=== PATIENT | male | born 1960 | race Caucasian/White ===

== ENCOUNTER → 2016-03-11 | Outpatient (CLI) | payer OTHER ==
--- NOTE | 2016-03-11 12:43 | XR ---
EXAMINATION TYPE: XR knee limited LT DATE OF EXAM: 03/11/2016 12:01 PM COMPARISON: NONE HISTORY: FINDINGS: Joint spaces are preserved. Osseous structures are intact. No acute fracture seen. IMPRESSION: 1. No acute fracture or dislocation.
== END | disposition home or self-care (01) ==
LOC: RADXRMAIN 11:43
PROVIDERS: ATTEND Family Medicine
DX: M25.562 Pain in left knee (principal)

== ENCOUNTER 2016-04-15 11:16 | Inpatient (IN) | payer OTHER ==
[2016-04-15 11:45] LABS: Glucose,Whole Blood 286 mg/dL (75-99)
[2016-04-15] MEDS ORDERED: ONDANSETRON 4 MG/2 ML VIAL IVP STA (11:49)
[2016-04-15] MEDS ORDERED: SODIUM CHLORIDE 0.9% 1,000 ML IV STA (11:49)
--- NOTE | 2016-04-15 11:52 | ED ---
General Adult HPI - General Chief complaint: Recheck/Abnormal Lab/Rx Stated complaint: Vomiting/high sugar Time Seen by Provider: 04/15/16 11:40 Source: patient, RN notes reviewed Mode of arrival: ambulatory Limitations: no limitations - History of Present Illness Initial comments: This is a 55-year-old male who presents to the emergency department with a past medical history significant for diabetes. Patient states he has been feeling weak and tired and nauseated for a week. Patient states today he started vomiting and felt much weaker. Patient denies any chest pain or palpitations. Patient denies any shortness of breath or difficulty breathing. Patient denies any fever chills or cough. Patient denies any abdominal pain. Patient denies any diarrhea. Patient denies headache patient denies numbness or focal weakness. Patient denies any lightheadedness dizziness or near syncopal episode. Patient denies any dysuria hematuria urinary frequency - Related Data Home Medications Medication Instructions Recorded Confirmed INSULIN LISPRO (humaLOG) [humaLOG See Protocol SQ ACHS 10/14/15 04/15/16 (formulary)] Omeprazole [PriLOSEC] 20 mg PO DAILY 10/14/15 04/15/16 Aspirin EC [Ecotrin Low Dose] 81 mg PO DAILY 11/03/15 04/15/16 Previous Rx's Medication Instructions Recorded Phenytoin Sodium Extended 200 mg PO BID #120 cap 09/01/14 [Dilantin] Simvastatin [Zocor] 20 mg PO HS #30 tab 09/01/14 Insulin NPH [humuLIN N] 30 unit SQ AC-BRKFST #0 11/05/15 Insulin NPH [humuLIN N] 35 unit SQ AC-SUPPER #1 vial 11/05/15 Ondansetron Odt [Zofran Odt] 4 mg PO Q8HR PRN #10 tab 01/28/16 Allergies Allergy/AdvReac Type Severity Reaction Status Date / Time No Known Allergies Allergy Verified 04/15/16 12:03 Review of Systems ROS Statement: Those systems with pertinent positive or pertinent negative responses have been documented in the HPI. ROS Other: All systems not noted in ROS Statement are negative. Past Medical History Past Medical History: Diabetes Mellitus, GERD/Reflux, Hyperlipidemia, Osteoarthritis (OA), Seizure Disorder Additional Past Medical History / Comment(s): Left knee arthritic. 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 Patient is nontoxic and well- hydrated and is in mild distress. ENT: Neck is soft and supple. No significant lymphadenopathy is noted. Oropharynx is clear. Dry mucous membranes no Neck has full range of motion without eliciting any pain. EYES: The sclera were anicteric and conjunctiva were pink and moist. Extraocular movements were intact and pupils were equal round and reactive to light. Eyelids were unremarkable. PULMONARY: Unlabored respirations. Good breath sounds bilaterally. No audible rales rhonchi or wheezing was noted. CARDIOVASCULAR: There is a regular rate and rhythm without any murmurs gallops or rubs. ABDOMEN: Soft and nontender with normal bowel sounds. No palpable organomegaly was noted. There is no palpable pulsatile mass. SKIN: Skin is clear with no lesions or rashes and otherwise unremarkable. NEUROLOGIC: Patient is alert and oriented x3. Cranial nerves II through XII are grossly intact. Motor and sensory are also intact. Normal speech, volume and content. Symmetrical smile. MUSCULOSKELETAL: Normal extremities with adequate strength and full range of motion. No lower extremity swelling or edema. No calf tenderness. LYMPHATICS: No significant lymphadenopathy is noted PSYCHIATRIC: Normal psychiatric evaluation. Limitations: no limitations Course Vital Signs 04/15/16 04/15/16 11:41 13:00 Temperature 97.9 F Pulse Rate 132 H 103 H Respiratory 18 20 Rate Blood Pressure 128/79 114/65 O2 Sat by Pulse 96 95 Oximetry Medical Decision Making - Medical Decision Making EKG shows normal sinus rhythm at 100 bpm [place] interval is 122 QRS is 88 QT interval is 340 QTC is 438. Patient's EKG shows no ST segment elevation or depression no T-wave abnormalities are noted. Patient's acetone was positive bicarb is was 19. Started patient on normal saline couple liters. I also started an infusion of insulin Spoke with Dr. Sweet and he agreed to admit the patient admitted the patient. - Lab Data Result diagrams: 04/15/16 12:10 04/15/16 12:10 Lab Results 04/15/16 04/15/16 04/15/16 Range/Units 11:42 12:10 12:10 WBC 7.8 (3.8-10.6) k/uL RBC 5.57 (4.30-5.90) m/uL Hgb 15.8 (13.0-17.5) gm/dL Hct 48.4 (39.0-53.0) % MCV 87.0 (80.0-100.0) fL MCH 28.4 (25.0-35.0) pg MCHC 32.7 (31.0-37.0) g/dL RDW 12.8 (11.5-15.5) % Plt Count 293 (150-450) k/uL Neutrophils % 80 % Lymphocytes % 14 % Monocytes % 4 % Eosinophils % 1 % Basophils % 1 % Neutrophils # 6.2 (1.3-7.7) k/uL Lymphocytes # 1.1 (1.0-4.8) k/uL Monocytes # 0.3 (0-1.0) k/uL Eosinophils # 0.0 (0-0.7) k/uL Basophils # 0.1 (0-0.2) k/uL Sodium 138 (137-145) mmol/L Potassium 4.5 (3.5-5.1) mmol/L Chloride 99 (98-107) mmol/L Carbon Dioxide 19 L (22-30) mmol/L Anion Gap 20 mmol/L BUN 15 (9-20) mg/dL Creatinine 0.84 (0.66-1.25) mg/dL Est GFR (MDRD) Af Amer >60 (>60 ml/min/1.73 sqM) Est GFR (MDRD) Non-Af >60 (>60 ml/min/1.73 sqM) Glucose 280 H (74-99) mg/dL POC Glucose (mg/dL) 286 H (75-99) mg/dL POC Glu Movie Operator ID Karrie Fuller Calcium 9.9 (8.4-10.2) mg/dL Total Bilirubin 0.7 (0.2-1.3) mg/dL AST 18 (17-59) U/L ALT 29 (21-72) U/L Alkaline Phosphatase 86 (38-126) U/L Total Protein 7.4 (6.3-8.2) g/dL Albumin 4.6 (3.5-5.0) g/dL Amylase 53 (30-110) U/L Lipase 92 (23-300) U/L Acetone, Qual Positive (Negative) Critical Care Time Critical Care Time: Yes Total Critical Care Time: 35 Disposition Clinical Impression: DKA (diabetic ketoacidoses) Disposition: ADMITTED IP TO THIS HOSP Referrals: Lucia Curry MD [Primary Care Provider] - 1-2 days Time of Disposition: 13:39
[2016-04-15 12:36] LABS: Basophils # (A) 0.1 k/uL (0-0.2); Basophils % (A) 1 %; CH 29.7; CHCM 34.3; Eosinophils % (A) 1 %; HCT 48.4 % (39.0-53.0); HDW 2.58; HGB 15.8 gm/dL (13.0-17.5); Luc # (Auto) 0.06; Luc % (Auto) 1; Lymphocytes # (A) 1.1 k/uL (1.0-4.8); Lymphocytes % (A) 14 %; MCH 28.4 pg (25.0-35.0); MCHC 32.7 g/dL (31.0-37.0); Monocytes # (A) 0.3 k/uL (0-1.0); Monocytes % (A) 4 %; Neutrophils # (A) 6.2 k/uL (1.3-7.7); Neutrophils % (A) 80 %; RBC 5.57 m/uL (4.30-5.90); RDW 12.8 % (11.5-15.5); WBC 7.8 k/uL (3.8-10.6); WBC (Perox) 7.29
[2016-04-15 12:52] LABS: ALT 29 U/L (21-72); AST 18 U/L (17-59); Alkaline Phosphatase 86 U/L (38-126); Amylase 53 U/L (30-110); Anion Gap 20 mmol/L; Blood Urea Nitrogen 15 mg/dL (9-20); Calcium 9.9 mg/dL (8.4-10.2); Carbon Dioxide 19 mmol/L (22-30); Chloride 99 mmol/L (98-107); Glucose 280 mg/dL (74-99); Non-African American GFR(MDRD) >60 (>60 ml/min/1.73 sqM); Potassium 4.5 mmol/L (3.5-5.1); Sodium 138 mmol/L (137-145); Total Bilirubin 0.7 mg/dL (0.2-1.3); Total Protein 7.4 g/dL (6.3-8.2)
[2016-04-15] MEDS ORDERED: INSULIN REGULAR 100 UNIT in SODIUM CHLORIDE 0.9% 100 ML IV ONE (13:39)
[2016-04-15] MEDS ORDERED: SODIUM CHLORIDE 0.9% 1,000 ML IV SCH (13:45)
[2016-04-15] MEDS ORDERED: D5-0.45% NACL WITH KCL 20MEQ/L 1,000 ML IV SCH (13:45)
[2016-04-15 14:00] LABS: Glucose,Whole Blood 143 mg/dL (75-99)
[2016-04-15 14:51] LABS: Glucose,Whole Blood 204 mg/dL (75-99)
[2016-04-15 16:14] LABS: Anion Gap 13 mmol/L; Blood Urea Nitrogen 12 mg/dL (9-20); Carbon Dioxide 20 mmol/L (22-30); Chloride 105 mmol/L (98-107); Glucose 150 mg/dL (74-99); Non-African American GFR(MDRD) >60 (>60 ml/min/1.73 sqM); Phosphorous 2.9 mg/dL (2.5-4.5); Potassium 4.2 mmol/L (3.5-5.1); Sodium 138 mmol/L (137-145)
[2016-04-15] MEDS: SODIUM CHLORIDE 0.9% 1,000 ML IV SCH ×2 (16:17→21:27)
[2016-04-15 16:34] LABS: ALT 27 U/L (21-72); AST 16 U/L (17-59); Alkaline Phosphatase 67 U/L (38-126); Calcium 8.4 mg/dL (8.4-10.2); Total Bilirubin 0.5 mg/dL (0.2-1.3); Total Protein 5.9 g/dL (6.3-8.2)
[2016-04-15 16:35] LABS: Glucose,Whole Blood 133 mg/dL (75-99)
[2016-04-15] MEDS: INSULIN LISPRO (humaLOG) 300 UNIT/3 ML VIAL SQ SCH ×2 (17:00→21:27)
[2016-04-15] MEDS ORDERED: INSULIN NPH 300 UNIT/3 ML VIAL SQ SCH (17:30)
--- NOTE | 2016-04-15 17:38 | P.HPIM ---
History of Present Illness H&P Date: 04/15/16 Chief Complaint: Intractable nausea This is a 55-year-old gentleman is currently insulin-dependent diabetic currently uses NPH 30 units in the morning and 35 units at night comes in the hospital with episode of intractable nausea to happen 24 hours prior to admission. pt apparently woke up this morning was able to check his blood glucose levels which were in the 400s. Patient was seen and was noted to have positive ketones. Patient's bicarb was 19 however had low chloride causing a anion gap Bolick acidosis. Patient was admitted in the past for DKA there was some concern over compliance in the past as well. Patient does have some financial difficulty difficulties as patient was recently released from incarceration and currently lives at a long term house. Patient states that he has run out of his insulin at this time. At the time of my examination patient denies having any fevers chills nausea vomiting urinary urgency or frequency or constipation or diarrhea. Review of Systems All systems: negative (Noted in HPI) Past Medical History Past Medical History: Diabetes Mellitus, GERD/Reflux, Hyperlipidemia, Osteoarthritis (OA), Seizure Disorder Additional Past Medical History / Comment(s): Left knee arthritic. 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 Past Anesthesia/Blood Transfusion Reactions: No Reported Reaction Past Psychological History: No Psychological Hx Reported Smoking Status: Never smoker Past Alcohol Use History: None Reported Past Drug Use History: None Reported - Past Family History Father Family Medical History: Diabetes Mellitus, Myocardial Infarction ([place]) Additional Family Medical History / Comment(s): AT AGE 57 Mother Family Medical History: Cancer Medications and Allergies Home Medications Medication Instructions Recorded Confirmed Type INSULIN LISPRO (humaLOG) [humaLOG See Protocol SQ ACHS 10/14/15 04/15/16 History (formulary)] Omeprazole [PriLOSEC] 20 mg PO DAILY 10/14/15 04/15/16 History Aspirin EC [Ecotrin Low Dose] 81 mg PO DAILY 11/03/15 04/15/16 History Allergies Allergy/AdvReac Type Severity Reaction Status Date / Time No Known Allergies Allergy Verified 04/15/16 12:03 Physical Exam Vitals: Vital Signs Temp Pulse Pulse Resp BP BP Pulse Ox 02/07/17 14:30 97.7 F 90 16 119/64 99 04/15/16 14:29 98.3 F 91 20 119/66 96 04/15/16 14:14 98.3 F 04/15/16 13:59 98 20 118/64 95 Intake and Output 04/15/16 04/15/16 04/15/16 06:59 14:59 22:59 Intake Total 1000 240 Balance 1000 240 Intake: IV 1000 Invasive Line 1 1000 Oral 240 Other: Voiding Method Urinal Physical exam Gen. appearance oriented 3 in no distress Neck is supple no JVD Lungs good air entry clear to auscultation no rhonchi or wheezing Heart S1-S2 heard regular rate and rhythm no murmurs appreciated Abdomen is soft nontender no organomegaly bowel sounds are intact Neurologically cranial nerves II-12 grossly intact no focal motor or sensory deficits noted Skin no abnormalities appreciated Results CBC & Chem 7: 04/15/16 12:10 04/15/16 15:33 Labs: Abnormal Lab Results - Last 24 Hours (Table) 04/15/16 04/15/16 04/15/16 Range/Units 13:58 14:47 15:33 Carbon Dioxide 20 L (22-30) mmol/L Creatinine 0.63 L (0.66-1.25) mg/dL Glucose 150 H (74-99) mg/dL POC Glucose (mg/dL) 143 H 204 H (75-99) mg/dL AST 16 L (17-59) U/L Total Protein 5.9 L (6.3-8.2) g/dL 04/15/16 Range/Units 16:22 Carbon Dioxide (22-30) mmol/L Creatinine (0.66-1.25) mg/dL Glucose (74-99) mg/dL POC Glucose (mg/dL) 133 H (75-99) mg/dL AST (17-59) U/L Total Protein (6.3-8.2) g/dL Assessment and Plan Plan: #1 mild diabetic ketoacidosis #2 intractable nausea secondary to above #3 insulin-dependent diabetes #4 history of seizure disorder #5 remote history of tobacco use Plan Patient will have repeat electrolytes. Home regimen will be started. Social work consult has been placed. Diabetic education educator will also be consulted. Patient is currently asymptomatic diet will be restarted. Patient will be given IV fluid resuscitation. We'll need social work to provide the patient with some financial resources for outpatient diabetic supplies. Will likely be discharged in the next 24 hours.
[2016-04-15 20:39] LABS: Glucose,Whole Blood 224 mg/dL (75-99)
[2016-04-15] MEDS ORDERED: ATORVASTATIN 10 MG TAB PO SCH (21:00)
[2016-04-15 21:15] LABS: Anion Gap 11 mmol/L; Blood Urea Nitrogen 10 mg/dL (9-20); Carbon Dioxide 20 mmol/L (22-30); Chloride 105 mmol/L (98-107); Glucose 206 mg/dL (74-99); Non-African American GFR(MDRD) >60 (>60 ml/min/1.73 sqM); Sodium 136 mmol/L (137-145)
[2016-04-15] MEDS: PHENYTOIN SODIUM EXTENDED 100 MG CAP PO SCH (21:27)
[2016-04-15 22:49] LABS: Hemoglobin A1C 12.7 % (4.2-6.1)
[2016-04-16] MEDS: SODIUM CHLORIDE 0.9% 1,000 ML IV SCH ×2 (04:39→13:22)
[2016-04-16 05:58] LABS: Glucose,Whole Blood 54 mg/dL (75-99)
[2016-04-16 06:09] LABS: Appearance,Urine Clear (Clear); Bilirubin,Urine Negative (Negative); Glucose,Urine (UA) 3+ (Negative); Ketones,Urine 1+ (Negative); Leukocyte Esterase,Urine Negative (Negative); Nitrite,Urine Negative (Negative); PH, Urine 5.5 (5.0-8.0); Protein,Urine Negative (Negative); Specific Gravity,Urine 1.009 (1.001-1.035); UA Billing (MACRO vs. MICRO) CHEM; Urobilinogen,Urine <2.0 mg/dL (<2.0)
[2016-04-16 06:23] LABS: Glucose,Whole Blood 145 mg/dL (75-99)
[2016-04-16 06:24] LABS: Basophils # (A) 0.1 k/uL (0-0.2); Basophils % (A) 1 %; CH 29.3; CHCM 33.1; Eosinophils # (A) 0.1 k/uL (0-0.7); Eosinophils % (A) 2 %; HCT 46.9 % (39.0-53.0); HDW 2.49; HGB 15.1 gm/dL (13.0-17.5); Luc # (Auto) 0.23; Luc % (Auto) 4; Lymphocytes # (A) 2.5 k/uL (1.0-4.8); Lymphocytes % (A) 39 %; MCH 28.5 pg (25.0-35.0); MCHC 32.1 g/dL (31.0-37.0); MCV 88.9 fL (80.0-100.0); Mean Platelet Volume 6.6; Monocytes # (A) 0.3 k/uL (0-1.0); Monocytes % (A) 5 %; Neutrophils # (A) 3.1 k/uL (1.3-7.7); Neutrophils % (A) 50 %; RBC 5.28 m/uL (4.30-5.90); WBC 6.3 k/uL (3.8-10.6); WBC (Perox) 6.56
[2016-04-16] MEDS: INSULIN LISPRO (humaLOG) 300 UNIT/3 ML VIAL SQ SCH ×2 (06:33→13:21)
[2016-04-16 06:43] LABS: ALT 35 U/L (21-72); AST 19 U/L (17-59); Alkaline Phosphatase 68 U/L (38-126); Anion Gap 13 mmol/L; Blood Urea Nitrogen 8 mg/dL (9-20); Calcium 8.5 mg/dL (8.4-10.2); Carbon Dioxide 22 mmol/L (22-30); Chloride 108 mmol/L (98-107); Glucose 55 mg/dL (74-99); Non-African American GFR(MDRD) >60 (>60 ml/min/1.73 sqM); Potassium 3.9 mmol/L (3.5-5.1); Sodium 143 mmol/L (137-145); Total Bilirubin 0.5 mg/dL (0.2-1.3); Total Protein 6.1 g/dL (6.3-8.2)
[2016-04-16] MEDS ORDERED: INSULIN NPH 300 UNIT/3 ML VIAL SQ SCH (07:30)
[2016-04-16] MEDS: PHENYTOIN SODIUM EXTENDED 100 MG CAP PO SCH (09:33)
[2016-04-16 11:36] VITALS: BP 125/68; PULSE 76; RESP 16; TEMP 97.1
[2016-04-16 11:37] VITALS: BMI 20.3
[2016-04-16 11:56] LABS: Glucose,Whole Blood 335 mg/dL (75-99)
[2016-04-16 14:51] LABS: Hemoglobin A1C 12.8 % (4.2-6.1)
--- NOTE | 2016-04-16 20:18 | P.DS ---
Providers Date of admission: 04/15/16 13:40 Attending physician: Sánchez Sweet MD Primary care physician: [facility] Course: Chief Complaint: Intractable nausea This is a 55-year-old gentleman is currently insulin-dependent diabetic currently uses NPH 30 units in the morning and 35 units at night comes in the hospital with episode of intractable nausea to happen 24 hours prior to admission. pt apparently woke up this morning was able to check his blood glucose levels which were in the 400s. Patient was seen and was noted to have positive ketones. Patient's bicarb was 19 however had low chloride causing a anion gap Bolick acidosis. Patient was admitted in the past for DKA there was some concern over compliance in the past as well. Patient does have some financial difficulty difficulties as patient was recently released from incarceration and currently lives at a long term house. Patient states that he has run out of his insulin at this time. At the time of my examination patient denies having any fevers chills nausea vomiting urinary urgency or frequency or constipation or diarrhea. On the day of the discharge No symptoms were reported. States to be tolerating diet. Physical exam Gen. appearance oriented 3 in no distress Neck is supple no JVD Lungs good air entry clear to auscultation no rhonchi or wheezing Heart S1-S2 heard regular rate and rhythm no murmurs appreciated Abdomen is soft nontender no organomegaly bowel sounds are intact Neurologically cranial nerves II-12 grossly intact no focal motor or sensory deficits noted Skin no abnormalities appreciated Assessment and Plan Plan: #1 mild diabetic ketoacidosis, improved. sec to non compliance as pt ran out of supplies #2 intractable nausea secondary to above #3 insulin-dependent diabetes #4 history of seizure disorder #5 remote history of tobacco use Discussed importance of compliance. Plan - Discharge Summary New Discharge Prescriptions: Insulin NPH [humuLIN N] 30 unit SQ AC-BRKFST #1 vial Insulin NPH [humuLIN N] 35 unit SQ AC-SUPPER #1 vial Discharge Medication List Phenytoin Sodium Extended [Dilantin] 200 mg PO BID #120 cap 09/01/14 [Rx] Simvastatin [Zocor] 20 mg PO HS #30 tab 09/01/14 [Rx] INSULIN LISPRO (humaLOG) [humaLOG (formulary)] See Protocol SQ ACHS 10/14/15 [ History] Omeprazole [PriLOSEC] 20 mg PO DAILY 10/14/15 [History] Aspirin EC [Ecotrin Low Dose] 81 mg PO DAILY 11/03/15 [History] Ondansetron Odt [Zofran ODT] 4 mg PO Q8HR PRN #10 tab 01/28/16 [Rx] Insulin NPH [humuLIN N] 30 unit SQ AC-BRKFST #1 vial 04/16/16 [Rx] Insulin NPH [humuLIN N] 35 unit SQ AC-SUPPER #1 vial 04/16/16 [Rx] Follow up Appointment(s)/Referral(s): Lucia Curry MD [Primary Care Provider] - 04/18/16 11:15 am Patient Instructions/Handouts: Diabetic Ketoacidosis (DC), Type 1 Diabetes in Adults (DC) Discharge Disposition: HOME WITH HOME HEALTH SERVICES
== END 2016-04-16 16:38 | disposition home or self-care (01) | DRG 639 ==
LOC: EC 11:16 → 6SEL 13:40
PROVIDERS: ADMIT Internal Medicine; ATTEND Internal Medicine
DX: E13.10 Other specified diabetes mellitus with ketoacidosis without coma (principal); E78.5 Hyperlipidemia, unspecified; Z91.19 Patient's noncompliance with other medical treatment and regimen; K21.9 Gastro-esophageal reflux disease without esophagitis; M19.90 Unspecified osteoarthritis, unspecified site; G40.909 Epilepsy, unspecified, not intractable, without status epilepticus; Z79.4 Long term (current) use of insulin; Z83.3 Family history of diabetes mellitus; Z87.891 Personal history of nicotine dependence; Z79.82 Long term (current) use of aspirin; Z79.899 Other long term (current) drug therapy
CPT/HCPCS: 36415; 80051; 80053; 81003; 82009; 82150; 82565; 82947; 83036; 83690; 84100; 84520; 85025; 93005; 96361; 96375; 99291

== ENCOUNTER 2016-11-19 07:31 | Day surgery (SDC) | payer OTHER ==
[2016-11-17 11:40] VITALS: BMI 19.6
[~2016-11-19 07:31] MED LIST: LACTATED RINGERS 1,000 ML IV SCH
[2016-11-19 07:51] VITALS: RESP 16; TEMP 97
[2016-11-19 07:51] LABS: Glucose,Whole Blood 262 mg/dL (75-99)
[2016-11-19] MEDS ORDERED: LIDOCAINE 1% 20 ML VIAL (10MG/ML) FOR IV START INTRADERMA ONE (07:53)
[2016-11-19] MEDS ORDERED: PROPOFOL 10 MG/ML 20 ML VIAL IV ONE (09:06)
--- NOTE | 2016-11-19 09:14 | P.GSHP ---
History of Present Illness H&P Date: 11/19/16 Chief Complaint: Screening colonoscopy Assessment 56-year-old male referred from Dr. Curry. He presents today for screening colonoscopy. He's never had a colonoscopy before. 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 Past Anesthesia/Blood Transfusion Reactions: No Reported Reaction Smoking Status: Never smoker - Past Family History Father Family Medical History: Diabetes Mellitus, Myocardial Infarction ([place]) Additional Family Medical History / Comment(s): AT AGE 57 Mother Family Medical History: Cancer Medications and Allergies Home Medications Medication Instructions Recorded Confirmed Type Cetirizine HCl 10 mg PO DAILY 11/17/16 11/19/16 History Insulin NPH [humuLIN N] 30 unit SQ AC-BID 11/17/16 11/19/16 History Losartan Potassium 100 mg PO DAILY 11/17/16 11/19/16 History Phenytoin Sodium Extended 100 mg PO QID 11/17/16 11/19/16 History [Dilantin] Simvastatin [Zocor] 40 mg PO HS 11/17/16 11/19/16 History metFORMIN HCL [Glucophage] 500 mg PO BID 11/17/16 11/19/16 History Allergies Allergy/AdvReac Type Severity Reaction Status Date / Time No Known Allergies Allergy Verified 11/17/16 11:31 Surgical - Exam Vital Signs Temp Pulse Resp Pulse Ox 97 F L 101 H 16 97 11/19/16 07:48 11/19/16 07:48 11/19/16 07:48 11/19/16 07:48 - General well developed, no distress - Eyes PERRL - ENT normal pinna - Neck no masses - Respiratory normal expansion - Cardiovascular Rhythm: regular - Abdomen Abdomen: soft, non tender Results - Labs Abnormal Lab Results - Last 24 Hours (Table) 11/19/16 Range/Units 07:48 POC Glucose (mg/dL) 262 H (75-99) mg/dL Assessment and Plan Plan: We'll perform screening colonoscopy.
--- NOTE | 2016-11-19 09:24 | P.OP ---
Date of Procedure: 11/19/16 Preoperative Diagnosis: Screening colonoscopy Postoperative Diagnosis: Normal colon Procedure(s) Performed: Colonoscopy Anesthesia: MAC Surgeon: Gerry Gonzalez Pathology: none sent Condition: stable Disposition: PACU Description of Procedure: PROCEDURE: The patient was placed on the endoscopy table in the lateral position. Digital rectal examination was performed which revealed no abnormalities. The prostate was symmetrical without nodules. Flexible colonoscope was then placed in the patient's anus and passed throughout the entire colon. The ileocecal valve was visualized. The cecum, ascending, transverse, descending and sigmoid colon were normal. The rectum was normal as well. There were no masses, polyps or diverticula noted in the entire colon. SUMMARY OF FINDINGS: Normal colonoscopy.
[2016-11-19 09:38] LABS: Glucose,Whole Blood 267 mg/dL (75-99)
[2016-11-19 09:54] VITALS: BP 112/67; PULSE 86
== END 2016-11-19 09:57 | disposition home or self-care (01) ==
LOC: ORWHC2ENDO 07:31
PROVIDERS: ATTEND Surgery
DX: Z12.11 Encounter for screening for malignant neoplasm of colon (principal); E78.5 Hyperlipidemia, unspecified; G40.909 Epilepsy, unspecified, not intractable, without status epilepticus; M19.90 Unspecified osteoarthritis, unspecified site; K21.9 Gastro-esophageal reflux disease without esophagitis; E11.9 Type 2 diabetes mellitus without complications; Z79.84 Long term (current) use of oral hypoglycemic drugs; Z79.4 Long term (current) use of insulin; Z79.899 Other long term (current) drug therapy; Z82.49 Family history of ischemic heart disease and other diseases of the circulatory system
CPT/HCPCS: J2704; G0121; 45378

== ENCOUNTER → 2016-12-29 | Outpatient (CLI) | payer OTHER ==
[2016-12-29 15:23] LABS: Basophils # (A) 0.1 k/uL (0-0.2); Basophils % (A) 1 %; CH 30.4; CHCM 33.5; Eosinophils # (A) 0.1 k/uL (0-0.7); Eosinophils % (A) 1 %; HCT 45.7 % (39.0-53.0); Luc # (Auto) 0.12; Luc % (Auto) 2; Lymphocytes # (A) 1.3 k/uL (1.0-4.8); Lymphocytes % (A) 20 %; MCHC 32.9 g/dL (31.0-37.0); MCV 91.1 fL (80.0-100.0); Mean Platelet Volume 6.9; Monocytes # (A) 0.4 k/uL (0-1.0); Monocytes % (A) 6 %; Neutrophils # (A) 4.7 k/uL (1.3-7.7); Neutrophils % (A) 71 %; RBC 5.01 m/uL (4.30-5.90); RDW 12.6 % (11.5-15.5); WBC 6.6 k/uL (3.8-10.6); WBC (Perox) 6.07
[2016-12-29 15:26] LABS: ALT 27 U/L (21-72); AST 15 U/L (17-59); Alkaline Phosphatase 103 U/L (38-126); Anion Gap 11 mmol/L; Blood Urea Nitrogen 15 mg/dL (9-20); Calcium 9.9 mg/dL (8.4-10.2); Carbon Dioxide 26 mmol/L (22-30); Chloride 95 mmol/L (98-107); Non-African American GFR(MDRD) >60 (>60 ml/min/1.73 sqM); Potassium 4.7 mmol/L (3.5-5.1); Sodium 132 mmol/L (137-145); Total Bilirubin 0.4 mg/dL (0.2-1.3); Total Protein 6.8 g/dL (6.3-8.2)
[2016-12-29 15:40] LABS: Glucose 464 mg/dL (74-99)
== END | disposition home or self-care (01) ==
LOC: LABWHC1 14:42
PROVIDERS: ATTEND Nurse Practitioner Acute Care
DX: G40.909 Epilepsy, unspecified, not intractable, without status epilepticus (principal); E55.9 Vitamin D deficiency, unspecified; R41.3 Other amnesia
CPT/HCPCS: 36415; 80053; 80185; 82306; 85025

== ENCOUNTER 2017-01-27 11:22 | Emergency (ER) | payer OTHER ==
--- NOTE | 2017-01-27 12:12 | ED ---
Psych HPI - General Chief Complaint: Psychiatric Symptoms Stated Complaint: Mental Health Time Seen by Provider: 01/27/17 11:29 Source: patient, RN notes reviewed Mode of arrival: ambulatory Limitations: no limitations - History of Present Illness Initial Comments: This is a 56-year-old male presents emergency Department with chief complaint of depression suicidal thoughts. His been having worsening depression with suicidal thoughts over the last month. . Patient states he has not tried to harm himself. Patient states that he is very depressed because of his health conditions and states that he cannot help with social security. Patient denies any physical harm at this time denies illicit drug use or alcohol abuse. - Related Data Home Medications Medication Instructions Recorded Confirmed Losartan Potassium 100 mg PO DAILY 11/17/16 01/27/17 Phenytoin Sodium Extended 200 mg PO BID 11/17/16 01/27/17 [Dilantin] Simvastatin [Zocor] 40 mg PO HS 11/17/16 01/27/17 metFORMIN HCL [Glucophage] 500 mg PO BID 11/17/16 01/27/17 Insulin NPH Human Isophane 20 unit SQ AC-SUPPER 01/27/17 01/27/17 [NovoLIN N] Insulin NPH Human Isophane 30 unit SQ AC-BRKFST 01/27/17 01/27/17 [NovoLIN N] Allergies Allergy/AdvReac Type Severity Reaction Status Date / Time No Known Allergies Allergy Verified 01/27/17 11:42 Review of Systems ROS Statement: Those systems with pertinent positive or pertinent negative responses have been documented in the HPI. ROS Other: All systems not noted in ROS Statement are negative. 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 Absent: scleral icterus, conjunctival injection, periorbital swelling ENT exam: Present: normal exam, normal oropharynx, mucous membranes moist, TM's normal bilaterally, normal external ear exam Neck exam: Present: normal inspection, full ROM. Absent: tenderness, meningismus, lymphadenopathy Respiratory exam: Present: normal lung sounds bilaterally. Absent: respiratory distress, wheezes, rales, rhonchi, stridor Cardiovascular Exam: Present: regular rate, normal rhythm, normal heart sounds. Absent: systolic murmur, diastolic murmur, rubs, gallop, clicks Back exam: Absent: CVA tenderness (R), CVA tenderness (L) Neurological exam: Present: alert, oriented X3, CN II-XII intact Psychiatric exam: Present: depressed Skin exam: Present: warm, dry, intact, normal color. Absent: rash Course Vital Signs 01/27/17 11:25 Temperature 98.3 F Pulse Rate 121 H Respiratory 18 Rate Blood Pressure 135/63 O2 Sat by Pulse 99 Oximetry Medical Decision Making - Medical Decision Making 56-year-old male presented for psychiatric evaluation. Patient does have depression. Patient states that he has is because he cannot get Social Security. Patient states he came in to try to obtain Social Security not that he actually wants to harm himself. Patient will be discharged return parameters were discussed. - Lab Data Lab Results 01/27/17 Range/Units 12:25 Urine Opiates Screen Not Detected (NotDetected) Ur Oxycodone Screen Not Detected (NotDetected) Urine Methadone Screen Not Detected (NotDetected) Ur Propoxyphene Screen Not Detected (NotDetected) Ur Barbiturates Screen Detected H (NotDetected) U Tricyclic Antidepress Not Detected (NotDetected) Ur Phencyclidine Scrn Not Detected (NotDetected) Ur Amphetamines Screen Not Detected (NotDetected) U Methamphetamines Scrn Not Detected (NotDetected) U Benzodiazepines Scrn Not Detected (NotDetected) Urine Cocaine Screen Not Detected (NotDetected) U Marijuana (THC) Screen Not Detected (NotDetected) Disposition Clinical Impression: Depression Disposition: HOME SELF-CARE Condition: Stable Instructions: Depression (ED) Additional Instructions: Please return to the Emergency Department if symptoms worsen or any other concerns. Referrals: Yaw Manzanares MD [Primary Care Provider] - 1-2 days Time of Disposition: 14:24
[2017-01-27 15:33] VITALS: BP 138/80; PULSE 100; RESP 20; TEMP 98.6
== END 2017-01-27 15:33 | disposition home or self-care (01) ==
LOC: EC 11:22
DX: F32.9 Major depressive disorder, single episode, unspecified (principal); E11.9 Type 2 diabetes mellitus without complications; E78.5 Hyperlipidemia, unspecified; Z86.69 Personal history of other diseases of the nervous system and sense organs; Z79.4 Long term (current) use of insulin; Z79.899 Other long term (current) drug therapy
CPT/HCPCS: 80306; 82075; 99284

== ENCOUNTER 2017-06-04 14:40 | Inpatient (IN) | payer OTHER ==
[2017-06-04] MEDS ORDERED: ONDANSETRON 4 MG/2 ML VIAL IVP PRN (15:15)
[2017-06-04] MEDS: SODIUM CHLORIDE 0.9% 1,000 ML IV SCH (15:40)
--- NOTE | 2017-06-04 16:05 | XR ---
2 view abdomen HISTORY: Nausea and vomiting 2 views of the abdomen, no comparisons Lung bases are clear. There is retained fecal debris present throughout the transverse colon. No evid ent bowel obstruction or pneumoperitoneum. Bone mineralization maintained. IMPRESSION: Nonobstructive bowel gas pattern.
--- NOTE | 2017-06-04 16:06 | XR ---
EXAMINATION TYPE: XR chest 2V DATE OF EXAM: 06/04/2017 COMPARISON: Prior chest 01/28/2016, 10/09/2016 HISTORY: Shortness of breath TECHNIQUE: Frontal and lateral views of the chest are obtained. FINDINGS: There is no focal air space opacity, pleural effusion, or pneumothorax seen. The cardiac silhouette size is within normal limits. The osseous structures are intact. IMPRESSION: No acute cardiopulmonary process.
[2017-06-04 16:29] LABS: Basophils % (A) 0 %; Eosinophils % (A) 0 %; HCT 49.4 % (39.0-53.0); HGB 15.7 gm/dL (13.0-17.5); Lymphocytes # (A) 0.7 k/uL (1.0-4.8); Lymphocytes % (A) 12 %; MCHC 31.9 g/dL (31.0-37.0); MCV 90.9 fL (80.0-100.0); Mean Platelet Volume 7.1; Monocytes # (A) 0.2 k/uL (0-1.0); Monocytes % (A) 3 %; Neutrophils # (A) 4.9 k/uL (1.3-7.7); Neutrophils % (A) 83 %; Platelet Count 364 k/uL (150-450); RBC 5.43 m/uL (4.30-5.90); RDW 12.7 % (11.5-15.5); WBC 5.9 k/uL (3.8-10.6)
[2017-06-04 16:44] LABS: Glucose,Whole Blood 351 mg/dL (75-99)
[2017-06-04 17:09] LABS: ALT 23 U/L (21-72); AST 20 U/L (17-59); Albumin 4.5 g/dL (3.5-5.0); Alkaline Phosphatase 98 U/L (38-126); Anion Gap 28 mmol/L; Blood Urea Nitrogen 19 mg/dL (9-20); Calcium 9.9 mg/dL (8.4-10.2); Carbon Dioxide 12 mmol/L (22-30); Chloride 96 mmol/L (98-107); Glucose 357 mg/dL (74-99); Sodium 136 mmol/L (137-145); Total Bilirubin 0.4 mg/dL (0.2-1.3); Total Protein 7.1 g/dL (6.3-8.2)
[2017-06-04] MEDS: INSULIN NPH 300 UNIT/3 ML VIAL SQ SCH (17:18)
[2017-06-04] MEDS: INSULIN ASPART 100 UNIT/ML 1 ML 10 ML VIAL SQ SCH ×2 (17:18→22:13)
[2017-06-04 21:10] LABS: Glucose,Whole Blood 218 mg/dL (75-99)
[2017-06-04] MEDS: PHENYTOIN SODIUM EXTENDED 100 MG CAP PO SCH (22:06)
[2017-06-04] MEDS: ATORVASTATIN 20 MG TAB PO SCH (22:07)
[2017-06-04] MEDS: metFORMIN 500 MG TAB PO SCH (22:07)
[2017-06-05] MEDS: SODIUM CHLORIDE 0.9% 1,000 ML IV SCH ×3 (00:20→21:56)
[2017-06-05 03:29] LABS: Hemoglobin A1C 15.5 % (4.0-6.0)
[2017-06-05] MEDS ORDERED: DEXTROSE 50%-WATER 50 ML SYRINGE IVP ONE (07:14)
[2017-06-05] MEDS: INSULIN ASPART 100 UNIT/ML 1 ML 10 ML VIAL SQ SCH ×4 (07:21→21:04)
[2017-06-05] MEDS: INSULIN NPH 300 UNIT/3 ML VIAL SQ SCH ×2 (07:21→18:06)
[2017-06-05 07:35] LABS: Glucose,Whole Blood 45 mg/dL (75-99)
[2017-06-05 07:35] LABS: Glucose,Whole Blood 168 mg/dL (75-99)
[2017-06-05 07:35] LABS: Glucose,Whole Blood 43 mg/dL (75-99)
[2017-06-05] MEDS: metFORMIN 500 MG TAB PO SCH ×2 (08:05→21:08)
[2017-06-05] MEDS: PHENYTOIN SODIUM EXTENDED 100 MG CAP PO SCH ×2 (08:05→21:08)
[2017-06-05] MEDS: LOSARTAN 50 MG TAB PO SCH (08:05)
[2017-06-05 10:04] LABS: Glucose,Whole Blood 333 mg/dL (75-99)
--- NOTE | 2017-06-05 10:31 | P.GSCN ---
History of Present Illness Consult date: 06/05/17 Reason for Consult: 57-year-old male seen at the request of the attending for a surgical eval patient is a poor historian has poor past medical history recall states he was seen in his PCPs office couple days before for routine checkup and everything was fine" he stated yesterday that was a message left on his answering machine that he needed to come to his PCPs office because his blood sugar was elevated patient stated he did not have any abdominal pain no nausea vomiting. Went to the office was told his blood sugar was in the 600s and he needed to be admitted to the hospital. patient currently is resting comfortably in bed and is adamant that he has not had any abdominal pain denies dizziness lightheadedness and states a nausea sensation has subsided. The blood sugar at 7 AM this morning was down to 43 in which this was treated. Currently is 333. Patient states he does have a glucometer at home when he does check his blood sugars periodically. D-dimer was not elevated 0.19 patient states to his knowledge doesn't have any surgical history. past medical history hyperlipidemia, osteoarthritis, seizure disorder, type 2 diabetes Review the computerized record indicated in November 2016 patient did have a colonoscopy it's showed a normal colon this was done by Dr. reyes. 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 Past Anesthesia/Blood Transfusion Reactions: No Reported Reaction Past Psychological History: No Psychological Hx Reported Smoking Status: Never smoker Past Alcohol Use History: None Reported Past Drug Use History: None Reported - Past Family History Father Family Medical History: Diabetes Mellitus, Myocardial Infarction ([place]) Additional Family Medical History / Comment(s): AT AGE 57 Mother Family Medical History: Cancer Medications and Allergies Home Medications Medication Instructions Recorded Confirmed Type Losartan Potassium 100 mg PO DAILY 11/17/16 06/04/17 History Phenytoin Sodium Extended 200 mg PO BID 11/17/16 06/04/17 History [Dilantin] Simvastatin [Zocor] 40 mg PO HS 11/17/16 06/04/17 History metFORMIN HCL [Glucophage] 500 mg PO BID 11/17/16 06/04/17 History Insulin NPH Human Isophane 20 unit SQ AC-SUPPER 01/27/17 06/04/17 History [NovoLIN N] Insulin NPH Human Isophane 30 unit SQ AC-BRKFST 01/27/17 06/04/17 History [NovoLIN N] Allergies Allergy/AdvReac Type Severity Reaction Status Date / Time No Known Allergies Allergy Verified 06/04/17 15:18 Surgical - Exam Vital Signs Temp Pulse Resp BP Pulse Ox 98.5 F 130 H 18 131/65 95 06/04/17 15:00 06/04/17 15:00 06/04/17 15:00 06/04/17 15:00 06/04/17 15:00 GENERAL APPEARANCE: 57-year-old male patient is alert, oriented, in no acute distress. VITAL SIGNS: reviewed HEENT: Head is normocephalic and atraumatic. Pupils are equal and reactive. The nares are patent. Oropharynx is clear without lesions. NECK: Supple without lymphadenopathy. Traches midline. HEART: S1, S2. Regular rate and rhythm. denying chest pain LUNGS: No crackles or wheezes are heard. no shortness of breath ABDOMEN: Soft, flat nontender, nondistended with good bowel sounds. No peritoneal signs. No palpable organomegaly or masses. denying any nausea vomiting denies abdominal pain EXTREMITIES: Normal skin color and turgor. No cyanosis, rash, ulceration, clubbing or edema. Radial pedal pulses are 2/4 bilaterally. NEUROLOGICAL: No focal deficits. Strength and sensation are grossly intact. Results - Labs 06/04/17 16:13 06/04/17 16:13 Abnormal Lab Results - Last 24 Hours (Table) 06/04/17 06/04/17 06/04/17 Range/Units 16:13 16:13 16:13 Lymphocytes # 0.7 L (1.0-4.8) k/uL Sodium 136 L (137-145) mmol/L Potassium 6.0 H (3.5-5.1) mmol/L Chloride 96 L (98-107) mmol/L Carbon Dioxide 12 L (22-30) mmol/L Glucose 357 H (74-99) mg/dL POC Glucose (mg/dL) (75-99) mg/dL Hemoglobin A1c 15.5 H (4.0-6.0) % 06/04/17 06/04/17 06/05/17 Range/Units 16:40 21:08 07:10 Lymphocytes # (1.0-4.8) k/uL Sodium (137-145) mmol/L Potassium (3.5-5.1) mmol/L Chloride (98-107) mmol/L Carbon Dioxide (22-30) mmol/L Glucose (74-99) mg/dL POC Glucose (mg/dL) 351 H 218 H 45 L (75-99) mg/dL Hemoglobin A1c (4.0-6.0) % 06/05/17 06/05/17 06/05/17 Range/Units 07:11 07:31 09:48 Lymphocytes # (1.0-4.8) k/uL Sodium (137-145) mmol/L Potassium (3.5-5.1) mmol/L Chloride (98-107) mmol/L Carbon Dioxide (22-30) mmol/L Glucose (74-99) mg/dL POC Glucose (mg/dL) 43 L 168 H 333 H (75-99) mg/dL Hemoglobin A1c (4.0-6.0) % Diabetes panel 06/04/17 06/04/17 Range/Units 16:13 16:13 Sodium 136 L (137-145) mmol/L Potassium 6.0 H (3.5-5.1) mmol/L Chloride 96 L (98-107) mmol/L Carbon Dioxide 12 L (22-30) mmol/L BUN 19 (9-20) mg/dL Creatinine 0.84 (0.66-1.25) mg/dL Glucose 357 H (74-99) mg/dL Hemoglobin A1c 15.5 H (4.0-6.0) % Calcium 9.9 (8.4-10.2) mg/dL AST 20 (17-59) U/L ALT 23 (21-72) U/L Alkaline Phosphatase 98 (38-126) U/L Total Protein 7.1 (6.3-8.2) g/dL Albumin 4.5 (3.5-5.0) g/dL Calcium panel 06/04/17 Range/Units 16:13 Calcium 9.9 (8.4-10.2) mg/dL Albumin 4.5 (3.5-5.0) g/dL Pituitary panel 06/04/17 Range/Units 16:13 Sodium 136 L (137-145) mmol/L Potassium 6.0 H (3.5-5.1) mmol/L Chloride 96 L (98-107) mmol/L Carbon Dioxide 12 L (22-30) mmol/L BUN 19 (9-20) mg/dL Creatinine 0.84 (0.66-1.25) mg/dL Glucose 357 H (74-99) mg/dL Calcium 9.9 (8.4-10.2) mg/dL Adrenal panel 06/04/17 Range/Units 16:13 Sodium 136 L (137-145) mmol/L Potassium 6.0 H (3.5-5.1) mmol/L Chloride 96 L (98-107) mmol/L Carbon Dioxide 12 L (22-30) mmol/L BUN 19 (9-20) mg/dL Creatinine 0.84 (0.66-1.25) mg/dL Glucose 357 H (74-99) mg/dL Calcium 9.9 (8.4-10.2) mg/dL Total Bilirubin 0.4 (0.2-1.3) mg/dL AST 20 (17-59) U/L ALT 23 (21-72) U/L Alkaline Phosphatase 98 (38-126) U/L Total Protein 7.1 (6.3-8.2) g/dL Albumin 4.5 (3.5-5.0) g/dL Assessment and Plan Assessment: impression Present on admission nausea vomiting diarrhea suspect gastroenteritis Present on admission hyperglycemia a screening colonoscopy done November 2016 normal history of a seizure disorder history of esophageal reflux disease hyperlipidemia plan no evidence of an acute surgical abdomen defer to the attending for medical issues DVT and GI prophylaxis attempt to optimize glycemic control reinforce diabetic education will follow with you surgical consultation note dictated for dr reyes The above impression and plan of care have been discussed and directed by signing physician. Vidya Ta nurse practitioner acting as scribe for signing physician.
[2017-06-05 10:46] LABS: Basophils % (A) 1 %; Eosinophils % (A) 1 %; HCT 41.4 % (39.0-53.0); HGB 13.4 gm/dL (13.0-17.5); Lymphocytes # (A) 1.4 k/uL (1.0-4.8); Lymphocytes % (A) 24 %; MCH 28.9 pg (25.0-35.0); MCHC 32.5 g/dL (31.0-37.0); MCV 88.9 fL (80.0-100.0); Monocytes # (A) 0.3 k/uL (0-1.0); Monocytes % (A) 5 %; Neutrophils # (A) 3.9 k/uL (1.3-7.7); Neutrophils % (A) 68 %; Platelet Count 297 k/uL (150-450); RBC 4.66 m/uL (4.30-5.90); RDW 12.5 % (11.5-15.5); WBC 5.8 k/uL (3.8-10.6)
[2017-06-05 11:27] LABS: ALT 16 U/L (21-72); AST 16 U/L (17-59); Albumin 3.1 g/dL (3.5-5.0); Alkaline Phosphatase 62 U/L (38-126); Anion Gap 17 mmol/L; Blood Urea Nitrogen 14 mg/dL (9-20); Calcium 8.7 mg/dL (8.4-10.2); Carbon Dioxide 19 mmol/L (22-30); Chloride 98 mmol/L (98-107); Glucose 323 mg/dL (74-99); Potassium 4.2 mmol/L (3.5-5.1); Sodium 134 mmol/L (137-145); Total Bilirubin 0.2 mg/dL (0.2-1.3); Total Protein 5.4 g/dL (6.3-8.2)
[2017-06-05 11:41] VITALS: BMI 16.8
--- NOTE | 2017-06-05 11:43 | HP ---
HISTORY AND PHYSICAL CHIEF COMPLAINT: A 57-year-old white male with abdominal pain, nausea, vomiting, dehydration, early DKA and hypoxemia, was admitted to the hospital due to shortness of breath and nausea, vomiting, dehydration, dizziness with any ambulation. He is admitted for possible DKA and abdominal pain and hypoxemia of unclear etiology. Consults are pending. His sugar was 666 one day prior to admission. He is noncompliant as an outpatient with his type 1 diabetes. CURRENT MEDICINES: 1. Dilantin 200 b.i.d. for seizures. 2. Metformin 500 b.i.d. 3. Losartan 100 daily. 4. NPH insulin 30 units subcu a.c. breakfast and 20 units a.c. supper and he is protocol at home. 5. Lipitor 20 mg daily. PAST MEDICAL HISTORY: No history of COPD or any hypoxemia in the past. Nausea and vomiting is new, also. 14 POINT REVIEW OF SYSTEMS: Negative except for as mentioend in HPI. VITALS: His oxygen levels 92 on room air in my office, blood pressure is 100 to 125/50s to 70s, respiratory 18 to 20, pulse rate is 99 to 100, temp 97 to 98. CARDIOVASCULAR: S1, S2. LUNGS: Show scattered wheeze. Decreased breath sounds. ENDOCRINE: He is thin, cachectic. PSYCH: Fair mood and affect. NEUROLOGIC: Alert and oriented x3. INTEGUMENT: Poor skin, turgor. Dry mucous membranes. VASCULAR: Normal dorsalis pedis, posterior tibial pulse. ASSESSMENT: 1. Hypoxemia, unclear etiology. 2. Early diabetic ketoacidosis, uncontrolled diabetes mellitus. 3. Acute abdominal pain of unclear etiology. 4. Dehydration. IV fluids will be given, nausea medicines will be given. Multiple tests will be ordered. Waiting for consultation for vomiting and dehydration. Rule out DKA. MMODL / IJN: [id number] /
[2017-06-05 12:01] LABS: Glucose,Whole Blood 337 mg/dL (75-99)
[2017-06-05] MEDS ORDERED: ACETAMINOPHEN TAB 325 MG TAB PO PRN (12:50)
[2017-06-05 15:31] LABS: Appearance,Urine Clear (Clear); Bilirubin,Urine Negative (Negative); Blood,Urine Negative (Negative); Color,Urine Light Yellow; Glucose,Urine (UA) 4+ (Negative); Leukocyte Esterase,Urine Negative (Negative); Nitrite,Urine Negative (Negative); PH, Urine 5.5 (5.0-8.0); Protein,Urine Negative (Negative); Specific Gravity,Urine 1.025 (1.001-1.035); Urobilinogen,Urine <2.0 mg/dL (<2.0)
[2017-06-05 16:00] LABS: Ketones,Urine 2+ (Negative)
[2017-06-05 17:10] LABS: Glucose,Whole Blood 296 mg/dL (75-99)
[2017-06-05 20:39] LABS: Glucose,Whole Blood 248 mg/dL (75-99)
--- NOTE | 2017-06-05 21:04 | P.CNPUL ---
History of Present Illness Consult date: 06/05/17 Reason for consult: dyspnea, cough, hypoxemia Chief complaint: Shortness of breath and hypoxia and office History of present illness: 57-year-old nonsmoker with history of dyslipidemia insulin-dependent type 1 diabetes mellitus he has a been noted to have a sugar in 600 at primary care's office advised to be admitted into the hospital there was some complains of shortness of breath and an hypoxia in the office, however currently patient denies any chest pain denies any shortness of breath or breathing difficulty he feels much better he did have a significant improvement of the blood sugar with a transient episode of hypoglycemia he is the breathing comfortably denies any chest pain or cough or sputum production he does have a history of snoring off and on and sleepiness during the day he has not been evaluated for a sleep disorder breathing and sleep apnea in the past, his chest x-ray abdominal x-ray unremarkable blood sugar however remains in 200-300 range his hemoglobin A1c is 15.5 he was hypercarbic Danielle make with a potassium level of 6 and CO2 of only 19 suggestive of developing diabetic ketoacidosis however improved now with rehydration and insulin therapy I suspect hypoxia and shortness of breath was related to developing diabetic ketoacidosis and severe metabolic acidosis which however has improved now as noted on laboratory data as well as by clinical exam Review of Systems All systems: negative 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 Past Anesthesia/Blood Transfusion Reactions: No Reported Reaction Past Psychological History: No Psychological Hx Reported Smoking Status: Never smoker Past Alcohol Use History: None Reported Past Drug Use History: None Reported - Past Family History Father Family Medical History: Diabetes Mellitus, Myocardial Infarction ([place]) Additional Family Medical History / Comment(s): AT AGE 57 Mother Family Medical History: Cancer Medications and Allergies Home Medications Medication Instructions Recorded Confirmed Type Losartan Potassium 100 mg PO DAILY 11/17/16 06/04/17 History Phenytoin Sodium Extended 200 mg PO BID 11/17/16 06/04/17 History [Dilantin] Simvastatin [Zocor] 40 mg PO HS 11/17/16 06/04/17 History metFORMIN HCL [Glucophage] 500 mg PO BID 11/17/16 06/04/17 History Insulin NPH Human Isophane 20 unit SQ AC-SUPPER 01/27/17 06/04/17 History [NovoLIN N] Insulin NPH Human Isophane 30 unit SQ AC-BRKFST 01/27/17 06/04/17 History [NovoLIN N] Allergies Allergy/AdvReac Type Severity Reaction Status Date / Time No Known Allergies Allergy Verified 06/04/17 15:18 Physical Exam Vitals: Vital Signs Temp Pulse Resp BP Pulse Ox 06/05/17 15:03 97.8 F 103 H 19 105/88 97 06/05/17 11:06 113/61 06/05/17 08:25 97.8 F 06/05/17 07:00 99 18 106/54 98 06/05/17 00:00 20 06/04/17 23:30 97.3 F L 101 H 20 125/74 95 Intake and Output 06/05/17 06/05/17 06/05/17 06:59 14:59 22:59 Intake Total 100 Balance 100 Intake: Oral 100 Other: # Voids 1 3 # Bowel Movements 0 Weight 40.5 kg - Constitutional General appearance: disheveled, no acute distress, thin - EENT Eyes: anicteric sclerae, EOMI, PERRLA, normal appearance Ears: bilateral: normal - Neck Neck: normal ROM Carotids: bilateral: upstroke normal, bruit absent Thyroid: bilateral: normal size - Respiratory Respiratory: bilateral: CTA, negative: diminished, dullness, rales, rhonchi, wheezing, prolonged expiration, prolonged inspiration - Cardiovascular Heart sounds: normal: S1, S2 - Gastrointestinal General gastrointestinal: normal bowel sounds, soft - Integumentary Integumentary: normal, normal turgor - Neurologic Normal exam Neurologic: CNII-XII intact - Musculoskeletal Musculoskeletal: gait normal, generalized weakness, strength equal bilaterally - Psychiatric Psychiatric: A&O x's 3, appropriate affect, intact judgment & insight Results - Laboratory Findings CBC and BMP: 06/05/17 09:14 06/05/17 09:14 PT/INR, D-dimer D-Dimer 0.19 mg/L FEU (<0.60) 06/04/17 17:49 Abnormal lab findings: Abnormal Labs 06/04/17 06/04/17 06/04/17 16:13 16:13 16:13 Lymphocytes # 0.7 L Sodium 136 L Potassium 6.0 H Chloride 96 L Carbon Dioxide 12 L Creatinine Glucose 357 H POC Glucose (mg/dL) Hemoglobin A1c 15.5 H AST ALT Total Protein Albumin Urine Glucose (UA) Urine Ketones 06/04/17 06/04/17 06/05/17 16:40 21:08 07:10 Lymphocytes # Sodium Potassium Chloride Carbon Dioxide Creatinine Glucose POC Glucose (mg/dL) 351 H 218 H 45 L Hemoglobin A1c AST ALT Total Protein Albumin Urine Glucose (UA) Urine Ketones 06/05/17 06/05/17 06/05/17 07:11 07:31 09:14 Lymphocytes # Sodium 134 L Potassium Chloride Carbon Dioxide 19 L Creatinine 0.60 L Glucose 323 H POC Glucose (mg/dL) 43 L 168 H Hemoglobin A1c AST 16 L ALT 16 L Total Protein 5.4 L Albumin 3.1 L Urine Glucose (UA) Urine Ketones 06/05/17 06/05/17 06/05/17 09:48 11:56 14:30 Lymphocytes # Sodium Potassium Chloride Carbon Dioxide Creatinine Glucose POC Glucose (mg/dL) 333 H 337 H Hemoglobin A1c AST ALT Total Protein Albumin Urine Glucose (UA) 4+ H Urine Ketones 2+ H 06/05/17 06/05/17 16:48 20:37 Lymphocytes # Sodium Potassium Chloride Carbon Dioxide Creatinine Glucose POC Glucose (mg/dL) 296 H 248 H Hemoglobin A1c AST ALT Total Protein Albumin Urine Glucose (UA) Urine Ketones - Diagnostic Findings Chest x-ray: report reviewed, image reviewed Assessment and Plan Assessment: Shortness of breath and hypoxia likely related to diabetic ketoacidosis and metabolic acidosis improved with supportive care and symptoms have resolved Likely obstructive sleep apnea and to be valid further outpatient setting given patient has a severe uncontrolled diabetes and Association of sleep disorder breathing with severe hyperglycemia Borderline hyperkalemia improve Uncontrolled diabetes and hyperglycemia Plan: Gentle hydration increase activity as tolerated patient needs very aggressive diabetic control patient will also need evaluation for sleep disorder breathing and sleep apnea which can be a compilation outpatient setting O follow Time with Patient: Greater than 30
[2017-06-05] MEDS: ATORVASTATIN 20 MG TAB PO SCH (21:08)
--- NOTE | 2017-06-05 22:37 | PN ---
PROGRESS NOTE SUBJECTIVE: [id number]-old white male with uncontrolled diabetes mellitus, abdominal pain, gastroenteritis. He is having decreased abdominal pain and nausea. His diet has been advanced today. Vital signs are reviewed. CARDIOVASCULAR: S1, S2. LUNGS: Clear. GI: Soft. HEMATOLOGY: Negative Homans. ASSESSMENT: 1. Uncontrolled diabetes mellitus. 2. Mild protein-calorie malnutrition. 3. Dehydration. 4. Gastroenteritis. Diet will be advanced. Possible discharge home in the morning. MMODL / IJN: [id number] /
[2017-06-06 02:14] LABS: Glucose,Whole Blood 166 mg/dL (75-99)
[2017-06-06 06:14] LABS: Glucose,Whole Blood 155 mg/dL (75-99)
[2017-06-06 06:39] VITALS: BP 106/64; PULSE 80; RESP 12; TEMP 97.6
[2017-06-06 07:38] LABS: Glucose,Whole Blood 197 mg/dL (75-99)
[2017-06-06] MEDS: INSULIN NPH 300 UNIT/3 ML VIAL SQ SCH (08:55)
[2017-06-06] MEDS: INSULIN ASPART 100 UNIT/ML 1 ML 10 ML VIAL SQ SCH ×2 (08:55→13:40)
[2017-06-06] MEDS: metFORMIN 500 MG TAB PO SCH (08:56)
[2017-06-06] MEDS: SODIUM CHLORIDE 0.9% 1,000 ML IV SCH (08:56)
[2017-06-06] MEDS: LOSARTAN 50 MG TAB PO SCH (08:56)
[2017-06-06] MEDS: PHENYTOIN SODIUM EXTENDED 100 MG CAP PO SCH (08:56)
[2017-06-06 12:48] LABS: Glucose,Whole Blood 244 mg/dL (75-99)
--- NOTE | 2017-06-06 13:13 | P.PN ---
Subjective Progress Note Date: 06/06/17 57-year-old nonsmoker with history of dyslipidemia insulin-dependent type 1 diabetes mellitus he has a been noted to have a sugar in 600 at primary care's office advised to be admitted into the hospital there was some complains of shortness of breath and an hypoxia in the office, however currently patient denies any chest pain denies any shortness of breath or breathing difficulty he feels much better he did have a significant improvement of the blood sugar with a transient episode of hypoglycemia he is the breathing comfortably denies any chest pain or cough or sputum production he does have a history of snoring off and on and sleepiness during the day he has not been evaluated for a sleep disorder breathing and sleep apnea in the past, his chest x-ray abdominal x-ray unremarkable blood sugar however remains in 200-300 range his hemoglobin A1c is 15.5 he was hypercarbic Danielle make with a potassium level of 6 and CO2 of only 19 suggestive of developing diabetic ketoacidosis however improved now with rehydration and insulin therapy I suspect hypoxia and shortness of breath was related to developing diabetic ketoacidosis and severe metabolic acidosis which however has improved now as noted on laboratory data as well as by clinical exam 06/06/2017: Patient seen and examined. Patient is currently on room air. He denies any shortness of breath or chest pain. He states his blood sugars have been better. His appetite is good. He has no concerns or complaints. He states he hopes to go home soon. Objective - Vital Signs Vital signs: Vital Signs Temp 97.6 F 06/06/17 06:38 Pulse 80 06/06/17 06:38 Resp 12 06/06/17 06:38 BP 106/64 06/06/17 06:38 Pulse Ox 95 06/06/17 06:38 Intake & Output 06/05/17 06/06/17 06/06/17 18:59 06:59 18:59 Weight 40.5 kg Other: Voiding Method Toilet # Voids 3 1 - Exam Gen.: Patient is alert and oriented 3, no acute distress, thin Cardiovascular: Regular rate and rhythm, S1/S2 Lungs: Clear to auscultation bilaterally no wheezes rales or rhonchi Abdomen: Soft nontender nondistended positive bowel sounds Extremities: No edema - Labs CBC & Chem 7: 06/05/17 09:14 06/05/17 09:14 Labs: Abnormal Lab Results - Last 24 Hours (Table) 06/05/17 06/05/17 06/05/17 Range/Units 14:30 16:48 20:37 POC Glucose (mg/dL) 296 H 248 H (75-99) mg/dL Urine Glucose (UA) 4+ H (Negative) Urine Ketones 2+ H (Negative) 06/06/17 06/06/17 06/06/17 Range/Units 02:12 06:09 07:23 POC Glucose (mg/dL) 166 H 155 H 197 H (75-99) mg/dL Urine Glucose (UA) (Negative) Urine Ketones (Negative) 06/06/17 Range/Units 12:23 POC Glucose (mg/dL) 244 H (75-99) mg/dL Urine Glucose (UA) (Negative) Urine Ketones (Negative) Assessment and Plan Assessment: DKA with metabolic acidosis, now resolved Dyspnea likely secondary to above Possible obstructive sleep apnea Uncontrolled diabetes mellitus type 1 Mild protein calorie malnutrition Dehydration Patient is currently on room air Diet has been advanced by primary team Blood sugar control Respiratory and hemodynamic status is stable Okay to discharge from pulmonary standpoint
--- NOTE | 2017-06-06 15:10 | P.PN ---
Progress Note - Text Progress Note Date: 06/06/17 Patient clinically doing better today. No reports of vomiting. Abdominal pain improved. Patient clear from a surgical standpoint for discharge.
--- NOTE | 2017-06-06 18:58 | P.PN ---
Subjective Progress Note Date: 06/06/17 The patient is a 57-year-old gentleman admitted secondary to presumed gastroenteritis. He came in with abdominal pain. Patient is clinically doing better today. No reports of vomiting. Abdominal pain improved. He is tolerating diet. Objective - Vital Signs Vital signs: Vital Signs Temp 97.6 F 06/06/17 06:38 Pulse 80 06/06/17 06:38 Resp 12 06/06/17 06:38 BP 106/64 06/06/17 06:38 Pulse Ox 95 06/06/17 06:38 Intake & Output 06/05/17 06/06/17 06/06/17 18:59 06:59 18:59 Weight 40.5 kg Other: Voiding Method Toilet # Voids 3 1 - Exam GENERAL: Well developed and in no acute distress. Pleasant. HEENT: No sclera icterus. Extraocular movements grossly intact. Moist buccal mucosa. Head is atraumatic, normocephalic. Hears conversational speech. No nasal drainage. NECK: Supple without lymphadenopathy. No JV distention. CHEST: Non-labored respirations and equal bilateral excursions. CARDIOVASCULAR: Regular rate and rhythm. Palpable 2+ radial pulses. ABDOMEN: Soft, nontender. Nondistended. MUSCULOSKELETAL: No clubbing, cyanosis or edema. NEUROLOGIC: No focal or lateralizing signs. PSYCH: Appropriate affect. Alert and oriented to person, place and time. SKIN: Good skin turgor. Well perfused. - Labs CBC & Chem 7: 06/05/17 09:14 06/05/17 09:14 Labs: Abnormal Lab Results - Last 24 Hours (Table) 06/05/17 06/05/17 06/05/17 Range/Units 14:30 16:48 20:37 POC Glucose (mg/dL) 296 H 248 H (75-99) mg/dL Urine Glucose (UA) 4+ H (Negative) Urine Ketones 2+ H (Negative) 06/06/17 06/06/17 06/06/17 Range/Units 02:12 06:09 07:23 POC Glucose (mg/dL) 166 H 155 H 197 H (75-99) mg/dL Urine Glucose (UA) (Negative) Urine Ketones (Negative) 06/06/17 Range/Units 12:23 POC Glucose (mg/dL) 244 H (75-99) mg/dL Urine Glucose (UA) (Negative) Urine Ketones (Negative) Assessment and Plan (1) Gastroenteritis Status: Acute Code(s): K52.9 - NONINFECTIVE GASTROENTERITIS AND COLITIS, UNSPECIFIED SNOMED Code(s): 78694711 (2) Dehydration Status: Acute Code(s): E86.0 - DEHYDRATION SNOMED Code(s): 64484613 Plan: 1. Patient clear from a surgical standpoint for discharge.
== END 2017-06-06 15:32 | disposition home or self-care (01) | DRG 638 ==
LOC: 4MS4W 14:40
PROVIDERS: ADMIT Family Medicine; ATTEND Family Medicine
DX: E10.10 Type 1 diabetes mellitus with ketoacidosis without coma (principal); E44.1 Mild protein-calorie malnutrition; Z68.1 Body mass index [BMI] 19.9 or less, adult; E78.5 Hyperlipidemia, unspecified; E86.0 Dehydration; G40.909 Epilepsy, unspecified, not intractable, without status epilepticus; M19.90 Unspecified osteoarthritis, unspecified site; K21.9 Gastro-esophageal reflux disease without esophagitis; E87.5 Hyperkalemia; G47.33 Obstructive sleep apnea (adult) (pediatric); K52.9 Noninfective gastroenteritis and colitis, unspecified; Z98.890 Other specified postprocedural states; Z83.3 Family history of diabetes mellitus; Z82.49 Family history of ischemic heart disease and other diseases of the circulatory system; Z79.4 Long term (current) use of insulin; Z79.899 Other long term (current) drug therapy; Z91.19 Patient's noncompliance with other medical treatment and regimen
CPT/HCPCS: 71046; 74019; 80053; 81003; 83036; 85025; 85379; 87045; 87046; 87324; 87328; 87329; 89055

== ENCOUNTER 2017-06-13 09:35 | Inpatient (IN) | payer OTHER ==
[2017-06-13] MEDS ORDERED: ONDANSETRON 4 MG/2 ML VIAL IVP STA ×2 (10:26→12:07)
[2017-06-13] MEDS ORDERED: SODIUM CHLORIDE 0.9% 1,000 ML IV STA ×2 (10:26→11:20)
[2017-06-13] MEDS ORDERED: PANTOPRAZOLE 40 MG/10 ML VIAL IVP STA (10:27)
--- NOTE | 2017-06-13 10:29 | ED ---
General Adult HPI - General Chief complaint: Nausea/Vomiting/Diarrhea Stated complaint: dehydration, weakness Time Seen by Provider: 06/13/17 10:06 Source: patient, RN notes reviewed Mode of arrival: wheelchair Limitations: no limitations - History of Present Illness Initial comments: Patient's a 57-year-old male presenting to the emergency room today with a chief complaint of symptoms of nausea vomiting that began earlier this morning. He states he's had several bouts. Denies specific abdominal pain. States he has had symptoms in the past but denies any specific diagnosis. Patient denies any other complaints or associated symptoms at this time. Patient denies any recent fever, chills, shortness of breath, chest pain, back pain, numbness or tingling, dysuria or hematuria, constipation or diarrhea, headaches or visual changes, or any other complaints. - Related Data Home Medications Medication Instructions Recorded Confirmed Phenytoin Sodium Extended 200 mg PO BID 11/17/16 06/13/17 [Dilantin] Insulin Aspart [NovoLOG See Protocol SQ DAILY 06/13/17 06/13/17 (formulary)] Insulin NPH Human Isophane 20 unit SQ HS 06/13/17 06/13/17 [humuLIN N] Insulin NPH Human Isophane 30 unit SQ DAILY 06/13/17 06/13/17 [humuLIN N] Omeprazole 20 mg PO DAILY 06/13/17 06/13/17 Sertraline [Zoloft] 50 mg PO DAILY 06/13/17 06/13/17 metFORMIN HCL 1,000 mg PO BID 06/13/17 06/13/17 Allergies Allergy/AdvReac Type Severity Reaction Status Date / Time No Known Allergies Allergy Verified 06/13/17 12:45 Review of Systems ROS Statement: Those systems with pertinent positive or pertinent negative responses have been documented in the HPI. ROS Other: All systems not noted in ROS Statement are negative. 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 Eye: Pupils are equal, round and reactive to light, extra-ocular movements are intact. No nystagmus. There is normal conjunctiva bilaterally. No signs of icterus. Ears, nose, mouth and throat: There are moist mucous membranes and no oral lesions. Neck: The neck is supple, there is no tenderness or JVD. Cardiovascular: There is a regular rate and rhythm. No murmur, rub or gallop is appreciated. Respiratory: Lungs are clear to auscultation, respirations are non-labored, breath sounds are equal. No wheezes, stridor, rales, or rhonchi. Gastrointestinal: Soft, non-distended, non-tender abdomen without masses or organomegaly noted. There is no rebound or guarding present. No CVA tenderness. Bowel sounds are unremarkable. Musculoskeletal: Normal ROM, no tenderness. Strength 5/5. Sensation intact. Pulses equal bilaterally 2+. Neurological: A&O x 3. CN II-XII intact, There are no obvious motor or sensory deficits. Coordination appears grossly intact. Speech is normal. Skin: Skin is warm and dry and no rashes or lesions are noted. Psychiatric: Cooperative, appropriate mood & affect, normal judgment. Limitations: no limitations Course Vital Signs 06/13/17 06/13/17 09:56 12:30 Temperature 96.9 F L Pulse Rate 98 106 H Respiratory 18 16 Rate Blood Pressure 124/61 109/55 O2 Sat by Pulse 100 100 Oximetry EKG Findings - EKG Comments: EKG Findings:: EKG performed at 1042: Shows sinus tachycardia [address] interval 132. QRS 94. QT/QTC 338/444. No ST changes. Medical Decision Making - Medical Decision Making Patient reexamined at this time shows no signs of distress. Patient's labs been reviewed with a white count. Patient's glucose greater than 600. Patient' s bicarb 5. Patient's vitals are stable. Resting comfortably no signs of distress. Started on DKA protocol will be admitted to the hospital. - Lab Data Result diagrams: 06/13/17 10:48 06/13/17 10:48 Lab Results 06/13/17 06/13/17 06/13/17 Range/Units 10:48 10:48 10:48 WBC 20.1 H (3.8-10.6) k/uL RBC 5.11 (4.30-5.90) m/uL Hgb 14.8 (13.0-17.5) gm/dL Hct 48.0 (39.0-53.0) % MCV 94.0 D (80.0-100.0) fL MCH 29.0 (25.0-35.0) pg MCHC 30.9 L (31.0-37.0) g/dL RDW 12.7 (11.5-15.5) % Plt Count 409 (150-450) k/uL Neutrophils % 91 % Lymphocytes % 4 % Monocytes % 4 % Eosinophils % 0 % Basophils % 0 % Neutrophils # 18.3 H (1.3-7.7) k/uL Lymphocytes # 0.8 L (1.0-4.8) k/uL Monocytes # 0.8 (0-1.0) k/uL Eosinophils # 0.0 (0-0.7) k/uL Basophils # 0.0 (0-0.2) k/uL Hypochromasia Moderate PT 9.6 (9.0-12.0) sec INR 1.0 (<1.2) APTT 25.3 (22.0-30.0) sec Sodium 135 L (137-145) mmol/L Potassium 4.5 (3.5-5.1) mmol/L Chloride 90 L (98-107) mmol/L Carbon Dioxide 5 L* (22-30) mmol/L Anion Gap 40 mmol/L BUN 15 (9-20) mg/dL Creatinine 1.00 (0.66-1.25) mg/dL Est GFR (CKD-EPI)AfAm >90 (>60 ml/min/1.73 sqM) Est GFR (CKD-EPI)NonAf 83 (>60 ml/min/1.73 sqM) Glucose 657 H* (74-99) mg/dL POC Glucose (mg/dL) (75-99) mg/dL POC Glu Shingle Cutter ID Plasma Lactic Acid Michael (0.7-2.0) mmol/L Calcium 9.8 (8.4-10.2) mg/dL Total Bilirubin 0.2 (0.2-1.3) mg/dL AST 15 L (17-59) U/L ALT 27 (21-72) U/L Alkaline Phosphatase 112 (38-126) U/L Total Creatine Kinase (55-170) U/L CK-MB (CK-2) (0.0-2.4) ng/mL CK-MB (CK-2) Rel Index Troponin I (0.000-0.034) ng/mL Total Protein 7.3 (6.3-8.2) g/dL Albumin 4.8 (3.5-5.0) g/dL Amylase 62 (30-110) U/L Lipase 87 (23-300) U/L Urine Color Urine Appearance (Clear) Urine pH (5.0-8.0) Ur Specific Webb (1.001-1.035) Urine Protein (Negative) Urine Glucose (UA) (Negative) Urine Ketones (Negative) Urine Blood (Negative) Urine Nitrite (Negative) Urine Bilirubin (Negative) Urine Urobilinogen (<2.0) mg/dL Ur Leukocyte Esterase (Negative) Urine RBC (0-5) /hpf Urine WBC (0-5) /hpf Urine Mucus (None) /hpf 06/13/17 06/13/17 06/13/17 Range/Units 10:48 12:02 12:05 WBC (3.8-10.6) k/uL RBC (4.30-5.90) m/uL Hgb (13.0-17.5) gm/dL Hct (39.0-53.0) % MCV (80.0-100.0) fL MCH (25.0-35.0) pg MCHC (31.0-37.0) g/dL RDW (11.5-15.5) % Plt Count (150-450) k/uL Neutrophils % % Lymphocytes % % Monocytes % % Eosinophils % % Basophils % % Neutrophils # (1.3-7.7) k/uL Lymphocytes # (1.0-4.8) k/uL Monocytes # (0-1.0) k/uL Eosinophils # (0-0.7) k/uL Basophils # (0-0.2) k/uL Hypochromasia PT (9.0-12.0) sec INR (<1.2) APTT (22.0-30.0) sec Sodium (137-145) mmol/L Potassium (3.5-5.1) mmol/L Chloride (98-107) mmol/L Carbon Dioxide (22-30) mmol/L Anion Gap mmol/L BUN (9-20) mg/dL Creatinine (0.66-1.25) mg/dL Est GFR (CKD-EPI)AfAm (>60 ml/min/1.73 sqM) Est GFR (CKD-EPI)NonAf (>60 ml/min/1.73 sqM) Glucose (74-99) mg/dL POC Glucose (mg/dL) 522 H (75-99) mg/dL POC Glu Shingle Cutter ID Ruben Jack Plasma Lactic Acid Michael 1.4 (0.7-2.0) mmol/L Calcium (8.4-10.2) mg/dL Total Bilirubin (0.2-1.3) mg/dL AST (17-59) U/L ALT (21-72) U/L Alkaline Phosphatase (38-126) U/L Total Creatine Kinase 72 (55-170) U/L CK-MB (CK-2) 1.1 (0.0-2.4) ng/mL CK-MB (CK-2) Rel Index 1.5 Troponin I <0.012 (0.000-0.034) ng/mL Total Protein (6.3-8.2) g/dL Albumin (3.5-5.0) g/dL Amylase (30-110) U/L Lipase (23-300) U/L Urine Color Urine Appearance (Clear) Urine pH (5.0-8.0) Ur Specific Webb (1.001-1.035) Urine Protein (Negative) Urine Glucose (UA) (Negative) Urine Ketones (Negative) Urine Blood (Negative) Urine Nitrite (Negative) Urine Bilirubin (Negative) Urine Urobilinogen (<2.0) mg/dL Ur Leukocyte Esterase (Negative) Urine RBC (0-5) /hpf Urine WBC (0-5) /hpf Urine Mucus (None) /hpf 06/13/17 06/13/17 Range/Units 13:25 13:37 WBC (3.8-10.6) k/uL RBC (4.30-5.90) m/uL Hgb (13.0-17.5) gm/dL Hct (39.0-53.0) % MCV (80.0-100.0) fL MCH (25.0-35.0) pg MCHC (31.0-37.0) g/dL RDW (11.5-15.5) % Plt Count (150-450) k/uL Neutrophils % % Lymphocytes % % Monocytes % % Eosinophils % % Basophils % % Neutrophils # (1.3-7.7) k/uL Lymphocytes # (1.0-4.8) k/uL Monocytes # (0-1.0) k/uL Eosinophils # (0-0.7) k/uL Basophils # (0-0.2) k/uL Hypochromasia PT (9.0-12.0) sec INR (<1.2) APTT (22.0-30.0) sec Sodium (137-145) mmol/L Potassium (3.5-5.1) mmol/L Chloride (98-107) mmol/L Carbon Dioxide (22-30) mmol/L Anion Gap mmol/L BUN (9-20) mg/dL Creatinine (0.66-1.25) mg/dL Est GFR (CKD-EPI)AfAm (>60 ml/min/1.73 sqM) Est GFR (CKD-EPI)NonAf (>60 ml/min/1.73 sqM) Glucose (74-99) mg/dL POC Glucose (mg/dL) 468 H (75-99) mg/dL POC Glu Shingle Cutter ID Maryulip, Ruben Plasma Lactic Acid Michael (0.7-2.0) mmol/L Calcium (8.4-10.2) mg/dL Total Bilirubin (0.2-1.3) mg/dL AST (17-59) U/L ALT (21-72) U/L Alkaline Phosphatase (38-126) U/L Total Creatine Kinase (55-170) U/L CK-MB (CK-2) (0.0-2.4) ng/mL CK-MB (CK-2) Rel Index Troponin I (0.000-0.034) ng/mL Total Protein (6.3-8.2) g/dL Albumin (3.5-5.0) g/dL Amylase (30-110) U/L Lipase (23-300) U/L Urine Color Colorless Urine Appearance Clear (Clear) Urine pH 5.0 (5.0-8.0) Ur Specific Webb 1.021 (1.001-1.035) Urine Protein Trace H (Negative) Urine Glucose (UA) 4+ H (Negative) Urine Ketones 4+ H (Negative) Urine Blood Trace H (Negative) Urine Nitrite Negative (Negative) Urine Bilirubin Negative (Negative) Urine Urobilinogen <2.0 (<2.0) mg/dL Ur Leukocyte Esterase Negative (Negative) Urine RBC <1 (0-5) /hpf Urine WBC 1 (0-5) /hpf Urine Mucus Rare H (None) /hpf Disposition Clinical Impression: DKA (diabetic ketoacidoses) Disposition: ADMITTED IP TO THIS [facility] Condition: Stable Referrals: Yaw Manzanares MD [Primary Care Provider] - 1-2 days Time of Disposition: 14:34
[2017-06-13 11:02] LABS: Basophils % (A) 0 %; Eosinophils % (A) 0 %; HGB 14.8 gm/dL (13.0-17.5); Hypochromasia Moderate; Lymphocytes # (A) 0.8 k/uL (1.0-4.8); Lymphocytes % (A) 4 %; MCHC 30.9 g/dL (31.0-37.0); Mean Platelet Volume 7.7; Monocytes # (A) 0.8 k/uL (0-1.0); Monocytes % (A) 4 %; Neutrophils # (A) 18.3 k/uL (1.3-7.7); Neutrophils % (A) 91 %; Platelet Count 409 k/uL (150-450); RBC 5.11 m/uL (4.30-5.90); RDW 12.7 % (11.5-15.5); WBC 20.1 k/uL (3.8-10.6)
[2017-06-13 11:11] LABS: ALT 27 U/L (21-72); AST 15 U/L (17-59); Albumin 4.8 g/dL (3.5-5.0); Alkaline Phosphatase 112 U/L (38-126); Amylase 62 U/L (30-110); Blood Urea Nitrogen 15 mg/dL (9-20); Calcium 9.8 mg/dL (8.4-10.2); Chloride 90 mmol/L (98-107); Lipase 87 U/L (23-300); Potassium 4.5 mmol/L (3.5-5.1); Sodium 135 mmol/L (137-145); Total Bilirubin 0.2 mg/dL (0.2-1.3); Total Protein 7.3 g/dL (6.3-8.2)
[2017-06-13 11:13] LABS: Partial Thromboplastin Time 25.3 sec (22.0-30.0); Prothrombin Time 9.6 sec (9.0-12.0)
[2017-06-13 11:16] LABS: Anion Gap 40 mmol/L
[2017-06-13 11:19] LABS: Glucose 657 mg/dL (74-99)
[2017-06-13 11:20] LABS: Carbon Dioxide 5 mmol/L (22-30)
--- NOTE | 2017-06-13 11:20 | XR ---
EXAMINATION TYPE: XR KUB , 2 VIEWS DATE OF EXAM ORDERED: 06/13/2017 HISTORY: abdominal pain. COMPARISON: None. FINDINGS: The lung bases are clear. Within the abdomen, there are nondistended air-filled loops of small bowel throughout the abdomen. Th ere is no evidence of obstruction or free air. There is calcification of the LAD is different within the pelvis. IMPRESSION: NONOBSTRUCTIVE ABDOMINAL GAS PATTERN.
[2017-06-13] MEDS ORDERED: RX INFO: IV CONTRAST WAS GIVEN 1 EACH MISC MISCELLANE PRN (11:21)
[2017-06-13 11:31] LABS: Creatine Kinase 72 U/L (55-170)
[2017-06-13 11:43] LABS: Creatine Kinase MB 1.1 ng/mL (0.0-2.4); Troponin I <0.012 ng/mL (0.000-0.034)
[2017-06-13] MEDS ORDERED: INSULIN ASPART 100 UNIT/ML 1 ML 10 ML VIAL SQ ONE (12:07)
[2017-06-13 12:11] LABS: Glucose,Whole Blood 522 mg/dL (75-99)
--- NOTE | 2017-06-13 13:02 | XR ---
EXAMINATION TYPE: XR chest 2V DATE OF EXAM: 06/13/2017 HISTORY: vomiting. REFERENCE: Previous study dated 06/04/2017. FINDINGS: The lungs are clear. Pleural spaces are clear. The heart is not enlarged. IMPRESSION: NORMAL CHEST.
--- NOTE | 2017-06-13 13:13 | CT ---
EXAMINATION TYPE: CT abdomen pelvis w con DATE OF EXAM: 06/13/2017 REFERENCE: NONE HISTORY: Pain HISTORY: Nausea, vomiting, dehydration and weakness REFERENCE: NONE CT DLP: 332.0 mGy Automated exposure control for dose reduction was used. TECHNIQUE: Helical acquisition through the abdomen and pelvis was obtained following the oral ingesti on of without Oral Contrast and following intravenous administration of 98 mL of Isovue 300. The data was reformatted in axial, coronal and sagittal projections. FINDINGS: There is some platelike atelectasis at the left lung base. Visualized portions of the lung s are otherwise clear. There is no pleural or pericardial fluid. The heart is not enlarged. There is a small hiatal hernia. Within the abdomen, the liver, spleen and gallbladder appear normal. Both adrenal glands appear meaghan l. Both kidneys demonstrate function and appear morphologically normal. The pancreas is unremarkable. There is moderate atheromatous calcification of the abdominal aorta. There is no significant retroper itoneal, iliac or inguinal adenopathy. The bladder is distended. There are multiple thickened loops of small bowel. There is no evidence of obstruction. There is no significant diverticular change and there is no radiographic evidence of diverticulitis. The appendix is not visualized. There is some thickening of the left side of the colon and sigmoid colon. There is no free fluid and no free air. IMPRESSION: 1. THICKENING OF THE MUCOSA OF BOTH THE LARGE AND SMALL BOWEL MAY REFLECT GENERALIZED ENTERITIS AND M ILD COLITIS. 2. SMALL HIATAL HERNIA.
[2017-06-13 13:35] LABS: Appearance,Urine Clear (Clear); Bilirubin,Urine Negative (Negative); Blood,Urine Trace (Negative); Color,Urine Colorless; Glucose,Urine (UA) 4+ (Negative); Leukocyte Esterase,Urine Negative (Negative); Mucus,Urine Rare /hpf; Nitrite,Urine Negative (Negative); Protein,Urine Trace (Negative); RBC,Urine <1 /hpf (0-5); Specific Gravity,Urine 1.021 (1.001-1.035); Urobilinogen,Urine <2.0 mg/dL (<2.0); WBC,Urine 1 /hpf (0-5)
[2017-06-13 13:40] LABS: Glucose,Whole Blood 468 mg/dL (75-99)
[2017-06-13 13:45] LABS: Ketones,Urine 4+ (Negative)
[2017-06-13] MEDS ORDERED: NALOXONE 0.4 MG/ML 1 ML VIAL IV PRN (14:12)
[2017-06-13] MEDS ORDERED: ONDANSETRON 4 MG/2 ML VIAL IVP PRN (14:12)
[2017-06-13] MEDS ORDERED: INSULIN REGULAR 100 UNIT in SODIUM CHLORIDE 0.9% 100 ML IV SCH ×2 (14:15→17:15)
[2017-06-13] MEDS: SODIUM CHLORIDE 0.9% 1,000 ML IV SCH ×2 (14:39→20:32)
[2017-06-13 15:06] LABS: Glucose,Whole Blood 371 mg/dL (75-99)
[2017-06-13 15:14] VITALS: BMI 17.7
[2017-06-13 15:33] LABS: Glucose,Whole Blood 300 mg/dL (75-99)
[2017-06-13 16:34] LABS: Glucose,Whole Blood 294 mg/dL (75-99)
[2017-06-13] MEDS ORDERED: Magnesium Replacement Protocol 1 EACH MISC MISCELLANE PRN (17:05)
[2017-06-13] MEDS ORDERED: Potassium Replacement Protocol 1 EACH MISC MISCELLANE PRN (17:05)
[2017-06-13 17:12] LABS: Anion Gap 29 mmol/L; Blood Urea Nitrogen 14 mg/dL (9-20); Chloride 104 mmol/L (98-107); Glucose 265 mg/dL (74-99); Sodium 140 mmol/L (137-145)
[2017-06-13 17:13] LABS: Carbon Dioxide 7 mmol/L (22-30)
[2017-06-13 17:51] LABS: Glucose,Whole Blood 177 mg/dL (75-99)
[2017-06-13] MEDS: D5-0.45% NACL WITH KCL 20MEQ/L 1,000 ML IV SCH (18:20)
[2017-06-13 18:40] LABS: Glucose,Whole Blood 174 mg/dL (75-99)
[2017-06-13 20:01] LABS: Glucose,Whole Blood 150 mg/dL (75-99)
[2017-06-13 20:32] LABS: Glucose,Whole Blood 170 mg/dL (75-99)
[2017-06-13] MEDS: PHENYTOIN SODIUM EXTENDED 100 MG CAP PO SCH (20:35)
[2017-06-13 20:57] LABS: Anion Gap 15 mmol/L; Blood Urea Nitrogen 13 mg/dL (9-20); Carbon Dioxide 16 mmol/L (22-30); Chloride 108 mmol/L (98-107); Glucose 166 mg/dL (74-99); Potassium 4.1 mmol/L (3.5-5.1); Sodium 139 mmol/L (137-145)
[2017-06-13 21:29] LABS: Glucose,Whole Blood 172 mg/dL (75-99)
[2017-06-13 22:38] LABS: Glucose,Whole Blood 176 mg/dL (75-99)
[2017-06-13 23:32] LABS: Glucose,Whole Blood 193 mg/dL (75-99)
[2017-06-14 00:51] LABS: Glucose,Whole Blood 185 mg/dL (75-99)
[2017-06-14 00:56] LABS: Anion Gap 14 mmol/L; Blood Urea Nitrogen 12 mg/dL (9-20); Carbon Dioxide 20 mmol/L (22-30); Chloride 107 mmol/L (98-107); Glucose 196 mg/dL (74-99); Potassium 4.3 mmol/L (3.5-5.1); Sodium 141 mmol/L (137-145)
[2017-06-14] MEDS: D5-0.45% NACL WITH KCL 20MEQ/L 1,000 ML IV SCH ×2 (01:16→08:49)
[2017-06-14] MEDS: SODIUM CHLORIDE 0.9% 1,000 ML IV SCH ×3 (01:16→11:33)
[2017-06-14 01:38] LABS: Glucose,Whole Blood 188 mg/dL (75-99)
[2017-06-14 02:26] LABS: Glucose,Whole Blood 180 mg/dL (75-99)
[2017-06-14 03:28] LABS: Glucose,Whole Blood 166 mg/dL (75-99)
[2017-06-14 04:34] LABS: Glucose,Whole Blood 169 mg/dL (75-99)
[2017-06-14 05:36] LABS: Glucose,Whole Blood 149 mg/dL (75-99)
[2017-06-14 06:00] LABS: Anion Gap 9 mmol/L; Blood Urea Nitrogen 12 mg/dL (9-20); Calcium 8.2 mg/dL (8.4-10.2); Carbon Dioxide 20 mmol/L (22-30); Chloride 109 mmol/L (98-107); Glucose 161 mg/dL (74-99); Potassium 3.4 mmol/L (3.5-5.1); Sodium 138 mmol/L (137-145)
[2017-06-14 06:20] LABS: Glucose,Whole Blood 141 mg/dL (75-99)
[2017-06-14] MEDS: PANTOPRAZOLE 40 MG TABLET PO SCH (06:34)
[2017-06-14] MEDS ORDERED: metFORMIN 500 MG TAB PO SCH (07:30)
[2017-06-14 07:40] LABS: Glucose,Whole Blood 183 mg/dL (75-99)
[2017-06-14 08:33] LABS: Glucose,Whole Blood 356 mg/dL (75-99)
[2017-06-14 08:33] LABS: Glucose,Whole Blood 313 mg/dL (75-99)
[2017-06-14] MEDS: PHENYTOIN SODIUM EXTENDED 100 MG CAP PO SCH ×2 (08:54→20:59)
[2017-06-14 09:30] LABS: Glucose,Whole Blood 367 mg/dL (75-99)
[2017-06-14 11:34] LABS: Glucose,Whole Blood 391 mg/dL (75-99)
[2017-06-14] MEDS: INSULIN NPH 300 UNIT/3 ML VIAL SQ SCH (11:37)
[2017-06-14] MEDS: INSULIN ASPART 100 UNIT/ML 1 ML 10 ML VIAL SQ SCH ×3 (11:38→20:58)
[2017-06-14 12:09] LABS: ALT 25 U/L (21-72); AST 13 U/L (17-59); Albumin 2.8 g/dL (3.5-5.0); Alkaline Phosphatase 70 U/L (38-126); Anion Gap 8 mmol/L; Blood Urea Nitrogen 10 mg/dL (9-20); Calcium 8.1 mg/dL (8.4-10.2); Carbon Dioxide 20 mmol/L (22-30); Chloride 106 mmol/L (98-107); Glucose 360 mg/dL (74-99); Potassium 3.8 mmol/L (3.5-5.1); Sodium 134 mmol/L (137-145); Total Bilirubin 0.1 mg/dL (0.2-1.3); Total Protein 4.9 g/dL (6.3-8.2)
[2017-06-14 12:15] LABS: Basophils % (A) 0 %; Eosinophils % (A) 0 %; HCT 35.2 % (39.0-53.0); Lymphocytes # (A) 1.4 k/uL (1.0-4.8); Lymphocytes % (A) 14 %; MCH 29.2 pg (25.0-35.0); MCHC 33.6 g/dL (31.0-37.0); Mean Platelet Volume 7.2; Monocytes # (A) 0.6 k/uL (0-1.0); Monocytes % (A) 6 %; Neutrophils # (A) 7.8 k/uL (1.3-7.7); Neutrophils % (A) 78 %; Platelet Count 279 k/uL (150-450); RBC 4.04 m/uL (4.30-5.90)
[2017-06-14 12:17] LABS: HGB 11.8 gm/dL (13.0-17.5); MCV 87.1 fL (80.0-100.0)
--- NOTE | 2017-06-14 12:34 | HP ---
HISTORY AND PHYSICAL DATE OF SERVICE: 06/13/17. CHIEF COMPLAINT: 57-year-old white male complaining of nausea and vomiting, began early this morning. Denies any abdominal pain. He has diagnosis. He was found to be in DKA, was admitted to the hospital for DKA and abdominal pain. HOME MEDICATIONS: Dilantin 200 b.i.d., NovoLog a.c. and at bedtime, Levemir 20 units daily, Humulin N 30 daily, omeprazole 20 daily, metformin 1000 b.i.d., Zoloft 50 mg daily. REVIEW OF SYSTEMS: Fourteen point review of systems negative except for as mentioned in HPI. 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 SOCIAL HISTORY: Does not smoke, does not drink alcohol. No illicit drugs. FAMILY HISTORY: Father diabetes mellitus, myocardial infarction. Mother cancer. PHYSICAL EXAM: Blood pressure 109 to 124 over 50s to 60s, O2 100% on room air. Pulse is 98 to 106, temperature 96.9. He is thin, cachectic, alert, orient x3. OPHTHALMOLOGIC: Pupils equal, round, reactive to light and accommodation. NECK: Supple. CARDIAC: S1, S2. LUNGS: Clear. GI: Soft, mildly tender. Normal bowel sounds. MUSCULOSKELETAL: Normal range of motion. NEUROLOGIC: Cranial nerves are intact. SKIN: Warm and dry. PSYCH: Fair mood and affect. EKG shows sinus rhythm. White count is 20.1, hemoglobin 14.8, sodium 135, potassium 4.5, BUN is 15, creatinine 1.0, potassium 3.5, glucose 657 on admission. ASSESSMENT: 1. Diabetic ketoacidosis. 2. Hyponatremia. 3. Diffuse abdominal pain, probably viral syndrome. DKA protocol. Fluid rehydration, electrolyte replacement. Please see further orders. MMODL / IJN: [id number] /
[2017-06-14 16:44] LABS: Glucose,Whole Blood 106 mg/dL (75-99)
--- NOTE | 2017-06-14 17:19 | PN ---
PROGRESS NOTE SUBJECTIVE: 57-year-old white male diabetic ketoacidosis, regular insulin at this time. His anion gap is close. We are going to take him off metformin due to GI upset and possible abdominal pain symptoms and keep him just on his insulin. All infections seem to be ruled out. CARDIOVASCULAR: S1, S2. Lungs clear. GI: Soft. Hematology negative Homans. Psych: Fair mood and affect. ASSESSMENT: 1. Diabetic ketoacidosis. 2. Gastrointestinal upset secondary to possible metformin versus gastroenteritis. 3. Dehydration. 4. Metabolic acidosis. All improved. Placed on Accu-Chek protocol a.c. and at bedtime. DC metformin. Continue current treatment. MMODL / IJN: [id number] /
[2017-06-14 20:56] LABS: Glucose,Whole Blood 127 mg/dL (75-99)
[2017-06-14] MEDS ORDERED: INSULIN NPH 300 UNIT/3 ML VIAL SQ SCH (21:00)
[2017-06-15 06:07] LABS: Glucose,Whole Blood 88 mg/dL (75-99)
[2017-06-15] MEDS: INSULIN ASPART 100 UNIT/ML 1 ML 10 ML VIAL SQ SCH ×2 (06:10→12:01)
[2017-06-15] MEDS: PANTOPRAZOLE 40 MG TABLET PO SCH (06:27)
[2017-06-15 08:30] VITALS: RESP 16
[2017-06-15] MEDS: INSULIN NPH 300 UNIT/3 ML VIAL SQ SCH (08:32)
[2017-06-15] MEDS: PHENYTOIN SODIUM EXTENDED 100 MG CAP PO SCH (08:32)
[2017-06-15 11:36] VITALS: BP 129/75; PULSE 80; TEMP 97.5
[2017-06-15 11:55] LABS: Glucose,Whole Blood 99 mg/dL (75-99)
[2017-06-15 12:49] LABS: Basophils % (A) 0 %; Eosinophils % (A) 1 %; HCT 40.9 % (39.0-53.0); HGB 13.7 gm/dL (13.0-17.5); Lymphocytes # (A) 1.5 k/uL (1.0-4.8); Lymphocytes % (A) 22 %; MCH 28.7 pg (25.0-35.0); MCHC 33.4 g/dL (31.0-37.0); MCV 86.1 fL (80.0-100.0); Monocytes # (A) 0.4 k/uL (0-1.0); Monocytes % (A) 5 %; Neutrophils # (A) 4.9 k/uL (1.3-7.7); Neutrophils % (A) 71 %; Platelet Count 306 k/uL (150-450); RBC 4.76 m/uL (4.30-5.90); RDW 12.9 % (11.5-15.5)
[2017-06-15 12:57] LABS: ALT 25 U/L (21-72); AST 18 U/L (17-59); Albumin 3.4 g/dL (3.5-5.0); Alkaline Phosphatase 68 U/L (38-126); Anion Gap 9 mmol/L; Blood Urea Nitrogen 8 mg/dL (9-20); Calcium 8.9 mg/dL (8.4-10.2); Carbon Dioxide 31 mmol/L (22-30); Chloride 101 mmol/L (98-107); Glucose 74 mg/dL (74-99); Potassium 3.8 mmol/L (3.5-5.1); Sodium 141 mmol/L (137-145); Total Bilirubin 0.2 mg/dL (0.2-1.3); Total Protein 5.8 g/dL (6.3-8.2)
== END 2017-06-15 14:23 | disposition home or self-care (01) | DRG 639 ==
LOC: EC 09:35 → 6SEL 14:12
PROVIDERS: ADMIT Family Medicine; ATTEND Family Medicine
DX: E11.10 Type 2 diabetes mellitus with ketoacidosis without coma (principal); E78.5 Hyperlipidemia, unspecified; K21.9 Gastro-esophageal reflux disease without esophagitis; G40.909 Epilepsy, unspecified, not intractable, without status epilepticus; M19.90 Unspecified osteoarthritis, unspecified site; E86.0 Dehydration; Z79.4 Long term (current) use of insulin; Z79.899 Other long term (current) drug therapy; Z82.49 Family history of ischemic heart disease and other diseases of the circulatory system; Z83.3 Family history of diabetes mellitus
CPT/HCPCS: 36415; 71046; 74018; 74177; 80048; 80051; 80053; 81001; 82150; 82550; 82553; 82565; 82947; 83605; 83690; 84100; 84484; 84520; 85025; 85610; 85730; 87040; 93005; 96361; 96374; 96375; 96376; 99285

== ENCOUNTER 2017-12-18 22:17 | Emergency (ER) | payer OTHER ==
[2017-12-18] MEDS ORDERED: SODIUM CHLORIDE 0.9% 1,000 ML IV STA (23:20)
[2017-12-19 00:15] LABS: Basophils % (A) 0 %; Eosinophils # (A) 0.1 k/uL (0-0.7); Eosinophils % (A) 1 %; HCT 42.6 % (39.0-53.0); HGB 14.3 gm/dL (13.0-17.5); Lymphocytes # (A) 1.4 k/uL (1.0-4.8); Lymphocytes % (A) 17 %; MCH 29.9 pg (25.0-35.0); MCHC 33.6 g/dL (31.0-37.0); Mean Platelet Volume 6.9; Monocytes # (A) 0.5 k/uL (0-1.0); Monocytes % (A) 6 %; Neutrophils % (A) 73 %; Platelet Count 305 k/uL (150-450); RBC 4.79 m/uL (4.30-5.90); RDW 12.8 % (11.5-15.5); WBC 8.2 k/uL (3.8-10.6)
[2017-12-19 00:30] LABS: ALT 20 U/L (21-72); AST 16 U/L (17-59); Albumin 3.8 g/dL (3.5-5.0); Alkaline Phosphatase 91 U/L (38-126); Amylase 60 U/L (30-110); Anion Gap 13 mmol/L; Blood Urea Nitrogen 14 mg/dL (9-20); Calcium 9.4 mg/dL (8.4-10.2); Carbon Dioxide 23 mmol/L (22-30); Chloride 99 mmol/L (98-107); Glucose 442 mg/dL (74-99); Lipase 90 U/L (23-300); Potassium 4.4 mmol/L (3.5-5.1); Sodium 135 mmol/L (137-145); Total Bilirubin 0.3 mg/dL (0.2-1.3); Total Protein 6.4 g/dL (6.3-8.2)
[2017-12-19] MEDS ORDERED: INSULIN ASPART 100 UNIT/ML 1 ML 10 ML VIAL SQ ONE (00:39)
[2017-12-19] MEDS ORDERED: SODIUM CHLORIDE 0.9% 500 ML 500 ML IV ONE (00:39)
--- NOTE | 2017-12-19 00:42 | ED ---
Nausea/Vomiting/Diarrhea HPI - General Source: patient Mode of arrival: ambulatory Limitations: no limitations <Lyn Bhandari - Last Filed: 12/19/17 04:07> <Kourtney John - Last Filed: 12/20/17 00:22> - General Chief complaint: Nausea/Vomiting/Diarrhea Stated complaint: constipation Time Seen by Provider: 12/18/17 22:30 - History of Present Illness Initial comments: 57-year-old male patient presents to the emergency department today for evaluation of diarrhea. Patient states that he has had frequent liquidy bowel movements starting this morning. Patient states he has had countless episodes. States that the stool is normal color. Denies any hematochezia or melena. He denies any abdominal pain, nausea, or vomiting. Patient does have a history of diabetes and states that his sugar was 167 prior to arrival. He denies any fever, chills, recent antibiotic use, recent travel, or sick contacts. Patient denies any recent rash, shortness breath, chest pain, back pain, numbness, tingling, dizziness, weakness, hematuria, dysuria, urinary urgency, urinary frequency, headache, visual changes, or any other complaints. He denies alcohol or drug use. (Lyn Bhandari) - Related Data Home Medications Medication Instructions Recorded Confirmed Phenytoin Sodium Extended 200 mg PO BID 11/17/16 12/18/17 [Dilantin] Omeprazole 20 mg PO DAILY 06/13/17 12/18/17 Sertraline [Zoloft] 50 mg PO HS 06/13/17 12/18/17 Insulin Glargine,Hum.rec.anlog 20 unit SQ HS 12/18/17 12/18/17 [Basaglar Kwikpen U-100] Insulin Glargine,Hum.rec.anlog 30 unit SQ QAM 12/18/17 12/18/17 [Basaglar Kwikpen U-100] Insulin Lispro [humaLOG Kwikpen] See Protocol SQ ACHS 12/18/17 12/18/17 Losartan Potassium [Cozaar] 100 mg PO DAILY 12/18/17 12/18/17 metFORMIN HCL 1,000 mg PO BID 12/18/17 12/18/17 Allergies Allergy/AdvReac Type Severity Reaction Status Date / Time No Known Allergies Allergy Verified 12/18/17 22:36 Review of Systems ROS Other: All systems not noted in ROS Statement are negative. <Lyn Bhandari - Last Filed: 12/19/17 04:07> ROS Other: All systems not noted in ROS Statement are negative. <Kourtney John Shubham - Last Filed: 12/20/17 00:22> ROS Statement: Those systems with pertinent positive or pertinent negative responses have been documented in the HPI. 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 Vital signs upon presentation are temperature 98.2F, pulse 126, respirations 20, blood pressure 145/84, pulse ox 93% on room air.) Eye exam: Present: normal appearance, PERRL, EOMI. Absent: scleral icterus, conjunctival injection, periorbital swelling ENT exam: Present: normal exam, normal oropharynx, mucous membranes moist Respiratory exam: Present: normal lung sounds bilaterally. Absent: respiratory distress, wheezes, rales, rhonchi, stridor Cardiovascular Exam: Present: regular rate, normal rhythm, normal heart sounds. Absent: systolic murmur, diastolic murmur, rubs, gallop, clicks GI/Abdominal exam: Present: soft, normal bowel sounds. Absent: distended, tenderness, guarding, rebound, rigid Neurological exam: Present: alert, oriented X3, CN II-XII intact Psychiatric exam: Present: normal affect, normal mood Skin exam: Present: warm, dry, intact, normal color. Absent: rash <Lyn Bhandari - Last Filed: 12/19/17 04:07> Vital Signs 12/18/17 12/18/17 12/19/17 22:22 23:19 01:14 Temperature 98.2 F Pulse Rate 126 H 108 H 100 Respiratory 20 20 18 Rate Blood Pressure 145/84 140/79 149/74 O2 Sat by Pulse 93 L 95 96 Oximetry 12/19/17 03:31 Temperature 97 F L Pulse Rate 77 Respiratory 18 Rate Blood Pressure 147/78 O2 Sat by Pulse 97 Oximetry Medical Decision Making - Lab Data Result diagrams: 12/19/17 00:04 12/19/17 00:04 - EKG Data -: EKG Interpreted by Me <Lyn Bhandari - Last Filed: 12/19/17 04:07> - Lab Data Result diagrams: 12/19/17 00:04 12/19/17 00:04 <Kourtney John - Last Filed: 12/20/17 00:22> - Medical Decision Making 57-year-old male patient presented to the emergency department today for evaluation of diarrhea. Physical examination is unremarkable. Abdomen soft and nontender. Patient denied any abdominal pain. Patient is afebrile, vital signs stable. Blood sugar was found to be elevated at 441, acetone positive. We did administer IV fluids and subcutaneous insulin here in the department. Blood sugar did come down to 226. We did administer Imodium for diarrhea. Patient had no recent antibiotic use, no recent travel, no recent sick contacts. He'll be discharged in stable condition. He is instructed to follow- up with his primary care physician for recheck. Return parameters were discussed in detail. He verbalizes understanding and agrees with this plan. (Lyn Bhandari) I was available for consultation in the emergency department. The history and physical exam were done by the midlevel provider. I was consulted for this patient's care. I reviewed the case with the midlevel provider and based on their presentation of the patient, I agree with the assessment, medical decision making and plan of care as documented. (Kourtney John) - Lab Data Lab Results 12/19/17 12/19/17 12/19/17 Range/Units 00:04 00:04 00:04 WBC 8.2 (3.8-10.6) k/uL RBC 4.79 (4.30-5.90) m/uL Hgb 14.3 (13.0-17.5) gm/dL Hct 42.6 (39.0-53.0) % MCV 89.0 (80.0-100.0) fL MCH 29.9 (25.0-35.0) pg MCHC 33.6 (31.0-37.0) g/dL RDW 12.8 (11.5-15.5) % Plt Count 305 (150-450) k/uL Neutrophils % 73 % Lymphocytes % 17 % Monocytes % 6 % Eosinophils % 1 % Basophils % 0 % Neutrophils # 6.0 (1.3-7.7) k/uL Lymphocytes # 1.4 (1.0-4.8) k/uL Monocytes # 0.5 (0-1.0) k/uL Eosinophils # 0.1 (0-0.7) k/uL Basophils # 0.0 (0-0.2) k/uL Sodium 135 L (137-145) mmol/L Potassium 4.4 (3.5-5.1) mmol/L Chloride 99 (98-107) mmol/L Carbon Dioxide 23 (22-30) mmol/L Anion Gap 13 mmol/L BUN 14 (9-20) mg/dL Creatinine 0.56 L (0.66-1.25) mg/dL Est GFR (CKD-EPI)AfAm >90 (>60 ml/min/1.73 sqM) Est GFR (CKD-EPI)NonAf >90 (>60 ml/min/1.73 sqM) Glucose 442 H (74-99) mg/dL POC Glucose (mg/dL) (75-99) mg/dL POC Glu [employer] Consultant ID Calcium 9.4 (8.4-10.2) mg/dL Total Bilirubin 0.3 (0.2-1.3) mg/dL AST 16 L (17-59) U/L ALT 20 L (21-72) U/L Alkaline Phosphatase 91 (38-126) U/L Total Protein 6.4 (6.3-8.2) g/dL Albumin 3.8 (3.5-5.0) g/dL Amylase 60 (30-110) U/L Lipase 90 (23-300) U/L Acetone, Qual Positive (Negative) 12/19/17 12/19/17 Range/Units 01:13 03:20 WBC (3.8-10.6) k/uL RBC (4.30-5.90) m/uL Hgb (13.0-17.5) gm/dL Hct (39.0-53.0) % MCV (80.0-100.0) fL MCH (25.0-35.0) pg MCHC (31.0-37.0) g/dL RDW (11.5-15.5) % Plt Count (150-450) k/uL Neutrophils % % Lymphocytes % % Monocytes % % Eosinophils % % Basophils % % Neutrophils # (1.3-7.7) k/uL Lymphocytes # (1.0-4.8) k/uL Monocytes # (0-1.0) k/uL Eosinophils # (0-0.7) k/uL Basophils # (0-0.2) k/uL Sodium (137-145) mmol/L Potassium (3.5-5.1) mmol/L Chloride (98-107) mmol/L Carbon Dioxide (22-30) mmol/L Anion Gap mmol/L BUN (9-20) mg/dL Creatinine (0.66-1.25) mg/dL Est GFR (CKD-EPI)AfAm (>60 ml/min/1.73 sqM) Est GFR (CKD-EPI)NonAf (>60 ml/min/1.73 sqM) Glucose (74-99) mg/dL POC Glucose (mg/dL) 341 H 226 H (75-99) mg/dL POC Glu [employer] [facility] Consultant ID Sophie Yadav Matthew Calcium (8.4-10.2) mg/dL Total Bilirubin (0.2-1.3) mg/dL AST (17-59) U/L ALT (21-72) U/L Alkaline Phosphatase (38-126) U/L Total Protein (6.3-8.2) g/dL Albumin (3.5-5.0) g/dL Amylase (30-110) U/L Lipase (23-300) U/L Acetone, Qual (Negative) - EKG Data EKG Comments: EKG obtained at 2332 shows sinus tachycardia with ventricular rate of 107, NH interval 132, QRS duration 88, QT 324, QTC 432. No evidence of ST elevation or depression. (Lyn Bhandari) Disposition Is patient prescribed a controlled substance at d/c from ED?: No Time of Disposition: 03:28 <Lyn Bhandari - Last Filed: 12/19/17 04:07> <Kourtney John - Last Filed: 12/20/17 00:22> Clinical Impression: Acute diarrhea, Hyperglycemia Disposition: HOME SELF-CARE Condition: Good Instructions: Acute Diarrhea (ED), Diabetic Hyperglycemia (ED) Additional Instructions: Increase fluids. Follow-up with her primary care physician for recheck in 1-2 days. Monitor blood sugars closely. Return here immediately for any new, worsening, or concerning symptoms. Referrals: Yaw Manzanares MD [Primary Care Provider] - 1-2 days
[2017-12-19 01:16] VITALS: RESP 18
[2017-12-19 01:17] LABS: Glucose,Whole Blood 341 mg/dL (75-99)
[2017-12-19] MEDS ORDERED: INSULIN ASPART 100 UNIT/ML 1 ML 10 ML VIAL SQ STA (01:52)
[2017-12-19] MEDS ORDERED: LOPERAMIDE 2 MG CAP PO STA ×2 (03:22→03:27)
[2017-12-19 03:38] VITALS: BP 147/78; PULSE 77; TEMP 97
[2017-12-19 04:22] LABS: Glucose,Whole Blood 226 mg/dL (75-99)
== END 2017-12-19 03:38 | disposition home or self-care (01) ==
LOC: EC 22:17
DX: E11.65 Type 2 diabetes mellitus with hyperglycemia (principal); R19.7 Diarrhea, unspecified; K21.9 Gastro-esophageal reflux disease without esophagitis; G40.909 Epilepsy, unspecified, not intractable, without status epilepticus; Z79.4 Long term (current) use of insulin; Z79.899 Other long term (current) drug therapy; Z83.3 Family history of diabetes mellitus; Z85.828 Personal history of other malignant neoplasm of skin
CPT/HCPCS: 36415; 80053; 82009; 82150; 83690; 85025; 96360; 96361; 99284

== ENCOUNTER 2017-12-26 09:38 | Emergency (ER) | payer OTHER ==
[2017-12-26 09:47] VITALS: RESP 18; TEMP 96.9
[2017-12-26] MEDS ORDERED: SODIUM CHLORIDE 0.9% 1,000 ML IV STA (10:14)
--- NOTE | 2017-12-26 10:20 | ED ---
General Adult HPI - General Chief complaint: Nausea/Vomiting/Diarrhea Stated complaint: DIARRHEA Time Seen by Provider: 12/26/17 09:58 Source: patient, RN notes reviewed Mode of arrival: ambulatory Limitations: no limitations - History of Present Illness Initial comments: 57-year-old male presents emergency Department chief complaint of diarrhea. Patient states that he's been up all night with diarrhea. Patient states he is here last week with some her symptoms. Patient states he result of her 24 hours. Patient denies any abdominal pain, cramping, fever, chills, dysuria, hematuria, melena, hematochezia, chest pain, shortness breath, headache or dizziness. Patient states she strictly as diarrhea no other associated symptoms no recent antibiotic use no recent traveling. - Related Data Home Medications Medication Instructions Recorded Confirmed Phenytoin Sodium Extended 200 mg PO BID 11/17/16 12/18/17 [Dilantin] Omeprazole 20 mg PO DAILY 06/13/17 12/18/17 Sertraline [Zoloft] 50 mg PO HS 06/13/17 12/18/17 Insulin Glargine,Hum.rec.anlog 20 unit SQ HS 12/18/17 12/18/17 [Basaglar Kwikpen U-100] Insulin Glargine,Hum.rec.anlog 30 unit SQ QAM 12/18/17 12/18/17 [Basaglar Kwikpen U-100] Insulin Lispro [humaLOG Kwikpen] See Protocol SQ ACHS 12/18/17 12/18/17 Losartan Potassium [Cozaar] 100 mg PO DAILY 12/18/17 12/18/17 metFORMIN HCL 1,000 mg PO BID 12/18/17 12/18/17 Allergies Allergy/AdvReac Type Severity Reaction Status Date / Time No Known Allergies Allergy Verified 12/26/17 09:47 Review of Systems ROS Statement: Those systems with pertinent positive or pertinent negative responses have been documented in the HPI. ROS Other: All systems not noted in ROS Statement are negative. 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 Past Anesthesia/Blood Transfusion Reactions: No Reported Reaction Past Psychological History: No Psychological Hx Reported Smoking Status: Never smoker Past Alcohol Use History: None Reported Past Drug Use History: None Reported - Past Family History Father Family Medical History: Diabetes Mellitus, Myocardial Infarction ([place]) Additional Family Medical History / Comment(s): AT AGE 57 Mother Family Medical History: Cancer General Exam Limitations: no limitations General appearance: alert, in no apparent distress Head exam: Present: atraumatic, normocephalic, normal inspection Respiratory exam: Present: normal lung sounds bilaterally. Absent: respiratory distress, wheezes, rales, rhonchi, stridor Cardiovascular Exam: Present: normal rhythm, tachycardia, normal heart sounds. Absent: systolic murmur, diastolic murmur, rubs, gallop, clicks GI/Abdominal exam: Present: soft, normal bowel sounds. Absent: distended, tenderness, guarding, rebound, rigid Back exam: Absent: CVA tenderness (R), CVA tenderness (L) Course Vital Signs 12/26/17 09:40 Temperature 96.9 F L Pulse Rate 121 H Respiratory 18 Rate Blood Pressure 136/70 O2 Sat by Pulse 100 Oximetry Medical Decision Making - Medical Decision Making 57-year-old male presented for diarrhea and said nausea. Patient had prior problems in the past with some symptoms. Lab work reviewed and urinalysis revealed no acute abnormality. Patient discharged - Lab Data Result diagrams: 12/26/17 11:05 12/26/17 11:05 Lab Results 12/26/17 12/26/17 12/26/17 Range/Units 11:05 11:05 14:06 WBC 8.8 (3.8-10.6) k/uL RBC 5.01 (4.30-5.90) m/uL Hgb 14.6 (13.0-17.5) gm/dL Hct 44.8 (39.0-53.0) % MCV 89.5 (80.0-100.0) fL MCH 29.1 (25.0-35.0) pg MCHC 32.5 (31.0-37.0) g/dL RDW 13.0 (11.5-15.5) % Plt Count 330 (150-450) k/uL Neutrophils % 80 % Lymphocytes % 13 % Monocytes % 4 % Eosinophils % 2 % Basophils % 0 % Neutrophils # 7.1 (1.3-7.7) k/uL Lymphocytes # 1.1 (1.0-4.8) k/uL Monocytes # 0.4 (0-1.0) k/uL Eosinophils # 0.2 (0-0.7) k/uL Basophils # 0.0 (0-0.2) k/uL Sodium 135 L (137-145) mmol/L Potassium 4.6 (3.5-5.1) mmol/L Chloride 98 (98-107) mmol/L Carbon Dioxide 28 (22-30) mmol/L Anion Gap 9 mmol/L BUN 19 (9-20) mg/dL Creatinine 0.55 L (0.66-1.25) mg/dL Est GFR (CKD-EPI)AfAm >90 (>60 ml/min/1.73 sqM) Est GFR (CKD-EPI)NonAf >90 (>60 ml/min/1.73 sqM) Glucose 287 H (74-99) mg/dL Calcium 9.4 (8.4-10.2) mg/dL Total Bilirubin 0.3 (0.2-1.3) mg/dL AST 21 (17-59) U/L ALT 24 (21-72) U/L Alkaline Phosphatase 79 (38-126) U/L Total Protein 7.0 (6.3-8.2) g/dL Albumin 4.2 (3.5-5.0) g/dL Amylase 74 (30-110) U/L Lipase 63 (23-300) U/L Urine Color Yellow Urine Appearance Clear (Clear) Urine pH 5.5 (5.0-8.0) Ur Specific [place] 1.033 (1.001-1.035) Urine Protein Negative (Negative) Urine Glucose (UA) 4+ H (Negative) Urine Ketones 1+ H (Negative) Urine Blood Negative (Negative) Urine Nitrite Negative (Negative) Urine Bilirubin Negative (Negative) Urine Urobilinogen <2.0 (<2.0) mg/dL Ur Leukocyte Esterase Negative (Negative) Disposition Clinical Impression: Acute diarrhea Disposition: HOME SELF-CARE Condition: Stable Instructions: Acute Diarrhea (ED) Additional Instructions: Please return to the Emergency Department if symptoms worsen or any other concerns. Is patient prescribed a controlled substance at d/c from ED?: No Referrals: Yaw Manzanares MD [Primary Care Provider] - 1-2 days Time of Disposition: 14:44
[2017-12-26 11:17] LABS: Basophils % (A) 0 %; Eosinophils # (A) 0.2 k/uL (0-0.7); Eosinophils % (A) 2 %; HCT 44.8 % (39.0-53.0); HGB 14.6 gm/dL (13.0-17.5); Lymphocytes # (A) 1.1 k/uL (1.0-4.8); Lymphocytes % (A) 13 %; MCH 29.1 pg (25.0-35.0); MCHC 32.5 g/dL (31.0-37.0); MCV 89.5 fL (80.0-100.0); Mean Platelet Volume 6.7; Monocytes # (A) 0.4 k/uL (0-1.0); Monocytes % (A) 4 %; Neutrophils # (A) 7.1 k/uL (1.3-7.7); Neutrophils % (A) 80 %; Platelet Count 330 k/uL (150-450); RBC 5.01 m/uL (4.30-5.90); WBC 8.8 k/uL (3.8-10.6)
[2017-12-26 11:35] LABS: ALT 24 U/L (21-72); AST 21 U/L (17-59); Albumin 4.2 g/dL (3.5-5.0); Alkaline Phosphatase 79 U/L (38-126); Amylase 74 U/L (30-110); Anion Gap 9 mmol/L; Blood Urea Nitrogen 19 mg/dL (9-20); Calcium 9.4 mg/dL (8.4-10.2); Carbon Dioxide 28 mmol/L (22-30); Chloride 98 mmol/L (98-107); Glucose 287 mg/dL (74-99); Lipase 63 U/L (23-300); Potassium 4.6 mmol/L (3.5-5.1); Sodium 135 mmol/L (137-145); Total Bilirubin 0.3 mg/dL (0.2-1.3)
--- NOTE | 2017-12-26 12:01 | XR ---
EXAMINATION TYPE: XR KUB , 2 VIEWS DATE OF EXAM ORDERED: 12/26/2017 HISTORY: pain. COMPARISON: Previous study dated 06/13/2017. FINDINGS: The lung bases are clear. Within the abdomen, the abdominal gas pattern is normal. There is no evidence of obstruction or free air. There is calcification of the seminal vesicles. IMPRESSION: NO ACUTE INTRA-ABDOMINAL ABNORMALITY.
[2017-12-26 14:31] LABS: Appearance,Urine Clear (Clear); Bilirubin,Urine Negative (Negative); Blood,Urine Negative (Negative); Color,Urine Yellow; Glucose,Urine (UA) 4+ (Negative); Ketones,Urine 1+ (Negative); Leukocyte Esterase,Urine Negative (Negative); Nitrite,Urine Negative (Negative); PH, Urine 5.5 (5.0-8.0); Protein,Urine Negative (Negative); Specific Gravity,Urine 1.033 (1.001-1.035); Urobilinogen,Urine <2.0 mg/dL (<2.0)
[2017-12-26] MEDS ORDERED: LOPERAMIDE 2 MG CAP PO STA (14:42)
[2017-12-26 15:17] VITALS: BP 120/75; PULSE 79
== END 2017-12-26 15:56 | disposition home or self-care (01) ==
LOC: EC 09:38
DX: R19.7 Diarrhea, unspecified (principal); R00.0 Tachycardia, unspecified; R11.0 Nausea; E11.9 Type 2 diabetes mellitus without complications; K21.9 Gastro-esophageal reflux disease without esophagitis; G40.909 Epilepsy, unspecified, not intractable, without status epilepticus; Z79.4 Long term (current) use of insulin; Z79.899 Other long term (current) drug therapy; Z85.828 Personal history of other malignant neoplasm of skin; Z98.890 Other specified postprocedural states
CPT/HCPCS: 36415; 74018; 80053; 81003; 82150; 83690; 85025; 93005; 96360; 96361; 99284

== ENCOUNTER 2018-01-29 23:46 | Emergency (ER) | payer OTHER ==
[2018-01-30] MEDS ORDERED: DICYCLOMINE 10 MG/ML 2 ML AMP IM STA (00:10)
[2018-01-30] MEDS ORDERED: SODIUM CHLORIDE 0.9% 1,000 ML IV ONE (00:10)
[2018-01-30] MEDS ORDERED: KETOROLAC 30 MG/ML 1 ML VIAL IVP STA (00:10)
--- NOTE | 2018-01-30 00:41 | ED ---
General Adult HPI - General Chief complaint: Abdominal Pain Stated complaint: ABD PAIN Time Seen by Provider: 01/29/18 23:53 Source: patient Mode of arrival: ambulatory Limitations: no limitations - History of Present Illness Initial comments: This is a 57-year-old male who presents emergency department for diarrhea and abdominal cramping. He states that the symptoms started earlier today. He states that he's had multiple episodes of diarrhea today. No nausea or vomiting. No fevers or chills. He states that he has a cramping sensation in his abdomen and also feels very achy. He denies any lightheadedness or dizziness. He denies any dysuria or hematuria. Urine output has been normal. His blood sugars of an running normal at home. The patient was evaluated for this approximately one month ago and no acute pathology was found. He was referred to a back maker however he has not followed up with him yet. He denies any other acute complaint. - Related Data Home Medications Medication Instructions Recorded Confirmed Phenytoin Sodium Extended 200 mg PO BID 11/17/16 12/26/17 [Dilantin] Omeprazole 20 mg PO DAILY 06/13/17 12/26/17 Sertraline [Zoloft] 50 mg PO HS 06/13/17 12/26/17 Insulin Glargine,Hum.rec.anlog 20 unit SQ HS 12/18/17 12/26/17 [Basaglar Kwikpen U-100] Insulin Glargine,Hum.rec.anlog 30 unit SQ QAM 12/18/17 12/26/17 [Basaglar Kwikpen U-100] Insulin Lispro [humaLOG Kwikpen] See Protocol SQ ACHS 12/18/17 12/26/17 Losartan Potassium [Cozaar] 100 mg PO DAILY 12/18/17 12/26/17 metFORMIN HCL 1,000 mg PO BID 12/18/17 12/26/17 Previous Rx's Medication Instructions Recorded Dicyclomine [Bentyl] 10 mg PO QID #20 capsule 01/30/18 Allergies Allergy/AdvReac Type Severity Reaction Status Date / Time No Known Allergies Allergy Verified 01/29/18 23:49 Review of Systems ROS Statement: Those systems with pertinent positive or pertinent negative responses have been documented in the HPI. ROS Other: All systems not noted in ROS Statement are negative. 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 Past Anesthesia/Blood Transfusion Reactions: No Reported Reaction Past Psychological History: No Psychological Hx Reported Smoking Status: Never smoker Past Alcohol Use History: None Reported Past Drug Use History: None Reported - Past Family History Father Family Medical History: Diabetes Mellitus, Myocardial Infarction ([place]) Additional Family Medical History / Comment(s): AT AGE 57 Mother Family Medical History: Cancer General Exam - General Exam Comments Initial Comments: Constitutional: Awake alert Appears comfortable Head: Normocephalic atraumatic Eyes: no conjunctival injection No scleral icterus EOMI Neck: No JVD Supple Heart: Regular rate rhythm normal S1-S2 no murmurs Lungs: Clear to auscultation bilaterally No wheezing No rales Abdomen: Soft nondistended nontender Extremities: Non edematous DP pulses intact Radial pulses intact Neuro: A&Ox3 No focal neurologic deficits Psych: Appropriate mood and affect Limitations: no limitations Course Vital Signs 01/29/18 23:47 Temperature 97.5 F L Pulse Rate 112 H Respiratory 20 Rate Blood Pressure 152/88 O2 Sat by Pulse 99 Oximetry Medical Decision Making - Medical Decision Making This is a 57-year-old male who presented emergency department for diarrhea and abdominal cramping. The patient had no tenderness on examination. X-ray did not show any evidence for obstruction. Blood work was unremarkable except for mildly elevated blood sugar. The patient stated that he felt improved after Toradol and Bentyl. He has an appointment with his back maker in 3 days. Previously he stated he did not have follow-up however now he states he does. Going to send him home on Bentyl to improve his symptoms at home. He can return if he has worsening or changing symptoms. All questions answered. - Lab Data Result diagrams: 01/30/18 00:40 01/30/18 00:40 Lab Results 01/30/18 01/30/18 Range/Units 00:40 00:40 WBC 5.9 (3.8-10.6) k/uL RBC 4.96 (4.30-5.90) m/uL Hgb 14.4 (13.0-17.5) gm/dL Hct 45.4 (39.0-53.0) % MCV 91.5 (80.0-100.0) fL MCH 29.0 (25.0-35.0) pg MCHC 31.7 (31.0-37.0) g/dL RDW 12.5 (11.5-15.5) % Plt Count 357 (150-450) k/uL Neutrophils % 55 % Lymphocytes % 33 % Monocytes % 7 % Eosinophils % 2 % Basophils % 1 % Neutrophils # 3.2 (1.3-7.7) k/uL Lymphocytes # 1.9 (1.0-4.8) k/uL Monocytes # 0.4 (0-1.0) k/uL Eosinophils # 0.1 (0-0.7) k/uL Basophils # 0.0 (0-0.2) k/uL Sodium 133 L (137-145) mmol/L Potassium 4.5 (3.5-5.1) mmol/L Chloride 99 (98-107) mmol/L Carbon Dioxide 27 (22-30) mmol/L Anion Gap 7 mmol/L BUN 18 (9-20) mg/dL Creatinine 0.58 L (0.66-1.25) mg/dL Est GFR (CKD-EPI)AfAm >90 (>60 ml/min/1.73 sqM) Est GFR (CKD-EPI)NonAf >90 (>60 ml/min/1.73 sqM) Glucose 378 H (74-99) mg/dL Calcium 9.5 (8.4-10.2) mg/dL Magnesium 1.9 (1.6-2.3) mg/dL Total Bilirubin 0.3 (0.2-1.3) mg/dL AST 18 (17-59) U/L ALT 19 L (21-72) U/L Alkaline Phosphatase 84 (38-126) U/L Total Protein 6.7 (6.3-8.2) g/dL Albumin 3.9 (3.5-5.0) g/dL Lipase 135 (23-300) U/L Disposition Clinical Impression: Diarrhea Disposition: HOME SELF-CARE Condition: Stable Instructions: Acute Diarrhea (ED) Additional Instructions: Follow up with your GI specialist on Thursday. Prescriptions: Dicyclomine [Bentyl] 10 mg PO QID #20 capsule Is patient prescribed a controlled substance at d/c from ED?: No Referrals: Yaw Manzanares MD [Primary Care Provider] - 1-2 days
[2018-01-30 00:54] LABS: Basophils % (A) 1 %; Eosinophils # (A) 0.1 k/uL (0-0.7); Eosinophils % (A) 2 %; HCT 45.4 % (39.0-53.0); HGB 14.4 gm/dL (13.0-17.5); Lymphocytes # (A) 1.9 k/uL (1.0-4.8); Lymphocytes % (A) 33 %; MCHC 31.7 g/dL (31.0-37.0); MCV 91.5 fL (80.0-100.0); Mean Platelet Volume 6.5; Monocytes # (A) 0.4 k/uL (0-1.0); Monocytes % (A) 7 %; Neutrophils # (A) 3.2 k/uL (1.3-7.7); Neutrophils % (A) 55 %; Platelet Count 357 k/uL (150-450); RBC 4.96 m/uL (4.30-5.90); RDW 12.5 % (11.5-15.5); WBC 5.9 k/uL (3.8-10.6)
--- NOTE | 2018-01-30 01:01 | XR ---
EXAMINATION TYPE: XR abdomen acute w cxr DATE OF EXAM: 01/30/2018 COMPARISON: 06/04/2017 HISTORY: Abdominal pain TECHNIQUE: Chest x-ray with supine and upright abdomen FINDINGS: Heart and mediastinum are normal. Lungs are clear. Diaphragm is normal. Bony thorax is intact. Pulmon braulio vascularity is normal. Bowel gas pattern is normal. There is no sign of intestinal obstruction or pneumoperitoneum. Fecal pa ttern is normal. There are no pathologic calcifications over the kidneys. There is possible calcified vas deferens which is associated with diabetes. IMPRESSION: Normal chest. Nonacute abdomen. No change.
[2018-01-30 01:05] LABS: ALT 19 U/L (21-72); AST 18 U/L (17-59); Albumin 3.9 g/dL (3.5-5.0); Alkaline Phosphatase 84 U/L (38-126); Anion Gap 7 mmol/L; Blood Urea Nitrogen 18 mg/dL (9-20); Calcium 9.5 mg/dL (8.4-10.2); Carbon Dioxide 27 mmol/L (22-30); Chloride 99 mmol/L (98-107); Glucose 378 mg/dL (74-99); Lipase 135 U/L (23-300); Magnesium 1.9 mg/dL (1.6-2.3); Potassium 4.5 mmol/L (3.5-5.1); Sodium 133 mmol/L (137-145); Total Bilirubin 0.3 mg/dL (0.2-1.3); Total Protein 6.7 g/dL (6.3-8.2)
[2018-01-30 01:48] VITALS: BP 144/74; PULSE 88; RESP 16; TEMP 98
== END 2018-01-30 01:48 | disposition home or self-care (01) ==
LOC: EC 23:46
DX: R19.7 Diarrhea, unspecified (principal); R10.9 Unspecified abdominal pain; K21.9 Gastro-esophageal reflux disease without esophagitis; G40.909 Epilepsy, unspecified, not intractable, without status epilepticus; E11.9 Type 2 diabetes mellitus without complications; Z79.4 Long term (current) use of insulin; Z79.899 Other long term (current) drug therapy
CPT/HCPCS: 36415; 80053; 83690; 83735; 85025; 74022; 99284; 96374; 96361; 96372; J0500; J1885

== ENCOUNTER 2018-03-11 08:54 | Emergency (ER) | payer OTHER ==
[2018-03-11 09:11] VITALS: RESP 18; TEMP 97.8
[2018-03-11] MEDS ORDERED: SODIUM CHLORIDE 0.9% 2,000 ML IV STA (09:21)
--- NOTE | 2018-03-11 09:50 | ED ---
Nausea/Vomiting/Diarrhea HPI - General Chief complaint: Nausea/Vomiting/Diarrhea Stated complaint: Diarrhea Time Seen by Provider: 03/11/18 09:21 Source: patient, RN notes reviewed Mode of arrival: ambulatory Limitations: no limitations - History of Present Illness Initial comments: 57-year-old male presents emergency Department chief complaint of diarrhea. Patient states that diarrhea started overnight has worsen the morning. Patient states she's had several episodes of watery diarrhea no melena or hematochezia. Patient does admit to some nausea which has resolved. Denies fever, chills, chest pain, headache or dizziness. Patient is diabetic states his blood sugar has been around 130. Patient denies any dysuria hematuria. Patient offers no other complaints. - Related Data Home Medications Medication Instructions Recorded Confirmed Phenytoin Sodium Extended 200 mg PO BID 11/17/16 12/26/17 [Dilantin] Omeprazole 20 mg PO DAILY 06/13/17 12/26/17 Sertraline [Zoloft] 50 mg PO HS 06/13/17 12/26/17 Insulin Glargine,Hum.rec.anlog 20 unit SQ HS 12/18/17 12/26/17 [Basaglar Kwikpen U-100] Insulin Glargine,Hum.rec.anlog 30 unit SQ QAM 12/18/17 12/26/17 [Basaglar Kwikpen U-100] Insulin Lispro [humaLOG Kwikpen] See Protocol SQ ACHS 12/18/17 12/26/17 Losartan Potassium [Cozaar] 100 mg PO DAILY 12/18/17 12/26/17 metFORMIN HCL 1,000 mg PO BID 12/18/17 12/26/17 Previous Rx's Medication Instructions Recorded Dicyclomine [Bentyl] 10 mg PO QID #20 capsule 01/30/18 Allergies Allergy/AdvReac Type Severity Reaction Status Date / Time No Known Allergies Allergy Verified 01/29/18 23:49 Review of Systems ROS Statement: Those systems with pertinent positive or pertinent negative responses have been documented in the HPI. ROS Other: All systems not noted in ROS Statement are negative. 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 Past Anesthesia/Blood Transfusion Reactions: No Reported Reaction Past Psychological History: No Psychological Hx Reported Smoking Status: Never smoker Past Alcohol Use History: None Reported Past Drug Use History: None Reported - Past Family History Father Family Medical History: Diabetes Mellitus, Myocardial Infarction ([place]) Additional Family Medical History / Comment(s): AT AGE 57 Mother Family Medical History: Cancer General Exam General appearance: alert, in no apparent distress Head exam: Present: atraumatic, normocephalic, normal inspection Eye exam: Present: normal appearance, PERRL, EOMI. Absent: scleral icterus, conjunctival injection, periorbital swelling ENT exam: Present: normal exam, normal oropharynx, mucous membranes moist Neck exam: Present: normal inspection. Absent: tenderness, meningismus, lymphadenopathy Respiratory exam: Present: normal lung sounds bilaterally. Absent: respiratory distress, wheezes, rales, rhonchi, stridor Cardiovascular Exam: Present: normal rhythm, tachycardia, normal heart sounds. Absent: systolic murmur, diastolic murmur, rubs, gallop, clicks GI/Abdominal exam: Present: soft, normal bowel sounds. Absent: distended, tenderness, guarding, rebound, rigid Back exam: Absent: CVA tenderness (R), CVA tenderness (L) Skin exam: Present: warm, dry, intact, normal color. Absent: rash Course Vital Signs 03/11/18 09:08 Temperature 97.8 F Pulse Rate 118 H Respiratory 18 Rate Blood Pressure 112/71 O2 Sat by Pulse 96 Oximetry Medical Decision Making - Medical Decision Making 57-year-old male presented for diarrhea. Patient had lab work, urinalysis. Patient is found to be hyperglycemic. Patient was given IV fluid bolus, insulin. Patient does feel improved at this time will be discharged. We did discuss that he needs to control his blood sugar better and he should follow-up with his PCP. - Lab Data Result diagrams: 03/11/18 09:41 03/11/18 09:41 Lab Results 03/11/18 03/11/18 03/11/18 Range/Units 09:41 09:41 11:07 WBC 8.2 (3.8-10.6) k/uL RBC 5.22 (4.30-5.90) m/uL Hgb 14.9 (13.0-17.5) gm/dL Hct 45.5 (39.0-53.0) % MCV 87.1 (80.0-100.0) fL MCH 28.5 (25.0-35.0) pg MCHC 32.7 (31.0-37.0) g/dL RDW 12.4 (11.5-15.5) % Plt Count 291 (150-450) k/uL Neutrophils % 71 % Lymphocytes % 21 % Monocytes % 5 % Eosinophils % 1 % Basophils % 1 % Neutrophils # 5.8 (1.3-7.7) k/uL Lymphocytes # 1.7 (1.0-4.8) k/uL Monocytes # 0.4 (0-1.0) k/uL Eosinophils # 0.1 (0-0.7) k/uL Basophils # 0.1 (0-0.2) k/uL Sodium 134 L (137-145) mmol/L Potassium 4.7 (3.5-5.1) mmol/L Chloride 96 L (98-107) mmol/L Carbon Dioxide 29 (22-30) mmol/L Anion Gap 9 mmol/L BUN 24 H (9-20) mg/dL Creatinine 0.79 (0.66-1.25) mg/dL Est GFR (CKD-EPI)AfAm >90 (>60 ml/min/1.73 sqM) Est GFR (CKD-EPI)NonAf >90 (>60 ml/min/1.73 sqM) Glucose 380 H (74-99) mg/dL Calcium 9.6 (8.4-10.2) mg/dL Total Bilirubin 0.4 (0.2-1.3) mg/dL AST 18 (17-59) U/L ALT 19 L (21-72) U/L Alkaline Phosphatase 88 (38-126) U/L Total Protein 7.0 (6.3-8.2) g/dL Albumin 4.3 (3.5-5.0) g/dL Lipase 97 (23-300) U/L Urine Color Light Yellow Urine Appearance Clear (Clear) Urine pH 5.0 (5.0-8.0) Ur Specific [place] 1.030 (1.001-1.035) Urine Protein Negative (Negative) Urine Glucose (UA) 4+ H (Negative) Urine Blood Negative (Negative) Urine Nitrite Negative (Negative) Urine Bilirubin Negative (Negative) Urine Urobilinogen <2.0 (<2.0) mg/dL Ur Leukocyte Esterase Negative (Negative) Disposition Clinical Impression: Diarrhea, Uncontrolled diabetes mellitus, Hyperglycemia Disposition: HOME SELF-CARE Condition: Stable Instructions: Acute Diarrhea (ED) Additional Instructions: Please return to the Emergency Department if symptoms worsen or any other concerns. Is patient prescribed a controlled substance at d/c from ED?: No Referrals: Yaw Manzanares MD [Primary Care Provider] - 1-2 days Time of Disposition: 11:31
[2018-03-11 09:56] LABS: Basophils # (A) 0.1 k/uL (0-0.2); Basophils % (A) 1 %; Eosinophils # (A) 0.1 k/uL (0-0.7); Eosinophils % (A) 1 %; HCT 45.5 % (39.0-53.0); HGB 14.9 gm/dL (13.0-17.5); Lymphocytes # (A) 1.7 k/uL (1.0-4.8); Lymphocytes % (A) 21 %; MCH 28.5 pg (25.0-35.0); MCHC 32.7 g/dL (31.0-37.0); MCV 87.1 fL (80.0-100.0); Monocytes # (A) 0.4 k/uL (0-1.0); Monocytes % (A) 5 %; Neutrophils # (A) 5.8 k/uL (1.3-7.7); Neutrophils % (A) 71 %; Platelet Count 291 k/uL (150-450); RBC 5.22 m/uL (4.30-5.90); RDW 12.4 % (11.5-15.5); WBC 8.2 k/uL (3.8-10.6)
[2018-03-11 10:19] LABS: ALT 19 U/L (21-72); AST 18 U/L (17-59); Albumin 4.3 g/dL (3.5-5.0); Alkaline Phosphatase 88 U/L (38-126); Anion Gap 9 mmol/L; Blood Urea Nitrogen 24 mg/dL (9-20); Calcium 9.6 mg/dL (8.4-10.2); Carbon Dioxide 29 mmol/L (22-30); Chloride 96 mmol/L (98-107); Glucose 380 mg/dL (74-99); Lipase 97 U/L (23-300); Potassium 4.7 mmol/L (3.5-5.1); Sodium 134 mmol/L (137-145); Total Bilirubin 0.4 mg/dL (0.2-1.3)
[2018-03-11] MEDS ORDERED: INSULIN REGULAR 100 UNIT/ML VIAL IV ONE (10:38)
[2018-03-11 11:29] LABS: Appearance,Urine Clear (Clear); Bilirubin,Urine Negative (Negative); Blood,Urine Negative (Negative); Color,Urine Light Yellow; Glucose,Urine (UA) 4+ (Negative); Leukocyte Esterase,Urine Negative (Negative); Nitrite,Urine Negative (Negative); Protein,Urine Negative (Negative); Urobilinogen,Urine <2.0 mg/dL (<2.0)
[2018-03-11 11:30] LABS: Glucose,Whole Blood 291 mg/dL (75-99)
[2018-03-11 11:50] LABS: Ketones,Urine 2+ (Negative)
[2018-03-11 11:52] VITALS: PULSE 103
[2018-03-11 11:57] VITALS: BP 121/70
== END 2018-03-11 11:57 | disposition home or self-care (01) ==
LOC: EC 08:54
DX: E11.65 Type 2 diabetes mellitus with hyperglycemia (principal); R19.7 Diarrhea, unspecified; R00.0 Tachycardia, unspecified; K21.9 Gastro-esophageal reflux disease without esophagitis; G40.909 Epilepsy, unspecified, not intractable, without status epilepticus; Z79.4 Long term (current) use of insulin; Z79.899 Other long term (current) drug therapy; Z85.9 Personal history of malignant neoplasm, unspecified; Z98.890 Other specified postprocedural states; Z83.3 Family history of diabetes mellitus; Z82.49 Family history of ischemic heart disease and other diseases of the circulatory system
CPT/HCPCS: 36415; 80053; 81003; 83690; 85025; 96360; 99284

== ENCOUNTER 2018-04-19 09:16 | Emergency (ER) | payer OTHER ==
[2018-04-19 09:20] VITALS: RESP 18; TEMP 97.5
[2018-04-19] MEDS ORDERED: SODIUM CHLORIDE 0.9% 1,000 ML IV STA (10:05)
[2018-04-19] MEDS ORDERED: LOPERAMIDE 2 MG CAP PO STA (10:05)
--- NOTE | 2018-04-19 10:07 | ED ---
Nausea/Vomiting/Diarrhea HPI - General Chief complaint: Nausea/Vomiting/Diarrhea Stated complaint: diarrhea Time Seen by Provider: 04/19/18 09:29 Source: patient, RN notes reviewed, old records reviewed Mode of arrival: ambulatory Limitations: no limitations - History of Present Illness Initial comments: This Patient is a 57-year-old male who presents emergency room in today with complaints of diarrhea starting 3 AM. Patient states he did not eat anything that would've disagreed with him. He said a history of issues with bowel habits. Patient reports that he took Imodium and Pepto-Bismol with little relief. He reports his stool has been very dark. Patient states that he has had no chest pain shortness of breath or abdominal pain. Patient denies any rectal pain.Patient denies any recent fever, chills, shortness of breath, chest pain, back pain, abdominal pain, nausea vomiting, numbness or tingling, dysuria or hematuria, headaches or visual changes, or any other current symptoms - Related Data Home Medications Medication Instructions Recorded Confirmed Phenytoin Sodium Extended 200 mg PO BID 11/17/16 04/19/18 [Dilantin] Omeprazole 20 mg PO DAILY 06/13/17 04/19/18 Sertraline [Zoloft] 50 mg PO HS 06/13/17 04/19/18 metFORMIN HCL 1,000 mg PO BID 12/18/17 04/19/18 Insulin Lispro [humaLOG Kwikpen] 20 unit SQ DAILY 04/19/18 04/19/18 Pioglitazone HCl [Actos] 15 mg PO DAILY 04/19/18 04/19/18 Allergies Allergy/AdvReac Type Severity Reaction Status Date / Time No Known Allergies Allergy Verified 04/19/18 10:34 Review of Systems ROS Statement: Those systems with pertinent positive or pertinent negative responses have been documented in the HPI. ROS Other: All systems not noted in ROS Statement are negative. 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 Alert and oriented 3. Patient appears in no significant distress. Limitations: no limitations General appearance: alert, in no apparent distress Head exam: Present: atraumatic, normocephalic, normal inspection Eye exam: Present: normal appearance, PERRL, EOMI. Absent: scleral icterus, conjunctival injection, periorbital swelling ENT exam: Present: normal exam, mucous membranes moist Neck exam: Present: normal inspection. Absent: tenderness, meningismus, lymphadenopathy Respiratory exam: Present: normal lung sounds bilaterally. Absent: respiratory distress, wheezes, rales, rhonchi, stridor Cardiovascular Exam: Present: regular rate, normal rhythm, normal heart sounds. Absent: systolic murmur, diastolic murmur, rubs, gallop, clicks GI/Abdominal exam: Present: soft, normal bowel sounds. Absent: distended, tenderness, guarding, rebound, rigid Extremities exam: Present: normal inspection, full ROM, normal capillary refill. Absent: tenderness, pedal edema, joint swelling, calf tenderness Back exam: Present: normal inspection Neurological exam: Present: alert, oriented X3, CN II-XII intact Psychiatric exam: Present: normal affect, normal mood Course Vital Signs 04/19/18 04/19/18 04/19/18 09:17 10:15 12:51 Temperature 97.5 F L Pulse Rate 112 H 102 H 88 Respiratory 18 18 18 Rate Blood Pressure 141/76 123/73 O2 Sat by Pulse 98 95 98 Oximetry Medical Decision Making - Medical Decision Making 57 year old male with one day of diarrhea. Patient has fecal occult negative, negative Cdiff.Given IV fluids. He has normal lab work, no diarreha while in ED. HE has no abdominal tenderness. Discussed likely IBS or gastroenteritis and to follow up with PCP. He has been to ED multiple times for diarrhea, discussed GI follow up as well. - Lab Data Result diagrams: 04/19/18 10:09 04/19/18 10:09 Lab Results 04/19/18 04/19/18 04/19/18 Range/Units 10:00 10:00 10:00 WBC (3.8-10.6) k/uL RBC (4.30-5.90) m/uL Hgb (13.0-17.5) gm/dL Hct (39.0-53.0) % MCV (80.0-100.0) fL MCH (25.0-35.0) pg MCHC (31.0-37.0) g/dL RDW (11.5-15.5) % Plt Count (150-450) k/uL Neutrophils % % Lymphocytes % % Monocytes % % Eosinophils % % Basophils % % Neutrophils # (1.3-7.7) k/uL Lymphocytes # (1.0-4.8) k/uL Monocytes # (0-1.0) k/uL Eosinophils # (0-0.7) k/uL Basophils # (0-0.2) k/uL Sodium (137-145) mmol/L Potassium (3.5-5.1) mmol/L Chloride (98-107) mmol/L Carbon Dioxide (22-30) mmol/L Anion Gap mmol/L BUN (9-20) mg/dL Creatinine (0.66-1.25) mg/dL Est GFR (CKD-EPI)AfAm (>60 ml/min/1.73 sqM) Est GFR (CKD-EPI)NonAf (>60 ml/min/1.73 sqM) Glucose (74-99) mg/dL Calcium (8.4-10.2) mg/dL Total Bilirubin (0.2-1.3) mg/dL AST (17-59) U/L ALT (21-72) U/L Alkaline Phosphatase (38-126) U/L Total Protein (6.3-8.2) g/dL Albumin (3.5-5.0) g/dL Amylase (30-110) U/L Lipase (23-300) U/L Stool Occult Blood Negative (Negative) Stool Lactoferrin NEGATIVE (NEGATIVE) C. difficile (EIA) Intrp Negative (Negative) 04/19/18 04/19/18 Range/Units 10:09 10:09 WBC 7.7 (3.8-10.6) k/uL RBC 4.95 (4.30-5.90) m/uL Hgb 13.9 (13.0-17.5) gm/dL Hct 42.6 (39.0-53.0) % MCV 86.0 (80.0-100.0) fL MCH 28.1 (25.0-35.0) pg MCHC 32.7 (31.0-37.0) g/dL RDW 13.2 (11.5-15.5) % Plt Count 348 (150-450) k/uL Neutrophils % 74 % Lymphocytes % 18 % Monocytes % 5 % Eosinophils % 1 % Basophils % 1 % Neutrophils # 5.7 (1.3-7.7) k/uL Lymphocytes # 1.4 (1.0-4.8) k/uL Monocytes # 0.4 (0-1.0) k/uL Eosinophils # 0.1 (0-0.7) k/uL Basophils # 0.1 (0-0.2) k/uL Sodium 138 (137-145) mmol/L Potassium 4.6 (3.5-5.1) mmol/L Chloride 103 (98-107) mmol/L Carbon Dioxide 28 (22-30) mmol/L Anion Gap 7 mmol/L BUN 18 (9-20) mg/dL Creatinine 0.61 L (0.66-1.25) mg/dL Est GFR (CKD-EPI)AfAm >90 (>60 ml/min/1.73 sqM) Est GFR (CKD-EPI)NonAf >90 (>60 ml/min/1.73 sqM) Glucose 312 H (74-99) mg/dL Calcium 9.9 (8.4-10.2) mg/dL Total Bilirubin 0.3 (0.2-1.3) mg/dL AST 16 L (17-59) U/L ALT 26 (21-72) U/L Alkaline Phosphatase 77 (38-126) U/L Total Protein 6.5 (6.3-8.2) g/dL Albumin 3.9 (3.5-5.0) g/dL Amylase 62 (30-110) U/L Lipase 68 (23-300) U/L Stool Occult Blood (Negative) Stool Lactoferrin (NEGATIVE) C. difficile (EIA) Intrp (Negative) Disposition Clinical Impression: Diarrhea Disposition: HOME SELF-CARE Condition: Good Instructions (If sedation given, give patient instructions): Acute Diarrhea (ED ) Additional Instructions: Patient advised to have close follow-up with primary care physician. He continued to use Imodium. Patient should return to the emergency department if any alarming signs or symptoms occur. Is patient prescribed a controlled substance at d/c from ED?: No Referrals: Yaw Manzanares MD [Primary Care Provider] - 1-2 days Time of Disposition: 12:31
[2018-04-19 10:37] LABS: Basophils # (A) 0.1 k/uL (0-0.2); Basophils % (A) 1 %; Eosinophils # (A) 0.1 k/uL (0-0.7); Eosinophils % (A) 1 %; HCT 42.6 % (39.0-53.0); HGB 13.9 gm/dL (13.0-17.5); Lymphocytes # (A) 1.4 k/uL (1.0-4.8); Lymphocytes % (A) 18 %; MCH 28.1 pg (25.0-35.0); MCHC 32.7 g/dL (31.0-37.0); Mean Platelet Volume 6.6; Monocytes # (A) 0.4 k/uL (0-1.0); Monocytes % (A) 5 %; Neutrophils # (A) 5.7 k/uL (1.3-7.7); Neutrophils % (A) 74 %; Platelet Count 348 k/uL (150-450); RBC 4.95 m/uL (4.30-5.90); RDW 13.2 % (11.5-15.5); WBC 7.7 k/uL (3.8-10.6)
[2018-04-19 10:48] LABS: ALT 26 U/L (21-72); AST 16 U/L (17-59); Albumin 3.9 g/dL (3.5-5.0); Alkaline Phosphatase 77 U/L (38-126); Amylase 62 U/L (30-110); Anion Gap 7 mmol/L; Blood Urea Nitrogen 18 mg/dL (9-20); Calcium 9.9 mg/dL (8.4-10.2); Carbon Dioxide 28 mmol/L (22-30); Chloride 103 mmol/L (98-107); Glucose 312 mg/dL (74-99); Lipase 68 U/L (23-300); Potassium 4.6 mmol/L (3.5-5.1); Sodium 138 mmol/L (137-145); Total Bilirubin 0.3 mg/dL (0.2-1.3); Total Protein 6.5 g/dL (6.3-8.2)
[2018-04-19 12:53] VITALS: BP 123/73; PULSE 88
== END 2018-04-19 12:53 | disposition home or self-care (01) ==
LOC: EC 09:16
DX: R19.7 Diarrhea, unspecified (principal); E11.9 Type 2 diabetes mellitus without complications; K21.9 Gastro-esophageal reflux disease without esophagitis; G40.909 Epilepsy, unspecified, not intractable, without status epilepticus; F32.9 Major depressive disorder, single episode, unspecified; Z79.4 Long term (current) use of insulin; Z79.899 Other long term (current) drug therapy
CPT/HCPCS: 36415; 80053; 82150; 82272; 83630; 83690; 85025; 87045; 87046; 87324; 96360; 99284

== ENCOUNTER 2018-04-29 07:27 | Emergency (ER) | payer OTHER ==
[2018-04-29] MEDS ORDERED: ONDANSETRON 4 MG/2 ML VIAL IVP STA (07:40)
[2018-04-29] MEDS ORDERED: DIPHENOX-ATROP 2.5-0.025 MG 1 EACH TAB PO STA (07:40)
[2018-04-29] MEDS ORDERED: SODIUM CHLORIDE 0.9% 1,000 ML IV STA (07:40)
--- NOTE | 2018-04-29 07:45 | ED ---
General Adult HPI - General Chief complaint: Nausea/Vomiting/Diarrhea Stated complaint: vomiting/diarrhea Time Seen by Provider: 04/29/18 07:30 Source: patient, RN notes reviewed Mode of arrival: ambulatory Limitations: no limitations - History of Present Illness Initial comments: This a 57-year-old male who presents emergency Department complaining of diarrhea all night long. Patient states started about 10:00 last night and continued throughout the night. Patient states she's also nauseated but has not vomited. Patient denies any abdominal pain. Patient denies any fever chills. Patient denies any dysuria hematuria urinary frequency. Patient denies any back pain. Patient denies any radiation to the chest per patient denies any chest pain difficulty breathing shortness of breath. Patient denies any lightheadedness or dizziness. Patient states she did not take any medications for his diarrhea. - Related Data Home Medications Medication Instructions Recorded Confirmed Phenytoin Sodium Extended 200 mg PO BID 11/17/16 04/19/18 [Dilantin] Omeprazole 20 mg PO DAILY 06/13/17 04/19/18 Sertraline [Zoloft] 50 mg PO HS 06/13/17 04/19/18 metFORMIN HCL 1,000 mg PO BID 12/18/17 04/19/18 Insulin Lispro [humaLOG Kwikpen] 20 unit SQ DAILY 04/19/18 04/19/18 Pioglitazone HCl [Actos] 15 mg PO DAILY 04/19/18 04/19/18 Allergies Allergy/AdvReac Type Severity Reaction Status Date / Time No Known Allergies Allergy Verified 04/29/18 07:28 Review of Systems ROS Statement: Those systems with pertinent positive or pertinent negative responses have been documented in the HPI. ROS Other: All systems not noted in ROS Statement are negative. 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 Patient is nontoxic and well- hydrated and is in mild distress. ENT: Neck is soft and supple. No significant lymphadenopathy is noted. Oropharynx is clear. Moist mucous membranes. Neck has full range of motion without eliciting any pain. EYES: The sclera were anicteric and conjunctiva were pink and moist. Extraocular movements were intact and pupils were equal round and reactive to light. Eyelids were unremarkable. PULMONARY: Unlabored respirations. Good breath sounds bilaterally. No audible rales rhonchi or wheezing was noted. CARDIOVASCULAR: There is a regular rate and rhythm without any murmurs gallops or rubs. Femoral pulses are equal bilaterally ABDOMEN: Patient has no abdominal tenderness. SKIN: Skin is clear with no lesions or rashes and otherwise unremarkable. NEUROLOGIC: Patient is alert and oriented x3. Cranial nerves II through XII are grossly intact. Motor and sensory are also intact. Normal speech, volume and content. Symmetrical smile. MUSCULOSKELETAL: Normal extremities with adequate strength and full range of motion. No lower extremity swelling or edema. No calf tenderness. LYMPHATICS: No significant lymphadenopathy is noted PSYCHIATRIC: Normal psychiatric evaluation. Limitations: no limitations Course Vital Signs 04/29/18 07:28 Temperature 97.9 F Pulse Rate 106 H Respiratory 18 Rate Blood Pressure 126/78 O2 Sat by Pulse 100 Oximetry Medical Decision Making - Medical Decision Making KUB shows possible enteritis. Patient's had no diarrhea in the emergency department. Patient is no longer nauseated. Patient received Lomotil and Zofran and fluid in the emergency department. - Lab Data Result diagrams: 04/29/18 08:02 04/29/18 08:02 Lab Results 04/29/18 04/29/18 Range/Units 08:02 08:02 WBC 7.2 (3.8-10.6) k/uL RBC 5.12 (4.30-5.90) m/uL Hgb 14.5 (13.0-17.5) gm/dL Hct 45.2 (39.0-53.0) % MCV 88.2 (80.0-100.0) fL MCH 28.2 (25.0-35.0) pg MCHC 32.0 (31.0-37.0) g/dL RDW 13.1 (11.5-15.5) % Plt Count 309 (150-450) k/uL Neutrophils % 66 % Lymphocytes % 25 % Monocytes % 6 % Eosinophils % 1 % Basophils % 1 % Neutrophils # 4.8 (1.3-7.7) k/uL Lymphocytes # 1.8 (1.0-4.8) k/uL Monocytes # 0.4 (0-1.0) k/uL Eosinophils # 0.1 (0-0.7) k/uL Basophils # 0.1 (0-0.2) k/uL Sodium 138 (137-145) mmol/L Potassium 4.9 (3.5-5.1) mmol/L Chloride 104 (98-107) mmol/L Carbon Dioxide 27 (22-30) mmol/L Anion Gap 7 mmol/L BUN 24 H (9-20) mg/dL Creatinine 0.70 (0.66-1.25) mg/dL Est GFR (CKD-EPI)AfAm >90 (>60 ml/min/1.73 sqM) Est GFR (CKD-EPI)NonAf >90 (>60 ml/min/1.73 sqM) Glucose 246 H (74-99) mg/dL Calcium 9.4 (8.4-10.2) mg/dL Total Bilirubin 0.3 (0.2-1.3) mg/dL AST 20 (17-59) U/L ALT 31 (21-72) U/L Alkaline Phosphatase 73 (38-126) U/L Total Protein 7.1 (6.3-8.2) g/dL Albumin 4.3 (3.5-5.0) g/dL Amylase 70 (30-110) U/L Lipase 100 (23-300) U/L Disposition Clinical Impression: Acute diarrhea, Hyperglycemia Disposition: HOME SELF-CARE Condition: Good Instructions (If sedation given, give patient instructions): Acute Diarrhea (ED ) Additional Instructions: Patient should follow-up with his primary medical care doctor soon as possible because of his sugar being elevated. Is patient prescribed a controlled substance at d/c from ED?: No Referrals: Yaw Manzanares MD [Primary Care Provider] - 1-2 days Time of Disposition: 09:17
[2018-04-29 08:22] LABS: Basophils # (A) 0.1 k/uL (0-0.2); Basophils % (A) 1 %; Eosinophils # (A) 0.1 k/uL (0-0.7); Eosinophils % (A) 1 %; HCT 45.2 % (39.0-53.0); HGB 14.5 gm/dL (13.0-17.5); Lymphocytes # (A) 1.8 k/uL (1.0-4.8); Lymphocytes % (A) 25 %; MCH 28.2 pg (25.0-35.0); MCV 88.2 fL (80.0-100.0); Mean Platelet Volume 6.1; Monocytes # (A) 0.4 k/uL (0-1.0); Monocytes % (A) 6 %; Neutrophils # (A) 4.8 k/uL (1.3-7.7); Neutrophils % (A) 66 %; Platelet Count 309 k/uL (150-450); RBC 5.12 m/uL (4.30-5.90); RDW 13.1 % (11.5-15.5); WBC 7.2 k/uL (3.8-10.6)
[2018-04-29 08:25] LABS: ALT 31 U/L (21-72); AST 20 U/L (17-59); Albumin 4.3 g/dL (3.5-5.0); Alkaline Phosphatase 73 U/L (38-126); Amylase 70 U/L (30-110); Anion Gap 7 mmol/L; Blood Urea Nitrogen 24 mg/dL (9-20); Calcium 9.4 mg/dL (8.4-10.2); Carbon Dioxide 27 mmol/L (22-30); Chloride 104 mmol/L (98-107); Glucose 246 mg/dL (74-99); Lipase 100 U/L (23-300); Potassium 4.9 mmol/L (3.5-5.1); Sodium 138 mmol/L (137-145); Total Bilirubin 0.3 mg/dL (0.2-1.3); Total Protein 7.1 g/dL (6.3-8.2)
--- NOTE | 2018-04-29 08:38 | XR ---
EXAMINATION TYPE: XR KUB DATE OF EXAM: 04/29/2018 CLINICAL DATA: 57-year-old male with abdominal pain, [facility] COMPARISON: 12/26/2017 FINDINGS: Lung bases are clear. No evidence for free intraperitoneal air. Air-fluid levels throughout the colon. Mild stool in the pelvis. No dilated small bowel loops or smal l bowel air-fluid level seen. Vascular calcifications in the pelvis. IMPRESSION: 1. Overall nonobstructive bowel gas pattern. No free air. 2. Air-fluid levels throughout the colon suggesting colonic ileus or liquid stool related to enteriti s or colitis.
[2018-04-29] MEDS ORDERED: DIPHENOX-ATROP STARTER PACK 8 TAB BTL PO ONE (09:18)
[2018-04-29 09:38] VITALS: BP 129/77; PULSE 92; RESP 19; TEMP 98.6
== END 2018-04-29 09:38 | disposition home or self-care (01) ==
LOC: EC 07:27
DX: E11.65 Type 2 diabetes mellitus with hyperglycemia (principal); R19.7 Diarrhea, unspecified; K21.9 Gastro-esophageal reflux disease without esophagitis; M19.90 Unspecified osteoarthritis, unspecified site; G40.909 Epilepsy, unspecified, not intractable, without status epilepticus; F32.9 Major depressive disorder, single episode, unspecified; Z85.9 Personal history of malignant neoplasm, unspecified; Z79.4 Long term (current) use of insulin; Z79.899 Other long term (current) drug therapy; Z98.890 Other specified postprocedural states
CPT/HCPCS: 36415; 80053; 82150; 83690; 85025; 74018; 99284; 96374; 96361; J2405

== ENCOUNTER → 2018-05-03 | Outpatient (CLI) | payer OTHER ==
[2018-05-03 11:00] LABS: HCT 45.6 % (39.0-53.0); HGB 14.1 gm/dL (13.0-17.5); MCH 27.8 pg (25.0-35.0); MCHC 30.9 g/dL (31.0-37.0); MCV 89.9 fL (80.0-100.0); Mean Platelet Volume 6.2; Platelet Count 304 k/uL (150-450); RBC 5.07 m/uL (4.30-5.90); RDW 13.3 % (11.5-15.5); WBC 5.5 k/uL (3.8-10.6)
[2018-05-03 18:47] LABS: Albumin/Globulin Ratio 2.11 (1.60-3.17); Anion Gap 9.8 mmol/L (4.00-12.00); Calcium 9.3 mg/dL (8.7-10.3); Carbon Dioxide 28.2 mmol/L (21.6-31.8); Globulin 1.9 g/dL (1.6-3.3); Potassium 5.2 mmol/L (3.5-5.5); Total Bilirubin 0.2 mg/dL (0.2-1.2); Total Protein 5.9 g/dL (6.2-8.2)
[2018-05-03 20:39] LABS: Phenytoin (Dilantin) 9.4 ug/mL (10.0-20.0)
== END | disposition home or self-care (01) ==
LOC: LABWHC1 09:53
PROVIDERS: ATTEND Nurse Practitioner Acute Care
DX: R42 Dizziness and giddiness (principal); R56.9 Unspecified convulsions
CPT/HCPCS: 36415; 80053; 80185; 82306; 85027

== ENCOUNTER → 2018-06-02 | Outpatient (CLI) | payer OTHER ==
[2018-06-02 17:54] LABS: Hemoglobin A1C 12.4 % (4.0-6.0)
[2018-06-02 18:26] LABS: LDL Cholesterol,Calculated 120.8 mg/dL (0.0-131.0); VLDL Calculation 41.2 mg/dL (5.00-40.00)
== END | disposition home or self-care (01) ==
LOC: LABWHC1 08:30
PROVIDERS: ATTEND Internal Medicine
DX: E10.65 Type 1 diabetes mellitus with hyperglycemia (principal)
CPT/HCPCS: 36415; 80061; 82043; 82570; 82947; 83036; 84681

== ENCOUNTER → 2018-06-21 | Outpatient (CLI) | payer OTHER | END | disposition home or self-care (01) | LOC: LABWHC1 09:10 | PROVIDERS: ATTEND Internal Medicine | DX: E10.65 Type 1 diabetes mellitus with hyperglycemia (principal) | CPT/HCPCS: 36415; 82947; 84681 ==

== ENCOUNTER → 2018-07-14 | Outpatient (CLI) | payer OTHER ==
[2018-07-14 10:41] LABS: Basophils # (A) 0.1 k/uL (0-0.2); Basophils % (A) 1 %; Eosinophils # (A) 0.1 k/uL (0-0.7); Eosinophils % (A) 1 %; HCT 47.2 % (39.0-53.0); HGB 14.9 gm/dL (13.0-17.5); Lymphocytes # (A) 1.3 k/uL (1.0-4.8); Lymphocytes % (A) 22 %; MCH 27.4 pg (25.0-35.0); MCHC 31.6 g/dL (31.0-37.0); MCV 86.8 fL (80.0-100.0); Mean Platelet Volume 6.8; Monocytes # (A) 0.3 k/uL (0-1.0); Monocytes % (A) 5 %; Neutrophils # (A) 3.9 k/uL (1.3-7.7); Neutrophils % (A) 68 %; Platelet Count 403 k/uL (150-450); RBC 5.44 m/uL (4.30-5.90); RDW 13.6 % (11.5-15.5); WBC 5.7 k/uL (3.8-10.6)
[2018-07-14 19:39] LABS: ALT 15 U/L (10-49); AST 22 U/L (14-35); Albumin/Globulin Ratio 2.05 (1.60-3.17); Alkaline Phosphatase 114 U/L (41-126); Calcium 9.7 mg/dL (8.7-10.3); Carbon Dioxide 30.3 mmol/L (21.6-31.8); Chloride 97 mmol/L (96-109); Globulin 2.2 g/dL (1.6-3.3); Glucose 360 mg/dL (70-110); Potassium 5.2 mmol/L (3.5-5.5); Sodium 134 mmol/L (135-145); Total Bilirubin 0.4 mg/dL (0.3-1.2); Total Protein 6.7 g/dL (6.2-8.2)
[2018-07-14 19:54] LABS: Vitamin D 25 Hydroxy 13.8 ng/mL (30.0-100.0)
[2018-07-15 16:43] LABS: Phenytoin (Dilantin) <0.5 ug/mL (10.0-20.0)
== END | disposition home or self-care (01) ==
LOC: LABWHC1 09:51
PROVIDERS: ATTEND Nurse Practitioner Acute Care
DX: E55.9 Vitamin D deficiency, unspecified (principal); G40.909 Epilepsy, unspecified, not intractable, without status epilepticus; Z51.81 Encounter for therapeutic drug level monitoring
CPT/HCPCS: 36415; 80053; 80185; 82306; 82607; 85025

== ENCOUNTER 2018-10-03 04:19 | Emergency (ER) | payer OTHER ==
--- NOTE | 2018-10-03 04:49 | ED ---
Psych HPI - General Source: RN notes reviewed, old records reviewed - History of Present Illness Complaint: altered mental status -: days(s) Associated Psychiatric Symptoms: racing thoughts History of same: Yes Quality: constant Improves With: none Worsens With: none Associated Symptoms: denies other symptoms Treatments Prior to Arrival: placed on mental health hold <Heber Venegas - Last Filed: 10/03/18 06:06> <Yuval Wilkinson - Last Filed: 10/03/18 14:55> - General Stated Complaint: Anxiety Time Seen by Provider: 10/03/18 04:20 - History of Present Illness Initial Comments: This is a 50-year-old male the ER for evaluation. Patient states that they've evaluation of mental illness. Patient states he's been unable to sleep for 3 days. Does not feel well. Feeling his heart is racing feels weak lightheaded and dizzy. Denies any recent change in medications takes Dilantin and insulin. Patient denies significant drug or alcohol abuse (Heber Venegas) - Related Data Home Medications Medication Instructions Recorded Confirmed Phenytoin Sodium Extended 200 mg PO BID 11/17/16 10/03/18 [Dilantin] Omeprazole 20 mg PO DAILY 06/13/17 10/03/18 Sertraline [Zoloft] 50 mg PO HS 06/13/17 10/03/18 metFORMIN HCL 1,000 mg PO BID 12/18/17 10/03/18 Insulin Glargine,Hum.rec.anlog 25 unit SQ DAILY 10/03/18 10/03/18 [Basaglar Kwikpen U-100] Pioglitazone HCl [Actos] 15 mg PO DAILY 10/03/18 10/03/18 Allergies Allergy/AdvReac Type Severity Reaction Status Date / Time No Known Allergies Allergy Verified 10/03/18 10:06 Review of Systems ROS Other: All systems not noted in ROS Statement are negative. <Heber Venegas - Last Filed: 10/03/18 06:06> ROS Other: All systems not noted in ROS Statement are negative. <Yuval Wilkinson - Last Filed: 10/03/18 14:55> ROS Statement: Those systems with pertinent positive or pertinent negative responses have been documented in the HPI. 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 Past Anesthesia/Blood Transfusion Reactions: No Reported Reaction Past Psychological History: Depression Smoking Status: Never smoker Past Alcohol Use History: None Reported Past Drug Use History: None Reported - Past Family History Father Family Medical History: Diabetes Mellitus, Myocardial Infarction ([place]) Additional Family Medical History / Comment(s): AT AGE 57 Mother Family Medical History: Cancer <Heber Venegas Last Filed: 10/03/18 06:06> General Exam General appearance: alert, anxious Head exam: Present: atraumatic, normocephalic, normal inspection Eye exam: Present: normal appearance, PERRL, EOMI. Absent: scleral icterus, conjunctival injection, periorbital swelling ENT exam: Present: normal exam, mucous membranes dry Neck exam: Present: normal inspection. Absent: tenderness, meningismus, lymphadenopathy Respiratory exam: Present: normal lung sounds bilaterally. Absent: respiratory distress, wheezes, rales, rhonchi, stridor Cardiovascular Exam: Present: normal rhythm, tachycardia, normal heart sounds. Absent: systolic murmur, diastolic murmur, rubs, gallop, clicks GI/Abdominal exam: Present: soft, normal bowel sounds. Absent: distended, tenderness, guarding, rebound, rigid Extremities exam: Present: normal inspection, full ROM, normal capillary refill. Absent: tenderness, pedal edema, joint swelling, calf tenderness Back exam: Present: normal inspection Neurological exam: Present: alert, oriented X3, CN II-XII intact Psychiatric exam: Present: normal affect, normal mood Skin exam: Present: warm, dry, intact, normal color. Absent: rash <Heber Venegas Last Filed: 10/03/18 06:06> Course Vital Signs 10/03/18 10/03/18 10/03/18 04:59 06:28 07:00 Temperature 98.1 F Pulse Rate 120 H 113 H 122 H Respiratory 16 18 18 Rate Blood Pressure 147/80 147/98 125/83 O2 Sat by Pulse 94 L 93 L 94 L Oximetry 10/03/18 10/03/18 10/03/18 08:00 09:00 10:00 Temperature 98.3 F Pulse Rate 98 Respiratory 12 Rate Blood Pressure 126/75 O2 Sat by Pulse 100 98 98 Oximetry 10/03/18 10/03/18 11:00 12:00 Temperature Pulse Rate Respiratory Rate Blood Pressure O2 Sat by Pulse 98 98 Oximetry Medical Decision Making - Lab Data Result diagrams: 10/03/18 06:07 10/03/18 06:07 <Yuval Wilkinson - Last Filed: 10/03/18 14:55> - Medical Decision Making Patient was seen by mental health services who recommends discharge and did set patient up for [facility] follow-up. Patient reevaluated and resting comfortably in bed. Patient symptom-free at this time and does admit to feeling anxious earlier. Patient denies depression or suicidal ideation and is agreeable to follow-up. Patient also is agreeable to follow-up with his primary care physician. (Yuval Wilkinson) - Lab Data Lab Results 10/03/18 10/03/18 10/03/18 Range/Units 06:07 06:07 06:07 WBC 10.2 (3.8-10.6) k/uL RBC 5.48 (4.30-5.90) m/uL Hgb 15.4 (13.0-17.5) gm/dL Hct 46.0 (39.0-53.0) % MCV 84.0 (80.0-100.0) fL MCH 28.0 (25.0-35.0) pg MCHC 33.4 (31.0-37.0) g/dL RDW 15.4 (11.5-15.5) % Plt Count 493 H (150-450) k/uL Neutrophils % 80 % Lymphocytes % 12 % Monocytes % 6 % Eosinophils % 0 % Basophils % 1 % Neutrophils # 8.2 H (1.3-7.7) k/uL Lymphocytes # 1.2 (1.0-4.8) k/uL Monocytes # 0.6 (0-1.0) k/uL Eosinophils # 0.0 (0-0.7) k/uL Basophils # 0.1 (0-0.2) k/uL Sodium 137 (137-145) mmol/L Potassium 4.1 (3.5-5.1) mmol/L Chloride 96 L (98-107) mmol/L Carbon Dioxide 28 (22-30) mmol/L Anion Gap 13 mmol/L BUN 17 (9-20) mg/dL Creatinine 0.67 (0.66-1.25) mg/dL Est GFR (CKD-EPI)AfAm >90 (>60 ml/min/1.73 sqM) Est GFR (CKD-EPI)NonAf >90 (>60 ml/min/1.73 sqM) Glucose 239 H (74-99) mg/dL POC Glucose (mg/dL) (75-99) mg/dL POC Glu Groover And Striper Operator ID Calcium 9.8 (8.4-10.2) mg/dL Phosphorus 4.1 (2.5-4.5) mg/dL Magnesium 1.9 (1.6-2.3) mg/dL Total Bilirubin 0.4 (0.2-1.3) mg/dL AST 22 (17-59) U/L ALT 19 L (21-72) U/L Alkaline Phosphatase 112 (38-126) U/L Creatine Kinase 71 (55-170) U/L Troponin I <0.012 (0.000-0.034) ng/mL Total Protein 7.5 (6.3-8.2) g/dL Albumin 4.4 (3.5-5.0) g/dL TSH 1.280 (0.465-4.680) mIU/L Urine Color Urine Appearance (Clear) Urine pH (5.0-8.0) Ur Specific [place] (1.001-1.035) Urine Protein (Negative) Urine Glucose (UA) (Negative) Urine Ketones (Negative) Urine Blood (Negative) Urine Nitrite (Negative) Urine Bilirubin (Negative) Urine Urobilinogen (<2.0) mg/dL Ur Leukocyte Esterase (Negative) Salicylates <1.0 mg/dL Urine Opiates Screen (NotDetected) Ur Oxycodone Screen (NotDetected) Urine Methadone Screen (NotDetected) Ur Propoxyphene Screen (NotDetected) Acetaminophen <10.0 ug/mL Ur Barbiturates Screen (NotDetected) Phenytoin <3.0 ug/mL U Tricyclic Antidepress (NotDetected) Ur Phencyclidine Scrn (NotDetected) Ur Amphetamines Screen (NotDetected) U Methamphetamines Scrn (NotDetected) U Benzodiazepines Scrn (NotDetected) Urine Cocaine Screen (NotDetected) U Marijuana (THC) Screen (NotDetected) Acetone, Qual Positive (Negative) 10/03/18 10/03/18 Range/Units 06:07 06:39 WBC (3.8-10.6) k/uL RBC (4.30-5.90) m/uL Hgb (13.0-17.5) gm/dL Hct (39.0-53.0) % MCV (80.0-100.0) fL MCH (25.0-35.0) pg MCHC (31.0-37.0) g/dL RDW (11.5-15.5) % Plt Count (150-450) k/uL Neutrophils % % Lymphocytes % % Monocytes % % Eosinophils % % Basophils % % Neutrophils # (1.3-7.7) k/uL Lymphocytes # (1.0-4.8) k/uL Monocytes # (0-1.0) k/uL Eosinophils # (0-0.7) k/uL Basophils # (0-0.2) k/uL Sodium (137-145) mmol/L Potassium (3.5-5.1) mmol/L Chloride (98-107) mmol/L Carbon Dioxide (22-30) mmol/L Anion Gap mmol/L BUN (9-20) mg/dL Creatinine (0.66-1.25) mg/dL Est GFR (CKD-EPI)AfAm (>60 ml/min/1.73 sqM) Est GFR (CKD-EPI)NonAf (>60 ml/min/1.73 sqM) Glucose (74-99) mg/dL POC Glucose (mg/dL) 204 H (75-99) mg/dL POC Glu Groover And Striper Operator ID Hanane, Shantelle Calcium (8.4-10.2) mg/dL Phosphorus (2.5-4.5) mg/dL Magnesium (1.6-2.3) mg/dL Total Bilirubin (0.2-1.3) mg/dL AST (17-59) U/L ALT (21-72) U/L Alkaline Phosphatase (38-126) U/L Creatine Kinase (55-170) U/L Troponin I (0.000-0.034) ng/mL Total Protein (6.3-8.2) g/dL Albumin (3.5-5.0) g/dL TSH (0.465-4.680) mIU/L Urine Color Yellow Urine Appearance Clear (Clear) Urine pH 6.5 (5.0-8.0) Ur Specific [place] 1.025 (1.001-1.035) Urine Protein Trace H (Negative) Urine Glucose (UA) 4+ H (Negative) Urine Ketones 1+ H (Negative) Urine Blood Negative (Negative) Urine Nitrite Negative (Negative) Urine Bilirubin Negative (Negative) Urine Urobilinogen <2.0 (<2.0) mg/dL Ur Leukocyte Esterase Negative (Negative) Salicylates mg/dL Urine Opiates Screen Not Detected (NotDetected) Ur Oxycodone Screen Not Detected (NotDetected) Urine Methadone Screen Not Detected (NotDetected) Ur Propoxyphene Screen Not Detected (NotDetected) Acetaminophen ug/mL Ur Barbiturates Screen Detected H (NotDetected) Phenytoin ug/mL U Tricyclic Antidepress Not Detected (NotDetected) Ur Phencyclidine Scrn Not Detected (NotDetected) Ur Amphetamines Screen Not Detected (NotDetected) U Methamphetamines Scrn Not Detected (NotDetected) U Benzodiazepines Scrn Not Detected (NotDetected) Urine Cocaine Screen Not Detected (NotDetected) U Marijuana (THC) Screen Not Detected (NotDetected) Acetone, Qual (Negative) Disposition <Heber Venegas - Last Filed: 10/03/18 06:06> Is patient prescribed a controlled substance at d/c from ED?: No Time of Disposition: 14:55 <Yuval Wilkinson - Last Filed: 10/03/18 14:55> Clinical Impression: Acute anxiety, Dehydration Disposition: HOME SELF-CARE Condition: Stable Instructions (If sedation given, give patient instructions): Generalized Anxiety Disorder (ED) Additional Instructions: Please follow-up with primary care physician in the next day or 2 for recheck. Please also follow-up with [facility] as directed. Return for thoughts of self-harm, not been able to take care of herself, worsening symptoms or other concerns. Referrals: Yaw Manzanares MD [Primary Care Provider] - 1-2 days
[2018-10-03] MEDS ORDERED: SODIUM CHLORIDE 0.9% 1,000 ML IV STA ×3 (05:47→06:48)
[2018-10-03] MEDS ORDERED: ONDANSETRON 4 MG/2 ML VIAL IVP STA (05:47)
[2018-10-03] MEDS ORDERED: SODIUM CHLORIDE 0.9% 500 ML 500 ML IV STA (05:47)
[2018-10-03] MEDS ORDERED: LORazepam 2 MG/ML INJ IV STA (05:47)
[2018-10-03 06:24] LABS: Appearance,Urine Clear (Clear); Bilirubin,Urine Negative (Negative); Blood,Urine Negative (Negative); Color,Urine Yellow; Glucose,Urine (UA) 4+ (Negative); Ketones,Urine 1+ (Negative); Leukocyte Esterase,Urine Negative (Negative); Nitrite,Urine Negative (Negative); PH, Urine 6.5 (5.0-8.0); Protein,Urine Trace (Negative); Specific Gravity,Urine 1.025 (1.001-1.035); Urobilinogen,Urine <2.0 mg/dL (<2.0)
[2018-10-03 06:33] LABS: ALT 19 U/L (21-72); AST 22 U/L (17-59); Acetaminophen <10.0 ug/mL; African American GFR (CKD) >90 (>60 ml/min/1.73 sqM); Albumin 4.4 g/dL (3.5-5.0); Alkaline Phosphatase 112 U/L (38-126); Anion Gap 13 mmol/L; Blood Urea Nitrogen 17 mg/dL (9-20); Calcium 9.8 mg/dL (8.4-10.2); Carbon Dioxide 28 mmol/L (22-30); Chloride 96 mmol/L (98-107); Creatine Kinase 71 U/L (55-170); Glucose 239 mg/dL (74-99); Magnesium 1.9 mg/dL (1.6-2.3); Phenytoin (Dilantin) <3.0 ug/mL; Phosphorus 4.1 mg/dL (2.5-4.5); Potassium 4.1 mmol/L (3.5-5.1); Salicylate <1.0 mg/dL; Sodium 137 mmol/L (137-145); Total Bilirubin 0.4 mg/dL (0.2-1.3); Total Protein 7.5 g/dL (6.3-8.2)
[2018-10-03 06:39] LABS: Amphetamine Screen,Urine Not Detected (NotDetected); Barbiturate Screen,Urine Detected (NotDetected); Benzodiazepines Screen,Urine Not Detected (NotDetected); Cocaine Screen,Urine Not Detected (NotDetected); Methadone Screen, Urine Not Detected (NotDetected); Opiate Screen,Urine Not Detected (NotDetected); Oxycodone Screen, Urine Not Detected (NotDetected); Phencyclidine Screen,Urine Not Detected (NotDetected); Tricyclic Antidepressant,Urine Not Detected (NotDetected); Urn Cannabinoid Scrn Not Detected (NotDetected)
[2018-10-03 06:42] LABS: Glucose,Whole Blood 204 mg/dL (75-99)
[2018-10-03 06:49] LABS: Basophils # (A) 0.1 k/uL (0-0.2); Basophils % (A) 1 %; Eosinophils % (A) 0 %; HGB 15.4 gm/dL (13.0-17.5); Lymphocytes # (A) 1.2 k/uL (1.0-4.8); Lymphocytes % (A) 12 %; MCHC 33.4 g/dL (31.0-37.0); Mean Platelet Volume 6.7; Monocytes # (A) 0.6 k/uL (0-1.0); Monocytes % (A) 6 %; Neutrophils # (A) 8.2 k/uL (1.3-7.7); Neutrophils % (A) 80 %; Platelet Count 493 k/uL (150-450); RBC 5.48 m/uL (4.30-5.90); RDW 15.4 % (11.5-15.5); WBC 10.2 k/uL (3.8-10.6)
[2018-10-03 08:49] VITALS: RESP 12
[2018-10-03 15:04] VITALS: TEMP 98.2
[2018-10-03 15:05] VITALS: BP 157/75; PULSE 87
== END 2018-10-03 15:07 | disposition home or self-care (01) ==
LOC: EC 04:19
DX: F41.9 Anxiety disorder, unspecified (principal); E86.0 Dehydration; R53.1 Weakness; R42 Dizziness and giddiness; R41.82 Altered mental status, unspecified; E11.9 Type 2 diabetes mellitus without complications; K21.9 Gastro-esophageal reflux disease without esophagitis; G40.909 Epilepsy, unspecified, not intractable, without status epilepticus; F32.9 Major depressive disorder, single episode, unspecified; Z85.828 Personal history of other malignant neoplasm of skin; Z79.4 Long term (current) use of insulin; Z79.899 Other long term (current) drug therapy
CPT/HCPCS: 36415; 80053; 82550; 80185; 82009; 83735; 84100; 84443; 84484; 85025; 81003; 80306; 83520; 99284; 96374; 96375; 96360; 96361 ×9; G0480; J2060; J2405; 80329

== ENCOUNTER → 2019-01-19 | Outpatient (CLI) | payer OTHER | END | disposition home or self-care (01) | LOC: LABWHC1 15:51 | PROVIDERS: ATTEND Psychiatry & Neurology Pain Medicine | DX: G40.909 Epilepsy, unspecified, not intractable, without status epilepticus (principal); Z51.81 Encounter for therapeutic drug level monitoring | CPT/HCPCS: 36415; 80185 ==

== ENCOUNTER → 2019-03-11 | Outpatient (CLI) | payer OTHER ==
[2019-03-11 17:15] LABS: Chol/HDL Ratio 2.67
[2019-03-11 17:48] LABS: Microalbumin Creatinine Ratio <30 mg/g Creat (0-30); Urine Creatinine 45.4 mg/dL
[2019-03-11 20:03] LABS: Hemoglobin A1C 14.9 % (4.0-6.0)
== END ==
LOC: LABWHC1 08:37
PROVIDERS: ATTEND Internal Medicine
DX: E10.65 Type 1 diabetes mellitus with hyperglycemia (principal)
CPT/HCPCS: 36415; 80061; 82043; 82570; 83036

== ENCOUNTER 2019-11-18 08:11 | Day surgery (SDC) | payer OTHER ==
[~2019-11-18 08:11] MED LIST changes: +LIDOCAINE 1% (10MG/ML) FOR IV START INTRADERMA PRN
[2019-11-18 10:15] LABS: Glucose,Whole Blood 232 mg/dL (75-99)
[2019-11-18 10:17] VITALS: TEMP 97.4
[2019-11-18] MEDS ORDERED: INSULIN ASPART (NovoLOG) 100 UNIT/ML VIAL SQ ONE (10:34)
[2019-11-18] MEDS ORDERED: PROPOFOL 10 MG/ML 20 ML VIAL IV ONE (11:36)
[2019-11-18 11:46] LABS: Glucose,Whole Blood 179 mg/dL (75-99)
--- NOTE | 2019-11-18 12:06 | P.PCN ---
Date of Procedure: 11/18/19 Procedure(s) Performed: BRIEF HISTORY: Patient is a 59-year-old pleasant white male scheduled for an elective colonoscopy as a part of evaluation of change in bowel habits. PROCEDURE PERFORMED: Attempted Colonoscopy. PREOPERATIVE DIAGNOSIS: Change in bowel habits. IV sedation per Anesthesia. PROCEDURE: After informed consent was obtained, the patient, was brought into the endoscopy unit. IV sedation was administered by Anesthesia under continuous monitoring. Digital rectal examination was normal. Initially the Olympus CF-160 flexible video colonoscope was then inserted in the rectum, gradually advanced into the sigmoid colon. There was solid stool encountered in the sigmoid colon and the scope could not be advanced any further. At this time the procedure was terminated. Patient tolerated the procedure well. IMPRESSION: Poor prep in the rectum and sigmoid colon and hence procedure aborted. RECOMMENDATIONS: Findings of this examination were discussed with the patient. He will be scheduled for colonoscopy as a later date with a 2 day prep..
[2019-11-18 12:36] VITALS: RESP 16
[2019-11-18 12:36] LABS: Glucose,Whole Blood 149 mg/dL (75-99)
[2019-11-18 13:15] VITALS: BP 137/80; PULSE 96
== END 2019-11-18 13:33 | disposition home or self-care (01) ==
LOC: ORWHC2ENDO 08:11
PROVIDERS: ATTEND Internal Medicine Gastroenterology
DX: R19.4 Change in bowel habit (principal); I10 Essential (primary) hypertension; E78.5 Hyperlipidemia, unspecified; E11.9 Type 2 diabetes mellitus without complications; M19.90 Unspecified osteoarthritis, unspecified site; F32.9 Major depressive disorder, single episode, unspecified; K21.9 Gastro-esophageal reflux disease without esophagitis; Z79.4 Long term (current) use of insulin; Z79.899 Other long term (current) drug therapy; Z86.69 Personal history of other diseases of the nervous system and sense organs; Z85.9 Personal history of malignant neoplasm, unspecified
CPT/HCPCS: 45330; J2704

== ENCOUNTER → 2020-01-12 | Outpatient (CLI) | payer OTHER ==
--- NOTE | 2020-01-12 15:42 | US ---
EXAMINATION TYPE: US venous doppler duplex LE DATE OF EXAM: 01/12/2020 2:29 PM COMPARISON: LOWER EXTREMITY VENOUS INSUFFICIENCY CLINICAL HISTORY: E11.621 TYPE 2 DIABETES MELLITUS W/FOOT ULCER. Ulcer right foot and left ankle SIDE PERFORMED: Bilateral 1) Color flow is present and patency is documented in the following vessels. No DVT or SVT is noted . EIV Common Femoral Vein Deep Femoral Vein Femoral Vein Popliteal Vein Proximal Calf Veins Greater Saph Vein Upper Small Saph Vein 2) There is venous reflux noted at the following venous levels: None 3) Incompetent perforators are noted at these levels: None IMPRESSION: Venous insufficiency is not evident.
--- NOTE | 2020-01-19 11:39 | P.ARTDOP ---
Arterial Doppler LOWER EXTREMITY ARTERIAL DOPPLER: DATE OF SERVICE: 01/12/2020 Reason for study: Ulcers right foot and ankle. Doppler waveforms: Multiphasic bilaterally throughout. Pulse volume recording: []. Pressure gradients: None. Ankle-brachial indices: Cannot be occluded. Toe brachial indices: 0.61 on the right, 0.68 on the left Impression: Normal flow patterns. Elevated ankle pressures probably related calcific wall disease, which is of no hemodynamic significance..
== END | disposition home or self-care (01) ==
LOC: RADUSWWP 13:25
PROVIDERS: ATTEND Family Medicine
DX: I87.2 Venous insufficiency (chronic) (peripheral) (principal); E11.621 Type 2 diabetes mellitus with foot ulcer; L97.812 Non-pressure chronic ulcer of other part of right lower leg with fat layer exposed; L97.111 Non-pressure chronic ulcer of right thigh limited to breakdown of skin; L97.822 Non-pressure chronic ulcer of other part of left lower leg with fat layer exposed; L97.312 Non-pressure chronic ulcer of right ankle with fat layer exposed; L97.823 Non-pressure chronic ulcer of other part of left lower leg with necrosis of muscle; G40.89 Other seizures; Z79.4 Long term (current) use of insulin
CPT/HCPCS: 93922; 93923; 93970

== ENCOUNTER 2020-01-19 11:44 | Inpatient (IN) | payer OTHER ==
[2020-01-19] MEDS ORDERED: SODIUM CHLORIDE 0.9% 500 ML 500 ML IV ONE (12:44)
[2020-01-19] MEDS ORDERED: SODIUM CHLORIDE 0.9% 1,000 ML IV ONE (12:44)
[2020-01-19] MEDS ORDERED: VANCOMYCIN IV PER PHARMACY 1 EACH MISC MISCELLANE PRN (12:47)
[2020-01-19] MEDS ORDERED: VANCOMYCIN 1,000 MG in SODIUM CHLORIDE 0.9% 250 ML IVPB ONE (13:30)
--- NOTE | 2020-01-19 13:38 | ED ---
Wound/Laceration HPI - General Chief Complaint: Wound/Laceration Stated Complaint: Tachycardia, infection Time Seen by Provider: 01/19/20 12:22 Source: patient Mode of arrival: wheelchair Limitations: no limitations - History of Present Illness Initial Comments: 59-year-old male presenting today for chief complaint of sent from wound care for possibly infected wound. Patient states he is a type I diabetic he states he believes his A1c is to then between 6 and 7 he states is much more than usual. Patient states she has struggled with a chronic wound on his left inner leg. Patient denies a known history of peripheral artery disease. Patient states he has neuropathy of the feet bilaterally did not feel much pain when to the wound care center today and was told he needed to come to [facility] for for evaluation of possible infected wound. Patient denies fevers chills or general malaise. Patient has a chest pain shortness of breath up respiratory symptoms or urinary symptoms. Upon arrival patient is afebrile his heart rate is elevated he does not appear toxic. - Related Data Home Medications Medication Instructions Recorded Confirmed Phenytoin Sodium Extended 200 mg PO BID 11/17/16 01/19/20 [Dilantin] Omeprazole 20 mg PO DAILY 06/13/17 01/19/20 Pioglitazone HCl [Actos] 15 mg PO DAILY 10/03/18 01/19/20 Diphenox-Atrop 2.5-0.025 mg 1 tab PO BID 11/17/19 01/19/20 [Lomotil] Pregabalin [Lyrica] 75 mg PO BID 11/17/19 01/19/20 Rosuvastatin [Crestor] 10 mg PO HS 11/17/19 01/19/20 Collagenase [Santyl] 1 applic TOPICAL DAILY 01/19/20 01/19/20 Gentamicin 0.1% Cream 1 applic TOPICAL BID 01/19/20 01/19/20 HYDROcodone/APAP 5-325MG [[place] 1 tab PO BID PRN 01/19/20 01/19/20 5-325] Insulin Glargine [Lantus] 35 unit SQ DAILY 01/19/20 01/19/20 Insulin Glulisine [Apidra] See Protocol SQ AC-TID 01/19/20 01/19/20 Meclizine [Antivert] 25 mg PO QID 01/19/20 01/19/20 Mupirocin 2% Oint [Bactroban 2% 1 applic TOPICAL DAILY 01/19/20 01/19/20 Oint] Triamcinolone 0.5% Cream [Kenalog 1 applic TOPICAL DAILY 01/19/20 01/19/20 0.5% Cream] Allergies Allergy/AdvReac Type Severity Reaction Status Date / Time No Known Allergies Allergy Verified 01/19/20 13:26 Review of Systems ROS Statement: Those systems with pertinent positive or pertinent negative responses have been documented in the HPI. ROS Other: All systems not noted in ROS Statement are negative. Past Medical History Past Medical History: Cancer, Diabetes Mellitus, GERD/Reflux, Hyperlipidemia, Osteoarthritis (OA), Seizure Disorder Additional Past Medical History / Comment(s): Last seizure 6 months ago. 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 Diarrhea occ. 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 Past Anesthesia/Blood Transfusion Reactions: No Reported Reaction Past Psychological History: Depression Smoking Status: Never smoker Past Alcohol Use History: None Reported Past Drug Use History: None Reported - Past Family History Father Additional Family Medical History / Comment(s): AT AGE 57 Mother Family Medical History: Cancer General Exam - General Exam Comments Initial Comments: General: The patient is awake and alert, in no distress Eye: Pupils are equal, round and reactive to light, extra-ocular movements are intact. No nystagmus. There is normal conjunctiva bilaterally. No signs of icterus. Ears, nose, mouth and throat: There are moist mucous membranes and no oral lesions. Neck: The neck is supple, there is no tenderness or JVD. Cardiovascular: There is a regular rate and rhythm. No murmur, rub or gallop is appreciated. Respiratory: Lungs are clear to auscultation, respirations are non-labored, breath sounds are equal. No wheezes, stridor, rales, or rhonchi. Musculoskeletal: Normal ROM, no tenderness. Strength 5/5. Sensation intact. DP pulses equal bilaterally 2+. Neurological: A&O x 3. CN II-XII intact, There are no obvious motor or sensory deficits. Coordination appears grossly intact. Speech is normal. Skin: Skin is warm and dry and no rashes. Large wound left lower leg fibula exposed, odorous, redness of surrounding tissues extending proximal on leg and to foot (wound [id number] deep) Psychiatric: Cooperative, appropriate mood & affect, normal judgment. Limitations: no limitations Course Vital Signs 01/19/20 01/19/20 11:47 12:35 Temperature 97.1 F L 97.6 F Pulse Rate 106 H 102 H Respiratory 18 14 Rate Blood Pressure 142/70 145/77 O2 Sat by Pulse 100 100 Oximetry Medical Decision Making - Medical Decision Making Signed patient out pending XR results and laboratory to Dr. Toney. Patient wound concerning for gangrene. Patient initiated on antibiotics. Patient has IV fluids running. He will be admitted for iv abx and ID consultation. Dr. toney to talk to admitting providers. Disposition Clinical Impression: Infected wound Disposition: ADMITTED IP TO THIS HOSP Condition: Stable Is patient prescribed a controlled substance at d/c from ED?: No Referrals: Helen Chen MD [Primary Care Provider] - 1-2 days Time of Disposition: 13:58 Decision to Admit Reason: Admit from EC Decision Date: 01/19/20 Decision Time: 13:58
[2020-01-19] MEDS: SODIUM CHLORIDE 0.9% 1,000 ML IV SCH (13:51)
[2020-01-19] MEDS ORDERED: NALOXONE 0.4 MG/ML 1 ML VIAL IV PRN (13:53)
--- NOTE | 2020-01-19 13:53 | XR ---
EXAMINATION TYPE: XR tibia fibula LT DATE OF EXAM: 01/19/2020 COMPARISON: NONE HISTORY: Swelling with infection TECHNIQUE: Two views are submitted. FINDINGS: The osseous structures are intact. The joint spaces are preserved. Soft tissue edema seen. No erosi ve changes. Corticated density adjacent the medial malleolus and lateral malleolus appears be related to chronic injuries. Soft tissue emphysema posteriorly along the distal lower extremity. IMPRESSION: 1. Soft tissue irregularity and edema could be on the basis of an infectious etiology or cellulitis. No osseous abnormality to suggest osteomyelitis..
[2020-01-19 14:03] LABS: Appearance,Urine Clear (Clear); Bilirubin,Urine Negative (Negative); Blood,Urine Negative (Negative); Color,Urine Light Yellow; Glucose,Urine (UA) 4+ (Negative); Ketones,Urine Negative (Negative); Leukocyte Esterase,Urine Negative (Negative); Nitrite,Urine Negative (Negative); Protein,Urine Negative (Negative); Specific Gravity,Urine 1.014 (1.001-1.035); Urobilinogen,Urine <2.0 mg/dL (<2.0)
[2020-01-19 14:04] LABS: Basophils # (A) 0.2 k/uL (0-0.2); Basophils % (A) 1 %; Eosinophils # (A) 0.1 k/uL (0-0.7); Eosinophils % (A) 0 %; HCT 35.9 % (39.0-53.0); HGB 11.4 gm/dL (13.0-17.5); Lymphocytes # (A) 0.9 k/uL (1.0-4.8); Lymphocytes % (A) 5 %; MCH 24.1 pg (25.0-35.0); MCHC 31.9 g/dL (31.0-37.0); MCV 75.7 fL (80.0-100.0); Mean Platelet Volume 6.7; Microcytosis Slight; Monocytes # (A) 0.8 k/uL (0-1.0); Monocytes % (A) 4 %; Neutrophils # (A) 15.7 k/uL (1.3-7.7); Neutrophils % (A) 89 %; Platelet Count 804 k/uL (150-450); RBC 4.74 m/uL (4.30-5.90); RDW 14.8 % (11.5-15.5); WBC 17.7 k/uL (3.8-10.6)
[2020-01-19 14:20] LABS: ALT 11 U/L (4-49); AST 20 U/L (17-59); African American GFR (CKD) >90 (>60 ml/min/1.73 sqM); Albumin 4.3 g/dL (3.5-5.0); Alkaline Phosphatase 170 U/L (38-126); Anion Gap 14 mmol/L; Blood Urea Nitrogen 9 mg/dL (9-20); Calcium 9.8 mg/dL (8.4-10.2); Carbon Dioxide 27 mmol/L (22-30); Chloride 92 mmol/L (98-107); Glucose 318 mg/dL (74-99); Magnesium 2.1 mg/dL (1.6-2.3); Non-African American GFR(CKD) >90 (>60 ml/min/1.73 sqM); Phosphorus 3.3 mg/dL (2.5-4.5); Potassium 4.3 mmol/L (3.5-5.1); Sodium 133 mmol/L (137-145); Total Bilirubin 0.4 mg/dL (0.2-1.3); Total Protein 8.6 g/dL (6.3-8.2)
[2020-01-19 14:35] LABS: Glucose,Whole Blood 262 mg/dL (75-99)
[2020-01-19 14:48] LABS: C Reactive Protein 434.1 mg/L (<10.0)
[2020-01-19 15:08] LABS: Erythrocyte Sedimentation Rate 87 mm/hr (0-15)
[2020-01-19] MEDS: PIPERACILLIN-TAZOBACTAM 3.375 GM in SODIUM CHLORIDE 0.9% 100 ML IVPB SCH (15:56)
[2020-01-19] MEDS: DIPHENOX-ATROP 2.5-0.025 MG 1 EACH TAB PO SCH (21:47)
[2020-01-19] MEDS: PREGABALIN 75 MG CAP PO SCH (21:47)
[2020-01-19] MEDS: ATORVASTATIN 20 MG TAB PO SCH (21:47)
[2020-01-19] MEDS: GENTAMICIN 0.1% CREAM 15 GM TUBE TOPICAL SCH (21:59)
[2020-01-19] MEDS: PHENYTOIN SODIUM EXTENDED 100 MG CAP PO SCH (21:59)
[2020-01-19] MEDS ORDERED: VANCOMYCIN 750 MG in SODIUM CHLORIDE 0.9% 250 ML IVPB SCH (22:00)
[2020-01-19] MEDS: MECLIZINE 25 MG TAB PO SCH (23:22)
[2020-01-20 01:34] LABS: Glucose,Whole Blood 69 mg/dL (75-99)
[2020-01-20] MEDS: PIPERACILLIN-TAZOBACTAM 3.375 GM in SODIUM CHLORIDE 0.9% 100 ML IVPB SCH ×3 (01:53→17:01)
[2020-01-20 02:14] LABS: Glucose,Whole Blood 69 mg/dL (75-99)
[2020-01-20 02:36] LABS: Glucose,Whole Blood 140 mg/dL (75-99)
[2020-01-20] MEDS: SODIUM CHLORIDE 0.9% 1,000 ML IV SCH ×2 (06:08→17:04)
[2020-01-20 07:25] LABS: Glucose,Whole Blood 316 mg/dL (75-99)
[2020-01-20] MEDS: INSULIN DETEMIR (LEVEMIR) 100 UNIT/ML SYR SQ SCH (09:24)
[2020-01-20] MEDS: MECLIZINE 25 MG TAB PO SCH ×4 (09:24→20:40)
[2020-01-20] MEDS: DIPHENOX-ATROP 2.5-0.025 MG 1 EACH TAB PO SCH ×2 (09:24→20:40)
[2020-01-20] MEDS: PREGABALIN 75 MG CAP PO SCH ×2 (09:24→20:40)
[2020-01-20] MEDS: PANTOPRAZOLE 40 MG TABLET PO SCH (09:25)
[2020-01-20] MEDS: MUPIROCIN 2% OINT 22 GM TUBE TOPICAL SCH (09:25)
[2020-01-20] MEDS: PIOGLITAZONE 15 MG TAB PO SCH (09:25)
[2020-01-20] MEDS: PHENYTOIN SODIUM EXTENDED 100 MG CAP PO SCH ×2 (09:25→20:40)
[2020-01-20] MEDS: TRIAMCINOLONE ACET 0.5% CREAM 15 GM TUBE TOPICAL SCH (09:25)
[2020-01-20 10:17] LABS: Basophils % (A) 0 %; Eosinophils % (A) 0 %; HCT 27.7 % (39.0-53.0); Hypochromasia Slight; Lymphocytes # (A) 0.8 k/uL (1.0-4.8); Lymphocytes % (A) 6 %; MCH 23.4 pg (25.0-35.0); MCHC 30.9 g/dL (31.0-37.0); MCV 75.6 fL (80.0-100.0); Mean Platelet Volume 6.1; Microcytosis Slight; Monocytes # (A) 0.9 k/uL (0-1.0); Monocytes % (A) 7 %; Neutrophils # (A) 11.9 k/uL (1.3-7.7); Neutrophils % (A) 86 %; Platelet Count 551 k/uL (150-450); RBC 3.66 m/uL (4.30-5.90); RDW 14.6 % (11.5-15.5); WBC 13.8 k/uL (3.8-10.6)
[2020-01-20 10:20] LABS: HGB 8.5 gm/dL (13.0-17.5)
[2020-01-20 11:26] LABS: Glucose,Whole Blood 303 mg/dL (75-99)
--- NOTE | 2020-01-20 11:26 | P.HPIM ---
History of Present Illness H&P Date: 01/20/20 Chief Complaint: Infected wound This is a 59-year-old male patient presented to the ER in the wound care center for concerns of infection to lower extremity wound. Patient has been chronically treated for his wounds in the wound care center but states that wound has become increasingly worse with the past few days denies any fevers shakiness chills at home. Patient is a known diabetic type I. Additional medical history includes GERD, hyperlipidemia, osteoporosis, seizures. X-rays were completed showing soft tissue irregularity and edema could be on the basis of infectious etiology or cellulitis no osseous abnormality to suggest osteomyelitis. Patient's heart rate elevated upon admit. White blood cell also elevated at 17.7. Lactic acid 2.1. Patient has been admitted and started on Zosyn and vancomycin blood cultures ordered. Patient received [address] Moran per infectious disease have been consulted. At this time patient denies any chest pain or shortness breath. Patient denies nausea vomiting or diarrhea. Patient denies any urinary burning or frequency Review of Systems please refer to HPI otherwise unremarkable Past Medical History Past Medical History: Cancer, Diabetes Mellitus, GERD/Reflux, Hyperlipidemia, Osteoarthritis (OA), Seizure Disorder Additional Past Medical History / Comment(s): Last seizure 6 months ago. 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 Diarrhea occ. 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 Past Anesthesia/Blood Transfusion Reactions: No Reported Reaction Past Psychological History: Depression Smoking Status: Never smoker Past Alcohol Use History: None Reported Past Drug Use History: None Reported - Past Family History Father Additional Family Medical History / Comment(s): AT AGE 57 Mother Family Medical History: Cancer Sister(s) Family Medical History: Diabetes Mellitus Medications and Allergies Home Medications Medication Instructions Recorded Confirmed Type Phenytoin Sodium Extended 200 mg PO BID 11/17/16 01/19/20 History [Dilantin] Omeprazole 20 mg PO DAILY 06/13/17 01/19/20 History Pioglitazone HCl [Actos] 15 mg PO DAILY 10/03/18 01/19/20 History Diphenox-Atrop 2.5-0.025 mg 1 tab PO BID 11/17/19 01/19/20 History [Lomotil] Pregabalin [Lyrica] 75 mg PO BID 11/17/19 01/19/20 History Rosuvastatin [Crestor] 10 mg PO HS 11/17/19 01/19/20 History Collagenase [Santyl] 1 applic TOPICAL DAILY 01/19/20 01/19/20 History Gentamicin 0.1% Cream 1 applic TOPICAL BID 01/19/20 01/19/20 History HYDROcodone/APAP 5-325MG [[place] 1 tab PO BID PRN 01/19/20 01/19/20 History 5-325] Insulin Glargine [Lantus] 35 unit SQ DAILY 01/19/20 01/19/20 History Insulin Glulisine [Apidra] See Protocol SQ AC-TID 01/19/20 01/19/20 History Meclizine [Antivert] 25 mg PO QID 01/19/20 01/19/20 History Mupirocin 2% Oint [Bactroban 2% 1 applic TOPICAL DAILY 01/19/20 01/19/20 History Oint] Triamcinolone 0.5% Cream [Kenalog 1 applic TOPICAL DAILY 01/19/20 01/19/20 History 0.5% Cream] Allergies Allergy/AdvReac Type Severity Reaction Status Date / Time No Known Allergies Allergy Verified 01/19/20 13:26 Physical Exam Vitals: Vital Signs Temp Pulse Pulse Resp BP BP Pulse Ox 01/20/20 05:23 100.3 F H 112 H 16 118/64 93 L 01/20/20 00:30 119 H 18 01/20/20 00:05 100.3 F H 119 H 18 142/71 96 01/19/20 23:45 99.9 F H 115 H 18 124/63 98 01/19/20 22:45 99.8 F H 110 H 18 118/57 98 01/19/20 21:45 101.1 F H 112 H 19 116/71 97 01/19/20 18:42 99.2 F 108 H 14 114/59 98 01/19/20 16:48 122 H 14 117/56 96 01/19/20 14:55 99.4 F 120 H 16 145/74 99 01/19/20 12:35 97.6 F 102 H 14 145/77 100 01/19/20 11:47 97.1 F L 106 H 18 142/70 100 Intake and Output 01/19/20 01/20/20 01/20/20 22:59 06:59 14:59 Intake Total 620 Balance 620 Intake: Intake, IV Titration 620 Amount Piperacillin-Tazobactam 3 100 .375 gm In Sodium Chloride 0.9% 100 ml @ 25 mls/hr IVPB Q8HR ERIN Rx# :[id number] Sodium Chloride 0.9% 1, 270 000 ml @ 75 mls/hr IV . [id number] ERIN Rx#:[id number] Vancomycin 750 mg In 250 Sodium Chloride 0.9% 250 ml @ 125 mls/hr IVPB Q8H ERIN Rx#:[id number] Other: Voiding Method Toilet Toilet Urinal Urinal # Voids 0 # Bowel Movements 0 Weight 45.359 kg Head normocephalic Neck supple Lungs clear to auscultation bilaterally no wheezing or crackles Heart regular rate and rhythm S1-S2, no rub or gallop Abdomen is soft nontender nondistended positive bowel sounds no hepatosplenomegaly Extremities right lower leg wound with he was drainage from approximately quarter size wound erythema noted around, foul smell noted Neuro alert and orientated to 3 Results CBC & Chem 7: 01/20/20 09:52 01/19/20 12:41 Labs: Abnormal Lab Results - Last 24 Hours (Table) 01/19/20 01/19/20 01/19/20 Range/Units 12:41 12:41 12:42 WBC 17.7 H (3.8-10.6) k/uL RBC (4.30-5.90) m/uL Hgb 11.4 L (13.0-17.5) gm/dL Hct 35.9 L (39.0-53.0) % MCV 75.7 L (80.0-100.0) fL MCH 24.1 L (25.0-35.0) pg MCHC (31.0-37.0) g/dL Plt Count 804 H (150-450) k/uL Neutrophils # 15.7 H (1.3-7.7) k/uL Lymphocytes # 0.9 L (1.0-4.8) k/uL ESR 87 H (0-15) mm/hr Sodium 133 L (137-145) mmol/L Chloride 92 L (98-107) mmol/L Creatinine 0.60 L (0.66-1.25) mg/dL Glucose 318 H (74-99) mg/dL POC Glucose (mg/dL) (75-99) mg/dL Plasma Lactic Acid Michael 2.1 H* (0.7-2.0) mmol/L Alkaline Phosphatase 170 H (38-126) U/L C-Reactive Protein 434.1 H (<10.0) mg/L Total Protein 8.6 H (6.3-8.2) g/dL Urine Glucose (UA) (Negative) 01/19/20 01/19/20 01/20/20 Range/Units 12:44 14:33 01:32 WBC (3.8-10.6) k/uL RBC (4.30-5.90) m/uL Hgb (13.0-17.5) gm/dL Hct (39.0-53.0) % MCV (80.0-100.0) fL MCH (25.0-35.0) pg MCHC (31.0-37.0) g/dL Plt Count (150-450) k/uL Neutrophils # (1.3-7.7) k/uL Lymphocytes # (1.0-4.8) k/uL ESR (0-15) mm/hr Sodium (137-145) mmol/L Chloride (98-107) mmol/L Creatinine (0.66-1.25) mg/dL Glucose (74-99) mg/dL POC Glucose (mg/dL) 262 H 69 L (75-99) mg/dL Plasma Lactic Acid Michael (0.7-2.0) mmol/L Alkaline Phosphatase (38-126) U/L C-Reactive Protein (<10.0) mg/L Total Protein (6.3-8.2) g/dL Urine Glucose (UA) 4+ H (Negative) 01/20/20 01/20/20 01/20/20 Range/Units 02:03 02:34 07:25 WBC (3.8-10.6) k/uL RBC (4.30-5.90) m/uL Hgb (13.0-17.5) gm/dL Hct (39.0-53.0) % MCV (80.0-100.0) fL MCH (25.0-35.0) pg MCHC (31.0-37.0) g/dL Plt Count (150-450) k/uL Neutrophils # (1.3-7.7) k/uL Lymphocytes # (1.0-4.8) k/uL ESR (0-15) mm/hr Sodium (137-145) mmol/L Chloride (98-107) mmol/L Creatinine (0.66-1.25) mg/dL Glucose (74-99) mg/dL POC Glucose (mg/dL) 69 L 140 H 316 H (75-99) mg/dL Plasma Lactic Acid Michael (0.7-2.0) mmol/L Alkaline Phosphatase (38-126) U/L C-Reactive Protein (<10.0) mg/L Total Protein (6.3-8.2) g/dL Urine Glucose (UA) (Negative) 01/20/20 Range/Units 09:52 WBC 13.8 H (3.8-10.6) k/uL RBC 3.66 L (4.30-5.90) m/uL Hgb 8.5 L D (13.0-17.5) gm/dL Hct 27.7 L (39.0-53.0) % MCV 75.6 L (80.0-100.0) fL MCH 23.4 L (25.0-35.0) pg MCHC 30.9 L (31.0-37.0) g/dL Plt Count 551 H (150-450) k/uL Neutrophils # 11.9 H (1.3-7.7) k/uL Lymphocytes # 0.8 L (1.0-4.8) k/uL ESR (0-15) mm/hr Sodium (137-145) mmol/L Chloride (98-107) mmol/L Creatinine (0.66-1.25) mg/dL Glucose (74-99) mg/dL POC Glucose (mg/dL) (75-99) mg/dL Plasma Lactic Acid Michael (0.7-2.0) mmol/L Alkaline Phosphatase (38-126) U/L C-Reactive Protein (<10.0) mg/L Total Protein (6.3-8.2) g/dL Urine Glucose (UA) (Negative) Thrombosis Risk Factor Assmnt - Choose All That Apply Any of the Below Risk Factors Present?: Yes Each Factor Represents 1 point: Age 41-60 years Other Risk Factors: No Other congenital or acquired thrombophilia - If yes, enter type in comment: No Thrombosis Risk Factor Assessment Total Risk Factor Score: 1 Thrombosis Risk Factor Assessment Level: Low Risk Assessment and Plan Assessment: 1. Cellulitis left lower extremity with sepsis. White blood cell count elevated at 17.7. Elevated heart rate. Lactic acid 2.1. Patient started on Zosyn and vancomycin. Repeat lactic acid 1.0. Blood cultures ordered. Dr. Moran per infectious disease has been consulted. 2. Elevated heart rate likely secondary to infection. EKG ordered. Cardiac monitoring ordered. Patient denies chest pain. 3. History of type 1 diabetes mellitus. A1c will be ordered. Sliding scale insulin ordered. Home dose of long-acting ordered. 4. History of GERD. 5. History of hyperlipidemia. Maintain on statin 6. History of seizures last seizure 6 months ago DVT prophylaxis Lovenox. GI prophylaxis Pepcid Continue normal saline at 75 Zosyn and vancomycin for IV antibiotics Blood culture ordered Dr. Moran consulted for infectious disease Time with Patient: Greater than 30 (Greater than 60% of the total time spent in counseling and coordination of care)
[2020-01-20] MEDS: VANCOMYCIN 750 MG in SODIUM CHLORIDE 0.9% 250 ML IVPB SCH ×3 (12:28→22:01)
[2020-01-20] MEDS: GENTAMICIN 0.1% CREAM 15 GM TUBE TOPICAL SCH ×2 (12:28→20:48)
[2020-01-20] MEDS: INSULIN ASPART (NovoLOG) 100 UNIT/ML VIAL SQ SCH ×3 (12:28→20:47)
[2020-01-20 13:49] VITALS: BMI 18.8
[2020-01-20] MEDS: COLLAGENASE 250 UNIT/GM OINTMENT 30 GM TUBE TOPICAL SCH (14:01)
[2020-01-20 16:05] LABS: African American GFR (CKD) 113.3 (60.0-200.0); Albumin/Globulin Ratio 1.15 (1.60-3.17); Anion Gap 7.8 mmol/L (4.00-12.00); BUN/Creat Ratio 11.25 Ratio (12.00-20.00); Calcium 7.8 mg/dL (8.7-10.3); Carbon Dioxide 27.2 mmol/L (21.6-31.8); Globulin 2.6 g/dL (1.6-3.3); Non-African American GFR(CKD) 97.8 (60.0-200.0); Potassium 3.9 mmol/L (3.5-5.5); Total Bilirubin 0.1 mg/dL (0.2-1.2); Total Protein 5.6 g/dL (6.2-8.2)
[2020-01-20] MEDS: HYDROcodone/APAP 5-325MG 1 EACH TAB PO PRN (17:02)
[2020-01-20 17:25] LABS: Glucose,Whole Blood 141 mg/dL (75-99)
[2020-01-20 19:52] LABS: Glucose,Whole Blood 201 mg/dL (75-99)
[2020-01-20 20:14] LABS: Hemoglobin A1C 12.8 % (4.0-6.0)
[2020-01-20] MEDS: ATORVASTATIN 20 MG TAB PO SCH (20:40)
--- NOTE | 2020-01-20 23:11 | P.CONS ---
History of Present Illness - Reason for Consult Consult date: 01/20/20 Left diabetic leg wound Requesting physician: Helen Chen - Chief Complaint Left leg wound worsening and possible infection x few days - History of Present Illness Patient is a 59 year male with a past medical history significant for diabetes mellitus type 1 and this patient also have a history of PAD patient did have underlying neuropathy and apparently has been dealing with a nonhealing wound to the left lower extremity the patient has for a couple of weeks now and specifically how it started the patient didn't have any explanation did mention that he goes to the wound care center weekly and was told the day of presentation hospital that he needs to go to the hospital as a wound INFECTED patient denies high-grade fever or any chills the patient did have pain to the left leg wound area more of a dull aching pain. 3-4 Out of 10 and no radiation patient denies any foul-smelling drainage from it, on presentation hospital the patient was afebrile however subsequently he did spike a fever of 101 Fahrenheit patient did have elevated white count of 17.7 and a sed rate of 87 patient was started on vancomycin and Zosyn and admitted to the hospital and infectious disease was consulted for further management of antibiotic therapy patient did have x-rays of the left leg which did not show any bony changes suspicious for osteomyelitis, patient did have cultures obtained from the left leg wound on 12/27/2019 which did grow MRSA strep and E. coli as well as anaerobes Review of Systems Positive point has been mentioned in the HPI rest of the systems are negative Past Medical History Past Medical History: Cancer, Diabetes Mellitus, GERD/Reflux, Hyperlipidemia, Osteoarthritis (OA), Seizure Disorder Additional Past Medical History / Comment(s): Last seizure 6 months ago. 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 Diarrhea occ. 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 Past Anesthesia/Blood Transfusion Reactions: No Reported Reaction Past Psychological History: Depression Smoking Status: Never smoker Past Alcohol Use History: None Reported Past Drug Use History: None Reported - Past Family History Father Additional Family Medical History / Comment(s): AT AGE 57 Mother Family Medical History: Cancer Sister(s) Family Medical History: Diabetes Mellitus Medications and Allergies Home Medications Medication Instructions Recorded Confirmed Type Phenytoin Sodium Extended 200 mg PO BID 11/17/16 01/19/20 History [Dilantin] Omeprazole 20 mg PO DAILY 06/13/17 01/19/20 History Pioglitazone HCl [Actos] 15 mg PO DAILY 10/03/18 01/19/20 History Diphenox-Atrop 2.5-0.025 mg 1 tab PO BID 11/17/19 01/19/20 History [Lomotil] Pregabalin [Lyrica] 75 mg PO BID 11/17/19 01/19/20 History Rosuvastatin [Crestor] 10 mg PO HS 11/17/19 01/19/20 History Collagenase [Santyl] 1 applic TOPICAL DAILY 01/19/20 01/19/20 History Gentamicin 0.1% Cream 1 applic TOPICAL BID 01/19/20 01/19/20 History HYDROcodone/APAP 5-325MG [[place] 1 tab PO BID PRN 01/19/20 01/19/20 History 5-325] Insulin Glargine [Lantus] 35 unit SQ DAILY 01/19/20 01/19/20 History Insulin Glulisine [Apidra] See Protocol SQ AC-TID 01/19/20 01/19/20 History Meclizine [Antivert] 25 mg PO QID 01/19/20 01/19/20 History Mupirocin 2% Oint [Bactroban 2% 1 applic TOPICAL DAILY 01/19/20 01/19/20 History Oint] Triamcinolone 0.5% Cream [Kenalog 1 applic TOPICAL DAILY 01/19/20 01/19/20 History 0.5% Cream] Allergies Allergy/AdvReac Type Severity Reaction Status Date / Time No Known Allergies Allergy Verified 01/19/20 13:26 Physical Exam Vitals: Vital Signs Temp Pulse Pulse Resp BP BP Pulse Ox 01/20/20 13:00 99.7 F H 107 H 18 113/65 94 L 01/20/20 05:23 100.3 F H 112 H 16 118/64 93 L 01/20/20 00:30 119 H 18 01/20/20 00:05 100.3 F H 119 H 18 142/71 96 01/19/20 23:45 99.9 F H 115 H 18 124/63 98 01/19/20 22:45 99.8 F H 110 H 18 118/57 98 01/19/20 21:45 101.1 F H 112 H 19 116/71 97 01/19/20 18:42 99.2 F 108 H 14 114/59 98 01/19/20 16:48 122 H 14 117/56 96 Intake and Output 01/20/20 01/20/20 01/20/20 06:59 14:59 22:59 Intake Total 620 950 Balance 620 950 Intake: Intake, IV Titration 620 950 Amount Piperacillin-Tazobactam 3 100 100 .375 gm In Sodium Chloride 0.9% 100 ml @ 25 mls/hr IVPB Q8HR [facility] Rx# :[id number] Sodium Chloride 0.9% 1, 270 600 000 ml @ 75 mls/hr IV . [id number] [facility] Rx#:[id number] Vancomycin 750 mg In 250 250 Sodium Chloride 0.9% 250 ml @ 125 mls/hr IVPB Q8H [facility] Rx#:[id number] Other: Voiding Method Toilet Toilet Urinal Urinal # Voids 0 # Bowel Movements 0 Weight 45.359 kg GENERAL DESCRIPTION: Middle-aged male lying in bed, no distress. No tachypnea or accessory muscle of respiration use. HEENT: Shows Pallor , no scleral icterus. Oral mucous membrane is dry. No pharyngeal erythema or thrush NECK: Trachea central, no thyromegaly. LUNGS: Unlabored breathing. Clear to auscultation anteriorly. No wheeze or crackle. HEART: S1, S2, regular rate and rhythm. No loud murmur ABDOMEN: Soft, no tenderness , guarding or rigidity, no organomegaly EXTREMITIES: Left lower leg did have a deep wound with some slough tissue surrounding swelling redness or foul-smelling drainage SKIN: No rash, no masses palpable. NEUROLOGICAL: The patient is awake, alert, oriented x3, mood and affect normal. Results CBC & Chem 7: 01/20/20 09:52 01/20/20 09:52 Labs: Abnormal Lab Results - Last 24 Hours (Table) 01/19/20 01/20/20 01/20/20 Range/Units 12:41 01:32 02:03 WBC (3.8-10.6) k/uL RBC (4.30-5.90) m/uL Hgb (13.0-17.5) gm/dL Hct (39.0-53.0) % MCV (80.0-100.0) fL MCH (25.0-35.0) pg MCHC (31.0-37.0) g/dL Plt Count (150-450) k/uL Neutrophils # (1.3-7.7) k/uL Lymphocytes # (1.0-4.8) k/uL ESR 87 H (0-15) mm/hr POC Glucose (mg/dL) 69 L 69 L (75-99) mg/dL 01/20/20 01/20/20 01/20/20 Range/Units 02:34 07:25 09:52 WBC 13.8 H (3.8-10.6) k/uL RBC 3.66 L (4.30-5.90) m/uL Hgb 8.5 L D (13.0-17.5) gm/dL Hct 27.7 L (39.0-53.0) % MCV 75.6 L (80.0-100.0) fL MCH 23.4 L (25.0-35.0) pg MCHC 30.9 L (31.0-37.0) g/dL Plt Count 551 H (150-450) k/uL Neutrophils # 11.9 H (1.3-7.7) k/uL Lymphocytes # 0.8 L (1.0-4.8) k/uL ESR (0-15) mm/hr POC Glucose (mg/dL) 140 H 316 H (75-99) mg/dL 01/20/20 Range/Units 11:14 WBC (3.8-10.6) k/uL RBC (4.30-5.90) m/uL Hgb (13.0-17.5) gm/dL Hct (39.0-53.0) % MCV (80.0-100.0) fL MCH (25.0-35.0) pg MCHC (31.0-37.0) g/dL Plt Count (150-450) k/uL Neutrophils # (1.3-7.7) k/uL Lymphocytes # (1.0-4.8) k/uL ESR (0-15) mm/hr POC Glucose (mg/dL) 303 H (75-99) mg/dL Assessment and Plan Assessment: 1-patient presented to hospital with sepsis in this patient who did have a fever of 122 Fahrenheit patient did have a white count of 17,000 source is likely left diabetic foot infection in this patient with a chronic nonhealing wound to the left leg with a recent culture done in outpatient setting positive for MRSA strep and persistent E. coli as well as anaerobes (1) Sepsis Current Visit: Yes Status: Acute Code(s): A41.9 - SEPSIS, UNSPECIFIED ORGANISM SNOMED Code(s): 64868598 (2) Infected wound Current Visit: Yes Status: Acute Code(s): T14.8XXA - OTHER INJURY OF UNSPECIFIED BODY REGION, INITIAL ENCOUNTER; L08.9 - LOCAL INFECTION OF THE SKIN AND SUBCUTANEOUS TISSUE, UNSP SNOMED Code(s): 07851295 Plan: 1- wound cultures were repeated both aerobic and anaerobic 2- bone scan to rule out underlying osteomyelitis 3-Vancomycin pharmacy to dose target trough of 15 while watching kidney function and Vanco trough closely 4-discontinue Zosyn to decrease risk of nephrotoxicity 5-we'll add cefepime 2 g every 24 hours and Flagyl We will follow on clinical condition and cultures to further adjust medication if needed Thank you for this consultation will follow this patient with you Time with Patient: Greater than 30
[2020-01-21] MEDS: SODIUM CHLORIDE 0.9% 1,000 ML IV SCH ×4 (00:44→17:39)
[2020-01-21] MEDS: VANCOMYCIN 750 MG in SODIUM CHLORIDE 0.9% 250 ML IVPB SCH ×2 (03:22→11:46)
[2020-01-21 07:06] LABS: Glucose,Whole Blood 106 mg/dL (75-99)
[2020-01-21] MEDS: INSULIN ASPART (NovoLOG) 100 UNIT/ML VIAL SQ SCH ×4 (08:36→21:19)
[2020-01-21] MEDS: PIOGLITAZONE 15 MG TAB PO SCH (08:52)
[2020-01-21] MEDS: CEFEPIME 2 GM in SODIUM CHLORIDE 0.9% 100 ML IVPB SCH ×2 (08:52→21:18)
[2020-01-21] MEDS: DIPHENOX-ATROP 2.5-0.025 MG 1 EACH TAB PO SCH ×2 (08:52→21:18)
[2020-01-21] MEDS: ENOXAPARIN 40 MG/0.4 ML SYRINGE SQ SCH (08:53)
[2020-01-21] MEDS: PHENYTOIN SODIUM EXTENDED 100 MG CAP PO SCH ×2 (08:53→21:22)
[2020-01-21] MEDS: metroNIDAZOLE 500 MG TAB PO SCH ×3 (08:53→21:18)
[2020-01-21] MEDS: PANTOPRAZOLE 40 MG TABLET PO SCH (08:53)
[2020-01-21] MEDS: PREGABALIN 75 MG CAP PO SCH ×2 (08:53→21:18)
[2020-01-21] MEDS: INSULIN DETEMIR (LEVEMIR) 100 UNIT/ML SYR SQ SCH (08:53)
[2020-01-21] MEDS: MECLIZINE 25 MG TAB PO SCH ×4 (08:53→21:18)
[2020-01-21] MEDS: HYDROcodone/APAP 5-325MG 1 EACH TAB PO PRN (09:00)
[2020-01-21] MEDS: FAMOTIDINE 20 MG TAB PO SCH (09:00)
[2020-01-21 09:33] LABS: Basophils % (A) 0 %; Eosinophils # (A) 0.1 k/uL (0-0.7); Eosinophils % (A) 0 %; HCT 30.1 % (39.0-53.0); HGB 9.1 gm/dL (13.0-17.5); Hypochromasia Moderate; Lymphocytes # (A) 1.3 k/uL (1.0-4.8); Lymphocytes % (A) 7 %; MCHC 30.2 g/dL (31.0-37.0); Mean Platelet Volume 6.4; Microcytosis Slight; Monocytes % (A) 6 %; Neutrophils % (A) 85 %; Platelet Count 572 k/uL (150-450); RBC 3.96 m/uL (4.30-5.90); RDW 14.6 % (11.5-15.5); WBC 17.6 k/uL (3.8-10.6)
[2020-01-21] MEDS: ONDANSETRON 4 MG/2 ML VIAL IVP PRN ×2 (09:52→17:39)
[2020-01-21] MEDS: ACETAMINOPHEN TAB 325 MG TAB PO PRN (09:52)
[2020-01-21 09:59] LABS: ALT 51 U/L (4-49); AST 103 U/L (17-59); African American GFR (CKD) >90 (>60 ml/min/1.73 sqM); Albumin 2.8 g/dL (3.5-5.0); Albumin/Globulin Ratio 0.9; Alkaline Phosphatase 191 U/L (38-126); Anion Gap 6 mmol/L; Blood Urea Nitrogen 12 mg/dL (9-20); Calcium 7.8 mg/dL (8.4-10.2); Carbon Dioxide 26 mmol/L (22-30); Chloride 98 mmol/L (98-107); Globulin 3.2 g/dL; Glucose 164 mg/dL (74-99); Non-African American GFR(CKD) >90 (>60 ml/min/1.73 sqM); Potassium 4.2 mmol/L (3.5-5.1); Sodium 130 mmol/L (137-145); Total Bilirubin 0.3 mg/dL (0.2-1.3)
[2020-01-21 12:26] LABS: Glucose,Whole Blood 193 mg/dL (75-99)
--- NOTE | 2020-01-21 13:48 | P.PN ---
Subjective Progress Note Date: 01/21/20 This is a 59-year-old male patient presented to the ER in the wound care center for concerns of infection to lower extremity wound. Patient has been chronically treated for his wounds in the wound care center but states that wound has become increasingly worse with the past few days denies any fevers sh akiness chills at home. Patient is a known diabetic type I. Additional medical history includes GERD, hyperlipidemia, osteoporosis, seizures. X-rays were completed showing soft tissue irregularity and edema could be on the basis of infectious etiology or cellulitis no osseous abnormality to suggest osteomyelitis. Patient's heart rate elevated upon admit. White blood cell also elevated at 17.7. Lactic acid 2.1. Patient has been admitted and started on Zosyn and vancomycin blood cultures ordered. Patient received [address] Moran per infectious disease have been consulted. At this time patient denies any chest pain or shortness breath. Patient denies nausea vomiting or diarrhea. Patient denies any urinary burning or frequency On 01/21/2020 patient was seen and examined on the medical floor he is alert and oriented 3 in no apparent distress , he is complaining of cough , he had episodes of elevated temperature up to 102 through the night he was also tachycardic with heart rate of 120 he is maintained on IV antibiotic cefepime and vancomycin for lower extremity cellulitis and sepsis, at this time will check chest x-ray and check Covid 19 chest to rule out other causes of fever and sepsis, otherwise patient denies any complaints there is no headache or dizzin ess no chest pain no shortness of breath no nausea or vomiting no abdominal pain no diarrhea no blood in the stools no burning with urination no frequency or urgency and no hematuria Objective - Vital Signs Vital signs: Vital Signs Temp 100.0 F H 01/21/20 06:00 Pulse 115 H 01/21/20 05:00 Resp 16 01/21/20 05:00 BP 118/65 01/21/20 05:00 Pulse Ox 90 L 01/21/20 05:00 Intake & Output 01/20/20 01/21/20 01/21/20 18:59 06:59 18:59 Intake Total 950 1180 Balance 950 1180 Weight 45.359 kg Intake: Intake, IV Titration 950 Amount Piperacillin-Tazobactam 3 100 .375 gm In Sodium Chloride 0.9% 100 ml @ 25 mls/hr IVPB Q8HR [facility] Rx# :[id number] Sodium Chloride 0.9% 1, 600 000 ml @ 75 mls/hr IV . [id number] [facility] Rx#:[id number] Vancomycin 750 mg In 250 Sodium Chloride 0.9% 250 ml @ 125 mls/hr IVPB Q8H [facility] Rx#:[id number] Oral 1180 Other: Voiding Method Toilet Toilet Urinal # Voids 1 - Exam In general patient is alert and oriented 3 in no apparent distress Head normocephalic and atraumatic Neck supple no JVD no goiter Lungs clear to auscultation bilaterally no wheezing or crackles Heart regular rate and rhythm S1-S2, no rub or gallop Abdomen is soft nontender nondistended positive bowel sounds no hepatosplenomegaly Extremities right lower leg wound with he was drainage from approximately quarter size wound erythema noted around, foul smell noted Neuro no gross focal neurological deficit - Labs CBC & Chem 7: 01/21/20 09:09 01/21/20 09:09 Labs: Abnormal Lab Results - Last 24 Hours (Table) 01/20/20 01/20/20 01/20/20 Range/Units 09:52 09:52 09:52 WBC 13.8 H (3.8-10.6) k/uL RBC 3.66 L (4.30-5.90) m/uL Hgb 8.5 L D (13.0-17.5) gm/dL Hct 27.7 L (39.0-53.0) % MCV 75.6 L (80.0-100.0) fL MCH 23.4 L (25.0-35.0) pg MCHC 30.9 L (31.0-37.0) g/dL Plt Count 551 H (150-450) k/uL Neutrophils # 11.9 H (1.3-7.7) k/uL Lymphocytes # 0.8 L (1.0-4.8) k/uL Sodium 133 L (135-145) mmol/L BUN/Creatinine Ratio 11.25 L (12.00-20.00) Ratio Glucose 312 H (70-110) mg/dL POC Glucose (mg/dL) (75-99) mg/dL Hemoglobin A1c 12.8 H (4.0-6.0) % Calcium 7.8 L (8.7-10.3) mg/dL Total Bilirubin 0.1 L (0.2-1.2) mg/dL Alkaline Phosphatase 137 H (41-126) U/L Total Protein 5.6 L (6.2-8.2) g/dL Albumin 3.00 L (3.80-4.90) g/dL Albumin/Globulin Ratio 1.15 L (1.60-3.17) g/dL 01/20/20 01/20/20 01/20/20 Range/Units 11:14 17:24 19:51 WBC (3.8-10.6) k/uL RBC (4.30-5.90) m/uL Hgb (13.0-17.5) gm/dL Hct (39.0-53.0) % MCV (80.0-100.0) fL MCH (25.0-35.0) pg MCHC (31.0-37.0) g/dL Plt Count (150-450) k/uL Neutrophils # (1.3-7.7) k/uL Lymphocytes # (1.0-4.8) k/uL Sodium (135-145) mmol/L BUN/Creatinine Ratio (12.00-20.00) Ratio Glucose (70-110) mg/dL POC Glucose (mg/dL) 303 H 141 H 201 H (75-99) mg/dL Hemoglobin A1c (4.0-6.0) % Calcium (8.7-10.3) mg/dL Total Bilirubin (0.2-1.2) mg/dL Alkaline Phosphatase (41-126) U/L Total Protein (6.2-8.2) g/dL Albumin (3.80-4.90) g/dL Albumin/Globulin Ratio (1.60-3.17) g/dL 01/21/20 Range/Units 07:04 WBC (3.8-10.6) k/uL RBC (4.30-5.90) m/uL Hgb (13.0-17.5) gm/dL Hct (39.0-53.0) % MCV (80.0-100.0) fL MCH (25.0-35.0) pg MCHC (31.0-37.0) g/dL Plt Count (150-450) k/uL Neutrophils # (1.3-7.7) k/uL Lymphocytes # (1.0-4.8) k/uL Sodium (135-145) mmol/L BUN/Creatinine Ratio (12.00-20.00) Ratio Glucose (70-110) mg/dL POC Glucose (mg/dL) 106 H (75-99) mg/dL Hemoglobin A1c (4.0-6.0) % Calcium (8.7-10.3) mg/dL Total Bilirubin (0.2-1.2) mg/dL Alkaline Phosphatase (41-126) U/L Total Protein (6.2-8.2) g/dL Albumin (3.80-4.90) g/dL Albumin/Globulin Ratio (1.60-3.17) g/dL Microbiology - Last 24 Hours (Table) 01/19/20 12:42 Blood Culture - Preliminary Blood No Growth after 24 hours Assessment and Plan Assessment: 1. Cellulitis left lower extremity with sepsis. White blood cell count elevated at 17.7. Elevated heart rate. Lactic acid 2.1. Patient started on Zosyn and vancomycin. Repeat lactic acid 1.0. Blood cultures ordered. Dr. Moran per infectious disease has been consulted. 2. Elevated heart rate likely secondary to infection. EKG ordered. Cardiac monitoring ordered. Patient denies chest pain. 3. History of type 1 diabetes mellitus. A1c will be ordered. Sliding scale insulin ordered. Home dose of long-acting ordered. 4. History of GERD. 5. History of hyperlipidemia. Maintain on statin 6. History of seizures last seizure 6 months ago 7. Cough Will check chest x-ray and check Covid 19 testing DVT prophylaxis Lovenox. GI prophylaxis Pepcid Continue normal saline at 75 Zosyn and vancomycin for IV antibiotics Blood culture ordered Dr. Moran consulted for infectious disease
[2020-01-21] MEDS: GENTAMICIN 0.1% CREAM 15 GM TUBE TOPICAL SCH (13:59)
[2020-01-21] MEDS: MUPIROCIN 2% OINT 22 GM TUBE TOPICAL SCH (13:59)
[2020-01-21] MEDS: TRIAMCINOLONE ACET 0.5% CREAM 15 GM TUBE TOPICAL SCH (14:00)
[2020-01-21] MEDS: COLLAGENASE 250 UNIT/GM OINTMENT 30 GM TUBE TOPICAL SCH ×2 (14:01→15:48)
--- NOTE | 2020-01-21 14:36 | NM ---
EXAMINATION TYPE: NM bone 3 phase DATE OF EXAM: 01/21/2020 COMPARISON: NONE HISTORY: Left sided leg wound. Triple phase bone scintigraphy was performed following the injection of 23 mCi Tc 99m MDP. Immediate images and 3 hours post injection images acquired. FINDINGS: The flow study shows hyperemia of the left lower leg and left foot compared to the right. Immediate i mages show persistent hyperemia in the soft tissues of the left lower leg and hindfoot. Delayed images show focal increased uptake in the distal left tibia and in the talus and calcaneus. U ptake is diffuse in the bones of the left hindfoot. Impression Delayed increased uptake in the distal left tibia and the left calcaneus and talus. This is a diffuse pattern and I think more likely related to hyperemia of the leg and not related to osteomyelitis. Th is would be an unusual pattern to have osteomyelitis in all 3 bones. Multifocal osteomyelitis not ent irely excluded.
--- NOTE | 2020-01-21 15:07 | XR ---
EXAMINATION TYPE: XR chest 1V portable DATE OF EXAM: 01/21/2020 COMPARISON: 06/04/2017 HISTORY: Cough TECHNIQUE: FINDINGS: There is some airspace infiltrate right lower lobe in the right paraspinal region. There is some coarsening of interstitial markings in both lungs. Heart size is normal. There are no hilar mas ses. There is no evidence of pleural effusion. IMPRESSION: Compared to old exam there is new right lower lobe pneumonia. There is also a mild inters titial pulmonary infiltrate in both lungs.
[2020-01-21] MEDS ORDERED: LIDOCAINE 1% INJ 10MG/ML (20 ML MDV) SQ ONE (15:19)
[2020-01-21 17:21] LABS: Glucose,Whole Blood 132 mg/dL (75-99)
[2020-01-21] MEDS: MENTHOL (NICE) LOZENGE MUCOUS MEM PRN ×2 (17:38→21:37)
[2020-01-21 20:00] LABS: Glucose,Whole Blood 115 mg/dL (75-99)
[2020-01-21] MEDS: VANCOMYCIN 1,000 MG in SODIUM CHLORIDE 0.9% 250 ML IVPB SCH (21:18)
[2020-01-21] MEDS: ATORVASTATIN 20 MG TAB PO SCH (21:18)
--- NOTE | 2020-01-21 23:29 | PN ---
PROGRESS NOTE DATE OF SERVICE: 01/21/2020. REASON FOR FOLLOWUP: Left leg wound and possible osteomyelitis. INTERVAL HISTORY: The patient is currently afebrile. Still complaining of pain to the left leg wound area. No chest pain. No cough. No abdominal pain or diarrhea. PHYSICAL EXAMINATION: Blood pressure 140/82 with a pulse of 108, temperature 99.7. He is 90% on room air. General description: The patient is a middle-aged male lying in bed in no distress. Respiratory system: Unlabored breathing, clear to auscultation anteriorly. Heart S1, S2. Regular rate and rhythm. Abdomen soft, no tenderness. Left leg wound did have some necrotic changes be exposed surrounding redness. LABS: Hemoglobin 9.8, white count 8.6, BUN of 12, creatinine 0.56. Liver enzymes mildly elevated. Blood culture so far negative. DIAGNOSTIC IMPRESSION AND PLAN: Patient with left leg wound, chronic with concern for cellulitis and possible osteo. Recommend getting a vascular surgery evaluation for possible debridement and deep cultures. Continue with current possible antibiotic in the form of cefepime and vancomycin, Flagyl. Local care with Santyl and monitor clinical course closely. MMODL / IJN: [id number] /
[2020-01-22] MEDS: SODIUM CHLORIDE 0.9% 1,000 ML IV SCH ×3 (03:55→17:33)
[2020-01-22] MEDS: VANCOMYCIN 1,000 MG in SODIUM CHLORIDE 0.9% 250 ML IVPB SCH ×3 (03:55→20:47)
[2020-01-22] MEDS: HYDROcodone/APAP 5-325MG 1 EACH TAB PO PRN (05:15)
[2020-01-22 05:58] LABS: Basophils # (A) 0.1 k/uL (0-0.2); Basophils % (A) 1 %; Eosinophils % (A) 0 %; HCT 26.6 % (39.0-53.0); HGB 8.1 gm/dL (13.0-17.5); Hypochromasia Moderate; Lymphocytes # (A) 0.7 k/uL (1.0-4.8); Lymphocytes % (A) 6 %; MCH 23.7 pg (25.0-35.0); MCHC 30.4 g/dL (31.0-37.0); MCV 77.9 fL (80.0-100.0); Mean Platelet Volume 6.6; Monocytes # (A) 0.6 k/uL (0-1.0); Monocytes % (A) 5 %; Neutrophils # (A) 9.8 k/uL (1.3-7.7); Neutrophils % (A) 86 %; Platelet Count 476 k/uL (150-450); RBC 3.41 m/uL (4.30-5.90); WBC 11.4 k/uL (3.8-10.6)
[2020-01-22 06:39] LABS: Glucose,Whole Blood 162 mg/dL (75-99)
[2020-01-22] MEDS: ENOXAPARIN 40 MG/0.4 ML SYRINGE SQ SCH (08:39)
[2020-01-22] MEDS: CEFEPIME 2 GM in SODIUM CHLORIDE 0.9% 100 ML IVPB SCH ×2 (08:39→21:56)
[2020-01-22] MEDS: FAMOTIDINE 20 MG TAB PO SCH (08:40)
[2020-01-22] MEDS: DIPHENOX-ATROP 2.5-0.025 MG 1 EACH TAB PO SCH ×2 (08:40→21:56)
[2020-01-22] MEDS: INSULIN DETEMIR (LEVEMIR) 100 UNIT/ML SYR SQ SCH (08:40)
[2020-01-22] MEDS: metroNIDAZOLE 500 MG TAB PO SCH ×3 (08:41→21:57)
[2020-01-22] MEDS: INSULIN ASPART (NovoLOG) 100 UNIT/ML VIAL SQ SCH ×4 (08:41→21:56)
[2020-01-22] MEDS: PREGABALIN 75 MG CAP PO SCH ×2 (08:41→21:57)
[2020-01-22] MEDS: PANTOPRAZOLE 40 MG TABLET PO SCH (08:41)
[2020-01-22] MEDS: MECLIZINE 25 MG TAB PO SCH ×4 (08:41→21:57)
[2020-01-22] MEDS: PHENYTOIN SODIUM EXTENDED 100 MG CAP PO SCH ×2 (08:43→21:57)
[2020-01-22] MEDS: PIOGLITAZONE 15 MG TAB PO SCH (08:43)
[2020-01-22] MEDS: ONDANSETRON 4 MG/2 ML VIAL IVP PRN (08:55)
--- NOTE | 2020-01-22 08:58 | P.PN ---
Subjective Progress Note Date: 01/22/20 This is a 59-year-old male patient presented to the ER in the wound care center for concerns of infection to lower extremity wound. Patient has been chronically treated for his wounds in the wound care center but states that wound has become increasingly worse with the past few days denies any fevers sh akiness chills at home. Patient is a known diabetic type I. Additional medical history includes GERD, hyperlipidemia, osteoporosis, seizures. X-rays were completed showing soft tissue irregularity and edema could be on the basis of infectious etiology or cellulitis no osseous abnormality to suggest osteomyelitis. Patient's heart rate elevated upon admit. White blood cell also elevated at 17.7. Lactic acid 2.1. Patient has been admitted and started on Zosyn and vancomycin blood cultures ordered. Patient received [address] Moran per infectious disease have been consulted. At this time patient denies any chest pain or shortness breath. Patient denies nausea vomiting or diarrhea. Patient denies any urinary burning or frequency On 01/21/2020 patient was seen and examined on the medical floor he is alert and oriented 3 in no apparent distress , he is complaining of cough , he had episodes of elevated temperature up to 102 through the night he was also tachycardic with heart rate of 120 he is maintained on IV antibiotic cefepime and vancomycin for lower extremity cellulitis and sepsis, at this time will check chest x-ray and check Covid 19 chest to rule out other causes of fever and sepsis, otherwise patient denies any complaints there is no headache or dizzin ess no chest pain no shortness of breath no nausea or vomiting no abdominal pain no diarrhea no blood in the stools no burning with urination no frequency or urgency and no hematuria. On 01/22/2020 patient was seen and examined on the medical floor he is alert and oriented 3 he is complaining of nausea this morning otherwise he denies any complaints there is no fever or chills no headache or dizziness no chest pain no shortness of breath no cough vomiting no abdominal pain no diarrhea no blood in the stools no burning with urination no frequency or urgency and no hematuria. Patient is followed by infectious disease, consultation for vascular surgery was initiated for possible debridement of his lower extremity wound. Objective - Vital Signs Vital signs: Vital Signs Temp 99.7 F H 01/21/20 20:52 Pulse 128 H 01/21/20 20:52 Resp 16 01/21/20 20:52 BP 148/68 01/21/20 20:52 Pulse Ox 90 L 01/21/20 20:52 Intake & Output 01/21/20 01/21/20 01/22/20 06:59 18:59 06:59 Intake Total 1180 2127 1440 Output Total 460 Balance 1180 1667 1440 Intake: IV 1530 500 Invasive Line 1 30 Sodium Chloride 0.9% 1, 1500 500 000 ml @ 125 mls/hr IV . Q8H [facility] Rx#:[id number] Intake, IV Titration 350 Amount Cefepime 2 gm In Sodium 100 Chloride 0.9% 100 ml @ 25 mls/hr IVPB Q12HR [facility] Rx #:[id number] Vancomycin 1,000 mg In 250 Sodium Chloride 0.9% 250 ml @ 125 mls/hr IVPB Q8H [facility] Rx#:[id number] Oral 1180 597 590 Output: Urine 460 Other: Voiding Method Toilet Toilet Toilet Urinal Urinal # Voids 1 - Exam In general patient is alert and oriented 3 in no apparent distress Head normocephalic and atraumatic Neck supple no JVD no goiter Lungs clear to auscultation bilaterally no wheezing or crackles Heart regular rate and rhythm S1-S2, no rub or gallop Abdomen is soft nontender nondistended positive bowel sounds no hepatosple nomegaly Extremities right lower leg wound with he was drainage from approximately quarter size wound erythema noted around, foul smell noted Neuro no gross focal neurological deficit - Labs CBC & Chem 7: 01/22/20 05:23 01/21/20 09:09 Labs: Abnormal Lab Results - Last 24 Hours (Table) 01/21/20 01/21/20 01/21/20 Range/Units 07:04 09:09 09:09 WBC 17.6 H (3.8-10.6) k/uL RBC 3.96 L (4.30-5.90) m/uL Hgb 9.1 L (13.0-17.5) gm/dL Hct 30.1 L (39.0-53.0) % MCV 76.0 L (80.0-100.0) fL MCH 23.0 L (25.0-35.0) pg MCHC 30.2 L (31.0-37.0) g/dL Plt Count 572 H (150-450) k/uL Neutrophils # 15.0 H (1.3-7.7) k/uL Sodium 130 L (137-145) mmol/L Creatinine 0.59 L (0.66-1.25) mg/dL Glucose 164 H (74-99) mg/dL POC Glucose (mg/dL) 106 H (75-99) mg/dL Calcium 7.8 L (8.4-10.2) mg/dL AST 103 H (17-59) U/L ALT 51 H (4-49) U/L Alkaline Phosphatase 191 H (38-126) U/L Total Protein 6.0 L (6.3-8.2) g/dL Albumin 2.8 L (3.5-5.0) g/dL 01/21/20 01/21/20 01/21/20 Range/Units 12:26 17:20 19:59 WBC (3.8-10.6) k/uL RBC (4.30-5.90) m/uL Hgb (13.0-17.5) gm/dL Hct (39.0-53.0) % MCV (80.0-100.0) fL MCH (25.0-35.0) pg MCHC (31.0-37.0) g/dL Plt Count (150-450) k/uL Neutrophils # (1.3-7.7) k/uL Sodium (137-145) mmol/L Creatinine (0.66-1.25) mg/dL Glucose (74-99) mg/dL POC Glucose (mg/dL) 193 H 132 H 115 H (75-99) mg/dL Calcium (8.4-10.2) mg/dL AST (17-59) U/L ALT (4-49) U/L Alkaline Phosphatase (38-126) U/L Total Protein (6.3-8.2) g/dL Albumin (3.5-5.0) g/dL Microbiology - Last 24 Hours (Table) 01/21/20 10:50 Gram Stain - Preliminary Ankle - Left Wound Culture - Preliminary 01/21/20 10:50 Anaerobic Culture - Preliminary Ankle - Left 01/19/20 12:42 Blood Culture - Preliminary Blood No Growth after 48 hours Assessment and Plan Assessment: 1. Cellulitis left lower extremity with sepsis. White blood cell count elevated at 17.7. Elevated heart rate. Lactic acid 2.1. Patient started on Zosyn and vancomycin. Repeat lactic acid 1.0. Blood cultures ordered. Dr. Moran per infectious disease has been consulted. 2. Elevated heart rate likely secondary to infection. EKG ordered. Cardiac monitoring ordered. Patient denies chest pain. 3. History of type 1 diabetes mellitus. A1c will be ordered. Sliding scale insulin ordered. Home dose of long-acting ordered. 4. History of GERD. 5. History of hyperlipidemia. Maintain on statin 6. History of seizures last seizure 6 months ago 7. Cough Will check chest x-ray and check Covid 19 testing 8. Nausea at this time will treat symptomatically possibly side effect of antibiotic Will monitor closely. DVT prophylaxis Lovenox. GI prophylaxis Pepcid Continue normal saline at 75 Zosyn and vancomycin for IV antibiotics Blood culture ordered Dr. Moran consulted for infectious disease
[2020-01-22 10:07] LABS: African American GFR (CKD) 119.7 (60.0-200.0); Albumin 2.8 g/dL (3.80-4.90); Albumin/Globulin Ratio 1.12 (1.60-3.17); Anion Gap 10.4 mmol/L (4.00-12.00); Calcium 7.6 mg/dL (8.7-10.3); Carbon Dioxide 23.6 mmol/L (21.6-31.8); Globulin 2.5 g/dL (1.6-3.3); Non-African American GFR(CKD) 103.3 (60.0-200.0); Potassium 3.9 mmol/L (3.5-5.5); Total Bilirubin 0.1 mg/dL (0.2-1.2); Total Protein 5.3 g/dL (6.2-8.2)
--- NOTE | 2020-01-22 10:12 | P.GSCN ---
History of Present Illness History of present illness: 59-year-old diabetic male, patient has been a admitted with chronic wound left lower extremity involving the posterior aspect of the ankle with exposed tendon. Each and has been coming to the wound clinic and has been admitted for further evaluation and debridement. Patient also has history of diabetes or vascular disease Medical history history of diabetes, history of for vascular disease, Neck examination neck is supple no bruit appreciated Chest clear first and second sound normal Abdomen soft nontender Vascular examination brachial radial femoral pulses are palpable dorsal pedis post tibial is not palpable patient is a wound on the left ankle 7 x 5 cm with exposed tendon and devitalized tissue the tendons are necrotic Plan is debridement of the wound and deep culture prognosis is guarded continue with IV antibiotic we'll follow with you use Santyl cream for the wound on daily dressing change Past Medical History Past Medical History: Cancer, Diabetes Mellitus, GERD/Reflux, Hyperlipidemia, Osteoarthritis (OA), Seizure Disorder Additional Past Medical History / Comment(s): Last seizure 6 months ago. 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 Diarrhea occ. 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 Past Anesthesia/Blood Transfusion Reactions: No Reported Reaction Past Psychological History: Depression Smoking Status: Never smoker Past Alcohol Use History: None Reported Past Drug Use History: None Reported - Past Family History Father Additional Family Medical History / Comment(s): AT AGE 57 Mother Family Medical History: Cancer Sister(s) Family Medical History: Diabetes Mellitus Medications and Allergies Home Medications Medication Instructions Recorded Confirmed Type Phenytoin Sodium Extended 200 mg PO BID 11/17/16 01/19/20 History [Dilantin] Omeprazole 20 mg PO DAILY 06/13/17 01/19/20 History Pioglitazone HCl [Actos] 15 mg PO DAILY 10/03/18 01/19/20 History Diphenox-Atrop 2.5-0.025 mg 1 tab PO BID 11/17/19 01/19/20 History [Lomotil] Pregabalin [Lyrica] 75 mg PO BID 11/17/19 01/19/20 History Rosuvastatin [Crestor] 10 mg PO HS 11/17/19 01/19/20 History Collagenase [Santyl] 1 applic TOPICAL DAILY 01/19/20 01/19/20 History Gentamicin 0.1% Cream 1 applic TOPICAL BID 01/19/20 01/19/20 History HYDROcodone/APAP 5-325MG [[place] 1 tab PO BID PRN 01/19/20 01/19/20 History 5-325] Insulin Glargine [Lantus] 35 unit SQ DAILY 01/19/20 01/19/20 History Insulin Glulisine [Apidra] See Protocol SQ AC-TID 01/19/20 01/19/20 History Meclizine [Antivert] 25 mg PO QID 01/19/20 01/19/20 History Mupirocin 2% Oint [Bactroban 2% 1 applic TOPICAL DAILY 01/19/20 01/19/20 History Oint] Triamcinolone 0.5% Cream [Kenalog 1 applic TOPICAL DAILY 01/19/20 01/19/20 History 0.5% Cream] Allergies Allergy/AdvReac Type Severity Reaction Status Date / Time No Known Allergies Allergy Verified 01/19/20 13:26 Surgical - Exam Vital Signs Temp Pulse Resp BP Pulse Ox 97.1 F L 106 H 18 142/70 100 01/19/20 11:47 01/19/20 11:47 01/19/20 11:47 01/19/20 11:47 01/19/20 11:47 Results - Labs 01/22/20 05:23 01/22/20 05:23 Abnormal Lab Results - Last 24 Hours (Table) 01/21/20 01/21/20 01/21/20 Range/Units 12:26 17:20 19:59 WBC (3.8-10.6) k/uL RBC (4.30-5.90) m/uL Hgb (13.0-17.5) gm/dL Hct (39.0-53.0) % MCV (80.0-100.0) fL MCH (25.0-35.0) pg MCHC (31.0-37.0) g/dL Plt Count (150-450) k/uL Neutrophils # (1.3-7.7) k/uL Lymphocytes # (1.0-4.8) k/uL Sodium (135-145) mmol/L Glucose (70-110) mg/dL POC Glucose (mg/dL) 193 H 132 H 115 H (75-99) mg/dL Calcium (8.7-10.3) mg/dL Total Bilirubin (0.2-1.2) mg/dL AST (14-35) U/L Alkaline Phosphatase (41-126) U/L Total Protein (6.2-8.2) g/dL Albumin (3.80-4.90) g/dL Albumin/Globulin Ratio (1.60-3.17) g/dL 01/22/20 01/22/20 01/22/20 Range/Units 05:23 05:23 06:37 WBC 11.4 H (3.8-10.6) k/uL RBC 3.41 L (4.30-5.90) m/uL Hgb 8.1 L (13.0-17.5) gm/dL Hct 26.6 L (39.0-53.0) % MCV 77.9 L (80.0-100.0) fL MCH 23.7 L (25.0-35.0) pg MCHC 30.4 L (31.0-37.0) g/dL Plt Count 476 H (150-450) k/uL Neutrophils # 9.8 H (1.3-7.7) k/uL Lymphocytes # 0.7 L (1.0-4.8) k/uL Sodium 133 L (135-145) mmol/L Glucose 150 H (70-110) mg/dL POC Glucose (mg/dL) 162 H (75-99) mg/dL Calcium 7.6 L (8.7-10.3) mg/dL Total Bilirubin 0.1 L (0.2-1.2) mg/dL AST 54 H (14-35) U/L Alkaline Phosphatase 161 H (41-126) U/L Total Protein 5.3 L (6.2-8.2) g/dL Albumin 2.80 L (3.80-4.90) g/dL Albumin/Globulin Ratio 1.12 L (1.60-3.17) g/dL Microbiology - Last 24 Hours (Table) 01/21/20 10:50 Gram Stain - Preliminary Ankle - Left Wound Culture - Preliminary 01/21/20 10:50 Anaerobic Culture - Preliminary Ankle - Left 01/19/20 12:42 Blood Culture - Preliminary Blood No Growth after 48 hours Diabetes panel 01/22/20 Range/Units 05:23 Sodium 133 L (135-145) mmol/L Potassium 3.9 (3.5-5.5) mmol/L Chloride 99 (96-109) mmol/L Carbon Dioxide 23.6 (21.6-31.8) mmol/L BUN 14.0 (9.0-27.0) mg/dL Creatinine 0.7 (0.6-1.5) mg/dL Glucose 150 H (70-110) mg/dL Calcium 7.6 L (8.7-10.3) mg/dL AST 54 H (14-35) U/L ALT 47 (10-49) U/L Alkaline Phosphatase 161 H (41-126) U/L Total Protein 5.3 L (6.2-8.2) g/dL Albumin 2.80 L (3.80-4.90) g/dL Calcium panel 01/22/20 Range/Units 05:23 Calcium 7.6 L (8.7-10.3) mg/dL Albumin 2.80 L (3.80-4.90) g/dL Pituitary panel 01/22/20 Range/Units 05:23 Sodium 133 L (135-145) mmol/L Potassium 3.9 (3.5-5.5) mmol/L Chloride 99 (96-109) mmol/L Carbon Dioxide 23.6 (21.6-31.8) mmol/L BUN 14.0 (9.0-27.0) mg/dL Creatinine 0.7 (0.6-1.5) mg/dL Glucose 150 H (70-110) mg/dL Calcium 7.6 L (8.7-10.3) mg/dL Adrenal panel 01/22/20 Range/Units 05:23 Sodium 133 L (135-145) mmol/L Potassium 3.9 (3.5-5.5) mmol/L Chloride 99 (96-109) mmol/L Carbon Dioxide 23.6 (21.6-31.8) mmol/L BUN 14.0 (9.0-27.0) mg/dL Creatinine 0.7 (0.6-1.5) mg/dL Glucose 150 H (70-110) mg/dL Calcium 7.6 L (8.7-10.3) mg/dL Total Bilirubin 0.1 L (0.2-1.2) mg/dL AST 54 H (14-35) U/L ALT 47 (10-49) U/L Alkaline Phosphatase 161 H (41-126) U/L Total Protein 5.3 L (6.2-8.2) g/dL Albumin 2.80 L (3.80-4.90) g/dL
--- NOTE | 2020-01-22 10:14 | P.PCN ---
Description of Procedure: Preop diagnosis infected wound left ankle posterior aspect measurement is 7 x 5 with exposed tendon and devitalized tissue Posterior same Procedure left foot was prepped and draped applied sterile manner 1% lidocaine for infected using sharp knife we excised that superficial tendon and also the devitalized tissue and all the devitalized tissue was excised. There was some bleeding which was controlled wound was copiously irrigated with saline central cream applied to the wound dressing applied patient tolerated the procedure well will plan is to change her dressing daily once Santyl cream prognosis is guarded we'll follow with you
[2020-01-22 12:25] LABS: Glucose,Whole Blood 264 mg/dL (75-99)
[2020-01-22] MEDS: COLLAGENASE 250 UNIT/GM OINTMENT 30 GM TUBE TOPICAL SCH (12:43)
[2020-01-22 16:52] LABS: Glucose,Whole Blood 60 mg/dL (75-99)
[2020-01-22 17:11] LABS: Glucose,Whole Blood 57 mg/dL (75-99)
[2020-01-22 17:31] LABS: Glucose,Whole Blood 133 mg/dL (75-99)
[2020-01-22 20:17] LABS: Glucose,Whole Blood 237 mg/dL (75-99)
[2020-01-22] MEDS: ATORVASTATIN 20 MG TAB PO SCH (21:56)
[2020-01-22] MEDS ORDERED: RX INFO: IV CONTRAST WAS GIVEN 1 EACH MISC MISCELLANE PRN (22:47)
[2020-01-23 02:52] LABS: Basophils # (A) 0.1 k/uL (0-0.2); Basophils % (A) 0 %; Eosinophils # (A) 0.1 k/uL (0-0.7); Eosinophils % (A) 1 %; HCT 26.5 % (39.0-53.0); HGB 7.9 gm/dL (13.0-17.5); Hypochromasia Moderate; Lymphocytes # (A) 1.2 k/uL (1.0-4.8); Lymphocytes % (A) 11 %; MCH 22.9 pg (25.0-35.0); MCHC 29.8 g/dL (31.0-37.0); MCV 76.8 fL (80.0-100.0); Mean Platelet Volume 6.3; Monocytes # (A) 0.7 k/uL (0-1.0); Monocytes % (A) 6 %; Neutrophils % (A) 80 %; Platelet Count 576 k/uL (150-450); RBC 3.45 m/uL (4.30-5.90); RDW 14.8 % (11.5-15.5); WBC 11.2 k/uL (3.8-10.6)
[2020-01-23] MEDS ORDERED: VANCOMYCIN TROUGH DUE 1 EACH MISC MISCELLANE ONE (03:00)
[2020-01-23] MEDS: VANCOMYCIN 1,000 MG in SODIUM CHLORIDE 0.9% 250 ML IVPB SCH ×3 (04:18→20:46)
[2020-01-23] MEDS: SODIUM CHLORIDE 0.9% 1,000 ML IV SCH ×3 (04:48→20:47)
--- NOTE | 2020-01-23 05:07 | PN ---
PROGRESS NOTE DATE OF SERVICE: 01/22/2020 REASON FOR FOLLOWUP: Left diabetic foot infection. INTERVAL HISTORY: The patient is currently afebrile. The patient was evaluated by Vascular Surgery this morning. The patient did have debridement of the wound with concern for possible extension to the calcaneus. The patient tolerated the procedure. The patient denies having any chest pain, no shortness of breath or cough. No abdominal pain, no diarrhea. PHYSICAL EXAMINATION: Blood pressure is 115/63 with a pulse of 117, temperature 98.7. He is 97% on 4 L nasal cannula. General description is a middle-aged male lying in bed in no distress. RESPIRATORY SYSTEM: Unlabored breathing, clear to auscultation anteriorly. HEART: S1, S2. Regular rate and rhythm. ABDOMEN: Soft, no tenderness. Left leg wound is currently dressed up. No obvious drainage on the dressing. LABS: Hemoglobin 8.1, white count 11.4, creatinine 0.7. Local wound cultures currently pending. Blood culture negative. DIAGNOSTIC IMPRESSION AND PLAN: Patient with chronic nonhealing wound to the left leg, status post debridement and concern for possible osteomyelitis. Will wait for the deep culture to finalized as well as vascular workup. Continue cefepime and vancomycin and monitor his clinical course closely. MMODL / IJN: [id number] /
[2020-01-23] MEDS: ACETAMINOPHEN TAB 325 MG TAB PO PRN (05:08)
[2020-01-23 07:16] LABS: Glucose,Whole Blood 216 mg/dL (75-99)
[2020-01-23] MEDS: INSULIN DETEMIR (LEVEMIR) 100 UNIT/ML SYR SQ SCH (08:36)
[2020-01-23] MEDS: INSULIN ASPART (NovoLOG) 100 UNIT/ML VIAL SQ SCH ×4 (08:37→20:47)
[2020-01-23] MEDS: CEFEPIME 2 GM in SODIUM CHLORIDE 0.9% 100 ML IVPB SCH ×2 (08:38→20:46)
[2020-01-23] MEDS: MECLIZINE 25 MG TAB PO SCH ×4 (08:41→20:45)
[2020-01-23] MEDS: FAMOTIDINE 20 MG TAB PO SCH (08:41)
[2020-01-23] MEDS: PIOGLITAZONE 15 MG TAB PO SCH (08:42)
[2020-01-23] MEDS: PREGABALIN 75 MG CAP PO SCH ×2 (08:42→20:45)
[2020-01-23] MEDS: metroNIDAZOLE 500 MG TAB PO SCH ×3 (08:42→20:45)
[2020-01-23] MEDS: DIPHENOX-ATROP 2.5-0.025 MG 1 EACH TAB PO SCH ×2 (08:42→20:45)
[2020-01-23] MEDS: PANTOPRAZOLE 40 MG TABLET PO SCH (08:43)
[2020-01-23] MEDS: PHENYTOIN SODIUM EXTENDED 100 MG CAP PO SCH ×2 (08:43→20:45)
[2020-01-23] MEDS: ENOXAPARIN 40 MG/0.4 ML SYRINGE SQ SCH (08:43)
[2020-01-23 09:49] LABS: African American GFR (CKD) 127.6 (60.0-200.0); Albumin 2.7 g/dL (3.80-4.90); Albumin/Globulin Ratio 1.17 (1.60-3.17); Anion Gap 5.1 mmol/L (4.00-12.00); BUN/Creat Ratio 18.33 Ratio (12.00-20.00); Calcium 7.4 mg/dL (8.7-10.3); Carbon Dioxide 27.9 mmol/L (21.6-31.8); Globulin 2.3 g/dL (1.6-3.3); Non-African American GFR(CKD) 110.1 (60.0-200.0); Potassium 3.7 mmol/L (3.5-5.5); Total Bilirubin 0.1 mg/dL (0.2-1.2)
[2020-01-23 11:21] LABS: Glucose,Whole Blood 180 mg/dL (75-99)
[2020-01-23] MEDS: COLLAGENASE 250 UNIT/GM OINTMENT 30 GM TUBE TOPICAL SCH (11:53)
[2020-01-23] MEDS: ONDANSETRON 4 MG/2 ML VIAL IVP PRN (11:59)
--- NOTE | 2020-01-23 12:22 | CT ---
CT angiogram left lower extremity HISTORY: Lower extremity wound Helical acquisition obtained through the pelvis and lower extremities following dynamic administratio n 100 cc Isovue-370 IV. Three-dimensional reconstructions performed on an alternate workstation. Auto mated exposure control for dose reduction. DLP 164.9 mGycm. No comparisons The distal abdominal aorta is patent, common iliac, internal and external iliac arteries, common femo ral, deep and superficial femoral arteries are patent. The left popliteal artery shows atheromatous change, trifurcation vessels are patent distally. The ramirez perficial femoral arteries show atheromatous change bilaterally. The right popliteal artery and trifurcation vessels are also patent distally, atheromatous changes ar e present within the trifurcation vessels bilaterally. Reconstruction show some questionable segmenta l areas of stenosis which is not as well seen on axial images There are anasarca changes, subcutaneous edema is diffuse. Degenerative disc changes are noted at the lower lumbar spine. The urinary bladder is distended. Some increased attenuation present within the mesenteric fat is noted. There may be some minimal ascites. IMPRESSION: Peripheral vascular occlusive disease as described.
--- NOTE | 2020-01-23 14:00 | P.PN ---
Progress Note - Text 59-year-old white male, patient has infected tendocalcaneus left ankle patient had a debridement done yesterday. Patient had a CT angiogram which will be reviewed today we have changed her dressing put Santyl cream continue with the local wound care using Santyl cream IV antibiotic by infectious disease
[2020-01-23 17:52] LABS: Glucose,Whole Blood 53 mg/dL (75-99)
[2020-01-23 17:52] LABS: Glucose,Whole Blood 47 mg/dL (75-99)
[2020-01-23 18:11] LABS: Glucose,Whole Blood 51 mg/dL (75-99)
[2020-01-23 18:34] LABS: Glucose,Whole Blood 90 mg/dL (75-99)
--- NOTE | 2020-01-23 19:14 | P.PN ---
Subjective Progress Note Date: 01/23/20 This is a 59-year-old male patient presented to the ER in the wound care center for concerns of infection to lower extremity wound. Patient has been chronically treated for his wounds in the wound care center but states that wound has become increasingly worse with the past few days denies any fevers sh akiness chills at home. Patient is a known diabetic type I. Additional medical history includes GERD, hyperlipidemia, osteoporosis, seizures. X-rays were completed showing soft tissue irregularity and edema could be on the basis of infectious etiology or cellulitis no osseous abnormality to suggest osteomyelitis. Patient's heart rate elevated upon admit. White blood cell also elevated at 17.7. Lactic acid 2.1. Patient has been admitted and started on Zosyn and vancomycin blood cultures ordered. Patient received [address] Moran per infectious disease have been consulted. At this time patient denies any chest pain or shortness breath. Patient denies nausea vomiting or diarrhea. Patient denies any urinary burning or frequency On 01/21/2020 patient was seen and examined on the medical floor he is alert and oriented 3 in no apparent distress , he is complaining of cough , he had episodes of elevated temperature up to 102 through the night he was also tachycardic with heart rate of 120 he is maintained on IV antibiotic cefepime and vancomycin for lower extremity cellulitis and sepsis, at this time will check chest x-ray and check Covid 19 chest to rule out other causes of fever and sepsis, otherwise patient denies any complaints there is no headache or dizzin ess no chest pain no shortness of breath no nausea or vomiting no abdominal pain no diarrhea no blood in the stools no burning with urination no frequency or urgency and no hematuria. On 01/22/2020 patient was seen and examined on the medical floor he is alert and oriented 3 he is complaining of nausea this morning otherwise he denies any complaints there is no fever or chills no headache or dizziness no chest pain no shortness of breath no cough vomiting no abdominal pain no diarrhea no blood in the stools no burning with urination no frequency or urgency and no hematuria. Patient is followed by infectious disease, consultation for vascular surgery was initiated for possible debridement of his lower extremity wound. On 01/23/2020 patient was seen and examined on the medical floor he is alert and oriented 3 in no distress he is complaining of bilateral lower extremity pain otherwise he denies any complaints there is no fever or chills no headache or dizziness no chest pain no shortness of breath no cough no nausea or vomiting no abdominal pain no diarrhea and no urinary symptoms, Dr. Guerrier vascular surgery was consulted for possible debridement of lower extremity wounds Objective - Vital Signs Vital signs: Vital Signs Temp 98.3 F 01/23/20 12:50 Pulse 101 H 01/23/20 12:50 Resp 20 01/23/20 12:50 BP 123/73 01/23/20 12:50 Pulse Ox 95 01/23/20 12:50 Intake & Output 01/22/20 01/23/20 01/23/20 18:59 06:59 18:59 Intake Total 1195 590 Output Total 1460 450 300 Balance -265 140 -300 Weight 45.359 kg Intake: IV 125 Sodium Chloride 0.9% 1, 125 000 ml @ 125 mls/hr IV . Q8H ERIN Rx#:[id number] Intake, IV Titration 350 Amount Cefepime 2 gm In Sodium 100 Chloride 0.9% 100 ml @ 25 mls/hr IVPB Q12HR ERIN Rx #:[id number] Vancomycin 1,000 mg In 250 Sodium Chloride 0.9% 250 ml @ 125 mls/hr IVPB Q8H ERIN Rx#:[id number] Oral 720 590 Output: Urine 1460 450 300 Other: Voiding Method Toilet Toilet Toilet Urinal Urinal Urinal # Voids 1 1 - Exam In general patient is alert and oriented 3 in no apparent distress Head normocephalic and atraumatic Neck supple no JVD no goiter Lungs clear to auscultation bilaterally no wheezing or crackles Heart regular rate and rhythm S1-S2, no rub or gallop Abdomen is soft nontender nondistended positive bowel sounds no hepatosplenomegaly Extremities right lower leg wound with he was drainage from approximately quarter size wound erythema noted around, foul smell noted Neuro no gross focal neurological deficit - Labs CBC & Chem 7: 01/23/20 02:31 01/23/20 02:31 Labs: Abnormal Lab Results - Last 24 Hours (Table) 01/22/20 01/22/20 01/22/20 Range/Units 16:50 17:09 17:23 WBC (3.8-10.6) k/uL RBC (4.30-5.90) m/uL Hgb (13.0-17.5) gm/dL Hct (39.0-53.0) % MCV (80.0-100.0) fL MCH (25.0-35.0) pg MCHC (31.0-37.0) g/dL Plt Count (150-450) k/uL Neutrophils # (1.3-7.7) k/uL Sodium (135-145) mmol/L Glucose (70-110) mg/dL POC Glucose (mg/dL) 60 L 57 L 133 H (75-99) mg/dL Calcium (8.7-10.3) mg/dL Total Bilirubin (0.2-1.2) mg/dL AST (14-35) U/L ALT (10-49) U/L Alkaline Phosphatase (41-126) U/L Total Protein (6.2-8.2) g/dL Albumin (3.80-4.90) g/dL Albumin/Globulin Ratio (1.60-3.17) g/dL 01/22/20 01/23/20 01/23/20 Range/Units 20:16 02:31 02:31 WBC 11.2 H (3.8-10.6) k/uL RBC 3.45 L (4.30-5.90) m/uL Hgb 7.9 L (13.0-17.5) gm/dL Hct 26.5 L (39.0-53.0) % MCV 76.8 L (80.0-100.0) fL MCH 22.9 L (25.0-35.0) pg MCHC 29.8 L (31.0-37.0) g/dL Plt Count 576 H (150-450) k/uL Neutrophils # 9.0 H (1.3-7.7) k/uL Sodium 130 L (135-145) mmol/L Glucose 163 H (70-110) mg/dL POC Glucose (mg/dL) 237 H (75-99) mg/dL Calcium 7.4 L (8.7-10.3) mg/dL Total Bilirubin 0.1 L (0.2-1.2) mg/dL AST 54 H (14-35) U/L ALT 61 H (10-49) U/L Alkaline Phosphatase 141 H (41-126) U/L Total Protein 5.0 L (6.2-8.2) g/dL Albumin 2.70 L (3.80-4.90) g/dL Albumin/Globulin Ratio 1.17 L (1.60-3.17) g/dL 01/23/20 01/23/20 Range/Units 07:13 11:20 WBC (3.8-10.6) k/uL RBC (4.30-5.90) m/uL Hgb (13.0-17.5) gm/dL Hct (39.0-53.0) % MCV (80.0-100.0) fL MCH (25.0-35.0) pg MCHC (31.0-37.0) g/dL Plt Count (150-450) k/uL Neutrophils # (1.3-7.7) k/uL Sodium (135-145) mmol/L Glucose (70-110) mg/dL POC Glucose (mg/dL) 216 H 180 H (75-99) mg/dL Calcium (8.7-10.3) mg/dL Total Bilirubin (0.2-1.2) mg/dL AST (14-35) U/L ALT (10-49) U/L Alkaline Phosphatase (41-126) U/L Total Protein (6.2-8.2) g/dL Albumin (3.80-4.90) g/dL Albumin/Globulin Ratio (1.60-3.17) g/dL Microbiology - Last 24 Hours (Table) 01/21/20 10:50 Gram Stain - Preliminary Ankle - Left Wound Culture - Preliminary Presumptive Staph aureus 01/22/20 10:00 Gram Stain - Preliminary Ankle - Left Wound Culture - Preliminary Group D Enterococcus 01/22/20 10:00 Gram Stain - Preliminary Ankle - Left Tissue Culture - Preliminary Group D Enterococcus 01/22/20 10:00 Anaerobic Culture - Preliminary Ankle - Left 01/19/20 12:42 Blood Culture - Preliminary Blood No Growth after 72 hours Assessment and Plan Assessment: 1. Cellulitis left lower extremity with sepsis. White blood cell count elevated at 17.7. Elevated heart rate. Lactic acid 2.1. Patient started on Zosyn and vancomycin. Repeat lactic acid 1.0. Blood cultures ordered. Dr. Moran per infectious disease has been consulted. 2. Elevated heart rate likely secondary to infection. EKG ordered. Cardiac monitoring ordered. Patient denies chest pain. 3. History of type 1 diabetes mellitus. A1c will be ordered. Sliding scale insulin ordered. Home dose of long-acting ordered. 4. History of GERD. 5. History of hyperlipidemia. Maintain on statin 6. History of seizures last seizure 6 months ago 7. Cough Will check chest x-ray and check Covid 19 testing 8. Nausea at this time will treat symptomatically possibly side effect of antibiotic Will monitor closely. DVT prophylaxis Lovenox. GI prophylaxis Pepcid Continue normal saline at 75 Zosyn and vancomycin for IV antibiotics Blood culture ordered Dr. Moran consulted for infectious disease
[2020-01-23 20:03] LABS: Glucose,Whole Blood 184 mg/dL (75-99)
[2020-01-23] MEDS: ATORVASTATIN 20 MG TAB PO SCH (20:45)
--- NOTE | 2020-01-23 22:41 | PN ---
PROGRESS NOTE DATE OF SERVICE: 01/23/2020 REASON FOR FOLLOWUP: Left diabetic foot infection. INTERVAL HISTORY: Patient is currently afebrile. He is breathing comfortably. Denies having any chest pain or cough. No abdominal pain. No worsening pain to the left heel area. PHYSICAL EXAMINATION: Blood pressure 116/68 with a pulse of 110, temperature 98. He is 95% on 4 L nasal cannula. General description is a middle-aged male lying in bed in no distress. Respiratory system: Unlabored breathing, clear to auscultation anteriorly. HEART: S1, S2. Regular rate and rhythm. Abdomen: Soft, no tenderness. Left leg is currently dressed up. No obvious drainage on the dressing. LABS: Hemoglobin 7.8, white count 11.2, BUN of 11, creatinine 0.6. Wound culture with group D Enterococcus and presumptive Staph aureus. DIAGNOSTIC IMPRESSION AND PLAN: Patient with left foot infection. Cultures are positive for group D Enterococcus Staph aureus. Patient is covered with vancomycin and cefepime, to continue adjusting antibiotic further based on the final culture report and monitor clinical course closely. MMODL / IJN: [id number] /
[2020-01-24 01:42] LABS: Glucose,Whole Blood 96 mg/dL (75-99)
[2020-01-24] MEDS: SODIUM CHLORIDE 0.9% 1,000 ML IV SCH ×3 (05:04→20:26)
[2020-01-24] MEDS: VANCOMYCIN 1,000 MG in SODIUM CHLORIDE 0.9% 250 ML IVPB SCH ×2 (05:05→15:40)
[2020-01-24 07:15] LABS: Glucose,Whole Blood 94 mg/dL (75-99)
[2020-01-24] MEDS: INSULIN ASPART (NovoLOG) 100 UNIT/ML VIAL SQ SCH ×4 (07:50→21:17)
[2020-01-24] MEDS: DIPHENOX-ATROP 2.5-0.025 MG 1 EACH TAB PO SCH ×2 (07:51→20:23)
[2020-01-24] MEDS: ONDANSETRON 4 MG/2 ML VIAL IVP PRN (07:51)
[2020-01-24] MEDS: PANTOPRAZOLE 40 MG TABLET PO SCH (07:52)
[2020-01-24] MEDS: MECLIZINE 25 MG TAB PO SCH ×4 (07:52→20:23)
[2020-01-24] MEDS: PHENYTOIN SODIUM EXTENDED 100 MG CAP PO SCH ×2 (07:52→20:23)
[2020-01-24] MEDS: PIOGLITAZONE 15 MG TAB PO SCH (07:52)
[2020-01-24] MEDS: metroNIDAZOLE 500 MG TAB PO SCH ×3 (07:52→20:23)
[2020-01-24] MEDS: PREGABALIN 75 MG CAP PO SCH ×2 (07:53→20:23)
[2020-01-24] MEDS: ENOXAPARIN 40 MG/0.4 ML SYRINGE SQ SCH (07:56)
[2020-01-24 08:28] LABS: Basophils # (A) 0.1 k/uL (0-0.2); Basophils % (A) 1 %; Eosinophils # (A) 0.2 k/uL (0-0.7); Eosinophils % (A) 2 %; HCT 31.3 % (39.0-53.0); Hypochromasia Moderate; Lymphocytes # (A) 0.9 k/uL (1.0-4.8); Lymphocytes % (A) 7 %; MCH 23.1 pg (25.0-35.0); MCHC 30.5 g/dL (31.0-37.0); MCV 75.9 fL (80.0-100.0); Mean Platelet Volume 6.5; Microcytosis Slight; Monocytes # (A) 0.7 k/uL (0-1.0); Monocytes % (A) 5 %; Neutrophils % (A) 85 %; Platelet Count 684 k/uL (150-450); RBC 4.12 m/uL (4.30-5.90); WBC 12.9 k/uL (3.8-10.6)
--- NOTE | 2020-01-24 08:40 | XR ---
EXAMINATION TYPE: XR chest 2V DATE OF EXAM: 01/24/2020 COMPARISON: 01/21/2020 TECHNIQUE: PA and lateral views submitted. HISTORY: Shortness of breath and cough FINDINGS: There are bilateral lower lobe infiltrate and small effusion. Heart size normal. No overt failure or pneumothorax. Mild hyperinflation correlate for COPD or asthma. IMPRESSION: 1. Bilateral lower lobe infiltrate and small effusion progressed from the prior exam.
[2020-01-24 09:26] LABS: HGB 9.5 gm/dL (13.0-17.5)
[2020-01-24] MEDS: COLLAGENASE 250 UNIT/GM OINTMENT 30 GM TUBE TOPICAL SCH (09:37)
[2020-01-24 10:03] LABS: African American GFR (CKD) 127.6 (60.0-200.0); Albumin 3.1 g/dL (3.80-4.90); Albumin/Globulin Ratio 1.19 (1.60-3.17); Anion Gap 7.4 mmol/L (4.00-12.00); BUN/Creat Ratio 8.33 Ratio (12.00-20.00); C Reactive Protein 16.1 mg/dL (0.0-0.8); Calcium 7.8 mg/dL (8.7-10.3); Carbon Dioxide 32.6 mmol/L (21.6-31.8); Globulin 2.6 g/dL (1.6-3.3); Non-African American GFR(CKD) 110.1 (60.0-200.0); Potassium 3.8 mmol/L (3.5-5.5); Total Bilirubin 0.2 mg/dL (0.3-1.2); Total Protein 5.7 g/dL (6.2-8.2)
[2020-01-24] MEDS: INSULIN DETEMIR (LEVEMIR) 100 UNIT/ML SYR SQ SCH (10:56)
[2020-01-24] MEDS: CEFEPIME 2 GM in SODIUM CHLORIDE 0.9% 100 ML IVPB SCH (10:56)
[2020-01-24 12:04] LABS: Glucose,Whole Blood 263 mg/dL (75-99)
[2020-01-24] MEDS: guaiFENesin-Coden 100-10MG/5ML 10 ML CUP PO PRN (12:47)
[2020-01-24] MEDS: AMPICILLIN-SULBACTAM 3 GM in SODIUM CHLORIDE 0.9% 100 ML IVPB SCH ×3 (15:16→22:53)
[2020-01-24 17:27] LABS: Glucose,Whole Blood 188 mg/dL (75-99)
--- NOTE | 2020-01-24 18:44 | P.PN ---
Subjective Progress Note Date: 01/24/20 This is a 59-year-old male patient presented to the ER in the wound care center for concerns of infection to lower extremity wound. Patient has been chronically treated for his wounds in the wound care center but states that wound has become increasingly worse with the past few days denies any fevers sh akiness chills at home. Patient is a known diabetic type I. Additional medical history includes GERD, hyperlipidemia, osteoporosis, seizures. X-rays were completed showing soft tissue irregularity and edema could be on the basis of infectious etiology or cellulitis no osseous abnormality to suggest osteomyelitis. Patient's heart rate elevated upon admit. White blood cell also elevated at 17.7. Lactic acid 2.1. Patient has been admitted and started on Zosyn and vancomycin blood cultures ordered. Patient received [address] Moran per infectious disease have been consulted. At this time patient denies any chest pain or shortness breath. Patient denies nausea vomiting or diarrhea. Patient denies any urinary burning or frequency On 01/21/2020 patient was seen and examined on the medical floor he is alert and oriented 3 in no apparent distress , he is complaining of cough , he had episodes of elevated temperature up to 102 through the night he was also tachycardic with heart rate of 120 he is maintained on IV antibiotic cefepime and vancomycin for lower extremity cellulitis and sepsis, at this time will check chest x-ray and check Covid 19 chest to rule out other causes of fever and sepsis, otherwise patient denies any complaints there is no headache or dizzin ess no chest pain no shortness of breath no nausea or vomiting no abdominal pain no diarrhea no blood in the stools no burning with urination no frequency or urgency and no hematuria. On 01/22/2020 patient was seen and examined on the medical floor he is alert and oriented 3 he is complaining of nausea this morning otherwise he denies any complaints there is no fever or chills no headache or dizziness no chest pain no shortness of breath no cough vomiting no abdominal pain no diarrhea no blood in the stools no burning with urination no frequency or urgency and no hematuria. Patient is followed by infectious disease, consultation for vascular surgery was initiated for possible debridement of his lower extremity wound. On 01/23/2020 patient was seen and examined on the medical floor he is alert and oriented 3 in no distress he is complaining of bilateral lower extremity pain otherwise he denies any complaints there is no fever or chills no headache or dizziness no chest pain no shortness of breath no cough no nausea or vomiting no abdominal pain no diarrhea and no urinary symptoms, Dr. Guerrier vascular surgery was consulted for possible debridement of lower extremity wounds On 01/24/2020 patient was seen and examined on the medical floor he is alert and oriented in no distress he is complaining of bilateral lower extremity pain otherwise he denies any complaints he is followed by vascular surgery and infectious disease he is maintained on IV antibiotics there is no fever or chills no headache or dizziness no chest pain no shortness of breath no cough no nausea or vomiting no abdominal pain no diarrhea and no urinary symptoms Objective - Vital Signs Vital signs: Vital Signs Temp 98.4 F 01/24/20 12:18 Pulse 119 H 01/24/20 12:18 Resp 16 01/24/20 16:00 BP 137/78 01/24/20 12:18 Pulse Ox 94 L 01/24/20 12:18 Intake & Output 01/23/20 01/24/20 01/24/20 18:59 06:59 18:59 Intake Total 3267 240 Output Total 500 650 Balance -500 2617 240 Intake: IV 1250 Sodium Chloride 0.9% 1, 1250 000 ml @ 125 mls/hr IV . Q8H ERIN Rx#:[id number] Intake, IV Titration 600 Amount Cefepime 2 gm In Sodium 100 Chloride 0.9% 100 ml @ 25 mls/hr IVPB Q12HR ERIN Rx #:[id number] Vancomycin 1,000 mg In 500 Sodium Chloride 0.9% 250 ml @ 125 mls/hr IVPB Q8H ERIN Rx#:[id number] Oral 1417 240 Output: Urine 500 650 Other: Voiding Method Toilet Toilet Toilet Urinal Urinal Urinal # Voids 2 # Bowel Movements 1 - Exam In general patient is alert and oriented 3 in no apparent distress Head normocephalic and atraumatic Neck supple no JVD no goiter Lungs clear to auscultation bilaterally no wheezing or crackles Heart regular rate and rhythm S1-S2, no rub or gallop Abdomen is soft nontender nondistended positive bowel sounds no hepatosplenomegaly Extremities right lower leg wound with he was drainage from approximately quarter size wound erythema noted around, foul smell noted Neuro no gross focal neurological deficit - Labs CBC & Chem 7: 01/24/20 07:04 01/24/20 07:04 Labs: Abnormal Lab Results - Last 24 Hours (Table) 01/23/20 01/23/20 01/23/20 Range/Units 17:45 17:47 18:10 WBC (3.8-10.6) k/uL RBC (4.30-5.90) m/uL Hgb (13.0-17.5) gm/dL Hct (39.0-53.0) % MCV (80.0-100.0) fL MCH (25.0-35.0) pg MCHC (31.0-37.0) g/dL Plt Count (150-450) k/uL Neutrophils # (1.3-7.7) k/uL Lymphocytes # (1.0-4.8) k/uL Sodium (135-145) mmol/L Chloride (96-109) mmol/L Carbon Dioxide (21.6-31.8) mmol/L BUN (9.0-27.0) mg/dL BUN/Creatinine Ratio (12.00-20.00) Ratio POC Glucose (mg/dL) 47 L 53 L 51 L (75-99) mg/dL Calcium (8.7-10.3) mg/dL Total Bilirubin (0.3-1.2) mg/dL AST (14-35) U/L ALT (10-49) U/L Alkaline Phosphatase (41-126) U/L C-Reactive Protein (0.0-0.8) mg/dL Total Protein (6.2-8.2) g/dL Albumin (3.80-4.90) g/dL Albumin/Globulin Ratio (1.60-3.17) g/dL Procalcitonin (0.02-0.09) ng/mL 01/23/20 01/24/20 01/24/20 Range/Units 20:03 07:04 07:04 WBC 12.9 H (3.8-10.6) k/uL RBC 4.12 L (4.30-5.90) m/uL Hgb 9.5 L D (13.0-17.5) gm/dL Hct 31.3 L (39.0-53.0) % MCV 75.9 L (80.0-100.0) fL MCH 23.1 L (25.0-35.0) pg MCHC 30.5 L (31.0-37.0) g/dL Plt Count 684 H (150-450) k/uL Neutrophils # 11.0 H (1.3-7.7) k/uL Lymphocytes # 0.9 L (1.0-4.8) k/uL Sodium 134 L (135-145) mmol/L Chloride 94 L (96-109) mmol/L Carbon Dioxide 32.6 H (21.6-31.8) mmol/L BUN 5.0 L (9.0-27.0) mg/dL BUN/Creatinine Ratio 8.33 L (12.00-20.00) Ratio POC Glucose (mg/dL) 184 H (75-99) mg/dL Calcium 7.8 L (8.7-10.3) mg/dL Total Bilirubin 0.2 L (0.3-1.2) mg/dL AST 109 H (14-35) U/L ALT 93 H (10-49) U/L Alkaline Phosphatase 148 H (41-126) U/L C-Reactive Protein 16.1 H (0.0-0.8) mg/dL Total Protein 5.7 L (6.2-8.2) g/dL Albumin 3.10 L (3.80-4.90) g/dL Albumin/Globulin Ratio 1.19 L (1.60-3.17) g/dL Procalcitonin (0.02-0.09) ng/mL 01/24/20 01/24/20 01/24/20 Range/Units 07:04 12:02 17:25 WBC (3.8-10.6) k/uL RBC (4.30-5.90) m/uL Hgb (13.0-17.5) gm/dL Hct (39.0-53.0) % MCV (80.0-100.0) fL MCH (25.0-35.0) pg MCHC (31.0-37.0) g/dL Plt Count (150-450) k/uL Neutrophils # (1.3-7.7) k/uL Lymphocytes # (1.0-4.8) k/uL Sodium (135-145) mmol/L Chloride (96-109) mmol/L Carbon Dioxide (21.6-31.8) mmol/L BUN (9.0-27.0) mg/dL BUN/Creatinine Ratio (12.00-20.00) Ratio POC Glucose (mg/dL) 263 H 188 H (75-99) mg/dL Calcium (8.7-10.3) mg/dL Total Bilirubin (0.3-1.2) mg/dL AST (14-35) U/L ALT (10-49) U/L Alkaline Phosphatase (41-126) U/L C-Reactive Protein (0.0-0.8) mg/dL Total Protein (6.2-8.2) g/dL Albumin (3.80-4.90) g/dL Albumin/Globulin Ratio (1.60-3.17) g/dL Procalcitonin 0.21 H (0.02-0.09) ng/mL Microbiology - Last 24 Hours (Table) 01/19/20 12:42 Blood Culture - Preliminary Blood No Growth after 120 hours 01/22/20 10:00 Gram Stain - Preliminary Ankle - Left Wound Culture - Preliminary Enterococcus faecalis 01/22/20 10:00 Gram Stain - Preliminary Ankle - Left Tissue Culture - Preliminary Enterococcus faecalis Non Hemolytic Strep 01/21/20 10:50 Gram Stain - Final Ankle - Left Wound Culture - Final Staphylococcus aureus 01/21/20 10:50 Anaerobic Culture - Preliminary Ankle - Left Assessment and Plan Assessment: 1. Cellulitis left lower extremity with sepsis. White blood cell count elevated at 17.7. Elevated heart rate. Lactic acid 2.1. Patient started on Zosyn and vancomycin. Repeat lactic acid 1.0. Blood cultures ordered. Dr. Moran per infectious disease has been consulted. 2. Elevated heart rate likely secondary to infection. EKG ordered. Cardiac monitoring ordered. Patient denies chest pain. 3. History of type 1 diabetes mellitus. A1c will be ordered. Sliding scale insulin ordered. Home dose of long-acting ordered. 4. History of GERD. 5. History of hyperlipidemia. Maintain on statin 6. History of seizures last seizure 6 months ago 7. Cough Will check chest x-ray and check Covid 19 testing 8. Nausea at this time will treat symptomatically possibly side effect of antibiotic Will monitor closely. DVT prophylaxis Lovenox. GI prophylaxis Pepcid Continue normal saline at 75 Zosyn and vancomycin for IV antibiotics Blood culture ordered Dr. Moran consulted for infectious disease
[2020-01-24] MEDS: ATORVASTATIN 20 MG TAB PO SCH (20:22)
[2020-01-24 21:11] LABS: Glucose,Whole Blood 153 mg/dL (75-99)
[2020-01-24] MEDS: ACETAMINOPHEN TAB 325 MG TAB PO PRN (21:17)
--- NOTE | 2020-01-25 00:36 | PN ---
PROGRESS NOTE DATE OF SERVICE: 01/24/2020 REASON FOR FOLLOWUP: Left lower extremity diabetic foot infection. INTERVAL HISTORY: The patient is currently afebrile. The patient is breathing comfortably. Pain or discomfort to the left leg wound area is currently controlled. No chest pain. No cough. No abdominal pain or diarrhea. PHYSICAL EXAMINATION: Blood pressure is 120/74 with a pulse of 108, temperature 98.4. He is 97% on 5 L nasal cannula. General description is a middle-aged male up in the chair in no distress. Left leg wound is currently dressed up. No obvious drainage on the dressing. LABS: Hemoglobin 9.5, white count 12.9, BUN of 5, creatinine 0.6. Local culture with MSSA, Enterococcus, nonhemolytic strep. Blood culture has been negative. DIAGNOSTIC IMPRESSION AND PLAN: Patient with left diabetic foot wound and cellulitis with underlying peripheral arterial disease. Vascular Surgery did a local debridement with multiple pathogen. The patient is currently covered with Unasyn. Plan PICC line for outpatient IV antibiotic therapy. Continue supportive care. MMODL / IJN: [id number] /
[2020-01-25] MEDS: SODIUM CHLORIDE 0.9% 1,000 ML IV SCH ×3 (04:18→17:55)
[2020-01-25] MEDS: AMPICILLIN-SULBACTAM 3 GM in SODIUM CHLORIDE 0.9% 100 ML IVPB SCH ×4 (04:54→23:23)
[2020-01-25 07:15] LABS: Glucose,Whole Blood 185 mg/dL (75-99)
--- NOTE | 2020-01-25 08:24 | P.PN ---
Progress Note - Text 59-year-old white male, patient came with infected tendocalcaneus wound left leg patient had a extensive debridement and local wound care. Patient is on IV antibiotic and infectious disease today we've changed the dressing continue with Santyl cream dressing should be changed daily if patient goes home I will see him in the wound clinic on Thursday
[2020-01-25] MEDS: metroNIDAZOLE 500 MG TAB PO SCH ×3 (08:38→21:15)
[2020-01-25] MEDS: DIPHENOX-ATROP 2.5-0.025 MG 1 EACH TAB PO SCH ×2 (08:38→21:15)
[2020-01-25] MEDS: PREGABALIN 75 MG CAP PO SCH ×2 (08:38→21:15)
[2020-01-25] MEDS: PIOGLITAZONE 15 MG TAB PO SCH (08:39)
[2020-01-25] MEDS: PANTOPRAZOLE 40 MG TABLET PO SCH (08:39)
[2020-01-25] MEDS: MECLIZINE 25 MG TAB PO SCH ×4 (08:39→21:15)
[2020-01-25] MEDS: PHENYTOIN SODIUM EXTENDED 100 MG CAP PO SCH ×2 (08:40→21:15)
[2020-01-25] MEDS: INSULIN ASPART (NovoLOG) 100 UNIT/ML VIAL SQ SCH ×4 (08:41→21:16)
[2020-01-25] MEDS: COLLAGENASE 250 UNIT/GM OINTMENT 30 GM TUBE TOPICAL SCH (08:41)
[2020-01-25] MEDS: ENOXAPARIN 40 MG/0.4 ML SYRINGE SQ SCH (08:41)
[2020-01-25] MEDS: INSULIN DETEMIR (LEVEMIR) 100 UNIT/ML SYR SQ SCH (08:41)
[2020-01-25 09:25] LABS: African American GFR (CKD) 127.6 (60.0-200.0); Non-African American GFR(CKD) 110.1 (60.0-200.0)
[2020-01-25 11:52] LABS: Glucose,Whole Blood 219 mg/dL (75-99)
--- NOTE | 2020-01-25 14:10 | PN ---
PROGRESS NOTE DATE OF SERVICE: 01/25/2020 REASON FOR FOLLOWUP: Left diabetic foot infection with concern for underlying osteomyelitis, acute. INTERVAL HISTORY: The patient is currently afebrile. The patient is feeling better. Breathing comfortably. Patient denies having any chest pain, no cough. No nausea, no vomiting, no abdominal pain, no worsening pain to the left leg wound area. PHYSICAL EXAMINATION: Blood pressure is 112/70 with a pulse of 64, temperature 98.4. He is 98% on 2 L. General description is a middle-aged male, lying in bed in no distress. RESPIRATORY SYSTEM: Unlabored breathing, clear to auscultation anteriorly. HEART: S1, S2. Regular rate and rhythm. ABDOMEN: Soft, no tenderness. Left leg wound is currently dressed. Discussed to with Dr. Guerrier who just changed the dressing, mentioned overall wound is healing with involvement of the calcaneum as well as the tendon. LABS: Creatinine 0.62. Local wound culture with Enterococcus faecalis, strep and MSSA. DIAGNOSTIC IMPRESSION AND PLAN: Patient with left diabetic foot infection, extensor with concern for underlying involvement of the calcaneus/acute osteomyelitis. He is currently on Unasyn 3 g q.6 hours. Plan for Unasyn 3 g q.6 hours for 6 weeks. If the patient goes to longterm for outpatient, we may consider Invanz 1 g daily for the same duration along with weekly monitoring of CBC, BMP and sedimentation rate. This was discussed in detail with the casey saw operator working on placement. MMODL / IJN: [id number] /
[2020-01-25] MEDS: guaiFENesin-Coden 100-10MG/5ML 10 ML CUP PO PRN (15:32)
--- NOTE | 2020-01-25 15:32 | IR ---
EXAMINATION TYPE: IR cvc insert >=5 years DATE OF EXAM: 01/25/2020 COMPARISON: NONE HISTORY: Infection, needs long-term intravenous access for antibiotics FINDINGS: Maximal barrier technique was utilized. Hand hygiene obtained with soap and water and alco hol-based hand rub. The skin overlying the left basilic vein was localized with ultrasound and noted to be compressible and patent by ultrasound. An ultrasound [facility] Sterile technique utilized with the ultrasound machine. The skin overlying was prepped an d draped and Lidocaine used for local anesthesia. A skin aurelia was made with a scalpel. Access was g ained to the vein under direct ultrasound guidance with a 21-gauge needle and a 0.018 inch wire was a dvanced. Access site was dilated with a peel-away sheath and the catheter tailored to length. Christianne ter advanced centrally and a post procedure chest x-ray verified placement with the tip in the right atrium. Catheter was fixed to the skin with suture and a sterile dressing placed. Hemostasis achiev ed and the catheter was aspirated and flushed with sterile saline. The patient remained in stable co ndition. IMPRESSION: STATUS POST ULTRASOUND GUIDED PICC LINE PLACEMENT, READY FOR USE. THIS PROCEDURE WAS PER FORMED BY THE UNDERSIGNED.
[2020-01-25 17:15] LABS: Glucose,Whole Blood 182 mg/dL (75-99)
[2020-01-25 20:21] LABS: Glucose,Whole Blood 227 mg/dL (75-99)
[2020-01-25] MEDS: ATORVASTATIN 20 MG TAB PO SCH (21:15)
[2020-01-26] MEDS: HYDROcodone/APAP 5-325MG 1 EACH TAB PO PRN ×2 (01:12→21:44)
[2020-01-26] MEDS: guaiFENesin-Coden 100-10MG/5ML 10 ML CUP PO PRN ×3 (01:12→21:51)
[2020-01-26] MEDS: SODIUM CHLORIDE 0.9% 1,000 ML IV SCH ×3 (04:32→16:47)
[2020-01-26] MEDS: AMPICILLIN-SULBACTAM 3 GM in SODIUM CHLORIDE 0.9% 100 ML IVPB SCH ×3 (05:52→17:16)
[2020-01-26 07:21] LABS: Glucose,Whole Blood 240 mg/dL (75-99)
[2020-01-26] MEDS: INSULIN ASPART (NovoLOG) 100 UNIT/ML VIAL SQ SCH ×4 (08:22→21:43)
[2020-01-26] MEDS: INSULIN DETEMIR (LEVEMIR) 100 UNIT/ML SYR SQ SCH (08:22)
[2020-01-26] MEDS: PREGABALIN 75 MG CAP PO SCH ×2 (08:23→21:45)
[2020-01-26] MEDS: PANTOPRAZOLE 40 MG TABLET PO SCH (08:23)
[2020-01-26] MEDS: metroNIDAZOLE 500 MG TAB PO SCH ×3 (08:23→21:45)
[2020-01-26] MEDS: DIPHENOX-ATROP 2.5-0.025 MG 1 EACH TAB PO SCH ×2 (08:23→21:45)
[2020-01-26] MEDS: ENOXAPARIN 40 MG/0.4 ML SYRINGE SQ SCH (08:23)
[2020-01-26] MEDS: MECLIZINE 25 MG TAB PO SCH ×4 (08:23→21:45)
[2020-01-26] MEDS: PIOGLITAZONE 15 MG TAB PO SCH (08:24)
[2020-01-26] MEDS: PHENYTOIN SODIUM EXTENDED 100 MG CAP PO SCH ×2 (08:24→21:46)
[2020-01-26 08:25] LABS: Anisocytosis Slight; Basophils % (A) 0 %; Eosinophils # (A) 0.2 k/uL (0-0.7); Eosinophils % (A) 2 %; HCT 26.1 % (39.0-53.0); Hypochromasia Moderate; Lymphocytes # (A) 0.9 k/uL (1.0-4.8); Lymphocytes % (A) 8 %; MCH 23.1 pg (25.0-35.0); MCHC 30.1 g/dL (31.0-37.0); MCV 76.6 fL (80.0-100.0); Mean Platelet Volume 6.1; Microcytosis Slight; Monocytes # (A) 0.5 k/uL (0-1.0); Monocytes % (A) 4 %; Neutrophils # (A) 10.4 k/uL (1.3-7.7); Neutrophils % (A) 85 %; Platelet Count 557 k/uL (150-450); RDW 16.2 % (11.5-15.5); WBC 12.2 k/uL (3.8-10.6)
[2020-01-26] MEDS: COLLAGENASE 250 UNIT/GM OINTMENT 30 GM TUBE TOPICAL SCH (08:28)
[2020-01-26 08:34] LABS: HGB 7.9 gm/dL (13.0-17.5)
--- NOTE | 2020-01-26 09:35 | XR ---
EXAMINATION TYPE: XR chest 1V confirm line [facility] DATE OF EXAM: 01/25/2020 COMPARISON: Prior chest x-ray dated 01/24/2020 HISTORY: Status post PICC line placement TECHNIQUE: Single frontal view of the chest is obtained. FINDINGS: Interval placement of a left upper extremity PICC line, distal tip is overlying the right atrium. Bibasilar increased attenuation is noted. There is no evident pneumothorax. Heart is likely s table. IMPRESSION: Basilar pneumonia versus edema, possible associated atelectasis, effusions. No evident c omplication status post left sided PICC line placement.
--- NOTE | 2020-01-26 10:33 | P.PN ---
Subjective Progress Note Date: 01/25/20 This is a 59-year-old male patient presented to the ER in the wound care center for concerns of infection to lower extremity wound. Patient has been chronically treated for his wounds in the wound care center but states that wound has become increasingly worse with the past few days denies any fevers sh akiness chills at home. Patient is a known diabetic type I. Additional medical history includes GERD, hyperlipidemia, osteoporosis, seizures. X-rays were completed showing soft tissue irregularity and edema could be on the basis of infectious etiology or cellulitis no osseous abnormality to suggest osteomyelitis. Patient's heart rate elevated upon admit. White blood cell also elevated at 17.7. Lactic acid 2.1. Patient has been admitted and started on Zosyn and vancomycin blood cultures ordered. Patient received [address] Moran per infectious disease have been consulted. At this time patient denies any chest pain or shortness breath. Patient denies nausea vomiting or diarrhea. Patient denies any urinary burning or frequency On 01/21/2020 patient was seen and examined on the medical floor he is alert and oriented 3 in no apparent distress , he is complaining of cough , he had episodes of elevated temperature up to 102 through the night he was also tachycardic with heart rate of 120 he is maintained on IV antibiotic cefepime and vancomycin for lower extremity cellulitis and sepsis, at this time will check chest x-ray and check Covid 19 chest to rule out other causes of fever and sepsis, otherwise patient denies any complaints there is no headache or dizzin ess no chest pain no shortness of breath no nausea or vomiting no abdominal pain no diarrhea no blood in the stools no burning with urination no frequency or urgency and no hematuria. On 01/22/2020 patient was seen and examined on the medical floor he is alert and oriented 3 he is complaining of nausea this morning otherwise he denies any complaints there is no fever or chills no headache or dizziness no chest pain no shortness of breath no cough vomiting no abdominal pain no diarrhea no blood in the stools no burning with urination no frequency or urgency and no hematuria. Patient is followed by infectious disease, consultation for vascular surgery was initiated for possible debridement of his lower extremity wound. On 01/23/2020 patient was seen and examined on the medical floor he is alert and oriented 3 in no distress he is complaining of bilateral lower extremity pain otherwise he denies any complaints there is no fever or chills no headache or dizziness no chest pain no shortness of breath no cough no nausea or vomiting no abdominal pain no diarrhea and no urinary symptoms, Dr. Guerrier vascular surgery was consulted for possible debridement of lower extremity wounds On 01/24/2020 patient was seen and examined on the medical floor he is alert and oriented in no distress he is complaining of bilateral lower extremity pain otherwise he denies any complaints he is followed by vascular surgery and infectious disease he is maintained on IV antibiotics there is no fever or chills no headache or dizziness no chest pain no shortness of breath no cough no nausea or vomiting no abdominal pain no diarrhea and no urinary symptoms. On 01/25/2020 patient was seen and examined on the medical floor she is alert and oriented 3 in no distress she is still complaining of abdominal pain she underwent paracentesis today otherwise she denies any complaints there is no fever or chills no headache or dizziness no chest pain no shortness of breath no cough no nausea or vomiting no diarrhea no blood in the stools no burning with urination no frequency or urgency and no hematuria Objective - Vital Signs Vital signs: Vital Signs Temp 98.4 F 01/25/20 12:40 Pulse 64 01/25/20 12:40 Resp 16 01/25/20 12:40 BP 112/70 01/25/20 12:40 Pulse Ox 98 01/25/20 12:40 Intake & Output 01/24/20 01/25/20 01/25/20 18:59 06:59 18:59 Intake Total 240 Output Total 1 Balance 240 -1 Weight 45.359 kg Intake: Oral 240 Output: Urine/Stool Mix 1 Other: Voiding Method Toilet Toilet Toilet Urinal Urinal Urinal # Voids 2 2 4 # Bowel Movements 1 - Exam In general patient is alert and oriented 3 in no apparent distress Head normocephalic and atraumatic Neck supple no JVD no goiter Lungs clear to auscultation bilaterally no wheezing or crackles Heart regular rate and rhythm S1-S2, no rub or gallop Abdomen is soft nontender nondistended positive bowel sounds no hepatosplenomegaly Extremities right lower leg wound with he was drainage from approximately quarter size wound erythema noted around, foul smell noted Neuro no gross focal neurological deficit - Labs CBC & Chem 7: 01/26/20 07:49 01/25/20 05:30 Labs: Abnormal Lab Results - Last 24 Hours (Table) 01/24/20 01/24/20 01/25/20 Range/Units 17:25 21:10 07:13 POC Glucose (mg/dL) 188 H 153 H 185 H (75-99) mg/dL 01/25/20 Range/Units 11:50 POC Glucose (mg/dL) 219 H (75-99) mg/dL Microbiology - Last 24 Hours (Table) 01/19/20 12:42 Blood Culture - Final Blood No Growth after 144 hours 01/22/20 10:00 Anaerobic Culture - Final Ankle - Left Anaerobic Gm Negative Bacilli Anaerobic Gram Positive Cocci 01/21/20 10:50 Anaerobic Culture - Final Ankle - Left Anaerobic Gram Positive Cocci Anaerobic Gram Positive Cocci#2 01/22/20 10:00 Gram Stain - Final Ankle - Left Wound Culture - Final Enterococcus faecalis Non Hemolytic Strep 01/22/20 10:00 Gram Stain - Preliminary Ankle - Left Tissue Culture - Preliminary Enterococcus faecalis Non Hemolytic Strep Assessment and Plan Assessment: 1. Cellulitis left lower extremity with sepsis. White blood cell count elevated at 17.7. Elevated heart rate. Lactic acid 2.1. Patient started on Zosyn and vancomycin. Repeat lactic acid 1.0. Blood cultures ordered. Dr. Moran per infectious disease has been consulted. 2. Elevated heart rate likely secondary to infection. EKG ordered. Cardiac monitoring ordered. Patient denies chest pain. 3. History of type 1 diabetes mellitus. A1c will be ordered. Sliding scale insulin ordered. Home dose of long-acting ordered. 4. History of GERD. 5. History of hyperlipidemia. Maintain on statin 6. History of seizures last seizure 6 months ago 7. Cough Will check chest x-ray and check Covid 19 testing 8. Nausea at this time will treat symptomatically possibly side effect of antibiotic Will monitor closely. DVT prophylaxis Lovenox. GI prophylaxis Pepcid Continue normal saline at 75 Zosyn and vancomycin for IV antibiotics Blood culture ordered Dr. Moran consulted for infectious disease
[2020-01-26 11:04] LABS: African American GFR (CKD) 127.6 (60.0-200.0); Albumin 2.7 g/dL (3.80-4.90); Albumin/Globulin Ratio 1.17 (1.60-3.17); Anion Gap 7.8 mmol/L (4.00-12.00); BUN/Creat Ratio 13.33 Ratio (12.00-20.00); Calcium 7.7 mg/dL (8.7-10.3); Carbon Dioxide 31.2 mmol/L (21.6-31.8); Globulin 2.3 g/dL (1.6-3.3); Non-African American GFR(CKD) 110.1 (60.0-200.0); Potassium 4.2 mmol/L (3.5-5.5); Total Bilirubin 0.1 mg/dL (0.3-1.2)
[2020-01-26 11:17] LABS: Glucose,Whole Blood 251 mg/dL (75-99)
[2020-01-26 17:06] LABS: Glucose,Whole Blood 257 mg/dL (75-99)
--- NOTE | 2020-01-26 17:36 | P.PN ---
Progress Note - Text 59-year-old gentleman, patient has infected tendocalcaneus had a extensive debridement we will treating with Santyl cream and local wound care and IV antibiotic patient is going to group home Avery advised to come to Thursday to the wound clinic we'll continue with Santyl cream and IV antibiotic thank you
--- NOTE | 2020-01-26 18:00 | P.PN ---
Subjective Progress Note Date: 01/26/20 This is a 59-year-old male patient presented to the ER in the wound care center for concerns of infection to lower extremity wound. Patient has been chronically treated for his wounds in the wound care center but states that wound has become increasingly worse with the past few days denies any fevers sh akiness chills at home. Patient is a known diabetic type I. Additional medical history includes GERD, hyperlipidemia, osteoporosis, seizures. X-rays were completed showing soft tissue irregularity and edema could be on the basis of infectious etiology or cellulitis no osseous abnormality to suggest osteomyelitis. Patient's heart rate elevated upon admit. White blood cell also elevated at 17.7. Lactic acid 2.1. Patient has been admitted and started on Zosyn and vancomycin blood cultures ordered. Patient received [address] Moran per infectious disease have been consulted. At this time patient denies any chest pain or shortness breath. Patient denies nausea vomiting or diarrhea. Patient denies any urinary burning or frequency On 01/21/2020 patient was seen and examined on the medical floor he is alert and oriented 3 in no apparent distress , he is complaining of cough , he had episodes of elevated temperature up to 102 through the night he was also tachycardic with heart rate of 120 he is maintained on IV antibiotic cefepime and vancomycin for lower extremity cellulitis and sepsis, at this time will check chest x-ray and check Covid 19 chest to rule out other causes of fever and sepsis, otherwise patient denies any complaints there is no headache or dizzin ess no chest pain no shortness of breath no nausea or vomiting no abdominal pain no diarrhea no blood in the stools no burning with urination no frequency or urgency and no hematuria. On 01/22/2020 patient was seen and examined on the medical floor he is alert and oriented 3 he is complaining of nausea this morning otherwise he denies any complaints there is no fever or chills no headache or dizziness no chest pain no shortness of breath no cough vomiting no abdominal pain no diarrhea no blood in the stools no burning with urination no frequency or urgency and no hematuria. Patient is followed by infectious disease, consultation for vascular surgery was initiated for possible debridement of his lower extremity wound. On 01/23/2020 patient was seen and examined on the medical floor he is alert and oriented 3 in no distress he is complaining of bilateral lower extremity pain otherwise he denies any complaints there is no fever or chills no headache or dizziness no chest pain no shortness of breath no cough no nausea or vomiting no abdominal pain no diarrhea and no urinary symptoms, Dr. Guerrier vascular surgery was consulted for possible debridement of lower extremity wounds On 01/24/2020 patient was seen and examined on the medical floor he is alert and oriented in no distress he is complaining of bilateral lower extremity pain otherwise he denies any complaints he is followed by vascular surgery and infectious disease he is maintained on IV antibiotics there is no fever or chills no headache or dizziness no chest pain no shortness of breath no cough no nausea or vomiting no abdominal pain no diarrhea and no urinary symptoms. On 01/25/2020 patient was seen and examined on the medical floor he is alert and oriented 3 in no distress there is no fever or chills no headache or dizziness no chest pain no shortness of breath no cough no nausea or vomiting no abdominal pain no diarrhea and no urinary symptoms. He is still complaining of bilateral lower extremity pain. We are awaiting authorization for [facility] placement for continued IV antibiotic and rehabilitation. On 01/26/2020 patient was seen and examined on the medical floor, he is alert and oriented 3 in no apparent distress there is no fever or chills no headache or dizziness no chest pain no shortness of breath no cough no nausea or vomiting no abdominal pain no diarrhea and no urinary symptoms or extremity is better controlled today, at this time we are still awaiting prior authorization from [facility] for rehabilitation and continued IV antibiotics Objective - Vital Signs Vital signs: Vital Signs Temp 98.1 F 01/26/20 12:08 Pulse 101 H 01/26/20 12:08 Resp 16 01/26/20 12:08 BP 133/73 01/26/20 12:08 Pulse Ox 98 01/26/20 12:08 Intake & Output 01/25/20 01/26/20 01/26/20 18:59 06:59 18:59 Intake Total 450 Output Total 650 Balance -200 Weight 45.359 kg Intake: Intake, IV Titration 100 Amount Ampicillin-Sulbactam 3 gm 100 In Sodium Chloride 0.9% 100 ml @ 200 mls/hr IVPB Q6HR [facility] Rx#:[id number] Oral 350 Output: Urine 650 Other: Voiding Method Toilet Toilet Toilet Urinal Urinal Urinal # Voids 4 1 - Exam In general patient is alert and oriented 3 in no apparent distress Head normocephalic and atraumatic Neck supple no JVD no goiter Lungs clear to auscultation bilaterally no wheezing or crackles Heart regular rate and rhythm S1-S2, no rub or gallop Abdomen is soft nontender nondistended positive bowel sounds no hepatosplenomegaly Extremities right lower leg wound with he was drainage from approximately quarter size wound erythema noted around, foul smell noted Neuro no gross focal neurological deficit - Labs CBC & Chem 7: 01/26/20 07:49 01/26/20 07:49 Labs: Abnormal Lab Results - Last 24 Hours (Table) 01/25/20 01/25/20 01/26/20 Range/Units 17:14 20:16 07:20 WBC (3.8-10.6) k/uL RBC (4.30-5.90) m/uL Hgb (13.0-17.5) gm/dL Hct (39.0-53.0) % MCV (80.0-100.0) fL MCH (25.0-35.0) pg MCHC (31.0-37.0) g/dL RDW (11.5-15.5) % Plt Count (150-450) k/uL Neutrophils # (1.3-7.7) k/uL Lymphocytes # (1.0-4.8) k/uL BUN (9.0-27.0) mg/dL Glucose (70-110) mg/dL POC Glucose (mg/dL) 182 H 227 H 240 H (75-99) mg/dL Calcium (8.7-10.3) mg/dL Total Bilirubin (0.3-1.2) mg/dL ALT (10-49) U/L Alkaline Phosphatase (41-126) U/L Total Protein (6.2-8.2) g/dL Albumin (3.80-4.90) g/dL Albumin/Globulin Ratio (1.60-3.17) g/dL 01/26/20 01/26/20 01/26/20 Range/Units 07:49 07:49 11:14 WBC 12.2 H (3.8-10.6) k/uL RBC 3.40 L (4.30-5.90) m/uL Hgb 7.9 L D (13.0-17.5) gm/dL Hct 26.1 L (39.0-53.0) % MCV 76.6 L (80.0-100.0) fL MCH 23.1 L (25.0-35.0) pg MCHC 30.1 L (31.0-37.0) g/dL RDW 16.2 H (11.5-15.5) % Plt Count 557 H (150-450) k/uL Neutrophils # 10.4 H (1.3-7.7) k/uL Lymphocytes # 0.9 L (1.0-4.8) k/uL BUN 8.0 L (9.0-27.0) mg/dL Glucose 235 H (70-110) mg/dL POC Glucose (mg/dL) 251 H (75-99) mg/dL Calcium 7.7 L (8.7-10.3) mg/dL Total Bilirubin 0.1 L (0.3-1.2) mg/dL ALT 62 H (10-49) U/L Alkaline Phosphatase 163 H (41-126) U/L Total Protein 5.0 L (6.2-8.2) g/dL Albumin 2.70 L (3.80-4.90) g/dL Albumin/Globulin Ratio 1.17 L (1.60-3.17) g/dL Microbiology - Last 24 Hours (Table) 01/22/20 10:00 Gram Stain - Final Ankle - Left Wound Culture - Final Enterococcus faecalis Non Hemolytic Strep 01/19/20 12:42 Blood Culture - Final Blood No Growth after 144 hours 01/22/20 10:00 Anaerobic Culture - Final Ankle - Left Anaerobic Gm Negative Bacilli Anaerobic Gram Positive Cocci 01/21/20 10:50 Anaerobic Culture - Final Ankle - Left Anaerobic Gram Positive Cocci Anaerobic Gram Positive Cocci#2 01/22/20 10:00 Gram Stain - Preliminary Ankle - Left Tissue Culture - Preliminary Enterococcus faecalis Non Hemolytic Strep Assessment and Plan Assessment: 1. Cellulitis left lower extremity with sepsis. White blood cell count elevated at 17.7. Elevated heart rate. Lactic acid 2.1. Patient started on Zosyn and vancomycin. Repeat lactic acid 1.0. Blood cultures ordered. Dr. Moran per infectious disease has been consulted. 2. Elevated heart rate likely secondary to infection. EKG ordered. Cardiac monitoring ordered. Patient denies chest pain. 3. History of type 1 diabetes mellitus. A1c will be ordered. Sliding scale insulin ordered. Home dose of long-acting ordered. 4. History of GERD. 5. History of hyperlipidemia. Maintain on statin 6. History of seizures last seizure 6 months ago 7. Cough Will check chest x-ray and check Covid 19 testing 8. Nausea at this time will treat symptomatically possibly side effect of an tibiotic Will monitor closely. DVT prophylaxis Lovenox. GI prophylaxis Pepcid Continue normal saline at 75 Zosyn and vancomycin for IV antibiotics Blood culture ordered Dr. Moran consulted for infectious disease
[2020-01-26 20:27] LABS: Glucose,Whole Blood 204 mg/dL (75-99)
[2020-01-26] MEDS: ATORVASTATIN 20 MG TAB PO SCH (21:46)
[2020-01-27] MEDS: AMPICILLIN-SULBACTAM 3 GM in SODIUM CHLORIDE 0.9% 100 ML IVPB SCH ×3 (00:24→11:36)
--- NOTE | 2020-01-27 00:26 | PN ---
PROGRESS NOTE DATE OF SERVICE: 01/26/2020. REASON FOR FOLLOWUP: Left diabetic foot wound. INTERVAL HISTORY: The patient is currently afebrile. Patient is breathing comfortably. Denies having any chest pain. Minimal cough. Denies worsening pain to the left leg wound area. PHYSICAL EXAMINATION: Blood pressure 133/73 with a pulse of 101, temperature 98.1. He is 98% on 5 L nasal cannula. General description is a middle-aged male lying in bed in no distress. RESPIRATORY SYSTEM: Unlabored breathing, clear to auscultation anteriorly. Examination left leg wound slough tissue, surrounding redness has improved. No foul smelling drainage. LABS: Hemoglobin 7.9, white count 12.2 with a BUN of 8, creatinine 0.6. DIAGNOSTIC IMPRESSION AND PLAN: Patient with left diabetic foot infection with extensive wound involving the tendon and calcaneus with underlying peripheral arterial disease. The patient's culture positive for Enterococcus and anaerobes and MSSA covered with Unasyn 3 grams q.6 hours. Plan for a total of 6-week course of therapy. Local care with [facility] and close outpatient followup. MMODL / IJN: [id number] /
[2020-01-27] MEDS: SODIUM CHLORIDE 0.9% 1,000 ML IV SCH (05:41)
[2020-01-27 07:05] LABS: Glucose,Whole Blood 250 mg/dL (75-99)
[2020-01-27] MEDS: INSULIN DETEMIR (LEVEMIR) 100 UNIT/ML SYR SQ SCH (07:46)
[2020-01-27] MEDS: INSULIN ASPART (NovoLOG) 100 UNIT/ML VIAL SQ SCH ×2 (07:46→12:48)
[2020-01-27] MEDS: PANTOPRAZOLE 40 MG TABLET PO SCH (07:46)
[2020-01-27 08:01] LABS: Anisocytosis Slight; Basophils % (A) 0 %; Eosinophils # (A) 0.2 k/uL (0-0.7); Eosinophils % (A) 2 %; HCT 27.5 % (39.0-53.0); HGB 8.4 gm/dL (13.0-17.5); Hypochromasia Slight; Lymphocytes # (A) 0.8 k/uL (1.0-4.8); Lymphocytes % (A) 7 %; MCH 23.5 pg (25.0-35.0); MCHC 30.6 g/dL (31.0-37.0); MCV 76.8 fL (80.0-100.0); Mean Platelet Volume 6.2; Microcytosis Slight; Monocytes # (A) 0.4 k/uL (0-1.0); Monocytes % (A) 4 %; Neutrophils # (A) 9.8 k/uL (1.3-7.7); Neutrophils % (A) 86 %; Platelet Count 546 k/uL (150-450); RBC 3.58 m/uL (4.30-5.90); RDW 16.4 % (11.5-15.5); WBC 11.4 k/uL (3.8-10.6)
[2020-01-27] MEDS: COLLAGENASE 250 UNIT/GM OINTMENT 30 GM TUBE TOPICAL SCH (09:25)
[2020-01-27] MEDS: MECLIZINE 25 MG TAB PO SCH ×2 (09:25→12:48)
[2020-01-27] MEDS: ENOXAPARIN 40 MG/0.4 ML SYRINGE SQ SCH (09:25)
[2020-01-27] MEDS: DIPHENOX-ATROP 2.5-0.025 MG 1 EACH TAB PO SCH (09:25)
[2020-01-27] MEDS: PHENYTOIN SODIUM EXTENDED 100 MG CAP PO SCH (09:26)
[2020-01-27] MEDS: PREGABALIN 75 MG CAP PO SCH (09:26)
[2020-01-27] MEDS: PIOGLITAZONE 15 MG TAB PO SCH (09:26)
[2020-01-27] MEDS: guaiFENesin-Coden 100-10MG/5ML 10 ML CUP PO PRN (09:35)
[2020-01-27 11:14] LABS: African American GFR (CKD) 127.6 (60.0-200.0); Albumin 2.9 g/dL (3.80-4.90); Albumin/Globulin Ratio 1.16 (1.60-3.17); Anion Gap 7.4 mmol/L (4.00-12.00); BUN/Creat Ratio 13.33 Ratio (12.00-20.00); Calcium 8.1 mg/dL (8.7-10.3); Carbon Dioxide 31.6 mmol/L (21.6-31.8); Globulin 2.5 g/dL (1.6-3.3); Non-African American GFR(CKD) 110.1 (60.0-200.0); Potassium 4.6 mmol/L (3.5-5.5); Total Bilirubin 0.1 mg/dL (0.2-1.2); Total Protein 5.4 g/dL (6.2-8.2)
[2020-01-27 11:29] LABS: Glucose,Whole Blood 227 mg/dL (75-99)
[2020-01-27 12:14] VITALS: BP 143/78; PULSE 105; RESP 17; TEMP 98.3
--- NOTE | 2020-01-27 13:02 | P.PN ---
Subjective Progress Note Date: 01/27/20 This is a 59-year-old male patient presented to the ER in the wound care center for concerns of infection to lower extremity wound. Patient has been chronically treated for his wounds in the wound care center but states that wound has become increasingly worse with the past few days denies any fevers sh akiness chills at home. Patient is a known diabetic type I. Additional medical history includes GERD, hyperlipidemia, osteoporosis, seizures. X-rays were completed showing soft tissue irregularity and edema could be on the basis of infectious etiology or cellulitis no osseous abnormality to suggest osteomyelitis. Patient's heart rate elevated upon admit. White blood cell also elevated at 17.7. Lactic acid 2.1. Patient has been admitted and started on Zosyn and vancomycin blood cultures ordered. Patient received [address] Moran per infectious disease have been consulted. At this time patient denies any chest pain or shortness breath. Patient denies nausea vomiting or diarrhea. Patient denies any urinary burning or frequency On 01/21/2020 patient was seen and examined on the medical floor he is alert and oriented 3 in no apparent distress , he is complaining of cough , he had episodes of elevated temperature up to 102 through the night he was also tachycardic with heart rate of 120 he is maintained on IV antibiotic cefepime and vancomycin for lower extremity cellulitis and sepsis, at this time will check chest x-ray and check Covid 19 chest to rule out other causes of fever and sepsis, otherwise patient denies any complaints there is no headache or dizzin ess no chest pain no shortness of breath no nausea or vomiting no abdominal pain no diarrhea no blood in the stools no burning with urination no frequency or urgency and no hematuria. On 01/22/2020 patient was seen and examined on the medical floor he is alert and oriented 3 he is complaining of nausea this morning otherwise he denies any complaints there is no fever or chills no headache or dizziness no chest pain no shortness of breath no cough vomiting no abdominal pain no diarrhea no blood in the stools no burning with urination no frequency or urgency and no hematuria. Patient is followed by infectious disease, consultation for vascular surgery was initiated for possible debridement of his lower extremity wound. On 01/23/2020 patient was seen and examined on the medical floor he is alert and oriented 3 in no distress he is complaining of bilateral lower extremity pain otherwise he denies any complaints there is no fever or chills no headache or dizziness no chest pain no shortness of breath no cough no nausea or vomiting no abdominal pain no diarrhea and no urinary symptoms, Dr. Guerrier vascular surgery was consulted for possible debridement of lower extremity wounds On 01/24/2020 patient was seen and examined on the medical floor he is alert and oriented in no distress he is complaining of bilateral lower extremity pain otherwise he denies any complaints he is followed by vascular surgery and infectious disease he is maintained on IV antibiotics there is no fever or chills no headache or dizziness no chest pain no shortness of breath no cough no nausea or vomiting no abdominal pain no diarrhea and no urinary symptoms. On 01/25/2020 patient was seen and examined on the medical floor he is alert and oriented 3 in no distress there is no fever or chills no headache or dizziness no chest pain no shortness of breath no cough no nausea or vomiting no abdominal pain no diarrhea and no urinary symptoms. He is still complaining of bilateral lower extremity pain. We are awaiting authorization for intermediate placement for continued IV antibiotic and rehabilitation. On 01/26/2020 patient was seen and examined on the medical floor, he is alert and oriented 3 in no apparent distress there is no fever or chills no headache or dizziness no chest pain no shortness of breath no cough no nausea or vomiting no abdominal pain no diarrhea and no urinary symptoms or extremity is better controlled today, at this time we are still awaiting prior authorization from intermediate for rehabilitation and continued IV antibiotics. On 01/27/2020 patient was seen and examined on the medical floor he is alert and oriented 3 in no distress there is no fever or chills no headache or dizziness no chest pain no shortness of breath no cough no nausea or vomiting no abdominal pain no diarrhea no blood in the stools no burning with urination no frequency or urgency and no hematuria. Pain in the bilateral lower extremity is improving. At this time we are awaiting prior authorization from his insurance for intermediate for IV antibiotic after discharge and rehabilitation Objective - Vital Signs Vital signs: Vital Signs Temp 98.3 F 01/27/20 12:14 Pulse 105 H 01/27/20 12:14 Resp 17 01/27/20 12:14 BP 143/78 01/27/20 12:14 Pulse Ox 97 01/27/20 12:14 Intake & Output 01/26/20 01/27/20 01/27/20 18:59 06:59 18:59 Intake Total 1000 500 Output Total 450 1400 1500 Balance -450 -400 -1000 Intake: IV 1000 Sodium Chloride 0.9% 1, 1000 000 ml @ 125 mls/hr IV . Q8H [facility] Rx#:[id number] Oral 500 Output: Urine 450 1400 1500 Other: Voiding Method Toilet Toilet Toilet Urinal Urinal Urinal - Exam In general patient is alert and oriented 3 in no apparent distress Head normocephalic and atraumatic Neck supple no JVD no goiter Lungs clear to auscultation bilaterally no wheezing or crackles Heart regular rate and rhythm S1-S2, no rub or gallop Abdomen is soft nontender nondistended positive bowel sounds no hepatosplenomegaly Extremities right lower leg wound with he was drainage from approximately quarter size wound erythema noted around, foul smell noted Neuro no gross focal neurological deficit - Labs CBC & Chem 7: 01/27/20 07:35 01/27/20 07:35 Labs: Abnormal Lab Results - Last 24 Hours (Table) 01/26/20 01/26/20 01/27/20 Range/Units 17:04 20:25 07:04 WBC (3.8-10.6) k/uL RBC (4.30-5.90) m/uL Hgb (13.0-17.5) gm/dL Hct (39.0-53.0) % MCV (80.0-100.0) fL MCH (25.0-35.0) pg MCHC (31.0-37.0) g/dL RDW (11.5-15.5) % Plt Count (150-450) k/uL Neutrophils # (1.3-7.7) k/uL Lymphocytes # (1.0-4.8) k/uL Sodium (135-145) mmol/L Chloride (96-109) mmol/L BUN (9.0-27.0) mg/dL Glucose (70-110) mg/dL POC Glucose (mg/dL) 257 H 204 H 250 H (75-99) mg/dL Calcium (8.7-10.3) mg/dL Total Bilirubin (0.2-1.2) mg/dL ALT (10-49) U/L Alkaline Phosphatase (41-126) U/L Total Protein (6.2-8.2) g/dL Albumin (3.80-4.90) g/dL Albumin/Globulin Ratio (1.60-3.17) g/dL 01/27/20 01/27/20 01/27/20 Range/Units 07:35 07:35 11:28 WBC 11.4 H (3.8-10.6) k/uL RBC 3.58 L (4.30-5.90) m/uL Hgb 8.4 L (13.0-17.5) gm/dL Hct 27.5 L (39.0-53.0) % MCV 76.8 L (80.0-100.0) fL MCH 23.5 L (25.0-35.0) pg MCHC 30.6 L (31.0-37.0) g/dL RDW 16.4 H (11.5-15.5) % Plt Count 546 H (150-450) k/uL Neutrophils # 9.8 H (1.3-7.7) k/uL Lymphocytes # 0.8 L (1.0-4.8) k/uL Sodium 134 L (135-145) mmol/L Chloride 95 L (96-109) mmol/L BUN 8.0 L (9.0-27.0) mg/dL Glucose 246 H (70-110) mg/dL POC Glucose (mg/dL) 227 H (75-99) mg/dL Calcium 8.1 L (8.7-10.3) mg/dL Total Bilirubin 0.1 L (0.2-1.2) mg/dL ALT 51 H (10-49) U/L Alkaline Phosphatase 181 H (41-126) U/L Total Protein 5.4 L (6.2-8.2) g/dL Albumin 2.90 L (3.80-4.90) g/dL Albumin/Globulin Ratio 1.16 L (1.60-3.17) g/dL Microbiology - Last 24 Hours (Table) 01/22/20 10:00 Gram Stain - Final Ankle - Left Tissue Culture - Preliminary Enterococcus faecalis Non Hemolytic Strep Anaerobic Gm Negative Bacilli Anaerobic Gm Negative Bacilli#2 01/22/20 10:00 Gram Stain - Final Ankle - Left Wound Culture - Final Enterococcus faecalis Non Hemolytic Strep Assessment and Plan Assessment: 1. Cellulitis left lower extremity with sepsis. White blood cell count elevated at 17.7. Elevated heart rate. Lactic acid 2.1. Patient started on Zosyn and vancomycin. Repeat lactic acid 1.0. Blood cultures ordered. Dr. Moran per infectious disease has been consulted. 2. Elevated heart rate likely secondary to infection. EKG ordered. Cardiac monitoring ordered. Patient denies chest pain. 3. History of type 1 diabetes mellitus. A1c will be ordered. Sliding scale insulin ordered. Home dose of long-acting ordered. 4. History of GERD. 5. History of hyperlipidemia. Maintain on statin 6. History of seizures last seizure 6 months ago 7. Cough Will check chest x-ray and check Covid 19 testing 8. Nausea at this time will treat symptomatically possibly side effect of antibiotic Will monitor closely. DVT prophylaxis Lovenox. GI prophylaxis Pepcid Continue normal saline at 75 Zosyn and vancomycin for IV antibiotics Blood culture ordered Dr. Moran consulted for infectious disease
--- NOTE | 2020-01-27 15:31 | P.DS ---
Providers Date of admission: 01/19/20 14:08 Expected date of discharge: 01/27/20 Attending physician: Helen Chen Consults: 01/19/20 13:58 Consult Physician Routine Consulting Provider: Tess Moran Consult Reason/Comments: infected wound Do you want consulting provider notified?: Yes, Notify in am 01/21/20 14:22 Consult Physician Routine Consulting Provider: Bladimir Guerrier Consult Reason/Comments: leg wound and debridment Do you want consulting provider notified?: Yes Primary care physician: Helen Chen [facility] Course: Diagnoses on discharge: 1. Cellulitis left lower extremity with sepsis. White blood cell count elevated at 17.7. Elevated heart rate. Lactic acid 2.1. Patient started on Zosyn and vancomycin. Repeat lactic acid 1.0. Blood cultures ordered. Dr. Moran per infectious disease has been consulted. 2. Elevated heart rate likely secondary to infection. EKG ordered. Cardiac monitoring ordered. Patient denies chest pain. 3. History of type 1 diabetes mellitus. A1c will be ordered. Sliding scale insulin ordered. Home dose of long-acting ordered. 4. History of GERD. 5. History of hyperlipidemia. Maintain on statin 6. History of seizures last seizure 6 months ago 7. Cough Will check chest x-ray and check Covid 19 testing 8. Nausea at this time will treat symptomatically possibly side effect of antibiotic Will monitor closely. Hospital Course: This is a 59-year-old male patient presented to the ER in the wound care center for concerns of infection to lower extremity wound. Patient has been chronically treated for his wounds in the wound care center but states that wound has become increasingly worse with the past few days denies any fevers shakiness chills at home. Patient is a known diabetic type I. Additional medical history includes GERD, hyperlipidemia, osteoporosis, seizures. X-rays were completed showing soft tissue irregularity and edema could be on the basis of infectious etiology or cellulitis no osseous abnormality to suggest osteomyelitis. Patient's heart rate elevated upon admit. White blood cell also elevated at 17.7. Lactic acid 2.1. Patient has been admitted and started on Zosyn and vancomycin blood cultures ordered. Patient received [address] Moran per infectious disease have been consulted. At this time patient denies any chest pain or shortness breath. Patient denies nausea vomiting or diarrhea. Patient denies any urinary burning or frequency On 01/21/2020 patient was seen and examined on the medical floor he is alert and oriented 3 in no apparent distress , he is complaining of cough , he had episodes of elevated temperature up to 102 through the night he was also tachycardic with heart rate of 120 he is maintained on IV antibiotic cefepime and vancomycin for lower extremity cellulitis and sepsis, at this time will check chest x-ray and check Covid 19 chest to rule out other causes of fever and sepsis, otherwise patient denies any complaints there is no headache or dizziness no chest pain no shortness of breath no nausea or vomiting no abdominal pain no diarrhea no blood in the stools no burning with urination no frequency or urgency and no hematuria. On 01/22/2020 patient was seen and examined on the medical floor he is alert and oriented 3 he is complaining of nausea this morning otherwise he denies any complaints there is no fever or chills no headache or dizziness no chest pain no shortness of breath no cough vomiting no abdominal pain no diarrhea no blood in the stools no burning with urination no frequency or urgency and no hematuria. Patient is followed by infectious disease, consultation for vascular surgery was initiated for possible debridement of his lower extremity wound. On 01/23/2020 patient was seen and examined on the medical floor he is alert and oriented 3 in no distress he is complaining of bilateral lower extremity pain otherwise he denies any complaints there is no fever or chills no headache or dizziness no chest pain no shortness of breath no cough no nausea or vomiting no abdominal pain no diarrhea and no urinary symptoms, Dr. Guerrier vascular surgery was consulted for possible debridement of lower extremity wounds On 01/24/2020 patient was seen and examined on the medical floor he is alert and oriented in no distress he is complaining of bilateral lower extremity pain otherwise he denies any complaints he is followed by vascular surgery and infectious disease he is maintained on IV antibiotics there is no fever or chi lls no headache or dizziness no chest pain no shortness of breath no cough no nausea or vomiting no abdominal pain no diarrhea and no urinary symptoms. On 01/25/2020 patient was seen and examined on the medical floor he is alert and oriented 3 in no distress there is no fever or chills no headache or dizziness no chest pain no shortness of breath no cough no nausea or vomiting no abdominal pain no diarrhea and no urinary symptoms. He is still complaining of bilateral lower extremity pain. We are awaiting authorization for correction placement for continued IV antibiotic and rehabilitation. On 01/26/2020 patient was seen and examined on the medical floor, he is alert and oriented 3 in no apparent distress there is no fever or chills no headache or dizziness no chest pain no shortness of breath no cough no nausea or vomiting no abdominal pain no diarrhea and no urinary symptoms or extremity is better controlled today, at this time we are still awaiting prior authorization from [facility] for rehabilitation and continued IV antibiotics. On 01/27/2020 patient was seen and examined on the medical floor he is alert and oriented 3 in no distress there is no fever or chills no headache or dizziness no chest pain no shortness of breath no cough no nausea or vomiting no abdominal pain no diarrhea no blood in the stools no burning with urination no frequency or urgency and no hematuria. Pain in the bilateral lower extremity is improving. At this time we are awaiting prior authorization from his insurance for correction for IV antibiotic after discharge and rehabilitation Patient Condition at Discharge: Stable Plan - Discharge Summary New Discharge Prescriptions: New Menthol [Nice Cough Drops] 1 each MUCOUS MEM Q2H PRN lozenge PRN Reason: Sore Throat Collagenase [Santyl] 1 applic TOPICAL DAILY applic Acetaminophen Tab [Tylenol] 650 mg PO Q6HR PRN tab PRN Reason: Fever And/ Or Pain Ampicillin-Sulbactam [Unasyn] 3 gm IVPB Q6HR vial Continue Phenytoin Sodium Extended [Dilantin] 200 mg PO BID Omeprazole 20 mg PO DAILY Pioglitazone HCl [Actos] 15 mg PO DAILY Diphenox-Atrop 2.5-0.025 mg [Lomotil] 1 tab PO BID Pregabalin [Lyrica] 75 mg PO BID Rosuvastatin [Crestor] 10 mg PO HS Collagenase [Santyl] 1 applic TOPICAL DAILY Mupirocin 2% Oint [Bactroban 2% Oint] 1 applic TOPICAL DAILY Meclizine [Antivert] 25 mg PO QID Insulin Glargine [Lantus] 35 unit SQ DAILY HYDROcodone/APAP 5-325MG [[place] 5-325] 1 tab PO BID PRN PRN Reason: Pain Gentamicin 0.1% Cream 1 applic TOPICAL BID Insulin Glulisine [Apidra] See Protocol SQ AC-TID Triamcinolone 0.5% Cream [Kenalog 0.5% Cream] 1 applic TOPICAL DAILY Discharge Medication List Phenytoin Sodium Extended [Dilantin] 200 mg PO BID 11/17/16 [History] Omeprazole 20 mg PO DAILY 06/13/17 [History] Pioglitazone HCl [Actos] 15 mg PO DAILY 10/03/18 [History] Diphenox-Atrop 2.5-0.025 mg [Lomotil] 1 tab PO BID 11/17/19 [History] Pregabalin [Lyrica] 75 mg PO BID 11/17/19 [History] Rosuvastatin [Crestor] 10 mg PO HS 11/17/19 [History] Collagenase [Santyl] 1 applic TOPICAL DAILY 01/19/20 [History] Gentamicin 0.1% Cream 1 applic TOPICAL BID 01/19/20 [History] HYDROcodone/APAP 5-325MG [[place] 5-325] 1 tab PO BID PRN 01/19/20 [History] Insulin Glargine [Lantus] 35 unit SQ DAILY 01/19/20 [History] Insulin Glulisine [Apidra] See Protocol SQ AC-TID 01/19/20 [History] Meclizine [Antivert] 25 mg PO QID 01/19/20 [History] Mupirocin 2% Oint [Bactroban 2% Oint] 1 applic TOPICAL DAILY 01/19/20 [History] Triamcinolone 0.5% Cream [Kenalog 0.5% Cream] 1 applic TOPICAL DAILY 01/19/20 [History] Acetaminophen Tab [Tylenol] 650 mg PO Q6HR PRN tab 01/27/20 [Rx] Ampicillin-Sulbactam [Unasyn] 3 gm IVPB Q6HR vial 01/27/20 [Rx] Collagenase [Santyl] 1 applic TOPICAL DAILY applic 01/27/20 [Rx] Menthol [Nice Cough Drops] 1 each MUCOUS MEM Q2H PRN lozenge 01/27/20 [Rx] Follow up Appointment(s)/Referral(s): [facility] [NON-STAFF] - 01/30/20 3:15 pm Helen Chen MD [Primary Care Provider] - 1-2 days
--- NOTE | 2020-01-27 17:13 | PN ---
PROGRESS NOTE DATE OF SERVICE: 01/27/2020 REASON FOR FOLLOWUP: Left leg diabetic leg infection. INTERVAL HISTORY: The patient is currently afebrile. He was seen on rounds this afternoon. The patient denies having any chest pain. No shortness of breath or cough. No nausea. No vomiting, no abdominal pain or worsening pain to the left leg. PHYSICAL EXAMINATION: Blood pressure 143/78 with a pulse of 105, temperature 98.3, he is 97% on 5 L nasal cannula. General description is a middle-aged male lying in bed in no distress. RESPIRATORY SYSTEM: Unlabored breathing, clear to auscultation anteriorly. HEART: S1, S2. Regular rate and rhythm. ABDOMEN: Soft, no tenderness. EXTREMITIES: Left leg dressed up. No obvious drainage on the dressing. LABS: Hemoglobin 8.4, white count 11.4, creatinine is 0.6. IMPRESSION/PLAN: Patient left leg diabetic leg infection in this patient with culture positive for MSSA anaerobes and Enterococcus, is on Unasyn 3 g q.6 for 6 weeks. Local wound care with Santyl and close outpatient followup. MMODL / IJN: [id number] /
== END 2020-01-27 16:55 | DRG 854 ==
LOC: EC 11:44 → 6NMEDSUR 14:08 → 3NCARDOBS 01-20 04:38 → 6NMEDSUR 01-20 04:41
PROVIDERS: ADMIT Internal Medicine; ATTEND Internal Medicine
PROC: 0LBT0ZZ Excision of Left Ankle Tendon, Open Approach (ICD-10-PCS; principal; 2020-01-22)
PROC: 02H633Z Insertion of Infusion Device into Right Atrium, Percutaneous Approach (ICD-10-PCS; 2020-01-25)
PROC: 05HC33Z Insertion of Infusion Device into Left Basilic Vein, Percutaneous Approach (ICD-10-PCS; 2020-01-25)
DX: A41.02 Sepsis due to Methicillin resistant Staphylococcus aureus (principal); L03.116 Cellulitis of left lower limb; L97.322 Non-pressure chronic ulcer of left ankle with fat layer exposed; M86.172 Other acute osteomyelitis, left ankle and foot; E10.40 Type 1 diabetes mellitus with diabetic neuropathy, unspecified; E10.51 Type 1 diabetes mellitus with diabetic peripheral angiopathy without gangrene; A41.81 Sepsis due to Enterococcus; E10.69 Type 1 diabetes mellitus with other specified complication; E10.622 Type 1 diabetes mellitus with other skin ulcer; G40.909 Epilepsy, unspecified, not intractable, without status epilepticus; Z20.828 Contact with and (suspected) exposure to other viral communicable diseases; K21.9 Gastro-esophageal reflux disease without esophagitis; E78.5 Hyperlipidemia, unspecified; M81.0 Age-related osteoporosis without current pathological fracture; M19.90 Unspecified osteoarthritis, unspecified site; Z79.4 Long term (current) use of insulin; Z79.899 Other long term (current) drug therapy; Z90.89 Acquired absence of other organs; Z98.890 Other specified postprocedural states; Z86.69 Personal history of other diseases of the nervous system and sense organs; Z85.831 Personal history of malignant neoplasm of soft tissue; Z86.14 Personal history of Methicillin resistant Staphylococcus aureus infection; Z86.59 Personal history of other mental and behavioral disorders; Z80.9 Family history of malignant neoplasm, unspecified; Z83.3 Family history of diabetes mellitus
CPT/HCPCS: 36415; 36573; 71045; 71046; 78315; 80053; 80202; 81003; 82009; 82565; 83036; 83605; 83735; 84100; 84145; 85025; 85652; 86140; 87040; 87070; 87075; 87077; 87186; 87205; 93005; 96365; 96366; 96367; 99285

== ENCOUNTER 2020-02-16 21:48 | Emergency (ER) | payer OTHER ==
[2020-02-16 21:58] VITALS: RESP 18
--- NOTE | 2020-02-16 22:10 | ED ---
Fever HPI - General Chief Complaint: Fever Stated Complaint: +Covid Time Seen by Provider: 02/16/20 22:09 Source: patient, EMS Mode of arrival: EMS Limitations: no limitations - History of Present Illness Initial Comments: 59-year-old male presenting to the emergency department with a chief complaint of fever. Patient states he has been positive for Covid for about one week. He is currently undergoing rehab in a rehabilitation center. Patient is denying cough, chest pain or shortness of breath. The physician at the facility requested the patient be evaluated for a fever which has been ongoing for the last 3 days. Patient has been taking Tylenol and quarantining. CBC reveals anemia with hemoglobin of 9.5 which has been improving with the most recent blood draws. Patient has an elevated d-dimer. CT chest injury obtained reveals bilateral pneumonia but no signs of pulmonary embolism. Initially patient had an oxygen saturation of 93 at rest on room air. On reevaluation, patient had an ambulatory O2 between 95-96%. She was also given antipyretics. Upon discharge, patient was afebrile. Patient states he feels comfortable and wants to go home. Return parameters were thoroughly discussed the patient was understanding and agreeable. Case discussed physician. - Related Data Home Medications Medication Instructions Recorded Confirmed Phenytoin Sodium Extended 200 mg PO BID@0900,209911/17/16 02/16/20 [Dilantin] Omeprazole 20 mg PO DAILY@0900 06/13/17 02/16/20 Pioglitazone HCl [Actos] 15 mg PO DAILY@0900 10/03/18 02/16/20 Diphenox-Atrop 2.5-0.025 mg 1 tab PO BID@0900,209911/17/19 02/16/20 [Lomotil] Pregabalin [Lyrica] 75 mg PO BID@0900,209911/17/19 02/16/20 Gentamicin 0.1% Cream 1 applic TOPICAL BID 01/19/20 02/16/20 HYDROcodone/APAP 5-325MG [[place] 1 tab PO BID PRN 01/19/20 02/16/20 5-325] Insulin Glulisine [Apidra] See Protocol SQ TID@0800,1200,1700 01/19/20 02/16/20 Meclizine [Antivert] 25 mg PO QID@09,13,17,21 01/19/20 02/16/20 Mupirocin 2% Oint [Bactroban 2% 1 applic TOPICAL HS 01/19/20 02/16/20 Oint] Triamcinolone 0.5% Cream [Kenalog 1 applic TOPICAL DAILY 01/19/20 02/16/20 0.5% Cream] Ampicillin-Sulbactam [Unasyn] 3 gm IVPB Q6HR@00,06,12,18 02/16/20 02/16/20 Atorvastatin [Lipitor] 20 mg PO HS@209902/16/20 02/16/20 Ferrous Sulfate [Feosol] 325 mg PO DAILY@0900 02/16/20 02/16/20 Glucerna Shake 1 can PO BID@0900,1700 02/16/20 02/16/20 Insulin Glargine,Hum.rec.anlog 33 unit SQ HS@209902/16/20 02/16/20 [Basaglar Kwikpen U-100] Loperamide HCl [Loperamide] 2 mg PO DAILY PRN 02/16/20 02/16/20 Menthol [Nice Cough Drops] 1 lozenge PO Q2H PRN 02/16/20 02/16/20 guaiFENesin [guaiFENesin Oral 200 mg PO Q4H PRN 02/16/20 02/16/20 Solution] Previous Rx's Medication Instructions Recorded Acetaminophen Tab [Tylenol] 650 mg PO Q6HR PRN tab 01/27/20 Collagenase [Santyl] 1 applic TOPICAL DAILY applic 01/27/20 Allergies Allergy/AdvReac Type Severity Reaction Status Date / Time No Known Allergies Allergy Verified 02/16/20 23:45 Review of Systems ROS Statement: Those systems with pertinent positive or pertinent negative responses have been documented in the HPI. ROS Other: All systems not noted in ROS Statement are negative. Past Medical History Past Medical History: Cancer, Diabetes Mellitus, GERD/Reflux, Hyperlipidemia, Osteoarthritis (OA), Seizure Disorder Additional Past Medical History / Comment(s): Last seizure 6 months ago. 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 Diarrhea occ. 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 Past Anesthesia/Blood Transfusion Reactions: No Reported Reaction Past Psychological History: Depression Smoking Status: Never smoker Past Alcohol Use History: None Reported Past Drug Use History: None Reported - Past Family History Father Additional Family Medical History / Comment(s): AT AGE 57 Mother Family Medical History: Cancer Sister(s) Family Medical History: Diabetes Mellitus General Exam Limitations: no limitations Course Vital Signs 02/16/20 02/16/20 02/16/20 21:51 21:57 22:57 Temperature 101.6 F H Pulse Rate 108 H 101 H 99 Respiratory 18 18 18 Rate Blood Pressure 141/80 130/72 121/70 O2 Sat by Pulse 96 94 L 93 L Oximetry 02/16/20 02/17/20 02/17/20 23:59 00:35 01:00 Temperature 99.8 F H Pulse Rate 103 H 77 Respiratory 18 18 Rate Blood Pressure 141/80 128/79 O2 Sat by Pulse 93 L 96 Oximetry 02/17/20 02:10 Temperature 98.4 F Pulse Rate 104 H Respiratory 18 Rate Blood Pressure 133/56 O2 Sat by Pulse 95 Oximetry Medical Decision Making - Lab Data Result diagrams: 02/16/20 22:30 02/16/20 22:30 Lab Results 02/16/20 02/16/20 02/16/20 Range/Units 22:30 22:30 22:30 WBC 3.3 L (3.8-10.6) k/uL RBC 3.89 L (4.30-5.90) m/uL Hgb 9.5 L (13.0-17.5) gm/dL Hct 29.0 L (39.0-53.0) % MCV 74.7 L (80.0-100.0) fL MCH 24.5 L (25.0-35.0) pg MCHC 32.8 (31.0-37.0) g/dL RDW 17.3 H (11.5-15.5) % Plt Count 217 (150-450) k/uL MPV 6.9 Neutrophils % 61 % Lymphocytes % 27 % Monocytes % 7 % Eosinophils % 2 % Basophils % 2 % Neutrophils # 2.0 (1.3-7.7) k/uL Lymphocytes # 0.9 L (1.0-4.8) k/uL Monocytes # 0.2 (0-1.0) k/uL Eosinophils # 0.1 (0-0.7) k/uL Basophils # 0.1 (0-0.2) k/uL Anisocytosis Slight Microcytosis Slight PT 10.2 (9.0-12.0) sec INR 1.0 (<1.2) APTT 32.9 H (22.0-30.0) sec D-Dimer 0.80 H (<0.60) mg/L FEU Sodium 124 L (137-145) mmol/L Potassium 4.2 (3.5-5.1) mmol/L Chloride 92 L (98-107) mmol/L Carbon Dioxide 28 (22-30) mmol/L Anion Gap 4 mmol/L BUN 11 (9-20) mg/dL Creatinine 0.48 L (0.66-1.25) mg/dL Est GFR (CKD-EPI)AfAm >90 (>60 ml/min/1.73 sqM) Est GFR (CKD-EPI)NonAf >90 (>60 ml/min/1.73 sqM) Glucose 160 H (74-99) mg/dL Plasma Lactic Acid Michael (0.7-2.0) mmol/L Calcium 7.6 L (8.4-10.2) mg/dL Magnesium 1.6 (1.6-2.3) mg/dL Ferritin 36.1 (22.0-322.0) ng/mL Total Bilirubin 0.2 (0.2-1.3) mg/dL AST 35 (17-59) U/L ALT 23 (4-49) U/L Alkaline Phosphatase 99 (38-126) U/L Lactate Dehydrogenase 430 (313-618) U/L C-Reactive Protein 75.1 H (<10.0) mg/L Total Protein 6.0 L (6.3-8.2) g/dL Albumin 2.9 L (3.5-5.0) g/dL Procalcitonin (0.02-0.09) ng/mL 02/16/20 02/16/20 Range/Units 22:30 22:30 WBC (3.8-10.6) k/uL RBC (4.30-5.90) m/uL Hgb (13.0-17.5) gm/dL Hct (39.0-53.0) % MCV (80.0-100.0) fL MCH (25.0-35.0) pg MCHC (31.0-37.0) g/dL RDW (11.5-15.5) % Plt Count (150-450) k/uL MPV Neutrophils % % Lymphocytes % % Monocytes % % Eosinophils % % Basophils % % Neutrophils # (1.3-7.7) k/uL Lymphocytes # (1.0-4.8) k/uL Monocytes # (0-1.0) k/uL Eosinophils # (0-0.7) k/uL Basophils # (0-0.2) k/uL Anisocytosis Microcytosis PT (9.0-12.0) sec INR (<1.2) APTT (22.0-30.0) sec D-Dimer (<0.60) mg/L FEU Sodium (137-145) mmol/L Potassium (3.5-5.1) mmol/L Chloride (98-107) mmol/L Carbon Dioxide (22-30) mmol/L Anion Gap mmol/L BUN (9-20) mg/dL Creatinine (0.66-1.25) mg/dL Est GFR (CKD-EPI)AfAm (>60 ml/min/1.73 sqM) Est GFR (CKD-EPI)NonAf (>60 ml/min/1.73 sqM) Glucose (74-99) mg/dL Plasma Lactic Acid Michael 0.8 (0.7-2.0) mmol/L Calcium (8.4-10.2) mg/dL Magnesium (1.6-2.3) mg/dL Ferritin (22.0-322.0) ng/mL Total Bilirubin (0.2-1.3) mg/dL AST (17-59) U/L ALT (4-49) U/L Alkaline Phosphatase (38-126) U/L Lactate Dehydrogenase (313-618) U/L C-Reactive Protein (<10.0) mg/L Total Protein (6.3-8.2) g/dL Albumin (3.5-5.0) g/dL Procalcitonin 0.07 (0.02-0.09) ng/mL - EKG Data EKG Comments: Sinus tachycardia Ventricular rate 105, MS 134, QRS 78, QTC 404. Disposition Clinical Impression: Fever, Pneumonia due to COVID-19 virus Disposition: HOME SELF-CARE Condition: Stable Instructions (If sedation given, give patient instructions): Fever in Adults (ED) Additional Instructions: Follow-up with primary care physician. Quarantine for 10 days after the onset of symptoms. Continue taking Tylenol for fever. Return to emergency department if symptoms worsen. Is patient prescribed a controlled substance at d/c from ED?: No Referrals: Helen Chen MD [Primary Care Provider] - 1-2 days Time of Disposition: 01:42
[2020-02-16 22:38] LABS: Anisocytosis Slight; Basophils # (A) 0.1 k/uL (0-0.2); Basophils % (A) 2 %; Eosinophils # (A) 0.1 k/uL (0-0.7); Eosinophils % (A) 2 %; HGB 9.5 gm/dL (13.0-17.5); Lymphocytes # (A) 0.9 k/uL (1.0-4.8); Lymphocytes % (A) 27 %; MCH 24.5 pg (25.0-35.0); MCHC 32.8 g/dL (31.0-37.0); MCV 74.7 fL (80.0-100.0); Mean Platelet Volume 6.9; Microcytosis Slight; Monocytes # (A) 0.2 k/uL (0-1.0); Monocytes % (A) 7 %; Neutrophils % (A) 61 %; Platelet Count 217 k/uL (150-450); RBC 3.89 m/uL (4.30-5.90); RDW 17.3 % (11.5-15.5); WBC 3.3 k/uL (3.8-10.6)
[2020-02-16 22:50] LABS: ALT 23 U/L (4-49); AST 35 U/L (17-59); African American GFR (CKD) >90 (>60 ml/min/1.73 sqM); Albumin 2.9 g/dL (3.5-5.0); Alkaline Phosphatase 99 U/L (38-126); Anion Gap 4 mmol/L; Blood Urea Nitrogen 11 mg/dL (9-20); C Reactive Protein 75.1 mg/L (<10.0); Calcium 7.6 mg/dL (8.4-10.2); Carbon Dioxide 28 mmol/L (22-30); Chloride 92 mmol/L (98-107); Glucose 160 mg/dL (74-99); LDH 430 U/L (313-618); Magnesium 1.6 mg/dL (1.6-2.3); Non-African American GFR(CKD) >90 (>60 ml/min/1.73 sqM); Potassium 4.2 mmol/L (3.5-5.1); Sodium 124 mmol/L (137-145); Total Bilirubin 0.2 mg/dL (0.2-1.3)
--- NOTE | 2020-02-16 22:51 | XR ---
EXAMINATION TYPE: XR chest 1V portable DATE OF EXAM: 02/16/2020 COMPARISON: 01/25/2020 HISTORY: Pneumonia. Cough and short of breath TECHNIQUE: Single view FINDINGS: Heart is normal. There is mild normal pulmonary interstitial infiltrates. There are chest l rosalinda. There is no pleural effusion. There are no hilar masses. Mediastinum is normal. IMPRESSION: There is significant clearing of the pulmonary infiltrates compared to old exam. No heart failure. There is clearing of the pleural effusions compared to old exam.
[2020-02-16 22:58] LABS: Partial Thromboplastin Time 32.9 sec (22.0-30.0); Prothrombin Time 10.2 sec (9.0-12.0)
[2020-02-16 23:08] LABS: D-Dimer 0.8 mg/L FEU (<0.60)
--- NOTE | 2020-02-17 00:37 | CT ---
EXAM: CT Angiography Chest With Intravenous Contrast CLINICAL HISTORY: pe suspected, + dimer TECHNIQUE: Axial computed tomographic angiography images of the chest with intravenous contrast. CTDI is 7.77 mGy and DLP is 165.8 mGy-cm. This CT exam was performed using one or more of the following dose reduction techniques: automated exposure control, adjustment of the mA and/or kV according to patient size, and/or use of iterative reconstruction technique. MIP reconstructed images were created and reviewed. Coronal and sagittal reformatted images were created and reviewed. COMPARISON: No relevant prior studies available. FINDINGS: Pulmonary arteries: Unremarkable. No pulmonary embolism. Aorta: No acute findings. No thoracic aortic aneurysm. Lungs: Small to moderate amount of patchy airspace opacities in both lungs indicating pneumonia. Pleural space: Unremarkable. No significant effusion. No pneumothorax. Heart: Unremarkable. No cardiomegaly. No significant pericardial effusion. No evidence of RV dysfunction. Bones/joints: No acute fracture. No dislocation. Soft tissues: Unremarkable. IMPRESSION: 1. Bilateral pneumonia. 2. No pulmonary embolism. No thoracic aortic
[2020-02-17 02:12] VITALS: BP 133/56; PULSE 104; TEMP 98.4
[2020-02-17 02:41] LABS: Ferritin 36.1 ng/mL (22.0-322.0)
== END 2020-02-17 02:31 | disposition home or self-care (01) ==
LOC: EC 21:48
DX: U07.1 COVID-19 (principal); J12.89 Other viral pneumonia; E11.9 Type 2 diabetes mellitus without complications; K21.9 Gastro-esophageal reflux disease without esophagitis; E78.5 Hyperlipidemia, unspecified; M19.90 Unspecified osteoarthritis, unspecified site; F32.9 Major depressive disorder, single episode, unspecified; G40.909 Epilepsy, unspecified, not intractable, without status epilepticus; Z79.899 Other long term (current) drug therapy; Z79.1 Long term (current) use of non-steroidal anti-inflammatories (NSAID); Z86.14 Personal history of Methicillin resistant Staphylococcus aureus infection; Z79.4 Long term (current) use of insulin
CPT/HCPCS: 36415; 93005; 85379; 80053; 82728; 83605; 83615; 83735; 85025; 85610; 85730; 86140; 84145; 71045; 71275; 99285; Q9967

== ENCOUNTER 2020-05-14 19:31 | Inpatient (IN) | payer OTHER ==
[2020-05-14] MEDS ORDERED: SODIUM CHLORIDE 0.9% 2,000 ML IV STA (21:36)
[2020-05-14] MEDS ORDERED: ONDANSETRON 4 MG/2 ML VIAL IVP STA (21:38)
[2020-05-14 22:15] LABS: Basophils % (A) 0 %; Eosinophils % (A) 0 %; HCT 35.8 % (39.0-53.0); HGB 11.7 gm/dL (13.0-17.5); Lymphocytes # (A) 0.3 k/uL (1.0-4.8); Lymphocytes % (A) 2 %; MCH 25.6 pg (25.0-35.0); MCHC 32.6 g/dL (31.0-37.0); MCV 78.3 fL (80.0-100.0); Mean Platelet Volume 6.4; Microcytosis Slight; Monocytes # (A) 0.5 k/uL (0-1.0); Monocytes % (A) 4 %; Neutrophils # (A) 11.9 k/uL (1.3-7.7); Neutrophils % (A) 93 %; Platelet Count 508 k/uL (150-450); RBC 4.57 m/uL (4.30-5.90); RDW 15.3 % (11.5-15.5); WBC 12.8 k/uL (3.8-10.6)
[2020-05-14 22:16] LABS: Appearance,Urine Clear (Clear); Bilirubin,Urine Negative (Negative); Blood,Urine Small (Negative); Color,Urine Light Yellow; Glucose,Urine (UA) 4+ (Negative); Leukocyte Esterase,Urine Negative (Negative); Nitrite,Urine Negative (Negative); PH, Urine 5.5 (5.0-8.0); Protein,Urine 1+ (Negative); RBC,Urine 1 /hpf (0-5); Specific Gravity,Urine 1.028 (1.001-1.035); Urobilinogen,Urine <2.0 mg/dL (<2.0); WBC,Urine 5 /hpf (0-5)
[2020-05-14 22:18] LABS: VBG PH 7.5 (7.31-7.41)
[2020-05-14 22:28] LABS: ALT 11 U/L (4-49); AST 19 U/L (17-59); African American GFR (CKD) >90 (>60 ml/min/1.73 sqM); Albumin 3.9 g/dL (3.5-5.0); Alkaline Phosphatase 142 U/L (38-126); Amylase 43 U/L (30-110); Anion Gap 14 mmol/L; Blood Urea Nitrogen 13 mg/dL (9-20); Calcium 9.1 mg/dL (8.4-10.2); Carbon Dioxide 26 mmol/L (22-30); Chloride 88 mmol/L (98-107); Glucose 385 mg/dL (74-99); Lipase 43 U/L (23-300); Non-African American GFR(CKD) >90 (>60 ml/min/1.73 sqM); Potassium 4.4 mmol/L (3.5-5.1); Sodium 128 mmol/L (137-145); Total Bilirubin 0.3 mg/dL (0.2-1.3); Total Protein 7.7 g/dL (6.3-8.2)
--- NOTE | 2020-05-14 22:29 | XR ---
EXAMINATION TYPE: XR chest 2V DATE OF EXAM: 05/14/2020 COMPARISON: 02/16/2020 HISTORY: Fever TECHNIQUE: 2 views FINDINGS: Heart and mediastinum are normal. Lungs are clear. Diaphragm is normal. There are chest renuka ds. Bony thorax is intact. IMPRESSION: No active cardiopulmonary disease. Normal heart. No change.
[2020-05-14 22:38] LABS: Ketones,Urine 2+ (Negative)
--- NOTE | 2020-05-14 23:18 | CT ---
EXAMINATION TYPE: CT abdomen pelvis w con DATE OF EXAM: 05/14/2020 COMPARISON: 06/13/2017 HISTORY: abd pain epigastric with vomiting CT DLP: 516.8 mGycm Automated exposure control for dose reduction was used. CONTRAST: Performed with IV Contrast, patient injected with 100 mL of Isovue 300. Lung bases are clear. There is no pleural effusion. Heart size is normal. There is no pericardial eff usion. Liver spleen stomach pancreas gallbladder appear normal. Bile ducts are not dilated. There is no adrenal mass. Kidneys show satisfactory contrast opacification. There is no hydronephrosi s. Ureters are not dilated. Delayed images show normal renal excretion. There is no retroperitoneal a denopathy. Bladder distends smoothly. The urinary bladder is large and measures 12 cm. Prostate is la rge and measures 4.5 cm. There is no inguinal hernia. There is no sign of free fluid in the pelvis. A ppendix is not seen. There is no sign of thickened appendix. There is no mesenteric edema. There is no ascites or free air. There is no sign of a bowel obstructio n. The lumbar vertebra have normal alignment. Disc spaces are fairly normal. There is no compression fracture. The bony pelvis is intact. Hip joints are intact. IMPRESSION: Large urinary bladder decreased compared to old exam. This could relate to some chronic bladder outle t obstruction. Mild prostate enlargement.
[2020-05-14] MEDS ORDERED: ACETAMINOPHEN TAB 325 MG TAB PO STA (23:39)
[2020-05-14] MEDS ORDERED: ACETAMINOPHEN TAB 325 MG TAB PO PRN (23:53)
[2020-05-14] MEDS ORDERED: NALOXONE 0.4 MG/ML 1 ML VIAL IV PRN (23:53)
[2020-05-14] MEDS ORDERED: ONDANSETRON 4 MG/2 ML VIAL IVP PRN (23:53)
--- NOTE | 2020-05-14 23:53 | ED ---
General Adult HPI - General Chief complaint: Nausea/Vomiting/Diarrhea Stated complaint: vomiting Time Seen by Provider: 05/14/20 21:26 Source: patient, RN notes reviewed Mode of arrival: ambulatory Limitations: no limitations - History of Present Illness Initial comments: This is a 59-year-old male presents emergency Department chief complaint of hyperglycemia, nausea vomiting fever. Patient states symptoms started last 24 hours he states she's been vomiting. Patient went of upper abdominal pain. No stiff a cough no sick contacts no dysuria. Patient denies any significant diarrhea at this point. Patient does not take any recent Tylenol Motrin. Patient is a known type I diabetic on insulin. - Related Data Home Medications Medication Instructions Recorded Confirmed Phenytoin Sodium Extended 200 mg PO BID@0900,209911/17/16 02/16/20 [Dilantin] Omeprazole 20 mg PO DAILY@0900 06/13/17 02/16/20 Pioglitazone HCl [Actos] 15 mg PO DAILY@0900 10/03/18 02/16/20 Diphenox-Atrop 2.5-0.025 mg 1 tab PO BID@0900,209911/17/19 02/16/20 [Lomotil] Pregabalin [Lyrica] 75 mg PO BID@0900,209911/17/19 02/16/20 Gentamicin 0.1% Cream 1 applic TOPICAL BID 01/19/20 02/16/20 HYDROcodone/APAP 5-325MG [[place] 1 tab PO BID PRN 01/19/20 02/16/20 5-325] Insulin Glulisine [Apidra] See Protocol SQ TID@0800,1200,1700 01/19/20 02/16/20 Meclizine [Antivert] 25 mg PO QID@09,,,01/19/20 02/16/20 Mupirocin 2% Oint [Bactroban 2% 1 applic TOPICAL HS 01/19/20 02/16/20 Oint] Triamcinolone 0.5% Cream [Kenalog 1 applic TOPICAL DAILY 01/19/20 02/16/20 0.5% Cream] Ampicillin-Sulbactam [Unasyn] 3 gm IVPB Q6HR@00,06,,02/16/20 02/16/20 Atorvastatin [Lipitor] 20 mg PO HS@209902/16/20 02/16/20 Ferrous Sulfate [Feosol] 325 mg PO DAILY@0900 02/16/20 02/16/20 Glucerna Shake 1 can PO BID@0900,1700 02/16/20 02/16/20 Insulin Glargine,Hum.rec.anlog 33 unit SQ HS@209902/16/20 02/16/20 [Basaglar Ursulaikpen U-100] Loperamide HCl [Loperamide] 2 mg PO DAILY PRN 02/16/20 02/16/20 Menthol [Nice Cough Drops] 1 lozenge PO Q2H PRN 02/16/20 02/16/20 guaiFENesin [guaiFENesin Oral 200 mg PO Q4H PRN 02/16/20 02/16/20 Solution] Previous Rx's Medication Instructions Recorded Acetaminophen Tab [Tylenol] 650 mg PO Q6HR PRN tab 01/27/20 Collagenase [Santyl] 1 applic TOPICAL DAILY applic 01/27/20 Allergies Allergy/AdvReac Type Severity Reaction Status Date / Time No Known Allergies Allergy Verified 05/14/20 19:40 Review of Systems ROS Statement: Those systems with pertinent positive or pertinent negative responses have been documented in the HPI. ROS Other: All systems not noted in ROS Statement are negative. Past Medical History Past Medical History: Cancer, Diabetes Mellitus, GERD/Reflux, Hyperlipidemia, Osteoarthritis (OA), Seizure Disorder Additional Past Medical History / Comment(s): Last seizure 6 months ago. 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 Diarrhea occ. 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 Past Anesthesia/Blood Transfusion Reactions: No Reported Reaction Past Psychological History: Depression Smoking Status: Never smoker Past Alcohol Use History: None Reported Past Drug Use History: None Reported - Past Family History Father Additional Family Medical History / Comment(s): AT AGE 57 Mother Family Medical History: Cancer Sister(s) Family Medical History: Diabetes Mellitus General Exam Limitations: no limitations General appearance: alert, in no apparent distress Head exam: Present: atraumatic, normocephalic, normal inspection Eye exam: Present: normal appearance, PERRL, EOMI. Absent: scleral icterus, conjunctival injection, periorbital swelling ENT exam: Present: mucous membranes dry. Absent: normal exam, normal oropharynx, mucous membranes moist Neck exam: Present: normal inspection. Absent: tenderness, meningismus, lymphadenopathy Respiratory exam: Present: normal lung sounds bilaterally. Absent: respiratory distress, wheezes, rales, rhonchi, stridor Cardiovascular Exam: Present: normal rhythm, tachycardia, normal heart sounds. Absent: systolic murmur, diastolic murmur, rubs, gallop, clicks GI/Abdominal exam: Present: soft, tenderness, normal bowel sounds. Absent: distended, guarding, rebound, rigid Back exam: Absent: CVA tenderness (R), CVA tenderness (L) Neurological exam: Present: alert, oriented X3 Skin exam: Present: warm, dry, intact, normal color. Absent: rash Course Vital Signs 05/14/20 05/14/20 05/14/20 19:38 21:40 23:00 Temperature 99.7 F H Pulse Rate 147 H 126 H 117 H Respiratory 18 18 24 Rate Blood Pressure 141/83 170/84 144/66 O2 Sat by Pulse 97 95 95 Oximetry 05/14/20 23:35 Temperature Pulse Rate 115 H Respiratory 18 Rate Blood Pressure 134/70 O2 Sat by Pulse 95 Oximetry EKG Findings - EKG Comments: EKG Findings:: EKG performed at 21:52 sinus tachycardia rate of 134 IN 122 QRS 84 QT/QTC 284/424 Medical Decision Making - Medical Decision Making 59-year-old male presented for nausea vomiting. Patient's found to be slightly tachycardic. Patient was given fluid bolus, antipyretics. Patient continues to have fever with no clear source. There is concern for possible bacteremia. Patient does have hyperglycemia at 385. Patient will be given a dose of Rocephin, blood cultures are drawn patient will be admitted to Dr. chen - Lab Data Result diagrams: 05/14/20 21:56 05/14/20 21:56 Lab Results 05/14/20 05/14/20 05/14/20 Range/Units 21:56 21:56 21:56 WBC 12.8 H (3.8-10.6) k/uL RBC 4.57 (4.30-5.90) m/uL Hgb 11.7 L (13.0-17.5) gm/dL Hct 35.8 L (39.0-53.0) % MCV 78.3 L (80.0-100.0) fL MCH 25.6 (25.0-35.0) pg MCHC 32.6 (31.0-37.0) g/dL RDW 15.3 (11.5-15.5) % Plt Count 508 H (150-450) k/uL MPV 6.4 Neutrophils % 93 % Lymphocytes % 2 % Monocytes % 4 % Eosinophils % 0 % Basophils % 0 % Neutrophils # 11.9 H (1.3-7.7) k/uL Lymphocytes # 0.3 L (1.0-4.8) k/uL Monocytes # 0.5 (0-1.0) k/uL Eosinophils # 0.0 (0-0.7) k/uL Basophils # 0.0 (0-0.2) k/uL Microcytosis Slight VBG pH (7.31-7.41) VBG pCO2 (37-51) mmHg VBG HCO3 (24-28) mmol/L Sodium 128 L (137-145) mmol/L Potassium 4.4 (3.5-5.1) mmol/L Chloride 88 L (98-107) mmol/L Carbon Dioxide 26 (22-30) mmol/L Anion Gap 14 mmol/L BUN 13 (9-20) mg/dL Creatinine 0.65 L (0.66-1.25) mg/dL Est GFR (CKD-EPI)AfAm >90 (>60 ml/min/1.73 sqM) Est GFR (CKD-EPI)NonAf >90 (>60 ml/min/1.73 sqM) Glucose 385 H (74-99) mg/dL Plasma Lactic Acid Michael (0.7-2.0) mmol/L Calcium 9.1 (8.4-10.2) mg/dL Total Bilirubin 0.3 (0.2-1.3) mg/dL AST 19 (17-59) U/L ALT 11 (4-49) U/L Alkaline Phosphatase 142 H (38-126) U/L Troponin I (0.000-0.034) ng/mL Total Protein 7.7 (6.3-8.2) g/dL Albumin 3.9 (3.5-5.0) g/dL Amylase 43 (30-110) U/L Lipase 43 (23-300) U/L Urine Color Light Yellow Urine Appearance Clear (Clear) Urine pH 5.5 (5.0-8.0) Ur Specific Worth 1.028 (1.001-1.035) Urine Protein 1+ H (Negative) Urine Glucose (UA) 4+ H (Negative) Urine Ketones 2+ H (Negative) Urine Blood Small H (Negative) Urine Nitrite Negative (Negative) Urine Bilirubin Negative (Negative) Urine Urobilinogen <2.0 (<2.0) mg/dL Ur Leukocyte Esterase Negative (Negative) Urine RBC 1 (0-5) /hpf Urine WBC 5 (0-5) /hpf Coronavirus (PCR) (Not Detectd) 05/14/20 05/14/20 05/14/20 Range/Units 21:56 21:56 21:56 WBC (3.8-10.6) k/uL RBC (4.30-5.90) m/uL Hgb (13.0-17.5) gm/dL Hct (39.0-53.0) % MCV (80.0-100.0) fL MCH (25.0-35.0) pg MCHC (31.0-37.0) g/dL RDW (11.5-15.5) % Plt Count (150-450) k/uL MPV Neutrophils % % Lymphocytes % % Monocytes % % Eosinophils % % Basophils % % Neutrophils # (1.3-7.7) k/uL Lymphocytes # (1.0-4.8) k/uL Monocytes # (0-1.0) k/uL Eosinophils # (0-0.7) k/uL Basophils # (0-0.2) k/uL Microcytosis VBG pH (7.31-7.41) VBG pCO2 (37-51) mmHg VBG HCO3 (24-28) mmol/L Sodium (137-145) mmol/L Potassium (3.5-5.1) mmol/L Chloride (98-107) mmol/L Carbon Dioxide (22-30) mmol/L Anion Gap mmol/L BUN (9-20) mg/dL Creatinine (0.66-1.25) mg/dL Est GFR (CKD-EPI)AfAm (>60 ml/min/1.73 sqM) Est GFR (CKD-EPI)NonAf (>60 ml/min/1.73 sqM) Glucose (74-99) mg/dL Plasma Lactic Acid Michael 1.6 (0.7-2.0) mmol/L Calcium (8.4-10.2) mg/dL Total Bilirubin (0.2-1.3) mg/dL AST (17-59) U/L ALT (4-49) U/L Alkaline Phosphatase (38-126) U/L Troponin I <0.012 (0.000-0.034) ng/mL Total Protein (6.3-8.2) g/dL Albumin (3.5-5.0) g/dL Amylase (30-110) U/L Lipase (23-300) U/L Urine Color Urine Appearance (Clear) Urine pH (5.0-8.0) Ur Specific Worth (1.001-1.035) Urine Protein (Negative) Urine Glucose (UA) (Negative) Urine Ketones (Negative) Urine Blood (Negative) Urine Nitrite (Negative) Urine Bilirubin (Negative) Urine Urobilinogen (<2.0) mg/dL Ur Leukocyte Esterase (Negative) Urine RBC (0-5) /hpf Urine WBC (0-5) /hpf Coronavirus (PCR) Not Detected (Not Detectd) 05/14/20 Range/Units 21:56 WBC (3.8-10.6) k/uL RBC (4.30-5.90) m/uL Hgb (13.0-17.5) gm/dL Hct (39.0-53.0) % MCV (80.0-100.0) fL MCH (25.0-35.0) pg MCHC (31.0-37.0) g/dL RDW (11.5-15.5) % Plt Count (150-450) k/uL MPV Neutrophils % % Lymphocytes % % Monocytes % % Eosinophils % % Basophils % % Neutrophils # (1.3-7.7) k/uL Lymphocytes # (1.0-4.8) k/uL Monocytes # (0-1.0) k/uL Eosinophils # (0-0.7) k/uL Basophils # (0-0.2) k/uL Microcytosis VBG pH 7.50 H (7.31-7.41) VBG pCO2 36 L (37-51) mmHg VBG HCO3 27 (24-28) mmol/L Sodium (137-145) mmol/L Potassium (3.5-5.1) mmol/L Chloride (98-107) mmol/L Carbon Dioxide (22-30) mmol/L Anion Gap mmol/L BUN (9-20) mg/dL Creatinine (0.66-1.25) mg/dL Est GFR (CKD-EPI)AfAm (>60 ml/min/1.73 sqM) Est GFR (CKD-EPI)NonAf (>60 ml/min/1.73 sqM) Glucose (74-99) mg/dL Plasma Lactic Acid Michael (0.7-2.0) mmol/L Calcium (8.4-10.2) mg/dL Total Bilirubin (0.2-1.3) mg/dL AST (17-59) U/L ALT (4-49) U/L Alkaline Phosphatase (38-126) U/L Troponin I (0.000-0.034) ng/mL Total Protein (6.3-8.2) g/dL Albumin (3.5-5.0) g/dL Amylase (30-110) U/L Lipase (23-300) U/L Urine Color Urine Appearance (Clear) Urine pH (5.0-8.0) Ur Specific Worth (1.001-1.035) Urine Protein (Negative) Urine Glucose (UA) (Negative) Urine Ketones (Negative) Urine Blood (Negative) Urine Nitrite (Negative) Urine Bilirubin (Negative) Urine Urobilinogen (<2.0) mg/dL Ur Leukocyte Esterase (Negative) Urine RBC (0-5) /hpf Urine WBC (0-5) /hpf Coronavirus (PCR) (Not Detectd) Disposition Clinical Impression: Fever of unknown origin, Tachycardia, Hyperglycemia, Nausea & vomiting, Dehydration Disposition: ADMITTED IP TO THIS [facility] Condition: Serious Referrals: Helen Chen MD [Primary Care Provider] - 1-2 days
[2020-05-14 23:57] LABS: Glucose,Whole Blood 276 mg/dL (75-99)
[2020-05-15] MEDS: SODIUM CHLORIDE 0.9% 1,000 ML IV SCH ×3 (00:17→21:22)
[2020-05-15 00:23] LABS: Acetaminophen <10.0 ug/mL; Salicylate <1.0 mg/dL
[2020-05-15 00:43] LABS: Amphetamine Screen,Urine Not Detected (NotDetected); Barbiturate Screen,Urine Detected (NotDetected); Benzodiazepines Screen,Urine Not Detected (NotDetected); Cocaine Screen,Urine Not Detected (NotDetected); Methadone Screen, Urine Not Detected (NotDetected); Opiate Screen,Urine Not Detected (NotDetected); Oxycodone Screen, Urine Not Detected (NotDetected); Phencyclidine Screen,Urine Not Detected (NotDetected); Tricyclic Antidepressant,Urine Not Detected (NotDetected); Urn Cannabinoid Scrn Not Detected (NotDetected)
[2020-05-15] MEDS ORDERED: IBUPROFEN 600 MG TAB PO STA (00:56)
[2020-05-15 08:07] LABS: Glucose,Whole Blood 129 mg/dL (75-99)
[2020-05-15] MEDS: INSULIN ASPART (NovoLOG) 100 UNIT/ML VIAL SQ SCH ×4 (08:26→21:22)
[2020-05-15] MEDS ORDERED: HYDROcodone/APAP 5-325MG 1 EACH TAB PO PRN (10:17)
[2020-05-15 10:42] LABS: Basophils % (A) 0 %; Eosinophils % (A) 0 %; HCT 34.7 % (39.0-53.0); HGB 11.2 gm/dL (13.0-17.5); Lymphocytes # (A) 0.5 k/uL (1.0-4.8); Lymphocytes % (A) 4 %; MCHC 32.4 g/dL (31.0-37.0); MCV 80.5 fL (80.0-100.0); Mean Platelet Volume 6.4; Monocytes # (A) 0.5 k/uL (0-1.0); Monocytes % (A) 4 %; Neutrophils % (A) 92 %; Platelet Count 443 k/uL (150-450); RBC 4.31 m/uL (4.30-5.90); RDW 15.2 % (11.5-15.5); WBC 13.1 k/uL (3.8-10.6)
--- NOTE | 2020-05-15 11:09 | CT ---
EXAMINATION TYPE: CT sinus wo con DATE OF EXAM: 05/15/2020 COMPARISON: None HISTORY: Fever CT DLP: 285.4 mGycm. Automated Exposure Control for Dose Reduction was Utilized. TECHNIQUE: CT scan of the sinuses is performed without contrast, axial images are obtained, coronal r eformatted images are also reviewed. FINDINGS: The paranasal sinuses remarkable for minimal inflammatory change in the left maxillary sin us, ethmoid air cells. The ostiomeatal complex is patent bilaterally on the coronal images. Visualized portion of mastoid air cells show no abnormal opacification. The globes are intact bilate rally. IMPRESSION: Minimal inflammatory change left maxillary sinus and ethmoid air cells
[2020-05-15] MEDS: GENTAMICIN 0.1% CREAM 15 GM TUBE TOPICAL SCH ×2 (11:15→21:25)
[2020-05-15] MEDS: INSULIN DETEMIR (LEVEMIR) 100 UNIT/ML SYR SQ SCH (11:15)
[2020-05-15] MEDS: TRIAMCINOLONE ACET 0.5% CREAM 15 GM TUBE TOPICAL SCH (11:15)
[2020-05-15 12:15] LABS: Glucose,Whole Blood 129 mg/dL (75-99)
[2020-05-15] MEDS: PANTOPRAZOLE 40 MG TABLET PO SCH (12:45)
[2020-05-15] MEDS: MECLIZINE 25 MG TAB PO SCH ×3 (12:45→21:22)
[2020-05-15] MEDS ORDERED: VANCOMYCIN IV PER PHARMACY 1 EACH MISC MISCELLANE PRN (15:07)
[2020-05-15] MEDS ORDERED: VANCOMYCIN 1,000 MG in SODIUM CHLORIDE 0.9% 250 ML IVPB ONE (16:00)
[2020-05-15 16:45] LABS: Glucose,Whole Blood 110 mg/dL (75-99)
[2020-05-15] MEDS: PREGABALIN 50 MG CAP PO SCH (17:08)
--- NOTE | 2020-05-15 18:54 | P.HPIM ---
History of Present Illness H&P Date: 05/15/20 Chief Complaint: febrile illness Pietro Ryder, is a 59-year-old male who presented to [facility] emergency room with a chief complaint of generalized weakness and fever he was evaluated in emergency room chest x-ray and urinalysis were done and did not reveal any evidence of acute infectious process computed tomography scan of the abdomen and pelvis was also done and did not reveal a source of infection patient was started on IV antibiotic Rocephin and was admitted to observation unit patient has known history of chronic ulcers on bilateral lower extremities at this time he also has a superficial ulcer on the right shoulder area. Patient was evaluated in observation unit his blood culture came back positive for gram-positive cocci IV vancomycin was added to medication regimen and infectious disease consultation was requested patient was admitted to inpatient medical floor. Patient has a known history of insulin-dependent diabetes mellitus, history of seizure disorder, he was admitted to [facility] in January 2020 for infected lower extremity wounds and sepsis. On review of systems patient is complaining of generalized weakness and fever otherwise he denies any complaints there is no headache or dizziness no chest pain no shortness of breath no cough no nausea or vomiting no abdominal pain no diarrhea no blood in the stools no burning with urination no frequency or urgency and no hematuria Past Medical History Past Medical History: Cancer, Diabetes Mellitus, GERD/Reflux, Hyperlipidemia, Osteoarthritis (OA), Seizure Disorder Additional Past Medical History / Comment(s): IDDM type 1, wounds to upper back from scratching and L leg-seen at [facility], past L lower extremity cellulitis with sepsis, L wrist cancerous tumor removed, past seizure over 6 months ago, arthritis L knee, vertigo, occasional diarrhea, pt cannot recall why he takes lyrica. 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 Past Anesthesia/Blood Transfusion Reactions: No Reported Reaction Smoking Status: Never smoker - Past Family History Father Family Medical History: Myocardial Infarction (CO) Additional Family Medical History / Comment(s): Father of a CO at the age of 57yrs. Mother Family Medical History: Cancer Additional Family Medical History / Comment(s): Mother from cancer at the age of 61 or 62 . Pt cannot recall type of cancer. Sister(s) Family Medical History: Diabetes Mellitus Additional Family Medical History / Comment(s): Sister had DM type 1. She is . Medications and Allergies Home Medications Medication Instructions Recorded Confirmed Type Phenytoin Sodium Extended 200 mg PO BID 11/17/16 05/15/20 History [Dilantin] Omeprazole 20 mg PO DAILY 06/13/17 05/15/20 History Pioglitazone HCl [Actos] 15 mg PO DAILY 10/03/18 05/15/20 History Diphenox-Atrop 2.5-0.025 mg 1 tab PO BID PRN 11/17/19 05/15/20 History [Lomotil] Gentamicin 0.1% Cream 1 applic TOPICAL BID 01/19/20 05/15/20 History HYDROcodone/APAP 5-325MG [[place] 1 tab PO BID PRN 01/19/20 05/15/20 History 5-325] Meclizine [Antivert] 25 mg PO QID 01/19/20 05/15/20 History Triamcinolone 0.5% Cream [Kenalog 1 applic TOPICAL DAILY 01/19/20 05/15/20 History 0.5% Cream] Loperamide HCl [Loperamide] 2 mg PO DAILY PRN 02/16/20 05/15/20 History Collagenase [Santyl] 1 applic TOPICAL DAILY 05/15/20 05/15/20 History Insulin Glargine [Lantus] 25 unit SQ DAILY 05/15/20 05/15/20 History Insulin Lispro [Admelog] See Protocol SQ AC-TID 05/15/20 05/15/20 History Pregabalin [Lyrica] 50 mg PO DAILY 05/15/20 05/15/20 History Rosuvastatin [Crestor] 10 mg PO DAILY 05/15/20 05/15/20 History Allergies Allergy/AdvReac Type Severity Reaction Status Date / Time No Known Allergies Allergy Verified 05/15/20 07:05 Physical Exam Vitals: Vital Signs Temp Pulse Resp BP Pulse Ox 05/15/20 06:20 98.1 F 85 22 113/62 98 05/15/20 03:00 98.7 F 05/15/20 01:12 101.1 F H 05/14/20 23:45 101.9 F H 113 H 05/14/20 23:35 115 H 18 134/70 95 05/14/20 23:00 117 H 24 144/66 95 05/14/20 21:40 126 H 18 170/84 95 05/14/20 19:38 99.7 F H 147 H 18 141/83 97 Intake and Output 05/14/20 05/15/20 05/15/20 22:59 06:59 14:59 Other: Weight 49.895 kg 49.895 kg In general patient is alert and oriented 3 in no apparent distress HEENT head normocephalic and atraumatic Neck supple no JVD no goiter no lymphadenopathy no carotid bruit Chest exam reveals a few scattered rhonchi no wheezing Cardiac exam reveals regular heart sounds no gallops no murmurs Abdomen is soft nontender no organomegaly with normal bowel sounds Lower extremity exam reveals bilateral lower extremity ulcers on the left larger than on the right patient has also a superficial ulcer on the right shoulder area Neurological examination reveals no gross focal deficit Results CBC & Chem 7: 05/15/20 10:29 05/14/20 21:56 Labs: Abnormal Lab Results - Last 24 Hours (Table) 05/14/20 05/14/20 05/14/20 Range/Units 21:56 21:56 21:56 WBC 12.8 H (3.8-10.6) k/uL Hgb 11.7 L (13.0-17.5) gm/dL Hct 35.8 L (39.0-53.0) % MCV 78.3 L (80.0-100.0) fL Plt Count 508 H (150-450) k/uL Neutrophils # 11.9 H (1.3-7.7) k/uL Lymphocytes # 0.3 L (1.0-4.8) k/uL VBG pH (7.31-7.41) VBG pCO2 (37-51) mmHg Sodium 128 L (137-145) mmol/L Chloride 88 L (98-107) mmol/L Creatinine 0.65 L (0.66-1.25) mg/dL Glucose 385 H (74-99) mg/dL POC Glucose (mg/dL) (75-99) mg/dL Alkaline Phosphatase 142 H (38-126) U/L Urine Protein 1+ H (Negative) Urine Glucose (UA) 4+ H (Negative) Urine Ketones 2+ H (Negative) Urine Blood Small H (Negative) Ur Barbiturates Screen (NotDetected) 05/14/20 05/14/20 05/14/20 Range/Units 21:56 21:56 23:53 WBC (3.8-10.6) k/uL Hgb (13.0-17.5) gm/dL Hct (39.0-53.0) % MCV (80.0-100.0) fL Plt Count (150-450) k/uL Neutrophils # (1.3-7.7) k/uL Lymphocytes # (1.0-4.8) k/uL VBG pH 7.50 H (7.31-7.41) VBG pCO2 36 L (37-51) mmHg Sodium (137-145) mmol/L Chloride (98-107) mmol/L Creatinine (0.66-1.25) mg/dL Glucose (74-99) mg/dL POC Glucose (mg/dL) 276 H (75-99) mg/dL Alkaline Phosphatase (38-126) U/L Urine Protein (Negative) Urine Glucose (UA) (Negative) Urine Ketones (Negative) Urine Blood (Negative) Ur Barbiturates Screen Detected H (NotDetected) 05/15/20 Range/Units 08:06 WBC (3.8-10.6) k/uL Hgb (13.0-17.5) gm/dL Hct (39.0-53.0) % MCV (80.0-100.0) fL Plt Count (150-450) k/uL Neutrophils # (1.3-7.7) k/uL Lymphocytes # (1.0-4.8) k/uL VBG pH (7.31-7.41) VBG pCO2 (37-51) mmHg Sodium (137-145) mmol/L Chloride (98-107) mmol/L Creatinine (0.66-1.25) mg/dL Glucose (74-99) mg/dL POC Glucose (mg/dL) 129 H (75-99) mg/dL Alkaline Phosphatase (38-126) U/L Urine Protein (Negative) Urine Glucose (UA) (Negative) Urine Ketones (Negative) Urine Blood (Negative) Ur Barbiturates Screen (NotDetected) Thrombosis Risk Factor Assmnt - Choose All That Apply Any of the Below Risk Factors Present?: Yes Each Factor Represents 1 point: Age 41-60 years Other Risk Factors: Yes Each Risk Factor Represents 2 Points: Malignancy Other congenital or acquired thrombophilia - If yes, enter type in comment: No Thrombosis Risk Factor Assessment Total Risk Factor Score: 3 Thrombosis Risk Factor Assessment Level: Moderate Risk Assessment and Plan Plan: 1. Febrile illness was positive blood culture suggestive of sepsis 2. History of bilateral lower extremity open wounds with previous infection rule out osteomyelitis 3. Underlying history of insulin-dependent diabetes Cristi's 4. Underlying history of seizure disorder 5. Underlying history of gastroesophageal reflux disease 6. Underlying history of peripheral neuropathy 7. Underlying history of hyperlipidemia 8. Previous history of depression At this time patient is admitted to medical floor He was started on IV antibiotic Rocephin and then IV vancomycin was added For DVT prophylaxis subcu Lovenox For GI prophylaxis continue with omeprazole Infectious disease consultation requested will follow closely
--- NOTE | 2020-05-15 19:00 | ECHOF ---
Referral Reason:fever MEASUREMENTS -------- HEIGHT: 154.9 cm WEIGHT: 49.9 kg BP: 113/62 RVIDd: 2.8 cm (< 3.3) IVSd: 0.7 cm (0.6 - 1.1) LVIDd: 4.2 cm (3.9 - 5.3) LVPWd: 0.7 cm (0.6 - 1.1) IVSs: 1.2 cm LVIDs: 3.0 cm LVPWs: 1.3 cm LA Diam: 2.7 cm (2.7 - 3.8) LAESV Index (A-L): 24.54 ml/m Ao Diam: 3.0 cm (2.0 - 3.7) AV Cusp: 1.7 cm (1.5 - 2.6) MV EXCURSION: 16.703 mm (> 18.000) MV EF SLOPE: 95 mm/s (70 - 150) EPSS: 0.3 cm MV E Giuseppe: 1.19 m/s MV DecT: 157 ms MV A Giuseppe: 1.10 m/s MV E/A Ratio: 1.08 RAP: 5.00 mmHg RVSP: 25.72 mmHg FINDINGS -------- Sinus rhythm. This was a technically adequate study. The left ventricular size is normal. Left ventricular wall thickness is normal. Overall left vent ricular systolic function is normal with, an EF between 55 - 60 %. The diastolic filling pattern is normal for the age of the patient 12.91. The right ventricle is normal in size. Normal LA size by volume 22+/-6 ml/m2. The right atrial size is normal. Interatrial and interventricular septum intact. The aortic valve is trileaflet, and appears structurally normal. No aortic stenosis or regurgitation. The mitral valve is normal. There is trace to mild mitral regurgitation. The tricuspid valve appears structurally normal. Mild tricuspid regurgitation present. Right vent ricular systolic pressure is normal at < 35 mmHg. Trace/mild (physiologic) pulmonic regurgitation. The aortic root size is normal. Normal inferior vena cava with normal inspiratory collapse consistent with estimated right atrial pre ssure of 5 mmHg. There is no pericardial effusion. CONCLUSIONS -------- 1. Left ventricular wall thickness is normal. 2. Overall left ventricular systolic function is normal with, an EF between 55 - 60 %. 3. Normal LA size by volume 22+/-6 ml/m2. 4. The aortic valve is trileaflet, and appears structurally normal. No aortic stenosis or regurgitati on. 5. There is trace to mild mitral regurgitation. 6. Mild tricuspid regurgitation present. 7. Trace/mild (physiologic) pulmonic regurgitation. 8. There is no pericardial effusion. [facility] MANAGER: Yaz Sanchez RDCS
[2020-05-15 20:00] LABS: Glucose,Whole Blood 139 mg/dL (75-99)
[2020-05-15] MEDS: ENOXAPARIN 40 MG/0.4 ML SYRINGE SQ SCH (21:22)
[2020-05-15] MEDS: PHENYTOIN SODIUM EXTENDED 100 MG CAP PO SCH (21:22)
[2020-05-15 23:04] LABS: Glucose,Whole Blood 59 mg/dL (75-99)
[2020-05-15 23:22] LABS: Glucose,Whole Blood 69 mg/dL (75-99)
[2020-05-15 23:38] LABS: Glucose,Whole Blood 97 mg/dL (75-99)
[2020-05-16] MEDS: SODIUM CHLORIDE 0.9% 1,000 ML IV SCH ×2 (00:03→17:10)
[2020-05-16] MEDS: VANCOMYCIN 1,000 MG in SODIUM CHLORIDE 0.9% 250 ML IVPB SCH ×3 (00:03→17:10)
--- NOTE | 2020-05-16 06:06 | CONS ---
CONSULTATION DATE OF SERVICE: 05/15/2020 REASON FOR CONSULTATION: Fever and bacteremia. HISTORY OF PRESENT ILLNESS: The patient is a 59-year-old male presenting to the ER at [facility] last night for evaluation of generalized weakness and fever. This patient's symptoms have been going on for about a day before presentation to the hospital. The patient denies having any headache or URI symptoms. The patient denies having any chest pain, shortness of breath or cough. No nausea, no vomiting. No abdominal pain or diarrhea. The patient did have a chronic ulceration of the lower extremity for which the patient is was evaluated in the wound care center and currently treatment has been TheraHoney. On presentation to the hospital, the patient did have a fever of 101.9 degrees Fahrenheit. The patient was mildly tachycardic. The patient did have a white count of 13.1. The patient's urine was negative. Melton PCR was negative. The patient did have a chest x-ray that was negative for any acute infiltrate. CT of the abdomen and pelvis was negative for any acute abnormality. The patient was started on Rocephin. He was admitted to the hospital. Subsequently blood culture drawn came back positive with gram-positive cocci. Infectious Disease was consulted for further management of antibiotic therapy. REVIEW OF SYSTEMS: Positive points have been mentioned in HPI. Rest of the systems are negative. PAST MEDICAL HISTORY: Diabetes mellitus, GERD, hyperlipidemia, osteoarthritis, seizure disorder, previous history of MRSA infection left leg. PAST SURGICAL HISTORY: Tonsillectomy, a cyst removed from the left wrist. SOCIAL HISTORY: Denies smoking, drinking or drug use. FAMILY HISTORY: Mother with history of cancer. ALLERGIES: No known drug allergies. MEDICATIONS: The patient is currently on Tylenol, [place], Lipitor, Rocephin 2 grams daily. He is on Lovenox, NovoLog, Levemir, Antivert, Narcan, Zofran, Protonix, Dilantin, Actos, Lyrica, Vancomycin, Pharmacy to dose. PHYSICAL EXAMINATION: VITAL SIGNS: Blood pressure 137/72 with a pulse of 92, temperature 99.5, T-max is 101.1. He is 97% on room air. GENERAL DESCRIPTION: A middle-aged male lying in bed in no distress. No tachypnea or accessory muscles of respiration use. HEENT: Examination shows slight pallor. No scleral icterus. Oral mucous membrane is dry. NECK: Trachea central. No thyromegaly. LUNGS: Unlabored breathing, clear to auscultation anteriorly. No wheeze or crackle. HEART: S1, S2. Regular rate and rhythm. ABDOMEN: Soft, no tenderness. No guarding or rigidity. EXTREMITIES: No edema of the feet. The patient has a wound to the left leg foot area with minimal surrounding swelling, redness and some foul-smelling drainage. NEUROLOGICAL: Patient is awake, alert, oriented. Mood and affect normal. LABS: Hemoglobin 11.1, white count 13.1, BUN of 13, creatinine 0.65. Blood culture with Gram- positive cocci. DIAGNOSTIC IMPRESSION: Patient admitted to the hospital with sepsis. This patient did have a fever, elevated white count. Source is likely left lower extremity wound infection, now with evidence of secondary bacteremia possibly Staph aureus/MRSA, as the patient did have previous history of MRSA infection. Currently no other obvious focus of infection. PLAN: 1. Blood cultures will be repeated to document clearance of bacteremia. 2. Vancomycin, Pharmacy to dose target of 15 while waiting for the culture to finalize. 3. We will follow on clinical condition and culture to further adjust medication if needed. Thank you for this consultation. Will follow this patient along with you. MMODL / IJN: [id number] /
[2020-05-16 07:32] LABS: Glucose,Whole Blood 255 mg/dL (75-99)
[2020-05-16] MEDS: INSULIN ASPART (NovoLOG) 100 UNIT/ML VIAL SQ SCH ×4 (07:48→21:44)
[2020-05-16] MEDS: INSULIN DETEMIR (LEVEMIR) 100 UNIT/ML SYR SQ SCH (07:48)
[2020-05-16] MEDS: ATORVASTATIN 20 MG TAB PO SCH (07:48)
[2020-05-16] MEDS: PANTOPRAZOLE 40 MG TABLET PO SCH (07:48)
[2020-05-16] MEDS: PREGABALIN 50 MG CAP PO SCH (07:48)
[2020-05-16] MEDS: PHENYTOIN SODIUM EXTENDED 100 MG CAP PO SCH ×2 (07:49→21:42)
[2020-05-16] MEDS: PIOGLITAZONE 15 MG TAB PO SCH (07:50)
[2020-05-16] MEDS: GENTAMICIN 0.1% CREAM 15 GM TUBE TOPICAL SCH (09:11)
[2020-05-16] MEDS: MECLIZINE 25 MG TAB PO SCH ×4 (09:24→21:41)
[2020-05-16 10:21] LABS: Basophils # (A) 0.02 X 10*3/uL (0.00-0.10); Basophils % (A) 0.2 %; Eosinophils # (A) 0 X 10*3/uL (0.04-0.35); Eosinophils % (A) 0 %; HCT 29.7 % (39.6-50.0); HGB 9.2 g/dL (13.0-17.0); Lymphocytes # (A) 0.94 X 10*3/uL (0.90-5.00); MCV 80.7 fL (80.0-97.0); Mean Platelet Volume 9.2 fL (9.5-12.2); Monocytes # (A) 0.79 X 10*3/uL (0.20-1.00); Monocytes % (A) 8.4 %; Neutrophils # (A) 7.65 X 10*3/uL (1.80-7.70); Platelet Count 406 X 10*3/uL (140-440); RBC 3.68 X 10*6/uL (4.40-5.60); RDW 15.1 % (11.5-14.5); WBC 9.44 X 10*3/uL (4.50-10.00)
[2020-05-16] MEDS: COLLAGENASE 250 UNIT/GM OINTMENT 30 GM TUBE TOPICAL SCH ×2 (10:42→11:00)
[2020-05-16] MEDS: TRIAMCINOLONE ACET 0.5% CREAM 15 GM TUBE TOPICAL SCH (10:55)
[2020-05-16 11:12] LABS: African American GFR (CKD) 113.3 (60.0-200.0); Albumin/Globulin Ratio 1.36 (1.60-3.17); Anion Gap 7.8 mmol/L (4.00-12.00); Calcium 7.9 mg/dL (8.7-10.3); Carbon Dioxide 27.2 mmol/L (21.6-31.8); Globulin 2.2 g/dL (1.6-3.3); Non-African American GFR(CKD) 97.8 (60.0-200.0); Potassium 3.5 mmol/L (3.5-5.5); Total Bilirubin 0.1 mg/dL (0.3-1.2); Total Protein 5.2 g/dL (6.2-8.2)
[2020-05-16 11:42] LABS: Glucose,Whole Blood 131 mg/dL (75-99)
[2020-05-16 13:29] VITALS: BMI 20.7
--- NOTE | 2020-05-16 14:41 | P.PN ---
Subjective Progress Note Date: 05/16/20 Pietro Ryder, is a 59-year-old male who presented to [facility] emergency room with a chief complaint of generalized weakness and fever he was evaluated in emergency room chest x-ray and urinalysis were done and did not reveal any evidence of acute infectious process computed tomography scan of the abdomen and pelvis was also done and did not reveal a source of infection patient was started on IV antibiotic Rocephin and was admitted to observation unit patient has known history of chronic ulcers on bilateral lower extremities at this time he also has a superficial ulcer on the right shoulder area. Patient was evaluated in observation unit his blood culture came back positive for gram-positive cocci IV vancomycin was added to medication regimen and infectious disease consultation was requested patient was admitted to inpatient medical floor. Patient has a known history of insulin-dependent diabetes mellitus, history of seizure disorder, he was admitted to [facility] in January 2020 for infected lower extremity wounds and sepsis. On review of systems patient is complaining of generalized weakness and fever otherwise he denies any complaints there is no headache or dizziness no chest pain no shortness of breath no cough no nausea or vomiting no abdominal pain no diarrhea no blood in the stools no burning with urination no frequency or urgency and no hematuria on 05/16/2020 patient alert and oriented 3 currently resting comfortably in bed. Patient reports that he feels significantly improved since admission. Patient remains on IV vancomycin.infectious disease following. Per infectious likely source left lower extremity wound infection. Patient will remain on vancomycin and blood cultures repeated to document clearance of bacteremia. rene austin has been afebrile for 24 hours. White blood cell count within normal limits. At this time patient denies chest pain or shortness breath. Patient denies nausea vomiting or diarrhea. Patient denies any urinary burning or frequency Objective - Vital Signs Vital signs: Vital Signs Temp 97.8 F 05/16/20 11:40 Pulse 86 05/16/20 11:40 Resp 16 05/16/20 11:40 BP 131/72 05/16/20 11:40 Pulse Ox 96 05/16/20 11:40 Intake & Output 05/15/20 05/16/20 05/16/20 18:59 06:59 18:59 Intake Total 1300 1090 Balance 1300 1090 Weight 49.895 kg 49.895 kg Intake: Intake, IV Titration 1300 850 Amount Sodium Chloride 0.9% 1, 1200 600 000 ml @ 100 mls/hr IV . Q10H ERIN Rx#:[id number] Vancomycin 1,000 mg In 250 Sodium Chloride 0.9% 250 ml @ 125 mls/hr IVPB Q8H ERIN Rx#:[id number] cefTRIAXone 2 gm In 100 Sodium Chloride 0.9% 50 ml @ 100 mls/hr IVPB Q24HR ERIN Rx#:[id number] Oral 240 Other: Voiding Method Toilet Toilet # Voids 3 1 - Exam In general patient is alert and oriented 3 in no apparent distress HEENT head normocephalic and atraumatic Neck supple no JVD no goiter no lymphadenopathy no carotid bruit Chest exam reveals a few scattered rhonchi no wheezing Cardiac exam reveals regular heart sounds no gallops no murmurs Abdomen is soft nontender no organomegaly with normal bowel sounds Lower extremity exam reveals bilateral lower extremity ulcers on the left larger than on the right patient has also a superficial ulcer on the right shoulder area Neurological examination reveals no gross focal deficit - Labs CBC & Chem 7: 05/16/20 05:12 05/16/20 05:12 Labs: Abnormal Lab Results - Last 24 Hours (Table) 05/15/20 05/15/20 05/15/20 Range/Units 16:43 19:59 23:03 RBC (4.40-5.60) X 10*6/uL Hgb (13.0-17.0) g/dL Hct (39.6-50.0) % MCH (27.0-32.0) pg MCHC (32.0-37.0) g/dL RDW (11.5-14.5) % MPV (9.5-12.2) fL Eosinophils # (0.04-0.35) X 10*3/uL Glucose (70-110) mg/dL POC Glucose (mg/dL) 110 H 139 H 59 L (75-99) mg/dL Calcium (8.7-10.3) mg/dL Total Bilirubin (0.3-1.2) mg/dL Total Protein (6.2-8.2) g/dL Albumin (3.80-4.90) g/dL Albumin/Globulin Ratio (1.60-3.17) g/dL 0305/16/20 05/16/20 Range/Units 23:21 05:12 05:12 RBC 3.68 L (4.40-5.60) X 10*6/uL Hgb 9.2 L (13.0-17.0) g/dL Hct 29.7 L (39.6-50.0) % MCH 25.0 L (27.0-32.0) pg MCHC 31.0 L (32.0-37.0) g/dL RDW 15.1 H (11.5-14.5) % MPV 9.2 L (9.5-12.2) fL Eosinophils # 0 L (0.04-0.35) X 10*3/uL Glucose 214 H (70-110) mg/dL POC Glucose (mg/dL) 69 L (75-99) mg/dL Calcium 7.9 L (8.7-10.3) mg/dL Total Bilirubin 0.1 L (0.3-1.2) mg/dL Total Protein 5.2 L (6.2-8.2) g/dL Albumin 3.00 L (3.80-4.90) g/dL Albumin/Globulin Ratio 1.36 L (1.60-3.17) g/dL 05/16/20 05/16/20 Range/Units 07:30 11:40 RBC (4.40-5.60) X 10*6/uL Hgb (13.0-17.0) g/dL Hct (39.6-50.0) % MCH (27.0-32.0) pg MCHC (32.0-37.0) g/dL RDW (11.5-14.5) % MPV (9.5-12.2) fL Eosinophils # (0.04-0.35) X 10*3/uL Glucose (70-110) mg/dL POC Glucose (mg/dL) 255 H 131 H (75-99) mg/dL Calcium (8.7-10.3) mg/dL Total Bilirubin (0.3-1.2) mg/dL Total Protein (6.2-8.2) g/dL Albumin (3.80-4.90) g/dL Albumin/Globulin Ratio (1.60-3.17) g/dL Microbiology - Last 24 Hours (Table) 05/14/20 23:52 Blood Culture Gram Stain - Preliminary Blood Blood Culture - Preliminary Presumptive Staph aureus 05/15/20 00:07 Blood Culture Gram Stain - Preliminary Blood Blood Culture - Preliminary Staphylococcus aureus 05/15/20 11:30 Gram Stain - Preliminary Ankle - Left Wound Culture - Preliminary 05/15/20 00:07 Blood Culture - Final Blood 05/14/20 23:52 Blood Culture - Final Blood Assessment and Plan Plan: 1. Febrile illness was positive blood culture suggestive of sepsis 2. History of bilateral lower extremity open wounds with previous infection rule out osteomyelitis. 3. Underlying history of insulin-dependent diabetes Cristi's 4. Underlying history of seizure disorder 5. Underlying history of gastroesophageal reflux disease 6. Underlying history of peripheral neuropathy 7. Underlying history of hyperlipidemia 8. Previous history of depression At this time patient is admitted to medical floor IV vancomycin For DVT prophylaxis subcu Lovenox For GI prophylaxis continue with omeprazole repeat blood cultures and wound cultures ordered per ID
[2020-05-16 17:06] LABS: Glucose,Whole Blood 75 mg/dL (75-99)
[2020-05-16 21:17] LABS: Glucose,Whole Blood 144 mg/dL (75-99)
[2020-05-16] MEDS: ENOXAPARIN 40 MG/0.4 ML SYRINGE SQ SCH (21:41)
[2020-05-17] MEDS: GENTAMICIN 0.1% CREAM 15 GM TUBE TOPICAL SCH ×3 (00:17→21:15)
[2020-05-17] MEDS: VANCOMYCIN 1,000 MG in SODIUM CHLORIDE 0.9% 250 ML IVPB SCH ×2 (00:38→08:25)
--- NOTE | 2020-05-17 02:01 | PN ---
PROGRESS NOTE DATE OF SERVICE: 05/16/2020 REASON FOR FOLLOW UP: Staph aureus bacteremia. INTERVAL HISTORY: Patient is currently afebrile. Patient is breathing more comfortably. Patient denies having any chest pain or shortness of breath or cough. No nausea. No vomiting. No abdominal pain. No worsening pain to the left heel area. PHYSICAL EXAMINATION: Blood pressure 122/75, pulse of 93, temperature 99. He is 95% on room air. General description is a middle-aged male lying in bed in no distress. Respiratory system: Unlabored breathing, clear to auscultation anteriorly. Heart S1, S2. Regular rate and rhythm. Abdomen: Soft, no tenderness. LABS: Hemoglobin 9.2, white count 9.44, with a BUN of 12, creatinine 0.8. DIAGNOSTIC IMPRESSION AND PLAN: Patient with Staph aureus bacteremia secondary to left lower extremity wound infection, as he grew the same pathogen from those areas. The patient is covered with vancomycin to continue while waiting for the culture to finalize. Blood cultures repeated to document clearance of bacteremia and continue supportive care. MMODL / IJN: [id number] /
[2020-05-17] MEDS: SODIUM CHLORIDE 0.9% 1,000 ML IV SCH ×3 (04:15→21:14)
[2020-05-17] MEDS ORDERED: VANCOMYCIN TROUGH DUE 1 EACH MISC MISCELLANE ONE (07:00)
[2020-05-17] MEDS: PANTOPRAZOLE 40 MG TABLET PO SCH (07:33)
[2020-05-17] MEDS: ATORVASTATIN 20 MG TAB PO SCH (07:33)
[2020-05-17] MEDS: PREGABALIN 50 MG CAP PO SCH (07:33)
[2020-05-17] MEDS: MECLIZINE 25 MG TAB PO SCH ×4 (07:33→21:14)
[2020-05-17 07:34] LABS: Glucose,Whole Blood 320 mg/dL (75-99)
[2020-05-17] MEDS: PIOGLITAZONE 15 MG TAB PO SCH (07:34)
[2020-05-17] MEDS: PHENYTOIN SODIUM EXTENDED 100 MG CAP PO SCH ×2 (07:34→21:14)
[2020-05-17] MEDS: TRIAMCINOLONE ACET 0.5% CREAM 15 GM TUBE TOPICAL SCH (07:35)
[2020-05-17] MEDS: INSULIN ASPART (NovoLOG) 100 UNIT/ML VIAL SQ SCH ×4 (08:24→21:20)
[2020-05-17] MEDS: INSULIN DETEMIR (LEVEMIR) 100 UNIT/ML SYR SQ SCH (08:35)
[2020-05-17 10:08] LABS: ALT 11 U/L (4-49); AST 22 U/L (17-59); African American GFR (CKD) >90 (>60 ml/min/1.73 sqM); Albumin 2.6 g/dL (3.5-5.0); Albumin/Globulin Ratio 0.8; Alkaline Phosphatase 98 U/L (38-126); Anion Gap 7 mmol/L; Blood Urea Nitrogen 10 mg/dL (9-20); Carbon Dioxide 28 mmol/L (22-30); Chloride 99 mmol/L (98-107); Globulin 3.1 g/dL; Glucose 289 mg/dL (74-99); Non-African American GFR(CKD) >90 (>60 ml/min/1.73 sqM); Potassium 3.2 mmol/L (3.5-5.1); Sodium 134 mmol/L (137-145); Total Bilirubin 0.2 mg/dL (0.2-1.3); Total Protein 5.7 g/dL (6.3-8.2)
--- NOTE | 2020-05-17 10:21 | P.PN ---
Subjective Progress Note Date: 05/17/20 Pietro Ryder, is a 59-year-old male who presented to [facility] emergency room with a chief complaint of generalized weakness and fever he was evaluated in emergency room chest x-ray and urinalysis were done and did not reveal any evidence of acute infectious process computed tomography scan of the abdomen and pelvis was also done and did not reveal a source of infection patient was started on IV antibiotic Rocephin and was admitted to observation unit patient has known history of chronic ulcers on bilateral lower extremities at this time he also has a superficial ulcer on the right shoulder area. Patient was evaluated in observation unit his blood culture came back positive for gram-positive cocci IV vancomycin was added to medication regimen and infectious disease consultation was requested patient was admitted to inpatient medical floor. Patient has a known history of insulin-dependent diabetes mellitus, history of seizure disorder, he was admitted to [facility] in January 2020 for infected lower extremity wounds and sepsis. On review of systems patient is complaining of generalized weakness and fever otherwise he denies any complaints there is no headache or dizziness no chest pain no shortness of breath no cough no nausea or vomiting no abdominal pain no diarrhea no blood in the stools no burning with urination no frequency or urgency and no hematuria on 05/16/2020 patient alert and oriented 3 currently resting comfortably in bed. Patient reports that he feels significantly improved since admission. Patient remains on IV vancomycin.infectious disease following. Per infectious likely source left lower extremity wound infection. Patient will remain on vancomycin and blood cultures repeated to document clearance of bacteremia. rene austin has been afebrile for 24 hours. White blood cell count within normal limits. At this time patient denies chest pain or shortness breath. Patient denies nausea vomiting or diarrhea. Patient denies any urinary burning or frequency. On 05/17/2020 patient was seen and examined on the medical floor he is alert and oriented 3 in no apparent distress there is no fever or chills no headache or dizziness no chest pain no shortness of breath no cough no nausea or vomiting no abdominal pain no diarrhea no blood in the stools no burning with urination no frequency or urgency and no hematuria. Patient is being treated for sepsis with bacteremia he is maintained on IV antibiotics sepsis is probably related to his lower extremity ulcers infectious disease following Objective - Vital Signs Vital signs: Vital Signs Temp 98.4 F 05/17/20 04:44 Pulse 87 05/17/20 08:00 Resp 14 05/17/20 08:00 BP 170/84 05/17/20 04:44 Pulse Ox 94 L 05/17/20 04:44 Intake & Output 05/16/20 05/17/20 05/17/20 18:59 06:59 18:59 Intake Total 1300 Balance 1300 Weight 49.895 kg Intake: Intake, IV Titration 1300 Amount Sodium Chloride 0.9% 1, 800 000 ml @ 100 mls/hr IV . Q10H ERIN Rx#:[id number] Vancomycin 1,000 mg In 500 Sodium Chloride 0.9% 250 ml @ 125 mls/hr IVPB Q8H ERIN Rx#:[id number] Other: Voiding Method Toilet Toilet Toilet # Voids 2 3 3 # Bowel Movements 0 0 - Exam In general patient is alert and oriented 3 in no apparent distress HEENT head normocephalic and atraumatic Neck supple no JVD no goiter no lymphadenopathy no carotid bruit Chest exam reveals a few scattered rhonchi no wheezing Cardiac exam reveals regular heart sounds no gallops no murmurs Abdomen is soft nontender no organomegaly with normal bowel sounds Lower extremity exam reveals bilateral lower extremity ulcers on the left larger than on the right patient has also a superficial ulcer on the right shoulder area Neurological examination reveals no gross focal deficit - Labs CBC & Chem 7: 05/16/20 05:12 05/17/20 07:03 Labs: Abnormal Lab Results - Last 24 Hours (Table) 05/16/20 05/16/20 05/16/20 Range/Units 05:12 05:12 11:40 RBC 3.68 L (4.40-5.60) X 10*6/uL Hgb 9.2 L (13.0-17.0) g/dL Hct 29.7 L (39.6-50.0) % MCH 25.0 L (27.0-32.0) pg MCHC 31.0 L (32.0-37.0) g/dL RDW 15.1 H (11.5-14.5) % MPV 9.2 L (9.5-12.2) fL Eosinophils # 0 L (0.04-0.35) X 10*3/uL Glucose 214 H (70-110) mg/dL POC Glucose (mg/dL) 131 H (75-99) mg/dL Calcium 7.9 L (8.7-10.3) mg/dL Total Bilirubin 0.1 L (0.3-1.2) mg/dL Total Protein 5.2 L (6.2-8.2) g/dL Albumin 3.00 L (3.80-4.90) g/dL Albumin/Globulin Ratio 1.36 L (1.60-3.17) g/dL 05/16/20 05/17/20 Range/Units 21:11 07:31 RBC (4.40-5.60) X 10*6/uL Hgb (13.0-17.0) g/dL Hct (39.6-50.0) % MCH (27.0-32.0) pg MCHC (32.0-37.0) g/dL RDW (11.5-14.5) % MPV (9.5-12.2) fL Eosinophils # (0.04-0.35) X 10*3/uL Glucose (70-110) mg/dL POC Glucose (mg/dL) 144 H 320 H (75-99) mg/dL Calcium (8.7-10.3) mg/dL Total Bilirubin (0.3-1.2) mg/dL Total Protein (6.2-8.2) g/dL Albumin (3.80-4.90) g/dL Albumin/Globulin Ratio (1.60-3.17) g/dL Microbiology - Last 24 Hours (Table) 05/15/20 11:30 Gram Stain - Preliminary Ankle - Left Wound Culture - Preliminary Presumptive Staph aureus 05/15/20 15:35 Blood Culture - Preliminary Blood No Growth after 24 hours 05/14/20 23:52 Blood Culture Gram Stain - Preliminary Blood Blood Culture - Preliminary Presumptive Staph aureus 05/15/20 00:07 Blood Culture Gram Stain - Preliminary Blood Blood Culture - Preliminary Staphylococcus aureus Assessment and Plan Plan: 1. Febrile illness was positive blood culture suggestive of sepsis 2. History of bilateral lower extremity open wounds with previous infection rule out osteomyelitis. 3. Underlying history of insulin-dependent diabetes Cristi's 4. Underlying history of seizure disorder 5. Underlying history of gastroesophageal reflux disease 6. Underlying history of peripheral neuropathy 7. Underlying history of hyperlipidemia 8. Previous history of depression At this time patient is admitted to medical floor IV vancomycin For DVT prophylaxis subcu Lovenox For GI prophylaxis continue with omeprazole repeat blood cultures and wound cultures ordered per ID
[2020-05-17] MEDS ORDERED: Potassium Replacement Protocol 1 EACH MISC MISCELLANE PRN (10:22)
[2020-05-17 11:06] LABS: Basophils # (A) 0.04 X 10*3/uL (0.00-0.10); Basophils % (A) 0.4 %; Eosinophils # (A) 0.02 X 10*3/uL (0.04-0.35); Eosinophils % (A) 0.2 %; HCT 30.3 % (39.6-50.0); HGB 9.7 g/dL (13.0-17.0); Lymphocytes # (A) 1.36 X 10*3/uL (0.90-5.00); Lymphocytes % (A) 13.9 %; MCH 25.4 pg (27.0-32.0); MCV 79.3 fL (80.0-97.0); Mean Platelet Volume 9.2 fL (9.5-12.2); Monocytes # (A) 1.04 X 10*3/uL (0.20-1.00); Monocytes % (A) 10.6 %; Neutrophils # (A) 7.29 X 10*3/uL (1.80-7.70); Neutrophils % (A) 74.6 %; Platelet Count 451 X 10*3/uL (140-440); RBC 3.82 X 10*6/uL (4.40-5.60); RDW 14.9 % (11.5-14.5); WBC 9.78 X 10*3/uL (4.50-10.00)
[2020-05-17] MEDS: COLLAGENASE 250 UNIT/GM OINTMENT 30 GM TUBE TOPICAL SCH (11:16)
[2020-05-17 12:48] LABS: Glucose,Whole Blood 260 mg/dL (75-99)
[2020-05-17] MEDS ORDERED: LIDOCAINE 1% INJ 10MG/ML (20 ML MDV) SQ ONE (14:56)
--- NOTE | 2020-05-17 16:52 | P.GSHP ---
History of Present Illness 59-year-old gentleman, patient is well known to me from the wound clinic. Patient had a left tendocalcaneus infection for that patient went for extensive debridement and patient has been coming to the wound clinic for follow-up pat ient to has developed a abscess on the left heel. Patient also has a history of vomiting abdominal pain to has been admitted for further evaluation. Patient has a blood culture positive and positive On examination neck is supple no bruit appreciated Chest is clear good entry both lungs Abdomen soft nontender Femorals are palpable bilateral patient has a wound on the left leg at the which is granulating but there is area of 4 heel which she is tender and there is some fluctuation noted most likely this is a abscess we will arrange for I&D deep culture Past Medical History Past Medical History: Cancer, Diabetes Mellitus, GERD/Reflux, Hyperlipidemia, Osteoarthritis (OA), Seizure Disorder Additional Past Medical History / Comment(s): IDDM type 1, wounds to upper back from scratching and L leg-seen at [facility], past L lower extremity cellulitis with sepsis, L wrist cancerous tumor removed, past seizure over 6 months ago, arth ritis L knee, vertigo, occasional diarrhea, pt cannot recall why he takes lyrica. 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 Past Anesthesia/Blood Transfusion Reactions: No Reported Reaction Smoking Status: Never smoker - Past Family History Father Family Medical History: Myocardial Infarction (OH) Additional Family Medical History / Comment(s): Father of a [place] at the age of 57yrs. Mother Family Medical History: Cancer Additional Family Medical History / Comment(s): Mother from cancer at the age of 61 or 62 . Pt cannot recall type of cancer. Sister(s) Family Medical History: Diabetes Mellitus Additional Family Medical History / Comment(s): Sister had DM type 1. She is . Medications and Allergies Home Medications Medication Instructions Recorded Confirmed Type Phenytoin Sodium Extended 200 mg PO BID 11/17/16 05/15/20 History [Dilantin] Omeprazole 20 mg PO DAILY 06/13/17 05/15/20 History Pioglitazone HCl [Actos] 15 mg PO DAILY 10/03/18 05/15/20 History Diphenox-Atrop 2.5-0.025 mg 1 tab PO BID PRN 11/17/19 05/15/20 History [Lomotil] Gentamicin 0.1% Cream 1 applic TOPICAL BID 01/19/20 05/15/20 History HYDROcodone/APAP 5-325MG [[place] 1 tab PO BID PRN 01/19/20 05/15/20 History 5-325] Meclizine [Antivert] 25 mg PO QID 01/19/20 05/15/20 History Triamcinolone 0.5% Cream [Kenalog 1 applic TOPICAL DAILY 01/19/20 05/15/20 History 0.5% Cream] Loperamide HCl [Loperamide] 2 mg PO DAILY PRN 02/16/20 05/15/20 History Collagenase [Santyl] 1 applic TOPICAL DAILY 05/15/20 05/15/20 History Insulin Glargine [Lantus] 25 unit SQ DAILY 05/15/20 05/15/20 History Insulin Lispro [Admelog] See Protocol SQ AC-TID 05/15/20 05/15/20 History Pregabalin [Lyrica] 50 mg PO DAILY 05/15/20 05/15/20 History Rosuvastatin [Crestor] 10 mg PO DAILY 05/15/20 05/15/20 History Allergies Allergy/AdvReac Type Severity Reaction Status Date / Time No Known Allergies Allergy Verified 05/15/20 07:05 Surgical - Exam Vital Signs Temp Pulse Resp BP Pulse Ox 99.7 F H 147 H 18 141/83 97 05/14/20 19:38 05/14/20 19:38 05/14/20 19:38 05/14/20 19:38 05/14/20 19:38 Results - Labs 05/17/20 07:03 05/17/20 07:03 Abnormal Lab Results - Last 24 Hours (Table) 05/16/20 05/17/20 05/17/20 Range/Units 21:11 07:03 07:03 RBC 3.82 L (4.40-5.60) X 10*6/uL Hgb 9.7 L (13.0-17.0) g/dL Hct 30.3 L (39.6-50.0) % MCV 79.3 L (80.0-97.0) fL MCH 25.4 L (27.0-32.0) pg RDW 14.9 H (11.5-14.5) % Plt Count 451 H (140-440) X 10*3/uL MPV 9.2 L (9.5-12.2) fL Monocytes # 1.04 H (0.20-1.00) X 10*3/uL Eosinophils # 0.02 L (0.04-0.35) X 10*3/uL Sodium 134 L (137-145) mmol/L Potassium 3.2 L (3.5-5.1) mmol/L Creatinine 0.56 L (0.66-1.25) mg/dL Glucose 289 H (74-99) mg/dL POC Glucose (mg/dL) 144 H (75-99) mg/dL Calcium 8.0 L (8.4-10.2) mg/dL Total Protein 5.7 L (6.3-8.2) g/dL Albumin 2.6 L (3.5-5.0) g/dL 05/17/20 05/17/20 Range/Units 07:31 12:30 RBC (4.40-5.60) X 10*6/uL Hgb (13.0-17.0) g/dL Hct (39.6-50.0) % MCV (80.0-97.0) fL MCH (27.0-32.0) pg RDW (11.5-14.5) % Plt Count (140-440) X 10*3/uL MPV (9.5-12.2) fL Monocytes # (0.20-1.00) X 10*3/uL Eosinophils # (0.04-0.35) X 10*3/uL Sodium (137-145) mmol/L Potassium (3.5-5.1) mmol/L Creatinine (0.66-1.25) mg/dL Glucose (74-99) mg/dL POC Glucose (mg/dL) 320 H 260 H (75-99) mg/dL Calcium (8.4-10.2) mg/dL Total Protein (6.3-8.2) g/dL Albumin (3.5-5.0) g/dL Microbiology - Last 24 Hours (Table) 05/14/20 23:52 Blood Culture Gram Stain - Final Blood Blood Culture - Final Staphylococcus aureus 05/15/20 00:07 Blood Culture Gram Stain - Final Blood Blood Culture - Final Staphylococcus aureus 05/15/20 11:30 Gram Stain - Preliminary Ankle - Left Wound Culture - Preliminary Presumptive Staph aureus 05/15/20 15:35 Blood Culture - Preliminary Blood No Growth after 24 hours Diabetes panel 05/17/20 Range/Units 07:03 Sodium 134 L (137-145) mmol/L Potassium 3.2 L (3.5-5.1) mmol/L Chloride 99 (98-107) mmol/L Carbon Dioxide 28 (22-30) mmol/L BUN 10 (9-20) mg/dL Creatinine 0.56 L (0.66-1.25) mg/dL Glucose 289 H (74-99) mg/dL Calcium 8.0 L (8.4-10.2) mg/dL AST 22 (17-59) U/L ALT 11 (4-49) U/L Alkaline Phosphatase 98 (38-126) U/L Total Protein 5.7 L (6.3-8.2) g/dL Albumin 2.6 L (3.5-5.0) g/dL Calcium panel 05/17/20 Range/Units 07:03 Calcium 8.0 L (8.4-10.2) mg/dL Albumin 2.6 L (3.5-5.0) g/dL Pituitary panel 05/17/20 Range/Units 07:03 Sodium 134 L (137-145) mmol/L Potassium 3.2 L (3.5-5.1) mmol/L Chloride 99 (98-107) mmol/L Carbon Dioxide 28 (22-30) mmol/L BUN 10 (9-20) mg/dL Creatinine 0.56 L (0.66-1.25) mg/dL Glucose 289 H (74-99) mg/dL Calcium 8.0 L (8.4-10.2) mg/dL Adrenal panel 05/17/20 Range/Units 07:03 Sodium 134 L (137-145) mmol/L Potassium 3.2 L (3.5-5.1) mmol/L Chloride 99 (98-107) mmol/L Carbon Dioxide 28 (22-30) mmol/L BUN 10 (9-20) mg/dL Creatinine 0.56 L (0.66-1.25) mg/dL Glucose 289 H (74-99) mg/dL Calcium 8.0 L (8.4-10.2) mg/dL Total Bilirubin 0.2 (0.2-1.3) mg/dL AST 22 (17-59) U/L ALT 11 (4-49) U/L Alkaline Phosphatase 98 (38-126) U/L Total Protein 5.7 L (6.3-8.2) g/dL Albumin 2.6 L (3.5-5.0) g/dL
--- NOTE | 2020-05-17 16:54 | P.PCN ---
Description of Procedure: Diagnoses is abscess left heel Postop same procedure is a I&D of the abscess patient was seen patient has a chronic wound on the left lower extremity his tendocalcaneus has been excised left leg was prepped and draped applied sterile manner 1% lidocaine were infiltrated using sharp knife we did the cruciate incision pus came out and deep culture was taken some debridement last tissue was removed wound was i irrigated with saline and Aquacel silver rope applied to the wound which which change daily if patient goes home on the weekend patient will follow in the wound clinic at [facility]
[2020-05-17 17:35] LABS: Glucose,Whole Blood 211 mg/dL (75-99)
--- NOTE | 2020-05-17 20:16 | PN ---
PROGRESS NOTE DATE OF SERVICE: 05/17/2020 REASON FOR FOLLOWUP: Bacteremia secondary to infected wound to the left heel area. INTERVAL HISTORY: The patient is currently afebrile. The patient is breathing comfortably. The patient denies having any chest pain or shortness of breath or cough. No abdominal pain or any diarrhea. PHYSICAL EXAMINATION: Blood pressure 122/71 with a pulse of 80, temperature 98.1. He is 93% on room air. General description is a middle-aged male lying in bed in no distress. RESPIRATORY SYSTEM: Unlabored breathing. Clear to auscultation anteriorly. HEART: S1, S2. Regular rate and rhythm. ABDOMEN: Soft. No tenderness. Left heel infected wound with slough tissue, some surrounding redness. LABS: Hemoglobin 9.7, white count 9.78, BUN of 10, creatinine 0.56. DIAGNOSTIC IMPRESSION AND PLAN: Patient with MSSA bacteremia secondary to left infected wound, status post debridement. Blood culture has been negative so far. He is currently covered with cefazolin. He will need a PICC line for outpatient antibiotic therapy. Continue with supportive care. MMODL / IJN: [id number] /
[2020-05-17 20:57] LABS: Glucose,Whole Blood 124 mg/dL (75-99)
[2020-05-17] MEDS: ENOXAPARIN 40 MG/0.4 ML SYRINGE SQ SCH (21:13)
[2020-05-18 06:45] LABS: ALT 8 U/L (4-49); AST 18 U/L (17-59); African American GFR (CKD) >90 (>60 ml/min/1.73 sqM); Albumin 2.7 g/dL (3.5-5.0); Albumin/Globulin Ratio 0.9; Alkaline Phosphatase 104 U/L (38-126); Anion Gap 7 mmol/L; Blood Urea Nitrogen 10 mg/dL (9-20); Calcium 8.1 mg/dL (8.4-10.2); Carbon Dioxide 31 mmol/L (22-30); Chloride 97 mmol/L (98-107); Glucose 223 mg/dL (74-99); Non-African American GFR(CKD) >90 (>60 ml/min/1.73 sqM); Potassium 3.7 mmol/L (3.5-5.1); Sodium 135 mmol/L (137-145); Total Bilirubin 0.2 mg/dL (0.2-1.3); Total Protein 5.7 g/dL (6.3-8.2)
[2020-05-18 07:35] LABS: Glucose,Whole Blood 310 mg/dL (75-99)
[2020-05-18 07:39] LABS: Basophils % (A) 0 %; Eosinophils # (A) 0.1 k/uL (0-0.7); Eosinophils % (A) 1 %; HCT 30.2 % (39.0-53.0); HGB 9.8 gm/dL (13.0-17.5); Lymphocytes # (A) 1.6 k/uL (1.0-4.8); Lymphocytes % (A) 18 %; MCH 25.5 pg (25.0-35.0); MCHC 32.5 g/dL (31.0-37.0); MCV 78.5 fL (80.0-100.0); Mean Platelet Volume 6.8; Microcytosis Slight; Monocytes # (A) 0.6 k/uL (0-1.0); Monocytes % (A) 7 %; Neutrophils # (A) 6.3 k/uL (1.3-7.7); Neutrophils % (A) 72 %; Platelet Count 468 k/uL (150-450); RBC 3.85 m/uL (4.30-5.90); WBC 8.8 k/uL (3.8-10.6)
[2020-05-18] MEDS: PREGABALIN 50 MG CAP PO SCH (07:47)
[2020-05-18] MEDS: ATORVASTATIN 20 MG TAB PO SCH (07:47)
[2020-05-18] MEDS: PANTOPRAZOLE 40 MG TABLET PO SCH (07:47)
[2020-05-18] MEDS: INSULIN ASPART (NovoLOG) 100 UNIT/ML VIAL SQ SCH ×4 (07:47→22:06)
[2020-05-18] MEDS: INSULIN DETEMIR (LEVEMIR) 100 UNIT/ML SYR SQ SCH (07:48)
[2020-05-18] MEDS: PHENYTOIN SODIUM EXTENDED 100 MG CAP PO SCH ×2 (07:48→22:06)
[2020-05-18] MEDS: MECLIZINE 25 MG TAB PO SCH ×4 (07:48→22:06)
[2020-05-18] MEDS: PIOGLITAZONE 15 MG TAB PO SCH (07:49)
[2020-05-18] MEDS: TRIAMCINOLONE ACET 0.5% CREAM 15 GM TUBE TOPICAL SCH (07:50)
[2020-05-18] MEDS: COLLAGENASE 250 UNIT/GM OINTMENT 30 GM TUBE TOPICAL SCH (07:51)
[2020-05-18] MEDS: GENTAMICIN 0.1% CREAM 15 GM TUBE TOPICAL SCH (08:21)
[2020-05-18] MEDS: SODIUM CHLORIDE 0.9% 1,000 ML IV SCH ×2 (08:22→17:17)
--- NOTE | 2020-05-18 10:31 | P.PN ---
Subjective Progress Note Date: 05/18/20 Pietro Ryder, is a 59-year-old male who presented to [facility] emergency room with a chief complaint of generalized weakness and fever he was evaluated in emergency room chest x-ray and urinalysis were done and did not reveal any evidence of acute infectious process computed tomography scan of the abdomen and pelvis was also done and did not reveal a source of infection patient was started on IV antibiotic Rocephin and was admitted to observation unit patient has known history of chronic ulcers on bilateral lower extremities at this time he also has a superficial ulcer on the right shoulder area. Patient was evaluated in observation unit his blood culture came back positive for gram-positive cocci IV vancomycin was added to medication regimen and infectious disease consultation was requested patient was admitted to inpatient medical floor. Patient has a known history of insulin-dependent diabetes mellitus, history of seizure disorder, he was admitted to [facility] in January 2020 for infected lower extremity wounds and sepsis. On review of systems patient is complaining of generalized weakness and fever otherwise he denies any complaints there is no headache or dizziness no chest pain no shortness of breath no cough no nausea or vomiting no abdominal pain no diarrhea no blood in the stools no burning with urination no frequency or urgency and no hematuria on 05/16/2020 patient alert and oriented 3 currently resting comfortably in bed. Patient reports that he feels significantly improved since admission. Patient remains on IV vancomycin.infectious disease following. Per infectious likely source left lower extremity wound infection. Patient will remain on vancomycin and blood cultures repeated to document clearance of bacteremia. rene austin has been afebrile for 24 hours. White blood cell count within normal limits. At this time patient denies chest pain or shortness breath. Patient denies nausea vomiting or diarrhea. Patient denies any urinary burning or frequency. On 05/17/2020 patient was seen and examined on the medical floor he is alert and oriented 3 in no apparent distress there is no fever or chills no headache or dizziness no chest pain no shortness of breath no cough no nausea or vomiting no abdominal pain no diarrhea no blood in the stools no burning with urination no frequency or urgency and no hematuria. Patient is being treated for sepsis with bacteremia he is maintained on IV antibiotics sepsis is probably related to his lower extremity ulcers infectious disease following On 05/18/2020 patient is alert and oriented 3. Patient is currently resting comfortably in bed. Status post I&D with Dr. Guerrier on 05/17/2020. PICC line has been ordered per ID recommendation. Patient denies any chest pain or shortness breath. Patient denies nausea vomiting or diarrhea. Patient denies any urinary burning or frequency. Per case management patient will be arranged with [facility] for outpatient antibiotics Objective - Vital Signs Vital signs: Vital Signs Temp 98.7 F 05/18/20 04:57 Pulse 89 05/18/20 04:57 Resp 16 05/18/20 04:57 BP 149/75 05/18/20 04:57 Pulse Ox 96 05/18/20 04:57 Intake & Output 05/17/20 05/18/20 05/18/20 18:59 06:59 18:59 Intake Total 1110 Balance 1110 Intake: Oral 1110 Other: Voiding Method Toilet Toilet # Voids 3 3 # Bowel Movements 0 0 0 - Exam In general patient is alert and oriented 3 in no apparent distress HEENT head normocephalic and atraumatic Neck supple no JVD no goiter no lymphadenopathy no carotid bruit Chest exam reveals a few scattered rhonchi no wheezing Cardiac exam reveals regular heart sounds no gallops no murmurs Abdomen is soft nontender no organomegaly with normal bowel sounds Lower extremity exam reveals bilateral lower extremity ulcers on the left larger than on the right patient has also a superficial ulcer on the right shoulder area Neurological examination reveals no gross focal deficit - Labs CBC & Chem 7: 05/18/20 05:28 05/18/20 05:28 Labs: Abnormal Lab Results - Last 24 Hours (Table) 05/17/20 05/17/20 05/17/20 Range/Units 07:03 12:30 17:34 RBC 3.82 L (4.40-5.60) X 10*6/uL Hgb 9.7 L (13.0-17.0) g/dL Hct 30.3 L (39.6-50.0) % MCV 79.3 L (80.0-97.0) fL MCH 25.4 L (27.0-32.0) pg RDW 14.9 H (11.5-14.5) % Plt Count 451 H (140-440) X 10*3/uL MPV 9.2 L (9.5-12.2) fL Monocytes # 1.04 H (0.20-1.00) X 10*3/uL Eosinophils # 0.02 L (0.04-0.35) X 10*3/uL Sodium (137-145) mmol/L Chloride (98-107) mmol/L Carbon Dioxide (22-30) mmol/L Glucose (74-99) mg/dL POC Glucose (mg/dL) 260 H 211 H (75-99) mg/dL Calcium (8.4-10.2) mg/dL Total Protein (6.3-8.2) g/dL Albumin (3.5-5.0) g/dL 05/17/20 05/18/20 05/18/20 Range/Units 20:55 05:28 05:28 RBC 3.85 L (4.40-5.60) X 10*6/uL Hgb 9.8 L (13.0-17.0) g/dL Hct 30.2 L (39.6-50.0) % MCV 78.5 L (80.0-97.0) fL MCH (27.0-32.0) pg RDW (11.5-14.5) % Plt Count 468 H (140-440) X 10*3/uL MPV (9.5-12.2) fL Monocytes # (0.20-1.00) X 10*3/uL Eosinophils # (0.04-0.35) X 10*3/uL Sodium 135 L (137-145) mmol/L Chloride 97 L (98-107) mmol/L Carbon Dioxide 31 H (22-30) mmol/L Glucose 223 H (74-99) mg/dL POC Glucose (mg/dL) 124 H (75-99) mg/dL Calcium 8.1 L (8.4-10.2) mg/dL Total Protein 5.7 L (6.3-8.2) g/dL Albumin 2.7 L (3.5-5.0) g/dL 05/18/20 Range/Units 07:32 RBC (4.40-5.60) X 10*6/uL Hgb (13.0-17.0) g/dL Hct (39.6-50.0) % MCV (80.0-97.0) fL MCH (27.0-32.0) pg RDW (11.5-14.5) % Plt Count (140-440) X 10*3/uL MPV (9.5-12.2) fL Monocytes # (0.20-1.00) X 10*3/uL Eosinophils # (0.04-0.35) X 10*3/uL Sodium (137-145) mmol/L Chloride (98-107) mmol/L Carbon Dioxide (22-30) mmol/L Glucose (74-99) mg/dL POC Glucose (mg/dL) 310 H (75-99) mg/dL Calcium (8.4-10.2) mg/dL Total Protein (6.3-8.2) g/dL Albumin (3.5-5.0) g/dL Microbiology - Last 24 Hours (Table) 05/17/20 16:10 Gram Stain - Preliminary Ankle - Left Wound Culture - Preliminary 05/17/20 16:10 Anaerobic Culture - Preliminary Ankle - Left 05/15/20 11:30 Gram Stain - Final Ankle - Left Wound Culture - Final Staphylococcus aureus 05/15/20 15:35 Blood Culture - Preliminary Blood No Growth after 48 hours 05/14/20 23:52 Blood Culture Gram Stain - Final Blood Blood Culture - Final Staphylococcus aureus 05/15/20 00:07 Blood Culture Gram Stain - Final Blood Blood Culture - Final Staphylococcus aureus Assessment and Plan Plan: 1. Bacteremia secondary to infected wound left heel area. Status post I&D with Dr. Guerrier on 05/17/2020 2. History of bilateral lower extremity open wounds with previous infection rule out osteomyelitis. 3. Underlying history of insulin-dependent diabetes Cristi's 4. Underlying history of seizure disorder 5. Underlying history of gastroesophageal reflux disease 6. Underlying history of peripheral neuropathy 7. Underlying history of hyperlipidemia 8. Previous history of depression At this time patient is admitted to medical floor IV vancomycin For DVT prophylaxis subcu Lovenox For GI prophylaxis continue with omeprazole repeat blood cultures and wound cultures ordered per ID Per ID patient will need a PICC line for outpatient antibiotic therapy. Plan at this time for discharge patient to follow-up outpatient in office for IV antibiotics PICC line has been ordered
[2020-05-18 12:10] LABS: Glucose,Whole Blood 268 mg/dL (75-99)
--- NOTE | 2020-05-18 14:18 | PN ---
PROGRESS NOTE DATE OF SERVICE: 05/18/2020 REASON FOR FOLLOWUP: MSSA bacteremia secondary to left foot infection. INTERVAL HISTORY: The patient is currently afebrile. The patient is breathing comfortably. The patient denies having any chest pain or shortness of breath or cough. No abdominal pain or pain to the left posterior leg wound area. PHYSICAL EXAMINATION: Blood pressure 154/75 with a pulse of 86, temperature 98.2. He is 92% on room air. General description is a middle-aged male lying in bed in no distress. RESPIRATORY SYSTEM: Unlabored breathing, clear to auscultation anteriorly. HEART: S1, S2. Regular rate and rhythm. ABDOMEN: Soft, no tenderness. Left foot/ wound is currently dressed. Minimal drainage on the dressing. LABS: Hemoglobin 9.8, white count 8.8. BUN of 10, creatinine 0.81. Blood culture repeat has been negative. DIAGNOSTIC IMPRESSION AND PLAN: Patient with MSSA bacteremia secondary to left foot wound infection with concern for deep infection but not extended down to the bone as per discussion with the vascular surgeon. In view of his bacteremia, he needs IV antibiotic therapy with plan for either cefazolin 2 grams q.8 hours or daptomycin 6 mg/kg daily for 4 weeks. PICC line is currently pending. Continue supportive care. MMODL / IJN: [id number] /
[2020-05-18 17:02] LABS: Glucose,Whole Blood 179 mg/dL (75-99)
[2020-05-18 20:04] VITALS: RESP 16
[2020-05-18 21:02] LABS: Glucose,Whole Blood 152 mg/dL (75-99)
[2020-05-18] MEDS: ENOXAPARIN 40 MG/0.4 ML SYRINGE SQ SCH (22:02)
[2020-05-19] MEDS: SODIUM CHLORIDE 0.9% 1,000 ML IV SCH ×2 (04:30→16:02)
[2020-05-19 07:30] LABS: Glucose,Whole Blood 303 mg/dL (75-99)
[2020-05-19 07:56] LABS: Basophils % (A) 0 %; Eosinophils # (A) 0.1 k/uL (0-0.7); Eosinophils % (A) 1 %; HCT 31.6 % (39.0-53.0); HGB 10.4 gm/dL (13.0-17.5); Lymphocytes # (A) 1.1 k/uL (1.0-4.8); Lymphocytes % (A) 15 %; MCH 25.8 pg (25.0-35.0); MCHC 32.8 g/dL (31.0-37.0); MCV 78.7 fL (80.0-100.0); Mean Platelet Volume 6.3; Microcytosis Slight; Monocytes # (A) 0.5 k/uL (0-1.0); Monocytes % (A) 7 %; Neutrophils # (A) 5.7 k/uL (1.3-7.7); Neutrophils % (A) 75 %; Platelet Count 519 k/uL (150-450); RBC 4.02 m/uL (4.30-5.90); RDW 14.9 % (11.5-15.5); WBC 7.5 k/uL (3.8-10.6)
[2020-05-19 08:08] LABS: ALT 6 U/L (4-49); AST 16 U/L (17-59); African American GFR (CKD) >90 (>60 ml/min/1.73 sqM); Albumin 2.8 g/dL (3.5-5.0); Albumin/Globulin Ratio 0.9; Alkaline Phosphatase 109 U/L (38-126); Anion Gap 6 mmol/L; Blood Urea Nitrogen 13 mg/dL (9-20); Calcium 8.3 mg/dL (8.4-10.2); Carbon Dioxide 31 mmol/L (22-30); Chloride 97 mmol/L (98-107); Globulin 3.2 g/dL; Glucose 330 mg/dL (74-99); Non-African American GFR(CKD) >90 (>60 ml/min/1.73 sqM); Sodium 134 mmol/L (137-145); Total Bilirubin 0.2 mg/dL (0.2-1.3)
[2020-05-19] MEDS: PHENYTOIN SODIUM EXTENDED 100 MG CAP PO SCH (08:10)
[2020-05-19] MEDS: ATORVASTATIN 20 MG TAB PO SCH (08:10)
[2020-05-19] MEDS: PIOGLITAZONE 15 MG TAB PO SCH (08:10)
[2020-05-19] MEDS: MECLIZINE 25 MG TAB PO SCH ×2 (08:11→13:29)
[2020-05-19] MEDS: INSULIN ASPART (NovoLOG) 100 UNIT/ML VIAL SQ SCH ×2 (08:11→13:28)
[2020-05-19] MEDS: PANTOPRAZOLE 40 MG TABLET PO SCH (08:11)
[2020-05-19] MEDS: PREGABALIN 50 MG CAP PO SCH (08:11)
[2020-05-19] MEDS: INSULIN DETEMIR (LEVEMIR) 100 UNIT/ML SYR SQ SCH (08:12)
[2020-05-19] MEDS: COLLAGENASE 250 UNIT/GM OINTMENT 30 GM TUBE TOPICAL SCH (08:12)
[2020-05-19] MEDS: TRIAMCINOLONE ACET 0.5% CREAM 15 GM TUBE TOPICAL SCH (08:17)
[2020-05-19] MEDS: LIDOCAINE 1% INJ 10MG/ML (20 ML MDV) SQ ONE ×2 (11:36→11:42)
[2020-05-19] MEDS ORDERED: MIDAZOLAM 2 MG/2 ML VIAL IV ONE (11:39)
[2020-05-19] MEDS ORDERED: IV FLUID CONTINUATION 600 ML IV ONE (11:39)
[2020-05-19] MEDS ORDERED: fentaNYL (PF) 50 MCG/ML 2 ML AMP IV ONE (11:39)
[2020-05-19 12:16] LABS: Glucose,Whole Blood 251 mg/dL (75-99)
[2020-05-19 12:39] VITALS: BP 149/84; PULSE 92; TEMP 97.8
--- NOTE | 2020-05-19 13:37 | P.DS ---
Providers Date of admission: 05/14/20 23:50 Expected date of discharge: 05/19/20 Attending physician: Helen Chen Consults: 05/15/20 10:15 Consult Physician Routine Consulting Provider: Tess Lundy Consult Reason/Comments: fever Do you want consulting provider notified?: Yes 05/17/20 13:08 Consult Physician Routine Consulting Provider: Bladimir Guerrier Consult Reason/Comments: left leg wound , debridemnt and epp cultures Do you want consulting provider notified?: Yes [facility] Diagnosis on Discharge: 1. Bacteremia secondary to infected wound left heel area. Status post I&D with Dr. Guerrier on 05/17/2020 2. History of bilateral lower extremity open wounds with previous infection rule out osteomyelitis. 3. Underlying history of insulin-dependent diabetes Cristi's 4. Underlying history of seizure disorder 5. Underlying history of gastroesophageal reflux disease 6. Underlying history of peripheral neuropathy 7. Underlying history of hyperlipidemia 8. Previous history of depression Hospital course: Pietro Ryder, is a 59-year-old male who presented to [facility] emergency room with a chief complaint of generalized weakness and fever he was evaluated in emergency room chest x-ray and urinalysis were done and did not reveal any evidence of acute infectious process computed tomography scan of the abdomen and pelvis was also done and did not reveal a source of infection patient was started on IV antibiotic Rocephin and was admitted to observation unit patient has known history of chronic ulcers on bilateral lower extremities at this time he also has a superficial ulcer on the right shoulder area. Patient was evaluated in observation unit his blood culture came back positive for gram-positive cocci IV vancomycin was added to medication regimen and infectious disease consultation was requested patient was admitted to inpatient medical floor. Patient has a known history of insulin-dependent diabetes mellitus, history of seizure disorder, he was admitted to [facility] in January 2020 for infected lower extremity wounds and sepsis. On review of systems patient is complaining of generalized weakness and fever otherwise he denies any complaints there is no headache or dizziness no chest pain no shortness of breath no cough no nausea or vomiting no abdominal pain no diarrhea no blood in the stools no burning with urination no frequency or urgency and no hematuria on 05/16/2020 patient alert and oriented 3 currently resting comfortably in bed. Patient reports that he feels significantly improved since admission. Patient remains on IV vancomycin.infectious disease following. Per infectious likely source left lower extremity wound infection. Patient will remain on vancomycin and blood cultures repeated to document clearance of bacteremia. patient has been afebrile for 24 hours. White blood cell count within normal limits. At this time patient denies chest pain or shortness breath. Patient denies nausea vomiting or diarrhea. Patient denies any urinary burning or frequency. On 05/17/2020 patient was seen and examined on the medical floor he is alert and oriented 3 in no apparent distress there is no fever or chills no headache or dizziness no chest pain no shortness of breath no cough no nausea or vomiting no abdominal pain no diarrhea no blood in the stools no burning with urination no frequency or urgency and no hematuria. Patient is being treated for sepsis with bacteremia he is maintained on IV antibiotics sepsis is probably related to his lower extremity ulcers infectious disease following On 05/18/2020 patient is alert and oriented 3. Patient is currently resting comfortably in bed. Status post I&D with Dr. Guerrier on 05/17/2020. PICC line has been ordered per ID recommendation. Patient denies any chest pain or shortness breath. Patient denies nausea vomiting or diarrhea. Patient denies any urinary burning or frequency. Per case management patient will be arranged with [facility] for outpatient antibiotics. On 05/19/2020 patient was seen and examined on the medical floor he is alert and oriented 3 in no apparent distress there is no fever or chills no headache or dizziness no chest pain no shortness of breath no cough no nausea or vomiting no abdominal pain no diarrhea no blood in the stools no burning with urination no frequency or urgency and no hematuria. Patient underwent Maria catheter placement today by Dr. Guerrier, he will receive IV daptomycin as outpatient. Patient can be discharged home today follow up in our office within 1 week Patient Condition at Discharge: Serious Plan - Discharge Summary Discharge Rx Participant: No New Discharge Prescriptions: New DAPTOmycin [Cubicin] 300 mg IVPB Q24HR vial Continue Phenytoin Sodium Extended [Dilantin] 200 mg PO BID Omeprazole 20 mg PO DAILY Pioglitazone HCl [Actos] 15 mg PO DAILY Diphenox-Atrop 2.5-0.025 mg [Lomotil] 1 tab PO BID PRN PRN Reason: Diarrhea Meclizine [Antivert] 25 mg PO QID HYDROcodone/APAP 5-325MG [[place] 5-325] 1 tab PO BID PRN PRN Reason: Pain Gentamicin 0.1% Cream 1 applic TOPICAL BID Triamcinolone 0.5% Cream [Kenalog 0.5% Cream] 1 applic TOPICAL DAILY Loperamide HCl [Loperamide] 2 mg PO DAILY PRN PRN Reason: Diarrhea Rosuvastatin [Crestor] 10 mg PO DAILY Pregabalin [Lyrica] 50 mg PO DAILY Collagenase [Santyl] 1 applic TOPICAL DAILY Insulin Glargine [Lantus] 25 unit SQ DAILY Insulin Lispro [Admelog] See Protocol SQ AC-TID Discharge Medication List Phenytoin Sodium Extended [Dilantin] 200 mg PO BID 11/17/16 [History] Omeprazole 20 mg PO DAILY 06/13/17 [History] Pioglitazone HCl [Actos] 15 mg PO DAILY 10/03/18 [History] Diphenox-Atrop 2.5-0.025 mg [Lomotil] 1 tab PO BID PRN 11/17/19 [History] Gentamicin 0.1% Cream 1 applic TOPICAL BID 01/19/20 [History] HYDROcodone/APAP 5-325MG [[place] 5-325] 1 tab PO BID PRN 01/19/20 [History] Meclizine [Antivert] 25 mg PO QID 01/19/20 [History] Triamcinolone 0.5% Cream [Kenalog 0.5% Cream] 1 applic TOPICAL DAILY 01/19/20 [History] Loperamide HCl [Loperamide] 2 mg PO DAILY PRN 02/16/20 [History] Collagenase [Santyl] 1 applic TOPICAL DAILY 05/15/20 [History] Insulin Glargine [Lantus] 25 unit SQ DAILY 05/15/20 [History] Insulin Lispro [Admelog] See Protocol SQ AC-TID 05/15/20 [History] Pregabalin [Lyrica] 50 mg PO DAILY 05/15/20 [History] Rosuvastatin [Crestor] 10 mg PO DAILY 05/15/20 [History] DAPTOmycin [Cubicin] 300 mg IVPB Q24HR vial 05/19/20 [Rx] Follow up Appointment(s)/Referral(s): [facility],Infusion [NON-STAFF] - As Needed Helen Chen MD [Primary Care Provider] - 1-2 days [facility] Visiting Nurse, [NON-STAFF] - 1-2 Days Patient Instructions/Handouts: Peripherally Inserted Central Catheters and Midline Catheters in... (DC) Activity/Diet/Wound Care/Special Instructions: pt to go to dr lundy office [address], [id number] in the [facility] on Thursday phone number [phone] pt to show up for his infusion at 10AM
--- NOTE | 2020-05-19 14:39 | IR ---
EXAMINATION TYPE: IR cvc insert central tunneled DATE OF EXAM: 05/19/2020 COMPARISON: NONE HISTORY: Fluoroscopy time. Fluoroscopy was provided to the referring clinician.
--- NOTE | 2020-05-19 15:30 | PN ---
PROGRESS NOTE DATE OF SERVICE: 05/19/2020 REASON FOR FOLLOWUP: MSSA bacteremia secondary to left leg wound infection. INTERVAL HISTORY: The patient is currently afebrile. The patient is breathing comfortably. Denies having any chest pain, shortness of breath or cough. No abdominal pain. No diarrhea. Pain to the left lower neck. PHYSICAL EXAMINATION: Blood pressure 149/84, pulse of 90, temperature 97.8. He is 91% on room air. General description is a middle-aged male lying in bed in no distress. RESPIRATORY SYSTEM: Unlabored breathing, clear to auscultation anteriorly. HEART: S1, S2. Regular rate and rhythm. ABDOMEN: Soft, no tenderness. Leg is currently dressed up. No obvious drainage on the dressing. DIAGNOSTIC IMPRESSION AND PLAN: Patient with MSSA bacteremia secondary to left leg wound infection and abscess status post drainage with no evidence of any involvement of the wound. Follow-up blood culture negative. Patient wanted off his infusion to, hence, he was switched to daptomycin for daily dose, currently getting 300 mg, which is 6 mg/kg for four weeks. Local wound care per Vascular Surgery and close outpatient followup. MMODL / IJN: [id number] /
--- NOTE | 2020-05-19 16:02 | PCN ---
PROCEDURE NOTE PREOPERATIVE DIAGNOSIS: Wound the left foot. PROCEDURE PERFORMED: Placement of a Maria catheter for long-term antibiotic. DESCRIPTION OF PROCEDURE: The patient was brought to the refuse laborer. Right side of the neck and chest was prepped and drapes applied in usual sterile manner. 1% lidocaine infiltrated. Ultrasound- guided micropuncture introduced right jugular vein. Micropuncture guidewire was passed and then a tunnel was created. Through the tunnel, we brought 5-Korean Medcomp catheter into the neck incision site. Sheath advanced on the top of the guidewire. Through the sheath, we introduced the catheter. Catheter injection into superior vena caval atrial junction. Flushed with heparin saline and hep-locked, secured with 3-0 nylon. Dressing applied. Patient tolerated the procedure well. MMODL / IJN: [id number] /
== END 2020-05-19 17:35 | disposition home health service (06) | DRG 854 ==
LOC: EC 19:31 → 5NMEDONC 23:50 → 1SOBS 05-15 07:10 → 5NMEDONC 05-15 18:16
PROVIDERS: ADMIT Internal Medicine; ATTEND Internal Medicine
PROC: 0LBT0ZZ Excision of Left Ankle Tendon, Open Approach (ICD-10-PCS; principal; 2020-05-17)
PROC: 02HV33Z Insertion of Infusion Device into Superior Vena Cava, Percutaneous Approach (ICD-10-PCS; 2020-05-19 11:30)
DX: A41.01 Sepsis due to Methicillin susceptible Staphylococcus aureus (principal); L02.612 Cutaneous abscess of left foot; L97.229 Non-pressure chronic ulcer of left calf with unspecified severity; L97.219 Non-pressure chronic ulcer of right calf with unspecified severity; E10.622 Type 1 diabetes mellitus with other skin ulcer; E10.42 Type 1 diabetes mellitus with diabetic polyneuropathy; E10.65 Type 1 diabetes mellitus with hyperglycemia; L98.499 Non-pressure chronic ulcer of skin of other sites with unspecified severity; G40.909 Epilepsy, unspecified, not intractable, without status epilepticus; Z79.4 Long term (current) use of insulin; Z20.822 Contact with and (suspected) exposure to COVID-19; E78.5 Hyperlipidemia, unspecified; K21.9 Gastro-esophageal reflux disease without esophagitis; E86.0 Dehydration; M17.12 Unilateral primary osteoarthritis, left knee; Z79.899 Other long term (current) drug therapy; Z90.89 Acquired absence of other organs; Z86.59 Personal history of other mental and behavioral disorders; Z85.89 Personal history of malignant neoplasm of other organs and systems; Z86.14 Personal history of Methicillin resistant Staphylococcus aureus infection; Z86.19 Personal history of other infectious and parasitic diseases; Z98.890 Other specified postprocedural states; Z82.49 Family history of ischemic heart disease and other diseases of the circulatory system; Z80.9 Family history of malignant neoplasm, unspecified; Z83.3 Family history of diabetes mellitus
CPT/HCPCS: 36415; 36558; 70486; 71046; 74177; 76937; 77001; 80053; 80143; 80179; 80202; 80306; 81001; 82150; 82803; 83605; 83690; 84484; 85025; 87040; 87070; 87075; 87077; 87186; 87205; 87635; 93005; 93306; 96361; 96365; 96375; 99285

== ENCOUNTER 2020-05-28 10:17 | Day surgery (SDC) | payer OTHER ==
--- NOTE | 2020-05-25 12:52 | HP ---
HISTORY AND PHYSICAL This is a 60-year-old gentleman who has come to the wound clinic. He had a tendocalcaneus injury, was infected. Patient had extensive wound debridement. He has been coming to the wound clinic for local wound care. The patient has been scheduled to have a left leg angiogram. MEDICAL HISTORY: History of diabetes mellitus, hyperlipidemia, osteoarthritis, and seizure disorder. PERSONAL HISTORY: Never smoked. FAMILY HISTORY: Family history of diabetes mellitus. PHYSICAL EXAMINATION: NECK: Supple. Trachea central. CHEST: Clear. ABDOMEN: Soft. Femorals are 1+ bilateral. PT, DP by the Doppler. Patient has a chronic wound on the left leg at the tendocalcaneus area that we have been treating with local wound care. PLAN: Left leg angiogram. Risks and complications discussed. MMODL / IJN: [id number] /
[~2020-05-28 10:17] MED LIST changes: +ALPRAZolam 0.25 MG TAB PO PRN; +ASPIRIN 325 MG TAB PO PRN; +HEPARIN SODIUM,PORCINE 10,000 UNIT in SODIUM CHLORIDE 0.9% 1,000 ML IRRIGATION PRN; +HEPARIN SODIUM,PORCINE 2,500 UNIT in SODIUM CHLORIDE 0.9% 250 ML IRRIGATION PRN; -LACTATED RINGERS 1,000 ML IV SCH; -LIDOCAINE 1% (10MG/ML) FOR IV START INTRADERMA PRN; +SODIUM CHLORIDE 0.9% 1,000 ML in EMPTY BAG 1 BAG IV ONE; +ZOLPIDEM 5 MG TAB PO PRN
[2020-05-28] MEDS ORDERED: SODIUM CHLORIDE 0.9% 1,000 ML IV ONE (10:47)
[2020-05-28 10:54] LABS: Glucose,Whole Blood 217 mg/dL (75-99)
[2020-05-28] MEDS ORDERED: INSULIN ASPART (NovoLOG) 100 UNIT/ML VIAL SQ SCH (10:55)
[2020-05-28] MEDS ORDERED: INSULIN ASPART (NovoLOG) 100 UNIT/ML VIAL SQ ONE (10:56)
[2020-05-28 10:59] VITALS: RESP 16; TEMP 97.3
[2020-05-28] MEDS ORDERED: MIDAZOLAM 2 MG/2 ML VIAL IVP ONE ×2 (11:55→11:56)
[2020-05-28] MEDS ORDERED: LIDOCAINE 1% INJ 10MG/ML (20 ML MDV) SQ ONE (11:57)
[2020-05-28] MEDS ORDERED: IOPAMIDOL-250 100ML BTL INTRAARTER ONE (12:20)
[2020-05-28] MEDS ORDERED: DAPTOmycin 500 MG in SODIUM CHLORIDE 0.9% 50 ML IVPB ONE (14:00)
[2020-05-28 15:53] VITALS: BP 139/75; PULSE 102
--- NOTE | 2020-05-28 15:53 | PCN ---
PROCEDURE NOTE PREOPERATIVE DIAGNOSIS: This is a 61-year-old gentleman who has history of chronic wound left ankle. POSTOPERATIVE DIAGNOSIS: This is a 61-year-old gentleman who has history of chronic wound left ankle. PROCEDURE: Left leg angiogram. DESCRIPTION OF PROCEDURE: This patient has a tendocalcaneus injury to the left ankle. He has been coming to the wound clinic for local wound care. The patient was brought to the laborer cement gun placing. Left leg was prepped and drapes were applied in usual sterile manner and 1% lidocaine infiltrated in the left groin area. Ultrasound-guided micropuncture was introduced in left femoral artery. Micropuncture guide was passed and 4-Macanese dilator advanced on top of the guidewire and injection left leg angiogram was performed. Left common iliac was found to be patent. External iliac was patent. Left femoral and profunda were found to be patent. Left SFA is patent then we checked the popliteal and infrapopliteal vessel. The popliteal was found to be patent with trifurcation noted of the anterior tibial, posterior tibial and peroneal. The anterior tibial is patent, but tapers down up to the ankle. Posterior tibial was visualized, which also has some atherosclerosis disease but is patent. IMPRESSION: Iliofemoral popliteal is patent with three-vessel runoff was visualized. The catheter was removed. Pressure was held. Patient tolerated the procedure well. PLAN: Patient going home today. He will follow up in the wound clinic at [facility] next Thursday. MMROBERTL / MICHEALN: [id number] /
--- NOTE | 2020-05-28 15:58 | IR ---
Fluoroscopy HISTORY: Left heel ulcer 0.2 minutes fluoroscopy time supplied to the referring clinician. 535 intraoperative C-arm images do cument the procedure. See dictated report from vascular surgery.
== END 2020-05-28 16:54 | disposition home or self-care (01) ==
LOC: CATHCVL 10:17
PROVIDERS: ATTEND Surgery Vascular Surgery
DX: L02.612 Cutaneous abscess of left foot (principal); E10.9 Type 1 diabetes mellitus without complications; K21.9 Gastro-esophageal reflux disease without esophagitis; E78.5 Hyperlipidemia, unspecified; G40.909 Epilepsy, unspecified, not intractable, without status epilepticus; M17.12 Unilateral primary osteoarthritis, left knee; Z86.14 Personal history of Methicillin resistant Staphylococcus aureus infection; Z79.899 Other long term (current) drug therapy; Z79.4 Long term (current) use of insulin; Z90.89 Acquired absence of other organs; Z82.49 Family history of ischemic heart disease and other diseases of the circulatory system; Z80.9 Family history of malignant neoplasm, unspecified; Z83.3 Family history of diabetes mellitus
CPT/HCPCS: 36200; 75710; 76937; C1769 ×2; J2250; J2001; Q9966

== ENCOUNTER → 2020-09-15 | Outpatient (CLI) | payer OTHER | DX: L97.429 Non-pressure chronic ulcer of left heel and midfoot with unspecified severity (principal) ==

== ENCOUNTER → 2020-09-24 | Outpatient (CLI) | payer OTHER ==
--- NOTE | 2020-09-26 12:40 | P.ARTDOP ---
Arterial Doppler LOWER EXTREMITY ARTERIAL DOPPLER: DATE OF SERVICE: 09/24/2020 Reason for study: Left foot ulcer. Doppler waveforms: Multiphasic bilaterally throughout. Pulse volume recording: []. Pressure gradients: Only at the left foot. Ankle-brachial indices: Cannot be occluded on either side. Toe brachial indices: 0.66 on the right, 0.48 on the left Impression: Suspect bilateral calcific wall disease making them noncompressible at the ankle level. Waveforms and pressures suggests normal flow pattern with adequate flow for healing..
== END | disposition home or self-care (01) ==
LOC: RADUSWWP 13:44
PROVIDERS: ATTEND Podiatrist Foot & Ankle Surgery
DX: L97.529 Non-pressure chronic ulcer of other part of left foot with unspecified severity (principal)
CPT/HCPCS: 93922

== ENCOUNTER 2020-11-05 16:37 | Observation (INO) | payer OTHER ==
[2020-11-05 18:33] LABS: Anisocytosis Slight; Basophils # (A) 0.1 k/uL (0-0.2); Basophils % (A) 1 %; Eosinophils # (A) 0.1 k/uL (0-0.7); Eosinophils % (A) 1 %; HCT 42.6 % (39.0-53.0); HGB 12.9 gm/dL (13.0-17.5); Hypochromasia Moderate; Lymphocytes # (A) 2.1 k/uL (1.0-4.8); Lymphocytes % (A) 20 %; MCH 22.2 pg (25.0-35.0); MCHC 30.4 g/dL (31.0-37.0); MCV 73.1 fL (80.0-100.0); Mean Platelet Volume 7.1; Microcytosis Moderate; Monocytes # (A) 0.5 k/uL (0-1.0); Monocytes % (A) 4 %; Neutrophils # (A) 7.5 k/uL (1.3-7.7); Neutrophils % (A) 72 %; Platelet Count 530 k/uL (150-450); RBC 5.82 m/uL (4.30-5.90); RDW 17.4 % (11.5-15.5); WBC 10.3 k/uL (3.8-10.6)
[2020-11-05 18:42] LABS: ALT 11 U/L (4-49); AST 25 U/L (17-59); African American GFR (CKD) >90 (>60 ml/min/1.73 sqM); Albumin 4.7 g/dL (3.5-5.0); Alkaline Phosphatase 163 U/L (38-126); Anion Gap 14 mmol/L; Blood Urea Nitrogen 19 mg/dL (9-20); Calcium 10.3 mg/dL (8.4-10.2); Carbon Dioxide 25 mmol/L (22-30); Chloride 96 mmol/L (98-107); Glucose 186 mg/dL (74-99); Non-African American GFR(CKD) >90 (>60 ml/min/1.73 sqM); Potassium 4.1 mmol/L (3.5-5.1); Sodium 135 mmol/L (137-145); Total Bilirubin 0.2 mg/dL (0.2-1.3); Total Protein 8.3 g/dL (6.3-8.2)
--- NOTE | 2020-11-05 18:49 | XR ---
EXAMINATION TYPE: XR chest 2V DATE OF EXAM: 11/05/2020 COMPARISON: 05/14/2020 HISTORY: Short of breath TECHNIQUE: FINDINGS: Heart and mediastinum are normal. Lungs are clear. Diaphragm is normal. Bony thorax appears normal. IMPRESSION: Normal chest. No change.
[2020-11-05 19:29] LABS: INR 0.9 (<1.2); Partial Thromboplastin Time 24.3 sec (22.0-30.0); Prothrombin Time 9.6 sec (9.0-12.0)
[2020-11-05] MEDS ORDERED: NITROGLYCERIN SL TABS 0.4 MG TAB SUBLINGUAL PRN (19:52)
--- NOTE | 2020-11-05 19:52 | ED ---
SOB HPI - General Source: patient, RN notes reviewed Mode of arrival: ambulatory Limitations: no limitations <Tolu Case - Last Filed: 11/05/20 19:50> <Kori Kidd - Last Filed: 11/10/20 14:43> - General Chief Complaint: Shortness of Breath Stated Complaint: JUSTO Time Seen by Provider: 11/05/20 19:02 - History of Present Illness Initial Comments: 60-year-old male presents emergency Department with chief complaint shortness of breath. Patient states he's been having increased shortness breath today. Patient states that he said no fevers or chills cough congestion. Patient states he just doesn't feel well. Patient has no mental abdominal pain. Patient currently being treated for infection of his left foot. Seen at wound care. Patient was noted to have a syncopal episode while having x-rays here he states he does not feel hot flush running symptoms prior to that. He does not remember it. No head injury noted. (Tolu Case) - Related Data Home Medications Medication Instructions Recorded Confirmed Phenytoin Sodium Extended 200 mg PO BID 11/17/16 11/05/20 [Dilantin] Omeprazole 20 mg PO DAILY 06/13/17 11/05/20 Pioglitazone HCl [Actos] 15 mg PO DAILY 10/03/18 11/05/20 Diphenox-Atrop 2.5-0.025 mg 1 tab PO BID 11/17/19 11/05/20 [Lomotil] Gentamicin 0.1% Cream 1 applic TOPICAL BID PRN 01/19/20 11/05/20 HYDROcodone/APAP 5-325MG [[place] 1 tab PO BID PRN 01/19/20 11/05/20 5-325] Triamcinolone 0.5% Cream [Kenalog 1 applic TOPICAL DAILY PRN 01/19/20 11/05/20 0.5% Cream] Collagenase [Santyl] 1 applic TOPICAL DAILY 05/15/20 11/05/20 Insulin Glargine [Lantus Vial] 50 unit SQ DAILY 05/15/20 11/05/20 Pregabalin [Lyrica] 50 mg PO TID 05/15/20 11/05/20 Rosuvastatin [Crestor] 10 mg PO HS 05/15/20 11/05/20 Cephalexin [Keflex] 500 mg PO BID 11/05/20 11/05/20 Allergies Allergy/AdvReac Type Severity Reaction Status Date / Time No Known Allergies Allergy Verified 11/05/20 19:55 Review of Systems ROS Other: All systems not noted in ROS Statement are negative. <Tolu Case - Last Filed: 11/05/20 19:50> ROS Other: All systems not noted in ROS Statement are negative. <Kori Kidd - Last Filed: 11/10/20 14:43> ROS Statement: Those systems with pertinent positive or pertinent negative responses have been documented in the HPI. Past Medical History Past Medical History: Cancer, Diabetes Mellitus, GERD/Reflux, Hyperlipidemia, Osteoarthritis (OA), Seizure Disorder Additional Past Medical History / Comment(s): IDDM type 1, wounds to upper back from scratching and L leg-seen at [facility], past L lower extremity cellulitis with sepsis, L wrist cancerous tumor removed, past seizure over 6 months ago, arthritis L knee, vertigo, occasional diarrhea, pt cannot recall why he takes lyrica. 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 Past Anesthesia/Blood Transfusion Reactions: No Reported Reaction Past Psychological History: Depression Smoking Status: Never smoker Past Alcohol Use History: None Reported Past Drug Use History: None Reported - Past Family History Father Family Medical History: Myocardial Infarction ([place]) Additional Family Medical History / Comment(s): Father of a [place] at the age of 57yrs. Mother Family Medical History: Cancer Additional Family Medical History / Comment(s): Mother from cancer at the age of 61 or 62 . Pt cannot recall type of cancer. Sister(s) Family Medical History: Diabetes Mellitus Additional Family Medical History / Comment(s): Sister had DM type 1. She is . <Tolu Case - Last Filed: 11/05/20 19:50> General Exam Limitations: no limitations General appearance: alert, in no apparent distress Head exam: Present: atraumatic, normocephalic, normal inspection Eye exam: Present: normal appearance, PERRL, EOMI. Absent: scleral icterus, conjunctival injection, periorbital swelling ENT exam: Present: normal exam, normal oropharynx, mucous membranes moist Neck exam: Present: normal inspection, full ROM. Absent: tenderness, meningismus, lymphadenopathy Respiratory exam: Present: normal lung sounds bilaterally. Absent: respiratory distress, wheezes, rales, rhonchi, stridor Cardiovascular Exam: Present: normal rhythm, tachycardia, normal heart sounds. Absent: systolic murmur, diastolic murmur, rubs, gallop, clicks GI/Abdominal exam: Present: soft, normal bowel sounds. Absent: distended, tenderness, guarding, rebound, rigid Neurological exam: Present: alert, reflexes normal. Absent: motor sensory deficit <Tolu Case - Last Filed: 11/05/20 19:50> Course Vital Signs 11/05/20 11/05/20 11/05/20 17:47 19:07 19:16 Temperature 98.0 F Pulse Rate 129 H 95 Respiratory 18 18 16 Rate Blood Pressure 97/67 128/80 O2 Sat by Pulse 98 99 Oximetry 11/05/20 11/06/20 21:55 03:00 Temperature Pulse Rate 99 77 Respiratory 18 16 Rate Blood Pressure 142/90 123/77 O2 Sat by Pulse 99 97 Oximetry Medical Decision Making - Lab Data Result diagrams: 11/05/20 18:20 11/05/20 18:20 - EKG Data -: EKG Interpreted by Ri <Tolu Case - Last Filed: 11/05/20 19:50> - Lab Data Result diagrams: 11/07/20 04:44 11/07/20 04:44 <Kori Kidd - Last Filed: 11/10/20 14:43> - Medical Decision Making 60-year-old male presented for exertional dyspnea started today. Patient had a syncopal episode while emergency department. Patient's d-dimer is negative, EKG does not reveal acute changes troponin is negative patient be admitted for further workup and evaluation. (Tolu Case) I was available for consultation in the emergency department. The history and physical exam were done by the midlevel provider. I was consulted for this patients care. I reviewed the case with the midlevel provider and based on their presentation of the patient, I agree with the assessment, medical decision making and plan of care as documented. Chart was dictated using seedtag dictation software. Attempts were made to correct any dictation errors however some typographical errors may persist. Patient was seen during a national state of emergency due to the Covid-19 pandemic. (Kori Kidd) - Lab Data Lab Results 11/05/20 11/05/20 11/05/20 Range/Units 18:20 18:20 18:20 WBC 10.3 (3.8-10.6) k/uL RBC 5.82 (4.30-5.90) m/uL Hgb 12.9 L (13.0-17.5) gm/dL Hct 42.6 (39.0-53.0) % MCV 73.1 L (80.0-100.0) fL MCH 22.2 L (25.0-35.0) pg MCHC 30.4 L (31.0-37.0) g/dL RDW 17.4 H (11.5-15.5) % Plt Count 530 H (150-450) k/uL MPV 7.1 Neutrophils % 72 % Lymphocytes % 20 % Monocytes % 4 % Eosinophils % 1 % Basophils % 1 % Neutrophils # 7.5 (1.3-7.7) k/uL Lymphocytes # 2.1 (1.0-4.8) k/uL Monocytes # 0.5 (0-1.0) k/uL Eosinophils # 0.1 (0-0.7) k/uL Basophils # 0.1 (0-0.2) k/uL Hypochromasia Moderate Anisocytosis Slight Microcytosis Moderate PT (9.0-12.0) sec INR (<1.2) APTT (22.0-30.0) sec D-Dimer (<0.60) mg/L FEU Sodium 135 L (137-145) mmol/L Potassium 4.1 (3.5-5.1) mmol/L Chloride 96 L (98-107) mmol/L Carbon Dioxide 25 (22-30) mmol/L Anion Gap 14 mmol/L BUN 19 (9-20) mg/dL Creatinine 0.75 (0.66-1.25) mg/dL Est GFR (CKD-EPI)AfAm >90 (>60 ml/min/1.73 sqM) Est GFR (CKD-EPI)NonAf >90 (>60 ml/min/1.73 sqM) Glucose 186 H (74-99) mg/dL Estimated Ave Glu mg/dL Hemoglobin A1c (4.0-6.0) % Plasma Lactic Acid Michael 1.4 (0.7-2.0) mmol/L Calcium 10.3 H (8.4-10.2) mg/dL Total Bilirubin 0.2 (0.2-1.3) mg/dL AST 25 (17-59) U/L ALT 11 (4-49) U/L Alkaline Phosphatase 163 H (38-126) U/L Troponin I (0.000-0.034) ng/mL Total Protein 8.3 H (6.3-8.2) g/dL Albumin 4.7 (3.5-5.0) g/dL Coronavirus (PCR) (Not Detectd) 11/05/20 11/05/20 11/05/20 Range/Units 18:20 18:20 19:04 WBC (3.8-10.6) k/uL RBC (4.30-5.90) m/uL Hgb (13.0-17.5) gm/dL Hct (39.0-53.0) % MCV (80.0-100.0) fL MCH (25.0-35.0) pg MCHC (31.0-37.0) g/dL RDW (11.5-15.5) % Plt Count (150-450) k/uL MPV Neutrophils % % Lymphocytes % % Monocytes % % Eosinophils % % Basophils % % Neutrophils # (1.3-7.7) k/uL Lymphocytes # (1.0-4.8) k/uL Monocytes # (0-1.0) k/uL Eosinophils # (0-0.7) k/uL Basophils # (0-0.2) k/uL Hypochromasia Anisocytosis Microcytosis PT 9.6 (9.0-12.0) sec INR 0.9 (<1.2) APTT 24.3 (22.0-30.0) sec D-Dimer 0.20 (<0.60) mg/L FEU Sodium (137-145) mmol/L Potassium (3.5-5.1) mmol/L Chloride (98-107) mmol/L Carbon Dioxide (22-30) mmol/L Anion Gap mmol/L BUN (9-20) mg/dL Creatinine (0.66-1.25) mg/dL Est GFR (CKD-EPI)AfAm (>60 ml/min/1.73 sqM) Est GFR (CKD-EPI)NonAf (>60 ml/min/1.73 sqM) Glucose (74-99) mg/dL Estimated Ave Glu mg/dL 349 Hemoglobin A1c 13.8 H (4.0-6.0) % Plasma Lactic Acid Michael (0.7-2.0) mmol/L Calcium (8.4-10.2) mg/dL Total Bilirubin (0.2-1.3) mg/dL AST (17-59) U/L ALT (4-49) U/L Alkaline Phosphatase (38-126) U/L Troponin I <0.012 (0.000-0.034) ng/mL Total Protein (6.3-8.2) g/dL Albumin (3.5-5.0) g/dL Coronavirus (PCR) (Not Detectd) 11/05/20 Range/Units 19:07 WBC (3.8-10.6) k/uL RBC (4.30-5.90) m/uL Hgb (13.0-17.5) gm/dL Hct (39.0-53.0) % MCV (80.0-100.0) fL MCH (25.0-35.0) pg MCHC (31.0-37.0) g/dL RDW (11.5-15.5) % Plt Count (150-450) k/uL MPV Neutrophils % % Lymphocytes % % Monocytes % % Eosinophils % % Basophils % % Neutrophils # (1.3-7.7) k/uL Lymphocytes # (1.0-4.8) k/uL Monocytes # (0-1.0) k/uL Eosinophils # (0-0.7) k/uL Basophils # (0-0.2) k/uL Hypochromasia Anisocytosis Microcytosis PT (9.0-12.0) sec INR (<1.2) APTT (22.0-30.0) sec D-Dimer (<0.60) mg/L FEU Sodium (137-145) mmol/L Potassium (3.5-5.1) mmol/L Chloride (98-107) mmol/L Carbon Dioxide (22-30) mmol/L Anion Gap mmol/L BUN (9-20) mg/dL Creatinine (0.66-1.25) mg/dL Est GFR (CKD-EPI)AfAm (>60 ml/min/1.73 sqM) Est GFR (CKD-EPI)NonAf (>60 ml/min/1.73 sqM) Glucose (74-99) mg/dL Estimated Ave Glu mg/dL Hemoglobin A1c (4.0-6.0) % Plasma Lactic Acid Michael (0.7-2.0) mmol/L Calcium (8.4-10.2) mg/dL Total Bilirubin (0.2-1.3) mg/dL AST (17-59) U/L ALT (4-49) U/L Alkaline Phosphatase (38-126) U/L Troponin I (0.000-0.034) ng/mL Total Protein (6.3-8.2) g/dL Albumin (3.5-5.0) g/dL Coronavirus (PCR) Not Detected (Not Detectd) - EKG Data EKG Comments: EKG performed at 18:18 normal sinus rhythm rate of 100 LA 124 QRS 84 QT status QTC 338/436 (Tolu Case) Disposition <Tolu Case - Last Filed: 11/05/20 19:50> <Kori Kidd - Last Filed: 11/10/20 14:43> Clinical Impression: Exertional dyspnea, Tachycardia, Syncope Disposition: ADMITTED IP TO THIS HOSP Condition: Stable
[2020-11-06 07:42] LABS: Glucose,Whole Blood 236 mg/dL (75-99)
[2020-11-06] MEDS ORDERED: DOBUTamine DRIP for NUC MED 500 MG in DEXTROSE/WATER 1 250ML.BAG IV PRN (09:00)
--- NOTE | 2020-11-06 10:18 | ECHOF ---
Referral Reason:Exertional dyspnea, syncope MEASUREMENTS -------- HEIGHT: 154.9 cm WEIGHT: 47.6 kg BP: 123/77 IVSd: 0.8 cm (0.6 - 1.1) LVIDd: 3.8 cm (3.9 - 5.3) LVPWd: 0.8 cm (0.6 - 1.1) EDV(Teich): 63 ml IVSs: 1.1 cm LVIDs: 2.7 cm LVPWs: 1.1 cm %IVS Thck: 40 % ESV(Teich): 27 ml EF(Teich): 57 % %FS: 29 % SV(Teich): 36 ml LA Diam: 2.2 cm (2.7 - 3.8) RVIDd: 2.6 cm (< 3.3) LVLd A4C: 5.4 cm LVEDV MOD A4C: 29 ml LVLs A4C: 4.8 cm LVESV MOD A4C: 14 ml LVEF MOD A4C: 53 % SV MOD A4C: 15 ml LVLd A2C: 4.9 cm LVEDV MOD A2C: 33 ml LVLs A2C: 4.8 cm LVESV MOD A2C: 22 ml LVEF MOD A2C: 35 % SV MOD A2C: 12 ml EF Biplane: 45 % LVEDV MOD BP: 31 ml LVESV MOD BP: 17 ml LALs A4C: 3.3 cm LAAs A4C: 7.3 cm LAESV A-L A4C: 14 ml LAESV MOD A4C: 11 ml LALs A2C: 4.1 cm LAAs A2C: 7.6 cm LAESV A-L A2C: 12 ml LAESV MOD A2C: 11 ml LAESV(A-L): 14 ml LAESV Index (A-L): 9.89 ml/m Ao Diam: 3.0 cm (2.0 - 3.7) AV Cusp: 1.7 cm (1.5 - 2.6) EPSS: 0.7 cm MV E Giuseppe: 0.59 m/s MV DecT: 235 ms MV Dec [place]: 2.5 m/s MV A Giuseppe: 0.67 m/s MV E/A Ratio: 0.88 MV PHT: 68 ms AV Vmax: 0.84 m/s AV maxP.85 mmHg TR Vmax: 1.72 m/s TR maxP.77 mmHg RAP: 5.00 mmHg RVSP: 16.77 mmHg MV EF SLOPE: 57.16 mm/s (70 - 150) MV EXCURSION: 12.65 mm (> 18.000) FINDINGS -------- Sinus rhythm. This was a technically adequate study. The left ventricular size is normal. Left ventricular wall thickness is normal. Overall left vent ricular systolic function is low-normal with, an EF between 50 - 55 %. The right ventricle is normal in size. Normal LA size by volume 22+/-6 ml/m2. The right atrium is normal in size. Interatrial and interventricular septum intact. The aortic valve is trileaflet, and appears structurally normal. No aortic stenosis or regurgitation. The mitral valve is normal. Mild tricuspid regurgitation present. Right ventricular systolic pressure is normal at < 35 mmHg. The pulmonic valve was not well visualized. The aortic root size is normal. Normal inferior vena cava with normal inspiratory collapse consistent with estimated right atrial pre ssure of 5 mmHg. There is no pericardial effusion. CONCLUSIONS -------- 1. The left ventricular size is normal. 2. Left ventricular wall thickness is normal. 3. Overall left ventricular systolic function is low-normal with, an EF between 50 - 55 %. 4. The aortic valve is trileaflet, and appears structurally normal. No aortic stenosis or regurgitati on. 5. Mild tricuspid regurgitation present. 6. There is no pericardial effusion. GENERAL OFFICE ASSISTANT: Yaz Sanchez RDCS
[2020-11-06 10:21] VITALS: BMI 19.8
--- NOTE | 2020-11-06 10:24 | P.CRDCN ---
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 He denies prior history of coronary artery disease and does not follow the office with a production supv for any reason. We have been asked to see in consultation for shortness of breath. He states he has been feeling short of breath for the last week that has been getting progressively worse. He is short of breath at rest and with exertion. He denies associated chest pain. According to ER documentation he may have passed out during his chest xray, but he doesn't recall what happened. There is no nursing documentation of this event. On arrival his blood pressure was 97/67 with heart rate of 129. He is currently following in the wound clinic. He had a recent echo performed 05/2020 revealing preserved LV systolic function with EF 55-60%. DIAGNOSTICS EKG reveals SR with no acute changes. Telemetry tracings indicate SR with no acute arrhythmia. Chest xray negative for an acute cardiopulmonary process. Laboratory reviewed, WBC 10.3, hemoglobin 12.9, platelets 530, d-dimer 0.2, sodium 135, potassium 4.1, creatinine 0.75, troponin negative 3. Current cardiac medications include rosuvastatin 10 mg daily. REVIEW OF SYSTEMS At the time of my exam: CONSTITUTIONAL: Denies fever or chills. CARDIOVASCULAR: Denies chest pain, shortness of breath, orthopnea, PND or palpitations. RESPIRATORY: Denies cough. GASTROINTESTINAL: Denies abdominal pain, diarrhea, constipation, nausea or vomiting. MUSCULOSKELETAL: Denies myalgias. NEUROLOGIC: Denies numbness, tingling, headache or weakness. ENDOCRINE: Denies fatigue, weight change, polydipsia or polyurina. GENITOURINARY: Denies burning, hematuria or urgency with micturation. HEMATOLOGIC: Denies history of anemia or bleeding. PHYSICAL EXAMINATION Blood pressure 117/77 heart rate 93 afebrile and maintaining oxygen saturation on room air. CONSTITUTIONAL: No apparent distress. Frail. HEENT: Head is normocephalic. Pupils are equal, round. Sclerae anicteric. Mucous membranes of the mouth are moist. No JVD. No carotid bruit. CHEST EXAMINATION: Lungs are clear to auscultation. No chest wall tenderness is noted on palpation or with deep breathing. HEART EXAMINATION: Regular rate and rhythm. S1, S2 heard. No murmurs, gallops or rub. ABDOMEN: Soft, nontender. EXTREMITIES: Peripheral pulses intact, no lower extremity edema and no calf tenderness. NEUROLOGIC EXAMINATION: Patient is awake, alert and oriented x3. ASSESSMENT Shortness of breath Possible syncope Diabetes mellitus Dyslipidemia Chronic non-healing lower extremity wound Frail, BMI 19 PLAN An acute coronary event has been ruled out. Recent echo reviewed, no evidence of heart failure. Clinically he is euvolemic. Check proBNP. Perform dobutamine stress echo to assess for cardiac ischemia. Check lipid panel and hgb A1C. Check for orthostatic changes. Thank you kindly for this consultation. Nurse Practitioner note has been reviewed, I agree with a documented findings and plan of care. Patient was seen and examined. Past Medical History Past Medical History: Cancer, Diabetes Mellitus, GERD/Reflux, Hyperlipidemia, Osteoarthritis (OA), Seizure Disorder Additional Past Medical History / Comment(s): IDDM type 1, wounds to upper back from scratching and L leg-seen at [facility], past L lower extremity cellulitis with sepsis, L wrist cancerous tumor removed, past seizure over 6 months ago, arthritis L knee, vertigo, occasional diarrhea, pt cannot recall why he takes lyrica. 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 Past Anesthesia/Blood Transfusion Reactions: No Reported Reaction Past Psychological History: Depression Smoking Status: Never smoker Past Alcohol Use History: None Reported Past Drug Use History: None Reported - Past Family History Father Family Medical History: Myocardial Infarction ([place]) Additional Family Medical History / Comment(s): Father of a [place] at the age of 57yrs. Mother Family Medical History: Cancer Additional Family Medical History / Comment(s): Mother from cancer at the age of 61 or 62 . Pt cannot recall type of cancer. Sister(s) Family Medical History: Diabetes Mellitus Additional Family Medical History / Comment(s): Sister had DM type 1. She is . Medications and Allergies Home Medications Medication Instructions Recorded Confirmed Type Phenytoin Sodium Extended 200 mg PO BID 11/17/16 11/05/20 History [Dilantin] Omeprazole 20 mg PO DAILY 06/13/17 11/05/20 History Pioglitazone HCl [Actos] 15 mg PO DAILY 10/03/18 11/05/20 History Diphenox-Atrop 2.5-0.025 mg 1 tab PO BID 11/17/19 11/05/20 History [Lomotil] Gentamicin 0.1% Cream 1 applic TOPICAL BID PRN 01/19/20 11/05/20 History HYDROcodone/APAP 5-325MG [[place] 1 tab PO BID PRN 01/19/20 11/05/20 History 5-325] Triamcinolone 0.5% Cream [Kenalog 1 applic TOPICAL DAILY PRN 01/19/20 11/05/20 History 0.5% Cream] Collagenase [Santyl] 1 applic TOPICAL DAILY 05/15/20 11/05/20 History Insulin Glargine [Lantus Vial] 50 unit SQ DAILY 05/15/20 11/05/20 History Pregabalin [Lyrica] 50 mg PO TID 05/15/20 11/05/20 History Rosuvastatin [Crestor] 10 mg PO HS 05/15/20 11/05/20 History Cephalexin [Keflex] 500 mg PO BID 11/05/20 11/05/20 History Allergies Allergy/AdvReac Type Severity Reaction Status Date / Time No Known Allergies Allergy Verified 11/05/20 19:55 Physical Exam Vitals: Vital Signs Temp Pulse Pulse Resp BP BP Pulse Ox 11/06/20 08:10 97.9 F 93 12 117/77 98 11/06/20 08:00 98.3 F 93 12 120/74 100 11/06/20 03:00 77 16 123/77 97 11/05/20 21:55 99 18 142/90 99 11/05/20 19:16 95 16 128/80 99 11/05/20 19:07 18 11/05/20 17:47 98.0 F 129 H 18 97/67 98 Intake and Output 11/05/20 11/06/20 11/06/20 22:59 06:59 14:59 Other: Voiding Method Toilet Weight 47.627 kg Results 11/05/20 18:20 11/05/20 18:20 Cardiac Enzymes 11/05/20 11/05/20 11/05/20 Range/Units 18:20 18:20 20:59 AST 25 (17-59) U/L Troponin I <0.012 <0.012 (0.000-0.034) ng/mL 11/06/20 Range/Units 01:04 AST (17-59) U/L Troponin I <0.012 (0.000-0.034) ng/mL Coagulation 11/05/20 Range/Units 19:04 PT 9.6 (9.0-12.0) sec APTT 24.3 (22.0-30.0) sec CBC 11/05/20 Range/Units 18:20 WBC 10.3 (3.8-10.6) k/uL RBC 5.82 (4.30-5.90) m/uL Hgb 12.9 L (13.0-17.5) gm/dL Hct 42.6 (39.0-53.0) % Plt Count 530 H (150-450) k/uL Comprehensive Metabolic Panel 11/05/20 Range/Units 18:20 Sodium 135 L (137-145) mmol/L Potassium 4.1 (3.5-5.1) mmol/L Chloride 96 L (98-107) mmol/L Carbon Dioxide 25 (22-30) mmol/L BUN 19 (9-20) mg/dL Creatinine 0.75 (0.66-1.25) mg/dL Glucose 186 H (74-99) mg/dL Calcium 10.3 H (8.4-10.2) mg/dL AST 25 (17-59) U/L ALT 11 (4-49) U/L Alkaline Phosphatase 163 H (38-126) U/L Total Protein 8.3 H (6.3-8.2) g/dL Albumin 4.7 (3.5-5.0) g/dL Current Medications Generic Name Dose Route Start Last Admin Trade Name Freq PRN Reason Stop Dose Admin Atorvastatin Calcium 20 mg 11/06/20 21:00 Atorvastatin 20 Mg Tab PO HS ERIN Nitroglycerin 0.4 mg 11/05/20 19:52 Nitroglycerin Sl Tabs 0.4 Mg Tab SUBLINGUAL Q5M PRN Chest Pain Intake and Output 11/05/20 11/06/20 11/06/20 22:59 06:59 14:59 Other: Voiding Method Toilet Weight 47.627 kg 11/05/20 18:20 11/05/20 18:20
[2020-11-06 11:52] LABS: Chol/HDL Ratio 3.08; LDL Cholesterol,Calculated 96.6 mg/dL (0.0-131.0); VLDL Calculation 36.4 mg/dL (5.00-40.00)
[2020-11-06 12:20] LABS: Glucose,Whole Blood 385 mg/dL (75-99)
[2020-11-06] MEDS: INSULIN ASPART (NovoLOG) 100 UNIT/ML VIAL SQ SCH ×2 (13:58→18:16)
--- NOTE | 2020-11-06 15:57 | US ---
EXAMINATION TYPE: US carotid duplex BILAT DATE OF EXAM: 11/06/2020 COMPARISON: NONE CLINICAL HISTORY: Syncope. Syncope per order. EXAM MEASUREMENTS: RIGHT: Peak Systolic Velocity (PSV) cm/sec ----- Right CCA: 61.1 ----- Right ICA: 80.6 ----- Right ECA: 58.9 ICA/CCA ratio: 1.3 RIGHT: End Diastole cm/sec ----- Right CCA: 17.1 ----- Right ICA: 28.9 ----- Right ECA: 6.2 LEFT: Peak Systolic Velocity (PSV) cm/sec ----- Left CCA: 57.8 ----- Left ICA: 78.4 ----- Left ECA: 60.3 ICA/CCA ratio: 1.4 LEFT: End Diastole cm/sec ----- Left CCA: 14.9 ----- Left ICA: 33.3 ----- Left ECA: 4.3 VERTEBRALS (direction of flow): Right Vertebral: Antegrade Left Vertebral: Antegrade Rhythm: ?Appears tachycardic. Intimal thickening seen bilaterally. No elevated velocities at this time. Grayscale, color Doppler, spectral Doppler imaging performed of the carotid arteries. Waveform analys is does not show significant stenosis of the internal carotid arteries. IMPRESSION: No hemodynamic significant stenosis of the proximal internal carotid arteries by Doppler criteria, an indirect measurement of carotid stenosis Criteria for Assigning % of Stenosis / Diameter reduction (Estimation based on the indirect measurements of the internal carotid artery velocities (ICA PSV). 1. Normal (no stenosis)=ICA PSV < 125 cm/s: ratio < 2.0: ICA EDV<40 cm/s. 2. Less than 50% stenosis=ICA PSV < 125 cm/s: ratio < 2.0: ICA EDV<40 cm/s. 3. 50 to 69% stenosis=ICA PSV of 125 to 230 cm/s: ration 2.0 ? 4.0: ICA EDV 40-100 cm/s. 4. Greater than 70% stenosis to near occlusion= ICA PSV > 230 cm/s: ratio > 4.0: ICA EDV > 100 cm/s. 5. Near occlusion= ICA PSV velocities may be low or undetectable: variable ratio and ICA EDV. 6. Total occlusion=unable to detect flow.
--- NOTE | 2020-11-06 16:25 | P.STRESS ---
- Stress Test Note Stress Test Results/Findings: Exam Performed: NM stress dobutamine cardiolite Exam Date: 11/06/20 Reason for Exam: Chest pain Height: 5 ft 1 in Weight: 47.63 kg Protocol: Dobutamine stress echo Stage: IV Duration of Exercise: 10:37 Resting Heart Rate: 88 Resting Blood Pressure: 124/70 Maximum Achieved Heart Rate: 142 Maximum Achieved Blood Pressure: 159/65 85% PMHR: 136 100% PMHR: 160 METS: Technologist Comment: Stress Test Results/Findings: The central EKG shows sinus rhythm with early repolarization abnormality a [address] elevation inferolaterally Patient received dobutamine infusion per protocol up to 40 mics. Peak heart rate 136 beats a minute Normal blood pressure response Number isolation of ECG/ST segments during dobutamine infusion No arrhythmias At baseline, normal LV size and systolic function was noted, without any wall motion abnormalities With dobutamine infusion, there was a stepwise increment in overall LV contractility, without development of any wall motion abnormalities At the recovery, regional and global LV systolic function, normal Impression No ECG or echocardiographic evidence for ischemia Baseline ECG shows early repolarization abnormalities with ST elevation 1 mm inferolaterally
[2020-11-06 17:50] LABS: Glucose,Whole Blood 279 mg/dL (75-99)
[2020-11-06] MEDS: COLLAGENASE 250 UNIT/GM OINTMENT 30 GM TUBE TOPICAL SCH (18:17)
[2020-11-06 18:43] LABS: Hemoglobin A1C 13.8 % (4.0-6.0)
[2020-11-06] MEDS ORDERED: HYDROcodone/APAP 5-325MG 1 EACH TAB PO PRN (19:03)
--- NOTE | 2020-11-06 19:05 | P.HPIM ---
History of Present Illness H&P Date: 11/06/20 Pietro Ryder, is a 60-year-old male, who presented to [facility] emergency room with a chief complaint of shortness of breath that started 1 week ago and has been worsening, he denies any other symptoms there was no fever or chills no cough no chest pain and no relation to his Toro of breath to exertion. He was evaluated in the emergency room vital examination on presentation revealed a temperature of 98 pulse 129 respiration 18 blood pressure 97/67 pulse ox 98% on room air, While being evaluated in the emergency room patient had a syncopal episode was loss of consciousness. Laboratory data revealed a white blood count of 10.3 hemoglobin 12.9 platelet count 530 sodium 135 potassium 4.1 chloride 96 CO2 25 BUN 19 creatinine 0.75 troponin level less than 0.012 d-dimer 0.2 COVID-19 PCR was negative Testing in the emergency room revealed EKG revealed normal sinus rhythm normal EKG chest x-ray revealed normal findings Patient was admitted to medical floor for further evaluation and treatment. Past Medical History Past Medical History: Cancer, Diabetes Mellitus, GERD/Reflux, Hyperlipidemia, Osteoarthritis (OA), Seizure Disorder Additional Past Medical History / Comment(s): IDDM type 1, wounds to upper back from scratching and L leg-seen at [facility], past L lower extremity cellulitis with sepsis, L wrist cancerous tumor removed, past seizure over 6 months ago, arthritis L knee, vertigo, occasional diarrhea, pt cannot recall why he takes lyrica. 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 Past Anesthesia/Blood Transfusion Reactions: No Reported Reaction Past Psychological History: Depression Smoking Status: Never smoker Past Alcohol Use History: None Reported Past Drug Use History: None Reported - Past Family History Father Family Medical History: Myocardial Infarction ([place]) Additional Family Medical History / Comment(s): Father of a [place] at the age of 57yrs. Mother Family Medical History: Cancer Additional Family Medical History / Comment(s): Mother from cancer at the age of 61 or 62 . Pt cannot recall type of cancer. Sister(s) Family Medical History: Diabetes Mellitus Additional Family Medical History / Comment(s): Sister had DM type 1. She is . Medications and Allergies Home Medications Medication Instructions Recorded Confirmed Type Phenytoin Sodium Extended 200 mg PO BID 11/17/16 11/05/20 History [Dilantin] Omeprazole 20 mg PO DAILY 06/13/17 11/05/20 History Pioglitazone HCl [Actos] 15 mg PO DAILY 10/03/18 11/05/20 History Diphenox-Atrop 2.5-0.025 mg 1 tab PO BID 11/17/19 11/05/20 History [Lomotil] Gentamicin 0.1% Cream 1 applic TOPICAL BID PRN 01/19/20 11/05/20 History HYDROcodone/APAP 5-325MG [[place] 1 tab PO BID PRN 01/19/20 11/05/20 History 5-325] Triamcinolone 0.5% Cream [Kenalog 1 applic TOPICAL DAILY PRN 01/19/20 11/05/20 History 0.5% Cream] Collagenase [Santyl] 1 applic TOPICAL DAILY 05/15/20 11/05/20 History Insulin Glargine [Lantus Vial] 50 unit SQ DAILY 05/15/20 11/05/20 History Pregabalin [Lyrica] 50 mg PO TID 05/15/20 11/05/20 History Rosuvastatin [Crestor] 10 mg PO HS 05/15/20 11/05/20 History Cephalexin [Keflex] 500 mg PO BID 11/05/20 11/05/20 History Allergies Allergy/AdvReac Type Severity Reaction Status Date / Time No Known Allergies Allergy Verified 11/05/20 19:55 Physical Exam Vitals: Vital Signs Temp Pulse Pulse Pulse Pulse Pulse Resp 11/06/20 12:39 106 H 121 H 91 11/06/20 08:10 97.9 F 93 12 11/06/20 08:00 98.3 F 93 12 11/06/20 03:00 77 16 11/05/20 21:55 99 18 11/05/20 19:16 95 16 11/05/20 19:07 18 11/05/20 17:47 98.0 F 129 H 18 BP BP BP BP Pulse Ox 11/06/20 12:39 106/65 80/55 116/71 11/06/20 08:10 117/77 98 11/06/20 08:00 120/74 100 11/06/20 03:00 123/77 97 11/05/20 21:55 142/90 99 11/05/20 19:16 128/80 99 11/05/20 19:07 11/05/20 17:47 97/67 98 Intake and Output 11/05/20 11/06/20 11/06/20 22:59 06:59 14:59 Other: Voiding Method Toilet Weight 47.627 kg 47.63 kg In general patient is alert and oriented x 3 in no distress HEENT head normocephalic and atraumatic Neck is supple no JVD no goiter no lymphadenopathy no carotid bruit Chest examination is clear to auscultation no crackles no wheezing Cardiac exam reveals regular heart sounds S1 and S2 no gallops no murmurs Abdomen is soft nontender no organomegaly with normal bowel sounds Extremity exam reveals no edema no cyanosis or clubbing Neurological examination reveals no gross focal deficits Results CBC & Chem 7: 11/05/20 18:20 11/05/20 18:20 Labs: Abnormal Lab Results - Last 24 Hours (Table) 11/05/20 11/05/20 11/06/20 Range/Units 18:20 18:20 00:00 Hgb 12.9 L (13.0-17.5) gm/dL MCV 73.1 L (80.0-100.0) fL MCH 22.2 L (25.0-35.0) pg MCHC 30.4 L (31.0-37.0) g/dL RDW 17.4 H (11.5-15.5) % Plt Count 530 H (150-450) k/uL Sodium 135 L (137-145) mmol/L Chloride 96 L (98-107) mmol/L Glucose 186 H (74-99) mg/dL POC Glucose (mg/dL) (75-99) mg/dL Calcium 10.3 H (8.4-10.2) mg/dL Alkaline Phosphatase 163 H (38-126) U/L Total Protein 8.3 H (6.3-8.2) g/dL Triglycerides 182.0 H (0.0-149.0) mg/dL HDL Cholesterol 64.0 H (40.0-60.0) mg/dL 11/06/20 11/06/20 Range/Units 07:29 12:10 Hgb (13.0-17.5) gm/dL MCV (80.0-100.0) fL MCH (25.0-35.0) pg MCHC (31.0-37.0) g/dL RDW (11.5-15.5) % Plt Count (150-450) k/uL Sodium (137-145) mmol/L Chloride (98-107) mmol/L Glucose (74-99) mg/dL POC Glucose (mg/dL) 236 H 385 H (75-99) mg/dL Calcium (8.4-10.2) mg/dL Alkaline Phosphatase (38-126) U/L Total Protein (6.3-8.2) g/dL Triglycerides (0.0-149.0) mg/dL HDL Cholesterol (40.0-60.0) mg/dL Thrombosis Risk Factor Assmnt - Choose All That Apply Any of the Below Risk Factors Present?: No Other Risk Factors: No Other congenital or acquired thrombophilia - If yes, enter type in comment: No Thrombosis Risk Factor Assessment Level: Very Low Risk Assessment and Plan Plan: Worsening shortness of breath over the last week cause is not clear, cardiology consultation was requested, cardiac testing is is ordered today Syncopal episode in the emergency room, will add carotid Doppler check Underlying history of nonhealing ulcers on the lower extremities followed by the wound care clinic Underlying history of hyperlipidemia maintained on Crestor Underlying history of underlying history of seizure disorder maintained on Dilantin Underlying history of insulin-dependent diabetes mellitus At this time home medications reviewed and reordered Cardiac testing in progress Will add pulmonary consultation Will follow closely
[2020-11-06 20:52] LABS: Glucose,Whole Blood 338 mg/dL (75-99)
[2020-11-06] MEDS: DIPHENOX-ATROP 2.5-0.025 MG 1 EACH TAB PO SCH (20:52)
[2020-11-06] MEDS: PREGABALIN 50 MG CAP PO SCH (20:52)
[2020-11-06] MEDS: INSULIN DETEMIR (LEVEMIR) 100 UNIT/ML SYR SQ SCH (20:53)
[2020-11-06] MEDS: CEPHALEXIN 500 MG CAP PO SCH (20:53)
[2020-11-06] MEDS: PHENYTOIN SODIUM EXTENDED 100 MG CAP PO SCH (20:53)
[2020-11-06] MEDS ORDERED: ATORVASTATIN 20 MG TAB PO SCH (21:00)
[2020-11-07] MEDS ORDERED: PANTOPRAZOLE 40 MG TABLET PO SCH (07:30)
[2020-11-07 07:39] LABS: Glucose,Whole Blood 76 mg/dL (75-99)
[2020-11-07] MEDS: PREGABALIN 50 MG CAP PO SCH (08:48)
[2020-11-07] MEDS: DIPHENOX-ATROP 2.5-0.025 MG 1 EACH TAB PO SCH (08:48)
[2020-11-07] MEDS: INSULIN ASPART (NovoLOG) 100 UNIT/ML VIAL SQ SCH ×2 (08:49→14:25)
[2020-11-07] MEDS: COLLAGENASE 250 UNIT/GM OINTMENT 30 GM TUBE TOPICAL SCH (08:51)
[2020-11-07] MEDS: INSULIN DETEMIR (LEVEMIR) 100 UNIT/ML SYR SQ SCH (08:56)
[2020-11-07] MEDS: PHENYTOIN SODIUM EXTENDED 100 MG CAP PO SCH (08:56)
[2020-11-07] MEDS: CEPHALEXIN 500 MG CAP PO SCH (08:57)
[2020-11-07] MEDS ORDERED: PIOGLITAZONE 15 MG TAB PO SCH (09:00)
[2020-11-07 09:14] LABS: HCT 33.6 % (39.6-50.0); HGB 10.1 g/dL (13.0-17.0); MCH 21.5 pg (27.0-32.0); MCHC 30.1 g/dL (32.0-37.0); MCV 71.6 fL (80.0-97.0); Mean Platelet Volume 9.5 fL (9.5-12.2); Platelet Count 431 X 10*3/uL (140-440); RBC 4.69 X 10*6/uL (4.40-5.60); RDW 18.6 % (11.5-14.5)
[2020-11-07 11:17] LABS: African American GFR (CKD) 94.4 (60.0-200.0); Albumin 3.7 g/dL (3.80-4.90); Albumin/Globulin Ratio 1.37 (1.60-3.17); Calcium 9.3 mg/dL (8.7-10.3); Globulin 2.7 g/dL (1.6-3.3); Non-African American GFR(CKD) 81.4 (60.0-200.0); Potassium 3.8 mmol/L (3.5-5.5); Total Bilirubin 0.1 mg/dL (0.2-1.2); Total Protein 6.4 g/dL (6.2-8.2)
[2020-11-07 11:18] LABS: Basophils # (A) 0.06 X 10*3/uL (0.00-0.10); Basophils % (A) 0.9 %; Eosinophils # (A) 0.07 X 10*3/uL (0.04-0.35); Lymphocytes # (A) 2.59 X 10*3/uL (0.90-5.00); Lymphocytes % (A) 37.5 %; Monocytes % (A) 8.7 %; Neutrophils # (A) 3.56 X 10*3/uL (1.80-7.70); Neutrophils % (A) 51.6 %
[2020-11-07 11:19] LABS: Microcytosis (M) 2+
--- NOTE | 2020-11-07 12:04 | P.CNPUL ---
History of Present Illness Consult date: 11/07/20 Reason for consult: chest pain Chief complaint: Chest pain History of present illness: 60-y.o white male patient with past medical history of diabetes mellitus type I, with previous episodes of DKA, hyperlipidemia, seizure disorder, lifetime nonsmoker, history of MRSA infection in his left leg, who presented to the [facility] department on 11/05/2020 with complaints of shortness of breath. Patient denied any fever, or chills, no cough, no phlegm production, no chest congestion. No chest pain. He stated that he just didn't feel well. No nausea vomiting or diarrhea. Patient is undergoing treatment for his left foot infection at the wound care. She was noted to have a syncopal episode while having x-rays at the wound Center. He denied having any symptoms prior to that. No head injury noted. He is on Dilantin for history of seizures. No reported seizure activity. Chest x-ray in emergency department showed clear lungs, normal chest. EKG showed normal sinus rhythm. Patient is breathing comfortably, he is on room air, his been afebrile since admission. Room air pulse ox is 97%, lung sounds are clear. Echocardiogram showed low normal EF of 50-55%, no evidence of aortic stenosis or regurgitation, there was some mild TR, and right ventricular systolic pressure was normal at less than 35 mmHg. 3 sets of cardiac troponins were negative, proBNP is within normal limits at 22. COVID-19 PCR was negative. D-dimer is -0.20. Patient has no evidence of leukocytosis, WBC 10.3, hemoglobin 12.9, sodium was 135, potassium 4.1, chloride 96, CO2 is 25, BUN is 19, creatinine is 0.75. Lactic acid was 1.4. Patient is being evaluated by cardiology, carotid Dopplers showed no hemodynamically significant stenosis. Dobutamine stress echo showed no ECG or echocardiographic evidence for ischemia, please refer to the dobutamine echocardiogram report. From pulmonary perspective patient denies any chronic lung disease, denies any shortness of breath, no phlegm production, no hemoptysis. Denies any history of asthma, he is a lifetime nonsmoker. 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 Review of Systems All systems: negative Constitutional: Denies chills, Denies fever Eyes: denies blurred vision, denies pain Ears, nose, mouth and throat: Denies headache, Denies sore throat Cardiovascular: Denies chest pain, Denies shortness of breath Respiratory: Reports dyspnea, Denies cough Gastrointestinal: Denies abdominal pain, Denies diarrhea, Denies nausea, Denies vomiting Musculoskeletal: Denies myalgias Integumentary: Denies pruritus, Denies rash Neurological: Denies numbness, Denies weakness Psychiatric: Denies anxiety, Denies depression Endocrine: Denies fatigue, Denies weight change Past Medical History Past Medical History: Cancer, Diabetes Mellitus, GERD/Reflux, Hyperlipidemia, Osteoarthritis (OA), Seizure Disorder Additional Past Medical History / Comment(s): IDDM type 1, wounds to upper back from scratching and L leg-seen at [facility], past L lower extremity cellulitis with sepsis, L wrist cancerous tumor removed, past seizure over 6 months ago, arthritis L knee, vertigo, occasional diarrhea, pt cannot recall why he takes lyrica. 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 Past Anesthesia/Blood Transfusion Reactions: No Reported Reaction Past Psychological History: Depression Smoking Status: Never smoker Past Alcohol Use History: None Reported Past Drug Use History: None Reported - Past Family History Father Family Medical History: Myocardial Infarction ([place]) Additional Family Medical History / Comment(s): Father of a [place] at the age of 57yrs. Mother Family Medical History: Cancer Additional Family Medical History / Comment(s): Mother from cancer at the age of 61 or 62 . Pt cannot recall type of cancer. Sister(s) Family Medical History: Diabetes Mellitus Additional Family Medical History / Comment(s): Sister had DM type 1. She is . Medications and Allergies Home Medications Medication Instructions Recorded Confirmed Type Phenytoin Sodium Extended 200 mg PO BID 11/17/16 11/05/20 History [Dilantin] Omeprazole 20 mg PO DAILY 06/13/17 11/05/20 History Pioglitazone HCl [Actos] 15 mg PO DAILY 10/03/18 11/05/20 History Diphenox-Atrop 2.5-0.025 mg 1 tab PO BID 11/17/19 11/05/20 History [Lomotil] Gentamicin 0.1% Cream 1 applic TOPICAL BID PRN 01/19/20 11/05/20 History HYDROcodone/APAP 5-325MG [[place] 1 tab PO BID PRN 01/19/20 11/05/20 History 5-325] Triamcinolone 0.5% Cream [Kenalog 1 applic TOPICAL DAILY PRN 01/19/20 11/05/20 History 0.5% Cream] Collagenase [Santyl] 1 applic TOPICAL DAILY 05/15/20 11/05/20 History Insulin Glargine [Lantus Vial] 50 unit SQ DAILY 05/15/20 11/05/20 History Pregabalin [Lyrica] 50 mg PO TID 05/15/20 11/05/20 History Rosuvastatin [Crestor] 10 mg PO HS 05/15/20 11/05/20 History Cephalexin [Keflex] 500 mg PO BID 11/05/20 11/05/20 History Allergies Allergy/AdvReac Type Severity Reaction Status Date / Time No Known Allergies Allergy Verified 11/05/20 19:55 Physical Exam Vitals: Vital Signs Temp Pulse Pulse Pulse Pulse Resp BP 11/07/20 08:00 106 H 104 H 96 14 11/07/20 07:00 98.3 F 96 17 11/07/20 02:00 97.8 F 64 15 11/06/20 23:48 16 11/06/20 20:00 98 F 91 104 H 16 11/06/20 14:20 98.5 F 104 H 18 11/06/20 14:00 98.5 F 104 H 18 11/06/20 12:39 106 H 121 H 91 106/65 BP BP Pulse Ox 11/07/20 08:00 11/07/20 07:00 100/64 97 11/07/20 02:00 100/64 99 11/06/20 23:48 11/06/20 20:00 108/69 97 11/06/20 14:20 104/66 98 11/06/20 14:00 104/66 98 11/06/20 12:39 80/55 116/71 Intake and Output 11/06/20 11/07/20 11/07/20 22:59 06:59 14:59 Intake Total 120 120 Output Total 250 Balance 120 -130 Intake: Oral 120 120 Output: Urine 250 Other: Voiding Method Toilet Toilet # Voids 1 1 1 GENERAL EXAM: Alert, very pleasant, frail-looking 60-year-old white male, on room air, pulse ox of 97%, resting comfortably in bed HEAD: Normocephalic/atraumatic. EYES: Normal reaction of pupils, equal size. Conjunctiva pink, sclera white. NOSE: Clear with pink turbinates. THROAT: No erythema or exudates. NECK: No masses, no JVD, no thyroid enlargement, no adenopathy. CHEST: No chest wall deformity. Symmetrical expansion. LUNGS: Equal air entry with no crackles, wheeze, rhonchi or dullness. CVS: Regular rate and rhythm, normal S1 and S2, no gallops, no murmurs, no rubs ABDOMEN: Soft, nontender. No hepatosplenomegaly, normal bowel sounds, no guarding or rigidity. EXTREMITIES: No clubbing, no edema, no cyanosis, 2+ pulses and upper and lower extremities. MUSCULOSKELETAL: Muscle strength and tone normal. SPINE: No scoliosis or deformity SKIN: No rashes CENTRAL NERVOUS SYSTEM: Alert and oriented -3. No focal deficits, tone is normal in all 4 extremities. PSYCHIATRIC: Alert and oriented -3. Appropriate affect. Intact judgment and insight. Results - Laboratory Findings CBC and BMP: 11/07/20 04:44 11/07/20 04:44 PT/INR, D-dimer PT 9.6 sec (9.0-12.0) 11/05/20 19:04 INR 0.9 (<1.2) 11/05/20 19:04 D-Dimer 0.20 mg/L FEU (<0.60) 11/05/20 19:04 Abnormal lab findings: Abnormal Labs 11/05/20 11/05/20 11/05/20 18:20 18:20 18:20 Hgb 12.9 L Hct MCV 73.1 L MCH 22.2 L MCHC 30.4 L RDW 17.4 H Plt Count 530 H Sodium 135 L Chloride 96 L Glucose 186 H POC Glucose (mg/dL) Hemoglobin A1c 13.8 H Calcium 10.3 H Total Bilirubin ALT Alkaline Phosphatase 163 H Total Protein 8.3 H Albumin Albumin/Globulin Ratio Triglycerides HDL Cholesterol 11/06/20 11/06/20 11/06/20 00:00 07:29 12:10 Hgb Hct MCV MCH MCHC RDW Plt Count Sodium Chloride Glucose POC Glucose (mg/dL) 236 H 385 H Hemoglobin A1c Calcium Total Bilirubin ALT Alkaline Phosphatase Total Protein Albumin Albumin/Globulin Ratio Triglycerides 182.0 H HDL Cholesterol 64.0 H 11/06/20 11/06/20 11/07/20 17:30 20:51 04:44 Hgb 10.1 L Hct 33.6 L MCV 71.6 L MCH 21.5 L MCHC 30.1 L RDW 18.6 H Plt Count Sodium Chloride Glucose POC Glucose (mg/dL) 279 H 338 H Hemoglobin A1c Calcium Total Bilirubin ALT Alkaline Phosphatase Total Protein Albumin Albumin/Globulin Ratio Triglycerides HDL Cholesterol 11/07/20 04:44 Hgb Hct MCV MCH MCHC RDW Plt Count Sodium Chloride Glucose POC Glucose (mg/dL) Hemoglobin A1c Calcium Total Bilirubin 0.1 L ALT 9 L Alkaline Phosphatase Total Protein Albumin 3.70 L Albumin/Globulin Ratio 1.37 L Triglycerides HDL Cholesterol - Diagnostic Findings Chest x-ray: report reviewed, image reviewed Additional studies: EKG reviewed, echocardiogram, carotid Doppler study, dobutamine stress echo results reviewed. Assessment and Plan Plan: Assessment: #1. Shortness of breath on admission, chest x-ray showing no acute abnormality, no fever, no cough. D-dimer is negative at 0.20, COVID-19 PCR was negative. Patient currently denies any shortness of breath, no pulmonary symptoms, no history of chronic lung disease. The cause of his shortness of breath is not clear, however there is no acute pulmonary abnormality evident #2. Syncopal episode in the emergency department, carotid Doppler ultrasound negative for hemodynamically significant stenosis #3. History of nonhealing ulcers of the lower extremities, being followed at the wound care clinic #4. History of diabetes mellitus type 1, with previous episodes of DKA #5. History of seizure disorder on Dilantin #6. Hyperlipidemia #7. Never smoker #8. Osteoarthritis #9. His history of MRSA infection Plan: No acute pulmonary abnormality is evident No pulmonary symptoms at this time No cough, no chest pain, production From pulmonary perspective he could be considered for discharge home when cleared by cardiology I performed a history & physical examination of the patient and discussed their management with my nurse practitioner, Scarlett Latham. I reviewed the nurse practitioner's note and agree with the documented findings and plan of care. Lung sounds are positive for clear breath sounds throughout the lung kang. The findings and the impression was discussed with the patient. I attest to the documentation by the nurse practitioner. Time with Patient: Greater than 30
[2020-11-07 12:18] LABS: Glucose,Whole Blood 265 mg/dL (75-99)
--- NOTE | 2020-11-07 14:13 | P.DS ---
Providers Date of admission: 11/05/20 19:55 Expected date of discharge: 11/07/20 Attending physician: Helen Chen Consults: 11/05/20 19:53 Consult Physician Urgent Consulting Provider: Cameron Martin Consult Reason/Comments: Exertional dyspnea, syncope Do you want consulting provider notified?: Yes 11/06/20 19:06 Consult Physician Routine Consulting Provider: Junie Cunningham Consult Reason/Comments: Shortness of breath Do you want consulting provider notified?: Yes Primary care physician: Helen Chen [place] Course: Discharge diagnosis Worsening shortness of breath over the last week cause is not clear, cardiology consultation was requested, cardiac testing is is ordered today Syncopal episode in the emergency room, will add carotid Doppler check Underlying history of nonhealing ulcers on the lower extremities followed by the wound care clinic Underlying history of hyperlipidemia maintained on Crestor Underlying history of underlying history of seizure disorder maintained on Dilantin Underlying history of insulin-dependent diabetes mellitus Hospital course Pietro Ryder, is a 60-year-old male, who presented to [facility] emergency room with a chief complaint of shortness of breath that started 1 week ago and has been worsening, he denies any other symptoms there was no fever or chills no cough no chest pain and no relation to his Toro of breath to exertion. He was evaluated in the emergency room vital examination on presentation revealed a temperature of 98 pulse 129 respiration 18 blood pressure 97/67 pulse ox 98% on room air, While being evaluated in the emergency room patient had a syncopal episode was loss of consciousness. Laboratory data revealed a white blood count of 10.3 hemoglobin 12.9 platelet count 530 sodium 135 potassium 4.1 chloride 96 CO2 25 BUN 19 creatinine 0.75 troponin level less than 0.012 d-dimer 0.2 COVID-19 PCR was negative Testing in the emergency room revealed EKG revealed normal sinus rhythm normal EKG chest x-ray revealed normal findings Patient was admitted to medical floor for further evaluation and treatment. On 11/07/2020 patient's alert and oriented 3. Patient underwent stress test yesterday. Did discuss with cardiology services. Per cardiology stress test was negative cleared for discharge. patient also evaluated by pulmonary cleared for d/c. She denies chest pain or shortness breath. Patient denies nausea vomiting or diarrhea. Patient denies any urinary burning or frequency. Patient is eager to be DC'd Patient Condition at Discharge: Stable Plan - Discharge Summary New Discharge Prescriptions: Continue Phenytoin Sodium Extended [Dilantin] 200 mg PO BID Omeprazole 20 mg PO DAILY Pioglitazone HCl [Actos] 15 mg PO DAILY Diphenox-Atrop 2.5-0.025 mg [Lomotil] 1 tab PO BID HYDROcodone/APAP 5-325MG [[place] 5-325] 1 tab PO BID PRN PRN Reason: Pain Gentamicin 0.1% Cream 1 applic TOPICAL BID PRN PRN Reason: left leg Triamcinolone 0.5% Cream [Kenalog 0.5% Cream] 1 applic TOPICAL DAILY PRN PRN Reason: Rash Rosuvastatin [Crestor] 10 mg PO HS Pregabalin [Lyrica] 50 mg PO TID Collagenase [Santyl] 1 applic TOPICAL DAILY Insulin Glargine [Lantus Vial] 50 unit SQ DAILY Cephalexin [Keflex] 500 mg PO BID Discharge Medication List Phenytoin Sodium Extended [Dilantin] 200 mg PO BID 11/17/16 [History] Omeprazole 20 mg PO DAILY 06/13/17 [History] Pioglitazone HCl [Actos] 15 mg PO DAILY 10/03/18 [History] Diphenox-Atrop 2.5-0.025 mg [Lomotil] 1 tab PO BID 11/17/19 [History] Gentamicin 0.1% Cream 1 applic TOPICAL BID PRN 01/19/20 [History] HYDROcodone/APAP 5-325MG [[place] 5-325] 1 tab PO BID PRN 01/19/20 [History] Triamcinolone 0.5% Cream [Kenalog 0.5% Cream] 1 applic TOPICAL DAILY PRN 01/19/20 [History] Collagenase [Santyl] 1 applic TOPICAL DAILY 05/15/20 [History] Insulin Glargine [Lantus Vial] 50 unit SQ DAILY 05/15/20 [History] Pregabalin [Lyrica] 50 mg PO TID 05/15/20 [History] Rosuvastatin [Crestor] 10 mg PO HS 05/15/20 [History] Cephalexin [Keflex] 500 mg PO BID 11/05/20 [History] Follow up Appointment(s)/Referral(s): Helen Chen MD [Primary Care Provider] - 1-2 days Mikel Martinez MD [STAFF PHYSICIAN] - 1 Week Activity/Diet/Wound Care/Special Instructions: Activity as tolerated Diet heart healthy Discharge Disposition: HOME SELF-CARE
[2020-11-07 15:23] VITALS: BP 103/66; RESP 16; TEMP 98.4
[2020-11-07 16:33] VITALS: PULSE 106
[2020-11-07 16:48] LABS: Glucose,Whole Blood 180 mg/dL (75-99)
== END 2020-11-07 16:58 | disposition home or self-care (01) ==
LOC: EC 16:37 → 6NMEDSUR 19:55
PROVIDERS: ADMIT Internal Medicine; ATTEND Internal Medicine
DX: R06.09 Other forms of dyspnea (principal); R55 Syncope and collapse; Z20.822 Contact with and (suspected) exposure to COVID-19; E10.9 Type 1 diabetes mellitus without complications; E78.5 Hyperlipidemia, unspecified; F32.9 Major depressive disorder, single episode, unspecified; G40.909 Epilepsy, unspecified, not intractable, without status epilepticus; L08.9 Local infection of the skin and subcutaneous tissue, unspecified; M17.12 Unilateral primary osteoarthritis, left knee; Z56.0 Unemployment, unspecified; Z68.1 Body mass index [BMI] 19.9 or less, adult; Z79.4 Long term (current) use of insulin; Z79.899 Other long term (current) drug therapy; Z80.9 Family history of malignant neoplasm, unspecified; Z82.49 Family history of ischemic heart disease and other diseases of the circulatory system; Z83.3 Family history of diabetes mellitus; Z86.14 Personal history of Methicillin resistant Staphylococcus aureus infection
CPT/HCPCS: 99285; 36415; 93005; 93351; 93306; 85379; 83880; 80061; 80053 ×2; 83605; 84484 ×2; 85025 ×2; 85610; 85730; 83036; 87635; 71046; 93880; G0378 ×3; J1250

== ENCOUNTER 2020-12-29 17:27 | Inpatient (IN) | payer OTHER ==
[2020-12-29] MEDS ORDERED: SODIUM CHLORIDE 0.9% 1,000 ML IV STA (19:05)
[2020-12-29] MEDS ORDERED: ONDANSETRON 4 MG/2 ML VIAL IVP STA ×2 (19:07→21:57)
--- NOTE | 2020-12-29 19:23 | ED ---
General Adult HPI - History of Present Illness -: days(s) (2) Radiation: abdomen, proximal Quality: crushing Consistency: constant Improves with: none Worsens with: none Associated Symptoms: denies other symptoms Treatments Prior to Arrival: none <Heber Venegas - Last Filed: 12/29/20 22:33> - General Source: patient Mode of arrival: ambulatory Limitations: no limitations <Dominique Santiago - Last Filed: 12/30/20 00:38> - General Chief complaint: Shortness of Breath Stated complaint: sob Time Seen by Provider: 12/29/20 18:49 - History of Present Illness Initial comments: 60-year-old male with a history of type 1 diabetes presents to the emergency department with complaints of shortness of breath and racing heart, onset 2 days ago. States the shortness of breath is worsened with activity and his elevated heart rate remains persistent and unchanged. Patient states the symptoms are also accompanied by mild nausea and decreased appetite. Reports morning glucose of 137. Patient denies fever, chills, headache, chest pain, abdominal pain, and bowel or bladder changes. (Dominique Santiago) - Related Data Home Medications Medication Instructions Recorded Confirmed Phenytoin Sodium Extended 200 mg PO BID 11/17/16 12/29/20 [Dilantin] Omeprazole 20 mg PO DAILY 06/13/17 12/29/20 Pioglitazone HCl [Actos] 15 mg PO DAILY 10/03/18 12/29/20 Diphenox-Atrop 2.5-0.025 mg 1 tab PO BID PRN 11/17/19 12/29/20 [Lomotil] Triamcinolone 0.5% Cream [Kenalog 1 applic TOPICAL DAILY PRN 01/19/20 12/29/20 0.5% Cream] Collagenase [Santyl] 1 applic TOPICAL DAILY 05/15/20 12/29/20 Insulin Glargine [Lantus Vial] 30 unit SQ DAILY 05/15/20 12/29/20 Pregabalin [Lyrica] 50 mg PO TID PRN 05/15/20 12/29/20 Rosuvastatin [Crestor] 10 mg PO HS 05/15/20 12/29/20 Mupirocin 2% Oint [Bactroban 2% 1 applic TOPICAL DAILY 12/29/20 12/29/20 Oint] Allergies Allergy/AdvReac Type Severity Reaction Status Date / Time No Known Allergies Allergy Verified 12/29/20 20:35 Review of Systems ROS Other: All systems not noted in ROS Statement are negative. <Heber Venegas - Last Filed: 12/29/20 22:33> ROS Other: All systems not noted in ROS Statement are negative. <Dominique Santiago - Last Filed: 12/30/20 00:38> ROS Statement: Those systems with pertinent positive or pertinent negative responses have been documented in the HPI. Past Medical History Past Medical History: Cancer, Diabetes Mellitus, GERD/Reflux, Hyperlipidemia, Osteoarthritis (OA), Seizure Disorder Additional Past Medical History / Comment(s): IDDM type 1, wounds to upper back from scratching and L leg-seen at [facility], past L lower extremity cellulitis with sepsis, L wrist cancerous tumor removed, past seizure over 6 months ago, arthritis L knee, vertigo, occasional diarrhea, pt cannot recall why he takes ly arnold. 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 Past Anesthesia/Blood Transfusion Reactions: No Reported Reaction Past Psychological History: Depression Smoking Status: Never smoker Past Alcohol Use History: None Reported Past Drug Use History: None Reported - Past Family History Father Family Medical History: Myocardial Infarction ([place]) Additional Family Medical History / Comment(s): Father of a [place] at the age of 57yrs. Mother Family Medical History: Cancer Additional Family Medical History / Comment(s): Mother from cancer at the age of 61 or 62 . Pt cannot recall type of cancer. Sister(s) Family Medical History: Diabetes Mellitus Additional Family Medical History / Comment(s): Sister had DM type 1. She is . <Dominique Santiago - Last Filed: 12/30/20 00:38> General Exam General appearance: alert, anxious, in distress Head exam: Present: atraumatic, normocephalic, normal inspection Eye exam: Present: normal appearance, PERRL, EOMI. Absent: scleral icterus, conjunctival injection, periorbital swelling ENT exam: Present: normal exam, mucous membranes moist Neck exam: Present: normal inspection. Absent: tenderness, meningismus, lymphadenopathy Respiratory exam: Present: normal lung sounds bilaterally. Absent: respiratory distress, wheezes, rales, rhonchi, stridor Cardiovascular Exam: Present: normal rhythm, tachycardia, normal heart sounds. Absent: systolic murmur, diastolic murmur, rubs, gallop, clicks GI/Abdominal exam: Present: soft, normal bowel sounds. Absent: distended, tenderness, guarding, rebound, rigid Extremities exam: Present: normal inspection, full ROM, normal capillary refill. Absent: tenderness, pedal edema, joint swelling, calf tenderness Back exam: Present: normal inspection Neurological exam: Present: alert, oriented X3, CN II-XII intact Psychiatric exam: Present: normal affect, normal mood Skin exam: Present: warm, dry, intact, normal color. Absent: rash <Heber Venegas - Last Filed: 12/29/20 22:33> Limitations: no limitations (Well-developed male in no acute distress. Initial temperature 96.9, rechecked 98.4, pulse 127, recheck 111, respiration 20, blood pressure 173/75, pulse ox 97% on room air.) General appearance: alert, in no apparent distress Eye exam: Present: normal appearance, PERRL, EOMI. Absent: scleral icterus, conjunctival injection, periorbital swelling Respiratory exam: Present: normal lung sounds bilaterally. Absent: respiratory distress, wheezes, rales, rhonchi, stridor Cardiovascular Exam: Present: normal rhythm, tachycardia, normal heart sounds GI/Abdominal exam: Present: soft, normal bowel sounds. Absent: distended, tenderness, guarding Neurological exam: Present: alert, oriented X3, CN II-XII intact Psychiatric exam: Present: normal affect, normal mood Skin exam: Present: warm, dry, pallor. Absent: rash <Dominique Santiago - Last Filed: 12/30/20 00:38> Course <Heber Venegas - Last Filed: 12/29/20 22:33> <Dominique Santiago - Last Filed: 12/30/20 00:38> Vital Signs 10/12/29/20 12/29/20 18:21 22:27 23:16 Temperature 96.9 F L 97.7 F Pulse Rate 127 H 117 H 112 H Respiratory 20 16 16 Rate Blood Pressure 173/75 144/73 149/96 O2 Sat by Pulse 97 97 98 Oximetry - Reevaluation(s) Reevaluation #1: 12/29/20 21:57 Patient complains of headache and nausea with one episode of vomiting. Second liter of IV fluids currently infusing. Patient states he is feeling no better. (Dominique Santiago) - Consultations Consultation #1: spoke with Dr Chen for admission he is agreeable (Heber Venegas) Medical Decision Making - Lab Data Result diagrams: 12/29/20 19:28 12/29/20 19:28 <Heber Venegas - Last Filed: 12/29/20 22:33> - Lab Data Result diagrams: 12/29/20 19:28 12/29/20 19:28 - EKG Data EKG shows normal: sinus rhythm Rate: normal - Radiology Data Radiology results: image reviewed <Dominique Santiago - Last Filed: 12/30/20 00:38> - Medical Decision Making 60-year-old male with a history of type 1 diabetes presents to the emergency department for evaluation of shortness of breath and elevated heart rate. Upon exam, Patient is pale, has vomited, and appears uncomfortable. He is noted to be tachycardic with a rate in the 110s. Patient is afebrile and denies any known sick contacts, hyperglycemia, or chest pain. Home medication regimen includes 30 units of insulin daily that is self administered, patient does not wear a pump. Lab findings are consistent with that of DKA. Initial glucose 416, aceton e positive, urine 4+ glucose and 4+ ketones. Carbon dioxide 8. COVID was negative. Patient was given 2 L of IV fluids, pain medicine for headache, and nausea medicine for vomiting. This patient's case was discussed with my attending Dr. Venegas. Patient will be started on an insulin drip and admitted to the hospital. Further care has been assumed by Dr. Venegas. (Dominique Santiago) - Lab Data Lab Results 12/29/20 12/29/20 12/29/20 Range/Units 19:28 19:28 19:28 WBC 8.4 (3.8-10.6) k/uL RBC 5.41 (4.30-5.90) m/uL Hgb 12.1 L (13.0-17.5) gm/dL Hct 41.7 (39.0-53.0) % MCV 77.2 L (80.0-100.0) fL MCH 22.3 L (25.0-35.0) pg MCHC 28.9 L (31.0-37.0) g/dL RDW 16.9 H (11.5-15.5) % Plt Count 596 H (150-450) k/uL MPV 7.1 Neutrophils % 81 % Lymphocytes % 14 % Monocytes % 3 % Eosinophils % 0 % Basophils % 1 % Neutrophils # 6.9 (1.3-7.7) k/uL Lymphocytes # 1.1 (1.0-4.8) k/uL Monocytes # 0.3 (0-1.0) k/uL Eosinophils # 0.0 (0-0.7) k/uL Basophils # 0.0 (0-0.2) k/uL Hypochromasia Marked Anisocytosis Slight Microcytosis Slight PT 9.3 (9.0-12.0) sec INR 0.8 (<1.2) APTT 25.4 (22.0-30.0) sec D-Dimer 0.39 (<0.60) mg/L FEU Sodium 134 L (137-145) mmol/L Potassium 4.8 (3.5-5.1) mmol/L Chloride 98 (98-107) mmol/L Carbon Dioxide 8 L* (22-30) mmol/L Anion Gap 28 mmol/L BUN 13 (9-20) mg/dL Creatinine 0.86 (0.66-1.25) mg/dL Est GFR (CKD-EPI)AfAm >90 (>60 ml/min/1.73 sqM) Est GFR (CKD-EPI)NonAf >90 (>60 ml/min/1.73 sqM) Glucose 416 H (74-99) mg/dL Plasma Lactic Acid Michael (0.7-2.0) mmol/L Calcium 9.9 (8.4-10.2) mg/dL Magnesium 2.1 (1.6-2.3) mg/dL Total Bilirubin 0.3 (0.2-1.3) mg/dL AST 16 L (17-59) U/L ALT 9 (4-49) U/L Alkaline Phosphatase 173 H (38-126) U/L Troponin I (0.000-0.034) ng/mL Total Protein 8.3 H (6.3-8.2) g/dL Albumin 4.6 (3.5-5.0) g/dL Urine Color Urine Appearance (Clear) Urine pH (5.0-8.0) Ur Specific [place] (1.001-1.035) Urine Protein (Negative) Urine Glucose (UA) (Negative) Urine Ketones (Negative) Urine Blood (Negative) Urine Nitrite (Negative) Urine Bilirubin (Negative) Urine Urobilinogen (<2.0) mg/dL Ur Leukocyte Esterase (Negative) Acetone, Qual Positive (Negative) 12/29/20 12/29/20 12/29/20 Range/Units 19:28 19:28 19:28 WBC (3.8-10.6) k/uL RBC (4.30-5.90) m/uL Hgb (13.0-17.5) gm/dL Hct (39.0-53.0) % MCV (80.0-100.0) fL MCH (25.0-35.0) pg MCHC (31.0-37.0) g/dL RDW (11.5-15.5) % Plt Count (150-450) k/uL MPV Neutrophils % % Lymphocytes % % Monocytes % % Eosinophils % % Basophils % % Neutrophils # (1.3-7.7) k/uL Lymphocytes # (1.0-4.8) k/uL Monocytes # (0-1.0) k/uL Eosinophils # (0-0.7) k/uL Basophils # (0-0.2) k/uL Hypochromasia Anisocytosis Microcytosis PT (9.0-12.0) sec INR (<1.2) APTT (22.0-30.0) sec D-Dimer (<0.60) mg/L FEU Sodium (137-145) mmol/L Potassium (3.5-5.1) mmol/L Chloride (98-107) mmol/L Carbon Dioxide (22-30) mmol/L Anion Gap mmol/L BUN (9-20) mg/dL Creatinine (0.66-1.25) mg/dL Est GFR (CKD-EPI)AfAm (>60 ml/min/1.73 sqM) Est GFR (CKD-EPI)NonAf (>60 ml/min/1.73 sqM) Glucose (74-99) mg/dL Plasma Lactic Acid Michael 1.0 (0.7-2.0) mmol/L Calcium (8.4-10.2) mg/dL Magnesium (1.6-2.3) mg/dL Total Bilirubin (0.2-1.3) mg/dL AST (17-59) U/L ALT (4-49) U/L Alkaline Phosphatase (38-126) U/L Troponin I <0.012 (0.000-0.034) ng/mL Total Protein (6.3-8.2) g/dL Albumin (3.5-5.0) g/dL Urine Color Light Yellow Urine Appearance Clear (Clear) Urine pH 5.5 (5.0-8.0) Ur Specific [place] 1.024 (1.001-1.035) Urine Protein Trace H (Negative) Urine Glucose (UA) 4+ H (Negative) Urine Ketones 4+ H (Negative) Urine Blood Negative (Negative) Urine Nitrite Negative (Negative) Urine Bilirubin Negative (Negative) Urine Urobilinogen <2.0 (<2.0) mg/dL Ur Leukocyte Esterase Negative (Negative) Acetone, Qual (Negative) - EKG Data EKG Comments: EKG was obtained at 1845 shows sinus tachycardia with biatrial enlargement. Ventricular rate 111, DC interval 122, QRS duration 84, QT/QTC 322/437. (Dominique Santiago) - Radiology Data Two-view chest x-ray was obtained. Report was reviewed in its entirety. Impression per Dr. Anthony as there is no acute cardiopulmonary process. (Dominique Santiago) Critical Care Time Critical Care Time: Yes Total Critical Care Time: 31 <Heber Venegas - Last Filed: 12/29/20 22:33> Disposition Is patient prescribed a controlled substance at d/c from ED?: No <Heber Venegas - Last Filed: 12/29/20 22:33> <Dominique Santiago - Last Filed: 12/30/20 00:38> Clinical Impression: DKA (diabetic ketoacidoses), Nausea & vomiting, Dehydration, Uncontrolled diabetes mellitus Disposition: ADMITTED IP TO THIS [facility] Condition: Serious
--- NOTE | 2020-12-29 19:58 | XR ---
EXAMINATION TYPE: XR chest 2V DATE OF EXAM: 12/29/2020 COMPARISON: Chest radiograph 11/05/2020 HISTORY: Shortness of breath TECHNIQUE: Frontal and lateral views of the chest are obtained. FINDINGS: There is no focal air space opacity, pleural effusion, or pneumothorax seen. The cardiac silhouette size is within normal limits. The osseous structures are intact. IMPRESSION: No acute cardiopulmonary process.
[2020-12-29 20:01] LABS: Anisocytosis Slight; Basophils % (A) 1 %; Eosinophils % (A) 0 %; HCT 41.7 % (39.0-53.0); HGB 12.1 gm/dL (13.0-17.5); Hypochromasia Marked; Lymphocytes # (A) 1.1 k/uL (1.0-4.8); Lymphocytes % (A) 14 %; MCH 22.3 pg (25.0-35.0); MCHC 28.9 g/dL (31.0-37.0); MCV 77.2 fL (80.0-100.0); Mean Platelet Volume 7.1; Microcytosis Slight; Monocytes # (A) 0.3 k/uL (0-1.0); Monocytes % (A) 3 %; Neutrophils # (A) 6.9 k/uL (1.3-7.7); Neutrophils % (A) 81 %; Platelet Count 596 k/uL (150-450); RBC 5.41 m/uL (4.30-5.90); RDW 16.9 % (11.5-15.5); WBC 8.4 k/uL (3.8-10.6)
[2020-12-29 20:03] LABS: ALT 9 U/L (4-49); AST 16 U/L (17-59); African American GFR (CKD) >90 (>60 ml/min/1.73 sqM); Albumin 4.6 g/dL (3.5-5.0); Alkaline Phosphatase 173 U/L (38-126); Anion Gap 28 mmol/L; Blood Urea Nitrogen 13 mg/dL (9-20); Calcium 9.9 mg/dL (8.4-10.2); Chloride 98 mmol/L (98-107); Glucose 416 mg/dL (74-99); Magnesium 2.1 mg/dL (1.6-2.3); Non-African American GFR(CKD) >90 (>60 ml/min/1.73 sqM); Potassium 4.8 mmol/L (3.5-5.1); Sodium 134 mmol/L (137-145); Total Bilirubin 0.3 mg/dL (0.2-1.3); Total Protein 8.3 g/dL (6.3-8.2)
[2020-12-29 20:07] LABS: Carbon Dioxide 8 mmol/L (22-30)
[2020-12-29 20:10] LABS: INR 0.8 (<1.2); Partial Thromboplastin Time 25.4 sec (22.0-30.0); Prothrombin Time 9.3 sec (9.0-12.0)
[2020-12-29 20:34] LABS: Appearance,Urine Clear (Clear); Bilirubin,Urine Negative (Negative); Blood,Urine Negative (Negative); Color,Urine Light Yellow; Glucose,Urine (UA) 4+ (Negative); Leukocyte Esterase,Urine Negative (Negative); Nitrite,Urine Negative (Negative); PH, Urine 5.5 (5.0-8.0); Protein,Urine Trace (Negative); Specific Gravity,Urine 1.024 (1.001-1.035); Urobilinogen,Urine <2.0 mg/dL (<2.0)
[2020-12-29] MEDS ORDERED: SODIUM CHLORIDE 0.9% 1,000 ML IV ONE (20:34)
[2020-12-29 21:05] LABS: Ketones,Urine 4+ (Negative)
[2020-12-29] MEDS: D5-0.45% NACL WITH KCL 20MEQ/L 1,000 ML IV SCH (21:57)
[2020-12-29] MEDS ORDERED: HYDROmorphone 0.5 MG/0.5 ML SYRINGE IVP STA (21:57)
[2020-12-29] MEDS: INSULIN REGULAR 100 UNIT in SODIUM CHLORIDE 0.9% 100 ML IV SCH (21:58)
[2020-12-29] MEDS ORDERED: MORPHINE SULFATE 4 MG/ML SYRINGE IV PRN (22:32)
[2020-12-29] MEDS ORDERED: ACETAMINOPHEN TAB 325 MG TAB PO PRN (22:32)
[2020-12-29] MEDS ORDERED: NALOXONE 0.4 MG/ML 1 ML VIAL IV PRN (22:32)
[2020-12-29] MEDS ORDERED: ONDANSETRON 4 MG/2 ML VIAL IVP PRN (22:32)
[2020-12-29 23:07] LABS: Glucose,Whole Blood 311 mg/dL (75-99)
[2020-12-30 00:31] LABS: Glucose,Whole Blood 209 mg/dL (75-99)
[2020-12-30 00:44] LABS: African American GFR (CKD) >90 (>60 ml/min/1.73 sqM); Anion Gap 19 mmol/L; Blood Urea Nitrogen 12 mg/dL (9-20); Carbon Dioxide 10 mmol/L (22-30); Chloride 107 mmol/L (98-107); Glucose 234 mg/dL (74-99); Non-African American GFR(CKD) >90 (>60 ml/min/1.73 sqM); Phosphorus 3.5 mg/dL (2.5-4.5); Potassium 4.3 mmol/L (3.5-5.1); Sodium 136 mmol/L (137-145)
[2020-12-30 02:09] LABS: Glucose,Whole Blood 135 mg/dL (75-99)
[2020-12-30 03:36] LABS: Glucose,Whole Blood 108 mg/dL (75-99)
[2020-12-30 04:53] LABS: Anisocytosis Slight; Basophils % (A) 1 %; Eosinophils % (A) 0 %; HCT 32.4 % (39.0-53.0); Hypochromasia Marked; Lymphocytes # (A) 1.6 k/uL (1.0-4.8); Lymphocytes % (A) 21 %; MCH 22.1 pg (25.0-35.0); MCHC 30.2 g/dL (31.0-37.0); Mean Platelet Volume 6.8; Microcytosis Moderate; Monocytes # (A) 0.5 k/uL (0-1.0); Monocytes % (A) 7 %; Neutrophils # (A) 5.3 k/uL (1.3-7.7); Neutrophils % (A) 69 %; Platelet Count 511 k/uL (150-450); RBC 4.44 m/uL (4.30-5.90); RDW 16.8 % (11.5-15.5); WBC 7.6 k/uL (3.8-10.6)
[2020-12-30 04:54] LABS: HGB 9.8 gm/dL (13.0-17.5)
[2020-12-30 05:20] LABS: ALT 7 U/L (4-49); AST 15 U/L (17-59); African American GFR (CKD) >90 (>60 ml/min/1.73 sqM); Albumin 3.5 g/dL (3.5-5.0); Alkaline Phosphatase 120 U/L (38-126); Anion Gap 13 mmol/L; Blood Urea Nitrogen 11 mg/dL (9-20); Calcium 8.9 mg/dL (8.4-10.2); Carbon Dioxide 15 mmol/L (22-30); Chloride 109 mmol/L (98-107); Glucose 106 mg/dL (74-99); Non-African American GFR(CKD) >90 (>60 ml/min/1.73 sqM); Phosphorus 2.6 mg/dL (2.5-4.5); Potassium 4.6 mmol/L (3.5-5.1); Sodium 137 mmol/L (137-145); Total Bilirubin 0.3 mg/dL (0.2-1.3); Total Protein 6.7 g/dL (6.3-8.2)
[2020-12-30 05:33] LABS: Glucose,Whole Blood 112 mg/dL (75-99)
[2020-12-30 06:42] LABS: Glucose,Whole Blood 138 mg/dL (75-99)
[2020-12-30] MEDS: SODIUM CHLORIDE 0.9% 1,000 ML IV SCH ×4 (06:42→17:03)
[2020-12-30 07:59] LABS: Glucose,Whole Blood 157 mg/dL (75-99)
[2020-12-30] MEDS: D5-0.45% NACL WITH KCL 20MEQ/L 1,000 ML IV SCH ×3 (08:10→21:37)
[2020-12-30] MEDS ORDERED: PANTOPRAZOLE 40 MG/10 ML VIAL IV SCH (09:00)
[2020-12-30] MEDS ORDERED: TRIAMCINOLONE ACET 0.5% CREAM 15 GM TUBE TOPICAL PRN (09:21)
[2020-12-30] MEDS ORDERED: DIPHENOX-ATROP 2.5-0.025 MG 1 EACH TAB PO PRN (09:21)
[2020-12-30] MEDS ORDERED: PREGABALIN 50 MG CAP PO PRN (09:21)
[2020-12-30 09:23] LABS: Glucose,Whole Blood 235 mg/dL (75-99)
[2020-12-30] MEDS ORDERED: NON FORMULARY DRUG (Omeprazole [Omeprazole] 20 MG Capsule.Dr) PO SCH (09:30)
[2020-12-30] MEDS: PHENYTOIN SODIUM EXTENDED 100 MG CAP PO SCH (09:49)
--- NOTE | 2020-12-30 10:25 | P.HPIM ---
History of Present Illness H&P Date: 12/30/20 Pietro Ryder, is a 60 year old male who presented to [facility] ER with a chief complaint of shortness breath with racing heart rate and nausea and vomiting. Patient reports this has been occurring over the past 3 days. Patient denies any fever or recent illness at home patient does have past medical history of diabetes mellitus type 1, GERD, hyperlipidemia, osseous rate is, seizure disorder and depression. Chest x-ray was completed showing no acute cardiopulmonary process. D-dimer normal. COVID-19 negative. EKG showing sinus tachycardia. UA positive for ketones and glucose. Initial anion gap 28 and CO2 level 8. Initial treatment for DKA started in ER. Patient currently on insulin drip. At this time patient will be admitted continued DKA protocol. Repeat labs ordered. Patient still complaining of 6 some shortness of breath nausea and vomiting. Patient denies chest pain. Patient denies any urinary burning or frequency. Current vitals temp 98.8 heart rate 91 blood pressure 110/62 and oxygen saturation 100% on room air. Review of Systems Please refer to HPI otherwise unremarkable Past Medical History Past Medical History: Cancer, Diabetes Mellitus, GERD/Reflux, Hyperlipidemia, Osteoarthritis (OA), Seizure Disorder Additional Past Medical History / Comment(s): IDDM type 1, wounds to upper back from scratching and L leg-seen at [facility], past L lower extremity cellulitis with sepsis, L wrist cancerous tumor removed, past seizure over 6 months ago, arthritis L knee, vertigo, occasional diarrhea, pt cannot recall why he takes lyrica. 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 Past Anesthesia/Blood Transfusion Reactions: No Reported Reaction Past Psychological History: Depression Smoking Status: Never smoker Past Alcohol Use History: None Reported Past Drug Use History: None Reported - Past Family History Father Family Medical History: Myocardial Infarction ([place]) Additional Family Medical History / Comment(s): Father of a [place] at the age of 57yrs. Mother Family Medical History: Cancer Additional Family Medical History / Comment(s): Mother from cancer at the age of 61 or 62 . Pt cannot recall type of cancer. Sister(s) Family Medical History: Diabetes Mellitus Additional Family Medical History / Comment(s): Sister had DM type 1. She is . Medications and Allergies Home Medications Medication Instructions Recorded Confirmed Type Phenytoin Sodium Extended 200 mg PO BID 11/17/16 12/29/20 History [Dilantin] Omeprazole 20 mg PO DAILY 06/13/17 12/29/20 History Pioglitazone HCl [Actos] 15 mg PO DAILY 10/03/18 12/29/20 History Diphenox-Atrop 2.5-0.025 mg 1 tab PO BID PRN 11/17/19 12/29/20 History [Lomotil] Triamcinolone 0.5% Cream [Kenalog 1 applic TOPICAL DAILY PRN 01/19/20 12/29/20 History 0.5% Cream] Collagenase [Santyl] 1 applic TOPICAL DAILY 05/15/20 12/29/20 History Insulin Glargine [Lantus Vial] 30 unit SQ DAILY 05/15/20 12/29/20 History Pregabalin [Lyrica] 50 mg PO TID PRN 05/15/20 12/29/20 History Rosuvastatin [Crestor] 10 mg PO HS 05/15/20 12/29/20 History Mupirocin 2% Oint [Bactroban 2% 1 applic TOPICAL DAILY 12/29/20 12/29/20 History Oint] Allergies Allergy/AdvReac Type Severity Reaction Status Date / Time No Known Allergies Allergy Verified 12/29/20 20:35 Physical Exam Vitals: Vital Signs Temp Pulse Resp BP Pulse Ox 12/30/20 08:04 98.8 F 91 16 110/62 97 12/30/20 06:44 98 F 98 16 110/62 98 12/30/20 05:45 97.8 F 98 18 109/63 97 12/30/20 03:29 97.7 F 93 16 119/62 98 12/29/20 23:16 97.7 F 112 H 16 149/96 98 12/29/20 22:27 117 H 16 144/73 97 12/29/20 18:21 96.9 F L 127 H 20 173/75 97 Intake and Output 12/29/20 12/30/20 12/30/20 22:59 06:59 14:59 Intake Total 30.381 Balance 30.381 Intake: Intake, IV Titration 30.381 Amount Insulin Regular 100 unit 30.381 In Sodium Chloride 0.9% 100 ml @ 0.1 UNITS/KG/HR 4.719 mls/hr IV .[id number] [facility] Rx#:[id number] Other: Weight 46.72 kg Head normocephalic Neck supple Lungs clear to auscultation bilaterally no wheezing or crackles Heart regular rate and rhythm S1-S2, no rub or gallop Abdomen is soft nontender nondistended positive bowel sounds no hepatosplenomegaly Extremities no edema Neuro alert and orientated to 3 Results CBC & Chem 7: 12/30/20 03:54 12/30/20 03:54 Labs: Abnormal Lab Results - Last 24 Hours (Table) 12/29/20 12/29/20 12/29/20 Range/Units 19:28 19:28 19:28 Hgb 12.1 L (13.0-17.5) gm/dL Hct (39.0-53.0) % MCV 77.2 L (80.0-100.0) fL MCH 22.3 L (25.0-35.0) pg MCHC 28.9 L (31.0-37.0) g/dL RDW 16.9 H (11.5-15.5) % Plt Count 596 H (150-450) k/uL Sodium 134 L (137-145) mmol/L Chloride (98-107) mmol/L Carbon Dioxide 8 L* (22-30) mmol/L Glucose 416 H (74-99) mg/dL POC Glucose (mg/dL) (75-99) mg/dL AST 16 L (17-59) U/L Alkaline Phosphatase 173 H (38-126) U/L Total Protein 8.3 H (6.3-8.2) g/dL Urine Protein Trace H (Negative) Urine Glucose (UA) 4+ H (Negative) Urine Ketones 4+ H (Negative) 12/29/20 12/29/20 12/30/20 Range/Units 23:05 23:54 00:29 Hgb (13.0-17.5) gm/dL Hct (39.0-53.0) % MCV (80.0-100.0) fL MCH (25.0-35.0) pg MCHC (31.0-37.0) g/dL RDW (11.5-15.5) % Plt Count (150-450) k/uL Sodium 136 L (137-145) mmol/L Chloride (98-107) mmol/L Carbon Dioxide 10 L (22-30) mmol/L Glucose 234 H (74-99) mg/dL POC Glucose (mg/dL) 311 H 209 H (75-99) mg/dL AST (17-59) U/L Alkaline Phosphatase (38-126) U/L Total Protein (6.3-8.2) g/dL Urine Protein (Negative) Urine Glucose (UA) (Negative) Urine Ketones (Negative) 12/30/20 12/30/20 12/30/20 Range/Units 02:06 03:24 03:54 Hgb (13.0-17.5) gm/dL Hct (39.0-53.0) % MCV (80.0-100.0) fL MCH (25.0-35.0) pg MCHC (31.0-37.0) g/dL RDW (11.5-15.5) % Plt Count (150-450) k/uL Sodium (137-145) mmol/L Chloride 109 H (98-107) mmol/L Carbon Dioxide 15 L (22-30) mmol/L Glucose 106 H (74-99) mg/dL POC Glucose (mg/dL) 135 H 108 H (75-99) mg/dL AST 15 L (17-59) U/L Alkaline Phosphatase (38-126) U/L Total Protein (6.3-8.2) g/dL Urine Protein (Negative) Urine Glucose (UA) (Negative) Urine Ketones (Negative) 12/30/20 12/30/20 12/30/20 Range/Units 03:54 05:32 06:37 Hgb 9.8 L D (13.0-17.5) gm/dL Hct 32.4 L (39.0-53.0) % MCV 73.0 L (80.0-100.0) fL MCH 22.1 L (25.0-35.0) pg MCHC 30.2 L (31.0-37.0) g/dL RDW 16.8 H (11.5-15.5) % Plt Count 511 H (150-450) k/uL Sodium (137-145) mmol/L Chloride (98-107) mmol/L Carbon Dioxide (22-30) mmol/L Glucose (74-99) mg/dL POC Glucose (mg/dL) 112 H 138 H (75-99) mg/dL AST (17-59) U/L Alkaline Phosphatase (38-126) U/L Total Protein (6.3-8.2) g/dL Urine Protein (Negative) Urine Glucose (UA) (Negative) Urine Ketones (Negative) 12/30/20 Range/Units 07:58 Hgb (13.0-17.5) gm/dL Hct (39.0-53.0) % MCV (80.0-100.0) fL MCH (25.0-35.0) pg MCHC (31.0-37.0) g/dL RDW (11.5-15.5) % Plt Count (150-450) k/uL Sodium (137-145) mmol/L Chloride (98-107) mmol/L Carbon Dioxide (22-30) mmol/L Glucose (74-99) mg/dL POC Glucose (mg/dL) 157 H (75-99) mg/dL AST (17-59) U/L Alkaline Phosphatase (38-126) U/L Total Protein (6.3-8.2) g/dL Urine Protein (Negative) Urine Glucose (UA) (Negative) Urine Ketones (Negative) Assessment and Plan Assessment: 1. Diabetic ketoacidosis 2. History of diabetes mellitus type 1 3. Shortness of breath. Chest x-ray negative. D-dimer negative. COVID-19 negative. Patient also recently worked up by cardiology services with stress test which was negative in November 4. History of nonhealing ulcers on lower extremities patient follows with wound care clinic 5. History of hyperlipidemia maintained on statin 6. History of seizure disorder maintained on Dilantin DVT prophylaxis Lovenox. GI prophylaxis Protonix Continue DKA protocol Repeat labs ordered Time with Patient: Greater than 30 (Greater than 60% of the total time spent in counseling and coordination of care)
[2020-12-30] MEDS ORDERED: IPRATROPIUM-ALBUTEROL 3 ML NEB INHALATION PRN (10:55)
[2020-12-30 11:00] LABS: Glucose,Whole Blood 224 mg/dL (75-99)
[2020-12-30] MEDS: IPRATROPIUM-ALBUTEROL 3 ML NEB INHALATION SCH ×3 (11:44→19:33)
[2020-12-30 12:19] LABS: Glucose,Whole Blood 241 mg/dL (75-99)
[2020-12-30 13:47] LABS: Glucose,Whole Blood 192 mg/dL (75-99)
[2020-12-30 16:44] LABS: Glucose,Whole Blood 183 mg/dL (75-99)
[2020-12-30 16:44] LABS: Glucose,Whole Blood 140 mg/dL (75-99)
[2020-12-30 17:43] LABS: Glucose,Whole Blood 146 mg/dL (75-99)
[2020-12-30 19:41] LABS: Glucose,Whole Blood 232 mg/dL (75-99)
[2020-12-30 21:12] LABS: Glucose,Whole Blood 233 mg/dL (75-99)
[2020-12-30 22:55] LABS: Glucose,Whole Blood 293 mg/dL (75-99)
[2020-12-31] MEDS: INSULIN REGULAR 100 UNIT in SODIUM CHLORIDE 0.9% 100 ML IV SCH ×2 (01:18→05:20)
[2020-12-31] MEDS: PHENYTOIN SODIUM EXTENDED 100 MG CAP PO SCH ×3 (01:18→20:02)
[2020-12-31] MEDS: ATORVASTATIN 20 MG TAB PO SCH ×2 (01:18→20:00)
[2020-12-31 01:49] LABS: Glucose,Whole Blood 307 mg/dL (75-99)
[2020-12-31 01:50] LABS: Anisocytosis Slight; Basophils # (A) 0.1 k/uL (0-0.2); Basophils % (A) 1 %; Eosinophils # (A) 0.1 k/uL (0-0.7); Eosinophils % (A) 1 %; HCT 31.3 % (39.0-53.0); HGB 9.2 gm/dL (13.0-17.5); Hypochromasia Marked; Lymphocytes # (A) 1.6 k/uL (1.0-4.8); Lymphocytes % (A) 27 %; MCHC 29.5 g/dL (31.0-37.0); MCV 74.4 fL (80.0-100.0); Mean Platelet Volume 7.6; Microcytosis Moderate; Monocytes # (A) 0.3 k/uL (0-1.0); Monocytes % (A) 5 %; Neutrophils # (A) 3.9 k/uL (1.3-7.7); Neutrophils % (A) 64 %; Platelet Count 432 k/uL (150-450); RBC 4.21 m/uL (4.30-5.90); RDW 17.2 % (11.5-15.5); WBC 6.1 k/uL (3.8-10.6)
[2020-12-31 02:29] LABS: Glucose,Whole Blood 298 mg/dL (75-99)
[2020-12-31 02:30] LABS: ALT 7 U/L (4-49); AST 14 U/L (17-59); African American GFR (CKD) >90 (>60 ml/min/1.73 sqM); Alkaline Phosphatase 97 U/L (38-126); Anion Gap 3 mmol/L; Blood Urea Nitrogen 9 mg/dL (9-20); Calcium 8.8 mg/dL (8.4-10.2); Carbon Dioxide 24 mmol/L (22-30); Chloride 105 mmol/L (98-107); Glucose 312 mg/dL (74-99); Non-African American GFR(CKD) >90 (>60 ml/min/1.73 sqM); Potassium 4.3 mmol/L (3.5-5.1); Sodium 132 mmol/L (137-145); Total Bilirubin <0.1 mg/dL (0.2-1.3)
[2020-12-31] MEDS: D5-0.45% NACL WITH KCL 20MEQ/L 1,000 ML IV SCH (03:10)
[2020-12-31 03:11] LABS: Glucose,Whole Blood 211 mg/dL (75-99)
[2020-12-31 04:21] LABS: Glucose,Whole Blood 192 mg/dL (75-99)
[2020-12-31 05:22] LABS: Glucose,Whole Blood 127 mg/dL (75-99)
[2020-12-31 06:31] LABS: Glucose,Whole Blood 108 mg/dL (75-99)
[2020-12-31] MEDS ORDERED: INSULIN DETEMIR (LEVEMIR) 100 UNIT/ML SYR SQ SCH (08:00)
[2020-12-31] MEDS: IPRATROPIUM-ALBUTEROL 3 ML NEB INHALATION SCH ×4 (08:02→19:18)
[2020-12-31] MEDS: ENOXAPARIN 40 MG/0.4 ML SYRINGE SQ SCH (08:36)
[2020-12-31] MEDS: PANTOPRAZOLE 40 MG TABLET PO SCH (08:36)
[2020-12-31] MEDS ORDERED: MUPIROCIN 2% OINT 22 GM TUBE TOPICAL SCH ×2 (09:00→21:00)
[2020-12-31] MEDS ORDERED: COLLAGENASE 250 UNIT/GM OINTMENT 30 GM TUBE TOPICAL SCH ×2 (09:00→21:00)
[2020-12-31] MEDS: SODIUM CHLORIDE 0.9% 1,000 ML IV SCH ×2 (14:39→14:40)
[2020-12-31 15:38] VITALS: BMI 19.4
[2020-12-31 16:37] LABS: Glucose,Whole Blood 580 mg/dL (75-99)
[2020-12-31 16:37] LABS: Glucose,Whole Blood 561 mg/dL (75-99)
[2020-12-31] MEDS: INSULIN DETEMIR (LEVEMIR) 100 UNIT/ML SYR SQ SCH (17:52)
[2020-12-31] MEDS: INSULIN ASPART (NovoLOG) 100 UNIT/ML VIAL SQ SCH ×2 (17:52→20:00)
--- NOTE | 2020-12-31 18:04 | P.PN ---
Subjective Progress Note Date: 12/31/20 Pietro Ryder, is a 60 year old male who presented to [facility] ER with a chief complaint of shortness breath with racing heart rate and nausea and vomiting. Patient reports this has been occurring over the past 3 days. Patient denies any fever or recent illness at home patient does have past medical history of diabetes mellitus type 1, GERD, hyperlipidemia, osseous rate is, seizure disorder and depression. Chest x-ray was completed showing no acute cardiopulmonary process. D-dimer normal. COVID-19 negative. EKG showing sinus tachycardia. UA positive for ketones and glucose. Initial anion gap 28 and CO2 level 8. Initial treatment for DKA started in ER. Patient currently on insulin drip. At this time patient will be admitted continued DKA protocol. Repeat labs ordered. Patient still complaining of 6 some shortness of breath nausea and vomiting. Patient denies chest pain. Patient denies any urinary burning or frequency. Current vitals temp 98.8 heart rate 91 blood pressure 110/62 and oxygen saturation 100% on room air.. On 12/31/2020 Patient was seen and examined on the medical floor, he is alert and oriented x 3 in no distress, he denies any complaints there is no fever or chills no headache or dizziness no chest pain no shortness of breath no palpit ation no cough no nausea or vomiting no abdominal pain no diarrhea no blood in the stools no burning with urination no frequency or urgency and no hematuria, there is no weakness or numbness in any of the extremities no change in vision speech or gait. Objective - Vital Signs Vital signs: Vital Signs Temp 98.6 F 12/31/20 14:30 Pulse 91 12/31/20 14:30 Resp 16 12/31/20 14:00 BP 125/71 12/31/20 14:30 Pulse Ox 100 12/31/20 14:30 Intake & Output 12/30/20 12/31/20 12/31/20 18:59 06:59 18:59 Intake Total 15.549 34.047 Output Total 300 Balance 15.549 34.047 -300 Weight 46.72 kg Intake: Intake, IV Titration 15.549 34.047 Amount Insulin Regular 100 unit 15.549 34.047 In Sodium Chloride 0.9% 100 ml @ 0.1 UNITS/KG/HR 4.719 mls/hr IV [id number] Rx#:[id number] Output: Urine 300 - Exam In general patient is alert and oriented x 3 in no distress HEENT head normocephalic and atraumatic Neck is supple no JVD no goiter no lymphadenopathy no carotid bruit Chest examination is clear to auscultation no crackles no wheezing Cardiac exam reveals regular heart sounds S1 and S2 no gallops no murmurs Abdomen is soft nontender no organomegaly with normal bowel sounds Extremity exam reveals no edema no cyanosis or clubbing Neurological examination reveals no gross focal deficits - Labs CBC & Chem 7: 12/31/20 01:39 12/31/20 01:39 Labs: Abnormal Lab Results - Last 24 Hours (Table) 12/30/20 12/30/20 12/30/20 Range/Units 17:42 19:34 21:06 RBC (4.30-5.90) m/uL Hgb (13.0-17.5) gm/dL Hct (39.0-53.0) % MCV (80.0-100.0) fL MCH (25.0-35.0) pg MCHC (31.0-37.0) g/dL RDW (11.5-15.5) % Sodium (137-145) mmol/L Glucose (74-99) mg/dL POC Glucose (mg/dL) 146 H 232 H 233 H (75-99) mg/dL Total Bilirubin (0.2-1.3) mg/dL AST (17-59) U/L Total Protein (6.3-8.2) g/dL Albumin (3.5-5.0) g/dL 12/30/20 12/31/20 12/31/20 Range/Units 22:53 01:13 01:39 RBC 4.21 L (4.30-5.90) m/uL Hgb 9.2 L (13.0-17.5) gm/dL Hct 31.3 L (39.0-53.0) % MCV 74.4 L (80.0-100.0) fL MCH 22.0 L (25.0-35.0) pg MCHC 29.5 L (31.0-37.0) g/dL RDW 17.2 H (11.5-15.5) % Sodium (137-145) mmol/L Glucose (74-99) mg/dL POC Glucose (mg/dL) 293 H 307 H (75-99) mg/dL Total Bilirubin (0.2-1.3) mg/dL AST (17-59) U/L Total Protein (6.3-8.2) g/dL Albumin (3.5-5.0) g/dL 12/31/20 12/31/20 12/31/20 Range/Units 01:39 02:19 03:07 RBC (4.30-5.90) m/uL Hgb (13.0-17.5) gm/dL Hct (39.0-53.0) % MCV (80.0-100.0) fL MCH (25.0-35.0) pg MCHC (31.0-37.0) g/dL RDW (11.5-15.5) % Sodium 132 L (137-145) mmol/L Glucose 312 H (74-99) mg/dL POC Glucose (mg/dL) 298 H 211 H (75-99) mg/dL Total Bilirubin <0.1 L (0.2-1.3) mg/dL AST 14 L (17-59) U/L Total Protein 6.0 L (6.3-8.2) g/dL Albumin 3.0 L (3.5-5.0) g/dL 12/31/20 12/31/20 12/31/20 Range/Units 04:16 05:18 06:26 RBC (4.30-5.90) m/uL Hgb (13.0-17.5) gm/dL Hct (39.0-53.0) % MCV (80.0-100.0) fL MCH (25.0-35.0) pg MCHC (31.0-37.0) g/dL RDW (11.5-15.5) % Sodium (137-145) mmol/L Glucose (74-99) mg/dL POC Glucose (mg/dL) 192 H 127 H 108 H (75-99) mg/dL Total Bilirubin (0.2-1.3) mg/dL AST (17-59) U/L Total Protein (6.3-8.2) g/dL Albumin (3.5-5.0) g/dL 12/31/20 12/31/20 Range/Units 16:35 16:36 RBC (4.30-5.90) m/uL Hgb (13.0-17.5) gm/dL Hct (39.0-53.0) % MCV (80.0-100.0) fL MCH (25.0-35.0) pg MCHC (31.0-37.0) g/dL RDW (11.5-15.5) % Sodium (137-145) mmol/L Glucose (74-99) mg/dL POC Glucose (mg/dL) 580 H 561 H (75-99) mg/dL Total Bilirubin (0.2-1.3) mg/dL AST (17-59) U/L Total Protein (6.3-8.2) g/dL Albumin (3.5-5.0) g/dL Assessment and Plan Assessment: 1. Diabetic ketoacidosis, D/C insulin drip, resume home insulin and sliding scale, will follow in am 2. History of diabetes mellitus type 1 3. Shortness of breath. Chest x-ray negative. D-dimer negative. COVID-19 negative. Patient also recently worked up by cardiology services with stress test which was negative in November 4. History of nonhealing ulcers on lower extremities patient follows with wound care clinic 5. History of hyperlipidemia maintained on statin 6. History of seizure disorder maintained on Dilantin DVT prophylaxis Lovenox. GI prophylaxis Protonix Continue DKA protocol Repeat labs ordered
[2020-12-31 19:01] LABS: Glucose,Whole Blood 418 mg/dL (75-99)
[2020-12-31 19:47] LABS: Glucose,Whole Blood 352 mg/dL (75-99)
[2020-12-31 23:59] LABS: Glucose,Whole Blood 53 mg/dL (75-99)
[2021-01-01 00:14] LABS: Glucose,Whole Blood 77 mg/dL (75-99)
[2021-01-01 02:02] LABS: Glucose,Whole Blood 66 mg/dL (75-99)
[2021-01-01 02:18] LABS: Glucose,Whole Blood 63 mg/dL (75-99)
[2021-01-01 02:40] LABS: Glucose,Whole Blood 67 mg/dL (75-99)
[2021-01-01] MEDS ORDERED: DEXTROSE 50% SYRINGE 50 ML IVP ONE (02:43)
[2021-01-01 03:02] LABS: Glucose,Whole Blood 107 mg/dL (75-99)
[2021-01-01] MEDS: INSULIN ASPART (NovoLOG) 100 UNIT/ML VIAL SQ SCH ×3 (03:19→11:53)
[2021-01-01 05:51] LABS: Glucose,Whole Blood 95 mg/dL (75-99)
[2021-01-01] MEDS: PANTOPRAZOLE 40 MG TABLET PO SCH ×2 (06:15→06:21)
[2021-01-01] MEDS: IPRATROPIUM-ALBUTEROL 3 ML NEB INHALATION SCH ×3 (07:24→15:25)
[2021-01-01] MEDS: ENOXAPARIN 40 MG/0.4 ML SYRINGE SQ SCH (09:56)
[2021-01-01] MEDS: PHENYTOIN SODIUM EXTENDED 100 MG CAP PO SCH (09:56)
[2021-01-01 10:01] VITALS: PULSE 96; RESP 16
[2021-01-01 11:32] LABS: Glucose,Whole Blood 162 mg/dL (75-99)
[2021-01-01] MEDS: INSULIN DETEMIR (LEVEMIR) 100 UNIT/ML SYR SQ SCH (11:34)
[2021-01-01 11:39] VITALS: BP 111/60; TEMP 98.6
== END 2021-01-01 14:48 | disposition home or self-care (01) | DRG 638 ==
LOC: EC 17:27 → 3SCARD 21:42
PROVIDERS: ADMIT Internal Medicine; ATTEND Internal Medicine
DX: E10.10 Type 1 diabetes mellitus with ketoacidosis without coma (principal); L97.928 Non-pressure chronic ulcer of unspecified part of left lower leg with other specified severity; R00.0 Tachycardia, unspecified; E78.5 Hyperlipidemia, unspecified; E86.0 Dehydration; F32.9 Major depressive disorder, single episode, unspecified; G40.909 Epilepsy, unspecified, not intractable, without status epilepticus; Z20.822 Contact with and (suspected) exposure to COVID-19; H53.002 Unspecified amblyopia, left eye; K21.9 Gastro-esophageal reflux disease without esophagitis; M17.12 Unilateral primary osteoarthritis, left knee; S20.409A Unspecified superficial injuries of unspecified back wall of thorax, initial encounter; Z79.4 Long term (current) use of insulin; Z79.899 Other long term (current) drug therapy; Z85.9 Personal history of malignant neoplasm, unspecified; Z86.14 Personal history of Methicillin resistant Staphylococcus aureus infection; X58.XXXA Exposure to other specified factors, initial encounter
CPT/HCPCS: 36415; 71046; 80051; 80053; 81003; 82009; 82565; 82947; 83036; 83605; 83735; 84100; 84484; 84520; 85025; 85379; 85610; 85730; 87635; 93005; 94640; 96361; 96374; 99291

== ENCOUNTER 2021-02-09 16:50 | Inpatient (IN) | payer OTHER ==
[2021-02-09] MEDS ORDERED: ACETAMINOPHEN TAB 325 MG TAB PO STA (20:50)
[2021-02-09] MEDS ORDERED: SODIUM CHLORIDE 0.9% 1,000 ML IV STA (20:50)
--- NOTE | 2021-02-09 20:58 | ED ---
General Adult HPI - General Source: patient, RN notes reviewed, old records reviewed Mode of arrival: ambulatory Limitations: no limitations - History of Present Illness -: days(s) (2) Severity scale (1-10): 0 Associated Symptoms: loss of appetite, nausea/vomiting <Killian Childs - Last Filed: 02/09/21 22:44> <Kori Kidd - Last Filed: 03/05/21 01:41> - General Chief complaint: Nausea/Vomiting/Diarrhea Stated complaint: Nausea/Vomiting Time Seen by Provider: 02/09/21 20:40 - History of Present Illness Initial comments: This is a 60-year-old gentleman, alert and oriented 4, presents to the emergency room with 2 days of decreased appetite and nausea with one episode of vomiting and diarrhea. He denies any hematochezia or hematemesis. Patient denies any fevers, difficulty in breathing chest pain or cough. He is being treated for a diabetic foot ulcer on his right foot. He has been seeing wound care clinic and was there 2 weeks ago. He states that he is on medications for it. He does have a history of insulin-dependent diabetes, GERD, osteoarthritis, and seizures. He was last hospitalized for DKA in December 2020. He denies smoking or any alcohol or drug use. (Killian Childs) - Related Data Home Medications Medication Instructions Recorded Confirmed Omeprazole 20 mg PO DAILY 06/13/17 02/09/21 Pioglitazone HCl [Actos] 15 mg PO DAILY 10/03/18 02/09/21 Diphenox-Atrop 2.5-0.025 mg 1 tab PO BID PRN 11/17/19 02/09/21 [Lomotil] Triamcinolone 0.5% Cream [Kenalog 1 applic TOPICAL DAILY 01/19/20 02/09/21 0.5% Cream] Insulin Glargine [Lantus Vial] 50 unit SQ DAILY 05/15/20 02/09/21 Pregabalin [Lyrica] 50 mg PO TID 05/15/20 02/09/21 Rosuvastatin [Crestor] 10 mg PO HS 05/15/20 02/09/21 Mupirocin 2% Oint [Bactroban 2% 1 applic TOPICAL DAILY 12/29/20 02/09/21 Oint] Phenytoin Sodium Extended 30 mg PO BID 02/09/21 02/09/21 [Dilantin] Previous Rx's Medication Instructions Recorded traMADol HCL 50 mg PO Q6H PRN 3 Days #12 tab 02/22/21 Allergies Allergy/AdvReac Type Severity Reaction Status Date / Time No Known Allergies Allergy Verified 02/14/21 13:41 Review of Systems ROS Other: All systems not noted in ROS Statement are negative. <Killian Childs - Last Filed: 02/09/21 22:44> ROS Other: All systems not noted in ROS Statement are negative. <Kori Kidd - Last Filed: 03/05/21 01:41> ROS Statement: Those systems with pertinent positive or pertinent negative responses have been documented in the HPI. Past Medical History Past Medical History: Cancer, Diabetes Mellitus, GERD/Reflux, Hyperlipidemia, Osteoarthritis (OA), Seizure Disorder Additional Past Medical History / Comment(s): IDDM type 1, wounds to upper back from scratching and L leg-seen at [facility], past L lower extremity cellulitis with sepsis, L wrist cancerous tumor removed, past seizure over 6 months ago, arthritis L knee, vertigo, occasional diarrhea, pt cannot recall why he takes lyrica. 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 Past Anesthesia/Blood Transfusion Reactions: No Reported Reaction Past Psychological History: Depression Smoking Status: Never smoker Past Alcohol Use History: None Reported Past Drug Use History: None Reported - Past Family History Father Family Medical History: Myocardial Infarction (NH) Additional Family Medical History / Comment(s): Father of a NH at the age of 57yrs. Mother Family Medical History: Cancer Additional Family Medical History / Comment(s): Mother from cancer at the age of 61 or 62 . Pt cannot recall type of cancer. Sister(s) Family Medical History: Diabetes Mellitus Additional Family Medical History / Comment(s): Sister had DM type 1. She is . <Killian Childs - Last Filed: 02/09/21 22:44> General Exam Limitations: no limitations General appearance: alert, in no apparent distress Head exam: Present: atraumatic, normocephalic, normal inspection ENT exam: Present: mucous membranes dry Neck exam: Present: normal inspection, full ROM. Absent: tenderness, meningismus, lymphadenopathy, thyromegaly Respiratory exam: Present: normal lung sounds bilaterally. Absent: respiratory distress, wheezes, rales, rhonchi, stridor, chest wall tenderness, accessory muscle use Cardiovascular Exam: Present: tachycardia, normal heart sounds GI/Abdominal exam: Present: soft, normal bowel sounds. Absent: distended, tenderness, guarding, rebound, rigid, mass Right Foot/Toe exam: Present: full ROM, swelling, erythema (Foot ulcer to the plantar surface erythema noted to the dorsal surface). Absent: abrasion, laceration Neurovascular tendon exam: Present: no vascular compromise. Absent: abnormal cap refill, extremity cold to touch Back exam: Present: full ROM, other (Dried scaling lesion to the right upper back patient states he has been picking at it no drainage noted). Absent: tenderness, CVA tenderness (R), CVA tenderness (L), muscle spasm, paraspinal tenderness, vertebral tenderness Neurological exam: Present: alert, oriented X3 Psychiatric exam: Present: normal affect, normal mood Skin exam: Present: warm, dry, intact, normal color. Absent: rash, cyanosis, diaphoretic, petechiae, pallor <Killian Childs - Last Filed: 02/09/21 22:44> Course Vital Signs 02/09/21 02/09/21 02/09/21 18:45 21:34 23:38 Temperature 100.5 F H 100.0 F H Pulse Rate 142 H 115 H 105 H Pulse Rate [ Pulse Oximetery ] Respiratory 16 20 20 Rate Blood Pressure 128/71 138/74 132/76 Blood Pressure [Right Arm] O2 Sat by Pulse 98 100 100 Oximetry 02/10/21 02/10/21 02/10/21 00:00 02:00 04:00 Temperature 97.9 F Pulse Rate 106 H 99 95 Pulse Rate [ Pulse Oximetery ] Respiratory 18 18 18 Rate Blood Pressure 112/63 121/69 Blood Pressure [Right Arm] O2 Sat by Pulse 100 99 100 Oximetry 02/10/21 02/10/21 02/10/21 06:00 06:57 07:56 Temperature 98.9 F Pulse Rate 101 H 103 H Pulse Rate [ 105 H Pulse Oximetery ] Respiratory 18 18 16 Rate Blood Pressure 141/102 141/80 Blood Pressure 142/76 [Right Arm] O2 Sat by Pulse 100 100 98 Oximetry 02/10/21 02/10/21 02/10/21 11:58 15:55 18:56 Temperature 98.2 F 99.1 F 99.4 F Pulse Rate Pulse Rate [ 111 H 109 H 114 H Pulse Oximetery ] Respiratory 15 18 16 Rate Blood Pressure Blood Pressure 131/74 123/71 127/77 [Right Arm] O2 Sat by Pulse 97 97 94 L Oximetry EKG Findings - EKG Results: EKG shows: tachycardia (Ventricular rate 131, OH interval 0.126, QRS 0.72, QTC 0.437) <Killian Childs - Last Filed: 02/09/21 22:44> Medical Decision Making - Lab Data Result diagrams: 02/09/21 21:14 02/09/21 21:14 <Killian Childs - Last Filed: 02/09/21 22:44> - Lab Data Result diagrams: 02/21/21 05:31 02/21/21 05:31 <Kori Kidd - Last Filed: 03/05/21 01:41> - Medical Decision Making 60-year-old white male patient presents to the emergency room with nausea and decreased appetite for the past 2 days. Patient is being treated for a diabetic wound foot ulcer to his right foot and has been seen by the wound care clinic. He states they're using Santyl dressings every 3 weeks and the last dressing was done 2 weeks ago. There is evidence of cellulitis to the plantar and dorsal surface of the right foot. White blood cell count is 28 with a left shift. Sodium is 127 glucose is 394. There is no acidosis, serum acetone is positive. Chest x-ray shows no acute cardiopulmonary disease. Patient was given a liter of normal saline and placed on IV antibiotics and will be admitted to the hospital. Discussed with Dr. Kidd. (Killian Childs) I was available for consultation in the emergency department. The history and physical exam were done by the midlevel provider. I was consulted for this patients care. I reviewed the case with the midlevel provider and based on their presentation of the patient, I agree with the assessment, medical decision making and plan of care as documented. Chart was dictated using [employer] dictation software. Attempts were made to correct any dictation errors however some typographical errors may persist. Patient was seen during a national state of emergency due to the Covid-19 pandemic. (Kori Kidd) - Lab Data Lab Results 02/09/21 02/09/21 02/09/21 Range/Units 18:50 21:14 21:14 WBC 28.8 H (3.8-10.6) k/uL RBC 4.19 L (4.30-5.90) m/uL Hgb 8.8 L (13.0-17.5) gm/dL Hct 28.6 L (39.0-53.0) % MCV 68.2 L D (80.0-100.0) fL MCH 21.1 L (25.0-35.0) pg MCHC 31.0 (31.0-37.0) g/dL RDW 15.3 (11.5-15.5) % Plt Count 616 H (150-450) k/uL MPV 6.8 Neutrophils % 92 % Lymphocytes % 4 % Monocytes % 4 % Eosinophils % 0 % Basophils % 0 % Neutrophils # 26.4 H (1.3-7.7) k/uL Lymphocytes # 1.1 (1.0-4.8) k/uL Monocytes # 1.0 (0-1.0) k/uL Eosinophils # 0.1 (0-0.7) k/uL Basophils # 0.0 (0-0.2) k/uL Hypochromasia Slight Microcytosis Marked Sodium 127 L (137-145) mmol/L Potassium 4.6 (3.5-5.1) mmol/L Chloride 90 L (98-107) mmol/L Carbon Dioxide 22 (22-30) mmol/L Anion Gap 15 mmol/L BUN 13 (9-20) mg/dL Creatinine 0.69 (0.66-1.25) mg/dL Est GFR (CKD-EPI)AfAm >90 (>60 ml/min/1.73 sqM) Est GFR (CKD-EPI)NonAf >90 (>60 ml/min/1.73 sqM) Glucose 394 H (74-99) mg/dL Plasma Lactic Acid Michael (0.7-2.0) mmol/L Calcium 8.9 (8.4-10.2) mg/dL Total Bilirubin 0.3 (0.2-1.3) mg/dL AST 15 L (17-59) U/L ALT 8 (4-49) U/L Alkaline Phosphatase 135 H (38-126) U/L Total Protein 7.1 (6.3-8.2) g/dL Albumin 3.5 (3.5-5.0) g/dL Acetone, Qual Positive (Negative) Coronavirus (PCR) Not Detected (Not Detectd) 02/09/21 Range/Units 21:14 WBC (3.8-10.6) k/uL RBC (4.30-5.90) m/uL Hgb (13.0-17.5) gm/dL Hct (39.0-53.0) % MCV (80.0-100.0) fL MCH (25.0-35.0) pg MCHC (31.0-37.0) g/dL RDW (11.5-15.5) % Plt Count (150-450) k/uL MPV Neutrophils % % Lymphocytes % % Monocytes % % Eosinophils % % Basophils % % Neutrophils # (1.3-7.7) k/uL Lymphocytes # (1.0-4.8) k/uL Monocytes # (0-1.0) k/uL Eosinophils # (0-0.7) k/uL Basophils # (0-0.2) k/uL Hypochromasia Microcytosis Sodium (137-145) mmol/L Potassium (3.5-5.1) mmol/L Chloride (98-107) mmol/L Carbon Dioxide (22-30) mmol/L Anion Gap mmol/L BUN (9-20) mg/dL Creatinine (0.66-1.25) mg/dL Est GFR (CKD-EPI)AfAm (>60 ml/min/1.73 sqM) Est GFR (CKD-EPI)NonAf (>60 ml/min/1.73 sqM) Glucose (74-99) mg/dL Plasma Lactic Acid Michael 1.3 (0.7-2.0) mmol/L Calcium (8.4-10.2) mg/dL Total Bilirubin (0.2-1.3) mg/dL AST (17-59) U/L ALT (4-49) U/L Alkaline Phosphatase (38-126) U/L Total Protein (6.3-8.2) g/dL Albumin (3.5-5.0) g/dL Acetone, Qual (Negative) Coronavirus (PCR) (Not Detectd) Disposition Decision Date: 02/09/21 Decision Time: 22:43 <Killian Childs - Last Filed: 02/09/21 22:44> <Kori Kidd - Last Filed: 03/05/21 01:41> Clinical Impression: Cellulitis, Diabetic foot ulcer, Hyperglycemia Disposition: ADMITTED IP TO THIS [facility] Condition: Stable
[2021-02-09] MEDS ORDERED: cefTRIAXone IN SWFI 1,000 MG/10 ML SYRINGE IVP STA (21:52)
[2021-02-09 21:57] LABS: Basophils % (A) 0 %; Eosinophils # (A) 0.1 k/uL (0-0.7); Eosinophils % (A) 0 %; HCT 28.6 % (39.0-53.0); HGB 8.8 gm/dL (13.0-17.5); Hypochromasia Slight; Lymphocytes # (A) 1.1 k/uL (1.0-4.8); Lymphocytes % (A) 4 %; MCH 21.1 pg (25.0-35.0); Mean Platelet Volume 6.8; Microcytosis Marked; Monocytes % (A) 4 %; Neutrophils # (A) 26.4 k/uL (1.3-7.7); Neutrophils % (A) 92 %; Platelet Count 616 k/uL (150-450); RBC 4.19 m/uL (4.30-5.90); RDW 15.3 % (11.5-15.5); WBC 28.8 k/uL (3.8-10.6)
[2021-02-09 22:06] LABS: MCV 68.2 fL (80.0-100.0)
[2021-02-09 22:14] LABS: ALT 8 U/L (4-49); AST 15 U/L (17-59); African American GFR (CKD) >90 (>60 ml/min/1.73 sqM); Albumin 3.5 g/dL (3.5-5.0); Alkaline Phosphatase 135 U/L (38-126); Anion Gap 15 mmol/L; Blood Urea Nitrogen 13 mg/dL (9-20); Calcium 8.9 mg/dL (8.4-10.2); Carbon Dioxide 22 mmol/L (22-30); Chloride 90 mmol/L (98-107); Glucose 394 mg/dL (74-99); Non-African American GFR(CKD) >90 (>60 ml/min/1.73 sqM); Potassium 4.6 mmol/L (3.5-5.1); Sodium 127 mmol/L (137-145); Total Bilirubin 0.3 mg/dL (0.2-1.3); Total Protein 7.1 g/dL (6.3-8.2)
[2021-02-09] MEDS ORDERED: VANCOMYCIN IV PER PHARMACY 1 EACH MISC MISCELLANE PRN (22:24)
[2021-02-09] MEDS ORDERED: VANCOMYCIN 750 MG in SODIUM CHLORIDE 0.9% 250 ML IVPB ONE (22:30)
--- NOTE | 2021-02-09 22:31 | XR ---
INDICATION: Patient age:Male; 60 years old; Reason for study: fever; PHH. COMPARISON: Multiple radiographs, with the most recent on 12/29/2020. TECHNIQUE: Frontal and lateral views of the chest. FINDINGS: Lungs/Pleura: There is no evidence of pleural effusion, focal consolidation, or pneumothorax. Pulmonary vascularity: Unremarkable. Heart/mediastinum: Cardiomediastinal silhouette is unremarkable. Musculoskeletal: No acute osseous pathology. IMPRESSION: No acute cardiopulmonary disease/process.
[2021-02-09] MEDS ORDERED: NALOXONE 0.4 MG/ML 1 ML VIAL IV PRN (22:38)
[2021-02-09] MEDS: SODIUM CHLORIDE 0.9% 1,000 ML IV SCH (23:39)
[2021-02-10] MEDS: NON FORMULARY DRUG (Phenytoin Sodium Extended [Dilantin] 30 MG Capsule) PO SCH ×3 (02:14→20:30)
[2021-02-10] MEDS: ATORVASTATIN 20 MG TAB PO SCH ×2 (02:14→20:59)
[2021-02-10 02:33] LABS: Glucose,Whole Blood 292 mg/dL (75-99)
[2021-02-10 08:02] LABS: Glucose,Whole Blood 221 mg/dL (75-99)
[2021-02-10 09:09] LABS: Chloride 98 mmol/L (98-107)
[2021-02-10 09:10] LABS: African American GFR (CKD) >90 (>60 ml/min/1.73 sqM); Anion Gap 10 mmol/L; Blood Urea Nitrogen 10 mg/dL (9-20); Calcium 8.6 mg/dL (8.4-10.2); Carbon Dioxide 25 mmol/L (22-30); Glucose 286 mg/dL (74-99); Non-African American GFR(CKD) >90 (>60 ml/min/1.73 sqM); Potassium 4.3 mmol/L (3.5-5.1); Sodium 133 mmol/L (137-145)
[2021-02-10] MEDS: PREGABALIN 50 MG CAP PO SCH ×3 (09:15→20:59)
[2021-02-10] MEDS: traMADol 50 MG TAB PO PRN (09:15)
[2021-02-10] MEDS: PANTOPRAZOLE 40 MG TABLET PO SCH (09:16)
[2021-02-10] MEDS: INSULIN DETEMIR (LEVEMIR) 100 UNIT/ML SYR SQ SCH (09:39)
[2021-02-10] MEDS: PIOGLITAZONE 15 MG TAB PO SCH (09:42)
[2021-02-10] MEDS ORDERED: VANCOMYCIN 750 MG in SODIUM CHLORIDE 0.9% 250 ML IVPB SCH (10:00)
[2021-02-10 10:28] LABS: Basophils % (A) 0 %; Eosinophils % (A) 0 %; HCT 28.9 % (39.0-53.0); HGB 8.7 gm/dL (13.0-17.5); Hypochromasia Marked; Lymphocytes # (A) 0.9 k/uL (1.0-4.8); Lymphocytes % (A) 4 %; MCH 21.3 pg (25.0-35.0); MCHC 30.2 g/dL (31.0-37.0); MCV 70.7 fL (80.0-100.0); Mean Platelet Volume 7.6; Microcytosis Moderate; Monocytes # (A) 0.9 k/uL (0-1.0); Monocytes % (A) 4 %; Neutrophils # (A) 18.3 k/uL (1.3-7.7); Neutrophils % (A) 90 %; Platelet Count 629 k/uL (150-450); RBC 4.09 m/uL (4.30-5.90); RDW 15.4 % (11.5-15.5); WBC 20.3 k/uL (3.8-10.6)
[2021-02-10] MEDS ORDERED: ONDANSETRON 4 MG/2 ML VIAL IVP PRN (12:13)
--- NOTE | 2021-02-10 12:13 | P.HPIM ---
History of Present Illness 6-year-old male came in with complaints of for redness and cellulitis of the left lower extremity patient has a callus and skin breakdown on the plantar aspect for the first metatarsal area. Patient does have leukocytosis without an y fever denied any history of MRSA. Patient is also found to have some anion gap are do not have any lactic acid levels available at this time patient has some acetone in the urine can be starvation ketosis and patient was believed to have DKA patient received IV fluids patient's serum sodium was low at 129 improved with IV fluids and correction of blood glucose. Patient is still receiving IV fluids at this time. Patient appears to diabetic neuropathy and is on Lyrica. he does follow up with podiatric REVIEW OF SYSTEMS: CONSTITUTIONAL: No fever, no malaise, no fatigue. HEENT: No recent visual problems or hearing problems. Denied any sore throat. CARDIOVASCULAR: No chest pain, orthopnea, PND, no palpitations, no syncope. PULMONARY: No shortness of breath, no cough, no hemoptysis. GASTROINTESTINAL: No diarrhea, no nausea, no vomiting, no abdominal pain. NEUROLOGICAL: No headaches, no weakness, no numbness. HEMATOLOGICAL: Denies any bleeding or petechiae. GENITOURINARY: Denies any burning micturition, frequency, or urgency. MUSCULOSKELETAL/RHEUMATOLOGICAL: Denies any joint pain, swelling, or any muscle pain. ENDOCRINE: Denies any polyuria or polydipsia. The rest of the 14-point review of systems is negative. PHYSICAL EXAMINATION: GENERAL: The patient is alert and oriented x3, not in any acute distress. Well developed, well nourished. HEENT: Pupils are round and equally reacting to light. EOMI. No scleral icterus. No conjunctival pallor. Normocephalic, atraumatic. No pharyngeal erythema. No thyromegaly. CARDIOVASCULAR: S1 and S2 present. No murmurs, rubs, or gallops. PULMONARY: Chest is clear to auscultation, no wheezing or crackles. ABDOMEN: Soft, nontender, nondistended, normoactive bowel sounds. No palpable organomegaly. MUSCULOSKELETAL: No joint swelling or deformity. EXTREMITIES: No cyanosis, clubbing, or pedal edema. NEUROLOGICAL: Gross neurological examination did not reveal any focal deficits. SKIN: Cellulitis of the left foot on the medial aspect both the plantar and dorsal aspect of the foot tendinitis in for infection being a callus and skin breakdown in the first metatarsal area the plantar aspect. Assessment and plan -Cellulitis of the left lower exudative patient will be switched to cefazolin from vancomycin, infectious disease will be consulted will monitor for any clinical improvement -Anion gap ACIDOSIS mostly lactic acidosis with some competent of starvation ketosis I do not believe patient is in diabetic ketoacidosis patient was resumed on his home regimen patient states his blood sugars are well controlled at home will obtain hemoglobin A1c will also order sliding scale with each meal. -Leukocytosis secondary to cellulitis -Hyponatremia both hypervolemic hyponatremia and a hyperosmolar hyponatremia secondary to hyperglycemia -Diabetic peripheral neuropathy -Gastroesophageal reflux disease -Hyperlipidemia -Seizure disorder DVT prophylaxis: Lovenox Past Medical History Past Medical History: Cancer, Diabetes Mellitus, GERD/Reflux, Hyperlipidemia, Osteoarthritis (OA), Seizure Disorder Additional Past Medical History / Comment(s): IDDM type 1, wounds to upper back from scratching and L leg-seen at [facility], past L lower extremity cellulitis with sepsis, L wrist cancerous tumor removed, past seizure over 6 months ago, arthritis L knee, vertigo, occasional diarrhea, pt cannot recall why he takes lyrica. 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 Past Anesthesia/Blood Transfusion Reactions: No Reported Reaction Past Psychological History: Depression Additional Psychological History / Comment(s): Pt resides with friends. He has a glucometer. He does not drive, he usually uses bus system. He is otherwise, independent. Smoking Status: Never smoker Past Alcohol Use History: None Reported Past Drug Use History: None Reported - Past Family History Father Family Medical History: Myocardial Infarction ([place]) Additional Family Medical History / Comment(s): Father of a [place] at the age of 57yrs. Mother Family Medical History: Cancer Additional Family Medical History / Comment(s): Mother from cancer at the age of 61 or 62 . Pt cannot recall type of cancer. Sister(s) Family Medical History: Diabetes Mellitus Additional Family Medical History / Comment(s): Sister had DM type 1. She is . Medications and Allergies Home Medications Medication Instructions Recorded Confirmed Type Omeprazole 20 mg PO DAILY 06/13/17 02/09/21 History Pioglitazone HCl [Actos] 15 mg PO DAILY 10/03/18 02/09/21 History Diphenox-Atrop 2.5-0.025 mg 1 tab PO BID PRN 11/17/19 02/09/21 History [Lomotil] Triamcinolone 0.5% Cream [Kenalog 1 applic TOPICAL DAILY 01/19/20 02/09/21 History 0.5% Cream] Insulin Glargine [Lantus Vial] 50 unit SQ DAILY 05/15/20 02/09/21 History Pregabalin [Lyrica] 50 mg PO TID 05/15/20 02/09/21 History Rosuvastatin [Crestor] 10 mg PO HS 05/15/20 02/09/21 History Mupirocin 2% Oint [Bactroban 2% 1 applic TOPICAL DAILY 12/29/20 02/09/21 History Oint] Phenytoin Sodium Extended 30 mg PO BID 02/09/21 02/09/21 History [Dilantin] traMADol HCL 50 mg PO Q6H PRN 02/09/21 02/09/21 History Allergies Allergy/AdvReac Type Severity Reaction Status Date / Time No Known Allergies Allergy Verified 02/09/21 22:27 Physical Exam Vitals: Vital Signs Temp Pulse Pulse Resp BP BP Pulse Ox 02/10/21 11:58 98.2 F 111 H 15 131/74 97 02/10/21 07:56 105 H 16 142/76 98 02/10/21 06:57 98.9 F 103 H 18 141/80 100 02/10/21 06:00 101 H 18 141/102 100 02/10/21 04:00 95 18 121/69 100 02/10/21 02:00 97.9 F 99 18 112/63 99 02/10/21 00:00 106 H 18 100 02/09/21 23:38 100.0 F H 105 H 20 132/76 100 02/09/21 21:34 115 H 20 138/74 100 02/09/21 18:45 100.5 F H 142 H 16 128/71 98 Intake and Output 02/09/21 02/10/21 02/10/21 22:59 06:59 14:59 Other: Weight 45.813 kg 45.813 kg Results CBC & Chem 7: 02/10/21 08:43 02/10/21 08:43 Labs: Abnormal Lab Results - Last 24 Hours (Table) 02/09/21 02/09/21 02/10/21 Range/Units 21:14 21:14 02:23 WBC 28.8 H (3.8-10.6) k/uL RBC 4.19 L (4.30-5.90) m/uL Hgb 8.8 L (13.0-17.5) gm/dL Hct 28.6 L (39.0-53.0) % MCV 68.2 L D (80.0-100.0) fL MCH 21.1 L (25.0-35.0) pg MCHC (31.0-37.0) g/dL Plt Count 616 H (150-450) k/uL Neutrophils # 26.4 H (1.3-7.7) k/uL Lymphocytes # (1.0-4.8) k/uL Sodium 127 L (137-145) mmol/L Chloride 90 L (98-107) mmol/L Creatinine (0.66-1.25) mg/dL Glucose 394 H (74-99) mg/dL POC Glucose (mg/dL) 292 H (75-99) mg/dL AST 15 L (17-59) U/L Alkaline Phosphatase 135 H (38-126) U/L 02/10/21 02/10/21 02/10/21 Range/Units 07:53 08:43 08:43 WBC 20.3 H (3.8-10.6) k/uL RBC 4.09 L (4.30-5.90) m/uL Hgb 8.7 L (13.0-17.5) gm/dL Hct 28.9 L (39.0-53.0) % MCV 70.7 L (80.0-100.0) fL MCH 21.3 L (25.0-35.0) pg MCHC 30.2 L (31.0-37.0) g/dL Plt Count 629 H (150-450) k/uL Neutrophils # 18.3 H (1.3-7.7) k/uL Lymphocytes # 0.9 L (1.0-4.8) k/uL Sodium 133 L (137-145) mmol/L Chloride (98-107) mmol/L Creatinine 0.59 L (0.66-1.25) mg/dL Glucose 286 H (74-99) mg/dL POC Glucose (mg/dL) 221 H (75-99) mg/dL AST (17-59) U/L Alkaline Phosphatase (38-126) U/L Thrombosis Risk Factor Assmnt - Choose All That Apply Any of the Below Risk Factors Present?: Yes Each Factor Represents 1 point: Age 41-60 years Other Risk Factors: No Other congenital or acquired thrombophilia - If yes, enter type in comment: No Thrombosis Risk Factor Assessment Total Risk Factor Score: 1 Thrombosis Risk Factor Assessment Level: Low Risk
[2021-02-10 12:17] LABS: Glucose,Whole Blood 193 mg/dL (75-99)
[2021-02-10] MEDS: INSULIN ASPART (NovoLOG) 100 UNIT/ML VIAL SQ SCH ×3 (12:40→20:59)
[2021-02-10] MEDS: SODIUM CHLORIDE 0.9% 1,000 ML IV SCH ×2 (15:58→20:18)
[2021-02-10] MEDS ORDERED: ceFAZolin 3 GM in SODIUM CHLORIDE 0.9% 100 ML IVPB SCH (16:00)
[2021-02-10 17:53] LABS: Glucose,Whole Blood 66 mg/dL (75-99)
[2021-02-10 18:14] LABS: Glucose,Whole Blood 92 mg/dL (75-99)
[2021-02-10 20:30] LABS: Glucose,Whole Blood 181 mg/dL (75-99)
[2021-02-11 02:13] LABS: Amorphous Sediment,Urine Rare /hpf; Appearance,Urine Clear (Clear); Bilirubin,Urine Negative (Negative); Blood,Urine Small (Negative); Color,Urine Yellow; Glucose,Urine (UA) 4+ (Negative); Hyaline Casts,Urine 5 /lpf (0-2); Ketones,Urine Trace (Negative); Leukocyte Esterase,Urine Negative (Negative); Mucus,Urine Few /hpf; Nitrite,Urine Negative (Negative); PH, Urine 5.5 (5.0-8.0); Protein,Urine 1+ (Negative); RBC,Urine 19 /hpf (0-5); Specific Gravity,Urine 1.032 (1.001-1.035); Urobilinogen,Urine <2.0 mg/dL (<2.0); WBC,Urine 4 /hpf (0-5)
[2021-02-11 02:36] LABS: Glucose,Whole Blood 194 mg/dL (75-99)
[2021-02-11 06:59] LABS: Glucose,Whole Blood 252 mg/dL (75-99)
[2021-02-11] MEDS: INSULIN ASPART (NovoLOG) 100 UNIT/ML VIAL SQ SCH ×4 (07:20→21:14)
[2021-02-11] MEDS: PANTOPRAZOLE 40 MG TABLET PO SCH (07:20)
[2021-02-11 08:32] LABS: Basophils % (A) 0 %; Eosinophils % (A) 0 %; HCT 24.9 % (39.0-53.0); HGB 7.6 gm/dL (13.0-17.5); Hypochromasia Marked; Lymphocytes # (A) 1.4 k/uL (1.0-4.8); Lymphocytes % (A) 10 %; MCH 21.3 pg (25.0-35.0); MCHC 30.3 g/dL (31.0-37.0); MCV 70.4 fL (80.0-100.0); Mean Platelet Volume 6.6; Microcytosis Moderate; Monocytes # (A) 0.6 k/uL (0-1.0); Monocytes % (A) 4 %; Neutrophils # (A) 12.6 k/uL (1.3-7.7); Neutrophils % (A) 85 %; Platelet Count 522 k/uL (150-450); RBC 3.55 m/uL (4.30-5.90); RDW 15.4 % (11.5-15.5); WBC 14.9 k/uL (3.8-10.6)
[2021-02-11 08:43] LABS: ALT 7 U/L (4-49); AST 18 U/L (17-59); African American GFR (CKD) >90 (>60 ml/min/1.73 sqM); Albumin 2.7 g/dL (3.5-5.0); Alkaline Phosphatase 104 U/L (38-126); Anion Gap 10 mmol/L; Blood Urea Nitrogen 13 mg/dL (9-20); Calcium 8.2 mg/dL (8.4-10.2); Carbon Dioxide 23 mmol/L (22-30); Chloride 101 mmol/L (98-107); Glucose 258 mg/dL (74-99); Non-African American GFR(CKD) >90 (>60 ml/min/1.73 sqM); Potassium 4.2 mmol/L (3.5-5.1); Sodium 134 mmol/L (137-145); Total Bilirubin 0.1 mg/dL (0.2-1.3); Total Protein 5.8 g/dL (6.3-8.2)
[2021-02-11] MEDS: ENOXAPARIN 40 MG/0.4 ML SYRINGE SQ SCH (10:02)
[2021-02-11] MEDS: MUPIROCIN 2% OINT 22 GM TUBE TOPICAL SCH (10:02)
[2021-02-11] MEDS: PREGABALIN 50 MG CAP PO SCH ×3 (10:02→21:13)
[2021-02-11] MEDS: INSULIN DETEMIR (LEVEMIR) 100 UNIT/ML SYR SQ SCH (10:02)
[2021-02-11] MEDS: PIOGLITAZONE 15 MG TAB PO SCH (10:02)
[2021-02-11 10:04] LABS: Glucose,Whole Blood 281 mg/dL (75-99)
--- NOTE | 2021-02-11 11:40 | P.PN ---
Subjective Progress Note Date: 02/11/21 Pietro Ryder, is a 60 year-old male came in with complaints of for redness and cellulitis of the left lower extremity patient has a callus and skin breakdown on the plantar aspect for the first metatarsal area. Patient does have leukocytosis without any fever denied any history of MRSA. Patient is also found to have some anion gap are do not have any lactic acid levels available at this time patient has some acetone in the urine can be starvation ketosis and patient was believed to have DKA patient received IV fluids patient's serum sodium was low at 129 improved with IV fluids and correction of blood glucose. Patient is still receiving IV fluids at this time. Patient appears to diabetic neuropathy and is on Lyrica. he does follow up with podiatric On 02/11/2021 patient was seen and examined on the medical floor, he is alert and oriented 3 in no apparent distress, he is feeling better, he still has bilateral lower extremity erythema and tenderness there is an open ulcer on the bottom of the right foot otherwise patient denies any complaints there is no fever or chills no headache or dizziness no chest pain no shortness of breath no cough no nausea or vomiting no abdominal pain no diarrhea and no urinary symptoms Objective - Vital Signs Vital signs: Vital Signs Temp 98.9 F 02/11/21 00:52 Pulse 114 H 02/11/21 00:52 Resp 16 02/11/21 00:52 BP 129/70 02/11/21 00:52 Pulse Ox 94 L 02/11/21 00:52 Intake & Output 02/10/21 02/11/21 02/11/21 18:59 06:59 18:59 Intake Total 775 Output Total 300 Balance 475 Intake: Intake, IV Titration 775 Amount Sodium Chloride 0.9% 1, 725 000 ml @ 75 mls/hr IV . [id number] ERIN Rx#:[id number] ceFAZolin 2 gm In Sodium 50 Chloride 0.9% 50 ml @ 100 mls/hr IVPB Q8HR ERIN Rx# :[id number] Output: Urine 300 Other: Voiding Method Urinal Urinal - Exam In general patient is alert and oriented x 3 in no distress HEENT head normocephalic and atraumatic Neck is supple no JVD no goiter no lymphadenopathy no carotid bruit Chest examination is clear to auscultation no crackles no wheezing Cardiac exam reveals regular heart sounds S1 and S2 no gallops no murmurs Abdomen is soft nontender no organomegaly with normal bowel sounds Extremity exam reveals no edema, there is bilateral lower extremity erythema and open ulcer on the bottom of the right foot Neurological examination reveals no gross focal deficits - Labs CBC & Chem 7: 02/11/21 07:51 02/11/21 07:51 Labs: Abnormal Lab Results - Last 24 Hours (Table) 02/09/21 02/10/21 02/10/21 Range/Units 23:35 08:43 12:10 WBC (3.8-10.6) k/uL RBC (4.30-5.90) m/uL Hgb (13.0-17.5) gm/dL Hct (39.0-53.0) % MCV (80.0-100.0) fL MCH (25.0-35.0) pg MCHC (31.0-37.0) g/dL Plt Count (150-450) k/uL Neutrophils # (1.3-7.7) k/uL Sodium (137-145) mmol/L Glucose (74-99) mg/dL POC Glucose (mg/dL) 193 H (75-99) mg/dL Hemoglobin A1c 14.9 H (4.0-6.0) % Calcium (8.4-10.2) mg/dL Total Bilirubin (0.2-1.3) mg/dL Total Protein (6.3-8.2) g/dL Albumin (3.5-5.0) g/dL Urine Protein 1+ H (Negative) Urine Glucose (UA) 4+ H (Negative) Urine Ketones Trace H (Negative) Urine Blood Small H (Negative) Urine RBC 19 H (0-5) /hpf Amorphous Sediment Rare H (None) /hpf Hyaline Casts 5 H (0-2) /lpf Urine Mucus Few H (None) /hpf 02/10/21 02/10/21 02/11/21 Range/Units 17:52 20:28 02:24 WBC (3.8-10.6) k/uL RBC (4.30-5.90) m/uL Hgb (13.0-17.5) gm/dL Hct (39.0-53.0) % MCV (80.0-100.0) fL MCH (25.0-35.0) pg MCHC (31.0-37.0) g/dL Plt Count (150-450) k/uL Neutrophils # (1.3-7.7) k/uL Sodium (137-145) mmol/L Glucose (74-99) mg/dL POC Glucose (mg/dL) 66 L 181 H 194 H (75-99) mg/dL Hemoglobin A1c (4.0-6.0) % Calcium (8.4-10.2) mg/dL Total Bilirubin (0.2-1.3) mg/dL Total Protein (6.3-8.2) g/dL Albumin (3.5-5.0) g/dL Urine Protein (Negative) Urine Glucose (UA) (Negative) Urine Ketones (Negative) Urine Blood (Negative) Urine RBC (0-5) /hpf Amorphous Sediment (None) /hpf Hyaline Casts (0-2) /lpf Urine Mucus (None) /hpf 02/11/21 02/11/21 02/11/21 Range/Units 06:57 07:51 07:51 WBC 14.9 H (3.8-10.6) k/uL RBC 3.55 L (4.30-5.90) m/uL Hgb 7.6 L (13.0-17.5) gm/dL Hct 24.9 L (39.0-53.0) % MCV 70.4 L (80.0-100.0) fL MCH 21.3 L (25.0-35.0) pg MCHC 30.3 L (31.0-37.0) g/dL Plt Count 522 H (150-450) k/uL Neutrophils # 12.6 H (1.3-7.7) k/uL Sodium 134 L (137-145) mmol/L Glucose 258 H (74-99) mg/dL POC Glucose (mg/dL) 252 H (75-99) mg/dL Hemoglobin A1c (4.0-6.0) % Calcium 8.2 L (8.4-10.2) mg/dL Total Bilirubin 0.1 L (0.2-1.3) mg/dL Total Protein 5.8 L (6.3-8.2) g/dL Albumin 2.7 L (3.5-5.0) g/dL Urine Protein (Negative) Urine Glucose (UA) (Negative) Urine Ketones (Negative) Urine Blood (Negative) Urine RBC (0-5) /hpf Amorphous Sediment (None) /hpf Hyaline Casts (0-2) /lpf Urine Mucus (None) /hpf 02/11/21 Range/Units 10:02 WBC (3.8-10.6) k/uL RBC (4.30-5.90) m/uL Hgb (13.0-17.5) gm/dL Hct (39.0-53.0) % MCV (80.0-100.0) fL MCH (25.0-35.0) pg MCHC (31.0-37.0) g/dL Plt Count (150-450) k/uL Neutrophils # (1.3-7.7) k/uL Sodium (137-145) mmol/L Glucose (74-99) mg/dL POC Glucose (mg/dL) 281 H (75-99) mg/dL Hemoglobin A1c (4.0-6.0) % Calcium (8.4-10.2) mg/dL Total Bilirubin (0.2-1.3) mg/dL Total Protein (6.3-8.2) g/dL Albumin (3.5-5.0) g/dL Urine Protein (Negative) Urine Glucose (UA) (Negative) Urine Ketones (Negative) Urine Blood (Negative) Urine RBC (0-5) /hpf Amorphous Sediment (None) /hpf Hyaline Casts (0-2) /lpf Urine Mucus (None) /hpf Microbiology - Last 24 Hours (Table) 02/09/21 21:30 Blood Culture - Preliminary Blood No Growth after 24 hours 02/09/21 21:15 Blood Culture - Preliminary Blood No Growth after 24 hours Assessment and Plan Plan: Bilateral lower extremities cellulitis, with open ulcer on the bottom of the right foot Sepsis as evidenced by leukocytosis, white blood count 28.8 on presentation, blood cultures negative so far Acute metabolic acidosis, Hyponatremia, sodium 127 on presentation improved to 134 today Evidence of anemia hemoglobin 7.5, will check iron studies and vitamin B12 and folate level Underlying history of diabetes mellitus, poorly controlled hemoglobin A1c 14.7, patient was counseled in length in regards to taking insulin at home Underlying history of peripheral neuropathy Underlying history of seizure disorder Underlying history of gastroesophageal reflux disease Underlying history of hyperlipidemia At this time patient is admitted to medical floor He was started on IV antibiotics cefazolin Infectious disease consultation requested He is maintained on IV fluid
[2021-02-11 11:46] LABS: Glucose,Whole Blood 294 mg/dL (75-99)
[2021-02-11] MEDS: NON FORMULARY DRUG (Phenytoin Sodium Extended [Dilantin] 30 MG Capsule) PO SCH (11:57)
[2021-02-11 15:36] VITALS: BMI 19.1
[2021-02-11 16:30] LABS: Glucose,Whole Blood 271 mg/dL (75-99)
[2021-02-11 20:32] LABS: Glucose,Whole Blood 232 mg/dL (75-99)
[2021-02-11 20:39] LABS: % Iron Saturation 2.15 (15.00-50.00); Folate, Serum 5.5 ng/mL (4.40-31.00)
[2021-02-11] MEDS: DILANTIN 30 MG PO SCH (21:13)
[2021-02-11] MEDS: ATORVASTATIN 20 MG TAB PO SCH (21:13)
--- NOTE | 2021-02-11 22:03 | PN ---
PROGRESS NOTE DATE OF SERVICE: 02/11/2021 REASON FOR FOLLOWUP: Right diabetic foot infection with infected callus. INTERVAL HISTORY: Patient is afebrile. The patient is breathing comfortably. Overall pain and discomfort to the right foot is slightly decreased intensity. No chest pain, shortness of breath or cough. No abdominal pain. No diarrhea. PHYSICAL EXAMINATION: Blood pressure 149/74, pulse 118, temperature 99. He is 92% on room air. General description is a middle-aged male lying in bed in no distress. Respiratory system: Unlabored breathing, clear to auscultation anteriorly. Heart S1, S2. Regular rate and rhythm. Abdomen soft, no tenderness. Extremities: No edema of the feet. Right foot wound is currently dressed. Minimal drainage on the dressing. LABS: Blood culture negatives. White count down to 14. DIAGNOSTIC IMPRESSION/PLAN: Patient with right diabetic foot infection with plantar and cellulitis. White count responded to the cefazolin with concern for possible infected callus. May benefit from surgical debridement and evaluation by vascular surgery. Continue cefazolin. Monitor clinical course closely. MMODL / IJN: [id number] /
[2021-02-11] MEDS: SODIUM CHLORIDE 0.9% 1,000 ML IV SCH ×2 (23:10→23:49)
[2021-02-12 02:20] LABS: Glucose,Whole Blood 67 mg/dL (75-99)
[2021-02-12 02:34] LABS: Glucose,Whole Blood 81 mg/dL (75-99)
[2021-02-12 05:59] LABS: Basophils % (A) 0 %; Eosinophils % (A) 0 %; HCT 23.6 % (39.0-53.0); HGB 7.2 gm/dL (13.0-17.5); Hypochromasia Marked; Lymphocytes # (A) 1.7 k/uL (1.0-4.8); Lymphocytes % (A) 12 %; MCH 21.3 pg (25.0-35.0); MCHC 30.5 g/dL (31.0-37.0); MCV 69.8 fL (80.0-100.0); Mean Platelet Volume 6.9; Microcytosis Moderate; Monocytes # (A) 0.7 k/uL (0-1.0); Monocytes % (A) 5 %; Neutrophils # (A) 12.1 k/uL (1.3-7.7); Neutrophils % (A) 83 %; Platelet Count 515 k/uL (150-450); RBC 3.37 m/uL (4.30-5.90); RDW 15.6 % (11.5-15.5); WBC 14.7 k/uL (3.8-10.6)
[2021-02-12 06:17] LABS: ALT 9 U/L (4-49); AST 33 U/L (17-59); African American GFR (CKD) >90 (>60 ml/min/1.73 sqM); Albumin 2.5 g/dL (3.5-5.0); Alkaline Phosphatase 114 U/L (38-126); Anion Gap 5 mmol/L; Blood Urea Nitrogen 9 mg/dL (9-20); Calcium 7.8 mg/dL (8.4-10.2); Carbon Dioxide 27 mmol/L (22-30); Chloride 103 mmol/L (98-107); Glucose 82 mg/dL (74-99); Non-African American GFR(CKD) >90 (>60 ml/min/1.73 sqM); Potassium 3.8 mmol/L (3.5-5.1); Sodium 135 mmol/L (137-145); Total Bilirubin <0.1 mg/dL (0.2-1.3); Total Protein 5.7 g/dL (6.3-8.2)
[2021-02-12 07:36] LABS: Glucose,Whole Blood 121 mg/dL (75-99)
[2021-02-12] MEDS: ENOXAPARIN 40 MG/0.4 ML SYRINGE SQ SCH (10:17)
[2021-02-12] MEDS: PANTOPRAZOLE 40 MG TABLET PO SCH (10:17)
[2021-02-12] MEDS: PIOGLITAZONE 15 MG TAB PO SCH (10:17)
[2021-02-12] MEDS: PREGABALIN 50 MG CAP PO SCH ×3 (10:18→21:34)
[2021-02-12] MEDS: DILANTIN 30 MG PO SCH ×2 (10:18→21:34)
[2021-02-12 12:01] LABS: Glucose,Whole Blood 304 mg/dL (75-99)
[2021-02-12] MEDS: INSULIN ASPART (NovoLOG) 100 UNIT/ML VIAL SQ SCH ×4 (12:15→21:35)
[2021-02-12] MEDS: MUPIROCIN 2% OINT 22 GM TUBE TOPICAL SCH (12:16)
[2021-02-12] MEDS: INSULIN DETEMIR (LEVEMIR) 100 UNIT/ML SYR SQ SCH (13:41)
[2021-02-12 17:03] LABS: Glucose,Whole Blood 227 mg/dL (75-99)
--- NOTE | 2021-02-12 17:28 | P.PN ---
Subjective Progress Note Date: 02/12/21 Pietro Ryder, is a 60 year-old male came in with complaints of for redness and cellulitis of the left lower extremity patient has a callus and skin breakdown on the plantar aspect for the first metatarsal area. Patient does have leukocytosis without any fever denied any history of MRSA. Patient is also found to have some anion gap are do not have any lactic acid levels available at this time patient has some acetone in the urine can be starvation ketosis and patient was believed to have DKA patient received IV fluids patient's serum sodium was low at 129 improved with IV fluids and correction of blood glucose. Patient is still receiving IV fluids at this time. Patient appears to diabetic neuropathy and is on Lyrica. he does follow up with podiatric On 02/11/2021 patient was seen and examined on the medical floor, he is alert and oriented 3 in no apparent distress, he is feeling better, he still has bilateral lower extremity erythema and tenderness there is an open ulcer on the bottom of the right foot otherwise patient denies any complaints there is no fever or chills no headache or dizziness no chest pain no shortness of breath no cough no nausea or vomiting no abdominal pain no diarrhea and no urinary symptoms On 02/12/2021 patient was seen and examined on the medical floor, he is alert and oriented 3 he is still complaining of bilateral lower extremity erythema and tenderness there is an open ulcer on the bottom of the right foot otherwise patient denies any complaints there is no fever or chills no headache or dizziness no chest pain no shortness of breath no cough no nausea or vomiting no abdominal pain no diarrhea and no urinary symptoms. Vascular surgery consult requested. Objective - Vital Signs Vital signs: Vital Signs Temp 99.4 F 02/12/21 14:58 Pulse 107 H 02/12/21 14:58 Resp 18 02/12/21 14:58 BP 135/74 02/12/21 14:58 Pulse Ox 85 L 02/12/21 14:58 Intake & Output 02/11/21 02/12/21 02/12/21 18:59 06:59 18:59 Weight 45.813 kg Other: Voiding Method Urinal Toilet Urinal # Voids 3 # Bowel Movements 3 - Exam In general patient is alert and oriented x 3 in no distress HEENT head normocephalic and atraumatic Neck is supple no JVD no goiter no lymphadenopathy no carotid bruit Chest examination is clear to auscultation no crackles no wheezing Cardiac exam reveals regular heart sounds S1 and S2 no gallops no murmurs Abdomen is soft nontender no organomegaly with normal bowel sounds Extremity exam reveals no edema, there is bilateral lower extremity erythema and open ulcer on the bottom of the right foot Neurological examination reveals no gross focal deficits - Labs CBC & Chem 7: 02/12/21 05:07 02/12/21 05:07 Labs: Abnormal Lab Results - Last 24 Hours (Table) 02/11/21 02/11/21 02/12/21 Range/Units 07:51 20:30 02:18 WBC (3.8-10.6) k/uL RBC (4.30-5.90) m/uL Hgb (13.0-17.5) gm/dL Hct (39.0-53.0) % MCV (80.0-100.0) fL MCH (25.0-35.0) pg MCHC (31.0-37.0) g/dL RDW (11.5-15.5) % Plt Count (150-450) k/uL Neutrophils # (1.3-7.7) k/uL Sodium (137-145) mmol/L Creatinine (0.66-1.25) mg/dL POC Glucose (mg/dL) 232 H 67 L (75-99) mg/dL Calcium (8.4-10.2) mg/dL Iron 6 L (65-175) ug/dL % Saturation 2.15 L (15.00-50.00) Total Bilirubin (0.2-1.3) mg/dL Total Protein (6.3-8.2) g/dL Albumin (3.5-5.0) g/dL 02/12/21 02/12/21 02/12/21 Range/Units 05:07 05:07 07:34 WBC 14.7 H (3.8-10.6) k/uL RBC 3.37 L (4.30-5.90) m/uL Hgb 7.2 L (13.0-17.5) gm/dL Hct 23.6 L (39.0-53.0) % MCV 69.8 L (80.0-100.0) fL MCH 21.3 L (25.0-35.0) pg MCHC 30.5 L (31.0-37.0) g/dL RDW 15.6 H (11.5-15.5) % Plt Count 515 H (150-450) k/uL Neutrophils # 12.1 H (1.3-7.7) k/uL Sodium 135 L (137-145) mmol/L Creatinine 0.62 L (0.66-1.25) mg/dL POC Glucose (mg/dL) 121 H (75-99) mg/dL Calcium 7.8 L (8.4-10.2) mg/dL Iron (65-175) ug/dL % Saturation (15.00-50.00) Total Bilirubin <0.1 L (0.2-1.3) mg/dL Total Protein 5.7 L (6.3-8.2) g/dL Albumin 2.5 L (3.5-5.0) g/dL 02/12/21 Range/Units 11:59 WBC (3.8-10.6) k/uL RBC (4.30-5.90) m/uL Hgb (13.0-17.5) gm/dL Hct (39.0-53.0) % MCV (80.0-100.0) fL MCH (25.0-35.0) pg MCHC (31.0-37.0) g/dL RDW (11.5-15.5) % Plt Count (150-450) k/uL Neutrophils # (1.3-7.7) k/uL Sodium (137-145) mmol/L Creatinine (0.66-1.25) mg/dL POC Glucose (mg/dL) 304 H (75-99) mg/dL Calcium (8.4-10.2) mg/dL Iron (65-175) ug/dL % Saturation (15.00-50.00) Total Bilirubin (0.2-1.3) mg/dL Total Protein (6.3-8.2) g/dL Albumin (3.5-5.0) g/dL Microbiology - Last 24 Hours (Table) 02/09/21 21:15 Blood Culture - Preliminary Blood No Growth after 48 hours 02/09/21 21:30 Blood Culture - Preliminary Blood No Growth after 48 hours Assessment and Plan Plan: Bilateral lower extremities cellulitis, with open ulcer on the bottom of the right foot Sepsis as evidenced by leukocytosis, white blood count 28.8 on presentation, blood cultures negative so far Acute metabolic acidosis, Hyponatremia, sodium 127 on presentation improved to 134 today Evidence of anemia hemoglobin 7.5, will check iron studies and vitamin B12 and folate level Underlying history of diabetes mellitus, poorly controlled hemoglobin A1c 14.7, patient was counseled in length in regards to taking insulin at home Underlying history of peripheral neuropathy Underlying history of seizure disorder Underlying history of gastroesophageal reflux disease Underlying history of hyperlipidemia At this time patient is admitted to medical floor He was started on IV antibiotics cefazolin Infectious disease consultation requested He is maintained on IV fluid
[2021-02-12] MEDS: SODIUM CHLORIDE 0.9% 1,000 ML IV SCH (17:35)
[2021-02-12] MEDS: ACETAMINOPHEN TAB 325 MG TAB PO PRN (19:33)
[2021-02-12 20:39] LABS: Glucose,Whole Blood 213 mg/dL (75-99)
[2021-02-12] MEDS: DIPHENOX-ATROP 2.5-0.025 MG 1 EACH TAB PO PRN (21:34)
[2021-02-12] MEDS: ATORVASTATIN 20 MG TAB PO SCH (21:34)
--- NOTE | 2021-02-12 22:17 | PN ---
PROGRESS NOTE DATE OF SERVICE: 02/12/2021 REASON FOR FOLLOWUP: Right leg wound and diabetic foot infection. INTERVAL HISTORY: The patient is afebrile. The patient is breathing comfortably. The patient denies having any chest pain or shortness of breath or cough. No abdominal pain. No pain to the left foot area. PHYSICAL EXAMINATION: Blood pressure 147/84 with a pulse of 107, temperature 98.4. He is 95% on room air. General description is a middle-aged male lying in bed in no distress. Respiratory system: Unlabored breathing. Clear to auscultation anteriorly. Heart S1, S2. Regular rate and rhythm. Abdomen soft, no tenderness. Right foot plantar aspect with a blister which has ruptured with some blood-stained drainage. LABS: Hemoglobin 7.8, white count 14.7, creatinine 0.62. DIAGNOSTIC IMPRESSION AND PLAN: Patient with a right diabetic foot infection with cellulitis. The patient is covered with cefazolin; to continue. Local care with dry Aquacel Silver dressing and David wrap. Continue with supportive care. MMODL / MICHEALN: [id number] / MTDD
--- NOTE | 2021-02-12 22:28 | XR ---
EXAMINATION TYPE: XR chest 2V DATE OF EXAM: 02/12/2021 COMPARISON: 02/09/2021 HISTORY: Fever TECHNIQUE: FINDINGS: There is some infiltrate and pleural thickening and fluid at the right lung base. Left lung is fairly clear. There is no heart failure. There are no hilar masses. Mediastinum is normal. IMPRESSION: There is right lower lobe pneumonia and right pleural effusion which is new compared to r ecent exam.
[2021-02-13 02:16] LABS: Glucose,Whole Blood 69 mg/dL (75-99)
[2021-02-13 03:30] LABS: Glucose,Whole Blood 107 mg/dL (75-99)
[2021-02-13] MEDS: SODIUM CHLORIDE 0.9% 1,000 ML IV SCH ×3 (04:12→22:53)
--- NOTE | 2021-02-13 06:13 | CT ---
EXAM: CT Angiography Chest With Intravenous Contrast CLINICAL HISTORY: Elevated D Dimer. ISO 370 65ml. DLP: 186 CTDI 9.37 TECHNIQUE: Axial computed tomographic angiography images of the chest with intravenous contrast. CTDI is 9.37 mGy and DLP is 186 mGy-cm. This CT exam was performed using one or more of the following dose reduction techniques: automated exposure control, adjustment of the mA and/or kV according to patient size, and/or use of iterative reconstruction technique. MIP reconstructed images were created and reviewed. COMPARISON: 02/17/2020 FINDINGS: Pulmonary arteries: No filling defects. Aorta: No thoracic aortic aneurysm. Lungs: Bilateral compression atelectasis. 7 mm nodule in the right upper lobe Pleural space: No pneumothorax. Moderate bilateral pleural effusions. Heart: No cardiomegaly. No pericardial effusion. Bones/joints: No acute fracture or dislocation. Soft tissues: Unremarkable. Lymph nodes: No enlarged lymph nodes. IMPRESSION: 1. No pulmonary embolism 2. Moderate bilateral pleural effusions with compressive atelectasis. 3. 7 mm nodule in the right upper lobe (series 401 image 56). Possibly infectious or inflammatory in etiology. Follow-up in 6-12 months.
[2021-02-13 07:07] LABS: Glucose,Whole Blood 235 mg/dL (75-99)
[2021-02-13] MEDS: INSULIN ASPART (NovoLOG) 100 UNIT/ML VIAL SQ SCH ×4 (07:42→20:29)
[2021-02-13] MEDS: INSULIN DETEMIR (LEVEMIR) 100 UNIT/ML SYR SQ SCH (07:42)
[2021-02-13] MEDS: PIOGLITAZONE 15 MG TAB PO SCH (07:43)
[2021-02-13] MEDS: MUPIROCIN 2% OINT 22 GM TUBE TOPICAL SCH (07:43)
[2021-02-13] MEDS: PANTOPRAZOLE 40 MG TABLET PO SCH (07:43)
[2021-02-13] MEDS: PREGABALIN 50 MG CAP PO SCH ×3 (07:43→20:31)
[2021-02-13] MEDS: DILANTIN 30 MG PO SCH ×2 (07:44→20:32)
[2021-02-13] MEDS: ENOXAPARIN 40 MG/0.4 ML SYRINGE SQ SCH (07:45)
[2021-02-13 09:25] LABS: Basophils % (A) 0 %; Eosinophils # (A) 0.1 k/uL (0-0.7); Eosinophils % (A) 1 %; HCT 26.2 % (39.0-53.0); HGB 7.5 gm/dL (13.0-17.5); Hypochromasia Marked; Lymphocytes % (A) 7 %; MCH 21.2 pg (25.0-35.0); MCHC 28.7 g/dL (31.0-37.0); MCV 74.1 fL (80.0-100.0); Mean Platelet Volume 7.4; Microcytosis Slight; Monocytes # (A) 0.5 k/uL (0-1.0); Monocytes % (A) 4 %; Neutrophils # (A) 12.2 k/uL (1.3-7.7); Neutrophils % (A) 88 %; Platelet Count 549 k/uL (150-450); RBC 3.53 m/uL (4.30-5.90); RDW 15.5 % (11.5-15.5); WBC 13.9 k/uL (3.8-10.6)
[2021-02-13 09:41] LABS: ALT 9 U/L (4-49); AST 18 U/L (17-59); African American GFR (CKD) >90 (>60 ml/min/1.73 sqM); Albumin 2.5 g/dL (3.5-5.0); Alkaline Phosphatase 114 U/L (38-126); Anion Gap 8 mmol/L; Blood Urea Nitrogen 11 mg/dL (9-20); Calcium 7.8 mg/dL (8.4-10.2); Carbon Dioxide 24 mmol/L (22-30); Chloride 101 mmol/L (98-107); Glucose 290 mg/dL (74-99); Non-African American GFR(CKD) >90 (>60 ml/min/1.73 sqM); Potassium 4.1 mmol/L (3.5-5.1); Sodium 133 mmol/L (137-145); Total Bilirubin <0.1 mg/dL (0.2-1.3); Total Protein 5.5 g/dL (6.3-8.2)
--- NOTE | 2021-02-13 10:23 | US ---
EXAMINATION TYPE: US venous doppler duplex LE DATE OF EXAM: 02/13/2021 9:41 AM COMPARISON: NONE CLINICAL HISTORY: elevated D dimer, lower extremity pain. No leg pain, swelling, or redness per patie nt. SIDE PERFORMED: Bilateral TECHNIQUE: The lower extremity deep venous system is examined utilizing real time linear array sonog heraclio with graded compression, doppler sonography and color-flow sonography. VESSELS IMAGED: Common Femoral Vein Deep Femoral Vein Greater Saphenous Vein * Femoral Vein Popliteal Vein Small Saphenous Vein * Proximal Calf Veins (* superficial vessels) Right Leg: Negative for DVT Left Leg: Negative for DVT IMPRESSION: 1. Bilateral lower extremity ultrasound negative for deep venous thrombosis.
[2021-02-13] MEDS: DIPHENOX-ATROP 2.5-0.025 MG 1 EACH TAB PO PRN ×2 (10:43→22:52)
--- NOTE | 2021-02-13 11:26 | P.CONS ---
History of Present Illness - Reason for Consult Consult date: 02/13/21 wound care - History of Present Illness This is a 60-year-old patient being seen on observation unit for a nonhealing ulceration to the left posterior lower extremity and to the right plantar foot. Patient follows with Dr. Guerrier in the wound care center. However the last visit to the wound care center was at the 01/28/2021. At that time patient had been utilizing Santyl to the ulceration. She is extremely noncompliant. Patient's past medical history significant for diabetes, GERD, hyperlipidemia, he is a lifelong nonsmoker. The left posterior lower extremity ulceration measures approximate 7 x 0.4 x 0.3 cm. Ulceration has fat layer exposure, granulation seen within the wound bed with moderate Slough, wound edges are attached to the wound base. No tunneling or undermining noted. The right plantar forefoot ulceration appears infected. It has significant amount of purulent drainage to the site. Measuring approximately 3 x 4 x 0.4 cm. Review Of Systems: Constitutional: No fever, no chills, no night sweats. No weight change. No weakness, fatigue or lethargy. No daytime sleepiness. Integumentary:reports wounds, no lesions. No rash or pruritus. No unusual bruising. No change in hair or nails. Physical exam: General Appearance: Alert, cooperative, no distress, appears stated age. Skin: See HPI all other Skin color, texture, tugor normal, no rashes or lesions. Neurologic: Alert oriented x3 Assessment: 1. Diabetic foot ulcer 2. Non-pressure ulcer of left lower extremity with fat layer exposure 3. Nonpressure ulcer of right foot with muscle involvement without necrosis Plan: 1. Patient is scheduled for surgical debridement. Before surgery, apply absorptive silver, saline moistened gauze, dry gauze, rolled gauze and secure with paper tape. Change Thursday. Postsurgical intervention patient may return to the absorptive silver until he is seen in the wound care center on February 25 at 2:[address] Guerrier. Thank you for the consultation any questions was contact the wound care center DNP note has been reviewed and discussed with Dr. Higgins and the impression and plan of care has been directed as dictated. Past Medical History Past Medical History: Cancer, Diabetes Mellitus, GERD/Reflux, Hyperlipidemia, Osteoarthritis (OA), Seizure Disorder Additional Past Medical History / Comment(s): IDDM type 1, wounds to upper back from scratching and L leg-seen at [facility], past L lower extremity cellulitis with sepsis, L wrist cancerous tumor removed, past seizure over 6 months ago, arthri tis L knee, vertigo, occasional diarrhea, pt cannot recall why he takes lyrica. History of Any Multi-Drug Resistant Organisms: MRSA Year Discovered:: 12/29/19 MDRO Source:: Left Leg Past Surgical History: Tonsillectomy Additional Past Surgical History / Comment(s): 01/23/20 angiogram L leg, 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, LT Eye SX DONE FOR LAZY EYE. Past Anesthesia/Blood Transfusion Reactions: No Reported Reaction Past Psychological History: Depression Additional Psychological History / Comment(s): Pt resides with friends. He has a glucometer. He does not drive, he usually uses bus system. He is otherwise, independent. Smoking Status: Never smoker Past Alcohol Use History: None Reported Past Drug Use History: None Reported - Past Family History Father Family Medical History: Myocardial Infarction ([place]) Additional Family Medical History / Comment(s): Father of a [place] at the age of 57yrs. Mother Family Medical History: Cancer Additional Family Medical History / Comment(s): Mother from cancer at the age of 61 or 62 . Pt cannot recall type of cancer. Sister(s) Family Medical History: Diabetes Mellitus Additional Family Medical History / Comment(s): Sister had DM type 1. She is . Medications and Allergies Home Medications Medication Instructions Recorded Confirmed Type Omeprazole 20 mg PO DAILY 06/13/17 02/09/21 History Pioglitazone HCl [Actos] 15 mg PO DAILY 10/03/18 02/09/21 History Diphenox-Atrop 2.5-0.025 mg 1 tab PO BID PRN 11/17/19 02/09/21 History [Lomotil] Triamcinolone 0.5% Cream [Kenalog 1 applic TOPICAL DAILY 01/19/20 02/09/21 History 0.5% Cream] Insulin Glargine [Lantus Vial] 50 unit SQ DAILY 05/15/20 02/09/21 History Pregabalin [Lyrica] 50 mg PO TID 05/15/20 02/09/21 History Rosuvastatin [Crestor] 10 mg PO HS 05/15/20 02/09/21 History Mupirocin 2% Oint [Bactroban 2% 1 applic TOPICAL DAILY 12/29/20 02/09/21 History Oint] Phenytoin Sodium Extended 30 mg PO BID 02/09/21 02/09/21 History [Dilantin] traMADol HCL 50 mg PO Q6H PRN 02/09/21 02/09/21 History Allergies Allergy/AdvReac Type Severity Reaction Status Date / Time No Known Allergies Allergy Verified 02/09/21 22:27 Physical Exam Vitals: Vital Signs Temp Pulse Resp BP Pulse Ox 02/13/21 08:51 98.5 F 112 H 18 130/75 93 L 02/13/21 02:00 98.0 F 93 17 132/75 98 02/12/21 19:59 101.2 F H 116 H 17 147/84 88 L 02/12/21 14:58 99.4 F 107 H 18 135/74 85 L Intake and Output 02/12/21 02/13/21 02/13/21 22:59 06:59 14:59 Intake Total 950 Balance 950 Intake: Intake, IV Titration 950 Amount Sodium Chloride 0.9% 1, 900 000 ml @ 75 mls/hr IV . [id number] [facility] Rx#:[id number] ceFAZolin 2 gm In Sodium 50 Chloride 0.9% 50 ml @ 100 mls/hr IVPB Q8HR [facility] Rx# :[id number] Results CBC & Chem 7: 02/13/21 09:14 02/13/21 09:14 Labs: Abnormal Lab Results - Last 24 Hours (Table) 02/12/21 02/12/21 02/12/21 Range/Units 11:59 17:01 20:38 WBC (3.8-10.6) k/uL RBC (4.30-5.90) m/uL Hgb (13.0-17.5) gm/dL Hct (39.0-53.0) % MCV (80.0-100.0) fL MCH (25.0-35.0) pg MCHC (31.0-37.0) g/dL Plt Count (150-450) k/uL Neutrophils # (1.3-7.7) k/uL D-Dimer (<0.60) mg/L FEU Sodium (137-145) mmol/L Creatinine (0.66-1.25) mg/dL Glucose (74-99) mg/dL POC Glucose (mg/dL) 304 H 227 H 213 H (75-99) mg/dL Calcium (8.4-10.2) mg/dL Total Bilirubin (0.2-1.3) mg/dL C-Reactive Protein (<1.0) mg/dL Total Protein (6.3-8.2) g/dL Albumin (3.5-5.0) g/dL Procalcitonin (0.02-0.09) ng/mL 02/12/21 02/12/21 02/12/21 Range/Units 22:34 22:34 22:34 WBC (3.8-10.6) k/uL RBC (4.30-5.90) m/uL Hgb (13.0-17.5) gm/dL Hct (39.0-53.0) % MCV (80.0-100.0) fL MCH (25.0-35.0) pg MCHC (31.0-37.0) g/dL Plt Count (150-450) k/uL Neutrophils # (1.3-7.7) k/uL D-Dimer 2.01 H (<0.60) mg/L FEU Sodium (137-145) mmol/L Creatinine (0.66-1.25) mg/dL Glucose (74-99) mg/dL POC Glucose (mg/dL) (75-99) mg/dL Calcium (8.4-10.2) mg/dL Total Bilirubin (0.2-1.3) mg/dL C-Reactive Protein 22.3 H (<1.0) mg/dL Total Protein (6.3-8.2) g/dL Albumin (3.5-5.0) g/dL Procalcitonin 0.25 H (0.02-0.09) ng/mL 02/13/21 02/13/21 02/13/21 Range/Units 02:03 03:29 07:06 WBC (3.8-10.6) k/uL RBC (4.30-5.90) m/uL Hgb (13.0-17.5) gm/dL Hct (39.0-53.0) % MCV (80.0-100.0) fL MCH (25.0-35.0) pg MCHC (31.0-37.0) g/dL Plt Count (150-450) k/uL Neutrophils # (1.3-7.7) k/uL D-Dimer (<0.60) mg/L FEU Sodium (137-145) mmol/L Creatinine (0.66-1.25) mg/dL Glucose (74-99) mg/dL POC Glucose (mg/dL) 69 L 107 H 235 H (75-99) mg/dL Calcium (8.4-10.2) mg/dL Total Bilirubin (0.2-1.3) mg/dL C-Reactive Protein (<1.0) mg/dL Total Protein (6.3-8.2) g/dL Albumin (3.5-5.0) g/dL Procalcitonin (0.02-0.09) ng/mL 02/13/21 02/13/21 Range/Units 09:14 09:14 WBC 13.9 H (3.8-10.6) k/uL RBC 3.53 L (4.30-5.90) m/uL Hgb 7.5 L (13.0-17.5) gm/dL Hct 26.2 L (39.0-53.0) % MCV 74.1 L (80.0-100.0) fL MCH 21.2 L (25.0-35.0) pg MCHC 28.7 L (31.0-37.0) g/dL Plt Count 549 H (150-450) k/uL Neutrophils # 12.2 H (1.3-7.7) k/uL D-Dimer (<0.60) mg/L FEU Sodium 133 L (137-145) mmol/L Creatinine 0.60 L (0.66-1.25) mg/dL Glucose 290 H (74-99) mg/dL POC Glucose (mg/dL) (75-99) mg/dL Calcium 7.8 L (8.4-10.2) mg/dL Total Bilirubin <0.1 L (0.2-1.3) mg/dL C-Reactive Protein (<1.0) mg/dL Total Protein 5.5 L (6.3-8.2) g/dL Albumin 2.5 L (3.5-5.0) g/dL Procalcitonin (0.02-0.09) ng/mL Microbiology - Last 24 Hours (Table) 02/09/21 21:30 Blood Culture - Preliminary Blood No Growth after 72 hours 02/09/21 21:15 Blood Culture - Preliminary Blood No Growth after 72 hours Assessment and Plan (1) Non-pressure ulcer of left lower extremity with fat layer exposed Current Visit: Yes Status: Acute Code(s): L97.922 - NON-PRS CHR UL UNSP PRT OF L LOW LEG W FAT LAYER EXPOSED SNOMED Code(s): 08613465 (2) Non-pressure chronic ulcer of other part of right foot with muscle involvement without evidence of necrosis Current Visit: Yes Status: Acute Code(s): L97.515 - NON-PRS CHR ULC OTH PRT R FOOT WITH MSL INVL W/O EVD OF NECR SNOMED Code(s): 887695589 (3) Diabetic foot ulcer Current Visit: Yes Status: Acute Code(s): E11.621 - TYPE 2 DIABETES MELLITUS WITH FOOT ULCER; L97.509 - NON-PRESSURE CHRONIC ULCER OTH PRT UNSP FOOT W UNSP SEVERITY SNOMED Code(s): 341386815
--- NOTE | 2021-02-13 11:40 | P.GSCN ---
History of Present Illness Consult date: 02/13/21 Reason for Consult: Peripheral arterial disease Requesting physician: Helen Chen History of present illness: This is a 60-year-old male who presented to the emergency department 4 days ago with complaints of right lower extremity wound worsening with increased pain and redness. He has had difficulty walking and using a cane. He also states that he has a wound to the left lower extremity. He estimates that he has had these wounds per approximately 3 weeks and has followed with the wound care clinic here at [facility]. He states he's been getting treatment, denies any antibiotics outpatient. He denies any fevers but states he has had some chills. He is unsure how wounds began. He has a past medical history including type I diabetes mellitus, GERD, hyperlipidemia, osteoarthritis, and seizure disorder. He denies any history of tobacco use and is a current nonsmoker. He has history apparently of previous wounds and being seen at the wound care center with cellulitis and sepsis. He continued on admission he had a max temperature 101.2 with leukocytosis. His initial labs WBC 28.8 hemoglobin 8.8 platelet count 616,000 sodium 127 glucose was 394 with positive acetone on admission. Patient has been afebrile greater than 24 hours. Repeat WBC 13.9 hemoglobin 7.5 patient has consistency with a microcytic anemia iron studies show iron deficiency anemia. So had a d-dimer of 2.0. Underwent a CT angiogram of the chest to rule out pulmonary embolism which was negative. He denies any significant pain to his lower extremities other than with walking due to the right foot wound being on the plantar aspect. Other than that he states he does not have pain when walking in his lower extremities. He is denying any chest pain or shortness of breath. Review of Systems 14 point review systems was completed all pertinent positives and negatives as stated in the HPI Past Medical History Past Medical History: Cancer, Diabetes Mellitus, GERD/Reflux, Hyperlipidemia, Osteoarthritis (OA), Seizure Disorder Additional Past Medical History / Comment(s): IDDM type 1, wounds to upper back from scratching and L leg-seen at [facility], past L lower extremity cellulitis with sepsis, L wrist cancerous tumor removed, past seizure over 6 months ago, arthritis L knee, vertigo, occasional diarrhea, pt cannot recall why he takes lyrica. History of Any Multi-Drug Resistant Organisms: MRSA Year Discovered:: 12/29/19 MDRO Source:: Left Leg Past Surgical History: Tonsillectomy Additional Past Surgical History / Comment(s): 01/23/20 angiogram L leg, 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, LT Eye SX DONE FOR LAZY EYE. Past Anesthesia/Blood Transfusion Reactions: No Reported Reaction Past Psychological History: Depression Additional Psychological History / Comment(s): Pt resides with friends. He has a glucometer. He does not drive, he usually uses bus system. He is otherwise, independent. Smoking Status: Never smoker Past Alcohol Use History: None Reported Past Drug Use History: None Reported - Past Family History Father Family Medical History: Myocardial Infarction ([place]) Additional Family Medical History / Comment(s): Father of a [place] at the age of 57yrs. Mother Family Medical History: Cancer Additional Family Medical History / Comment(s): Mother from cancer at the age of 61 or 62 . Pt cannot recall type of cancer. Sister(s) Family Medical History: Diabetes Mellitus Additional Family Medical History / Comment(s): Sister had DM type 1. She is . Medications and Allergies Home Medications Medication Instructions Recorded Confirmed Type Omeprazole 20 mg PO DAILY 06/13/17 02/09/21 History Pioglitazone HCl [Actos] 15 mg PO DAILY 10/03/18 02/09/21 History Diphenox-Atrop 2.5-0.025 mg 1 tab PO BID PRN 11/17/19 02/09/21 History [Lomotil] Triamcinolone 0.5% Cream [Kenalog 1 applic TOPICAL DAILY 01/19/20 02/09/21 History 0.5% Cream] Insulin Glargine [Lantus Vial] 50 unit SQ DAILY 05/15/20 02/09/21 History Pregabalin [Lyrica] 50 mg PO TID 05/15/20 02/09/21 History Rosuvastatin [Crestor] 10 mg PO HS 05/15/20 02/09/21 History Mupirocin 2% Oint [Bactroban 2% 1 applic TOPICAL DAILY 12/29/20 02/09/21 History Oint] Phenytoin Sodium Extended 30 mg PO BID 02/09/21 02/09/21 History [Dilantin] traMADol HCL 50 mg PO Q6H PRN 02/09/21 02/09/21 History Allergies Allergy/AdvReac Type Severity Reaction Status Date / Time No Known Allergies Allergy Verified 02/09/21 22:27 Surgical - Exam Vital Signs Temp Pulse Resp BP Pulse Ox 100.5 F H 142 H 16 128/71 98 02/09/21 18:45 02/09/21 18:45 02/09/21 18:45 02/09/21 18:45 02/09/21 18:45 General appearance: The patient is alert, oriented, appears in no acute distress. HET: Head is normocephalic and atraumatic. Neck: Supple without lymphadenopathy. Trachea midline. Heart: S1 S2. Regular rate and rhythm. Lungs: Clear to auscultation. Abdomen: Soft, nontender, nondistended. Extremities: Right lower extremity with infected diabetic wound to the plantar aspect of the right foot. He also was noted to have an abrasion on his lateral aspect of his right leg just above the knee as well as a small abrasion below the knee. Left lower extremity with a diabetic wound along the posterior aspect of his left leg along the achilles region. He has palpable bilateral femoral, popliteal, posterior tibialis and dorsalis pedis pulses. Neurological: No focal deficits. Strength and sensation are grossly intact. Results - Labs 02/13/21 09:14 02/13/21 09:14 Abnormal Lab Results - Last 24 Hours (Table) 02/12/21 02/12/21 02/12/21 Range/Units 11:59 17:01 20:38 D-Dimer (<0.60) mg/L FEU POC Glucose (mg/dL) 304 H 227 H 213 H (75-99) mg/dL C-Reactive Protein (<1.0) mg/dL 02/12/21 02/12/21 02/13/21 Range/Units 22:34 22:34 02:03 D-Dimer 2.01 H (<0.60) mg/L FEU POC Glucose (mg/dL) 69 L (75-99) mg/dL C-Reactive Protein 22.3 H (<1.0) mg/dL 02/13/21 02/13/21 Range/Units 03:29 07:06 D-Dimer (<0.60) mg/L FEU POC Glucose (mg/dL) 107 H 235 H (75-99) mg/dL C-Reactive Protein (<1.0) mg/dL Microbiology - Last 24 Hours (Table) 02/09/21 21:30 Blood Culture - Preliminary Blood No Growth after 72 hours 02/09/21 21:15 Blood Culture - Preliminary Blood No Growth after 72 hours - Imaging Comments: Chest CT angiogram negative for pulmonary embolism. Moderate bilateral pleural effusions with compressive atelectasis. 7 mm nodule in the right upper lobe possibly simply infectious or inflammatory in etiology. Follow-up in 6-12 months Chest x-ray right lower lobe pneumonia and right pleural effusion which is new compared to recent exam Lower extremity Venous Doppler negative for bilateral DVT Assessment and Plan Assessment: 1. Bilateral lower extremity diabetic wounds 2. Leukocytosis 3. Diabetic ketoacidosis 4. Type 1 diabetes mellitus 5. History of hypertension hyperlipidemia 6. History of chronic anemia Plan: 1. Continue his antibiotics per recommendations from infectious disease 2. Consult to wound care clinic, patient is known to them 3. Patient is scheduled for debridement of bilateral lower extremities 4. Physical therapy consult recommended, offload weight to right foot. Patient will need to be non-weight bearing on right foot. 5. Recommend postop shoe for right foot and Medi boot for left foot. Thank you for this consultation, we will continue to follow The impression and plan of care has been dictated as directed. Dr. Olson I performed a history and examination of this patient, discussed the same with the dictator. I agree with the dictator's note ,documented as a scribe. Any additional findings or plans will be noted.
--- NOTE | 2021-02-13 12:06 | P.PN ---
Subjective Progress Note Date: 02/13/21 Pietro Ryder, is a 60 year-old male came in with complaints of for redness and cellulitis of the left lower extremity patient has a callus and skin breakdown on the plantar aspect for the first metatarsal area. Patient does have leukocytosis without any fever denied any history of MRSA. Patient is also found to have some anion gap are do not have any lactic acid levels available at this time patient has some acetone in the urine can be starvation ketosis and patient was believed to have DKA patient received IV fluids patient's serum sodium was low at 129 improved with IV fluids and correction of blood glucose. Patient is still receiving IV fluids at this time. Patient appears to diabetic neuropathy and is on Lyrica. he does follow up with podiatric On 02/11/2021 patient was seen and examined on the medical floor, he is alert and oriented 3 in no apparent distress, he is feeling better, he still has bilateral lower extremity erythema and tenderness there is an open ulcer on the bottom of the right foot otherwise patient denies any complaints there is no fever or chills no headache or dizziness no chest pain no shortness of breath no cough no nausea or vomiting no abdominal pain no diarrhea and no urinary symptoms On 02/12/2021 patient was seen and examined on the medical floor, he is alert and oriented 3 he is still complaining of bilateral lower extremity erythema and tenderness there is an open ulcer on the bottom of the right foot otherwise patient denies any complaints there is no fever or chills no headache or dizziness no chest pain no shortness of breath no cough no nausea or vomiting no abdominal pain no diarrhea and no urinary symptoms. Vascular surgery consult requested. On 02/13/2021 patient's alert and oriented 3. D-dimer completed at night which was elevated at 2.01 CTA of the chest was performed showing no pulmonary embolism moderate bilateral pleural effusions with comprehensive atelectasis and 7 mm nodule in the right upper lobe possibly infectious versus inflammatory. Venous Doppler also completed showing negative for DVT. Patient remains on IV cefazolin. Vascular surgery and infectious disease services following. Will consult pulmonary services for nodule seen on CTA scan. Patient is complaining of some lower extremity tenderness. Patient denies chest pain or shortness breath. Patient denies nausea vomiting or diarrhea. Patient denies any urinary burning or frequency Objective - Vital Signs Vital signs: Vital Signs Temp 98.5 F 02/13/21 08:51 Pulse 112 H 02/13/21 08:51 Resp 18 02/13/21 08:51 BP 130/75 02/13/21 08:51 Pulse Ox 93 L 02/13/21 08:51 Intake & Output 02/12/21 02/13/21 02/13/21 18:59 06:59 18:59 Intake Total 950 Balance 950 Intake: Intake, IV Titration 950 Amount Sodium Chloride 0.9% 1, 900 000 ml @ 75 mls/hr IV . [id number] ERIN Rx#:[id number] ceFAZolin 2 gm In Sodium 50 Chloride 0.9% 50 ml @ 100 mls/hr IVPB Q8HR [facility] Rx# :[id number] - Exam In general patient is alert and oriented x 3 in no distress HEENT head normocephalic and atraumatic Neck is supple no JVD no goiter no lymphadenopathy no carotid bruit Chest examination is clear to auscultation no crackles no wheezing Cardiac exam reveals regular heart sounds S1 and S2 no gallops no murmurs Abdomen is soft nontender no organomegaly with normal bowel sounds Extremity exam reveals no edema, there is bilateral lower extremity erythema and open ulcer on the bottom of the right foot Neurological examination reveals no gross focal deficits - Labs CBC & Chem 7: 02/13/21 09:14 02/13/21 09:14 Labs: Abnormal Lab Results - Last 24 Hours (Table) 02/12/21 02/12/21 02/12/21 Range/Units 11:59 17:01 20:38 WBC (3.8-10.6) k/uL RBC (4.30-5.90) m/uL Hgb (13.0-17.5) gm/dL Hct (39.0-53.0) % MCV (80.0-100.0) fL MCH (25.0-35.0) pg MCHC (31.0-37.0) g/dL Plt Count (150-450) k/uL Neutrophils # (1.3-7.7) k/uL D-Dimer (<0.60) mg/L FEU Sodium (137-145) mmol/L Creatinine (0.66-1.25) mg/dL Glucose (74-99) mg/dL POC Glucose (mg/dL) 304 H 227 H 213 H (75-99) mg/dL Calcium (8.4-10.2) mg/dL Total Bilirubin (0.2-1.3) mg/dL C-Reactive Protein (<1.0) mg/dL Total Protein (6.3-8.2) g/dL Albumin (3.5-5.0) g/dL Procalcitonin (0.02-0.09) ng/mL 02/12/21 02/12/21 02/12/21 Range/Units 22:34 22:34 22:34 WBC (3.8-10.6) k/uL RBC (4.30-5.90) m/uL Hgb (13.0-17.5) gm/dL Hct (39.0-53.0) % MCV (80.0-100.0) fL MCH (25.0-35.0) pg MCHC (31.0-37.0) g/dL Plt Count (150-450) k/uL Neutrophils # (1.3-7.7) k/uL D-Dimer 2.01 H (<0.60) mg/L FEU Sodium (137-145) mmol/L Creatinine (0.66-1.25) mg/dL Glucose (74-99) mg/dL POC Glucose (mg/dL) (75-99) mg/dL Calcium (8.4-10.2) mg/dL Total Bilirubin (0.2-1.3) mg/dL C-Reactive Protein 22.3 H (<1.0) mg/dL Total Protein (6.3-8.2) g/dL Albumin (3.5-5.0) g/dL Procalcitonin 0.25 H (0.02-0.09) ng/mL 02/13/21 02/13/21 02/13/21 Range/Units 02:03 03:29 07:06 WBC (3.8-10.6) k/uL RBC (4.30-5.90) m/uL Hgb (13.0-17.5) gm/dL Hct (39.0-53.0) % MCV (80.0-100.0) fL MCH (25.0-35.0) pg MCHC (31.0-37.0) g/dL Plt Count (150-450) k/uL Neutrophils # (1.3-7.7) k/uL D-Dimer (<0.60) mg/L FEU Sodium (137-145) mmol/L Creatinine (0.66-1.25) mg/dL Glucose (74-99) mg/dL POC Glucose (mg/dL) 69 L 107 H 235 H (75-99) mg/dL Calcium (8.4-10.2) mg/dL Total Bilirubin (0.2-1.3) mg/dL C-Reactive Protein (<1.0) mg/dL Total Protein (6.3-8.2) g/dL Albumin (3.5-5.0) g/dL Procalcitonin (0.02-0.09) ng/mL 02/13/21 02/13/21 Range/Units 09:14 09:14 WBC 13.9 H (3.8-10.6) k/uL RBC 3.53 L (4.30-5.90) m/uL Hgb 7.5 L (13.0-17.5) gm/dL Hct 26.2 L (39.0-53.0) % MCV 74.1 L (80.0-100.0) fL MCH 21.2 L (25.0-35.0) pg MCHC 28.7 L (31.0-37.0) g/dL Plt Count 549 H (150-450) k/uL Neutrophils # 12.2 H (1.3-7.7) k/uL D-Dimer (<0.60) mg/L FEU Sodium 133 L (137-145) mmol/L Creatinine 0.60 L (0.66-1.25) mg/dL Glucose 290 H (74-99) mg/dL POC Glucose (mg/dL) (75-99) mg/dL Calcium 7.8 L (8.4-10.2) mg/dL Total Bilirubin <0.1 L (0.2-1.3) mg/dL C-Reactive Protein (<1.0) mg/dL Total Protein 5.5 L (6.3-8.2) g/dL Albumin 2.5 L (3.5-5.0) g/dL Procalcitonin (0.02-0.09) ng/mL Microbiology - Last 24 Hours (Table) 02/09/21 21:30 Blood Culture - Preliminary Blood No Growth after 72 hours 02/09/21 21:15 Blood Culture - Preliminary Blood No Growth after 72 hours Assessment and Plan Plan: Bilateral lower extremities cellulitis, with open ulcer on the bottom of the right foot Sepsis as evidenced by leukocytosis, white blood count 28.8 on presentation, blood cultures negative so far. White blood cell is trending down Acute metabolic acidosis, Hyponatremia, sodium 127 on presentation improved to 134 today Evidence of anemia hemoglobin 7.5, will check iron studies and vitamin B12 and folate level Underlying history of diabetes mellitus, poorly controlled hemoglobin A1c 14.7, patient was counseled in length in regards to taking insulin at home Underlying history of peripheral neuropathy Underlying history of seizure disorder Underlying history of gastroesophageal reflux disease Underlying history of hyperlipidemia Pulmonary nodule. Pulmonary service is consulted Elevated d-dimer. CTA negative for pulmonary embolism. Venous Doppler negative for DVT At this time patient is admitted to medical floor Patient remains on IV antibiotics Infectious disease and vascular surgery following Pulmonary service is consulted Possible debridement scheduled per vascular surgeon Repeat labs in a.m.
[2021-02-13 12:11] LABS: Glucose,Whole Blood 295 mg/dL (75-99)
[2021-02-13] MEDS: ACETAMINOPHEN TAB 325 MG TAB PO PRN (12:19)
--- NOTE | 2021-02-13 16:43 | P.CNPUL ---
History of Present Illness Consult date: 02/13/21 Reason for consult: other (Lung nodule) Chief complaint: Nonhealing foot ulcer History of present illness: This is a 60-year-old white male, admitted with bilateral lower extremity cellulitis, and nonhealing foot ulcer at the bottom aspect of the right foot with worsening cellulitis erythema and redness of the right foot. Patient came in and he had leukocytosis, he had negative blood cultures, and he was noted to have acute metabolic acidosis, hyponatremia, and chronic anemia. Patient has been seen by many consultants, and part of the workup that the patient had was a CT of the chest, his CT showed a 7 mm nodule in the right upper lobe, small bilateral pleural effusions, hence I was asked to see the patient on consultation for his right upper lobe nodule. Patient has no active no active pulmonary symptoms, CT of the chest was done mostly to rule out pulmonary embolism. Patient denies any cough no wheezing no shortness of breath, no chest pain. He does have history of seizure disorder, dyslipidemia, and history of GERD. He also has history of diabetes and peripheral neuropathy. At any rate I reviewed his CT of the chest, and considering the patient has no symptoms, my recommendation is to have a repeat CT of the chest in 6 months. And the pleural effusion itself seems to be extremely small, not even seen on the chest x-ray. Review of Systems CONSTITUTIONAL: No fever, no malaise, no fatigue. HEENT: No recent visual problems or hearing problems. Denied any sore throat. CARDIOVASCULAR: No chest pain, orthopnea, PND, no palpitations, no syncope. PULMONARY: No shortness of breath, no cough, no hemoptysis. GASTROINTESTINAL: No diarrhea, no nausea, no vomiting, no abdominal pain. NEUROLOGICAL: No headaches, no weakness, no numbness. HEMATOLOGICAL: Denies any bleeding or petechiae. GENITOURINARY: Denies any burning micturition, frequency, or urgency. MUSCULOSKELETAL/RHEUMATOLOGICAL: Denies any joint pain, swelling, or any muscle pain. ENDOCRINE: Denies any polyuria or polydipsia. Skin: As noted in HPI. Past Medical History Past Medical History: Cancer, Diabetes Mellitus, GERD/Reflux, Hyperlipidemia, Osteoarthritis (OA), Seizure Disorder Additional Past Medical History / Comment(s): IDDM type 1, wounds to upper back from scratching and L leg-seen at [facility], past L lower extremity cellulitis with sepsis, L wrist cancerous tumor removed, past seizure over 6 months ago, arthritis L knee, vertigo, occasional diarrhea, pt cannot recall why he takes lyrica. 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 Past Anesthesia/Blood Transfusion Reactions: No Reported Reaction Past Psychological History: Depression Additional Psychological History / Comment(s): Pt resides with friends. He has a glucometer. He does not drive, he usually uses bus system. He is otherwise, independent. Smoking Status: Never smoker Past Alcohol Use History: None Reported Past Drug Use History: None Reported - Past Family History Father Family Medical History: Myocardial Infarction ([place]) Additional Family Medical History / Comment(s): Father of a [place] at the age of 57yrs. Mother Family Medical History: Cancer Additional Family Medical History / Comment(s): Mother from cancer at the age of 61 or 62 . Pt cannot recall type of cancer. Sister(s) Family Medical History: Diabetes Mellitus Additional Family Medical History / Comment(s): Sister had DM type 1. She is . Medications and Allergies Home Medications Medication Instructions Recorded Confirmed Type Omeprazole 20 mg PO DAILY 06/13/17 02/09/21 History Pioglitazone HCl [Actos] 15 mg PO DAILY 10/03/18 02/09/21 History Diphenox-Atrop 2.5-0.025 mg 1 tab PO BID PRN 11/17/19 02/09/21 History [Lomotil] Triamcinolone 0.5% Cream [Kenalog 1 applic TOPICAL DAILY 01/19/20 02/09/21 History 0.5% Cream] Insulin Glargine [Lantus Vial] 50 unit SQ DAILY 05/15/20 02/09/21 History Pregabalin [Lyrica] 50 mg PO TID 05/15/20 02/09/21 History Rosuvastatin [Crestor] 10 mg PO HS 05/15/20 02/09/21 History Mupirocin 2% Oint [Bactroban 2% 1 applic TOPICAL DAILY 12/29/20 02/09/21 History Oint] Phenytoin Sodium Extended 30 mg PO BID 02/09/21 02/09/21 History [Dilantin] traMADol HCL 50 mg PO Q6H PRN 02/09/21 02/09/21 History Allergies Allergy/AdvReac Type Severity Reaction Status Date / Time No Known Allergies Allergy Verified 02/09/21 22:27 Physical Exam Vitals: Vital Signs Temp Pulse Resp BP Pulse Ox 02/13/21 08:51 98.5 F 112 H 18 130/75 93 L 02/13/21 02:00 98.0 F 93 17 132/75 98 02/12/21 19:59 101.2 F H 116 H 17 147/84 88 L Intake and Output 02/13/21 02/13/21 02/13/21 06:59 14:59 22:59 Intake Total 950 Balance 950 Intake: Intake, IV Titration 950 Amount Sodium Chloride 0.9% 1, 900 000 ml @ 75 mls/hr IV . [id number] ERIN Rx#:[id number] ceFAZolin 2 gm In Sodium 50 Chloride 0.9% 50 ml @ 100 mls/hr IVPB Q8HR ERIN Rx# :[id number] GENERAL: Revealed a 60-year-old white male in no distress. HEENT: [place], EOMI, nonicteric, no neck masses, no JVD. CARDIOVASCULAR: Normal S1 and S2 no S3 gallop, no murmur.. PULMONARY: Symmetrical chest expansion clear breath sounds bilaterally no crackles or rhonchi or wheezes ABDOMEN: Soft nontender no megaly no rebound no guarding. MUSCULOSKELETAL: Deformities and no limitation in range of motion. EXTREMITIES: No clubbing, trace of right foot edema, and evidence of redness and cellulitis over the dorsal aspect of the right foot, and there is evidence of skin breaking at the plantar aspect of the right foot. NEUROLOGICAL: Alert and oriented 3 focal deficits. SKIN: Redness and erythema of the dorsal aspect of the right foot with skin breaking down at the plantar aspect of the right foot. Left foot was not examined. Results - Laboratory Findings CBC and BMP: 02/13/21 09:14 02/13/21 09:14 PT/INR, D-dimer D-Dimer 2.01 mg/L FEU (<0.60) H 02/12/21 22:34 Abnormal lab findings: Abnormal Labs 02/09/21 02/09/21 02/09/21 21:14 21:14 23:35 WBC 28.8 H RBC 4.19 L Hgb 8.8 L Hct 28.6 L MCV 68.2 L D MCH 21.1 L MCHC RDW Plt Count 616 H Neutrophils # 26.4 H Lymphocytes # D-Dimer Sodium 127 L Chloride 90 L Creatinine Glucose 394 H POC Glucose (mg/dL) Hemoglobin A1c Calcium Iron % Saturation Total Bilirubin AST 15 L Alkaline Phosphatase 135 H C-Reactive Protein Total Protein Albumin Procalcitonin Urine Protein 1+ H Urine Glucose (UA) 4+ H Urine Ketones Trace H Urine Blood Small H Urine RBC 19 H Amorphous Sediment Rare H Hyaline Casts 5 H Urine Mucus Few H 02/10/21 02/10/21 02/10/21 02:23 07:53 08:43 WBC RBC Hgb Hct MCV MCH MCHC RDW Plt Count Neutrophils # Lymphocytes # D-Dimer Sodium 133 L Chloride Creatinine 0.59 L Glucose 286 H POC Glucose (mg/dL) 292 H 221 H Hemoglobin A1c Calcium Iron % Saturation Total Bilirubin AST Alkaline Phosphatase C-Reactive Protein Total Protein Albumin Procalcitonin Urine Protein Urine Glucose (UA) Urine Ketones Urine Blood Urine RBC Amorphous Sediment Hyaline Casts Urine Mucus 02/10/21 02/10/21 02/10/21 08:43 08:43 12:10 WBC 20.3 H RBC 4.09 L Hgb 8.7 L Hct 28.9 L MCV 70.7 L MCH 21.3 L MCHC 30.2 L RDW Plt Count 629 H Neutrophils # 18.3 H Lymphocytes # 0.9 L D-Dimer Sodium Chloride Creatinine Glucose POC Glucose (mg/dL) 193 H Hemoglobin A1c 14.9 H Calcium Iron % Saturation Total Bilirubin AST Alkaline Phosphatase C-Reactive Protein Total Protein Albumin Procalcitonin Urine Protein Urine Glucose (UA) Urine Ketones Urine Blood Urine RBC Amorphous Sediment Hyaline Casts Urine Mucus 02/10/21 02/10/21 02/11/21 17:52 20:28 02:24 WBC RBC Hgb Hct MCV MCH MCHC RDW Plt Count Neutrophils # Lymphocytes # D-Dimer Sodium Chloride Creatinine Glucose POC Glucose (mg/dL) 66 L 181 H 194 H Hemoglobin A1c Calcium Iron % Saturation Total Bilirubin AST Alkaline Phosphatase C-Reactive Protein Total Protein Albumin Procalcitonin Urine Protein Urine Glucose (UA) Urine Ketones Urine Blood Urine RBC Amorphous Sediment Hyaline Casts Urine Mucus 02/11/21 02/11/21 02/11/21 06:57 07:51 07:51 WBC 14.9 H RBC 3.55 L Hgb 7.6 L Hct 24.9 L MCV 70.4 L MCH 21.3 L MCHC 30.3 L RDW Plt Count 522 H Neutrophils # 12.6 H Lymphocytes # D-Dimer Sodium 134 L Chloride Creatinine Glucose 258 H POC Glucose (mg/dL) 252 H Hemoglobin A1c Calcium 8.2 L Iron % Saturation Total Bilirubin 0.1 L AST Alkaline Phosphatase C-Reactive Protein Total Protein 5.8 L Albumin 2.7 L Procalcitonin Urine Protein Urine Glucose (UA) Urine Ketones Urine Blood Urine RBC Amorphous Sediment Hyaline Casts Urine Mucus 02/11/21 02/11/21 02/11/21 07:51 10:02 11:44 WBC RBC Hgb Hct MCV MCH MCHC RDW Plt Count Neutrophils # Lymphocytes # D-Dimer Sodium Chloride Creatinine Glucose POC Glucose (mg/dL) 281 H 294 H Hemoglobin A1c Calcium Iron 6 L % Saturation 2.15 L Total Bilirubin AST Alkaline Phosphatase C-Reactive Protein Total Protein Albumin Procalcitonin Urine Protein Urine Glucose (UA) Urine Ketones Urine Blood Urine RBC Amorphous Sediment Hyaline Casts Urine Mucus 02/11/21 02/11/21 02/12/21 16:28 20:30 02:18 WBC RBC Hgb Hct MCV MCH MCHC RDW Plt Count Neutrophils # Lymphocytes # D-Dimer Sodium Chloride Creatinine Glucose POC Glucose (mg/dL) 271 H 232 H 67 L Hemoglobin A1c Calcium Iron % Saturation Total Bilirubin AST Alkaline Phosphatase C-Reactive Protein Total Protein Albumin Procalcitonin Urine Protein Urine Glucose (UA) Urine Ketones Urine Blood Urine RBC Amorphous Sediment Hyaline Casts Urine Mucus 02/12/21 02/12/21 02/12/21 05:07 05:07 07:34 WBC 14.7 H RBC 3.37 L Hgb 7.2 L Hct 23.6 L MCV 69.8 L MCH 21.3 L MCHC 30.5 L RDW 15.6 H Plt Count 515 H Neutrophils # 12.1 H Lymphocytes # D-Dimer Sodium 135 L Chloride Creatinine 0.62 L Glucose POC Glucose (mg/dL) 121 H Hemoglobin A1c Calcium 7.8 L Iron % Saturation Total Bilirubin <0.1 L AST Alkaline Phosphatase C-Reactive Protein Total Protein 5.7 L Albumin 2.5 L Procalcitonin Urine Protein Urine Glucose (UA) Urine Ketones Urine Blood Urine RBC Amorphous Sediment Hyaline Casts Urine Mucus 02/12/21 02/12/21 02/12/21 11:59 17:01 20:38 WBC RBC Hgb Hct MCV MCH MCHC RDW Plt Count Neutrophils # Lymphocytes # D-Dimer Sodium Chloride Creatinine Glucose POC Glucose (mg/dL) 304 H 227 H 213 H Hemoglobin A1c Calcium Iron % Saturation Total Bilirubin AST Alkaline Phosphatase C-Reactive Protein Total Protein Albumin Procalcitonin Urine Protein Urine Glucose (UA) Urine Ketones Urine Blood Urine RBC Amorphous Sediment Hyaline Casts Urine Mucus 02/12/21 02/12/21 02/12/21 22:34 22:34 22:34 WBC RBC Hgb Hct MCV MCH MCHC RDW Plt Count Neutrophils # Lymphocytes # D-Dimer 2.01 H Sodium Chloride Creatinine Glucose POC Glucose (mg/dL) Hemoglobin A1c Calcium Iron % Saturation Total Bilirubin AST Alkaline Phosphatase C-Reactive Protein 22.3 H Total Protein Albumin Procalcitonin 0.25 H Urine Protein Urine Glucose (UA) Urine Ketones Urine Blood Urine RBC Amorphous Sediment Hyaline Casts Urine Mucus 02/13/21 02/13/21 02/13/21 02:03 03:29 07:06 WBC RBC Hgb Hct MCV MCH MCHC RDW Plt Count Neutrophils # Lymphocytes # D-Dimer Sodium Chloride Creatinine Glucose POC Glucose (mg/dL) 69 L 107 H 235 H Hemoglobin A1c Calcium Iron % Saturation Total Bilirubin AST Alkaline Phosphatase C-Reactive Protein Total Protein Albumin Procalcitonin Urine Protein Urine Glucose (UA) Urine Ketones Urine Blood Urine RBC Amorphous Sediment Hyaline Casts Urine Mucus 02/13/21 02/13/21 02/13/21 09:14 09:14 12:09 WBC 13.9 H RBC 3.53 L Hgb 7.5 L Hct 26.2 L MCV 74.1 L MCH 21.2 L MCHC 28.7 L RDW Plt Count 549 H Neutrophils # 12.2 H Lymphocytes # D-Dimer Sodium 133 L Chloride Creatinine 0.60 L Glucose 290 H POC Glucose (mg/dL) 295 H Hemoglobin A1c Calcium 7.8 L Iron % Saturation Total Bilirubin <0.1 L AST Alkaline Phosphatase C-Reactive Protein Total Protein 5.5 L Albumin 2.5 L Procalcitonin Urine Protein Urine Glucose (UA) Urine Ketones Urine Blood Urine RBC Amorphous Sediment Hyaline Casts Urine Mucus - Diagnostic Findings CT scan - chest: image reviewed (As noted in HPI.) Assessment and Plan Assessment: Impression: Solitary lung nodule in a patient who is a lifetime nonsmoker likely benign, however the possibility of malignancy is not entirely ruled out, and I would recommend repeat CT of the chest in 6 months. Small bilateral pleural effusions seen on CT of the chest not seen on the chest x-ray, I will recommend an ultrasound of the right chest, and if the amount of fluid is large enough, would consider diagnostic thoracentesis. Bilateral lower extremity diabetic wounds and diabetic foot ulcers Hypovolemic hyponatremia. Diabetic peripheral neuropathy Diabetic foot ulcer Suspect underlying peripheral vessel occlusive disease involving lower extremities History of seizure disorder History of noncompliance History of GERD 3 of chronic anemia Benign essential hypertension Type 1 diabetes Leukocytosis secondary to cellulitis Recommendation: Repeat CT of the chest in 6 months Ultrasound of the chest to assess the size of the pleural effusion on the right side, and determine whether a diagnostic thoracentesis could be performed. Continue antibiotics as per infectious disease on the case. Continue GI and DVT prophylaxis. Agree with surgical evaluation and possible debridement Agree with infectious disease consultation. Will review the ultrasound of the chest tomorrow and decide whether thoracentesis could be done otherwise will recommend outpatient follow-up on this patient. Time with Patient: Greater than 30
[2021-02-13 16:58] LABS: Glucose,Whole Blood 189 mg/dL (75-99)
[2021-02-13] MEDS: ATORVASTATIN 20 MG TAB PO SCH (20:31)
[2021-02-13 20:39] LABS: Glucose,Whole Blood 99 mg/dL (75-99)
--- NOTE | 2021-02-13 22:04 | PN ---
PROGRESS NOTE DATE OF SERVICE: 02/13/2021 REASON FOR FOLLOWUP: Right diabetic foot ulcer and cellulitis. INTERVAL HISTORY: The patient did spike a fever last night. He is afebrile this morning. The patient denies having any chest pain, shortness of breath or cough. No abdominal pain or worsening pain to the right foot area. PHYSICAL EXAMINATION: Blood pressure 136/77 with a pulse of 103, temperature 98.7. He is 94% on 3 L nasal cannula. General description is a middle-aged male lying in bed in no distress. Respiratory system: Unlabored breathing. Clear to auscultation anteriorly. Heart S1, S2. Regular rate and rhythm. Abdomen soft, no tenderness. Right foot is currently dressed. No obvious drainage on the dressing. LABS: Hemoglobin 7.5, white count of 13.9, creatinine 0.60. DIAGNOSTIC IMPRESSION AND PLAN: Patient with a right diabetic foot infection with a blister that has ruptured. Vascular Surgery has seen the patient and planning for debridement. Deep culture should be obtained. Patient to continue with cefazolin. Antibiotic will be adjusted further on the basis of the culture report. Continue supportive care. MMODL / IJN: [id number] /
[2021-02-14 02:08] LABS: Glucose,Whole Blood 84 mg/dL (75-99)
[2021-02-14 06:19] LABS: Basophils % (A) 0 %; Eosinophils # (A) 0.2 k/uL (0-0.7); Eosinophils % (A) 1 %; HGB 7.4 gm/dL (13.0-17.5); Hypochromasia Marked; Lymphocytes # (A) 1.4 k/uL (1.0-4.8); Lymphocytes % (A) 13 %; MCH 21.4 pg (25.0-35.0); MCHC 29.6 g/dL (31.0-37.0); MCV 72.4 fL (80.0-100.0); Mean Platelet Volume 6.6; Microcytosis Moderate; Monocytes # (A) 0.5 k/uL (0-1.0); Monocytes % (A) 4 %; Neutrophils # (A) 8.5 k/uL (1.3-7.7); Neutrophils % (A) 80 %; Platelet Count 600 k/uL (150-450); RBC 3.45 m/uL (4.30-5.90); RDW 15.9 % (11.5-15.5); WBC 10.7 k/uL (3.8-10.6)
[2021-02-14 06:35] LABS: ALT <6 U/L (4-49); AST 16 U/L (17-59); African American GFR (CKD) >90 (>60 ml/min/1.73 sqM); Albumin 2.6 g/dL (3.5-5.0); Alkaline Phosphatase 95 U/L (38-126); Anion Gap 7 mmol/L; Blood Urea Nitrogen 10 mg/dL (9-20); Calcium 7.8 mg/dL (8.4-10.2); Carbon Dioxide 28 mmol/L (22-30); Chloride 99 mmol/L (98-107); Glucose 63 mg/dL (74-99); Non-African American GFR(CKD) >90 (>60 ml/min/1.73 sqM); Potassium 3.8 mmol/L (3.5-5.1); Sodium 134 mmol/L (137-145); Total Bilirubin <0.1 mg/dL (0.2-1.3); Total Protein 5.8 g/dL (6.3-8.2)
[2021-02-14 07:39] LABS: Glucose,Whole Blood 63 mg/dL (75-99)
[2021-02-14] MEDS ORDERED: DEXTROSE 50% SYRINGE 50 ML IVP STA (07:50)
--- NOTE | 2021-02-14 07:56 | US ---
EXAMINATION TYPE: US chest DATE OF EXAM: 02/14/2021 COMPARISON: NONE CLINICAL HISTORY: Markings for thoracentesis by pulmonary staff. TECHNIQUE: Targeted ultrasound of the posterior lower bilateral hemithoraces EXAM MEASUREMENTS: Right Pleural Effusion pocket size: 3.2 cm Right skin surface to fluid distance: 1.7 cm Left Pleural Effusion pocket size: 5.7 cm Left skin surface to fluid distance: 1.8 cm Right side marked for possible thoracentesis outside the dept. Left side marked for possible thoracentesis outside the dept. Pulmonologists are able to review the images in the patient?s EMR. IMPRESSIONS: As above
[2021-02-14] MEDS: PIOGLITAZONE 15 MG TAB PO SCH (08:00)
[2021-02-14] MEDS: PREGABALIN 50 MG CAP PO SCH ×3 (08:00→21:17)
[2021-02-14] MEDS: PANTOPRAZOLE 40 MG TABLET PO SCH (08:00)
[2021-02-14] MEDS: MUPIROCIN 2% OINT 22 GM TUBE TOPICAL SCH (08:00)
[2021-02-14] MEDS: DILANTIN 30 MG PO SCH ×2 (08:00→21:17)
[2021-02-14] MEDS: INSULIN ASPART (NovoLOG) 100 UNIT/ML VIAL SQ SCH ×4 (08:09→21:17)
[2021-02-14] MEDS: ENOXAPARIN 40 MG/0.4 ML SYRINGE SQ SCH (08:10)
[2021-02-14 08:26] LABS: Glucose,Whole Blood 138 mg/dL (75-99)
[2021-02-14] MEDS: INSULIN DETEMIR (LEVEMIR) 100 UNIT/ML SYR SQ SCH (09:02)
--- NOTE | 2021-02-14 10:32 | P.PN ---
Subjective Progress Note Date: 02/14/21 This is a 60-year-old white male, admitted with bilateral lower extremity cellulitis, and nonhealing foot ulcer at the bottom aspect of the right foot with worsening cellulitis erythema and redness of the right foot. Patient came in and he had leukocytosis, he had negative blood cultures, and he was noted to have acute metabolic acidosis, hyponatremia, and chronic anemia. Patient has been seen by many consultants, and part of the workup that the patient had was a CT of the chest, his CT showed a 7 mm nodule in the right upper lobe, small bilateral pleural effusions, hence I was asked to see the patient on consultation for his right upper lobe nodule. Patient has no active no active pulmonary symptoms, CT of the chest was done mostly to rule out pulmonary embolism. Patient denies any cough no wheezing no shortness of breath, no chest pain. He does have history of seizure disorder, dyslipidemia, and history of GERD. He also has history of diabetes and peripheral neuropathy. At any rate I reviewed his CT of the chest, and considering the patient has no symptoms, my recommendation is to have a repeat CT of the chest in 6 months. And the pleural effusion itself seems to be extremely small, not even seen on the chest x-ray. The patient is seen today 02/14/2021 in follow-up on the observation unit. He is currently resting comfortably in bed. Awake and alert in no acute distress. Maintaining O2 saturations in the 90s on room air. Temp 99.9. Ultrasound of the chest revealed a 3.2 cm pocket on the right and a 5.7 cm pocket on the left. There is some evidence of lung tissue. No plans for thoracentesis today. Blood cultures reveal no growth. White count 10.7. Hemoglobin 7.4. Sodium 134. Potassium 3.8. Chloride 99. Bicarb 28. Creatinine 0.53. Glucose 63. He remains on cefazolin. He does have diabetic foot ulcer with a non-pressure ulcer of the left lower extremity with papillary exposure, nonpressure ulcer of the right foot with muscle involvement without necrosis. The plan is for surgical debridement today. Objective - Vital Signs Vital signs: Vital Signs Temp 99.9 F H 02/14/21 08:00 Pulse 113 H 02/14/21 08:00 Resp 18 02/14/21 08:00 BP 148/83 02/14/21 08:00 Pulse Ox 93 L 02/14/21 08:00 Intake & Output 02/13/21 02/14/21 02/14/21 18:59 06:59 18:59 Intake Total 1400 Balance 1400 Intake: Intake, IV Titration 1000 Amount Sodium Chloride 0.9% 1, 900 000 ml @ 75 mls/hr IV . [id number] ERIN Rx#:[id number] ceFAZolin 2 gm In Sodium 100 Chloride 0.9% 50 ml @ 100 mls/hr IVPB Q8HR ERIN Rx# :[id number] Oral 400 Other: # Voids 3 - Exam GENERAL: Revealed a 60-year-old male on room air, in no distress. HEENT: [place], EOMI, nonicteric, no neck masses, no JVD. CARDIOVASCULAR: Normal S1 and S2 no S3 gallop, no murmur.. PULMONARY: Symmetrical chest expansion clear breath sounds bilaterally no crackles or rhonchi or wheezes ABDOMEN: Soft nontender no megaly no rebound no guarding. MUSCULOSKELETAL: Deformities and no limitation in range of motion. EXTREMITIES: No clubbing, trace of right foot edema, and evidence of redness and cellulitis over the dorsal aspect of the right foot, and there is evidence of skin breaking at the plantar aspect of the right foot. NEUROLOGICAL: Alert and oriented 3 focal deficits. SKIN: Redness and erythema of the dorsal aspect of the right foot with skin breaking down at the plantar aspect of the right foot. Left foot was not examined. - Labs CBC & Chem 7: 02/14/21 05:59 02/14/21 05:59 Labs: Abnormal Lab Results - Last 24 Hours (Table) 02/12/21 02/13/21 02/13/21 Range/Units 22:34 12:09 16:56 WBC (3.8-10.6) k/uL RBC (4.30-5.90) m/uL Hgb (13.0-17.5) gm/dL Hct (39.0-53.0) % MCV (80.0-100.0) fL MCH (25.0-35.0) pg MCHC (31.0-37.0) g/dL RDW (11.5-15.5) % Plt Count (150-450) k/uL Neutrophils # (1.3-7.7) k/uL Sodium (137-145) mmol/L Creatinine (0.66-1.25) mg/dL Glucose (74-99) mg/dL POC Glucose (mg/dL) 295 H 189 H (75-99) mg/dL Calcium (8.4-10.2) mg/dL Total Bilirubin (0.2-1.3) mg/dL AST (17-59) U/L Total Protein (6.3-8.2) g/dL Albumin (3.5-5.0) g/dL Procalcitonin 0.25 H (0.02-0.09) ng/mL 02/14/21 02/14/21 02/14/21 Range/Units 05:59 05:59 07:37 WBC 10.7 H (3.8-10.6) k/uL RBC 3.45 L (4.30-5.90) m/uL Hgb 7.4 L (13.0-17.5) gm/dL Hct 25.0 L (39.0-53.0) % MCV 72.4 L (80.0-100.0) fL MCH 21.4 L (25.0-35.0) pg MCHC 29.6 L (31.0-37.0) g/dL RDW 15.9 H (11.5-15.5) % Plt Count 600 H (150-450) k/uL Neutrophils # 8.5 H (1.3-7.7) k/uL Sodium 134 L (137-145) mmol/L Creatinine 0.53 L (0.66-1.25) mg/dL Glucose 63 L (74-99) mg/dL POC Glucose (mg/dL) 63 L (75-99) mg/dL Calcium 7.8 L (8.4-10.2) mg/dL Total Bilirubin <0.1 L (0.2-1.3) mg/dL AST 16 L (17-59) U/L Total Protein 5.8 L (6.3-8.2) g/dL Albumin 2.6 L (3.5-5.0) g/dL Procalcitonin (0.02-0.09) ng/mL 02/14/21 Range/Units 08:24 WBC (3.8-10.6) k/uL RBC (4.30-5.90) m/uL Hgb (13.0-17.5) gm/dL Hct (39.0-53.0) % MCV (80.0-100.0) fL MCH (25.0-35.0) pg MCHC (31.0-37.0) g/dL RDW (11.5-15.5) % Plt Count (150-450) k/uL Neutrophils # (1.3-7.7) k/uL Sodium (137-145) mmol/L Creatinine (0.66-1.25) mg/dL Glucose (74-99) mg/dL POC Glucose (mg/dL) 138 H (75-99) mg/dL Calcium (8.4-10.2) mg/dL Total Bilirubin (0.2-1.3) mg/dL AST (17-59) U/L Total Protein (6.3-8.2) g/dL Albumin (3.5-5.0) g/dL Procalcitonin (0.02-0.09) ng/mL Microbiology - Last 24 Hours (Table) 02/12/21 22:34 Blood Culture - Preliminary Blood No Growth after 24 hours 02/09/21 21:15 Blood Culture - Preliminary Blood No Growth after 96 hours 02/09/21 21:30 Blood Culture - Preliminary Blood No Growth after 96 hours Assessment and Plan Assessment: 1 Solitary lung nodule in a patient who is a lifetime nonsmoker likely benign, however the possibility of malignancy is not entirely ruled out, and I would recommend repeat CT of the chest in 6 months. 2 Small bilateral pleural effusions seen on CT of the chest not seen on the chest x-ray, ultrasound of the chest reveals minimal effusions, no plans for thoracentesis. 3 Bilateral lower extremity diabetic wounds and diabetic foot ulcers, plan is for surgical debridement today 4 Hypovolemic hyponatremia. 5 Diabetic peripheral neuropathy 6 Diabetic foot ulcer 7 Suspect underlying peripheral vessel occlusive disease involving lower extremities 8 History of seizure disorder 9 History of noncompliance 10 History of GERD 11 Chronic anemia 12 Benign essential hypertension 13 Type 1 diabetes 14 Leukocytosis secondary to cellulitis Plan: The patient was seen and evaluated today Ultrasound reviewed, no plans for thoracentesis The plan is for outpatient follow-up regarding the pulmonary nodule Stable and on room air I, the cosigning physician, performed a history & physical examination of the patient. Lungs sounds are clear. Maintaining good O2 saturations in the 90s on room air. I discussed the assessment and plan of care with my nurse practitioner, Kalyani Coker. I attest to the above note as dictated by her.
[2021-02-14 11:11] LABS: Glucose,Whole Blood 114 mg/dL (75-99)
[2021-02-14] MEDS ORDERED: IV FLUID CONTINUATION 400 ML IV ONE (13:40)
[2021-02-14 13:47] LABS: Glucose,Whole Blood 134 mg/dL (75-99)
[2021-02-14] MEDS ORDERED: PROPOFOL 10 MG/ML 20 ML VIAL IV ONE (15:14)
[2021-02-14] MEDS ORDERED: KETAMINE 10 MG/ML 20 ML VIAL ONE (15:14)
[2021-02-14] MEDS ORDERED: MIDAZOLAM 2 MG/2 ML VIAL ONE (15:14)
[2021-02-14] MEDS ORDERED: fentaNYL (PF) 50 MCG/ML 2 ML AMP ONE (15:14)
--- NOTE | 2021-02-14 16:12 | P.OP ---
Date of Procedure: 02/14/21 Description of Procedure: Preoperative diagnosis: Bilateral lower extremity wounds Postoperative diagnosis: Same Procedure: [Sharp excisional debridement left lower extremity 9 x 0.7 x 0.3 cm to subcutaneous tissue Sharp excisional debridement right foot 7 x 4 x 0.4 cm to tendon Wound VAC application] Surgeon: Concepción Olson D.O. EBL: [10 mL] IV fluids: [See records] Urine output: [Not measured] Drains: [None] Complications: [None immediately apparent] Condition: [Stable to recovery] Operative indication and findings: [Patient is a 6-year-old male with bilateral lower extremity wounds. The right lower extremity wound is fluctuant and therefore is recommended to undergo debridement at the time was plan to debride the both legs. Risks and benefits were discussed. He seemingly understands and is willing to proceed.] Procedure in detail: [Patient is a Suite and placed in supine position. Abel ateral lower extremity was reprepped and draped in usual sterile fashion. A preprocedure timeout was performed, all parties were in agreement. Starting with the left lower extremity, the wound was sharply debrided with a curet. It appeared to be relatively healthy and debrided down to good appearing granulation tissue. There is no purulent drainage or tracking and this wound. The measurements are as above. Attention was then turned towards the right foot, the area of greatest fluctuance was incised and using a scalpel the overlying necrotic appearing tissue was excised. The wound itself was then probed and found to have fair tunneling therefore was unroofed. The remainder of the foot attempts were made to express any purulent drainage. There was some and therefore a culture was obtained. Once was no more purulent drainage the wound was irrigated and a wound VAC was placed. The patient tolerated the procedure well and was transferred to recovery in stable condition]
[2021-02-14 16:25] LABS: Glucose,Whole Blood 156 mg/dL (75-99)
[2021-02-14 17:13] LABS: Glucose,Whole Blood 166 mg/dL (75-99)
--- NOTE | 2021-02-14 17:44 | P.PN ---
Subjective Progress Note Date: 02/14/21 Pietro Ryder, is a 60 year-old male came in with complaints of for redness and cellulitis of the left lower extremity patient has a callus and skin breakdown on the plantar aspect for the first metatarsal area. Patient does have leukocytosis without any fever denied any history of MRSA. Patient is also found to have some anion gap are do not have any lactic acid levels available at this time patient has some acetone in the urine can be starvation ketosis and patient was believed to have DKA patient received IV fluids patient's serum sodium was low at 129 improved with IV fluids and correction of blood glucose. Patient is still receiving IV fluids at this time. Patient appears to diabetic neuropathy and is on Lyrica. he does follow up with podiatric On 02/11/2021 patient was seen and examined on the medical floor, he is alert and oriented 3 in no apparent distress, he is feeling better, he still has bilateral lower extremity erythema and tenderness there is an open ulcer on the bottom of the right foot otherwise patient denies any complaints there is no fever or chills no headache or dizziness no chest pain no shortness of breath no cough no nausea or vomiting no abdominal pain no diarrhea and no urinary symptoms On 02/12/2021 patient was seen and examined on the medical floor, he is alert and oriented 3 he is still complaining of bilateral lower extremity erythema and tenderness there is an open ulcer on the bottom of the right foot otherwise patient denies any complaints there is no fever or chills no headache or dizziness no chest pain no shortness of breath no cough no nausea or vomiting no abdominal pain no diarrhea and no urinary symptoms. Vascular surgery consult requested. On 02/13/2021 patient's alert and oriented 3. D-dimer completed at night which was elevated at 2.01 CTA of the chest was performed showing no pulmonary embolism moderate bilateral pleural effusions with comprehensive atelectasis and 7 mm nodule in the right upper lobe possibly infectious versus inflammatory. Venous Doppler also completed showing negative for DVT. Patient remains on IV cefazolin. Vascular surgery and infectious disease services following. Will consult pulmonary services for nodule seen on CTA scan. Patient is complaining of some lower extremity tenderness. Patient denies chest pain or shortness breath. Patient denies nausea vomiting or diarrhea. Patient denies any urinary burning or frequency On 02/14/2021 patient was seen and examined on the medical floor, he is alert and oriented 3 he is still complaining of bilateral lower extremity erythema and tenderness there is an open ulcer on the bottom of the right foot otherwise patient denies any complaints there is no fever or chills no headache or dizziness no chest pain no shortness of breath no cough no nausea or vomiting no abdominal pain no diarrhea and no urinary symptoms. Vascular surgery consult following, patient scheduled for wound debridement today. Objective - Vital Signs Vital signs: Vital Signs Temp 99.8 F H 02/14/21 13:45 Pulse 105 H 02/14/21 13:45 Resp 16 02/14/21 13:45 BP 154/81 02/14/21 13:45 Pulse Ox 97 02/14/21 13:45 Intake & Output 02/13/21 02/14/21 02/14/21 18:59 06:59 18:59 Intake Total 1400 Balance 1400 Weight 45.813 kg Intake: Intake, IV Titration 1000 Amount Sodium Chloride 0.9% 1, 900 000 ml @ 75 mls/hr IV . [id number] ERIN Rx#:[id number] ceFAZolin 2 gm In Sodium 100 Chloride 0.9% 50 ml @ 100 mls/hr IVPB Q8HR ERIN Rx# :[id number] Oral 400 Other: # Voids 3 - Exam In general patient is alert and oriented x 3 in no distress HEENT head normocephalic and atraumatic Neck is supple no JVD no goiter no lymphadenopathy no carotid bruit Chest examination is clear to auscultation no crackles no wheezing Cardiac exam reveals regular heart sounds S1 and S2 no gallops no murmurs Abdomen is soft nontender no organomegaly with normal bowel sounds Extremity exam reveals no edema, there is bilateral lower extremity erythema and open ulcer on the bottom of the right foot Neurological examination reveals no gross focal deficits - Labs CBC & Chem 7: 02/14/21 05:59 02/14/21 05:59 Labs: Abnormal Lab Results - Last 24 Hours (Table) 02/13/21 02/14/21 02/14/21 Range/Units 16:56 05:59 05:59 WBC 10.7 H (3.8-10.6) k/uL RBC 3.45 L (4.30-5.90) m/uL Hgb 7.4 L (13.0-17.5) gm/dL Hct 25.0 L (39.0-53.0) % MCV 72.4 L (80.0-100.0) fL MCH 21.4 L (25.0-35.0) pg MCHC 29.6 L (31.0-37.0) g/dL RDW 15.9 H (11.5-15.5) % Plt Count 600 H (150-450) k/uL Neutrophils # 8.5 H (1.3-7.7) k/uL Sodium 134 L (137-145) mmol/L Creatinine 0.53 L (0.66-1.25) mg/dL Glucose 63 L (74-99) mg/dL POC Glucose (mg/dL) 189 H (75-99) mg/dL Calcium 7.8 L (8.4-10.2) mg/dL Total Bilirubin <0.1 L (0.2-1.3) mg/dL AST 16 L (17-59) U/L Total Protein 5.8 L (6.3-8.2) g/dL Albumin 2.6 L (3.5-5.0) g/dL 02/14/21 02/14/21 02/14/21 Range/Units 07:37 08:24 11:09 WBC (3.8-10.6) k/uL RBC (4.30-5.90) m/uL Hgb (13.0-17.5) gm/dL Hct (39.0-53.0) % MCV (80.0-100.0) fL MCH (25.0-35.0) pg MCHC (31.0-37.0) g/dL RDW (11.5-15.5) % Plt Count (150-450) k/uL Neutrophils # (1.3-7.7) k/uL Sodium (137-145) mmol/L Creatinine (0.66-1.25) mg/dL Glucose (74-99) mg/dL POC Glucose (mg/dL) 63 L 138 H 114 H (75-99) mg/dL Calcium (8.4-10.2) mg/dL Total Bilirubin (0.2-1.3) mg/dL AST (17-59) U/L Total Protein (6.3-8.2) g/dL Albumin (3.5-5.0) g/dL 02/14/21 Range/Units 13:45 WBC (3.8-10.6) k/uL RBC (4.30-5.90) m/uL Hgb (13.0-17.5) gm/dL Hct (39.0-53.0) % MCV (80.0-100.0) fL MCH (25.0-35.0) pg MCHC (31.0-37.0) g/dL RDW (11.5-15.5) % Plt Count (150-450) k/uL Neutrophils # (1.3-7.7) k/uL Sodium (137-145) mmol/L Creatinine (0.66-1.25) mg/dL Glucose (74-99) mg/dL POC Glucose (mg/dL) 134 H (75-99) mg/dL Calcium (8.4-10.2) mg/dL Total Bilirubin (0.2-1.3) mg/dL AST (17-59) U/L Total Protein (6.3-8.2) g/dL Albumin (3.5-5.0) g/dL Microbiology - Last 24 Hours (Table) 02/12/21 22:34 Blood Culture - Preliminary Blood No Growth after 24 hours 02/09/21 21:15 Blood Culture - Preliminary Blood No Growth after 96 hours 02/09/21 21:30 Blood Culture - Preliminary Blood No Growth after 96 hours Assessment and Plan Plan: Bilateral lower extremities cellulitis, with open ulcer on the bottom of the right foot Sepsis as evidenced by leukocytosis, white blood count 28.8 on presentation, blood cultures negative so far. White blood cell is trending down Acute metabolic acidosis, Hyponatremia, sodium 127 on presentation improved to 134 today Evidence of anemia hemoglobin 7.5, will check iron studies and vitamin B12 and folate level Underlying history of diabetes mellitus, poorly controlled hemoglobin A1c 14.7, patient was counseled in length in regards to taking insulin at home Underlying history of peripheral neuropathy Underlying history of seizure disorder Underlying history of gastroesophageal reflux disease Underlying history of hyperlipidemia Pulmonary nodule. Pulmonary service is consulted Elevated d-dimer. CTA negative for pulmonary embolism. Venous Doppler negative for DVT At this time patient is admitted to medical floor Patient remains on IV antibiotics Infectious disease and vascular surgery following Pulmonary service is consulted Possible debridement scheduled per vascular surgeon Repeat labs in a.m.
[2021-02-14 20:53] LABS: Glucose,Whole Blood 261 mg/dL (75-99)
[2021-02-14] MEDS: ATORVASTATIN 20 MG TAB PO SCH (21:17)
[2021-02-15] MEDS: SODIUM CHLORIDE 0.9% 1,000 ML IV SCH ×3 (00:17→17:55)
--- NOTE | 2021-02-15 00:49 | PN ---
PROGRESS NOTE DATE OF SERVICE: 02/14/2021 REASON FOR FOLLOW UP: Bilateral lower extremity wound cellulitis. INTERVAL HISTORY: The patient was taken to the OR. The patient is status post debridement of his left lower extremity wound to subcutaneous tissue and right foot wound ( ). The patient has tolerated the procedure. Pain is controlled. Culture has been obtained. Denies any chest pain, shortness of breath or cough. No abdominal pain, no diarrhea. PHYSICAL EXAMINATION: Blood pressure 147/78 with a pulse of 110, temperature 98.3. He is 95% on 3 L nasal cannula. General description is a middle-aged male lying in bed in no distress. Respiratory system: Unlabored breathing, clear to auscultation anteriorly. Heart S1, S2. Regular rate and rhythm. Abdomen soft, no tenderness. Wounds are currently dressed. No obvious drainage on the dressing. LABS: Blood culture negative. Wound culture pending. DIAGNOSTIC IMPRESSION AND PLAN: This patient admitted to the hospital with a right diabetic foot wound infection and abscess status post debridement. Those cultures will be followed. The patient will be on cefazolin on discharge antibiotic based on culture report. Continue supportive care. MMODL / IJN: [id number] /
[2021-02-15 02:17] LABS: Glucose,Whole Blood 285 mg/dL (75-99)
[2021-02-15 06:18] LABS: Anisocytosis Slight; Basophils % (A) 0 %; Eosinophils # (A) 0.1 k/uL (0-0.7); Eosinophils % (A) 1 %; HCT 24.3 % (39.0-53.0); HGB 7.2 gm/dL (13.0-17.5); Hypochromasia Marked; Lymphocytes # (A) 1.5 k/uL (1.0-4.8); Lymphocytes % (A) 15 %; MCH 21.9 pg (25.0-35.0); MCHC 29.7 g/dL (31.0-37.0); MCV 73.6 fL (80.0-100.0); Mean Platelet Volume 6.4; Microcytosis Slight; Monocytes # (A) 0.4 k/uL (0-1.0); Monocytes % (A) 4 %; Neutrophils # (A) 7.9 k/uL (1.3-7.7); Neutrophils % (A) 77 %; Platelet Count 595 k/uL (150-450); RBC 3.31 m/uL (4.30-5.90); RDW 16.2 % (11.5-15.5); WBC 10.2 k/uL (3.8-10.6)
[2021-02-15 06:27] LABS: ALT <6 U/L (4-49); AST 16 U/L (17-59); African American GFR (CKD) >90 (>60 ml/min/1.73 sqM); Albumin 2.4 g/dL (3.5-5.0); Alkaline Phosphatase 98 U/L (38-126); Anion Gap 4 mmol/L; Blood Urea Nitrogen 11 mg/dL (9-20); Calcium 7.7 mg/dL (8.4-10.2); Carbon Dioxide 32 mmol/L (22-30); Chloride 97 mmol/L (98-107); Glucose 292 mg/dL (74-99); Non-African American GFR(CKD) >90 (>60 ml/min/1.73 sqM); Potassium 4.5 mmol/L (3.5-5.1); Sodium 133 mmol/L (137-145); Total Bilirubin 0.2 mg/dL (0.2-1.3); Total Protein 5.5 g/dL (6.3-8.2)
[2021-02-15 07:32] LABS: Glucose,Whole Blood 314 mg/dL (75-99)
[2021-02-15] MEDS: INSULIN ASPART (NovoLOG) 100 UNIT/ML VIAL SQ SCH ×4 (08:51→20:53)
[2021-02-15] MEDS: INSULIN DETEMIR (LEVEMIR) 100 UNIT/ML SYR SQ SCH (08:51)
[2021-02-15] MEDS: DILANTIN 30 MG PO SCH ×2 (08:51→20:52)
[2021-02-15] MEDS: ENOXAPARIN 40 MG/0.4 ML SYRINGE SQ SCH (08:51)
[2021-02-15] MEDS: PANTOPRAZOLE 40 MG TABLET PO SCH (08:52)
[2021-02-15] MEDS: PREGABALIN 50 MG CAP PO SCH ×3 (08:52→20:51)
[2021-02-15] MEDS: PIOGLITAZONE 15 MG TAB PO SCH (08:52)
[2021-02-15] MEDS: MUPIROCIN 2% OINT 22 GM TUBE TOPICAL SCH (08:52)
--- NOTE | 2021-02-15 10:19 | P.PN ---
Subjective Progress Note Date: 02/15/21 Pietro Ryder, is a 60 year-old male came in with complaints of for redness and cellulitis of the left lower extremity patient has a callus and skin breakdown on the plantar aspect for the first metatarsal area. Patient does have leukocytosis without any fever denied any history of MRSA. Patient is also found to have some anion gap are do not have any lactic acid levels available at this time patient has some acetone in the urine can be starvation ketosis and patient was believed to have DKA patient received IV fluids patient's serum sodium was low at 129 improved with IV fluids and correction of blood glucose. Patient is still receiving IV fluids at this time. Patient appears to diabetic neuropathy and is on Lyrica. he does follow up with podiatric On 02/11/2021 patient was seen and examined on the medical floor, he is alert and oriented 3 in no apparent distress, he is feeling better, he still has bilateral lower extremity erythema and tenderness there is an open ulcer on the bottom of the right foot otherwise patient denies any complaints there is no fever or chills no headache or dizziness no chest pain no shortness of breath no cough no nausea or vomiting no abdominal pain no diarrhea and no urinary symptoms On 02/12/2021 patient was seen and examined on the medical floor, he is alert and oriented 3 he is still complaining of bilateral lower extremity erythema and tenderness there is an open ulcer on the bottom of the right foot otherwise patient denies any complaints there is no fever or chills no headache or dizziness no chest pain no shortness of breath no cough no nausea or vomiting no abdominal pain no diarrhea and no urinary symptoms. Vascular surgery consult requested. On 02/13/2021 patient's alert and oriented 3. D-dimer completed at night which was elevated at 2.01 CTA of the chest was performed showing no pulmonary embolism moderate bilateral pleural effusions with comprehensive atelectasis and 7 mm nodule in the right upper lobe possibly infectious versus inflammatory. Venous Doppler also completed showing negative for DVT. Patient remains on IV cefazolin. Vascular surgery and infectious disease services following. Will consult pulmonary services for nodule seen on CTA scan. Patient is complaining of some lower extremity tenderness. Patient denies chest pain or shortness breath. Patient denies nausea vomiting or diarrhea. Patient denies any urinary burning or frequency On 02/14/2021 patient was seen and examined on the medical floor, he is alert and oriented 3 he is still complaining of bilateral lower extremity erythema and tenderness there is an open ulcer on the bottom of the right foot otherwise patient denies any complaints there is no fever or chills no headache or dizziness no chest pain no shortness of breath no cough no nausea or vomiting no abdominal pain no diarrhea and no urinary symptoms. Vascular surgery consult following, patient scheduled for wound debridement today. On 02/15/2021 patient's alert and oriented 3. Patient is status post debridement with wound VAC placement per Dr. Olson. Patient is currently resting comfortably in bed. Patient remains on IV antibiotics. Globin low at 7.2 we'll order dose of IV iron and folate and B12 levels. Patient denies chest pain or shortness breath. Patient denies nausea vomiting or diarrhea. Patient denies any urinary burning or frequency Objective - Vital Signs Vital signs: Vital Signs Temp 97.9 F 02/15/21 08:17 Pulse 110 H 02/15/21 08:17 Resp 14 02/15/21 08:17 BP 124/74 02/15/21 08:17 Pulse Ox 93 L 02/15/21 08:17 Intake & Output 02/14/21 02/15/21 02/15/21 18:59 06:59 18:59 Intake Total 388 Output Total 805 Balance -417 Weight 45.813 kg Intake: IV 270 Oral 118 Output: Urine 800 Estimated Blood Loss 5 Other: Voiding Method Toilet Urinal # Voids 2 3 - Exam In general patient is alert and oriented x 3 in no distress HEENT head normocephalic and atraumatic Neck is supple no JVD no goiter no lymphadenopathy no carotid bruit Chest examination is clear to auscultation no crackles no wheezing Cardiac exam reveals regular heart sounds S1 and S2 no gallops no murmurs Abdomen is soft nontender no organomegaly with normal bowel sounds Extremity exam reveals no edema, there is bilateral lower extremity erythema and open ulcer on the bottom of the right foot Neurological examination reveals no gross focal deficits - Labs CBC & Chem 7: 02/15/21 05:52 02/15/21 05:52 Labs: Abnormal Lab Results - Last 24 Hours (Table) 02/14/21 02/14/21 02/14/21 Range/Units 11:09 13:45 16:23 RBC (4.30-5.90) m/uL Hgb (13.0-17.5) gm/dL Hct (39.0-53.0) % MCV (80.0-100.0) fL MCH (25.0-35.0) pg MCHC (31.0-37.0) g/dL RDW (11.5-15.5) % Plt Count (150-450) k/uL Neutrophils # (1.3-7.7) k/uL Sodium (137-145) mmol/L Chloride (98-107) mmol/L Carbon Dioxide (22-30) mmol/L Creatinine (0.66-1.25) mg/dL Glucose (74-99) mg/dL POC Glucose (mg/dL) 114 H 134 H 156 H (75-99) mg/dL Calcium (8.4-10.2) mg/dL AST (17-59) U/L Total Protein (6.3-8.2) g/dL Albumin (3.5-5.0) g/dL 02/14/21 02/14/21 02/15/21 Range/Units 17:12 20:51 02:16 RBC (4.30-5.90) m/uL Hgb (13.0-17.5) gm/dL Hct (39.0-53.0) % MCV (80.0-100.0) fL MCH (25.0-35.0) pg MCHC (31.0-37.0) g/dL RDW (11.5-15.5) % Plt Count (150-450) k/uL Neutrophils # (1.3-7.7) k/uL Sodium (137-145) mmol/L Chloride (98-107) mmol/L Carbon Dioxide (22-30) mmol/L Creatinine (0.66-1.25) mg/dL Glucose (74-99) mg/dL POC Glucose (mg/dL) 166 H 261 H 285 H (75-99) mg/dL Calcium (8.4-10.2) mg/dL AST (17-59) U/L Total Protein (6.3-8.2) g/dL Albumin (3.5-5.0) g/dL 02/15/21 02/15/21 02/15/21 Range/Units 05:52 05:52 07:30 RBC 3.31 L (4.30-5.90) m/uL Hgb 7.2 L (13.0-17.5) gm/dL Hct 24.3 L (39.0-53.0) % MCV 73.6 L (80.0-100.0) fL MCH 21.9 L (25.0-35.0) pg MCHC 29.7 L (31.0-37.0) g/dL RDW 16.2 H (11.5-15.5) % Plt Count 595 H (150-450) k/uL Neutrophils # 7.9 H (1.3-7.7) k/uL Sodium 133 L (137-145) mmol/L Chloride 97 L (98-107) mmol/L Carbon Dioxide 32 H (22-30) mmol/L Creatinine 0.63 L (0.66-1.25) mg/dL Glucose 292 H (74-99) mg/dL POC Glucose (mg/dL) 314 H (75-99) mg/dL Calcium 7.7 L (8.4-10.2) mg/dL AST 16 L (17-59) U/L Total Protein 5.5 L (6.3-8.2) g/dL Albumin 2.4 L (3.5-5.0) g/dL Microbiology - Last 24 Hours (Table) 02/14/21 15:45 Gram Stain - Preliminary Foot - Right Wound Culture - Preliminary 02/12/21 22:34 Blood Culture - Preliminary Blood No Growth after 48 hours 02/09/21 21:30 Blood Culture - Preliminary Blood No Growth after 120 hours 02/09/21 21:15 Blood Culture - Preliminary Blood No Growth after 120 hours 02/14/21 15:45 Anaerobic Culture - Preliminary Foot - Right Assessment and Plan Plan: Bilateral lower extremities cellulitis, with open ulcer on the bottom of the right foot. Status post debridement Sepsis as evidenced by leukocytosis, white blood count 28.8 on presentation, blood cultures negative so far. White blood cell is trending down Acute metabolic acidosis, Hyponatremia, sodium 127 on presentation improved to 134 today Evidence of anemia hemoglobin 7.5, will check iron studies and vitamin B12 and folate level. 1 dose of IV iron will be ordered Underlying history of diabetes mellitus, poorly controlled hemoglobin A1c 14.7, patient was counseled in length in regards to taking insulin at home Underlying history of peripheral neuropathy Underlying history of seizure disorder Underlying history of gastroesophageal reflux disease Underlying history of hyperlipidemia Pulmonary nodule. Pulmonary service is consulted Elevated d-dimer. CTA negative for pulmonary embolism. Venous Doppler negative for DVT At this time patient is admitted to medical floor Patient remains on IV antibiotics Infectious disease and vascular surgery following Pulmonary service is consulted Status post debridement on 02/14/2021 Social work following for discharge planning patient will likely occur ECF placement Repeat labs in a.m.
[2021-02-15] MEDS ORDERED: SODIUM FERRIC GLUCONAT-SUCROSE 125 MG in SODIUM CHLORIDE 0.9% 100 ML IVPB ONE (11:00)
--- NOTE | 2021-02-15 11:14 | P.PN ---
Subjective Progress Note Date: 02/15/21 This is a 60-year-old male who presented with concerns for infection with bilateral lower extremity wounds. He is status postop day #1 for sharp excisional debridement of the left lower extremity and right foot with wound VAC application. Patient denies any pain. He had a low-grade temp of 99.7 through the night. Leukocytosis improving. Objective - Vital Signs Vital signs: Vital Signs Temp 97.9 F 02/15/21 08:17 Pulse 110 H 02/15/21 08:17 Resp 14 02/15/21 08:17 BP 124/74 02/15/21 08:17 Pulse Ox 93 L 02/15/21 08:17 Intake & Output 02/14/21 02/15/21 02/15/21 18:59 06:59 18:59 Intake Total 388 Output Total 805 Balance -417 Weight 45.813 kg Intake: IV 270 Oral 118 Output: Urine 800 Estimated Blood Loss 5 Other: Voiding Method Toilet Urinal # Voids 2 3 - Exam General appearance: The patient is alert, oriented, appears in no acute distress. HET: Head is normocephalic and atraumatic. Neck: Supple without lymphadenopathy. Trachea midline. Extremities: Bilateral palpable femoral, popliteal, PT and DP pulses. Wound VAC in place with good suction to the right foot. Dressing clean dry and intact to the left foot. Neurological: No focal deficits. Strength and sensation are grossly intact. - Labs CBC & Chem 7: 02/15/21 05:52 02/15/21 05:52 Labs: Abnormal Lab Results - Last 24 Hours (Table) 02/14/21 02/14/21 02/14/21 Range/Units 11:09 13:45 16:23 RBC (4.30-5.90) m/uL Hgb (13.0-17.5) gm/dL Hct (39.0-53.0) % MCV (80.0-100.0) fL MCH (25.0-35.0) pg MCHC (31.0-37.0) g/dL RDW (11.5-15.5) % Plt Count (150-450) k/uL Neutrophils # (1.3-7.7) k/uL Sodium (137-145) mmol/L Chloride (98-107) mmol/L Carbon Dioxide (22-30) mmol/L Creatinine (0.66-1.25) mg/dL Glucose (74-99) mg/dL POC Glucose (mg/dL) 114 H 134 H 156 H (75-99) mg/dL Calcium (8.4-10.2) mg/dL AST (17-59) U/L Total Protein (6.3-8.2) g/dL Albumin (3.5-5.0) g/dL 02/14/21 02/14/21 02/15/21 Range/Units 17:12 20:51 02:16 RBC (4.30-5.90) m/uL Hgb (13.0-17.5) gm/dL Hct (39.0-53.0) % MCV (80.0-100.0) fL MCH (25.0-35.0) pg MCHC (31.0-37.0) g/dL RDW (11.5-15.5) % Plt Count (150-450) k/uL Neutrophils # (1.3-7.7) k/uL Sodium (137-145) mmol/L Chloride (98-107) mmol/L Carbon Dioxide (22-30) mmol/L Creatinine (0.66-1.25) mg/dL Glucose (74-99) mg/dL POC Glucose (mg/dL) 166 H 261 H 285 H (75-99) mg/dL Calcium (8.4-10.2) mg/dL AST (17-59) U/L Total Protein (6.3-8.2) g/dL Albumin (3.5-5.0) g/dL 02/15/21 02/15/21 02/15/21 Range/Units 05:52 05:52 07:30 RBC 3.31 L (4.30-5.90) m/uL Hgb 7.2 L (13.0-17.5) gm/dL Hct 24.3 L (39.0-53.0) % MCV 73.6 L (80.0-100.0) fL MCH 21.9 L (25.0-35.0) pg MCHC 29.7 L (31.0-37.0) g/dL RDW 16.2 H (11.5-15.5) % Plt Count 595 H (150-450) k/uL Neutrophils # 7.9 H (1.3-7.7) k/uL Sodium 133 L (137-145) mmol/L Chloride 97 L (98-107) mmol/L Carbon Dioxide 32 H (22-30) mmol/L Creatinine 0.63 L (0.66-1.25) mg/dL Glucose 292 H (74-99) mg/dL POC Glucose (mg/dL) 314 H (75-99) mg/dL Calcium 7.7 L (8.4-10.2) mg/dL AST 16 L (17-59) U/L Total Protein 5.5 L (6.3-8.2) g/dL Albumin 2.4 L (3.5-5.0) g/dL Microbiology - Last 24 Hours (Table) 02/14/21 15:45 Gram Stain - Preliminary Foot - Right Wound Culture - Preliminary 02/12/21 22:34 Blood Culture - Preliminary Blood No Growth after 48 hours 02/09/21 21:30 Blood Culture - Preliminary Blood No Growth after 120 hours 02/09/21 21:15 Blood Culture - Preliminary Blood No Growth after 120 hours 02/14/21 15:45 Anaerobic Culture - Preliminary Foot - Right Assessment and Plan Assessment: 1. Status post sharp excisional debridement left lower extremity and right lowe r extremity with wound vac placement 2. Bilateral lower extremity diabetic wounds 3. Leukocytosis 4. Diabetic ketoacidosis 5. Type 1 diabetes mellitus 6. History of hypertension hyperlipidemia 7. History of chronic anemia Plan: 1. Continue his antibiotics per recommendations from infectious disease 2. Consult to wound care clinic, patient is known to them 3. Continue wound VAC to right foot, change every 3 days 4. Physical therapy consult recommended, offload weight to right foot. Patient will need to be non-weight bearing on right foot. 5. Recommend postop shoe for right foot and Medi boot for left foot. 6. Continue with the dressing changes to left lower extremity as ordered per wound clinic Thank you for this consultation, patient is cleared for discharge from a vascular surgical standpoint. We will sign off at this time The impression and plan of care has been dictated as directed. Dr. Olson I performed a history and examination of this patient, discussed the same with the dictator. I agree with the dictator's note ,documented as a scribe. Any additional findings or plans will be noted.
[2021-02-15 11:39] LABS: Glucose,Whole Blood 345 mg/dL (75-99)
[2021-02-15 16:36] LABS: Glucose,Whole Blood 188 mg/dL (75-99)
[2021-02-15 20:24] LABS: Glucose,Whole Blood 147 mg/dL (75-99)
[2021-02-15] MEDS: ATORVASTATIN 20 MG TAB PO SCH (20:51)
[2021-02-15] MEDS: DIPHENOX-ATROP 2.5-0.025 MG 1 EACH TAB PO PRN (23:41)
--- NOTE | 2021-02-15 23:53 | PN ---
PROGRESS NOTE DATE OF SERVICE: 02/15/2021 REASON FOR FOLLOWUP: Right diabetic foot abscess and cellulitis. INTERVAL HISTORY: The patient is afebrile. The patient is currently breathing comfortably. Denies any chest pain, shortness of breath or cough. No abdominal pain or any worsening pain in the right foot area. PHYSICAL EXAMINATION: Blood pressure is 140/77, temperature 98.5, he is 97% on room air. GENERAL DESCRIPTION: Pain is a middle-aged male lying in bed in no distress. Respiratory: Breathing clear to auscultation anteriorly. Heart S1, S2. Regular abdomen right foot is currently dressed. No obvious drainage on the dressing. LABS: Hemoglobin 10.1, white count 10.2, creatinine 0.63. Cultures currently pending. DIAGNOSTIC IMPRESSION AND PLAN: Patient with right diabetic foot ulcer. Abdominal abscess status post drainage. Culture is pending. Continue cefazolin. Local wound care per surgery. Continue supportive care. MMODL / IJN: [id number] /
[2021-02-16 01:33] LABS: Glucose,Whole Blood 119 mg/dL (75-99)
[2021-02-16] MEDS: SODIUM CHLORIDE 0.9% 1,000 ML IV SCH ×3 (07:41→21:51)
[2021-02-16 08:03] LABS: Glucose,Whole Blood 215 mg/dL (75-99)
[2021-02-16] MEDS: ENOXAPARIN 40 MG/0.4 ML SYRINGE SQ SCH (08:29)
[2021-02-16] MEDS: INSULIN DETEMIR (LEVEMIR) 100 UNIT/ML SYR SQ SCH (08:29)
[2021-02-16] MEDS: PREGABALIN 50 MG CAP PO SCH ×3 (08:30→21:43)
[2021-02-16] MEDS: PIOGLITAZONE 15 MG TAB PO SCH (08:30)
[2021-02-16] MEDS: INSULIN ASPART (NovoLOG) 100 UNIT/ML VIAL SQ SCH ×4 (08:30→21:41)
[2021-02-16] MEDS: PANTOPRAZOLE 40 MG TABLET PO SCH (08:30)
[2021-02-16] MEDS: DILANTIN 30 MG PO SCH ×2 (08:36→21:49)
[2021-02-16 09:35] LABS: ALT <5 U/L (10-49); AST 10 U/L (14-35); African American GFR (CKD) 122.9 (60.0-200.0); Albumin 2.6 g/dL (3.8-4.9); Albumin/Globulin Ratio 0.93 (1.60-3.17); Alkaline Phosphatase 88 U/L (41-126); BUN/Creat Ratio 15.79 Ratio (12.00-20.00); Basophils # (A) 0.02 X 10*3/uL (0.00-0.10); Basophils % (A) 0.2 %; Blood Urea Nitrogen 10.2 mg/dL (9.0-27.0); Calcium 8.3 mg/dL (8.7-10.3); Carbon Dioxide 29.1 mmol/L (20.0-27.5); Chloride 99 mmol/L (96-109); Eosinophils # (A) 0.17 X 10*3/uL (0.04-0.35); Eosinophils % (A) 1.7 %; Globulin 2.8 g/dL (1.6-3.3); Glucose 167 mg/dL (70-110); Lymphocytes % (A) 19.4 %; Monocytes # (A) 0.74 X 10*3/uL (0.20-1.00); Monocytes % (A) 7.5 %; Neutrophils # (A) 6.93 X 10*3/uL (1.80-7.70); Neutrophils % (A) 70.7 %; Potassium 4.4 mmol/L (3.5-5.5); Sodium 139 mmol/L (135-145); Total Bilirubin <0.20 mg/dL (0.30-1.20); Total Protein 5.5 g/dL (6.2-8.2)
[2021-02-16 09:36] LABS: HCT 23.4 % (39.6-50.0); HGB 6.6 g/dL (13.0-17.0); MCH 20.2 pg (27.0-32.0); MCHC 28.2 g/dL (32.0-37.0); MCV 71.6 fL (80.0-97.0); Microcytosis (M) 2+; Platelet Count 570 X 10*3/uL (140-440); RBC 3.27 X 10*6/uL (4.40-5.60); RDW 17.2 % (11.5-14.5); Target Cells 2+; WBC 9.81 X 10*3/uL (4.50-10.00)
[2021-02-16] MEDS: MUPIROCIN 2% OINT 22 GM TUBE TOPICAL SCH (12:10)
[2021-02-16 12:48] LABS: Glucose,Whole Blood 170 mg/dL (75-99)
--- NOTE | 2021-02-16 13:02 | P.PN ---
Subjective Progress Note Date: 02/16/21 Pietro Ryder, is a 60 year-old male came in with complaints of for redness and cellulitis of the left lower extremity patient has a callus and skin breakdown on the plantar aspect for the first metatarsal area. Patient does have leukocytosis without any fever denied any history of MRSA. Patient is also found to have some anion gap are do not have any lactic acid levels available at this time patient has some acetone in the urine can be starvation ketosis and patient was believed to have DKA patient received IV fluids patient's serum sodium was low at 129 improved with IV fluids and correction of blood glucose. Patient is still receiving IV fluids at this time. Patient appears to diabetic neuropathy and is on Lyrica. he does follow up with podiatric On 02/11/2021 patient was seen and examined on the medical floor, he is alert and oriented 3 in no apparent distress, he is feeling better, he still has bilateral lower extremity erythema and tenderness there is an open ulcer on the bottom of the right foot otherwise patient denies any complaints there is no fever or chills no headache or dizziness no chest pain no shortness of breath no cough no nausea or vomiting no abdominal pain no diarrhea and no urinary symptoms On 02/12/2021 patient was seen and examined on the medical floor, he is alert and oriented 3 he is still complaining of bilateral lower extremity erythema and tenderness there is an open ulcer on the bottom of the right foot otherwise patient denies any complaints there is no fever or chills no headache or dizziness no chest pain no shortness of breath no cough no nausea or vomiting no abdominal pain no diarrhea and no urinary symptoms. Vascular surgery consult requested. On 02/13/2021 patient's alert and oriented 3. D-dimer completed at night which was elevated at 2.01 CTA of the chest was performed showing no pulmonary embolism moderate bilateral pleural effusions with comprehensive atelectasis and 7 mm nodule in the right upper lobe possibly infectious versus inflammatory. Venous Doppler also completed showing negative for DVT. Patient remains on IV cefazolin. Vascular surgery and infectious disease services following. Will consult pulmonary services for nodule seen on CTA scan. Patient is complaining of some lower extremity tenderness. Patient denies chest pain or shortness breath. Patient denies nausea vomiting or diarrhea. Patient denies any urinary burning or frequency On 02/14/2021 patient was seen and examined on the medical floor, he is alert and oriented 3 he is still complaining of bilateral lower extremity erythema and tenderness there is an open ulcer on the bottom of the right foot otherwise patient denies any complaints there is no fever or chills no headache or dizziness no chest pain no shortness of breath no cough no nausea or vomiting no abdominal pain no diarrhea and no urinary symptoms. Vascular surgery consult following, patient scheduled for wound debridement today. On 02/15/2021 patient's alert and oriented 3. Patient is status post debridement with wound VAC placement per Dr. Olson. Patient is currently resting comfortably in bed. Patient remains on IV antibiotics. Globin low at 7.2 we'll order dose of IV iron and folate and B12 levels. Patient denies chest pain or shortness breath. Patient denies nausea vomiting or diarrhea. Patient denies any urinary burning or frequency On 02/16/2021atient was seen and examined on the medical floor, he is alert and oriented x 3 in no distress, he denies any complaints there is no fever or chills no headache or dizziness no chest pain no shortness of breath no palpitation no cough no nausea or vomiting no abdominal pain no diarrhea no blood in the stools no burning with urination no frequency or urgency and no hematuria, there is no weakness or numbness in any of the extremities no change in vision speech or gait. Patient developed worsening anemia despite treatment with IV iron yesterday his hemoglobin dropped today to 6.61 unit of red blood cell transfusion was ordered and surgical consultation was requested for gastro intestinal evaluation regarding anemia, GI service is not available this weekend. Objective - Vital Signs Vital signs: Vital Signs Temp 98.2 F 02/16/21 08:00 Pulse 107 H 02/16/21 08:00 Resp 16 02/16/21 08:00 BP 155/76 02/16/21 08:00 Pulse Ox 95 02/16/21 08:00 Intake & Output 02/15/21 02/16/21 02/16/21 18:59 06:59 18:59 Intake Total 120 1140 380 Output Total 1000 520 Balance -880 1140 -140 Intake: Intake, IV Titration 900 Amount Sodium Chloride 0.9% 1, 900 000 ml @ 75 mls/hr IV . [id number] ERIN Rx#:[id number] Oral 120 240 380 Output: Urine 1000 520 Other: Voiding Method Toilet Toilet Urinal Urinal # Voids 0 1 # Bowel Movements 2 - Exam In general patient is alert and oriented x 3 in no distress HEENT head normocephalic and atraumatic Neck is supple no JVD no goiter no lymphadenopathy no carotid bruit Chest examination is clear to auscultation no crackles no wheezing Cardiac exam reveals regular heart sounds S1 and S2 no gallops no murmurs Abdomen is soft nontender no organomegaly with normal bowel sounds Extremity exam reveals no edema, there is bilateral lower extremity erythema and open ulcer on the bottom of the right foot, patient wearing bilateral protective boots Neurological examination reveals no gross focal deficits - Labs CBC & Chem 7: 02/16/21 06:29 02/16/21 06:29 Labs: Abnormal Lab Results - Last 24 Hours (Table) 02/15/21 02/15/21 02/16/21 Range/Units 16:30 20:22 01:31 RBC (4.40-5.60) X 10*6/uL Hgb (13.0-17.0) g/dL Hct (39.6-50.0) % MCV (80.0-97.0) fL MCH (27.0-32.0) pg MCHC (32.0-37.0) g/dL RDW (11.5-14.5) % Plt Count (140-440) X 10*3/uL Plt Count Comment MPV (9.5-12.2) fL Immature Gran # (0.00-0.04) X 10*3/uL Carbon Dioxide (20.0-27.5) mmol/L Glucose (70-110) mg/dL POC Glucose (mg/dL) 188 H 147 H 119 H (75-99) mg/dL Calcium (8.7-10.3) mg/dL Total Bilirubin (0.30-1.20) mg/dL AST (14-35) U/L ALT (10-49) U/L Total Protein (6.2-8.2) g/dL Albumin (3.8-4.9) g/dL Albumin/Globulin Ratio (1.60-3.17) g/dL 02/16/21 02/16/21 02/16/21 Range/Units 06:29 06:29 08:01 RBC 3.27 L (4.40-5.60) X 10*6/uL Hgb 6.6 L* (13.0-17.0) g/dL Hct 23.4 L (39.6-50.0) % MCV 71.6 L (80.0-97.0) fL MCH 20.2 L (27.0-32.0) pg MCHC 28.2 L (32.0-37.0) g/dL RDW 17.2 H (11.5-14.5) % Plt Count 570 H (140-440) X 10*3/uL Plt Count Comment INCREASED A MPV 9.0 L (9.5-12.2) fL Immature Gran # 0.05 H (0.00-0.04) X 10*3/uL Carbon Dioxide 29.1 H (20.0-27.5) mmol/L Glucose 167 H (70-110) mg/dL POC Glucose (mg/dL) 215 H (75-99) mg/dL Calcium 8.3 L (8.7-10.3) mg/dL Total Bilirubin <0.20 L (0.30-1.20) mg/dL AST 10 L (14-35) U/L ALT <5 L (10-49) U/L Total Protein 5.5 L (6.2-8.2) g/dL Albumin 2.6 L (3.8-4.9) g/dL Albumin/Globulin Ratio 0.93 L (1.60-3.17) g/dL Microbiology - Last 24 Hours (Table) 02/12/21 22:34 Blood Culture - Preliminary Blood No Growth after 72 hours 02/09/21 21:30 Blood Culture - Final Blood No Growth after 144 hours 02/09/21 21:15 Blood Culture - Final Blood No Growth after 144 hours 02/14/21 15:45 Gram Stain - Preliminary Foot - Right Wound Culture - Preliminary Assessment and Plan Plan: Bilateral lower extremities cellulitis, with open ulcer on the bottom of the right foot. Status post debridement Sepsis as evidenced by leukocytosis, white blood count 28.8 on presentation, blood cultures negative so far. White blood cell is trending down Acute metabolic acidosis, Hyponatremia, sodium 127 on presentation improved to 134 today Evidence of anemia hemoglobin 6.6 1 unit of red blood cell transfusion was ordered GI workup requested. Underlying history of diabetes mellitus, poorly controlled hemoglobin A1c 14.7, patient was counseled in length in regards to taking insulin at home Underlying history of peripheral neuropathy Underlying history of seizure disorder Underlying history of gastroesophageal reflux disease Underlying history of hyperlipidemia Pulmonary nodule. Pulmonary service is consulted Elevated d-dimer. CTA negative for pulmonary embolism. Venous Doppler negative for DVT Anemia hemoglobin is down to 6.6 At this time patient is admitted to medical floor Patient remains on IV antibiotics Infectious disease and vascular surgery following Pulmonary service is consulted Status post debridement on 02/14/2021 Social work following for discharge planning patient will likely occur ECF placement Repeat labs in a.m.
[2021-02-16 17:29] LABS: Glucose,Whole Blood 197 mg/dL (75-99)
[2021-02-16 20:52] LABS: Glucose,Whole Blood 159 mg/dL (75-99)
[2021-02-16] MEDS: ATORVASTATIN 20 MG TAB PO SCH (21:43)
[2021-02-17 01:32] LABS: Glucose,Whole Blood 107 mg/dL (75-99)
--- NOTE | 2021-02-17 02:09 | PN ---
PROGRESS NOTE DATE OF SERVICE: 02/16/2021 REASON FOR FOLLOWUP: Bilateral diabetic foot wound and cellulitis. INTERVAL HISTORY: Patient is afebrile. The patient is breathing comfortably. The patient denies having any chest pain. No worsening cough or sputum production. No abdominal pain. No diarrhea. PHYSICAL EXAMINATION: Blood pressure is 151/81, pulse of 98, temperature 98.1. He is 93% on 2 L nasal cannula. General description is a 60 -year-old middle-aged male lying in bed in no distress. Respiratory system: Unlabored breathing, decreased intensity of breath sounds. No wheeze. Heart S1, S2. Regular rate. Abdomen: Soft. No tenderness. LABS: Hemoglobin 6, white count 9.1, creatinine 0.69. DIAGNOSTIC IMPRESSION AND PLAN: Patient with a right diabetic foot ulcer with concern for an abscess status post drainage culture. Cultures showing elizabeth which is more likely colonized. Continue Cefazolin hopefully transition to oral antibiotic on discharge. Continue supportive care. MMODL / IJN: [id number] /
[2021-02-17 07:55] LABS: Glucose,Whole Blood 247 mg/dL (75-99)
[2021-02-17] MEDS: PREGABALIN 50 MG CAP PO SCH ×3 (08:14→20:59)
[2021-02-17] MEDS: DILANTIN 30 MG PO SCH ×2 (08:14→20:50)
[2021-02-17] MEDS: MUPIROCIN 2% OINT 22 GM TUBE TOPICAL SCH (08:16)
[2021-02-17] MEDS: INSULIN DETEMIR (LEVEMIR) 100 UNIT/ML SYR SQ SCH (08:17)
[2021-02-17] MEDS: INSULIN ASPART (NovoLOG) 100 UNIT/ML VIAL SQ SCH ×4 (08:17→20:49)
[2021-02-17] MEDS: PIOGLITAZONE 15 MG TAB PO SCH (08:18)
[2021-02-17] MEDS: PANTOPRAZOLE 40 MG TABLET PO SCH (08:23)
[2021-02-17] MEDS: ENOXAPARIN 40 MG/0.4 ML SYRINGE SQ SCH (08:52)
--- NOTE | 2021-02-17 09:19 | P.GSCN ---
History of Present Illness Consult date: 02/17/21 Reason for Consult: Anemia History of present illness: We were consulted given the patient's progressive anemia. Patient hospitalized with cellulitis and leg wounds. Underwent debridement. During this hospital stay patient's hemoglobin has drifted down to 6.6 yesterday. This is despite iron transfusions. Patient's last colonoscopy is November 2016 and it was normal. Patient says he is scheduled in the near future for endoscopy he is not sure when, with who, or where this is being performed. He does not see any bloody stools or black-colored stools. No abdominal pain. Tolerating diet. Review of Systems The patient denies any acute changes in vision or hearing, no dysphagia or odynophagia, no chest pain or shortness of breath, no dysuria or hematuria, no headache, no runny nose, no rectal bleeding or melena, no unexplained weight loss Past Medical History Past Medical History: Cancer, Diabetes Mellitus, GERD/Reflux, Hyperlipidemia, Osteoarthritis (OA), Seizure Disorder Additional Past Medical History / Comment(s): IDDM type 1, wounds to upper back from scratching and L leg-seen at [facility], past L lower extremity cellulitis with sepsis, L wrist cancerous tumor removed, past seizure over 6 months ago, arthritis L knee, vertigo, occasional diarrhea, pt cannot recall why he takes lyrica. History of Any Multi-Drug Resistant Organisms: MRSA Year Discovered:: 12/29/19 MDRO Source:: Left Leg Past Surgical History: Tonsillectomy Additional Past Surgical History / Comment(s): 01/23/20 angiogram L leg, can cerous tumor removed from left wrist, LT Eye SX DONE FOR LA[facility]Y EYE. Past Anesthesia/Blood Transfusion Reactions: No Reported Reaction Past Psychological History: Depression Additional Psychological History / Comment(s): Pt resides with friends. He has a glucometer. He does not drive, he usually uses bus system. He is otherwise, independent. Smoking Status: Never smoker Past Alcohol Use History: None Reported Past Drug Use History: None Reported - Past Family History Father Family Medical History: Myocardial Infarction (UT) Additional Family Medical History / Comment(s): Father of a UT at the age of 57yrs. Mother Family Medical History: Cancer Additional Family Medical History / Comment(s): Mother from cancer at the age of 61 or 62 . Pt cannot recall type of cancer. Sister(s) Family Medical History: Diabetes Mellitus Additional Family Medical History / Comment(s): Sister had DM type 1. She is . Medications and Allergies Home Medications Medication Instructions Recorded Confirmed Type Omeprazole 20 mg PO DAILY 06/13/17 02/09/21 History Pioglitazone HCl [Actos] 15 mg PO DAILY 10/03/18 02/09/21 History Diphenox-Atrop 2.5-0.025 mg 1 tab PO BID PRN 11/17/19 02/09/21 History [Lomotil] Triamcinolone 0.5% Cream [Kenalog 1 applic TOPICAL DAILY 01/19/20 02/09/21 H istory 0.5% Cream] Insulin Glargine [Lantus Vial] 50 unit SQ DAILY 05/15/20 02/09/21 History Pregabalin [Lyrica] 50 mg PO TID 05/15/20 02/09/21 History Rosuvastatin [Crestor] 10 mg PO HS 05/15/20 02/09/21 History Mupirocin 2% Oint [Bactroban 2% 1 applic TOPICAL DAILY 12/29/20 02/09/21 History Oint] Phenytoin Sodium Extended 30 mg PO BID 02/09/21 02/09/21 History [Dilantin] traMADol HCL 50 mg PO Q6H PRN 02/09/21 02/09/21 History Allergies Allergy/AdvReac Type Severity Reaction Status Date / Time No Known Allergies Allergy Verified 02/14/21 13:41 Surgical - Exam Vital Signs Temp Pulse Resp BP Pulse Ox 100.5 F H 142 H 16 128/71 98 02/09/21 18:45 02/09/21 18:45 02/09/21 18:45 02/09/21 18:45 02/09/21 18:45 Physical exam: General: Well-developed, malnourished appearing HEENT: Normocephalic, sclerae nonicteric Abdomen: Nontender, nondistended Extremities: Bilateral lower extremity edema with wound Neuro: Alert and oriented Results - Labs 02/16/21 06:29 02/16/21 06:29 Abnormal Lab Results - Last 24 Hours (Table) 02/16/21 02/16/21 02/16/21 Range/Units 06:29 06:29 11:17 RBC 3.27 L (4.40-5.60) X 10*6/uL Hgb 6.6 L* (13.0-17.0) g/dL Hct 23.4 L (39.6-50.0) % MCV 71.6 L (80.0-97.0) fL MCH 20.2 L (27.0-32.0) pg MCHC 28.2 L (32.0-37.0) g/dL RDW 17.2 H (11.5-14.5) % Plt Count 570 H (140-440) X 10*3/uL Plt Count Comment INCREASED A MPV 9.0 L (9.5-12.2) fL Immature Gran # 0.05 H (0.00-0.04) X 10*3/uL Carbon Dioxide 29.1 H (20.0-27.5) mmol/L Glucose 167 H (70-110) mg/dL POC Glucose (mg/dL) (75-99) mg/dL Calcium 8.3 L (8.7-10.3) mg/dL Total Bilirubin <0.20 L (0.30-1.20) mg/dL AST 10 L (14-35) U/L ALT <5 L (10-49) U/L Total Protein 5.5 L (6.2-8.2) g/dL Albumin 2.6 L (3.8-4.9) g/dL Albumin/Globulin Ratio 0.93 L (1.60-3.17) g/dL Crossmatch See Detail 02/16/21 02/16/21 02/16/21 Range/Units 12:46 17:28 20:51 RBC (4.40-5.60) X 10*6/uL Hgb (13.0-17.0) g/dL Hct (39.6-50.0) % MCV (80.0-97.0) fL MCH (27.0-32.0) pg MCHC (32.0-37.0) g/dL RDW (11.5-14.5) % Plt Count (140-440) X 10*3/uL Plt Count Comment MPV (9.5-12.2) fL Immature Gran # (0.00-0.04) X 10*3/uL Carbon Dioxide (20.0-27.5) mmol/L Glucose (70-110) mg/dL POC Glucose (mg/dL) 170 H 197 H 159 H (75-99) mg/dL Calcium (8.7-10.3) mg/dL Total Bilirubin (0.30-1.20) mg/dL AST (14-35) U/L ALT (10-49) U/L Total Protein (6.2-8.2) g/dL Albumin (3.8-4.9) g/dL Albumin/Globulin Ratio (1.60-3.17) g/dL Crossmatch 02/17/21 02/17/21 Range/Units 01:30 07:54 RBC (4.40-5.60) X 10*6/uL Hgb (13.0-17.0) g/dL Hct (39.6-50.0) % MCV (80.0-97.0) fL MCH (27.0-32.0) pg MCHC (32.0-37.0) g/dL RDW (11.5-14.5) % Plt Count (140-440) X 10*3/uL Plt Count Comment MPV (9.5-12.2) fL Immature Gran # (0.00-0.04) X 10*3/uL Carbon Dioxide (20.0-27.5) mmol/L Glucose (70-110) mg/dL POC Glucose (mg/dL) 107 H 247 H (75-99) mg/dL Calcium (8.7-10.3) mg/dL Total Bilirubin (0.30-1.20) mg/dL AST (14-35) U/L ALT (10-49) U/L Total Protein (6.2-8.2) g/dL Albumin (3.8-4.9) g/dL Albumin/Globulin Ratio (1.60-3.17) g/dL Crossmatch Microbiology - Last 24 Hours (Table) 02/12/21 22:34 Blood Culture - Preliminary Blood No Growth after 96 hours 02/14/21 15:45 Gram Stain - Final Foot - Right Wound Culture - Final Lacie albicans 02/14/21 15:45 Anaerobic Culture - Preliminary Foot - Right Diabetes panel 02/16/21 Range/Units 06:29 Sodium 139 (135-145) mmol/L Potassium 4.4 (3.5-5.5) mmol/L Chloride 99 (96-109) mmol/L Carbon Dioxide 29.1 H (20.0-27.5) mmol/L BUN 10.2 (9.0-27.0) mg/dL Creatinine 0.6 (0.6-1.5) mg/dL Glucose 167 H (70-110) mg/dL Calcium 8.3 L (8.7-10.3) mg/dL AST 10 L (14-35) U/L ALT <5 L (10-49) U/L Alkaline Phosphatase 88 (41-126) U/L Total Protein 5.5 L (6.2-8.2) g/dL Albumin 2.6 L (3.8-4.9) g/dL Calcium panel 02/16/21 Range/Units 06:29 Calcium 8.3 L (8.7-10.3) mg/dL Albumin 2.6 L (3.8-4.9) g/dL Pituitary panel 02/16/21 Range/Units 06:29 Sodium 139 (135-145) mmol/L Potassium 4.4 (3.5-5.5) mmol/L Chloride 99 (96-109) mmol/L Carbon Dioxide 29.1 H (20.0-27.5) mmol/L BUN 10.2 (9.0-27.0) mg/dL Creatinine 0.6 (0.6-1.5) mg/dL Glucose 167 H (70-110) mg/dL Calcium 8.3 L (8.7-10.3) mg/dL Adrenal panel 02/16/21 Range/Units 06:29 Sodium 139 (135-145) mmol/L Potassium 4.4 (3.5-5.5) mmol/L Chloride 99 (96-109) mmol/L Carbon Dioxide 29.1 H (20.0-27.5) mmol/L BUN 10.2 (9.0-27.0) mg/dL Creatinine 0.6 (0.6-1.5) mg/dL Glucose 167 H (70-110) mg/dL Calcium 8.3 L (8.7-10.3) mg/dL Total Bilirubin <0.20 L (0.30-1.20) mg/dL AST 10 L (14-35) U/L ALT <5 L (10-49) U/L Alkaline Phosphatase 88 (41-126) U/L Total Protein 5.5 L (6.2-8.2) g/dL Albumin 2.6 L (3.8-4.9) g/dL Assessment and Plan (1) Anemia Narrative/Plan: 60-year-old male with significant anemia. We'll proceed with upper and lower endoscopy on Thursday. Begin bowel prep tomorrow. Current Visit: Yes Status: Acute Code(s): D64.9 - ANEMIA, UNSPECIFIED SNOMED Code(s): 143018416
--- NOTE | 2021-02-17 10:21 | P.PN ---
Subjective Progress Note Date: 02/17/21 Pietro Ryder, is a 60 year-old male came in with complaints of for redness and cellulitis of the left lower extremity patient has a callus and skin breakdown on the plantar aspect for the first metatarsal area. Patient does have leukocytosis without any fever denied any history of MRSA. Patient is also found to have some anion gap are do not have any lactic acid levels available at this time patient has some acetone in the urine can be starvation ketosis and patient was believed to have DKA patient received IV fluids patient's serum sodium was low at 129 improved with IV fluids and correction of blood glucose. Patient is still receiving IV fluids at this time. Patient appears to diabetic neuropathy and is on Lyrica. he does follow up with podiatric On 02/11/2021 patient was seen and examined on the medical floor, he is alert and oriented 3 in no apparent distress, he is feeling better, he still has bilateral lower extremity erythema and tenderness there is an open ulcer on the bottom of the right foot otherwise patient denies any complaints there is no fever or chills no headache or dizziness no chest pain no shortness of breath no cough no nausea or vomiting no abdominal pain no diarrhea and no urinary symptoms On 02/12/2021 patient was seen and examined on the medical floor, he is alert and oriented 3 he is still complaining of bilateral lower extremity erythema and tenderness there is an open ulcer on the bottom of the right foot otherwise patient denies any complaints there is no fever or chills no headache or dizziness no chest pain no shortness of breath no cough no nausea or vomiting no abdominal pain no diarrhea and no urinary symptoms. Vascular surgery consult requested. On 02/13/2021 patient's alert and oriented 3. D-dimer completed at night which was elevated at 2.01 CTA of the chest was performed showing no pulmonary embolism moderate bilateral pleural effusions with comprehensive atelectasis and 7 mm nodule in the right upper lobe possibly infectious versus inflammatory. Venous Doppler also completed showing negative for DVT. Patient remains on IV cefazolin. Vascular surgery and infectious disease services following. Will consult pulmonary services for nodule seen on CTA scan. Patient is complaining of some lower extremity tenderness. Patient denies chest pain or shortness breath. Patient denies nausea vomiting or diarrhea. Patient denies any urinary burning or frequency On 02/14/2021 patient was seen and examined on the medical floor, he is alert and oriented 3 he is still complaining of bilateral lower extremity erythema and tenderness there is an open ulcer on the bottom of the right foot otherwise patient denies any complaints there is no fever or chills no headache or dizziness no chest pain no shortness of breath no cough no nausea or vomiting no abdominal pain no diarrhea and no urinary symptoms. Vascular surgery consult following, patient scheduled for wound debridement today. On 02/15/2021 patient's alert and oriented 3. Patient is status post debridement with wound VAC placement per Dr. Olson. Patient is currently resting comfortably in bed. Patient remains on IV antibiotics. Globin low at 7.2 we'll order dose of IV iron and folate and B12 levels. Patient denies chest pain or shortness breath. Patient denies nausea vomiting or diarrhea. Patient denies any urinary burning or frequency On 02/16/2021atient was seen and examined on the medical floor, he is alert and oriented x 3 in no distress, he denies any complaints there is no fever or chills no headache or dizziness no chest pain no shortness of breath no palpitation no cough no nausea or vomiting no abdominal pain no diarrhea no blood in the stools no burning with urination no frequency or urgency and no hematuria, there is no weakness or numbness in any of the extremities no change in vision speech or gait. Patient developed worsening anemia despite treatment with IV iron yesterday his hemoglobin dropped today to 6.61 unit of red blood cell transfusion was ordered and surgical consultation was requested for gastro intestinal evaluation regarding anemia, GI service is not available this weekend. On 02/17/2021 patient's alert and oriented 3 currently resting comfortably in bed. Surgical services were consulted for anemia. Plans for upper and lower GI scopes for 02/19/2021. Labs currently pending for this a.m. patient did receive 1 unit of PRBCs yesterday. Patient denies chest pain or shortness of breath. Patient denies nausea vomiting or diarrhea. Patient denies any urinary burning or frequency. Per nursing staff no signs of blood in stool patient did report to have loose stools which has been an ongoing issue for him for multiple years Objective - Vital Signs Vital signs: Vital Signs Temp 98.2 F 02/17/21 08:00 Pulse 88 02/17/21 08:00 Resp 16 02/17/21 08:00 BP 138/76 02/17/21 08:00 Pulse Ox 96 02/17/21 08:00 Intake & Output 02/16/21 02/17/21 02/17/21 18:59 06:59 18:59 Intake Total 870 Output Total 1300 380 Balance -430 -380 Intake: Oral 560 Blood Product 310 Rc As-1 Unit 310 [id number] Output: Urine 1300 380 Other: Voiding Method Toilet Urinal # Voids 2 - Exam In general patient is alert and oriented x 3 in no distress HEENT head normocephalic and atraumatic Neck is supple no JVD no goiter no lymphadenopathy no carotid bruit Chest examination is clear to auscultation no crackles no wheezing Cardiac exam reveals regular heart sounds S1 and S2 no gallops no murmurs Abdomen is soft nontender no organomegaly with normal bowel sounds Extremity exam reveals no edema, there is bilateral lower extremity erythema and open ulcer on the bottom of the right foot, patient wearing bilateral protective boots Neurological examination reveals no gross focal deficits - Labs CBC & Chem 7: 02/16/21 06:29 02/16/21 06:29 Labs: Abnormal Lab Results - Last 24 Hours (Table) 02/16/21 02/16/21 02/16/21 Range/Units 11:17 12:46 17:28 POC Glucose (mg/dL) 170 H 197 H (75-99) mg/dL Crossmatch See Detail 02/16/21 02/17/21 02/17/21 Range/Units 20:51 01:30 07:54 POC Glucose (mg/dL) 159 H 107 H 247 H (75-99) mg/dL Crossmatch Microbiology - Last 24 Hours (Table) 02/12/21 22:34 Blood Culture - Preliminary Blood No Growth after 96 hours 02/14/21 15:45 Gram Stain - Final Foot - Right Wound Culture - Final Lacie albicans 02/14/21 15:45 Anaerobic Culture - Preliminary Foot - Right Assessment and Plan Plan: Bilateral lower extremities cellulitis, with open ulcer on the bottom of the right foot. Status post debridement Sepsis as evidenced by leukocytosis, white blood count 28.8 on presentation, blood cultures negative so far. White blood cell is trending down Acute metabolic acidosis, Hyponatremia, sodium 127 on presentation improved to 134 today Evidence of anemia hemoglobin 6.6 1 unit of red blood cell transfusion was ordered GI workup requested. Underlying history of diabetes mellitus, poorly controlled hemoglobin A1c 14.7, patient was counseled in length in regards to taking insulin at home Underlying history of peripheral neuropathy Underlying history of seizure disorder Underlying history of gastroesophageal reflux disease Underlying history of hyperlipidemia Pulmonary nodule. Pulmonary service is consulted Elevated d-dimer. CTA negative for pulmonary embolism. Venous Doppler negative for DVT Anemia hemoglobin is down to 6.6. Status post 1 unit PRBC transfusion. Surgical services have been consulted plans for upper and lower scopes on 02/19/2021 At this time patient is admitted to medical floor Patient remains on IV antibiotics Infectious disease and vascular surgery following Pulmonary service is consulted Status post debridement on 02/14/2021 Tentative plans for EGD and colonoscopy with Dr. araya on 02/19/2021 Social work following for discharge planning patient will likely occur ECF placement Repeat labs in a.m.
[2021-02-17 10:44] LABS: Basophils # (A) 0.04 X 10*3/uL (0.00-0.10); Basophils % (A) 0.4 %; Eosinophils % (A) 1.9 %; HCT 28.9 % (39.6-50.0); HGB 8.5 g/dL (13.0-17.0); Lymphocytes # (A) 1.84 X 10*3/uL (0.90-5.00); Lymphocytes % (A) 17.2 %; MCH 22.2 pg (27.0-32.0); MCHC 29.4 g/dL (32.0-37.0); MCV 75.5 fL (80.0-97.0); Mean Platelet Volume 9.3 fL (9.5-12.2); Monocytes # (A) 0.71 X 10*3/uL (0.20-1.00); Monocytes % (A) 6.7 %; Neutrophils # (A) 7.83 X 10*3/uL (1.80-7.70); Neutrophils % (A) 73.3 %; Platelet Count 631 X 10*3/uL (140-440); RBC 3.83 X 10*6/uL (4.40-5.60); RDW 21.9 % (11.5-14.5); WBC 10.67 X 10*3/uL (4.50-10.00)
[2021-02-17 11:21] LABS: ALT 7 U/L (10-49); AST 16 U/L (14-35); African American GFR (CKD) 115.2 (60.0-200.0); Albumin/Globulin Ratio 0.88 (1.60-3.17); Alkaline Phosphatase 101 U/L (41-126); BUN/Creat Ratio 12.67 Ratio (12.00-20.00); Blood Urea Nitrogen 9.6 mg/dL (9.0-27.0); Calcium 8.8 mg/dL (8.7-10.3); Carbon Dioxide 29.9 mmol/L (20.0-27.5); Chloride 98 mmol/L (96-109); Globulin 3.4 g/dL (1.6-3.3); Glucose 110 mg/dL (70-110); Non-African American GFR(CKD) 99.4 (60.0-200.0); Potassium 4.3 mmol/L (3.5-5.5); Sodium 138 mmol/L (135-145); Total Bilirubin <0.20 mg/dL (0.30-1.20); Total Protein 6.4 g/dL (6.2-8.2)
[2021-02-17 12:36] LABS: Glucose,Whole Blood 160 mg/dL (75-99)
[2021-02-17] MEDS: DIPHENOX-ATROP 2.5-0.025 MG 1 EACH TAB PO PRN (17:01)
[2021-02-17 17:29] LABS: Glucose,Whole Blood 132 mg/dL (75-99)
[2021-02-17] MEDS: SODIUM CHLORIDE 0.9% 1,000 ML IV SCH (17:30)
[2021-02-17 20:43] LABS: Glucose,Whole Blood 111 mg/dL (75-99)
[2021-02-17] MEDS: ATORVASTATIN 20 MG TAB PO SCH (20:49)
--- NOTE | 2021-02-17 23:25 | PN ---
PROGRESS NOTE DATE OF SERVICE: 02/17/2021 REASON FOR FOLLOWUP: Right diabetic foot infection with an abscess. INTERVAL HISTORY: The patient is afebrile. The patient is breathing comfortably. The patient denies having any chest pain or shortness of breath or cough. No abdominal pain or pain to the right foot area. PHYSICAL EXAMINATION: Blood pressure is 143/81 with a pulse of 91, temperature 98.1. He is 95% on 2 L nasal cannula. General description is a middle-aged male lying in bed in no distress. Respiratory system: Unlabored breathing. Clear to auscultation anteriorly. Heart S1, S2. Regular rate and rhythm. Abdomen soft, no tenderness. Right foot wound is currently covered with a wound V.A.C. LABS: White count was normal. Culture so far negative. DIAGNOSTIC IMPRESSION AND PLAN: Patient with right diabetic foot infection in this patient who is status post drainage of the abscessed foot. Cultures have been negative so far. Patient has had overall improvement on cefazolin; to continue. Will re-evaluate the wound tomorrow at the time of wound V.A.C. changes to determine need for the outpatient IV or oral antibiotic therapy. Continue supportive care. MMODL / IJN: [id number] /
[2021-02-18 01:34] LABS: Glucose,Whole Blood 161 mg/dL (75-99)
[2021-02-18] MEDS: SODIUM CHLORIDE 0.9% 1,000 ML IV SCH ×2 (05:50→21:18)
[2021-02-18 06:38] LABS: Anisocytosis Slight; Basophils % (A) 0 %; Eosinophils # (A) 0.1 k/uL (0-0.7); Eosinophils % (A) 2 %; HGB 8.5 gm/dL (13.0-17.5); Hypochromasia Marked; Lymphocytes # (A) 1.7 k/uL (1.0-4.8); Lymphocytes % (A) 19 %; MCH 23.5 pg (25.0-35.0); MCHC 30.4 g/dL (31.0-37.0); MCV 77.2 fL (80.0-100.0); Mean Platelet Volume 6.7; Microcytosis Slight; Monocytes # (A) 0.5 k/uL (0-1.0); Monocytes % (A) 6 %; Neutrophils # (A) 6.6 k/uL (1.3-7.7); Neutrophils % (A) 73 %; Platelet Count 613 k/uL (150-450); Poikilocytosis Slight; RBC 3.62 m/uL (4.30-5.90); RDW 19.9 % (11.5-15.5); WBC 9.2 k/uL (3.8-10.6)
[2021-02-18 07:43] LABS: Glucose,Whole Blood 280 mg/dL (75-99)
[2021-02-18] MEDS: ENOXAPARIN 40 MG/0.4 ML SYRINGE SQ SCH (08:20)
[2021-02-18] MEDS: PANTOPRAZOLE 40 MG TABLET PO SCH (08:21)
[2021-02-18] MEDS: PREGABALIN 50 MG CAP PO SCH ×3 (08:21→21:18)
[2021-02-18] MEDS: PIOGLITAZONE 15 MG TAB PO SCH (08:21)
[2021-02-18] MEDS: INSULIN ASPART (NovoLOG) 100 UNIT/ML VIAL SQ SCH ×4 (08:22→21:06)
[2021-02-18] MEDS: INSULIN DETEMIR (LEVEMIR) 100 UNIT/ML SYR SQ SCH (08:22)
[2021-02-18] MEDS: DILANTIN 30 MG PO SCH ×2 (08:23→21:18)
[2021-02-18] MEDS: MUPIROCIN 2% OINT 22 GM TUBE TOPICAL SCH (08:25)
[2021-02-18 09:21] LABS: ALT 6 U/L (10-49); AST 18 U/L (14-35); African American GFR (CKD) 118.9 (60.0-200.0); Albumin 2.8 g/dL (3.8-4.9); Alkaline Phosphatase 106 U/L (41-126); BUN/Creat Ratio 16.43 Ratio (12.00-20.00); Blood Urea Nitrogen 11.5 mg/dL (9.0-27.0); Calcium 8.5 mg/dL (8.7-10.3); Carbon Dioxide 28.6 mmol/L (20.0-27.5); Chloride 98 mmol/L (96-109); Globulin 3.1 g/dL (1.6-3.3); Glucose 209 mg/dL (70-110); Non-African American GFR(CKD) 102.6 (60.0-200.0); Potassium 4.5 mmol/L (3.5-5.5); Sodium 135 mmol/L (135-145); Total Bilirubin <0.20 mg/dL (0.30-1.20); Total Protein 5.9 g/dL (6.2-8.2)
[2021-02-18] MEDS ORDERED: PEG 3350-NA SULF,BICARB,CL/KCL 4,000 ML BOTTLE PO ONE (11:47)
--- NOTE | 2021-02-18 12:02 | P.PN ---
Subjective Progress Note Date: 02/18/21 CHIEF COMPLAINT: Anemia HISTORY OF PRESENT ILLNESS: Surgical service is following in regards to patient's anemia. He is hospitalized with cellulitis and leg wounds and has undergone debridement. Patient's hemoglobin had gone down to 6.6. His hemoglobin is now 8.5. He denies any blood in his stools or black-colored stools. Denies any abdominal pain. He is tolerating diet. Afebrile. PHYSICAL EXAM: VITAL SIGNS: Reviewed. GENERAL: Well-developed in no acute distress. HEENT: No sclera icterus. Extraocular movements grossly intact. Moist buccal mucosa. Head is atraumatic, normocephalic. ABDOMEN: Soft. Nondistended. Nontender. NEUROLOGIC: Alert and oriented. Cranial nerves II through XII grossly intact. ASSESSMENT: 1. Anemia PLAN: -Patient scheduled for EGD and colonoscopy tomorrow, 02/19/[address] Gonzalez -Nothing by mouth after midnight -Continue clear liquid diet for today -Start GoLYTELY prep now Physician [employer] note has been reviewed by physician. Signing provider agrees with the documented findings, assessment, and plan of care. Objective - Vital Signs Vital signs: Vital Signs Temp 97.9 F 02/18/21 04:56 Pulse 84 02/18/21 04:56 Resp 18 02/18/21 04:56 BP 143/78 02/18/21 04:56 Pulse Ox 96 02/18/21 04:56 Intake & Output 02/17/21 02/18/21 02/18/21 18:59 06:59 18:59 Intake Total 180 1000 600 Output Total 1720 Balance -1540 1000 600 Intake: Intake, IV Titration 1000 Amount Sodium Chloride 0.9% 1, 900 000 ml @ 75 mls/hr IV . [id number] ERIN Rx#:[id number] ceFAZolin 2 gm In Sodium 100 Chloride 0.9% 50 ml @ 100 mls/hr IVPB Q8HR ERIN Rx# :[id number] Oral 180 600 Output: Urine 1720 Other: Voiding Method Toilet Urinal # Voids 3 2 # Bowel Movements 2 - Labs CBC & Chem 7: 02/18/21 05:30 02/18/21 05:30 Labs: Abnormal Lab Results - Last 24 Hours (Table) 02/17/21 02/17/21 02/17/21 Range/Units 12:34 17:28 20:42 RBC (4.30-5.90) m/uL Hgb (13.0-17.5) gm/dL Hct (39.0-53.0) % MCV (80.0-100.0) fL MCH (25.0-35.0) pg MCHC (31.0-37.0) g/dL RDW (11.5-15.5) % Plt Count (150-450) k/uL Carbon Dioxide (20.0-27.5) mmol/L Anion Gap (10.00-18.00) mmol/L Glucose (70-110) mg/dL POC Glucose (mg/dL) 160 H 132 H 111 H (75-99) mg/dL Calcium (8.7-10.3) mg/dL Total Bilirubin (0.30-1.20) mg/dL ALT (10-49) U/L Total Protein (6.2-8.2) g/dL Albumin (3.8-4.9) g/dL Albumin/Globulin Ratio (1.60-3.17) g/dL 02/18/21 02/18/21 02/18/21 Range/Units 01:29 05:30 05:30 RBC 3.62 L (4.30-5.90) m/uL Hgb 8.5 L (13.0-17.5) gm/dL Hct 28.0 L (39.0-53.0) % MCV 77.2 L (80.0-100.0) fL MCH 23.5 L (25.0-35.0) pg MCHC 30.4 L (31.0-37.0) g/dL RDW 19.9 H (11.5-15.5) % Plt Count 613 H (150-450) k/uL Carbon Dioxide 28.6 H (20.0-27.5) mmol/L Anion Gap 8.40 L (10.00-18.00) mmol/L Glucose 209 H (70-110) mg/dL POC Glucose (mg/dL) 161 H (75-99) mg/dL Calcium 8.5 L (8.7-10.3) mg/dL Total Bilirubin <0.20 L (0.30-1.20) mg/dL ALT 6 L (10-49) U/L Total Protein 5.9 L (6.2-8.2) g/dL Albumin 2.8 L (3.8-4.9) g/dL Albumin/Globulin Ratio 0.90 L (1.60-3.17) g/dL 02/18/21 Range/Units 07:36 RBC (4.30-5.90) m/uL Hgb (13.0-17.5) gm/dL Hct (39.0-53.0) % MCV (80.0-100.0) fL MCH (25.0-35.0) pg MCHC (31.0-37.0) g/dL RDW (11.5-15.5) % Plt Count (150-450) k/uL Carbon Dioxide (20.0-27.5) mmol/L Anion Gap (10.00-18.00) mmol/L Glucose (70-110) mg/dL POC Glucose (mg/dL) 280 H (75-99) mg/dL Calcium (8.7-10.3) mg/dL Total Bilirubin (0.30-1.20) mg/dL ALT (10-49) U/L Total Protein (6.2-8.2) g/dL Albumin (3.8-4.9) g/dL Albumin/Globulin Ratio (1.60-3.17) g/dL Microbiology - Last 24 Hours (Table) 02/12/21 22:34 Blood Culture - Preliminary Blood No Growth after 120 hours
[2021-02-18 12:39] LABS: Glucose,Whole Blood 158 mg/dL (75-99)
[2021-02-18] MEDS ORDERED: COLLAGENASE 250 UNIT/GM OINTMENT 30 GM TUBE TOPICAL SCH (13:00)
[2021-02-18] MEDS: traMADol 50 MG TAB PO PRN (15:48)
[2021-02-18 17:21] LABS: Glucose,Whole Blood 48 mg/dL (75-99)
[2021-02-18 17:43] LABS: Glucose,Whole Blood 79 mg/dL (75-99)
--- NOTE | 2021-02-18 18:49 | P.PN ---
Subjective Progress Note Date: 02/18/21 Pietro Ryder, is a 60 year-old male came in with complaints of for redness and cellulitis of the left lower extremity patient has a callus and skin breakdown on the plantar aspect for the first metatarsal area. Patient does have leukocytosis without any fever denied any history of MRSA. Patient is also found to have some anion gap are do not have any lactic acid levels available at this time patient has some acetone in the urine can be starvation ketosis and patient was believed to have DKA patient received IV fluids patient's serum sodium was low at 129 improved with IV fluids and correction of blood glucose. Patient is still receiving IV fluids at this time. Patient appears to diabetic neuropathy and is on Lyrica. he does follow up with podiatric On 02/11/2021 patient was seen and examined on the medical floor, he is alert and oriented 3 in no apparent distress, he is feeling better, he still has bilateral lower extremity erythema and tenderness there is an open ulcer on the bottom of the right foot otherwise patient denies any complaints there is no fever or chills no headache or dizziness no chest pain no shortness of breath no cough no nausea or vomiting no abdominal pain no diarrhea and no urinary symptoms On 02/12/2021 patient was seen and examined on the medical floor, he is alert and oriented 3 he is still complaining of bilateral lower extremity erythema and tenderness there is an open ulcer on the bottom of the right foot otherwise patient denies any complaints there is no fever or chills no headache or dizziness no chest pain no shortness of breath no cough no nausea or vomiting no abdominal pain no diarrhea and no urinary symptoms. Vascular surgery consult requested. On 02/13/2021 patient's alert and oriented 3. D-dimer completed at night which was elevated at 2.01 CTA of the chest was performed showing no pulmonary embolism moderate bilateral pleural effusions with comprehensive atelectasis and 7 mm nodule in the right upper lobe possibly infectious versus inflammatory. Venous Doppler also completed showing negative for DVT. Patient remains on IV cefazolin. Vascular surgery and infectious disease services following. Will consult pulmonary services for nodule seen on CTA scan. Patient is complaining of some lower extremity tenderness. Patient denies chest pain or shortness breath. Patient denies nausea vomiting or diarrhea. Patient denies any urinary burning or frequency On 02/14/2021 patient was seen and examined on the medical floor, he is alert and oriented 3 he is still complaining of bilateral lower extremity erythema and tenderness there is an open ulcer on the bottom of the right foot otherwise patient denies any complaints there is no fever or chills no headache or dizziness no chest pain no shortness of breath no cough no nausea or vomiting no abdominal pain no diarrhea and no urinary symptoms. Vascular surgery consult following, patient scheduled for wound debridement today. On 02/15/2021 patient's alert and oriented 3. Patient is status post debridement with wound VAC placement per Dr. Olson. Patient is currently resting comfortably in bed. Patient remains on IV antibiotics. Globin low at 7.2 we'll order dose of IV iron and folate and B12 levels. Patient denies chest pain or shortness breath. Patient denies nausea vomiting or diarrhea. Patient denies any urinary burning or frequency On 02/16/2021atient was seen and examined on the medical floor, he is alert and oriented x 3 in no distress, he denies any complaints there is no fever or chills no headache or dizziness no chest pain no shortness of breath no palpitation no cough no nausea or vomiting no abdominal pain no diarrhea no blood in the stools no burning with urination no frequency or urgency and no hematuria, there is no weakness or numbness in any of the extremities no change in vision speech or gait. Patient developed worsening anemia despite treatment with IV iron yesterday his hemoglobin dropped today to 6.61 unit of red blood cell transfusion was ordered and surgical consultation was requested for gastro intestinal evaluation regarding anemia, GI service is not available this weekend. On 02/17/2021 patient's alert and oriented 3 currently resting comfortably in bed. Surgical services were consulted for anemia. Plans for upper and lower GI scopes for 02/19/2021. Labs currently pending for this a.m. patient did receive 1 unit of PRBCs yesterday. Patient denies chest pain or shortness of breath. Patient denies nausea vomiting or diarrhea. Patient denies any urinary burning or frequency. Per nursing staff no signs of blood in stool patient did report to have loose stools which has been an ongoing issue for him for multiple years. On 02/18/2021 patient was seen and examined on the medical floor he is alert and oriented 3 in no apparent distress patient had anemia requiring red blood cell transfusion, surgical consultation was requested for EGD and colonoscopy, as there was no gastroenterology coverage over the weekend, patient is complaining of pain in the bottom of his right foot otherwise he denies any complaints at this time there is no fever or chills no headache or dizziness no chest pain no shortness of breath no cough no nausea or vomiting no abdominal pain no diarrhea and no urinary symptoms Objective - Vital Signs Vital signs: Vital Signs Temp 97.9 F 02/18/21 04:56 Pulse 84 02/18/21 04:56 Resp 18 02/18/21 04:56 BP 143/78 02/18/21 04:56 Pulse Ox 96 02/18/21 04:56 Intake & Output 02/17/21 02/18/21 02/18/21 18:59 06:59 18:59 Intake Total 180 1000 Output Total 1720 Balance -1540 1000 Intake: Intake, IV Titration 1000 Amount Sodium Chloride 0.9% 1, 900 000 ml @ 75 mls/hr IV . [id number] [facility] Rx#:[id number] ceFAZolin 2 gm In Sodium 100 Chloride 0.9% 50 ml @ 100 mls/hr IVPB Q8HR [facility] Rx# :[id number] Oral 180 Output: Urine 1720 Other: Voiding Method Toilet Urinal # Voids 3 2 # Bowel Movements 2 - Exam In general patient is alert and oriented x 3 in no distress HEENT head normocephalic and atraumatic Neck is supple no JVD no goiter no lymphadenopathy no carotid bruit Chest examination is clear to auscultation no crackles no wheezing Cardiac exam reveals regular heart sounds S1 and S2 no gallops no murmurs Abdomen is soft nontender no organomegaly with normal bowel sounds Extremity exam reveals no edema, there is bilateral lower extremity erythema and open ulcer on the bottom of the right foot, patient wearing bilateral protective boots Neurological examination reveals no gross focal deficits - Labs CBC & Chem 7: 02/18/21 05:30 02/18/21 05:30 Labs: Abnormal Lab Results - Last 24 Hours (Table) 02/17/21 02/17/21 02/17/21 Range/Units 03:34 03:34 12:34 WBC 10.67 H (4.50-10.00) X 10*3/uL RBC 3.83 L (4.40-5.60) X 10*6/uL Hgb 8.5 L (13.0-17.0) g/dL Hct 28.9 L (39.6-50.0) % MCV 75.5 L (80.0-97.0) fL MCH 22.2 L (27.0-32.0) pg MCHC 29.4 L (32.0-37.0) g/dL RDW 21.9 H (11.5-14.5) % Plt Count 631 H (140-440) X 10*3/uL MPV 9.3 L (9.5-12.2) fL Immature Gran # 0.05 H (0.00-0.04) X 10*3/uL Neutrophils # 7.83 H (1.80-7.70) X 10*3/uL Carbon Dioxide 29.9 H (20.0-27.5) mmol/L Anion Gap 9.90 L (10.00-18.00) mmol/L Glucose (70-110) mg/dL POC Glucose (mg/dL) 160 H (75-99) mg/dL Calcium (8.7-10.3) mg/dL Total Bilirubin <0.20 L (0.30-1.20) mg/dL ALT 7 L (10-49) U/L Total Protein (6.2-8.2) g/dL Albumin 3.0 L (3.8-4.9) g/dL Globulin 3.4 H (1.6-3.3) g/dL Albumin/Globulin Ratio 0.88 L (1.60-3.17) g/dL 02/17/21 02/17/21 02/18/21 Range/Units 17:28 20:42 01:29 WBC (4.50-10.00) X 10*3/uL RBC (4.40-5.60) X 10*6/uL Hgb (13.0-17.0) g/dL Hct (39.6-50.0) % MCV (80.0-97.0) fL MCH (27.0-32.0) pg MCHC (32.0-37.0) g/dL RDW (11.5-14.5) % Plt Count (140-440) X 10*3/uL MPV (9.5-12.2) fL Immature Gran # (0.00-0.04) X 10*3/uL Neutrophils # (1.80-7.70) X 10*3/uL Carbon Dioxide (20.0-27.5) mmol/L Anion Gap (10.00-18.00) mmol/L Glucose (70-110) mg/dL POC Glucose (mg/dL) 132 H 111 H 161 H (75-99) mg/dL Calcium (8.7-10.3) mg/dL Total Bilirubin (0.30-1.20) mg/dL ALT (10-49) U/L Total Protein (6.2-8.2) g/dL Albumin (3.8-4.9) g/dL Globulin (1.6-3.3) g/dL Albumin/Globulin Ratio (1.60-3.17) g/dL 02/18/21 02/18/21 02/18/21 Range/Units 05:30 05:30 07:36 WBC (4.50-10.00) X 10*3/uL RBC 3.62 L (4.40-5.60) X 10*6/uL Hgb 8.5 L (13.0-17.0) g/dL Hct 28.0 L (39.6-50.0) % MCV 77.2 L (80.0-97.0) fL MCH 23.5 L (27.0-32.0) pg MCHC 30.4 L (32.0-37.0) g/dL RDW 19.9 H (11.5-14.5) % Plt Count 613 H (140-440) X 10*3/uL MPV (9.5-12.2) fL Immature Gran # (0.00-0.04) X 10*3/uL Neutrophils # (1.80-7.70) X 10*3/uL Carbon Dioxide 28.6 H (20.0-27.5) mmol/L Anion Gap 8.40 L (10.00-18.00) mmol/L Glucose 209 H (70-110) mg/dL POC Glucose (mg/dL) 280 H (75-99) mg/dL Calcium 8.5 L (8.7-10.3) mg/dL Total Bilirubin <0.20 L (0.30-1.20) mg/dL ALT 6 L (10-49) U/L Total Protein 5.9 L (6.2-8.2) g/dL Albumin 2.8 L (3.8-4.9) g/dL Globulin (1.6-3.3) g/dL Albumin/Globulin Ratio 0.90 L (1.60-3.17) g/dL Microbiology - Last 24 Hours (Table) 02/12/21 22:34 Blood Culture - Preliminary Blood No Growth after 120 hours Assessment and Plan Plan: Bilateral lower extremities cellulitis, with open ulcer on the bottom of the right foot. Status post debridement Sepsis as evidenced by leukocytosis, white blood count 28.8 on presentation, blood cultures negative so far. White blood cell is trending down Acute metabolic acidosis, Hyponatremia, sodium 127 on presentation improved to 134 today Evidence of anemia hemoglobin 6.6 1 unit of red blood cell transfusion was ordered GI workup requested. Underlying history of diabetes mellitus, poorly controlled hemoglobin A1c 14.7, patient was counseled in length in regards to taking insulin at home Underlying history of peripheral neuropathy Underlying history of seizure disorder Underlying history of gastroesophageal reflux disease Underlying history of hyperlipidemia Pulmonary nodule. Pulmonary service is consulted Elevated d-dimer. CTA negative for pulmonary embolism. Venous Doppler negative for DVT Anemia hemoglobin is down to 6.6. Status post 1 unit PRBC transfusion. Surgical services have been consulted plans for upper and lower scopes on 02/19/2021 At this time patient is admitted to medical floor Patient remains on IV antibiotics Infectious disease and vascular surgery following Pulmonary service is consulted Status post debridement on 02/14/2021 Tentative plans for EGD and colonoscopy with Dr. araya on 02/19/2021 Social work following for discharge planning patient will likely occur ECF placement Repeat labs in a.m.
[2021-02-18 20:57] LABS: Glucose,Whole Blood 113 mg/dL (75-99)
[2021-02-18] MEDS: ATORVASTATIN 20 MG TAB PO SCH (21:18)
[2021-02-18] MEDS: LACTATED RINGERS 1,000 ML IV SCH (21:19)
--- NOTE | 2021-02-18 22:20 | PN ---
PROGRESS NOTE DATE OF SERVICE: 02/18/2021 REASON FOR FOLLOWUP: Bilateral diabetic foot ulcer and cellulitis. INTERVAL HISTORY: Patient is afebrile. The patient is breathing comfortably. Denies having any chest pain, shortness of breath or cough. No abdominal pain or pain to the bilateral foot wound area. PHYSICAL EXAMINATION: Blood pressure is 149/90 87, pulse of 80, temperature 98. He is 95% on room air. General description is a middle-aged male lying in bed in no distress. Respiratory system: Unlabored breathing. Clear to auscultation anteriorly. Heart S1, S2. Regular rate and rhythm. Abdomen soft, no tenderness. Right foot have significant slough tissue in left posterior heel wound with minimal slough tissue, surrounding redness is decreased. LABS: No new labs have been obtained today. DIAGNOSTIC IMPRESSION AND PLAN: Patient with bilateral diabetic foot wound, especially to the right foot plantar aspect, status post debridement. Still has significant amount of slough tissue. Local care will be switched over to Carleneyl, on empiric cefazolin to continue and monitor clinical course closely. MMODL / IJN: [id number] /
[2021-02-19 02:20] LABS: Glucose,Whole Blood 74 mg/dL (75-99)
[2021-02-19 05:03] LABS: Anisocytosis Moderate; Basophils % (A) 0 %; Eosinophils # (A) 0.1 k/uL (0-0.7); Eosinophils % (A) 1 %; HCT 28.2 % (39.0-53.0); HGB 8.4 gm/dL (13.0-17.5); Hypochromasia Marked; Lymphocytes # (A) 1.3 k/uL (1.0-4.8); Lymphocytes % (A) 17 %; MCH 23.6 pg (25.0-35.0); MCHC 29.9 g/dL (31.0-37.0); Mean Platelet Volume 6.5; Microcytosis Slight; Monocytes # (A) 0.4 k/uL (0-1.0); Monocytes % (A) 5 %; Neutrophils # (A) 5.6 k/uL (1.3-7.7); Neutrophils % (A) 76 %; Platelet Count 626 k/uL (150-450); Poikilocytosis Slight; RBC 3.56 m/uL (4.30-5.90); RDW 20.8 % (11.5-15.5); WBC 7.4 k/uL (3.8-10.6)
[2021-02-19 05:13] LABS: African American GFR (CKD) >90 (>60 ml/min/1.73 sqM); Anion Gap 10 mmol/L; Blood Urea Nitrogen 6 mg/dL (9-20); Carbon Dioxide 28 mmol/L (22-30); Chloride 98 mmol/L (98-107); Glucose 96 mg/dL (74-99); Non-African American GFR(CKD) >90 (>60 ml/min/1.73 sqM); Potassium 4.1 mmol/L (3.5-5.1); Sodium 136 mmol/L (137-145)
[2021-02-19 07:17] LABS: Glucose,Whole Blood 167 mg/dL (75-99)
[2021-02-19] MEDS: INSULIN ASPART (NovoLOG) 100 UNIT/ML VIAL SQ SCH ×4 (07:47→21:29)
[2021-02-19] MEDS: MUPIROCIN 2% OINT 22 GM TUBE TOPICAL SCH (07:50)
[2021-02-19] MEDS: ENOXAPARIN 40 MG/0.4 ML SYRINGE SQ SCH (07:50)
[2021-02-19] MEDS: PANTOPRAZOLE 40 MG TABLET PO SCH (07:50)
[2021-02-19] MEDS: PREGABALIN 50 MG CAP PO SCH ×4 (07:51→20:51)
[2021-02-19] MEDS: DILANTIN 30 MG PO SCH ×2 (07:51→20:52)
[2021-02-19] MEDS: PIOGLITAZONE 15 MG TAB PO SCH (07:54)
[2021-02-19] MEDS: INSULIN DETEMIR (LEVEMIR) 100 UNIT/ML SYR SQ SCH (07:54)
[2021-02-19 12:24] LABS: Glucose,Whole Blood 245 mg/dL (75-99)
[2021-02-19] MEDS: SODIUM CHLORIDE 0.9% 1,000 ML IV SCH ×2 (12:49→21:57)
--- NOTE | 2021-02-19 13:21 | PN ---
PROGRESS NOTE DATE OF SERVICE: 02/19/2021 REASON FOR FOLLOWUP: Right foot plantar and left posterior heel wound. INTERVAL HISTORY: The patient is afebrile. The patient is currently breathing comfortably. Denies having any chest pain, shortness of breath or cough. No abdominal pain or any worsening pain in the foot and leg wound areas. PHYSICAL EXAMINATION: Blood pressure 145/78 with a pulse of 81, temperature 98.3. He is 99% on 2 L nasal cannula. General description is a middle-aged male lying in bed in no distress. Respiratory system: Unlabored breathing. Clear to auscultation anteriorly. Heart S1, S2. Regular rate and rhythm. Abdomen soft, no tenderness. Wounds are currently dressed. No obvious drainage on the dressing. LABS: Hemoglobin is 8.4, white count 7.4, creatinine 0.40. DIAGNOSTIC IMPRESSION AND PLAN: Patient with a right foot plantar and left posterior heel wound, status post debridement. Culture with Lacie, which is more likely a colonizer. Continue cefazolin. Local wound care with Santyl. Keep the area off pressure. MMODL / IJN: [id number] /
--- NOTE | 2021-02-19 17:39 | P.PN ---
Subjective Progress Note Date: 02/19/21 Pietro Ryder, is a 60 year-old male came in with complaints of for redness and cellulitis of the left lower extremity patient has a callus and skin breakdown on the plantar aspect for the first metatarsal area. Patient does have leukocytosis without any fever denied any history of MRSA. Patient is also found to have some anion gap are do not have any lactic acid levels available at this time patient has some acetone in the urine can be starvation ketosis and patient was believed to have DKA patient received IV fluids patient's serum sodium was low at 129 improved with IV fluids and correction of blood glucose. Patient is still receiving IV fluids at this time. Patient appears to diabetic neuropathy and is on Lyrica. he does follow up with podiatric On 02/11/2021 patient was seen and examined on the medical floor, he is alert and oriented 3 in no apparent distress, he is feeling better, he still has bilateral lower extremity erythema and tenderness there is an open ulcer on the bottom of the right foot otherwise patient denies any complaints there is no fever or chills no headache or dizziness no chest pain no shortness of breath no cough no nausea or vomiting no abdominal pain no diarrhea and no urinary symptoms On 02/12/2021 patient was seen and examined on the medical floor, he is alert and oriented 3 he is still complaining of bilateral lower extremity erythema and tenderness there is an open ulcer on the bottom of the right foot otherwise patient denies any complaints there is no fever or chills no headache or dizziness no chest pain no shortness of breath no cough no nausea or vomiting no abdominal pain no diarrhea and no urinary symptoms. Vascular surgery consult requested. On 02/13/2021 patient's alert and oriented 3. D-dimer completed at night which was elevated at 2.01 CTA of the chest was performed showing no pulmonary embolism moderate bilateral pleural effusions with comprehensive atelectasis and 7 mm nodule in the right upper lobe possibly infectious versus inflammatory. Venous Doppler also completed showing negative for DVT. Patient remains on IV cefazolin. Vascular surgery and infectious disease services following. Will consult pulmonary services for nodule seen on CTA scan. Patient is complaining of some lower extremity tenderness. Patient denies chest pain or shortness breath. Patient denies nausea vomiting or diarrhea. Patient denies any urinary burning or frequency On 02/14/2021 patient was seen and examined on the medical floor, he is alert and oriented 3 he is still complaining of bilateral lower extremity erythema and tenderness there is an open ulcer on the bottom of the right foot otherwise patient denies any complaints there is no fever or chills no headache or dizziness no chest pain no shortness of breath no cough no nausea or vomiting no abdominal pain no diarrhea and no urinary symptoms. Vascular surgery consult following, patient scheduled for wound debridement today. On 02/15/2021 patient's alert and oriented 3. Patient is status post debridement with wound VAC placement per Dr. Olson. Patient is currently resting comfortably in bed. Patient remains on IV antibiotics. Globin low at 7.2 we'll order dose of IV iron and folate and B12 levels. Patient denies chest pain or shortness breath. Patient denies nausea vomiting or diarrhea. Patient denies any urinary burning or frequency On 02/16/2021atient was seen and examined on the medical floor, he is alert and oriented x 3 in no distress, he denies any complaints there is no fever or chills no headache or dizziness no chest pain no shortness of breath no palpitation no cough no nausea or vomiting no abdominal pain no diarrhea no blood in the stools no burning with urination no frequency or urgency and no hematuria, there is no weakness or numbness in any of the extremities no change in vision speech or gait. Patient developed worsening anemia despite treatment with IV iron yesterday his hemoglobin dropped today to 6.61 unit of red blood cell transfusion was ordered and surgical consultation was requested for gastro intestinal evaluation regarding anemia, GI service is not available this weekend. On 02/17/2021 patient's alert and oriented 3 currently resting comfortably in bed. Surgical services were consulted for anemia. Plans for upper and lower GI scopes for 02/19/2021. Labs currently pending for this a.m. patient did receive 1 unit of PRBCs yesterday. Patient denies chest pain or shortness of breath. Patient denies nausea vomiting or diarrhea. Patient denies any urinary burning or frequency. Per nursing staff no signs of blood in stool patient did report to have loose stools which has been an ongoing issue for him for multiple years. On 02/18/2021 patient was seen and examined on the medical floor he is alert and oriented 3 in no apparent distress patient had anemia requiring red blood cell transfusion, surgical consultation was requested for EGD and colonoscopy, as there was no gastroenterology coverage over the weekend, patient is complaining of pain in the bottom of his right foot otherwise he denies any complaints at this time there is no fever or chills no headache or dizziness no chest pain no shortness of breath no cough no nausea or vomiting no abdominal pain no diarrhea and no urinary symptoms On 02/19/2021 patient was seen and examined on the medical floor he is alert and oriented 3 in no apparent distress he was not able to tolerate GI prep yesterday due to nausea and vomiting. At this time GI workup is being postponed until per surgery, otherwise patient is doing well he is complaining of bilateral lower extremity pain otherwise he denies any complaints there is no fever or chills no headache or dizziness no chest pain no shortness of breath no cough no nausea or vomiting no abdominal pain no diarrhea and no urinary symptoms Objective - Vital Signs Vital signs: Vital Signs Temp 98.3 F 02/19/21 05:00 Pulse 81 02/19/21 05:00 Resp 20 02/19/21 05:00 BP 145/78 02/19/21 05:00 Pulse Ox 99 02/19/21 05:00 Intake & Output 02/18/21 02/19/21 02/19/21 18:59 06:59 18:59 Intake Total 2800 950 Balance 2800 950 Intake: Intake, IV Titration 1000 950 Amount Sodium Chloride 0.9% 1, 900 900 000 ml @ 75 mls/hr IV . [id number] [facility] Rx#:[id number] ceFAZolin 2 gm In Sodium 100 50 Chloride 0.9% 50 ml @ 100 mls/hr IVPB Q8HR [facility] Rx# :[id number] Oral 1800 Other: # Voids 6 # Bowel Movements 6 1 - Exam In general patient is alert and oriented x 3 in no distress HEENT head normocephalic and atraumatic Neck is supple no JVD no goiter no lymphadenopathy no carotid bruit Chest examination is clear to auscultation no crackles no wheezing Cardiac exam reveals regular heart sounds S1 and S2 no gallops no murmurs Abdomen is soft nontender no organomegaly with normal bowel sounds Extremity exam reveals no edema, there is bilateral lower extremity erythema and open ulcer on the bottom of the right foot, patient wearing bilateral protective boots Neurological examination reveals no gross focal deficits - Labs CBC & Chem 7: 02/19/21 04:24 02/19/21 04:24 Labs: Abnormal Lab Results - Last 24 Hours (Table) 02/18/21 02/18/21 02/19/21 Range/Units 17:20 20:52 02:07 RBC (4.30-5.90) m/uL Hgb (13.0-17.5) gm/dL Hct (39.0-53.0) % MCV (80.0-100.0) fL MCH (25.0-35.0) pg MCHC (31.0-37.0) g/dL RDW (11.5-15.5) % Plt Count (150-450) k/uL Sodium (137-145) mmol/L BUN (9-20) mg/dL Creatinine (0.66-1.25) mg/dL POC Glucose (mg/dL) 48 L 113 H 74 L (75-99) mg/dL Calcium (8.4-10.2) mg/dL 02/19/21 02/19/21 02/19/21 Range/Units 04:24 04:24 07:16 RBC 3.56 L (4.30-5.90) m/uL Hgb 8.4 L (13.0-17.5) gm/dL Hct 28.2 L (39.0-53.0) % MCV 79.0 L (80.0-100.0) fL MCH 23.6 L (25.0-35.0) pg MCHC 29.9 L (31.0-37.0) g/dL RDW 20.8 H (11.5-15.5) % Plt Count 626 H (150-450) k/uL Sodium 136 L (137-145) mmol/L BUN 6 L (9-20) mg/dL Creatinine 0.40 L (0.66-1.25) mg/dL POC Glucose (mg/dL) 167 H (75-99) mg/dL Calcium 8.0 L (8.4-10.2) mg/dL 02/19/21 Range/Units 12:20 RBC (4.30-5.90) m/uL Hgb (13.0-17.5) gm/dL Hct (39.0-53.0) % MCV (80.0-100.0) fL MCH (25.0-35.0) pg MCHC (31.0-37.0) g/dL RDW (11.5-15.5) % Plt Count (150-450) k/uL Sodium (137-145) mmol/L BUN (9-20) mg/dL Creatinine (0.66-1.25) mg/dL POC Glucose (mg/dL) 245 H (75-99) mg/dL Calcium (8.4-10.2) mg/dL Microbiology - Last 24 Hours (Table) 02/12/21 22:34 Blood Culture - Final Blood No Growth after 144 hours 02/14/21 15:45 Anaerobic Culture - Final Foot - Right Assessment and Plan Plan: Bilateral lower extremities cellulitis, with open ulcer on the bottom of the right foot. Status post debridement Sepsis as evidenced by leukocytosis, white blood count 28.8 on presentation, blood cultures negative so far. White blood cell is trending down Acute metabolic acidosis, Hyponatremia, sodium 127 on presentation improved to 134 today Evidence of anemia hemoglobin 6.6 1 unit of red blood cell transfusion was ordered GI workup requested. Underlying history of diabetes mellitus, poorly controlled hemoglobin A1c 14.7, patient was counseled in length in regards to taking insulin at home Underlying history of peripheral neuropathy Underlying history of seizure disorder Underlying history of gastroesophageal reflux disease Underlying history of hyperlipidemia Pulmonary nodule. Pulmonary service is consulted Elevated d-dimer. CTA negative for pulmonary embolism. Venous Doppler negative for DVT Anemia hemoglobin is down to 6.6. Status post 1 unit PRBC transfusion. Surgical services have been consulted plans for upper and lower scopes on , 02/19/2021 At this time patient is admitted to medical floor Patient remains on IV antibiotics Infectious disease and vascular surgery following Pulmonary service is consulted Status post debridement on 02/14/2021 Tentative plans for EGD and colonoscopy with Dr. araya on 02/19/2021 Social work following for discharge planning patient will likely occur ECF placement Repeat labs in a.m.
[2021-02-19 17:53] LABS: Glucose,Whole Blood 193 mg/dL (75-99)
[2021-02-19] MEDS: COLLAGENASE 250 UNIT/GM OINTMENT 30 GM TUBE TOPICAL SCH (18:09)
[2021-02-19] MEDS: ATORVASTATIN 20 MG TAB PO SCH (20:51)
[2021-02-19] MEDS: LACTATED RINGERS 1,000 ML IV SCH (20:53)
[2021-02-19 21:15] LABS: Glucose,Whole Blood 197 mg/dL (75-99)
[2021-02-20 02:14] LABS: Glucose,Whole Blood 119 mg/dL (75-99)
[2021-02-20 07:06] LABS: Glucose,Whole Blood 186 mg/dL (75-99)
[2021-02-20] MEDS: ENOXAPARIN 40 MG/0.4 ML SYRINGE SQ SCH (09:31)
[2021-02-20] MEDS: PANTOPRAZOLE 40 MG TABLET PO SCH (09:31)
[2021-02-20] MEDS: INSULIN DETEMIR (LEVEMIR) 100 UNIT/ML SYR SQ SCH (09:31)
[2021-02-20] MEDS: INSULIN ASPART (NovoLOG) 100 UNIT/ML VIAL SQ SCH ×4 (09:31→21:30)
[2021-02-20] MEDS: DILANTIN 30 MG PO SCH ×2 (09:32→21:34)
[2021-02-20] MEDS: PIOGLITAZONE 15 MG TAB PO SCH (09:32)
[2021-02-20] MEDS: PREGABALIN 50 MG CAP PO SCH ×3 (09:33→21:33)
[2021-02-20 09:48] LABS: Anisocytosis Moderate; Basophils % (A) 1 %; Eosinophils # (A) 0.1 k/uL (0-0.7); Eosinophils % (A) 1 %; HCT 34.2 % (39.0-53.0); HGB 10.1 gm/dL (13.0-17.5); Hypochromasia Marked; Lymphocytes # (A) 1.3 k/uL (1.0-4.8); Lymphocytes % (A) 18 %; MCH 23.2 pg (25.0-35.0); MCHC 29.6 g/dL (31.0-37.0); MCV 78.6 fL (80.0-100.0); Mean Platelet Volume 6.6; Microcytosis Slight; Monocytes # (A) 0.3 k/uL (0-1.0); Monocytes % (A) 4 %; Neutrophils # (A) 5.4 k/uL (1.3-7.7); Neutrophils % (A) 75 %; Platelet Count 748 k/uL (150-450); Poikilocytosis Slight; RBC 4.35 m/uL (4.30-5.90); RDW 20.3 % (11.5-15.5); WBC 7.1 k/uL (3.8-10.6)
--- NOTE | 2021-02-20 12:32 | P.PN ---
Subjective Progress Note Date: 02/20/21 Pietro Ryder, is a 60 year-old male came in with complaints of for redness and cellulitis of the left lower extremity patient has a callus and skin breakdown on the plantar aspect for the first metatarsal area. Patient does have leukocytosis without any fever denied any history of MRSA. Patient is also found to have some anion gap are do not have any lactic acid levels available at this time patient has some acetone in the urine can be starvation ketosis and patient was believed to have DKA patient received IV fluids patient's serum sodium was low at 129 improved with IV fluids and correction of blood glucose. Patient is still receiving IV fluids at this time. Patient appears to diabetic neuropathy and is on Lyrica. he does follow up with podiatric On 02/11/2021 patient was seen and examined on the medical floor, he is alert and oriented 3 in no apparent distress, he is feeling better, he still has bilateral lower extremity erythema and tenderness there is an open ulcer on the bottom of the right foot otherwise patient denies any complaints there is no fever or chills no headache or dizziness no chest pain no shortness of breath no cough no nausea or vomiting no abdominal pain no diarrhea and no urinary symptoms On 02/12/2021 patient was seen and examined on the medical floor, he is alert and oriented 3 he is still complaining of bilateral lower extremity erythema and tenderness there is an open ulcer on the bottom of the right foot otherwise patient denies any complaints there is no fever or chills no headache or dizziness no chest pain no shortness of breath no cough no nausea or vomiting no abdominal pain no diarrhea and no urinary symptoms. Vascular surgery consult requested. On 02/13/2021 patient's alert and oriented 3. D-dimer completed at night which was elevated at 2.01 CTA of the chest was performed showing no pulmonary embolism moderate bilateral pleural effusions with comprehensive atelectasis and 7 mm nodule in the right upper lobe possibly infectious versus inflammatory. Venous Doppler also completed showing negative for DVT. Patient remains on IV cefazolin. Vascular surgery and infectious disease services following. Will consult pulmonary services for nodule seen on CTA scan. Patient is complaining of some lower extremity tenderness. Patient denies chest pain or shortness breath. Patient denies nausea vomiting or diarrhea. Patient denies any urinary burning or frequency On 02/14/2021 patient was seen and examined on the medical floor, he is alert and oriented 3 he is still complaining of bilateral lower extremity erythema and tenderness there is an open ulcer on the bottom of the right foot otherwise patient denies any complaints there is no fever or chills no headache or dizziness no chest pain no shortness of breath no cough no nausea or vomiting no abdominal pain no diarrhea and no urinary symptoms. Vascular surgery consult following, patient scheduled for wound debridement today. On 02/15/2021 patient's alert and oriented 3. Patient is status post debridement with wound VAC placement per Dr. Olson. Patient is currently resting comfortably in bed. Patient remains on IV antibiotics. Globin low at 7.2 we'll order dose of IV iron and folate and B12 levels. Patient denies chest pain or shortness breath. Patient denies nausea vomiting or diarrhea. Patient denies any urinary burning or frequency On 02/16/2021atient was seen and examined on the medical floor, he is alert and oriented x 3 in no distress, he denies any complaints there is no fever or chills no headache or dizziness no chest pain no shortness of breath no palpitation no cough no nausea or vomiting no abdominal pain no diarrhea no blood in the stools no burning with urination no frequency or urgency and no hematuria, there is no weakness or numbness in any of the extremities no change in vision speech or gait. Patient developed worsening anemia despite treatment with IV iron yesterday his hemoglobin dropped today to 6.61 unit of red blood cell transfusion was ordered and surgical consultation was requested for gastro intestinal evaluation regarding anemia, GI service is not available this weekend. On 02/17/2021 patient's alert and oriented 3 currently resting comfortably in bed. Surgical services were consulted for anemia. Plans for upper and lower GI scopes for 02/19/2021. Labs currently pending for this a.m. patient did receive 1 unit of PRBCs yesterday. Patient denies chest pain or shortness of breath. Patient denies nausea vomiting or diarrhea. Patient denies any urinary burning or frequency. Per nursing staff no signs of blood in stool patient did report to have loose stools which has been an ongoing issue for him for multiple years. On 02/18/2021 patient was seen and examined on the medical floor he is alert and oriented 3 in no apparent distress patient had anemia requiring red blood cell transfusion, surgical consultation was requested for EGD and colonoscopy, as there was no gastroenterology coverage over the weekend, patient is complaining of pain in the bottom of his right foot otherwise he denies any complaints at this time there is no fever or chills no headache or dizziness no chest pain no shortness of breath no cough no nausea or vomiting no abdominal pain no diarrhea and no urinary symptoms On 02/19/2021 patient was seen and examined on the medical floor he is alert and oriented 3 in no apparent distress he was not able to tolerate GI prep yesterday due to nausea and vomiting. At this time GI workup is being postponed until per surgery, otherwise patient is doing well he is complaining of bilateral lower extremity pain otherwise he denies any complaints there is no fever or chills no headache or dizziness no chest pain no shortness of breath no cough no nausea or vomiting no abdominal pain no diarrhea and no urinary symptoms On 02/20/2021 patient's alert and oriented 3. Tentative plans for EGD and Coloscopy tomorrow 02/21/21 hemoglobin remained stable at 10.1. Patient denies chest pain or shortness breath. Patient denies diarrhea. Patient denies any urinary frequency Objective - Vital Signs Vital signs: Vital Signs Temp 98 F 02/20/21 05:00 Pulse 87 02/20/21 05:00 Resp 15 02/20/21 05:00 BP 136/78 02/20/21 05:00 Pulse Ox 98 02/20/21 05:00 Intake & Output 02/19/21 02/20/21 02/20/21 18:59 06:59 18:59 Intake Total 100 540 Output Total 800 Balance 100 -260 Intake: Intake, IV Titration 100 Amount ceFAZolin 2 gm In Sodium 100 Chloride 0.9% 50 ml @ 100 mls/hr IVPB Q8HR [facility] Rx# :[id number] Oral 540 Output: Urine 800 Other: Voiding Method Toilet Urinal # Bowel Movements 3 - Exam In general patient is alert and oriented x 3 in no distress HEENT head normocephalic and atraumatic Neck is supple no JVD no goiter no lymphadenopathy no carotid bruit Chest examination is clear to auscultation no crackles no wheezing Cardiac exam reveals regular heart sounds S1 and S2 no gallops no murmurs Abdomen is soft nontender no organomegaly with normal bowel sounds Extremity exam reveals no edema, there is bilateral lower extremity erythema and open ulcer on the bottom of the right foot, patient wearing bilateral protective boots Neurological examination reveals no gross focal deficits - Labs CBC & Chem 7: 02/20/21 09:08 02/19/21 04:24 Labs: Abnormal Lab Results - Last 24 Hours (Table) 02/19/21 02/19/21 02/20/21 Range/Units 17:51 20:40 02:10 Hgb (13.0-17.5) gm/dL Hct (39.0-53.0) % MCV (80.0-100.0) fL MCH (25.0-35.0) pg MCHC (31.0-37.0) g/dL RDW (11.5-15.5) % Plt Count (150-450) k/uL POC Glucose (mg/dL) 193 H 197 H 119 H (75-99) mg/dL 02/20/21 02/20/21 Range/Units 07:04 09:08 Hgb 10.1 L (13.0-17.5) gm/dL Hct 34.2 L (39.0-53.0) % MCV 78.6 L (80.0-100.0) fL MCH 23.2 L (25.0-35.0) pg MCHC 29.6 L (31.0-37.0) g/dL RDW 20.3 H (11.5-15.5) % Plt Count 748 H (150-450) k/uL POC Glucose (mg/dL) 186 H (75-99) mg/dL Assessment and Plan Plan: Bilateral lower extremities cellulitis, with open ulcer on the bottom of the right foot. Status post debridement Sepsis as evidenced by leukocytosis, white blood count 28.8 on presentation, blood cultures negative so far. White blood cell is trending down Acute metabolic acidosis, Hyponatremia, sodium 127 on presentation improved to 134 today Evidence of anemia hemoglobin 6.6 1 unit of red blood cell transfusion was ordered GI workup requested. Underlying history of diabetes mellitus, poorly controlled hemoglobin A1c 14.7, patient was counseled in length in regards to taking insulin at home Underlying history of peripheral neuropathy Underlying history of seizure disorder Underlying history of gastroesophageal reflux disease Underlying history of hyperlipidemia Pulmonary nodule. Pulmonary service is consulted Elevated d-dimer. CTA negative for pulmonary embolism. Venous Doppler negative for DVT Anemia hemoglobin is down to 6.6. Status post 1 unit PRBC transfusion. Surgical services have been consulted plans for upper and lower scopes on 02/21/2021 At this time patient is admitted to medical floor Patient remains on IV antibiotics Infectious disease and vascular surgery following Pulmonary service is consulted Status post debridement on 02/14/2021 Tentative plans for EGD and colonoscopy with Dr. araya on 02/21/2021 Social work following for discharge planning patient will likely occur ECF placement Repeat labs in a.m.
[2021-02-20 12:58] LABS: Glucose,Whole Blood 170 mg/dL (75-99)
--- NOTE | 2021-02-20 13:58 | P.PN ---
Subjective Progress Note Date: 02/20/21 CHIEF COMPLAINT: Anemia HISTORY OF PRESENT ILLNESS: Surgical service is following in regards to patient's anemia. He is hospitalized with cellulitis and leg wounds and has undergone debridement. Patient's hemoglobin is trending upwards. Hemoglobin is now 10.1. Patient reports having multiple bowel movements. Stools are still not clear. No blood reported in the stools. Afebrile. PHYSICAL EXAM: VITAL SIGNS: Reviewed. GENERAL: Well-developed in no acute distress. HEENT: No sclera icterus. Extraocular movements grossly intact. Moist buccal mucosa. Head is atraumatic, normocephalic. ABDOMEN: Soft. Nondistended. Nontender. NEUROLOGIC: Alert and oriented. Cranial nerves II through XII grossly intact. ASSESSMENT: 1. Anemia PLAN: -Patient scheduled for EGD and colonoscopy on , 02/21/2021 -Nothing by mouth after midnight -We'll give mag of citrate today [employer] note has been reviewed by physician. Signing provider agrees with the documented findings, assessment, and plan of care. Objective - Vital Signs Vital signs: Vital Signs Temp 98.1 F 02/20/21 13:00 Pulse 89 02/20/21 13:00 Resp 16 02/20/21 13:00 BP 138/72 02/20/21 13:00 Pulse Ox 98 02/20/21 05:00 Intake & Output 02/19/21 02/20/21 02/20/21 18:59 06:59 18:59 Intake Total 100 540 Output Total 800 Balance 100 -260 Intake: Intake, IV Titration 100 Amount ceFAZolin 2 gm In Sodium 100 Chloride 0.9% 50 ml @ 100 mls/hr IVPB Q8HR [facility] Rx# :[id number] Oral 540 Output: Urine 800 Other: Voiding Method Toilet Urinal # Bowel Movements 3 - Labs CBC & Chem 7: 02/20/21 09:08 02/19/21 04:24 Labs: Abnormal Lab Results - Last 24 Hours (Table) 02/19/21 02/19/21 02/20/21 Range/Units 17:51 20:40 02:10 Hgb (13.0-17.5) gm/dL Hct (39.0-53.0) % MCV (80.0-100.0) fL MCH (25.0-35.0) pg MCHC (31.0-37.0) g/dL RDW (11.5-15.5) % Plt Count (150-450) k/uL POC Glucose (mg/dL) 193 H 197 H 119 H (75-99) mg/dL 02/20/21 02/20/21 02/20/21 Range/Units 07:04 09:08 12:56 Hgb 10.1 L (13.0-17.5) gm/dL Hct 34.2 L (39.0-53.0) % MCV 78.6 L (80.0-100.0) fL MCH 23.2 L (25.0-35.0) pg MCHC 29.6 L (31.0-37.0) g/dL RDW 20.3 H (11.5-15.5) % Plt Count 748 H (150-450) k/uL POC Glucose (mg/dL) 186 H 170 H (75-99) mg/dL
[2021-02-20] MEDS ORDERED: MAGNESIUM CITRATE 296 ML BOTTLE PO ONE (14:00)
[2021-02-20] MEDS: SODIUM CHLORIDE 0.9% 1,000 ML IV SCH (14:11)
[2021-02-20] MEDS: COLLAGENASE 250 UNIT/GM OINTMENT 30 GM TUBE TOPICAL SCH (14:51)
[2021-02-20 15:50] LABS: ALT 8 U/L (10-49); AST 12 U/L (14-35); African American GFR (CKD) 121.8 (60.0-200.0); Albumin 3.2 g/dL (3.8-4.9); Albumin/Globulin Ratio 0.94 (1.60-3.17); Alkaline Phosphatase 127 U/L (41-126); BUN/Creat Ratio 8.17 Ratio (12.00-20.00); Blood Urea Nitrogen 5.4 mg/dL (9.0-27.0); Chloride 96 mmol/L (96-109); Globulin 3.4 g/dL (1.6-3.3); Glucose 222 mg/dL (70-110); Non-African American GFR(CKD) 105.1 (60.0-200.0); Potassium 5.2 mmol/L (3.5-5.5); Sodium 137 mmol/L (135-145); Total Bilirubin <0.20 mg/dL (0.30-1.20); Total Protein 6.6 g/dL (6.2-8.2)
--- NOTE | 2021-02-20 16:02 | PN ---
PROGRESS NOTE DATE OF SERVICE: 02/20/2021 REASON FOR FOLLOWUP: Right ulcer on left posterior heel wound. INTERVAL HISTORY: Patient is afebrile. The patient denies having any chest pain. No shortness of breath or cough. No abdominal pain or pain to the right foot and left heel wound area. PHYSICAL EXAMINATION: Blood pressure 132/72 with a pulse of 79, temperature 98.1. He is 90% on room air. General description is a middle-aged male lying in bed in no distress. Respiratory system: Unlabored breathing, clear to auscultation anteriorly. Heart S1, S2. Regular rate and rhythm. Abdomen: Soft, no tenderness. are currently dressed. No obvious drainage on the dressing. LABS: Hemoglobin is 10.1, white count 7.1. DIAGNOSTIC IMPRESSION AND PLAN: Patient with right foot plantar wound status post debridement and left heel wound that has been debrided. Culture has been negative Cefazolin short course of oral antibiotic on discharge. Continue wound care with Santyl and monitor clinical course closely. MMODL / IJN: [id number] /
[2021-02-20 16:51] LABS: Glucose,Whole Blood 48 mg/dL (75-99)
[2021-02-20 17:13] LABS: Glucose,Whole Blood 64 mg/dL (75-99)
[2021-02-20 17:43] LABS: Glucose,Whole Blood 112 mg/dL (75-99)
[2021-02-20 20:38] LABS: Glucose,Whole Blood 105 mg/dL (75-99)
[2021-02-20] MEDS: ATORVASTATIN 20 MG TAB PO SCH (21:33)
[2021-02-21 01:15] LABS: Glucose,Whole Blood 46 mg/dL (75-99)
[2021-02-21 01:34] LABS: Glucose,Whole Blood 53 mg/dL (75-99)
[2021-02-21 01:58] LABS: Glucose,Whole Blood 76 mg/dL (75-99)
[2021-02-21 04:49] LABS: Glucose,Whole Blood 105 mg/dL (75-99)
[2021-02-21] MEDS: LACTATED RINGERS 1,000 ML IV SCH (04:53)
[2021-02-21] MEDS: SODIUM CHLORIDE 0.9% 1,000 ML IV SCH ×2 (04:53→14:19)
[2021-02-21 06:18] LABS: Anisocytosis Moderate; Basophils % (A) 0 %; Eosinophils # (A) 0.1 k/uL (0-0.7); Eosinophils % (A) 1 %; HCT 30.2 % (39.0-53.0); Hypochromasia Marked; Lymphocytes # (A) 1.3 k/uL (1.0-4.8); Lymphocytes % (A) 19 %; MCH 23.4 pg (25.0-35.0); MCV 78.2 fL (80.0-100.0); Mean Platelet Volume 6.5; Microcytosis Slight; Monocytes # (A) 0.4 k/uL (0-1.0); Monocytes % (A) 6 %; Neutrophils # (A) 5.2 k/uL (1.3-7.7); Neutrophils % (A) 73 %; Platelet Count 757 k/uL (150-450); Poikilocytosis Slight; RBC 3.86 m/uL (4.30-5.90); RDW 20.1 % (11.5-15.5); WBC 7.1 k/uL (3.8-10.6)
[2021-02-21 06:45] LABS: ALT <6 U/L (4-49); AST 16 U/L (17-59); African American GFR (CKD) >90 (>60 ml/min/1.73 sqM); Albumin 2.8 g/dL (3.5-5.0); Albumin/Globulin Ratio 0.8; Alkaline Phosphatase 99 U/L (38-126); Anion Gap 4 mmol/L; Blood Urea Nitrogen 4 mg/dL (9-20); Calcium 8.3 mg/dL (8.4-10.2); Carbon Dioxide 34 mmol/L (22-30); Chloride 99 mmol/L (98-107); Globulin 3.3 g/dL; Glucose 95 mg/dL (74-99); Non-African American GFR(CKD) >90 (>60 ml/min/1.73 sqM); Potassium 4.6 mmol/L (3.5-5.1); Sodium 137 mmol/L (137-145); Total Bilirubin <0.1 mg/dL (0.2-1.3); Total Protein 6.1 g/dL (6.3-8.2)
[2021-02-21 07:35] LABS: Glucose,Whole Blood 126 mg/dL (75-99)
[2021-02-21] MEDS: PANTOPRAZOLE 40 MG TABLET PO SCH (08:01)
[2021-02-21] MEDS: INSULIN DETEMIR (LEVEMIR) 100 UNIT/ML SYR SQ SCH ×2 (08:01→14:21)
[2021-02-21] MEDS: INSULIN ASPART (NovoLOG) 100 UNIT/ML VIAL SQ SCH ×4 (08:01→21:47)
[2021-02-21] MEDS: PIOGLITAZONE 15 MG TAB PO SCH ×2 (08:02→14:22)
[2021-02-21] MEDS: PREGABALIN 50 MG CAP PO SCH ×3 (08:02→21:49)
[2021-02-21] MEDS: ENOXAPARIN 40 MG/0.4 ML SYRINGE SQ SCH (08:03)
[2021-02-21] MEDS ORDERED: LACTATED RINGERS 1,000 ML IV SCH (08:07)
[2021-02-21] MEDS ORDERED: LIDOCAINE 1% (10MG/ML) FOR IV START INTRADERMA PRN (08:07)
[2021-02-21 12:58] LABS: Glucose,Whole Blood 280 mg/dL (75-99)
[2021-02-21] MEDS ORDERED: IV FLUID CONTINUATION 600 ML IV ONE (13:28)
[2021-02-21] MEDS ORDERED: PROPOFOL 10 MG/ML 20 ML VIAL IV ONE (13:30)
[2021-02-21] MEDS ORDERED: LIDOCAINE 1% INJ 10MG/ML (20 ML MDV) ONE (13:30)
--- NOTE | 2021-02-21 13:48 | P.OP ---
Date of Procedure: 02/21/21 Preoperative Diagnosis: Anemia GI bleed Postoperative Diagnosis: Antral gastritis Anesthesia: MAC Surgeon: Gerry Goznalez Pathology: other (Antrum) Condition: stable Disposition: PACU Description of Procedure: Patient's placed on the endoscopy table in the lateral position. He received IV sedation. The gastroscope placed oropharynx passed in the esophagus into the stomach. Scope then placed through the pylorus. First and second portion of the duodenum appeared normal. Scope was then brought back the antrum was mildly inflamed. A biopsies performed. The scope was then retroflexed and the remainder of the stomach appeared normal. There is no significant hiatal hernia. The GE junction was at 440 cm. The distal esophagus appeared normal. The proximal esophagus appeared normal. Scope withdrawn for patient. Next digital rectal exam was performed which revealed a large amount liquid stool. The flexible colonoscope was then placed patient anus passed throughout the colon. Scope was position of the right colon. However there was a large amount of liquid stool which prevented visualization of the colon. This point scope withdrawn. The remainder the ascending colon, transverse colon and descending colon appeared normal. The sigmoid colon appeared normal. There is known to any blood in the colon. The scope was withdrawn for patient. His presumed patient's anemia may be related to gastritis.
[2021-02-21] MEDS: DILANTIN 30 MG PO SCH ×2 (14:21→21:48)
[2021-02-21] MEDS: COLLAGENASE 250 UNIT/GM OINTMENT 30 GM TUBE TOPICAL SCH (14:22)
[2021-02-21 17:12] LABS: Glucose,Whole Blood 177 mg/dL (75-99)
--- NOTE | 2021-02-21 17:19 | P.PN ---
Subjective Progress Note Date: 02/21/21 Pietro Ryder, is a 60 year-old male came in with complaints of for redness and cellulitis of the left lower extremity patient has a callus and skin breakdown on the plantar aspect for the first metatarsal area. Patient does have leukocytosis without any fever denied any history of MRSA. Patient is also found to have some anion gap are do not have any lactic acid levels available at this time patient has some acetone in the urine can be starvation ketosis and patient was believed to have DKA patient received IV fluids patient's serum sodium was low at 129 improved with IV fluids and correction of blood glucose. Patient is still receiving IV fluids at this time. Patient appears to diabetic neuropathy and is on Lyrica. he does follow up with podiatric On 02/11/2021 patient was seen and examined on the medical floor, he is alert and oriented 3 in no apparent distress, he is feeling better, he still has bilateral lower extremity erythema and tenderness there is an open ulcer on the bottom of the right foot otherwise patient denies any complaints there is no fever or chills no headache or dizziness no chest pain no shortness of breath no cough no nausea or vomiting no abdominal pain no diarrhea and no urinary symptoms On 02/12/2021 patient was seen and examined on the medical floor, he is alert and oriented 3 he is still complaining of bilateral lower extremity erythema and tenderness there is an open ulcer on the bottom of the right foot otherwise patient denies any complaints there is no fever or chills no headache or dizziness no chest pain no shortness of breath no cough no nausea or vomiting no abdominal pain no diarrhea and no urinary symptoms. Vascular surgery consult requested. On 02/13/2021 patient's alert and oriented 3. D-dimer completed at night which was elevated at 2.01 CTA of the chest was performed showing no pulmonary embolism moderate bilateral pleural effusions with comprehensive atelectasis and 7 mm nodule in the right upper lobe possibly infectious versus inflammatory. Venous Doppler also completed showing negative for DVT. Patient remains on IV cefazolin. Vascular surgery and infectious disease services following. Will consult pulmonary services for nodule seen on CTA scan. Patient is complaining of some lower extremity tenderness. Patient denies chest pain or shortness breath. Patient denies nausea vomiting or diarrhea. Patient denies any urinary burning or frequency On 02/14/2021 patient was seen and examined on the medical floor, he is alert and oriented 3 he is still complaining of bilateral lower extremity erythema and tenderness there is an open ulcer on the bottom of the right foot otherwise patient denies any complaints there is no fever or chills no headache or dizziness no chest pain no shortness of breath no cough no nausea or vomiting no abdominal pain no diarrhea and no urinary symptoms. Vascular surgery consult following, patient scheduled for wound debridement today. On 02/15/2021 patient's alert and oriented 3. Patient is status post debridement with wound VAC placement per Dr. Olson. Patient is currently resting comfortably in bed. Patient remains on IV antibiotics. Globin low at 7.2 we'll order dose of IV iron and folate and B12 levels. Patient denies chest pain or shortness breath. Patient denies nausea vomiting or diarrhea. Patient denies any urinary burning or frequency On 02/16/2021atient was seen and examined on the medical floor, he is alert and oriented x 3 in no distress, he denies any complaints there is no fever or chills no headache or dizziness no chest pain no shortness of breath no palpitation no cough no nausea or vomiting no abdominal pain no diarrhea no blood in the stools no burning with urination no frequency or urgency and no hematuria, there is no weakness or numbness in any of the extremities no change in vision speech or gait. Patient developed worsening anemia despite treatment with IV iron yesterday his hemoglobin dropped today to 6.61 unit of red blood cell transfusion was ordered and surgical consultation was requested for gastro intestinal evaluation regarding anemia, GI service is not available this weekend. On 02/17/2021 patient's alert and oriented 3 currently resting comfortably in bed. Surgical services were consulted for anemia. Plans for upper and lower GI scopes for 02/19/2021. Labs currently pending for this a.m. patient did receive 1 unit of PRBCs yesterday. Patient denies chest pain or shortness of breath. Patient denies nausea vomiting or diarrhea. Patient denies any urinary burning or frequency. Per nursing staff no signs of blood in stool patient did report to have loose stools which has been an ongoing issue for him for multiple years. On 02/18/2021 patient was seen and examined on the medical floor he is alert and oriented 3 in no apparent distress patient had anemia requiring red blood cell transfusion, surgical consultation was requested for EGD and colonoscopy, as there was no gastroenterology coverage over the weekend, patient is complaining of pain in the bottom of his right foot otherwise he denies any complaints at this time there is no fever or chills no headache or dizziness no chest pain no shortness of breath no cough no nausea or vomiting no abdominal pain no diarrhea and no urinary symptoms On 02/19/2021 patient was seen and examined on the medical floor he is alert and oriented 3 in no apparent distress he was not able to tolerate GI prep yesterday due to nausea and vomiting. At this time GI workup is being postponed until per surgery, otherwise patient is doing well he is complaining of bilateral lower extremity pain otherwise he denies any complaints there is no fever or chills no headache or dizziness no chest pain no shortness of breath no cough no nausea or vomiting no abdominal pain no diarrhea and no urinary symptoms On 02/20/2021 patient's alert and oriented 3. Tentative plans for EGD and Coloscopy tomorrow 02/21/21 hemoglobin remained stable at 10.1. Patient denies chest pain or shortness breath. Patient denies diarrhea. Patient denies any urinary frequency On 02/21/2021 patient was seen and examined on the medical floor he is alert and oriented 3 in no apparent distress he denies any complaints at this time there is no fever or chills no headache or dizziness no chest pain no shortness of breath no cough no nausea or vomiting no abdominal pain no diarrhea no burning with urination no frequency or urgency and no hematuria. Patient had anemia requiring red blood cell transfusion during this admission. We are still awaiting EGD and colonoscopy. Patient should be transferred to a rehab center for IV antibiotic and rehabilitation afterwards. Objective - Vital Signs Vital signs: Vital Signs Temp 97.7 F 02/21/21 05:00 Pulse 82 02/21/21 05:00 Resp 18 02/21/21 05:00 BP 156/90 02/21/21 05:00 Pulse Ox 100 02/21/21 05:00 Intake & Output 02/20/21 02/21/21 02/21/21 18:59 06:59 18:59 Intake Total 1620 Output Total 2 Balance 1620 -2 Intake: Intake, IV Titration 1000 Amount Sodium Chloride 0.9% 1, 900 000 ml @ 75 mls/hr IV . [id number] [facility] Rx#:[id number] ceFAZolin 2 gm In Sodium 100 Chloride 0.9% 50 ml @ 100 mls/hr IVPB Q8HR [facility] Rx# :[id number] Oral 620 Output: Stool 2 Other: Voiding Method Toilet Toilet Urinal Urinal # Voids 4 - Exam In general patient is alert and oriented x 3 in no distress HEENT head normocephalic and atraumatic Neck is supple no JVD no goiter no lymphadenopathy no carotid bruit Chest examination is clear to auscultation no crackles no wheezing Cardiac exam reveals regular heart sounds S1 and S2 no gallops no murmurs Abdomen is soft nontender no organomegaly with normal bowel sounds Extremity exam reveals no edema, there is bilateral lower extremity erythema and open ulcer on the bottom of the right foot, patient wearing bilateral protective boots Neurological examination reveals no gross focal deficits - Labs CBC & Chem 7: 02/21/21 05:31 02/21/21 05:31 Labs: Abnormal Lab Results - Last 24 Hours (Table) 02/20/21 02/20/21 02/20/21 Range/Units 09:08 09:08 12:56 RBC (4.30-5.90) m/uL Hgb 10.1 L (13.0-17.5) gm/dL Hct 34.2 L (39.0-53.0) % MCV 78.6 L (80.0-100.0) fL MCH 23.2 L (25.0-35.0) pg MCHC 29.6 L (31.0-37.0) g/dL RDW 20.3 H (11.5-15.5) % Plt Count 748 H (150-450) k/uL Carbon Dioxide 28.0 H (20.0-27.5) mmol/L BUN 5.4 L (9.0-27.0) mg/dL Creatinine (0.66-1.25) mg/dL BUN/Creatinine Ratio 8.17 L (12.00-20.00) Ratio Glucose 222 H (70-110) mg/dL POC Glucose (mg/dL) 170 H (75-99) mg/dL Calcium (8.4-10.2) mg/dL Total Bilirubin <0.20 L (0.30-1.20) mg/dL AST 12 L (14-35) U/L ALT 8 L (10-49) U/L Alkaline Phosphatase 127 H (41-126) U/L Total Protein (6.3-8.2) g/dL Albumin 3.2 L (3.8-4.9) g/dL Globulin 3.4 H (1.6-3.3) g/dL Albumin/Globulin Ratio 0.94 L (1.60-3.17) g/dL 02/20/21 02/20/21 02/20/21 Range/Units 16:50 17:11 17:41 RBC (4.30-5.90) m/uL Hgb (13.0-17.5) gm/dL Hct (39.0-53.0) % MCV (80.0-100.0) fL MCH (25.0-35.0) pg MCHC (31.0-37.0) g/dL RDW (11.5-15.5) % Plt Count (150-450) k/uL Carbon Dioxide (20.0-27.5) mmol/L BUN (9.0-27.0) mg/dL Creatinine (0.66-1.25) mg/dL BUN/Creatinine Ratio (12.00-20.00) Ratio Glucose (70-110) mg/dL POC Glucose (mg/dL) 48 L 64 L 112 H (75-99) mg/dL Calcium (8.4-10.2) mg/dL Total Bilirubin (0.30-1.20) mg/dL AST (14-35) U/L ALT (10-49) U/L Alkaline Phosphatase (41-126) U/L Total Protein (6.3-8.2) g/dL Albumin (3.8-4.9) g/dL Globulin (1.6-3.3) g/dL Albumin/Globulin Ratio (1.60-3.17) g/dL 02/20/21 02/21/21 02/21/21 Range/Units 20:36 01:11 01:32 RBC (4.30-5.90) m/uL Hgb (13.0-17.5) gm/dL Hct (39.0-53.0) % MCV (80.0-100.0) fL MCH (25.0-35.0) pg MCHC (31.0-37.0) g/dL RDW (11.5-15.5) % Plt Count (150-450) k/uL Carbon Dioxide (20.0-27.5) mmol/L BUN (9.0-27.0) mg/dL Creatinine (0.66-1.25) mg/dL BUN/Creatinine Ratio (12.00-20.00) Ratio Glucose (70-110) mg/dL POC Glucose (mg/dL) 105 H 46 L 53 L (75-99) mg/dL Calcium (8.4-10.2) mg/dL Total Bilirubin (0.30-1.20) mg/dL AST (14-35) U/L ALT (10-49) U/L Alkaline Phosphatase (41-126) U/L Total Protein (6.3-8.2) g/dL Albumin (3.8-4.9) g/dL Globulin (1.6-3.3) g/dL Albumin/Globulin Ratio (1.60-3.17) g/dL 02/21/21 02/21/21 02/21/21 Range/Units 04:44 05:31 05:31 RBC 3.86 L (4.30-5.90) m/uL Hgb 9.0 L (13.0-17.5) gm/dL Hct 30.2 L (39.0-53.0) % MCV 78.2 L (80.0-100.0) fL MCH 23.4 L (25.0-35.0) pg MCHC 30.0 L (31.0-37.0) g/dL RDW 20.1 H (11.5-15.5) % Plt Count 757 H (150-450) k/uL Carbon Dioxide 34 H (20.0-27.5) mmol/L BUN 4 L (9.0-27.0) mg/dL Creatinine 0.50 L (0.66-1.25) mg/dL BUN/Creatinine Ratio (12.00-20.00) Ratio Glucose (70-110) mg/dL POC Glucose (mg/dL) 105 H (75-99) mg/dL Calcium 8.3 L (8.4-10.2) mg/dL Total Bilirubin <0.1 L (0.30-1.20) mg/dL AST 16 L (14-35) U/L ALT (10-49) U/L Alkaline Phosphatase (41-126) U/L Total Protein 6.1 L (6.3-8.2) g/dL Albumin 2.8 L (3.8-4.9) g/dL Globulin (1.6-3.3) g/dL Albumin/Globulin Ratio (1.60-3.17) g/dL 02/21/21 Range/Units 07:34 RBC (4.30-5.90) m/uL Hgb (13.0-17.5) gm/dL Hct (39.0-53.0) % MCV (80.0-100.0) fL MCH (25.0-35.0) pg MCHC (31.0-37.0) g/dL RDW (11.5-15.5) % Plt Count (150-450) k/uL Carbon Dioxide (20.0-27.5) mmol/L BUN (9.0-27.0) mg/dL Creatinine (0.66-1.25) mg/dL BUN/Creatinine Ratio (12.00-20.00) Ratio Glucose (70-110) mg/dL POC Glucose (mg/dL) 126 H (75-99) mg/dL Calcium (8.4-10.2) mg/dL Total Bilirubin (0.30-1.20) mg/dL AST (14-35) U/L ALT (10-49) U/L Alkaline Phosphatase (41-126) U/L Total Protein (6.3-8.2) g/dL Albumin (3.8-4.9) g/dL Globulin (1.6-3.3) g/dL Albumin/Globulin Ratio (1.60-3.17) g/dL Assessment and Plan Plan: Bilateral lower extremities cellulitis, with open ulcer on the bottom of the right foot. Status post debridement Sepsis as evidenced by leukocytosis, white blood count 28.8 on presentation, blood cultures negative so far. White blood cell is trending down Acute metabolic acidosis, Hyponatremia, sodium 127 on presentation improved to 134 today Evidence of anemia hemoglobin 6.6 1 unit of red blood cell transfusion was ordered GI workup requested. Underlying history of diabetes mellitus, poorly controlled hemoglobin A1c 14.7, patient was counseled in length in regards to taking insulin at home Underlying history of peripheral neuropathy Underlying history of seizure disorder Underlying history of gastroesophageal reflux disease Underlying history of hyperlipidemia Pulmonary nodule. Pulmonary service is consulted Elevated d-dimer. CTA negative for pulmonary embolism. Venous Doppler negative for DVT Anemia hemoglobin is down to 6.6. Status post 1 unit PRBC transfusion. Surgic al services have been consulted plans for upper and lower scopes on 02/21/2021 At this time patient is admitted to medical floor Patient remains on IV antibiotics Infectious disease and vascular surgery following Pulmonary service is consulted Status post debridement on 02/14/2021 Tentative plans for EGD and colonoscopy with Dr. araya on 02/21/2021 Social work following for discharge planning patient will likely occur ECF placement Repeat labs in a.m.
[2021-02-21 20:14] LABS: Glucose,Whole Blood 137 mg/dL (75-99)
[2021-02-21] MEDS: ATORVASTATIN 20 MG TAB PO SCH (21:47)
--- NOTE | 2021-02-21 23:06 | PN ---
PROGRESS NOTE DATE OF SERVICE: 02/21/2021 REASON FOR FOLLOWUP: Right foot and left posterior heel wound and cellulitis. INTERVAL HISTORY: The patient is afebrile. The patient is breathing comfortably. The patient denies having any chest pain or shortness of breath or cough. No nausea, vomiting, abdominal pain or diarrhea. PHYSICAL EXAMINATION: Blood pressure 152/84 with a pulse of 91, temperature 98.1. He is 98% on 2 L nasal cannula. General description is a middle-aged male lying in bed in no distress. Respiratory system: Unlabored breathing. Clear to auscultation anteriorly. Heart S1, S2. Regular rate and rhythm. Abdomen soft, no tenderness. Bilateral feet wounds are currently dressed. No obvious drainage on the dressing. LABS: Hemoglobin is 9 with a white count of 7.1, creatinine 0.50. DIAGNOSTIC IMPRESSION AND PLAN: Patient with right foot and left posterior heel wounds with secondary cellulitis, status post debridement. Culture has been negative. On empiric cefazolin; can be discontinued at discharge. Continue local wound care as ordered and monitor his clinical course closely. MMODL / IJN: [id number] /
[2021-02-22 00:45] LABS: Glucose,Whole Blood 47 mg/dL (75-99)
[2021-02-22 00:45] LABS: Glucose,Whole Blood 43 mg/dL (75-99)
[2021-02-22 01:02] LABS: Glucose,Whole Blood 45 mg/dL (75-99)
[2021-02-22 01:20] LABS: Glucose,Whole Blood 74 mg/dL (75-99)
[2021-02-22 05:38] LABS: Glucose,Whole Blood 119 mg/dL (75-99)
[2021-02-22 07:50] LABS: Glucose,Whole Blood 97 mg/dL (75-99)
[2021-02-22] MEDS: SODIUM CHLORIDE 0.9% 1,000 ML IV SCH (07:59)
--- NOTE | 2021-02-22 09:42 | CDI ---
Documentation Clarification Form Date: 02/22/2021 09:13:55 AM From: Zoey Vale RN CCDS Admit Date: 02/09/2021 10:33:00 PM Patient Name: Pietro Ryder Visit Number: [id number] Discharge Date: ATTENTION: The Clinical Documentation Specialists (CDI) and [facility] Coding Staff appreciate your assistance in clarifying documentation. Please respond to the clarification below the line at the bottom and electronically sign. The CDI & [facility] Coding staff will review the response and follow-up if needed. Please note: Queries are made part of the Legal Health Record. If you have any questions, please contact the author of this message via ITS. Dr. Helen Chen Malnourished appearing is documented 02/17, Surgical Consult. Based on this information and the findings below, is there an additional diagnosis that is clinically appropriate for this patient? History/Risk Factors: 60-year-old male presents to the ED with decreased appetite and nausea. He goes the wound care clinic for his right foot. Medical History: DM type 1, Left lower extremity cellulitis. 02/09, ED note. Clinical Indicators: RD Consult Assessment: 02/14 Current BMI: 19.1kg Nutrition Intake: Good; Percent consumed: 50-75%; Appetite: Good; Nutrition Related Medications: Antiemetic, Dilantin, Proton Pump Inhibitor; Statin. Physical findings: Hypermetabolism wounds (specify below) diabetic foot ulcer. Anthropometrics: Weight 45.813kg; Hgt 5ft 1in; BMI 19.1; Calculated [place] body weight: 50.802kg Estimated protein needs: 1.25-1.5 grams/kg; Estimated protein Needs (grams/day) 57-69. Estimated Fluid Needs: 1ml/Kcal; Estimated Fluid 8869-3705 needs (mls/day) Nutrition Dx Intake: Increased nutrient needs protein, kcal, vit c and zinc Diagnosed by: Increased metabolic demand for wound healing, evidenced by diabetic foot ulcers. Treatment: Dietary Consult: See above RD Consult Supplements: Glucerna 1 per day Lab monitoring: Hgb, Na, Cr Is there an additional diagnosis that is clinically appropriate for this patient? [ x ] Severe Protein-Calorie Malnutrition [ ] Other condition, please specify [ ] Unable to Determine (Template Last Revised: May 2020) MTDD
--- NOTE | 2021-02-22 09:58 | CDI ---
Documentation Clarification Form Date: 02/22/2021 09:44:02 AM From: Zoey Vale RN CCDS Admit Date: 02/09/2021 10:33:00 PM Patient Name: Pietro Ryder Visit Number: [id number] Discharge Date: ATTENTION: The Clinical Documentation Specialists (CDI) and [facility] Coding Staff appreciate your assistance in clarifying documentation. Please respond to the clarification below the line at the bottom and electronically sign. The CDI & [facility] Coding staff will review the response and follow-up if needed. Please note: Queries are made part of the Legal Health Record. If you have any questions, please contact the author of this message via ITS. Dr. Helen Chen Cellulitis is documented 02/10, H&P. Additional clarification regarding the type of cellulitis is requested. History/Risk Factors: 60-year-old male presents to the ED with decreased appetite and nausea. He goes the wound care clinic for his right foot. Medical History: DM type 1, Left lower extremity cellulitis. 02/09, ED note. Clinical Indicators: ID Consult: 02/13 Diabetic foot ulcer Non pressure ulcer of left lower extremity with fat layer exposure. Non pressure ulcer of right foot with muscle involvement without necrosis. Medicine Progress Note: 02/11 Underlying history of diabetes mellitus, poorly controlled hemoglobin A1c 14.7. Treatment: 02/09 Rocephin 1,000mg x 1; 02/10 02/18 Cefazolin 3gm IVPB Q8HR; 02/18 to current Cefazolin 2gm IVPB Q8HR; 02/09 Vancomycin 750MG IVPB x 1; 02/10 Vancomycin 750MG IVPB Q12h D/C 02/10. Please clarify the type of cellulitis, if known: [ x] Cellulitis due to diabetes [ ] Other, please specify: [ ] Unable to determine (Template Last Revised: May 2020) MTDD
[2021-02-22] MEDS: INSULIN ASPART (NovoLOG) 100 UNIT/ML VIAL SQ SCH (10:09)
[2021-02-22] MEDS: PANTOPRAZOLE 40 MG TABLET PO SCH (10:27)
[2021-02-22] MEDS: PREGABALIN 50 MG CAP PO SCH (10:27)
[2021-02-22] MEDS: ENOXAPARIN 40 MG/0.4 ML SYRINGE SQ SCH (10:27)
[2021-02-22] MEDS: DILANTIN 30 MG PO SCH (10:28)
[2021-02-22] MEDS: INSULIN DETEMIR (LEVEMIR) 100 UNIT/ML SYR SQ SCH (10:29)
[2021-02-22] MEDS: PIOGLITAZONE 15 MG TAB PO SCH (10:30)
--- NOTE | 2021-02-22 11:15 | P.DS ---
Providers Date of admission: 02/09/21 22:33 Expected date of discharge: 02/22/21 Attending physician: Helen Chen Consults: 02/10/21 12:04 Consult Physician Routine Consulting Provider: Tess Moran Consult Reason/Comments: diabetic foot wound Do you want consulting provider notified?: Yes 02/13/21 11:53 Consult Physician Routine Consulting Provider: Junie Cunningham Consult Reason/Comments: pulmonary nodule Do you want consulting provider notified?: Yes 02/18/21 11:10 Consult Physician Routine Consulting Provider: Gerry Gonzalez Consult Reason/Comments: GIB Hgb 6.6 Do you want consulting provider notified?: Already Contacted Primary care physician: Helenvic Chen [facility] Course: Discharge diagnosis Bilateral lower extremities cellulitis, with open ulcer on the bottom of the right foot. Status post debridement Sepsis as evidenced by leukocytosis, white blood count 28.8 on presentation, blood cultures negative so far. White blood cell is trending down Acute metabolic acidosis, Hyponatremia, sodium 127 on presentation improved to 134 today Evidence of anemia hemoglobin 6.6 1 unit of red blood cell transfusion was ordered GI workup requested. Underlying history of diabetes mellitus, poorly controlled hemoglobin A1c 14.7, patient was counseled in length in regards to taking insulin at home Underlying history of peripheral neuropathy Underlying history of seizure disorder Underlying history of gastroesophageal reflux disease Underlying history of hyperlipidemia Pulmonary nodule. Pulmonary service is consulted Elevated d-dimer. CTA negative for pulmonary embolism. Venous Doppler negative for DVT Anemia hemoglobin is down to 6.6. Status post 1 unit PRBC transfusion. Surgical services have been consulted plans for upper and lower scopes on 02/21/2021 Status post debridement on 02/14/2021 Status post EGD and colonoscopy on 02/21/2021[facility] course Pietro Ryder, is a 60 year-old male came in with complaints of for redness and cellulitis of the left lower extremity patient has a callus and skin breakdown on the plantar aspect for the first metatarsal area. Patient does have leukocytosis without any fever denied any history of MRSA. Patient is also found to have some anion gap are do not have any lactic acid levels available at this time patient has some acetone in the urine can be starvation ketosis and patient was believed to have DKA patient received IV fluids patient's serum sodium was low at 129 improved with IV fluids and correction of blood glucose. Patient is still receiving IV fluids at this time. Patient appears to diabetic neuropathy and is on Lyrica. he does follow up with podiatric On 02/11/2021 patient was seen and examined on the medical floor, he is alert and oriented 3 in no apparent distress, he is feeling better, he still has bilateral lower extremity erythema and tenderness there is an open ulcer on the bottom of the right foot otherwise patient denies any complaints there is no fever or chills no headache or dizziness no chest pain no shortness of breath no cough no nausea or vomiting no abdominal pain no diarrhea and no urinary symptoms On 02/12/2021 patient was seen and examined on the medical floor, he is alert and oriented 3 he is still complaining of bilateral lower extremity erythema and tenderness there is an open ulcer on the bottom of the right foot otherwise patient denies any complaints there is no fever or chills no headache or dizziness no chest pain no shortness of breath no cough no nausea or vomiting no abdominal pain no diarrhea and no urinary symptoms. Vascular surgery consult requested. On 02/13/2021 patient's alert and oriented 3. D-dimer completed at night which was elevated at 2.01 CTA of the chest was performed showing no pulmonary embolism moderate bilateral pleural effusions with comprehensive atelectasis and 7 mm nodule in the right upper lobe possibly infectious versus inflammatory. Venous Doppler also completed showing negative for DVT. Patient remains on IV cefazolin. Vascular surgery and infectious disease services following. Will consult pulmonary services for nodule seen on CTA scan. Patient is complaining of some lower extremity tenderness. Patient denies chest pain or shortness breath. Patient denies nausea vomiting or diarrhea. Patient denies any urinary burning or frequency On 02/14/2021 patient was seen and examined on the medical floor, he is alert and oriented 3 he is still complaining of bilateral lower extremity erythema and tenderness there is an open ulcer on the bottom of the right foot otherwise patient denies any complaints there is no fever or chills no headache or dizziness no chest pain no shortness of breath no cough no nausea or vomiting no abdominal pain no diarrhea and no urinary symptoms. Vascular surgery consult following, patient scheduled for wound debridement today. On 02/15/2021 patient's alert and oriented 3. Patient is status post debridement with wound VAC placement per Dr. Olson. Patient is currently resting comfortably in bed. Patient remains on IV antibiotics. Globin low at 7.2 we'll order dose of IV iron and folate and B12 levels. Patient denies chest pain or shortness breath. Patient denies nausea vomiting or diarrhea. Patient denies any urinary burning or frequency On 02/16/2021atient was seen and examined on the medical floor, he is alert and oriented x 3 in no distress, he denies any complaints there is no fever or chills no headache or dizziness no chest pain no shortness of breath no palpitation no cough no nausea or vomiting no abdominal pain no diarrhea no blood in the stools no burning with urination no frequency or urgency and no hematuria, there is no weakness or numbness in any of the extremities no change in vision speech or gait. Patient developed worsening anemia despite treatment with IV iron yesterday his hemoglobin dropped today to 6.61 unit of red blood cell transfusion was ordered and surgical consultation was requested for gastrointestinal evaluation regarding anemia, GI service is not available this weekend. On 02/17/2021 patient's alert and oriented 3 currently resting comfortably in bed. Surgical services were consulted for anemia. Plans for upper and lower GI scopes for 02/19/2021. Labs currently pending for this a.m. patient did receive 1 unit of PRBCs yesterday. Patient denies chest pain or shortness of breath. Patient denies nausea vomiting or diarrhea. Patient denies any urinary burning or frequency. Per nursing staff no signs of blood in stool patient did report to have loose stools which has been an ongoing issue for him for multiple years. On 02/18/2021 patient was seen and examined on the medical floor he is alert and oriented 3 in no apparent distress patient had anemia requiring red blood cell transfusion, surgical consultation was requested for EGD and colonoscopy, as th ere was no gastroenterology coverage over the weekend, patient is complaining of pain in the bottom of his right foot otherwise he denies any complaints at this time there is no fever or chills no headache or dizziness no chest pain no shortness of breath no cough no nausea or vomiting no abdominal pain no diarrhea and no urinary symptoms On 02/19/2021 patient was seen and examined on the medical floor he is alert and oriented 3 in no apparent distress he was not able to tolerate GI prep yesterday due to nausea and vomiting. At this time GI workup is being postponed until per surgery, otherwise patient is doing well he is complaining of bilateral lower extremity pain otherwise he denies any complaints there is no fever or chills no headache or dizziness no chest pain no shortness of breath no cough no nausea or vomiting no abdominal pain no diarrhea and no urinary symptoms On 02/20/2021 patient's alert and oriented 3. Tentative plans for EGD and Coloscopy tomorrow 02/21/21 hemoglobin remained stable at 10.1. Patient denies chest pain or shortness breath. Patient denies diarrhea. Patient denies any urinary frequency On 02/21/2021 patient was seen and examined on the medical floor he is alert and oriented 3 in no apparent distress he denies any complaints at this time there is no fever or chills no headache or dizziness no chest pain no shortness of breath no cough no nausea or vomiting no abdominal pain no diarrhea no burning with urination no frequency or urgency and no hematuria. Patient had anemia requiring red blood cell transfusion during this admission. We are still awaiting EGD and colonoscopy. Patient should be transferred to a rehab center for IV antibiotic and rehabilitation afterwards. On 02/22/1921 patient's alert and oriented 3. Patient underwent EGD and colonoscopy yesterday with findings of gastritis. Discussed case with infectious disease services no need for antibiotics upon discharge. At this time patient denies chest pain or shortness of breath. Patient denies nausea vomiting or diarrhea. Patient denies any urinary burning or frequency Patient Condition at Discharge: Stable Plan - Discharge Summary Discharge Rx Participant: No New Discharge Prescriptions: Continue Omeprazole 20 mg PO DAILY Pioglitazone HCl [Actos] 15 mg PO DAILY Diphenox-Atrop 2.5-0.025 mg [Lomotil] 1 tab PO BID PRN PRN Reason: Loose Stool Triamcinolone 0.5% Cream [Kenalog 0.5% Cream] 1 applic TOPICAL DAILY Rosuvastatin [Crestor] 10 mg PO HS Pregabalin [Lyrica] 50 mg PO TID Insulin Glargine [Lantus Vial] 50 unit SQ DAILY Mupirocin 2% Oint [Bactroban 2% Oint] 1 applic TOPICAL DAILY Phenytoin Sodium Extended [Dilantin] 30 mg PO BID traMADol HCL 50 mg PO Q6H PRN PRN Reason: Pain Discharge Medication List Omeprazole 20 mg PO DAILY 06/13/17 [History] Pioglitazone HCl [Actos] 15 mg PO DAILY 10/03/18 [History] Diphenox-Atrop 2.5-0.025 mg [Lomotil] 1 tab PO BID PRN 11/17/19 [History] Triamcinolone 0.5% Cream [Kenalog 0.5% Cream] 1 applic TOPICAL DAILY 01/19/20 [History] Insulin Glargine [Lantus Vial] 50 unit SQ DAILY 05/15/20 [History] Pregabalin [Lyrica] 50 mg PO TID 05/15/20 [History] Rosuvastatin [Crestor] 10 mg PO HS 05/15/20 [History] Mupirocin 2% Oint [Bactroban 2% Oint] 1 applic TOPICAL DAILY 12/29/20 [History] Phenytoin Sodium Extended [Dilantin] 30 mg PO BID 02/09/21 [History] traMADol HCL 50 mg PO Q6H PRN 02/09/21 [History] Follow up Appointment(s)/Referral(s): Concepción Olson DO [STAFF PHYSICIAN] - [facility] [NON-STAFF] - 02/25/21 2:30 pm Helen Chen MD [Primary Care Provider] - 1-2 days [facility] Visiting Nurse, [NON-STAFF] - 1-2 Days Discharge/Stand Alone Forms: 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
--- NOTE | 2021-02-22 11:55 | P.PN ---
Subjective Progress Note Date: 02/22/21 CHIEF COMPLAINT: Anemia HISTORY OF PRESENT ILLNESS: Surgical service is following in regards to patient's anemia. Patient status post EGD and colonoscopy which demonstrated antral gastritis. Colonoscopy did have a poor prep. Gastritis could be contributing to patient's anemia. He is hospitalized with cellulitis and leg wounds and has undergone debridement. Afebrile. today. Patient is supposed be discharged to [facility] later today. PHYSICAL EXAM: VITAL SIGNS: Reviewed. GENERAL: Well-developed in no acute distress. HEENT: No sclera icterus. Extraocular movements grossly intact. Moist buccal mucosa. Head is atraumatic, normocephalic. ABDOMEN: Soft. Nondistended. Nontender. NEUROLOGIC: Alert and oriented. Cranial nerves II through XII grossly intact. ASSESSMENT: 1. Anemia with EGD showing evidence of gastritis. PLAN: -Continue regular diet -Continue PPI -Patient can be discharged from surgical standpoint. Physician Pullman Clerk note has been reviewed by physician. Signing provider agrees with the documented findings, assessment, and plan of care. Objective - Vital Signs Vital signs: Vital Signs Temp 98.5 F 02/22/21 04:22 Pulse 97 02/22/21 04:22 Resp 20 02/22/21 04:22 BP 144/81 02/22/21 04:22 Pulse Ox 99 02/22/21 04:22 Intake & Output 02/21/21 02/22/21 02/22/21 18:59 06:59 18:59 Intake Total 1500 400 Output Total 800 2102 Balance 700 -1702 Intake: IV 500 Intake, IV Titration 1000 Amount Sodium Chloride 0.9% 1, 900 000 ml @ 75 mls/hr IV . [id number] ERIN Rx#:[id number] ceFAZolin 2 gm In Sodium 100 Chloride 0.9% 50 ml @ 100 mls/hr IVPB Q8HR ERIN Rx# :[id number] Oral 400 Output: Urine 800 2100 Stool 2 Other: Voiding Method Toilet Urinal # Voids 4 # Bowel Movements 2 2 - Labs CBC & Chem 7: 02/21/21 05:31 02/21/21 05:31 Labs: Abnormal Lab Results - Last 24 Hours (Table) 02/16/21 02/21/21 02/21/21 Range/Units 11:17 12:56 17:10 POC Glucose (mg/dL) 280 H 177 H (75-99) mg/dL Crossmatch See Detail 02/21/21 02/22/21 02/22/21 Range/Units 20:12 00:36 00:38 POC Glucose (mg/dL) 137 H 47 L 43 L (75-99) mg/dL Crossmatch 02/22/21 02/22/21 02/22/21 Range/Units 00:52 01:10 05:34 POC Glucose (mg/dL) 45 L 74 L 119 H (75-99) mg/dL Crossmatch
[2021-02-22 12:04] VITALS: BP 164/82; PULSE 65; RESP 16; TEMP 98.3
[2021-02-22 12:14] LABS: Glucose,Whole Blood 267 mg/dL (75-99)
--- NOTE | 2021-02-22 14:10 | PN ---
PROGRESS NOTE DATE OF SERVICE: 02/22/2021 REASON FOR FOLLOWUP: Right foot and left lower leg wound. INTERVAL HISTORY: The patient is afebrile. The patient is breathing comfortably. The patient denies having any chest pain, shortness of breath or cough. No abdominal pain or pain to the lower extremity wound areas. PHYSICAL EXAMINATION: Blood pressure 164/82 with a pulse of 65, temperature 98.3. He is 93% on room air. General description is a middle-aged male lying in bed in no distress. Respiratory system: Unlabored breathing, clear to auscultation anteriorly. Heart S1, S2. Regular rate and rhythm. Abdomen soft, no tenderness. Right foot and left posterior heel wounds are currently dressed. RN who changed the dressing mentioned overall decrease in the slough tissue. There was no redness or any foul-smelling drainage. LABS: No new labs have been obtained today. DIAGNOSTIC IMPRESSION AND PLAN: Patient with right foot plantar wound and left heel wound, status post debridement. Culture has been negative for any resistant pathogen. more likely colonizer. The patient received about 2 weeks of antibiotic. That should be more than enough. Local care to continue with the Santyl. Keep the areas off pressure. Continue with supportive care. MMODL / IJN: [id number] /
== END 2021-02-22 13:20 | DRG 853 ==
LOC: EC 16:50 → 3SCARD 22:33 → 5NMEDONC 02-10 13:47 → 1SOBS 02-10 17:42 → 6NMEDSUR 02-15 17:55 → 5NMEDONC 02-17 17:47
PROVIDERS: ADMIT Internal Medicine; ATTEND Internal Medicine
PROC: 0LBV0ZZ Excision of Right Foot Tendon, Open Approach (ICD-10-PCS; principal; 2021-02-14 13:30)
PROC: 0DJD8ZZ Inspection of Lower Intestinal Tract, Via Natural or Artificial Opening Endoscopic (ICD-10-PCS; 2021-02-21)
PROC: 0DB78ZX Excision of Stomach, Pylorus, Via Natural or Artificial Opening Endoscopic, Diagnostic (ICD-10-PCS; 2021-02-21 12:30)
DX: A41.9 Sepsis, unspecified organism (principal); E10.10 Type 1 diabetes mellitus with ketoacidosis without coma; E43 Unspecified severe protein-calorie malnutrition; L97.411 Non-pressure chronic ulcer of right heel and midfoot limited to breakdown of skin; E87.1 Hypo-osmolality and hyponatremia; J90 Pleural effusion, not elsewhere classified; K92.2 Gastrointestinal hemorrhage, unspecified; L02.211 Cutaneous abscess of abdominal wall; L02.611 Cutaneous abscess of right foot; L03.115 Cellulitis of right lower limb; L03.116 Cellulitis of left lower limb; Z20.822 Contact with and (suspected) exposure to COVID-19; L97.515 Non-pressure chronic ulcer of other part of right foot with muscle involvement without evidence of necrosis; L97.922 Non-pressure chronic ulcer of unspecified part of left lower leg with fat layer exposed; Z16.24 Resistance to multiple antibiotics; Z68.1 Body mass index [BMI] 19.9 or less, adult; Z79.4 Long term (current) use of insulin; D50.9 Iron deficiency anemia, unspecified; E10.42 Type 1 diabetes mellitus with diabetic polyneuropathy; E10.51 Type 1 diabetes mellitus with diabetic peripheral angiopathy without gangrene; E10.621 Type 1 diabetes mellitus with foot ulcer; E10.622 Type 1 diabetes mellitus with other skin ulcer; E10.628 Type 1 diabetes mellitus with other skin complications; E78.5 Hyperlipidemia, unspecified; E86.1 Hypovolemia; E87.70 Fluid overload, unspecified; F32.A Depression, unspecified; G40.909 Epilepsy, unspecified, not intractable, without status epilepticus; I10 Essential (primary) hypertension; K21.9 Gastro-esophageal reflux disease without esophagitis; K29.70 Gastritis, unspecified, without bleeding; L97.529 Non-pressure chronic ulcer of other part of left foot with unspecified severity; M17.12 Unilateral primary osteoarthritis, left knee; Z79.84 Long term (current) use of oral hypoglycemic drugs; Z79.899 Other long term (current) drug therapy; Z80.9 Family history of malignant neoplasm, unspecified; Z82.49 Family history of ischemic heart disease and other diseases of the circulatory system; Z83.3 Family history of diabetes mellitus; Z91.19 Patient's noncompliance with other medical treatment and regimen; M19.90 Unspecified osteoarthritis, unspecified site; R79.89 Other specified abnormal findings of blood chemistry
CPT/HCPCS: 36415; 43239; 45378; 71046; 71275; 76604; 80048; 80053; 81001; 82009; 82607; 82746; 82747; 83036; 83540; 83550; 83605; 84145; 85025; 85379; 86140; 86850; 86900; 86901; 86920; 87040; 87070; 87075; 87205; 87635; 88305; 93005; 93970; 96361; 96374; 99285

== ENCOUNTER 2021-03-07 17:40 | Emergency (ER) | payer OTHER ==
[2021-03-07 18:57] VITALS: TEMP 98.1
[2021-03-07] MEDS ORDERED: ASPIRIN 81 MG PO STA (20:37)
[2021-03-07] MEDS ORDERED: ONDANSETRON 4 MG/2 ML VIAL IVP STA (20:49)
[2021-03-07] MEDS ORDERED: SODIUM CHLORIDE 0.9% 1,000 ML IV STA (20:49)
[2021-03-07] MEDS ORDERED: FAMOTIDINE 20 MG/2 ML VIAL IV STA (20:49)
[2021-03-07] MEDS ORDERED: diphenhydrAMINE 50 MG/ML 1 ML VIAL IVP STA (20:49)
--- NOTE | 2021-03-07 21:34 | XR ---
EXAMINATION TYPE: XR chest 2V DATE OF EXAM: 03/07/2021 COMPARISON: 09/25/2020 HISTORY: 60 years Male. STUDY INDICATION GIVEN: Chest Pain . TECHNIQUE: Frontal and lateral chest radiographs. IMPRESSION: Previously seen right lower lobe opacities are not seen on this study. There are new patchy/hazy opacities in the right upper lobe near the apex may be on the basis of pneu monia, clinical correlation recommended. Repeat chest radiograph and is recommended to rule out devel oping lung nodules/masses. Mild lung hyperinflation upper lobe lucencies may be reflective of COPD/emphysema. Cardiomediastinal silhouette normal. No acute osseous abnormality seen.
[2021-03-07 21:36] LABS: ALT 11 U/L (4-49); AST 20 U/L (17-59); African American GFR (CKD) >90 (>60 ml/min/1.73 sqM); Albumin 4.3 g/dL (3.5-5.0); Alkaline Phosphatase 138 U/L (38-126); Amylase 69 U/L (30-110); Anion Gap 9 mmol/L; Blood Urea Nitrogen 15 mg/dL (9-20); Calcium 10.5 mg/dL (8.4-10.2); Carbon Dioxide 32 mmol/L (22-30); Chloride 91 mmol/L (98-107); Glucose 217 mg/dL (74-99); Lipase 40 U/L (23-300); Magnesium 1.9 mg/dL (1.6-2.3); Non-African American GFR(CKD) >90 (>60 ml/min/1.73 sqM); Potassium 4.3 mmol/L (3.5-5.1); Sodium 132 mmol/L (137-145); Total Bilirubin 0.3 mg/dL (0.2-1.3); Total Protein 8.4 g/dL (6.3-8.2)
[2021-03-07 21:38] LABS: INR 0.9 (<1.2); Partial Thromboplastin Time 34.6 sec (22.0-30.0); Prothrombin Time 9.6 sec (9.0-12.0)
[2021-03-07 21:46] LABS: Anisocytosis Moderate; Basophils % (A) 0 %; Eosinophils % (A) 1 %; HCT 41.3 % (39.0-53.0); Hypochromasia Marked; Lymphocytes # (A) 2.1 k/uL (1.0-4.8); Lymphocytes % (A) 23 %; MCH 23.3 pg (25.0-35.0); MCHC 30.6 g/dL (31.0-37.0); MCV 76.1 fL (80.0-100.0); Mean Platelet Volume 7.4; Microcytosis Moderate; Monocytes # (A) 0.4 k/uL (0-1.0); Monocytes % (A) 5 %; Neutrophils # (A) 6.6 k/uL (1.3-7.7); Neutrophils % (A) 71 %; Platelet Count 507 k/uL (150-450); RBC 5.43 m/uL (4.30-5.90); RDW 20.1 % (11.5-15.5); WBC 9.3 k/uL (3.8-10.6)
[2021-03-07 21:47] LABS: HGB 12.6 gm/dL (13.0-17.5)
--- NOTE | 2021-03-07 22:40 | CT ---
EXAMINATION TYPE: CT chest angio for PE DATE OF EXAM: 03/07/2021 COMPARISON: 02/13/2021 HISTORY: Chest pain and elevated d-dimer. CT DLP: 187.7 mGycm Automated exposure control for dose reduction was used. CONTRAST: Performed with IV Contrast, patient injected with 68ml mL of Isovue 370. Images obtained from the thoracic inlet to the diaphragm with IV contrast. There are Three-D postproc essed images. The lungs are clear of consolidation. There is mild subsegmental atelectasis at the lung bases. Heart size is fairly normal. There are no hilar masses. There is no mediastinal adenopathy. Thoracic aorta is intact. There is no aneurysm or dissection. There is normal contrast opacification of the pulmona ry arteries. Thoracic spine is intact. There is no compression fracture. Sternum is intact. IMPRESSION: No evidence of pulmonary embolism. There is clearing of the pleural fluid and pulmonary infiltrates a nd atelectasis compared to old exam. No suspicious pulmonary mass.
--- NOTE | 2021-03-07 22:49 | ED ---
General Adult HPI - General Chief complaint: Chest Pain Stated complaint: Chest Pain, Shortness of Breath Time Seen by Provider: 03/07/21 20:38 Source: patient, RN notes reviewed, old records reviewed Mode of arrival: wheelchair Limitations: physical limitation - History of Present Illness Initial comments: Patient is a 60-year-old male with past medical history remarkable for cancer, diabetes, seizure disorder who presents emergency department over concern for upper respiratory symptoms including coughing as well as nausea, vomiting and "chest pain". He states he has been having these symptoms for the last 3 days and they've getting worse. States he was vaccinated for COVID-19. Denies any known sick contacts. Denies any fevers. States he is intermittent able to tolerate by mouth intake. Endorses the nausea and vomiting as occurring after episodes of coughing, however also intermittently by themselves. Describes emesis is nonbilious nonbloody. Please see is dehydrated and also endorses a chest pain, however points towards his epigastric region and substernally inferiorly. Also states he is intermittently having shortness of breath. His no other acute complaints at this time. His presenting for symptomatically treatment. Describes the chest pain as achy. Worse after episodes of emesis. - Related Data Home Medications Medication Instructions Recorded Confirmed Omeprazole 20 mg PO DAILY 06/13/17 02/09/21 Pioglitazone HCl [Actos] 15 mg PO DAILY 10/03/18 02/09/21 Diphenox-Atrop 2.5-0.025 mg 1 tab PO BID PRN 11/17/19 02/09/21 [Lomotil] Triamcinolone 0.5% Cream [Kenalog 1 applic TOPICAL DAILY 01/19/20 02/09/21 0.5% Cream] Insulin Glargine [Lantus Vial] 50 unit SQ DAILY 05/15/20 02/09/21 Pregabalin [Lyrica] 50 mg PO TID 05/15/20 02/09/21 Rosuvastatin [Crestor] 10 mg PO HS 05/15/20 02/09/21 Mupirocin 2% Oint [Bactroban 2% 1 applic TOPICAL DAILY 12/29/20 02/09/21 Oint] Phenytoin Sodium Extended 30 mg PO BID 02/09/21 02/09/21 [Dilantin] Previous Rx's Medication Instructions Recorded traMADol HCL 50 mg PO Q6H PRN 3 Days #12 tab 02/22/21 Doxycycline Hyclate 100 mg PO BID 7 Days #14 tab 03/07/21 Famotidine [Zantac-360 20 mg PO DAILY 14 Days #14 tablet 03/07/21 (Famotidine)] Ondansetron Odt [Zofran Odt] 4 mg PO Q8HR PRN 3 Days #9 tab 03/07/21 Allergies Allergy/AdvReac Type Severity Reaction Status Date / Time No Known Allergies Allergy Verified 03/07/21 22:49 Review of Systems ROS Statement: Those systems with pertinent positive or pertinent negative responses have been documented in the HPI. Review of Systems: CONST: Denies fever EYES: Denies blurry vision ENT: Denies nasal congestion C/V: Endorses chest pain RESP: Endorses intermittent shortness of breath GI: Endorses nausea and vomiting : Denies dysuria SKIN: Denies rash. MSK: Denies joint pain. NEURO: Denies headache ROS Other: All systems not noted in ROS Statement are negative. Past Medical History Past Medical History: Cancer, Diabetes Mellitus, GERD/Reflux, Hyperlipidemia, Osteoarthritis (OA), Seizure Disorder Additional Past Medical History / Comment(s): IDDM type 1, wounds to upper back from scratching and L leg-seen at [facility], past L lower extremity cellulitis with sepsis, L wrist cancerous tumor removed, past seizure over 6 months ago, arthritis L knee, vertigo, occasional diarrhea, pt cannot recall why he takes lyrica. 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 Past Anesthesia/Blood Transfusion Reactions: No Reported Reaction Past Psychological History: Depression Smoking Status: Never smoker Past Alcohol Use History: None Reported Past Drug Use History: None Reported - Past Family History Father Family Medical History: Myocardial Infarction (GA) Additional Family Medical History / Comment(s): Father of a GA at the age of 57yrs. Mother Family Medical History: Cancer Additional Family Medical History / Comment(s): Mother from cancer at the age of 61 or 62 . Pt cannot recall type of cancer. Sister(s) Family Medical History: Diabetes Mellitus Additional Family Medical History / Comment(s): Sister had DM type 1. She is . General Exam - General Exam Comments Initial Comments: General: Appears in no acute distress. HEAD: Normal with no signs of head trauma. EYES: PERRLA, EOMI, conjunctiva normal, no discharge. ENT: Hearing grossly intact, normal oropharynx. Mucous membranes are mildly dry. RESPIRATORY: Clear breath sounds bilaterally. No wheezes, rales, or rhonchi. No increased work of breathing. Not hypoxic. C/V: Mild sinus tachycardia with regular rhythm. S1 and S2 auscultated. Peripheral edema is not present. Peripheral pulses are 2+ and intact throughout. ABD: Abdomen is mildly tender to palpation in the epigastric region. Abdomen is nondistended. No guarding. No peritoneal signs. No rebound tenderness. EXT: Normal range of motion, no obvious deformity SKIN: No rashes or lesions observed on exposed skin. NEURO: Alert and oriented 4. No focal deficits. Limitations: physical limitation Course Vital Signs 03/07/21 18:53 Temperature 98.1 F Pulse Rate 118 H Respiratory 18 Rate Blood Pressure 112/69 O2 Sat by Pulse 97 Oximetry Medical Decision Making - Medical Decision Making Based on the patient's presentation and physical exam, I'm concerned for possible infectious etiology for his current symptoms with viral possibility of pulmonary embolism or ACS. Therefore we will obtain cardiac labs addition to basic labs abdominal laboratory studies. Chest x-ray and EKG will be obtained. D-dimer also be obtained. He was in agreement this plan. He will be given a dose of aspirin in addition to IV Benadryl, Pepcid, Zofran and 1 L fluid bolus. EKG showed no signs of acute ischemia. Chest x-ray revealed no acute cardiopulm onary process, but a possible developing right upper lobe pneumonia. Laboratory studies are remarkable for a negative troponin, a microcytic anemia with a hemoglobin of 12.6. Foot, slightly elevated to 507. D-dimer slightly elevated to 0.67. Patient is a mild hyponatremia of 113 hypochloremia of 91 likely secondary to dehydration. Glucose is within normal limits. No sign of anion gap acidosis. Troponin is negative. Covid is negative. Remainder of the labs are unremarkable. Due to the elevated d-dimer, I did recommend that we obtain a CT angiogram of pulmonary embolism. He was in agreement this plan. CT PE revealed no signs of acute pulmonary embolus. On reevaluation, patient's vital signs have normalized. I discussed the results with him that I would like to discharge him at this time with follow-up with his PCP. He was in agreement this plan. He will be given a dose of doxycycline as well as a prescription for doxycycline for his pneumonia. I will provide the patient with a prescription for doxycycline, famotidine, Zofran. I instructed the patient to follow up with their PCP in the next 3 days. I explained that the patient should return to the emergency department if they experience any worsening symptoms. Strict return precautions were discussed with the patient. The patient expressed understanding of these instructions. I answered all questions that the patient had. The patient was discharged home in fair condition with their prescriptions and follow up information. - Lab Data Result diagrams: 03/07/21 21:15 03/07/21 21:15 Lab Results 03/07/21 03/07/21 03/07/21 Range/Units 21:15 21:15 21:15 WBC 9.3 (3.8-10.6) k/uL RBC 5.43 (4.30-5.90) m/uL Hgb 12.6 L D (13.0-17.5) gm/dL Hct 41.3 (39.0-53.0) % MCV 76.1 L (80.0-100.0) fL MCH 23.3 L (25.0-35.0) pg MCHC 30.6 L (31.0-37.0) g/dL RDW 20.1 H (11.5-15.5) % Plt Count 507 H (150-450) k/uL MPV 7.4 Neutrophils % 71 % Lymphocytes % 23 % Monocytes % 5 % Eosinophils % 1 % Basophils % 0 % Neutrophils # 6.6 (1.3-7.7) k/uL Lymphocytes # 2.1 (1.0-4.8) k/uL Monocytes # 0.4 (0-1.0) k/uL Eosinophils # 0.0 (0-0.7) k/uL Basophils # 0.0 (0-0.2) k/uL Hypochromasia Marked Anisocytosis Moderate Microcytosis Moderate PT 9.6 (9.0-12.0) sec INR 0.9 (<1.2) APTT 34.6 H (22.0-30.0) sec D-Dimer 0.67 H (<0.60) mg/L FEU Sodium 132 L (137-145) mmol/L Potassium 4.3 (3.5-5.1) mmol/L Chloride 91 L (98-107) mmol/L Carbon Dioxide 32 H (22-30) mmol/L Anion Gap 9 mmol/L BUN 15 (9-20) mg/dL Creatinine 0.76 (0.66-1.25) mg/dL Est GFR (CKD-EPI)AfAm >90 (>60 ml/min/1.73 sqM) Est GFR (CKD-EPI)NonAf >90 (>60 ml/min/1.73 sqM) Glucose 217 H (74-99) mg/dL Calcium 10.5 H (8.4-10.2) mg/dL Magnesium 1.9 (1.6-2.3) mg/dL Total Bilirubin 0.3 (0.2-1.3) mg/dL AST 20 (17-59) U/L ALT 11 (4-49) U/L Alkaline Phosphatase 138 H (38-126) U/L Troponin I (0.000-0.034) ng/mL Total Protein 8.4 H (6.3-8.2) g/dL Albumin 4.3 (3.5-5.0) g/dL Amylase 69 (30-110) U/L Lipase 40 (23-300) U/L Coronavirus (PCR) (Not Detectd) 03/07/21 03/07/21 Range/Units 21:15 21:15 WBC (3.8-10.6) k/uL RBC (4.30-5.90) m/uL Hgb (13.0-17.5) gm/dL Hct (39.0-53.0) % MCV (80.0-100.0) fL MCH (25.0-35.0) pg MCHC (31.0-37.0) g/dL RDW (11.5-15.5) % Plt Count (150-450) k/uL MPV Neutrophils % % Lymphocytes % % Monocytes % % Eosinophils % % Basophils % % Neutrophils # (1.3-7.7) k/uL Lymphocytes # (1.0-4.8) k/uL Monocytes # (0-1.0) k/uL Eosinophils # (0-0.7) k/uL Basophils # (0-0.2) k/uL Hypochromasia Anisocytosis Microcytosis PT (9.0-12.0) sec INR (<1.2) APTT (22.0-30.0) sec D-Dimer (<0.60) mg/L FEU Sodium (137-145) mmol/L Potassium (3.5-5.1) mmol/L Chloride (98-107) mmol/L Carbon Dioxide (22-30) mmol/L Anion Gap mmol/L BUN (9-20) mg/dL Creatinine (0.66-1.25) mg/dL Est GFR (CKD-EPI)AfAm (>60 ml/min/1.73 sqM) Est GFR (CKD-EPI)NonAf (>60 ml/min/1.73 sqM) Glucose (74-99) mg/dL Calcium (8.4-10.2) mg/dL Magnesium (1.6-2.3) mg/dL Total Bilirubin (0.2-1.3) mg/dL AST (17-59) U/L ALT (4-49) U/L Alkaline Phosphatase (38-126) U/L Troponin I <0.012 (0.000-0.034) ng/mL Total Protein (6.3-8.2) g/dL Albumin (3.5-5.0) g/dL Amylase (30-110) U/L Lipase (23-300) U/L Coronavirus (PCR) Not Detected (Not Detectd) - EKG Data -: EKG Interpreted by Me EKG Comments: 12-lead Electrocardiogram Interpretation Note EKG was reviewed and interpreted by myself. 12-lead ECG performed at 1918 is interpreted by me as revealing sinus tachycardia at a rate of 125 beats per minute. [place] is normal. VT interval is 120 ms, QRS durations 84 ms, QTc is 467 ms.. There were no ST or T wave abnormalities to suggest myocardial ischemia or injury. R wave progression across the precordium was satisfactory. By my interpretation this EKG is non-diagnostic for acute ischemia. Disposition Clinical Impression: Chest pain of unknown etiology, Cough, Nausea & vomiting, Pneumonia Disposition: HOME SELF-CARE Condition: Fair Instructions (If sedation given, give patient instructions): Acute Nausea and Vomiting (ED) Prescriptions: Doxycycline Hyclate 100 mg PO BID 7 Days #14 tab Famotidine [Zantac-360 (Famotidine)] 20 mg PO DAILY 14 Days #14 tablet Ondansetron Odt [Zofran Odt] 4 mg PO Q8HR PRN 3 Days #9 tab PRN Reason: Nausea Is patient prescribed a controlled substance at d/c from ED?: No Referrals: Helen Chen MD [Primary Care Provider] - 1-2 days
[2021-03-07 22:54] VITALS: BP 110/70; PULSE 95; RESP 16
[2021-03-07] MEDS ORDERED: DOXYCYCLINE 100 MG CAP PO STA ×2 (22:57)
== END 2021-03-07 23:07 | disposition home or self-care (01) ==
LOC: EC 17:40
DX: R07.89 Other chest pain (principal); R11.2 Nausea with vomiting, unspecified; J18.9 Pneumonia, unspecified organism; E11.9 Type 2 diabetes mellitus without complications; K21.9 Gastro-esophageal reflux disease without esophagitis; E78.5 Hyperlipidemia, unspecified; M19.90 Unspecified osteoarthritis, unspecified site; F32.A Depression, unspecified; Z20.822 Contact with and (suspected) exposure to COVID-19; Z79.4 Long term (current) use of insulin
CPT/HCPCS: 99285; 96374; 96375 ×2; 96361; 36415; 93005; 85379; 80053; 82150; 83690; 83735; 84484; 85025; 85610; 85730; 87635; 71046; 71275; J1200; J2405; Q9967

== ENCOUNTER 2021-03-11 11:49 | Emergency (ER) | payer OTHER ==
[2021-03-11 14:45] VITALS: TEMP 98.3
[2021-03-11] MEDS ORDERED: ONDANSETRON 4 MG/2 ML VIAL IVP STA (15:35)
[2021-03-11] MEDS ORDERED: SODIUM CHLORIDE 0.9% 1,000 ML IV STA (15:35)
[2021-03-11] MEDS ORDERED: MORPHINE SULFATE 4 MG/ML SYRINGE IVP STA (15:36)
--- NOTE | 2021-03-11 15:37 | ED ---
General Adult HPI - General Chief complaint: Nausea/Vomiting/Diarrhea Stated complaint: nausea & diarrhea Time Seen by Provider: 03/11/21 15:11 Source: patient Mode of arrival: wheelchair Limitations: no limitations - History of Present Illness Initial comments: 60-year-old male with past medical history of diabetes, cancer, GERD, seizure disorder presents to the emergency department for nausea, vomiting, and chest pain he describes as "burning" x 3 days. States he vomited once yesterday but has no appetite. He does state he is able to keep down liquids and solids but just does not feel like eating. Patient states he was here on March 07 with the same symptoms and felt better after fluids and medication. However, the symptoms came back later that day. Patient denies shortness of breath, hemoptysis, bilious vomiting, dizziness, headache, constipation diarrhea. Patient was here on March 07 with similar symptoms. EKG interpretation showed no signs of acute ischemia. Chest x-ray showed possible developing right upper lobe pneumonia. Troponin was negative, microcytic anemia with a hemoglobin of 12.6. D-dimer slightly elevated to 0.67. Troponin was negative. Covid 19 is negative. CTA revealed no signs of acute pulmonary embolism. He was given doxycycline for his pneumonia and discharged home. Patient states he has been taking his doxycycline. - Related Data Home Medications Medication Instructions Recorded Confirmed Omeprazole 20 mg PO DAILY 06/13/17 03/11/21 Pioglitazone HCl [Actos] 15 mg PO DAILY 10/03/18 03/11/21 Diphenox-Atrop 2.5-0.025 mg 1 tab PO BID PRN 11/17/19 03/11/21 [Lomotil] Triamcinolone 0.5% Cream [Kenalog 1 applic TOPICAL DAILY 01/19/20 03/11/21 0.5% Cream] Insulin Glargine [Lantus Vial] 50 unit SQ DAILY 05/15/20 03/11/21 Pregabalin [Lyrica] 50 mg PO DAILY 05/15/20 03/11/21 Rosuvastatin [Crestor] 10 mg PO HS 05/15/20 03/11/21 Mupirocin 2% Oint [Bactroban 2% 1 applic TOPICAL BID 12/29/20 03/11/21 Oint] Phenytoin Sodium Extended 30 mg PO BID 02/09/21 03/11/21 [Dilantin] Acetaminophen Tab [Tylenol Tab] 500 mg PO Q6H PRN 03/11/21 03/11/21 Previous Rx's Medication Instructions Recorded traMADol HCL 50 mg PO Q6H PRN 3 Days #12 tab 02/22/21 Doxycycline Hyclate 100 mg PO BID 7 Days #14 tab 03/07/21 Famotidine [Zantac-360 20 mg PO DAILY 14 Days #14 tablet 03/07/21 (Famotidine)] Ondansetron Odt [Zofran Odt] 4 mg PO Q8HR PRN 3 Days #9 tab 03/07/21 Sulfamethox-Tmp 800-160Mg [Bactrim 1 tab PO Q12HR 7 Days #14 tab 03/11/21 DS 800-160 mg] Allergies Allergy/AdvReac Type Severity Reaction Status Date / Time No Known Allergies Allergy Verified 03/11/21 17:18 Review of Systems ROS Statement: Those systems with pertinent positive or pertinent negative responses have been documented in the HPI. ROS Other: All systems not noted in ROS Statement are negative. Past Medical History Past Medical History: Cancer, Diabetes Mellitus, GERD/Reflux, Hyperlipidemia, Osteoarthritis (OA), Seizure Disorder Additional Past Medical History / Comment(s): IDDM type 1, wounds to upper back from scratching and L leg-seen at [facility], past L lower extremity cellulitis with sepsis, L wrist cancerous tumor removed, past seizure over 6 months ago, arthritis L knee, vertigo, occasional diarrhea, pt cannot recall why he takes lyrica. 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 Past Anesthesia/Blood Transfusion Reactions: No Reported Reaction Past Psychological History: Depression Smoking Status: Never smoker Past Alcohol Use History: None Reported Past Drug Use History: None Reported - Past Family History Father Family Medical History: Myocardial Infarction (GA) Additional Family Medical History / Comment(s): Father of a GA at the age of 57yrs. Mother Family Medical History: Cancer Additional Family Medical History / Comment(s): Mother from cancer at the a ge of 61 or 62 . Pt cannot recall type of cancer. Sister(s) Family Medical History: Diabetes Mellitus Additional Family Medical History / Comment(s): Sister had DM type 1. She is . General Exam Limitations: no limitations General appearance: alert, in no apparent distress Head exam: Present: atraumatic Eye exam: Present: normal appearance, EOMI ENT exam: Present: normal exam, mucous membranes moist Neck exam: Present: normal inspection Respiratory exam: Present: normal lung sounds bilaterally. Absent: respiratory distress, wheezes, rales, rhonchi, stridor Cardiovascular Exam: Present: regular rate, normal rhythm, normal heart sounds. Absent: systolic murmur, diastolic murmur, rubs, gallop, clicks GI/Abdominal exam: Present: soft, normal bowel sounds, other (Patient points to upper epigastric region and says it javed a little bit david 3/10 pain). Absent: distended, tenderness, guarding, rebound, rigid Extremities exam: Present: normal inspection, full ROM Back exam: Present: normal inspection, full ROM. Absent: tenderness Neurological exam: Present: alert, oriented X3 Psychiatric exam: Present: normal mood, flat affect Skin exam: Present: warm, dry, intact, normal color. Absent: rash Course Vital Signs 03/11/21 14:39 Temperature 98.3 F Pulse Rate 103 H Respiratory 20 Rate Blood Pressure 145/84 O2 Sat by Pulse 97 Oximetry EKG Findings - EKG Comments: EKG Findings:: EKG: Sinus tachycardia at 101 beats minute. [place] interval 142ms. QRS duration 84ms. QT/QTc 332/430ms Medical Decision Making - Medical Decision Making This 60-year-old male presents to the emergency department with nausea, vomiting, upper epigastric pain 2 days. Patient was seen here 3 days ago with full workup and diagnosed with pneumonia and sent home on doxycycline. Patient states he felt better for that day but then began to experience his nausea and vomiting again the past 2 days. Chest X ray impression: Possible underlying COPD, mild interstitial prominence, correlate to exclude bronchitis or chronic asthma. No focal infiltrate seen. EKG compared to 556439 and appears to be improved with no ST elevation or depression noted. Patient given GI cocktail, Zofran, fluids, Pepcid and states he has some improvement with nausea and burning epigastric pain. Labs at his baseline. Glucose at 360. Urine with moderate blood, red blood cells 72, white blood cells 23, occasional bacteria. Patient treated for a UTI. 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 Strict return precautions given. Patient sent home in stable condition. - Lab Data Result diagrams: 03/11/21 16:31 03/11/21 17:07 Lab Results 03/11/21 03/11/21 03/11/21 Range/Units 16:31 16:31 16:31 WBC 9.4 (3.8-10.6) k/uL RBC 4.98 (4.30-5.90) m/uL Hgb 11.7 L (13.0-17.5) gm/dL Hct 38.8 L (39.0-53.0) % MCV 77.9 L (80.0-100.0) fL MCH 23.4 L (25.0-35.0) pg MCHC 30.1 L (31.0-37.0) g/dL RDW 20.6 H (11.5-15.5) % Plt Count 424 (150-450) k/uL MPV 7.5 Neutrophils % 78 % Lymphocytes % 17 % Monocytes % 3 % Eosinophils % 0 % Basophils % 0 % Neutrophils # 7.3 (1.3-7.7) k/uL Lymphocytes # 1.6 (1.0-4.8) k/uL Monocytes # 0.3 (0-1.0) k/uL Eosinophils # 0.0 (0-0.7) k/uL Basophils # 0.0 (0-0.2) k/uL Hypochromasia Marked Anisocytosis Moderate Microcytosis Moderate Sodium (137-145) mmol/L Potassium (3.5-5.1) mmol/L Chloride (98-107) mmol/L Carbon Dioxide (22-30) mmol/L Anion Gap mmol/L BUN (9-20) mg/dL Creatinine (0.66-1.25) mg/dL Est GFR (CKD-EPI)AfAm (>60 ml/min/1.73 sqM) Est GFR (CKD-EPI)NonAf (>60 ml/min/1.73 sqM) Glucose (74-99) mg/dL Calcium (8.4-10.2) mg/dL Total Bilirubin (0.2-1.3) mg/dL AST (17-59) U/L ALT (4-49) U/L Alkaline Phosphatase (38-126) U/L Troponin I <0.012 (0.000-0.034) ng/mL Total Protein (6.3-8.2) g/dL Albumin (3.5-5.0) g/dL Amylase (30-110) U/L Lipase (23-300) U/L Urine Color Yellow Urine Appearance Cloudy (Clear) Urine pH 6.5 (5.0-8.0) Ur Specific [place] 1.030 (1.001-1.035) Urine Protein Trace H (Negative) Urine Glucose (UA) 4+ H (Negative) Urine Ketones Negative (Negative) Urine Blood Moderate H (Negative) Urine Nitrite Negative (Negative) Urine Bilirubin Negative (Negative) Urine Urobilinogen <2.0 (<2.0) mg/dL Ur Leukocyte Esterase Negative (Negative) Urine RBC 72 H (0-5) /hpf Urine WBC 23 H (0-5) /hpf Ur Squamous Epith Cells 1 (0-4) /hpf Urine Bacteria Occasional H (None) /hpf Urine Mucus Rare H (None) /hpf 03/11/21 Range/Units 17:07 WBC (3.8-10.6) k/uL RBC (4.30-5.90) m/uL Hgb (13.0-17.5) gm/dL Hct (39.0-53.0) % MCV (80.0-100.0) fL MCH (25.0-35.0) pg MCHC (31.0-37.0) g/dL RDW (11.5-15.5) % Plt Count (150-450) k/uL MPV Neutrophils % % Lymphocytes % % Monocytes % % Eosinophils % % Basophils % % Neutrophils # (1.3-7.7) k/uL Lymphocytes # (1.0-4.8) k/uL Monocytes # (0-1.0) k/uL Eosinophils # (0-0.7) k/uL Basophils # (0-0.2) k/uL Hypochromasia Anisocytosis Microcytosis Sodium 132 L (137-145) mmol/L Potassium 3.9 (3.5-5.1) mmol/L Chloride 98 (98-107) mmol/L Carbon Dioxide 24 (22-30) mmol/L Anion Gap 10 mmol/L BUN 20 (9-20) mg/dL Creatinine 0.59 L (0.66-1.25) mg/dL Est GFR (CKD-EPI)AfAm >90 (>60 ml/min/1.73 sqM) Est GFR (CKD-EPI)NonAf >90 (>60 ml/min/1.73 sqM) Glucose 360 H (74-99) mg/dL Calcium 9.0 (8.4-10.2) mg/dL Total Bilirubin 0.3 (0.2-1.3) mg/dL AST 15 L (17-59) U/L ALT 9 (4-49) U/L Alkaline Phosphatase 109 (38-126) U/L Troponin I (0.000-0.034) ng/mL Total Protein 6.8 (6.3-8.2) g/dL Albumin 3.5 (3.5-5.0) g/dL Amylase 59 (30-110) U/L Lipase 126 (23-300) U/L Urine Color Urine Appearance (Clear) Urine pH (5.0-8.0) Ur Specific [place] (1.001-1.035) Urine Protein (Negative) Urine Glucose (UA) (Negative) Urine Ketones (Negative) Urine Blood (Negative) Urine Nitrite (Negative) Urine Bilirubin (Negative) Urine Urobilinogen (<2.0) mg/dL Ur Leukocyte Esterase (Negative) Urine RBC (0-5) /hpf Urine WBC (0-5) /hpf Ur Squamous Epith Cells (0-4) /hpf Urine Bacteria (None) /hpf Urine Mucus (None) /hpf Disposition Clinical Impression: Nausea and vomiting, Urinary tract infection Disposition: HOME SELF-CARE Condition: Stable Instructions (If sedation given, give patient instructions): Urinary Tract Infection in Men (ED), Acute Nausea and Vomiting (ED) Additional Instructions: Return to the emergency department if new or worsening symptoms occur. Follow- up with primary care provider and rail assembler in next 1-2 days. Take antibiotic as prescribed for urinary tract infection. Prescriptions: Sulfamethox-Tmp 800-160Mg [Bactrim DS 800-160 mg] 1 tab PO Q12HR 7 Days #14 tab Is patient prescribed a controlled substance at d/c from ED?: No Referrals: Helen Chen MD [Primary Care Provider] - 1-2 days Time of Disposition: 18:12
--- NOTE | 2021-03-11 16:06 | XR ---
EXAMINATION TYPE: XR chest 2V DATE OF EXAM: 03/11/2021 COMPARISON: 03/07/2021 HISTORY: 60-year-old male nausea, vomiting, pain TECHNIQUE: PA and lateral views FINDINGS: Heart normal size. Aorta and pulmonary vasculature within normal limits. Mild interstitial prominence . Mild hyperinflation. No consolidation or pleural effusion seen. IMPRESSION: Possible underlying COPD. Mild interstitial prominence. Correlate to exclude bronchitis or chronic as thma. No focal infiltrate seen.
[2021-03-11 16:50] LABS: Anisocytosis Moderate; Basophils % (A) 0 %; Eosinophils % (A) 0 %; HCT 38.8 % (39.0-53.0); HGB 11.7 gm/dL (13.0-17.5); Hypochromasia Marked; Lymphocytes # (A) 1.6 k/uL (1.0-4.8); Lymphocytes % (A) 17 %; MCH 23.4 pg (25.0-35.0); MCHC 30.1 g/dL (31.0-37.0); MCV 77.9 fL (80.0-100.0); Mean Platelet Volume 7.5; Microcytosis Moderate; Monocytes # (A) 0.3 k/uL (0-1.0); Monocytes % (A) 3 %; Neutrophils # (A) 7.3 k/uL (1.3-7.7); Neutrophils % (A) 78 %; Platelet Count 424 k/uL (150-450); RBC 4.98 m/uL (4.30-5.90); RDW 20.6 % (11.5-15.5); WBC 9.4 k/uL (3.8-10.6)
[2021-03-11] MEDS ORDERED: FAMOTIDINE 20 MG/2 ML VIAL IV STA (16:52)
[2021-03-11] MEDS ORDERED: MAG HYDROX/AL HYDROX/SIMETH 30 ML, HYOSCYAMINE ELIXIR 10 ML, LIDOCAINE VISCOUS 2% 10 ML PO STA ×3 (16:53)
[2021-03-11 16:59] LABS: Appearance,Urine Cloudy (Clear); Bacteria,Urine Occasional /hpf; Bilirubin,Urine Negative (Negative); Blood,Urine Moderate (Negative); Color,Urine Yellow; Glucose,Urine (UA) 4+ (Negative); Ketones,Urine Negative (Negative); Leukocyte Esterase,Urine Negative (Negative); Mucus,Urine Rare /hpf; Nitrite,Urine Negative (Negative); PH, Urine 6.5 (5.0-8.0); Protein,Urine Trace (Negative); RBC,Urine 72 /hpf (0-5); Squamous Epithelial Cell,Urine 1 /hpf (0-4); Urobilinogen,Urine <2.0 mg/dL (<2.0); WBC,Urine 23 /hpf (0-5)
[2021-03-11 17:37] LABS: ALT 9 U/L (4-49); AST 15 U/L (17-59); African American GFR (CKD) >90 (>60 ml/min/1.73 sqM); Albumin 3.5 g/dL (3.5-5.0); Alkaline Phosphatase 109 U/L (38-126); Amylase 59 U/L (30-110); Anion Gap 10 mmol/L; Blood Urea Nitrogen 20 mg/dL (9-20); Carbon Dioxide 24 mmol/L (22-30); Chloride 98 mmol/L (98-107); Glucose 360 mg/dL (74-99); Lipase 126 U/L (23-300); Non-African American GFR(CKD) >90 (>60 ml/min/1.73 sqM); Potassium 3.9 mmol/L (3.5-5.1); Sodium 132 mmol/L (137-145); Total Bilirubin 0.3 mg/dL (0.2-1.3); Total Protein 6.8 g/dL (6.3-8.2)
[2021-03-11] MEDS ORDERED: INSULIN ASPART (NovoLOG) 100 UNIT/ML VIAL SQ ONE (17:58)
[2021-03-11 18:51] VITALS: BP 163/88; PULSE 96; RESP 18
== END 2021-03-11 18:52 | disposition home or self-care (01) ==
LOC: EC 11:49
DX: R11.2 Nausea with vomiting, unspecified (principal); N39.0 Urinary tract infection, site not specified; R10.13 Epigastric pain; E10.9 Type 1 diabetes mellitus without complications; K21.9 Gastro-esophageal reflux disease without esophagitis; E78.5 Hyperlipidemia, unspecified; G40.909 Epilepsy, unspecified, not intractable, without status epilepticus; M19.90 Unspecified osteoarthritis, unspecified site; F32.A Depression, unspecified; Z79.899 Other long term (current) drug therapy
CPT/HCPCS: 36415; 93005; 80053; 82150; 83690; 84484; 85025; 81001; 87086; 71046; 99284; 96374; 96375; J2405

== ENCOUNTER 2021-03-29 12:40 | Inpatient (IN) | payer OTHER ==
[2021-03-29] MEDS ORDERED: VANCOMYCIN IV PER PHARMACY 1 EACH MISC MISCELLANE PRN (13:41)
[2021-03-29] MEDS ORDERED: PIPERACILLIN-TAZOBACTAM 3.375 GM in SODIUM CHLORIDE 0.9% 100 ML IVPB STA (13:41)
[2021-03-29] MEDS ORDERED: VANCOMYCIN 1,000 MG in SODIUM CHLORIDE 0.9% 250 ML IVPB STA (13:51)
--- NOTE | 2021-03-29 13:59 | ED ---
General Adult HPI - General Chief complaint: Shortness of Breath Stated complaint: sob Time Seen by Provider: 03/29/21 12:50 Source: patient, RN notes reviewed, old records reviewed Mode of arrival: wheelchair Limitations: no limitations - History of Present Illness Initial comments: This is a 6-year-old male who is a diabetic. Patient comes in he's got chronic wounds on both of his legs he has a wound on the posterior aspect of his left ankle and the right foot has a large open wound on the sole of his foot. Patient states she's wounds been there for 3 months. Patient states he doesn't know how the started or why they started. Patient states he he went and saw his hogshead hand yesterday and she wanted him in the hospital on IV antibiotics. P atient also complains of some shortness of breath which started last couple of weeks. Patient denies any fever chills or cough per patient denies any chest pain or palpitations. Patient states he got too cold which os but not the posterior. Patient denies any lightheadedness or dizziness. Patient denies any abdominal pain patient denies any nausea or vomiting. - Related Data Home Medications Medication Instructions Recorded Confirmed Omeprazole 20 mg PO DAILY 06/13/17 03/29/21 Pioglitazone HCl [Actos] 15 mg PO DAILY 10/03/18 03/29/21 Diphenox-Atrop 2.5-0.025 mg 1 tab PO BID PRN 11/17/19 03/29/21 [Lomotil] Triamcinolone 0.5% Cream [Kenalog 1 applic TOPICAL DAILY 01/19/20 03/29/21 0.5% Cream] Insulin Glargine [Lantus Vial] 50 unit SQ DAILY 05/15/20 03/29/21 Pregabalin [Lyrica] 50 mg PO DAILY 05/15/20 03/29/21 Rosuvastatin [Crestor] 10 mg PO HS 05/15/20 03/29/21 Mupirocin 2% Oint [Bactroban 2% 1 applic TOPICAL BID 12/29/20 03/29/21 Oint] Phenytoin Sodium Extended 30 mg PO BID 02/09/21 03/29/21 [Dilantin] Acetaminophen [Tylenol] 325 mg PO Q6H PRN 03/29/21 03/29/21 Previous Rx's Medication Instructions Recorded traMADol HCL 50 mg PO Q6H PRN 3 Days #12 tab 02/22/21 Ondansetron Odt [Zofran Odt] 4 mg PO Q8HR PRN 3 Days #9 tab 03/07/21 Allergies Allergy/AdvReac Type Severity Reaction Status Date / Time No Known Allergies Allergy Verified 03/29/21 13:23 Review of Systems ROS Statement: Those systems with pertinent positive or pertinent negative responses have been documented in the HPI. ROS Other: All systems not noted in ROS Statement are negative. Past Medical History Past Medical History: Cancer, Diabetes Mellitus, GERD/Reflux, Hyperlipidemia, Osteoarthritis (OA), Seizure Disorder Additional Past Medical History / Comment(s): IDDM type 1, wounds to upper back from scratching and L leg-seen at [facility], past L lower extremity cellulitis with sepsis, L wrist cancerous tumor removed, past seizure over 6 months ago, arthritis L knee, vertigo, occasional diarrhea, pt cannot recall why he takes lyrica. 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 Past Anesthesia/Blood Transfusion Reactions: No Reported Reaction Past Psychological History: Depression Smoking Status: Never smoker Past Alcohol Use History: None Reported Past Drug Use History: None Reported - Past Family History Father Family Medical History: Myocardial Infarction ([place]) Additional Family Medical History / Comment(s): Father of a [place] at the age of 57yrs. Mother Family Medical History: Cancer Additional Family Medical History / Comment(s): Mother from cancer at the age of 61 or 62 . Pt cannot recall type of cancer. Sister(s) Family Medical History: Diabetes Mellitus Additional Family Medical History / Comment(s): Sister had DM type 1. She is . General Exam - General Exam Comments Initial Comments: GENERAL: Patient is well-developed and well-nourished. Patient is nontoxic and well- hydrated and is in no acute distress. ENT: Neck is soft and supple. No significant lymphadenopathy is noted. Oropharynx is clear. Moist mucous membranes. Neck has full range of motion without eliciting any pain. EYES: The sclera were anicteric and conjunctiva were pink and moist. Extraocular movements were intact and pupils were equal round and reactive to light. Eyelids were unremarkable. PULMONARY: Normal breath sounds CARDIOVASCULAR: There is a regular rate and rhythm without any murmurs gallops or rubs. ABDOMEN: Soft and nontender with normal bowel sounds. SKIN: Patient has a wound to the posterior aspect of his left ankle there is no sign of infection it does appear to be healing and it does appear to be chronic. Patient also has a wound on the sole of his right foot which is large and looks chronic and there is no obvious signs of infection. NEUROLOGIC: Patient is alert and oriented x3. Cranial nerves II through XII are grossly intact. Motor and sensory are also intact. Normal speech, volume and content. Symmetrical smile. MUSCULOSKELETAL: Normal extremities with adequate strength and full range of motion. LYMPHATICS: No significant lymphadenopathy is noted PSYCHIATRIC: Normal psychiatric evaluation. Limitations: no limitations Course Vital Signs 03/29/21 03/29/21 03/29/21 12:49 14:16 14:25 Temperature 97.6 F Pulse Rate 125 H 101 H 94 Respiratory 20 18 Rate Blood Pressure 113/69 132/88 O2 Sat by Pulse 99 100 Oximetry Medical Decision Making - Medical Decision Making EKG shows sinus tachycardia at a rate of 108 bpm MN interval is on 26 QRS is 66 QT interval 310 QTC is 4:15. Patient's EKG shows no ST segment elevation or depression. Chest x-ray shows no acute abnormality. Patient's sugar was over 500 so he received 10 units of NovoLog. I spoke with Dr. Chen he agreed to admit the patient admitted the patient wrote admitting orders. - Lab Data Result diagrams: 03/29/21 13:57 03/29/21 13:57 Lab Results 03/29/21 03/29/21 03/29/21 Range/Units 13:57 13:57 13:57 WBC 7.6 (3.8-10.6) k/uL RBC 5.19 (4.30-5.90) m/uL Hgb 12.2 L (13.0-17.5) gm/dL Hct 41.1 (39.0-53.0) % MCV 79.2 L (80.0-100.0) fL MCH 23.6 L (25.0-35.0) pg MCHC 29.8 L (31.0-37.0) g/dL RDW 20.3 H (11.5-15.5) % Plt Count 549 H (150-450) k/uL MPV 7.1 Neutrophils % 79 % Lymphocytes % 14 % Monocytes % 5 % Eosinophils % 1 % Basophils % 1 % Neutrophils # 6.1 (1.3-7.7) k/uL Lymphocytes # 1.0 (1.0-4.8) k/uL Monocytes # 0.3 (0-1.0) k/uL Eosinophils # 0.0 (0-0.7) k/uL Basophils # 0.1 (0-0.2) k/uL Hypochromasia Marked Anisocytosis Moderate Microcytosis Moderate PT 9.4 (9.0-12.0) sec INR 0.9 (<1.2) APTT 25.4 (22.0-30.0) sec D-Dimer 0.49 (<0.60) mg/L FEU Sodium 133 L (137-145) mmol/L Potassium 5.7 H (3.5-5.1) mmol/L Chloride 95 L (98-107) mmol/L Carbon Dioxide 29 (22-30) mmol/L Anion Gap 9 mmol/L BUN 12 (9-20) mg/dL Creatinine 0.85 (0.66-1.25) mg/dL Est GFR (CKD-EPI)AfAm >90 (>60 ml/min/1.73 sqM) Est GFR (CKD-EPI)NonAf >90 (>60 ml/min/1.73 sqM) Glucose 540 H* (74-99) mg/dL Plasma Lactic Acid Michael (0.7-2.0) mmol/L Calcium 9.7 (8.4-10.2) mg/dL Total Bilirubin 0.5 (0.2-1.3) mg/dL AST 19 (17-59) U/L ALT 10 (4-49) U/L Alkaline Phosphatase 141 H (38-126) U/L Troponin I (0.000-0.034) ng/mL Total Protein 7.5 (6.3-8.2) g/dL Albumin 3.9 (3.5-5.0) g/dL 03/29/21 03/29/21 Range/Units 13:57 13:57 WBC (3.8-10.6) k/uL RBC (4.30-5.90) m/uL Hgb (13.0-17.5) gm/dL Hct (39.0-53.0) % MCV (80.0-100.0) fL MCH (25.0-35.0) pg MCHC (31.0-37.0) g/dL RDW (11.5-15.5) % Plt Count (150-450) k/uL MPV Neutrophils % % Lymphocytes % % Monocytes % % Eosinophils % % Basophils % % Neutrophils # (1.3-7.7) k/uL Lymphocytes # (1.0-4.8) k/uL Monocytes # (0-1.0) k/uL Eosinophils # (0-0.7) k/uL Basophils # (0-0.2) k/uL Hypochromasia Anisocytosis Microcytosis PT (9.0-12.0) sec INR (<1.2) APTT (22.0-30.0) sec D-Dimer (<0.60) mg/L FEU Sodium (137-145) mmol/L Potassium (3.5-5.1) mmol/L Chloride (98-107) mmol/L Carbon Dioxide (22-30) mmol/L Anion Gap mmol/L BUN (9-20) mg/dL Creatinine (0.66-1.25) mg/dL Est GFR (CKD-EPI)AfAm (>60 ml/min/1.73 sqM) Est GFR (CKD-EPI)NonAf (>60 ml/min/1.73 sqM) Glucose (74-99) mg/dL Plasma Lactic Acid Michael 1.5 (0.7-2.0) mmol/L Calcium (8.4-10.2) mg/dL Total Bilirubin (0.2-1.3) mg/dL AST (17-59) U/L ALT (4-49) U/L Alkaline Phosphatase (38-126) U/L Troponin I <0.012 (0.000-0.034) ng/mL Total Protein (6.3-8.2) g/dL Albumin (3.5-5.0) g/dL Disposition Clinical Impression: Ulcer of foot, chronic, Ulcer of left lower leg, Hyperglycemia, Dyspnea Disposition: ADMITTED IP TO THIS HOSP Referrals: Helen Chen MD [Primary Care Provider] - 1-2 days Time of Disposition: 14:45
[2021-03-29 14:19] LABS: Anisocytosis Moderate; Basophils # (A) 0.1 k/uL (0-0.2); Basophils % (A) 1 %; Eosinophils % (A) 1 %; HCT 41.1 % (39.0-53.0); HGB 12.2 gm/dL (13.0-17.5); Hypochromasia Marked; Lymphocytes % (A) 14 %; MCH 23.6 pg (25.0-35.0); MCHC 29.8 g/dL (31.0-37.0); MCV 79.2 fL (80.0-100.0); Mean Platelet Volume 7.1; Microcytosis Moderate; Monocytes # (A) 0.3 k/uL (0-1.0); Monocytes % (A) 5 %; Neutrophils # (A) 6.1 k/uL (1.3-7.7); Neutrophils % (A) 79 %; Platelet Count 549 k/uL (150-450); RBC 5.19 m/uL (4.30-5.90); RDW 20.3 % (11.5-15.5); WBC 7.6 k/uL (3.8-10.6)
--- NOTE | 2021-03-29 14:20 | XR ---
EXAMINATION TYPE: XR chest 2V DATE OF EXAM: 03/29/2021 COMPARISON: Chest x-ray March 11, 2021 HISTORY: Difficulty in breathing. TECHNIQUE: Frontal and lateral views of the chest are obtained. FINDINGS: There is no suspicious focal air space opacity, pleural effusion, or pneumothorax seen. T he cardiac silhouette size remains within normal limits. The osseous structures are intact. Overlyi ng EKG leads are now present. IMPRESSION: No acute process. No significant change from prior.
[2021-03-29 14:28] LABS: ALT 10 U/L (4-49); AST 19 U/L (17-59); African American GFR (CKD) >90 (>60 ml/min/1.73 sqM); Albumin 3.9 g/dL (3.5-5.0); Alkaline Phosphatase 141 U/L (38-126); Anion Gap 9 mmol/L; Blood Urea Nitrogen 12 mg/dL (9-20); Calcium 9.7 mg/dL (8.4-10.2); Carbon Dioxide 29 mmol/L (22-30); Chloride 95 mmol/L (98-107); Non-African American GFR(CKD) >90 (>60 ml/min/1.73 sqM); Potassium 5.7 mmol/L (3.5-5.1); Sodium 133 mmol/L (137-145); Total Bilirubin 0.5 mg/dL (0.2-1.3); Total Protein 7.5 g/dL (6.3-8.2)
[2021-03-29 14:31] LABS: Glucose 540 mg/dL (74-99)
[2021-03-29 14:39] LABS: INR 0.9 (<1.2); Partial Thromboplastin Time 25.4 sec (22.0-30.0); Prothrombin Time 9.4 sec (9.0-12.0)
[2021-03-29] MEDS ORDERED: INSULIN ASPART (NovoLOG) 100 UNIT/ML VIAL SQ ONE (14:41)
[2021-03-29] MEDS ORDERED: SODIUM CHLORIDE 0.9% 1,000 ML IV ONE (14:46)
[2021-03-29 16:35] LABS: Glucose,Whole Blood 328 mg/dL (75-99)
[2021-03-29 19:35] LABS: Glucose,Whole Blood 298 mg/dL (75-99)
[2021-03-29] MEDS ORDERED: ONDANSETRON ODT 4 MG TAB PO PRN (20:34)
[2021-03-29] MEDS ORDERED: DIPHENOX-ATROP 2.5-0.025 MG 1 EACH TAB PO PRN (20:34)
[2021-03-29] MEDS ORDERED: ACETAMINOPHEN TAB 325 MG TAB PO PRN (20:34)
[2021-03-29] MEDS ORDERED: traMADol 50 MG TAB PO PRN (20:34)
[2021-03-29] MEDS ORDERED: NON FORMULARY DRUG (Phenytoin Sodium Extended [Dilantin] 30 MG Capsule) PO SCH (21:00)
--- NOTE | 2021-03-29 22:03 | P.CONS ---
History of Present Illness - Reason for Consult Consult date: 03/29/21 Right foot and left heel wound Requesting physician: Helen Chen - Chief Complaint Nonhealing wounds sent by podiatry - History of Present Illness History of Present Illness : Patient is a 60-year male who was recently admitted at [facility] in February 2021 and this patient did have a wound on the right foot plantar aspect and left posterior h eel area that was surgically debrided culture were negative for any resistant pathogen he received 2 weeks of IV antibiotic therapy and was discharged with local wound care he was supposed to follow-up in the wound care center with me but the patient never showed up patient apparently did went to see his astrophysics professor Dr. Major yesterday who advised him to go to the hospital for IV antibiotic therapy patient denies having any fever or any chills, patient denies having any pain to the right foot or the left posterior heel wound area there is no swelling no redness no drainage patient denies having any chest pain shortness of breath or cough no nausea vomiting abdominal pain or diarrhea patient on presentation to the hospital was afebrile did have a normal white count patient was evaluated by the ER physician chest x-ray was negative he was started on vancomycin and Zosyn was admitted to hospital infectious disease was consulted for further management of local wound care as well as antibiotic therapy Review of system: CONSTITUTIONAL: Positive for weakness denies fever. EYES: No complaint. ENT: No complaint. RESPIRATORY: No complaint. CARDIOVASCULAR: No complaint. GENITOURINARY: No complaint. GASTROINTESTINAL: No complaint. MUSCULOSKELETAL: As per history of present illness. INTEGUMENTARY : As per history of present illness. PSYCHOLOGIC: No complaint. ENDOCRINE: No complaint. NEUROLOGIC: No complaint. Past medical history : Reviewed, documented below Past surgical history : Reviewed, documented below Social history: Reviewed, documented below Medications: Reviewed, as documented below EXAMINATION: Vital sigans= Reviewed and documented below GENERAL DESCRIPTION: Middle-aged male lying in bed, no distress. No tachypnea or accessory muscle of respiration use. HEENT: Shows Pallor , no scleral icterus. Oral mucous membrane is dry. NECK: Trachea central, no thyromegaly. LUNGS: Unlabored breathing. Clear to auscultation anteriorly. No wheeze or crackle. HEART: S1, S2, regular rate and rhythm. ABDOMEN: Soft, no tenderness , guarding or rigidity EXTREMITIES: Right foot plantar wound base clean with no slough tissue no surrounding redness warmth or any drainage, left posterior heel wound with no slough tissue no surrounding redness or any drainage SKIN: No rash, no masses palpable. NEUROLOGICAL: The patient is awake, alert, oriented x3, mood and affect normal. LABS AND RADIOLOGY: Reviewed results see below Assessment : 1patient with right foot plantar wound for surgical pain this patient did have department of the wound in February 2021 cultures were negative patient wound does not look infected with no slough tissue no surrounding redness patient did not have any fever or elevated white count we will recommend most local wound care. 2patient with left posterior heel wound with no slough tissue or surrounding redness or drainage Plan: 1-discontinue vancomycin and Zosyn 2-local wound care to the right foot and left posterior heel wound with dry Aquacel silver dressing 3-May consider short course of oral Keflex We will follow on clinical condition and cultures to further adjust medication if needed Thank you for this consultation we will follow the patient along with you Past Medical History Past Medical History: Cancer, Diabetes Mellitus, GERD/Reflux, Hyperlipidemia, Osteoarthritis (OA), Seizure Disorder Additional Past Medical History / Comment(s): IDDM type 1, wounds to upper back from scratching and L leg-seen at [facility], past L lower extremity cellulitis with s epsis, L wrist cancerous tumor removed, past seizure over 6 months ago, arthritis L knee, vertigo, occasional diarrhea, pt cannot recall why he takes lyrica. 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 Past Anesthesia/Blood Transfusion Reactions: No Reported Reaction Past Psychological History: Depression Smoking Status: Never smoker Past Alcohol Use History: None Reported Past Drug Use History: None Reported - Past Family History Father Family Medical History: Myocardial Infarction ([place]) Additional Family Medical History / Comment(s): Father of a [place] at the age of 57yrs. Mother Family Medical History: Cancer Additional Family Medical History / Comment(s): Mother from cancer at the age of 61 or 62 . Pt cannot recall type of cancer. Sister(s) Family Medical History: Diabetes Mellitus Additional Family Medical History / Comment(s): Sister had DM type 1. She is . Medications and Allergies Home Medications Medication Instructions Recorded Confirmed Type Omeprazole 20 mg PO DAILY 06/13/17 03/29/21 History Pioglitazone HCl [Actos] 15 mg PO DAILY 10/03/18 03/29/21 History Diphenox-Atrop 2.5-0.025 mg 1 tab PO BID PRN 11/17/19 03/29/21 History [Lomotil] Triamcinolone 0.5% Cream [Kenalog 1 applic TOPICAL DAILY 01/19/20 03/29/21 H istory 0.5% Cream] Insulin Glargine [Lantus Vial] 50 unit SQ DAILY 05/15/20 03/29/21 History Pregabalin [Lyrica] 50 mg PO DAILY 05/15/20 03/29/21 History Rosuvastatin [Crestor] 10 mg PO HS 05/15/20 03/29/21 History Mupirocin 2% Oint [Bactroban 2% 1 applic TOPICAL BID 12/29/20 03/29/21 History Oint] Phenytoin Sodium Extended 30 mg PO BID 02/09/21 03/29/21 History [Dilantin] traMADol HCL 50 mg PO Q6H PRN 3 Days #12 tab 02/22/21 03/29/21 Rx Ondansetron Odt [Zofran Odt] 4 mg PO Q8HR PRN 3 Days #9 tab 03/07/21 03/29/21 Rx Acetaminophen [Tylenol] 325 mg PO Q6H PRN 03/29/21 03/29/21 History Allergies Allergy/AdvReac Type Severity Reaction Status Date / Time No Known Allergies Allergy Verified 03/29/21 13:23 Physical Exam Vitals: Vital Signs Temp Pulse Resp BP Pulse Ox 03/29/21 15:59 98 18 143/81 99 03/29/21 14:25 94 18 132/88 100 03/29/21 14:16 101 H 03/29/21 12:49 97.6 F 125 H 20 113/69 99 Intake and Output 03/29/21 03/29/21 03/29/21 06:59 14:59 22:59 Other: Weight 49.895 kg Results CBC & Chem 7: 03/29/21 13:57 03/29/21 13:57 Labs: Abnormal Lab Results - Last 24 Hours (Table) 03/29/21 03/29/21 03/29/21 Range/Units 13:57 13:57 16:33 Hgb 12.2 L (13.0-17.5) gm/dL MCV 79.2 L (80.0-100.0) fL MCH 23.6 L (25.0-35.0) pg MCHC 29.8 L (31.0-37.0) g/dL RDW 20.3 H (11.5-15.5) % Plt Count 549 H (150-450) k/uL Sodium 133 L (137-145) mmol/L Potassium 5.7 H (3.5-5.1) mmol/L Chloride 95 L (98-107) mmol/L Glucose 540 H* (74-99) mg/dL POC Glucose (mg/dL) 328 H (75-99) mg/dL Alkaline Phosphatase 141 H (38-126) U/L
[2021-03-29] MEDS: MUPIROCIN 2% OINT 22 GM TUBE TOPICAL SCH (22:41)
[2021-03-29] MEDS: CEPHALEXIN 500 MG CAP PO SCH (22:42)
[2021-03-29] MEDS: ATORVASTATIN 20 MG TAB PO SCH (22:42)
[2021-03-30] MEDS ORDERED: PIPERACILLIN-TAZOBACTAM 3.375 GM in SODIUM CHLORIDE 0.9% 100 ML IVPB SCH ×2
[2021-03-30] MEDS ORDERED: VANCOMYCIN 1,000 MG in SODIUM CHLORIDE 0.9% 250 ML IVPB SCH (03:00)
[2021-03-30 07:09] LABS: Glucose,Whole Blood 170 mg/dL (75-99)
[2021-03-30 08:56] LABS: ALT 8 U/L (10-49); AST 11 U/L (14-35); African American GFR (CKD) 118.9 (60.0-200.0); Albumin 3.4 g/dL (3.8-4.9); Albumin/Globulin Ratio 1.26 (1.60-3.17); Alkaline Phosphatase 107 U/L (41-126); BUN/Creat Ratio 14.43 Ratio (12.00-20.00); Blood Urea Nitrogen 10.1 mg/dL (9.0-27.0); Calcium 8.8 mg/dL (8.7-10.3); Carbon Dioxide 27.8 mmol/L (20.0-27.5); Chloride 101 mmol/L (96-109); Globulin 2.7 g/dL (1.6-3.3); Glucose 178 mg/dL (70-110); Non-African American GFR(CKD) 102.6 (60.0-200.0); Potassium 3.8 mmol/L (3.5-5.5); Sodium 137 mmol/L (135-145); Total Bilirubin <0.20 mg/dL (0.30-1.20); Total Protein 6.1 g/dL (6.2-8.2)
[2021-03-30] MEDS ORDERED: PHENYTOIN ORAL SUSP 100 MG/4 ML CUP PO SCH (09:00)
[2021-03-30] MEDS: INSULIN DETEMIR (LEVEMIR) 100 UNIT/ML SYR SQ SCH (09:02)
[2021-03-30] MEDS: PIOGLITAZONE 15 MG TAB PO SCH (09:03)
[2021-03-30] MEDS: CEPHALEXIN 500 MG CAP PO SCH ×3 (09:03→21:26)
[2021-03-30] MEDS: PANTOPRAZOLE 40 MG TABLET PO SCH (09:03)
[2021-03-30] MEDS: PREGABALIN 50 MG CAP PO SCH (09:03)
[2021-03-30 09:10] LABS: HCT 33.9 % (39.6-50.0); HGB 9.9 g/dL (13.0-17.0); MCHC 29.2 g/dL (32.0-37.0); MCV 75.3 fL (80.0-97.0); Mean Platelet Volume 9.3 fL (9.5-12.2); Platelet Count 491 X 10*3/uL (140-440); RDW 22.8 % (11.5-14.5)
[2021-03-30] MEDS: MUPIROCIN 2% OINT 22 GM TUBE TOPICAL SCH ×2 (09:57→21:26)
[2021-03-30 10:18] LABS: Basophils # (A) 0.05 X 10*3/uL (0.00-0.10); Basophils % (A) 0.8 %; Eosinophils % (A) 1.6 %; Lymphocytes # (A) 1.96 X 10*3/uL (0.90-5.00); Lymphocytes % (A) 32.1 %; Monocytes # (A) 0.45 X 10*3/uL (0.20-1.00); Monocytes % (A) 7.4 %; Neutrophils # (A) 3.52 X 10*3/uL (1.80-7.70); Neutrophils % (A) 57.8 %
[2021-03-30 10:19] LABS: Anisocytosis (M) 2+; Hypochromasia (M) 2+; Microcytosis (M) 2+
[2021-03-30 11:46] LABS: Glucose,Whole Blood 304 mg/dL (75-99)
[2021-03-30] MEDS ORDERED: Potassium Replacement Protocol 1 EACH MISC MISCELLANE PRN (12:12)
[2021-03-30] MEDS ORDERED: POTASSIUM CHLORIDE ER 20 MEQ TAB.ER PO SCH (13:00)
[2021-03-30] MEDS: PHENYTOIN ORAL SUSP 100 MG/4 ML CUP PO SCH ×3 (13:37→21:26)
--- NOTE | 2021-03-30 15:38 | P.HPIM ---
History of Present Illness H&P Date: 03/29/21 Pietro Ryder, is a 60 year old male who presented to [facility] emergency room with a chief complaint of bilateral feet pain and open ulcers that has been present for about 3 months, patient was seen by his [employer] consultant who advised him to go to emergency room to be admitted and receive IV antibiotics. Patient was also complaining of shortness of breath with any activity. He was evaluated in the emergency room vital examination on presentation revealed a temperature of 97.6 pulse 125 respiration 20 blood pressure 113/69 pulse ox 99% on room air Laboratory data revealed a white blood count of 7.6 hemoglobin 12.2 platelet count 549 sodium 133 potassium 5.7 chloride 95 CO2 29 glucose level was 540 BUN 12 creatinine 0.85 troponin level was less than 0.012 COVID-19 PCR was negative Testing in the emergency room revealed EKG revealed sinus tachycardia with premature supraventricular complexes and premature ventricular complexes otherwise normal EKG, chest x-ray revealed no acute process Patient was admitted to medical floor for further evaluation and treatment. Past medical history is significant for history of diabetes mellitus history of hyperlipidemia history of osteoarthritis history of seizure disorder and history of peripheral neuropathy. Patient also has known history of open ulcers in the lower extremities he was followed at the wound care clinic. On review of systems there is no fever or chills no headache or dizziness no chest pain patient stated he had some shortness of breath with activity there is no nausea or vomiting no abdominal pain no diarrhea no blood in the stools no burning with urination no frequency or urgency and no hematuria Past Medical History Past Medical History: Cancer, Diabetes Mellitus, GERD/Reflux, Hyperlipidemia, Osteoarthritis (OA), Seizure Disorder Additional Past Medical History / Comment(s): IDDM type 1, wounds to upper back from scratching and L leg-seen at [facility], past L lower extremity cellulitis with sepsis, L wrist cancerous tumor removed, past seizure over 6 months ago, arthritis L knee, vertigo, occasional diarrhea, pt cannot recall why he takes lyrica. 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 Past Anesthesia/Blood Transfusion Reactions: No Reported Reaction Past Psychological History: Depression Smoking Status: Never smoker Past Alcohol Use History: None Reported Past Drug Use History: None Reported - Past Family History Father Family Medical History: Myocardial Infarction ([place]) Additional Family Medical History / Comment(s): Father of a [place] at the age of 57yrs. Mother Family Medical History: Cancer Additional Family Medical History / Comment(s): Mother from cancer at the age of 61 or 62 . Pt cannot recall type of cancer. Sister(s) Family Medical History: Diabetes Mellitus Additional Family Medical History / Comment(s): Sister had DM type 1. She is . Medications and Allergies Home Medications Medication Instructions Recorded Confirmed Type Omeprazole 20 mg PO DAILY 06/13/17 03/29/21 History Pioglitazone HCl [Actos] 15 mg PO DAILY 10/03/18 03/29/21 History Diphenox-Atrop 2.5-0.025 mg 1 tab PO BID PRN 11/17/19 03/29/21 History [Lomotil] Triamcinolone 0.5% Cream [Kenalog 1 applic TOPICAL DAILY 01/19/20 03/29/21 History 0.5% Cream] Insulin Glargine [Lantus Vial] 50 unit SQ DAILY 05/15/20 03/29/21 History Pregabalin [Lyrica] 50 mg PO DAILY 05/15/20 03/29/21 History Rosuvastatin [Crestor] 10 mg PO HS 05/15/20 03/29/21 History Mupirocin 2% Oint [Bactroban 2% 1 applic TOPICAL BID 12/29/20 03/29/21 History Oint] Phenytoin Sodium Extended 30 mg PO BID 02/09/21 03/29/21 History [Dilantin] traMADol HCL 50 mg PO Q6H PRN 3 Days #12 tab 02/22/21 03/29/21 Rx Ondansetron Odt [Zofran Odt] 4 mg PO Q8HR PRN 3 Days #9 tab 03/07/21 03/29/21 Rx Acetaminophen [Tylenol] 325 mg PO Q6H PRN 03/29/21 03/29/21 History Allergies Allergy/AdvReac Type Severity Reaction Status Date / Time No Known Allergies Allergy Verified 01/21/22 13:23 Physical Exam Vitals: Vital Signs Temp Pulse Resp BP Pulse Ox 03/29/21 14:25 94 18 132/88 100 03/29/21 14:16 101 H 03/29/21 12:49 97.6 F 125 H 20 113/69 99 Intake and Output 03/29/21 03/29/21 03/29/21 06:59 14:59 22:59 Other: Weight 49.895 kg In general patient is alert and oriented x 3 in no distress HEENT head normocephalic and atraumatic Neck is supple no JVD no goiter no lymphadenopathy no carotid bruit Chest examination is clear to auscultation no crackles no wheezing Cardiac exam reveals regular heart sounds S1 and S2 no gallops no murmurs Abdomen is soft nontender no organomegaly with normal bowel sounds Extremity exam reveals no edema no cyanosis or clubbing, there is an ulcer on the plantar aspect of the right foot there is also on ulcer on the left posterior heel area Neurological examination reveals no gross focal deficits Results CBC & Chem 7: 03/30/21 05:15 03/30/21 05:15 Labs: Abnormal Lab Results - Last 24 Hours (Table) 03/29/21 03/29/21 Range/Units 13:57 13:57 Hgb 12.2 L (13.0-17.5) gm/dL MCV 79.2 L (80.0-100.0) fL MCH 23.6 L (25.0-35.0) pg MCHC 29.8 L (31.0-37.0) g/dL RDW 20.3 H (11.5-15.5) % Plt Count 549 H (150-450) k/uL Sodium 133 L (137-145) mmol/L Potassium 5.7 H (3.5-5.1) mmol/L Chloride 95 L (98-107) mmol/L Glucose 540 H* (74-99) mg/dL Alkaline Phosphatase 141 H (38-126) U/L Assessment and Plan Plan: Bilateral feet ulcers, patient states no significant improvement with outpatient treatment at the wound care center, he was seen by his [employer] consultant yesterday and was advised to come to emergency room for IV antibiotics Underlying history of insulin-dependent diabetes mellitus, glucose was very elevated on presentation, home medication resumed, insulin sliding scale added, questionable compliance with medications at home Underlying history of seizure disorder, Underlying history of peripheral neuropathy Underlying history of hyperlipidemia At this time patient is admitted to medical floor he was started on IV antibiotics Consultation for infectious disease and vascular surgery initiated Will follow closely
--- NOTE | 2021-03-30 15:43 | P.PN ---
Subjective Progress Note Date: 03/30/21 Pietro Ryder, is a 60 year old male who presented to [facility] emergency room with a chief complaint of bilateral feet pain and open ulcers that has been present for about 3 months, patient was seen by his childcare provider who advised him to go to emergency room to be admitted and receive IV antibiotics. Patient was also complaining of shortness of breath with any activity. He was evaluated in the emergency room vital examination on presentation revealed a temperature of 97.6 pulse 125 respiration 20 blood pressure 113/69 pulse ox 99% on room air Laboratory data revealed a white blood count of 7.6 hemoglobin 12.2 platelet count 549 sodium 133 potassium 5.7 chloride 95 CO2 29 glucose level was 540 BUN 12 creatinine 0.85 troponin level was less than 0.012 COVID-19 PCR was negative Testing in the emergency room revealed EKG revealed sinus tachycardia with premature supraventricular complexes and premature ventricular complexes otherwise normal EKG, chest x-ray revealed no acute process Patient was admitted to medical floor for further evaluation and treatment. Past medical history is significant for history of diabetes mellitus history of hyperlipidemia history of osteoarthritis history of seizure disorder and history of peripheral neuropathy. Patient also has known history of open ulcers in the lower extremities he was followed at the wound care clinic. On review of systems there is no fever or chills no headache or dizziness no chest pain patient stated he had some shortness of breath with activity there is no nausea or vomiting no abdominal pain no diarrhea no blood in the stools no burning with urination no frequency or urgency and no hematuria On 03/30/2021 patient was seen and examined on the medical floor he is alert and oriented 3 in no apparent distress he is complaining of bilateral lower extremity discomfort otherwise he denies any complaints, shortness of breath has resolved, patient had significantly elevated glucose level on presentation, whi ch is now under good control, there is no fever or chills no headache or dizziness no chest pain no shortness of breath no cough no nausea or vomiting no abdominal pain no diarrhea and no urinary symptoms. Patient was seen by Dr. Moran, infectious disease, we are awaiting evaluation by vascular surgery, possible discharge to home in the next 1-2 days. Importance of compliance with medications and insulin at home discussed in details with patient. Objective - Vital Signs Vital signs: Vital Signs Temp 97.8 F 03/30/21 14:00 Pulse 91 03/30/21 14:00 Resp 16 03/30/21 14:00 BP 134/73 03/30/21 14:00 Pulse Ox 98 03/30/21 14:00 Intake & Output 03/29/21 03/30/21 03/30/21 18:59 06:59 18:59 Intake Total 640 Output Total 2 Balance 638 Weight 49.895 kg Intake: Oral 640 Output: Urine 2 Other: Voiding Method Toilet Urinal - Exam In general patient is alert and oriented x 3 in no distress HEENT head normocephalic and atraumatic Neck is supple no JVD no goiter no lymphadenopathy no carotid bruit Chest examination is clear to auscultation no crackles no wheezing Cardiac exam reveals regular heart sounds S1 and S2 no gallops no murmurs Abdomen is soft nontender no organomegaly with normal bowel sounds Extremity exam reveals no edema no cyanosis or clubbing, there is an ulcer on the plantar aspect of the right foot there is also on ulcer on the left posterior heel area Neurological examination reveals no gross focal deficits - Labs CBC & Chem 7: 03/30/21 05:15 03/30/21 05:15 Labs: Abnormal Lab Results - Last 24 Hours (Table) 03/29/21 03/29/21 03/30/21 Range/Units 16:33 19:31 05:15 Hgb 9.9 L (13.0-17.0) g/dL Hct 33.9 L (39.6-50.0) % MCV 75.3 L (80.0-97.0) fL MCH 22.0 L (27.0-32.0) pg MCHC 29.2 L (32.0-37.0) g/dL RDW 22.8 H (11.5-14.5) % Plt Count 491 H (140-440) X 10*3/uL Plt Count Comment INCREASED A MPV 9.3 L (9.5-12.2) fL Carbon Dioxide (20.0-27.5) mmol/L Anion Gap (10.00-18.00) mmol/L Glucose (70-110) mg/dL POC Glucose (mg/dL) 328 H 298 H (75-99) mg/dL Total Bilirubin (0.30-1.20) mg/dL AST (14-35) U/L ALT (10-49) U/L Total Protein (6.2-8.2) g/dL Albumin (3.8-4.9) g/dL Albumin/Globulin Ratio (1.60-3.17) g/dL 03/30/21 03/30/21 03/30/21 Range/Units 05:15 07:08 11:44 Hgb (13.0-17.0) g/dL Hct (39.6-50.0) % MCV (80.0-97.0) fL MCH (27.0-32.0) pg MCHC (32.0-37.0) g/dL RDW (11.5-14.5) % Plt Count (140-440) X 10*3/uL Plt Count Comment MPV (9.5-12.2) fL Carbon Dioxide 27.8 H (20.0-27.5) mmol/L Anion Gap 8.20 L (10.00-18.00) mmol/L Glucose 178 H (70-110) mg/dL POC Glucose (mg/dL) 170 H 304 H (75-99) mg/dL Total Bilirubin <0.20 L (0.30-1.20) mg/dL AST 11 L (14-35) U/L ALT 8 L (10-49) U/L Total Protein 6.1 L (6.2-8.2) g/dL Albumin 3.4 L (3.8-4.9) g/dL Albumin/Globulin Ratio 1.26 L (1.60-3.17) g/dL Assessment and Plan Plan: Bilateral feet ulcers, patient states no significant improvement with outpatient treatment at the wound care center, he was seen by his childcare provider yesterday and was advised to come to emergency room for IV antibiotics Underlying history of insulin-dependent diabetes mellitus, glucose was very elevated on presentation, home medication resumed, insulin sliding scale added, questionable compliance with medications at home Underlying history of seizure disorder, again there is probably noncompliance with medication Dilantin level was less than 3.0 at this time Dilantin dose was increased to 30 mg 3 times a day Will monitor closely Underlying history of peripheral neuropathy Underlying history of hyperlipidemia At this time patient is admitted to medical floor he was started on IV antibiotics Consultation for infectious disease and vascular surgery initiated Will follow closely
[2021-03-30 16:27] LABS: Glucose,Whole Blood 171 mg/dL (75-99)
[2021-03-30 20:17] LABS: Glucose,Whole Blood 171 mg/dL (75-99)
[2021-03-30] MEDS: ATORVASTATIN 20 MG TAB PO SCH (21:26)
--- NOTE | 2021-03-30 22:22 | P.PN ---
Subjective Progress Note Date: 03/30/21 Principal diagnosis: Right foot wound and left posterior heel wound and a question of cellulitis Patient is a 62-year-old male with a past medical history significant for a nonhealing wound on the plantar aspect of the right foot and left posterior heel area patient was sent to the ER by his ore fielder concerning for infection in this patient with no fever or elevated white count. On today's evaluation that is 03/30/2021 the patient remains to be afebrile, the patient is breathing comfortably, no chest pain shortness of breath or cough, no nausea no vomiting no abdominal pain and denies pain to the bilateral foot wound area Objective - Vital Signs Vital signs: Vital Signs Temp 98.1 F 03/30/21 19:15 Pulse 87 03/30/21 19:17 Resp 15 03/30/21 19:17 BP 147/80 03/30/21 19:15 Pulse Ox 98 03/30/21 19:15 Intake & Output 03/30/21 03/30/21 03/31/21 06:59 18:59 06:59 Intake Total 640 1080 Output Total 2 Balance 638 1080 Intake: Oral 640 1080 Output: Urine 2 Other: Voiding Method Toilet Toilet Urinal Urinal # Voids 3 - Exam GENERAL DESCRIPTION:[ Patient is awake and alert in no distress] HEENT: [Oral mucosa is dry and no pharyngeal erythema] RESPIRATORY SYSTEM: [Unlabored breathing clear to auscultation] CARDIA VASCULAR SYSTEM: [S1-S2 regular rate and rhythm no murmur] GI: [Abdominal soft there's no tenderness no organomegaly] EXTREMITIES: [Bilateral lower extremity wounds are currently dressed no drainage distress - Labs CBC & Chem 7: 03/30/21 05:15 03/30/21 05:15 Labs: Abnormal Lab Results - Last 24 Hours (Table) 03/30/21 03/30/21 03/30/21 Range/Units 05:15 05:15 07:08 Hgb 9.9 L (13.0-17.0) g/dL Hct 33.9 L (39.6-50.0) % MCV 75.3 L (80.0-97.0) fL MCH 22.0 L (27.0-32.0) pg MCHC 29.2 L (32.0-37.0) g/dL RDW 22.8 H (11.5-14.5) % Plt Count 491 H (140-440) X 10*3/uL Plt Count Comment INCREASED A MPV 9.3 L (9.5-12.2) fL Carbon Dioxide 27.8 H (20.0-27.5) mmol/L Anion Gap 8.20 L (10.00-18.00) mmol/L Glucose 178 H (70-110) mg/dL POC Glucose (mg/dL) 170 H (75-99) mg/dL Total Bilirubin <0.20 L (0.30-1.20) mg/dL AST 11 L (14-35) U/L ALT 8 L (10-49) U/L Total Protein 6.1 L (6.2-8.2) g/dL Albumin 3.4 L (3.8-4.9) g/dL Albumin/Globulin Ratio 1.26 L (1.60-3.17) g/dL 03/30/21 03/30/21 03/30/21 Range/Units 11:44 16:25 20:15 Hgb (13.0-17.0) g/dL Hct (39.6-50.0) % MCV (80.0-97.0) fL MCH (27.0-32.0) pg MCHC (32.0-37.0) g/dL RDW (11.5-14.5) % Plt Count (140-440) X 10*3/uL Plt Count Comment MPV (9.5-12.2) fL Carbon Dioxide (20.0-27.5) mmol/L Anion Gap (10.00-18.00) mmol/L Glucose (70-110) mg/dL POC Glucose (mg/dL) 304 H 171 H 171 H (75-99) mg/dL Total Bilirubin (0.30-1.20) mg/dL AST (14-35) U/L ALT (10-49) U/L Total Protein (6.2-8.2) g/dL Albumin (3.8-4.9) g/dL Albumin/Globulin Ratio (1.60-3.17) g/dL Microbiology - Last 24 Hours (Table) 03/29/21 13:45 Blood Culture - Preliminary Blood No Growth after 24 hours 03/29/21 14:00 Blood Culture - Preliminary Blood No Growth after 24 hours Assessment and Plan (1) Ulcer of foot, chronic Current Visit: Yes Status: Acute Code(s): L97.509 - NON-PRESSURE CHRONIC ULCER OTH PRT UNSP FOOT W UNSP SEVERITY SNOMED Code(s): 998911149 (2) Ulcer of left lower leg Current Visit: Yes Status: Acute Code(s): L97.929 - NON-PRS CHRONIC ULC UNSP PRT OF L LOW LEG W UNSP SEVERITY SNOMED Code(s): 745342086 Plan: 1patient with chronic nonhealing wound on the plantar aspect right foot with no evidence of encephalitis local wound care with Aquacel silver dressing and continue with the Keflex. 2patient with left posterior heel wound with no cellulitis continued local wound care with Aquacel silver dressing daily of the pressure Time with Patient: Less than 30
[2021-03-31 06:53] LABS: Glucose,Whole Blood 95 mg/dL (75-99)
[2021-03-31] MEDS: INSULIN DETEMIR (LEVEMIR) 100 UNIT/ML SYR SQ SCH (07:23)
[2021-03-31] MEDS: PHENYTOIN ORAL SUSP 100 MG/4 ML CUP PO SCH ×3 (07:25→21:04)
[2021-03-31] MEDS: PREGABALIN 50 MG CAP PO SCH (07:25)
[2021-03-31] MEDS: PIOGLITAZONE 15 MG TAB PO SCH (07:25)
[2021-03-31] MEDS: CEPHALEXIN 500 MG CAP PO SCH ×3 (07:25→21:04)
[2021-03-31] MEDS: PANTOPRAZOLE 40 MG TABLET PO SCH (08:57)
[2021-03-31] MEDS: MUPIROCIN 2% OINT 22 GM TUBE TOPICAL SCH ×2 (08:58→21:05)
[2021-03-31 09:10] LABS: Basophils # (A) 0.04 X 10*3/uL (0.00-0.10); Basophils % (A) 0.6 %; Eosinophils # (A) 0.11 X 10*3/uL (0.04-0.35); Eosinophils % (A) 1.5 %; HCT 31.6 % (39.6-50.0); HGB 9.5 g/dL (13.0-17.0); Lymphocytes # (A) 2.09 X 10*3/uL (0.90-5.00); Lymphocytes % (A) 29.1 %; MCH 22.6 pg (27.0-32.0); MCHC 30.1 g/dL (32.0-37.0); MCV 75.1 fL (80.0-97.0); Mean Platelet Volume 9.3 fL (9.5-12.2); Monocytes # (A) 0.62 X 10*3/uL (0.20-1.00); Monocytes % (A) 8.6 %; Neutrophils % (A) 60.1 %; Platelet Count 433 X 10*3/uL (140-440); RBC 4.21 X 10*6/uL (4.40-5.60); RDW 23.3 % (11.5-14.5); WBC 7.17 X 10*3/uL (4.50-10.00)
[2021-03-31 09:17] LABS: ALT 9 U/L (10-49); AST 14 U/L (14-35); African American GFR (CKD) 118.5 (60.0-200.0); Albumin 3.2 g/dL (3.8-4.9); Albumin/Globulin Ratio 1.18 (1.60-3.17); Alkaline Phosphatase 97 U/L (41-126); BUN/Creat Ratio 12.12 Ratio (12.00-20.00); Blood Urea Nitrogen 8.6 mg/dL (9.0-27.0); Calcium 8.7 mg/dL (8.7-10.3); Carbon Dioxide 25.4 mmol/L (20.0-27.5); Chloride 104 mmol/L (96-109); Globulin 2.7 g/dL (1.6-3.3); Glucose 91 mg/dL (70-110); Magnesium 1.9 mg/dL (1.5-2.4); Non-African American GFR(CKD) 102.2 (60.0-200.0); Potassium 4.3 mmol/L (3.5-5.5); Sodium 139 mmol/L (135-145); Total Bilirubin <0.20 mg/dL (0.30-1.20); Total Protein 5.9 g/dL (6.2-8.2)
[2021-03-31 11:25] LABS: Glucose,Whole Blood 201 mg/dL (75-99)
--- NOTE | 2021-03-31 14:06 | P.PN ---
Subjective Progress Note Date: 03/31/21 Pietro Ryder, is a 60 year old male who presented to [facility] emergency room with a chief complaint of bilateral feet pain and open ulcers that has been present for about 3 months, patient was seen by his architectural coating finisher who advised him to go to emergency room to be admitted and receive IV antibiotics. Patient was also complaining of shortness of breath with any activity. He was evaluated in the emergency room vital examination on presentation revealed a temperature of 97.6 pulse 125 respiration 20 blood pressure 113/69 pulse ox 99% on room air Laboratory data revealed a white blood count of 7.6 hemoglobin 12.2 platelet count 549 sodium 133 potassium 5.7 chloride 95 CO2 29 glucose level was 540 BUN 12 creatinine 0.85 troponin level was less than 0.012 COVID-19 PCR was negative Testing in the emergency room revealed EKG revealed sinus tachycardia with premature supraventricular complexes and premature ventricular complexes otherwise normal EKG, chest x-ray revealed no acute process Patient was admitted to medical floor for further evaluation and treatment. Past medical history is significant for history of diabetes mellitus history of hyperlipidemia history of osteoarthritis history of seizure disorder and history of peripheral neuropathy. Patient also has known history of open ulcers in the lower extremities he was followed at the wound care clinic. On review of systems there is no fever or chills no headache or dizziness no chest pain patient stated he had some shortness of breath with activity there is no nausea or vomiting no abdominal pain no diarrhea no blood in the stools no burning with urination no frequency or urgency and no hematuria On 03/30/2021 patient was seen and examined on the medical floor he is alert and oriented 3 in no apparent distress he is complaining of bilateral lower extremity discomfort otherwise he denies any complaints, shortness of breath has resolved, patient had significantly elevated glucose level on presentation, whi ch is now under good control, there is no fever or chills no headache or dizziness no chest pain no shortness of breath no cough no nausea or vomiting no abdominal pain no diarrhea and no urinary symptoms. Patient was seen by Dr. Moran, infectious disease, we are awaiting evaluation by vascular surgery, possible discharge to home in the next 1-2 days. Importance of compliance with medications and insulin at home discussed in details with patient. On 03/31/2021 patient was seen and examined on the medical floor he is alert and oriented 3, he is complaining of bilateral lower extremity discomfort otherwise he denies any complaints, patient had significantly elevated glucose level on presentation, which is now under good control, there is no fever or chills no headache or dizziness no chest pain no shortness of breath no cough no nausea or vomiting no abdominal pain no diarrhea and no urinary symptoms. Patient was seen by Dr. Moran, infectious disease, we are awaiting evaluation by vascular surgery, possible discharge to home in the next 1-2 days. Importance of compliance with medications and insulin at home discussed in details with patient. PT, OT consult, assess need for rehab admission Vs going home. Objective - Vital Signs Vital signs: Vital Signs Temp 98.3 F 03/31/21 07:17 Pulse 79 03/31/21 07:17 Resp 17 03/31/21 07:17 BP 131/75 03/31/21 07:17 Pulse Ox 96 03/31/21 07:17 Intake & Output 03/30/21 03/31/21 03/31/21 18:59 06:59 18:59 Intake Total 1080 100 240 Balance 1080 100 240 Intake: Oral 1080 100 240 Other: Voiding Method Toilet Urinal # Voids 3 1 - Exam In general patient is alert and oriented x 3 in no distress HEENT head normocephalic and atraumatic Neck is supple no JVD no goiter no lymphadenopathy no carotid bruit Chest examination is clear to auscultation no crackles no wheezing Cardiac exam reveals regular heart sounds S1 and S2 no gallops no murmurs Abdomen is soft nontender no organomegaly with normal bowel sounds Extremity exam reveals no edema no cyanosis or clubbing, there is an ulcer on the plantar aspect of the right foot there is also on ulcer on the left posterior heel area Neurological examination reveals no gross focal deficits - Labs CBC & Chem 7: 03/31/21 04:39 03/31/21 04:39 Labs: Abnormal Lab Results - Last 24 Hours (Table) 03/30/21 03/30/21 03/30/21 Range/Units 05:15 16:25 20:15 RBC (4.40-5.60) X 10*6/uL Hgb (13.0-17.0) g/dL Hct (39.6-50.0) % MCV (80.0-97.0) fL MCH (27.0-32.0) pg MCHC (32.0-37.0) g/dL RDW (11.5-14.5) % MPV (9.5-12.2) fL BUN (9.0-27.0) mg/dL POC Glucose (mg/dL) 171 H 171 H (75-99) mg/dL Hemoglobin A1c 13.4 H (0.0-6.0) % Total Bilirubin (0.30-1.20) mg/dL ALT (10-49) U/L Total Protein (6.2-8.2) g/dL Albumin (3.8-4.9) g/dL Albumin/Globulin Ratio (1.60-3.17) g/dL 03/31/21 03/31/21 03/31/21 Range/Units 04:39 04:39 11:24 RBC 4.21 L (4.40-5.60) X 10*6/uL Hgb 9.5 L (13.0-17.0) g/dL Hct 31.6 L (39.6-50.0) % MCV 75.1 L (80.0-97.0) fL MCH 22.6 L (27.0-32.0) pg MCHC 30.1 L (32.0-37.0) g/dL RDW 23.3 H (11.5-14.5) % MPV 9.3 L (9.5-12.2) fL BUN 8.6 L (9.0-27.0) mg/dL POC Glucose (mg/dL) 201 H (75-99) mg/dL Hemoglobin A1c (0.0-6.0) % Total Bilirubin <0.20 L (0.30-1.20) mg/dL ALT 9 L (10-49) U/L Total Protein 5.9 L (6.2-8.2) g/dL Albumin 3.2 L (3.8-4.9) g/dL Albumin/Globulin Ratio 1.18 L (1.60-3.17) g/dL Microbiology - Last 24 Hours (Table) 03/29/21 13:45 Blood Culture - Preliminary Blood No Growth after 24 hours 03/29/21 14:00 Blood Culture - Preliminary Blood No Growth after 24 hours Assessment and Plan Plan: 1. Bilateral feet ulcers, patient states no significant improvement with outpatient treatment at the wound care center, he was seen by his architectural coating finisher yesterday and was advised to come to emergency room for IV antibiotics 2. Underlying history of insulin-dependent diabetes mellitus, glucose was very elevated on presentation, home medication resumed, insulin sliding scale added, questionable compliance with medications at home 3. Underlying history of seizure disorder, again there is probably noncompliance with medication Dilantin level was less than 3.0 at this time Dilantin dose was increased to 30 mg 3 times a day Will monitor closely 4. Underlying history of peripheral neuropathy 5. Underlying history of hyperlipidemia At this time patient is admitted to medical floor he was started on IV antibiotics Consultation for infectious disease and vascular surgery initiated [facility] PT, OT assess need for rehab admission Will follow closely
[2021-03-31 16:35] LABS: Glucose,Whole Blood 184 mg/dL (75-99)
[2021-03-31] MEDS: ENOXAPARIN 40 MG/0.4 ML SYRINGE SQ SCH (17:12)
[2021-03-31 20:15] LABS: Glucose,Whole Blood 195 mg/dL (75-99)
--- NOTE | 2021-03-31 20:17 | P.PN ---
Subjective Progress Note Date: 03/31/21 Principal diagnosis: Right foot wound and left posterior heel wound and a question of cellulitis Patient is a 62-year-old male with a past medical history significant for a nonhealing wound on the plantar aspect of the right foot and left posterior heel area patient was sent to the ER by his continuity tester concerning for infection in this patient with no fever or elevated white count. On today's evaluation that is 03/31/2021 the patient is afebrile, the patient is breathing comfortably on RA, the pt denies chest pain shortness of breath or cough, no nausea no vomiting no abdominal pain and denies pain to the bilateral foot wound area Objective - Vital Signs Vital signs: Vital Signs Temp 98.3 F 03/31/21 14:00 Pulse 90 03/31/21 14:00 Resp 14 03/31/21 14:00 BP 141/81 03/31/21 14:00 Pulse Ox 97 03/31/21 14:00 Intake & Output 03/31/21 03/31/21 04/01/21 06:59 18:59 06:59 Intake Total 100 840 Balance 100 840 Intake: Oral 100 840 Other: Voiding Method Toilet Urinal # Voids 1 3 - Exam GENERAL DESCRIPTION:[ Patient is awake and alert in no distress] HEENT: [Oral mucosa is dry and no pharyngeal erythema] RESPIRATORY SYSTEM: [Unlabored breathing clear to auscultation] CARDIA VASCULAR SYSTEM: [S1-S2 regular rate and rhythm no murmur] GI: [Abdominal soft there's no tenderness no organomegaly] EXTREMITIES: [Bilateral lower extremity wounds are currently dressed no drainage distress - Labs CBC & Chem 7: 03/31/21 04:39 03/31/21 04:39 Labs: Abnormal Lab Results - Last 24 Hours (Table) 03/30/21 03/30/21 03/31/21 Range/Units 05:15 20:15 04:39 RBC (4.40-5.60) X 10*6/uL Hgb (13.0-17.0) g/dL Hct (39.6-50.0) % MCV (80.0-97.0) fL MCH (27.0-32.0) pg MCHC (32.0-37.0) g/dL RDW (11.5-14.5) % MPV (9.5-12.2) fL BUN 8.6 L (9.0-27.0) mg/dL POC Glucose (mg/dL) 171 H (75-99) mg/dL Hemoglobin A1c 13.4 H (0.0-6.0) % Total Bilirubin <0.20 L (0.30-1.20) mg/dL ALT 9 L (10-49) U/L Total Protein 5.9 L (6.2-8.2) g/dL Albumin 3.2 L (3.8-4.9) g/dL Albumin/Globulin Ratio 1.18 L (1.60-3.17) g/dL 03/31/21 03/31/21 03/31/21 Range/Units 04:39 11:24 16:34 RBC 4.21 L (4.40-5.60) X 10*6/uL Hgb 9.5 L (13.0-17.0) g/dL Hct 31.6 L (39.6-50.0) % MCV 75.1 L (80.0-97.0) fL MCH 22.6 L (27.0-32.0) pg MCHC 30.1 L (32.0-37.0) g/dL RDW 23.3 H (11.5-14.5) % MPV 9.3 L (9.5-12.2) fL BUN (9.0-27.0) mg/dL POC Glucose (mg/dL) 201 H 184 H (75-99) mg/dL Hemoglobin A1c (0.0-6.0) % Total Bilirubin (0.30-1.20) mg/dL ALT (10-49) U/L Total Protein (6.2-8.2) g/dL Albumin (3.8-4.9) g/dL Albumin/Globulin Ratio (1.60-3.17) g/dL 03/31/21 Range/Units 20:13 RBC (4.40-5.60) X 10*6/uL Hgb (13.0-17.0) g/dL Hct (39.6-50.0) % MCV (80.0-97.0) fL MCH (27.0-32.0) pg MCHC (32.0-37.0) g/dL RDW (11.5-14.5) % MPV (9.5-12.2) fL BUN (9.0-27.0) mg/dL POC Glucose (mg/dL) 195 H (75-99) mg/dL Hemoglobin A1c (0.0-6.0) % Total Bilirubin (0.30-1.20) mg/dL ALT (10-49) U/L Total Protein (6.2-8.2) g/dL Albumin (3.8-4.9) g/dL Albumin/Globulin Ratio (1.60-3.17) g/dL Microbiology - Last 24 Hours (Table) 03/29/21 14:00 Blood Culture - Preliminary Blood No Growth after 48 hours 03/29/21 13:45 Blood Culture - Preliminary Blood No Growth after 48 hours Assessment and Plan (1) Ulcer of foot, chronic Current Visit: Yes Status: Acute Code(s): L97.509 - NON-PRESSURE CHRONIC ULCER OTH PRT UNSP FOOT W UNSP SEVERITY SNOMED Code(s): 190098700 (2) Ulcer of left lower leg Current Visit: Yes Status: Acute Code(s): L97.929 - NON-PRS CHRONIC ULC UNSP PRT OF L LOW LEG W UNSP SEVERITY SNOMED Code(s): 948495280 Plan: 1patient with chronic nonhealing wound on the plantar aspect right foot with no evidence of encephalitis local wound care with Aquacel silver dressing and continue with the Keflex 500mg tid x 7 days. 2patient with left posterior heel wound with no cellulitis continued local wound care with Aquacel silver dressing daily of the pressure Time with Patient: Less than 30
[2021-03-31] MEDS: ATORVASTATIN 20 MG TAB PO SCH (21:04)
[2021-04-01 06:49] LABS: Glucose,Whole Blood 282 mg/dL (75-99)
[2021-04-01] MEDS: ENOXAPARIN 40 MG/0.4 ML SYRINGE SQ SCH (07:17)
[2021-04-01] MEDS: PREGABALIN 50 MG CAP PO SCH (07:17)
[2021-04-01] MEDS: CEPHALEXIN 500 MG CAP PO SCH (07:17)
[2021-04-01] MEDS: PHENYTOIN ORAL SUSP 100 MG/4 ML CUP PO SCH (07:17)
[2021-04-01] MEDS: INSULIN DETEMIR (LEVEMIR) 100 UNIT/ML SYR SQ SCH (07:18)
[2021-04-01] MEDS: INSULIN ASPART (NovoLOG) 100 UNIT/ML VIAL SQ SCH ×2 (07:19→12:21)
[2021-04-01] MEDS: PIOGLITAZONE 15 MG TAB PO SCH (07:20)
[2021-04-01] MEDS: PANTOPRAZOLE 40 MG TABLET PO SCH (07:20)
[2021-04-01] MEDS: MUPIROCIN 2% OINT 22 GM TUBE TOPICAL SCH (07:20)
[2021-04-01 09:22] LABS: Basophils # (A) 0.05 X 10*3/uL (0.00-0.10); Basophils % (A) 0.7 %; Eosinophils # (A) 0.12 X 10*3/uL (0.04-0.35); Eosinophils % (A) 1.7 %; HCT 32.8 % (39.6-50.0); HGB 9.7 g/dL (13.0-17.0); Lymphocytes # (A) 2.19 X 10*3/uL (0.90-5.00); Lymphocytes % (A) 30.1 %; MCH 22.5 pg (27.0-32.0); MCHC 29.6 g/dL (32.0-37.0); MCV 76.1 fL (80.0-97.0); Mean Platelet Volume 9.5 fL (9.5-12.2); Monocytes # (A) 0.52 X 10*3/uL (0.20-1.00); Monocytes % (A) 7.2 %; Neutrophils # (A) 4.37 X 10*3/uL (1.80-7.70); Platelet Count 465 X 10*3/uL (140-440); RBC 4.31 X 10*6/uL (4.40-5.60); RDW 23.1 % (11.5-14.5); WBC 7.27 X 10*3/uL (4.50-10.00)
[2021-04-01 10:03] LABS: ALT 7 U/L (10-49); AST 10 U/L (14-35); African American GFR (CKD) 118.9 (60.0-200.0); Albumin 3.3 g/dL (3.8-4.9); Albumin/Globulin Ratio 1.18 (1.60-3.17); Alkaline Phosphatase 98 U/L (41-126); BUN/Creat Ratio 13.29 Ratio (12.00-20.00); Blood Urea Nitrogen 9.3 mg/dL (9.0-27.0); Calcium 8.9 mg/dL (8.7-10.3); Carbon Dioxide 29.7 mmol/L (20.0-27.5); Chloride 99 mmol/L (96-109); Globulin 2.8 g/dL (1.6-3.3); Glucose 202 mg/dL (70-110); Non-African American GFR(CKD) 102.6 (60.0-200.0); Potassium 4.1 mmol/L (3.5-5.5); Sodium 136 mmol/L (135-145); Total Bilirubin <0.20 mg/dL (0.30-1.20); Total Protein 6.1 g/dL (6.2-8.2)
[2021-04-01 11:34] LABS: Glucose,Whole Blood 73 mg/dL (75-99)
[2021-04-01 12:29] VITALS: BMI 20.7
--- NOTE | 2021-04-01 13:26 | P.GSCN ---
History of Present Illness Consult date: 04/01/21 Reason for Consult: chronic lower extremity wounds Requesting physician: Helen Chen History of present illness: 60-year-old male with a past medical history of diabetes mellitus and chronic wounds to bilateral lower extremities. Patient follows with Dr. Guerrier from the wound care clinic here [facility] and states he had debridement done last week. He was seen by his poultry vaccinator who recommended he come to the emergency department for possible antibiotic therapy. Denies any fevers or chills. States that he has been going to the wound clinic regularly. Seen by vascular surgery on 02/13/2021 and was taken to the operating room on 02/14/2021 for debridement of his right plantar aspect wound as well as his left Achilles region. Does have a postop offloading shoe for his right foot however does not have it with him. No evidence of leukocytosis. Review of Systems 14 point review of systems was completed pertinent positives and negatives as stated in the HPI. Past Medical History Past Medical History: Cancer, Diabetes Mellitus, GERD/Reflux, Hyperlipidemia, Osteoarthritis (OA), Seizure Disorder Additional Past Medical History / Comment(s): IDDM type 1, wounds to upper back from scratching and L leg-seen at [facility], past L lower extremity cellulitis with sepsis, L wrist cancerous tumor removed, past seizure over 6 months ago, arthritis L knee, vertigo, occasional diarrhea, pt cannot recall why he takes lyrica. History of Any Multi-Drug Resistant Organisms: MRSA Year Discovered:: 12/29/19 MDRO Source:: Left Leg Past Surgical History: Tonsillectomy Additional Past Surgical History / Comment(s): 01/23/20 angiogram L leg, 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, LT Eye SX DONE FOR LAZY EYE. Past Anesthesia/Blood Transfusion Reactions: No Reported Reaction Past Psychological History: Depression Smoking Status: Never smoker Past Alcohol Use History: None Reported Past Drug Use History: None Reported - Past Family History Father Family Medical History: Myocardial Infarction (IA) Additional Family Medical History / Comment(s): Father of a IA at the age of 57yrs. Mother Family Medical History: Cancer Additional Family Medical History / Comment(s): Mother from cancer at the age of 61 or 62 . Pt cannot recall type of cancer. Sister(s) Family Medical History: Diabetes Mellitus Additional Family Medical History / Comment(s): Sister had DM type 1. She is . Medications and Allergies Home Medications Medication Instructions Recorded Confirmed Type Omeprazole 20 mg PO DAILY 06/13/17 03/29/21 History Pioglitazone HCl [Actos] 15 mg PO DAILY 10/03/18 03/29/21 History Diphenox-Atrop 2.5-0.025 mg 1 tab PO BID PRN 11/17/19 03/29/21 History [Lomotil] Triamcinolone 0.5% Cream [Kenalog 1 applic TOPICAL DAILY 01/19/20 03/29/21 History 0.5% Cream] Insulin Glargine [Lantus Vial] 50 unit SQ DAILY 05/15/20 03/29/21 History Pregabalin [Lyrica] 50 mg PO DAILY 05/15/20 03/29/21 History Rosuvastatin [Crestor] 10 mg PO HS 05/15/20 03/29/21 History Mupirocin 2% Oint [Bactroban 2% 1 applic TOPICAL BID 12/29/20 03/29/21 History Oint] Phenytoin Sodium Extended 30 mg PO BID 02/09/21 03/29/21 History [Dilantin] traMADol HCL 50 mg PO Q6H PRN 3 Days #12 tab 02/22/21 03/29/21 Rx Ondansetron Odt [Zofran Odt] 4 mg PO Q8HR PRN 3 Days #9 tab 03/07/21 03/29/21 Rx Acetaminophen [Tylenol] 325 mg PO Q6H PRN 03/29/21 03/29/21 History Allergies Allergy/AdvReac Type Severity Reaction Status Date / Time No Known Allergies Allergy Verified 03/29/21 13:23 Surgical - Exam Vital Signs Temp Pulse Resp BP Pulse Ox 97.6 F 125 H 20 113/69 99 03/29/21 12:49 03/29/21 12:49 03/29/21 12:49 03/29/21 12:49 03/29/21 12:49 General appearance: The patient is alert, oriented, appears in no acute distress. HET: Head is normocephalic and atraumatic. Neck: Supple without lymphadenopathy. Trachea midline. Heart: S1 S2. Regular rate and rhythm. Lungs: No crackles or wheezes are heard. Abdomen: Soft, thin, nontender, nondistended with bowel sounds. No peritoneal signs. No palpable organomegaly or masses. Extremities: Normal skin color and turgor. No edema bilaterally. Palpable bilateral +2 dorsalis pedis pulses. Right plantar aspect wound base with minimal slough tissue and undermining, no redness or drainage. Left wound over the Achilles tendon region scabbed. No drainage. Neurological: No focal deficits. Strength and sensation are grossly intact. Results - Labs 04/01/21 04:17 04/01/21 04:17 Abnormal Lab Results - Last 24 Hours (Table) 03/30/21 03/30/21 03/31/21 Range/Units 05:15 10:52 11:24 RBC (4.40-5.60) X 10*6/uL Hgb (13.0-17.0) g/dL Hct (39.6-50.0) % MCV (80.0-97.0) fL MCH (27.0-32.0) pg MCHC (32.0-37.0) g/dL RDW (11.5-14.5) % Plt Count (140-440) X 10*3/uL POC Glucose (mg/dL) 201 H (75-99) mg/dL Hemoglobin A1c 13.4 H (0.0-6.0) % Free Phenytoin <0.8 L (0.8-2.0) ug/mL 03/31/21 03/31/21 04/01/21 Range/Units 16:34 20:13 04:17 RBC 4.31 L (4.40-5.60) X 10*6/uL Hgb 9.7 L (13.0-17.0) g/dL Hct 32.8 L (39.6-50.0) % MCV 76.1 L (80.0-97.0) fL MCH 22.5 L (27.0-32.0) pg MCHC 29.6 L (32.0-37.0) g/dL RDW 23.1 H (11.5-14.5) % Plt Count 465 H (140-440) X 10*3/uL POC Glucose (mg/dL) 184 H 195 H (75-99) mg/dL Hemoglobin A1c (0.0-6.0) % Free Phenytoin (0.8-2.0) ug/mL 04/01/21 Range/Units 06:48 RBC (4.40-5.60) X 10*6/uL Hgb (13.0-17.0) g/dL Hct (39.6-50.0) % MCV (80.0-97.0) fL MCH (27.0-32.0) pg MCHC (32.0-37.0) g/dL RDW (11.5-14.5) % Plt Count (140-440) X 10*3/uL POC Glucose (mg/dL) 282 H (75-99) mg/dL Hemoglobin A1c (0.0-6.0) % Free Phenytoin (0.8-2.0) ug/mL Microbiology - Last 24 Hours (Table) 03/29/21 14:00 Blood Culture - Preliminary Blood No Growth after 48 hours 03/29/21 13:45 Blood Culture - Preliminary Blood No Growth after 48 hours Diabetes panel 03/30/21 Range/Units 05:15 Hemoglobin A1c 13.4 H (0.0-6.0) % Assessment and Plan Assessment: 1. Chronic lower extremity wounds following with [facility] Dr. Guerrier 2. Diabetes mellitus Plan: 1. Recommend wound care consultation as patient follows with Dr. Guerrier 2. No plans on any vascular surgical intervention Thank you for this consultation, and allowing us take part in the plan of care of your patient during his hospital stay. The impression and plan of care has been dictated as directed. Dr. Stephens I performed a history and examination of this patient, discussed the same with the dictator. I agree with the dictator's note ,documented as a scribe. Any additional findings or plans will be noted.
[2021-04-01 14:08] VITALS: BP 128/75; PULSE 104; RESP 19; TEMP 97.4
[2021-04-01 16:34] LABS: Glucose,Whole Blood 238 mg/dL (75-99)
--- NOTE | 2021-04-01 17:22 | P.DS ---
Providers Date of admission: 03/29/21 14:46 Expected date of discharge: 04/01/21 Attending physician: Helen Chen Consults: 03/29/21 14:46 Consult Physician Urgent Consulting Provider: Tess Moran Consult Reason/Comments: Chronic ulcers Do you want consulting provider notified?: Yes 03/30/21 15:36 Consult Physician Routine Consulting Provider: Concepción Olson Consult Reason/Comments: Chronic feet ulcers Do you want consulting provider notified?: Yes Primary care physician: Helen Gustavo [facility] Course: Diagnosis on discharge: 1. Bilateral feet ulcers, patient states no significant improvement with outpatient treatment at the wound care center, he was seen by his coke worker yesterday and was advised to come to emergency room for IV antibiotics 2. Underlying history of insulin-dependent diabetes mellitus, glucose was very elevated on presentation, home medication resumed, insulin sliding scale added, questionable compliance with medications at home 3. Underlying history of seizure disorder, again there is probably noncompliance with medication Dilantin level was less than 3.0 at this time Dilantin dose was increased to 30 mg 3 times a day Will monitor closely 4. Underlying history of peripheral neuropathy 5. Underlying history of hyperlipidemia Hospital course: Pietro Ryder, is a 60 year old male who presented to [facility] emergency room with a chief complaint of bilateral feet pain and open ulcers that has been present for about 3 months, patient was seen by his coke worker who advised him to go to emergency room to be admitted and receive IV antibiotics. Patient was also complaining of shortness of breath with any activity. He was evaluated in the emergency room vital examination on presentation revealed a temperature of 97.6 pulse 125 respiration 20 blood pressure 113/69 pulse ox 99% on room air Laboratory data revealed a white blood count of 7.6 hemoglobin 12.2 platelet count 549 sodium 133 potassium 5.7 chloride 95 CO2 29 glucose level was 540 BUN 12 creatinine 0.85 troponin level was less than 0.012 COVID-19 PCR was negative Testing in the emergency room revealed EKG revealed sinus tachycardia with premature supraventricular complexes and premature ventricular complexes otherwise normal EKG, chest x-ray revealed no acute process Patient was admitted to medical floor for further evaluation and treatment. Past medical history is significant for history of diabetes mellitus history of hyperlipidemia history of osteoarthritis history of seizure disorder and history of peripheral neuropathy. Patient also has known history of open ulcers in the lower extremities he was followed at the wound care clinic. On review of systems there is no fever or chills no headache or dizziness no chest pain patient stated he had some shortness of breath with activity there is no nausea or vomiting no abdominal pain no diarrhea no blood in the stools no burning with urination no frequency or urgency and no hematuria On 03/30/2021 patient was seen and examined on the medical floor he is alert and oriented 3 in no apparent distress he is complaining of bilateral lower extremity discomfort otherwise he denies any complaints, shortness of breath has resolved, patient had significantly elevated glucose level on presentation, which is now under good control, there is no fever or chills no headache or dizziness no chest pain no shortness of breath no cough no nausea or vomiting no abdominal pain no diarrhea and no urinary symptoms. Patient was seen by Dr. Moran, infectious disease, we are awaiting evaluation by vascular surgery, possible discharge to home in the next 1-2 days. Importance of compliance with medications and insulin at home discussed in details with patient. On 03/31/2021 patient was seen and examined on the medical floor he is alert and oriented 3, he is complaining of bilateral lower extremity discomfort otherwise he denies any complaints, patient had significantly elevated glucose level on presentation, which is now under good control, there is no fever or chills no headache or dizziness no chest pain no shortness of breath no cough no nausea or vomiting no abdominal pain no diarrhea and no urinary symptoms. Patient was seen by Dr. Moran, infectious disease, we are awaiting evaluation by vascular surgery, possible discharge to home in the next 1-2 days. Importance of compliance with medications and insulin at home discussed in details with patient. PT, OT consult, assess need for rehab admission Vs going home. On 04/01/2021 patient was seen and examined on the medical floor he is alert and oriented 3 in no apparent distress there is no fever or chills no headache or dizziness no chest pain no shortness of breath no cough no nausea or vomiting no abdominal pain no diarrhea and no urinary symptoms. He was evaluated by Dr. Moran infectious disease who advised that there is no need to continue with any antibiotic after discharge. He was evaluated by vascular surgery who advised that there is no need for any immediate vascular intervention at this time, patient should follow with his vascular surgeon Dr. Guerrier as outpatient Follow-up at the wound care clinic Follow up in our office on 04/05/2021 at 11:30 AM Plan - Discharge Summary New Discharge Prescriptions: Continue Omeprazole 20 mg PO DAILY Pioglitazone HCl [Actos] 15 mg PO DAILY Diphenox-Atrop 2.5-0.025 mg [Lomotil] 1 tab PO BID PRN PRN Reason: Loose Stool Triamcinolone 0.5% Cream [Kenalog 0.5% Cream] 1 applic TOPICAL DAILY Rosuvastatin [Crestor] 10 mg PO HS Pregabalin [Lyrica] 50 mg PO DAILY Insulin Glargine [Lantus Vial] 50 unit SQ DAILY Mupirocin 2% Oint [Bactroban 2% Oint] 1 applic TOPICAL BID Phenytoin Sodium Extended [Dilantin] 30 mg PO BID traMADol HCL 50 mg PO Q6H PRN 3 Days #12 tab PRN Reason: Pain Ondansetron Odt [Zofran ODT] 4 mg PO Q8HR PRN 3 Days #9 tab PRN Reason: Nausea Acetaminophen [Tylenol] 325 mg PO Q6H PRN PRN Reason: Fever And/ Or Pain Discharge Medication List Omeprazole 20 mg PO DAILY 06/13/17 [History] Pioglitazone HCl [Actos] 15 mg PO DAILY 10/03/18 [History] Diphenox-Atrop 2.5-0.025 mg [Lomotil] 1 tab PO BID PRN 11/17/19 [History] Triamcinolone 0.5% Cream [Kenalog 0.5% Cream] 1 applic TOPICAL DAILY 01/19/20 [History] Insulin Glargine [Lantus Vial] 50 unit SQ DAILY 05/15/20 [History] Pregabalin [Lyrica] 50 mg PO DAILY 05/15/20 [History] Rosuvastatin [Crestor] 10 mg PO HS 05/15/20 [History] Mupirocin 2% Oint [Bactroban 2% Oint] 1 applic TOPICAL BID 12/29/20 [History] Phenytoin Sodium Extended [Dilantin] 30 mg PO BID 02/09/21 [History] traMADol HCL 50 mg PO Q6H PRN 3 Days #12 tab 02/22/21 [Rx] Ondansetron Odt [Zofran ODT] 4 mg PO Q8HR PRN 3 Days #9 tab 03/07/21 [Rx] Acetaminophen [Tylenol] 325 mg PO Q6H PRN 03/29/21 [History] Follow up Appointment(s)/Referral(s): Helen Chen MD [Primary Care Provider] - 1-2 days Activity/Diet/Wound Care/Special Instructions: Patient will need a cab at discharge: [phone].
[2021-04-02] MEDS ORDERED: INSULIN DETEMIR (LEVEMIR) 100 UNIT/ML SYR SQ SCH (07:00)
== END 2021-04-01 17:40 | disposition home or self-care (01) | DRG 638 ==
LOC: EC 12:40 → 4SSUR 14:46
PROVIDERS: ADMIT Internal Medicine; ATTEND Internal Medicine
DX: E10.621 Type 1 diabetes mellitus with foot ulcer (principal); L97.429 Non-pressure chronic ulcer of left heel and midfoot with unspecified severity; L97.419 Non-pressure chronic ulcer of right heel and midfoot with unspecified severity; L97.929 Non-pressure chronic ulcer of unspecified part of left lower leg with unspecified severity; E78.5 Hyperlipidemia, unspecified; F32.A Depression, unspecified; G40.909 Epilepsy, unspecified, not intractable, without status epilepticus; I49.1 Atrial premature depolarization; I49.3 Ventricular premature depolarization; M17.12 Unilateral primary osteoarthritis, left knee; E10.65 Type 1 diabetes mellitus with hyperglycemia; E10.622 Type 1 diabetes mellitus with other skin ulcer; T38.3X6A Underdosing of insulin and oral hypoglycemic [antidiabetic] drugs, initial encounter; T42.76XA Underdosing of unspecified antiepileptic and sedative-hypnotic drugs, initial encounter; K21.9 Gastro-esophageal reflux disease without esophagitis; Z79.4 Long term (current) use of insulin; E10.42 Type 1 diabetes mellitus with diabetic polyneuropathy; Z79.84 Long term (current) use of oral hypoglycemic drugs; Z79.899 Other long term (current) drug therapy; Z80.9 Family history of malignant neoplasm, unspecified; Z20.822 Contact with and (suspected) exposure to COVID-19; Z82.49 Family history of ischemic heart disease and other diseases of the circulatory system; Z83.3 Family history of diabetes mellitus; Z91.128 Patient's intentional underdosing of medication regimen for other reason; Z85.89 Personal history of malignant neoplasm of other organs and systems
CPT/HCPCS: 36415; 71046; 80053; 80185; 80186; 82009; 83036; 83605; 83735; 83880; 84484; 85025; 85379; 85610; 85730; 87040; 87635; 93005; 96365; 99285

== ENCOUNTER 2021-05-10 12:12 | Inpatient (IN) | payer OTHER ==
[2021-05-10 13:37] LABS: Anisocytosis Slight; Basophils # (A) 0.1 k/uL (0-0.2); Basophils % (A) 1 %; Eosinophils % (A) 0 %; HCT 34.7 % (39.0-53.0); HGB 10.6 gm/dL (13.0-17.5); Hypochromasia Marked; Lymphocytes # (A) 0.8 k/uL (1.0-4.8); Lymphocytes % (A) 11 %; MCH 23.5 pg (25.0-35.0); MCHC 30.4 g/dL (31.0-37.0); MCV 77.2 fL (80.0-100.0); Mean Platelet Volume 7.3; Microcytosis Moderate; Monocytes # (A) 0.3 k/uL (0-1.0); Monocytes % (A) 5 %; Neutrophils # (A) 5.9 k/uL (1.3-7.7); Neutrophils % (A) 82 %; Platelet Count 407 k/uL (150-450); RBC 4.49 m/uL (4.30-5.90); RDW 17.9 % (11.5-15.5); WBC 7.2 k/uL (3.8-10.6)
[2021-05-10 13:54] LABS: ALT 9 U/L (4-49); AST 16 U/L (17-59); African American GFR (CKD) >90 (>60 ml/min/1.73 sqM); Albumin 3.6 g/dL (3.5-5.0); Alkaline Phosphatase 115 U/L (38-126); Anion Gap 7 mmol/L; Blood Urea Nitrogen 17 mg/dL (9-20); C Reactive Protein 1.6 mg/dL (<1.0); Calcium 8.9 mg/dL (8.4-10.2); Carbon Dioxide 26 mmol/L (22-30); Chloride 95 mmol/L (98-107); Non-African American GFR(CKD) >90 (>60 ml/min/1.73 sqM); Potassium 4.9 mmol/L (3.5-5.1); Sodium 128 mmol/L (137-145); Total Bilirubin 0.4 mg/dL (0.2-1.3); Total Protein 6.8 g/dL (6.3-8.2)
[2021-05-10 14:04] LABS: Glucose 625 mg/dL (74-99)
[2021-05-10] MEDS ORDERED: PIPERACILLIN-TAZOBACTAM 3.375 GM in SODIUM CHLORIDE 0.9% 100 ML IVPB STA (14:33)
[2021-05-10] MEDS ORDERED: VANCOMYCIN IV PER PHARMACY 1 EACH MISC MISCELLANE PRN (14:33)
[2021-05-10] MEDS ORDERED: NALOXONE 0.4 MG/ML 1 ML VIAL IV PRN (14:36)
[2021-05-10] MEDS ORDERED: ACETAMINOPHEN TAB 325 MG TAB PO PRN (14:36)
--- NOTE | 2021-05-10 14:36 | ED ---
General Adult HPI - General Source: patient, RN notes reviewed Mode of arrival: wheelchair Limitations: no limitations <Tolu Case - Last Filed: 05/10/21 14:33> <Kori Kidd - Last Filed: 05/12/21 16:34> - General Chief complaint: Wound/Laceration Stated complaint: Lt Foot Infection Time Seen by Provider: 05/10/21 12:38 - History of Present Illness Initial comments: 60-year-old male presents emergency Department chief complaint of infection to his knee. Patient states been ongoing but really worsenings being currently followed by podiatry states she is sent in for admission secondary increased infection. Patient states he is a known diabetic. He was on antibiotics but has not improved. Patient states he has infection to his right plantar surface, left Achilles region. (Tolu Case) - Related Data Home Medications Medication Instructions Recorded Confirmed Omeprazole 20 mg PO DAILY 06/13/17 05/10/21 Pioglitazone HCl [Actos] 15 mg PO DAILY 10/03/18 05/10/21 Diphenox-Atrop 2.5-0.025 mg 1 tab PO BID PRN 11/17/19 05/10/21 [Lomotil] Triamcinolone 0.5% Cream [Kenalog 1 applic TOPICAL DAILY PRN 01/19/20 05/10/21 0.5% Cream] Insulin Glargine [Lantus Vial] 50 unit SQ DAILY 05/15/20 05/10/21 Rosuvastatin [Crestor] 10 mg PO HS 05/15/20 05/10/21 Mupirocin 2% Oint [Bactroban 2% 1 applic TOPICAL BID PRN 12/29/20 05/10/21 Oint] HYDROcodone/APAP 10-325MG [[place] 1 tab PO TID PRN 04/20/21 05/10/21 10-325] Phenytoin Sodium Extended 200 mg PO BID 05/10/21 05/10/21 [Dilantin] Previous Rx's Medication Instructions Recorded traMADol HCL 50 mg PO Q6H PRN 3 Days #12 tab 02/22/21 Allergies Allergy/AdvReac Type Severity Reaction Status Date / Time No Known Allergies Allergy Verified 05/10/21 14:42 Review of Systems ROS Other: All systems not noted in ROS Statement are negative. <Tolu Case - Last Filed: 05/10/21 14:33> ROS Other: All systems not noted in ROS Statement are negative. <BernabeKori Hans - Last Filed: 05/12/21 16:34> ROS Statement: Those systems with pertinent positive or pertinent negative responses have been documented in the HPI. Past Medical History Past Medical History: Cancer, Diabetes Mellitus, GERD/Reflux, Hyperlipidemia, Osteoarthritis (OA), Seizure Disorder Additional Past Medical History / Comment(s): IDDM type 1, wounds to upper back from scratching and L leg-seen at [facility], past L lower extremity cellulitis with sepsis, L wrist cancerous tumor removed, past seizure over 6 months ago, arthritis L knee, vertigo, occasional diarrhea, pt cannot recall why he takes lyrica. 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 Past Anesthesia/Blood Transfusion Reactions: No Reported Reaction Past Psychological History: Depression Smoking Status: Never smoker Past Alcohol Use History: None Reported Past Drug Use History: None Reported - Past Family History Father Family Medical History: Myocardial Infarction (DC) Additional Family Medical History / Comment(s): Father of a DC at the age of 57yrs. Mother Family Medical History: Cancer Additional Family Medical History / Comment(s): Mother from cancer at the age of 61 or 62 . Pt cannot recall type of cancer. Sister(s) Family Medical History: Diabetes Mellitus Additional Family Medical History / Comment(s): Sister had DM type 1. She is . <Tolu Case - Last Filed: 05/10/21 14:33> General Exam Limitations: no limitations General appearance: alert, in no apparent distress Head exam: Present: atraumatic, normocephalic, normal inspection Respiratory exam: Present: normal lung sounds bilaterally. Absent: respiratory distress, wheezes, rales, rhonchi, stridor Cardiovascular Exam: Present: regular rate, normal rhythm, normal heart sounds. Absent: systolic murmur, diastolic murmur, rubs, gallop, clicks Extremities exam: Present: other (Right plantar surface of the foot there is large open diabetic ulcer with erythema, purulent drainage and foul order, healing was slightly erythematous wound to left Achilles region) <Tolu Case - Last Filed: 05/10/21 14:33> Course Vital Signs 05/10/21 05/10/21 05/10/21 12:19 14:01 16:17 Temperature 98.3 F Pulse Rate 98 86 85 Respiratory 18 18 18 Rate Blood Pressure 118/69 137/79 133/77 O2 Sat by Pulse 98 97 96 Oximetry 05/10/21 17:02 Temperature Pulse Rate 89 Respiratory 18 Rate Blood Pressure 140/81 O2 Sat by Pulse 97 Oximetry Procedures - [place] Protocol (Time Out) Nurse: Inocencia Adams <Tolu Case - Last Filed: 05/10/21 14:33> Medical Decision Making - Lab Data Result diagrams: 05/10/21 13:12 05/10/21 13:12 <Tolu Case - Last Filed: 05/10/21 14:33> - Lab Data Result diagrams: 05/12/21 05:52 05/12/21 05:52 <Kori Kidd - Last Filed: 05/12/21 16:34> - Medical Decision Making Patient has diabetic ulcerations with hyperglycemia. Patient started on IV antibiotics, insulin infusion. Case discussed with Dr. Chen (Tolu Case) I was available for consultation in the emergency department. The history and physical exam were done by the midlevel provider. I was consulted for this patients care. I reviewed the case with the midlevel provider and based on their presentation of the patient, I agree with the assessment, medical decision making and plan of care as documented. Chart was dictated using [employer] dictation software. Attempts were made to correct any dictation errors however some typographical errors may persist. (Kori Kidd) - Lab Data Lab Results 05/10/21 05/10/21 05/10/21 Range/Units 13:12 13:12 13:12 WBC 7.2 (3.8-10.6) k/uL RBC 4.49 (4.30-5.90) m/uL Hgb 10.6 L (13.0-17.5) gm/dL Hct 34.7 L (39.0-53.0) % MCV 77.2 L (80.0-100.0) fL MCH 23.5 L (25.0-35.0) pg MCHC 30.4 L (31.0-37.0) g/dL RDW 17.9 H (11.5-15.5) % Plt Count 407 (150-450) k/uL MPV 7.3 Neutrophils % 82 % Lymphocytes % 11 % Monocytes % 5 % Eosinophils % 0 % Basophils % 1 % Neutrophils # 5.9 (1.3-7.7) k/uL Lymphocytes # 0.8 L (1.0-4.8) k/uL Monocytes # 0.3 (0-1.0) k/uL Eosinophils # 0.0 (0-0.7) k/uL Basophils # 0.1 (0-0.2) k/uL Hypochromasia Marked Anisocytosis Slight Microcytosis Moderate Sodium 128 L (137-145) mmol/L Potassium 4.9 (3.5-5.1) mmol/L Chloride 95 L (98-107) mmol/L Carbon Dioxide 26 (22-30) mmol/L Anion Gap 7 mmol/L BUN 17 (9-20) mg/dL Creatinine 0.67 (0.66-1.25) mg/dL Est GFR (CKD-EPI)AfAm >90 (>60 ml/min/1.73 sqM) Est GFR (CKD-EPI)NonAf >90 (>60 ml/min/1.73 sqM) Glucose 625 H* (74-99) mg/dL POC Glucose (mg/dL) (75-99) mg/dL POC Glu Universal Grinder Set Up Operator ID Plasma Lactic Acid Michael 1.0 (0.7-2.0) mmol/L Calcium 8.9 (8.4-10.2) mg/dL Total Bilirubin 0.4 (0.2-1.3) mg/dL AST 16 L (17-59) U/L ALT 9 (4-49) U/L Alkaline Phosphatase 115 (38-126) U/L C-Reactive Protein 1.6 H (<1.0) mg/dL Total Protein 6.8 (6.3-8.2) g/dL Albumin 3.6 (3.5-5.0) g/dL 05/10/21 Range/Units 14:58 WBC (3.8-10.6) k/uL RBC (4.30-5.90) m/uL Hgb (13.0-17.5) gm/dL Hct (39.0-53.0) % MCV (80.0-100.0) fL MCH (25.0-35.0) pg MCHC (31.0-37.0) g/dL RDW (11.5-15.5) % Plt Count (150-450) k/uL MPV Neutrophils % % Lymphocytes % % Monocytes % % Eosinophils % % Basophils % % Neutrophils # (1.3-7.7) k/uL Lymphocytes # (1.0-4.8) k/uL Monocytes # (0-1.0) k/uL Eosinophils # (0-0.7) k/uL Basophils # (0-0.2) k/uL Hypochromasia Anisocytosis Microcytosis Sodium (137-145) mmol/L Potassium (3.5-5.1) mmol/L Chloride (98-107) mmol/L Carbon Dioxide (22-30) mmol/L Anion Gap mmol/L BUN (9-20) mg/dL Creatinine (0.66-1.25) mg/dL Est GFR (CKD-EPI)AfAm (>60 ml/min/1.73 sqM) Est GFR (CKD-EPI)NonAf (>60 ml/min/1.73 sqM) Glucose (74-99) mg/dL POC Glucose (mg/dL) 452 H (75-99) mg/dL POC Glu Universal Grinder Set Up Operator ID Shaji Murillo Plasma Lactic Acid Michael (0.7-2.0) mmol/L Calcium (8.4-10.2) mg/dL Total Bilirubin (0.2-1.3) mg/dL AST (17-59) U/L ALT (4-49) U/L Alkaline Phosphatase (38-126) U/L C-Reactive Protein (<1.0) mg/dL Total Protein (6.3-8.2) g/dL Albumin (3.5-5.0) g/dL Disposition <Tolu Case - Last Filed: 05/10/21 14:33> <Kori Kidd - Last Filed: 05/12/21 16:34> Clinical Impression: Ulcer of left lower leg, Diabetic ulcer of right foot, Hyperglycemia Disposition: ADMITTED IP TO THIS HOSP Condition: Fair
[2021-05-10] MEDS ORDERED: INSULIN REGULAR 100 UNIT in SODIUM CHLORIDE 0.9% 100 ML IV SCH (14:45)
[2021-05-10] MEDS ORDERED: VANCOMYCIN 1,000 MG in SODIUM CHLORIDE 0.9% 250 ML IVPB STA (15:01)
[2021-05-10] MEDS: SODIUM CHLORIDE 0.9% 1,000 ML IV SCH (15:05)
[2021-05-10 15:09] LABS: Glucose,Whole Blood 452 mg/dL (75-99)
[2021-05-10 16:00] LABS: Glucose,Whole Blood 400 mg/dL (75-99)
--- NOTE | 2021-05-10 16:08 | XR ---
Right foot HISTORY: Infection 3 views the right foot There is soft tissue swelling present. Vascular calcifications are noted. There is no evident periost itis, fracture, or dislocation. IMPRESSION: Soft tissue swelling.
[2021-05-10 16:12] LABS: African American GFR (CKD) >90 (>60 ml/min/1.73 sqM); Anion Gap 5 mmol/L; Blood Urea Nitrogen 12 mg/dL (9-20); Calcium 6.6 mg/dL (8.4-10.2); Carbon Dioxide 20 mmol/L (22-30); Chloride 110 mmol/L (98-107); Glucose 336 mg/dL (74-99); Non-African American GFR(CKD) >90 (>60 ml/min/1.73 sqM); Potassium 3.1 mmol/L (3.5-5.1); Sodium 135 mmol/L (137-145)
[2021-05-10 17:08] LABS: Glucose,Whole Blood 349 mg/dL (75-99)
[2021-05-10 18:04] LABS: Glucose,Whole Blood 203 mg/dL (75-99)
[2021-05-10] MEDS ORDERED: traMADol 50 MG TAB PO PRN (18:14)
[2021-05-10] MEDS ORDERED: HYDROcodone/APAP 10-325MG 1 EACH TAB PO PRN (18:14)
[2021-05-10 20:17] LABS: Glucose,Whole Blood 290 mg/dL (75-99)
[2021-05-10 20:35] LABS: Glucose,Whole Blood 296 mg/dL (75-99)
[2021-05-10 22:02] LABS: Glucose,Whole Blood 283 mg/dL (75-99)
[2021-05-10] MEDS: INSULIN ASPART (NovoLOG) 100 UNIT/ML VIAL SQ SCH (22:07)
[2021-05-10] MEDS: ATORVASTATIN 20 MG TAB PO SCH (22:07)
[2021-05-10] MEDS: PHENYTOIN SODIUM EXTENDED 100 MG CAP PO SCH (22:07)
[2021-05-11] MEDS: DIPHENOX-ATROP 2.5-0.025 MG 1 EACH TAB PO PRN (03:33)
[2021-05-11] MEDS: SODIUM CHLORIDE 0.9% 1,000 ML IV SCH ×2 (05:38→20:30)
[2021-05-11] MEDS ORDERED: VANCOMYCIN 1,000 MG in SODIUM CHLORIDE 0.9% 250 ML IVPB SCH (06:00)
[2021-05-11 07:22] LABS: Glucose,Whole Blood 110 mg/dL (75-99)
[2021-05-11] MEDS: INSULIN ASPART (NovoLOG) 100 UNIT/ML VIAL SQ SCH ×4 (07:45→20:04)
[2021-05-11 08:01] LABS: African American GFR (CKD) >90 (>60 ml/min/1.73 sqM); Anion Gap 6 mmol/L; Blood Urea Nitrogen 16 mg/dL (9-20); Calcium 8.5 mg/dL (8.4-10.2); Carbon Dioxide 27 mmol/L (22-30); Chloride 105 mmol/L (98-107); Glucose 104 mg/dL (74-99); Non-African American GFR(CKD) >90 (>60 ml/min/1.73 sqM); Potassium 3.9 mmol/L (3.5-5.1); Sodium 138 mmol/L (137-145)
[2021-05-11] MEDS: PIOGLITAZONE 15 MG TAB PO SCH (09:08)
[2021-05-11] MEDS: PHENYTOIN SODIUM EXTENDED 100 MG CAP PO SCH ×2 (09:08→20:09)
[2021-05-11] MEDS: PANTOPRAZOLE 40 MG TABLET PO SCH (09:08)
[2021-05-11 10:20] VITALS: BMI 18.3
[2021-05-11 11:58] LABS: Glucose,Whole Blood 405 mg/dL (75-99)
[2021-05-11] MEDS: INSULIN DETEMIR (LEVEMIR) 100 UNIT/ML SYR SQ SCH (12:01)
--- NOTE | 2021-05-11 12:14 | P.HPIM ---
History of Present Illness H&P Date: 05/11/21 Pietro Ryder, is a 60-year-old male who presented to [facility] emergency room with a chief complaint of worsening ulcers on bilateral lower extremities, patient is followed by a industrial arts teacher and at the wound care clinic, he was sent by his industrial arts teacher to the emergency room for admission due to worsening infection. He was evaluated in the emergency room vital examination on presentation revealed a temperature of 98.3 pulse 98 respiration 18 blood pressure 118/69 pulse ox percent on room air Laboratory data revealed a white blood count of 7.2 hemoglobin 10.6 platelet count 407 sodium 128 potassium 4.9 chloride 95 CO2 26 BUN 17 creatinine 0.67 glucose level was 625 Testing in the emergency room revealed foot x-ray done in the emergency room revealed soft tissue swelling without evidence of osteomyelitis. Patient was admitted to medical floor for further evaluation and treatment, he was started on IV Zosyn and IV vancomycin in the emergency room infectious disease consultation was requested. Past Medical History Past Medical History: Cancer, Diabetes Mellitus, GERD/Reflux, Hyperlipidemia, Osteoarthritis (OA), Seizure Disorder Additional Past Medical History / Comment(s): IDDM type 1 per pt, bilateral feet neuropathy, pt states current wounds to bilateral feet/goes to [facility]/seen by Dr. Major (industrial arts teacher), past L lower extremity cellulitis with sepsis, L wrist cancerous tumor removed, past seizure about a year ago, arthritis L knee, vertigo, occasional diarrhea. History of Any Multi-Drug Resistant Organisms: MRSA Date of last positivie culture/infection: 12/29/19 MDRO Source:: Left Leg Past Surgical History: Orthopedic Surgery, Tonsillectomy Additional Past Surgical History / Comment(s): 01/23/20 angiogram L leg, 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, colonoscopy, L eye surgery for strabismus. Past Anesthesia/Blood Transfusion Reactions: No Reported Reaction Smoking Status: Never smoker - Past Family History Father Family Medical History: Myocardial Infarction ([place]) Additional Family Medical History / Comment(s): Father of a OR at the age of 57yrs. Mother Family Medical History: Cancer Additional Family Medical History / Comment(s): Mother from cancer at the age of 61 or 62 . Pt cannot recall type of cancer. Sister(s) Family Medical History: Diabetes Mellitus Additional Family Medical History / Comment(s): Sister had DM type 1. She is . Medications and Allergies Home Medications Medication Instructions Recorded Confirmed Type Omeprazole 20 mg PO DAILY 06/13/17 05/10/21 History Pioglitazone HCl [Actos] 15 mg PO DAILY 10/03/18 05/10/21 History Diphenox-Atrop 2.5-0.025 mg 1 tab PO BID PRN 11/17/19 05/10/21 History [Lomotil] Triamcinolone 0.5% Cream [Kenalog 1 applic TOPICAL DAILY PRN 01/19/20 05/10/21 History 0.5% Cream] Insulin Glargine [Lantus Vial] 50 unit SQ DAILY 05/15/20 05/10/21 History Rosuvastatin [Crestor] 10 mg PO HS 05/15/20 05/10/21 History Mupirocin 2% Oint [Bactroban 2% 1 applic TOPICAL BID PRN 12/29/20 05/10/21 History Oint] traMADol HCL 50 mg PO Q6H PRN 3 Days #12 tab 02/22/21 05/10/21 Rx HYDROcodone/APAP 10-325MG [[place] 1 tab PO TID PRN 04/20/21 05/10/21 History 10-325] Phenytoin Sodium Extended 200 mg PO BID 05/10/21 05/10/21 History [Dilantin] Allergies Allergy/AdvReac Type Severity Reaction Status Date / Time No Known Allergies Allergy Verified 05/10/21 14:42 Physical Exam Vitals: Vital Signs Temp Pulse Pulse Resp BP BP Pulse Ox 05/11/21 04:39 97.4 F L 89 16 145/78 98 05/10/21 20:42 97.8 F 85 16 122/70 97 05/10/21 18:05 98 F 94 17 116/57 98 05/10/21 17:02 89 18 140/81 97 05/10/21 16:17 85 18 133/77 96 05/10/21 14:01 86 18 137/79 97 05/10/21 12:19 98.3 F 98 18 118/69 98 Intake and Output 05/10/21 05/11/21 05/11/21 22:59 06:59 14:59 Intake Total 540 250 Balance 540 250 Intake: Intake, IV Titration 250 Amount Vancomycin 1,000 mg In 250 Sodium Chloride 0.9% 250 ml @ 125 mls/hr IVPB Q12H [facility] Rx#:[id number] Oral 540 Other: Voiding Method Toilet # Voids 1 3 # Bowel Movements 4 Weight 43.998 kg 43.998 kg In general patient is alert and oriented x 3 in no distress HEENT head normocephalic and atraumatic Neck is supple no JVD no goiter no lymphadenopathy no carotid bruit Chest examination is clear to auscultation no crackles no wheezing Cardiac exam reveals regular heart sounds S1 and S2 no gallops no murmurs Abdomen is soft nontender no organomegaly with normal bowel sounds Extremity exam reveals no edema no cyanosis or clubbing, bilateral lower extremity large area of ulceration was purulent discharge Neurological examination reveals no gross focal deficits Results CBC & Chem 7: 05/10/21 13:12 05/11/21 06:43 Labs: Abnormal Lab Results - Last 24 Hours (Table) 05/10/21 05/10/21 05/10/21 Range/Units 13:12 13:12 14:58 Hgb 10.6 L (13.0-17.5) gm/dL Hct 34.7 L (39.0-53.0) % MCV 77.2 L (80.0-100.0) fL MCH 23.5 L (25.0-35.0) pg MCHC 30.4 L (31.0-37.0) g/dL RDW 17.9 H (11.5-15.5) % Lymphocytes # 0.8 L (1.0-4.8) k/uL Sodium 128 L (137-145) mmol/L Potassium (3.5-5.1) mmol/L Chloride 95 L (98-107) mmol/L Carbon Dioxide (22-30) mmol/L Creatinine (0.66-1.25) mg/dL Glucose 625 H* (74-99) mg/dL POC Glucose (mg/dL) 452 H (75-99) mg/dL Calcium (8.4-10.2) mg/dL AST 16 L (17-59) U/L C-Reactive Protein 1.6 H (<1.0) mg/dL 05/10/21 05/10/21 05/10/21 Range/Units 15:50 15:54 16:58 Hgb (13.0-17.5) gm/dL Hct (39.0-53.0) % MCV (80.0-100.0) fL MCH (25.0-35.0) pg MCHC (31.0-37.0) g/dL RDW (11.5-15.5) % Lymphocytes # (1.0-4.8) k/uL Sodium 135 L (137-145) mmol/L Potassium 3.1 L (3.5-5.1) mmol/L Chloride 110 H (98-107) mmol/L Carbon Dioxide 20 L (22-30) mmol/L Creatinine 0.44 L (0.66-1.25) mg/dL Glucose 336 H (74-99) mg/dL POC Glucose (mg/dL) 400 H 349 H (75-99) mg/dL Calcium 6.6 L (8.4-10.2) mg/dL AST (17-59) U/L C-Reactive Protein (<1.0) mg/dL 05/10/21 05/10/21 05/10/21 Range/Units 18:02 20:15 20:33 Hgb (13.0-17.5) gm/dL Hct (39.0-53.0) % MCV (80.0-100.0) fL MCH (25.0-35.0) pg MCHC (31.0-37.0) g/dL RDW (11.5-15.5) % Lymphocytes # (1.0-4.8) k/uL Sodium (137-145) mmol/L Potassium (3.5-5.1) mmol/L Chloride (98-107) mmol/L Carbon Dioxide (22-30) mmol/L Creatinine (0.66-1.25) mg/dL Glucose (74-99) mg/dL POC Glucose (mg/dL) 203 H 290 H 296 H (75-99) mg/dL Calcium (8.4-10.2) mg/dL AST (17-59) U/L C-Reactive Protein (<1.0) mg/dL 05/10/21 05/11/21 05/11/21 Range/Units 22:00 06:43 07:21 Hgb (13.0-17.5) gm/dL Hct (39.0-53.0) % MCV (80.0-100.0) fL MCH (25.0-35.0) pg MCHC (31.0-37.0) g/dL RDW (11.5-15.5) % Lymphocytes # (1.0-4.8) k/uL Sodium (137-145) mmol/L Potassium (3.5-5.1) mmol/L Chloride (98-107) mmol/L Carbon Dioxide (22-30) mmol/L Creatinine 0.57 L (0.66-1.25) mg/dL Glucose 104 H (74-99) mg/dL POC Glucose (mg/dL) 283 H 110 H (75-99) mg/dL Calcium (8.4-10.2) mg/dL AST (17-59) U/L C-Reactive Protein (<1.0) mg/dL Microbiology - Last 24 Hours (Table) 05/10/21 13:12 Gram Stain - Preliminary Foot - Right Wound Culture - Preliminary Gram Neg Bacilli Thrombosis Risk Factor Assmnt - Choose All That Apply Any of the Below Risk Factors Present?: Yes Each Factor Represents 1 point: Age 41-60 years Other Risk Factors: Yes Each Risk Factor Represents 2 Points: Malignancy Other congenital or acquired thrombophilia - If yes, enter type in comment: No Thrombosis Risk Factor Assessment Total Risk Factor Score: 3 Thrombosis Risk Factor Assessment Level: Moderate Risk Assessment and Plan Plan: Bilateral lower extremity cellulitis with large ulcers Diabetes mellitus type 2 insulin-dependent with severe hyperglycemia on presentation Hyponatremia on presentation Underlying history of seizure disorder Underlying history of hyperlipidemia Underlying history of gastroesophageal reflux disease At this time patient is admitted to medical floor he was started initially on insulin drip then switched to Levemir and sliding scale Patient is insisting that he has been taking insulin Lantus 50 units once daily and a sliding scale before meals Home medications reviewed and reordered Will continue with IV Zosyn and IV vancomycin at this time infectious disease consultation requested Will monitor closely
[2021-05-11] MEDS: ENOXAPARIN 40 MG/0.4 ML SYRINGE SQ SCH (12:31)
[2021-05-11] MEDS: PIPERACILLIN-TAZOBACTAM 3.375 GM in SODIUM CHLORIDE 0.9% 100 ML IVPB SCH ×3 (12:32→23:05)
[2021-05-11 16:56] LABS: Glucose,Whole Blood 140 mg/dL (75-99)
[2021-05-11 20:03] LABS: Glucose,Whole Blood 127 mg/dL (75-99)
[2021-05-11] MEDS: ATORVASTATIN 20 MG TAB PO SCH (20:09)
[2021-05-11 21:22] LABS: Glucose,Whole Blood 59 mg/dL (75-99)
[2021-05-11 21:44] LABS: Glucose,Whole Blood 77 mg/dL (75-99)
--- NOTE | 2021-05-11 23:58 | P.CONS ---
History of Present Illness - Reason for Consult Consult date: 05/11/21 Right foot infection Requesting physician: Helen Chen - Chief Complaint Right foot nonhealing wound and concern for cellulitis x one day - History of Present Illness Patient is a 60-year-old male with a past medical history significant for a chronic nonhealing wound on the plantar aspect of the right foot in this patient also have a wound on the left posterior heel area patient did have multiple admission to the hospital for this problem and has been stabilized with antibiotic therapy and the patient was advised to follow-up in the wound care center however he never showed up patient has been following with his library circulation technician patient mention she has been applying some Betadine cream, on his follow-up visit yesterday the patient was noted to have some swelling redness with concern for cellulitis the patient was advised to go to the hospital for IV antibiotic therapy patient has been complaining of some dull aching pain to the right foot plantar wound area intensity is about 4-5 out of 10 no radiation patient did have minimal drainage but denies any worsening patient on presentation the hospital was afebrile patient did have a normal white count creatinine was normal liver enzymes are normal local cultures obtained which are showing gram- negative bacilli blood culture has been pending patient did have x-rays of the foot soft tissue swelling patient is being treated with the vancomycin and Zosyn infectious disease was consulted for further management of antibiotic therapy Review of Systems Positive point has been mentioned in the HPI rest of the systems are negative Past Medical History Past Medical History: Cancer, Diabetes Mellitus, GERD/Reflux, Hyperlipidemia, Osteoarthritis (OA), Seizure Disorder Additional Past Medical History / Comment(s): IDDM type 1 per pt, bilateral feet neuropathy, pt states current wounds to bilateral feet/goes to [facility]/seen by Dr. Major (library circulation technician), past L lower extremity cellulitis with sepsis, L wrist cancerous tumor removed, past seizure about a year ago, arthritis L knee, vertigo, occasional diarrhea. History of Any Multi-Drug Resistant Organisms: MRSA Year Discovered:: 12/29/19 MDRO Source:: Left Leg Past Surgical History: Orthopedic Surgery, Tonsillectomy Additional Past Surgical History / Comment(s): 01/23/20 angiogram L leg, 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, colonoscopy, L eye surgery for strabismus. Past Anesthesia/Blood Transfusion Reactions: No Reported Reaction Smoking Status: Never smoker - Past Family History Father Family Medical History: Myocardial Infarction ([place]) Additional Family Medical History / Comment(s): Father of a [place] at the age of 57yrs. Mother Family Medical History: Cancer Additional Family Medical History / Comment(s): Mother from cancer at the age of 61 or 62 . Pt cannot recall type of cancer. Sister(s) Family Medical History: Diabetes Mellitus Additional Family Medical History / Comment(s): Sister had DM type 1. She is . Medications and Allergies Home Medications Medication Instructions Recorded Confirmed Type Omeprazole 20 mg PO DAILY 06/13/17 05/10/21 History Pioglitazone HCl [Actos] 15 mg PO DAILY 10/03/18 05/10/21 History Diphenox-Atrop 2.5-0.025 mg 1 tab PO BID PRN 11/17/19 05/10/21 History [Lomotil] Triamcinolone 0.5% Cream [Kenalog 1 applic TOPICAL DAILY PRN 01/19/20 05/10/21 History 0.5% Cream] Insulin Glargine [Lantus Vial] 50 unit SQ DAILY 05/15/20 05/10/21 History Rosuvastatin [Crestor] 10 mg PO HS 05/15/20 05/10/21 History Mupirocin 2% Oint [Bactroban 2% 1 applic TOPICAL BID PRN 12/29/20 05/10/21 History Oint] traMADol HCL 50 mg PO Q6H PRN 3 Days #12 tab 02/22/21 05/10/21 Rx HYDROcodone/APAP 10-325MG [[place] 1 tab PO TID PRN 04/20/21 05/10/21 History 10-325] Phenytoin Sodium Extended 200 mg PO BID 05/10/21 05/10/21 History [Dilantin] Allergies Allergy/AdvReac Type Severity Reaction Status Date / Time No Known Allergies Allergy Verified 05/10/21 14:42 Physical Exam Vitals: Vital Signs Temp Pulse Pulse Resp BP BP Pulse Ox 05/11/21 13:00 98.1 F 76 16 145/83 97 05/11/21 04:39 97.4 F L 89 16 145/78 98 05/10/21 20:42 97.8 F 85 16 122/70 97 05/10/21 18:05 98 F 94 17 116/57 98 05/10/21 17:02 89 18 140/81 97 05/10/21 16:17 85 18 133/77 96 Intake and Output 05/10/21 05/11/21 05/11/21 22:59 06:59 14:59 Intake Total 540 250 Balance 540 250 Intake: Intake, IV Titration 250 Amount Vancomycin 1,000 mg In 250 Sodium Chloride 0.9% 250 ml @ 125 mls/hr IVPB Q12H [facility] Rx#:[id number] Oral 540 Other: Voiding Method Toilet Toilet # Voids 1 3 # Bowel Movements 4 Weight 43.998 kg 43.998 kg GENERAL DESCRIPTION: Middle-aged male lying in bed, no distress. No tachypnea or accessory muscle of respiration use. HEENT: Shows Pallor , no scleral icterus. Oral mucous membrane is dry. No pharyngeal erythema or thrush NECK: Trachea central, no thyromegaly. LUNGS: Unlabored breathing. Clear to auscultation anteriorly. No wheeze or crackle. HEART: S1, S2, regular rate and rhythm. No loud murmur ABDOMEN: Soft, no tenderness , guarding or rigidity, no organomegaly EXTREMITIES: Left foot plantar wound which looks superficially with some slough tissue some surrounding redness or drainage SKIN: No rash, no masses palpable. NEUROLOGICAL: The patient is awake, alert, oriented x3, mood and affect normal. Results CBC & Chem 7: 05/10/21 13:12 05/11/21 06:43 Labs: Abnormal Lab Results - Last 24 Hours (Table) 05/10/21 05/10/21 05/10/21 Range/Units 14:58 15:50 15:54 Sodium 135 L (137-145) mmol/L Potassium 3.1 L (3.5-5.1) mmol/L Chloride 110 H (98-107) mmol/L Carbon Dioxide 20 L (22-30) mmol/L Creatinine 0.44 L (0.66-1.25) mg/dL Glucose 336 H (74-99) mg/dL POC Glucose (mg/dL) 452 H 400 H (75-99) mg/dL Hemoglobin A1c (0.0-6.0) % Calcium 6.6 L (8.4-10.2) mg/dL 05/10/21 05/10/21 05/10/21 Range/Units 16:58 18:02 20:15 Sodium (137-145) mmol/L Potassium (3.5-5.1) mmol/L Chloride (98-107) mmol/L Carbon Dioxide (22-30) mmol/L Creatinine (0.66-1.25) mg/dL Glucose (74-99) mg/dL POC Glucose (mg/dL) 349 H 203 H 290 H (75-99) mg/dL Hemoglobin A1c (0.0-6.0) % Calcium (8.4-10.2) mg/dL 05/10/21 05/10/21 05/11/21 Range/Units 20:33 22:00 06:43 Sodium (137-145) mmol/L Potassium (3.5-5.1) mmol/L Chloride (98-107) mmol/L Carbon Dioxide (22-30) mmol/L Creatinine (0.66-1.25) mg/dL Glucose (74-99) mg/dL POC Glucose (mg/dL) 296 H 283 H (75-99) mg/dL Hemoglobin A1c 14.1 H (0.0-6.0) % Calcium (8.4-10.2) mg/dL 05/11/21 05/11/21 05/11/21 Range/Units 06:43 07:21 11:56 Sodium (137-145) mmol/L Potassium (3.5-5.1) mmol/L Chloride (98-107) mmol/L Carbon Dioxide (22-30) mmol/L Creatinine 0.57 L (0.66-1.25) mg/dL Glucose 104 H (74-99) mg/dL POC Glucose (mg/dL) 110 H 405 H (75-99) mg/dL Hemoglobin A1c (0.0-6.0) % Calcium (8.4-10.2) mg/dL Microbiology - Last 24 Hours (Table) 05/10/21 13:12 Gram Stain - Preliminary Foot - Right Wound Culture - Preliminary Gram Neg Bacilli Assessment and Plan (1) Cellulitis of right foot Current Visit: Yes Status: Acute Code(s): L03.115 - CELLULITIS OF RIGHT LO WER LIMB SNOMED Code(s): 082821045 (2) Diabetic ulcer of right foot Current Visit: Yes Status: Acute Code(s): E11.621 - TYPE 2 DIABETES MELLITUS WITH FOOT ULCER; L97.519 - NON-PRS CHRONIC ULCER OTH PRT RIGHT FOOT W UNSP SEVERITY SNOMED Code(s): 480122354 Plan: 1patient with a chronic nonhealing wound on the plantar aspect of the right foot patient has been sent to the hospital by library circulation technician with concern for secondary cellulitis, with the x-ray negative for any bony changes and the local cultures are showing gram-negative bacilli. 2discontinue vancomycin 3continue with the Zosyn while waiting for the cultures to finalize. 4local wound care with the [facility] followed by moist dressing change daily We will follow on clinical condition and cultures to further adjust medication if needed Thank you for this consultation will follow this patient along with you
[2021-05-12] MEDS ORDERED: VANCOMYCIN TROUGH DUE 1 EACH MISC MISCELLANE ONE (05:00)
[2021-05-12] MEDS: SODIUM CHLORIDE 0.9% 1,000 ML IV SCH ×2 (06:00→19:40)
[2021-05-12 06:41] LABS: ALT 8 U/L (4-49); AST 17 U/L (17-59); African American GFR (CKD) >90 (>60 ml/min/1.73 sqM); Albumin 2.9 g/dL (3.5-5.0); Alkaline Phosphatase 69 U/L (38-126); Anion Gap 7 mmol/L; Blood Urea Nitrogen 14 mg/dL (9-20); Calcium 8.3 mg/dL (8.4-10.2); Carbon Dioxide 27 mmol/L (22-30); Chloride 103 mmol/L (98-107); Glucose 104 mg/dL (74-99); Non-African American GFR(CKD) >90 (>60 ml/min/1.73 sqM); Sodium 137 mmol/L (137-145); Total Bilirubin 0.2 mg/dL (0.2-1.3); Total Protein 5.9 g/dL (6.3-8.2)
[2021-05-12 07:00] LABS: Glucose,Whole Blood 90 mg/dL (75-99)
[2021-05-12] MEDS: INSULIN ASPART (NovoLOG) 100 UNIT/ML VIAL SQ SCH ×4 (07:07→21:21)
[2021-05-12] MEDS: PIPERACILLIN-TAZOBACTAM 3.375 GM in SODIUM CHLORIDE 0.9% 100 ML IVPB SCH ×3 (07:31→23:55)
[2021-05-12] MEDS: PANTOPRAZOLE 40 MG TABLET PO SCH (07:31)
[2021-05-12] MEDS: ENOXAPARIN 40 MG/0.4 ML SYRINGE SQ SCH (07:31)
[2021-05-12 08:41] LABS: HCT 31.6 % (39.6-50.0); HGB 9.5 g/dL (13.0-17.0); MCH 22.5 pg (27.0-32.0); MCHC 30.1 g/dL (32.0-37.0); MCV 74.7 fL (80.0-97.0); Mean Platelet Volume 9.4 fL (9.5-12.2); NRBC Per 100 WBC 0 /100 WBCS (0.0-0.0); Platelet Count 409 X 10*3/uL (140-440); RBC 4.23 X 10*6/uL (4.40-5.60); RDW 19.2 % (11.5-14.5); WBC 8.03 X 10*3/uL (4.50-10.00)
[2021-05-12] MEDS: PHENYTOIN SODIUM EXTENDED 100 MG CAP PO SCH ×2 (08:43→19:39)
[2021-05-12] MEDS: INSULIN DETEMIR (LEVEMIR) 100 UNIT/ML SYR SQ SCH (08:43)
[2021-05-12] MEDS: PIOGLITAZONE 15 MG TAB PO SCH (08:43)
--- NOTE | 2021-05-12 09:44 | P.PN ---
Subjective Progress Note Date: 05/12/21 Pietro Ryder, is a 60-year-old male who presented to [facility] emergency room with a chief complaint of worsening ulcers on bilateral lower extremities, patient is followed by a form block maker and at the wound care clinic, he was sent by his form block maker to the emergency room for admission due to worsening infection. He was evaluated in the emergency room vital examination on presentation revealed a temperature of 98.3 pulse 98 respiration 18 blood pressure 118/69 pulse ox percent on room air Laboratory data revealed a white blood count of 7.2 hemoglobin 10.6 platelet count 407 sodium 128 potassium 4.9 chloride 95 CO2 26 BUN 17 creatinine 0.67 glucose level was 625 Testing in the emergency room revealed foot x-ray done in the emergency room revealed soft tissue swelling without evidence of osteomyelitis. Patient was admitted to medical floor for further evaluation and treatment, he was started on IV Zosyn and IV vancomycin in the emergency room infectious disease consultation was requested. On 05/12/2021 patient is alert and oriented 3 resting comfortably in bed. Infectious disease services are following. Antibiotics adjusted to zosyn. Vancomycin discontinued per infectious disease services. Blood and wound cultures pending. White blood cell 8.03. Patient has remained afebrile. Current vitals temp 97.6, HR. 80, RR 16, BP 120/70 and SPO2 of 98% on room air Objective - Vital Signs Vital signs: Vital Signs Temp 97.6 F 05/12/21 05:00 Pulse 80 05/12/21 05:00 Resp 16 05/12/21 05:00 BP 120/70 05/12/21 05:00 Pulse Ox 98 05/12/21 05:00 Intake & Output 05/11/21 05/12/21 05/12/21 18:59 06:59 18:59 Intake Total 700 100 Balance 700 100 Weight 43.998 kg Intake: Intake, IV Titration 700 100 Amount Piperacillin-Tazobactam 3 100 100 .375 gm In Sodium Chloride 0.9% 100 ml @ 25 mls/hr IVPB Q8HR [facility] Rx# :[id number] Vancomycin 1,000 mg In 600 Sodium Chloride 0.9% 250 ml @ 125 mls/hr IVPB Q12H [facility] Rx#:[id number] Other: Voiding Method Toilet Toilet - Exam In general patient is alert and oriented x 3 in no distress HEENT head normocephalic and atraumatic Neck is supple no JVD no goiter no lymphadenopathy no carotid bruit Chest examination is clear to auscultation no crackles no wheezing Cardiac exam reveals regular heart sounds S1 and S2 no gallops no murmurs Abdomen is soft nontender no organomegaly with normal bowel sounds Extremity exam reveals no edema no cyanosis or clubbing, bilateral lower extremity large area of ulceration was purulent discharge Neurological examination reveals no gross focal deficits - Labs CBC & Chem 7: 05/12/21 05:52 05/12/21 05:52 Labs: Abnormal Lab Results - Last 24 Hours (Table) 05/11/21 05/11/21 05/11/21 Range/Units 06:43 11:56 16:55 RBC (4.40-5.60) X 10*6/uL Hgb (13.0-17.0) g/dL Hct (39.6-50.0) % MCV (80.0-97.0) fL MCH (27.0-32.0) pg MCHC (32.0-37.0) g/dL RDW (11.5-14.5) % MPV (9.5-12.2) fL Glucose (74-99) mg/dL POC Glucose (mg/dL) 405 H 140 H (75-99) mg/dL Hemoglobin A1c 14.1 H (0.0-6.0) % Calcium (8.4-10.2) mg/dL Total Protein (6.3-8.2) g/dL Albumin (3.5-5.0) g/dL 05/11/21 05/11/21 05/12/21 Range/Units 19:59 21:20 05:52 RBC (4.40-5.60) X 10*6/uL Hgb (13.0-17.0) g/dL Hct (39.6-50.0) % MCV (80.0-97.0) fL MCH (27.0-32.0) pg MCHC (32.0-37.0) g/dL RDW (11.5-14.5) % MPV (9.5-12.2) fL Glucose 104 H (74-99) mg/dL POC Glucose (mg/dL) 127 H 59 L (75-99) mg/dL Hemoglobin A1c (0.0-6.0) % Calcium 8.3 L (8.4-10.2) mg/dL Total Protein 5.9 L (6.3-8.2) g/dL Albumin 2.9 L (3.5-5.0) g/dL 05/12/21 Range/Units 05:52 RBC 4.23 L (4.40-5.60) X 10*6/uL Hgb 9.5 L (13.0-17.0) g/dL Hct 31.6 L (39.6-50.0) % MCV 74.7 L (80.0-97.0) fL MCH 22.5 L (27.0-32.0) pg MCHC 30.1 L (32.0-37.0) g/dL RDW 19.2 H (11.5-14.5) % MPV 9.4 L (9.5-12.2) fL Glucose (74-99) mg/dL POC Glucose (mg/dL) (75-99) mg/dL Hemoglobin A1c (0.0-6.0) % Calcium (8.4-10.2) mg/dL Total Protein (6.3-8.2) g/dL Albumin (3.5-5.0) g/dL Microbiology - Last 24 Hours (Table) 05/10/21 13:12 Blood Culture - Preliminary Blood No Growth after 24 hours 05/10/21 13:12 Blood Culture - Preliminary Blood No Growth after 24 hours 05/10/21 13:12 Gram Stain - Preliminary Foot - Right Wound Culture - Preliminary Gram Neg Bacilli Assessment and Plan Plan: Bilateral lower extremity cellulitis with large ulcers Diabetes mellitus type 2 insulin-dependent with severe hyperglycemia on presentation Hyponatremia on presentation Underlying history of seizure disorder Underlying history of hyperlipidemia Underlying history of gastroesophageal reflux disease At this time patient is admitted to medical floor he was started initially on insulin drip then switched to Levemir and sliding scale Patient is insisting that he has been taking insulin Lantus 50 units once daily and a sliding scale before meals Home medications reviewed and reordered Antibiotics adjusted per infectious disease Cultures still pending Will monitor closely
[2021-05-12 10:11] LABS: Basophils # (A) 0.05 X 10*3/uL (0.00-0.10); Basophils % (A) 0.6 %; Eosinophils # (A) 0.08 X 10*3/uL (0.04-0.35); Immature Grans, Automated 0.2 %; Lymphocytes # (A) 2.15 X 10*3/uL (0.90-5.00); Lymphocytes % (A) 26.8 %; Microcytosis (M) 2+; Monocytes # (A) 0.61 X 10*3/uL (0.20-1.00); Monocytes % (A) 7.6 %; Neutrophils # (A) 5.12 X 10*3/uL (1.80-7.70); Neutrophils % (A) 63.8 %
[2021-05-12 11:32] LABS: Glucose,Whole Blood 242 mg/dL (75-99)
[2021-05-12] MEDS ORDERED: INSULIN DETEMIR (LEVEMIR) 100 UNIT/ML SYR SQ ONE (12:00)
[2021-05-12 17:16] LABS: Glucose,Whole Blood 145 mg/dL (75-99)
--- NOTE | 2021-05-12 17:42 | P.PN ---
Subjective Progress Note Date: 05/12/21 Principal diagnosis: Right diabetic foot wound and cellulitis Patient is a 60-year-old male with a past medical history significant for chronic nonhealing wound on the plantar aspect of the right foot admitted to the hospital with an episode of cellulitis in the wound culture now showing gram-negative. On today's evaluation that is 05/12/2021, the patient denies having any fever or any chills, the patient is breathing comfortably, he denies pain to the right foot plantar wound area and no further drainage no chest pain shortness of breath or cough no abdominal pain no diarrhea Objective - Vital Signs Vital signs: Vital Signs Temp 98.4 F 05/12/21 12:31 Pulse 84 05/12/21 12:31 Resp 16 05/12/21 12:31 BP 136/76 05/12/21 12:31 Pulse Ox 97 05/12/21 12:31 Intake & Output 05/11/21 05/12/21 05/12/21 18:59 06:59 18:59 Intake Total 700 100 Balance 700 100 Weight 43.998 kg Intake: Intake, IV Titration 700 100 Amount Piperacillin-Tazobactam 3 100 100 .375 gm In Sodium Chloride 0.9% 100 ml @ 25 mls/hr IVPB Q8HR [facility] Rx# :[id number] Vancomycin 1,000 mg In 600 Sodium Chloride 0.9% 250 ml @ 125 mls/hr IVPB Q12H [facility] Rx#:[id number] Other: Voiding Method Toilet Toilet Toilet - Exam GENERAL DESCRIPTION: A middle-aged male lying in bed in no distress RESPIRATORY SYSTEM: Unlabored breathing , decreased breath sounds at bases HEART: S1 S2 regular rate and rhythm , ABDOMEN: Soft , no tenderness EXTREMITIES: Right foot plantar wound is currently dressed no drainage of the dressing - Labs CBC & Chem 7: 05/12/21 05:52 05/12/21 05:52 Labs: Abnormal Lab Results - Last 24 Hours (Table) 05/11/21 05/11/21 05/11/21 Range/Units 16:55 19:59 21:20 RBC (4.40-5.60) X 10*6/uL Hgb (13.0-17.0) g/dL Hct (39.6-50.0) % MCV (80.0-97.0) fL MCH (27.0-32.0) pg MCHC (32.0-37.0) g/dL RDW (11.5-14.5) % MPV (9.5-12.2) fL Glucose (74-99) mg/dL POC Glucose (mg/dL) 140 H 127 H 59 L (75-99) mg/dL Calcium (8.4-10.2) mg/dL Total Protein (6.3-8.2) g/dL Albumin (3.5-5.0) g/dL 05/12/21 05/12/21 05/12/21 Range/Units 05:52 05:52 11:31 RBC 4.23 L (4.40-5.60) X 10*6/uL Hgb 9.5 L (13.0-17.0) g/dL Hct 31.6 L (39.6-50.0) % MCV 74.7 L (80.0-97.0) fL MCH 22.5 L (27.0-32.0) pg MCHC 30.1 L (32.0-37.0) g/dL RDW 19.2 H (11.5-14.5) % MPV 9.4 L (9.5-12.2) fL Glucose 104 H (74-99) mg/dL POC Glucose (mg/dL) 242 H (75-99) mg/dL Calcium 8.3 L (8.4-10.2) mg/dL Total Protein 5.9 L (6.3-8.2) g/dL Albumin 2.9 L (3.5-5.0) g/dL Microbiology - Last 24 Hours (Table) 05/10/21 13:12 Blood Culture - Preliminary Blood No Growth after 48 hours 05/10/21 13:12 Blood Culture - Preliminary Blood No Growth after 48 hours 05/10/21 13:12 Gram Stain - Final Foot - Right Wound Culture - Final Morganella morganii Assessment and Plan (1) Cellulitis of right foot Current Visit: Yes Status: Acute Code(s): L03.115 - CELLULITIS OF RIGHT LOWER LIMB SNOMED Code(s): 626430149 (2) Diabetic ulcer of right foot Current Visit: Yes Status: Acute Code(s): E11.621 - TYPE 2 DIABETES MELLITUS WITH FOOT ULCER; L97.519 - NON-PRS CHRONIC ULCER OTH PRT RIGHT FOOT W UNSP SEVERITY SNOMED Code(s): 861604928 Plan: 1patient with a chronic nonhealing wound on the plantar aspect of the right foot patient has been sent to the 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 2discontinue vancomycin 3wound cultures have been finalized with Morganella antibiotic was adjusted to cefepime with a plan to finish therapy with oral Cipro 4local wound care with the Medihoney followed by moist dressing change daily Time with Patient: Less than 30
[2021-05-12] MEDS: ATORVASTATIN 20 MG TAB PO SCH (19:39)
[2021-05-12 20:27] LABS: Glucose,Whole Blood 120 mg/dL (75-99)
[2021-05-13 02:04] LABS: Glucose,Whole Blood 170 mg/dL (75-99)
[2021-05-13 06:34] LABS: ALT 8 U/L (4-49); AST 19 U/L (17-59); African American GFR (CKD) >90 (>60 ml/min/1.73 sqM); Albumin 3.3 g/dL (3.5-5.0); Alkaline Phosphatase 77 U/L (38-126); Anion Gap 3 mmol/L; Blood Urea Nitrogen 15 mg/dL (9-20); Calcium 8.9 mg/dL (8.4-10.2); Carbon Dioxide 30 mmol/L (22-30); Chloride 100 mmol/L (98-107); Globulin 3.2 g/dL; Glucose 232 mg/dL (74-99); Non-African American GFR(CKD) >90 (>60 ml/min/1.73 sqM); Potassium 4.6 mmol/L (3.5-5.1); Sodium 133 mmol/L (137-145); Total Bilirubin 0.3 mg/dL (0.2-1.3); Total Protein 6.5 g/dL (6.3-8.2)
[2021-05-13 07:09] LABS: Glucose,Whole Blood 241 mg/dL (75-99)
[2021-05-13] MEDS: INSULIN DETEMIR (LEVEMIR) 100 UNIT/ML SYR SQ SCH (08:04)
[2021-05-13] MEDS: INSULIN ASPART (NovoLOG) 100 UNIT/ML VIAL SQ SCH ×4 (08:04→20:05)
[2021-05-13] MEDS: ENOXAPARIN 40 MG/0.4 ML SYRINGE SQ SCH (08:04)
[2021-05-13] MEDS: PIPERACILLIN-TAZOBACTAM 3.375 GM in SODIUM CHLORIDE 0.9% 100 ML IVPB SCH ×3 (08:04→23:47)
[2021-05-13] MEDS: PIOGLITAZONE 15 MG TAB PO SCH (08:05)
[2021-05-13] MEDS: PANTOPRAZOLE 40 MG TABLET PO SCH (08:05)
[2021-05-13] MEDS: PHENYTOIN SODIUM EXTENDED 100 MG CAP PO SCH ×2 (08:05→20:05)
[2021-05-13 08:54] LABS: Basophils # (A) 0.06 X 10*3/uL (0.00-0.10); Basophils % (A) 0.8 %; Eosinophils # (A) 0.09 X 10*3/uL (0.04-0.35); Eosinophils % (A) 1.3 %; HCT 33.1 % (39.6-50.0); HGB 9.9 g/dL (13.0-17.0); Immature Grans, Automated 0.1 %; Lymphocytes # (A) 1.87 X 10*3/uL (0.90-5.00); Lymphocytes % (A) 26.5 %; MCH 22.2 pg (27.0-32.0); MCHC 29.9 g/dL (32.0-37.0); MCV 74.4 fL (80.0-97.0); Mean Platelet Volume 9.6 fL (9.5-12.2); Monocytes % (A) 8.5 %; NRBC Per 100 WBC 0 /100 WBCS (0.0-0.0); Neutrophils # (A) 4.43 X 10*3/uL (1.80-7.70); Neutrophils % (A) 62.8 %; Platelet Count 424 X 10*3/uL (140-440); RBC 4.45 X 10*6/uL (4.40-5.60); RDW 19.2 % (11.5-14.5); WBC 7.06 X 10*3/uL (4.50-10.00)
[2021-05-13 12:15] LABS: Glucose,Whole Blood 255 mg/dL (75-99)
[2021-05-13] MEDS: DIPHENOX-ATROP 2.5-0.025 MG 1 EACH TAB PO PRN ×2 (14:05→18:21)
[2021-05-13] MEDS: SODIUM CHLORIDE 0.9% 1,000 ML IV SCH ×2 (15:49→20:07)
[2021-05-13 17:29] LABS: Glucose,Whole Blood 270 mg/dL (75-99)
[2021-05-13 20:02] LABS: Glucose,Whole Blood 273 mg/dL (75-99)
[2021-05-13] MEDS: ATORVASTATIN 20 MG TAB PO SCH (20:05)
[2021-05-14 07:34] LABS: Glucose,Whole Blood 281 mg/dL (75-99)
[2021-05-14] MEDS: INSULIN ASPART (NovoLOG) 100 UNIT/ML VIAL SQ SCH ×2 (07:47→12:12)
[2021-05-14] MEDS: ENOXAPARIN 40 MG/0.4 ML SYRINGE SQ SCH (07:47)
[2021-05-14] MEDS: PIPERACILLIN-TAZOBACTAM 3.375 GM in SODIUM CHLORIDE 0.9% 100 ML IVPB SCH (07:48)
[2021-05-14] MEDS: PIOGLITAZONE 15 MG TAB PO SCH (07:48)
[2021-05-14] MEDS: PANTOPRAZOLE 40 MG TABLET PO SCH (07:48)
[2021-05-14] MEDS: INSULIN DETEMIR (LEVEMIR) 100 UNIT/ML SYR SQ SCH (07:48)
[2021-05-14] MEDS: SODIUM CHLORIDE 0.9% 1,000 ML IV SCH (07:49)
[2021-05-14] MEDS: PHENYTOIN SODIUM EXTENDED 100 MG CAP PO SCH (07:49)
[2021-05-14 09:17] LABS: Basophils # (A) 0.08 X 10*3/uL (0.00-0.10); Basophils % (A) 0.9 %; Eosinophils # (A) 0.12 X 10*3/uL (0.04-0.35); Eosinophils % (A) 1.3 %; HCT 34.3 % (39.6-50.0); Immature Grans, Automated 0.2 %; Lymphocytes # (A) 2.51 X 10*3/uL (0.90-5.00); Lymphocytes % (A) 26.8 %; MCH 21.9 pg (27.0-32.0); MCHC 29.2 g/dL (32.0-37.0); MCV 75.2 fL (80.0-97.0); Mean Platelet Volume 9.6 fL (9.5-12.2); Monocytes # (A) 0.65 X 10*3/uL (0.20-1.00); Monocytes % (A) 6.9 %; NRBC Per 100 WBC 0 /100 WBCS (0.0-0.0); Neutrophils # (A) 5.99 X 10*3/uL (1.80-7.70); Neutrophils % (A) 63.9 %; Platelet Count 432 X 10*3/uL (140-440); RBC 4.56 X 10*6/uL (4.40-5.60); RDW 19.4 % (11.5-14.5); WBC 9.37 X 10*3/uL (4.50-10.00)
[2021-05-14 09:35] LABS: ALT 8 U/L (10-49); AST 13 U/L (14-35); African American GFR (CKD) 107.2 (60.0-200.0); Albumin 3.8 g/dL (3.8-4.9); Albumin/Globulin Ratio 1.41 (1.60-3.17); Alkaline Phosphatase 84 U/L (41-126); Blood Urea Nitrogen 16.2 mg/dL (9.0-27.0); Calcium 8.9 mg/dL (8.7-10.3); Carbon Dioxide 27.7 mmol/L (20.0-27.5); Chloride 97 mmol/L (96-109); Globulin 2.7 g/dL (1.6-3.3); Glucose 285 mg/dL (70-110); Non-African American GFR(CKD) 92.5 (60.0-200.0); Potassium 4.8 mmol/L (3.5-5.5); Sodium 134 mmol/L (135-145); Total Bilirubin <0.15 mg/dL (0.30-1.20); Total Protein 6.5 g/dL (6.2-8.2)
[2021-05-14 11:36] LABS: Glucose,Whole Blood 215 mg/dL (75-99)
[2021-05-14 12:40] VITALS: BP 126/73; PULSE 75; RESP 16; TEMP 97.6
--- NOTE | 2021-05-14 14:51 | P.PN ---
Subjective Progress Note Date: 05/13/21 Pietro Ryder, is a 60-year-old male who presented to [facility] emergency room with a chief complaint of worsening ulcers on bilateral lower extremities, patient is followed by a assembly mechanic and at the wound care clinic, he was sent by his assembly mechanic to the emergency room for admission due to worsening infection. He was evaluated in the emergency room vital examination on presentation revealed a temperature of 98.3 pulse 98 respiration 18 blood pressure 118/69 pulse ox percent on room air Laboratory data revealed a white blood count of 7.2 hemoglobin 10.6 platelet count 407 sodium 128 potassium 4.9 chloride 95 CO2 26 BUN 17 creatinine 0.67 glucose level was 625 Testing in the emergency room revealed foot x-ray done in the emergency room revealed soft tissue swelling without evidence of osteomyelitis. Patient was admitted to medical floor for further evaluation and treatment, he was started on IV Zosyn and IV vancomycin in the emergency room infectious disease consultation was requested. On 05/12/2021 patient is alert and oriented 3 resting comfortably in bed. Infectious disease services are following. Antibiotics adjusted to zosyn. Vancomycin discontinued per infectious disease services. Blood and wound cultures pending. White blood cell 8.03. Patient has remained afebrile. Current vitals temp 97.6, HR. 80, RR 16, BP 120/70 and SPO2 of 98% on room air, On 05/13/2021 patient was seen and examined on for medical he is alert and oriented 3 in no apparent distress there is no fever or chills no headache or dizziness no chest pain or shortness of breath no cough no nausea or vomiting no abdominal pain no diarrhea and no urinary symptoms, patient has severe bilateral lower extremity cellulitis with large open ulcers, continue with IV antibiotics Dr. Moran following Objective - Vital Signs Vital signs: Vital Signs Temp 98 F 05/13/21 12:44 Pulse 96 05/13/21 12:44 Resp 16 05/13/21 12:44 BP 123/74 05/13/21 12:44 Pulse Ox 98 05/13/21 12:44 Intake & Output 05/12/21 05/13/21 05/13/21 18:59 06:59 18:59 Intake Total 100 Balance 100 Intake: Intake, IV Titration 100 Amount Piperacillin-Tazobactam 3 100 .375 gm In Sodium Chloride 0.9% 100 ml @ 25 mls/hr IVPB Q8HR [facility] Rx# :[id number] Other: Voiding Method Toilet Toilet Toilet # Voids 5 3 - Exam In general patient is alert and oriented x 3 in no distress HEENT head normocephalic and atraumatic Neck is supple no JVD no goiter no lymphadenopathy no carotid bruit Chest examination is clear to auscultation no crackles no wheezing Cardiac exam reveals regular heart sounds S1 and S2 no gallops no murmurs Abdomen is soft nontender no organomegaly with normal bowel sounds Extremity exam reveals no edema no cyanosis or clubbing, bilateral lower extremity large area of ulceration was purulent discharge Neurological examination reveals no gross focal deficits - Labs CBC & Chem 7: 05/14/21 06:07 05/14/21 06:07 Labs: Abnormal Lab Results - Last 24 Hours (Table) 05/12/21 05/12/21 05/13/21 Range/Units 17:14 20:16 02:02 Hgb (13.0-17.0) g/dL Hct (39.6-50.0) % MCV (80.0-97.0) fL MCH (27.0-32.0) pg MCHC (32.0-37.0) g/dL RDW (11.5-14.5) % Sodium (137-145) mmol/L Glucose (74-99) mg/dL POC Glucose (mg/dL) 145 H 120 H 170 H (75-99) mg/dL Albumin (3.5-5.0) g/dL 05/13/21 05/13/21 05/13/21 Range/Units 05:54 05:54 07:05 Hgb 9.9 L (13.0-17.0) g/dL Hct 33.1 L (39.6-50.0) % MCV 74.4 L (80.0-97.0) fL MCH 22.2 L (27.0-32.0) pg MCHC 29.9 L (32.0-37.0) g/dL RDW 19.2 H (11.5-14.5) % Sodium 133 L (137-145) mmol/L Glucose 232 H (74-99) mg/dL POC Glucose (mg/dL) 241 H (75-99) mg/dL Albumin 3.3 L (3.5-5.0) g/dL 05/13/21 Range/Units 11:54 Hgb (13.0-17.0) g/dL Hct (39.6-50.0) % MCV (80.0-97.0) fL MCH (27.0-32.0) pg MCHC (32.0-37.0) g/dL RDW (11.5-14.5) % Sodium (137-145) mmol/L Glucose (74-99) mg/dL POC Glucose (mg/dL) 255 H (75-99) mg/dL Albumin (3.5-5.0) g/dL Microbiology - Last 24 Hours (Table) 05/10/21 13:12 Blood Culture - Preliminary Blood No Growth after 48 hours 05/10/21 13:12 Blood Culture - Preliminary Blood No Growth after 48 hours 05/10/21 13:12 Gram Stain - Final Foot - Right Wound Culture - Final Morganella morganii Assessment and Plan Plan: Bilateral lower extremity cellulitis with large ulcers Diabetes mellitus type 2 insulin-dependent with severe hyperglycemia on presentation Hyponatremia on presentation Underlying history of seizure disorder Underlying history of hyperlipidemia Underlying history of gastroesophageal reflux disease At this time patient is admitted to medical floor he was started initially on insulin drip then switched to Levemir and sliding scale Patient is insisting that he has been taking insulin Lantus 50 units once daily and a sliding scale before meals Home medications reviewed and reordered Antibiotics adjusted per infectious disease Cultures still pending Will monitor closely
--- NOTE | 2021-05-14 14:56 | P.DS ---
Providers Date of admission: 05/10/21 15:04 Expected date of discharge: 05/14/21 Attending physician: Helen Chen Consults: 05/11/21 10:56 Consult Physician Routine Consulting Provider: Tess Moran Consult Reason/Comments: cellulitis with ulcers Do you want consulting provider notified?: Yes Primary care physician: Helen Chen [facility] Course: Diagnosis on discharge: Bilateral lower extremity cellulitis with large ulcers Diabetes mellitus type 2 insulin-dependent with severe hyperglycemia on presentation Hyponatremia on presentation Underlying history of seizure disorder Underlying history of hyperlipidemia Underlying history of gastroesophageal reflux disease Hospital course: Pietro Ryder, is a 60-year-old male who presented to [facility] emergency room with a chief complaint of worsening ulcers on bilateral lower extremities, patient is followed by a ecg technician and at the wound care clinic, he was sent by his ecg technician to the emergency room for admission due to worsening infection. He was evaluated in the emergency room vital examination on presentation revealed a temperature of 98.3 pulse 98 respiration 18 blood pressure 118/69 pulse ox percent on room air Laboratory data revealed a white blood count of 7.2 hemoglobin 10.6 platelet count 407 sodium 128 potassium 4.9 chloride 95 CO2 26 BUN 17 creatinine 0.67 glucose level was 625 Testing in the emergency room revealed foot x-ray done in the emergency room revealed soft tissue swelling without evidence of osteomyelitis. Patient was admitted to medical floor for further evaluation and treatment, he was started on IV Zosyn and IV vancomycin in the emergency room infectious disease consultation was requested. On 05/12/2021 patient is alert and oriented 3 resting comfortably in bed. Infectious disease services are following. Antibiotics adjusted to zosyn. Vancomycin discontinued per infectious disease services. Blood and wound cultures pending. White blood cell 8.03. Patient has remained afebrile. Current vitals temp 97.6, HR. 80, RR 16, BP 120/70 and SPO2 of 98% on room air, On 05/13/2021 patient was seen and examined on for medical he is alert and oriented 3 in no apparent distress there is no fever or chills no headache or dizziness no chest pain or shortness of breath no cough no nausea or vomiting no abdominal pain no diarrhea and no urinary symptoms, patient has severe bilateral lower extremity cellulitis with large open ulcers, continue with IV antibiotics Dr. Dean following on 05/14 patient was seen and examined on the medical floor he is alert and oriented 3 in no apparent distress he was evaluated by Dr. trevizo and cleared for discharge on oral Cipro, patient will be discharged home today he will be followed in our office in 2-3 days for further evaluation and treatment Patient Condition at Discharge: Fair Plan - Discharge Summary Discharge Rx Participant: No New Discharge Prescriptions: New Ciprofloxacin HCl [Cipro] 500 mg PO Q12HR 10 Days #20 tab INSULIN ASPART (NovoLOG) [NovoLOG (formulary)] 0 unit SQ ACHS ml Acetaminophen Tab [Tylenol] 650 mg PO Q6HR PRN tab PRN Reason: Mild Pain Or Fever > 100.5 Continue Omeprazole 20 mg PO DAILY Pioglitazone HCl [Actos] 15 mg PO DAILY Diphenox-Atrop 2.5-0.025 mg [Lomotil] 1 tab PO BID PRN PRN Reason: Loose Stool Rosuvastatin [Crestor] 10 mg PO HS Insulin Glargine [Lantus Vial] 50 unit SQ DAILY traMADol HCL 50 mg PO Q6H PRN 3 Days #12 tab PRN Reason: Pain Phenytoin Sodium Extended [Dilantin] 200 mg PO BID Discontinued Triamcinolone 0.5% Cream [Kenalog 0.5% Cream] 1 applic TOPICAL DAILY PRN PRN Reason: Rash Mupirocin 2% Oint [Bactroban 2% Oint] 1 applic TOPICAL BID PRN PRN Reason: Rash HYDROcodone/APAP 10-325MG [Davis 10-325] 1 tab PO TID PRN PRN Reason: Pain Discharge Medication List Omeprazole 20 mg PO DAILY 06/13/17 [History] Pioglitazone HCl [Actos] 15 mg PO DAILY 10/03/18 [History] Diphenox-Atrop 2.5-0.025 mg [Lomotil] 1 tab PO BID PRN 11/17/19 [History] Insulin Glargine [Lantus Vial] 50 unit SQ DAILY 05/15/20 [History] Rosuvastatin [Crestor] 10 mg PO HS 05/15/20 [History] traMADol HCL 50 mg PO Q6H PRN 3 Days #12 tab 02/22/21 [Rx] Phenytoin Sodium Extended [Dilantin] 200 mg PO BID 05/10/21 [History] Acetaminophen Tab [Tylenol] 650 mg PO Q6HR PRN tab 05/14/21 [Rx] Ciprofloxacin HCl [Cipro] 500 mg PO Q12HR 10 Days #20 tab 05/14/21 [Rx] INSULIN ASPART (NovoLOG) [NovoLOG (formulary)] 0 unit SQ ACHS ml 05/14/21 [Rx] Follow up Appointment(s)/Referral(s): Helen Chen MD [Primary Care Provider] - 1-2 days
== END 2021-05-14 17:15 | disposition home or self-care (01) | DRG 638 ==
LOC: EC 12:12 → 5NMEDONC 15:04
PROVIDERS: ADMIT Internal Medicine; ATTEND Internal Medicine
DX: E11.628 Type 2 diabetes mellitus with other skin complications (principal); L03.115 Cellulitis of right lower limb; L03.116 Cellulitis of left lower limb; E87.1 Hypo-osmolality and hyponatremia; L97.429 Non-pressure chronic ulcer of left heel and midfoot with unspecified severity; L97.419 Non-pressure chronic ulcer of right heel and midfoot with unspecified severity; E11.40 Type 2 diabetes mellitus with diabetic neuropathy, unspecified; E11.65 Type 2 diabetes mellitus with hyperglycemia; E11.621 Type 2 diabetes mellitus with foot ulcer; E11.622 Type 2 diabetes mellitus with other skin ulcer; G40.909 Epilepsy, unspecified, not intractable, without status epilepticus; Z79.4 Long term (current) use of insulin; E78.5 Hyperlipidemia, unspecified; K21.9 Gastro-esophageal reflux disease without esophagitis; M17.12 Unilateral primary osteoarthritis, left knee; Z79.84 Long term (current) use of oral hypoglycemic drugs; Z79.899 Other long term (current) drug therapy; Z86.19 Personal history of other infectious and parasitic diseases; Z86.14 Personal history of Methicillin resistant Staphylococcus aureus infection; Z86.69 Personal history of other diseases of the nervous system and sense organs; Z85.830 Personal history of malignant neoplasm of bone; Z90.89 Acquired absence of other organs; Z86.59 Personal history of other mental and behavioral disorders; Z87.19 Personal history of other diseases of the digestive system; Z98.890 Other specified postprocedural states; Z83.3 Family history of diabetes mellitus; Z82.49 Family history of ischemic heart disease and other diseases of the circulatory system; Z80.9 Family history of malignant neoplasm, unspecified
CPT/HCPCS: 36415; 80048; 80053; 83036; 83605; 85025; 86140; 87040; 87070; 87077; 87186; 87205; 96365; 96375; 99284

== ENCOUNTER 2021-05-30 12:59 | Emergency (ER) | payer OTHER ==
[2021-05-30 13:14] VITALS: TEMP 98
[2021-05-30] MEDS ORDERED: ONDANSETRON 4 MG ODT STARTER PACK 2 TAB BTL PO STA (13:40)
--- NOTE | 2021-05-30 13:42 | ED ---
General Adult HPI - General Source: patient, RN notes reviewed, old records reviewed Mode of arrival: wheelchair Limitations: no limitations <Izzy Astorga - Last Filed: 05/31/21 05:59> <Kori Kidd - Last Filed: 06/02/21 10:35> - General Chief complaint: Nausea/Vomiting/Diarrhea Stated complaint: Nausea Time Seen by Provider: 05/30/21 13:33 - History of Present Illness Initial comments: This patient's a 61-year-old male presents emergency department today with a chief complaint of nausea. Denies abdominal pain or vomiting. Patient reports over the past 2 days he just does not feel like eating due to nausea. He reports his history of gastritis and ulcer and is being treated with omeprazole. He denies any recent GERD-like symptoms. He denies any fever, chills, chest pain, shortness of breath. He states he simply feels nauseated. (Izzy Astorga) - Related Data Home Medications Medication Instructions Recorded Confirmed Omeprazole 20 mg PO DAILY 06/13/17 05/10/21 Pioglitazone HCl [Actos] 15 mg PO DAILY 10/03/18 05/10/21 Diphenox-Atrop 2.5-0.025 mg 1 tab PO BID PRN 11/17/19 05/10/21 [Lomotil] Insulin Glargine [Lantus Vial] 50 unit SQ DAILY 05/15/20 05/10/21 Rosuvastatin [Crestor] 10 mg PO HS 05/15/20 05/10/21 Phenytoin Sodium Extended 200 mg PO BID 05/10/21 05/10/21 [Dilantin] Previous Rx's Medication Instructions Recorded traMADol HCL 50 mg PO Q6H PRN 3 Days #12 tab 02/22/21 Acetaminophen Tab [Tylenol] 650 mg PO Q6HR PRN tab 05/14/21 Ciprofloxacin HCl [Cipro] 500 mg PO Q12HR 10 Days #20 tab 05/14/21 INSULIN ASPART (NovoLOG) [NovoLOG 0 unit SQ ACHS ml 05/14/21 (formulary)] Ondansetron Odt [Zofran Odt] 4 mg PO Q8HR PRN #10 tab 05/30/21 Allergies Allergy/AdvReac Type Severity Reaction Status Date / Time No Known Allergies Allergy Verified 05/30/21 13:10 Review of Systems ROS Other: All systems not noted in ROS Statement are negative. <Izzy Astorga - Last Filed: 05/31/21 05:59> ROS Other: All systems not noted in ROS Statement are negative. <Kori Kidd - Last Filed: 06/02/21 10:35> ROS Statement: Those systems with pertinent positive or pertinent negative responses have been documented in the HPI. 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 History of Any Multi-Drug Resistant Organisms: MRSA Date of last positivie culture/infection: 12/29/19 MDRO Source:: Left Leg Past Surgical History: Orthopedic Surgery, Tonsillectomy Additional Past Surgical History / Comment(s): 01/23/20 angiogram L leg, 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, colonoscopy, L eye surgery for strabismus. Past Anesthesia/Blood Transfusion Reactions: No Reported Reaction Past Psychological History: Depression Smoking Status: Never smoker Past Alcohol Use History: None Reported Past Drug Use History: None Reported - Past Family History Father Family Medical History: Myocardial Infarction (OR) Additional Family Medical History / Comment(s): Father of a OR at the age of 57yrs. Mother Family Medical History: Cancer Additional Family Medical History / Comment(s): Mother from cancer at the age of 61 or 62 . Pt cannot recall type of cancer. Sister(s) Family Medical History: Diabetes Mellitus Additional Family Medical History / Comment(s): Sister had DM type 1. She is . <RizwanIzzy - Last Filed: 05/31/21 05:59> General Exam Limitations: no limitations General appearance: alert, in no apparent distress Head exam: Present: atraumatic, normocephalic, normal inspection Eye exam: Present: normal appearance, PERRL, EOMI. Absent: scleral icterus, conjunctival injection, periorbital swelling ENT exam: Present: normal exam, mucous membranes moist Neck exam: Present: normal inspection. Absent: tenderness, meningismus, lymphadenopathy Respiratory exam: Present: normal lung sounds bilaterally. Absent: respiratory distress, wheezes, rales, rhonchi, stridor Cardiovascular Exam: Present: regular rate, normal rhythm, normal heart sounds. Absent: systolic murmur, diastolic murmur, rubs, gallop, clicks GI/Abdominal exam: Present: soft, normal bowel sounds. Absent: distended, tenderness, guarding, rebound, rigid Psychiatric exam: Present: normal affect, normal mood Skin exam: Present: warm, dry, intact, normal color. Absent: rash <Izzy Astorga - Last Filed: 05/31/21 05:59> - General Exam Comments Initial Comments: 61-year-old male. Alert and oriented. No acute distress. (Izzy Astorga) Course Vital Signs 05/30/21 05/30/21 13:10 13:45 Temperature 98.0 F Pulse Rate 120 H 100 Respiratory 20 18 Rate Blood Pressure 124/70 126/72 O2 Sat by Pulse 100 95 Oximetry Medical Decision Making <Izzy Astorga - Last Filed: 05/31/21 05:59> <Kori Kidd - Last Filed: 06/02/21 10:35> - Medical Decision Making This 61-year-old male presents emergency Department chief complaint of nausea. Patient denies any abdominal pain. He denies any fever or chills or other complaints. He reports he just does not feel like eating for the past 2 days. Discussed possible viral etiology nausea. Patient advised to increase fluid intake and Patient will be prescribed Zofran. Discussed that if he has abdominal pain or does have episodes of vomiting Patient is a welcome to return to the ER for further evaluation. (Izzy Astorga) I was available for consultation in the emergency department. The history and physical exam were done by the midlevel provider. I was consulted for this patients care. I reviewed the case with the midlevel provider and based on their presentation of the patient, I agree with the assessment, medical decision making and plan of care as documented. Chart was dictated using [employer] dictation software. Attempts were made to correct any dictation errors however some typographical errors may persist. Patient was seen during a national state of emergency due to the Covid-19 pandemic. (Kori Kidd) Disposition Is patient prescribed a controlled substance at d/c from ED?: No Time of Disposition: 13:41 <Izzy Astorga - Last Filed: 05/31/21 05:59> <Kori Kidd - Last Filed: 06/02/21 10:35> Clinical Impression: Nausea Disposition: HOME SELF-CARE Condition: Good Instructions (If sedation given, give patient instructions): Acute Nausea and Vomiting (ED) Prescriptions: Ondansetron Odt [Zofran Odt] 4 mg PO Q8HR PRN #10 tab PRN Reason: Nausea Referrals: Helen Chen MD [Primary Care Provider] - 1-2 days
[2021-05-30 14:21] VITALS: BP 126/72; PULSE 100; RESP 18
== END 2021-05-30 14:15 | disposition home or self-care (01) ==
LOC: EC 12:59
DX: R11.0 Nausea (principal); E10.9 Type 1 diabetes mellitus without complications
CPT/HCPCS: 99283; S0119

== ENCOUNTER 2021-06-15 16:01 | Observation (INO) | payer OTHER ==
[2021-06-15] MEDS ORDERED: ONDANSETRON 4 MG/2 ML VIAL IVP STA ×2 (18:33→20:25)
[2021-06-15] MEDS ORDERED: SODIUM CHLORIDE 0.9% 1,000 ML IV STA ×2 (18:33→20:25)
--- NOTE | 2021-06-15 18:38 | ED ---
General Adult HPI - General Chief complaint: Nausea/Vomiting/Diarrhea Stated complaint: N/V/D Time Seen by Provider: 06/15/21 17:51 Source: patient, RN notes reviewed Mode of arrival: wheelchair Limitations: no limitations - History of Present Illness Initial comments: 61-year-old male presents to the emergency department for evaluation of nausea and vomiting, onset 5:00 this morning. Patient states he has had 4-5 episodes of vomiting today. Patient states he was feeling short of breath earlier today when ambulating to the bathroom. Reports history of Type 1 Diabetes. States he does have wounds on bilateral feet that are being treated by wound care and appear to be healing well. Denies sick exposures, fever, chills, sick exposures, dizziness, chest pain, abdominal pain, diarrhea, hematochezia, dysuria, or hematuria. - Related Data Home Medications Medication Instructions Recorded Confirmed Omeprazole 20 mg PO DAILY 06/13/17 06/15/21 Pioglitazone HCl [Actos] 15 mg PO DAILY 10/03/18 06/15/21 Diphenox-Atrop 2.5-0.025 mg 1 tab PO BID PRN 11/17/19 06/15/21 [Lomotil] Insulin Glargine [Lantus Vial] 50 unit SQ DAILY 05/15/20 06/15/21 Rosuvastatin [Crestor] 10 mg PO HS 05/15/20 06/15/21 Phenytoin Sodium Extended 200 mg PO BID 05/10/21 06/15/21 [Dilantin] HYDROcodone/APAP 10-325MG [[place] 1 tab PO TID PRN 06/15/21 06/15/21 10-325] INSULIN ASPART (NovoLOG) [NovoLOG See Protocol SQ TID-W/MEALS 06/15/21 06/15/21 (formulary)] Latanoprost/Pf [Latanoprost 0.005% 1 drop BOTH EYES HS 06/15/21 06/15/21 Eye Drop] Mupirocin 2% Oint [Bactroban 2% 1 applic TOPICAL DAILY 06/15/21 06/15/21 Oint] Triamcinolone 0.5% Cream [Kenalog 1 applic TOPICAL BID 06/15/21 06/15/21 0.5% Cream] Previous Rx's Medication Instructions Recorded traMADol HCL 50 mg PO Q6H PRN 3 Days #12 tab 02/22/21 Acetaminophen Tab [Tylenol] 650 mg PO Q6HR PRN tab 05/14/21 Ondansetron Odt [Zofran Odt] 4 mg PO Q8HR PRN #10 tab 05/30/21 Allergies Allergy/AdvReac Type Severity Reaction Status Date / Time No Known Allergies Allergy Verified 06/15/21 20:58 Review of Systems ROS Statement: Those systems with pertinent positive or pertinent negative responses have been documented in the HPI. ROS Other: All systems not noted in ROS Statement are negative. Past Medical History Past Medical History: Diabetes Mellitus, Diabetes Mellitus, GERD/Reflux, Hyperlipidemia, Osteoarthritis (OA), Seizure Disorder Additional Past Medical History / Comment(s): IDDM type 1 per pt, bilateral feet neuropathy, pt states current wounds to bilateral feet/goes to [facility]/seen by Dr. Major (chief mate), past L lower extremity cellulitis with sepsis, L wrist cancerous tumor removed, past seizure about a year ago, arthritis L knee, vertigo, occasional diarrhea. History of Any Multi-Drug Resistant Organisms: MRSA Date of last positivie culture/infection: 12/29/19 MDRO Source:: Left Leg Past Surgical History: Orthopedic Surgery, Tonsillectomy Additional Past Surgical History / Comment(s): 01/23/20 angiogram L leg, 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, colonoscopy, L eye surgery for strabismus. Past Anesthesia/Blood Transfusion Reactions: No Reported Reaction Past Psychological History: Depression Smoking Status: Never smoker Past Alcohol Use History: None Reported Past Drug Use History: None Reported - Past Family History Father Family Medical History: Myocardial Infarction (PR) Additional Family Medical History / Comment(s): Father of a PR at the age of 57yrs. Mother Family Medical History: Cancer Additional Family Medical History / Comment(s): Mother from cancer at the age of 61 or 62 . Pt cannot recall type of cancer. Sister(s) Family Medical History: Diabetes Mellitus Additional Family Medical History / Comment(s): Sister had DM type 1. She is . General Exam Limitations: no limitations (Well-developed, ill appearing male in no acute distress. Initial temperature 97.8, pulse 113, respirations 20, blood pressure 114/73, pulse ox 100% on room air.) General appearance: alert, in no apparent distress Eye exam: Present: normal appearance. Absent: scleral icterus, conjunctival injection ENT exam: Present: normal exam, normal oropharynx, mucous membranes moist Respiratory exam: Present: normal lung sounds bilaterally. Absent: respiratory distress, wheezes, rales, rhonchi, stridor Cardiovascular Exam: Present: regular rate, normal rhythm, normal heart sounds. Absent: systolic murmur, diastolic murmur, rubs, gallop, clicks GI/Abdominal exam: Present: soft, normal bowel sounds. Absent: distended, tenderness, guarding, rebound, rigid Back exam: Absent: CVA tenderness (R), CVA tenderness (L) Neurological exam: Present: alert, oriented X3, CN II-XII intact Psychiatric exam: Present: flat affect Skin exam: Present: warm, dry. Absent: intact (Non-erythematous wound dorsal surface right foot. Small wounds on posterior aspect of left lower extremity with small amount of yellowish drainage.) Course Vital Signs 06/15/21 06/15/21 16:32 21:13 Temperature 97.8 F Pulse Rate 113 H 80 Respiratory 20 17 Rate Blood Pressure 114/73 150/87 O2 Sat by Pulse 100 97 Oximetry - Reevaluation(s) Reevaluation #1: 06/15/21 19:30 Upon reassessment, patient continues to have episodes of dry heaving and emesis. Unable to tolerate oral intake. Denies pain. 06/15/21 21:11 Patient is hyperglycemic. He will be given a second liter of fluids then glucose will be rechecked. Continues to have episodes of small amount of geovanni sis. 06/15/21 23:[address] Chen regarding admission of this patient. He is agreeable with this plan of care. Patient will continue to be hydrated and antiemetics ordered. Discussed blood glucose of 317 with patient; he will be given 5 units regular insulin SQ. Medical Decision Making - Medical Decision Making 61-year-old male with a past medical history of type 1 diabetes, diabetic foot wounds, and seizure disorder presents to the emergency department with complaints of nausea and vomiting. Upon exam, patient is ill-appearing, but in no acute distress. He is slightly tachycardic, but afebrile and denies any pain. Laboratory studies were reviewed. Patient is hyperglycemic with a blood glucose of 544 and 4+ glucose in his urine. He is mildly dehydrated with 1+ ketones in his urine and Na 132. Patient continues to have nausea and vomiting despite administration of anti-emetics. Patient was given IV fluids with minim al improvement. 5 units of regular insulin was administered. Discussed hospital admission, and patient is agreeable with this plan of care. I did speak to Dr. Chen who agrees to accept this admission for intractable nausea and vomiting and hyperglycemia. Attending: Marlon. - Lab Data Result diagrams: 06/15/21 18:43 06/15/21 18:43 Lab Results 06/15/21 06/15/21 06/15/21 Range/Units 18:43 18:43 18:43 WBC 12.8 H (3.8-10.6) k/uL RBC 5.43 (4.30-5.90) m/uL Hgb 12.2 L (13.0-17.5) gm/dL Hct 41.4 (39.0-53.0) % MCV 76.4 L (80.0-100.0) fL MCH 22.6 L (25.0-35.0) pg MCHC 29.5 L (31.0-37.0) g/dL RDW 15.3 (11.5-15.5) % Plt Count 459 H (150-450) k/uL MPV 7.1 Neutrophils % 84 % Lymphocytes % 10 % Monocytes % 5 % Eosinophils % 0 % Basophils % 0 % Neutrophils # 10.8 H (1.3-7.7) k/uL Lymphocytes # 1.2 (1.0-4.8) k/uL Monocytes # 0.6 (0-1.0) k/uL Eosinophils # 0.0 (0-0.7) k/uL Basophils # 0.1 (0-0.2) k/uL Hypochromasia Moderate Microcytosis Slight Sodium 132 L (137-145) mmol/L Potassium 4.4 (3.5-5.1) mmol/L Chloride 93 L (98-107) mmol/L Carbon Dioxide 28 (22-30) mmol/L Anion Gap 11 mmol/L BUN 11 (9-20) mg/dL Creatinine 0.68 (0.66-1.25) mg/dL Est GFR (CKD-EPI)AfAm >90 (>60 ml/min/1.73 sqM) Est GFR (CKD-EPI)NonAf >90 (>60 ml/min/1.73 sqM) Glucose 544 H* (74-99) mg/dL POC Glucose (mg/dL) (75-99) mg/dL POC Glu Shrub Grower ID Calcium 9.7 (8.4-10.2) mg/dL Total Bilirubin 0.6 (0.2-1.3) mg/dL AST 21 (17-59) U/L ALT 11 (4-49) U/L Alkaline Phosphatase 120 (38-126) U/L Troponin I (0.000-0.034) ng/mL Total Protein 8.4 H (6.3-8.2) g/dL Albumin 4.5 (3.5-5.0) g/dL Urine Color Light Yellow Urine Appearance Clear (Clear) Urine pH 6.5 (5.0-8.0) Ur Specific [place] 1.034 (1.001-1.035) Urine Protein Negative (Negative) Urine Glucose (UA) 4+ H (Negative) Urine Ketones 1+ H (Negative) Urine Blood Negative (Negative) Urine Nitrite Negative (Negative) Urine Bilirubin Negative (Negative) Urine Urobilinogen <2.0 (<2.0) mg/dL Ur Leukocyte Esterase Negative (Negative) Acetone, Qual (Negative) Coronavirus (PCR) (Not Detectd) 06/15/21 06/15/21 06/15/21 Range/Units 18:43 19:04 20:30 WBC (3.8-10.6) k/uL RBC (4.30-5.90) m/uL Hgb (13.0-17.5) gm/dL Hct (39.0-53.0) % MCV (80.0-100.0) fL MCH (25.0-35.0) pg MCHC (31.0-37.0) g/dL RDW (11.5-15.5) % Plt Count (150-450) k/uL MPV Neutrophils % % Lymphocytes % % Monocytes % % Eosinophils % % Basophils % % Neutrophils # (1.3-7.7) k/uL Lymphocytes # (1.0-4.8) k/uL Monocytes # (0-1.0) k/uL Eosinophils # (0-0.7) k/uL Basophils # (0-0.2) k/uL Hypochromasia Microcytosis Sodium (137-145) mmol/L Potassium (3.5-5.1) mmol/L Chloride (98-107) mmol/L Carbon Dioxide (22-30) mmol/L Anion Gap mmol/L BUN (9-20) mg/dL Creatinine (0.66-1.25) mg/dL Est GFR (CKD-EPI)AfAm (>60 ml/min/1.73 sqM) Est GFR (CKD-EPI)NonAf (>60 ml/min/1.73 sqM) Glucose (74-99) mg/dL POC Glucose (mg/dL) (75-99) mg/dL POC Glu Shrub Grower ID Calcium (8.4-10.2) mg/dL Total Bilirubin (0.2-1.3) mg/dL AST (17-59) U/L ALT (4-49) U/L Alkaline Phosphatase (38-126) U/L Troponin I <0.012 (0.000-0.034) ng/mL Total Protein (6.3-8.2) g/dL Albumin (3.5-5.0) g/dL Urine Color Urine Appearance (Clear) Urine pH (5.0-8.0) Ur Specific [place] (1.001-1.035) Urine Protein (Negative) Urine Glucose (UA) (Negative) Urine Ketones (Negative) Urine Blood (Negative) Urine Nitrite (Negative) Urine Bilirubin (Negative) Urine Urobilinogen (<2.0) mg/dL Ur Leukocyte Esterase (Negative) Acetone, Qual Negative (Negative) Coronavirus (PCR) Not Detected (Not Detectd) 06/15/21 Range/Units 22:30 WBC (3.8-10.6) k/uL RBC (4.30-5.90) m/uL Hgb (13.0-17.5) gm/dL Hct (39.0-53.0) % MCV (80.0-100.0) fL MCH (25.0-35.0) pg MCHC (31.0-37.0) g/dL RDW (11.5-15.5) % Plt Count (150-450) k/uL MPV Neutrophils % % Lymphocytes % % Monocytes % % Eosinophils % % Basophils % % Neutrophils # (1.3-7.7) k/uL Lymphocytes # (1.0-4.8) k/uL Monocytes # (0-1.0) k/uL Eosinophils # (0-0.7) k/uL Basophils # (0-0.2) k/uL Hypochromasia Microcytosis Sodium (137-145) mmol/L Potassium (3.5-5.1) mmol/L Chloride (98-107) mmol/L Carbon Dioxide (22-30) mmol/L Anion Gap mmol/L BUN (9-20) mg/dL Creatinine (0.66-1.25) mg/dL Est GFR (CKD-EPI)AfAm (>60 ml/min/1.73 sqM) Est GFR (CKD-EPI)NonAf (>60 ml/min/1.73 sqM) Glucose (74-99) mg/dL POC Glucose (mg/dL) 317 H (75-99) mg/dL POC Glu Shrub Grower ID Myranda Kim Calcium (8.4-10.2) mg/dL Total Bilirubin (0.2-1.3) mg/dL AST (17-59) U/L ALT (4-49) U/L Alkaline Phosphatase (38-126) U/L Troponin I (0.000-0.034) ng/mL Total Protein (6.3-8.2) g/dL Albumin (3.5-5.0) g/dL Urine Color Urine Appearance (Clear) Urine pH (5.0-8.0) Ur Specific [place] (1.001-1.035) Urine Protein (Negative) Urine Glucose (UA) (Negative) Urine Ketones (Negative) Urine Blood (Negative) Urine Nitrite (Negative) Urine Bilirubin (Negative) Urine Urobilinogen (<2.0) mg/dL Ur Leukocyte Esterase (Negative) Acetone, Qual (Negative) Coronavirus (PCR) (Not Detectd) - EKG Data EKG shows normal: sinus rhythm Rate: normal EKG Comments: EKG obtained at 1755 shows sinus rhythm with occasional PVCs. Ventricular rate 86, PA interval 139, Caodaism 82, QT/QTC 3:30/374. Interpretation borderline ECG. Disposition Clinical Impression: Intractable nausea and vomiting, Diarrhea, Hyperglycemia, Diabetic ulcer of right foot Disposition: ADMITTED IP TO THIS [facility] Condition: Serious Decision Date: 06/15/21 Decision Time: 23:29
--- NOTE | 2021-06-15 19:06 | XR ---
EXAMINATION TYPE: XR chest 2V DATE OF EXAM: 06/15/2021 COMPARISON: 04/20/2021 HISTORY: Weakness. Short of breath. TECHNIQUE: FINDINGS: Heart and mediastinum are normal. Lungs are clear. Diaphragm is normal. Bony thorax appears normal. IMPRESSION: Normal chest. No change.
[2021-06-15 19:21] LABS: Appearance,Urine Clear (Clear); Basophils # (A) 0.1 k/uL (0-0.2); Basophils % (A) 0 %; Bilirubin,Urine Negative (Negative); Blood,Urine Negative (Negative); Color,Urine Light Yellow; Eosinophils % (A) 0 %; Glucose,Urine (UA) 4+ (Negative); HCT 41.4 % (39.0-53.0); HGB 12.2 gm/dL (13.0-17.5); Hypochromasia Moderate; Ketones,Urine 1+ (Negative); Leukocyte Esterase,Urine Negative (Negative); Lymphocytes # (A) 1.2 k/uL (1.0-4.8); Lymphocytes % (A) 10 %; MCH 22.6 pg (25.0-35.0); MCHC 29.5 g/dL (31.0-37.0); MCV 76.4 fL (80.0-100.0); Mean Platelet Volume 7.1; Microcytosis Slight; Monocytes # (A) 0.6 k/uL (0-1.0); Monocytes % (A) 5 %; Neutrophils # (A) 10.8 k/uL (1.3-7.7); Neutrophils % (A) 84 %; Nitrite,Urine Negative (Negative); PH, Urine 6.5 (5.0-8.0); Platelet Count 459 k/uL (150-450); Protein,Urine Negative (Negative); RBC 5.43 m/uL (4.30-5.90); RDW 15.3 % (11.5-15.5); Specific Gravity,Urine 1.034 (1.001-1.035); Urobilinogen,Urine <2.0 mg/dL (<2.0); WBC 12.8 k/uL (3.8-10.6)
[2021-06-15 19:32] LABS: ALT 11 U/L (4-49); AST 21 U/L (17-59); African American GFR (CKD) >90 (>60 ml/min/1.73 sqM); Albumin 4.5 g/dL (3.5-5.0); Alkaline Phosphatase 120 U/L (38-126); Anion Gap 11 mmol/L; Blood Urea Nitrogen 11 mg/dL (9-20); Calcium 9.7 mg/dL (8.4-10.2); Carbon Dioxide 28 mmol/L (22-30); Chloride 93 mmol/L (98-107); Non-African American GFR(CKD) >90 (>60 ml/min/1.73 sqM); Potassium 4.4 mmol/L (3.5-5.1); Sodium 132 mmol/L (137-145); Total Bilirubin 0.6 mg/dL (0.2-1.3); Total Protein 8.4 g/dL (6.3-8.2)
[2021-06-15 20:23] LABS: Glucose 544 mg/dL (74-99)
[2021-06-15 22:32] LABS: Glucose,Whole Blood 317 mg/dL (75-99)
[2021-06-15] MEDS ORDERED: KETOROLAC 15 MG/ML 1 ML VIAL IVP PRN (23:30)
[2021-06-15] MEDS ORDERED: NALOXONE 0.4 MG/ML 1 ML VIAL IV PRN (23:30)
[2021-06-15] MEDS ORDERED: ONDANSETRON 4 MG/2 ML VIAL IVP PRN (23:30)
[2021-06-15] MEDS ORDERED: PROCHLORPERAZINE INJ 10 MG/2 ML VIAL IVP PRN (23:32)
[2021-06-16] MEDS ORDERED: INSULIN REGULAR 100 UNIT/ML VIAL (IM/SQ) SQ STA (00:26)
[2021-06-16] MEDS: SODIUM CHLORIDE 0.9% 1,000 ML IV SCH ×4 (01:22→21:53)
[2021-06-16 01:29] LABS: Glucose,Whole Blood 279 mg/dL (75-99)
[2021-06-16 06:22] LABS: Basophils % (A) 1 %; Eosinophils # (A) 0.1 k/uL (0-0.7); Eosinophils % (A) 1 %; Hypochromasia Marked; Lymphocytes # (A) 1.5 k/uL (1.0-4.8); Lymphocytes % (A) 18 %; MCH 23.3 pg (25.0-35.0); MCHC 30.8 g/dL (31.0-37.0); MCV 75.7 fL (80.0-100.0); Microcytosis Slight; Monocytes # (A) 0.4 k/uL (0-1.0); Monocytes % (A) 4 %; Neutrophils # (A) 6.4 k/uL (1.3-7.7); Neutrophils % (A) 75 %; Platelet Count 445 k/uL (150-450); RBC 4.23 m/uL (4.30-5.90); RDW 15.5 % (11.5-15.5); WBC 8.5 k/uL (3.8-10.6)
[2021-06-16 06:24] LABS: African American GFR (CKD) >90 (>60 ml/min/1.73 sqM); Anion Gap 3 mmol/L; Blood Urea Nitrogen 7 mg/dL (9-20); Calcium 8.3 mg/dL (8.4-10.2); Carbon Dioxide 31 mmol/L (22-30); Chloride 107 mmol/L (98-107); Glucose 92 mg/dL (74-99); Non-African American GFR(CKD) >90 (>60 ml/min/1.73 sqM); Potassium 3.4 mmol/L (3.5-5.1); Sodium 141 mmol/L (137-145)
[2021-06-16 06:34] LABS: HGB 9.9 gm/dL (13.0-17.5)
[2021-06-16 07:11] LABS: Glucose,Whole Blood 145 mg/dL (75-99)
[2021-06-16] MEDS: PHENYTOIN SODIUM EXTENDED 100 MG CAP PO SCH ×2 (09:16→21:52)
[2021-06-16] MEDS: PIOGLITAZONE 15 MG TAB PO SCH (09:16)
[2021-06-16] MEDS: MUPIROCIN 2% OINT 22 GM TUBE TOPICAL SCH (09:16)
[2021-06-16] MEDS: PANTOPRAZOLE 40 MG TABLET PO SCH (09:16)
[2021-06-16] MEDS: INSULIN DETEMIR (LEVEMIR) 100 UNIT/ML SYR SQ SCH (09:16)
[2021-06-16] MEDS ORDERED: ACETAMINOPHEN TAB 325 MG TAB PO PRN (10:03)
[2021-06-16] MEDS ORDERED: traMADol 50 MG TAB PO PRN (10:03)
[2021-06-16] MEDS ORDERED: DIPHENOX-ATROP 2.5-0.025 MG 1 EACH TAB PO PRN (10:03)
[2021-06-16] MEDS ORDERED: Potassium Replacement Protocol 1 EACH MISC MISCELLANE PRN (10:07)
--- NOTE | 2021-06-16 10:11 | P.HPIM ---
History of Present Illness H&P Date: 06/16/21 Chief Complaint: Nausea vomiting This is a 61-year-old male patient well-known to my services who presents here with concerns of nausea and vomiting. Patient reports that nausea vomiting Going on since 5:00 in the morning. Patient has extensive medical history including type 1 diabetes, chronic wounds to bilateral feet, GERD, hyperlipidemia, osteoarthritis and seizure disorder. Parietal patient was found to be hypoglycemic sugar of 544 and 4+ glucose in his urine sodium also but 132. Patient received insulin and IV fluid in the ER and was admitted for further management. Patient reports that he has been taking his insulin as prescribed. Patient denies any other recent illness. X-ray was completed showing change. COVID-19 was negative. Upon exam patient reports that he feels slightly improved. Potassium 3.4 continue IV fluid and potassium replacement. Sliding scale coverage added. Most recent blood sugar 145. Current vitals temp 97.9, heart rate 82, respiratory rate 17 blood pressure 146/75 and satting 99% on room air. Will consult wound care and infectious disease services for chronic wounds to bilateral feet. At this time patient denies chest pain or shortness breath. Patient denies nausea vomiting or diarrhea. Patient denies any urinary burning or frequency. Review of Systems Please refer to HPI otherwise unremarkable Past Medical History Past Medical History: Diabetes Mellitus, Diabetes Mellitus, GERD/Reflux, Hyperlipidemia, Osteoarthritis (OA), Seizure Disorder Additional Past Medical History / Comment(s): IDDM type 1 per pt, bilateral feet neuropathy, pt states current wounds to bilateral feet/goes to [facility]/seen by Dr. Major (consultant intern), past L lower extremity cellulitis with sepsis, L wrist cancerous tumor removed, past seizure about a year ago, arthritis L knee, vertigo, occasional diarrhea. History of Any Multi-Drug Resistant Organisms: MRSA Date of last positivie culture/infection: 12/29/19 MDRO Source:: Left Leg Past Surgical History: Orthopedic Surgery, Tonsillectomy Additional Past Surgical History / Comment(s): 01/23/20 angiogram L leg, 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, colonoscopy, L eye surgery for strabismus. Past Anesthesia/Blood Transfusion Reactions: No Reported Reaction Past Psychological History: Depression Smoking Status: Never smoker Past Alcohol Use History: None Reported Past Drug Use History: None Reported - Past Family History Father Family Medical History: Myocardial Infarction (NM) Additional Family Medical History / Comment(s): Father of a NM at the age of 57yrs. Mother Family Medical History: Cancer Additional Family Medical History / Comment(s): Mother from cancer at the age of 61 or 62 . Pt cannot recall type of cancer. Sister(s) Family Medical History: Diabetes Mellitus Additional Family Medical History / Comment(s): Sister had DM type 1. She is . Medications and Allergies Home Medications Medication Instructions Recorded Confirmed Type Omeprazole 20 mg PO DAILY 06/13/17 06/15/21 History Pioglitazone HCl [Actos] 15 mg PO DAILY 10/03/18 06/15/21 History Diphenox-Atrop 2.5-0.025 mg 1 tab PO BID PRN 11/17/19 06/15/21 History [Lomotil] Insulin Glargine [Lantus Vial] 50 unit SQ DAILY 05/15/20 06/15/21 History Rosuvastatin [Crestor] 10 mg PO HS 05/15/20 06/15/21 History traMADol HCL 50 mg PO Q6H PRN 3 Days #12 tab 02/22/21 06/15/21 Rx Phenytoin Sodium Extended 200 mg PO BID 05/10/21 06/15/21 History [Dilantin] Acetaminophen Tab [Tylenol] 650 mg PO Q6HR PRN tab 05/14/21 06/15/21 Rx Ondansetron Odt [Zofran Odt] 4 mg PO Q8HR PRN #10 tab 05/30/21 06/15/21 Rx HYDROcodone/APAP 10-325MG [[place] 1 tab PO TID PRN 06/15/21 06/15/21 History 10-325] INSULIN ASPART (NovoLOG) [NovoLOG See Protocol SQ TID-W/MEALS 06/15/21 06/15/21 History (formulary)] Latanoprost/Pf [Latanoprost 0.005% 1 drop BOTH EYES HS 06/15/21 06/15/21 History Eye Drop] Mupirocin 2% Oint [Bactroban 2% 1 applic TOPICAL DAILY 06/15/21 06/15/21 History Oint] Triamcinolone 0.5% Cream [Kenalog 1 applic TOPICAL BID 06/15/21 06/15/21 History 0.5% Cream] Allergies Allergy/AdvReac Type Severity Reaction Status Date / Time No Known Allergies Allergy Verified 06/15/21 20:58 Physical Exam Vitals: Vital Signs Temp Pulse Pulse Resp BP BP Pulse Ox 06/16/21 08:00 97.9 F 82 17 146/75 99 06/16/21 04:16 73 15 06/16/21 02:44 98.0 F 73 15 130/67 98 06/15/21 21:13 80 17 150/87 97 06/15/21 16:32 97.8 F 113 H 20 114/73 100 Intake and Output 06/15/21 06/16/21 06/16/21 22:59 06:59 14:59 Other: Voiding Method Urinal # Voids 1 Weight 48.081 kg 48.081 kg Head normocephalic Neck supple Lungs clear to auscultation bilaterally no wheezing or crackles Heart regular rate and rhythm S1-S2, no rub or gallop Abdomen is soft nontender nondistended positive bowel sounds no hepatosplenomegaly Extremities no edema. Right plantar side foot times size ulcer. Left heel ulcer Neuro alert and orientated to 3 Results CBC & Chem 7: 06/16/21 05:10 06/16/21 05:10 Labs: Abnormal Lab Results - Last 24 Hours (Table) 06/15/21 06/15/21 06/15/21 Range/Units 18:43 18:43 18:43 WBC 12.8 H (3.8-10.6) k/uL RBC (4.30-5.90) m/uL Hgb 12.2 L (13.0-17.5) gm/dL Hct (39.0-53.0) % MCV 76.4 L (80.0-100.0) fL MCH 22.6 L (25.0-35.0) pg MCHC 29.5 L (31.0-37.0) g/dL Plt Count 459 H (150-450) k/uL Neutrophils # 10.8 H (1.3-7.7) k/uL Sodium 132 L (137-145) mmol/L Potassium (3.5-5.1) mmol/L Chloride 93 L (98-107) mmol/L Carbon Dioxide (22-30) mmol/L BUN (9-20) mg/dL Creatinine (0.66-1.25) mg/dL Glucose 544 H* (74-99) mg/dL POC Glucose (mg/dL) (75-99) mg/dL Calcium (8.4-10.2) mg/dL Total Protein 8.4 H (6.3-8.2) g/dL Urine Glucose (UA) 4+ H (Negative) Urine Ketones 1+ H (Negative) 06/15/21 06/16/21 06/16/21 Range/Units 22:30 01:20 05:10 WBC (3.8-10.6) k/uL RBC 4.23 L (4.30-5.90) m/uL Hgb 9.9 L D (13.0-17.5) gm/dL Hct 32.0 L (39.0-53.0) % MCV 75.7 L (80.0-100.0) fL MCH 23.3 L (25.0-35.0) pg MCHC 30.8 L (31.0-37.0) g/dL Plt Count (150-450) k/uL Neutrophils # (1.3-7.7) k/uL Sodium (137-145) mmol/L Potassium (3.5-5.1) mmol/L Chloride (98-107) mmol/L Carbon Dioxide (22-30) mmol/L BUN (9-20) mg/dL Creatinine (0.66-1.25) mg/dL Glucose (74-99) mg/dL POC Glucose (mg/dL) 317 H 279 H (75-99) mg/dL Calcium (8.4-10.2) mg/dL Total Protein (6.3-8.2) g/dL Urine Glucose (UA) (Negative) Urine Ketones (Negative) 06/16/21 06/16/21 Range/Units 05:10 07:10 WBC (3.8-10.6) k/uL RBC (4.30-5.90) m/uL Hgb (13.0-17.5) gm/dL Hct (39.0-53.0) % MCV (80.0-100.0) fL MCH (25.0-35.0) pg MCHC (31.0-37.0) g/dL Plt Count (150-450) k/uL Neutrophils # (1.3-7.7) k/uL Sodium (137-145) mmol/L Potassium 3.4 L (3.5-5.1) mmol/L Chloride (98-107) mmol/L Carbon Dioxide 31 H (22-30) mmol/L BUN 7 L (9-20) mg/dL Creatinine 0.63 L (0.66-1.25) mg/dL Glucose (74-99) mg/dL POC Glucose (mg/dL) 145 H (75-99) mg/dL Calcium 8.3 L (8.4-10.2) mg/dL Total Protein (6.3-8.2) g/dL Urine Glucose (UA) (Negative) Urine Ketones (Negative) Thrombosis Risk Factor Assmnt - Choose All That Apply Each Risk Factor Represents 2 Points: Age 61-74 years Other congenital or acquired thrombophilia - If yes, enter type in comment: No Thrombosis Risk Factor Assessment Total Risk Factor Score: 2 Thrombosis Risk Factor Assessment Level: Low Risk Assessment and Plan Assessment: 1. Nausea and vomiting secondary to hyperglycemia 2. Bilateral lower extremity wounds chronic. Patient follows with wound care and infectious disease services 3. Diabetes mellitus type 1 insulin-dependent. Patient reports he has been taking his insulin as prescribed no issues with medication or supplies 4. Hyponatremia upon presentation this has resolved 5. Hypokalemia replacement ordered per protocol 6. History of seizure disorder 7. History of hyperlipidemia 8. History of GERD DVT prophylaxis Lovenox. GI prophylaxis Protonix Infectious disease Wound Care consulted for chronic wounds Continue with IV fluid Repeat labs ordered Time with Patient: Greater than 30 (Greater than 60% of the total time spent in counseling and coordination of care)
[2021-06-16 11:53] LABS: Amylase 71 U/L (30-110); Lipase 99 U/L (23-300)
[2021-06-16] MEDS: INSULIN ASPART (NovoLOG) 100 UNIT/ML VIAL SQ SCH ×3 (12:59→21:53)
[2021-06-16] MEDS: POTASSIUM CHLORIDE ER 20 MEQ TAB.ER PO SCH (13:00)
[2021-06-16 16:58] LABS: Glucose,Whole Blood 171 mg/dL (75-99)
[2021-06-16 20:21] LABS: Glucose,Whole Blood 168 mg/dL (75-99)
[2021-06-16] MEDS: LATANOPROST 0.005% OPHTH DROPS 2.5 ML BTL BOTH EYES SCH (21:52)
[2021-06-16] MEDS: ATORVASTATIN 20 MG TAB PO SCH (21:52)
[2021-06-16 23:51] LABS: Glucose,Whole Blood 67 mg/dL (75-99)
--- NOTE | 2021-06-17 00:01 | P.CONS ---
History of Present Illness - Reason for Consult Consult date: 06/16/21 Lower extremity wounds Requesting physician: Helen Chen - Chief Complaint Nausea and vomiting x one day - History of Present Illness Patient is a 61-year male with a past medical history significant for diabetes mellitus in this patient hoarded have a history of chronic nonhealing wound on the plantar aspect of the right foot and now also have a wound to the l eft big toe after removal of his left big toenail patient will follow with Dr. Guerrier at [facility] [place] patient presenting to the [facility] ER yesterday afternoon for evaluation of nausea and vomiting that started the day of presentation to the hospital patient mention he has vomited 4-5 times did have some diarrhea however the patient denies any abdominal pain no fever no chills denies any chest pain no shortness of breath or cough patient on presentation the hospital was afebrile patient did have normal white count urine was negative serum acetone was negative Covid testing was negative patient did have a chest x-ray normal chest no change, infectious disease was consulted because of his chronic wounds, patient currently denies having any pain to the right foot plantar on the left big toe wound he is not sure about the type of dressing has been used improved foul-smelling drainage Review of Systems Positive point has been mentioned in the HPI rest of the systems are negative Past Medical History Past Medical History: Diabetes Mellitus, Diabetes Mellitus, GERD/Reflux, Hyperlipidemia, Osteoarthritis (OA), Seizure Disorder Additional Past Medical History / Comment(s): IDDM type 1 per pt, bilateral feet neuropathy, pt states current wounds to bilateral feet/goes to [facility]/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 History of Any Multi-Drug Resistant Organisms: MRSA Year Discovered:: 12/29/19 MDRO Source:: Left Leg Past Surgical History: Orthopedic Surgery, Tonsillectomy Additional Past Surgical History / Comment(s): 01/23/20 angiogram L leg, 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, colonoscopy, L eye surgery for strabismus. Past Anesthesia/Blood Transfusion Reactions: No Reported Reaction Past Psychological History: Depression Smoking Status: Never smoker Past Alcohol Use History: None Reported Past Drug Use History: None Reported - Past Family History Father Family Medical History: Myocardial Infarction (NC) Additional Family Medical History / Comment(s): Father of a NC at the age of 57yrs. Mother Family Medical History: Cancer Additional Family Medical History / Comment(s): Mother from cancer at the age of 61 or 62 . Pt cannot recall type of cancer. Sister(s) Family Medical History: Diabetes Mellitus Additional Family Medical History / Comment(s): Sister had DM type 1. She is . Medications and Allergies Home Medications Medication Instructions Recorded Confirmed Type Omeprazole 20 mg PO DAILY 06/13/17 06/15/21 History Pioglitazone HCl [Actos] 15 mg PO DAILY 10/03/18 06/15/21 History Diphenox-Atrop 2.5-0.025 mg 1 tab PO BID PRN 11/17/19 06/15/21 History [Lomotil] Insulin Glargine [Lantus Vial] 50 unit SQ DAILY 05/15/20 06/15/21 History Rosuvastatin [Crestor] 10 mg PO HS 05/15/20 06/15/21 History traMADol HCL 50 mg PO Q6H PRN 3 Days #12 tab 02/22/21 06/15/21 Rx Phenytoin Sodium Extended 200 mg PO BID 05/10/21 06/15/21 History [Dilantin] Acetaminophen Tab [Tylenol] 650 mg PO Q6HR PRN tab 05/14/21 06/15/21 Rx Ondansetron Odt [Zofran Odt] 4 mg PO Q8HR PRN #10 tab 05/30/21 06/15/21 Rx HYDROcodone/APAP 10-325MG [[place] 1 tab PO TID PRN 06/15/21 06/15/21 History 10-325] INSULIN ASPART (NovoLOG) [NovoLOG See Protocol SQ TID-W/MEALS 06/15/21 06/15/21 History (formulary)] Latanoprost/Pf [Latanoprost 0.005% 1 drop BOTH EYES HS 06/15/21 06/15/21 History Eye Drop] Mupirocin 2% Oint [Bactroban 2% 1 applic TOPICAL DAILY 06/15/21 06/15/21 History Oint] Triamcinolone 0.5% Cream [Kenalog 1 applic TOPICAL BID 06/15/21 06/15/21 History 0.5% Cream] Allergies Allergy/AdvReac Type Severity Reaction Status Date / Time No Known Allergies Allergy Verified 06/15/21 20:58 Physical Exam Vitals: Vital Signs Temp Pulse Pulse Resp BP BP Pulse Ox 06/16/21 08:00 97.9 F 82 17 146/75 99 06/16/21 04:16 73 15 06/16/21 02:44 98.0 F 73 15 130/67 98 06/15/21 21:13 80 17 150/87 97 06/15/21 16:32 97.8 F 113 H 20 114/73 100 Intake and Output 06/15/21 06/16/21 06/16/21 22:59 06:59 14:59 Other: Voiding Method Urinal Toilet # Voids 1 Weight 48.081 kg 48.081 kg GENERAL DESCRIPTION: Middle-aged male lying in bed, no distress. No tachypnea or accessory muscle of respiration use. HEENT: Shows Pallor , no scleral icterus. Oral mucous membrane is dry. No pharyngeal erythema or thrush NECK: Trachea central, no thyromegaly. LUNGS: Unlabored breathing. Clear to auscultation anteriorly. No wheeze or crackle. HEART: S1, S2, regular rate and rhythm. No loud murmur ABDOMEN: Soft, no tenderness , guarding or rigidity, no organomegaly EXTREMITIES: Right foot plantar wound base looks clean with no slough. No surrounding redness, left big toe wound to the nail bed with no slough tissue no redness. SKIN: No rash, no masses palpable. NEUROLOGICAL: The patient is awake, alert, oriented x3, mood and affect normal. Results CBC & Chem 7: 06/16/21 05:10 06/16/21 05:10 Labs: Abnormal Lab Results - Last 24 Hours (Table) 06/15/21 06/15/21 06/15/21 Range/Units 18:43 18:43 18:43 WBC 12.8 H (3.8-10.6) k/uL RBC (4.30-5.90) m/uL Hgb 12.2 L (13.0-17.5) gm/dL Hct (39.0-53.0) % MCV 76.4 L (80.0-100.0) fL MCH 22.6 L (25.0-35.0) pg MCHC 29.5 L (31.0-37.0) g/dL Plt Count 459 H (150-450) k/uL Neutrophils # 10.8 H (1.3-7.7) k/uL Sodium 132 L (137-145) mmol/L Potassium (3.5-5.1) mmol/L Chloride 93 L (98-107) mmol/L Carbon Dioxide (22-30) mmol/L BUN (9-20) mg/dL Creatinine (0.66-1.25) mg/dL Glucose 544 H* (74-99) mg/dL POC Glucose (mg/dL) (75-99) mg/dL Calcium (8.4-10.2) mg/dL Total Protein 8.4 H (6.3-8.2) g/dL Urine Glucose (UA) 4+ H (Negative) Urine Ketones 1+ H (Negative) 06/15/21 06/16/21 06/16/21 Range/Units 22:30 01:20 05:10 WBC (3.8-10.6) k/uL RBC 4.23 L (4.30-5.90) m/uL Hgb 9.9 L D (13.0-17.5) gm/dL Hct 32.0 L (39.0-53.0) % MCV 75.7 L (80.0-100.0) fL MCH 23.3 L (25.0-35.0) pg MCHC 30.8 L (31.0-37.0) g/dL Plt Count (150-450) k/uL Neutrophils # (1.3-7.7) k/uL Sodium (137-145) mmol/L Potassium (3.5-5.1) mmol/L Chloride (98-107) mmol/L Carbon Dioxide (22-30) mmol/L BUN (9-20) mg/dL Creatinine (0.66-1.25) mg/dL Glucose (74-99) mg/dL POC Glucose (mg/dL) 317 H 279 H (75-99) mg/dL Calcium (8.4-10.2) mg/dL Total Protein (6.3-8.2) g/dL Urine Glucose (UA) (Negative) Urine Ketones (Negative) 06/16/21 06/16/21 Range/Units 05:10 07:10 WBC (3.8-10.6) k/uL RBC (4.30-5.90) m/uL Hgb (13.0-17.5) gm/dL Hct (39.0-53.0) % MCV (80.0-100.0) fL MCH (25.0-35.0) pg MCHC (31.0-37.0) g/dL Plt Count (150-450) k/uL Neutrophils # (1.3-7.7) k/uL Sodium (137-145) mmol/L Potassium 3.4 L (3.5-5.1) mmol/L Chloride (98-107) mmol/L Carbon Dioxide 31 H (22-30) mmol/L BUN 7 L (9-20) mg/dL Creatinine 0.63 L (0.66-1.25) mg/dL Glucose (74-99) mg/dL POC Glucose (mg/dL) 145 H (75-99) mg/dL Calcium 8.3 L (8.4-10.2) mg/dL Total Protein (6.3-8.2) g/dL Urine Glucose (UA) (Negative) Urine Ketones (Negative) Assessment and Plan (1) Diabetic ulcer of right foot Current Visit: Yes Status: Acute Code(s): E11.621 - TYPE 2 DIABETES MELLITUS WITH FOOT ULCER; L97.519 - NON-PRS CHRONIC ULCER OTH PRT RIGHT FOOT W UNSP SEVERITY SNOMED Code(s): 966855194 Plan: 1patient with right foot plantar wound with no evidence of any soft tissue or secondary cellulitis recommend local wound care with Aquacel silver dressing to be changed every 48 hour. 2left big toe wound at the nail bed after removal of the nail bed with no cellulitis local wound care with dry Aquacel silver dressing change every 48 hour. 3no evidence of any bacterial infection has recommended no antibiotics. We will follow on clinical condition and cultures to further adjust medication if needed Thank you for this consultation will follow this patient along with you Time with Patient: Greater than 30
[2021-06-17 00:13] LABS: Glucose,Whole Blood 77 mg/dL (75-99)
[2021-06-17 00:37] LABS: Glucose,Whole Blood 151 mg/dL (75-99)
[2021-06-17 03:28] LABS: Glucose,Whole Blood 152 mg/dL (75-99)
[2021-06-17] MEDS: SODIUM CHLORIDE 0.9% 1,000 ML IV SCH ×3 (06:09→21:16)
[2021-06-17 06:57] LABS: Glucose,Whole Blood 166 mg/dL (75-99)
--- NOTE | 2021-06-17 08:13 | US ---
EXAMINATION TYPE: US abdomen complete DATE OF EXAM: 06/17/2021 COMPARISON: NONE CLINICAL HISTORY: n/v. patient did not elaborate history other then stomach hurts, no surgical histor y EXAM MEASUREMENTS: Liver Length: 16.2 cm Gallbladder Wall: 0.2 cm CBD: 0.7 cm Spleen: 9.7 cm Right Kidney: 10.9 x 4.9 x 5.0 cm Left Kidney: 10.3 x 3.5 x 5.5 cm very thin patient with overlying bowel gas does limit some images Pancreas: Obscured by bowel gas Liver: intercostal imaging due to bowel gas, appears wnl Gallbladder: wnl Evidence for sonographic Sánchez's sign: no CBD: wnl Spleen: wnl Right Kidney: wnl Left Kidney: wnl Upper IVC: wnl Abd Aorta: wnl IMPRESSION: 1. Common bile duct measures 7 mm and is slightly dilated. Correlate clinically for distal CBD stone and pathology.. 2. Limited assessment of the pancreas.
[2021-06-17] MEDS: INSULIN DETEMIR (LEVEMIR) 100 UNIT/ML SYR SQ SCH (08:20)
[2021-06-17] MEDS: INSULIN ASPART (NovoLOG) 100 UNIT/ML VIAL SQ SCH ×4 (08:20→21:17)
[2021-06-17] MEDS: PANTOPRAZOLE 40 MG TABLET PO SCH (08:21)
[2021-06-17] MEDS: PHENYTOIN SODIUM EXTENDED 100 MG CAP PO SCH ×2 (08:22→21:16)
[2021-06-17] MEDS: MUPIROCIN 2% OINT 22 GM TUBE TOPICAL SCH (08:22)
[2021-06-17] MEDS: PIOGLITAZONE 15 MG TAB PO SCH (08:22)
[2021-06-17] MEDS: ENOXAPARIN 40 MG/0.4 ML SYRINGE SQ SCH (08:23)
[2021-06-17 09:03] LABS: Basophils # (A) 0.04 X 10*3/uL (0.00-0.10); Basophils % (A) 0.4 %; Eosinophils # (A) 0.08 X 10*3/uL (0.04-0.35); Eosinophils % (A) 0.7 %; HCT 34.1 % (39.6-50.0); Immature Grans, Automated 0.4 %; Lymphocytes # (A) 2.27 X 10*3/uL (0.90-5.00); Lymphocytes % (A) 21.2 %; MCH 22.1 pg (27.0-32.0); MCHC 29.3 g/dL (32.0-37.0); MCV 75.3 fL (80.0-97.0); Mean Platelet Volume 9.4 fL (9.5-12.2); Monocytes # (A) 0.78 X 10*3/uL (0.20-1.00); Monocytes % (A) 7.3 %; NRBC Per 100 WBC 0 /100 WBCS (0.0-0.0); Platelet Count 440 X 10*3/uL (140-440); RBC 4.53 X 10*6/uL (4.40-5.60); RDW 15.7 % (11.5-14.5); WBC 10.71 X 10*3/uL (4.50-10.00)
--- NOTE | 2021-06-17 09:28 | P.CONS ---
History of Present Illness - Reason for Consult Consult date: 06/17/21 wound care - History of Present Illness This is a 60-year-old patient being seen on observation unit for a nonhealing ulceration to the left posterior lower extremity and to the right plantar foot. Patient follows with Dr. Guerrier in the wound care center. Original cause of wound was Not Known. The date acquired was: 11/12/2020. The wound has been in treatment 25 weeks. The wound is currently classified as a Grade 2 wound with etiology of Diabetic Wound/Ulcer of the Lower Extremity and is located on the Left Achilles. The wound measures 4.3cm length x 1cm width x 0.4cm depth; 3.377cm^2 area and 1.351cm^3 volume. There is no tunneling or undermining noted. There is a medium amount of serous drainage noted. The wound margin is well defined and not attached to the wound base. There is medium (34-66%) pink granulation within the wound bed. There is a medium (34-66%) amount of necrotic tissue within the wound bed including Adherent Slough. The periwound skin appearance exhibited: Callus, Scarring. The periwound skin appearance did not exhibit: Crepitus, Excoriation, Induration, Rash, Dry/Scaly, Maceration, Atro phie Sera, Cyanosis, Ecchymosis, Hemosiderin Staining, Mottled, Pallor, Rubor, Erythema. Periwound temperature was noted as No Abnormality. Original cause of wound was Not Known. The date acquired was: 02/25/2021. The wound has been in treatment 14 weeks. The wound is currently classified as a Grade 2 wound with etiology of Diabetic Wound/Ulcer of the Lower Extremity and is located on the Right,Proximal,Plantar Foot. The wound measures 2.9cm length x 2.7cm width x 0.1cm depth; 6.15cm^2 area and 0.615cm^3 volume. There is fascia exposed. There is no tunneling or undermining noted. There is a medium amount of serosanguineous drainage noted. Foul odor after cleansing was noted. The wound margin is distinct with the outline attached to the wound base. There is large (67-100%) red, pink granulation within the wound bed. There is a small (1-33%) amount of necrotic tissue within the wound bed including Adherent Slough. The periwound skin appearance exhibited: Callus, Scarring. The periwound skin appearance did not exhibit: Crepitus, Excoriation, Induration, Rash, Dry/Scaly, Maceration, Atrophie Sera, Cyanosis, Ecchymosis, Hemosiderin Staining, Mottled, Pallor, Rubor, Erythema. Review Of Systems: Constitutional: No fever, no chills, no night sweats. No weight change. No weakness, fatigue or lethargy. No daytime sleepiness. Integumentary:reports wounds, no lesions. No rash or pruritus. No unusual bruising. No change in hair or nails. Physical exam: General Appearance: Alert, cooperative, no distress, appears stated age. Skin: See HPI all other Skin color, texture, tugor normal, no rashes or lesions. Neurologic: Alert oriented x3 Assessment: 1. Diabetic foot ulcer 2. Non-pressure ulcer of left lower extremity with fat layer exposure 3. Nonpressure ulcer of right foot with fat layer Plan: 1. Apply santyl, saline moist gauze, dry gauze rolled gauze and secure with paper tape. Next wound appointment with Dr. Guerrier 06/24 @ 2:30. Thank you for the consultation any questions was contact the wound care center DNP note has been reviewed and discussed with Dr. Higgins and the impression and plan of care has been directed as dictated. 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 History of Any Multi-Drug Resistant Organisms: MRSA Year Discovered:: 12/29/19 MDRO Source:: Left Leg Past Surgical History: Orthopedic Surgery, Tonsillectomy Additional Past Surgical History / Comment(s): 01/23/20 angiogram L leg, 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, colonoscopy, L eye surgery for strabismus. Past Anesthesia/Blood Transfusion Reactions: No Reported Reaction Past Psychological History: Depression Smoking Status: Never smoker Past Alcohol Use History: None Reported Past Drug Use History: None Reported - Past Family History Father Family Medical History: Myocardial Infarction (ID) Additional Family Medical History / Comment(s): Father of a ID at the age of 57yrs. Mother Family Medical History: Cancer Additional Family Medical History / Comment(s): Mother from cancer at the age of 61 or 62 . Pt cannot recall type of cancer. Sister(s) Family Medical History: Diabetes Mellitus Additional Family Medical History / Comment(s): Sister had DM type 1. She is . Medications and Allergies Home Medications Medication Instructions Recorded Confirmed Type Omeprazole 20 mg PO DAILY 06/13/17 06/15/21 History Pioglitazone HCl [Actos] 15 mg PO DAILY 10/03/18 06/15/21 History Diphenox-Atrop 2.5-0.025 mg 1 tab PO BID PRN 11/17/19 06/15/21 History [Lomotil] Insulin Glargine [Lantus Vial] 50 unit SQ DAILY 05/15/20 06/15/21 History Rosuvastatin [Crestor] 10 mg PO HS 05/15/20 06/15/21 History traMADol HCL 50 mg PO Q6H PRN 3 Days #12 tab 02/22/21 06/15/21 Rx Phenytoin Sodium Extended 200 mg PO BID 05/10/21 06/15/21 History [Dilantin] Acetaminophen Tab [Tylenol] 650 mg PO Q6HR PRN tab 05/14/21 06/15/21 Rx Ondansetron Odt [Zofran Odt] 4 mg PO Q8HR PRN #10 tab 05/30/21 06/15/21 Rx HYDROcodone/APAP 10-325MG [[place] 1 tab PO TID PRN 06/15/21 06/15/21 History 10-325] INSULIN ASPART (NovoLOG) [NovoLOG See Protocol SQ TID-W/MEALS 06/15/21 06/15/21 History (formulary)] Latanoprost/Pf [Latanoprost 0.005% 1 drop BOTH EYES HS 06/15/21 06/15/21 History Eye Drop] Mupirocin 2% Oint [Bactroban 2% 1 applic TOPICAL DAILY 06/15/21 06/15/21 History Oint] Triamcinolone 0.5% Cream [Kenalog 1 applic TOPICAL BID 06/15/21 06/15/21 History 0.5% Cream] Allergies Allergy/AdvReac Type Severity Reaction Status Date / Time No Known Allergies Allergy Verified 06/15/21 20:58 Physical Exam Vitals: Vital Signs Temp Pulse Resp BP Pulse Ox 06/17/21 07:12 98.5 F 81 18 149/78 98 06/17/21 02:22 97.8 F 79 15 150/83 99 06/16/21 20:00 81 16 06/16/21 19:38 97.6 F 81 16 146/84 99 06/16/21 13:59 98.6 F 79 17 119/73 98 Intake and Output 06/16/21 06/17/21 06/17/21 22:59 06:59 14:59 Other: Voiding Method Toilet # Voids 5 3 # Bowel Movements 4 Results CBC & Chem 7: 06/17/21 03:50 06/16/21 05:10 Labs: Abnormal Lab Results - Last 24 Hours (Table) 06/16/21 06/16/21 06/16/21 Range/Units 16:57 20:19 23:49 WBC (4.50-10.00) X 10*3/uL Hgb (13.0-17.0) g/dL Hct (39.6-50.0) % MCV (80.0-97.0) fL MCH (27.0-32.0) pg MCHC (32.0-37.0) g/dL RDW (11.5-14.5) % MPV (9.5-12.2) fL POC Glucose (mg/dL) 171 H 168 H 67 L (75-99) mg/dL 06/17/21 06/17/21 06/17/21 Range/Units 00:36 03:24 03:50 WBC 10.71 H (4.50-10.00) X 10*3/uL Hgb 10.0 L (13.0-17.0) g/dL Hct 34.1 L (39.6-50.0) % MCV 75.3 L (80.0-97.0) fL MCH 22.1 L (27.0-32.0) pg MCHC 29.3 L (32.0-37.0) g/dL RDW 15.7 H (11.5-14.5) % MPV 9.4 L (9.5-12.2) fL POC Glucose (mg/dL) 151 H 152 H (75-99) mg/dL 06/17/21 Range/Units 06:55 WBC (4.50-10.00) X 10*3/uL Hgb (13.0-17.0) g/dL Hct (39.6-50.0) % MCV (80.0-97.0) fL MCH (27.0-32.0) pg MCHC (32.0-37.0) g/dL RDW (11.5-14.5) % MPV (9.5-12.2) fL POC Glucose (mg/dL) 166 H (75-99) mg/dL Assessment and Plan (1) Non-pressure ulcer of left lower extremity with fat layer exposed Current Visit: No Status: Acute Code(s): L97.922 - NON-PRS CHR ULC UNSP PRT OF L LOW LEG W FAT LAYER EXPOSED SNOMED Code(s): 59397448 (2) Non-pressure chronic ulcer of other part of right foot with fat layer exposed Current Visit: Yes Status: Acute Code(s): L97.512 - NON-PRS CHRONIC ULCER OTH PRT RIGHT FOOT W FAT LAYER EXPOSED SNOMED Code(s): 959636447 (3) Diabetic foot ulcer Current Visit: No Status: Acute Code(s): E11.621 - TYPE 2 DIABETES MELLITUS WITH FOOT ULCER; L97.509 - NON-PRESSURE CHRONIC ULCER OTH PRT UNSP FOOT W UNSP SEVERITY SNOMED Code(s): 576221262
[2021-06-17 09:38] LABS: ALT 10 U/L (10-49); AST 16 U/L (14-35); African American GFR (CKD) 111.7 (60.0-200.0); Albumin/Globulin Ratio 1.43 (1.60-3.17); Alkaline Phosphatase 91 U/L (41-126); BUN/Creat Ratio 7.75 Ratio (12.00-20.00); Blood Urea Nitrogen 6.2 mg/dL (9.0-27.0); Calcium 9.5 mg/dL (8.7-10.3); Carbon Dioxide 24.3 mmol/L (20.0-27.5); Chloride 100 mmol/L (96-109); Globulin 2.8 g/dL (1.6-3.3); Glucose 145 mg/dL (70-110); Non-African American GFR(CKD) 96.4 (60.0-200.0); Potassium 4.3 mmol/L (3.5-5.5); Sodium 138 mmol/L (135-145); Total Bilirubin <0.15 mg/dL (0.30-1.20); Total Protein 6.8 g/dL (6.2-8.2)
[2021-06-17 11:27] LABS: Glucose,Whole Blood 196 mg/dL (75-99)
[2021-06-17] MEDS: HYDROcodone/APAP 10-325MG 1 EACH TAB PO PRN (12:59)
[2021-06-17] MEDS: COLLAGENASE 250 UNIT/GM OINTMENT 30 GM TUBE TOPICAL SCH (13:34)
[2021-06-17 16:26] LABS: Glucose,Whole Blood 318 mg/dL (75-99)
[2021-06-17 20:44] LABS: Glucose,Whole Blood 264 mg/dL (75-99)
--- NOTE | 2021-06-17 21:15 | P.PN ---
Subjective Progress Note Date: 06/17/21 Principal diagnosis: Right foot and left big toe wound Patient is a 61-year-old male with a past medical history significant for diabetes mellitus history of chronic nonhealing wound on the plantar aspect of the right foot and the left big toe wound. Presenting to the hospital with nausea and vomiting. On today's evaluation that is 06/17/2021, the patient denies having any fever or chills, no further nausea vomiting, denies any abdominal pain and no diarrhea, the patient denies pain to the right foot and left big toe wound area Objective - Vital Signs Vital signs: Vital Signs Temp 98.5 F 06/17/21 07:12 Pulse 81 06/17/21 07:12 Resp 18 06/17/21 07:12 BP 149/78 06/17/21 07:12 Pulse Ox 98 06/17/21 07:12 Intake & Output 06/16/21 06/17/21 06/17/21 18:59 06:59 18:59 Other: Voiding Method Toilet Toilet # Voids 5 3 # Bowel Movements 4 - Exam GENERAL DESCRIPTION: Middle-age male lying in bed in no distress RESPIRATORY SYSTEM: Unlabored breathing , decreased breath sounds at bases HEART: S1 S2 regular rate and rhythm , ABDOMEN: Soft , no tenderness EXTREMITIES: Right foot and left big toe wounds are currently dressed no drainage on the dressing - Labs CBC & Chem 7: 06/17/21 03:50 06/17/21 03:50 Labs: Abnormal Lab Results - Last 24 Hours (Table) 06/16/21 06/16/21 06/16/21 Range/Units 16:57 20:19 23:49 WBC (4.50-10.00) X 10*3/uL Hgb (13.0-17.0) g/dL Hct (39.6-50.0) % MCV (80.0-97.0) fL MCH (27.0-32.0) pg MCHC (32.0-37.0) g/dL RDW (11.5-14.5) % MPV (9.5-12.2) fL BUN (9.0-27.0) mg/dL BUN/Creatinine Ratio (12.00-20.00) Ratio Glucose (70-110) mg/dL POC Glucose (mg/dL) 171 H 168 H 67 L (75-99) mg/dL Total Bilirubin (0.30-1.20) mg/dL Albumin/Globulin Ratio (1.60-3.17) g/dL 06/17/21 06/17/21 06/17/21 Range/Units 00:36 03:24 03:50 WBC 10.71 H (4.50-10.00) X 10*3/uL Hgb 10.0 L (13.0-17.0) g/dL Hct 34.1 L (39.6-50.0) % MCV 75.3 L (80.0-97.0) fL MCH 22.1 L (27.0-32.0) pg MCHC 29.3 L (32.0-37.0) g/dL RDW 15.7 H (11.5-14.5) % MPV 9.4 L (9.5-12.2) fL BUN (9.0-27.0) mg/dL BUN/Creatinine Ratio (12.00-20.00) Ratio Glucose (70-110) mg/dL POC Glucose (mg/dL) 151 H 152 H (75-99) mg/dL Total Bilirubin (0.30-1.20) mg/dL Albumin/Globulin Ratio (1.60-3.17) g/dL 06/17/21 06/17/21 06/17/21 Range/Units 03:50 06:55 11:24 WBC (4.50-10.00) X 10*3/uL Hgb (13.0-17.0) g/dL Hct (39.6-50.0) % MCV (80.0-97.0) fL MCH (27.0-32.0) pg MCHC (32.0-37.0) g/dL RDW (11.5-14.5) % MPV (9.5-12.2) fL BUN 6.2 L (9.0-27.0) mg/dL BUN/Creatinine Ratio 7.75 L (12.00-20.00) Ratio Glucose 145 H (70-110) mg/dL POC Glucose (mg/dL) 166 H 196 H (75-99) mg/dL Total Bilirubin <0.15 L (0.30-1.20) mg/dL Albumin/Globulin Ratio 1.43 L (1.60-3.17) g/dL Assessment and Plan (1) Diabetic ulcer of right foot Current Visit: Yes Status: Acute Code(s): E11.621 - TYPE 2 DIABETES MELLITUS WITH FOOT ULCER; L97.519 - NON-PRS CHRONIC ULCER OTH PRT RIGHT FOOT W UNSP SEVERITY SNOMED Code(s): 656531616 Plan: 1patient with right foot plantar wound with no evidence of any soft tissue or secondary cellulitis recommend local wound care with Aquacel silver dressing to be changed every 48 hour. 2left big toe wound at the nail bed after removal of the nail bed with no cellulitis local wound care with dry Aquacel silver dressing change every 48 hour. 3no evidence of any bacterial infection, there is no need for systemic antibiotic therapy Time with Patient: Less than 30
[2021-06-17] MEDS: ATORVASTATIN 20 MG TAB PO SCH (21:16)
[2021-06-17] MEDS: LATANOPROST 0.005% OPHTH DROPS 2.5 ML BTL BOTH EYES SCH (21:20)
[2021-06-18] MEDS: HYDROcodone/APAP 10-325MG 1 EACH TAB PO PRN (01:54)
[2021-06-18] MEDS: SODIUM CHLORIDE 0.9% 1,000 ML IV SCH (04:49)
[2021-06-18 06:54] LABS: Glucose,Whole Blood 298 mg/dL (75-99)
[2021-06-18 07:18] VITALS: RESP 18
[2021-06-18] MEDS: PIOGLITAZONE 15 MG TAB PO SCH (08:43)
[2021-06-18] MEDS: PANTOPRAZOLE 40 MG TABLET PO SCH (08:43)
[2021-06-18] MEDS: ENOXAPARIN 40 MG/0.4 ML SYRINGE SQ SCH (08:43)
[2021-06-18] MEDS: INSULIN DETEMIR (LEVEMIR) 100 UNIT/ML SYR SQ SCH (08:43)
[2021-06-18] MEDS: INSULIN ASPART (NovoLOG) 100 UNIT/ML VIAL SQ SCH ×2 (08:43→11:59)
[2021-06-18] MEDS: COLLAGENASE 250 UNIT/GM OINTMENT 30 GM TUBE TOPICAL SCH (08:44)
[2021-06-18] MEDS: MUPIROCIN 2% OINT 22 GM TUBE TOPICAL SCH (08:44)
[2021-06-18] MEDS: PHENYTOIN SODIUM EXTENDED 100 MG CAP PO SCH (08:44)
[2021-06-18 10:59] LABS: Basophils % (A) 1 %; Eosinophils # (A) 0.1 k/uL (0-0.7); Eosinophils % (A) 1 %; HCT 35.1 % (39.0-53.0); HGB 10.4 gm/dL (13.0-17.5); Hypochromasia Marked; Lymphocytes # (A) 1.5 k/uL (1.0-4.8); Lymphocytes % (A) 22 %; MCHC 29.6 g/dL (31.0-37.0); MCV 77.5 fL (80.0-100.0); Mean Platelet Volume 7.1; Microcytosis Slight; Monocytes # (A) 0.4 k/uL (0-1.0); Monocytes % (A) 6 %; Neutrophils # (A) 4.7 k/uL (1.3-7.7); Neutrophils % (A) 68 %; Platelet Count 427 k/uL (150-450); RBC 4.53 m/uL (4.30-5.90); RDW 15.6 % (11.5-15.5); WBC 6.8 k/uL (3.8-10.6)
[2021-06-18 11:06] LABS: ALT 11 U/L (4-49); AST 17 U/L (17-59); African American GFR (CKD) >90 (>60 ml/min/1.73 sqM); Albumin 3.2 g/dL (3.5-5.0); Albumin/Globulin Ratio 1.1; Alkaline Phosphatase 86 U/L (38-126); Anion Gap 4 mmol/L; Blood Urea Nitrogen 12 mg/dL (9-20); Calcium 8.4 mg/dL (8.4-10.2); Carbon Dioxide 30 mmol/L (22-30); Chloride 99 mmol/L (98-107); Glucose 347 mg/dL (74-99); Non-African American GFR(CKD) >90 (>60 ml/min/1.73 sqM); Potassium 4.8 mmol/L (3.5-5.1); Sodium 133 mmol/L (137-145); Total Bilirubin 0.2 mg/dL (0.2-1.3); Total Protein 6.2 g/dL (6.3-8.2)
[2021-06-18 11:18] LABS: Glucose,Whole Blood 277 mg/dL (75-99)
--- NOTE | 2021-06-18 13:33 | P.PN ---
Subjective Progress Note Date: 06/17/21 This is a 61-year-old male patient well-known to my services who presents here with concerns of nausea and vomiting. Patient reports that nausea vomiting Going on since 5:00 in the morning. Patient has extensive medical history including type 1 diabetes, chronic wounds to bilateral feet, GERD, hyperlip idemia, osteoarthritis and seizure disorder. Parietal patient was found to be hypoglycemic sugar of 544 and 4+ glucose in his urine sodium also but 132. Patient received insulin and IV fluid in the ER and was admitted for further management. Patient reports that he has been taking his insulin as prescribed. Patient denies any other recent illness. X-ray was completed showing change. COVID-19 was negative. Upon exam patient reports that he feels slightly improved. Potassium 3.4 continue IV fluid and potassium replacement. Sliding scale coverage added. Most recent blood sugar 145. Current vitals temp 97.9, heart rate 82, respiratory rate 17 blood pressure 146/75 and satting 99% on room air. Will consult wound care and infectious disease services for chronic wounds to bilateral feet. At this time patient denies chest pain or shortness breath. Patient denies nausea vomiting or diarrhea. Patient denies any urinary burning or frequency. On 06/17/2021 patient was seen and examined on the medical floor he is alert and oriented 3 in no apparent distress he is still having some nausea no vomiting or diarrhea today glucose level is much better controlled there is no fever or chills no headache or dizziness no chest pain no shortness of breath no cough no abdominal pain no blood in the stools no burning with urination no frequency or urgency and no hematuria Objective - Vital Signs Vital signs: Vital Signs Temp 98.5 F 06/17/21 07:12 Pulse 81 06/17/21 07:12 Resp 18 06/17/21 07:12 BP 149/78 06/17/21 07:12 Pulse Ox 98 06/17/21 07:12 Intake & Output 06/16/21 06/17/21 06/17/21 18:59 06:59 18:59 Other: Voiding Method Toilet Toilet # Voids 5 3 # Bowel Movements 4 - Exam Head normocephalic Neck supple Lungs clear to auscultation bilaterally no wheezing or crackles Heart regular rate and rhythm S1-S2, no rub or gallop Abdomen is soft nontender nondistended positive bowel sounds no hepatosplenomegaly Extremities no edema. Right plantar side foot times size ulcer. Left heel ulcer Neuro alert and orientated to 3 - Labs CBC & Chem 7: 06/18/21 10:32 06/18/21 10:32 Labs: Abnormal Lab Results - Last 24 Hours (Table) 06/16/21 06/16/21 06/16/21 Range/Units 16:57 20:19 23:49 WBC (4.50-10.00) X 10*3/uL Hgb (13.0-17.0) g/dL Hct (39.6-50.0) % MCV (80.0-97.0) fL MCH (27.0-32.0) pg MCHC (32.0-37.0) g/dL RDW (11.5-14.5) % MPV (9.5-12.2) fL BUN (9.0-27.0) mg/dL BUN/Creatinine Ratio (12.00-20.00) Ratio Glucose (70-110) mg/dL POC Glucose (mg/dL) 171 H 168 H 67 L (75-99) mg/dL Total Bilirubin (0.30-1.20) mg/dL Albumin/Globulin Ratio (1.60-3.17) g/dL 06/17/21 06/17/21 06/17/21 Range/Units 00:36 03:24 03:50 WBC 10.71 H (4.50-10.00) X 10*3/uL Hgb 10.0 L (13.0-17.0) g/dL Hct 34.1 L (39.6-50.0) % MCV 75.3 L (80.0-97.0) fL MCH 22.1 L (27.0-32.0) pg MCHC 29.3 L (32.0-37.0) g/dL RDW 15.7 H (11.5-14.5) % MPV 9.4 L (9.5-12.2) fL BUN (9.0-27.0) mg/dL BUN/Creatinine Ratio (12.00-20.00) Ratio Glucose (70-110) mg/dL POC Glucose (mg/dL) 151 H 152 H (75-99) mg/dL Total Bilirubin (0.30-1.20) mg/dL Albumin/Globulin Ratio (1.60-3.17) g/dL 06/17/21 06/17/21 06/17/21 Range/Units 03:50 06:55 11:24 WBC (4.50-10.00) X 10*3/uL Hgb (13.0-17.0) g/dL Hct (39.6-50.0) % MCV (80.0-97.0) fL MCH (27.0-32.0) pg MCHC (32.0-37.0) g/dL RDW (11.5-14.5) % MPV (9.5-12.2) fL BUN 6.2 L (9.0-27.0) mg/dL BUN/Creatinine Ratio 7.75 L (12.00-20.00) Ratio Glucose 145 H (70-110) mg/dL POC Glucose (mg/dL) 166 H 196 H (75-99) mg/dL Total Bilirubin <0.15 L (0.30-1.20) mg/dL Albumin/Globulin Ratio 1.43 L (1.60-3.17) g/dL Assessment and Plan Assessment: 1. Nausea and vomiting secondary to hyperglycemia 2. Bilateral lower extremity wounds chronic. Patient follows with wound care and infectious disease services 3. Diabetes mellitus type 1 insulin-dependent. Patient reports he has been taking his insulin as prescribed no issues with medication or supplies 4. Hyponatremia upon presentation this has resolved 5. Hypokalemia replacement ordered per protocol 6. History of seizure disorder 7. History of hyperlipidemia 8. History of GERD DVT prophylaxis Lovenox. GI prophylaxis Protonix Infectious disease Wound Care consulted for chronic wounds Continue with IV fluid Repeat labs ordered
--- NOTE | 2021-06-18 13:36 | P.DS ---
Providers Date of admission: 06/15/21 23:50 Expected date of discharge: 06/18/21 Attending physician: Helen Chen Consults: 06/16/21 10:02 Consult Physician Routine Consulting Provider: Tess Morna Consult Reason/Comments: chronic wounds Do you want consulting provider notified?: Yes Primary care physician: Helen Chen [facility] Course: Diagnosis on discharge: 1. Nausea and vomiting likely secondary to hyperglycemia, improved with better glucose control 2. Bilateral lower extremity wounds chronic. Patient follows with wound care and infectious disease services 3. Diabetes mellitus type 1 insulin-dependent. Patient reports he has been taking his insulin as prescribed no issues with medication or supplies 4. Hyponatremia upon presentation this has resolved 5. Hypokalemia replacement ordered per protocol 6. History of seizure disorder 7. History of hyperlipidemia 8. History of GERD Hospital course: This is a 61-year-old male patient well-known to my services who presents here with concerns of nausea and vomiting. Patient reports that nausea vomiting Going on since 5:00 in the morning. Patient has extensive medical history including type 1 diabetes, chronic wounds to bilateral feet, GERD, hyperlipidemia, osteoarthritis and seizure disorder. Parietal patient was found to be hypoglycemic sugar of 544 and 4+ glucose in his urine sodium also but 132. Patient received insulin and IV fluid in the ER and was admitted for further management. Patient reports that he has been taking his insulin as prescribed. Patient denies any other recent illness. X-ray was completed showing change. COVID-19 was negative. Upon exam patient reports that he feels slightly improved. Potassium 3.4 continue IV fluid and potassium replacement. Sliding scale coverage added. Most recent blood sugar 145. Current vitals temp 97.9, heart rate 82, respiratory rate 17 blood pressure 146/75 and satting 99% on room air. Will consult wound care and infectious disease services for chronic wounds to bilateral feet. At this time patient denies chest pain or shortness breath. Patient denies nausea vomiting or diarrhea. Patient denies any urinary burning or frequency. On 06/17/2021 patient was seen and examined on the medical floor he is alert and oriented 3 in no apparent distress he is still having some nausea no vomiting or diarrhea today glucose level is much better controlled there is no fever or chills no headache or dizziness no chest pain no shortness of breath no cough no abdominal pain no blood in the stools no burning with urination no frequency or urgency and no hematuriOn 06/18/2021 patient was seen and examined on the medical floor he is alert and oriented 3 in no apparent distress there is no fever or chills no headache or dizziness no chest pain no shortness of breath no cough no nausea or vomiting no abdominal pain no diarrhea no blood in the stools no burning with urination no frequency or urgency and no hematuria. Infectious disease consultation was reviewed no need for systemic antibiotics per Dr. Moran, at this time patient will be discharged home will follow in the office in 2-3 days patient was counseled in length in regards to taking insulin as prescribed. Patient Condition at Discharge: Serious Plan - Discharge Summary Discharge Rx Participant: No New Discharge Prescriptions: New Collagenase [Santyl Ointment] 1 applic TOPICAL DAILY Continue Omeprazole 20 mg PO DAILY Pioglitazone HCl [Actos] 15 mg PO DAILY Diphenox-Atrop 2.5-0.025 mg [Lomotil] 1 tab PO BID PRN PRN Reason: Loose Stool Rosuvastatin [Crestor] 10 mg PO HS Insulin Glargine [Lantus Vial] 50 unit SQ DAILY traMADol HCL 50 mg PO Q6H PRN 3 Days #12 tab PRN Reason: Pain Latanoprost/Pf [Latanoprost 0.005% Eye Drop] 1 drop BOTH EYES HS Phenytoin Sodium Extended [Dilantin] 200 mg PO BID Acetaminophen Tab [Tylenol] 650 mg PO Q6HR PRN tab PRN Reason: Mild Pain Or Fever > 100.5 Ondansetron Odt [Zofran ODT] 4 mg PO Q8HR PRN #10 tab PRN Reason: Nausea Triamcinolone 0.5% Cream [Kenalog 0.5% Cream] 1 applic TOPICAL BID Mupirocin 2% Oint [Bactroban 2% Oint] 1 applic TOPICAL DAILY HYDROcodone/APAP 10-325MG [[place] 10-325] 1 tab PO TID PRN PRN Reason: Pain INSULIN ASPART (NovoLOG) [NovoLOG (formulary)] See Protocol SQ TID-W/MEALS Discharge Medication List Omeprazole 20 mg PO DAILY 06/13/17 [History] Pioglitazone HCl [Actos] 15 mg PO DAILY 10/03/18 [History] Diphenox-Atrop 2.5-0.025 mg [Lomotil] 1 tab PO BID PRN 11/17/19 [History] Insulin Glargine [Lantus Vial] 50 unit SQ DAILY 05/15/20 [History] Rosuvastatin [Crestor] 10 mg PO HS 05/15/20 [History] traMADol HCL 50 mg PO Q6H PRN 3 Days #12 tab 02/22/21 [Rx] Phenytoin Sodium Extended [Dilantin] 200 mg PO BID 05/10/21 [History] Acetaminophen Tab [Tylenol] 650 mg PO Q6HR PRN tab 05/14/21 [Rx] Ondansetron Odt [Zofran ODT] 4 mg PO Q8HR PRN #10 tab 05/30/21 [Rx] HYDROcodone/APAP 10-325MG [[place] 10-325] 1 tab PO TID PRN 06/15/21 [History] INSULIN ASPART (NovoLOG) [NovoLOG (formulary)] See Protocol SQ TID-W/MEALS 06/15/21 [History] Latanoprost/Pf [Latanoprost 0.005% Eye Drop] 1 drop BOTH EYES HS 06/15/21 [History] Mupirocin 2% Oint [Bactroban 2% Oint] 1 applic TOPICAL DAILY 06/15/21 [History] Triamcinolone 0.5% Cream [Kenalog 0.5% Cream] 1 applic TOPICAL BID 06/15/21 [History] Collagenase [Santyl Ointment] 1 applic TOPICAL DAILY 06/18/21 [Rx] Follow up Appointment(s)/Referral(s): Helen Chen MD [Primary Care Provider] - 1-2 days
[2021-06-18 15:08] VITALS: BP 138/84; PULSE 79; TEMP 97.6
--- NOTE | 2021-06-21 17:23 | P.PN ---
Subjective Progress Note Date: 06/18/21 Principal diagnosis: Right foot and left big toe wound Patient is a 61-year-old male with a past medical history significant for diabetes mellitus history of chronic nonhealing wound on the plantar aspect of the right foot and the left big toe wound. Presenting to the hospital with nausea and vomiting. On today's evaluation that is 06/18/2021, the patient remains to be afebrile, the patient denies nausea or any further vomiting, the patient denies any abdominal pain and no diarrhea, the patient denies pain to the right foot and left big toe wound area Objective - Vital Signs Vital signs: Vital Signs Temp 98.3 F 06/18/21 07:03 Pulse 86 06/18/21 07:03 Resp 18 06/18/21 07:03 BP 133/74 06/18/21 07:03 Pulse Ox 97 06/18/21 07:03 Intake & Output 06/17/21 06/18/21 06/18/21 18:59 06:59 18:59 Intake Total 1400 Balance 1400 Intake: Intake, IV Titration 1400 Amount Sodium Chloride 0.9% 1, 1400 000 ml @ 130 mls/hr IV . Q7H42M [facility] Rx#:[id number] Other: Voiding Method Toilet # Voids 4 - Exam GENERAL DESCRIPTION: Middle-age male lying in bed in no distress RESPIRATORY SYSTEM: Unlabored breathing , decreased breath sounds at bases HEART: S1 S2 regular rate and rhythm , ABDOMEN: Soft , no tenderness EXTREMITIES: Right foot and left big toe wounds are currently dressed no drainage on the dressing - Labs CBC & Chem 7: 06/18/21 10:32 06/18/21 10:32 Labs: Abnormal Lab Results - Last 24 Hours (Table) 06/17/21 06/17/21 06/18/21 Range/Units 16:20 20:43 06:51 Hgb (13.0-17.5) gm/dL Hct (39.0-53.0) % MCV (80.0-100.0) fL MCH (25.0-35.0) pg MCHC (31.0-37.0) g/dL RDW (11.5-15.5) % Sodium (137-145) mmol/L Glucose (74-99) mg/dL POC Glucose (mg/dL) 318 H 264 H 298 H (75-99) mg/dL Total Protein (6.3-8.2) g/dL Albumin (3.5-5.0) g/dL 06/18/21 06/18/21 06/18/21 Range/Units 10:32 10:32 11:15 Hgb 10.4 L (13.0-17.5) gm/dL Hct 35.1 L (39.0-53.0) % MCV 77.5 L (80.0-100.0) fL MCH 23.0 L (25.0-35.0) pg MCHC 29.6 L (31.0-37.0) g/dL RDW 15.6 H (11.5-15.5) % Sodium 133 L (137-145) mmol/L Glucose 347 H (74-99) mg/dL POC Glucose (mg/dL) 277 H (75-99) mg/dL Total Protein 6.2 L (6.3-8.2) g/dL Albumin 3.2 L (3.5-5.0) g/dL Assessment and Plan (1) Diabetic ulcer of right foot Status: Acute Code(s): E11.621 - TYPE 2 DIABETES MELLITUS WITH FOOT ULCER; L97.519 - NON-PRS CHRONIC ULCER OTH PRT RIGHT FOOT W UNSP SEVERITY SNOMED Code(s): 460921186 Plan: 1patient with right foot plantar wound with no evidence of any soft tissue or secondary cellulitis recommend local wound care with Aquacel silver dressing to be changed every 48 hour. 2left big toe wound at the nail bed after removal of the nail bed with no cellulitis local wound care with dry Aquacel silver dressing change every 48 hour. 3no need for any systemic antibiotic therapy on discharge Time with Patient: Less than 30
== END 2021-06-18 15:15 | disposition home or self-care (01) ==
LOC: EC 16:01 → 4SSUR 23:50
PROVIDERS: ADMIT Internal Medicine; ATTEND Internal Medicine
DX: R11.2 Nausea with vomiting, unspecified (principal); E10.65 Type 1 diabetes mellitus with hyperglycemia; E86.0 Dehydration; E10.621 Type 1 diabetes mellitus with foot ulcer; L97.412 Non-pressure chronic ulcer of right heel and midfoot with fat layer exposed; E10.622 Type 1 diabetes mellitus with other skin ulcer; L97.522 Non-pressure chronic ulcer of other part of left foot with fat layer exposed; E87.1 Hypo-osmolality and hyponatremia; E87.6 Hypokalemia; G40.909 Epilepsy, unspecified, not intractable, without status epilepticus; K21.9 Gastro-esophageal reflux disease without esophagitis; E78.5 Hyperlipidemia, unspecified; E10.42 Type 1 diabetes mellitus with diabetic polyneuropathy; F32.A Depression, unspecified; R19.7 Diarrhea, unspecified; R06.02 Shortness of breath; Z20.822 Contact with and (suspected) exposure to COVID-19; Z79.84 Long term (current) use of oral hypoglycemic drugs; Z79.4 Long term (current) use of insulin; Z79.899 Other long term (current) drug therapy; M17.12 Unilateral primary osteoarthritis, left knee; Z86.69 Personal history of other diseases of the nervous system and sense organs; Z86.19 Personal history of other infectious and parasitic diseases; Z86.14 Personal history of Methicillin resistant Staphylococcus aureus infection; Z82.49 Family history of ischemic heart disease and other diseases of the circulatory system; Z80.9 Family history of malignant neoplasm, unspecified; Z83.3 Family history of diabetes mellitus
CPT/HCPCS: 96361 ×3; 96372 ×2; 96376; 96374; 99285; 36415; 93005; 80053 ×3; 80048; 82150; 82009; 83690; 84484; 85025 ×4; 81003; 87324; 87635; 71046; 76700; G0378 ×3; J2405; J1650 ×2

== ENCOUNTER 2021-06-26 20:28 | Emergency (ER) | payer OTHER ==
[2021-06-26 21:14] LABS: Appearance,Urine Clear (Clear); Bilirubin,Urine Negative (Negative); Blood,Urine Negative (Negative); Color,Urine Yellow; Glucose,Urine (UA) 4+ (Negative); Ketones,Urine Negative (Negative); Leukocyte Esterase,Urine Negative (Negative); Nitrite,Urine Negative (Negative); Protein,Urine Negative (Negative); Specific Gravity,Urine 1.034 (1.001-1.035); Urobilinogen,Urine <2.0 mg/dL (<2.0)
[2021-06-27] MEDS ORDERED: SODIUM CHLORIDE 0.9% 500 ML 500 ML IV STA ×2 (00:08→01:26)
[2021-06-27] MEDS ORDERED: ONDANSETRON 4 MG/2 ML VIAL IVP STA (00:08)
[2021-06-27] MEDS ORDERED: SODIUM CHLORIDE 0.9% 1,000 ML IV ONE (00:34)
[2021-06-27 00:57] LABS: Basophils % (A) 1 %; Eosinophils % (A) 0 %; HCT 36.6 % (39.0-53.0); Hypochromasia Marked; Lymphocytes # (A) 1.4 k/uL (1.0-4.8); Lymphocytes % (A) 21 %; MCH 23.3 pg (25.0-35.0); MCHC 29.9 g/dL (31.0-37.0); MCV 77.7 fL (80.0-100.0); Mean Platelet Volume 6.5; Microcytosis Slight; Monocytes # (A) 0.4 k/uL (0-1.0); Monocytes % (A) 5 %; Neutrophils # (A) 4.9 k/uL (1.3-7.7); Neutrophils % (A) 71 %; Platelet Count 581 k/uL (150-450); RBC 4.71 m/uL (4.30-5.90); RDW 15.4 % (11.5-15.5); WBC 6.9 k/uL (3.8-10.6)
[2021-06-27 01:10] LABS: ALT 13 U/L (4-49); AST 21 U/L (17-59); African American GFR (CKD) >90 (>60 ml/min/1.73 sqM); Albumin 4.2 g/dL (3.5-5.0); Alkaline Phosphatase 106 U/L (38-126); Amylase 56 U/L (30-110); Anion Gap 11 mmol/L; Blood Urea Nitrogen 12 mg/dL (9-20); Calcium 9.5 mg/dL (8.4-10.2); Carbon Dioxide 27 mmol/L (22-30); Chloride 93 mmol/L (98-107); Lipase 84 U/L (23-300); Non-African American GFR(CKD) >90 (>60 ml/min/1.73 sqM); Potassium 4.7 mmol/L (3.5-5.1); Sodium 131 mmol/L (137-145); Total Bilirubin 0.4 mg/dL (0.2-1.3); Total Protein 7.6 g/dL (6.3-8.2)
[2021-06-27 01:19] LABS: Glucose 653 mg/dL (74-99)
[2021-06-27] MEDS ORDERED: INSULIN REGULAR 100 UNIT/ML VIAL (IV) IV STA (01:25)
[2021-06-27 02:34] LABS: Glucose,Whole Blood 278 mg/dL (75-99)
[2021-06-27 04:58] LABS: Glucose,Whole Blood 120 mg/dL (75-99)
--- NOTE | 2021-06-27 05:05 | ED ---
Nausea/Vomiting/Diarrhea HPI - General Chief complaint: Nausea/Vomiting/Diarrhea Stated complaint: Nausea Time Seen by Provider: 06/26/21 23:56 Source: patient Mode of arrival: ambulatory - History of Present Illness Initial comments: This patient is 61-year-old man who presents chiefly to have reevaluation treatment for nausea. The patient states that it has decreased his appetite and he is not taking much by mouth. As result he believes that his sugar may be up as he has not been taking the full insulin dose. No hematemesis. No change in bowel movements. No abdominal pain MD complaint: nausea -: days(s) Associated Abdominal Pain: No Severity scale (1-10): 0 Consistency: constant Improves with: none Worsens with: none Associated Symptoms: nausea/vomiting - Related Data Home Medications Medication Instructions Recorded Confirmed Omeprazole 20 mg PO DAILY 06/13/17 06/15/21 Pioglitazone HCl [Actos] 15 mg PO DAILY 10/03/18 06/15/21 Diphenox-Atrop 2.5-0.025 mg 1 tab PO BID PRN 11/17/19 06/15/21 [Lomotil] Insulin Glargine [Lantus Vial] 50 unit SQ DAILY 05/15/20 06/15/21 Rosuvastatin [Crestor] 10 mg PO HS 05/15/20 06/15/21 Phenytoin Sodium Extended 200 mg PO BID 05/10/21 06/15/21 [Dilantin] HYDROcodone/APAP 10-325MG [[place] 1 tab PO TID PRN 06/15/21 06/15/21 10-325] INSULIN ASPART (NovoLOG) [NovoLOG See Protocol SQ TID-W/MEALS 06/15/21 06/15/21 (formulary)] Latanoprost/Pf [Latanoprost 0.005% 1 drop BOTH EYES HS 06/15/21 06/15/21 Eye Drop] Mupirocin 2% Oint [Bactroban 2% 1 applic TOPICAL DAILY 06/15/21 06/15/21 Oint] Triamcinolone 0.5% Cream [Kenalog 1 applic TOPICAL BID 06/15/21 06/15/21 0.5% Cream] Previous Rx's Medication Instructions Recorded traMADol HCL 50 mg PO Q6H PRN 3 Days #12 tab 02/22/21 Acetaminophen Tab [Tylenol] 650 mg PO Q6HR PRN tab 05/14/21 Ondansetron Odt [Zofran ODT] 4 mg PO Q8HR PRN #10 tab 05/30/21 Collagenase [Santyl Ointment] 1 applic TOPICAL DAILY 06/18/21 Ondansetron Odt [Zofran ODT] 4 mg PO Q8HR PRN #10 tab 06/27/21 Metoclopramide [Reglan] 5 mg PO ACHS #16 tab 07/09/21 Allergies Allergy/AdvReac Type Severity Reaction Status Date / Time No Known Allergies Allergy Verified 07/02/21 18:23 Review of Systems ROS Statement: Those systems with pertinent positive or pertinent negative responses have been documented in the HPI. ROS Other: All systems not noted in ROS Statement are negative. Constitutional: Denies: fever, chills Respiratory: Denies: cough, dyspnea Cardiovascular: Denies: chest pain, palpitations Gastrointestinal: Reports: nausea. Denies: abdominal pain, vomiting, diarrhea, constipation Genitourinary: Denies: dysuria, hematuria Musculoskeletal: Denies: back pain Skin: Denies: rash Neurological: Denies: headache, weakness Past Medical History Past Medical History: Diabetes Mellitus, Diabetes Mellitus, GERD/Reflux, Hyperlipidemia, Osteoarthritis (OA), Seizure Disorder Additional Past Medical History / Comment(s): IDDM type 1 per pt, bilateral feet neuropathy, pt states current wounds to bilateral feet/goes to [facility]/seen by Dr. Major (environmental intern), past L lower extremity cellulitis with sepsis, L wrist cancerous tumor removed, past seizure about a year ago, arthritis L knee, vertigo, occasional diarrhea. History of Any Multi-Drug Resistant Organisms: MRSA Date of last positivie culture/infection: 12/29/19 MDRO Source:: Left Leg Past Surgical History: Orthopedic Surgery, Tonsillectomy Additional Past Surgical History / Comment(s): 01/23/20 angiogram L leg, 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, colonoscopy, L eye surgery for strabismus. Past Anesthesia/Blood Transfusion Reactions: No Reported Reaction Past Psychological History: Depression Smoking Status: Never smoker Past Alcohol Use History: None Reported Past Drug Use History: None Reported - Past Family History Father Family Medical History: Myocardial Infarction ([place]) Additional Family Medical History / Comment(s): Father of a [place] at the age of 57yrs. Mother Family Medical History: Cancer Additional Family Medical History / Comment(s): Mother from cancer at the age of 61 or 62 . Pt cannot recall type of cancer. Sister(s) Family Medical History: Diabetes Mellitus Additional Family Medical History / Comment(s): Sister had DM type 1. She is . General Exam General appearance: alert, in no apparent distress Head exam: Present: atraumatic, normocephalic Eye exam: Present: normal appearance. Absent: scleral icterus, conjunctival injection ENT exam: Present: mucous membranes dry Neck exam: Present: normal inspection Respiratory exam: Present: normal lung sounds bilaterally. Absent: respiratory distress, wheezes, rales, rhonchi, stridor Cardiovascular Exam: Present: regular rate, normal rhythm, normal heart sounds. Absent: systolic murmur, diastolic murmur, rubs, gallop GI/Abdominal exam: Present: soft. Absent: distended, tenderness, guarding, rebound, rigid, mass Extremities exam: Present: normal inspection, normal capillary refill. Absent: pedal edema, calf tenderness Back exam: Present: normal inspection. Absent: CVA tenderness (R), CVA tenderness (L) Neurological exam: Present: alert Skin exam: Present: warm, dry, intact, normal color. Absent: rash Course Vital Signs 06/26/21 06/27/21 06/27/21 20:57 00:41 04:35 Temperature 99.2 F Pulse Rate 128 H 95 91 Respiratory 18 16 16 Rate Blood Pressure 112/63 150/49 120/66 O2 Sat by Pulse 96 99 Oximetry 06/27/21 06:30 Temperature 98.3 F Pulse Rate 97 Respiratory 15 Rate Blood Pressure 145/73 O2 Sat by Pulse 97 Oximetry Medical Decision Making - Medical Decision Making Patient has responded well to fluid, antiemetic, insulin and feeling well enough to go home. Discussed appropriate return parameters and follow-up - Lab Data Result diagrams: 06/27/21 00:28 06/27/21 00:28 Lab Results 06/26/21 06/27/21 06/27/21 Range/Units 21:07 00:28 00:28 WBC 6.9 (3.8-10.6) k/uL RBC 4.71 (4.30-5.90) m/uL Hgb 11.0 L (13.0-17.5) gm/dL Hct 36.6 L (39.0-53.0) % MCV 77.7 L (80.0-100.0) fL MCH 23.3 L (25.0-35.0) pg MCHC 29.9 L (31.0-37.0) g/dL RDW 15.4 (11.5-15.5) % Plt Count 581 H (150-450) k/uL MPV 6.5 Neutrophils % 71 % Lymphocytes % 21 % Monocytes % 5 % Eosinophils % 0 % Basophils % 1 % Neutrophils # 4.9 (1.3-7.7) k/uL Lymphocytes # 1.4 (1.0-4.8) k/uL Monocytes # 0.4 (0-1.0) k/uL Eosinophils # 0.0 (0-0.7) k/uL Basophils # 0.0 (0-0.2) k/uL Hypochromasia Marked Microcytosis Slight Sodium 131 L (137-145) mmol/L Potassium 4.7 (3.5-5.1) mmol/L Chloride 93 L (98-107) mmol/L Carbon Dioxide 27 (22-30) mmol/L Anion Gap 11 mmol/L BUN 12 (9-20) mg/dL Creatinine 0.74 (0.66-1.25) mg/dL Est GFR (CKD-EPI)AfAm >90 (>60 ml/min/1.73 sqM) Est GFR (CKD-EPI)NonAf >90 (>60 ml/min/1.73 sqM) Glucose 653 H* (74-99) mg/dL POC Glucose (mg/dL) (75-99) mg/dL POC Glu Sleeping Room Cleaner ID Calcium 9.5 (8.4-10.2) mg/dL Total Bilirubin 0.4 (0.2-1.3) mg/dL AST 21 (17-59) U/L ALT 13 (4-49) U/L Alkaline Phosphatase 106 (38-126) U/L Total Protein 7.6 (6.3-8.2) g/dL Albumin 4.2 (3.5-5.0) g/dL Amylase 56 (30-110) U/L Lipase 84 (23-300) U/L Urine Color Yellow Urine Appearance Clear (Clear) Urine pH 5.0 (5.0-8.0) Ur Specific [place] 1.034 (1.001-1.035) Urine Protein Negative (Negative) Urine Glucose (UA) 4+ H (Negative) Urine Ketones Negative (Negative) Urine Blood Negative (Negative) Urine Nitrite Negative (Negative) Urine Bilirubin Negative (Negative) Urine Urobilinogen <2.0 (<2.0) mg/dL Ur Leukocyte Esterase Negative (Negative) Acetone, Qual Negative (Negative) Coronavirus (PCR) (Not Detectd) 06/27/21 06/27/21 06/27/21 Range/Units 00:28 02:32 04:56 WBC (3.8-10.6) k/uL RBC (4.30-5.90) m/uL Hgb (13.0-17.5) gm/dL Hct (39.0-53.0) % MCV (80.0-100.0) fL MCH (25.0-35.0) pg MCHC (31.0-37.0) g/dL RDW (11.5-15.5) % Plt Count (150-450) k/uL MPV Neutrophils % % Lymphocytes % % Monocytes % % Eosinophils % % Basophils % % Neutrophils # (1.3-7.7) k/uL Lymphocytes # (1.0-4.8) k/uL Monocytes # (0-1.0) k/uL Eosinophils # (0-0.7) k/uL Basophils # (0-0.2) k/uL Hypochromasia Microcytosis Sodium (137-145) mmol/L Potassium (3.5-5.1) mmol/L Chloride (98-107) mmol/L Carbon Dioxide (22-30) mmol/L Anion Gap mmol/L BUN (9-20) mg/dL Creatinine (0.66-1.25) mg/dL Est GFR (CKD-EPI)AfAm (>60 ml/min/1.73 sqM) Est GFR (CKD-EPI)NonAf (>60 ml/min/1.73 sqM) Glucose (74-99) mg/dL POC Glucose (mg/dL) 278 H 120 H (75-99) mg/dL POC Glu Sleeping Room Cleaner ID Kelsey, Barbara Kelsey, Barbara Calcium (8.4-10.2) mg/dL Total Bilirubin (0.2-1.3) mg/dL AST (17-59) U/L ALT (4-49) U/L Alkaline Phosphatase (38-126) U/L Total Protein (6.3-8.2) g/dL Albumin (3.5-5.0) g/dL Amylase (30-110) U/L Lipase (23-300) U/L Urine Color Urine Appearance (Clear) Urine pH (5.0-8.0) Ur Specific [place] (1.001-1.035) Urine Protein (Negative) Urine Glucose (UA) (Negative) Urine Ketones (Negative) Urine Blood (Negative) Urine Nitrite (Negative) Urine Bilirubin (Negative) Urine Urobilinogen (<2.0) mg/dL Ur Leukocyte Esterase (Negative) Acetone, Qual (Negative) Coronavirus (PCR) Not Detected (Not Detectd) Disposition Clinical Impression: Nausea & vomiting, Uncontrolled diabetes mellitus Disposition: HOME SELF-CARE Condition: Fair Instructions (If sedation given, give patient instructions): Acute Nausea and Vomiting (ED) Prescriptions: Ondansetron Odt [Zofran ODT] 4 mg PO Q8HR PRN #10 tab PRN Reason: Nausea Is patient prescribed a controlled substance at d/c from ED?: No Referrals: Helen Chen MD [Primary Care Provider] - 1-2 days
[2021-06-27 06:42] VITALS: BP 145/73; PULSE 97; RESP 15; TEMP 98.3
== END 2021-06-27 06:30 | disposition home or self-care (01) ==
LOC: EC 20:28
DX: E10.65 Type 1 diabetes mellitus with hyperglycemia (principal); E10.40 Type 1 diabetes mellitus with diabetic neuropathy, unspecified; E78.5 Hyperlipidemia, unspecified; G40.909 Epilepsy, unspecified, not intractable, without status epilepticus; K21.9 Gastro-esophageal reflux disease without esophagitis; M19.90 Unspecified osteoarthritis, unspecified site; F32.A Depression, unspecified; Z79.899 Other long term (current) drug therapy
CPT/HCPCS: 36415; 80053; 82150; 82009; 83690; 85025; 81003; 87635; 99284; 96374; 96375; 96361 ×3; J2405

== ENCOUNTER 2021-06-30 13:47 | Emergency (ER) | payer OTHER ==
[2021-06-30 14:04] VITALS: RESP 18; TEMP 97.7
--- NOTE | 2021-06-30 16:26 | XR ---
EXAMINATION TYPE: XR KUB DATE OF EXAM: 06/30/2021 COMPARISON: 04/29/2018 HISTORY: Pain TECHNIQUE: 2 views upright FINDINGS: There is no sign of intestinal obstruction or pneumoperitoneum. Fecal pattern is fairly nor mal. No evidence of a mass. There is vas deferens calcification. Lung bases are clear. There are no c alcifications over the kidneys. IMPRESSION: Nonacute abdomen. No adverse change.
[2021-06-30] MEDS ORDERED: MORPHINE SULFATE 2 MG/ML SYRINGE IVP STA (17:17)
[2021-06-30] MEDS ORDERED: SODIUM CHLORIDE 0.9% 1,000 ML IV ONE (17:17)
[2021-06-30 18:18] LABS: Basophils % (A) 0 %; Eosinophils % (A) 0 %; HCT 36.5 % (39.0-53.0); HGB 11.2 gm/dL (13.0-17.5); Hypochromasia Moderate; Lymphocytes # (A) 1.3 k/uL (1.0-4.8); Lymphocytes % (A) 14 %; MCHC 30.6 g/dL (31.0-37.0); MCV 75.2 fL (80.0-100.0); Mean Platelet Volume 7.2; Microcytosis Slight; Monocytes # (A) 0.4 k/uL (0-1.0); Monocytes % (A) 4 %; Neutrophils # (A) 7.6 k/uL (1.3-7.7); Neutrophils % (A) 80 %; Platelet Count 582 k/uL (150-450); RBC 4.86 m/uL (4.30-5.90); RDW 15.2 % (11.5-15.5); WBC 9.5 k/uL (3.8-10.6)
[2021-06-30 18:46] VITALS: BP 148/85; PULSE 76
[2021-06-30 18:47] LABS: ALT 10 U/L (4-49); AST 16 U/L (17-59); African American GFR (CKD) >90 (>60 ml/min/1.73 sqM); Albumin 3.9 g/dL (3.5-5.0); Alkaline Phosphatase 109 U/L (38-126); Amylase 66 U/L (30-110); Anion Gap 7 mmol/L; Blood Urea Nitrogen 10 mg/dL (9-20); Calcium 9.5 mg/dL (8.4-10.2); Carbon Dioxide 29 mmol/L (22-30); Chloride 99 mmol/L (98-107); Glucose 370 mg/dL (74-99); Lipase 72 U/L (23-300); Non-African American GFR(CKD) >90 (>60 ml/min/1.73 sqM); Potassium 4.3 mmol/L (3.5-5.1); Sodium 135 mmol/L (137-145); Total Bilirubin 0.4 mg/dL (0.2-1.3); Total Protein 7.4 g/dL (6.3-8.2)
--- NOTE | 2021-06-30 18:52 | ED ---
General Adult HPI - General Chief complaint: Nausea/Vomiting/Diarrhea Stated complaint: JUSTO Time Seen by Provider: 06/30/21 17:13 Source: patient, RN notes reviewed, old records reviewed Mode of arrival: wheelchair Limitations: no limitations - History of Present Illness Initial comments: 61-year-old male presenting for evaluation of loose stool. His symptoms 7 present for the past 4 days. He denies salo diarrhea. Denies active bleeding. He denies fever or nausea and vomiting. He denies abdominal pain. He states he has been eating a regular diet with no recent changes. He has a type I diabetic. He denies chest pain. Denies dysuria or hematuria. - Related Data Home Medications Medication Instructions Recorded Confirmed Omeprazole 20 mg PO DAILY 06/13/17 06/15/21 Pioglitazone HCl [Actos] 15 mg PO DAILY 10/03/18 06/15/21 Diphenox-Atrop 2.5-0.025 mg 1 tab PO BID PRN 11/17/19 06/15/21 [Lomotil] Insulin Glargine [Lantus Vial] 50 unit SQ DAILY 05/15/20 06/15/21 Rosuvastatin [Crestor] 10 mg PO HS 05/15/20 06/15/21 Phenytoin Sodium Extended 200 mg PO BID 05/10/21 06/15/21 [Dilantin] HYDROcodone/APAP 10-325MG [[place] 1 tab PO TID PRN 06/15/21 06/15/21 10-325] INSULIN ASPART (NovoLOG) [NovoLOG See Protocol SQ TID-W/MEALS 06/15/21 06/15/21 (formulary)] Latanoprost/Pf [Latanoprost 0.005% 1 drop BOTH EYES HS 06/15/21 06/15/21 Eye Drop] Mupirocin 2% Oint [Bactroban 2% 1 applic TOPICAL DAILY 06/15/21 06/15/21 Oint] Triamcinolone 0.5% Cream [Kenalog 1 applic TOPICAL BID 06/15/21 06/15/21 0.5% Cream] Previous Rx's Medication Instructions Recorded traMADol HCL 50 mg PO Q6H PRN 3 Days #12 tab 02/22/21 Acetaminophen Tab [Tylenol] 650 mg PO Q6HR PRN tab 05/14/21 Ondansetron Odt [Zofran ODT] 4 mg PO Q8HR PRN #10 tab 05/30/21 Collagenase [Santyl Ointment] 1 applic TOPICAL DAILY 06/18/21 Ondansetron Odt [Zofran ODT] 4 mg PO Q8HR PRN #10 tab 06/27/21 Allergies Allergy/AdvReac Type Severity Reaction Status Date / Time No Known Allergies Allergy Verified 06/30/21 14:04 Review of Systems ROS Statement: Those systems with pertinent positive or pertinent negative responses have been documented in the HPI. ROS Other: All systems not noted in ROS Statement are negative. 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 History of Any Multi-Drug Resistant Organisms: MRSA Date of last positivie culture/infection: 12/29/19 MDRO Source:: Left Leg Past Surgical History: Orthopedic Surgery, Tonsillectomy Additional Past Surgical History / Comment(s): 01/23/20 angiogram L leg, c ancerous tumor removed from left wrist, colonoscopy, L eye surgery for strabismus. Past Anesthesia/Blood Transfusion Reactions: No Reported Reaction Past Psychological History: Depression Smoking Status: Never smoker Past Alcohol Use History: None Reported Past Drug Use History: None Reported - Past Family History Father Family Medical History: Myocardial Infarction ([place]) Additional Family Medical History / Comment(s): Father of a [place] at the age of 57yrs. Mother Family Medical History: Cancer Additional Family Medical History / Comment(s): Mother from cancer at the age of 61 or 62 . Pt cannot recall type of cancer. Sister(s) Family Medical History: Diabetes Mellitus Additional Family Medical History / Comment(s): Sister had DM type 1. She is . General Exam Limitations: no limitations General appearance: alert, in no apparent distress Head exam: Present: atraumatic, normocephalic Eye exam: Present: normal appearance, PERRL ENT exam: Present: mucous membranes moist Neck exam: Present: normal inspection. Absent: tenderness, meningismus Respiratory exam: Present: normal lung sounds bilaterally. Absent: respiratory distress, wheezes Cardiovascular Exam: Present: regular rate, normal rhythm GI/Abdominal exam: Present: soft. Absent: distended, tenderness, guarding Extremities exam: Present: normal inspection, normal capillary refill. Absent: pedal edema, calf tenderness Neurological exam: Present: alert, oriented X3, CN II-XII intact. Absent: motor sensory deficit Psychiatric exam: Present: normal affect, normal mood Skin exam: Present: warm, dry, intact. Absent: cyanosis, diaphoretic Course Vital Signs 06/30/21 06/30/21 13:59 18:45 Temperature 97.7 F Pulse Rate 111 H 76 Respiratory 18 18 Rate Blood Pressure 126/71 148/85 O2 Sat by Pulse 97 98 Oximetry Medical Decision Making - Medical Decision Making 61-year-old male presents with loose stool. No rectal bleeding. No abdominal pain. No fever. No vomiting. Patient well-appearing with stable vitals. No abdominal tenderness on exam. He appears well-hydrated. Patient has stable CBC, CMP showing hyperglycemia without other acute abdomen, no acidosis no kidney dysfunction. Patient should follow-up with his primary care physician and possibly gastroenterology regarding the ongoing nature of these symptoms. - Lab Data Result diagrams: 06/30/21 18:12 06/30/21 18:12 Lab Results 06/30/21 06/30/21 06/30/21 Range/Units 18:12 18:12 18:12 WBC 9.5 (3.8-10.6) k/uL RBC 4.86 (4.30-5.90) m/uL Hgb 11.2 L (13.0-17.5) gm/dL Hct 36.5 L (39.0-53.0) % MCV 75.2 L (80.0-100.0) fL MCH 23.0 L (25.0-35.0) pg MCHC 30.6 L (31.0-37.0) g/dL RDW 15.2 (11.5-15.5) % Plt Count 582 H (150-450) k/uL MPV 7.2 Neutrophils % 80 % Lymphocytes % 14 % Monocytes % 4 % Eosinophils % 0 % Basophils % 0 % Neutrophils # 7.6 (1.3-7.7) k/uL Lymphocytes # 1.3 (1.0-4.8) k/uL Monocytes # 0.4 (0-1.0) k/uL Eosinophils # 0.0 (0-0.7) k/uL Basophils # 0.0 (0-0.2) k/uL Hypochromasia Moderate Microcytosis Slight Sodium 135 L (137-145) mmol/L Potassium 4.3 (3.5-5.1) mmol/L Chloride 99 (98-107) mmol/L Carbon Dioxide 29 (22-30) mmol/L Anion Gap 7 mmol/L BUN 10 (9-20) mg/dL Creatinine 0.68 (0.66-1.25) mg/dL Est GFR (CKD-EPI)AfAm >90 (>60 ml/min/1.73 sqM) Est GFR (CKD-EPI)NonAf >90 (>60 ml/min/1.73 sqM) Glucose 370 H (74-99) mg/dL Plasma Lactic Acid Michael 1.0 (0.7-2.0) mmol/L Calcium 9.5 (8.4-10.2) mg/dL Total Bilirubin 0.4 (0.2-1.3) mg/dL AST 16 L (17-59) U/L ALT 10 (4-49) U/L Alkaline Phosphatase 109 (38-126) U/L Total Protein 7.4 (6.3-8.2) g/dL Albumin 3.9 (3.5-5.0) g/dL Amylase 66 (30-110) U/L Lipase 72 (23-300) U/L Disposition Clinical Impression: Diarrhea Disposition: HOME SELF-CARE Condition: Fair Instructions (If sedation given, give patient instructions): Acute Diarrhea (ED) Is patient prescribed a controlled substance at d/c from ED?: No Referrals: Helen Chen MD [Primary Care Provider] - 1-2 days Jil Vivar MD [STAFF PHYSICIAN] - 1-2 days Time of Disposition: 19:00
== END 2021-06-30 19:32 | disposition home or self-care (01) ==
LOC: EC 13:47
DX: R19.7 Diarrhea, unspecified (principal); E10.65 Type 1 diabetes mellitus with hyperglycemia; E10.40 Type 1 diabetes mellitus with diabetic neuropathy, unspecified; E78.5 Hyperlipidemia, unspecified; G40.909 Epilepsy, unspecified, not intractable, without status epilepticus; K21.9 Gastro-esophageal reflux disease without esophagitis; F32.A Depression, unspecified; M19.90 Unspecified osteoarthritis, unspecified site; Z79.899 Other long term (current) drug therapy
CPT/HCPCS: 74018; 80053; 82150; 83605; 83690; 85025; 96360; 99284

== ENCOUNTER 2021-07-02 17:47 | Emergency (ER) | payer OTHER ==
[2021-07-02 18:23] VITALS: BP 124/71; PULSE 112; RESP 18; TEMP 98.1
[2021-07-02 19:17] LABS: Basophils # (A) 0.1 k/uL (0-0.2); Basophils % (A) 1 %; Eosinophils # (A) 0.1 k/uL (0-0.7); Eosinophils % (A) 1 %; HCT 35.8 % (39.0-53.0); Hypochromasia Slight; Lymphocytes # (A) 1.7 k/uL (1.0-4.8); Lymphocytes % (A) 21 %; MCH 23.1 pg (25.0-35.0); MCHC 30.8 g/dL (31.0-37.0); Mean Platelet Volume 6.8; Microcytosis Slight; Monocytes # (A) 0.4 k/uL (0-1.0); Monocytes % (A) 5 %; Neutrophils # (A) 5.9 k/uL (1.3-7.7); Neutrophils % (A) 72 %; Platelet Count 540 k/uL (150-450); RBC 4.77 m/uL (4.30-5.90); RDW 14.7 % (11.5-15.5); WBC 8.1 k/uL (3.8-10.6)
[2021-07-02 19:18] LABS: ALT 12 U/L (4-49); AST 19 U/L (17-59); African American GFR (CKD) >90 (>60 ml/min/1.73 sqM); Alkaline Phosphatase 110 U/L (38-126); Anion Gap 10 mmol/L; Blood Urea Nitrogen 12 mg/dL (9-20); Calcium 9.5 mg/dL (8.4-10.2); Carbon Dioxide 27 mmol/L (22-30); Chloride 96 mmol/L (98-107); Glucose 306 mg/dL (74-99); Non-African American GFR(CKD) >90 (>60 ml/min/1.73 sqM); Potassium 4.1 mmol/L (3.5-5.1); Sodium 133 mmol/L (137-145); Total Bilirubin 0.4 mg/dL (0.2-1.3); Total Protein 7.4 g/dL (6.3-8.2)
== END 2021-07-02 22:12 | disposition left against medical advice (07) ==
LOC: EC 17:47
DX: Z53.21 Procedure and treatment not carried out due to patient leaving prior to being seen by health care provider (principal); R06.02 Shortness of breath
CPT/HCPCS: 36415; 80053; 84484; 85025; 93005

== ENCOUNTER 2021-07-08 18:59 | Emergency (ER) | payer OTHER ==
[2021-07-08 19:09] VITALS: BP 134/79; PULSE 109; RESP 18; TEMP 98.1
[2021-07-09] MEDS ORDERED: METOCLOPRAMIDE 5 MG/ML 2 ML VIAL IVP STA (00:16)
[2021-07-09] MEDS ORDERED: SODIUM CHLORIDE 0.9% 500 ML 500 ML IV STA (00:16)
[2021-07-09 00:35] LABS: Basophils # (A) 0.1 k/uL (0-0.2); Basophils % (A) 1 %; Eosinophils % (A) 1 %; HCT 35.9 % (39.0-53.0); HGB 10.5 gm/dL (13.0-17.5); Hypochromasia Moderate; Lymphocytes # (A) 1.6 k/uL (1.0-4.8); Lymphocytes % (A) 23 %; MCH 21.8 pg (25.0-35.0); MCHC 29.1 g/dL (31.0-37.0); Mean Platelet Volume 7.5; Microcytosis Slight; Monocytes # (A) 0.6 k/uL (0-1.0); Monocytes % (A) 9 %; Neutrophils # (A) 4.5 k/uL (1.3-7.7); Neutrophils % (A) 64 %; Platelet Count 445 k/uL (150-450); RBC 4.79 m/uL (4.30-5.90); RDW 14.4 % (11.5-15.5)
--- NOTE | 2021-07-09 00:40 | ED ---
Nausea/Vomiting/Diarrhea HPI - General Chief complaint: Nausea/Vomiting/Diarrhea Stated complaint: JUSTO Time Seen by Provider: 07/08/21 23:57 Source: patient Mode of arrival: ambulatory Limitations: no limitations - History of Present Illness Initial comments: This patient is a 61-year-old man who presents with complaint of nausea, vomiting, decreased appetite. He states the symptoms have been going on for 2-3 days. He states that he gets this relatively frequently. He is not having fever or chills, abdominal pain, change in bowel movements or change in urination. He states that he has been compliant with his insulin. MD complaint: nausea, vomiting Onset/Timin -: days(s) Description of Vomiting: food contents Severity scale (1-10): 0 Improves with: none Worsens with: none Associated Symptoms: loss of appetite, nausea/vomiting - Related Data Home Medications Medication Instructions Recorded Confirmed Omeprazole 20 mg PO DAILY 06/13/17 06/15/21 Pioglitazone HCl [Actos] 15 mg PO DAILY 10/03/18 06/15/21 Diphenox-Atrop 2.5-0.025 mg 1 tab PO BID PRN 11/17/19 06/15/21 [Lomotil] Insulin Glargine [Lantus Vial] 50 unit SQ DAILY 05/15/20 06/15/21 Rosuvastatin [Crestor] 10 mg PO HS 05/15/20 06/15/21 Phenytoin Sodium Extended 200 mg PO BID 05/10/21 06/15/21 [Dilantin] HYDROcodone/APAP 10-325MG [[place] 1 tab PO TID PRN 06/15/21 06/15/21 10-325] INSULIN ASPART (NovoLOG) [NovoLOG See Protocol SQ TID-W/MEALS 06/15/21 06/15/21 (formulary)] Latanoprost/Pf [Latanoprost 0.005% 1 drop BOTH EYES HS 06/15/21 06/15/21 Eye Drop] Mupirocin 2% Oint [Bactroban 2% 1 applic TOPICAL DAILY 06/15/21 06/15/21 Oint] Triamcinolone 0.5% Cream [Kenalog 1 applic TOPICAL BID 06/15/21 06/15/21 0.5% Cream] Previous Rx's Medication Instructions Recorded traMADol HCL 50 mg PO Q6H PRN 3 Days #12 tab 02/22/21 Acetaminophen Tab [Tylenol] 650 mg PO Q6HR PRN tab 05/14/21 Ondansetron Odt [Zofran ODT] 4 mg PO Q8HR PRN #10 tab 05/30/21 Collagenase [Santyl Ointment] 1 applic TOPICAL DAILY 06/18/21 Ondansetron Odt [Zofran ODT] 4 mg PO Q8HR PRN #10 tab 06/27/21 Metoclopramide [Reglan] 5 mg PO ACHS #16 tab 07/09/21 Allergies Allergy/AdvReac Type Severity Reaction Status Date / Time No Known Allergies Allergy Verified 07/02/21 18:23 Review of Systems ROS Statement: Those systems with pertinent positive or pertinent negative responses have been documented in the HPI. ROS Other: All systems not noted in ROS Statement are negative. Constitutional: Denies: fever, chills Respiratory: Denies: cough, dyspnea Cardiovascular: Denies: chest pain, palpitations Gastrointestinal: Reports: nausea, vomiting. 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 History of Any Multi-Drug Resistant Organisms: MRSA Date of last positivie culture/infection: 12/29/19 MDRO Source:: Left Leg Past Surgical History: Orthopedic Surgery, Tonsillectomy Additional Past Surgical History / Comment(s): 01/23/20 angiogram L leg, 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, colonoscopy, L eye surgery for strabismus. Past Anesthesia/Blood Transfusion Reactions: No Reported Reaction Past Psychological History: Depression Smoking Status: Never smoker Past Alcohol Use History: None Reported Past Drug Use History: None Reported - Past Family History Father Family Medical History: Myocardial Infarction ([place]) Additional Family Medical History / Comment(s): Father of a [place] at the age of 57yrs. Mother Family Medical History: Cancer Additional Family Medical History / Comment(s): Mother from cancer at the age of 61 or 62 . Pt cannot recall type of cancer. Sister(s) Family Medical History: Diabetes Mellitus Additional Family Medical History / Comment(s): Sister had DM type 1. She is . General Exam Limitations: no limitations General appearance: alert, in no apparent distress, cachectic Head exam: Present: atraumatic, normocephalic Eye exam: Present: normal appearance. Absent: scleral icterus, conjunctival injection ENT exam: Present: mucous membranes dry Neck exam: Present: normal inspection Respiratory exam: Present: normal lung sounds bilaterally. Absent: respiratory distress, wheezes, rales, rhonchi, stridor Cardiovascular Exam: Present: regular rate, normal rhythm, normal heart sounds. Absent: systolic murmur, diastolic murmur, rubs, gallop GI/Abdominal exam: Present: soft, normal bowel sounds. Absent: distended, tenderness, guarding, rebound, rigid, mass, pulsatile mass Extremities exam: Present: normal inspection, normal capillary refill. Absent: pedal edema, calf tenderness Back exam: Present: normal inspection. Absent: CVA tenderness (R), CVA tenderness (L) Neurological exam: Present: alert Skin exam: Present: warm, dry, intact, normal color. Absent: rash Course Vital Signs 07/08/21 19:07 Temperature 98.1 F Pulse Rate 109 H Respiratory 18 Rate Blood Pressure 134/79 O2 Sat by Pulse 98 Oximetry Medical Decision Making - Lab Data Result diagrams: 07/09/21 00:26 07/09/21 00:26 Lab Results 07/09/21 07/09/21 Range/Units 00:26 00:26 WBC 7.0 (3.8-10.6) k/uL RBC 4.79 (4.30-5.90) m/uL Hgb 10.5 L (13.0-17.5) gm/dL Hct 35.9 L (39.0-53.0) % MCV 75.0 L (80.0-100.0) fL MCH 21.8 L (25.0-35.0) pg MCHC 29.1 L (31.0-37.0) g/dL RDW 14.4 (11.5-15.5) % Plt Count 445 (150-450) k/uL MPV 7.5 Neutrophils % 64 % Lymphocytes % 23 % Monocytes % 9 % Eosinophils % 1 % Basophils % 1 % Neutrophils # 4.5 (1.3-7.7) k/uL Lymphocytes # 1.6 (1.0-4.8) k/uL Monocytes # 0.6 (0-1.0) k/uL Eosinophils # 0.0 (0-0.7) k/uL Basophils # 0.1 (0-0.2) k/uL Hypochromasia Moderate Microcytosis Slight Sodium 134 L (137-145) mmol/L Potassium 4.5 (3.5-5.1) mmol/L Chloride 97 L (98-107) mmol/L Carbon Dioxide 29 (22-30) mmol/L Anion Gap 8 mmol/L BUN 12 (9-20) mg/dL Creatinine 0.67 (0.66-1.25) mg/dL Est GFR (CKD-EPI)AfAm >90 (>60 ml/min/1.73 sqM) Est GFR (CKD-EPI)NonAf >90 (>60 ml/min/1.73 sqM) Glucose 274 H (74-99) mg/dL Calcium 9.3 (8.4-10.2) mg/dL Total Bilirubin 0.3 (0.2-1.3) mg/dL AST 18 (17-59) U/L ALT 10 (4-49) U/L Alkaline Phosphatase 101 (38-126) U/L Total Protein 7.3 (6.3-8.2) g/dL Albumin 3.8 (3.5-5.0) g/dL Amylase 74 (30-110) U/L Lipase 119 (23-300) U/L Acetone, Qual Negative (Negative) Disposition Clinical Impression: Nausea & vomiting Disposition: HOME SELF-CARE Condition: Good Instructions (If sedation given, give patient instructions): Acute Nausea and Vomiting (ED) Prescriptions: Metoclopramide [Reglan] 5 mg PO ACHS #16 tab Is patient prescribed a controlled substance at d/c from ED?: No Referrals: Helen Chen MD [Primary Care Provider] - 1-2 days
[2021-07-09 00:55] LABS: ALT 10 U/L (4-49); AST 18 U/L (17-59); African American GFR (CKD) >90 (>60 ml/min/1.73 sqM); Albumin 3.8 g/dL (3.5-5.0); Alkaline Phosphatase 101 U/L (38-126); Amylase 74 U/L (30-110); Anion Gap 8 mmol/L; Blood Urea Nitrogen 12 mg/dL (9-20); Calcium 9.3 mg/dL (8.4-10.2); Carbon Dioxide 29 mmol/L (22-30); Chloride 97 mmol/L (98-107); Glucose 274 mg/dL (74-99); Lipase 119 U/L (23-300); Non-African American GFR(CKD) >90 (>60 ml/min/1.73 sqM); Potassium 4.5 mmol/L (3.5-5.1); Sodium 134 mmol/L (137-145); Total Bilirubin 0.3 mg/dL (0.2-1.3); Total Protein 7.3 g/dL (6.3-8.2)
== END 2021-07-09 02:25 | disposition home or self-care (01) ==
LOC: EC 18:59
DX: R11.2 Nausea with vomiting, unspecified (principal); K21.9 Gastro-esophageal reflux disease without esophagitis; E10.40 Type 1 diabetes mellitus with diabetic neuropathy, unspecified; E78.5 Hyperlipidemia, unspecified; Z79.899 Other long term (current) drug therapy; Z79.84 Long term (current) use of oral hypoglycemic drugs; Z79.4 Long term (current) use of insulin
CPT/HCPCS: 99284; 96374; 96361; 36415; 80053; 82150; 82009; 83690; 85025; J2765

== ENCOUNTER 2021-07-14 17:42 | Emergency (ER) | payer OTHER ==
[2021-07-14 18:05] VITALS: TEMP 98.4
[2021-07-14] MEDS ORDERED: SODIUM CHLORIDE 0.9% 1,000 ML IV STA (20:29)
[2021-07-14] MEDS ORDERED: ONDANSETRON 4 MG/2 ML VIAL IVP STA (20:29)
[2021-07-14 20:59] VITALS: RESP 18
[2021-07-14 21:00] LABS: Basophils # (A) 0.1 k/uL (0-0.2); Basophils % (A) 1 %; Eosinophils % (A) 0 %; HCT 35.3 % (39.0-53.0); HGB 10.5 gm/dL (13.0-17.5); Hypochromasia Moderate; Lymphocytes # (A) 1.4 k/uL (1.0-4.8); Lymphocytes % (A) 15 %; MCH 22.4 pg (25.0-35.0); MCHC 29.7 g/dL (31.0-37.0); MCV 75.3 fL (80.0-100.0); Mean Platelet Volume 6.7; Microcytosis Slight; Monocytes # (A) 0.4 k/uL (0-1.0); Monocytes % (A) 5 %; Neutrophils # (A) 7.1 k/uL (1.3-7.7); Neutrophils % (A) 78 %; Platelet Count 487 k/uL (150-450); RBC 4.69 m/uL (4.30-5.90); RDW 14.3 % (11.5-15.5); WBC 9.1 k/uL (3.8-10.6)
[2021-07-14 21:01] LABS: Appearance,Urine Clear (Clear); Bilirubin,Urine Negative (Negative); Blood,Urine Negative (Negative); Color,Urine Light Yellow; Glucose,Urine (UA) 4+ (Negative); Ketones,Urine Negative (Negative); Leukocyte Esterase,Urine Negative (Negative); Nitrite,Urine Negative (Negative); PH, Urine 6.5 (5.0-8.0); Protein,Urine Negative (Negative); Specific Gravity,Urine 1.026 (1.001-1.035); Urobilinogen,Urine <2.0 mg/dL (<2.0)
--- NOTE | 2021-07-14 21:08 | ED ---
General Adult HPI - General Chief complaint: Nausea/Vomiting/Diarrhea Stated complaint: Nausea, Lack of appetite Time Seen by Provider: 07/14/21 20:10 Source: patient Mode of arrival: ambulatory Limitations: no limitations - History of Present Illness Initial comments: This 61-year-old male presents emergency Department with nausea 2 days. Patient states he has had decreased appetite and some generalized abdominal discomfort and nausea for the last 2 days. Patient denies any abdominal pain. Patient states he has had something similar to this in his past and states it went away on its own. Patient denies taking any medications at home for his symptoms. Patient denies any fevers, vomiting, change in bowel or bladder. Patient states he has been drinking lots of water and has been able to eat but states his appetite has decreased slightly. He denies any shortness of breath, chest pain, headache, lightheadedness, dizziness, sore throat, congestion, cough. Patient states he does take his sugar level couple times a day. Patient states he does have a history diabetes mellitus and does take his insulin regularly as directed. Patient states he currently takes 50 units of Lantus in the morning which he did give himself today. He states he is currently prescribed NovoLog before meals 3 times a day but denies taking any today. - Related Data Home Medications Medication Instructions Recorded Confirmed Omeprazole 20 mg PO DAILY 06/13/17 07/14/21 Pioglitazone HCl [Actos] 15 mg PO DAILY 10/03/18 07/14/21 Diphenox-Atrop 2.5-0.025 mg 1 tab PO BID PRN 11/17/19 07/14/21 [Lomotil] Insulin Glargine [Lantus Vial] 60 unit SQ DAILY 05/15/20 07/14/21 Rosuvastatin [Crestor] 10 mg PO HS 05/15/20 07/14/21 Phenytoin Sodium Extended 200 mg PO DIRECTED 05/10/21 07/14/21 [Dilantin] HYDROcodone/APAP 10-325MG [[place] 1 tab PO TID PRN 06/15/21 07/14/21 10-325] Latanoprost/Pf [Latanoprost 0.005% 1 drop BOTH EYES HS 06/15/21 07/14/21 Eye Drop] Phenytoin Sodium Extended 30 mg PO DIRECTED 07/14/21 07/14/21 [Dilantin] Previous Rx's Medication Instructions Recorded traMADol HCL 50 mg PO Q6H PRN 3 Days #12 tab 02/22/21 Acetaminophen Tab [Tylenol] 650 mg PO Q6HR PRN tab 05/14/21 Collagenase [Santyl Ointment] 1 applic TOPICAL DAILY 06/18/21 Metoclopramide [Reglan] 5 mg PO ACHS #16 tab 07/09/21 Allergies Allergy/AdvReac Type Severity Reaction Status Date / Time No Known Allergies Allergy Verified 07/14/21 18:05 Review of Systems ROS Statement: Those systems with pertinent positive or pertinent negative responses have been documented in the HPI. ROS Other: All systems not noted in ROS Statement are negative. Past Medical History Past Medical History: Diabetes Mellitus, Diabetes Mellitus, GERD/Reflux, Hyperlipidemia, Osteoarthritis (OA), Seizure Disorder Additional Past Medical History / Comment(s): IDDM type 1 per pt, bilateral feet neuropathy, pt states current wounds to bilateral feet/goes to [facility]/seen by Dr. Major (rn peritoneal dialysis), past L lower extremity cellulitis with sepsis, L wrist cancerous tumor removed, past seizure about a year ago, arthritis L knee, vertigo, occasional diarrhea. History of Any Multi-Drug Resistant Organisms: MRSA Date of last positivie culture/infection: 12/29/19 MDRO Source:: Left Leg Past Surgical History: Orthopedic Surgery, Tonsillectomy Additional Past Surgical History / Comment(s): 01/23/20 angiogram L leg, 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, colonoscopy, L eye surgery for stra bismus. Past Anesthesia/Blood Transfusion Reactions: No Reported Reaction Past Psychological History: Depression Smoking Status: Never smoker Past Alcohol Use History: None Reported Past Drug Use History: None Reported - Past Family History Father Family Medical History: Myocardial Infarction ([place]) Additional Family Medical History / Comment(s): Father of a [place] at the age of 57yrs. Mother Family Medical History: Cancer Additional Family Medical History / Comment(s): Mother from cancer at the age of 61 or 62 . Pt cannot recall type of cancer. Sister(s) Family Medical History: Diabetes Mellitus Additional Family Medical History / Comment(s): Sister had DM type 1. She is . General Exam Limitations: no limitations General appearance: alert, in no apparent distress, other (Patient with poor hy giene) Head exam: Present: atraumatic, normocephalic, normal inspection Eye exam: Present: normal appearance, PERRL, EOMI. Absent: scleral icterus, c onjunctival injection, periorbital swelling Pupils: Present: normal accommodation ENT exam: Present: normal oropharynx, mucous membranes moist Neck exam: Present: full ROM. Absent: tenderness, meningismus, lymphadenopathy Respiratory exam: Present: normal lung sounds bilaterally. Absent: respiratory distress, wheezes, rales, rhonchi, stridor, chest wall tenderness, accessory muscle use, decreased breath sounds Cardiovascular Exam: Present: regular rate, normal rhythm, normal heart sounds. Absent: systolic murmur, diastolic murmur, rubs, gallop, clicks GI/Abdominal exam: Present: soft, normal bowel sounds. Absent: distended, tenderness, guarding, rebound, rigid Extremities exam: Present: normal inspection, full ROM, normal capillary refill. Absent: tenderness, pedal edema, joint swelling, calf tenderness Back exam: Present: full ROM. Absent: CVA tenderness (R), CVA tenderness (L), p araspinal tenderness, vertebral tenderness Neurological exam: Present: alert, oriented X3, CN II-XII intact Psychiatric exam: Present: normal affect, normal mood Skin exam: Present: warm, dry, intact, normal color. Absent: rash Course Vital Signs 07/14/21 07/14/21 07/14/21 18:03 20:53 23:29 Temperature 98.4 F Pulse Rate 110 H 92 81 Respiratory 20 18 18 Rate Blood Pressure 144/78 156/94 170/96 O2 Sat by Pulse 98 97 97 Oximetry Medical Decision Making - Medical Decision Making This 61-year-old male presents emergency Department with generalized abdominal discomfort and nausea 2 days. Patient was recently seen here in the emergency department with symptoms similar symptoms. Patient with glucose 457 and 4+ glucose in urine. Acetone negative. Patient given 3 L normal saline and glucose decreased from 457 to 304. 5 units of NovoLog given the patient prior to discharge. Patient was able to keep down water and eat kailyn crackers prior to discharge. Instructed patient to take glucose at home as directed and uses insulin as directed. Instructed patient to follow-up with his primary care provider next 1-2 days. Prior to discharge patient stated he felt well without any symptoms. He denied feeling nauseous and stated he had no abdominal pain- patient stated he feels well and as usual. Strict return precautions were discussed with patient and he stated he'll return if any of his symptoms return or if any new, worsening or concerning symptoms arise. Patient verbally agree to plan. Sounds stable condition. Case discussed in detail with my attending, . - Lab Data Result diagrams: 07/14/21 20:42 07/14/21 20:42 Lab Results 07/14/21 07/14/21 07/14/21 Range/Units 20:42 20:42 20:42 WBC 9.1 (3.8-10.6) k/uL RBC 4.69 (4.30-5.90) m/uL Hgb 10.5 L (13.0-17.5) gm/dL Hct 35.3 L (39.0-53.0) % MCV 75.3 L (80.0-100.0) fL MCH 22.4 L (25.0-35.0) pg MCHC 29.7 L (31.0-37.0) g/dL RDW 14.3 (11.5-15.5) % Plt Count 487 H (150-450) k/uL MPV 6.7 Neutrophils % 78 % Lymphocytes % 15 % Monocytes % 5 % Eosinophils % 0 % Basophils % 1 % Neutrophils # 7.1 (1.3-7.7) k/uL Lymphocytes # 1.4 (1.0-4.8) k/uL Monocytes # 0.4 (0-1.0) k/uL Eosinophils # 0.0 (0-0.7) k/uL Basophils # 0.1 (0-0.2) k/uL Hypochromasia Moderate Microcytosis Slight Sodium 133 L (137-145) mmol/L Potassium 5.3 H (3.5-5.1) mmol/L Chloride 98 (98-107) mmol/L Carbon Dioxide 28 (22-30) mmol/L Anion Gap 7 mmol/L BUN 20 (9-20) mg/dL Creatinine 0.70 (0.66-1.25) mg/dL Est GFR (CKD-EPI)AfAm >90 (>60 ml/min/1.73 sqM) Est GFR (CKD-EPI)NonAf >90 (>60 ml/min/1.73 sqM) Glucose 457 H (74-99) mg/dL POC Glucose (mg/dL) (75-99) mg/dL POC Glu [employer]ighter ID Calcium 9.1 (8.4-10.2) mg/dL Total Bilirubin 0.5 (0.2-1.3) mg/dL AST 22 (17-59) U/L ALT 10 (4-49) U/L Alkaline Phosphatase 98 (38-126) U/L Total Protein 7.5 (6.3-8.2) g/dL Albumin 3.9 (3.5-5.0) g/dL Lipase 181 (23-300) U/L Urine Color Light Yellow Urine Appearance Clear (Clear) Urine pH 6.5 (5.0-8.0) Ur Specific [place] 1.026 (1.001-1.035) Urine Protein Negative (Negative) Urine Glucose (UA) 4+ H (Negative) Urine Ketones Negative (Negative) Urine Blood Negative (Negative) Urine Nitrite Negative (Negative) Urine Bilirubin Negative (Negative) Urine Urobilinogen <2.0 (<2.0) mg/dL Ur Leukocyte Esterase Negative (Negative) Acetone, Qual (Negative) Influenza Type A (PCR) (Not Detectd) Influenza Type B (PCR) (Not Detectd) RSV (PCR) (Not Detectd) SARS-CoV-2 (PCR) (Not Detectd) 07/14/21 07/14/21 07/14/21 Range/Units 20:46 21:44 23:16 WBC (3.8-10.6) k/uL RBC (4.30-5.90) m/uL Hgb (13.0-17.5) gm/dL Hct (39.0-53.0) % MCV (80.0-100.0) fL MCH (25.0-35.0) pg MCHC (31.0-37.0) g/dL RDW (11.5-15.5) % Plt Count (150-450) k/uL MPV Neutrophils % % Lymphocytes % % Monocytes % % Eosinophils % % Basophils % % Neutrophils # (1.3-7.7) k/uL Lymphocytes # (1.0-4.8) k/uL Monocytes # (0-1.0) k/uL Eosinophils # (0-0.7) k/uL Basophils # (0-0.2) k/uL Hypochromasia Microcytosis Sodium (137-145) mmol/L Potassium (3.5-5.1) mmol/L Chloride (98-107) mmol/L Carbon Dioxide (22-30) mmol/L Anion Gap mmol/L BUN (9-20) mg/dL Creatinine (0.66-1.25) mg/dL Est GFR (CKD-EPI)AfAm (>60 ml/min/1.73 sqM) Est GFR (CKD-EPI)NonAf (>60 ml/min/1.73 sqM) Glucose (74-99) mg/dL POC Glucose (mg/dL) 304 H (75-99) mg/dL POC Glu [employer]ighter ID Chad Gutierrez Calcium (8.4-10.2) mg/dL Total Bilirubin (0.2-1.3) mg/dL AST (17-59) U/L ALT (4-49) U/L Alkaline Phosphatase (38-126) U/L Total Protein (6.3-8.2) g/dL Albumin (3.5-5.0) g/dL Lipase (23-300) U/L Urine Color Urine Appearance (Clear) Urine pH (5.0-8.0) Ur Specific [place] (1.001-1.035) Urine Protein (Negative) Urine Glucose (UA) (Negative) Urine Ketones (Negative) Urine Blood (Negative) Urine Nitrite (Negative) Urine Bilirubin (Negative) Urine Urobilinogen (<2.0) mg/dL Ur Leukocyte Esterase (Negative) Acetone, Qual Negative (Negative) Influenza Type A (PCR) Not Detected (Not Detectd) Influenza Type B (PCR) Not Detected (Not Detectd) RSV (PCR) Not Detected (Not Detectd) SARS-CoV-2 (PCR) Not Detected (Not Detectd) Disposition Clinical Impression: Hyperglycemia, Nausea Disposition: HOME SELF-CARE Condition: Stable Instructions (If sedation given, give patient instructions): Acute Nausea and Vomiting (ED), Diabetic Hyperglycemia (ED) Is patient prescribed a controlled substance at d/c from ED?: No Referrals: Helen Chen MD [Primary Care Provider] - 1-2 days Time of Disposition: 23:35
[2021-07-14 21:19] LABS: ALT 10 U/L (4-49); African American GFR (CKD) >90 (>60 ml/min/1.73 sqM); Albumin 3.9 g/dL (3.5-5.0); Anion Gap 7 mmol/L; Blood Urea Nitrogen 20 mg/dL (9-20); Calcium 9.1 mg/dL (8.4-10.2); Carbon Dioxide 28 mmol/L (22-30); Chloride 98 mmol/L (98-107); Glucose 457 mg/dL (74-99); Lipase 181 U/L (23-300); Non-African American GFR(CKD) >90 (>60 ml/min/1.73 sqM); Sodium 133 mmol/L (137-145); Total Bilirubin 0.5 mg/dL (0.2-1.3); Total Protein 7.5 g/dL (6.3-8.2)
[2021-07-14 21:21] LABS: AST 22 U/L (17-59); Potassium 5.3 mmol/L (3.5-5.1)
[2021-07-14 21:22] LABS: Alkaline Phosphatase 98 U/L (38-126)
[2021-07-14] MEDS ORDERED: SODIUM CHLORIDE 0.9% 2,000 ML IV STA (21:42)
[2021-07-14] MEDS ORDERED: INSULIN ASPART (NovoLOG) 100 UNIT/ML VIAL SQ ONE (22:29)
[2021-07-14 23:17] LABS: Glucose,Whole Blood 304 mg/dL (75-99)
[2021-07-15 00:39] VITALS: BP 152/86; PULSE 80
== END 2021-07-15 00:39 | disposition home or self-care (01) ==
LOC: EC 17:42
DX: E10.65 Type 1 diabetes mellitus with hyperglycemia (principal); E10.40 Type 1 diabetes mellitus with diabetic neuropathy, unspecified; G40.909 Epilepsy, unspecified, not intractable, without status epilepticus; K21.9 Gastro-esophageal reflux disease without esophagitis; E78.5 Hyperlipidemia, unspecified; Z79.899 Other long term (current) drug therapy; Z20.822 Contact with and (suspected) exposure to COVID-19
CPT/HCPCS: 36415; 80053; 82009; 83690; 85025; 81003; 87636; 99283; 96374; 96361 ×4; J2405

== ENCOUNTER 2021-07-15 04:02 | Emergency (ER) | payer OTHER ==
[2021-07-15 04:16] VITALS: RESP 18
--- NOTE | 2021-07-15 05:08 | XR ---
EXAMINATION TYPE: XR chest 2V DATE OF EXAM: 07/15/2021 COMPARISON: NONE HISTORY: Short of breath TECHNIQUE: 2 views FINDINGS: Heart and mediastinum are normal. Lungs are clear. Diaphragm is normal. Bony thorax appears normal. IMPRESSION: Normal chest. No change.
[2021-07-15 06:00] LABS: Basophils # (A) 0.1 k/uL (0-0.2); Basophils % (A) 1 %; Eosinophils # (A) 0.1 k/uL (0-0.7); Eosinophils % (A) 1 %; HGB 10.2 gm/dL (13.0-17.5); Hypochromasia Marked; Lymphocytes # (A) 1.6 k/uL (1.0-4.8); Lymphocytes % (A) 18 %; MCHC 29.1 g/dL (31.0-37.0); MCV 75.6 fL (80.0-100.0); Mean Platelet Volume 7.3; Microcytosis Slight; Monocytes # (A) 0.4 k/uL (0-1.0); Monocytes % (A) 4 %; Neutrophils % (A) 75 %; Platelet Count 551 k/uL (150-450); RBC 4.63 m/uL (4.30-5.90); RDW 14.4 % (11.5-15.5); WBC 9.3 k/uL (3.8-10.6)
[2021-07-15 06:01] LABS: African American GFR (CKD) >90 (>60 ml/min/1.73 sqM); Anion Gap 11 mmol/L; Blood Urea Nitrogen 13 mg/dL (9-20); Calcium 8.8 mg/dL (8.4-10.2); Carbon Dioxide 27 mmol/L (22-30); Chloride 99 mmol/L (98-107); Glucose 261 mg/dL (74-99); Non-African American GFR(CKD) >90 (>60 ml/min/1.73 sqM); Potassium 4.1 mmol/L (3.5-5.1); Sodium 137 mmol/L (137-145)
--- NOTE | 2021-07-15 07:19 | ED ---
SOB HPI - General Chief Complaint: Shortness of Breath Stated Complaint: Revisit-SOB Time Seen by Provider: 07/15/21 04:45 Source: patient Mode of arrival: ambulatory Limitations: no limitations - History of Present Illness MD Complaint: shortness of breath -: hour(s) Severity: mild Severity scale (1-10): 0 Consistency: constant Improves With: nothing Worsens With: nothing Treatments Prior to Arrival: none - Related Data Home Medications Medication Instructions Recorded Confirmed Omeprazole 20 mg PO DAILY 06/13/17 07/14/21 Pioglitazone HCl [Actos] 15 mg PO DAILY 10/03/18 07/14/21 Diphenox-Atrop 2.5-0.025 mg 1 tab PO BID PRN 11/17/19 07/14/21 [Lomotil] Insulin Glargine [Lantus Vial] 60 unit SQ DAILY 05/15/20 07/14/21 Rosuvastatin [Crestor] 10 mg PO HS 05/15/20 07/14/21 Phenytoin Sodium Extended 200 mg PO DIRECTED 05/10/21 07/14/21 [Dilantin] HYDROcodone/APAP 10-325MG [[place] 1 tab PO TID PRN 06/15/21 07/14/21 10-325] Latanoprost/Pf [Latanoprost 0.005% 1 drop BOTH EYES HS 06/15/21 07/14/21 Eye Drop] Phenytoin Sodium Extended 30 mg PO DIRECTED 07/14/21 07/14/21 [Dilantin] Previous Rx's Medication Instructions Recorded traMADol HCL 50 mg PO Q6H PRN 3 Days #12 tab 02/22/21 Acetaminophen Tab [Tylenol] 650 mg PO Q6HR PRN tab 05/14/21 Collagenase [Santyl Ointment] 1 applic TOPICAL DAILY 06/18/21 Metoclopramide [Reglan] 5 mg PO ACHS #16 tab 07/09/21 Allergies Allergy/AdvReac Type Severity Reaction Status Date / Time No Known Allergies Allergy Verified 07/15/21 04:16 Review of Systems ROS Statement: Those systems with pertinent positive or pertinent negative responses have been documented in the HPI. ROS Other: All systems not noted in ROS Statement are negative. Constitutional: Denies: fever, chills Respiratory: Reports: dyspnea. 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 History of Any Multi-Drug Resistant Organisms: MRSA Date of last positivie culture/infection: 12/29/19 MDRO Source:: Left Leg Past Surgical History: Orthopedic Surgery, Tonsillectomy Additional Past Surgical History / Comment(s): 01/23/20 angiogram L leg, c ancerous tumor removed from left wrist, colonoscopy, L eye surgery for strabismus. Past Anesthesia/Blood Transfusion Reactions: No Reported Reaction Past Psychological History: Depression Smoking Status: Never smoker Past Alcohol Use History: None Reported Past Drug Use History: None Reported - Past Family History Father Family Medical History: Myocardial Infarction ([place]) Additional Family Medical History / Comment(s): Father of a [place] at the age of 57yrs. Mother Family Medical History: Cancer Additional Family Medical History / Comment(s): Mother from cancer at the age of 61 or 62 . Pt cannot recall type of cancer. Sister(s) Family Medical History: Diabetes Mellitus Additional Family Medical History / Comment(s): Sister had DM type 1. She is . General Exam Limitations: no limitations General appearance: alert, in no apparent distress Head exam: Present: atraumatic, normocephalic Eye exam: Present: normal appearance. Absent: scleral icterus, conjunctival injection ENT exam: Present: normal oropharynx Neck exam: Present: normal inspection Respiratory exam: Present: normal lung sounds bilaterally. Absent: respiratory distress, wheezes, rales, rhonchi, stridor, accessory muscle use Cardiovascular Exam: Present: regular rate, normal rhythm, normal heart sounds. Absent: systolic murmur, diastolic murmur, rubs, gallop GI/Abdominal exam: Present: soft. Absent: distended, tenderness, guarding, rebound, rigid, mass Extremities exam: Present: normal inspection, normal capillary refill. Absent: pedal edema, calf tenderness Back exam: Present: normal inspection Neurological exam: Present: alert Skin exam: Present: warm, dry, intact, normal color. Absent: rash Course Vital Signs 07/15/21 07/15/21 07/15/21 04:14 04:28 05:33 Temperature 97.9 F Pulse Rate 106 H 78 91 Respiratory 18 18 18 Rate Blood Pressure 137/75 140/88 139/79 O2 Sat by Pulse 100 99 97 Oximetry 07/15/21 07/15/21 06:48 07:26 Temperature 98.1 F Pulse Rate 95 91 Respiratory 18 18 Rate Blood Pressure 151/91 133/80 O2 Sat by Pulse 96 96 Oximetry Medical Decision Making - Medical Decision Making Patient's 61-year-old man with history of diabetes today for poorly controlled diabetes. Patient returned with some shortness of breath. Workup here unremarkable and patient is feeling somewhat better. Will have close follow-up, further care and return parameters discussed. - Lab Data Result diagrams: 07/15/21 05:32 07/15/21 05:32 Lab Results 07/15/21 07/15/21 07/15/21 Range/Units 05:32 05:32 05:32 WBC 9.3 (3.8-10.6) k/uL RBC 4.63 (4.30-5.90) m/uL Hgb 10.2 L (13.0-17.5) gm/dL Hct 35.0 L (39.0-53.0) % MCV 75.6 L (80.0-100.0) fL MCH 22.0 L (25.0-35.0) pg MCHC 29.1 L (31.0-37.0) g/dL RDW 14.4 (11.5-15.5) % Plt Count 551 H (150-450) k/uL MPV 7.3 Neutrophils % 75 % Lymphocytes % 18 % Monocytes % 4 % Eosinophils % 1 % Basophils % 1 % Neutrophils # 7.0 (1.3-7.7) k/uL Lymphocytes # 1.6 (1.0-4.8) k/uL Monocytes # 0.4 (0-1.0) k/uL Eosinophils # 0.1 (0-0.7) k/uL Basophils # 0.1 (0-0.2) k/uL Hypochromasia Marked Microcytosis Slight Sodium 137 (137-145) mmol/L Potassium 4.1 (3.5-5.1) mmol/L Chloride 99 (98-107) mmol/L Carbon Dioxide 27 (22-30) mmol/L Anion Gap 11 mmol/L BUN 13 (9-20) mg/dL Creatinine 0.70 (0.66-1.25) mg/dL Est GFR (CKD-EPI)AfAm >90 (>60 ml/min/1.73 sqM) Est GFR (CKD-EPI)NonAf >90 (>60 ml/min/1.73 sqM) Glucose 261 H (74-99) mg/dL Calcium 8.8 (8.4-10.2) mg/dL Troponin I <0.012 (0.000-0.034) ng/mL NT-Pro-B Natriuret Pep pg/mL 07/15/21 Range/Units 05:32 WBC (3.8-10.6) k/uL RBC (4.30-5.90) m/uL Hgb (13.0-17.5) gm/dL Hct (39.0-53.0) % MCV (80.0-100.0) fL MCH (25.0-35.0) pg MCHC (31.0-37.0) g/dL RDW (11.5-15.5) % Plt Count (150-450) k/uL MPV Neutrophils % % Lymphocytes % % Monocytes % % Eosinophils % % Basophils % % Neutrophils # (1.3-7.7) k/uL Lymphocytes # (1.0-4.8) k/uL Monocytes # (0-1.0) k/uL Eosinophils # (0-0.7) k/uL Basophils # (0-0.2) k/uL Hypochromasia Microcytosis Sodium (137-145) mmol/L Potassium (3.5-5.1) mmol/L Chloride (98-107) mmol/L Carbon Dioxide (22-30) mmol/L Anion Gap mmol/L BUN (9-20) mg/dL Creatinine (0.66-1.25) mg/dL Est GFR (CKD-EPI)AfAm (>60 ml/min/1.73 sqM) Est GFR (CKD-EPI)NonAf (>60 ml/min/1.73 sqM) Glucose (74-99) mg/dL Calcium (8.4-10.2) mg/dL Troponin I (0.000-0.034) ng/mL NT-Pro-B Natriuret Pep 46 pg/mL Disposition Clinical Impression: Dyspnea Disposition: HOME SELF-CARE Condition: Good Is patient prescribed a controlled substance at d/c from ED?: No Referrals: Helen Chen MD [Primary Care Provider] - 1-2 days
[2021-07-15 07:27] VITALS: BP 133/80; PULSE 91; TEMP 98.1
== END 2021-07-15 07:27 | disposition home or self-care (01) ==
LOC: EC 04:02
DX: R06.00 Dyspnea, unspecified (principal); E10.40 Type 1 diabetes mellitus with diabetic neuropathy, unspecified; E78.5 Hyperlipidemia, unspecified; K21.9 Gastro-esophageal reflux disease without esophagitis; G40.909 Epilepsy, unspecified, not intractable, without status epilepticus; M19.90 Unspecified osteoarthritis, unspecified site; Z79.899 Other long term (current) drug therapy
CPT/HCPCS: 36415; 71046; 80048; 83880; 84484; 85025; 99285

== ENCOUNTER 2021-07-17 18:15 | Observation (INO) | payer OTHER ==
[2021-07-17] MEDS ORDERED: SODIUM CHLORIDE 0.9% 500 ML 500 ML IV ONE (20:29)
[2021-07-17 20:40] LABS: Basophils # (A) 0.1 k/uL (0-0.2); Basophils % (A) 1 %; Eosinophils % (A) 1 %; HCT 38.8 % (39.0-53.0); HGB 11.4 gm/dL (13.0-17.5); Hypochromasia Marked; Lymphocytes # (A) 1.4 k/uL (1.0-4.8); Lymphocytes % (A) 19 %; MCH 22.4 pg (25.0-35.0); MCHC 29.3 g/dL (31.0-37.0); MCV 76.3 fL (80.0-100.0); Mean Platelet Volume 6.6; Microcytosis Slight; Monocytes # (A) 0.4 k/uL (0-1.0); Monocytes % (A) 5 %; Neutrophils # (A) 5.1 k/uL (1.3-7.7); Neutrophils % (A) 72 %; Platelet Count 621 k/uL (150-450); RBC 5.08 m/uL (4.30-5.90); RDW 14.9 % (11.5-15.5); WBC 7.1 k/uL (3.8-10.6)
--- NOTE | 2021-07-17 20:45 | XR ---
EXAMINATION TYPE: XR chest 2V DATE OF EXAM: 07/17/2021 COMPARISON: 07/15/2021 HISTORY: Short of breath TECHNIQUE: FINDINGS: Heart is normal. Lungs are clear of infiltrate. No heart failure seen. There are no hilar masses. Bon y thorax is intact. There are chest leads. IMPRESSION: Normal chest. No change.
[2021-07-17 20:52] LABS: INR 0.9 (<1.2); Partial Thromboplastin Time 24.8 sec (22.0-30.0); Prothrombin Time 9.6 sec (9.0-12.0)
[2021-07-17 20:57] LABS: ALT 10 U/L (4-49); AST 21 U/L (17-59); African American GFR (CKD) >90 (>60 ml/min/1.73 sqM); Alkaline Phosphatase 112 U/L (38-126); Anion Gap 6 mmol/L; Blood Urea Nitrogen 15 mg/dL (9-20); Calcium 9.1 mg/dL (8.4-10.2); Carbon Dioxide 30 mmol/L (22-30); Chloride 95 mmol/L (98-107); Glucose 421 mg/dL (74-99); Magnesium 2.1 mg/dL (1.6-2.3); Non-African American GFR(CKD) >90 (>60 ml/min/1.73 sqM); Potassium 4.4 mmol/L (3.5-5.1); Sodium 131 mmol/L (137-145); Total Bilirubin 0.4 mg/dL (0.2-1.3); Total Protein 7.2 g/dL (6.3-8.2)
--- NOTE | 2021-07-17 21:28 | ED ---
General Adult HPI - General Chief complaint: Chest Pain Stated complaint: JUSTO Time Seen by Provider: 07/17/21 20:27 Source: patient, RN notes reviewed, old records reviewed Mode of arrival: wheelchair Limitations: no limitations - History of Present Illness Initial comments: 61-year-old male presenting for evaluation of chest pain and difficulty breathi ng. Patient's symptoms 7 present for the past 2 days. He did not have any fever. No significant cough. No abdominal pain. No nausea or vomiting. No lower extremity pain or swelling. Pain does not radiate, center of his chest. No associated diaphoresis. - Related Data Home Medications Medication Instructions Recorded Confirmed Omeprazole 20 mg PO DAILY 06/13/17 07/14/21 Pioglitazone HCl [Actos] 15 mg PO DAILY 10/03/18 07/14/21 Diphenox-Atrop 2.5-0.025 mg 1 tab PO BID PRN 11/17/19 07/14/21 [Lomotil] Insulin Glargine [Lantus Vial] 60 unit SQ DAILY 05/15/20 07/14/21 Rosuvastatin [Crestor] 10 mg PO HS 05/15/20 07/14/21 Phenytoin Sodium Extended 200 mg PO DIRECTED 05/10/21 07/14/21 [Dilantin] HYDROcodone/APAP 10-325MG [[place] 1 tab PO TID PRN 06/15/21 07/14/21 10-325] Latanoprost/Pf [Latanoprost 0.005% 1 drop BOTH EYES HS 06/15/21 07/14/21 Eye Drop] Phenytoin Sodium Extended 30 mg PO DIRECTED 07/14/21 07/14/21 [Dilantin] Previous Rx's Medication Instructions Recorded traMADol HCL 50 mg PO Q6H PRN 3 Days #12 tab 02/22/21 Acetaminophen Tab [Tylenol] 650 mg PO Q6HR PRN tab 05/14/21 Collagenase [Santyl Ointment] 1 applic TOPICAL DAILY 06/18/21 Metoclopramide [Reglan] 5 mg PO ACHS #16 tab 07/09/21 Allergies Allergy/AdvReac Type Severity Reaction Status Date / Time No Known Allergies Allergy Verified 07/17/21 19:57 Review of Systems ROS Statement: Those systems with pertinent positive or pertinent negative responses have been documented in the HPI. ROS Other: All systems not noted in ROS Statement are negative. Past Medical History Past Medical History: Diabetes Mellitus, Diabetes Mellitus, GERD/Reflux, Hyperli pidemia, Osteoarthritis (OA), Seizure Disorder Additional Past Medical History / Comment(s): IDDM type 1 per pt, bilateral feet neuropathy, pt states current wounds to bilateral feet/goes to 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 History of Any Multi-Drug Resistant Organisms: MRSA Date of last positivie culture/infection: 12/29/19 MDRO Source:: Left Leg Past Surgical History: Orthopedic Surgery, Tonsillectomy Additional Past Surgical History / Comment(s): 01/23/20 angiogram L leg, cancero us tumor removed from left wrist, colonoscopy, L eye surgery for strabismus. Past Anesthesia/Blood Transfusion Reactions: No Reported Reaction Past Psychological History: Depression Smoking Status: Never smoker Past Alcohol Use History: None Reported Past Drug Use History: None Reported - Past Family History Father Family Medical History: Myocardial Infarction ([place]) Additional Family Medical History / Comment(s): Father of a [place] at the age of 57yrs. Mother Family Medical History: Cancer Additional Family Medical History / Comment(s): Mother from cancer at the age of 61 or 62 . Pt cannot recall type of cancer. Sister(s) Family Medical History: Diabetes Mellitus Additional Family Medical History / Comment(s): Sister had DM type 1. She is . General Exam Limitations: no limitations General appearance: alert, in no apparent distress, cachectic Head exam: Present: atraumatic, normocephalic Eye exam: Present: normal appearance, PERRL ENT exam: Present: normal exam Neck exam: Present: normal inspection. Absent: tenderness, meningismus Respiratory exam: Present: normal lung sounds bilaterally. Absent: respiratory distress, wheezes Cardiovascular Exam: Present: normal rhythm, tachycardia GI/Abdominal exam: Present: soft. Absent: distended, tenderness, guarding Extremities exam: Present: normal inspection, normal capillary refill. Absent: pedal edema Neurological exam: Present: alert, oriented X3, CN II-XII intact. Absent: motor sensory deficit Psychiatric exam: Present: normal affect, normal mood Skin exam: Present: warm, dry, intact. Absent: cyanosis, diaphoretic Course Vital Signs 07/17/21 07/17/21 07/17/21 19:55 20:27 21:19 Temperature 97.9 F Pulse Rate 113 H 100 93 Respiratory 18 15 18 Rate Blood Pressure 116/71 153/79 131/85 O2 Sat by Pulse 100 99 98 Oximetry EKG Findings - EKG Comments: EKG Findings:: Sinus tachycardia, rate of 104, MO interval 123, QRS duration 92, QTC [address] segment elevation. Medical Decision Making - Medical Decision Making 61-year-old male presents for evaluation of central chest pain which is present for the past 24 hours. EKG is sinus tachycardia without ST segment elevation. Chest pain is clear. Patient has a stable anemia, normal white blood cell count, he has an elevated blood sugar without signs of DKA. His initial troponin is negative. He does appear dehydrated. He started on IV fluids and given his dose of insulin. He will be admitted for hydration and serial cardiac enzymes. Primary care physician has been Dr Gustavo valle - Lab Data Result diagrams: 07/17/21 20:25 07/17/21 20:25 Lab Results 07/17/21 07/17/21 07/17/21 Range/Units 20:25 20:25 20:25 WBC 7.1 (3.8-10.6) k/uL RBC 5.08 (4.30-5.90) m/uL Hgb 11.4 L (13.0-17.5) gm/dL Hct 38.8 L (39.0-53.0) % MCV 76.3 L (80.0-100.0) fL MCH 22.4 L (25.0-35.0) pg MCHC 29.3 L (31.0-37.0) g/dL RDW 14.9 (11.5-15.5) % Plt Count 621 H (150-450) k/uL MPV 6.6 Neutrophils % 72 % Lymphocytes % 19 % Monocytes % 5 % Eosinophils % 1 % Basophils % 1 % Neutrophils # 5.1 (1.3-7.7) k/uL Lymphocytes # 1.4 (1.0-4.8) k/uL Monocytes # 0.4 (0-1.0) k/uL Eosinophils # 0.0 (0-0.7) k/uL Basophils # 0.1 (0-0.2) k/uL Hypochromasia Marked Microcytosis Slight PT 9.6 (9.0-12.0) sec INR 0.9 (<1.2) APTT 24.8 (22.0-30.0) sec D-Dimer 0.33 (<0.60) mg/L FEU Sodium 131 L (137-145) mmol/L Potassium 4.4 (3.5-5.1) mmol/L Chloride 95 L (98-107) mmol/L Carbon Dioxide 30 (22-30) mmol/L Anion Gap 6 mmol/L BUN 15 (9-20) mg/dL Creatinine 0.90 (0.66-1.25) mg/dL Est GFR (CKD-EPI)AfAm >90 (>60 ml/min/1.73 sqM) Est GFR (CKD-EPI)NonAf >90 (>60 ml/min/1.73 sqM) Glucose 421 H (74-99) mg/dL Calcium 9.1 (8.4-10.2) mg/dL Magnesium 2.1 (1.6-2.3) mg/dL Total Bilirubin 0.4 (0.2-1.3) mg/dL AST 21 (17-59) U/L ALT 10 (4-49) U/L Alkaline Phosphatase 112 (38-126) U/L Troponin I (0.000-0.034) ng/mL Total Protein 7.2 (6.3-8.2) g/dL Albumin 4.0 (3.5-5.0) g/dL 07/17/21 Range/Units 20:25 WBC (3.8-10.6) k/uL RBC (4.30-5.90) m/uL Hgb (13.0-17.5) gm/dL Hct (39.0-53.0) % MCV (80.0-100.0) fL MCH (25.0-35.0) pg MCHC (31.0-37.0) g/dL RDW (11.5-15.5) % Plt Count (150-450) k/uL MPV Neutrophils % % Lymphocytes % % Monocytes % % Eosinophils % % Basophils % % Neutrophils # (1.3-7.7) k/uL Lymphocytes # (1.0-4.8) k/uL Monocytes # (0-1.0) k/uL Eosinophils # (0-0.7) k/uL Basophils # (0-0.2) k/uL Hypochromasia Microcytosis PT (9.0-12.0) sec INR (<1.2) APTT (22.0-30.0) sec D-Dimer (<0.60) mg/L FEU Sodium (137-145) mmol/L Potassium (3.5-5.1) mmol/L Chloride (98-107) mmol/L Carbon Dioxide (22-30) mmol/L Anion Gap mmol/L BUN (9-20) mg/dL Creatinine (0.66-1.25) mg/dL Est GFR (CKD-EPI)AfAm (>60 ml/min/1.73 sqM) Est GFR (CKD-EPI)NonAf (>60 ml/min/1.73 sqM) Glucose (74-99) mg/dL Calcium (8.4-10.2) mg/dL Magnesium (1.6-2.3) mg/dL Total Bilirubin (0.2-1.3) mg/dL AST (17-59) U/L ALT (4-49) U/L Alkaline Phosphatase (38-126) U/L Troponin I <0.012 (0.000-0.034) ng/mL Total Protein (6.3-8.2) g/dL Albumin (3.5-5.0) g/dL Disposition Clinical Impression: Anemia, Chest pain, Dehydration Disposition: ADMITTED IP TO THIS HOSP Condition: Stable Is patient prescribed a controlled substance at d/c from ED?: No Referrals: Helen Chen MD [Primary Care Provider] - 1-2 days Time of Disposition: 21:55
[2021-07-17] MEDS ORDERED: NALOXONE 0.4 MG/ML 1 ML VIAL IV PRN (21:44)
[2021-07-17] MEDS ORDERED: ACETAMINOPHEN TAB 325 MG TAB PO PRN (21:44)
[2021-07-17] MEDS ORDERED: HYDROcodone/APAP 10-325MG 1 EACH TAB PO PRN (21:45)
[2021-07-17] MEDS: INSULIN DETEMIR (LEVEMIR) 100 UNIT/ML SYR SQ SCH (22:20)
[2021-07-17] MEDS: SODIUM CHLORIDE 0.9% 1,000 ML IV SCH (22:22)
[2021-07-18] MEDS ORDERED: ONDANSETRON 4 MG/2 ML VIAL IVP STA (02:45)
[2021-07-18] MEDS ORDERED: LORazepam 2 MG/ML INJ IV STA (02:45)
[2021-07-18 03:27] LABS: Glucose,Whole Blood 48 mg/dL (75-99)
[2021-07-18] MEDS ORDERED: DEXTROSE 50% SYRINGE 50 ML IVP STA ×2 (03:27→05:40)
[2021-07-18 04:18] LABS: Glucose,Whole Blood 113 mg/dL (75-99)
[2021-07-18 05:37] LABS: Glucose,Whole Blood 43 mg/dL (75-99)
[2021-07-18] MEDS ORDERED: DEXTROSE 5%-0.45% NACL 1,000 ML IV SCH (05:45)
[2021-07-18 05:56] LABS: Glucose,Whole Blood 180 mg/dL (75-99)
[2021-07-18 07:11] LABS: Glucose,Whole Blood 106 mg/dL (75-99)
[2021-07-18 07:31] LABS: Glucose,Whole Blood 243 mg/dL (75-99)
[2021-07-18 07:39] VITALS: RESP 20
[2021-07-18] MEDS ORDERED: DIPHENOX-ATROP 2.5-0.025 MG 1 EACH TAB PO PRN (09:53)
[2021-07-18] MEDS ORDERED: ACETAMINOPHEN TAB 325 MG TAB PO PRN (09:53)
[2021-07-18] MEDS ORDERED: Acetaminophen-Codeine 300-30mg TAB PO PRN (09:53)
[2021-07-18] MEDS ORDERED: NON FORMULARY DRUG (Phenytoin Sodium Extended [Dilantin] 30 MG Capsule) PO SCH (10:00)
[2021-07-18] MEDS ORDERED: PIOGLITAZONE 15 MG TAB PO SCH (10:00)
[2021-07-18] MEDS ORDERED: PANTOPRAZOLE 40 MG TABLET PO SCH (10:00)
[2021-07-18 11:01] LABS: Basophils % (A) 0 %; Eosinophils # (A) 0.1 k/uL (0-0.7); Eosinophils % (A) 1 %; HCT 36.1 % (39.0-53.0); HGB 10.6 gm/dL (13.0-17.5); Hypochromasia Marked; Lymphocytes # (A) 1.3 k/uL (1.0-4.8); Lymphocytes % (A) 19 %; MCH 22.1 pg (25.0-35.0); MCHC 29.3 g/dL (31.0-37.0); MCV 75.6 fL (80.0-100.0); Mean Platelet Volume 6.8; Microcytosis Slight; Monocytes # (A) 0.3 k/uL (0-1.0); Monocytes % (A) 4 %; Neutrophils # (A) 5.4 k/uL (1.3-7.7); Neutrophils % (A) 75 %; Platelet Count 574 k/uL (150-450); RBC 4.78 m/uL (4.30-5.90); RDW 14.7 % (11.5-15.5); WBC 7.2 k/uL (3.8-10.6)
[2021-07-18 11:11] LABS: ALT 8 U/L (4-49); AST 20 U/L (17-59); African American GFR (CKD) >90 (>60 ml/min/1.73 sqM); Albumin 3.7 g/dL (3.5-5.0); Albumin/Globulin Ratio 1.1; Alkaline Phosphatase 88 U/L (38-126); Anion Gap 9 mmol/L; Blood Urea Nitrogen 15 mg/dL (9-20); Calcium 9.1 mg/dL (8.4-10.2); Carbon Dioxide 24 mmol/L (22-30); Chloride 105 mmol/L (98-107); Globulin 3.3 g/dL; Glucose 77 mg/dL (74-99); Non-African American GFR(CKD) >90 (>60 ml/min/1.73 sqM); Potassium 4.8 mmol/L (3.5-5.1); Sodium 138 mmol/L (137-145); Total Bilirubin 0.3 mg/dL (0.2-1.3)
--- NOTE | 2021-07-18 11:24 | P.CRDCN ---
History of Present Illness History of present illness: HISTORY OF PRESENT ILLNESS: This is a 61-year-old male with a past medical history significant for diabetes, chronic lower extremity wounds, seizure disorder, and hyperlipidemia. 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 We have been asked to see the patient in consultation for chest pain. Patient examined at the bedside. Patient states he has been having chest pain for the past 2 weeks. He states the pain does not radiate anywhere. He denied any nausea or vomiting. Denied any dizziness or lightheadedness. Denied any diaphoresis. He states the pain has been ranging the middle of his chest and has been intermittent. He states nothing made the pain better or worse; it was just random. He denied worsening chest pain with chest wall palpation or deep inspiration. He states that yesterday he began to feel short of breath as well which prompted him come to the emergency room, at time of my examination, the patient denies any chest pain or pressure. The patient does report a family history of CAD and states his dad had a heart attack when he was 57. * EKG reveals sinus mechanism with signs of early repolarization; similar to previous EKG * Chest xray negative for acute process * Laboratory data: WBC 7.1. Hemoglobin 11.4. Platelet count 621. D-dimer 0.33. Sodium 131. BUN 16. Creatinine 0.90. Troponin negative 3. * Current home cardiac medications include Crestor 10 mg at night * Most recent echocardiogram obtained in October 2020 revealed ejection fraction 50-55% with mild TR * Patient underwent a been having chest in October 2020 which was negative for ischemia REVIEW OF SYSTEMS: At the time of my exam: CONSTITUTIONAL: Denies fever or chills. HEENT: Denies blurred vision, vision changes, or eye pain. Denies hemoptysis CARDIOVASCULAR: Denies chest pain. Denies orthopnea. Denies PND. Denies pal pitations RESPIRATORY: Denies shortness of breath. GASTROINTESTINAL: Denies abdominal pain. Denies nausea or vomiting. HEMATOLOGIC: Denies bleeding disorders. GENITOURINARY: Denies any blood in urine. SKIN: Denies pruitis. Denies rash. PHYSICAL EXAM: VITAL SIGNS: Reviewed. GENERAL: Well-developed in no acute distress. HEENT: Head is normocephalic. Pupils are equal, round. Sclerae anicteric. Mucous membranes of the mouth are moist. Neck supple. No JVD or thyromegaly LUNGS: Respirations even and unlabored. Lungs essentially clear to auscultation bilaterally. HEART: Regular rate and rhythm. S1 and S2 heard. ABDOMEN: Soft. Nondistended. Nontender. EXTREMITIES: Normal range of motion. No clubbing or cyanosis. Peripheral pulses intact. No lower extremity edema NEUROLOGIC: Awake and alert. Oriented x 3. ASSESSMENT: Chest pain, atypical, 2 weeks, troponin negative 3 Diabetes Hyperglycemia Chronic lower extremity wounds Hyperlipidemia Seizure disorder PLAN: An acute coronary event has been ruled out Resume home cardiac medications including Crestor Obtain 2-D echo to assess cardiac structure and function It is noted that the patient had a normal stress test in October 2020 Further recommendations pending patient course Nurse practitioner note has been reviewed by physician. Signing provider agrees with the documented findings, assessment, and plan of care. 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 History of Any Multi-Drug Resistant Organisms: MRSA Date of last positivie culture/infection: 12/29/19 MDRO Source:: Left Leg Past Surgical History: Orthopedic Surgery, Tonsillectomy Additional Past Surgical History / Comment(s): 01/23/20 angiogram L leg, 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, colonoscopy, L eye surgery for strabismus. Past Anesthesia/Blood Transfusion Reactions: No Reported Reaction Past Psychological History: Depression Smoking Status: Never smoker Past Alcohol Use History: None Reported Past Drug Use History: None Reported - Past Family History Father Family Medical History: Myocardial Infarction ([place]) Additional Family Medical History / Comment(s): Father of a [place] at the age of 57yrs. Mother Family Medical History: Cancer Additional Family Medical History / Comment(s): Mother from cancer at the age of 61 or 62 . Pt cannot recall type of cancer. Sister(s) Family Medical History: Diabetes Mellitus Additional Family Medical History / Comment(s): Sister had DM type 1. She is . Medications and Allergies Home Medications Medication Instructions Recorded Confirmed Type Omeprazole 20 mg PO DAILY 06/13/17 07/17/21 History Pioglitazone HCl [Actos] 15 mg PO DAILY 10/03/18 07/17/21 History Diphenox-Atrop 2.5-0.025 mg 1 tab PO BID PRN 11/17/19 07/17/21 History [Lomotil] Insulin Glargine [Lantus Vial] 60 unit SQ DAILY 05/15/20 07/17/21 History Rosuvastatin [Crestor] 10 mg PO HS 05/15/20 07/17/21 History traMADol HCL 50 mg PO Q6H PRN 3 Days #12 tab 02/22/21 07/17/21 Rx HYDROcodone/APAP 10-325MG [[place] 1 tab PO TID PRN 06/15/21 07/17/21 History 10-325] Latanoprost/Pf [Latanoprost 0.005% 1 drop BOTH EYES HS 06/15/21 07/17/21 History Eye Drop] Phenytoin Sodium Extended 60 mg PO BID 07/14/21 07/17/21 History [Dilantin] Acetaminophen Tab [Tylenol] 325 mg PO Q6HR PRN 07/17/21 07/17/21 History Acetaminophen-Codeine 300-30mg 1 tab PO TID PRN 07/17/21 07/17/21 History [Tylenol w/codeine #3] Ondansetron Odt [Zofran Odt] 4 mg PO Q8H PRN 07/17/21 07/17/21 History Allergies Allergy/AdvReac Type Severity Reaction Status Date / Time No Known Allergies Allergy Verified 07/17/21 22:40 Physical Exam Vitals: Vital Signs Temp Pulse Pulse Resp BP BP Pulse Ox 07/18/21 07:00 98.4 F 93 20 139/77 98 07/18/21 05:35 93 16 128/44 100 07/18/21 02:56 99 18 141/87 100 07/17/21 22:22 93 20 141/87 99 07/17/21 21:19 93 18 131/85 98 07/17/21 20:27 100 15 153/79 99 07/17/21 19:55 97.9 F 113 H 18 116/71 100 Intake and Output 07/17/21 07/18/21 07/18/21 22:59 06:59 14:59 Intake Total 180 Balance 180 Intake: Oral 180 Other: Weight 43.998 kg Results 07/18/21 10:24 07/18/21 10:24 Cardiac Enzymes 07/17/21 07/17/21 07/17/21 Range/Units 20:25 20:25 23:10 AST 21 (17-59) U/L Troponin I <0.012 <0.012 (0.000-0.034) ng/mL 07/18/21 Range/Units 02:36 AST (17-59) U/L Troponin I <0.012 (0.000-0.034) ng/mL Coagulation 07/17/21 Range/Units 20:25 PT 9.6 (9.0-12.0) sec APTT 24.8 (22.0-30.0) sec CBC 07/17/21 Range/Units 20:25 WBC 7.1 (3.8-10.6) k/uL RBC 5.08 (4.30-5.90) m/uL Hgb 11.4 L (13.0-17.5) gm/dL Hct 38.8 L (39.0-53.0) % Plt Count 621 H (150-450) k/uL Comprehensive Metabolic Panel 07/17/21 Range/Units 20:25 Sodium 131 L (137-145) mmol/L Potassium 4.4 (3.5-5.1) mmol/L Chloride 95 L (98-107) mmol/L Carbon Dioxide 30 (22-30) mmol/L BUN 15 (9-20) mg/dL Creatinine 0.90 (0.66-1.25) mg/dL Glucose 421 H (74-99) mg/dL Calcium 9.1 (8.4-10.2) mg/dL AST 21 (17-59) U/L ALT 10 (4-49) U/L Alkaline Phosphatase 112 (38-126) U/L Total Protein 7.2 (6.3-8.2) g/dL Albumin 4.0 (3.5-5.0) g/dL Current Medications Generic Name Dose Route Start Last Admin Trade Name Freq PRN Reason Stop Dose Admin Acetaminophen 650 mg 07/17/21 21:44 Acetaminophen Tab 325 Mg Tab PO Q6HR PRN Mild Pain or Fever > 100.5 Acetaminophen/Codeine Phosphate 1 each 07/18/21 09:53 Acetaminophen-Codeine 300-30mg Tab PO TID PRN Pain Hydrocodone Bitart/Acetaminophen 1 each 07/17/21 21:45 Hydrocodone/Apap 10-325mg 1 Each Tab PO TID PRN Pain Atorvastatin Calcium 20 mg 07/18/21 21:00 Atorvastatin 20 Mg Tab PO HS ERIN Diphenoxylate HCl/Atropine 1 each 07/18/21 09:53 Diphenox-Atrop 2.5-0.025 Mg 1 Each Tab PO BID PRN Loose Stool Sodium Chloride 1,000 mls @ 75 mls/hr 07/17/21 21:45 07/17/21 22:22 Saline 0.9% IV 75 mls/hr .[id number] ERIN Administration Insulin Detemir 60 unit 07/17/21 22:00 07/17/21 22:20 Insulin Detemir (Levemir) 100 Unit/Ml Syr SQ 60 unit DAILY ERIN Administration Latanoprost 1 drops 07/18/21 21:00 Latanoprost 0.005% Ophth Drops 2.5 Ml Btl BOTH EYES HS ERIN Naloxone HCl 0.2 mg 07/17/21 21:44 Naloxone 0.4 Mg/Ml 1 Ml Vial IV Q2M PRN Opioid Reversal Non-Formulary Medication 60 mg 07/18/21 10:00 Phenytoin Sodium Extended [Dilantin] PO BID [facility] Pantoprazole Sodium 40 mg 07/18/21 10:00 Pantoprazole 40 Mg Tablet PO DAILY [facility] Pioglitazone HCl 15 mg 07/18/21 10:00 Pioglitazone 15 Mg Tab PO DAILY [facility] Intake and Output 07/17/21 07/18/21 07/18/21 22:59 06:59 14:59 Intake Total 180 Balance 180 Intake: Oral 180 Other: Weight 43.998 kg 07/17/21 20:25 07/17/21 20:25
[2021-07-18] MEDS ORDERED: INSULIN DETEMIR (LEVEMIR) 100 UNIT/ML SYR SQ SCH (11:34)
[2021-07-18 11:41] LABS: Glucose,Whole Blood 50 mg/dL (75-99)
--- NOTE | 2021-07-18 11:53 | CA ---
Transthoracic Echo Report Name: Pietro Ryder Age: 61 Gender: M : 1960 Exam Date: 07/18/2021 11:14 Exam Location: [place] [facility] Ht (in): 61 Wt (lb): 97 Ordering Physician: Mel Trevino Attending/Referring Phys: [id number], [employer] Software Consultant Yaz Sanchez, AVTAR Procedure CPT: Indications: CP, LV function, SOB Cardiac Hx: Technical Quality: Good Contrast 1: Total Dose (mL): Contrast 2: Total Dose (mL): MEASUREMENTS (Male / Female) Normal Values 2D ECHO LV Diastolic Diameter PLAX 3.6 cm 4.2 - 5.9 / 3.9 - 5.3 cm LV Systolic Diameter PLAX 2.5 cm IVS Diastolic Thickness 1.1 cm 0.6 - 1.0 / 0.6 - 0.9 cm LVPW Diastolic Thickness 1.1 cm 0.6 - 1.0 / 0.6 - 0.9 cm LV Relative Wall Thickness 0.6 RV Internal Dim ED PLAX 3.2 cm LA Systolic Diameter LX 2.5 cm 3.0 - 4.0 / 2.7 - 3.8 cm LA Volume 25.1 cm??? 18 - 58 / 22 - 52 cm??? M-MODE Aortic Root Diameter MM 3.0 cm MV E Point Septal Separation 1.5 cm AV Cusp Separation MM 1.3 cm DOPPLER AV Peak Velocity 115.5 cm/s AV Peak Gradient 5.3 mmHg MV Area PHT 3.0 cm??? Mitral E Point Velocity 72.9 cm/s Mitral A Point Velocity 86.8 cm/s Mitral E to A Ratio 0.8 MV Deceleration Time 254.7 ms MV E' Velocity 7.5 cm/s Mitral E to MV E' Ratio 9.7 TR Peak Velocity 199.5 cm/s TR Peak Gradient 15.9 mmHg Right Ventricular Systolic Press 20.9 mmHg FINDINGS Left Ventricle Left ventricular ejection fraction is estimated at 60-65 %. Left ventricular cavity size normal. Borderline left ventricular hypertrophy. Right Ventricle Normal right ventricular size and function. Right ventricular systolic pressure within normal limits. Right Atrium Normal right atrial size. Left Atrium Normal left atrial size. No evidence for an atrial septal defect. Mitral Valve Mitral valve thickened. Elongation of the anterior mitral valve leaflet. Aortic Valve Trileaflet aortic valve. No aortic valve stenosis or regurgitation. Tricuspid Valve Structurally normal tricuspid valve. No tricuspid stenosis, regurgitation or prolapse. Pulmonic Valve Trace pulmonic regurgitation. Pericardium No pericardial effusion. Aorta Normal size aortic root and proximal ascending aorta. CONCLUSIONS Normal LV systolic function Previewed by: Dr. John Vivar MD (Electronically Signed) Final Date: 18 Jul 2021 11:52
[2021-07-18] MEDS: SODIUM CHLORIDE 0.9% 1,000 ML IV SCH (11:56)
[2021-07-18 12:10] LABS: Glucose,Whole Blood 68 mg/dL (75-99)
[2021-07-18 12:28] LABS: Glucose,Whole Blood 84 mg/dL (75-99)
[2021-07-18] MEDS: INSULIN DETEMIR (LEVEMIR) 100 UNIT/ML SYR SQ SCH (12:53)
[2021-07-18 13:34] VITALS: BP 123/71; PULSE 100; TEMP 97.6
[2021-07-18 14:51] VITALS: BMI 18.3
[2021-07-18 15:25] LABS: Glucose,Whole Blood 488 mg/dL (75-99)
[2021-07-18] MEDS ORDERED: INSULIN DETEMIR (LEVEMIR) 100 UNIT/ML SYR SQ ONE (17:00)
[2021-07-18 17:15] LABS: Glucose,Whole Blood 371 mg/dL (75-99)
--- NOTE | 2021-07-18 17:57 | P.HPIM ---
History of Present Illness H&P Date: 07/18/21 Pietro Ryder, is a 61-year-old male who presented to [facility] emergency room with a chief complaint of chest pain He was evaluated in the emergency room vital examination on presentation revealed a temperature of 97.6 pulse 100 respiration 20 blood pressure 123/71 pulse ox 100% on room air Laboratory data reveals a white blood count of 7.1 hemoglobin 11.4 platelet count 621 sodium 131 potassium 4.4 chloride 95 CO2 30 BUN 15 creatinine 0.9 glucose level was 421 troponin level less than 0.012 Patient was admitted to medical floor for further evaluation and treatment, cardiology consultation was requested. 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 History of Any Multi-Drug Resistant Organisms: MRSA Date of last positivie culture/infection: 12/29/19 MDRO Source:: Left Leg Past Surgical History: Orthopedic Surgery, Tonsillectomy Additional Past Surgical History / Comment(s): 01/23/20 angiogram L leg, 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, colonoscopy, L eye surgery for strabismus. Past Anesthesia/Blood Transfusion Reactions: No Reported Reaction Past Psychological History: Depression Smoking Status: Never smoker Past Alcohol Use History: None Reported Past Drug Use History: None Reported - Past Family History Father Family Medical History: Myocardial Infarction (PA) Additional Family Medical History / Comment(s): Father of a PA at the age of 57yrs. Mother Family Medical History: Cancer Additional Family Medical History / Comment(s): Mother from cancer at the age of 61 or 62 . Pt cannot recall type of cancer. Sister(s) Family Medical History: Diabetes Mellitus Additional Family Medical History / Comment(s): Sister had DM type 1. She is . Medications and Allergies Home Medications Medication Instructions Recorded Confirmed Type Omeprazole 20 mg PO DAILY 06/13/17 07/17/21 History Pioglitazone HCl [Actos] 15 mg PO DAILY 10/03/18 07/17/21 History Diphenox-Atrop 2.5-0.025 mg 1 tab PO BID PRN 11/17/19 07/17/21 History [Lomotil] Rosuvastatin [Crestor] 10 mg PO HS 05/15/20 07/17/21 History HYDROcodone/APAP 10-325MG [[place] 1 tab PO TID PRN 06/15/21 07/17/21 History 10-325] Latanoprost/Pf [Latanoprost 0.005% 1 drop BOTH EYES HS 06/15/21 07/17/21 History Eye Drop] Phenytoin Sodium Extended 60 mg PO BID 07/14/21 07/17/21 History [Dilantin] Acetaminophen Tab [Tylenol] 325 mg PO Q6HR PRN 07/17/21 07/17/21 History Acetaminophen-Codeine 300-30mg 1 tab PO TID PRN 07/17/21 07/17/21 History [Tylenol w/codeine #3] Ondansetron Odt [Zofran ODT] 4 mg PO Q8H PRN 07/17/21 07/17/21 History Insulin Detemir (Levemir) [Levemir] 20 unit SQ DAILY@0700 ml 07/18/21 Rx Allergies Allergy/AdvReac Type Severity Reaction Status Date / Time No Known Allergies Allergy Verified 07/17/21 22:40 Physical Exam Vitals: Vital Signs Temp Pulse Pulse Resp BP BP Pulse Ox 07/18/21 07:00 98.4 F 93 20 139/77 98 07/18/21 05:35 93 16 128/44 100 07/18/21 02:56 99 18 141/87 100 07/17/21 22:22 93 20 141/87 99 07/17/21 21:19 93 18 131/85 98 07/17/21 20:27 100 15 153/79 99 07/17/21 19:55 97.9 F 113 H 18 116/71 100 Intake and Output 07/17/21 07/18/21 07/18/21 22:59 06:59 14:59 Intake Total 180 Balance 180 Intake: Oral 180 Other: Weight 43.998 kg In general patient is alert and oriented x 3 in no distress HEENT head normocephalic and atraumatic Neck is supple no JVD no goiter no lymphadenopathy no carotid bruit Chest examination is clear to auscultation no crackles no wheezing Cardiac exam reveals regular heart sounds S1 and S2 no gallops no murmurs Abdomen is soft nontender no organomegaly with normal bowel sounds Extremity exam reveals no edema no cyanosis or clubbing Neurological examination reveals no gross focal deficits Results CBC & Chem 7: 07/18/21 10:24 07/18/21 10:24 Labs: Abnormal Lab Results - Last 24 Hours (Table) 07/17/21 07/17/21 07/18/21 Range/Units 20:25 20:25 03:19 Hgb 11.4 L (13.0-17.5) gm/dL Hct 38.8 L (39.0-53.0) % MCV 76.3 L (80.0-100.0) fL MCH 22.4 L (25.0-35.0) pg MCHC 29.3 L (31.0-37.0) g/dL Plt Count 621 H (150-450) k/uL Sodium 131 L (137-145) mmol/L Chloride 95 L (98-107) mmol/L Glucose 421 H (74-99) mg/dL POC Glucose (mg/dL) 48 L (75-99) mg/dL 07/18/21 07/18/21 07/18/21 Range/Units 04:16 05:31 05:55 Hgb (13.0-17.5) gm/dL Hct (39.0-53.0) % MCV (80.0-100.0) fL MCH (25.0-35.0) pg MCHC (31.0-37.0) g/dL Plt Count (150-450) k/uL Sodium (137-145) mmol/L Chloride (98-107) mmol/L Glucose (74-99) mg/dL POC Glucose (mg/dL) 113 H 43 L 180 H (75-99) mg/dL 07/18/21 07/18/21 Range/Units 07:11 07:28 Hgb (13.0-17.5) gm/dL Hct (39.0-53.0) % MCV (80.0-100.0) fL MCH (25.0-35.0) pg MCHC (31.0-37.0) g/dL Plt Count (150-450) k/uL Sodium (137-145) mmol/L Chloride (98-107) mmol/L Glucose (74-99) mg/dL POC Glucose (mg/dL) 106 H 243 H (75-99) mg/dL Assessment and Plan Plan: Episode of chest pain, EKG reveals sinus tachycardia First troponin is negative at less than 0.012, d-dimer negative at 0.33 Cardiology consultation is requested Underlying history of insulin-dependent diabetes mellitus Underlying history of chronic lower extremity cellulitis with ulcers followed at the wound care clinic Underlying history of hypertension Underlying history of hyperlipidemia Underlying history of gastroesophageal reflux disease At this time home medications were reviewed and reordered Cardiology consultation requested Will monitor on telemetry
--- NOTE | 2021-07-18 18:01 | P.DS ---
Providers Date of admission: 07/17/21 21:44 Expected date of discharge: 07/18/21 Attending physician: Helen Chen Consults: 07/18/21 09:54 Consult Physician Routine Consulting Provider: Vane Anderson Consult Reason/Comments: chest pain Do you want consulting provider notified?: Yes Primary care physician: Helen Gustavo [facility] Course: Diagnosis on discharge: Episode of chest pain, EKG reveals sinus tachycardia First troponin is negative at less than 0.012, d-dimer negative at 0.33 Cardiology consultation is requested. Patient was evaluated by cardiology 3 sets of troponin were negative patient was chest pain-free during this admission he recently had a stress test that was negative He was cleared by cardiology for discharge Underlying history of insulin-dependent diabetes mellitus Underlying history of chronic lower extremity cellulitis with ulcers followed at the wound care clinic Underlying history of hypertension Underlying history of hyperlipidemia Underlying history of gastroesophageal reflux disease Hospital course: Pietro Ryder, is a 61-year-old male who presented to [facility] emergency room with a chief complaint of chest pain He was evaluated in the emergency room vital examination on presentation revealed a temperature of 97.6 pulse 100 respiration 20 blood pressure 123/71 pulse ox 100% on room air Laboratory data reveals a white blood count of 7.1 hemoglobin 11.4 platelet count 621 sodium 131 potassium 4.4 chloride 95 CO2 30 BUN 15 creatinine 0.9 glucose level was 421 troponin level less than 0.012 Patient was admitted to medical floor for further evaluation and treatment, cardiology consultation was requested. On 07/18/2021 patient was seen and examined on the medical floor he is alert and oriented 3 in no apparent distress he denies any new episodes of chest pain. Patient was chest pain-free throughout this admission. He was evaluated by ca rdiology 3 sets of cardiac enzymes were negative. Patient had a recent stress test that was negative. No further recommendation by cardiology. He was cleared by cardiology for discharge home. Patient will be followed in our office within one week for further evaluation and treatment Patient Condition at Discharge: Stable Plan - Discharge Summary Discharge Rx Participant: No New Discharge Prescriptions: New Insulin Detemir (Levemir) [Levemir] 20 unit SQ DAILY@0700 ml Continue Omeprazole 20 mg PO DAILY Pioglitazone HCl [Actos] 15 mg PO DAILY Diphenox-Atrop 2.5-0.025 mg [Lomotil] 1 tab PO BID PRN PRN Reason: Loose Stool Rosuvastatin [Crestor] 10 mg PO HS Latanoprost/Pf [Latanoprost 0.005% Eye Drop] 1 drop BOTH EYES HS Acetaminophen Tab [Tylenol] 325 mg PO Q6HR PRN PRN Reason: Mild Pain Or Fever > 100.5 HYDROcodone/APAP 10-325MG [[place] 10-325] 1 tab PO TID PRN PRN Reason: Pain Phenytoin Sodium Extended [Dilantin] 60 mg PO BID Ondansetron Odt [Zofran ODT] 4 mg PO Q8H PRN PRN Reason: Nausea Acetaminophen-Codeine 300-30mg [Tylenol w/codeine #3] 1 tab PO TID PRN PRN Reason: Pain Discontinued Insulin Glargine [Lantus Vial] 60 unit SQ DAILY traMADol HCL 50 mg PO Q6H PRN 3 Days #12 tab PRN Reason: Pain Discharge Medication List Omeprazole 20 mg PO DAILY 06/13/17 [History] Pioglitazone HCl [Actos] 15 mg PO DAILY 10/03/18 [History] Diphenox-Atrop 2.5-0.025 mg [Lomotil] 1 tab PO BID PRN 11/17/19 [History] Rosuvastatin [Crestor] 10 mg PO HS 05/15/20 [History] HYDROcodone/APAP 10-325MG [[place] 10-325] 1 tab PO TID PRN 06/15/21 [History] Latanoprost/Pf [Latanoprost 0.005% Eye Drop] 1 drop BOTH EYES HS 06/15/21 [History] Phenytoin Sodium Extended [Dilantin] 60 mg PO BID 07/14/21 [History] Acetaminophen Tab [Tylenol] 325 mg PO Q6HR PRN 07/17/21 [History] Acetaminophen-Codeine 300-30mg [Tylenol w/codeine #3] 1 tab PO TID PRN 07/17/21 [History] Ondansetron Odt [Zofran ODT] 4 mg PO Q8H PRN 07/17/21 [History] Insulin Detemir (Levemir) [Levemir] 20 unit SQ DAILY@0700 ml 07/18/21 [Rx] Follow up Appointment(s)/Referral(s): Helen Chen MD [Primary Care Provider] - 07/25/21 11:30 am
[2021-07-18] MEDS ORDERED: LATANOPROST 0.005% OPHTH DROPS 2.5 ML BTL BOTH EYES SCH (21:00)
[2021-07-18] MEDS ORDERED: ATORVASTATIN 20 MG TAB PO SCH (21:00)
== END 2021-07-18 18:17 | disposition home or self-care (01) ==
LOC: EC 18:15 → 6NMEDSUR 21:44
PROVIDERS: ADMIT Internal Medicine; ATTEND Internal Medicine
DX: R07.89 Other chest pain (principal); E11.65 Type 2 diabetes mellitus with hyperglycemia; I10 Essential (primary) hypertension; E78.5 Hyperlipidemia, unspecified; K21.9 Gastro-esophageal reflux disease without esophagitis; R00.0 Tachycardia, unspecified; M19.90 Unspecified osteoarthritis, unspecified site; E11.40 Type 2 diabetes mellitus with diabetic neuropathy, unspecified; G40.909 Epilepsy, unspecified, not intractable, without status epilepticus; M17.12 Unilateral primary osteoarthritis, left knee; D64.9 Anemia, unspecified; E86.0 Dehydration; F32.A Depression, unspecified; Z79.4 Long term (current) use of insulin; Z79.84 Long term (current) use of oral hypoglycemic drugs; Z86.14 Personal history of Methicillin resistant Staphylococcus aureus infection; Z85.9 Personal history of malignant neoplasm, unspecified; Z80.9 Family history of malignant neoplasm, unspecified; Z82.49 Family history of ischemic heart disease and other diseases of the circulatory system; Z83.3 Family history of diabetes mellitus
CPT/HCPCS: 99285; 96376; 96361; 96374; 96375; 36415; 93005; 93306; 85379; 80053 ×2; 83735; 84484 ×2; 85025 ×2; 85610; 85730; 71046; G0378 ×2; J2060; J2405

== ENCOUNTER 2021-08-30 10:27 | Emergency (ER) | payer OTHER ==
[2021-08-30 10:38] VITALS: TEMP 98.3
[2021-08-30] MEDS ORDERED: SODIUM CHLORIDE 0.9% 500 ML 500 ML IV STA (11:07)
[2021-08-30] MEDS ORDERED: SODIUM CHLORIDE 0.9% 1,000 ML IV STA (11:07)
[2021-08-30 11:23] LABS: Basophils % (A) 0 %; Eosinophils % (A) 0 %; HCT 34.8 % (39.0-53.0); HGB 10.2 gm/dL (13.0-17.5); Hypochromasia Marked; Lymphocytes # (A) 0.8 k/uL (1.0-4.8); Lymphocytes % (A) 9 %; MCHC 29.3 g/dL (31.0-37.0); Mean Platelet Volume 6.6; Microcytosis Slight; Monocytes # (A) 0.3 k/uL (0-1.0); Monocytes % (A) 4 %; Neutrophils # (A) 8.1 k/uL (1.3-7.7); Neutrophils % (A) 86 %; Platelet Count 643 k/uL (150-450); RBC 4.64 m/uL (4.30-5.90); RDW 15.1 % (11.5-15.5); WBC 9.5 k/uL (3.8-10.6)
--- NOTE | 2021-08-30 11:29 | XR ---
EXAMINATION TYPE: XR chest 2V DATE OF EXAM: 08/30/2021 COMPARISON: Chest x-ray 07/17/2021 HISTORY: Difficulty breathing TECHNIQUE: Frontal and lateral views of the chest are obtained. FINDINGS: There is no focal air space opacity, pleural effusion, or pneumothorax seen. The cardiac silhouette size is within normal limits. Question some bronchial wall thickening. The osseous struct ures are intact. IMPRESSION: Correlate for bronchitis, reactive airways disease
--- NOTE | 2021-08-30 11:33 | ED ---
SOB HPI - General Chief Complaint: Shortness of Breath Stated Complaint: SOB Time Seen by Provider: 08/30/21 10:41 Source: patient, RN notes reviewed Mode of arrival: ambulatory Limitations: no limitations - History of Present Illness Initial Comments: 61-year-old male presents emergency Department chief complaint of shortness breath, not eating well. Patient states she's never any bleeding much last couple days she states several days. Patient states he is unsure why feels short of breath he denies any fever or chills cough, chest pain, sick contacts. Patient states she has no leg swelling. He has no history of lung disease. Patient states he is diabetic blood sugar is 128 this morning. Denies any symptoms diarrhea. Patient offers no other complaints. - Related Data Home Medications Medication Instructions Recorded Confirmed Omeprazole 20 mg PO BID 06/13/17 08/30/21 Pioglitazone HCl [Actos] 15 mg PO DAILY 10/03/18 08/30/21 Diphenox-Atrop 2.5-0.025 mg 1 tab PO BID PRN 11/17/19 08/30/21 [Lomotil] Rosuvastatin [Crestor] 10 mg PO HS 05/15/20 08/30/21 HYDROcodone/APAP 10-325MG [[place] 1 tab PO TID PRN 06/15/21 08/30/21 10-325] Latanoprost/Pf [Latanoprost 0.005% 1 drop BOTH EYES HS 06/15/21 08/30/21 Eye Drop] Phenytoin Sodium Extended 60 mg PO BID 07/14/21 08/30/21 [Dilantin] Acetaminophen Tab [Tylenol] 325 mg PO Q6HR PRN 07/17/21 08/30/21 Acetaminophen-Codeine 300-30mg 1 tab PO TID PRN 07/17/21 08/30/21 [Tylenol w/codeine #3] Insulin Glargine [Lantus Vial] 50 unit SQ DAILY 07/29/21 08/30/21 traMADol HCL [Ultram] 50 mg PO Q6H PRN 07/29/21 08/30/21 Ketorolac 0.5% Ophth Soln [Acular 1 drops LEFT EYE BID 08/30/21 08/30/21 0.5%] Loteprednol Etabonate [Inveltys] 1 drop LEFT EYE BID 08/30/21 08/30/21 Previous Rx's Medication Instructions Recorded Ondansetron Odt [Zofran Odt] 4 mg PO Q8HR PRN #12 tab 07/29/21 Allergies Allergy/AdvReac Type Severity Reaction Status Date / Time No Known Allergies Allergy Verified 08/30/21 11:53 Review of Systems ROS Statement: Those systems with pertinent positive or pertinent negative responses have been documented in the HPI. ROS Other: All systems not noted in ROS Statement are negative. 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 History of Any Multi-Drug Resistant Organisms: MRSA Date of last positivie culture/infection: 12/29/19 MDRO Source:: Left Leg Past Surgical History: Orthopedic Surgery, Tonsillectomy Additional Past Surgical History / Comment(s): 01/23/20 angiogram L leg, 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, colonoscopy, L eye surgery for strabismus. Past Anesthesia/Blood Transfusion Reactions: No Reported Reaction Past Psychological History: Depression Smoking Status: Never smoker Past Alcohol Use History: None Reported Past Drug Use History: None Reported - Past Family History Father Family Medical History: Myocardial Infarction (ID) Additional Family Medical History / Comment(s): Father of a ID at the age of 57yrs. Mother Family Medical History: Cancer Additional Family Medical History / Comment(s): Mother from cancer at the age of 61 or 62 . Pt cannot recall type of cancer. Sister(s) Family Medical History: Diabetes Mellitus Additional Family Medical History / Comment(s): Sister had DM type 1. She is . General Exam Limitations: no limitations General appearance: alert, in no apparent distress Head exam: Present: atraumatic, normocephalic, normal inspection Eye exam: Present: normal appearance, PERRL, EOMI. Absent: scleral icterus, c onjunctival injection, periorbital swelling ENT exam: Present: normal exam, normal oropharynx, mucous membranes moist Neck exam: Present: normal inspection, full ROM. Absent: tenderness, meningismus, lymphadenopathy Respiratory exam: Present: normal lung sounds bilaterally. Absent: respiratory distress, wheezes, rales, rhonchi, stridor Cardiovascular Exam: Present: normal rhythm, tachycardia, normal heart sounds. Absent: systolic murmur, diastolic murmur, rubs, gallop, clicks GI/Abdominal exam: Present: soft, normal bowel sounds. Absent: distended, tenderness, guarding, rebound, rigid Back exam: Absent: CVA tenderness (R), CVA tenderness (L) Neurological exam: Present: alert Skin exam: Present: warm, dry, intact, normal color. Absent: rash Course Vital Signs 08/30/21 08/30/21 08/30/21 10:35 11:06 13:00 Temperature 98.3 F Pulse Rate 116 H 86 Respiratory 20 18 16 Rate Blood Pressure 128/71 122/71 O2 Sat by Pulse 99 Oximetry Medical Decision Making - Medical Decision Making 61-year-old presented for nausea decreased appetite and shortness breath breath workup was negative at this time including negative CT no acute changes. Patient did have hyperglycemia was hydrated, given insulin states he feels greatly improved. Patient discharged stable condition return parameters were discussed. - Lab Data Result diagrams: 08/30/21 11:12 08/30/21 11:12 Lab Results 08/30/21 08/30/21 08/30/21 Range/Units 11:12 11:12 11:12 WBC 9.5 (3.8-10.6) k/uL RBC 4.64 (4.30-5.90) m/uL Hgb 10.2 L (13.0-17.5) gm/dL Hct 34.8 L (39.0-53.0) % MCV 75.0 L (80.0-100.0) fL MCH 22.0 L (25.0-35.0) pg MCHC 29.3 L (31.0-37.0) g/dL RDW 15.1 (11.5-15.5) % Plt Count 643 H (150-450) k/uL MPV 6.6 Neutrophils % 86 % Lymphocytes % 9 % Monocytes % 4 % Eosinophils % 0 % Basophils % 0 % Neutrophils # 8.1 H (1.3-7.7) k/uL Lymphocytes # 0.8 L (1.0-4.8) k/uL Monocytes # 0.3 (0-1.0) k/uL Eosinophils # 0.0 (0-0.7) k/uL Basophils # 0.0 (0-0.2) k/uL Hypochromasia Marked Microcytosis Slight PT 9.8 (9.0-12.0) sec INR 0.9 (<1.2) APTT 26.0 (22.0-30.0) sec D-Dimer 0.72 H (<0.60) mg/L FEU Sodium 133 L (137-145) mmol/L Potassium 4.5 (3.5-5.1) mmol/L Chloride 96 L (98-107) mmol/L Carbon Dioxide 29 (22-30) mmol/L Anion Gap 8 mmol/L BUN 12 (9-20) mg/dL Creatinine 0.83 (0.66-1.25) mg/dL Est GFR (CKD-EPI)AfAm >90 (>60 ml/min/1.73 sqM) Est GFR (CKD-EPI)NonAf >90 (>60 ml/min/1.73 sqM) Glucose 502 H* (74-99) mg/dL POC Glucose (mg/dL) (70-110) mg/dL POC Glu Electrical Machinist ID Plasma Lactic Acid Michael (0.7-2.0) mmol/L Calcium 9.0 (8.4-10.2) mg/dL Magnesium 1.9 (1.6-2.3) mg/dL Total Bilirubin 0.2 (0.2-1.3) mg/dL AST 14 L (17-59) U/L ALT 9 (4-49) U/L Alkaline Phosphatase 118 (38-126) U/L Troponin I (0.000-0.034) ng/mL NT-Pro-B Natriuret Pep pg/mL Total Protein 7.2 (6.3-8.2) g/dL Albumin 3.6 (3.5-5.0) g/dL Lipase 91 (23-300) U/L 08/30/21 08/30/21 08/30/21 Range/Units 11:12 11:12 11:12 WBC (3.8-10.6) k/uL RBC (4.30-5.90) m/uL Hgb (13.0-17.5) gm/dL Hct (39.0-53.0) % MCV (80.0-100.0) fL MCH (25.0-35.0) pg MCHC (31.0-37.0) g/dL RDW (11.5-15.5) % Plt Count (150-450) k/uL MPV Neutrophils % % Lymphocytes % % Monocytes % % Eosinophils % % Basophils % % Neutrophils # (1.3-7.7) k/uL Lymphocytes # (1.0-4.8) k/uL Monocytes # (0-1.0) k/uL Eosinophils # (0-0.7) k/uL Basophils # (0-0.2) k/uL Hypochromasia Microcytosis PT (9.0-12.0) sec INR (<1.2) APTT (22.0-30.0) sec D-Dimer (<0.60) mg/L FEU Sodium (137-145) mmol/L Potassium (3.5-5.1) mmol/L Chloride (98-107) mmol/L Carbon Dioxide (22-30) mmol/L Anion Gap mmol/L BUN (9-20) mg/dL Creatinine (0.66-1.25) mg/dL Est GFR (CKD-EPI)AfAm (>60 ml/min/1.73 sqM) Est GFR (CKD-EPI)NonAf (>60 ml/min/1.73 sqM) Glucose (74-99) mg/dL POC Glucose (mg/dL) (70-110) mg/dL POC Glu Electrical Machinist ID Plasma Lactic Acid Michael 1.9 (0.7-2.0) mmol/L Calcium (8.4-10.2) mg/dL Magnesium (1.6-2.3) mg/dL Total Bilirubin (0.2-1.3) mg/dL AST (17-59) U/L ALT (4-49) U/L Alkaline Phosphatase (38-126) U/L Troponin I <0.012 (0.000-0.034) ng/mL NT-Pro-B Natriuret Pep 54 pg/mL Total Protein (6.3-8.2) g/dL Albumin (3.5-5.0) g/dL Lipase (23-300) U/L 08/30/21 Range/Units 13:44 WBC (3.8-10.6) k/uL RBC (4.30-5.90) m/uL Hgb (13.0-17.5) gm/dL Hct (39.0-53.0) % MCV (80.0-100.0) fL MCH (25.0-35.0) pg MCHC (31.0-37.0) g/dL RDW (11.5-15.5) % Plt Count (150-450) k/uL MPV Neutrophils % % Lymphocytes % % Monocytes % % Eosinophils % % Basophils % % Neutrophils # (1.3-7.7) k/uL Lymphocytes # (1.0-4.8) k/uL Monocytes # (0-1.0) k/uL Eosinophils # (0-0.7) k/uL Basophils # (0-0.2) k/uL Hypochromasia Microcytosis PT (9.0-12.0) sec INR (<1.2) APTT (22.0-30.0) sec D-Dimer (<0.60) mg/L FEU Sodium (137-145) mmol/L Potassium (3.5-5.1) mmol/L Chloride (98-107) mmol/L Carbon Dioxide (22-30) mmol/L Anion Gap mmol/L BUN (9-20) mg/dL Creatinine (0.66-1.25) mg/dL Est GFR (CKD-EPI)AfAm (>60 ml/min/1.73 sqM) Est GFR (CKD-EPI)NonAf (>60 ml/min/1.73 sqM) Glucose (74-99) mg/dL POC Glucose (mg/dL) 146 H (70-110) mg/dL POC Glu Electrical Machinist ID Miriam Kinney Plasma Lactic Acid Michael (0.7-2.0) mmol/L Calcium (8.4-10.2) mg/dL Magnesium (1.6-2.3) mg/dL Total Bilirubin (0.2-1.3) mg/dL AST (17-59) U/L ALT (4-49) U/L Alkaline Phosphatase (38-126) U/L Troponin I (0.000-0.034) ng/mL NT-Pro-B Natriuret Pep pg/mL Total Protein (6.3-8.2) g/dL Albumin (3.5-5.0) g/dL Lipase (23-300) U/L Disposition Clinical Impression: Hyperglycemia, Dehydration Disposition: HOME SELF-CARE Condition: Stable Instructions (If sedation given, give patient instructions): Diabetic H yperglycemia (ED) Additional Instructions: Please return to the Emergency Department if symptoms worsen or any other concerns. Is patient prescribed a controlled substance at d/c from ED?: No Referrals: Helen Chen MD [Primary Care Provider] - 1-2 days Time of Disposition: 13:46
[2021-08-30 11:43] LABS: INR 0.9 (<1.2); Prothrombin Time 9.8 sec (9.0-12.0)
[2021-08-30 11:46] LABS: ALT 9 U/L (4-49); AST 14 U/L (17-59); African American GFR (CKD) >90 (>60 ml/min/1.73 sqM); Albumin 3.6 g/dL (3.5-5.0); Alkaline Phosphatase 118 U/L (38-126); Anion Gap 8 mmol/L; Blood Urea Nitrogen 12 mg/dL (9-20); Carbon Dioxide 29 mmol/L (22-30); Chloride 96 mmol/L (98-107); Lipase 91 U/L (23-300); Magnesium 1.9 mg/dL (1.6-2.3); Non-African American GFR(CKD) >90 (>60 ml/min/1.73 sqM); Potassium 4.5 mmol/L (3.5-5.1); Sodium 133 mmol/L (137-145); Total Bilirubin 0.2 mg/dL (0.2-1.3); Total Protein 7.2 g/dL (6.3-8.2)
[2021-08-30 11:50] LABS: Glucose 502 mg/dL (74-99)
[2021-08-30] MEDS ORDERED: INSULIN REGULAR 100 UNIT/ML VIAL (IV) IV ONE (12:12)
--- NOTE | 2021-08-30 13:00 | CT ---
EXAMINATION TYPE: CT chest angio for PE DATE OF EXAM: 08/30/2021 COMPARISON: 03/07/2020 HISTORY: SOB CT DLP: 164.4 mGycm CONTRAST: CT chest with contrast and 3D reconstruction with MIP imaging is performed with IV Contrast, patient injected with 100 mL of Isovue 370. Contrast-enhanced CT of the chest was performed through the course of the pulmonary arteries with racheal g and mediastinal window settings submitted. 3D reconstruction with MIP imaging was also performed. PULMONARY ARTERIES: The pulmonary arteries and their major tributaries are patent. I do not see rasheed dence for sizable filling defect to suggest pulmonary embolic process. LUNGS: The lungs are clear and free of infiltrate. Left lower lobe atelectasis. No pulmonary nodule o r mass is detected. No pleural effusion. MEDIASTINUM: Thoracic aorta is of normal caliber,however, evaluation is limited given timing of the contrast bolus. If there is concern for thoracic aortic pathology consider [place]. Correlate clinicall y . The heart is not enlarged. No evidence for mediastinal mass. No mediastinal lymph nodes greater than 1cm. HILAR STRUCTURES: No evidence for mass. No hilar lymph nodes greater than 1 cm. UPPER ABDOMEN: No significant abnormality is seen. IMPRESSION: 1. No evidence for Pulmonary embolism at this time.
[2021-08-30 13:45] LABS: Glucose,Whole Blood 146 mg/dL (70-110)
[2021-08-30 13:47] VITALS: BP 127/79; PULSE 78; RESP 18
== END 2021-08-30 13:57 | disposition home or self-care (01) ==
LOC: EC 10:27
DX: E86.0 Dehydration (principal); R73.9 Hyperglycemia, unspecified; K21.9 Gastro-esophageal reflux disease without esophagitis; Z79.83 Long term (current) use of bisphosphonates; E78.5 Hyperlipidemia, unspecified; Z82.49 Family history of ischemic heart disease and other diseases of the circulatory system
CPT/HCPCS: 36415; 93005; 85379; 83880; 80053; 83605; 83690; 83735; 84484; 85025; 85610; 85730; 71046; 71275; 99285; 96360; 96361; Q9967

== ENCOUNTER 2021-09-13 13:23 | Emergency (ER) | payer OTHER ==
[2021-09-13 14:17] VITALS: BP 114/67; PULSE 120; RESP 16; TEMP 97.9
[2021-09-13] MEDS ORDERED: DIPHENOX-ATROP 2.5-0.025 MG 1 EACH TAB PO STA (14:31)
--- NOTE | 2021-09-13 14:33 | ED ---
General Adult HPI - General Chief complaint: Abdominal Pain Stated complaint: Vomiting/Diarrhea Time Seen by Provider: 09/13/21 14:20 Source: patient, RN notes reviewed, old records reviewed Mode of arrival: ambulatory Limitations: no limitations - History of Present Illness Initial comments: This is a 61-year-old male who presents emergency Department telling me he started having diarrhea yesterday. When I asked if he had any abdominal pain he said he has not had any abdominal pain. Triage note mentions abdominal pain but asked him on 3 different occasions in all 3 times he said he did not have any abdominal pain. Patient states he also woke up this morning felt a little short of breath but he denies any fever chills or cough. Patient denies chest pain or palpitations. Patient currently is oxygenating 99-100% on room air and is in no apparent respiratory distress. Patient denies any headache patient denies numbness weakness. Patient denies any recent injury or trauma. Patient denies to me any nausea or vomiting again the triage note mentions nausea vomiting but he denies it to me twice. - Related Data Home Medications Medication Instructions Recorded Confirmed Omeprazole 20 mg PO BID 06/13/17 08/30/21 Pioglitazone HCl [Actos] 15 mg PO DAILY 10/03/18 08/30/21 Diphenox-Atrop 2.5-0.025 mg 1 tab PO BID PRN 11/17/19 08/30/21 [Lomotil] Rosuvastatin [Crestor] 10 mg PO HS 05/15/20 08/30/21 HYDROcodone/APAP 10-325MG [[place] 1 tab PO TID PRN 06/15/21 08/30/21 10-325] Latanoprost/Pf [Latanoprost 0.005% 1 drop BOTH EYES HS 06/15/21 08/30/21 Eye Drop] Phenytoin Sodium Extended 60 mg PO BID 07/14/21 08/30/21 [Dilantin] Acetaminophen Tab [Tylenol] 325 mg PO Q6HR PRN 07/17/21 08/30/21 Acetaminophen-Codeine 300-30mg 1 tab PO TID PRN 07/17/21 08/30/21 [Tylenol w/codeine #3] Insulin Glargine [Lantus Vial] 50 unit SQ DAILY 07/29/21 08/30/21 traMADol HCL [Ultram] 50 mg PO Q6H PRN 07/29/21 08/30/21 Ketorolac 0.5% Ophth Soln [Acular 1 drops LEFT EYE BID 08/30/21 08/30/21 0.5%] Loteprednol Etabonate [Inveltys] 1 drop LEFT EYE BID 08/30/21 08/30/21 Previous Rx's Medication Instructions Recorded Ondansetron Odt [Zofran Odt] 4 mg PO Q8HR PRN #12 tab 07/29/21 Allergies Allergy/AdvReac Type Severity Reaction Status Date / Time No Known Allergies Allergy Verified 09/13/21 14:15 Review of Systems ROS Statement: Those systems with pertinent positive or pertinent negative responses have been documented in the HPI. ROS Other: All systems not noted in ROS Statement are negative. 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 History of Any Multi-Drug Resistant Organisms: MRSA Date of last positivie culture/infection: 12/29/19 MDRO Source:: Left Leg Past Surgical History: Orthopedic Surgery, Tonsillectomy Additional Past Surgical History / Comment(s): 01/23/20 angiogram L leg, 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, colonoscopy, L eye surgery for strabismus. Past Anesthesia/Blood Transfusion Reactions: No Reported Reaction Past Psychological History: Depression Smoking Status: Never smoker Past Alcohol Use History: None Reported Past Drug Use History: None Reported - Past Family History Father Family Medical History: Myocardial Infarction ([place]) Additional Family Medical History / Comment(s): Father of a [place] at the age of 57yrs. Mother Family Medical History: Cancer Additional Family Medical History / Comment(s): Mother from cancer at the age of 61 or 62 . Pt cannot recall type of cancer. Sister(s) Family Medical History: Diabetes Mellitus Additional Family Medical History / Comment(s): Sister had DM type 1. She is . General Exam - General Exam Comments Initial Comments: GENERAL: Patient is well-developed and well-nourished. Patient is nontoxic and well- hydrated and is in no acute distress. ENT: Neck is soft and supple. No significant lymphadenopathy is noted. Oropharynx is clear. Moist mucous membranes. Neck has full range of motion without el iciting any pain. EYES: The sclera were anicteric and conjunctiva were pink and moist. Extraocular movements were intact and pupils were equal round and reactive to light. Eyelids were unremarkable. PULMONARY: Unlabored respirations. Good breath sounds bilaterally. No audible rales rhonchi or wheezing was noted. CARDIOVASCULAR: There is a regular rate and rhythm without any murmurs gallops or rubs. ABDOMEN: Soft and nontender with normal bowel sounds. SKIN: Skin is clear with no lesions or rashes and otherwise unremarkable. NEUROLOGIC: Patient is alert and oriented x3. Cranial nerves II through XII are grossly intact. Motor and sensory are also intact. Normal speech, volume and content. Symmetrical smile. MUSCULOSKELETAL: Normal extremities with adequate strength and full range of motion. No lower extremity swelling or edema. No calf tenderness. LYMPHATICS: No significant lymphadenopathy is noted PSYCHIATRIC: Normal psychiatric evaluation Limitations: no limitations Course Vital Signs 09/13/21 14:15 Temperature 97.9 F Pulse Rate 120 H Respiratory 16 Rate Blood Pressure 114/67 O2 Sat by Pulse 99 Oximetry Medical Decision Making - Medical Decision Making EKG shows sinus rhythm at 93 bpm AR interval 128 QRSs 84 QT interval 339 QTC is 390. Patient's EKG shows no ST segment elevation or depression. Chest x-ray shows no acute abnormality. The patient received Lomotil and the emergency department. Had no further diarrhea. I went back into the room and reevaluated the patient he stated he had no more diarrhea felt considerably better and stated he would follow-up with Dr. Chen. Patient had no further complaints at this time - Lab Data Lab Results 09/13/21 Range/Units 14:36 POC Glucose (mg/dL) 272 H (70-110) mg/dL POC Glu Super[employer] Department ID Parth Walker Disposition Clinical Impression: Diarrhea Disposition: HOME SELF-CARE Condition: Good Instructions (If sedation given, give patient instructions): Acute Diarrhea (ED) Is patient prescribed a controlled substance at d/c from ED?: No Referrals: Helen Chen MD [Primary Care Provider] - 1-2 days Time of Disposition: 16:13
[2021-09-13 14:38] LABS: Glucose,Whole Blood 272 mg/dL (70-110)
--- NOTE | 2021-09-13 14:52 | XR ---
EXAMINATION TYPE: XR chest 2V DATE OF EXAM: 09/13/2021 COMPARISON: Chest x-ray August 30, 2021 HISTORY: Shortness of breath. TECHNIQUE: Frontal and lateral views of the chest are obtained. FINDINGS: There is no suspicious new focal air space opacity, pleural effusion, or pneumothorax seen . The cardiac silhouette size remains within normal limits. The osseous structures are intact. IMPRESSION: No acute process.
== END 2021-09-13 16:46 | disposition home or self-care (01) ==
LOC: EC 13:23
DX: R19.7 Diarrhea, unspecified (principal); E78.5 Hyperlipidemia, unspecified; E11.9 Type 2 diabetes mellitus without complications; K21.9 Gastro-esophageal reflux disease without esophagitis; Z79.83 Long term (current) use of bisphosphonates
CPT/HCPCS: 36415; 71046; 93005

== ENCOUNTER 2021-09-16 08:29 | Emergency (ER) | payer OTHER ==
[2021-09-16 08:37] VITALS: RESP 18; TEMP 98.2
[2021-09-16] MEDS ORDERED: ONDANSETRON 4 MG/2 ML VIAL IVP STA (08:58)
[2021-09-16] MEDS ORDERED: SODIUM CHLORIDE 0.9% 1,000 ML IV STA (08:58)
[2021-09-16] MEDS ORDERED: SODIUM CHLORIDE 0.9% 500 ML 500 ML IV STA (08:58)
--- NOTE | 2021-09-16 09:49 | XR ---
EXAMINATION TYPE: XR chest 2V DATE OF EXAM: 09/16/2021 COMPARISON: 09/13/2009 TECHNIQUE: PA and lateral views submitted. HISTORY: Difficulty breathing FINDINGS: The lungs are clear and there is no pneumothorax, pleural effusion, or focal pneumonia. Heart size normal. No overt failure. Mild hyperinflation related to asthma or COPD. IMPRESSION: 1. No acute process.
[2021-09-16 10:00] LABS: Appearance,Urine Clear (Clear); Bilirubin,Urine Negative (Negative); Blood,Urine Negative (Negative); Color,Urine Colorless; Glucose,Urine (UA) 4+ (Negative); Ketones,Urine 1+ (Negative); Leukocyte Esterase,Urine Negative (Negative); Nitrite,Urine Negative (Negative); Protein,Urine Trace (Negative); Specific Gravity,Urine 1.024 (1.001-1.035); Urobilinogen,Urine <2.0 mg/dL (<2.0)
[2021-09-16 10:07] LABS: ALT 14 U/L (4-49); AST 18 U/L (17-59); African American GFR (CKD) >90 (>60 ml/min/1.73 sqM); Albumin 3.7 g/dL (3.5-5.0); Alkaline Phosphatase 149 U/L (38-126); Anion Gap 13 mmol/L; Basophils # (A) 0.1 k/uL (0-0.2); Basophils % (A) 1 %; Blood Urea Nitrogen 20 mg/dL (9-20); Calcium 8.9 mg/dL (8.4-10.2); Carbon Dioxide 24 mmol/L (22-30); Chloride 93 mmol/L (98-107); Eosinophils % (A) 0 %; HCT 29.9 % (39.0-53.0); HGB 9.1 gm/dL (13.0-17.5); Hypochromasia Marked; Lipase 180 U/L (23-300); Lymphocytes # (A) 1.1 k/uL (1.0-4.8); Lymphocytes % (A) 11 %; MCH 22.2 pg (25.0-35.0); MCHC 30.5 g/dL (31.0-37.0); MCV 72.9 fL (80.0-100.0); Magnesium 1.9 mg/dL (1.6-2.3); Mean Platelet Volume 6.3; Microcytosis Slight; Monocytes # (A) 0.4 k/uL (0-1.0); Monocytes % (A) 4 %; Neutrophils % (A) 82 %; Non-African American GFR(CKD) >90 (>60 ml/min/1.73 sqM); Platelet Count 661 k/uL (150-450); Potassium 4.6 mmol/L (3.5-5.1); RDW 15.3 % (11.5-15.5); Sodium 130 mmol/L (137-145); Total Bilirubin 0.2 mg/dL (0.2-1.3); Total Protein 7.2 g/dL (6.3-8.2); WBC 9.8 k/uL (3.8-10.6)
[2021-09-16 10:16] LABS: Glucose 589 mg/dL (74-99); INR 0.9 (<1.2); Prothrombin Time 9.7 sec (9.0-12.0)
[2021-09-16] MEDS ORDERED: INSULIN REGULAR 100 UNIT/ML VIAL (IV) IV ONE (10:19)
--- NOTE | 2021-09-16 10:57 | ED ---
General Adult HPI - General Chief complaint: Shortness of Breath Stated complaint: JUSTO/vomiting Time Seen by Provider: 09/16/21 08:50 Source: patient, RN notes reviewed Mode of arrival: ambulatory Limitations: no limitations - History of Present Illness Initial comments: 61-year-old male presents emergency Department with chief complaint of nausea vomiting. Patient has been having on and off issues. Patient states that he had some epigastric pain when he was throwing up. He has no chest pain or shortness of breath at this time he does have underlying COPD, type 1 diabetes. Patient states blood sugar has been waxing and waning. Patient has no dysuria did have some urinary frequency no diarrhea no constipation. - Related Data Home Medications Medication Instructions Recorded Confirmed Omeprazole 20 mg PO BID 06/13/17 08/30/21 Pioglitazone HCl [Actos] 15 mg PO DAILY 10/03/18 08/30/21 Diphenox-Atrop 2.5-0.025 mg 1 tab PO BID PRN 11/17/19 08/30/21 [Lomotil] Rosuvastatin [Crestor] 10 mg PO HS 05/15/20 08/30/21 HYDROcodone/APAP 10-325MG [[place] 1 tab PO TID PRN 06/15/21 08/30/21 10-325] Latanoprost/Pf [Latanoprost 0.005% 1 drop BOTH EYES HS 06/15/21 08/30/21 Eye Drop] Phenytoin Sodium Extended 60 mg PO BID 07/14/21 08/30/21 [Dilantin] Acetaminophen Tab [Tylenol] 325 mg PO Q6HR PRN 07/17/21 08/30/21 Acetaminophen-Codeine 300-30mg 1 tab PO TID PRN 07/17/21 08/30/21 [Tylenol w/codeine #3] Insulin Glargine [Lantus Vial] 50 unit SQ DAILY 07/29/21 08/30/21 traMADol HCL [Ultram] 50 mg PO Q6H PRN 07/29/21 08/30/21 Ketorolac 0.5% Ophth Soln [Acular 1 drops LEFT EYE BID 08/30/21 08/30/21 0.5%] Loteprednol Etabonate [Inveltys] 1 drop LEFT EYE BID 08/30/21 08/30/21 Previous Rx's Medication Instructions Recorded Ondansetron Odt [Zofran Odt] 4 mg PO Q8HR PRN #12 tab 07/29/21 Allergies Allergy/AdvReac Type Severity Reaction Status Date / Time No Known Allergies Allergy Verified 09/16/21 08:37 Review of Systems ROS Statement: Those systems with pertinent positive or pertinent negative responses have been documented in the HPI. ROS Other: All systems not noted in ROS Statement are negative. Past Medical History Past Medical History: Diabetes Mellitus, Diabetes Mellitus, GERD/Reflux, Hyperlipidemia, Osteoarthritis (OA), Seizure Disorder Additional Past Medical History / Comment(s): IDDM type 1 per pt, bilateral feet neuropathy, pt states current wounds to bilateral feet/goes to [facility]/seen by Dr. Major (circular [place]), past L lower extremity cellulitis with sepsis, L wrist cancerous tumor removed, past seizure about a year ago, arthritis L knee, vertigo, occasional diarrhea. History of Any Multi-Drug Resistant Organisms: MRSA Date of last positivie culture/infection: 12/29/19 MDRO Source:: Left Leg Past Surgical History: Orthopedic Surgery, Tonsillectomy Additional Past Surgical History / Comment(s): 01/23/20 angiogram L leg, 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, colonoscopy, L eye surgery for strabismus. Past Anesthesia/Blood Transfusion Reactions: No Reported Reaction Past Psychological History: Depression Smoking Status: Never smoker Past Alcohol Use History: None Reported Past Drug Use History: None Reported - Past Family History Father Family Medical History: Myocardial Infarction ([place]) Additional Family Medical History / Comment(s): Father of a [place] at the age of 57yrs. Mother Family Medical History: Cancer Additional Family Medical History / Comment(s): Mother from cancer at the age of 61 or 62 . Pt cannot recall type of cancer. Sister(s) Family Medical History: Diabetes Mellitus Additional Family Medical History / Comment(s): Sister had DM type 1. She is . General Exam Limitations: no limitations Head exam: Present: atraumatic, normocephalic, normal inspection Eye exam: Present: normal appearance, PERRL, EOMI. Absent: scleral icterus, conjunctival injection, periorbital swelling ENT exam: Present: normal exam, mucous membranes moist Neck exam: Present: normal inspection, full ROM. Absent: tenderness, men ingismus, lymphadenopathy Respiratory exam: Present: normal lung sounds bilaterally. Absent: respiratory distress, wheezes, rales, rhonchi, stridor Cardiovascular Exam: Present: regular rate, normal rhythm, normal heart sounds. Absent: systolic murmur, diastolic murmur, rubs, gallop, clicks GI/Abdominal exam: Present: soft, tenderness (Mild epigastric), normal bowel sounds. Absent: distended, guarding, rebound, rigid Back exam: Absent: CVA tenderness (R), CVA tenderness (L) Neurological exam: Present: alert Skin exam: Present: warm, dry, intact, normal color. Absent: rash Course Vital Signs 09/16/21 09/16/21 09/16/21 08:34 09:39 11:07 Temperature 98.2 F 98.2 F Pulse Rate 125 H 106 H Respiratory 18 18 18 Rate Blood Pressure 125/74 127/77 O2 Sat by Pulse 98 100 Oximetry Medical Decision Making - Medical Decision Making 61-year-old presented for nausea vomiting epigastric discomfort. Patient workup is essentially negative other than hyperglycemia. Patient was well hydrated, given insulin. Symptoms are improving. He states he has no nausea currently vitals have improved, troponin is negative. Patient is advised to have restricted diet, follow-up with his PCP Dr. Chne return for any worsening celestin ge in symptoms. - Lab Data Result diagrams: 09/16/21 09:28 09/16/21 09:28 Lab Results 09/16/21 09/16/21 09/16/21 Range/Units 09:28 09:28 09:28 WBC 9.8 (3.8-10.6) k/uL RBC 4.10 L (4.30-5.90) m/uL Hgb 9.1 L (13.0-17.5) gm/dL Hct 29.9 L (39.0-53.0) % MCV 72.9 L (80.0-100.0) fL MCH 22.2 L (25.0-35.0) pg MCHC 30.5 L (31.0-37.0) g/dL RDW 15.3 (11.5-15.5) % Plt Count 661 H (150-450) k/uL MPV 6.3 Neutrophils % 82 % Lymphocytes % 11 % Monocytes % 4 % Eosinophils % 0 % Basophils % 1 % Neutrophils # 8.0 H (1.3-7.7) k/uL Lymphocytes # 1.1 (1.0-4.8) k/uL Monocytes # 0.4 (0-1.0) k/uL Eosinophils # 0.0 (0-0.7) k/uL Basophils # 0.1 (0-0.2) k/uL Hypochromasia Marked Microcytosis Slight PT 9.7 (9.0-12.0) sec INR 0.9 (<1.2) APTT 25.0 (22.0-30.0) sec Sodium 130 L (137-145) mmol/L Potassium 4.6 (3.5-5.1) mmol/L Chloride 93 L (98-107) mmol/L Carbon Dioxide 24 (22-30) mmol/L Anion Gap 13 mmol/L BUN 20 (9-20) mg/dL Creatinine 0.81 (0.66-1.25) mg/dL Est GFR (CKD-EPI)AfAm >90 (>60 ml/min/1.73 sqM) Est GFR (CKD-EPI)NonAf >90 (>60 ml/min/1.73 sqM) Glucose 589 H* (74-99) mg/dL POC Glucose (mg/dL) (70-110) mg/dL POC Glu Medication Specialist ID Calcium 8.9 (8.4-10.2) mg/dL Magnesium 1.9 (1.6-2.3) mg/dL Total Bilirubin 0.2 (0.2-1.3) mg/dL AST 18 (17-59) U/L ALT 14 (4-49) U/L Alkaline Phosphatase 149 H (38-126) U/L Troponin I (0.000-0.034) ng/mL Total Protein 7.2 (6.3-8.2) g/dL Albumin 3.7 (3.5-5.0) g/dL Lipase 180 (23-300) U/L Urine Color Urine Appearance (Clear) Urine pH (5.0-8.0) Ur Specific [place] (1.001-1.035) Urine Protein (Negative) Urine Glucose (UA) (Negative) Urine Ketones (Negative) Urine Blood (Negative) Urine Nitrite (Negative) Urine Bilirubin (Negative) Urine Urobilinogen (<2.0) mg/dL Ur Leukocyte Esterase (Negative) 09/16/21 09/16/21 09/16/21 Range/Units 09:28 09:28 10:55 WBC (3.8-10.6) k/uL RBC (4.30-5.90) m/uL Hgb (13.0-17.5) gm/dL Hct (39.0-53.0) % MCV (80.0-100.0) fL MCH (25.0-35.0) pg MCHC (31.0-37.0) g/dL RDW (11.5-15.5) % Plt Count (150-450) k/uL MPV Neutrophils % % Lymphocytes % % Monocytes % % Eosinophils % % Basophils % % Neutrophils # (1.3-7.7) k/uL Lymphocytes # (1.0-4.8) k/uL Monocytes # (0-1.0) k/uL Eosinophils # (0-0.7) k/uL Basophils # (0-0.2) k/uL Hypochromasia Microcytosis PT (9.0-12.0) sec INR (<1.2) APTT (22.0-30.0) sec Sodium (137-145) mmol/L Potassium (3.5-5.1) mmol/L Chloride (98-107) mmol/L Carbon Dioxide (22-30) mmol/L Anion Gap mmol/L BUN (9-20) mg/dL Creatinine (0.66-1.25) mg/dL Est GFR (CKD-EPI)AfAm (>60 ml/min/1.73 sqM) Est GFR (CKD-EPI)NonAf (>60 ml/min/1.73 sqM) Glucose (74-99) mg/dL POC Glucose (mg/dL) 442 H (70-110) mg/dL POC Glu Medication Specialist ID Belval, Renuka Calcium (8.4-10.2) mg/dL Magnesium (1.6-2.3) mg/dL Total Bilirubin (0.2-1.3) mg/dL AST (17-59) U/L ALT (4-49) U/L Alkaline Phosphatase (38-126) U/L Troponin I <0.012 (0.000-0.034) ng/mL Total Protein (6.3-8.2) g/dL Albumin (3.5-5.0) g/dL Lipase (23-300) U/L Urine Color Colorless Urine Appearance Clear (Clear) Urine pH 6.0 (5.0-8.0) Ur Specific [place] 1.024 (1.001-1.035) Urine Protein Trace H (Negative) Urine Glucose (UA) 4+ H (Negative) Urine Ketones 1+ H (Negative) Urine Blood Negative (Negative) Urine Nitrite Negative (Negative) Urine Bilirubin Negative (Negative) Urine Urobilinogen <2.0 (<2.0) mg/dL Ur Leukocyte Esterase Negative (Negative) 09/16/21 Range/Units 11:17 WBC (3.8-10.6) k/uL RBC (4.30-5.90) m/uL Hgb (13.0-17.5) gm/dL Hct (39.0-53.0) % MCV (80.0-100.0) fL MCH (25.0-35.0) pg MCHC (31.0-37.0) g/dL RDW (11.5-15.5) % Plt Count (150-450) k/uL MPV Neutrophils % % Lymphocytes % % Monocytes % % Eosinophils % % Basophils % % Neutrophils # (1.3-7.7) k/uL Lymphocytes # (1.0-4.8) k/uL Monocytes # (0-1.0) k/uL Eosinophils # (0-0.7) k/uL Basophils # (0-0.2) k/uL Hypochromasia Microcytosis PT (9.0-12.0) sec INR (<1.2) APTT (22.0-30.0) sec Sodium (137-145) mmol/L Potassium (3.5-5.1) mmol/L Chloride (98-107) mmol/L Carbon Dioxide (22-30) mmol/L Anion Gap mmol/L BUN (9-20) mg/dL Creatinine (0.66-1.25) mg/dL Est GFR (CKD-EPI)AfAm (>60 ml/min/1.73 sqM) Est GFR (CKD-EPI)NonAf (>60 ml/min/1.73 sqM) Glucose (74-99) mg/dL POC Glucose (mg/dL) 363 H (70-110) mg/dL POC Glu Medication Specialist ID Shaji Murillo Calcium (8.4-10.2) mg/dL Magnesium (1.6-2.3) mg/dL Total Bilirubin (0.2-1.3) mg/dL AST (17-59) U/L ALT (4-49) U/L Alkaline Phosphatase (38-126) U/L Troponin I (0.000-0.034) ng/mL Total Protein (6.3-8.2) g/dL Albumin (3.5-5.0) g/dL Lipase (23-300) U/L Urine Color Urine Appearance (Clear) Urine pH (5.0-8.0) Ur Specific [place] (1.001-1.035) Urine Protein (Negative) Urine Glucose (UA) (Negative) Urine Ketones (Negative) Urine Blood (Negative) Urine Nitrite (Negative) Urine Bilirubin (Negative) Urine Urobilinogen (<2.0) mg/dL Ur Leukocyte Esterase (Negative) Disposition Clinical Impression: Hyperglycemia, Nausea & vomiting Disposition: HOME SELF-CARE Condition: Stable Instructions (If sedation given, give patient instructions): Diabetic Hyperglycemia (ED) Additional Instructions: Please return to the Emergency Department if symptoms worsen or any other concerns. Is patient prescribed a controlled substance at d/c from ED?: No Referrals: Helen Chen MD [Primary Care Provider] - 1-2 days Time of Disposition: 11:22
[2021-09-16 10:58] LABS: Glucose,Whole Blood 442 mg/dL (70-110)
[2021-09-16 11:09] VITALS: BP 127/77; PULSE 106
[2021-09-16] MEDS: INSULIN REGULAR 100 UNIT/ML VIAL (IV) IV ONE ×2 (11:16→12:09)
[2021-09-16 11:19] LABS: Glucose,Whole Blood 363 mg/dL (70-110)
[2021-09-16 12:04] LABS: Glucose,Whole Blood 312 mg/dL (70-110)
== END 2021-09-16 12:13 | disposition home or self-care (01) ==
LOC: EC 08:29
DX: R73.9 Hyperglycemia, unspecified (principal); R11.2 Nausea with vomiting, unspecified; E78.5 Hyperlipidemia, unspecified; I25.2 Old myocardial infarction; K21.9 Gastro-esophageal reflux disease without esophagitis
CPT/HCPCS: 36415; 93005; 80053; 83690; 83735; 84484; 85025; 85610; 85730; 81003; 71046; 99285; 96374; 96361; J2405

== ENCOUNTER 2021-09-23 15:25 | Inpatient (IN) | payer OTHER ==
[2021-09-23] MEDS ORDERED: SODIUM CHLORIDE 0.9% 1,000 ML IV STA ×3 (17:42→20:09)
[2021-09-23] MEDS ORDERED: ONDANSETRON 4 MG/2 ML VIAL IVP STA (17:42)
[2021-09-23 18:23] LABS: Basophils % (A) 0 %; Eosinophils % (A) 0 %; HGB 9.9 gm/dL (13.0-17.5); Hypochromasia Marked; Lymphocytes # (A) 0.9 k/uL (1.0-4.8); Lymphocytes % (A) 9 %; MCH 21.1 pg (25.0-35.0); MCHC 28.4 g/dL (31.0-37.0); MCV 74.3 fL (80.0-100.0); Mean Platelet Volume 6.8; Microcytosis Slight; Monocytes # (A) 0.3 k/uL (0-1.0); Monocytes % (A) 3 %; Neutrophils # (A) 9.1 k/uL (1.3-7.7); Neutrophils % (A) 88 %; Platelet Count 659 k/uL (150-450); RBC 4.71 m/uL (4.30-5.90); RDW 15.3 % (11.5-15.5); WBC 10.4 k/uL (3.8-10.6)
[2021-09-23 18:25] LABS: VBG PH 7.33 (7.31-7.41)
--- NOTE | 2021-09-23 18:32 | ED ---
Nausea/Vomiting/Diarrhea HPI - General Chief complaint: Nausea/Vomiting/Diarrhea Stated complaint: JUSTO Time Seen by Provider: 09/23/21 17:23 Source: patient, RN notes reviewed Mode of arrival: ambulatory Limitations: no limitations - History of Present Illness Initial comments: This is a 61-year-old male who presents to the emergency department with nausea, vomiting, and difficulty breathing. He was evaluated in the emergency department for this 7 days ago, he was diagnosed diabetic hyperglycemia and discharged home. Patient states that his symptoms continue to progress and he is hoping to be admitted. States "I will use the other hospital if I need to". Today, the patient was found lying in the street, and was dropped off by a bystander. Denies any associated abdominal pain. Denies any fevers, chills, sore throat, cough, chest pain, palpitations, abdominal pain, diarrhea, back pain, or headaches. MD complaint: nausea, vomiting, other (JUSTO) Onset/Timin -: week(s) Associated Abdominal Pain: No Associated Symptoms: shortness of breath - Related Data Home Medications Medication Instructions Recorded Confirmed Omeprazole 20 mg PO AC-BID 06/13/17 09/23/21 Pioglitazone HCl [Actos] 15 mg PO DAILY 10/03/18 09/23/21 Diphenox-Atrop 2.5-0.025 mg 1 tab PO BID PRN 11/17/19 09/23/21 [Lomotil] Rosuvastatin [Crestor] 10 mg PO HS 05/15/20 09/23/21 HYDROcodone/APAP 10-325MG [[place] 1 tab PO TID PRN 06/15/21 09/23/21 10-325] Latanoprost/Pf [Latanoprost 0.005% 1 drop BOTH EYES HS 06/15/21 09/23/21 Eye Drop] Phenytoin Sodium Extended 60 mg PO BID 07/14/21 09/23/21 [Dilantin] Acetaminophen Tab [Tylenol] 325 mg PO Q6HR PRN 07/17/21 09/23/21 Acetaminophen-Codeine 300-30mg 1 tab PO TID PRN 07/17/21 09/23/21 [Tylenol w/codeine #3] Insulin Glargine [Lantus Vial] 50 unit SQ DAILY 07/29/21 09/23/21 traMADol HCL [Ultram] 50 mg PO Q6H PRN 07/29/21 09/23/21 Ketorolac 0.5% Ophth Soln [Acular 1 drops LEFT EYE BID 08/30/21 09/23/21 0.5%] Loteprednol Etabonate [Inveltys] 1 drop LEFT EYE BID 08/30/21 09/23/21 INSULIN ASPART (NovoLOG) [NovoLOG See Protocol SQ AC-TID PRN 09/23/21 09/23/21 (formulary)] Mupirocin 2% Oint [Bactroban 2% 1 applic TOPICAL DAILY 09/23/21 09/23/21 Oint] Triamcinolone 0.5% Cream [Kenalog 1 applic TOPICAL DAILY 09/23/21 09/23/21 0.5% Cream] Previous Rx's Medication Instructions Recorded Ondansetron Odt [Zofran Odt] 4 mg PO Q8HR PRN #12 tab 07/29/21 Allergies Allergy/AdvReac Type Severity Reaction Status Date / Time No Known Allergies Allergy Verified 09/23/21 21:13 Review of Systems ROS Statement: Those systems with pertinent positive or pertinent negative responses have been documented in the HPI. ROS Other: All systems not noted in ROS Statement are negative. 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 History of Any Multi-Drug Resistant Organisms: MRSA Date of last positivie culture/infection: 12/29/19 MDRO Source:: Left Leg Past Surgical History: Orthopedic Surgery, Tonsillectomy Additional Past Surgical History / Comment(s): 01/23/20 angiogram L leg, 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, colonoscopy, L eye surgery for strabismus. Past Anesthesia/Blood Transfusion Reactions: No Reported Reaction Past Psychological History: Depression Smoking Status: Never smoker Past Alcohol Use History: None Reported Past Drug Use History: None Reported - Past Family History Father Family Medical History: Myocardial Infarction (SC) Additional Family Medical History / Comment(s): Father of a SC at the age of 57yrs. Mother Family Medical History: Cancer Additional Family Medical History / Comment(s): Mother from cancer at the age of 61 or 62 . Pt cannot recall type of cancer. Sister(s) Family Medical History: Diabetes Mellitus Additional Family Medical History / Comment(s): Sister had DM type 1. She is . General Exam Limitations: no limitations General appearance: alert, in distress Head exam: Present: atraumatic, normocephalic, normal inspection Respiratory exam: Present: normal lung sounds bilaterally. Absent: respiratory distress, wheezes, rales, rhonchi, stridor Cardiovascular Exam: Present: regular rate, normal rhythm, normal heart sounds. Absent: systolic murmur, diastolic murmur, rubs, gallop, clicks Neurological exam: Present: alert, oriented X3, CN II-XII intact Psychiatric exam: Present: normal affect, normal mood Skin exam: Present: warm, dry, intact, normal color. Absent: rash Course Vital Signs 09/23/21 09/23/21 09/23/21 15:45 18:58 20:58 Temperature 98.4 F Pulse Rate 105 H 91 89 Pulse Rate [ Diploma Maker ] Respiratory 16 18 18 Rate Blood Pressure 98/56 129/72 128/80 Blood Pressure [Right Arm] O2 Sat by Pulse 99 99 100 Oximetry 09/24/21 00:00 Temperature 97.7 F Pulse Rate Pulse Rate [ 90 Diploma Maker ] Respiratory 20 Rate Blood Pressure Blood Pressure 135/74 [Right Arm] O2 Sat by Pulse 93 L Oximetry Medical Decision Making - Medical Decision Making This is a 61-year-old male who presents to the emergency department for nausea, vomiting, and difficulty breathing. Chest x-ray revealed no acute cardi opulmonary process. Lab work is consistent with developing/mild DKA. His pH is 7.33, however he is acetone positive with a bicarb of 20 and an anion gap of 19. He also has hyperkalemia and hyperphosphatemia. Patient will be admitted to medicine for management of diabetes and electrolytes. This case was discussed in detail with the attending ED physician. Presentation, findings, and treatment plan discussed in detail as well. - Lab Data Result diagrams: 09/23/21 18:13 09/24/21 00:24 Lab Results 09/23/21 09/23/21 09/23/21 Range/Units 18:13 18:13 18:13 WBC 10.4 (3.8-10.6) k/uL RBC 4.71 (4.30-5.90) m/uL Hgb 9.9 L (13.0-17.5) gm/dL Hct 35.0 L (39.0-53.0) % MCV 74.3 L (80.0-100.0) fL MCH 21.1 L (25.0-35.0) pg MCHC 28.4 L (31.0-37.0) g/dL RDW 15.3 (11.5-15.5) % Plt Count 659 H (150-450) k/uL MPV 6.8 Neutrophils % 88 % Lymphocytes % 9 % Monocytes % 3 % Eosinophils % 0 % Basophils % 0 % Neutrophils # 9.1 H (1.3-7.7) k/uL Lymphocytes # 0.9 L (1.0-4.8) k/uL Monocytes # 0.3 (0-1.0) k/uL Eosinophils # 0.0 (0-0.7) k/uL Basophils # 0.0 (0-0.2) k/uL Hypochromasia Marked Microcytosis Slight VBG pH (7.31-7.41) VBG pCO2 (37-51) mmHg VBG HCO3 (24-28) mmol/L Sodium 132 L (137-145) mmol/L Potassium 5.3 H (3.5-5.1) mmol/L Chloride 93 L (98-107) mmol/L Carbon Dioxide 20 L (22-30) mmol/L Anion Gap 19 mmol/L BUN 21 H (9-20) mg/dL Creatinine 0.89 (0.66-1.25) mg/dL Est GFR (CKD-EPI)AfAm >90 (>60 ml/min/1.73 sqM) Est GFR (CKD-EPI)NonAf >90 (>60 ml/min/1.73 sqM) Glucose 484 H (74-99) mg/dL Calcium 9.4 (8.4-10.2) mg/dL Phosphorus (2.5-4.5) mg/dL Magnesium (1.6-2.3) mg/dL Total Bilirubin 0.3 (0.2-1.3) mg/dL AST 18 (17-59) U/L ALT 11 (4-49) U/L Alkaline Phosphatase 144 H (38-126) U/L Total Protein 7.7 (6.3-8.2) g/dL Albumin 4.1 (3.5-5.0) g/dL Amylase 61 (30-110) U/L Lipase 107 (23-300) U/L Urine Color Light Yellow Urine Appearance Clear (Clear) Urine pH 5.5 (5.0-8.0) Ur Specific [place] 1.026 (1.001-1.035) Urine Protein Negative (Negative) Urine Glucose (UA) 4+ H (Negative) Urine Ketones 4+ H (Negative) Urine Blood Negative (Negative) Urine Nitrite Negative (Negative) Urine Bilirubin Negative (Negative) Urine Urobilinogen <2.0 (<2.0) mg/dL Ur Leukocyte Esterase Negative (Negative) Acetone, Qual Positive (Negative) Coronavirus (PCR) (Not Detectd) Influenza Type A RNA (Not Detectd) Influenza Type B (PCR) (Not Detectd) 09/23/21 09/23/21 09/23/21 Range/Units 18:13 18:13 18:13 WBC (3.8-10.6) k/uL RBC (4.30-5.90) m/uL Hgb (13.0-17.5) gm/dL Hct (39.0-53.0) % MCV (80.0-100.0) fL MCH (25.0-35.0) pg MCHC (31.0-37.0) g/dL RDW (11.5-15.5) % Plt Count (150-450) k/uL MPV Neutrophils % % Lymphocytes % % Monocytes % % Eosinophils % % Basophils % % Neutrophils # (1.3-7.7) k/uL Lymphocytes # (1.0-4.8) k/uL Monocytes # (0-1.0) k/uL Eosinophils # (0-0.7) k/uL Basophils # (0-0.2) k/uL Hypochromasia Microcytosis VBG pH 7.33 (7.31-7.41) VBG pCO2 35 L (37-51) mmHg VBG HCO3 18 L (24-28) mmol/L Sodium (137-145) mmol/L Potassium (3.5-5.1) mmol/L Chloride (98-107) mmol/L Carbon Dioxide (22-30) mmol/L Anion Gap mmol/L BUN (9-20) mg/dL Creatinine (0.66-1.25) mg/dL Est GFR (CKD-EPI)AfAm (>60 ml/min/1.73 sqM) Est GFR (CKD-EPI)NonAf (>60 ml/min/1.73 sqM) Glucose (74-99) mg/dL Calcium (8.4-10.2) mg/dL Phosphorus (2.5-4.5) mg/dL Magnesium (1.6-2.3) mg/dL Total Bilirubin (0.2-1.3) mg/dL AST (17-59) U/L ALT (4-49) U/L Alkaline Phosphatase (38-126) U/L Total Protein (6.3-8.2) g/dL Albumin (3.5-5.0) g/dL Amylase (30-110) U/L Lipase (23-300) U/L Urine Color Urine Appearance (Clear) Urine pH (5.0-8.0) Ur Specific [place] (1.001-1.035) Urine Protein (Negative) Urine Glucose (UA) (Negative) Urine Ketones (Negative) Urine Blood (Negative) Urine Nitrite (Negative) Urine Bilirubin (Negative) Urine Urobilinogen (<2.0) mg/dL Ur Leukocyte Esterase (Negative) Acetone, Qual (Negative) Coronavirus (PCR) Not Detected (Not Detectd) Influenza Type A RNA Not Detected (Not Detectd) Influenza Type B (PCR) Not Detected (Not Detectd) 09/23/21 Range/Units 18:13 WBC (3.8-10.6) k/uL RBC (4.30-5.90) m/uL Hgb (13.0-17.5) gm/dL Hct (39.0-53.0) % MCV (80.0-100.0) fL MCH (25.0-35.0) pg MCHC (31.0-37.0) g/dL RDW (11.5-15.5) % Plt Count (150-450) k/uL MPV Neutrophils % % Lymphocytes % % Monocytes % % Eosinophils % % Basophils % % Neutrophils # (1.3-7.7) k/uL Lymphocytes # (1.0-4.8) k/uL Monocytes # (0-1.0) k/uL Eosinophils # (0-0.7) k/uL Basophils # (0-0.2) k/uL Hypochromasia Microcytosis VBG pH (7.31-7.41) VBG pCO2 (37-51) mmHg VBG HCO3 (24-28) mmol/L Sodium (137-145) mmol/L Potassium (3.5-5.1) mmol/L Chloride (98-107) mmol/L Carbon Dioxide (22-30) mmol/L Anion Gap mmol/L BUN (9-20) mg/dL Creatinine (0.66-1.25) mg/dL Est GFR (CKD-EPI)AfAm (>60 ml/min/1.73 sqM) Est GFR (CKD-EPI)NonAf (>60 ml/min/1.73 sqM) Glucose (74-99) mg/dL Calcium (8.4-10.2) mg/dL Phosphorus 5.5 H (2.5-4.5) mg/dL Magnesium 2.2 (1.6-2.3) mg/dL Total Bilirubin (0.2-1.3) mg/dL AST (17-59) U/L ALT (4-49) U/L Alkaline Phosphatase (38-126) U/L Total Protein (6.3-8.2) g/dL Albumin (3.5-5.0) g/dL Amylase (30-110) U/L Lipase (23-300) U/L Urine Color Urine Appearance (Clear) Urine pH (5.0-8.0) Ur Specific [place] (1.001-1.035) Urine Protein (Negative) Urine Glucose (UA) (Negative) Urine Ketones (Negative) Urine Blood (Negative) Urine Nitrite (Negative) Urine Bilirubin (Negative) Urine Urobilinogen (<2.0) mg/dL Ur Leukocyte Esterase (Negative) Acetone, Qual (Negative) Coronavirus (PCR) (Not Detectd) Influenza Type A RNA (Not Detectd) Influenza Type B (PCR) (Not Detectd) - EKG Data EKG Comments: Sinus rhythm. Ventricular rate 82 bpm, DC interval 130 milliseconds, QRS duration 89 ms, QTC 411 ms. - Radiology Data Radiology results: report reviewed, image reviewed Disposition Clinical Impression: Hyperkalemia, DKA (diabetic ketoacidoses) Disposition: ADMITTED IP TO THIS HOSP
[2021-09-23 18:41] LABS: ALT 11 U/L (4-49); AST 18 U/L (17-59); African American GFR (CKD) >90 (>60 ml/min/1.73 sqM); Albumin 4.1 g/dL (3.5-5.0); Alkaline Phosphatase 144 U/L (38-126); Amylase 61 U/L (30-110); Anion Gap 19 mmol/L; Blood Urea Nitrogen 21 mg/dL (9-20); Calcium 9.4 mg/dL (8.4-10.2); Carbon Dioxide 20 mmol/L (22-30); Chloride 93 mmol/L (98-107); Glucose 484 mg/dL (74-99); Lipase 107 U/L (23-300); Non-African American GFR(CKD) >90 (>60 ml/min/1.73 sqM); Potassium 5.3 mmol/L (3.5-5.1); Sodium 132 mmol/L (137-145); Total Bilirubin 0.3 mg/dL (0.2-1.3); Total Protein 7.7 g/dL (6.3-8.2)
--- NOTE | 2021-09-23 18:51 | XR ---
EXAMINATION TYPE: XR chest 2V DATE OF EXAM: 09/23/2021 COMPARISON: 09/16/2021 HISTORY: Short of breath TECHNIQUE: 2 views FINDINGS: Heart and mediastinum are normal. Lungs are clear. Diaphragm is normal. Bony thorax is inta ct. IMPRESSION: Normal chest. No change.
[2021-09-23] MEDS ORDERED: INSULIN REGULAR 100 UNIT/ML VIAL (IV) IV ONE (18:53)
[2021-09-23 19:21] LABS: Magnesium 2.2 mg/dL (1.6-2.3); Phosphorus 5.5 mg/dL (2.5-4.5)
[2021-09-23] MEDS ORDERED: SODIUM CHLORIDE 0.9% 1,000 ML IV SCH (19:30)
[2021-09-23 19:56] LABS: Glucose,Whole Blood 293 mg/dL (70-110)
[2021-09-23] MEDS ORDERED: INSULIN REGULAR 100 UNIT in SODIUM CHLORIDE 0.9% 100 ML IV SCH (20:00)
[2021-09-23] MEDS ORDERED: ONDANSETRON 4 MG/2 ML VIAL IVP PRN (20:07)
[2021-09-23] MEDS ORDERED: ACETAMINOPHEN TAB 325 MG TAB PO PRN (20:07)
[2021-09-23] MEDS ORDERED: KETOROLAC 15 MG/ML 1 ML VIAL IVP PRN (20:07)
[2021-09-23] MEDS ORDERED: NALOXONE 0.4 MG/ML 1 ML VIAL IV PRN (20:07)
[2021-09-23 20:10] LABS: Appearance,Urine Clear (Clear); Bilirubin,Urine Negative (Negative); Blood,Urine Negative (Negative); Color,Urine Light Yellow; Glucose,Urine (UA) 4+ (Negative); Leukocyte Esterase,Urine Negative (Negative); Nitrite,Urine Negative (Negative); PH, Urine 5.5 (5.0-8.0); Protein,Urine Negative (Negative); Specific Gravity,Urine 1.026 (1.001-1.035); Urobilinogen,Urine <2.0 mg/dL (<2.0)
[2021-09-23] MEDS ORDERED: D5-0.45% NACL WITH KCL 20MEQ/L 1,000 ML IV SCH (20:15)
[2021-09-23 20:30] LABS: Ketones,Urine 4+ (Negative)
[2021-09-23 20:57] LABS: Glucose,Whole Blood 213 mg/dL (70-110)
[2021-09-23 21:28] LABS: African American GFR (CKD) >90 (>60 ml/min/1.73 sqM); Anion Gap 12 mmol/L; Blood Urea Nitrogen 18 mg/dL (9-20); Carbon Dioxide 22 mmol/L (22-30); Chloride 103 mmol/L (98-107); Glucose 200 mg/dL (74-99); Non-African American GFR(CKD) >90 (>60 ml/min/1.73 sqM); Potassium 4.6 mmol/L (3.5-5.1); Sodium 137 mmol/L (137-145)
[2021-09-23] MEDS: PANTOPRAZOLE 40 MG TABLET PO SCH (23:40)
[2021-09-23] MEDS: LOTEPREDNOL ETABONATE LEFT EYE SCH (23:43)
[2021-09-23] MEDS: ATORVASTATIN 20 MG TAB PO SCH (23:52)
[2021-09-23] MEDS: KETOROLAC 0.5% OPHTH DROPS 5 ML BTL LEFT EYE SCH (23:53)
[2021-09-23] MEDS: LATANOPROST 0.005% OPHTH DROPS 2.5 ML BTL BOTH EYES SCH (23:54)
[2021-09-24 01:22] LABS: African American GFR (CKD) >90 (>60 ml/min/1.73 sqM); Anion Gap 11 mmol/L; Blood Urea Nitrogen 18 mg/dL (9-20); Carbon Dioxide 20 mmol/L (22-30); Chloride 105 mmol/L (98-107); Glucose 226 mg/dL (74-99); Non-African American GFR(CKD) >90 (>60 ml/min/1.73 sqM); Sodium 136 mmol/L (137-145)
[2021-09-24 01:27] LABS: Glucose,Whole Blood 247 mg/dL (70-110)
[2021-09-24 05:17] LABS: Urine Alcohol Negative (Negative); Urine Barbiturate Negative (Negative); Urine Cocaine Negative (Negative); Urine Methadone Negative (Negative); Urine Opiates Negative (Negative); Urine Phencyclidine Negative (Negative)
[2021-09-24 06:51] LABS: Glucose,Whole Blood 292 mg/dL (70-110)
[2021-09-24] MEDS: INSULIN ASPART (NovoLOG) 100 UNIT/ML VIAL SQ SCH ×4 (06:56→21:00)
[2021-09-24] MEDS: PIOGLITAZONE 15 MG TAB PO SCH (08:30)
[2021-09-24] MEDS: LATANOPROST 0.005% OPHTH DROPS 2.5 ML BTL BOTH EYES SCH ×2 (08:30→22:09)
[2021-09-24] MEDS: KETOROLAC 0.5% OPHTH DROPS 5 ML BTL LEFT EYE SCH ×2 (08:30→22:09)
[2021-09-24] MEDS: LOTEPREDNOL ETABONATE LEFT EYE SCH ×2 (09:37→21:02)
[2021-09-24] MEDS: PANTOPRAZOLE 40 MG TABLET PO SCH ×2 (10:14→17:38)
[2021-09-24] MEDS: NON FORMULARY DRUG (Phenytoin Sodium Extended [Dilantin] 30 MG Capsule) PO SCH ×2 (10:15→21:01)
[2021-09-24 13:03] LABS: Glucose,Whole Blood 304 mg/dL (70-110)
[2021-09-24 16:54] LABS: Glucose,Whole Blood 360 mg/dL (70-110)
[2021-09-24] MEDS ORDERED: SODIUM CHLORIDE 0.9% 1,000 ML IV STA (19:36)
[2021-09-24 20:46] LABS: Glucose,Whole Blood 404 mg/dL (70-110)
[2021-09-24] MEDS: ATORVASTATIN 20 MG TAB PO SCH (20:47)
[2021-09-25 00:37] LABS: Glucose,Whole Blood 307 mg/dL (70-110)
[2021-09-25 07:16] LABS: Glucose,Whole Blood 441 mg/dL (70-110)
[2021-09-25] MEDS: KETOROLAC 0.5% OPHTH DROPS 5 ML BTL LEFT EYE SCH ×2 (07:55→20:51)
[2021-09-25] MEDS: PANTOPRAZOLE 40 MG TABLET PO SCH ×2 (07:55→17:30)
[2021-09-25] MEDS: INSULIN ASPART (NovoLOG) 100 UNIT/ML VIAL SQ SCH ×4 (07:55→20:51)
[2021-09-25] MEDS: PIOGLITAZONE 15 MG TAB PO SCH (07:55)
[2021-09-25] MEDS: LOTEPREDNOL ETABONATE LEFT EYE SCH ×2 (07:56→20:54)
[2021-09-25] MEDS: NON FORMULARY DRUG (Phenytoin Sodium Extended [Dilantin] 30 MG Capsule) PO SCH ×2 (07:56→20:54)
--- NOTE | 2021-09-25 08:05 | P.GSCN ---
History of Present Illness History of present illness: 61-year-old diabetic male patient is well known to me from the wound clinic patient had a left foot big toe amputation done 3 weeks ago patient with history of 4 nausea vomiting and difficulty in breathing patient also has a wound on the left ankle patient had a surgery for infected tendocalcaneus in the past the wound is granulating today we removed the stitches from the left foot big toe patient was supposed to come to the wound clinic he missed her appointments Neck is supple Chest few crackles the lung bases first and second sound present abdomen soft nontender Vascular femorals are 1+ bilateral patient has a chronic wound on the left ankle is of the wound is granulating and patient also had a left big toe amputation we removed the stitches there is slight redness noted noted around the stump site dressing is changed we'll use Aquacel silver to the left ankle which should be changed every 48 hours follow with you Past Medical History Past Medical History: Diabetes Mellitus, Diabetes Mellitus, GERD/Reflux, Hyperlipidemia, Osteoarthritis (OA), Seizure Disorder Additional Past Medical History / Comment(s): IDDM type 1 per pt, bilateral feet neuropathy, pt states current wounds to bilateral feet/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 History of Any Multi-Drug Resistant Organisms: MRSA Year Discovered:: 12/29/19 MDRO Source:: Left Leg Past Surgical History: Orthopedic Surgery, Tonsillectomy Additional Past Surgical History / Comment(s): 01/23/20 angiogram L leg, 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, colonoscopy, L eye surgery for strabismus. Past Anesthesia/Blood Transfusion Reactions: No Reported Reaction Past Psychological History: Depression Smoking Status: Never smoker Past Alcohol Use History: None Reported Past Drug Use History: None Reported - Past Family History Father Family Medical History: Myocardial Infarction ([place]) Additional Family Medical History / Comment(s): Father of a [place] at the age of 57yrs. Mother Family Medical History: Cancer Additional Family Medical History / Comment(s): Mother from cancer at the age of 61 or 62 . Pt cannot recall type of cancer. Sister(s) Family Medical History: Diabetes Mellitus Additional Family Medical History / Comment(s): Sister had DM type 1. She is . Medications and Allergies Home Medications Medication Instructions Recorded Confirmed Type Omeprazole 20 mg PO AC-BID 06/13/17 09/23/21 History Pioglitazone HCl [Actos] 15 mg PO DAILY 10/03/18 09/23/21 History Diphenox-Atrop 2.5-0.025 mg 1 tab PO BID PRN 11/17/19 09/23/21 History [Lomotil] Rosuvastatin [Crestor] 10 mg PO HS 05/15/20 09/23/21 History HYDROcodone/APAP 10-325MG [[place] 1 tab PO TID PRN 06/15/21 09/23/21 History 10-325] Latanoprost/Pf [Latanoprost 0.005% 1 drop BOTH EYES HS 06/15/21 09/23/21 History Eye Drop] Phenytoin Sodium Extended 60 mg PO BID 07/14/21 09/23/21 History [Dilantin] Acetaminophen Tab [Tylenol] 325 mg PO Q6HR PRN 07/17/21 09/23/21 History Acetaminophen-Codeine 300-30mg 1 tab PO TID PRN 07/17/21 09/23/21 History [Tylenol w/codeine #3] Insulin Glargine [Lantus Vial] 50 unit SQ DAILY 07/29/21 09/23/21 History Ondansetron Odt [Zofran Odt] 4 mg PO Q8HR PRN #12 tab 07/29/21 09/23/21 Rx traMADol HCL [Ultram] 50 mg PO Q6H PRN 07/29/21 09/23/21 History Ketorolac 0.5% Ophth Soln [Acular 1 drops LEFT EYE BID 08/30/21 09/23/21 History 0.5%] Loteprednol Etabonate [Inveltys] 1 drop LEFT EYE BID 08/30/21 09/23/21 History INSULIN ASPART (NovoLOG) [NovoLOG See Protocol SQ AC-TID PRN 09/23/21 09/23/21 History (formulary)] Mupirocin 2% Oint [Bactroban 2% 1 applic TOPICAL DAILY 09/23/21 09/23/21 History Oint] Triamcinolone 0.5% Cream [Kenalog 1 applic TOPICAL DAILY 09/23/21 09/23/21 History 0.5% Cream] Allergies Allergy/AdvReac Type Severity Reaction Status Date / Time No Known Allergies Allergy Verified 09/23/21 21:13 Surgical - Exam Vital Signs Temp Pulse Resp BP Pulse Ox 98.4 F 105 H 16 98/56 99 09/23/21 15:45 09/23/21 15:45 09/23/21 15:45 09/23/21 15:45 09/23/21 15:45 Results - Labs 09/23/21 18:13 09/24/21 00:24 Abnormal Lab Results - Last 24 Hours (Table) 09/24/21 09/24/21 09/24/21 Range/Units 13:00 16:53 20:44 POC Glucose (mg/dL) 304 H 360 H 404 H (70-110) mg/dL 09/25/21 09/25/21 Range/Units 00:35 07:14 POC Glucose (mg/dL) 307 H 441 H (70-110) mg/dL
[2021-09-25 09:35] LABS: Basophils # (A) 0.05 X 10*3/uL (0.00-0.10); Basophils % (A) 0.6 %; Eosinophils # (A) 0.05 X 10*3/uL (0.04-0.35); Eosinophils % (A) 0.6 %; HCT 25.7 % (39.6-50.0); HGB 7.7 g/dL (13.0-17.0); Immature Grans, Automated 0.2 %; Lymphocytes # (A) 1.69 X 10*3/uL (0.90-5.00); Lymphocytes % (A) 20.3 %; MCH 20.8 pg (27.0-32.0); MCV 69.3 fL (80.0-97.0); Mean Platelet Volume 9.3 fL (9.5-12.2); Monocytes # (A) 0.61 X 10*3/uL (0.20-1.00); Monocytes % (A) 7.3 %; NRBC Per 100 WBC 0 /100 WBCS (0.0-0.0); Neutrophils # (A) 5.92 X 10*3/uL (1.80-7.70); Platelet Count 457 X 10*3/uL (140-440); RBC 3.71 X 10*6/uL (4.40-5.60); RDW 15.9 % (11.5-14.5); WBC 8.34 X 10*3/uL (4.50-10.00)
[2021-09-25 09:52] LABS: ALT 6 U/L (10-49); AST 11 U/L (14-35); African American GFR (CKD) 106.5 (60.0-200.0); Albumin/Globulin Ratio 1.07 (1.60-3.17); Alkaline Phosphatase 93 U/L (41-126); Blood Urea Nitrogen 15.3 mg/dL (9.0-27.0); Calcium 8.5 mg/dL (8.7-10.3); Carbon Dioxide 25.8 mmol/L (20.0-27.5); Chloride 96 mmol/L (96-109); Globulin 2.8 g/dL (1.6-3.3); Glucose 434 mg/dL (70-110); Non-African American GFR(CKD) 91.9 (60.0-200.0); Potassium 4.8 mmol/L (3.5-5.5); Sodium 131 mmol/L (135-145); Total Bilirubin <0.15 mg/dL (0.30-1.20); Total Protein 5.8 g/dL (6.2-8.2)
[2021-09-25 10:57] VITALS: BMI 17.6
[2021-09-25 11:54] LABS: Glucose,Whole Blood 393 mg/dL (70-110)
--- NOTE | 2021-09-25 16:45 | P.HPIM ---
History of Present Illness H&P Date: 09/24/21 Pietro Ryder, he is a 61-year-old male who presented to [facility] emergency room with a chief complaint of nausea and vomiting He was evaluated in the emergency room vital examination on presentation revealed a temperature of 98.4 pulse 105 respiration 16 blood pressure 98/56 pu lse ox 99% on room air Laboratory data revealed a white blood count of 10.4 hemoglobin 9.9 platelet count 659 sodium 137 potassium 4.6 chloride 103 CO2 22 BUN 21 creatinine 0.89 glucose level on presentation was 484 Testing in the emergency room revealed chest x-ray done in the emergency room revealed no acute abnormality Patient was admitted to medical floor for further evaluation and treatment Past Medical History Past Medical History: Diabetes Mellitus, Diabetes Mellitus, GERD/Reflux, Hyperlipidemia, Osteoarthritis (OA), Seizure Disorder Additional Past Medical History / Comment(s): IDDM type 1 per pt, bilateral feet neuropathy, pt states current wounds to bilateral feet/goes to [facility]/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 History of Any Multi-Drug Resistant Organisms: MRSA Date of last positivie culture/infection: 12/29/19 MDRO Source:: Left Leg Past Surgical History: Orthopedic Surgery, Tonsillectomy Additional Past Surgical History / Comment(s): 01/23/20 angiogram L leg, 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, colonoscopy, L eye surgery for strabismus. Past Anesthesia/Blood Transfusion Reactions: No Reported Reaction Past Psychological History: Depression Smoking Status: Never smoker Past Alcohol Use History: None Reported Past Drug Use History: None Reported - Past Family History Father Family Medical History: Myocardial Infarction ([place]) Additional Family Medical History / Comment(s): Father of a [place] at the age of 57yrs. Mother Family Medical History: Cancer Additional Family Medical History / Comment(s): Mother from cancer at the age of 61 or 62 . Pt cannot recall type of cancer. Sister(s) Family Medical History: Diabetes Mellitus Additional Family Medical History / Comment(s): Sister had DM type 1. She is . Medications and Allergies Home Medications Medication Instructions Recorded Confirmed Type Omeprazole 20 mg PO AC-BID 06/13/17 09/23/21 History Pioglitazone HCl [Actos] 15 mg PO DAILY 10/03/18 09/23/21 History Diphenox-Atrop 2.5-0.025 mg 1 tab PO BID PRN 11/17/19 09/23/21 History [Lomotil] Rosuvastatin [Crestor] 10 mg PO HS 05/15/20 09/23/21 History HYDROcodone/APAP 10-325MG [[place] 1 tab PO TID PRN 06/15/21 09/23/21 History 10-325] Latanoprost/Pf [Latanoprost 0.005% 1 drop BOTH EYES HS 06/15/21 09/23/21 History Eye Drop] Phenytoin Sodium Extended 60 mg PO BID 07/14/21 09/23/21 History [Dilantin] Acetaminophen Tab [Tylenol] 325 mg PO Q6HR PRN 07/17/21 09/23/21 History Acetaminophen-Codeine 300-30mg 1 tab PO TID PRN 07/17/21 09/23/21 History [Tylenol w/codeine #3] Insulin Glargine [Lantus Vial] 50 unit SQ DAILY 07/29/21 09/23/21 History Ondansetron Odt [Zofran Odt] 4 mg PO Q8HR PRN #12 tab 07/29/21 09/23/21 Rx traMADol HCL [Ultram] 50 mg PO Q6H PRN 07/29/21 09/23/21 History Ketorolac 0.5% Ophth Soln [Acular 1 drops LEFT EYE BID 08/30/21 09/23/21 History 0.5%] Loteprednol Etabonate [Inveltys] 1 drop LEFT EYE BID 08/30/21 09/23/21 History INSULIN ASPART (NovoLOG) [NovoLOG See Protocol SQ AC-TID PRN 09/23/21 09/23/21 History (formulary)] Mupirocin 2% Oint [Bactroban 2% 1 applic TOPICAL DAILY 09/23/21 09/23/21 History Oint] Triamcinolone 0.5% Cream [Kenalog 1 applic TOPICAL DAILY 09/23/21 09/23/21 History 0.5% Cream] Allergies Allergy/AdvReac Type Severity Reaction Status Date / Time No Known Allergies Allergy Verified 09/23/21 21:13 Physical Exam Vitals: Vital Signs Temp Pulse Pulse Resp BP BP Pulse Ox 09/24/21 08:23 90 18 114/68 98 09/24/21 04:00 97.7 F 92 18 122/69 98 09/24/21 00:00 97.7 F 90 20 135/74 93 L 09/23/21 20:58 89 18 128/80 100 09/23/21 18:58 91 18 129/72 99 09/23/21 15:45 98.4 F 105 H 16 98/56 99 Intake and Output 09/23/21 09/24/21 09/24/21 22:59 06:59 14:59 Intake Total 1000 Output Total 250 Balance 750 Intake: IV 1000 Sodium Chloride 0.9% 1, 1000 000 ml @ 130 mls/hr IV . Q7H42M STA Rx#:[id number] Output: Urine 250 Other: # Voids 1 # Bowel Movements 1 Weight 47.627 kg In general patient is alert and oriented 3 in no distress HEENT head normocephalic and atraumatic Neck is supple no JVD no goiter no lymphadenopathy no carotid bruit Chest examination is clear to auscultation no crackles no wheezing Cardiac exam reveals regular heart sounds S1 and S2 no gallops no murmurs Abdomen is soft nontender no organomegaly with normal bowel sounds Extremity exam reveals no edema no cyanosis or clubbing Neurological examination reveals no gross focal deficits Results CBC & Chem 7: 09/23/21 18:13 09/24/21 00:24 Labs: Abnormal Lab Results - Last 24 Hours (Table) 09/23/21 09/23/21 09/23/21 Range/Units 18:13 18:13 18:13 Hgb 9.9 L (13.0-17.5) gm/dL Hct 35.0 L (39.0-53.0) % MCV 74.3 L (80.0-100.0) fL MCH 21.1 L (25.0-35.0) pg MCHC 28.4 L (31.0-37.0) g/dL Plt Count 659 H (150-450) k/uL Neutrophils # 9.1 H (1.3-7.7) k/uL Lymphocytes # 0.9 L (1.0-4.8) k/uL VBG pCO2 (37-51) mmHg VBG HCO3 (24-28) mmol/L Sodium 132 L (137-145) mmol/L Potassium 5.3 H (3.5-5.1) mmol/L Chloride 93 L (98-107) mmol/L Carbon Dioxide 20 L (22-30) mmol/L BUN 21 H (9-20) mg/dL Glucose 484 H (74-99) mg/dL POC Glucose (mg/dL) (70-110) mg/dL Phosphorus (2.5-4.5) mg/dL Alkaline Phosphatase 144 H (38-126) U/L Urine Glucose (UA) 4+ H (Negative) Urine Ketones 4+ H (Negative) 09/23/21 09/23/21 09/23/21 Range/Units 18:13 18:13 19:55 Hgb (13.0-17.5) gm/dL Hct (39.0-53.0) % MCV (80.0-100.0) fL MCH (25.0-35.0) pg MCHC (31.0-37.0) g/dL Plt Count (150-450) k/uL Neutrophils # (1.3-7.7) k/uL Lymphocytes # (1.0-4.8) k/uL VBG pCO2 35 L (37-51) mmHg VBG HCO3 18 L (24-28) mmol/L Sodium (137-145) mmol/L Potassium (3.5-5.1) mmol/L Chloride (98-107) mmol/L Carbon Dioxide (22-30) mmol/L BUN (9-20) mg/dL Glucose (74-99) mg/dL POC Glucose (mg/dL) 293 H (70-110) mg/dL Phosphorus 5.5 H (2.5-4.5) mg/dL Alkaline Phosphatase (38-126) U/L Urine Glucose (UA) (Negative) Urine Ketones (Negative) 09/23/21 09/23/21 09/24/21 Range/Units 20:35 20:56 00:24 Hgb (13.0-17.5) gm/dL Hct (39.0-53.0) % MCV (80.0-100.0) fL MCH (25.0-35.0) pg MCHC (31.0-37.0) g/dL Plt Count (150-450) k/uL Neutrophils # (1.3-7.7) k/uL Lymphocytes # (1.0-4.8) k/uL VBG pCO2 (37-51) mmHg VBG HCO3 (24-28) mmol/L Sodium 136 L (137-145) mmol/L Potassium (3.5-5.1) mmol/L Chloride (98-107) mmol/L Carbon Dioxide 20 L (22-30) mmol/L BUN (9-20) mg/dL Glucose 200 H 226 H (74-99) mg/dL POC Glucose (mg/dL) 213 H (70-110) mg/dL Phosphorus (2.5-4.5) mg/dL Alkaline Phosphatase (38-126) U/L Urine Glucose (UA) (Negative) Urine Ketones (Negative) 09/24/21 09/24/21 Range/Units 01:18 06:50 Hgb (13.0-17.5) gm/dL Hct (39.0-53.0) % MCV (80.0-100.0) fL MCH (25.0-35.0) pg MCHC (31.0-37.0) g/dL Plt Count (150-450) k/uL Neutrophils # (1.3-7.7) k/uL Lymphocytes # (1.0-4.8) k/uL VBG pCO2 (37-51) mmHg VBG HCO3 (24-28) mmol/L Sodium (137-145) mmol/L Potassium (3.5-5.1) mmol/L Chloride (98-107) mmol/L Carbon Dioxide (22-30) mmol/L BUN (9-20) mg/dL Glucose (74-99) mg/dL POC Glucose (mg/dL) 247 H 292 H (70-110) mg/dL Phosphorus (2.5-4.5) mg/dL Alkaline Phosphatase (38-126) U/L Urine Glucose (UA) (Negative) Urine Ketones (Negative) Thrombosis Risk Factor Assmnt - Choose All That Apply Any of the Below Risk Factors Present?: No Other Risk Factors: Yes Each Risk Factor Represents 2 Points: Age 61-74 years Other congenital or acquired thrombophilia - If yes, enter type in comment: No Thrombosis Risk Factor Assessment Total Risk Factor Score: 2 Thrombosis Risk Factor Assessment Level: Low Risk Assessment and Plan Plan: Acute diabetic ketoacidosis, patient admitted to telemetry floor, started on IV fluid and IV insulin drip Gastroenteritis with nausea and vomiting, viral gastroenteritis versus side effect from oral antibiotics Recent admission to [facility] due to lower extremity peripheral arterial disease and cellulitis patient had toe amputation by Dr. Guerrier Underlying history of Diabetes Mellitus type 1 Underlying history of Hyperlipidemia, Underlying history of Osteoarthritis Underlying history of Depression Underlying history of seizure disorder At this time patient is admitted to medical floor, he is maintained on IV fluid At this time oral antibiotics are on hold, will start IV Rocephin Consult infectious disease Dr. Moran, consult Dr. Guerrier for evaluation of lower extremity Medication and labs were reviewed will follow closely
[2021-09-25 16:53] LABS: Glucose,Whole Blood 222 mg/dL (70-110)
[2021-09-25 20:16] LABS: Glucose,Whole Blood 191 mg/dL (70-110)
[2021-09-25] MEDS: ATORVASTATIN 20 MG TAB PO SCH (20:51)
[2021-09-25] MEDS: LATANOPROST 0.005% OPHTH DROPS 2.5 ML BTL BOTH EYES SCH (20:52)
--- NOTE | 2021-09-25 22:45 | P.CONS ---
History of Present Illness - Reason for Consult Consult date: 09/25/21 - History of Present Illness Patient is a 61-year-old male with a past medical history significant for diabetes mellitus in this patient who was recently admitted at [facility] with left big toe gangrene status post left big toe amputation culture negative for resistant pathogen and the patient was discharged on oral antibiotic patient has been brought to the ER on 09/24/2021 for evaluation of shivam sea vomiting and difficulty breathing, patient symptom has been going on for few days before presentation to the hospital patient denies having any fever or any chills patient denies having any chest pain or shortness of breath or cough no abdominal pain, patient currently did have multiple wounds to the right lower extremity apparently has been going on for more than a week or 2 patient denies having any active pain to those lesions or any foul-smelling drainage patient also noticed to have a dehiscence of his left big toe amputation site wound but denies any foul-smelling drainage patient on presentation to the hospital was afebrile and no fever have been recorded subsequently patient did have a normal white count kidney function has been normal urine has been negative urine drug screen was negative COVID and influenza testing was negative chest x-ray normal chest Past Medical History Past Medical History: Diabetes Mellitus, Diabetes Mellitus, GERD/Reflux, Hyperlipidemia, Osteoarthritis (OA), Seizure Disorder Additional Past Medical History / Comment(s): IDDM type 1 per pt, bilateral feet neuropathy, pt states current wounds to bilateral feet/goes to [facility]/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 History of Any Multi-Drug Resistant Organisms: MRSA Year Discovered:: 12/29/19 MDRO Source:: Left Leg Past Surgical History: Orthopedic Surgery, Tonsillectomy Additional Past Surgical History / Comment(s): 01/23/20 angiogram L leg, 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, colonoscopy, L eye surgery for strabismus. Past Anesthesia/Blood Transfusion Reactions: No Reported Reaction Past Psychological History: Depression Smoking Status: Never smoker Past Alcohol Use History: None Reported Past Drug Use History: None Reported - Past Family History Father Family Medical History: Myocardial Infarction ([place]) Additional Family Medical History / Comment(s): Father of a [place] at the age of 57yrs. Mother Family Medical History: Cancer Additional Family Medical History / Comment(s): Mother from cancer at the age of 61 or 62 . Pt cannot recall type of cancer. Sister(s) Family Medical History: Diabetes Mellitus Additional Family Medical History / Comment(s): Sister had DM type 1. She is . Medications and Allergies Home Medications Medication Instructions Recorded Confirmed Type Omeprazole 20 mg PO AC-BID 06/13/17 09/23/21 History Pioglitazone HCl [Actos] 15 mg PO DAILY 10/03/18 09/23/21 History Diphenox-Atrop 2.5-0.025 mg 1 tab PO BID PRN 11/17/19 09/23/21 History [Lomotil] Rosuvastatin [Crestor] 10 mg PO HS 05/15/20 09/23/21 History HYDROcodone/APAP 10-325MG [[place] 1 tab PO TID PRN 06/15/21 09/23/21 History 10-325] Latanoprost/Pf [Latanoprost 0.005% 1 drop BOTH EYES HS 06/15/21 09/23/21 History Eye Drop] Phenytoin Sodium Extended 60 mg PO BID 07/14/21 09/23/21 History [Dilantin] Acetaminophen Tab [Tylenol] 325 mg PO Q6HR PRN 07/17/21 09/23/21 History Acetaminophen-Codeine 300-30mg 1 tab PO TID PRN 07/17/21 09/23/21 History [Tylenol w/codeine #3] Insulin Glargine [Lantus Vial] 50 unit SQ DAILY 07/29/21 09/23/21 History Ondansetron Odt [Zofran Odt] 4 mg PO Q8HR PRN #12 tab 07/29/21 09/23/21 Rx traMADol HCL [Ultram] 50 mg PO Q6H PRN 07/29/21 09/23/21 History Ketorolac 0.5% Ophth Soln [Acular 1 drops LEFT EYE BID 08/30/21 09/23/21 History 0.5%] Loteprednol Etabonate [Inveltys] 1 drop LEFT EYE BID 08/30/21 09/23/21 History INSULIN ASPART (NovoLOG) [NovoLOG See Protocol SQ AC-TID PRN 09/23/21 09/23/21 History (formulary)] Mupirocin 2% Oint [Bactroban 2% 1 applic TOPICAL DAILY 09/23/21 09/23/21 History Oint] Triamcinolone 0.5% Cream [Kenalog 1 applic TOPICAL DAILY 09/23/21 09/23/21 History 0.5% Cream] Allergies Allergy/AdvReac Type Severity Reaction Status Date / Time No Known Allergies Allergy Verified 09/23/21 21:13 Physical Exam Vitals: Vital Signs Temp Pulse Pulse Pulse Resp BP BP 09/25/21 05:00 97.8 F 79 16 150/75 09/24/21 20:00 97.4 F L 90 16 152/82 09/24/21 14:45 98.1 F 89 16 128/67 09/24/21 13:02 83 12 113/57 09/24/21 11:21 97.6 F 87 17 113/57 09/24/21 08:23 90 18 114/68 09/24/21 08:00 97.8 F 85 17 113/57 Pulse Ox 09/25/21 05:00 98 09/24/21 20:00 98 09/24/21 14:45 98 09/24/21 13:02 96 09/24/21 11:21 95 09/24/21 08:23 98 09/24/21 08:00 96 Intake and Output 09/24/21 09/25/21 09/25/21 22:59 06:59 14:59 Intake Total 120 Balance 120 Intake: Oral 120 Other: Voiding Method Toilet # Voids 2 Results CBC & Chem 7: 09/25/21 05:07 09/25/21 05:07 Labs: Abnormal Lab Results - Last 24 Hours (Table) 09/24/21 09/24/21 09/24/21 Range/Units 13:00 16:53 20:44 POC Glucose (mg/dL) 304 H 360 H 404 H (70-110) mg/dL 09/25/21 09/25/21 Range/Units 00:35 07:14 POC Glucose (mg/dL) 307 H 441 H (70-110) mg/dL Assessment and Plan Plan: 1patient with left big toe amputation site wound dehiscence however no evidence of any active cellulitis in this patient with no fever or elevated white count. 2patient with multiple wound to the right lower extremity with evidence of any slough tissue or secondary cellulitis will be recommending local wound care. 3we will apply Aquacel silver dressing to his wound to be changed to 48-hour. 4no need for systemic antibiotic therapy. We will follow on clinical condition and cultures to further adjust medication if needed Thank you for this consultation will follow this patient along with you Time with Patient: Greater than 30
[2021-09-26 07:05] LABS: Glucose,Whole Blood 491 mg/dL (70-110)
[2021-09-26] MEDS: PIOGLITAZONE 15 MG TAB PO SCH (07:50)
[2021-09-26] MEDS: INSULIN ASPART (NovoLOG) 100 UNIT/ML VIAL SQ SCH ×4 (07:50→20:25)
[2021-09-26] MEDS: KETOROLAC 0.5% OPHTH DROPS 5 ML BTL LEFT EYE SCH ×2 (07:51→20:26)
[2021-09-26] MEDS: PANTOPRAZOLE 40 MG TABLET PO SCH ×2 (07:51→17:41)
[2021-09-26] MEDS: NON FORMULARY DRUG (Phenytoin Sodium Extended [Dilantin] 30 MG Capsule) PO SCH ×2 (07:52→20:28)
[2021-09-26] MEDS: LOTEPREDNOL ETABONATE LEFT EYE SCH ×2 (07:52→20:28)
[2021-09-26 10:49] LABS: Basophils # (A) 0.03 X 10*3/uL (0.00-0.10); Basophils % (A) 0.4 %; Eosinophils # (A) 0.03 X 10*3/uL (0.04-0.35); Eosinophils % (A) 0.4 %; HCT 29.2 % (39.6-50.0); HGB 8.4 g/dL (13.0-17.0); Immature Grans, Automated 0.4 %; Lymphocytes # (A) 1.15 X 10*3/uL (0.90-5.00); Lymphocytes % (A) 16.2 %; MCHC 28.8 g/dL (32.0-37.0); MCV 69.5 fL (80.0-97.0); Mean Platelet Volume 10.1 fL (9.5-12.2); Monocytes # (A) 0.57 X 10*3/uL (0.20-1.00); Monocytes % (A) 8.1 %; NRBC Per 100 WBC 0 /100 WBCS (0.0-0.0); Neutrophils # (A) 5.27 X 10*3/uL (1.80-7.70); Neutrophils % (A) 74.5 %; Platelet Count 523 X 10*3/uL (140-440); RDW 16.4 % (11.5-14.5); WBC 7.08 X 10*3/uL (4.50-10.00)
[2021-09-26 11:06] LABS: Glucose,Whole Blood 473 mg/dL (70-110)
[2021-09-26] MEDS ORDERED: DIPHENOX-ATROP 2.5-0.025 MG 1 EACH TAB PO PRN (11:08)
[2021-09-26 11:56] LABS: ALT 8 U/L (10-49); AST 12 U/L (14-35); African American GFR (CKD) 111.7 (60.0-200.0); Albumin 3.3 g/dL (3.8-4.9); Albumin/Globulin Ratio 1.03 (1.60-3.17); Alkaline Phosphatase 105 U/L (41-126); BUN/Creat Ratio 17.38 Ratio (12.00-20.00); Blood Urea Nitrogen 13.9 mg/dL (9.0-27.0); Calcium 9.2 mg/dL (8.7-10.3); Carbon Dioxide 28.4 mmol/L (20.0-27.5); Chloride 92 mmol/L (96-109); Globulin 3.2 g/dL (1.6-3.3); Glucose 552 mg/dL (70-110); Non-African American GFR(CKD) 96.4 (60.0-200.0); Sodium 131 mmol/L (135-145); Total Bilirubin <0.15 mg/dL (0.30-1.20); Total Protein 6.5 g/dL (6.2-8.2)
[2021-09-26] MEDS ORDERED: INSULIN ASPART (NovoLOG) 100 UNIT/ML VIAL SQ ONE (12:23)
--- NOTE | 2021-09-26 17:06 | P.PN ---
Subjective Progress Note Date: 09/25/21 Pietro Ryder, he is a 61-year-old male who presented to [facility] emergency room with a chief complaint of nausea and vomiting He was evaluated in the emergency room vital examination on presentation revealed a temperature of 98.4 pulse 105 respiration 16 blood pressure 98/56 pulse ox 99% on room air Laboratory data revealed a white blood count of 10.4 hemoglobin 9.9 platelet count 659 sodium 137 potassium 4.6 chloride 103 CO2 22 BUN 21 creatinine 0.89 glucose level on presentation was 484 Testing in the emergency room revealed chest x-ray done in the emergency room revealed no acute abnormality Patient was admitted to medical floor for further evaluation and treatment On 09/25/2021 patient was seen and examined on the medical floor he is alert and oriented 3 in no apparent distress he is complaining of multiple episodes of watery diarrhea otherwise he denies any complaints there is no fever or chills no headache or dizziness no chest pain no shortness of breath no cough no nausea or vomiting no abdominal pain and no urinary symptoms Objective - Vital Signs Vital signs: Vital Signs Temp 98.3 F 09/25/21 12:43 Pulse 81 09/25/21 12:43 Resp 16 09/25/21 12:43 BP 125/77 09/25/21 12:43 Pulse Ox 98 09/25/21 12:43 FiO2 Intake & Output 09/24/21 09/25/21 09/25/21 18:59 06:59 18:59 Intake Total 120 Output Total 900 Balance 120 -900 Weight 42.5 kg Intake: Oral 120 Output: Urine 900 Other: Voiding Method Toilet # Voids 2 - Exam In general patient is alert and oriented 3 in no distress HEENT head normocephalic and atraumatic Neck is supple no JVD no goiter no lymphadenopathy no carotid bruit Chest examination is clear to auscultation no crackles no wheezing Cardiac exam reveals regular heart sounds S1 and S2 no gallops no murmurs Abdomen is soft nontender no organomegaly with normal bowel sounds Extremity exam reveals no edema no cyanosis or clubbing Neurological examination reveals no gross focal deficits - Labs CBC & Chem 7: 09/26/21 06:46 09/26/21 06:46 Labs: Abnormal Lab Results - Last 24 Hours (Table) 09/24/21 09/24/21 09/25/21 Range/Units 16:53 20:44 00:35 RBC (4.40-5.60) X 10*6/uL Hgb (13.0-17.0) g/dL Hct (39.6-50.0) % MCV (80.0-97.0) fL MCH (27.0-32.0) pg MCHC (32.0-37.0) g/dL RDW (11.5-14.5) % Plt Count (140-440) X 10*3/uL MPV (9.5-12.2) fL Sodium (135-145) mmol/L Anion Gap (10.00-18.00) mmol/L Glucose (70-110) mg/dL POC Glucose (mg/dL) 360 H 404 H 307 H (70-110) mg/dL Calcium (8.7-10.3) mg/dL Total Bilirubin (0.30-1.20) mg/dL AST (14-35) U/L ALT (10-49) U/L Total Protein (6.2-8.2) g/dL Albumin (3.8-4.9) g/dL Albumin/Globulin Ratio (1.60-3.17) g/dL 09/25/21 09/25/21 09/25/21 Range/Units 05:07 05:07 07:14 RBC 3.71 L (4.40-5.60) X 10*6/uL Hgb 7.7 L (13.0-17.0) g/dL Hct 25.7 L (39.6-50.0) % MCV 69.3 L (80.0-97.0) fL MCH 20.8 L (27.0-32.0) pg MCHC 30.0 L (32.0-37.0) g/dL RDW 15.9 H (11.5-14.5) % Plt Count 457 H (140-440) X 10*3/uL MPV 9.3 L (9.5-12.2) fL Sodium 131 L (135-145) mmol/L Anion Gap 9.20 L (10.00-18.00) mmol/L Glucose 434 H (70-110) mg/dL POC Glucose (mg/dL) 441 H (70-110) mg/dL Calcium 8.5 L (8.7-10.3) mg/dL Total Bilirubin <0.15 L (0.30-1.20) mg/dL AST 11 L (14-35) U/L ALT 6 L (10-49) U/L Total Protein 5.8 L (6.2-8.2) g/dL Albumin 3.0 L (3.8-4.9) g/dL Albumin/Globulin Ratio 1.07 L (1.60-3.17) g/dL 09/25/21 Range/Units 11:52 RBC (4.40-5.60) X 10*6/uL Hgb (13.0-17.0) g/dL Hct (39.6-50.0) % MCV (80.0-97.0) fL MCH (27.0-32.0) pg MCHC (32.0-37.0) g/dL RDW (11.5-14.5) % Plt Count (140-440) X 10*3/uL MPV (9.5-12.2) fL Sodium (135-145) mmol/L Anion Gap (10.00-18.00) mmol/L Glucose (70-110) mg/dL POC Glucose (mg/dL) 393 H (70-110) mg/dL Calcium (8.7-10.3) mg/dL Total Bilirubin (0.30-1.20) mg/dL AST (14-35) U/L ALT (10-49) U/L Total Protein (6.2-8.2) g/dL Albumin (3.8-4.9) g/dL Albumin/Globulin Ratio (1.60-3.17) g/dL Assessment and Plan Plan: Acute diabetic ketoacidosis, patient admitted to telemetry floor, started on IV fluid and IV insulin drip Gastroenteritis with nausea and vomiting, viral gastroenteritis versus side effect from oral antibiotics Recent admission to [facility] due to lower extremity peripheral arterial disease and cellulitis patient had toe amputation by Dr. Guerrier Underlying history of Diabetes Mellitus type 1 Underlying history of Hyperlipidemia, Underlying history of Osteoarthritis Underlying history of Depression Underlying history of seizure disorder Diarrhea with check stools for C. diff and stool culture At this time patient is admitted to medical floor, he is maintained on IV fluid At this time oral antibiotics are on hold, will start IV Rocephin Consult infectious disease Dr. Moran, consult Dr. Guerrier for evaluation of lower extremity Medication and labs were reviewed will follow closely
--- NOTE | 2021-09-26 17:08 | P.PN ---
Subjective Progress Note Date: 09/26/21 Pietro Ryder, he is a 61-year-old male who presented to [facility] emergency room with a chief complaint of nausea and vomiting He was evaluated in the emergency room vital examination on presentation revealed a temperature of 98.4 pulse 105 respiration 16 blood pressure 98/56 pulse ox 99% on room air Laboratory data revealed a white blood count of 10.4 hemoglobin 9.9 platelet count 659 sodium 137 potassium 4.6 chloride 103 CO2 22 BUN 21 creatinine 0.89 glucose level on presentation was 484 Testing in the emergency room revealed chest x-ray done in the emergency room revealed no acute abnormality Patient was admitted to medical floor for further evaluation and treatment On 09/25/2021 patient was seen and examined on the medical floor he is alert and oriented 3 in no apparent distress he is complaining of multiple episodes of watery diarrhea otherwise he denies any complaints there is no fever or chills no headache or dizziness no chest pain no shortness of breath no cough no nausea or vomiting no abdominal pain and no urinary symptoms On 09/26/2021 patient was seen and examined on the medical floor he is alert and oriented 3 in no apparent distress there is no more episodes of nausea and vomiting he is still having episodes of diarrhea stools was negative for Clostridium difficile Lomotil 2.5 mg by mouth every 6 hours when necessary was added to his regimen otherwise he denies any complaints there is no fever or chills no headache or dizziness no chest pain no shortness of breath no cough no nausea or vomiting no abdominal pain and no urinary symptoms. glucose levels are elevated at this time will add Lantus 15 units at bedtime and monitor closely Objective - Vital Signs Vital signs: Vital Signs Temp 97.5 F L 09/26/21 13:00 Pulse 113 H 09/26/21 13:00 Resp 18 09/26/21 13:00 BP 110/65 09/26/21 13:00 Pulse Ox 97 09/26/21 04:50 FiO2 Intake & Output 09/25/21 09/26/21 09/26/21 18:59 06:59 18:59 Intake Total 50 Output Total 900 Balance -850 Weight 42.5 kg Intake: Intake, IV Titration 50 Amount cefTRIAXone 1 gm In 50 Sodium Chloride 0.9% 50 ml @ 100 mls/hr IVPB Q24HR [facility] Rx#:[id number] Output: Urine 900 Other: Voiding Method Toilet # Voids 1 2 # Bowel Movements 1 1 - Exam In general patient is alert and oriented 3 in no distress HEENT head normocephalic and atraumatic Neck is supple no JVD no goiter no lymphadenopathy no carotid bruit Chest examination is clear to auscultation no crackles no wheezing Cardiac exam reveals regular heart sounds S1 and S2 no gallops no murmurs Abdomen is soft nontender no organomegaly with normal bowel sounds Extremity exam reveals no edema no cyanosis or clubbing Neurological examination reveals no gross focal deficits - Labs CBC & Chem 7: 09/26/21 06:46 09/26/21 06:46 Labs: Abnormal Lab Results - Last 24 Hours (Table) 09/25/21 09/26/21 09/26/21 Range/Units 20:15 06:46 06:46 RBC 4.20 L (4.40-5.60) X 10*6/uL Hgb 8.4 L (13.0-17.0) g/dL Hct 29.2 L (39.6-50.0) % MCV 69.5 L (80.0-97.0) fL MCH 20.0 L (27.0-32.0) pg MCHC 28.8 L (32.0-37.0) g/dL RDW 16.4 H (11.5-14.5) % Plt Count 523 H (140-440) X 10*3/uL Eosinophils # 0.03 L (0.04-0.35) X 10*3/uL Sodium 131 L (135-145) mmol/L Chloride 92 L (96-109) mmol/L Carbon Dioxide 28.4 H (20.0-27.5) mmol/L Glucose 552 H* (70-110) mg/dL POC Glucose (mg/dL) 191 H (70-110) mg/dL Total Bilirubin <0.15 L (0.30-1.20) mg/dL AST 12 L (14-35) U/L ALT 8 L (10-49) U/L Albumin 3.3 L (3.8-4.9) g/dL Albumin/Globulin Ratio 1.03 L (1.60-3.17) g/dL 09/26/21 09/26/21 Range/Units 07:03 11:04 RBC (4.40-5.60) X 10*6/uL Hgb (13.0-17.0) g/dL Hct (39.6-50.0) % MCV (80.0-97.0) fL MCH (27.0-32.0) pg MCHC (32.0-37.0) g/dL RDW (11.5-14.5) % Plt Count (140-440) X 10*3/uL Eosinophils # (0.04-0.35) X 10*3/uL Sodium (135-145) mmol/L Chloride (96-109) mmol/L Carbon Dioxide (20.0-27.5) mmol/L Glucose (70-110) mg/dL POC Glucose (mg/dL) 491 H 473 H (70-110) mg/dL Total Bilirubin (0.30-1.20) mg/dL AST (14-35) U/L ALT (10-49) U/L Albumin (3.8-4.9) g/dL Albumin/Globulin Ratio (1.60-3.17) g/dL Microbiology - Last 24 Hours (Table) 09/25/21 22:42 Stool Culture - Preliminary Stool Assessment and Plan Plan: Acute diabetic ketoacidosis, patient admitted to telemetry floor, started on IV fluid and IV insulin drip Gastroenteritis with nausea and vomiting, viral gastroenteritis versus side effect from oral antibiotics Recent admission to [facility] due to lower extremity peripheral arterial disease and cellulitis patient had toe amputation by Dr. Guerrier Underlying history of Diabetes Mellitus type 1 Underlying history of Hyperlipidemia, Underlying history of Osteoarthritis Underlying history of Depression Underlying history of seizure disorder Diarrhea with check stools for C. diff and stool culture At this time patient is admitted to medical floor, he is maintained on IV fluid At this time oral antibiotics are on hold, will start IV Rocephin Consult infectious disease Dr. Moran, consult Dr. Guerrier for evaluation of lower extremity Medication and labs were reviewed will follow closely
[2021-09-26 17:14] LABS: Glucose,Whole Blood 318 mg/dL (70-110)
[2021-09-26 20:12] LABS: Glucose,Whole Blood 259 mg/dL (70-110)
[2021-09-26] MEDS: ATORVASTATIN 20 MG TAB PO SCH (20:25)
[2021-09-26] MEDS: LATANOPROST 0.005% OPHTH DROPS 2.5 ML BTL BOTH EYES SCH (20:26)
[2021-09-26] MEDS ORDERED: INSULIN DETEMIR (LEVEMIR) 100 UNIT/ML SYR SQ SCH (21:00)
[2021-09-27 06:52] LABS: Glucose,Whole Blood 258 mg/dL (70-110)
[2021-09-27] MEDS: KETOROLAC 0.5% OPHTH DROPS 5 ML BTL LEFT EYE SCH ×2 (07:51→21:23)
[2021-09-27] MEDS: LOTEPREDNOL ETABONATE LEFT EYE SCH ×2 (07:52→21:23)
[2021-09-27] MEDS: NON FORMULARY DRUG (Phenytoin Sodium Extended [Dilantin] 30 MG Capsule) PO SCH (07:52)
[2021-09-27] MEDS: PANTOPRAZOLE 40 MG TABLET PO SCH ×2 (07:52→17:51)
[2021-09-27] MEDS: PIOGLITAZONE 15 MG TAB PO SCH (07:53)
[2021-09-27] MEDS: INSULIN ASPART (NovoLOG) 100 UNIT/ML VIAL SQ SCH ×4 (07:55→21:19)
[2021-09-27 08:53] LABS: Basophils # (A) 0.02 X 10*3/uL (0.00-0.10); Basophils % (A) 0.3 %; Eosinophils # (A) 0.05 X 10*3/uL (0.04-0.35); Eosinophils % (A) 0.6 %; HCT 27.9 % (39.6-50.0); HGB 8.4 g/dL (13.0-17.0); Immature Grans, Automated 0.4 %; Lymphocytes # (A) 1.67 X 10*3/uL (0.90-5.00); Lymphocytes % (A) 21.6 %; MCH 20.7 pg (27.0-32.0); MCHC 30.1 g/dL (32.0-37.0); MCV 68.9 fL (80.0-97.0); Mean Platelet Volume 9.5 fL (9.5-12.2); Monocytes # (A) 0.64 X 10*3/uL (0.20-1.00); Monocytes % (A) 8.3 %; NRBC Per 100 WBC 0 /100 WBCS (0.0-0.0); Neutrophils # (A) 5.32 X 10*3/uL (1.80-7.70); Neutrophils % (A) 68.8 %; Platelet Count 485 X 10*3/uL (140-440); RBC 4.05 X 10*6/uL (4.40-5.60); RDW 16.3 % (11.5-14.5); WBC 7.73 X 10*3/uL (4.50-10.00)
[2021-09-27 09:24] LABS: ALT 7 U/L (10-49); AST 13 U/L (14-35); African American GFR (CKD) 106.5 (60.0-200.0); Albumin 3.4 g/dL (3.8-4.9); Albumin/Globulin Ratio 1.06 (1.60-3.17); Alkaline Phosphatase 100 U/L (41-126); BUN/Creat Ratio 20.89 Ratio (12.00-20.00); Blood Urea Nitrogen 18.8 mg/dL (9.0-27.0); Calcium 9.5 mg/dL (8.7-10.3); Carbon Dioxide 31.6 mmol/L (20.0-27.5); Chloride 93 mmol/L (96-109); Globulin 3.2 g/dL (1.6-3.3); Glucose 234 mg/dL (70-110); Non-African American GFR(CKD) 91.9 (60.0-200.0); Potassium 4.4 mmol/L (3.5-5.5); Sodium 134 mmol/L (135-145); Total Bilirubin <0.15 mg/dL (0.30-1.20); Total Protein 6.6 g/dL (6.2-8.2)
[2021-09-27 10:57] LABS: Glucose,Whole Blood 398 mg/dL (70-110)
--- NOTE | 2021-09-27 12:05 | P.PN ---
Subjective Progress Note Date: 09/27/21 Pietro Ryder, he is a 61-year-old male who presented to [facility] emergency room with a chief complaint of nausea and vomiting He was evaluated in the emergency room vital examination on presentation revealed a temperature of 98.4 pulse 105 respiration 16 blood pressure 98/56 pulse ox 99% on room air Laboratory data revealed a white blood count of 10.4 hemoglobin 9.9 platelet count 659 sodium 137 potassium 4.6 chloride 103 CO2 22 BUN 21 creatinine 0.89 glucose level on presentation was 484 Testing in the emergency room revealed chest x-ray done in the emergency room revealed no acute abnormality Patient was admitted to medical floor for further evaluation and treatment On 09/25/2021 patient was seen and examined on the medical floor he is alert and oriented 3 in no apparent distress he is complaining of multiple episodes of watery diarrhea otherwise he denies any complaints there is no fever or chills no headache or dizziness no chest pain no shortness of breath no cough no nausea or vomiting no abdominal pain and no urinary symptoms On 09/26/2021 patient was seen and examined on the medical floor he is alert and oriented 3 in no apparent distress there is no more episodes of nausea and vomiting he is still having episodes of diarrhea stools was negative for Clostridium difficile Lomotil 2.5 mg by mouth every 6 hours when necessary was added to his regimen otherwise he denies any complaints there is no fever or chills no headache or dizziness no chest pain no shortness of breath no cough no nausea or vomiting no abdominal pain and no urinary symptoms. glucose levels are elevated at this time will add Lantus 15 units at bedtime and monitor closely On 09/27/2021 patient was seen and examined on the medical floor he is alert and oriented 3 in no apparent distress there is no fever or chills no headache or dizziness no chest pain no shortness of breath no cough no nausea or vomiting no abdominal pain no diarrhea and no urinary symptoms. Glucose level are still elevated. At this time will increase Lantus to 18 units at bedtime. Continue with IV antibiotics awaiting recommendation from infectious disease regarding antibiotic at the time of discharge Objective - Vital Signs Vital signs: Vital Signs Temp 97.6 F 09/27/21 07:00 Pulse 95 09/27/21 07:00 Resp 16 09/27/21 07:00 BP 124/75 09/27/21 07:00 Pulse Ox 96 09/27/21 04:26 FiO2 Intake & Output 09/26/21 09/27/21 09/27/21 18:59 06:59 18:59 Intake Total 100 Balance 100 Intake: Intake, IV Titration 100 Amount cefTRIAXone 1 gm In 100 Sodium Chloride 0.9% 50 ml @ 100 mls/hr IVPB Q24HR [facility] Rx#:[id number] Other: Voiding Method Toilet Toilet # Voids 1 - Exam In general patient is alert and oriented 3 in no distress HEENT head normocephalic and atraumatic Neck is supple no JVD no goiter no lymphadenopathy no carotid bruit Chest examination is clear to auscultation no crackles no wheezing Cardiac exam reveals regular heart sounds S1 and S2 no gallops no murmurs Abdomen is soft nontender no organomegaly with normal bowel sounds Extremity exam reveals no edema no cyanosis or clubbing Neurological examination reveals no gross focal deficits - Labs CBC & Chem 7: 09/27/21 05:43 09/27/21 05:43 Labs: Abnormal Lab Results - Last 24 Hours (Table) 09/26/21 09/26/21 09/26/21 Range/Units 06:46 17:13 20:11 RBC (4.40-5.60) X 10*6/uL Hgb (13.0-17.0) g/dL Hct (39.6-50.0) % MCV (80.0-97.0) fL MCH (27.0-32.0) pg MCHC (32.0-37.0) g/dL RDW (11.5-14.5) % Plt Count (140-440) X 10*3/uL Sodium 131 L (135-145) mmol/L Chloride 92 L (96-109) mmol/L Carbon Dioxide 28.4 H (20.0-27.5) mmol/L Anion Gap (10.00-18.00) mmol/L BUN/Creatinine Ratio (12.00-20.00) Ratio Glucose 552 H* (70-110) mg/dL POC Glucose (mg/dL) 318 H 259 H (70-110) mg/dL Total Bilirubin <0.15 L (0.30-1.20) mg/dL AST 12 L (14-35) U/L ALT 8 L (10-49) U/L Albumin 3.3 L (3.8-4.9) g/dL Albumin/Globulin Ratio 1.03 L (1.60-3.17) g/dL 09/27/21 09/27/21 09/27/21 Range/Units 05:43 05:43 06:51 RBC 4.05 L (4.40-5.60) X 10*6/uL Hgb 8.4 L (13.0-17.0) g/dL Hct 27.9 L (39.6-50.0) % MCV 68.9 L (80.0-97.0) fL MCH 20.7 L (27.0-32.0) pg MCHC 30.1 L (32.0-37.0) g/dL RDW 16.3 H (11.5-14.5) % Plt Count 485 H (140-440) X 10*3/uL Sodium 134 L (135-145) mmol/L Chloride 93 L (96-109) mmol/L Carbon Dioxide 31.6 H (20.0-27.5) mmol/L Anion Gap 9.40 L (10.00-18.00) mmol/L BUN/Creatinine Ratio 20.89 H (12.00-20.00) Ratio Glucose 234 H (70-110) mg/dL POC Glucose (mg/dL) 258 H (70-110) mg/dL Total Bilirubin <0.15 L (0.30-1.20) mg/dL AST 13 L (14-35) U/L ALT 7 L (10-49) U/L Albumin 3.4 L (3.8-4.9) g/dL Albumin/Globulin Ratio 1.06 L (1.60-3.17) g/dL 09/27/21 Range/Units 10:55 RBC (4.40-5.60) X 10*6/uL Hgb (13.0-17.0) g/dL Hct (39.6-50.0) % MCV (80.0-97.0) fL MCH (27.0-32.0) pg MCHC (32.0-37.0) g/dL RDW (11.5-14.5) % Plt Count (140-440) X 10*3/uL Sodium (135-145) mmol/L Chloride (96-109) mmol/L Carbon Dioxide (20.0-27.5) mmol/L Anion Gap (10.00-18.00) mmol/L BUN/Creatinine Ratio (12.00-20.00) Ratio Glucose (70-110) mg/dL POC Glucose (mg/dL) 398 H (70-110) mg/dL Total Bilirubin (0.30-1.20) mg/dL AST (14-35) U/L ALT (10-49) U/L Albumin (3.8-4.9) g/dL Albumin/Globulin Ratio (1.60-3.17) g/dL Assessment and Plan Plan: Acute diabetic ketoacidosis, patient admitted to telemetry floor, started on IV fluid and IV insulin drip Gastroenteritis with nausea and vomiting, viral gastroenteritis versus side effect from oral antibiotics Recent admission to [facility] due to lower extremity peripheral chrissy rial disease and cellulitis patient had toe amputation by Dr. Guerrier Underlying history of Diabetes Mellitus type 1 Underlying history of Hyperlipidemia, Underlying history of Osteoarthritis Underlying history of Depression Underlying history of seizure disorder Diarrhea with check stools for C. diff and stool culture At this time patient is admitted to medical floor, he is maintained on IV fluid At this time oral antibiotics are on hold, will start IV Rocephin Consult infectious disease Dr. Moran, consult Dr. Guerrier for evaluation of lower extremity Medication and labs were reviewed will follow closely
[2021-09-27] MEDS: ENOXAPARIN 40 MG/0.4 ML SYRINGE SQ SCH (12:43)
[2021-09-27] MEDS: PHENYTOIN SODIUM EXTENDED 100 MG CAP PO SCH ×2 (12:43→21:18)
[2021-09-27 17:17] LABS: Glucose,Whole Blood 337 mg/dL (70-110)
--- NOTE | 2021-09-27 18:44 | PN ---
PROGRESS NOTE The patient had a left big toe amputation done. Stump site is healing. Patient also has a wound on the calcaneous area. We are treating with local wound care using Aquacel Silver. Base of the wound is granulating. Plan is when patient goes home to continue with Aquacel Silver, which should be changed every 48 hours, and follow up in the wound clinic next Thursday. MMRAUL / IJN: [id number] /
[2021-09-27 20:04] LABS: Glucose,Whole Blood 213 mg/dL (70-110)
[2021-09-27] MEDS: ATORVASTATIN 20 MG TAB PO SCH (21:18)
[2021-09-27] MEDS: INSULIN DETEMIR (LEVEMIR) 100 UNIT/ML SYR SQ SCH (21:18)
[2021-09-27] MEDS: LATANOPROST 0.005% OPHTH DROPS 2.5 ML BTL BOTH EYES SCH (21:23)
[2021-09-28 07:07] LABS: Glucose,Whole Blood 201 mg/dL (70-110)
[2021-09-28] MEDS: ENOXAPARIN 40 MG/0.4 ML SYRINGE SQ SCH (08:18)
[2021-09-28] MEDS: INSULIN ASPART (NovoLOG) 100 UNIT/ML VIAL SQ SCH ×4 (08:18→21:21)
[2021-09-28] MEDS: PANTOPRAZOLE 40 MG TABLET PO SCH ×2 (08:19→18:12)
[2021-09-28] MEDS: LOTEPREDNOL ETABONATE LEFT EYE SCH ×2 (08:19→21:19)
[2021-09-28] MEDS: PIOGLITAZONE 15 MG TAB PO SCH (08:20)
[2021-09-28] MEDS: PHENYTOIN SODIUM EXTENDED 100 MG CAP PO SCH ×2 (08:20→22:23)
[2021-09-28] MEDS: KETOROLAC 0.5% OPHTH DROPS 5 ML BTL LEFT EYE SCH ×2 (08:21→21:17)
[2021-09-28 11:20] LABS: Glucose,Whole Blood 321 mg/dL (70-110)
--- NOTE | 2021-09-28 16:39 | P.PN ---
Subjective Progress Note Date: 09/26/21 Principal diagnosis: The left big toe amputation site wound and right lower extremity wounds Patient is a 61-year-old male with a past medical history significant for diabetes mellitus in this patient recently did have left big toe amputation for any diabetic foot infection and subsequently admitted to the hospital with nausea and vomiting patient has slight dehiscence of his left big toe amputation site incision also noticed to have multiple wounds to the right leg. on today's evaluation that is 09/26/2021, the patient denies having any fever or any chills the patient is currently breathing comfortably, denies any chest pain shortness of breath or cough no abdominal pain or any pain to his left big toe right lower extremity wounds Objective - Vital Signs Vital signs: Vital Signs Temp 97.5 F L 09/26/21 13:00 Pulse 113 H 09/26/21 13:00 Resp 18 09/26/21 13:00 BP 110/65 09/26/21 13:00 Pulse Ox 97 09/26/21 04:50 FiO2 Intake & Output 09/25/21 09/26/21 09/26/21 18:59 06:59 18:59 Intake Total 50 Output Total 900 Balance -850 Weight 42.5 kg Intake: Intake, IV Titration 50 Amount cefTRIAXone 1 gm In 50 Sodium Chloride 0.9% 50 ml @ 100 mls/hr IVPB Q24HR [facility] Rx#:[id number] Output: Urine 900 Other: Voiding Method Toilet # Voids 1 2 # Bowel Movements 1 1 - Exam GENERAL DESCRIPTION: Middle-aged male lying in bed in no distress RESPIRATORY SYSTEM: Unlabored breathing , decreased breath sounds at bases HEART: S1 S2 regular rate and rhythm , ABDOMEN: Soft , no tenderness EXTREMITIES: Left big toe wound is dressed no drainage of the dressing right lower extremity with multiple wounds which are dressed no drainage no redness - Labs CBC & Chem 7: 09/27/21 05:43 09/27/21 05:43 Labs: Abnormal Lab Results - Last 24 Hours (Table) 09/25/21 09/25/21 09/26/21 Range/Units 16:52 20:15 06:46 RBC 4.20 L (4.40-5.60) X 10*6/uL Hgb 8.4 L (13.0-17.0) g/dL Hct 29.2 L (39.6-50.0) % MCV 69.5 L (80.0-97.0) fL MCH 20.0 L (27.0-32.0) pg MCHC 28.8 L (32.0-37.0) g/dL RDW 16.4 H (11.5-14.5) % Plt Count 523 H (140-440) X 10*3/uL Eosinophils # 0.03 L (0.04-0.35) X 10*3/uL Sodium (135-145) mmol/L Chloride (96-109) mmol/L Carbon Dioxide (20.0-27.5) mmol/L Glucose (70-110) mg/dL POC Glucose (mg/dL) 222 H 191 H (70-110) mg/dL Total Bilirubin (0.30-1.20) mg/dL AST (14-35) U/L ALT (10-49) U/L Albumin (3.8-4.9) g/dL Albumin/Globulin Ratio (1.60-3.17) g/dL 09/26/21 09/26/21 09/26/21 Range/Units 06:46 07:03 11:04 RBC (4.40-5.60) X 10*6/uL Hgb (13.0-17.0) g/dL Hct (39.6-50.0) % MCV (80.0-97.0) fL MCH (27.0-32.0) pg MCHC (32.0-37.0) g/dL RDW (11.5-14.5) % Plt Count (140-440) X 10*3/uL Eosinophils # (0.04-0.35) X 10*3/uL Sodium 131 L (135-145) mmol/L Chloride 92 L (96-109) mmol/L Carbon Dioxide 28.4 H (20.0-27.5) mmol/L Glucose 552 H* (70-110) mg/dL POC Glucose (mg/dL) 491 H 473 H (70-110) mg/dL Total Bilirubin <0.15 L (0.30-1.20) mg/dL AST 12 L (14-35) U/L ALT 8 L (10-49) U/L Albumin 3.3 L (3.8-4.9) g/dL Albumin/Globulin Ratio 1.03 L (1.60-3.17) g/dL Microbiology - Last 24 Hours (Table) 09/25/21 22:42 Stool Culture - Preliminary Stool Assessment and Plan (1) Diabetic foot ulcer Current Visit: No Status: Acute Code(s): E11.621 - TYPE 2 DIABETES MELLITUS WITH FOOT ULCER; L97.509 - NON-PRESSURE CHRONIC ULCER OTH PRT UNSP FOOT W UNSP SEVERITY SNOMED Code(s): 778081123 (2) Diabetic ulcer of right foot Current Visit: No Status: Acute Code(s): E11.621 - TYPE 2 DIABETES MELLITUS WITH FOOT ULCER; L97.519 - NON-PRS CHRONIC ULCER OTH PRT RIGHT FOOT W UNSP SEVERITY SNOMED Code(s): 897120292 Plan: 1patient with left big toe amputation site wound dehiscence however no evidence of any active cellulitis in this patient with no fever or elevated white count. 2patient with multiple wound to the right lower extremity with evidence of any slough tissue or secondary cellulitis will be recommending local wound care. 3local wound care to continue Aquacel silver dressing to his wound to be changed to 48-hour. 4no need for systemic antibiotic therapy. Time with Patient: Less than 30
--- NOTE | 2021-09-28 16:40 | P.PN ---
Subjective Progress Note Date: 09/27/21 Principal diagnosis: The left big toe amputation site wound and right lower extremity wounds Patient is a 61-year-old male with a past medical history significant for diabetes mellitus in this patient recently did have left big toe amputation for any diabetic foot infection and subsequently admitted to the hospital with nausea and vomiting patient has slight dehiscence of his left big toe amputation site incision also noticed to have multiple wounds to the right leg. on today's evaluation that is 09/27/2021, the patient remains to be afebrile, the patient is breathing comfortably on room air, the patient denies any chest pain shortness of breath or cough no abdominal pain or any pain to his left big toe right lower extremity wounds Objective - Vital Signs Vital signs: Vital Signs Temp 97.6 F 09/27/21 13:19 Pulse 89 09/27/21 13:19 Resp 18 09/27/21 13:19 BP 131/74 09/27/21 13:19 Pulse Ox 96 09/27/21 04:26 FiO2 Intake & Output 09/26/21 09/27/21 09/27/21 18:59 06:59 18:59 Intake Total 100 Balance 100 Weight 42.5 kg Intake: Intake, IV Titration 100 Amount cefTRIAXone 1 gm In 100 Sodium Chloride 0.9% 50 ml @ 100 mls/hr IVPB Q24HR [facility] Rx#:[id number] Other: Voiding Method Toilet Toilet # Voids 1 - Exam GENERAL DESCRIPTION: Middle-aged male lying in bed in no distress RESPIRATORY SYSTEM: Unlabored breathing , decreased breath sounds at bases HEART: S1 S2 regular rate and rhythm , ABDOMEN: Soft , no tenderness EXTREMITIES: Left big toe wound is dressed no drainage of the dressing right lower extremity with multiple wounds which are dressed no drainage no redness - Labs CBC & Chem 7: 09/27/21 05:43 09/27/21 05:43 Labs: Abnormal Lab Results - Last 24 Hours (Table) 09/26/21 09/26/21 09/27/21 Range/Units 17:13 20:11 05:43 RBC 4.05 L (4.40-5.60) X 10*6/uL Hgb 8.4 L (13.0-17.0) g/dL Hct 27.9 L (39.6-50.0) % MCV 68.9 L (80.0-97.0) fL MCH 20.7 L (27.0-32.0) pg MCHC 30.1 L (32.0-37.0) g/dL RDW 16.3 H (11.5-14.5) % Plt Count 485 H (140-440) X 10*3/uL Sodium (135-145) mmol/L Chloride (96-109) mmol/L Carbon Dioxide (20.0-27.5) mmol/L Anion Gap (10.00-18.00) mmol/L BUN/Creatinine Ratio (12.00-20.00) Ratio Glucose (70-110) mg/dL POC Glucose (mg/dL) 318 H 259 H (70-110) mg/dL Total Bilirubin (0.30-1.20) mg/dL AST (14-35) U/L ALT (10-49) U/L Albumin (3.8-4.9) g/dL Albumin/Globulin Ratio (1.60-3.17) g/dL 09/27/21 09/27/21 09/27/21 Range/Units 05:43 06:51 10:55 RBC (4.40-5.60) X 10*6/uL Hgb (13.0-17.0) g/dL Hct (39.6-50.0) % MCV (80.0-97.0) fL MCH (27.0-32.0) pg MCHC (32.0-37.0) g/dL RDW (11.5-14.5) % Plt Count (140-440) X 10*3/uL Sodium 134 L (135-145) mmol/L Chloride 93 L (96-109) mmol/L Carbon Dioxide 31.6 H (20.0-27.5) mmol/L Anion Gap 9.40 L (10.00-18.00) mmol/L BUN/Creatinine Ratio 20.89 H (12.00-20.00) Ratio Glucose 234 H (70-110) mg/dL POC Glucose (mg/dL) 258 H 398 H (70-110) mg/dL Total Bilirubin <0.15 L (0.30-1.20) mg/dL AST 13 L (14-35) U/L ALT 7 L (10-49) U/L Albumin 3.4 L (3.8-4.9) g/dL Albumin/Globulin Ratio 1.06 L (1.60-3.17) g/dL Assessment and Plan (1) Diabetic foot ulcer Current Visit: No Status: Acute Code(s): E11.621 - TYPE 2 DIABETES MELLITUS WITH FOOT ULCER; L97.509 - NON-PRESSURE CHRONIC ULCER OTH PRT UNSP FOOT W UNSP SEVERITY SNOMED Code(s): 119097310 Plan: 1patient with left big toe amputation site wound dehiscence however no evidence of any active cellulitis in this patient with no fever or elevated white count. 2patient with multiple wound to the right lower extremity with no evidence of any slough tissue or surrounding redness or any foul-smelling drainage 3patient to continue local wound care to continue Aquacel silver dressing to his wound to be changed to 48-hour. Time with Patient: Less than 30
--- NOTE | 2021-09-28 16:42 | P.PN ---
Subjective Progress Note Date: 09/28/21 Principal diagnosis: The left big toe amputation site wound and right lower extremity wounds Patient is a 61-year-old male with a past medical history significant for diabetes mellitus in this patient recently did have left big toe amputation for any diabetic foot infection and subsequently admitted to the hospital with nausea and vomiting patient has slight dehiscence of his left big toe amputation site incision also noticed to have multiple wounds to the right leg. on today's evaluation that is 09/28/2021, the patient continues to be afebrile, the patient is breathing comfortably on room air, the patient denies chest pain shortness of breath or cough, the patient denies abdominal pain or any pain to his left big toe right lower extremity wounds Objective - Vital Signs Vital signs: Vital Signs Temp 98.2 F 09/28/21 11:28 Pulse 96 09/28/21 11:28 Resp 18 09/28/21 11:28 BP 115/71 09/28/21 11:28 Pulse Ox 99 09/28/21 11:28 FiO2 Intake & Output 09/27/21 09/28/21 09/28/21 18:59 06:59 18:59 Intake Total 590 Balance 590 Weight 42.5 kg Intake: Oral 590 Other: Voiding Method Toilet Toilet Toilet # Voids 1 3 # Bowel Movements 1 - Exam GENERAL DESCRIPTION: Middle-aged male lying in bed in no distress RESPIRATORY SYSTEM: Unlabored breathing , decreased breath sounds at bases HEART: S1 S2 regular rate and rhythm , ABDOMEN: Soft , no tenderness EXTREMITIES: Left big toe wound is dressed no drainage of the dressing right lower extremity with multiple wounds which are dressed no drainage no redness - Labs CBC & Chem 7: 09/27/21 05:43 09/27/21 05:43 Labs: Abnormal Lab Results - Last 24 Hours (Table) 09/27/21 09/27/21 09/28/21 Range/Units 17:15 20:03 07:06 POC Glucose (mg/dL) 337 H 213 H 201 H (70-110) mg/dL 09/28/21 Range/Units 11:17 POC Glucose (mg/dL) 321 H (70-110) mg/dL Microbiology - Last 24 Hours (Table) 09/25/21 22:42 Stool Culture - Preliminary Stool Assessment and Plan (1) Diabetic foot ulcer Current Visit: No Status: Acute Code(s): E11.621 - TYPE 2 DIABETES MELLITUS WITH FOOT ULCER; L97.509 - NON-PRESSURE CHRONIC ULCER OTH PRT UNSP FOOT W UNSP SEVERITY SNOMED Code(s): 201938950 Plan: 1patient with left big toe amputation site wound dehiscence however no evidence of any active cellulitis in this patient with no fever or elevated white count. 2patient with multiple wound to the right lower extremity with no evidence of any slough tissue or surrounding redness or any foul-smelling drainage 3patient advised local wound care with Aquacel silver dressing to his wound to be changed to 48-hour and no need for systemic antibiotic therapy. Time with Patient: Less than 30
[2021-09-28 17:04] LABS: Glucose,Whole Blood 300 mg/dL (70-110)
--- NOTE | 2021-09-28 17:20 | P.PN ---
Subjective Progress Note Date: 09/28/21 Pietro Ryder, he is a 61-year-old male who presented to [facility] emergency room with a chief complaint of nausea and vomiting He was evaluated in the emergency room vital examination on presentation revealed a temperature of 98.4 pulse 105 respiration 16 blood pressure 98/56 pulse ox 99% on room air Laboratory data revealed a white blood count of 10.4 hemoglobin 9.9 platelet count 659 sodium 137 potassium 4.6 chloride 103 CO2 22 BUN 21 creatinine 0.89 glucose level on presentation was 484 Testing in the emergency room revealed chest x-ray done in the emergency room revealed no acute abnormality Patient was admitted to medical floor for further evaluation and treatment On 09/25/2021 patient was seen and examined on the medical floor he is alert and oriented 3 in no apparent distress he is complaining of multiple episodes of watery diarrhea otherwise he denies any complaints there is no fever or chills no headache or dizziness no chest pain no shortness of breath no cough no nausea or vomiting no abdominal pain and no urinary symptoms On 09/26/2021 patient was seen and examined on the medical floor he is alert and oriented 3 in no apparent distress there is no more episodes of nausea and vomiting he is still having episodes of diarrhea stools was negative for Clostridium difficile Lomotil 2.5 mg by mouth every 6 hours when necessary was added to his regimen otherwise he denies any complaints there is no fever or chills no headache or dizziness no chest pain no shortness of breath no cough no nausea or vomiting no abdominal pain and no urinary symptoms. glucose levels are elevated at this time will add Lantus 15 units at bedtime and monitor closely On 09/27/2021 patient was seen and examined on the medical floor he is alert and oriented 3 in no apparent distress there is no fever or chills no headache or dizziness no chest pain no shortness of breath no cough no nausea or vomiting no abdominal pain no diarrhea and no urinary symptoms. Glucose level are still elevated. At this time will increase Lantus to 18 units at bedtime. Continue with IV antibiotics awaiting recommendation from infectious disease regarding antibiotic at the time of discharge On 09/28/2021 patient was seen and examined on the medical floor he is alert and oriented 3 in no apparent distress again this morning he had episodes of nausea and vomiting otherwise he denies any complaints there is no fever or chills no headache or dizziness no chest pain no shortness of breath no cough no abdominal pain no diarrhea no blood in the stools no burning with urination no frequency or urgency and no hematuria Objective - Vital Signs Vital signs: Vital Signs Temp 98.2 F 09/28/21 11:28 Pulse 96 09/28/21 11:28 Resp 18 09/28/21 11:28 BP 115/71 09/28/21 11:28 Pulse Ox 99 09/28/21 11:28 FiO2 Intake & Output 09/27/21 09/28/21 09/28/21 18:59 06:59 18:59 Intake Total 590 Balance 590 Weight 42.5 kg Intake: Oral 590 Other: Voiding Method Toilet Toilet Toilet # Voids 1 3 # Bowel Movements 1 - Exam In general patient is alert and oriented 3 in no distress HEENT head normocephalic and atraumatic Neck is supple no JVD no goiter no lymphadenopathy no carotid bruit Chest examination is clear to auscultation no crackles no wheezing Cardiac exam reveals regular heart sounds S1 and S2 no gallops no murmurs Abdomen is soft nontender no organomegaly with normal bowel sounds Extremity exam reveals no edema no cyanosis or clubbing Neurological examination reveals no gross focal deficits - Labs CBC & Chem 7: 09/27/21 05:43 09/27/21 05:43 Labs: Abnormal Lab Results - Last 24 Hours (Table) 09/27/21 09/27/21 09/28/21 Range/Units 17:15 20:03 07:06 POC Glucose (mg/dL) 337 H 213 H 201 H (70-110) mg/dL 09/28/21 Range/Units 11:17 POC Glucose (mg/dL) 321 H (70-110) mg/dL Microbiology - Last 24 Hours (Table) 09/25/21 22:42 Stool Culture - Preliminary Stool Assessment and Plan Plan: Acute diabetic ketoacidosis, patient admitted to telemetry floor, started on IV fluid and IV insulin drip Gastroenteritis with nausea and vomiting, viral gastroenteritis versus side effect from oral antibiotics Recent admission to [facility] due to lower extremity peripheral arterial disease and cellulitis patient had toe amputation by Dr. Guerrier Underlying history of Diabetes Mellitus type 1 Underlying history of Hyperlipidemia, Underlying history of Osteoarthritis Underlying history of Depression Underlying history of seizure disorder Diarrhea with check stools for C. diff and stool culture At this time patient is admitted to medical floor, he is maintained on IV fluid At this time oral antibiotics are on hold, will start IV Rocephin Consult infectious disease Dr. Moran, consult Dr. Guerrier for evaluation of lower extremity Medication and labs were reviewed will follow closely
[2021-09-28 20:48] LABS: Glucose,Whole Blood 254 mg/dL (70-110)
[2021-09-28] MEDS: ATORVASTATIN 20 MG TAB PO SCH (21:16)
[2021-09-28] MEDS: INSULIN DETEMIR (LEVEMIR) 100 UNIT/ML SYR SQ SCH (21:16)
[2021-09-28] MEDS: LATANOPROST 0.005% OPHTH DROPS 2.5 ML BTL BOTH EYES SCH (21:17)
[2021-09-28 22:32] VITALS: RESP 20
[2021-09-29 06:00] VITALS: BP 126/68; PULSE 97; TEMP 98.2
[2021-09-29 06:32] LABS: Glucose,Whole Blood 125 mg/dL (70-110)
[2021-09-29] MEDS: INSULIN ASPART (NovoLOG) 100 UNIT/ML VIAL SQ SCH ×2 (08:24→12:38)
[2021-09-29] MEDS: ENOXAPARIN 40 MG/0.4 ML SYRINGE SQ SCH (08:34)
[2021-09-29] MEDS: PIOGLITAZONE 15 MG TAB PO SCH (08:34)
[2021-09-29] MEDS: PHENYTOIN SODIUM EXTENDED 100 MG CAP PO SCH (08:34)
[2021-09-29] MEDS: PANTOPRAZOLE 40 MG TABLET PO SCH (08:34)
[2021-09-29] MEDS: LOTEPREDNOL ETABONATE LEFT EYE SCH (08:35)
[2021-09-29] MEDS: KETOROLAC 0.5% OPHTH DROPS 5 ML BTL LEFT EYE SCH (08:35)
--- NOTE | 2021-09-29 09:19 | P.DS ---
Providers Date of admission: 09/23/21 18:58 Expected date of discharge: 09/29/21 Attending physician: Helen Chen Consults: 09/24/21 19:22 Consult Physician Routine Consulting Provider: Tess Moran Consult Reason/Comments: leg ulcer Do you want consulting provider notified?: Yes 09/24/21 19:37 Consult Physician Routine Consulting Provider: Bladimir Moyer Consult Reason/Comments: Recent toe amputation Do you want consulting provider notified?: Yes Primary care physician: [facility] Course: Diagnosis on discharge: Acute diabetic ketoacidosis, patient admitted to telemetry floor, started on IV fluid and IV insulin drip Gastroenteritis with nausea and vomiting, viral gastroenteritis versus side effect from oral antibiotics Recent admission to [facility] due to lower extremity peripheral arterial disease and cellulitis patient had toe amputation by Dr. Moyer Underlying history of Diabetes Mellitus type 1 Underlying history of Hyperlipidemia, Underlying history of Osteoarthritis Underlying history of Depression Underlying history of seizure disorder Diarrhea with check stools for C. diff and stool culture Hospital course: Pietro Ryder, he is a 61-year-old male who presented to [facility] emergency room with a chief complaint of nausea and vomiting He was evaluated in the emergency room vital examination on presentation revealed a temperature of 98.4 pulse 105 respiration 16 blood pressure 98/56 pulse ox 99% on room air Laboratory data revealed a white blood count of 10.4 hemoglobin 9.9 platelet count 659 sodium 137 potassium 4.6 chloride 103 CO2 22 BUN 21 creatinine 0.89 glucose level on presentation was 484 Testing in the emergency room revealed chest x-ray done in the emergency room revealed no acute abnormality Patient was admitted to medical floor for further evaluation and treatment On 09/25/2021 patient was seen and examined on the medical floor he is alert and oriented 3 in no apparent distress he is complaining of multiple episodes of watery diarrhea otherwise he denies any complaints there is no fever or chills no headache or dizziness no chest pain no shortness of breath no cough no nausea or vomiting no abdominal pain and no urinary symptoms On 09/26/2021 patient was seen and examined on the medical floor he is alert and oriented 3 in no apparent distress there is no more episodes of nausea and vomiting he is still having episodes of diarrhea stools was negative for Clostridium difficile Lomotil 2.5 mg by mouth every 6 hours when necessary was added to his regimen otherwise he denies any complaints there is no fever or chills no headache or dizziness no chest pain no shortness of breath no cough no nausea or vomiting no abdominal pain and no urinary symptoms. glucose levels are elevated at this time will add Lantus 15 units at bedtime and monitor closely On 09/27/2021 patient was seen and examined on the medical floor he is alert and oriented 3 in no apparent distress there is no fever or chills no headache or dizziness no chest pain no shortness of breath no cough no nausea or vomiting no abdominal pain no diarrhea and no urinary symptoms. Glucose level are still elevated. At this time will increase Lantus to 18 units at bedtime. Continue with IV antibiotics awaiting recommendation from infectious disease regarding antibiotic at the time of discharge On 09/28/2021 patient was seen and examined on the medical floor he is alert and oriented 3 in no apparent distress again this morning he had episodes of nausea and vomiting otherwise he denies any complaints there is no fever or chills no headache or dizziness no chest pain no shortness of breath no cough no abdominal pain no diarrhea no blood in the stools no burning with urination no frequency or urgency and no hematuria On 09/29/2021 patient was seen and examined on the medical floor he is alert and oriented 3 in no apparent distress there is no fever or chills no headache or dizziness no chest pain no shortness of breath no nausea or vomiting no pain no diarrhea no blood in the stools no burning with urination no frequency or urgency no hematuria. Recommendation from Dr. Moran reviewed, no need for oral antibiotics, patient will be discharged to home today, will follow in the office within 1 week. Patient has Lantus and Admelog at home, he was instructed to take Lantus 20 units at bedtime, and to take Admelog 5 units before each meal, and to skip taking the Admelog if he is going to skip them he meal. Plan - Discharge Summary New Discharge Prescriptions: New Insulin Lispro [Admelog] 5 units SQ TID #10 ml Insulin Glargine [Lantus Vial] 20 unit SQ DAILY #10 ml Continue Omeprazole 20 mg PO AC-BID Pioglitazone HCl [Actos] 15 mg PO DAILY Diphenox-Atrop 2.5-0.025 mg [Lomotil] 1 tab PO BID PRN PRN Reason: Loose Stool Rosuvastatin [Crestor] 10 mg PO HS Latanoprost/Pf [Latanoprost 0.005% Eye Drop] 1 drop BOTH EYES HS Acetaminophen Tab [Tylenol] 325 mg PO Q6HR PRN PRN Reason: Mild Pain Or Fever > 100.5 Ketorolac 0.5% Ophth Soln [Acular 0.5%] 1 drops LEFT EYE BID Phenytoin Sodium Extended [Dilantin] 60 mg PO BID Acetaminophen-Codeine 300-30mg [Tylenol w/codeine #3] 1 tab PO TID PRN PRN Reason: Pain Ondansetron Odt [Zofran ODT] 4 mg PO Q8HR PRN #12 tab PRN Reason: Nausea Loteprednol Etabonate [Inveltys] 1 drop LEFT EYE BID Mupirocin 2% Oint [Bactroban 2% Oint] 1 applic TOPICAL DAILY Discontinued traMADol HCL [Ultram] 50 mg PO Q6H PRN PRN Reason: Pain Insulin Glargine [Lantus Vial] 50 unit SQ DAILY HYDROcodone/APAP 10-325MG [[place] 10-325] 1 tab PO TID PRN PRN Reason: Pain Triamcinolone 0.5% Cream [Kenalog 0.5% Cream] 1 applic TOPICAL DAILY INSULIN ASPART (NovoLOG) [NovoLOG (formulary)] See Protocol SQ AC-TID PRN PRN Reason: high blood sugar Discharge Medication List Omeprazole 20 mg PO AC-BID 06/13/17 [History] Pioglitazone HCl [Actos] 15 mg PO DAILY 10/03/18 [History] Diphenox-Atrop 2.5-0.025 mg [Lomotil] 1 tab PO BID PRN 11/17/19 [History] Rosuvastatin [Crestor] 10 mg PO HS 05/15/20 [History] Latanoprost/Pf [Latanoprost 0.005% Eye Drop] 1 drop BOTH EYES HS 06/15/21 [History] Phenytoin Sodium Extended [Dilantin] 60 mg PO BID 07/14/21 [History] Acetaminophen Tab [Tylenol] 325 mg PO Q6HR PRN 07/17/21 [History] Acetaminophen-Codeine 300-30mg [Tylenol w/codeine #3] 1 tab PO TID PRN 07/17/21 [History] Ondansetron Odt [Zofran ODT] 4 mg PO Q8HR PRN #12 tab 07/29/21 [Rx] Ketorolac 0.5% Ophth Soln [Acular 0.5%] 1 drops LEFT EYE BID 08/30/21 [History] Loteprednol Etabonate [Inveltys] 1 drop LEFT EYE BID 08/30/21 [History] Mupirocin 2% Oint [Bactroban 2% Oint] 1 applic TOPICAL DAILY 09/23/21 [History] Insulin Glargine [Lantus Vial] 20 unit SQ DAILY #10 ml 09/29/21 [Rx] Insulin Lispro [Admelog] 5 units SQ TID #10 ml 09/29/21 [Rx] Follow up Appointment(s)/Referral(s): [facility] [[facility]-STAFF] - 10/07/21 (PLEASE CALL TO MAKE YOUR APPOINTMENT Thursday10/07/[address] MOYER [facility].) Helen Chen MD [Primary Care Provider] - 1-2 days
[2021-09-29 12:30] LABS: Glucose,Whole Blood 411 mg/dL (70-110)
[2021-09-29] MEDS ORDERED: INSULIN ASPART (NovoLOG) 100 UNIT/ML VIAL SQ ONE (12:33)
== END 2021-09-29 14:21 | disposition home or self-care (01) | DRG 639 ==
LOC: EC 15:25 → 3SCARD 18:58 → 5NMEDONC 09-24 11:13
PROVIDERS: ADMIT Internal Medicine; ATTEND Internal Medicine
DX: E10.10 Type 1 diabetes mellitus with ketoacidosis without coma (principal); E10.51 Type 1 diabetes mellitus with diabetic peripheral angiopathy without gangrene; E10.621 Type 1 diabetes mellitus with foot ulcer; E78.5 Hyperlipidemia, unspecified; E83.39 Other disorders of phosphorus metabolism; E87.5 Hyperkalemia; F32.A Depression, unspecified; G40.909 Epilepsy, unspecified, not intractable, without status epilepticus; K52.9 Noninfective gastroenteritis and colitis, unspecified; L97.519 Non-pressure chronic ulcer of other part of right foot with unspecified severity; M17.12 Unilateral primary osteoarthritis, left knee; Z20.822 Contact with and (suspected) exposure to COVID-19; M19.90 Unspecified osteoarthritis, unspecified site; Z89.412 Acquired absence of left great toe; Z83.3 Family history of diabetes mellitus; Z82.49 Family history of ischemic heart disease and other diseases of the circulatory system; Z80.9 Family history of malignant neoplasm, unspecified; Z79.84 Long term (current) use of oral hypoglycemic drugs; Z79.4 Long term (current) use of insulin; Z86.14 Personal history of Methicillin resistant Staphylococcus aureus infection; Z79.899 Other long term (current) drug therapy; Z85.89 Personal history of malignant neoplasm of other organs and systems; K21.9 Gastro-esophageal reflux disease without esophagitis
CPT/HCPCS: 36415; 71046; 80051; 80053; 80306; 81003; 82009; 82150; 82565; 82803; 82947; 83690; 83735; 84100; 84520; 85025; 87045; 87046; 87324; 87502; 87635; 93005; 96361; 96365; 96366; 96375; 99285

== ENCOUNTER 2021-10-10 18:14 | Emergency (ER) | payer OTHER ==
[2021-10-10 19:01] VITALS: RESP 20; TEMP 98.1
[2021-10-10 19:42] LABS: Anisocytosis Slight; Basophils % (A) 0 %; Eosinophils % (A) 0 %; HCT 35.4 % (39.0-53.0); HGB 10.3 gm/dL (13.0-17.5); Hypochromasia Marked; Lymphocytes # (A) 0.9 k/uL (1.0-4.8); Lymphocytes % (A) 11 %; MCH 21.5 pg (25.0-35.0); MCHC 29.1 g/dL (31.0-37.0); Mean Platelet Volume 6.6; Microcytosis Slight; Monocytes # (A) 0.2 k/uL (0-1.0); Monocytes % (A) 2 %; Neutrophils # (A) 6.8 k/uL (1.3-7.7); Neutrophils % (A) 85 %; Platelet Count 617 k/uL (150-450); RBC 4.79 m/uL (4.30-5.90); RDW 16.3 % (11.5-15.5)
[2021-10-10 19:44] LABS: ALT 10 U/L (4-49); AST 17 U/L (17-59); African American GFR (CKD) >90 (>60 ml/min/1.73 sqM); Alkaline Phosphatase 157 U/L (38-126); Anion Gap 12 mmol/L; Blood Urea Nitrogen 13 mg/dL (9-20); Calcium 9.6 mg/dL (8.4-10.2); Carbon Dioxide 28 mmol/L (22-30); Chloride 87 mmol/L (98-107); Non-African American GFR(CKD) >90 (>60 ml/min/1.73 sqM); Potassium 5.3 mmol/L (3.5-5.1); Sodium 127 mmol/L (137-145); Total Bilirubin 0.2 mg/dL (0.2-1.3); Total Protein 7.8 g/dL (6.3-8.2)
--- NOTE | 2021-10-10 19:56 | XR ---
EXAMINATION TYPE: XR chest 2V DATE OF EXAM: 10/10/2021 COMPARISON: 09/23/2021 HISTORY: Dyspnea TECHNIQUE: Frontal and lateral views of the chest are obtained. FINDINGS: There is no focal air space opacity, pleural effusion, or pneumothorax seen. The cardiac silhouette size is within normal limits. The osseous structures are intact. IMPRESSION: No acute cardiopulmonary process.
[2021-10-10 20:00] LABS: Glucose 613 mg/dL (74-99)
[2021-10-10 20:05] LABS: INR 0.8 (<1.2); Partial Thromboplastin Time 24.3 sec (22.0-30.0); Prothrombin Time 9.4 sec (9.0-12.0)
[2021-10-10] MEDS ORDERED: SODIUM CHLORIDE 0.9% 1,000 ML IV STA (20:55)
[2021-10-10] MEDS ORDERED: INSULIN REGULAR 100 UNIT/ML VIAL (IV) IV ONE (21:09)
--- NOTE | 2021-10-10 21:12 | ED ---
General Adult HPI - General Source: patient Mode of arrival: ambulatory Limitations: no limitations <EmmanuellisandroKrishan Sonia - Last Filed: 10/10/21 22:54> <Artemio Mason - Last Filed: 10/11/21 00:20> - General Chief complaint: Shortness of Breath Stated complaint: JUSTO Time Seen by Provider: 10/10/21 20:48 - History of Present Illness Initial comments: Dictation was produced using [employer] dictation software. please excuse any grammatical, word or spelling errors. Chief Complaint: 61-year-old male presents to the emergency department for shortness of breath History of Present Illness: Patient is 61-year-old male presents to the emergency department for charts breath. Patient states that his symptoms have been ongoing for a week. Patient states that he has been admitted recently for shortness of breath. He was discharged without any obvious cause. Patient has any cough. No chest pain or belly pain. No nausea vomiting. Denies any fever constitutional symptoms. Patient denies any history of heart failure. The ROS documented in this emergency department record has been reviewed and c onfirmed by me. Those systems with pertinent positive or negative responses have been documented in the HPI. All other systems are other negative and/or noncontributory. PHYSICAL EXAM: General Impression: Alert and oriented x3, not in acute distress, malodorous HEENT: Normocephalic atraumatic, extra-ocular movements intact, pupils equal and reactive to light bilaterally, mucous membranes moist. Cardiovascular: Heart regular rate and rhythm Chest: Able to complete full sentences, no retractions, no tachypnea Abdomen: abdomen soft, non-tender, non-distended, no organomegaly Musculoskeletal: Pulses present and equal in all extremities, no peripheral edema Motor: no focal deficits noted Neurological: CN II-XII grossly intact, no focal motor or sensory deficits noted Skin: Intact with no visualized rashes Psych: Normal affect and mood ED course: 61-year-old male presents emergency for shortness of breath. Patient is well-appearing at the bedside. Patient's lung examination is unremarkable. Clear to auscultation bilaterally. Patient has any high-risk features. Vital signs are stable. Patient had a CT ROSARIO from August of this year showed no acute processes. Patient is recently hospitalized last month for foot wounds. Patient had echocardiogram from July of this year and showed no findings of heart failure. Labs and imaging was ordered by triage nurse per advanced triage pro tocol. X-ray is unremarkable for any acute processes. Laboratory evaluation obtained showing CBC within acceptable limits. Normal coag panel. Sodium 127 with a glucose of 613. No Acidosis. No acidosis. Patient was given 10 units of regular insulin. He is also given IV fluids. Patient care signed out to Dr. Mason. (Krishan Argueta) - Related Data Home Medications Medication Instructions Recorded Confirmed Omeprazole 20 mg PO AC-BID 06/13/17 10/10/21 Pioglitazone HCl [Actos] 15 mg PO DAILY 10/03/18 10/10/21 Diphenox-Atrop 2.5-0.025 mg 1 tab PO BID PRN 11/17/19 10/10/21 [Lomotil] Rosuvastatin [Crestor] 10 mg PO HS 05/15/20 10/10/21 Latanoprost/Pf [Latanoprost 0.005% 1 drop BOTH EYES HS 06/15/21 10/10/21 Eye Drop] Phenytoin Sodium Extended 60 mg PO BID 07/14/21 10/10/21 [Dilantin] Acetaminophen Tab [Tylenol] 325 mg PO Q6HR PRN 07/17/21 10/10/21 Acetaminophen-Codeine 300-30mg 1 tab PO TID PRN 07/17/21 10/10/21 [Tylenol w/codeine #3] Ketorolac 0.5% Ophth Soln [Acular 1 drops LEFT EYE BID 08/30/21 10/10/21 0.5%] Loteprednol Etabonate [Inveltys] 1 drop LEFT EYE BID 08/30/21 10/10/21 Mupirocin 2% Oint [Bactroban 2% 1 applic TOPICAL DAILY 09/23/21 10/10/21 Oint] Previous Rx's Medication Instructions Recorded Ondansetron Odt [Zofran ODT] 4 mg PO Q8HR PRN #12 tab 07/29/21 Insulin Glargine [Lantus Vial] 20 unit SQ DAILY #10 ml 09/29/21 Insulin Lispro [Admelog] 5 units SQ TID #10 ml 09/29/21 Allergies Allergy/AdvReac Type Severity Reaction Status Date / Time No Known Allergies Allergy Verified 10/10/21 23:20 Review of Systems ROS Other: All systems not noted in ROS Statement are negative. <Krishan Argueta - Last Filed: 10/10/21 22:54> ROS Other: All systems not noted in ROS Statement are negative. <EloiserebecaArtemio - Last Filed: 10/11/21 00:20> ROS Statement: Those systems with pertinent positive or pertinent negative responses have been documented in the HPI. Past Medical History Past Medical History: Diabetes Mellitus, Diabetes Mellitus, GERD/Reflux, Hyperlipidemia, Osteoarthritis (OA), Seizure Disorder Additional Past Medical History / Comment(s): IDDM type 1 per pt, bilateral feet neuropathy, pt states current wounds to bilateral feet/goes to [facility]/seen by Dr. Major (investment advisor), past L lower extremity cellulitis with sepsis, L wrist cancerous tumor removed, past seizure about a year ago, arthritis L knee, vertigo, occasional diarrhea. History of Any Multi-Drug Resistant Organisms: MRSA Date of last positivie culture/infection: 12/29/19 MDRO Source:: Left Leg Past Surgical History: Orthopedic Surgery, Tonsillectomy Additional Past Surgical History / Comment(s): 01/23/20 angiogram L leg, 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, colonoscopy, L eye surgery for strabismus. Past Anesthesia/Blood Transfusion Reactions: No Reported Reaction Past Psychological History: Depression Smoking Status: Never smoker Past Alcohol Use History: None Reported Past Drug Use History: None Reported - Past Family History Father Family Medical History: Myocardial Infarction ([place]) Additional Family Medical History / Comment(s): Father of a [place] at the age of 57yrs. Mother Family Medical History: Cancer Additional Family Medical History / Comment(s): Mother from cancer at the age of 61 or 62 . Pt cannot recall type of cancer. Sister(s) Family Medical History: Diabetes Mellitus Additional Family Medical History / Comment(s): Sister had DM type 1. She is . <Krishan Argueta - Last Filed: 10/10/21 22:54> General Exam Limitations: no limitations <Krishan Argueta - Last Filed: 10/10/21 22:54> Course Vital Signs 10/10/21 18:59 Temperature 98.1 F Pulse Rate 110 H Respiratory 20 Rate Blood Pressure 119/76 O2 Sat by Pulse 99 Oximetry Medical Decision Making - Lab Data Result diagrams: 10/10/21 19:06 10/10/21 19:06 <Krishan Argueta - Last Filed: 10/10/21 22:54> - Lab Data Result diagrams: 10/10/21 19:06 10/10/21 19:06 <Artemio Mason - Last Filed: 10/11/21 00:20> - Lab Data Lab Results 10/10/21 10/10/21 10/10/21 Range/Units 19:06 19:06 19:06 WBC 8.0 (3.8-10.6) k/uL RBC 4.79 (4.30-5.90) m/uL Hgb 10.3 L (13.0-17.5) gm/dL Hct 35.4 L (39.0-53.0) % MCV 74.0 L (80.0-100.0) fL MCH 21.5 L (25.0-35.0) pg MCHC 29.1 L (31.0-37.0) g/dL RDW 16.3 H (11.5-15.5) % Plt Count 617 H (150-450) k/uL MPV 6.6 Neutrophils % 85 % Lymphocytes % 11 % Monocytes % 2 % Eosinophils % 0 % Basophils % 0 % Neutrophils # 6.8 (1.3-7.7) k/uL Lymphocytes # 0.9 L (1.0-4.8) k/uL Monocytes # 0.2 (0-1.0) k/uL Eosinophils # 0.0 (0-0.7) k/uL Basophils # 0.0 (0-0.2) k/uL Hypochromasia Marked Anisocytosis Slight Microcytosis Slight PT 9.4 (9.0-12.0) sec INR 0.8 (<1.2) APTT 24.3 (22.0-30.0) sec Sodium 127 L (137-145) mmol/L Potassium 5.3 H (3.5-5.1) mmol/L Chloride 87 L (98-107) mmol/L Carbon Dioxide 28 (22-30) mmol/L Anion Gap 12 mmol/L BUN 13 (9-20) mg/dL Creatinine 0.74 (0.66-1.25) mg/dL Est GFR (CKD-EPI)AfAm >90 (>60 ml/min/1.73 sqM) Est GFR (CKD-EPI)NonAf >90 (>60 ml/min/1.73 sqM) Glucose 613 H* (74-99) mg/dL POC Glucose (mg/dL) (70-110) mg/dL POC Glu Containers Sales Representative ID Calcium 9.6 (8.4-10.2) mg/dL Total Bilirubin 0.2 (0.2-1.3) mg/dL AST 17 (17-59) U/L ALT 10 (4-49) U/L Alkaline Phosphatase 157 H (38-126) U/L Troponin I (0.000-0.034) ng/mL Total Protein 7.8 (6.3-8.2) g/dL Albumin 4.0 (3.5-5.0) g/dL Influenza Type A (PCR) (Not Detectd) Influenza Type B (PCR) (Not Detectd) RSV (PCR) (Not Detectd) SARS-CoV-2 (PCR) (Not Detectd) 10/10/21 10/10/21 10/10/21 Range/Units 19:06 21:12 23:05 WBC (3.8-10.6) k/uL RBC (4.30-5.90) m/uL Hgb (13.0-17.5) gm/dL Hct (39.0-53.0) % MCV (80.0-100.0) fL MCH (25.0-35.0) pg MCHC (31.0-37.0) g/dL RDW (11.5-15.5) % Plt Count (150-450) k/uL MPV Neutrophils % % Lymphocytes % % Monocytes % % Eosinophils % % Basophils % % Neutrophils # (1.3-7.7) k/uL Lymphocytes # (1.0-4.8) k/uL Monocytes # (0-1.0) k/uL Eosinophils # (0-0.7) k/uL Basophils # (0-0.2) k/uL Hypochromasia Anisocytosis Microcytosis PT (9.0-12.0) sec INR (<1.2) APTT (22.0-30.0) sec Sodium (137-145) mmol/L Potassium (3.5-5.1) mmol/L Chloride (98-107) mmol/L Carbon Dioxide (22-30) mmol/L Anion Gap mmol/L BUN (9-20) mg/dL Creatinine (0.66-1.25) mg/dL Est GFR (CKD-EPI)AfAm (>60 ml/min/1.73 sqM) Est GFR (CKD-EPI)NonAf (>60 ml/min/1.73 sqM) Glucose (74-99) mg/dL POC Glucose (mg/dL) 179 H (70-110) mg/dL POC Glu Containers Sales Representative ID Lydia Johnson Calcium (8.4-10.2) mg/dL Total Bilirubin (0.2-1.3) mg/dL AST (17-59) U/L ALT (4-49) U/L Alkaline Phosphatase (38-126) U/L Troponin I <0.012 (0.000-0.034) ng/mL Total Protein (6.3-8.2) g/dL Albumin (3.5-5.0) g/dL Influenza Type A (PCR) Not Detected (Not Detectd) Influenza Type B (PCR) Not Detected (Not Detectd) RSV (PCR) Not Detected (Not Detectd) SARS-CoV-2 (PCR) Not Detected (Not Detectd) Disposition <Krishan Argueta - Last Filed: 10/10/21 22:54> Is patient prescribed a controlled substance at d/c from ED?: No <Artemio Mason - Last Filed: 10/11/21 00:20> Clinical Impression: Hyperglycemia Disposition: ADMITTED IP TO THIS HOSP Condition: Good Instructions (If sedation given, give patient instructions): Diabetic Hyperglycemia (ED) Referrals: Helen Chen MD [Primary Care Provider] - 1-2 days
[2021-10-10 23:07] LABS: Glucose,Whole Blood 179 mg/dL (70-110)
[2021-10-11 00:22] VITALS: BP 138/77; PULSE 95
== END 2021-10-11 00:48 | disposition other institution (70) ==
LOC: EC 18:14
DX: E11.65 Type 2 diabetes mellitus with hyperglycemia (principal); K21.9 Gastro-esophageal reflux disease without esophagitis; E78.5 Hyperlipidemia, unspecified; M19.90 Unspecified osteoarthritis, unspecified site; F32.A Depression, unspecified; Z79.84 Long term (current) use of oral hypoglycemic drugs; Z79.4 Long term (current) use of insulin; Z79.899 Other long term (current) drug therapy; Z20.822 Contact with and (suspected) exposure to COVID-19
CPT/HCPCS: 36415; 71046; 80053; 84484; 85025; 85610; 85730; 87636; 93005; 99285

== ENCOUNTER 2021-11-24 21:09 | Inpatient (IN) | payer OTHER ==
[2021-11-24] MEDS ORDERED: SODIUM CHLORIDE 0.9% 500 ML 500 ML IV ONE (23:29)
--- NOTE | 2021-11-25 00:02 | XR ---
EXAMINATION TYPE: XR chest 1V portable DATE OF EXAM: 11/24/2021 COMPARISON: 10/10/2021 HISTORY: Short of breath TECHNIQUE: FINDINGS: Heart is normal. Lungs are clear. Diaphragm is normal. Bony thorax is intact. There are sharlene st leads. IMPRESSION: Normal chest. No change.
[2021-11-25 00:31] LABS: Basophils # (A) 0.1 k/uL (0-0.2); Basophils % (A) 1 %; Eosinophils # (A) 0.1 k/uL (0-0.7); Eosinophils % (A) 1 %; Hypochromasia Marked; Lymphocytes # (A) 1.2 k/uL (1.0-4.8); Lymphocytes % (A) 13 %; MCH 19.7 pg (25.0-35.0); MCHC 28.2 g/dL (31.0-37.0); MCV 69.7 fL (80.0-100.0); Mean Platelet Volume 6.7; Microcytosis Moderate; Monocytes # (A) 0.5 k/uL (0-1.0); Monocytes % (A) 5 %; Neutrophils % (A) 79 %; Platelet Count 732 k/uL (150-450); RDW 15.6 % (11.5-15.5); WBC 8.9 k/uL (3.8-10.6)
[2021-11-25 00:33] LABS: HGB 8.5 gm/dL (13.0-17.5)
--- NOTE | 2021-11-25 00:43 | ED ---
SOB HPI - General Chief Complaint: Shortness of Breath Stated Complaint: SOB Time Seen by Provider: 11/24/21 23:21 Source: patient, RN notes reviewed Mode of arrival: ambulatory Limitations: no limitations - History of Present Illness Initial Comments: This is a pleasant 61-year-old male with a history of diabetes mellitus, acid reflux, hyperlipidemia, seizure disorder, and osteoarthritis. states that he has had chest discomfort and shortness of breath which he has developed over the past 3 days. He states the pressure seems to be in the center of her chest and is essentially constant. No alleviating or exacerbating factors. No radiation. No headache, no fever or chills, no changes in vision or hearing, no sore throat or difficulty with speech, no neck pain,, no abdominal pain, no nausea or vomiting, no changes in urination or bowel movements, no numbness or tingling, no extremity pain, no skin rashes or lesions. Past medical, surgical, social, and family history reviewed. MD Complaint: shortness of breath, chest pain - Related Data Home Medications Medication Instructions Recorded Confirmed Omeprazole 20 mg PO AC-BID 06/13/17 10/10/21 Pioglitazone HCl [Actos] 15 mg PO DAILY 10/03/18 10/10/21 Diphenox-Atrop 2.5-0.025 mg 1 tab PO BID PRN 11/17/19 10/10/21 [Lomotil] Rosuvastatin [Crestor] 10 mg PO HS 05/15/20 10/10/21 Latanoprost/Pf [Latanoprost 0.005% 1 drop BOTH EYES HS 06/15/21 10/10/21 Eye Drop] Phenytoin Sodium Extended 60 mg PO BID 07/14/21 10/10/21 [Dilantin] Acetaminophen Tab [Tylenol] 325 mg PO Q6HR PRN 07/17/21 10/10/21 Acetaminophen-Codeine 300-30mg 1 tab PO TID PRN 07/17/21 10/10/21 [Tylenol w/codeine #3] Ketorolac 0.5% Ophth Soln [Acular 1 drops LEFT EYE BID 08/30/21 10/10/21 0.5%] Loteprednol Etabonate [Inveltys] 1 drop LEFT EYE BID 08/30/21 10/10/21 Mupirocin 2% Oint [Bactroban 2% 1 applic TOPICAL DAILY 09/23/21 10/10/21 Oint] Previous Rx's Medication Instructions Recorded Ondansetron Odt [Zofran ODT] 4 mg PO Q8HR PRN #12 tab 07/29/21 Insulin Glargine [Lantus Vial] 20 unit SQ DAILY #10 ml 09/29/21 Insulin Lispro [Admelog] 5 units SQ TID #10 ml 09/29/21 Allergies Allergy/AdvReac Type Severity Reaction Status Date / Time No Known Allergies Allergy Verified 11/24/21 21:55 Review of Systems ROS Statement: Those systems with pertinent positive or pertinent negative responses have been documented in the HPI. ROS Other: All systems not noted in ROS Statement are negative. 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 History of Any Multi-Drug Resistant Organisms: MRSA Date of last positivie culture/infection: 12/29/19 MDRO Source:: Left Leg Past Surgical History: Orthopedic Surgery, Tonsillectomy Additional Past Surgical History / Comment(s): 01/23/20 angiogram L leg, 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, colonoscopy, L eye surgery for strabismus. Past Anesthesia/Blood Transfusion Reactions: No Reported Reaction Past Psychological History: Depression Smoking Status: Never smoker Past Alcohol Use History: None Reported Past Drug Use History: None Reported - Past Family History Father Family Medical History: Myocardial Infarction (VT) Additional Family Medical History / Comment(s): Father of a VT at the age of 57yrs. Mother Family Medical History: Cancer Additional Family Medical History / Comment(s): Mother from cancer at the age of 61 or 62 . Pt cannot recall type of cancer. Sister(s) Family Medical History: Diabetes Mellitus Additional Family Medical History / Comment(s): Sister had DM type 1. She is . General Exam - General Exam Comments Initial Comments: This is somewhat frail appearing 61-year-old male in minimal distress. Patient does not appear to be toxic but does appear to be somewhat ill. Capillary refill is approximately 3 seconds. Patient has moist mucous membranes. There is no mottling. Limitations: no limitations General appearance: alert, in no apparent distress Head exam: Present: atraumatic, normocephalic, normal inspection Eye exam: Present: normal appearance, PERRL, EOMI. Absent: scleral icterus, conjunctival injection, periorbital swelling ENT exam: Present: normal exam, normal oropharynx, mucous membranes moist, normal external ear exam. Absent: mucous membranes dry Neck exam: Present: normal inspection, full ROM. Absent: tenderness, meningismus, lymphadenopathy Respiratory exam: Present: normal lung sounds bilaterally. Absent: respiratory distress, wheezes, rales, rhonchi, stridor Cardiovascular Exam: Present: regular rate, normal rhythm, normal heart sounds. Absent: systolic murmur, diastolic murmur, rubs, gallop, clicks GI/Abdominal exam: Present: soft, normal bowel sounds. Absent: distended, tenderness, guarding, rebound, rigid Extremities exam: Present: normal inspection, full ROM. Absent: tenderness, normal capillary refill (Approximately 3 seconds), pedal edema, joint swelling, calf tenderness Back exam: Present: normal inspection Neurological exam: Present: alert, oriented X3, CN II-XII intact Psychiatric exam: Present: normal affect, normal mood Skin exam: Present: warm, dry, intact, normal color. Absent: rash Course Vital Signs 11/24/21 11/25/21 11/25/21 21:52 00:00 01:41 Temperature 98.2 F Pulse Rate 70 65 67 Respiratory 20 16 Rate Blood Pressure 88/53 128/83 O2 Sat by Pulse 99 99 99 Oximetry 11/25/21 02:41 Temperature Pulse Rate 67 Respiratory 18 Rate Blood Pressure O2 Sat by Pulse 100 Oximetry - Reevaluation(s) Reevaluation #1: 11/25/21 01:09 Patient's blood sugar came back extremely elevated. Patient's blood pressure has normalized after the initial fluid bolus. Reevaluation #2: 11/25/21 02:08 Patient had nausea after having a COVID-19 test. Patient's corrected sodium was 134. Acetone was positive. An and Was normal. Awaiting venous blood gas. 09/19/22 02:08 The refill less than 2 seconds. No evidence of mottling. 11/25/21 02:09 Hemoccult was negative. - Consultations Consultation #1: Currently awaiting callback from the patient's admitting physician. Medical Decision Making - Medical Decision Making Noted to be mildly hypotensive on initial vital signs. Fluid bolus ordered. patient's hemoglobin was 8.5. This is a drop from 10.3 on October 10. Medic at 30, MCV 69.7, MCH 19.7, MCHC 28.2, RDW 15.6, platelets 732,000. This is indicative of microcytic hypochromic anemia which is chronic for the patient but somewhat lower than his previous. Patient denying any bleeding - Lab Data Result diagrams: 11/24/21 23:56 11/24/21 23:56 Lab Results 11/24/21 11/24/21 11/24/21 Range/Units 01:41 23:56 23:56 WBC 8.9 (3.8-10.6) k/uL RBC 4.30 (4.30-5.90) m/uL Hgb 8.5 L D (13.0-17.5) gm/dL Hct 30.0 L (39.0-53.0) % MCV 69.7 L (80.0-100.0) fL MCH 19.7 L (25.0-35.0) pg MCHC 28.2 L (31.0-37.0) g/dL RDW 15.6 H (11.5-15.5) % Plt Count 732 H (150-450) k/uL MPV 6.7 Neutrophils % 79 % Lymphocytes % 13 % Monocytes % 5 % Eosinophils % 1 % Basophils % 1 % Neutrophils # 7.0 (1.3-7.7) k/uL Lymphocytes # 1.2 (1.0-4.8) k/uL Monocytes # 0.5 (0-1.0) k/uL Eosinophils # 0.1 (0-0.7) k/uL Basophils # 0.1 (0-0.2) k/uL Hypochromasia Marked Microcytosis Moderate PT 9.9 (9.0-12.0) sec INR 0.9 (<1.2) APTT 26.3 (22.0-30.0) sec D-Dimer 0.39 (<0.60) mg/L FEU VBG pH (7.31-7.41) VBG pCO2 (37-51) mmHg VBG HCO3 (24-28) mmol/L Sodium (137-145) mmol/L Potassium (3.5-5.1) mmol/L Chloride (98-107) mmol/L Carbon Dioxide (22-30) mmol/L Anion Gap mmol/L BUN (9-20) mg/dL Creatinine (0.66-1.25) mg/dL Est GFR (CKD-EPI)AfAm (>60 ml/min/1.73 sqM) Est GFR (CKD-EPI)NonAf (>60 ml/min/1.73 sqM) Glucose (74-99) mg/dL POC Glucose (mg/dL) (70-110) mg/dL POC Glu Braille Proofreader ID Plasma Lactic Acid Michael (0.7-2.0) mmol/L Calcium (8.4-10.2) mg/dL Phosphorus (2.5-4.5) mg/dL Magnesium (1.6-2.3) mg/dL Total Bilirubin (0.2-1.3) mg/dL AST (17-59) U/L ALT (4-49) U/L Alkaline Phosphatase (38-126) U/L Troponin I (0.000-0.034) ng/mL NT-Pro-B Natriuret Pep pg/mL Total Protein (6.3-8.2) g/dL Albumin (3.5-5.0) g/dL Urine Color Urine Appearance (Clear) Urine pH (5.0-8.0) Ur Specific [place] (1.001-1.035) Urine Protein (Negative) Urine Glucose (UA) (Negative) Urine Ketones (Negative) Urine Blood (Negative) Urine Nitrite (Negative) Urine Bilirubin (Negative) Urine Urobilinogen (<2.0) mg/dL Ur Leukocyte Esterase (Negative) Stool Occult Blood (Negative) Phenytoin ug/mL Acetone, Qual Positive (Negative) Influenza Type A (PCR) (Not Detectd) Influenza Type B (PCR) (Not Detectd) RSV (PCR) (Not Detectd) SARS-CoV-2 (PCR) (Not Detectd) 11/24/21 11/24/21 11/24/21 Range/Units 23:56 23:56 23:56 WBC (3.8-10.6) k/uL RBC (4.30-5.90) m/uL Hgb (13.0-17.5) gm/dL Hct (39.0-53.0) % MCV (80.0-100.0) fL MCH (25.0-35.0) pg MCHC (31.0-37.0) g/dL RDW (11.5-15.5) % Plt Count (150-450) k/uL MPV Neutrophils % % Lymphocytes % % Monocytes % % Eosinophils % % Basophils % % Neutrophils # (1.3-7.7) k/uL Lymphocytes # (1.0-4.8) k/uL Monocytes # (0-1.0) k/uL Eosinophils # (0-0.7) k/uL Basophils # (0-0.2) k/uL Hypochromasia Microcytosis PT (9.0-12.0) sec INR (<1.2) APTT (22.0-30.0) sec D-Dimer (<0.60) mg/L FEU VBG pH (7.31-7.41) VBG pCO2 (37-51) mmHg VBG HCO3 (24-28) mmol/L Sodium 126 L (137-145) mmol/L Potassium 4.9 (3.5-5.1) mmol/L Chloride 83 L (98-107) mmol/L Carbon Dioxide 30 (22-30) mmol/L Anion Gap 13 mmol/L BUN 18 (9-20) mg/dL Creatinine 0.93 (0.66-1.25) mg/dL Est GFR (CKD-EPI)AfAm >90 (>60 ml/min/1.73 sqM) Est GFR (CKD-EPI)NonAf 89 (>60 ml/min/1.73 sqM) Glucose 616 H* (74-99) mg/dL POC Glucose (mg/dL) (70-110) mg/dL POC Glu Braille Proofreader ID Plasma Lactic Acid Michael 1.2 (0.7-2.0) mmol/L Calcium 9.3 (8.4-10.2) mg/dL Phosphorus 4.7 H (2.5-4.5) mg/dL Magnesium 2.0 (1.6-2.3) mg/dL Total Bilirubin 0.2 (0.2-1.3) mg/dL AST 13 L (17-59) U/L ALT 9 (4-49) U/L Alkaline Phosphatase 108 (38-126) U/L Troponin I <0.012 (0.000-0.034) ng/mL NT-Pro-B Natriuret Pep pg/mL Total Protein 7.1 (6.3-8.2) g/dL Albumin 3.5 (3.5-5.0) g/dL Urine Color Urine Appearance (Clear) Urine pH (5.0-8.0) Ur Specific [place] (1.001-1.035) Urine Protein (Negative) Urine Glucose (UA) (Negative) Urine Ketones (Negative) Urine Blood (Negative) Urine Nitrite (Negative) Urine Bilirubin (Negative) Urine Urobilinogen (<2.0) mg/dL Ur Leukocyte Esterase (Negative) Stool Occult Blood (Negative) Phenytoin <3.0 ug/mL Acetone, Qual (Negative) Influenza Type A (PCR) (Not Detectd) Influenza Type B (PCR) (Not Detectd) RSV (PCR) (Not Detectd) SARS-CoV-2 (PCR) (Not Detectd) 11/24/21 11/24/21 11/25/21 Range/Units 23:56 23:58 01:23 WBC (3.8-10.6) k/uL RBC (4.30-5.90) m/uL Hgb (13.0-17.5) gm/dL Hct (39.0-53.0) % MCV (80.0-100.0) fL MCH (25.0-35.0) pg MCHC (31.0-37.0) g/dL RDW (11.5-15.5) % Plt Count (150-450) k/uL MPV Neutrophils % % Lymphocytes % % Monocytes % % Eosinophils % % Basophils % % Neutrophils # (1.3-7.7) k/uL Lymphocytes # (1.0-4.8) k/uL Monocytes # (0-1.0) k/uL Eosinophils # (0-0.7) k/uL Basophils # (0-0.2) k/uL Hypochromasia Microcytosis PT (9.0-12.0) sec INR (<1.2) APTT (22.0-30.0) sec D-Dimer (<0.60) mg/L FEU VBG pH (7.31-7.41) VBG pCO2 (37-51) mmHg VBG HCO3 (24-28) mmol/L Sodium (137-145) mmol/L Potassium (3.5-5.1) mmol/L Chloride (98-107) mmol/L Carbon Dioxide (22-30) mmol/L Anion Gap mmol/L BUN (9-20) mg/dL Creatinine (0.66-1.25) mg/dL Est GFR (CKD-EPI)AfAm (>60 ml/min/1.73 sqM) Est GFR (CKD-EPI)NonAf (>60 ml/min/1.73 sqM) Glucose (74-99) mg/dL POC Glucose (mg/dL) (70-110) mg/dL POC Glu Braille Proofreader ID Plasma Lactic Acid Michael (0.7-2.0) mmol/L Calcium (8.4-10.2) mg/dL Phosphorus (2.5-4.5) mg/dL Magnesium (1.6-2.3) mg/dL Total Bilirubin (0.2-1.3) mg/dL AST (17-59) U/L ALT (4-49) U/L Alkaline Phosphatase (38-126) U/L Troponin I (0.000-0.034) ng/mL NT-Pro-B Natriuret Pep 66 pg/mL Total Protein (6.3-8.2) g/dL Albumin (3.5-5.0) g/dL Urine Color Colorless Urine Appearance Clear (Clear) Urine pH 6.0 (5.0-8.0) Ur Specific [place] 1.027 (1.001-1.035) Urine Protein Negative (Negative) Urine Glucose (UA) 4+ H (Negative) Urine Ketones Trace H (Negative) Urine Blood Negative (Negative) Urine Nitrite Negative (Negative) Urine Bilirubin Negative (Negative) Urine Urobilinogen <2.0 (<2.0) mg/dL Ur Leukocyte Esterase Negative (Negative) Stool Occult Blood Negative (Negative) Phenytoin ug/mL Acetone, Qual (Negative) Influenza Type A (PCR) (Not Detectd) Influenza Type B (PCR) (Not Detectd) RSV (PCR) (Not Detectd) SARS-CoV-2 (PCR) (Not Detectd) 11/25/21 11/25/21 11/25/21 Range/Units 01:40 01:40 03:05 WBC (3.8-10.6) k/uL RBC (4.30-5.90) m/uL Hgb (13.0-17.5) gm/dL Hct (39.0-53.0) % MCV (80.0-100.0) fL MCH (25.0-35.0) pg MCHC (31.0-37.0) g/dL RDW (11.5-15.5) % Plt Count (150-450) k/uL MPV Neutrophils % % Lymphocytes % % Monocytes % % Eosinophils % % Basophils % % Neutrophils # (1.3-7.7) k/uL Lymphocytes # (1.0-4.8) k/uL Monocytes # (0-1.0) k/uL Eosinophils # (0-0.7) k/uL Basophils # (0-0.2) k/uL Hypochromasia Microcytosis PT (9.0-12.0) sec INR (<1.2) APTT (22.0-30.0) sec D-Dimer (<0.60) mg/L FEU VBG pH 7.44 H (7.31-7.41) VBG pCO2 46 (37-51) mmHg VBG HCO3 31 H (24-28) mmol/L Sodium (137-145) mmol/L Potassium (3.5-5.1) mmol/L Chloride (98-107) mmol/L Carbon Dioxide (22-30) mmol/L Anion Gap mmol/L BUN (9-20) mg/dL Creatinine (0.66-1.25) mg/dL Est GFR (CKD-EPI)AfAm (>60 ml/min/1.73 sqM) Est GFR (CKD-EPI)NonAf (>60 ml/min/1.73 sqM) Glucose (74-99) mg/dL POC Glucose (mg/dL) 503 H (70-110) mg/dL POC Glu Braille Proofreader ID Inés Ledezma Plasma Lactic Acid Michael (0.7-2.0) mmol/L Calcium (8.4-10.2) mg/dL Phosphorus (2.5-4.5) mg/dL Magnesium (1.6-2.3) mg/dL Total Bilirubin (0.2-1.3) mg/dL AST (17-59) U/L ALT (4-49) U/L Alkaline Phosphatase (38-126) U/L Troponin I (0.000-0.034) ng/mL NT-Pro-B Natriuret Pep pg/mL Total Protein (6.3-8.2) g/dL Albumin (3.5-5.0) g/dL Urine Color Urine Appearance (Clear) Urine pH (5.0-8.0) Ur Specific [place] (1.001-1.035) Urine Protein (Negative) Urine Glucose (UA) (Negative) Urine Ketones (Negative) Urine Blood (Negative) Urine Nitrite (Negative) Urine Bilirubin (Negative) Urine Urobilinogen (<2.0) mg/dL Ur Leukocyte Esterase (Negative) Stool Occult Blood (Negative) Phenytoin ug/mL Acetone, Qual (Negative) Influenza Type A (PCR) Not Detected (Not Detectd) Influenza Type B (PCR) Not Detected (Not Detectd) RSV (PCR) Not Detected (Not Detectd) SARS-CoV-2 (PCR) Not Detected (Not Detectd) Disposition Clinical Impression: Chest pain, atypical, Uncontrolled diabetes mellitus, Microcytic hypochromic anemia, Ketosis due to diabetes, Subtherapeutic phenytoin level Narrative: Chronic anemia Disposition: ADMITTED IP TO THIS HOSP Condition: Fair Is patient prescribed a controlled substance at d/c from ED?: No Referrals: Helen Chen MD [Primary Care Provider] - 1-2 days Time of Disposition: 01:11 Decision to Admit Reason: Admit from EC Decision Time: 01:11
[2021-11-25 00:50] LABS: ALT 9 U/L (4-49); AST 13 U/L (17-59); African American GFR (CKD) >90 (>60 ml/min/1.73 sqM); Albumin 3.5 g/dL (3.5-5.0); Alkaline Phosphatase 108 U/L (38-126); Anion Gap 13 mmol/L; Blood Urea Nitrogen 18 mg/dL (9-20); Calcium 9.3 mg/dL (8.4-10.2); Carbon Dioxide 30 mmol/L (22-30); Chloride 83 mmol/L (98-107); Non-African American GFR(CKD) 89 (>60 ml/min/1.73 sqM); Phenytoin (Dilantin) <3.0 ug/mL; Phosphorus 4.7 mg/dL (2.5-4.5); Potassium 4.9 mmol/L (3.5-5.1); Sodium 126 mmol/L (137-145); Total Bilirubin 0.2 mg/dL (0.2-1.3); Total Protein 7.1 g/dL (6.3-8.2)
[2021-11-25 00:59] LABS: INR 0.9 (<1.2); Partial Thromboplastin Time 26.3 sec (22.0-30.0); Prothrombin Time 9.9 sec (9.0-12.0)
[2021-11-25 01:07] LABS: Glucose 616 mg/dL (74-99)
[2021-11-25] MEDS ORDERED: SODIUM CHLORIDE 0.9% 1,000 ML IV ONE (01:10)
[2021-11-25 01:31] LABS: Appearance,Urine Clear (Clear); Bilirubin,Urine Negative (Negative); Blood,Urine Negative (Negative); Color,Urine Colorless; Glucose,Urine (UA) 4+ (Negative); Ketones,Urine Trace (Negative); Leukocyte Esterase,Urine Negative (Negative); Nitrite,Urine Negative (Negative); Protein,Urine Negative (Negative); Specific Gravity,Urine 1.027 (1.001-1.035); Urobilinogen,Urine <2.0 mg/dL (<2.0)
[2021-11-25] MEDS ORDERED: ONDANSETRON 4 MG/2 ML VIAL IVP STA (01:48)
[2021-11-25] MEDS ORDERED: SODIUM CHLORIDE 0.9% IVPB ONE ×2 (02:00)
[2021-11-25] MEDS ORDERED: PHENYTOIN SODIUM IVPB ONE ×2 (02:00)
[2021-11-25 02:39] LABS: VBG PH 7.44 (7.31-7.41)
[2021-11-25] MEDS ORDERED: NALOXONE 0.4 MG/ML 1 ML VIAL IV PRN ×2 (03:04→05:05)
[2021-11-25] MEDS ORDERED: INSULIN REGULAR 100 UNIT/ML VIAL (IV) IV ONE (03:04)
[2021-11-25 03:06] LABS: Glucose,Whole Blood 503 mg/dL (70-110)
[2021-11-25] MEDS ORDERED: DEXTROSE 50% SYRINGE 50 ML IVP PRN ×2 (03:07)
[2021-11-25] MEDS ORDERED: ASPIRIN 81 MG PO STA (03:12)
[2021-11-25 05:08] LABS: Glucose,Whole Blood 351 mg/dL (70-110)
[2021-11-25] MEDS: SODIUM CHLORIDE 0.9% 1,000 ML IV SCH ×2 (07:24→11:56)
[2021-11-25] MEDS ORDERED: MORPHINE SULFATE 4 MG/ML SYRINGE IV PRN (08:00)
[2021-11-25 08:08] LABS: Glucose,Whole Blood 238 mg/dL (70-110)
[2021-11-25] MEDS: NON FORMULARY DRUG (Phenytoin Sodium Extended [Dilantin] 30 MG Capsule) PO SCH ×2 (08:29→22:07)
[2021-11-25] MEDS: INSULIN ASPART (NovoLOG) 100 UNIT/ML VIAL SQ SCH ×4 (08:37→22:16)
[2021-11-25] MEDS: ONDANSETRON 4 MG/2 ML VIAL IVP PRN ×2 (08:38→22:16)
[2021-11-25] MEDS ORDERED: PANTOPRAZOLE 40 MG/10 ML VIAL IV SCH (09:00)
[2021-11-25] MEDS: prednisoLONE ACETATE 1% OPHTH DROPS 5 ML BTL LEFT EYE SCH ×2 (09:34→22:18)
[2021-11-25 11:38] LABS: Glucose,Whole Blood 409 mg/dL (70-110)
[2021-11-25] MEDS ORDERED: ACETAMINOPHEN TAB 325 MG TAB PO PRN (12:01)
[2021-11-25] MEDS ORDERED: Acetaminophen-Codeine 300-30mg TAB PO PRN (12:01)
[2021-11-25] MEDS: PHENYTOIN SODIUM EXTENDED 100 MG CAP PO SCH ×2 (12:19→22:16)
[2021-11-25] MEDS: INSULIN DETEMIR (LEVEMIR) 100 UNIT/ML SYR SQ SCH (12:19)
--- NOTE | 2021-11-25 13:12 | P.CRDCN ---
History of Present Illness History of present illness: HISTORY OF PRESENT ILLNESS: This is a 61-year-old with a past medical history significant for hypertension and diabetes. 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 We have been asked to see the patient in consultation for chest pain. Patient examined at the bedside. Patient states he presented to the hospital for chief complaint of shortness of breath that started Thursday night. He states his shortness of breath is at rest and also with exertion. He reports feeling a burning sensation in the middle of his chest. He reports nausea and vomiting. He denied any radiation of the pain. He states the pain goes away on its own and he does not require medicat ions to resolve his pain. Patient reports he had an episode of chest pain this morning that went away after drinking coffee. The patient was found to have a blood sugar in the 600s upon admission and also anemia with a hemoglobin in the eights. * EKG reveals sinus mechanism with early repolarization noted * Chest xray negative for acute process * Laboratory data: WBC 8.9. Hemoglobin 8.5. Platelet count 732. Sodium 126. Potassium 4.9. Troponin negative 3. ProBNP 66. * Current home cardiac medications include Crestor 10 mg at night * Most recent echocardiogram obtained in July 2021 revealed normal LV systolic function * Patient underwent to be having stress test in October 2020 which was negative for ischemia REVIEW OF SYSTEMS: At the time of my exam: CONSTITUTIONAL: Denies fever or chills. HEENT: Denies blurred vision, vision changes, or eye pain. Denies hemoptysis CARDIOVASCULAR: Denies chest pain. Denies orthopnea. Denies PND. Denies palpitations RESPIRATORY: Denies shortness of breath. GASTROINTESTINAL: Denies abdominal pain. Denies nausea or vomiting. HEMATOLOGIC: Denies bleeding disorders. GENITOURINARY: Denies any blood in urine. SKIN: Denies pruitis. Denies rash. PHYSICAL EXAM: VITAL SIGNS: Reviewed. GENERAL: Well-developed in no acute distress. HEENT: Head is normocephalic. Pupils are equal, round. Sclerae anicteric. Mucous membranes of the mouth are moist. Neck supple. No JVD or thyromegaly LUNGS: Respirations even and unlabored. Lungs essentially clear to auscultation bilaterally. HEART: Regular rate and rhythm. S1 and S2 heard. ABDOMEN: Soft. Nondistended. Nontender. EXTREMITIES: Normal range of motion. No clubbing or cyanosis. Peripheral pulses intact. No lower extremity edema NEUROLOGIC: Awake and alert. Oriented x 3. ASSESSMENT: Shortness of breath Anemia Chest pain, atypical, troponin negative 3 Hypertension Diabetes, severely uncontrolled on admission with blood sugars in the 600s PLAN: No need to repeat echocardiogram as this was performed in July 2021 An acute coronary event has been ruled out Resume home cardiac medications Recommend workup for anemia Recommend tighter blood sugar control on an outpatient basis. Patient verbalized understanding Further recommendations pending patient course Nurse practitioner note has been reviewed by physician. Signing provider agrees with the documented findings, assessment, and plan of care. Past Medical History Past Medical History: Diabetes Mellitus, Diabetes Mellitus, GERD/Reflux, Hyperlipidemia, Osteoarthritis (OA), Seizure Disorder Additional Past Medical History / Comment(s): IDDM type 1 per pt, bilateral feet neuropathy, pt states current wounds to bilateral feet/goes to 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 History of Any Multi-Drug Resistant Organisms: MRSA Date of last positivie culture/infection: 12/29/19 MDRO Source:: Left Leg Past Surgical History: Orthopedic Surgery, Tonsillectomy Additional Past Surgical History / Comment(s): 01/23/20 angiogram L leg, 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, colonoscopy, L eye surgery for strabismus. Past Anesthesia/Blood Transfusion Reactions: No Reported Reaction Past Psychological History: Depression Smoking Status: Never smoker Past Alcohol Use History: None Reported Past Drug Use History: None Reported - Past Family History Father Family Medical History: Myocardial Infarction (MT) Additional Family Medical History / Comment(s): Father of a MT at the age of 57yrs. Mother Family Medical History: Cancer Additional Family Medical History / Comment(s): Mother from cancer at the age of 61 or 62 . Pt cannot recall type of cancer. Sister(s) Family Medical History: Diabetes Mellitus Additional Family Medical History / Comment(s): Sister had DM type 1. She is . Medications and Allergies Home Medications Medication Instructions Recorded Confirmed Type Omeprazole 20 mg PO AC-BID 06/13/17 11/25/21 History Pioglitazone HCl [Actos] 15 mg PO DAILY 10/03/18 11/25/21 History Diphenox-Atrop 2.5-0.025 mg 1 tab PO BID PRN 11/17/19 11/25/21 History [Lomotil] Rosuvastatin [Crestor] 10 mg PO HS 05/15/20 11/25/21 History Latanoprost/Pf [Latanoprost 0.005% 1 drop BOTH EYES HS 06/15/21 11/25/21 History Eye Drop] Phenytoin Sodium Extended 60 mg PO BID 07/14/21 11/25/21 History [Dilantin] Acetaminophen Tab [Tylenol] 325 mg PO Q6HR PRN 07/17/21 11/25/21 History Acetaminophen-Codeine 300-30mg 1 tab PO TID PRN 07/17/21 11/25/21 History [Tylenol w/codeine #3] Ondansetron Odt [Zofran ODT] 4 mg PO Q8HR PRN #12 tab 07/29/21 11/25/21 Rx Ketorolac 0.5% Ophth Soln [Acular 1 drops LEFT EYE BID 08/30/21 11/25/21 History 0.5%] Mupirocin 2% Oint [Bactroban 2% 1 applic TOPICAL DAILY PRN 09/23/21 11/25/21 History Oint] Insulin Glargine [Lantus Vial] 50 unit SQ DAILY 11/25/21 11/25/21 History Insulin Lispro [Admelog] See Protocol SQ AC-TID 11/25/21 11/25/21 History Triamcinolone 0.5% Cream [Kenalog 1 applic TOPICAL DAILY PRN 11/25/21 11/25/21 History 0.5% Cream] Allergies Allergy/AdvReac Type Severity Reaction Status Date / Time No Known Allergies Allergy Verified 11/25/21 06:21 Physical Exam Vitals: Vital Signs Temp Pulse Pulse Resp BP BP Pulse Ox 11/25/21 07:59 98.0 F 67 16 103/52 97 11/25/21 05:22 101/62 100 11/25/21 05:21 16 11/25/21 05:00 16 11/25/21 04:21 70 166/91 99 11/25/21 02:41 67 18 100 11/25/21 01:41 67 16 128/83 99 11/25/21 00:00 65 16 99 11/24/21 21:52 98.2 F 70 20 88/53 99 FiO2 11/25/21 07:59 11/25/21 05:22 11/25/21 05:21 11/25/21 05:00 11/25/21 04:21 11/25/21 02:41 11/25/21 01:41 99 11/25/21 00:00 11/24/21 21:52 Intake and Output 11/24/21 11/25/21 11/25/21 22:59 06:59 14:59 Other: Weight 43.091 kg Results 11/24/21 23:56 11/24/21 23:56 Cardiac Enzymes 11/24/21 11/24/21 11/25/21 Range/Units 23:56 23:56 07:11 AST 13 L (17-59) U/L Troponin I <0.012 <0.012 (0.000-0.034) ng/mL Coagulation 11/24/21 Range/Units 23:56 PT 9.9 (9.0-12.0) sec APTT 26.3 (22.0-30.0) sec CBC 11/24/21 Range/Units 23:56 WBC 8.9 (3.8-10.6) k/uL RBC 4.30 (4.30-5.90) m/uL Hgb 8.5 L D (13.0-17.5) gm/dL Hct 30.0 L (39.0-53.0) % Plt Count 732 H (150-450) k/uL Comprehensive Metabolic Panel 11/24/21 Range/Units 23:56 Sodium 126 L (137-145) mmol/L Potassium 4.9 (3.5-5.1) mmol/L Chloride 83 L (98-107) mmol/L Carbon Dioxide 30 (22-30) mmol/L BUN 18 (9-20) mg/dL Creatinine 0.93 (0.66-1.25) mg/dL Glucose 616 H* (74-99) mg/dL Calcium 9.3 (8.4-10.2) mg/dL AST 13 L (17-59) U/L ALT 9 (4-49) U/L Alkaline Phosphatase 108 (38-126) U/L Total Protein 7.1 (6.3-8.2) g/dL Albumin 3.5 (3.5-5.0) g/dL Current Medications Generic Name Dose Route Start Last Admin Trade Name Freq PRN Reason Stop Dose Admin Atorvastatin Calcium 20 mg 11/25/21 21:00 Atorvastatin 20 Mg Tab PO HS ERIN Dextrose/Water 25 ml 11/25/21 03:07 Dextrose 50% Syringe 50 Ml IVP PER PROTOCOL PRN Hypoglycemia Protocol Dextrose/Water 50 ml 11/25/21 03:07 Dextrose 50% Syringe 50 Ml IVP PER PROTOCOL PRN Hypoglycemia Protocol Sodium Chloride 1,000 mls @ 75 mls/hr 11/25/21 03:15 11/25/21 07:24 Saline 0.9% IV Not Given .[id number] ERIN Insulin Aspart 0 unit 11/25/21 07:30 11/25/21 08:37 Insulin Aspart (Novolog) 100 Unit/Ml Vial SQ 2 unit ACHS ERIN Administration Protocol Latanoprost 1 drops 11/25/21 21:00 Latanoprost 0.005% Ophth Drops 2.5 Ml Btl BOTH EYES HS ERIN Morphine Sulfate 4 mg 11/25/21 08:00 Morphine Sulfate 4 Mg/Ml Syringe IV Q4HR PRN Severe Pain (Scale 7 to 10) Naloxone HCl 0.2 mg 11/25/21 03:04 Naloxone 0.4 Mg/Ml 1 Ml Vial IV Q2M PRN Opioid Reversal Naloxone HCl 0.2 mg 11/25/21 05:05 Naloxone 0.4 Mg/Ml 1 Ml Vial IV Q2M PRN Opioid Reversal Non-Formulary Medication 60 mg 11/25/21 09:00 11/25/21 08:29 Phenytoin Sodium Extended [Dilantin] PO Not Given BID ERIN Ondansetron HCl 4 mg 11/25/21 03:04 11/25/21 08:38 Ondansetron 4 Mg/2 Ml Vial IVP 4 mg Q8HR PRN Administration Nausea And Vomiting Pantoprazole Sodium 40 mg 11/25/21 09:00 11/25/21 08:37 Pantoprazole 40 Mg/10 Ml Vial IV 40 mg DAILY ERIN Administration Prednisolone Acetate 1 drops 11/25/21 09:00 Prednisolone Acetate 1% Ophth Drops 5 Ml Btl LEFT EYE BID ERIN Intake and Output 11/24/21 11/25/21 11/25/21 22:59 06:59 14:59 Other: Weight 43.091 kg 11/24/21 23:56 11/24/21 23:56
[2021-11-25 16:18] VITALS: BMI 17.9
[2021-11-25 16:43] LABS: Glucose,Whole Blood 170 mg/dL (70-110)
--- NOTE | 2021-11-25 18:56 | P.HPIM ---
History of Present Illness H&P Date: 11/25/21 Pietro Ryder, is a 61 year old male who presented to [facility] emergency room with a chief complaint of chest discomfort and shortness of breath that he developed over the last 3 days He was evaluated in the emergency room vital examination on presentation revealed a temperature of 98.2 pulse 70 respiration 20 blood pressure 88/53 pulse ox 99% on room air Laboratory data revealed a white blood count of 8.9 hemoglobin 8.5 platelet count 732 sodium 126 potassium 4.9 chloride 83 BUN 18 creatinine 0.93 glucose level 616 Testing in the emergency room revealed chest x-ray done in the emergency room did not reveal any acute abnormality, EKG revealed sinus rhythm with early repo larization Patient was admitted to medical floor for further evaluation and treatment Past Medical History Past Medical History: Diabetes Mellitus, Diabetes Mellitus, GERD/Reflux, Hyperlipidemia, Osteoarthritis (OA), Seizure Disorder Additional Past Medical History / Comment(s): IDDM type 1 per pt, bilateral feet neuropathy, pt states current wounds to bilateral feet/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 History of Any Multi-Drug Resistant Organisms: MRSA Date of last positivie culture/infection: 12/29/19 MDRO Source:: Left Leg Past Surgical History: Orthopedic Surgery, Tonsillectomy Additional Past Surgical History / Comment(s): 01/23/20 angiogram L leg, 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, colonoscopy, L eye surgery for strabis mus. Past Anesthesia/Blood Transfusion Reactions: No Reported Reaction Past Psychological History: Depression Smoking Status: Never smoker Past Alcohol Use History: None Reported Past Drug Use History: None Reported - Past Family History Father Family Medical History: Myocardial Infarction (NM) Additional Family Medical History / Comment(s): Father of a NM at the age of 57yrs. Mother Family Medical History: Cancer Additional Family Medical History / Comment(s): Mother from cancer at the age of 61 or 62 . Pt cannot recall type of cancer. Sister(s) Family Medical History: Diabetes Mellitus Additional Family Medical History / Comment(s): Sister had DM type 1. She is . Medications and Allergies Home Medications Medication Instructions Recorded Confirmed Type Omeprazole 20 mg PO AC-BID 06/13/17 11/25/21 History Pioglitazone HCl [Actos] 15 mg PO DAILY 10/03/18 11/25/21 History Diphenox-Atrop 2.5-0.025 mg 1 tab PO BID PRN 11/17/19 11/25/21 History [Lomotil] Rosuvastatin [Crestor] 10 mg PO HS 05/15/20 11/25/21 History Latanoprost/Pf [Latanoprost 0.005% 1 drop BOTH EYES HS 06/15/21 11/25/21 History Eye Drop] Phenytoin Sodium Extended 60 mg PO BID 07/14/21 11/25/21 History [Dilantin] Acetaminophen Tab [Tylenol] 325 mg PO Q6HR PRN 07/17/21 11/25/21 History Acetaminophen-Codeine 300-30mg 1 tab PO TID PRN 07/17/21 11/25/21 History [Tylenol w/codeine #3] Ondansetron Odt [Zofran ODT] 4 mg PO Q8HR PRN #12 tab 07/29/21 11/25/21 Rx Ketorolac 0.5% Ophth Soln [Acular 1 drops LEFT EYE BID 08/30/21 11/25/21 History 0.5%] Mupirocin 2% Oint [Bactroban 2% 1 applic TOPICAL DAILY PRN 09/23/21 11/25/21 History Oint] Insulin Glargine [Lantus Vial] 50 unit SQ DAILY 11/25/21 11/25/21 History Insulin Lispro [Admelog] See Protocol SQ AC-TID 11/25/21 11/25/21 History Triamcinolone 0.5% Cream [Kenalog 1 applic TOPICAL DAILY PRN 11/25/21 11/25/21 History 0.5% Cream] Allergies Allergy/AdvReac Type Severity Reaction Status Date / Time No Known Allergies Allergy Verified 11/25/21 06:21 Physical Exam Vitals: Vital Signs Temp Pulse Pulse Resp BP BP Pulse Ox 11/25/21 11:00 69 16 92/54 100 11/25/21 08:30 67 11/25/21 07:59 98.0 F 67 16 103/52 97 11/25/21 05:22 101/62 100 11/25/21 05:21 16 11/25/21 05:00 16 11/25/21 04:21 70 166/91 99 11/25/21 02:41 67 18 100 11/25/21 01:41 67 16 128/83 99 11/25/21 00:00 65 16 99 11/24/21 21:52 98.2 F 70 20 88/53 99 FiO2 11/25/21 11:00 11/25/21 08:30 11/25/21 07:59 11/25/21 05:22 11/25/21 05:21 11/25/21 05:00 11/25/21 04:21 11/25/21 02:41 11/25/21 01:41 99 11/25/21 00:00 11/24/21 21:52 Intake and Output 11/24/21 11/25/21 11/25/21 22:59 06:59 14:59 Other: Voiding Method Toilet Weight 43.091 kg 43.091 kg In general patient is alert and oriented x 3 in no distress HEENT head normocephalic and atraumatic Neck is supple no JVD no goiter no lymphadenopathy no carotid bruit Chest examination is clear to auscultation no crackles no wheezing Cardiac exam reveals regular heart sounds S1 and S2 no gallops no murmurs Abdomen is soft nontender no organomegaly with normal bowel sounds Extremity exam reveals no edema no cyanosis or clubbing Neurological examination reveals no gross focal deficits Results CBC & Chem 7: 11/24/21 23:56 11/24/21 23:56 Labs: Abnormal Lab Results - Last 24 Hours (Table) 11/24/21 11/24/21 11/24/21 Range/Units 23:56 23:56 23:58 Hgb 8.5 L D (13.0-17.5) gm/dL Hct 30.0 L (39.0-53.0) % MCV 69.7 L (80.0-100.0) fL MCH 19.7 L (25.0-35.0) pg MCHC 28.2 L (31.0-37.0) g/dL RDW 15.6 H (11.5-15.5) % Plt Count 732 H (150-450) k/uL VBG pH (7.31-7.41) VBG HCO3 (24-28) mmol/L Sodium 126 L (137-145) mmol/L Chloride 83 L (98-107) mmol/L Glucose 616 H* (74-99) mg/dL POC Glucose (mg/dL) (70-110) mg/dL Hemoglobin A1c (0.0-6.0) % Phosphorus 4.7 H (2.5-4.5) mg/dL AST 13 L (17-59) U/L Urine Glucose (UA) 4+ H (Negative) Urine Ketones Trace H (Negative) 11/25/21 11/25/21 11/25/21 Range/Units 01:40 03:05 05:06 Hgb (13.0-17.5) gm/dL Hct (39.0-53.0) % MCV (80.0-100.0) fL MCH (25.0-35.0) pg MCHC (31.0-37.0) g/dL RDW (11.5-15.5) % Plt Count (150-450) k/uL VBG pH 7.44 H (7.31-7.41) VBG HCO3 31 H (24-28) mmol/L Sodium (137-145) mmol/L Chloride (98-107) mmol/L Glucose (74-99) mg/dL POC Glucose (mg/dL) 503 H 351 H (70-110) mg/dL Hemoglobin A1c (0.0-6.0) % Phosphorus (2.5-4.5) mg/dL AST (17-59) U/L Urine Glucose (UA) (Negative) Urine Ketones (Negative) 11/25/21 11/25/21 11/25/21 Range/Units 07:11 08:07 11:37 Hgb (13.0-17.5) gm/dL Hct (39.0-53.0) % MCV (80.0-100.0) fL MCH (25.0-35.0) pg MCHC (31.0-37.0) g/dL RDW (11.5-15.5) % Plt Count (150-450) k/uL VBG pH (7.31-7.41) VBG HCO3 (24-28) mmol/L Sodium (137-145) mmol/L Chloride (98-107) mmol/L Glucose (74-99) mg/dL POC Glucose (mg/dL) 238 H 409 H (70-110) mg/dL Hemoglobin A1c 14.5 H (0.0-6.0) % Phosphorus (2.5-4.5) mg/dL AST (17-59) U/L Urine Glucose (UA) (Negative) Urine Ketones (Negative) Thrombosis Risk Factor Assmnt - Choose All That Apply Any of the Below Risk Factors Present?: No Other Risk Factors: Yes Each Risk Factor Represents 2 Points: Age 61-74 years Other congenital or acquired thrombophilia - If yes, enter type in comment: No Thrombosis Risk Factor Assessment Total Risk Factor Score: 2 Thrombosis Risk Factor Assessment Level: Low Risk Assessment and Plan Plan: Episodes of chest pain and shortness of breath over the last 3 days Anemia with hemoglobin at 8.5 on presentation, this is microcytic anemia with MCV of 69.7 Hyponatremia on presentation Extreme hyperglycemia was a glucose at 616 Underlying history of insulin-dependent diabetes mellitus Underlying history of chronic lower extremity infection was open ulcers followed at the wound care clinic Underlying history of seizure disorder maintained on Dilantin Underlying history of hyperlipidemia At this time patient is admitted to telemetry floor He was started on IV fluids and on insulin Home medications reviewed and reordered Cardiology consultation requested in regard to chest pain Patient counseled in length in regards to taking medications as instructed, he was recently given insulin samples from the office as he stated that he could not afford his medications Workup for anemia initiated
[2021-11-25 20:09] LABS: Glucose,Whole Blood 156 mg/dL (70-110)
[2021-11-25 20:56] LABS: Glucose,Whole Blood 162 mg/dL (70-110)
[2021-11-25] MEDS: ATORVASTATIN 20 MG TAB PO SCH (22:17)
[2021-11-25] MEDS: KETOROLAC 0.5% OPHTH DROPS 5 ML BTL LEFT EYE SCH (22:17)
[2021-11-26 00:12] LABS: Glucose,Whole Blood 60 mg/dL (70-110)
[2021-11-26 00:31] LABS: Glucose,Whole Blood 88 mg/dL (70-110)
[2021-11-26] MEDS: LATANOPROST 0.005% OPHTH DROPS 2.5 ML BTL BOTH EYES SCH ×2 (02:31→20:56)
[2021-11-26 03:09] LABS: % Iron Saturation 2.72 (15.00-50.00)
[2021-11-26 06:25] LABS: Glucose,Whole Blood 126 mg/dL (70-110)
[2021-11-26] MEDS: SODIUM CHLORIDE 0.9% 1,000 ML IV SCH ×2 (06:30→07:53)
[2021-11-26] MEDS: INSULIN ASPART (NovoLOG) 100 UNIT/ML VIAL SQ SCH ×4 (06:30→20:55)
[2021-11-26] MEDS: ONDANSETRON 4 MG/2 ML VIAL IVP PRN ×2 (06:50→17:20)
[2021-11-26] MEDS: INSULIN DETEMIR (LEVEMIR) 100 UNIT/ML SYR SQ SCH ×2 (07:43→08:32)
[2021-11-26] MEDS: NON FORMULARY DRUG (Phenytoin Sodium Extended [Dilantin] 30 MG Capsule) PO SCH ×2 (07:46→20:56)
[2021-11-26] MEDS: PANTOPRAZOLE 40 MG TABLET PO SCH (07:51)
[2021-11-26] MEDS: PHENYTOIN SODIUM EXTENDED 100 MG CAP PO SCH ×2 (07:51→20:55)
[2021-11-26] MEDS: KETOROLAC 0.5% OPHTH DROPS 5 ML BTL LEFT EYE SCH ×2 (07:52→20:56)
[2021-11-26] MEDS: prednisoLONE ACETATE 1% OPHTH DROPS 5 ML BTL LEFT EYE SCH ×2 (07:52→20:56)
[2021-11-26 09:21] LABS: Basophils % (A) 1 %; Eosinophils # (A) 0.2 k/uL (0-0.7); Eosinophils % (A) 2 %; HCT 28.9 % (39.0-53.0); HGB 8.1 gm/dL (13.0-17.5); Hypochromasia Marked; Lymphocytes # (A) 1.7 k/uL (1.0-4.8); Lymphocytes % (A) 20 %; MCH 19.8 pg (25.0-35.0); MCHC 27.8 g/dL (31.0-37.0); MCV 71.3 fL (80.0-100.0); Mean Platelet Volume 6.6; Microcytosis Moderate; Monocytes # (A) 0.5 k/uL (0-1.0); Monocytes % (A) 6 %; Neutrophils # (A) 6.1 k/uL (1.3-7.7); Neutrophils % (A) 70 %; Platelet Count 695 k/uL (150-450); RBC 4.06 m/uL (4.30-5.90); RDW 15.7 % (11.5-15.5); WBC 8.7 k/uL (3.8-10.6)
[2021-11-26 09:32] LABS: ALT 11 U/L (4-49); AST 24 U/L (17-59); African American GFR (CKD) >90 (>60 ml/min/1.73 sqM); Albumin 2.9 g/dL (3.5-5.0); Alkaline Phosphatase 88 U/L (38-126); Anion Gap 9 mmol/L; Blood Urea Nitrogen 17 mg/dL (9-20); Calcium 8.2 mg/dL (8.4-10.2); Carbon Dioxide 23 mmol/L (22-30); Chloride 100 mmol/L (98-107); Glucose 154 mg/dL (74-99); Magnesium 1.8 mg/dL (1.6-2.3); Non-African American GFR(CKD) >90 (>60 ml/min/1.73 sqM); Potassium 4.5 mmol/L (3.5-5.1); Sodium 132 mmol/L (137-145); Total Bilirubin 0.2 mg/dL (0.2-1.3); Total Protein 6.1 g/dL (6.3-8.2)
[2021-11-26 11:48] LABS: Glucose,Whole Blood 209 mg/dL (70-110)
--- NOTE | 2021-11-26 12:31 | P.PN ---
Subjective Progress Note Date: 11/26/21 HISTORY OF PRESENT ILLNESS: This is a 61-year-old with a past medical history significant for hypertension and diabetes. 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 We have been asked to see the patient in consultation for chest pain. Patient examined at the bedside. Patient states he presented to the hospital for chief complaint of shortness of breath that started Thursday night. He states his shortness of breath is at rest and also with exertion. He reports feeling a burning sensation in the middle of his chest. He reports nausea and vomiting. He denied any radiation of the pain. He states the pain goes away on its own and he does not require medications to resolve his pain. Patient reports he had an episode of chest pain this morning that went away after drinking coffee. The patient was found to have a blood sugar in the 600s upon admission and also anemia with a hemoglobin in the eights. * EKG reveals sinus mechanism with early repolarization noted * Chest xray negative for acute process * Laboratory data: WBC 8.9. Hemoglobin 8.5. Platelet count 732. Sodium 126. Potassium 4.9. Troponin negative 3. ProBNP 66. * Current home cardiac medications include Crestor 10 mg at night * Most recent echocardiogram obtained in July 2021 revealed normal LV systolic function * Patient underwent to be having stress test in October 2020 which was negative for ischemia 11/26/2021 Patient examined this morning at the bedside. Patient denies chest pain or pressure. He denies shortness of breath. Denies dizziness or lightheadedness. Vital signs are stable. Hemoglobin today 8.1. General surgery has been consulted for further evaluation. PHYSICAL EXAM: VITAL SIGNS: Reviewed. GENERAL: Well-developed in no acute distress. HEENT: Head is normocephalic. Pupils are equal, round. Sclerae anicteric. Mucous membranes of the mouth are moist. Neck supple. No JVD or thyromegaly LUNGS: Respirations even and unlabored. Lungs essentially clear to auscultation bilaterally. HEART: Regular rate and rhythm. S1 and S2 heard. ABDOMEN: Soft. Nondistended. Nontender. EXTREMITIES: Normal range of motion. No clubbing or cyanosis. Peripheral pulses intact. No lower extremity edema NEUROLOGIC: Awake and alert. Oriented x 3. ASSESSMENT: Shortness of breath Anemia Chest pain, atypical, troponin negative 3 Hypertension Diabetes, severely uncontrolled on admission with blood sugars in the 600s PLAN: Continue current cardiac medications Gen. surgery consulted for evaluation of anemia Patient is currently stable from a cardiac standpoint with no further inpatient recommendations We will sign off. Please reconsult if needed. Nurse practitioner note has been reviewed by physician. Signing provider agrees with the documented findings, assessment, and plan of care. Objective - Vital Signs Vital signs: Vital Signs Temp 98.3 F 11/26/21 12:12 Pulse 72 11/26/21 12:12 Resp 14 11/26/21 12:12 BP 138/74 11/26/21 12:12 Pulse Ox 99 11/26/21 11:13 FiO2 99 11/25/21 01:41 Intake & Output 11/25/21 11/26/21 11/26/21 18:59 06:59 18:59 Intake Total 118 Balance 118 Weight 43.091 kg Intake: Oral 118 Other: Voiding Method Toilet Toilet Toilet # Voids 2 2 - Labs CBC & Chem 7: 11/26/21 08:14 11/26/21 08:14 Labs: Abnormal Lab Results - Last 24 Hours (Table) 11/25/21 11/25/21 11/25/21 Range/Units 07:11 16:41 20:08 RBC (4.30-5.90) m/uL Hgb (13.0-17.5) gm/dL Hct (39.0-53.0) % MCV (80.0-100.0) fL MCH (25.0-35.0) pg MCHC (31.0-37.0) g/dL RDW (11.5-15.5) % Plt Count (150-450) k/uL Sodium (137-145) mmol/L Creatinine (0.66-1.25) mg/dL Glucose (74-99) mg/dL POC Glucose (mg/dL) 170 H 156 H (70-110) mg/dL Calcium (8.4-10.2) mg/dL Iron 10 L (65-175) ug/dL % Saturation 2.72 L (15.00-50.00) Total Protein (6.3-8.2) g/dL Albumin (3.5-5.0) g/dL 11/25/21 11/26/21 11/26/21 Range/Units 20:55 00:10 06:22 RBC (4.30-5.90) m/uL Hgb (13.0-17.5) gm/dL Hct (39.0-53.0) % MCV (80.0-100.0) fL MCH (25.0-35.0) pg MCHC (31.0-37.0) g/dL RDW (11.5-15.5) % Plt Count (150-450) k/uL Sodium (137-145) mmol/L Creatinine (0.66-1.25) mg/dL Glucose (74-99) mg/dL POC Glucose (mg/dL) 162 H 60 L 126 H (70-110) mg/dL Calcium (8.4-10.2) mg/dL Iron (65-175) ug/dL % Saturation (15.00-50.00) Total Protein (6.3-8.2) g/dL Albumin (3.5-5.0) g/dL 11/26/21 11/26/21 11/26/21 Range/Units 08:14 08:14 11:47 RBC 4.06 L (4.30-5.90) m/uL Hgb 8.1 L (13.0-17.5) gm/dL Hct 28.9 L (39.0-53.0) % MCV 71.3 L (80.0-100.0) fL MCH 19.8 L (25.0-35.0) pg MCHC 27.8 L (31.0-37.0) g/dL RDW 15.7 H (11.5-15.5) % Plt Count 695 H (150-450) k/uL Sodium 132 L (137-145) mmol/L Creatinine 0.64 L (0.66-1.25) mg/dL Glucose 154 H (74-99) mg/dL POC Glucose (mg/dL) 209 H (70-110) mg/dL Calcium 8.2 L (8.4-10.2) mg/dL Iron (65-175) ug/dL % Saturation (15.00-50.00) Total Protein 6.1 L (6.3-8.2) g/dL Albumin 2.9 L (3.5-5.0) g/dL Microbiology - Last 24 Hours (Table) 11/25/21 01:40 Blood Culture - Preliminary Blood No Growth after 24 hours 11/24/21 23:56 Blood Culture - Preliminary Blood No Growth after 24 hours
--- NOTE | 2021-11-26 16:07 | P.GSCN ---
History of Present Illness Consult date: 11/26/21 History of present illness: CHIEF COMPLAINT: Shortness of breath and chest pain HISTORY OF PRESENT ILLNESS: This is a 61-year-old male who presented to the hospital with complaints of chest pain and shortness of breath that had developed over the last 3 days. Patient has been seen evaluated by cardiology service. They ruled out any acute coronary syndrome. His troponins were negative 3 sets. Patient was also found to be anemic and therefore surgical service was consulted. Patient's last EGD and colonoscopy was done in February 2021. The colonoscopy had a poor bowel prep and EGD did reveal gastritis. Patient denies any blood in his stools. Denies any black stools. Denies any abdominal pain. Denies any nausea or vomiting. Hemoglobin on admission was 8.5 and his iron level was low at 10. Patient denies any regular NSAID use. Patient seen and examined with Dr. reyes PAST MEDICAL HISTORY: See list. PAST SURGICAL HISTORY: See list. MEDICATIONS: See list. ALLERGIES: See list. SOCIAL HISTORY: No illicit drug use. REVIEW OF SYSTEMS: CONSTITUTIONAL: Denies fever or chills. HEENT: Denies blurred vision, vision changes, or eye pain. Denies hemoptysis CARDIOVASCULAR: Denies chest pain or pressure. RESPIRATORY: No shortness of breath. GASTROINTESTINAL: See HPI for pertinent findings HEMATOLOGIC: Denies bleeding disorders. GENITOURINARY: Denies any blood in urine or increased urinary frequency. SKIN: Denies pruitis. Denies rash. PHYSICAL EXAM: VITAL SIGNS: Reviewed GENERAL: Well-developed in no acute distress. HEENT: No sclera icterus. Extraocular movements grossly intact. Moist buccal mucosa. Head is atraumatic, normocephalic. No nasal drainage. ABDOMEN: Soft. Nondistended. Nontender NEUROLOGIC: Alert and oriented. Cranial nerves II through XII grossly intact. LABORATORY DATA: WBC 8.7 hemoglobin 8.5 down to 8.1 platelets 695 Sodium is up from 126-132 potassium 4.5 creatinine 0.64 Hemoglobin A1c is 14.5 Glucose on admission was 616 Magnesium 1.8 iron 10 B12 and folate within normal range Troponins negative 3 sets Stool for occult blood negative Influenza, RSV and COVID-19 not detected IMAGING: Chest x-ray normal ASSESSMENT: 1. Microcytic anemia with no active bleeding 2. Iron deficiency 3. Shortness of breath PLAN: -Patient scheduled for EGD and colonoscopy on with Dr. reyes -Continue to monitor hemoglobin -Continue monitoring for any signs or symptoms of bleeding -Start GoLYTELY prep tomorrow -Full liquid diet for dinner and clear liquid diet starting tomorrow Thank you for this consultation Physician Weapons Designer note has been reviewed by physician. Signing provider agrees with the documented findings, assessment, and plan of care. Past Medical History Past Medical History: Diabetes Mellitus, Diabetes Mellitus, GERD/Reflux, Hyperlipidemia, Osteoarthritis (OA), Seizure Disorder Additional Past Medical History / Comment(s): IDDM type 1 per pt, bilateral feet neuropathy, pt states current wounds to bilateral feet/goes to [facility]/seen by Dr. Major (siebel crm developer), past L lower extremity cellulitis with sepsis, L wrist cancerous tumor removed, past seizure about a year ago, arthritis L knee, verti go, occasional diarrhea. History of Any Multi-Drug Resistant Organisms: MRSA Year Discovered:: 12/29/19 MDRO Source:: Left Leg Past Surgical History: Orthopedic Surgery, Tonsillectomy Additional Past Surgical History / Comment(s): 01/23/20 angiogram L leg, 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, colonoscopy, L eye surgery for strabismus. Past Anesthesia/Blood Transfusion Reactions: No Reported Reaction Past Psychological History: Depression Smoking Status: Never smoker Past Alcohol Use History: None Reported Past Drug Use History: None Reported - Past Family History Father Family Medical History: Myocardial Infarction (HI) Additional Family Medical History / Comment(s): Father of a HI at the age of 57yrs. Mother Family Medical History: Cancer Additional Family Medical History / Comment(s): Mother from cancer at the age of 61 or 62 . Pt cannot recall type of cancer. Sister(s) Family Medical History: Diabetes Mellitus Additional Family Medical History / Comment(s): Sister had DM type 1. She is . Medications and Allergies Home Medications Medication Instructions Recorded Confirmed Type Omeprazole 20 mg PO AC-BID 06/13/17 11/25/21 History Pioglitazone HCl [Actos] 15 mg PO DAILY 10/03/18 11/25/21 History Diphenox-Atrop 2.5-0.025 mg 1 tab PO BID PRN 11/17/19 11/25/21 History [Lomotil] Rosuvastatin [Crestor] 10 mg PO HS 05/15/20 11/25/21 History Latanoprost/Pf [Latanoprost 0.005% 1 drop BOTH EYES HS 06/15/21 11/25/21 History Eye Drop] Phenytoin Sodium Extended 60 mg PO BID 07/14/21 11/25/21 History [Dilantin] Acetaminophen Tab [Tylenol] 325 mg PO Q6HR PRN 07/17/21 11/25/21 History Acetaminophen-Codeine 300-30mg 1 tab PO TID PRN 07/17/21 11/25/21 History [Tylenol w/codeine #3] Ondansetron Odt [Zofran ODT] 4 mg PO Q8HR PRN #12 tab 07/29/21 11/25/21 Rx Ketorolac 0.5% Ophth Soln [Acular 1 drops LEFT EYE BID 08/30/21 11/25/21 History 0.5%] Mupirocin 2% Oint [Bactroban 2% 1 applic TOPICAL DAILY PRN 09/23/21 11/25/21 His tory Oint] Insulin Glargine [Lantus Vial] 50 unit SQ DAILY 11/25/21 11/25/21 History Insulin Lispro [Admelog] See Protocol SQ AC-TID 11/25/21 11/25/21 History Triamcinolone 0.5% Cream [Kenalog 1 applic TOPICAL DAILY PRN 11/25/21 11/25/21 History 0.5% Cream] Allergies Allergy/AdvReac Type Severity Reaction Status Date / Time No Known Allergies Allergy Verified 11/25/21 06:21 Surgical - Exam Vital Signs Temp Pulse Resp BP Pulse Ox 98.2 F 70 20 88/53 99 11/24/21 21:52 11/24/21 21:52 11/24/21 21:52 11/24/21 21:52 11/24/21 21:52 Results - Labs 11/26/21 08:14 11/26/21 08:14 Abnormal Lab Results - Last 24 Hours (Table) 11/25/21 11/25/21 11/25/21 Range/Units 07:11 16:41 20:08 RBC (4.30-5.90) m/uL Hgb (13.0-17.5) gm/dL Hct (39.0-53.0) % MCV (80.0-100.0) fL MCH (25.0-35.0) pg MCHC (31.0-37.0) g/dL RDW (11.5-15.5) % Plt Count (150-450) k/uL Sodium (137-145) mmol/L Creatinine (0.66-1.25) mg/dL Glucose (74-99) mg/dL POC Glucose (mg/dL) 170 H 156 H (70-110) mg/dL Calcium (8.4-10.2) mg/dL Iron 10 L (65-175) ug/dL % Saturation 2.72 L (15.00-50.00) Total Protein (6.3-8.2) g/dL Albumin (3.5-5.0) g/dL 11/25/21 11/26/21 11/26/21 Range/Units 20:55 00:10 06:22 RBC (4.30-5.90) m/uL Hgb (13.0-17.5) gm/dL Hct (39.0-53.0) % MCV (80.0-100.0) fL MCH (25.0-35.0) pg MCHC (31.0-37.0) g/dL RDW (11.5-15.5) % Plt Count (150-450) k/uL Sodium (137-145) mmol/L Creatinine (0.66-1.25) mg/dL Glucose (74-99) mg/dL POC Glucose (mg/dL) 162 H 60 L 126 H (70-110) mg/dL Calcium (8.4-10.2) mg/dL Iron (65-175) ug/dL % Saturation (15.00-50.00) Total Protein (6.3-8.2) g/dL Albumin (3.5-5.0) g/dL 11/26/21 11/26/21 11/26/21 Range/Units 08:14 08:14 11:47 RBC 4.06 L (4.30-5.90) m/uL Hgb 8.1 L (13.0-17.5) gm/dL Hct 28.9 L (39.0-53.0) % MCV 71.3 L (80.0-100.0) fL MCH 19.8 L (25.0-35.0) pg MCHC 27.8 L (31.0-37.0) g/dL RDW 15.7 H (11.5-15.5) % Plt Count 695 H (150-450) k/uL Sodium 132 L (137-145) mmol/L Creatinine 0.64 L (0.66-1.25) mg/dL Glucose 154 H (74-99) mg/dL POC Glucose (mg/dL) 209 H (70-110) mg/dL Calcium 8.2 L (8.4-10.2) mg/dL Iron (65-175) ug/dL % Saturation (15.00-50.00) Total Protein 6.1 L (6.3-8.2) g/dL Albumin 2.9 L (3.5-5.0) g/dL Microbiology - Last 24 Hours (Table) 11/25/21 01:40 Blood Culture - Preliminary Blood No Growth after 24 hours 11/24/21 23:56 Blood Culture - Preliminary Blood No Growth after 24 hours Diabetes panel 11/26/21 Range/Units 08:14 Sodium 132 L (137-145) mmol/L Potassium 4.5 (3.5-5.1) mmol/L Chloride 100 (98-107) mmol/L Carbon Dioxide 23 (22-30) mmol/L BUN 17 (9-20) mg/dL Creatinine 0.64 L (0.66-1.25) mg/dL Glucose 154 H (74-99) mg/dL Calcium 8.2 L (8.4-10.2) mg/dL AST 24 (17-59) U/L ALT 11 (4-49) U/L Alkaline Phosphatase 88 (38-126) U/L Total Protein 6.1 L (6.3-8.2) g/dL Albumin 2.9 L (3.5-5.0) g/dL Calcium panel 11/26/21 Range/Units 08:14 Calcium 8.2 L (8.4-10.2) mg/dL Albumin 2.9 L (3.5-5.0) g/dL Pituitary panel 11/26/21 Range/Units 08:14 Sodium 132 L (137-145) mmol/L Potassium 4.5 (3.5-5.1) mmol/L Chloride 100 (98-107) mmol/L Carbon Dioxide 23 (22-30) mmol/L BUN 17 (9-20) mg/dL Creatinine 0.64 L (0.66-1.25) mg/dL Glucose 154 H (74-99) mg/dL Calcium 8.2 L (8.4-10.2) mg/dL Adrenal panel 11/26/21 Range/Units 08:14 Sodium 132 L (137-145) mmol/L Potassium 4.5 (3.5-5.1) mmol/L Chloride 100 (98-107) mmol/L Carbon Dioxide 23 (22-30) mmol/L BUN 17 (9-20) mg/dL Creatinine 0.64 L (0.66-1.25) mg/dL Glucose 154 H (74-99) mg/dL Calcium 8.2 L (8.4-10.2) mg/dL Total Bilirubin 0.2 (0.2-1.3) mg/dL AST 24 (17-59) U/L ALT 11 (4-49) U/L Alkaline Phosphatase 88 (38-126) U/L Total Protein 6.1 L (6.3-8.2) g/dL Albumin 2.9 L (3.5-5.0) g/dL
[2021-11-26 16:55] LABS: Glucose,Whole Blood 181 mg/dL (70-110)
--- NOTE | 2021-11-26 17:49 | P.PN ---
Subjective Progress Note Date: 11/26/21 Pietro Ryder, is a 61 year old male who presented to [facility] emergency room with a chief complaint of chest discomfort and shortness of breath that he developed over the last 3 days He was evaluated in the emergency room vital examination on presentation revealed a temperature of 98.2 pulse 70 respiration 20 blood pressure 88/53 pulse ox 99% on room air Laboratory data revealed a white blood count of 8.9 hemoglobin 8.5 platelet count 732 sodium 126 potassium 4.9 chloride 83 BUN 18 creatinine 0.93 glucose level 616 Testing in the emergency room revealed chest x-ray done in the emergency room did not reveal any acute abnormality, EKG revealed sinus rhythm with early repolarization Patient was admitted to medical floor for further evaluation and treatment On 11/26/2021 patient was seen and examined on the medical floor he is alert and oriented 3 in no apparent distress there is no fever or chills no headache or dizziness no chest pain no shortness of breath no cough no nausea or vomiting no abdominal pain no diarrhea no blood in stools no burning with urination no fr equency or urgency and no hematuria. Patient had episodes of hypoglycemia last night, at this time will decrease Levemir to 25 units daily, will continue with sliding scale, will monitor for 24 more hours Objective - Vital Signs Vital signs: Vital Signs Temp 97.9 F 11/26/21 15:05 Pulse 72 11/26/21 15:05 Resp 16 11/26/21 15:05 BP 130/74 11/26/21 15:05 Pulse Ox 98 11/26/21 15:05 FiO2 99 11/25/21 01:41 Intake & Output 11/25/21 11/26/21 11/26/21 18:59 06:59 18:59 Intake Total 118 Balance 118 Weight 43.091 kg Intake: Oral 118 Other: Voiding Method Toilet Toilet Toilet # Voids 2 2 1 # Bowel Movements 1 - Exam In general patient is alert and oriented x 3 in no distress HEENT head normocephalic and atraumatic Neck is supple no JVD no goiter no lymphadenopathy no carotid bruit Chest examination is clear to auscultation no crackles no wheezing Cardiac exam reveals regular heart sounds S1 and S2 no gallops no murmurs Abdomen is soft nontender no organomegaly with normal bowel sounds Extremity exam reveals no edema no cyanosis or clubbing Neurological examination reveals no gross focal deficits - Labs CBC & Chem 7: 11/26/21 08:14 11/26/21 08:14 Labs: Abnormal Lab Results - Last 24 Hours (Table) 11/25/21 11/25/21 11/25/21 Range/Units 07:11 20:08 20:55 RBC (4.30-5.90) m/uL Hgb (13.0-17.5) gm/dL Hct (39.0-53.0) % MCV (80.0-100.0) fL MCH (25.0-35.0) pg MCHC (31.0-37.0) g/dL RDW (11.5-15.5) % Plt Count (150-450) k/uL Sodium (137-145) mmol/L Creatinine (0.66-1.25) mg/dL Glucose (74-99) mg/dL POC Glucose (mg/dL) 156 H 162 H (70-110) mg/dL Calcium (8.4-10.2) mg/dL Iron 10 L (65-175) ug/dL % Saturation 2.72 L (15.00-50.00) Total Protein (6.3-8.2) g/dL Albumin (3.5-5.0) g/dL 11/26/21 11/26/21 11/26/21 Range/Units 00:10 06:22 08:14 RBC 4.06 L (4.30-5.90) m/uL Hgb 8.1 L (13.0-17.5) gm/dL Hct 28.9 L (39.0-53.0) % MCV 71.3 L (80.0-100.0) fL MCH 19.8 L (25.0-35.0) pg MCHC 27.8 L (31.0-37.0) g/dL RDW 15.7 H (11.5-15.5) % Plt Count 695 H (150-450) k/uL Sodium (137-145) mmol/L Creatinine (0.66-1.25) mg/dL Glucose (74-99) mg/dL POC Glucose (mg/dL) 60 L 126 H (70-110) mg/dL Calcium (8.4-10.2) mg/dL Iron (65-175) ug/dL % Saturation (15.00-50.00) Total Protein (6.3-8.2) g/dL Albumin (3.5-5.0) g/dL 11/26/21 11/26/21 11/26/21 Range/Units 08:14 11:47 16:51 RBC (4.30-5.90) m/uL Hgb (13.0-17.5) gm/dL Hct (39.0-53.0) % MCV (80.0-100.0) fL MCH (25.0-35.0) pg MCHC (31.0-37.0) g/dL RDW (11.5-15.5) % Plt Count (150-450) k/uL Sodium 132 L (137-145) mmol/L Creatinine 0.64 L (0.66-1.25) mg/dL Glucose 154 H (74-99) mg/dL POC Glucose (mg/dL) 209 H 181 H (70-110) mg/dL Calcium 8.2 L (8.4-10.2) mg/dL Iron (65-175) ug/dL % Saturation (15.00-50.00) Total Protein 6.1 L (6.3-8.2) g/dL Albumin 2.9 L (3.5-5.0) g/dL Microbiology - Last 24 Hours (Table) 11/25/21 01:40 Blood Culture - Preliminary Blood No Growth after 24 hours 11/24/21 23:56 Blood Culture - Preliminary Blood No Growth after 24 hours Assessment and Plan Plan: Episodes of chest pain and shortness of breath over the last 3 days Anemia with hemoglobin at 8.5 on presentation, this is microcytic anemia with MCV of 69.7 Hyponatremia on presentation Extreme hyperglycemia was a glucose at 616 Underlying history of insulin-dependent diabetes mellitus Underlying history of chronic lower extremity infection was open ulcers followed at the wound care clinic Underlying history of seizure disorder maintained on Dilantin Underlying history of hyperlipidemia At this time patient is admitted to telemetry floor He was started on IV fluids and on insulin Home medications reviewed and reordered Cardiology consultation requested in regard to chest pain Patient counseled in length in regards to taking medications as instructed, he was recently given insulin samples from the office as he stated that he could not afford his medications Workup for anemia initiated
[2021-11-26 19:53] LABS: Glucose,Whole Blood 255 mg/dL (70-110)
[2021-11-26] MEDS: ATORVASTATIN 20 MG TAB PO SCH (20:55)
[2021-11-27 02:24] LABS: Glucose,Whole Blood 215 mg/dL (70-110)
[2021-11-27 06:10] LABS: Glucose,Whole Blood 155 mg/dL (70-110)
[2021-11-27] MEDS: INSULIN DETEMIR (LEVEMIR) 100 UNIT/ML SYR SQ SCH (06:17)
[2021-11-27] MEDS: INSULIN ASPART (NovoLOG) 100 UNIT/ML VIAL SQ SCH ×4 (06:17→22:10)
[2021-11-27] MEDS: PANTOPRAZOLE 40 MG TABLET PO SCH (06:17)
[2021-11-27] MEDS: PHENYTOIN SODIUM EXTENDED 100 MG CAP PO SCH ×2 (08:46→22:27)
[2021-11-27] MEDS: KETOROLAC 0.5% OPHTH DROPS 5 ML BTL LEFT EYE SCH ×2 (08:46→22:10)
[2021-11-27] MEDS: prednisoLONE ACETATE 1% OPHTH DROPS 5 ML BTL LEFT EYE SCH ×2 (08:46→22:28)
[2021-11-27] MEDS ORDERED: PEG 3350 (236 GM/BTL) + LYTES 4,000 ML BOTTLE PO ONE (09:00)
[2021-11-27 09:07] LABS: Basophils % (A) 1 %; Eosinophils # (A) 0.1 k/uL (0-0.7); Eosinophils % (A) 2 %; HCT 27.9 % (39.0-53.0); HGB 8.1 gm/dL (13.0-17.5); Hypochromasia Marked; Lymphocytes # (A) 1.7 k/uL (1.0-4.8); Lymphocytes % (A) 24 %; MCHC 28.9 g/dL (31.0-37.0); MCV 69.3 fL (80.0-100.0); Mean Platelet Volume 6.3; Microcytosis Marked; Monocytes # (A) 0.4 k/uL (0-1.0); Monocytes % (A) 5 %; Neutrophils # (A) 4.9 k/uL (1.3-7.7); Neutrophils % (A) 67 %; Platelet Count 685 k/uL (150-450); RBC 4.03 m/uL (4.30-5.90); RDW 15.8 % (11.5-15.5); WBC 7.3 k/uL (3.8-10.6)
[2021-11-27] MEDS: SODIUM CHLORIDE 0.9% 1,000 ML IV SCH ×2 (11:54→22:28)
[2021-11-27 11:55] LABS: Glucose,Whole Blood 296 mg/dL (70-110)
[2021-11-27] MEDS: NON FORMULARY DRUG (Phenytoin Sodium Extended [Dilantin] 30 MG Capsule) PO SCH ×2 (11:58→22:28)
--- NOTE | 2021-11-27 12:22 | P.PN ---
Subjective Progress Note Date: 11/27/21 Pietro Ryder, is a 61 year old male who presented to [facility] emergency room with a chief complaint of chest discomfort and shortness of breath that he developed over the last 3 days He was evaluated in the emergency room vital examination on presentation revealed a temperature of 98.2 pulse 70 respiration 20 blood pressure 88/53 pulse ox 99% on room air Laboratory data revealed a white blood count of 8.9 hemoglobin 8.5 platelet count 732 sodium 126 potassium 4.9 chloride 83 BUN 18 creatinine 0.93 glucose level 616 Testing in the emergency room revealed chest x-ray done in the emergency room did not reveal any acute abnormality, EKG revealed sinus rhythm with early repolarization Patient was admitted to medical floor for further evaluation and treatment On 11/26/2021 patient was seen and examined on the medical floor he is alert and oriented 3 in no apparent distress there is no fever or chills no headache or dizziness no chest pain no shortness of breath no cough no nausea or vomiting no abdominal pain no diarrhea no blood in stools no burning with urination no fr equency or urgency and no hematuria. Patient had episodes of hypoglycemia last night, at this time will decrease Levemir to 25 units daily, will continue with sliding scale, will monitor for 24 more hours On 11/27/2021 patient is alert and oriented 3. Dr. Moran been consulted for wound care to bilateral lower extremities patient does following wound care clinic. Plans for EGD and colonoscopy tomorrow per surgical services. Hemoglobin today 8.1. This time patient denies chest pain or shortness of breath. Patient denies nausea vomiting or diarrhea. Patient denies any urinary burning or frequency Objective - Vital Signs Vital signs: Vital Signs Temp 97.8 F 11/27/21 12:00 Pulse 76 11/27/21 12:00 Resp 16 11/27/21 12:00 BP 133/74 11/27/21 12:00 Pulse Ox 98 11/27/21 12:00 FiO2 99 11/25/21 01:41 Intake & Output 11/26/21 11/27/21 11/27/21 18:59 06:59 18:59 Intake Total 478 330 Balance 478 330 Intake: Intake, IV Titration 150 Amount Sodium Chloride 0.9% 1, 150 000 ml @ 75 mls/hr IV . [id number] [facility] Rx#:[id number] Oral 478 180 Other: Voiding Method Toilet Toilet Toilet # Voids 1 2 1 # Bowel Movements 1 - Exam In general patient is alert and oriented x 3 in no distress HEENT head normocephalic and atraumatic Neck is supple no JVD no goiter no lymphadenopathy no carotid bruit Chest examination is clear to auscultation no crackles no wheezing Cardiac exam reveals regular heart sounds S1 and S2 no gallops no murmurs Abdomen is soft nontender no organomegaly with normal bowel sounds Extremity exam reveals no edema no cyanosis or clubbing Neurological examination reveals no gross focal deficits - Labs CBC & Chem 7: 11/27/21 08:19 11/26/21 08:14 Labs: Abnormal Lab Results - Last 24 Hours (Table) 11/26/21 11/26/21 11/27/21 Range/Units 16:51 19:51 02:22 RBC (4.30-5.90) m/uL Hgb (13.0-17.5) gm/dL Hct (39.0-53.0) % MCV (80.0-100.0) fL MCH (25.0-35.0) pg MCHC (31.0-37.0) g/dL RDW (11.5-15.5) % Plt Count (150-450) k/uL POC Glucose (mg/dL) 181 H 255 H 215 H (70-110) mg/dL 11/27/21 11/27/21 11/27/21 Range/Units 06:09 08:19 11:54 RBC 4.03 L (4.30-5.90) m/uL Hgb 8.1 L (13.0-17.5) gm/dL Hct 27.9 L (39.0-53.0) % MCV 69.3 L (80.0-100.0) fL MCH 20.0 L (25.0-35.0) pg MCHC 28.9 L (31.0-37.0) g/dL RDW 15.8 H (11.5-15.5) % Plt Count 685 H (150-450) k/uL POC Glucose (mg/dL) 155 H 296 H (70-110) mg/dL Microbiology - Last 24 Hours (Table) 11/25/21 01:40 Blood Culture - Preliminary Blood No Growth after 48 hours 11/24/21 23:56 Blood Culture - Preliminary Blood No Growth after 48 hours Assessment and Plan Plan: Episodes of chest pain and shortness of breath over the last 3 days. Per cardiology atypical chest pain troponins negative 3 no further inpatient workup Anemia with hemoglobin at 8.5 on presentation, this is microcytic anemia with MCV of 69.7 Hyponatremia on presentation. Improving Extreme hyperglycemia was a glucose at 616 Underlying history of insulin-dependent diabetes mellitus Underlying history of chronic lower extremity infection was open ulcers followed at the wound care clinic Underlying history of seizure disorder maintained on Dilantin Underlying history of hyperlipidemia At this time patient is admitted to telemetry floor He was started on IV fluids and on insulin Home medications reviewed and reordered Cardiology consultation requested in regard to chest pain Infectious disease service is consulted Answer EGD and colonoscopy 11/28/2021 Patient counseled in length in regards to taking medications as instructed, he was recently given insulin samples from the office as he stated that he could not afford his medications Workup for anemia initiated
--- NOTE | 2021-11-27 15:35 | P.PN ---
Subjective Progress Note Date: 11/27/21 CHIEF COMPLAINT: Anemia HISTORY OF PRESENT ILLNESS: Patient lying in bed comfortably. He reports no blood in his stools. Denies abdominal pain. Denies any nausea or vomiting. Patient evaluated by cardiology service and they have signed off. Afebrile. Hemoglobin remains stable at 8.1 PHYSICAL EXAM: VITAL SIGNS: Reviewed. GENERAL: Well-developed in no acute distress. HEENT: No sclera icterus. Extraocular movements grossly intact. Moist buccal mucosa. Head is atraumatic, normocephalic. ABDOMEN: Soft. Nondistended. Nontender. NEUROLOGIC: Alert and oriented. Cranial nerves II through XII grossly intact. ASSESSMENT: 1. Microcytic anemia with no active bleeding 2. Iron deficiency 3. Shortness of breath PLAN: -Patient scheduled for EGD and colonoscopy tomorrow with Dr. Gonzalez -Continue to monitor hemoglobin -GoLYTELY prep today -Nothing by mouth after midnight Physician Alliance Director note has been reviewed by physician. Signing provider agrees with the documented findings, assessment, and plan of care. Objective - Vital Signs Vital signs: Vital Signs Temp 97.8 F 11/27/21 12:00 Pulse 76 11/27/21 12:00 Resp 16 11/27/21 12:00 BP 133/74 11/27/21 12:00 Pulse Ox 98 11/27/21 12:00 FiO2 99 11/25/21 01:41 Intake & Output 11/26/21 11/27/21 11/27/21 18:59 06:59 18:59 Intake Total 478 330 Balance 478 330 Intake: Intake, IV Titration 150 Amount Sodium Chloride 0.9% 1, 150 000 ml @ 75 mls/hr IV . [id number] [facility] Rx#:[id number] Oral 478 180 Other: Voiding Method Toilet Toilet Toilet # Voids 1 2 1 # Bowel Movements 1 - Labs CBC & Chem 7: 11/27/21 08:19 11/26/21 08:14 Labs: Abnormal Lab Results - Last 24 Hours (Table) 11/26/21 11/26/21 11/27/21 Range/Units 16:51 19:51 02:22 RBC (4.30-5.90) m/uL Hgb (13.0-17.5) gm/dL Hct (39.0-53.0) % MCV (80.0-100.0) fL MCH (25.0-35.0) pg MCHC (31.0-37.0) g/dL RDW (11.5-15.5) % Plt Count (150-450) k/uL POC Glucose (mg/dL) 181 H 255 H 215 H (70-110) mg/dL 11/27/21 11/27/21 11/27/21 Range/Units 06:09 08:19 11:54 RBC 4.03 L (4.30-5.90) m/uL Hgb 8.1 L (13.0-17.5) gm/dL Hct 27.9 L (39.0-53.0) % MCV 69.3 L (80.0-100.0) fL MCH 20.0 L (25.0-35.0) pg MCHC 28.9 L (31.0-37.0) g/dL RDW 15.8 H (11.5-15.5) % Plt Count 685 H (150-450) k/uL POC Glucose (mg/dL) 155 H 296 H (70-110) mg/dL Microbiology - Last 24 Hours (Table) 11/25/21 01:40 Blood Culture - Preliminary Blood No Growth after 48 hours 11/24/21 23:56 Blood Culture - Preliminary Blood No Growth after 48 hours
[2021-11-27 16:31] LABS: Glucose,Whole Blood 136 mg/dL (70-110)
[2021-11-27 20:29] LABS: Glucose,Whole Blood 217 mg/dL (70-110)
[2021-11-27] MEDS: ATORVASTATIN 20 MG TAB PO SCH (22:10)
[2021-11-27] MEDS: LATANOPROST 0.005% OPHTH DROPS 2.5 ML BTL BOTH EYES SCH (22:27)
[2021-11-28] MEDS: INSULIN DETEMIR (LEVEMIR) 100 UNIT/ML SYR SQ SCH (05:25)
[2021-11-28] MEDS: INSULIN ASPART (NovoLOG) 100 UNIT/ML VIAL SQ SCH ×4 (05:25→21:04)
[2021-11-28] MEDS: PANTOPRAZOLE 40 MG TABLET PO SCH (05:25)
[2021-11-28 06:00] LABS: Glucose,Whole Blood 118 mg/dL (70-110)
[2021-11-28] MEDS: LACTATED RINGERS 1,000 ML IV SCH (07:54)
[2021-11-28] MEDS: PHENYTOIN SODIUM EXTENDED 100 MG CAP PO SCH ×2 (07:54→21:03)
[2021-11-28] MEDS: KETOROLAC 0.5% OPHTH DROPS 5 ML BTL LEFT EYE SCH ×2 (07:54→21:05)
[2021-11-28] MEDS: prednisoLONE ACETATE 1% OPHTH DROPS 5 ML BTL LEFT EYE SCH ×2 (07:55→21:06)
[2021-11-28] MEDS: NON FORMULARY DRUG (Phenytoin Sodium Extended [Dilantin] 30 MG Capsule) PO SCH (07:55)
[2021-11-28] MEDS ORDERED: PROPOFOL 10 MG/ML 20 ML VIAL IV ONE (08:29)
[2021-11-28] MEDS ORDERED: LIDOCAINE 2% INJ 20 MG/ML (2 ML VIAL) ONE (08:29)
[2021-11-28] MEDS ORDERED: IV FLUID CONTINUATION 1,000 ML IV ONE (08:34)
--- NOTE | 2021-11-28 08:46 | P.OP ---
Date of Procedure: 11/28/21 Preoperative Diagnosis: GI bleed Postoperative Diagnosis: Antral gastritis Small hiatal hernia No evidence of upper GI bleed Procedure(s) Performed: EGD Colonoscopy Anesthesia: MAC Surgeon: Gerry Gonzalez Pathology: other (Antrum, esophagus) Condition: stable Disposition: PACU Description of Procedure: The patient's placed on the endoscopy table in the lateral position. He received IV sedation. The gastroscope placed oropharynx passed in the esophagus and stomach. Was placed through the pylorus. The first and second portion of the duodenum appeared normal. Scope summer back the antrum this was mildly inflamed. A biopsies performed. Scope was then retroflexed and remainder the stomach appeared normal. There was a small sliding hiatal hernia. The GE junction was at 38 cm. The distal esophagus appeared normal. The proximal esophagus. Normal. There is no evidence of any upper GI bleed. Next digital rectal exam was performed. This revealed a large amount liquid stool. The flexible colonoscope was then placed patient anus and passed throughout the colon. Scope was placed up into the transverse colon at this point scope could not be advanced due to poor colon prep. Scope withdrawn. There was significant diverticular changes seen in the descending and sigmoid colon. The view of the mucosa was limited due to the poor prep. The scope was then withdrawn into the rectum and this appeared normal. Scope withdrawn for patient. There is no evidence of any upper or lower GI bleed. Presumed patient may have had bleeding from diverticulosis. The right colon was not visualized due to poor prep.
[2021-11-28 09:56] LABS: Basophils % (A) 0 %; Eosinophils # (A) 0.1 k/uL (0-0.7); Eosinophils % (A) 1 %; HCT 27.6 % (39.0-53.0); HGB 7.8 gm/dL (13.0-17.5); Hypochromasia Marked; Lymphocytes # (A) 1.2 k/uL (1.0-4.8); Lymphocytes % (A) 16 %; MCH 19.7 pg (25.0-35.0); MCHC 28.2 g/dL (31.0-37.0); MCV 69.9 fL (80.0-100.0); Microcytosis Moderate; Monocytes # (A) 0.5 k/uL (0-1.0); Monocytes % (A) 6 %; Neutrophils % (A) 76 %; Platelet Count 563 k/uL (150-450); RBC 3.95 m/uL (4.30-5.90); RDW 15.6 % (11.5-15.5); WBC 7.9 k/uL (3.8-10.6)
[2021-11-28 10:03] LABS: ALT 8 U/L (4-49); AST 15 U/L (17-59); African American GFR (CKD) >90 (>60 ml/min/1.73 sqM); Albumin 2.8 g/dL (3.5-5.0); Alkaline Phosphatase 101 U/L (38-126); Anion Gap 8 mmol/L; Blood Urea Nitrogen 4 mg/dL (9-20); Calcium 8.1 mg/dL (8.4-10.2); Carbon Dioxide 29 mmol/L (22-30); Chloride 98 mmol/L (98-107); Glucose 178 mg/dL (74-99); Non-African American GFR(CKD) >90 (>60 ml/min/1.73 sqM); Potassium 4.1 mmol/L (3.5-5.1); Sodium 135 mmol/L (137-145); Total Bilirubin 0.3 mg/dL (0.2-1.3); Total Protein 5.8 g/dL (6.3-8.2)
[2021-11-28 11:47] LABS: Glucose,Whole Blood 244 mg/dL (70-110)
--- NOTE | 2021-11-28 12:15 | CDI ---
Documentation Clarification Form Date: 11/28/2021 11:45:13 AM From: Zoey Vale RN CCDS Admit Date: 11/25/2021 05:05:00 AM Patient Name: Pietro Ryder Visit Number: [id number] Discharge Date: ATTENTION: The Clinical Documentation Specialists (CDI) and [facility] Coding Staff appreciate your assistance in clarifying documentation. Please respond to the clarification below the line at the bottom and electronically sign. The CDI & [facility] Coding staff will review the response and follow-up if needed. Please note: Queries are made part of the Legal Health Record. If you have any questions, please contact the author of this message via ITS. Dr. Helen Chen Uncontrolled Diabetes is documented 11/25, ED note. Additional specificity regarding the diabetes diagnosis is requested. History/Risk Factors: 61-year-old male presents to the ED with chest discomfort and shortness of breath which he has developed over the past three days. Medical History: DM 1. 11/25, ED note. Clinical Indicators: 11/24 Blood glucose 616; / POC Glucose 503; 351; 409; 170; 162; 11/26 88 Treatment: 11/24 Blood glucose monitoring AC/HS; 11/24 0.9NS IV 500cc bolus x 1; 11/25 0.9NS IV bolus x 1; 11/25 Zofran IVP x 1; 11/25 Humulin R 10-unit IV x 1; 11/25 - 11/26 Levemir 50unit SQ Daily; 11/26 Levemir 25unit SQ ERIN. Please clarify diabetes, if known: [ ] Uncontrolled Diabetes Type 1 with DKA [ ] Uncontrolled Diabetes Type 1 with hyperglycemia, DKA ruled out [ ] Other, please specify [ ] Unable to Determine (Template Last Revised: May 2020) uncontrolled diabetes type 1 with hyperglycemia and DKA ruled out MTDD
--- NOTE | 2021-11-28 12:35 | CDI ---
Documentation Clarification Form Date: 11/28/2021 12:18:07 PM From: Zoey Vale RN CCDS Admit Date: 11/25/2021 05:05:00 AM Patient Name: Pietro Ryder Visit Number: [id number] Discharge Date: ATTENTION: The Clinical Documentation Specialists (CDI) and [facility] Coding Staff appreciate your assistance in clarifying documentation. Please respond to the clarification below the line at the bottom and electronically sign. The CDI & [facility] Coding staff will review the response and follow-up if needed. Please note: Queries are made part of the Legal Health Record. If you have any questions, please contact the author of this message via ITS. Dr. Helen Chen The Registered Dietitian assessment on 11/25 is Underweight. Based on this information and the findings below, is there an additional diagnosis that is clinically appropriate for this patient? History/Risk Factors: 61-year-old male presents to the ED with chest discomfort and shortness of breath which he has developed over the past three days. Medical History: DM 1, Seizure and chronic open wounds 11/25, ED note. Clinical Indicators: RD Consult Assessment: see below Current BMI: 17.9 Patient states occasionally his weight will get up to 102 pounds. Nutritional intake: Good, 75-100% consumed. Patient does have nausea Current weight used to estimate protein needs: Estimated protein range (grams/kg) 1 -1.2. Estimated protein needs (grams/day) 43-52. Protein comment 1 1.2g/kg r/t need for weight gain + lean muscle mass Treatment: Well controlled blood sugar. Snacks carbohydrate modified diet Dietary Consult: See above. Nutritional education , relationship to health/disease. Weight gain education. Is there an additional diagnosis that is clinically appropriate for this patient? [ ] Mild Protein-Calorie Malnutrition [ ] Moderate Protein-Calorie Malnutrition [ ] Other condition, please specify [ ] Unable to Determine Answered in Surgical progress note 12/[address] Severe protein calorie malnutrition Dr. Gonzalez (Template Last Revised: May 2020) MTDD
[2021-11-28] MEDS: MULTIVITAMINS, THERA 1 EACH TAB PO SCH (15:39)
[2021-11-28] MEDS: SODIUM FERRIC GLUCONAT-SUCROSE 125 MG in SODIUM CHLORIDE 0.9% 100 ML IVPB SCH (15:39)
--- NOTE | 2021-11-28 16:07 | P.CONS ---
History of Present Illness - Reason for Consult Consult date: 11/27/21 - History of Present Illness Patient is a 61-year old male with a past medical history significant for diabetes mellitus insulin-dependent in this patient also with a history of multiple wounds to bilateral lower extremity unfortunately with noncompliance to the outpatient treatment patient is presenting to the ER 3 days ago for evaluation of chest discomfort and shortness of breath that did not have been going on for 3 days before presentation to the hospital patient on arrival to the ER was afebrile and no fever have been recorded subsequently patient did have a normal white count kidney function has been normal liver enzymes are normal urine has been negative patient did have a negative COVID influenza and RSV PCR chest x-ray was negative patient is currently being worked up for this anemia with EGD/scheduled for tomorrow morning, infectious disease was consulted today for management of his lower extremity wounds, patient is not sure what kind of treatment he is receiving the outpatient setting for his lower extremity wound mostly to bilateral feet area and left lower leg patient currently denies having any pain to the wound area or any foul-smelling drainage no surrounding redness and is not on any systemic antibiotic therapy Past Medical History Past Medical History: Diabetes Mellitus, Diabetes Mellitus, GERD/Reflux, Hyperlipidemia, Osteoarthritis (OA), Seizure Disorder Additional Past Medical History / Comment(s): IDDM type 1 per pt, bilateral feet neuropathy, pt states current wounds to bilateral feet/goes to [facility]/seen by Dr. Major (computer mechanic), past L lower extremity cellulitis with sepsis, L wrist cancerous tumor removed, past seizure about a year ago, arthritis L knee, vertigo, occasional diarrhea. History of Any Multi-Drug Resistant Organisms: MRSA Year Discovered:: 12/29/19 MDRO Source:: Left Leg Past Surgical History: Orthopedic Surgery, Tonsillectomy Additional Past Surgical History / Comment(s): 01/23/20 angiogram L leg, 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, colonoscopy, L eye surgery for strabismus. Past Anesthesia/Blood Transfusion Reactions: No Reported Reaction Past Psychological History: Depression Smoking Status: Never smoker Past Alcohol Use History: None Reported Past Drug Use History: None Reported - Past Family History Father Family Medical History: Myocardial Infarction ([place]) Additional Family Medical History / Comment(s): Father of a [place] at the age of 57yrs. Mother Family Medical History: Cancer Additional Family Medical History / Comment(s): Mother from cancer at the age of 61 or 62 . Pt cannot recall type of cancer. Sister(s) Family Medical History: Diabetes Mellitus Additional Family Medical History / Comment(s): Sister had DM type 1. She is . Medications and Allergies Home Medications Medication Instructions Recorded Confirmed Type Omeprazole 20 mg PO AC-BID 06/13/17 11/25/21 History Pioglitazone HCl [Actos] 15 mg PO DAILY 10/03/18 11/25/21 History Diphenox-Atrop 2.5-0.025 mg 1 tab PO BID PRN 11/17/19 11/25/21 History [Lomotil] Rosuvastatin [Crestor] 10 mg PO HS 05/15/20 11/25/21 History Latanoprost/Pf [Latanoprost 0.005% 1 drop BOTH EYES HS 06/15/21 11/25/21 History Eye Drop] Phenytoin Sodium Extended 60 mg PO BID 07/14/21 11/25/21 History [Dilantin] Acetaminophen Tab [Tylenol] 325 mg PO Q6HR PRN 07/17/21 11/25/21 History Acetaminophen-Codeine 300-30mg 1 tab PO TID PRN 07/17/21 11/25/21 History [Tylenol w/codeine #3] Ondansetron Odt [Zofran ODT] 4 mg PO Q8HR PRN #12 tab 07/29/21 11/25/21 Rx Ketorolac 0.5% Ophth Soln [Acular 1 drops LEFT EYE BID 08/30/21 11/25/21 History 0.5%] Mupirocin 2% Oint [Bactroban 2% 1 applic TOPICAL DAILY PRN 09/23/21 11/25/21 History Oint] Insulin Glargine [Lantus Vial] 50 unit SQ DAILY 11/25/21 11/25/21 History Insulin Lispro [Admelog] See Protocol SQ AC-TID 11/25/21 11/25/21 History Triamcinolone 0.5% Cream [Kenalog 1 applic TOPICAL DAILY PRN 11/25/21 11/25/21 History 0.5% Cream] Allergies Allergy/AdvReac Type Severity Reaction Status Date / Time No Known Allergies Allergy Verified 11/25/21 06:21 Physical Exam Vitals: Vital Signs Temp Pulse Pulse Resp BP Pulse Ox 11/27/21 12:00 97.8 F 76 16 133/74 98 11/27/21 08:45 76 18 11/27/21 08:36 98.3 F 79 18 134/77 100 11/27/21 08:26 79 18 11/27/21 03:16 88 19 143/75 100 11/26/21 23:43 67 19 132/62 95 11/26/21 20:00 97.9 F 77 19 139/71 95 11/26/21 15:05 97.9 F 72 16 130/74 98 11/26/21 14:00 72 Intake and Output 11/26/21 11/27/21 11/27/21 22:59 06:59 14:59 Intake Total 360 330 Balance 360 330 Intake: Intake, IV Titration 150 Amount Sodium Chloride 0.9% 1, 150 000 ml @ 75 mls/hr IV . [id number] ERIN Rx#:[id number] Oral 360 180 Other: Voiding Method Toilet Toilet Toilet # Voids 1 2 1 # Bowel Movements 1 Results CBC & Chem 7: 11/28/21 09:12 11/28/21 09:12 Labs: Abnormal Lab Results - Last 24 Hours (Table) 11/26/21 11/26/21 11/27/21 Range/Units 16:51 19:51 02:22 RBC (4.30-5.90) m/uL Hgb (13.0-17.5) gm/dL Hct (39.0-53.0) % MCV (80.0-100.0) fL MCH (25.0-35.0) pg MCHC (31.0-37.0) g/dL RDW (11.5-15.5) % Plt Count (150-450) k/uL POC Glucose (mg/dL) 181 H 255 H 215 H (70-110) mg/dL 11/27/21 11/27/21 11/27/21 Range/Units 06:09 08:19 11:54 RBC 4.03 L (4.30-5.90) m/uL Hgb 8.1 L (13.0-17.5) gm/dL Hct 27.9 L (39.0-53.0) % MCV 69.3 L (80.0-100.0) fL MCH 20.0 L (25.0-35.0) pg MCHC 28.9 L (31.0-37.0) g/dL RDW 15.8 H (11.5-15.5) % Plt Count 685 H (150-450) k/uL POC Glucose (mg/dL) 155 H 296 H (70-110) mg/dL Microbiology - Last 24 Hours (Table) 11/25/21 01:40 Blood Culture - Preliminary Blood No Growth after 48 hours 11/24/21 23:56 Blood Culture - Preliminary Blood No Growth after 48 hours Assessment and Plan Plan: 1patient with multiple bilateral lower extremity/diabetic foot wounds currently the wound looks clean with no evidence of any slough tissue or surrounding redness recommend local wound care. 2we will apply Aquacel silver dressing to the wound change every 48 hour. 3no need for systemic antibiotic therapy. We will follow on clinical condition and cultures to further adjust medication if needed Thank you for this consultation will follow this patient along with you Time with Patient: Greater than 30
[2021-11-28 16:22] LABS: Glucose,Whole Blood 286 mg/dL (70-110)
[2021-11-28] MEDS: SODIUM CHLORIDE 0.9% 1,000 ML IV SCH (17:53)
[2021-11-28 20:21] LABS: Glucose,Whole Blood 234 mg/dL (70-110)
[2021-11-28] MEDS: ATORVASTATIN 20 MG TAB PO SCH (21:03)
[2021-11-28] MEDS: LATANOPROST 0.005% OPHTH DROPS 2.5 ML BTL BOTH EYES SCH (21:05)
[2021-11-29 05:59] LABS: Glucose,Whole Blood 357 mg/dL (70-110)
[2021-11-29] MEDS: INSULIN DETEMIR (LEVEMIR) 100 UNIT/ML SYR SQ SCH (06:20)
[2021-11-29] MEDS: INSULIN ASPART (NovoLOG) 100 UNIT/ML VIAL SQ SCH ×4 (06:21→20:53)
[2021-11-29] MEDS: PANTOPRAZOLE 40 MG TABLET PO SCH (06:21)
[2021-11-29] MEDS: NON FORMULARY DRUG (Phenytoin Sodium Extended [Dilantin] 30 MG Capsule) PO SCH ×3 (06:22→20:54)
[2021-11-29] MEDS: LACTATED RINGERS 1,000 ML IV SCH (07:53)
[2021-11-29] MEDS: SODIUM CHLORIDE 0.9% 1,000 ML IV SCH ×2 (07:53→10:04)
[2021-11-29 08:47] LABS: Basophils # (A) 0.1 k/uL (0-0.2); Basophils % (A) 1 %; Eosinophils % (A) 0 %; HCT 28.5 % (39.0-53.0); HGB 8.1 gm/dL (13.0-17.5); Hypochromasia Marked; Lymphocytes # (A) 0.6 k/uL (1.0-4.8); Lymphocytes % (A) 7 %; MCH 19.7 pg (25.0-35.0); MCHC 28.3 g/dL (31.0-37.0); MCV 69.4 fL (80.0-100.0); Mean Platelet Volume 6.4; Microcytosis Marked; Monocytes # (A) 0.3 k/uL (0-1.0); Monocytes % (A) 4 %; Neutrophils # (A) 7.4 k/uL (1.3-7.7); Neutrophils % (A) 87 %; Platelet Count 603 k/uL (150-450); RDW 15.7 % (11.5-15.5); WBC 8.5 k/uL (3.8-10.6)
[2021-11-29 08:56] LABS: ALT 11 U/L (4-49); AST 16 U/L (17-59); African American GFR (CKD) >90 (>60 ml/min/1.73 sqM); Alkaline Phosphatase 103 U/L (38-126); Anion Gap 8 mmol/L; Blood Urea Nitrogen 10 mg/dL (9-20); Calcium 8.3 mg/dL (8.4-10.2); Carbon Dioxide 27 mmol/L (22-30); Chloride 93 mmol/L (98-107); Glucose 329 mg/dL (74-99); Non-African American GFR(CKD) >90 (>60 ml/min/1.73 sqM); Potassium 4.1 mmol/L (3.5-5.1); Sodium 128 mmol/L (137-145); Total Bilirubin 0.2 mg/dL (0.2-1.3); Total Protein 6.1 g/dL (6.3-8.2)
--- NOTE | 2021-11-29 09:19 | P.PN ---
Subjective Progress Note Date: 11/28/21 Pietro Ryder, is a 61 year old male who presented to [facility] emergency room with a chief complaint of chest discomfort and shortness of breath that he developed over the last 3 days He was evaluated in the emergency room vital examination on presentation revealed a temperature of 98.2 pulse 70 respiration 20 blood pressure 88/53 pulse ox 99% on room air Laboratory data revealed a white blood count of 8.9 hemoglobin 8.5 platelet count 732 sodium 126 potassium 4.9 chloride 83 BUN 18 creatinine 0.93 glucose level 616 Testing in the emergency room revealed chest x-ray done in the emergency room did not reveal any acute abnormality, EKG revealed sinus rhythm with early repolarization Patient was admitted to medical floor for further evaluation and treatment On 11/26/2021 patient was seen and examined on the medical floor he is alert and oriented 3 in no apparent distress there is no fever or chills no headache or dizziness no chest pain no shortness of breath no cough no nausea or vomiting no abdominal pain no diarrhea no blood in stools no burning with urination no fr equency or urgency and no hematuria. Patient had episodes of hypoglycemia last night, at this time will decrease Levemir to 25 units daily, will continue with sliding scale, will monitor for 24 more hours On 11/27/2021 patient is alert and oriented 3. Dr. Moran been consulted for wound care to bilateral lower extremities patient does following wound care clinic. Plans for EGD and colonoscopy tomorrow per surgical services. Hemoglobin today 8.1. This time patient denies chest pain or shortness of breath. Patient denies nausea vomiting or diarrhea. Patient denies any urinary burning or frequency On 920 04/28/2019 patient was seen and examined on the medical floor he is alert and oriented 3 in no apparent distress hemoglobin is down to 7.9 he was started on IV iron, results of EGD and colonoscopy were reviewed, clinically patient denies any complaints there is no fever or chills no headache or dizziness no chest pain or shortness of breath no cough no nausea or vomiting no abdominal pain no diarrhea and no urinary symptoms Objective - Vital Signs Vital signs: Vital Signs Temp 99 F 11/28/21 13:20 Pulse 90 11/28/21 13:20 Resp 16 11/28/21 13:20 BP 148/75 11/28/21 13:20 Pulse Ox 95 11/28/21 00:00 FiO2 99 11/25/21 01:41 Intake & Output 11/27/21 11/28/21 11/28/21 18:59 06:59 18:59 Intake Total 1950 300 130 Balance 1950 300 130 Intake: IV 100 Intake, IV Titration 150 300 30 Amount Lactated Ringers 1,000 ml 30 @ 20 mls/hr IV .Q24H ERIN Rx#:[id number] Sodium Chloride 0.9% 1, 150 300 000 ml @ 75 mls/hr IV . [id number] ERIN Rx#:[id number] Oral 1800 Other: Voiding Method Toilet Toilet Toilet # Voids 1 1 # Bowel Movements 1 3 1 - Exam In general patient is alert and oriented x 3 in no distress HEENT head normocephalic and atraumatic Neck is supple no JVD no goiter no lymphadenopathy no carotid bruit Chest examination is clear to auscultation no crackles no wheezing Cardiac exam reveals regular heart sounds S1 and S2 no gallops no murmurs Abdomen is soft nontender no organomegaly with normal bowel sounds Extremity exam reveals no edema no cyanosis or clubbing Neurological examination reveals no gross focal deficits - Labs CBC & Chem 7: 11/29/21 08:27 11/29/21 08:27 Labs: Abnormal Lab Results - Last 24 Hours (Table) 11/27/21 11/27/21 11/28/21 Range/Units 16:28 20:22 05:59 RBC (4.30-5.90) m/uL Hgb (13.0-17.5) gm/dL Hct (39.0-53.0) % MCV (80.0-100.0) fL MCH (25.0-35.0) pg MCHC (31.0-37.0) g/dL RDW (11.5-15.5) % Plt Count (150-450) k/uL Sodium (137-145) mmol/L BUN (9-20) mg/dL Creatinine (0.66-1.25) mg/dL Glucose (74-99) mg/dL POC Glucose (mg/dL) 136 H 217 H 118 H (70-110) mg/dL Calcium (8.4-10.2) mg/dL AST (17-59) U/L Total Protein (6.3-8.2) g/dL Albumin (3.5-5.0) g/dL 11/28/21 11/28/21 11/28/21 Range/Units 09:12 09:12 11:46 RBC 3.95 L (4.30-5.90) m/uL Hgb 7.8 L (13.0-17.5) gm/dL Hct 27.6 L (39.0-53.0) % MCV 69.9 L (80.0-100.0) fL MCH 19.7 L (25.0-35.0) pg MCHC 28.2 L (31.0-37.0) g/dL RDW 15.6 H (11.5-15.5) % Plt Count 563 H (150-450) k/uL Sodium 135 L (137-145) mmol/L BUN 4 L (9-20) mg/dL Creatinine 0.49 L (0.66-1.25) mg/dL Glucose 178 H (74-99) mg/dL POC Glucose (mg/dL) 244 H (70-110) mg/dL Calcium 8.1 L (8.4-10.2) mg/dL AST 15 L (17-59) U/L Total Protein 5.8 L (6.3-8.2) g/dL Albumin 2.8 L (3.5-5.0) g/dL Microbiology - Last 24 Hours (Table) 11/25/21 01:40 Blood Culture - Preliminary Blood No Growth after 72 hours 11/24/21 23:56 Blood Culture - Preliminary Blood No Growth after 72 hours Assessment and Plan Plan: Episodes of chest pain and shortness of breath over the last 3 days. Per cardiology atypical chest pain troponins negative 3 no further inpatient workup Anemia with hemoglobin at 8.5 on presentation, this is microcytic anemia with MCV of 69.7 Hyponatremia on presentation. Improving Extreme hyperglycemia was a glucose at 616 Underlying history of insulin-dependent diabetes mellitus Underlying history of chronic lower extremity infection was open ulcers followed at the wound care clinic Underlying history of seizure disorder maintained on Dilantin Underlying history of hyperlipidemia At this time patient is admitted to telemetry floor He was started on IV fluids and on insulin Home medications reviewed and reordered Cardiology consultation requested in regard to chest pain Infectious disease service is consulted Answer EGD and colonoscopy 11/28/2021 Patient counseled in length in regards to taking medications as instructed, he was recently given insulin samples from the office as he stated that he could not afford his medications Workup for anemia initiated
[2021-11-29] MEDS: MULTIVITAMINS, THERA 1 EACH TAB PO SCH (09:57)
[2021-11-29] MEDS: SODIUM FERRIC GLUCONAT-SUCROSE 125 MG in SODIUM CHLORIDE 0.9% 100 ML IVPB SCH (09:57)
[2021-11-29] MEDS: PHENYTOIN SODIUM EXTENDED 100 MG CAP PO SCH ×2 (09:57→20:54)
[2021-11-29] MEDS: KETOROLAC 0.5% OPHTH DROPS 5 ML BTL LEFT EYE SCH ×2 (10:01→20:53)
[2021-11-29] MEDS: prednisoLONE ACETATE 1% OPHTH DROPS 5 ML BTL LEFT EYE SCH ×2 (10:01→20:53)
--- NOTE | 2021-11-29 10:26 | P.PN ---
Subjective Progress Note Date: 11/29/21 Pietro Ryder, is a 61 year old male who presented to [facility] emergency room with a chief complaint of chest discomfort and shortness of breath that he developed over the last 3 days He was evaluated in the emergency room vital examination on presentation revealed a temperature of 98.2 pulse 70 respiration 20 blood pressure 88/53 pulse ox 99% on room air Laboratory data revealed a white blood count of 8.9 hemoglobin 8.5 platelet count 732 sodium 126 potassium 4.9 chloride 83 BUN 18 creatinine 0.93 glucose level 616 Testing in the emergency room revealed chest x-ray done in the emergency room did not reveal any acute abnormality, EKG revealed sinus rhythm with early repolarization Patient was admitted to medical floor for further evaluation and treatment On 11/26/2021 patient was seen and examined on the medical floor he is alert and oriented 3 in no apparent distress there is no fever or chills no headache or dizziness no chest pain no shortness of breath no cough no nausea or vomiting no abdominal pain no diarrhea no blood in stools no burning with urination no fr equency or urgency and no hematuria. Patient had episodes of hypoglycemia last night, at this time will decrease Levemir to 25 units daily, will continue with sliding scale, will monitor for 24 more hours On 11/27/2021 patient is alert and oriented 3. Dr. Moran been consulted for wound care to bilateral lower extremities patient does following wound care clinic. Plans for EGD and colonoscopy tomorrow per surgical services. Hemoglobin today 8.1. This time patient denies chest pain or shortness of breath. Patient denies nausea vomiting or diarrhea. Patient denies any urinary burning or frequency On 920 04/28/2019 patient was seen and examined on the medical floor he is alert and oriented 3 in no apparent distress hemoglobin is down to 7.9 he was started on IV iron, results of EGD and colonoscopy were reviewed, clinically patient denies any complaints there is no fever or chills no headache or dizziness no chest pain or shortness of breath no cough no nausea or vomiting no abdominal pain no diarrhea and no urinary symptoms On 11/29/2021 patient is alert and oriented 3. Hemoglobin improving to 8.1. Sodium low at 128. Patient remains on normal saline at 75. At this time patient denies chest pain or shortness of breath. Patient denies nausea vomiting or diarrhea. Patient denies any urinary burning or frequency Objective - Vital Signs Vital signs: Vital Signs Temp 98.6 F 11/29/21 08:00 Pulse 104 H 11/29/21 08:00 Resp 18 11/29/21 08:00 BP 126/71 11/29/21 08:00 Pulse Ox 96 11/29/21 08:00 FiO2 99 11/25/21 01:41 Intake & Output 11/28/21 11/29/21 11/29/21 18:59 06:59 18:59 Intake Total 430 240 Output Total 175 Balance 430 -175 240 Intake: IV 100 Intake, IV Titration 30 Amount Lactated Ringers 1,000 ml 30 @ 20 mls/hr IV .Q24H [facility] Rx#:[id number] Oral 300 240 Output: Urine 175 Other: Voiding Method Toilet Toilet Toilet # Voids 1 # Bowel Movements 1 - Exam In general patient is alert and oriented x 3 in no distress HEENT head normocephalic and atraumatic Neck is supple no JVD no goiter no lymphadenopathy no carotid bruit Chest examination is clear to auscultation no crackles no wheezing Cardiac exam reveals regular heart sounds S1 and S2 no gallops no murmurs Abdomen is soft nontender no organomegaly with normal bowel sounds Extremity exam reveals no edema no cyanosis or clubbing Neurological examination reveals no gross focal deficits - Labs CBC & Chem 7: 11/29/21 08:27 11/29/21 08:27 Labs: Abnormal Lab Results - Last 24 Hours (Table) 11/28/21 11/28/21 11/28/21 Range/Units 11:46 16:20 20:14 RBC (4.30-5.90) m/uL Hgb (13.0-17.5) gm/dL Hct (39.0-53.0) % MCV (80.0-100.0) fL MCH (25.0-35.0) pg MCHC (31.0-37.0) g/dL RDW (11.5-15.5) % Plt Count (150-450) k/uL Lymphocytes # (1.0-4.8) k/uL Sodium (137-145) mmol/L Chloride (98-107) mmol/L Glucose (74-99) mg/dL POC Glucose (mg/dL) 244 H 286 H 234 H (70-110) mg/dL Calcium (8.4-10.2) mg/dL AST (17-59) U/L Total Protein (6.3-8.2) g/dL Albumin (3.5-5.0) g/dL 11/29/21 11/29/21 11/29/21 Range/Units 05:56 08:27 08:27 RBC 4.10 L (4.30-5.90) m/uL Hgb 8.1 L (13.0-17.5) gm/dL Hct 28.5 L (39.0-53.0) % MCV 69.4 L (80.0-100.0) fL MCH 19.7 L (25.0-35.0) pg MCHC 28.3 L (31.0-37.0) g/dL RDW 15.7 H (11.5-15.5) % Plt Count 603 H (150-450) k/uL Lymphocytes # 0.6 L (1.0-4.8) k/uL Sodium 128 L (137-145) mmol/L Chloride 93 L (98-107) mmol/L Glucose 329 H (74-99) mg/dL POC Glucose (mg/dL) 357 H (70-110) mg/dL Calcium 8.3 L (8.4-10.2) mg/dL AST 16 L (17-59) U/L Total Protein 6.1 L (6.3-8.2) g/dL Albumin 3.0 L (3.5-5.0) g/dL Microbiology - Last 24 Hours (Table) 11/25/21 01:40 Blood Culture - Preliminary Blood No Growth after 96 hours 11/24/21 23:56 Blood Culture - Preliminary Blood No Growth after 96 hours Assessment and Plan Plan: Episodes of chest pain and shortness of breath over the last 3 days. Per cardiology atypical chest pain troponins negative 3 no further inpatient workup Anemia with hemoglobin at 8.5 on presentation, this is microcytic anemia with MCV of 69.7 Hyponatremia on presentation. Improving Extreme hyperglycemia was a glucose at 616 Underlying history of insulin-dependent diabetes mellitus Underlying history of chronic lower extremity infection was open ulcers followed at the wound care clinic Underlying history of seizure disorder maintained on Dilantin Underlying history of hyperlipidemia At this time patient is admitted to telemetry floor He was started on IV fluids and on insulin Home medications reviewed and reordered Cardiology consultation requested in regard to chest pain Infectious disease service is consulted s/p post EGD and colonoscopy on 11/28/2021 Patient counseled in length in regards to taking medications as instructed, he was recently given insulin samples from the office as he stated that he could not afford his medications Workup for anemia initiated
[2021-11-29 11:43] LABS: Glucose,Whole Blood 275 mg/dL (70-110)
--- NOTE | 2021-11-29 12:51 | P.PN ---
Subjective Progress Note Date: 11/29/21 CHIEF COMPLAINT: Anemia HISTORY OF PRESENT ILLNESS: Patient is lying in bed comfortably. He denies abdominal pain. Denies any nausea vomiting. He is tolerating diet. He is status post EGD which revealed antral gastritis and small hiatal hernia with no evidence of upper GI bleed. Colonoscopy was not completed due to poor bowel prep. But there was evidence of diverticulosis in the sigmoid colon. Patient did have low-grade temp of 1.6 early this morning and mildly tachycardic heart rate 104. WBC is 8.5 hemoglobin is stable at 8.1 platelets 603 sodium 128 potassium 4.1 creatinine 0.67. Nephrology and consult due to hyponatremia Patient seen and examined with Dr. Gonzalez PHYSICAL EXAM: VITAL SIGNS: Reviewed. GENERAL: Well-developed in no acute distress. HEENT: No sclera icterus. Extraocular movements grossly intact. Moist buccal mucosa. Head is atraumatic, normocephalic. ABDOMEN: Soft. Nondistended. Nontender. NEUROLOGIC: Alert and oriented. Cranial nerves II through XII grossly intact. ASSESSMENT: 1. Microcytic anemia with no active bleeding status post EGD with antral gastritis and small hiatal hernia. Colonoscopy showed diverticulosis with poor bowel prep 2. Iron deficiency 3. Shortness of breath PLAN: -Continue regular diet -Continue IV iron -continue Protonix -Patient can be discharged from surgical standpoint when medically clear Physician General Service Officer note has been reviewed by physician. Signing provider agrees with the documented findings, assessment, and plan of care. Objective - Vital Signs Vital signs: Vital Signs Temp 98.6 F 11/29/21 08:00 Pulse 104 H 11/29/21 08:00 Resp 18 11/29/21 08:00 BP 126/71 11/29/21 08:00 Pulse Ox 96 11/29/21 08:00 FiO2 99 11/25/21 01:41 Intake & Output 11/28/21 11/29/21 11/29/21 18:59 06:59 18:59 Intake Total 430 240 Output Total 175 Balance 430 -175 240 Intake: IV 100 Intake, IV Titration 30 Amount Lactated Ringers 1,000 ml 30 @ 20 mls/hr IV .Q24H [facility] Rx#:[id number] Oral 300 240 Output: Urine 175 Other: Voiding Method Toilet Toilet Toilet # Voids 1 # Bowel Movements 1 - Labs CBC & Chem 7: 11/29/21 08:27 11/29/21 08:27 Labs: Abnormal Lab Results - Last 24 Hours (Table) 11/28/21 11/28/21 11/29/21 Range/Units 16:20 20:14 05:56 RBC (4.30-5.90) m/uL Hgb (13.0-17.5) gm/dL Hct (39.0-53.0) % MCV (80.0-100.0) fL MCH (25.0-35.0) pg MCHC (31.0-37.0) g/dL RDW (11.5-15.5) % Plt Count (150-450) k/uL Lymphocytes # (1.0-4.8) k/uL Sodium (137-145) mmol/L Chloride (98-107) mmol/L Glucose (74-99) mg/dL POC Glucose (mg/dL) 286 H 234 H 357 H (70-110) mg/dL Calcium (8.4-10.2) mg/dL AST (17-59) U/L Total Protein (6.3-8.2) g/dL Albumin (3.5-5.0) g/dL 11/29/21 11/29/21 11/29/21 Range/Units 08:27 08:27 11:29 RBC 4.10 L (4.30-5.90) m/uL Hgb 8.1 L (13.0-17.5) gm/dL Hct 28.5 L (39.0-53.0) % MCV 69.4 L (80.0-100.0) fL MCH 19.7 L (25.0-35.0) pg MCHC 28.3 L (31.0-37.0) g/dL RDW 15.7 H (11.5-15.5) % Plt Count 603 H (150-450) k/uL Lymphocytes # 0.6 L (1.0-4.8) k/uL Sodium 128 L (137-145) mmol/L Chloride 93 L (98-107) mmol/L Glucose 329 H (74-99) mg/dL POC Glucose (mg/dL) 275 H (70-110) mg/dL Calcium 8.3 L (8.4-10.2) mg/dL AST 16 L (17-59) U/L Total Protein 6.1 L (6.3-8.2) g/dL Albumin 3.0 L (3.5-5.0) g/dL Microbiology - Last 24 Hours (Table) 11/25/21 01:40 Blood Culture - Preliminary Blood No Growth after 96 hours 11/24/21 23:56 Blood Culture - Preliminary Blood No Growth after 96 hours
--- NOTE | 2021-11-29 13:07 | P.NPCON ---
History of Present Illness - Reason for Consult hyponatremia - History of Present Illness Patient is a 61-year-old male who has a history of type 2 diabetes, gastroesophageal reflux disease and hyperlipidemia. He was admitted to the hospital with complaints of shortness of breath and chest discomfort. He was found to be anemic with hemoglobin of 8.5 g/dL. Sodium was low at 126 on admission. Patient was started on IV fluids and serum sodium had improved to 135. This morning sodium dropped back down to 128. Patient had EGD yesterday which did not show any evidence of GI bleed. Patient states he has been voiding. He denies any significant pain nausea vomiting or diarrhea. Blood pressure is not low. 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 History of Any Multi-Drug Resistant Organisms: MRSA Date of last positivie culture/infection: 12/29/19 MDRO Source:: Left Leg Past Surgical History: Orthopedic Surgery, Tonsillectomy Additional Past Surgical History / Comment(s): 01/23/20 angiogram L leg, cancer ous tumor removed from left wrist, colonoscopy, L eye surgery for strabismus. Past Anesthesia/Blood Transfusion Reactions: No Reported Reaction Past Psychological History: Depression Smoking Status: Never smoker Past Alcohol Use History: None Reported Past Drug Use History: None Reported - Past Family History Father Family Medical History: Myocardial Infarction (MT) Additional Family Medical History / Comment(s): Father of a MT at the age of 57yrs. Mother Family Medical History: Cancer Additional Family Medical History / Comment(s): Mother from cancer at the age of 61 or 62 . Pt cannot recall type of cancer. Sister(s) Family Medical History: Diabetes Mellitus Additional Family Medical History / Comment(s): Sister had DM type 1. She is . Medications and Allergies Home Medications Medication Instructions Recorded Confirmed Type Omeprazole 20 mg PO AC-BID 06/13/17 11/25/21 History Pioglitazone HCl [Actos] 15 mg PO DAILY 10/03/18 11/25/21 History Diphenox-Atrop 2.5-0.025 mg 1 tab PO BID PRN 11/17/19 11/25/21 History [Lomotil] Rosuvastatin [Crestor] 10 mg PO HS 05/15/20 11/25/21 History Latanoprost/Pf [Latanoprost 0.005% 1 drop BOTH EYES HS 06/15/21 11/25/21 History Eye Drop] Phenytoin Sodium Extended 60 mg PO BID 07/14/21 11/25/21 History [Dilantin] Acetaminophen Tab [Tylenol] 325 mg PO Q6HR PRN 07/17/21 11/25/21 History Acetaminophen-Codeine 300-30mg 1 tab PO TID PRN 07/17/21 11/25/21 History [Tylenol w/codeine #3] Ondansetron Odt [Zofran ODT] 4 mg PO Q8HR PRN #12 tab 07/29/21 11/25/21 Rx Ketorolac 0.5% Ophth Soln [Acular 1 drops LEFT EYE BID 08/30/21 11/25/21 History 0.5%] Mupirocin 2% Oint [Bactroban 2% 1 applic TOPICAL DAILY PRN 09/23/21 11/25/21 History Oint] Insulin Glargine [Lantus Vial] 50 unit SQ DAILY 11/25/21 11/25/21 History Insulin Lispro [Admelog] See Protocol SQ AC-TID 11/25/21 11/25/21 History Triamcinolone 0.5% Cream [Kenalog 1 applic TOPICAL DAILY PRN 11/25/21 11/25/21 History 0.5% Cream] Allergies Allergy/AdvReac Type Severity Reaction Status Date / Time No Known Allergies Allergy Verified 11/25/21 06:21 Physical Exam Vitals: Vital Signs Temp Pulse Resp BP Pulse Ox 11/29/21 08:00 98.6 F 104 H 18 126/71 96 11/29/21 04:00 100.6 F H 108 H 18 146/72 94 L 11/29/21 02:00 118 H 18 11/29/21 00:00 100.6 F H 118 H 18 135/67 94 L 11/28/21 22:12 120 H 16 11/28/21 19:56 98.6 F 120 H 16 157/74 11/28/21 16:00 98.5 F 109 H 18 157/95 11/28/21 13:20 99 F 90 16 148/75 Intake and Output 11/28/21 11/29/21 11/29/21 22:59 06:59 14:59 Intake Total 120 240 Output Total 175 Balance 120 -175 240 Intake: Oral 120 240 Output: Urine 175 Other: Voiding Method Toilet Toilet Toilet # Voids 1 Patient is comfortable awake alert oriented 3. Not in any acute distress. 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 Hyponatremia, currently euvolemic. Possible SIADH. Check urine osmolality and urine sodium. Hold IV fluids. Repeat sodium now. Rule out urine retention 2. Anemia with iron deficiency status post EGD and colonoscopy with no evidence of active bleeding 3. Low-grade fever, UA is negative for UTI. 4. Hypertension Plan: Hold IV fluids Repeat sodium now Check urine sodium and urine osmolality Check TSH level Patient is encouraged to increase oral intake of protein. Thank you for the consultation. We'll continue to follow the patient with you during his hospitalization
[2021-11-29 16:56] LABS: Glucose,Whole Blood 216 mg/dL (70-110)
[2021-11-29 18:57] LABS: Glucose,Whole Blood 336 mg/dL (70-110)
[2021-11-29] MEDS: ATORVASTATIN 20 MG TAB PO SCH (20:52)
[2021-11-29] MEDS: LATANOPROST 0.005% OPHTH DROPS 2.5 ML BTL BOTH EYES SCH (20:53)
[2021-11-30] MEDS: SODIUM CHLORIDE 0.9% 1,000 ML IV SCH (00:42)
[2021-11-30] MEDS ORDERED: TOLVAPTAN 15 MG 1/2 TABLET PO ONE (01:33)
[2021-11-30] MEDS: DIPHENOX-ATROP 2.5-0.025 MG 1 EACH TAB PO PRN ×2 (03:45→09:50)
[2021-11-30 05:52] LABS: Glucose,Whole Blood 351 mg/dL (70-110)
[2021-11-30] MEDS: LACTATED RINGERS 1,000 ML IV SCH (06:16)
[2021-11-30] MEDS: PANTOPRAZOLE 40 MG TABLET PO SCH (06:32)
[2021-11-30] MEDS: INSULIN ASPART (NovoLOG) 100 UNIT/ML VIAL SQ SCH ×4 (06:32→20:45)
[2021-11-30] MEDS: INSULIN DETEMIR (LEVEMIR) 100 UNIT/ML SYR SQ SCH (06:32)
[2021-11-30] MEDS: NON FORMULARY DRUG (Phenytoin Sodium Extended [Dilantin] 30 MG Capsule) PO SCH ×2 (09:41→20:46)
[2021-11-30] MEDS: MULTIVITAMINS, THERA 1 EACH TAB PO SCH (09:50)
[2021-11-30] MEDS: PHENYTOIN SODIUM EXTENDED 100 MG CAP PO SCH ×2 (09:50→20:45)
[2021-11-30] MEDS: SODIUM FERRIC GLUCONAT-SUCROSE 125 MG in SODIUM CHLORIDE 0.9% 100 ML IVPB SCH (09:50)
[2021-11-30] MEDS: prednisoLONE ACETATE 1% OPHTH DROPS 5 ML BTL LEFT EYE SCH ×2 (09:51→20:45)
[2021-11-30] MEDS: KETOROLAC 0.5% OPHTH DROPS 5 ML BTL LEFT EYE SCH ×2 (09:51→20:46)
[2021-11-30 09:55] LABS: Basophils # (A) 0.1 k/uL (0-0.2); Basophils % (A) 1 %; Eosinophils # (A) 0.1 k/uL (0-0.7); Eosinophils % (A) 1 %; HCT 27.9 % (39.0-53.0); HGB 7.8 gm/dL (13.0-17.5); Hypochromasia Marked; Lymphocytes # (A) 0.8 k/uL (1.0-4.8); Lymphocytes % (A) 11 %; MCH 19.6 pg (25.0-35.0); MCHC 28.1 g/dL (31.0-37.0); MCV 69.8 fL (80.0-100.0); Mean Platelet Volume 6.4; Microcytosis Marked; Monocytes # (A) 0.5 k/uL (0-1.0); Monocytes % (A) 6 %; Neutrophils # (A) 6.1 k/uL (1.3-7.7); Neutrophils % (A) 80 %; Platelet Count 563 k/uL (150-450); RBC 3.99 m/uL (4.30-5.90); WBC 7.6 k/uL (3.8-10.6)
[2021-11-30 10:05] LABS: ALT 9 U/L (4-49); AST 15 U/L (17-59); African American GFR (CKD) >90 (>60 ml/min/1.73 sqM); Albumin 2.8 g/dL (3.5-5.0); Alkaline Phosphatase 91 U/L (38-126); Anion Gap 7 mmol/L; Blood Urea Nitrogen 13 mg/dL (9-20); Calcium 8.2 mg/dL (8.4-10.2); Carbon Dioxide 27 mmol/L (22-30); Chloride 95 mmol/L (98-107); Glucose 327 mg/dL (74-99); Non-African American GFR(CKD) >90 (>60 ml/min/1.73 sqM); Potassium 4.2 mmol/L (3.5-5.1); Sodium 129 mmol/L (137-145); Total Bilirubin 0.2 mg/dL (0.2-1.3)
--- NOTE | 2021-11-30 10:59 | P.PN ---
Subjective Patient is seen in follow-up for hyponatremia. Sodium level better today. Blood sugar over 300. Oral intake has been fair. No vomiting or diarrhea. Hemodynamically stable. Vital signs are stable. General: Awake. No acute distress. HEENT: Head exam is unremarkable. LUNGS: Breath sounds decreased. HEART: Rate and Rhythm are regular. ABDOMEN: Soft, no distention. EXTREMITITES: No edema. Objective - Vital Signs Vital signs: Vital Signs Temp 98.2 F 11/30/21 08:00 Pulse 91 11/30/21 08:00 Resp 18 11/30/21 08:00 BP 132/72 11/30/21 08:00 Pulse Ox 95 11/30/21 08:00 FiO2 99 11/25/21 01:41 Intake & Output 11/29/21 11/30/21 11/30/21 18:59 06:59 18:59 Intake Total 480 600 Balance 480 600 Weight 43.091 kg Intake: Oral 480 600 Other: Voiding Method Toilet Toilet Toilet # Voids 2 - Labs CBC & Chem 7: 11/30/21 09:13 11/30/21 09:13 Labs: Abnormal Lab Results - Last 24 Hours (Table) 11/29/21 11/29/21 11/29/21 Range/Units 11:29 13:12 16:35 RBC (4.30-5.90) m/uL Hgb (13.0-17.5) gm/dL Hct (39.0-53.0) % MCV (80.0-100.0) fL MCH (25.0-35.0) pg MCHC (31.0-37.0) g/dL RDW (11.5-15.5) % Plt Count (150-450) k/uL Lymphocytes # (1.0-4.8) k/uL Sodium 127 L (137-145) mmol/L Chloride (98-107) mmol/L Creatinine (0.66-1.25) mg/dL Glucose (74-99) mg/dL POC Glucose (mg/dL) 275 H 216 H (70-110) mg/dL Calcium (8.4-10.2) mg/dL AST (17-59) U/L Total Protein (6.3-8.2) g/dL Albumin (3.5-5.0) g/dL 11/29/21 11/30/21 11/30/21 Range/Units 18:56 05:50 09:13 RBC 3.99 L (4.30-5.90) m/uL Hgb 7.8 L (13.0-17.5) gm/dL Hct 27.9 L (39.0-53.0) % MCV 69.8 L (80.0-100.0) fL MCH 19.6 L (25.0-35.0) pg MCHC 28.1 L (31.0-37.0) g/dL RDW 16.0 H (11.5-15.5) % Plt Count 563 H (150-450) k/uL Lymphocytes # 0.8 L (1.0-4.8) k/uL Sodium (137-145) mmol/L Chloride (98-107) mmol/L Creatinine (0.66-1.25) mg/dL Glucose (74-99) mg/dL POC Glucose (mg/dL) 336 H 351 H (70-110) mg/dL Calcium (8.4-10.2) mg/dL AST (17-59) U/L Total Protein (6.3-8.2) g/dL Albumin (3.5-5.0) g/dL 11/30/21 Range/Units 09:13 RBC (4.30-5.90) m/uL Hgb (13.0-17.5) gm/dL Hct (39.0-53.0) % MCV (80.0-100.0) fL MCH (25.0-35.0) pg MCHC (31.0-37.0) g/dL RDW (11.5-15.5) % Plt Count (150-450) k/uL Lymphocytes # (1.0-4.8) k/uL Sodium 129 L (137-145) mmol/L Chloride 95 L (98-107) mmol/L Creatinine 0.64 L (0.66-1.25) mg/dL Glucose 327 H (74-99) mg/dL POC Glucose (mg/dL) (70-110) mg/dL Calcium 8.2 L (8.4-10.2) mg/dL AST 15 L (17-59) U/L Total Protein 6.0 L (6.3-8.2) g/dL Albumin 2.8 L (3.5-5.0) g/dL Microbiology - Last 24 Hours (Table) 11/25/21 01:40 Blood Culture - Preliminary Blood No Growth after 120 hours 11/24/21 23:56 Blood Culture - Preliminary Blood No Growth after 120 hours Assessment and Plan Plan: Assessment: 1. Hyponatremia secondary to SIADH. Also component of hypertonicity secondary to hyperglycemia. Sodium level 129 today. Urine sodium 85 and urine osmolality 640. 2. Benign hypertension. Stable. 3. Anemia. Iron deficiency noted. Receiving IV iron. 4. GI bleed status post EGD which showed antral gastritis. Hemoglobin 8.1. No active bleeding. 5. Diabetes mellitus. Plan: Encourage oral intake. 1200 mL fluid restriction. Samsca not given due to interaction with phenytoin. Blood sugar control. Repeat labs in the morning. Check TSH.
[2021-11-30 12:23] LABS: Glucose,Whole Blood 286 mg/dL (70-110)
--- NOTE | 2021-11-30 13:17 | P.PN ---
Subjective Progress Note Date: 11/28/21 Principal diagnosis: Right diabetic foot wound and left posterior leg wound Patient is a 61-year-old male with a past medical history significant for diabetes mellitus patient did have a chronic nonhealing wound to bilateral lower extremity especially to the right foot plantar aspect and left posterior leg and a previous history of left big toe amputation for diabetic foot infection. on today's evaluation that is 11/28/2021, the patient denies having any fever o r chills, the patient is breathing comfortably denies any chest pain or shortness of breath or cough no abdominal pain or any worsening pain to the right foot or left leg wound area Objective - Vital Signs Vital signs: Vital Signs Temp 99 F 11/28/21 13:20 Pulse 90 11/28/21 13:20 Resp 16 11/28/21 13:20 BP 148/75 11/28/21 13:20 Pulse Ox 95 11/28/21 00:00 FiO2 99 11/25/21 01:41 Intake & Output 11/27/21 11/28/21 11/28/21 18:59 06:59 18:59 Intake Total 1950 300 130 Balance 1950 300 130 Intake: IV 100 Intake, IV Titration 150 300 30 Amount Lactated Ringers 1,000 ml 30 @ 20 mls/hr IV .Q24H [facility] Rx#:[id number] Sodium Chloride 0.9% 1, 150 300 000 ml @ 75 mls/hr IV . [id number] [facility] Rx#:[id number] Oral 1800 Other: Voiding Method Toilet Toilet Toilet # Voids 1 1 # Bowel Movements 1 3 1 - Exam GENERAL DESCRIPTION: A middle-age male lying in bed in no distress RESPIRATORY SYSTEM: Unlabored breathing , decreased breath sounds at bases HEART: S1 S2 regular rate and rhythm , ABDOMEN: Soft , no tenderness EXTREMITIES: Right foot and left posterior leg wound is currently dressed - Labs CBC & Chem 7: 11/30/21 09:13 11/30/21 09:13 Labs: Abnormal Lab Results - Last 24 Hours (Table) 11/27/21 11/27/21 11/28/21 Range/Units 16:28 20:22 05:59 RBC (4.30-5.90) m/uL Hgb (13.0-17.5) gm/dL Hct (39.0-53.0) % MCV (80.0-100.0) fL MCH (25.0-35.0) pg MCHC (31.0-37.0) g/dL RDW (11.5-15.5) % Plt Count (150-450) k/uL Sodium (137-145) mmol/L BUN (9-20) mg/dL Creatinine (0.66-1.25) mg/dL Glucose (74-99) mg/dL POC Glucose (mg/dL) 136 H 217 H 118 H (70-110) mg/dL Calcium (8.4-10.2) mg/dL AST (17-59) U/L Total Protein (6.3-8.2) g/dL Albumin (3.5-5.0) g/dL 11/28/21 11/28/21 11/28/21 Range/Units 09:12 09:12 11:46 RBC 3.95 L (4.30-5.90) m/uL Hgb 7.8 L (13.0-17.5) gm/dL Hct 27.6 L (39.0-53.0) % MCV 69.9 L (80.0-100.0) fL MCH 19.7 L (25.0-35.0) pg MCHC 28.2 L (31.0-37.0) g/dL RDW 15.6 H (11.5-15.5) % Plt Count 563 H (150-450) k/uL Sodium 135 L (137-145) mmol/L BUN 4 L (9-20) mg/dL Creatinine 0.49 L (0.66-1.25) mg/dL Glucose 178 H (74-99) mg/dL POC Glucose (mg/dL) 244 H (70-110) mg/dL Calcium 8.1 L (8.4-10.2) mg/dL AST 15 L (17-59) U/L Total Protein 5.8 L (6.3-8.2) g/dL Albumin 2.8 L (3.5-5.0) g/dL Microbiology - Last 24 Hours (Table) 11/25/21 01:40 Blood Culture - Preliminary Blood No Growth after 72 hours 11/24/21 23:56 Blood Culture - Preliminary Blood No Growth after 72 hours Assessment and Plan (1) Diabetic ulcer of right foot Current Visit: No Status: Acute Code(s): E11.621 - TYPE 2 DIABETES MELLITUS WITH FOOT ULCER; L97.519 - NON-PRS CHRONIC ULCER OTH PRT RIGHT FOOT W UNSP SEVERITY SNOMED Code(s): 212302521 (2) Ulcer of left lower leg Current Visit: No Status: Acute Code(s): L97.929 - NON-PRS CHRONIC ULC UNSP PRT OF L LOW LEG W UNSP SEVERITY SNOMED Code(s): 476215663 Plan: 1patient with right diabetic foot wounds currently the wound looks clean with no evidence of any slough tissue or surrounding redness recommend local wound care. 2- patient with left posterior leg wound, the patient wound looks clean with no evidence of any slough tissue or surrounding redness recommend local wound care. 2we will apply Aquacel silver dressing to the wound change every 48 hour. Time with Patient: Less than 30
--- NOTE | 2021-11-30 13:18 | P.PN ---
Subjective Progress Note Date: 11/29/21 Principal diagnosis: Right diabetic foot wound and left posterior leg wound Patient is a 61-year-old male with a past medical history significant for diabetes mellitus patient did have a chronic nonhealing wound to bilateral lower extremity especially to the right foot plantar aspect and left posterior leg and a previous history of left big toe amputation for diabetic foot infection. on today's evaluation that is 11/29/2021, the patient continues to be afebrile, the patient is breathing comfortably denies any chest pain or shortness of breath or cough, the patient denies abdominal pain or any worsening pain to the right foot or left leg wound area Objective - Vital Signs Vital signs: Vital Signs Temp 98.4 F 11/29/21 12:00 Pulse 102 H 11/29/21 12:00 Resp 18 11/29/21 12:00 BP 136/71 11/29/21 12:00 Pulse Ox 95 11/29/21 12:00 FiO2 99 11/25/21 01:41 Intake & Output 11/28/21 11/29/21 11/29/21 18:59 06:59 18:59 Intake Total 430 240 Output Total 175 Balance 430 -175 240 Weight 43.091 kg Intake: IV 100 Intake, IV Titration 30 Amount Lactated Ringers 1,000 ml 30 @ 20 mls/hr IV .Q24H [facility] Rx#:[id number] Oral 300 240 Output: Urine 175 Other: Voiding Method Toilet Toilet Toilet # Voids 1 # Bowel Movements 1 - Exam GENERAL DESCRIPTION: A middle-age male lying in bed in no distress RESPIRATORY SYSTEM: Unlabored breathing , decreased breath sounds at bases HEART: S1 S2 regular rate and rhythm , ABDOMEN: Soft , no tenderness EXTREMITIES: Right foot and left posterior leg wound is currently dressed - Labs CBC & Chem 7: 11/30/21 09:13 11/30/21 09:13 Labs: Abnormal Lab Results - Last 24 Hours (Table) 11/28/21 11/28/21 11/29/21 Range/Units 16:20 20:14 05:56 RBC (4.30-5.90) m/uL Hgb (13.0-17.5) gm/dL Hct (39.0-53.0) % MCV (80.0-100.0) fL MCH (25.0-35.0) pg MCHC (31.0-37.0) g/dL RDW (11.5-15.5) % Plt Count (150-450) k/uL Lymphocytes # (1.0-4.8) k/uL Sodium (137-145) mmol/L Chloride (98-107) mmol/L Glucose (74-99) mg/dL POC Glucose (mg/dL) 286 H 234 H 357 H (70-110) mg/dL Calcium (8.4-10.2) mg/dL AST (17-59) U/L Total Protein (6.3-8.2) g/dL Albumin (3.5-5.0) g/dL 11/29/21 11/29/21 11/29/21 Range/Units 08:27 08:27 11:29 RBC 4.10 L (4.30-5.90) m/uL Hgb 8.1 L (13.0-17.5) gm/dL Hct 28.5 L (39.0-53.0) % MCV 69.4 L (80.0-100.0) fL MCH 19.7 L (25.0-35.0) pg MCHC 28.3 L (31.0-37.0) g/dL RDW 15.7 H (11.5-15.5) % Plt Count 603 H (150-450) k/uL Lymphocytes # 0.6 L (1.0-4.8) k/uL Sodium 128 L (137-145) mmol/L Chloride 93 L (98-107) mmol/L Glucose 329 H (74-99) mg/dL POC Glucose (mg/dL) 275 H (70-110) mg/dL Calcium 8.3 L (8.4-10.2) mg/dL AST 16 L (17-59) U/L Total Protein 6.1 L (6.3-8.2) g/dL Albumin 3.0 L (3.5-5.0) g/dL 11/29/21 Range/Units 13:12 RBC (4.30-5.90) m/uL Hgb (13.0-17.5) gm/dL Hct (39.0-53.0) % MCV (80.0-100.0) fL MCH (25.0-35.0) pg MCHC (31.0-37.0) g/dL RDW (11.5-15.5) % Plt Count (150-450) k/uL Lymphocytes # (1.0-4.8) k/uL Sodium 127 L (137-145) mmol/L Chloride (98-107) mmol/L Glucose (74-99) mg/dL POC Glucose (mg/dL) (70-110) mg/dL Calcium (8.4-10.2) mg/dL AST (17-59) U/L Total Protein (6.3-8.2) g/dL Albumin (3.5-5.0) g/dL Microbiology - Last 24 Hours (Table) 11/25/21 01:40 Blood Culture - Preliminary Blood No Growth after 96 hours 11/24/21 23:56 Blood Culture - Preliminary Blood No Growth after 96 hours Assessment and Plan (1) Diabetic ulcer of right foot Current Visit: No Status: Acute Code(s): E11.621 - TYPE 2 DIABETES MELLITUS WITH FOOT ULCER; L97.519 - NON-PRS CHRONIC ULCER OTH PRT RIGHT FOOT W UNSP SEVER ITY SNOMED Code(s): 476507271 (2) Ulcer of left lower leg Current Visit: No Status: Acute Code(s): L97.929 - NON-PRS CHRONIC ULC UNSP PRT OF L LOW LEG W UNSP SEVERITY SNOMED Code(s): 103911569 Plan: 1patient with right diabetic foot wounds currently the wound looks clean with no evidence of any slough tissue or surrounding redness recommend local wound care. 2- patient with left posterior leg wound, the patient wound looks clean with no evidence of any slough tissue or surrounding redness recommend local wound care. 3we will apply Aquacel silver dressing to the wound change every 48 hour. 4- no need for systemic antibiotic therapy Time with Patient: Less than 30
--- NOTE | 2021-11-30 13:19 | P.PN ---
Subjective Progress Note Date: 11/30/21 Principal diagnosis: Right diabetic foot wound and left posterior leg wound Patient is a 61-year-old male with a past medical history significant for diabetes mellitus patient did have a chronic nonhealing wound to bilateral lower extremity especially to the right foot plantar aspect and left posterior leg and a previous history of left big toe amputation for diabetic foot infection. on today's evaluation that is 11/30/2021, the patient remains to be afebrile, t he patient is breathing comfortably on room air, the patient denies any chest pain or shortness of breath or cough, the patient denies abdominal pain or any worsening pain to the right foot or left leg wound area Objective - Vital Signs Vital signs: Vital Signs Temp 98.3 F 11/30/21 12:00 Pulse 99 11/30/21 12:00 Resp 18 11/30/21 12:00 BP 123/69 11/30/21 12:00 Pulse Ox 98 11/30/21 12:00 FiO2 99 11/25/21 01:41 Intake & Output 11/29/21 11/30/21 11/30/21 18:59 06:59 18:59 Intake Total 480 1200 Balance 480 1200 Weight 43.091 kg Intake: Oral 480 1200 Other: Voiding Method Toilet Toilet Toilet # Voids 2 - Exam GENERAL DESCRIPTION: A middle-age male lying in bed in no distress RESPIRATORY SYSTEM: Unlabored breathing , decreased breath sounds at bases HEART: S1 S2 regular rate and rhythm , ABDOMEN: Soft , no tenderness EXTREMITIES: Right foot and left posterior leg wound is currently dressed - Labs CBC & Chem 7: 11/30/21 09:13 11/30/21 09:13 Labs: Abnormal Lab Results - Last 24 Hours (Table) 11/29/21 11/29/21 11/29/21 Range/Units 13:12 16:35 18:56 RBC (4.30-5.90) m/uL Hgb (13.0-17.5) gm/dL Hct (39.0-53.0) % MCV (80.0-100.0) fL MCH (25.0-35.0) pg MCHC (31.0-37.0) g/dL RDW (11.5-15.5) % Plt Count (150-450) k/uL Lymphocytes # (1.0-4.8) k/uL Sodium 127 L (137-145) mmol/L Chloride (98-107) mmol/L Creatinine (0.66-1.25) mg/dL Glucose (74-99) mg/dL POC Glucose (mg/dL) 216 H 336 H (70-110) mg/dL Calcium (8.4-10.2) mg/dL AST (17-59) U/L Total Protein (6.3-8.2) g/dL Albumin (3.5-5.0) g/dL 11/30/21 11/30/21 11/30/21 Range/Units 05:50 09:13 09:13 RBC 3.99 L (4.30-5.90) m/uL Hgb 7.8 L (13.0-17.5) gm/dL Hct 27.9 L (39.0-53.0) % MCV 69.8 L (80.0-100.0) fL MCH 19.6 L (25.0-35.0) pg MCHC 28.1 L (31.0-37.0) g/dL RDW 16.0 H (11.5-15.5) % Plt Count 563 H (150-450) k/uL Lymphocytes # 0.8 L (1.0-4.8) k/uL Sodium 129 L (137-145) mmol/L Chloride 95 L (98-107) mmol/L Creatinine 0.64 L (0.66-1.25) mg/dL Glucose 327 H (74-99) mg/dL POC Glucose (mg/dL) 351 H (70-110) mg/dL Calcium 8.2 L (8.4-10.2) mg/dL AST 15 L (17-59) U/L Total Protein 6.0 L (6.3-8.2) g/dL Albumin 2.8 L (3.5-5.0) g/dL 11/30/21 Range/Units 12:20 RBC (4.30-5.90) m/uL Hgb (13.0-17.5) gm/dL Hct (39.0-53.0) % MCV (80.0-100.0) fL MCH (25.0-35.0) pg MCHC (31.0-37.0) g/dL RDW (11.5-15.5) % Plt Count (150-450) k/uL Lymphocytes # (1.0-4.8) k/uL Sodium (137-145) mmol/L Chloride (98-107) mmol/L Creatinine (0.66-1.25) mg/dL Glucose (74-99) mg/dL POC Glucose (mg/dL) 286 H (70-110) mg/dL Calcium (8.4-10.2) mg/dL AST (17-59) U/L Total Protein (6.3-8.2) g/dL Albumin (3.5-5.0) g/dL Microbiology - Last 24 Hours (Table) 11/25/21 01:40 Blood Culture - Preliminary Blood No Growth after 120 hours 11/24/21 23:56 Blood Culture - Preliminary Blood No Growth after 120 hours Assessment and Plan (1) Diabetic ulcer of right foot Current Visit: No Status: Acute Code(s): E11.621 - TYPE 2 DIABETES MELLITUS WITH FOOT ULCER; L97.519 - NON-PRS CHRONIC ULCER OTH PRT RIGHT FOOT W UNSP SEVERITY SNOMED Code(s): 133390047 (2) Ulcer of left lower leg Current Visit: No Status: Acute Code(s): L97.929 - NON-PRS CHRONIC ULC UNSP PRT OF L LOW LEG W UNSP SEVERITY SNOMED Code(s): 679059565 Plan: 1patient with right diabetic foot wounds with no cellulitis 2- patient with left posterior leg wound no cellulitis 3local wound care to continue Aquacel silver dressing change every 48 hour.
--- NOTE | 2021-11-30 13:58 | P.PN ---
Subjective Progress Note Date: 11/30/21 Pietro Ryder, is a 61 year old male who presented to [facility] emergency room with a chief complaint of chest discomfort and shortness of breath that he developed over the last 3 days He was evaluated in the emergency room vital examination on presentation revealed a temperature of 98.2 pulse 70 respiration 20 blood pressure 88/53 pulse ox 99% on room air Laboratory data revealed a white blood count of 8.9 hemoglobin 8.5 platelet count 732 sodium 126 potassium 4.9 chloride 83 BUN 18 creatinine 0.93 glucose level 616 Testing in the emergency room revealed chest x-ray done in the emergency room did not reveal any acute abnormality, EKG revealed sinus rhythm with early repolarization Patient was admitted to medical floor for further evaluation and treatment On 11/26/2021 patient was seen and examined on the medical floor he is alert and oriented 3 in no apparent distress there is no fever or chills no headache or dizziness no chest pain no shortness of breath no cough no nausea or vomiting no abdominal pain no diarrhea no blood in stools no burning with urination no fr equency or urgency and no hematuria. Patient had episodes of hypoglycemia last night, at this time will decrease Levemir to 25 units daily, will continue with sliding scale, will monitor for 24 more hours On 11/27/2021 patient is alert and oriented 3. Dr. Moran been consulted for wound care to bilateral lower extremities patient does following wound care clinic. Plans for EGD and colonoscopy tomorrow per surgical services. Hemoglobin today 8.1. This time patient denies chest pain or shortness of breath. Patient denies nausea vomiting or diarrhea. Patient denies any urinary burning or frequency On 920 04/28/2019 patient was seen and examined on the medical floor he is alert and oriented 3 in no apparent distress hemoglobin is down to 7.9 he was started on IV iron, results of EGD and colonoscopy were reviewed, clinically patient denies any complaints there is no fever or chills no headache or dizziness no chest pain or shortness of breath no cough no nausea or vomiting no abdominal pain no diarrhea and no urinary symptoms On 11/29/2021 patient is alert and oriented 3. Hemoglobin improving to 8.1. Sodium low at 128. Patient remains on normal saline at 75. At this time patient denies chest pain or shortness of breath. Patient denies nausea vomiting or diarrhea. Patient denies any urinary burning or frequency. On 12/01/2019 patient was seen and examined on the medical floor he is alert and oriented 3 in no apparent distress hemoglobin is down to 7.8 he is maintained on IV iron, clinically patient denies any complaints there is no fever or chills no headache or dizziness no chest pain or shortness of breath no cough no nausea or vomiting no abdominal pain no diarrhea and no urinary symptoms, He has evidence of hyponatremia, input from nephrology reviewed Objective - Vital Signs Vital signs: Vital Signs Temp 98.2 F 11/30/21 08:00 Pulse 91 11/30/21 08:00 Resp 18 11/30/21 08:00 BP 132/72 11/30/21 08:00 Pulse Ox 95 11/30/21 08:00 FiO2 99 11/25/21 01:41 Intake & Output 11/29/21 11/30/21 11/30/21 18:59 06:59 18:59 Intake Total 480 600 Balance 480 600 Weight 43.091 kg Intake: Oral 480 600 Other: Voiding Method Toilet Toilet Toilet # Voids 2 - Exam In general patient is alert and oriented x 3 in no distress HEENT head normocephalic and atraumatic Neck is supple no JVD no goiter no lymphadenopathy no carotid bruit Chest examination is clear to auscultation no crackles no wheezing Cardiac exam reveals regular heart sounds S1 and S2 no gallops no murmurs Abdomen is soft nontender no organomegaly with normal bowel sounds Extremity exam reveals no edema no cyanosis or clubbing Neurological examination reveals no gross focal deficits - Labs CBC & Chem 7: 11/30/21 09:13 11/30/21 09:13 Labs: Abnormal Lab Results - Last 24 Hours (Table) 11/29/21 11/29/21 11/29/21 Range/Units 11:29 13:12 16:35 RBC (4.30-5.90) m/uL Hgb (13.0-17.5) gm/dL Hct (39.0-53.0) % MCV (80.0-100.0) fL MCH (25.0-35.0) pg MCHC (31.0-37.0) g/dL RDW (11.5-15.5) % Plt Count (150-450) k/uL Lymphocytes # (1.0-4.8) k/uL Sodium 127 L (137-145) mmol/L Chloride (98-107) mmol/L Creatinine (0.66-1.25) mg/dL Glucose (74-99) mg/dL POC Glucose (mg/dL) 275 H 216 H (70-110) mg/dL Calcium (8.4-10.2) mg/dL AST (17-59) U/L Total Protein (6.3-8.2) g/dL Albumin (3.5-5.0) g/dL 11/29/21 11/30/21 11/30/21 Range/Units 18:56 05:50 09:13 RBC 3.99 L (4.30-5.90) m/uL Hgb 7.8 L (13.0-17.5) gm/dL Hct 27.9 L (39.0-53.0) % MCV 69.8 L (80.0-100.0) fL MCH 19.6 L (25.0-35.0) pg MCHC 28.1 L (31.0-37.0) g/dL RDW 16.0 H (11.5-15.5) % Plt Count 563 H (150-450) k/uL Lymphocytes # 0.8 L (1.0-4.8) k/uL Sodium (137-145) mmol/L Chloride (98-107) mmol/L Creatinine (0.66-1.25) mg/dL Glucose (74-99) mg/dL POC Glucose (mg/dL) 336 H 351 H (70-110) mg/dL Calcium (8.4-10.2) mg/dL AST (17-59) U/L Total Protein (6.3-8.2) g/dL Albumin (3.5-5.0) g/dL 11/30/21 Range/Units 09:13 RBC (4.30-5.90) m/uL Hgb (13.0-17.5) gm/dL Hct (39.0-53.0) % MCV (80.0-100.0) fL MCH (25.0-35.0) pg MCHC (31.0-37.0) g/dL RDW (11.5-15.5) % Plt Count (150-450) k/uL Lymphocytes # (1.0-4.8) k/uL Sodium 129 L (137-145) mmol/L Chloride 95 L (98-107) mmol/L Creatinine 0.64 L (0.66-1.25) mg/dL Glucose 327 H (74-99) mg/dL POC Glucose (mg/dL) (70-110) mg/dL Calcium 8.2 L (8.4-10.2) mg/dL AST 15 L (17-59) U/L Total Protein 6.0 L (6.3-8.2) g/dL Albumin 2.8 L (3.5-5.0) g/dL Microbiology - Last 24 Hours (Table) 11/25/21 01:40 Blood Culture - Preliminary Blood No Growth after 120 hours 11/24/21 23:56 Blood Culture - Preliminary Blood No Growth after 120 hours Assessment and Plan Plan: Episodes of chest pain and shortness of breath over the last 3 days. Per cardiology atypical chest pain troponins negative 3 no further inpatient workup Anemia with hemoglobin at 8.5 on presentation, this is microcytic anemia with MCV of 69.7 Hyponatremia on presentation. Improving Extreme hyperglycemia was a glucose at 616 Underlying history of insulin-dependent diabetes mellitus Underlying history of chronic lower extremity infection was open ulcers followed at the wound care clinic Underlying history of seizure disorder maintained on Dilantin Underlying history of hyperlipidemia At this time patient is admitted to telemetry floor He was started on IV fluids and on insulin Home medications reviewed and reordered Cardiology consultation requested in regard to chest pain Infectious disease service is consulted s/p post EGD and colonoscopy on 11/28/2021 Patient counseled in length in regards to taking medications as instructed, he was recently given insulin samples from the office as he stated that he could not afford his medications Workup for anemia initiated
[2021-11-30 16:38] LABS: Glucose,Whole Blood 238 mg/dL (70-110)
[2021-11-30 20:33] LABS: Glucose,Whole Blood 208 mg/dL (70-110)
[2021-11-30] MEDS: ATORVASTATIN 20 MG TAB PO SCH (20:45)
[2021-11-30] MEDS: LATANOPROST 0.005% OPHTH DROPS 2.5 ML BTL BOTH EYES SCH (20:46)
[2021-12-01] MEDS: LACTATED RINGERS 1,000 ML IV SCH (06:20)
[2021-12-01] MEDS: PANTOPRAZOLE 40 MG TABLET PO SCH (06:30)
[2021-12-01] MEDS: DIPHENOX-ATROP 2.5-0.025 MG 1 EACH TAB PO PRN ×2 (06:30→20:55)
[2021-12-01 06:32] LABS: Glucose,Whole Blood 376 mg/dL (70-110)
[2021-12-01] MEDS: INSULIN DETEMIR (LEVEMIR) 100 UNIT/ML SYR SQ SCH (06:43)
[2021-12-01] MEDS: INSULIN ASPART (NovoLOG) 100 UNIT/ML VIAL SQ SCH ×4 (06:43→22:05)
[2021-12-01] MEDS: NON FORMULARY DRUG (Phenytoin Sodium Extended [Dilantin] 30 MG Capsule) PO SCH ×2 (07:39→20:55)
[2021-12-01 08:53] LABS: African American GFR (CKD) >90 (>60 ml/min/1.73 sqM); Anion Gap 9 mmol/L; Blood Urea Nitrogen 16 mg/dL (9-20); Calcium 8.7 mg/dL (8.4-10.2); Carbon Dioxide 27 mmol/L (22-30); Chloride 97 mmol/L (98-107); Glucose 365 mg/dL (74-99); Magnesium 1.7 mg/dL (1.6-2.3); Non-African American GFR(CKD) >90 (>60 ml/min/1.73 sqM); Potassium 4.1 mmol/L (3.5-5.1); Sodium 133 mmol/L (137-145)
[2021-12-01] MEDS: MULTIVITAMINS, THERA 1 EACH TAB PO SCH (09:36)
[2021-12-01] MEDS: prednisoLONE ACETATE 1% OPHTH DROPS 5 ML BTL LEFT EYE SCH ×2 (09:36→20:55)
[2021-12-01] MEDS: KETOROLAC 0.5% OPHTH DROPS 5 ML BTL LEFT EYE SCH ×2 (09:36→20:55)
[2021-12-01] MEDS: SODIUM FERRIC GLUCONAT-SUCROSE 125 MG in SODIUM CHLORIDE 0.9% 100 ML IVPB SCH (09:36)
[2021-12-01] MEDS: PHENYTOIN SODIUM EXTENDED 100 MG CAP PO SCH ×2 (09:36→20:55)
--- NOTE | 2021-12-01 09:54 | P.PN ---
Subjective Patient is seen in follow-up for hyponatremia. Sodium level improved. Blood sugar over 300. Oral intake has been fair. No vomiting or diarrhea. Hemodynamically stable. No active complaints. Vital signs are stable. General: Awake. No acute distress. HEENT: Head exam is unremarkable. LUNGS: Breath sounds decreased. HEART: Rate and Rhythm are regular. ABDOMEN: Soft, no distention. EXTREMITITES: No edema. Objective - Vital Signs Vital signs: Vital Signs Temp 98.3 F 12/01/21 08:00 Pulse 92 12/01/21 08:00 Resp 18 12/01/21 08:00 BP 119/67 12/01/21 08:00 Pulse Ox 96 12/01/21 08:00 FiO2 99 11/25/21 01:41 Intake & Output 11/30/21 12/01/21 12/01/21 18:59 06:59 18:59 Intake Total 1200 118 Balance 1200 118 Intake: Oral 1200 118 Other: Voiding Method Toilet Toilet # Voids 1 1 # Bowel Movements 1 - Labs CBC & Chem 7: 11/30/21 09:13 12/01/21 07:44 Labs: Abnormal Lab Results - Last 24 Hours (Table) 11/30/21 11/30/21 11/30/21 Range/Units 09:13 09:13 12:20 RBC 3.99 L (4.30-5.90) m/uL Hgb 7.8 L (13.0-17.5) gm/dL Hct 27.9 L (39.0-53.0) % MCV 69.8 L (80.0-100.0) fL MCH 19.6 L (25.0-35.0) pg MCHC 28.1 L (31.0-37.0) g/dL RDW 16.0 H (11.5-15.5) % Plt Count 563 H (150-450) k/uL Lymphocytes # 0.8 L (1.0-4.8) k/uL Sodium 129 L (137-145) mmol/L Chloride 95 L (98-107) mmol/L Creatinine 0.64 L (0.66-1.25) mg/dL Glucose 327 H (74-99) mg/dL POC Glucose (mg/dL) 286 H (70-110) mg/dL Calcium 8.2 L (8.4-10.2) mg/dL AST 15 L (17-59) U/L Total Protein 6.0 L (6.3-8.2) g/dL Albumin 2.8 L (3.5-5.0) g/dL 11/30/21 11/30/21 12/01/21 Range/Units 16:35 20:32 06:27 RBC (4.30-5.90) m/uL Hgb (13.0-17.5) gm/dL Hct (39.0-53.0) % MCV (80.0-100.0) fL MCH (25.0-35.0) pg MCHC (31.0-37.0) g/dL RDW (11.5-15.5) % Plt Count (150-450) k/uL Lymphocytes # (1.0-4.8) k/uL Sodium (137-145) mmol/L Chloride (98-107) mmol/L Creatinine (0.66-1.25) mg/dL Glucose (74-99) mg/dL POC Glucose (mg/dL) 238 H 208 H 376 H (70-110) mg/dL Calcium (8.4-10.2) mg/dL AST (17-59) U/L Total Protein (6.3-8.2) g/dL Albumin (3.5-5.0) g/dL 12/01/21 Range/Units 07:44 RBC (4.30-5.90) m/uL Hgb (13.0-17.5) gm/dL Hct (39.0-53.0) % MCV (80.0-100.0) fL MCH (25.0-35.0) pg MCHC (31.0-37.0) g/dL RDW (11.5-15.5) % Plt Count (150-450) k/uL Lymphocytes # (1.0-4.8) k/uL Sodium 133 L (137-145) mmol/L Chloride 97 L (98-107) mmol/L Creatinine (0.66-1.25) mg/dL Glucose 365 H (74-99) mg/dL POC Glucose (mg/dL) (70-110) mg/dL Calcium (8.4-10.2) mg/dL AST (17-59) U/L Total Protein (6.3-8.2) g/dL Albumin (3.5-5.0) g/dL Microbiology - Last 24 Hours (Table) 11/25/21 01:40 Blood Culture - Final Blood No Growth after 144 hours 11/24/21 23:56 Blood Culture - Final Blood No Growth after 144 hours Assessment and Plan Plan: Assessment: 1. Hyponatremia secondary to SIADH. Also component of hypertonicity secondary to hyperglycemia. Sodium level 133 today. Urine sodium 85 and urine osmolality 640. TSH normal. 2. Benign hypertension. Stable. 3. Anemia. Iron deficiency noted. Receiving IV iron. 4. GI bleed status post EGD which showed antral gastritis. Hemoglobin 7.8 yesterday. No active bleeding. 5. Diabetes mellitus. Plan: Encourage oral intake. 1200 mL fluid restriction. Blood sugar control. Repeat labs in the morning.
--- NOTE | 2021-12-01 10:53 | P.PN ---
Subjective Progress Note Date: 12/01/21 Pietro Ryder, is a 61 year old male who presented to [facility] emergency room with a chief complaint of chest discomfort and shortness of breath that he developed over the last 3 days He was evaluated in the emergency room vital examination on presentation revealed a temperature of 98.2 pulse 70 respiration 20 blood pressure 88/53 pulse ox 99% on room air Laboratory data revealed a white blood count of 8.9 hemoglobin 8.5 platelet count 732 sodium 126 potassium 4.9 chloride 83 BUN 18 creatinine 0.93 glucose level 616 Testing in the emergency room revealed chest x-ray done in the emergency room did not reveal any acute abnormality, EKG revealed sinus rhythm with early repolarization Patient was admitted to medical floor for further evaluation and treatment On 11/26/2021 patient was seen and examined on the medical floor he is alert and oriented 3 in no apparent distress there is no fever or chills no headache or dizziness no chest pain no shortness of breath no cough no nausea or vomiting no abdominal pain no diarrhea no blood in stools no burning with urination no fr equency or urgency and no hematuria. Patient had episodes of hypoglycemia last night, at this time will decrease Levemir to 25 units daily, will continue with sliding scale, will monitor for 24 more hours On 11/27/2021 patient is alert and oriented 3. Dr. Moran been consulted for wound care to bilateral lower extremities patient does following wound care clinic. Plans for EGD and colonoscopy tomorrow per surgical services. Hemoglobin today 8.1. This time patient denies chest pain or shortness of breath. Patient denies nausea vomiting or diarrhea. Patient denies any urinary burning or frequency On 920 04/28/2019 patient was seen and examined on the medical floor he is alert and oriented 3 in no apparent distress hemoglobin is down to 7.9 he was started on IV iron, results of EGD and colonoscopy were reviewed, clinically patient denies any complaints there is no fever or chills no headache or dizziness no chest pain or shortness of breath no cough no nausea or vomiting no abdominal pain no diarrhea and no urinary symptoms On 11/29/2021 patient is alert and oriented 3. Hemoglobin improving to 8.1. Sodium low at 128. Patient remains on normal saline at 75. At this time patient denies chest pain or shortness of breath. Patient denies nausea vomiting or diarrhea. Patient denies any urinary burning or frequency. On 12/01/2019 patient was seen and examined on the medical floor he is alert and oriented 3 in no apparent distress hemoglobin is down to 7.8 he is maintained on IV iron, clinically patient denies any complaints there is no fever or chills no headache or dizziness no chest pain or shortness of breath no cough no nausea or vomiting no abdominal pain no diarrhea and no urinary symptoms, He has evidence of hyponatremia, input from nephrology reviewed On 12/01/2021 patient is alert and oriented 3. sodium improving to 133. Patient denies chest pain or shortness of breath. Patient denies nausea vomiting or diarrhea. Patient denies any urinary burning or frequency Objective - Vital Signs Vital signs: Vital Signs Temp 98.3 F 12/01/21 08:00 Pulse 92 12/01/21 08:00 Resp 18 12/01/21 08:00 BP 119/67 12/01/21 08:00 Pulse Ox 96 12/01/21 08:00 FiO2 99 11/25/21 01:41 Intake & Output 11/30/21 12/01/21 12/01/21 18:59 06:59 18:59 Intake Total 1200 118 Balance 1200 118 Intake: Oral 1200 118 Other: Voiding Method Toilet Toilet Toilet # Voids 1 1 # Bowel Movements 1 - Exam In general patient is alert and oriented x 3 in no distress HEENT head normocephalic and atraumatic Neck is supple no JVD no goiter no lymphadenopathy no carotid bruit Chest examination is clear to auscultation no crackles no wheezing Cardiac exam reveals regular heart sounds S1 and S2 no gallops no murmurs Abdomen is soft nontender no organomegaly with normal bowel sounds Extremity exam reveals no edema no cyanosis or clubbing Neurological examination reveals no gross focal deficits - Labs CBC & Chem 7: 11/30/21 09:13 12/01/21 07:44 Labs: Abnormal Lab Results - Last 24 Hours (Table) 11/30/21 11/30/21 11/30/21 Range/Units 12:20 16:35 20:32 Sodium (137-145) mmol/L Chloride (98-107) mmol/L Glucose (74-99) mg/dL POC Glucose (mg/dL) 286 H 238 H 208 H (70-110) mg/dL 12/01/21 12/01/21 Range/Units 06:27 07:44 Sodium 133 L (137-145) mmol/L Chloride 97 L (98-107) mmol/L Glucose 365 H (74-99) mg/dL POC Glucose (mg/dL) 376 H (70-110) mg/dL Microbiology - Last 24 Hours (Table) 11/25/21 01:40 Blood Culture - Final Blood No Growth after 144 hours 11/24/21 23:56 Blood Culture - Final Blood No Growth after 144 hours Assessment and Plan Plan: Episodes of chest pain and shortness of breath over the last 3 days. Per cardiology atypical chest pain troponins negative 3 no further inpatient workup Anemia with hemoglobin at 8.5 on presentation, this is microcytic anemia with MCV of 69.7 Hyponatremia on presentation. Improving Extreme hyperglycemia was a glucose at 616 Underlying history of insulin-dependent diabetes mellitus Underlying history of chronic lower extremity infection was open ulcers followed at the wound care clinic Underlying history of seizure disorder maintained on Dilantin Underlying history of hyperlipidemia Hyponatremia. Nephrology services following At this time patient is admitted to telemetry floor He was started on IV fluids and on insulin Home medications reviewed and reordered Cardiology consultation requested in regard to chest pain Infectious disease service is consulted s/p post EGD and colonoscopy on 11/28/2021 Patient counseled in length in regards to taking medications as instructed, he was recently given insulin samples from the office as he stated that he could not afford his medications Workup for anemia initiated
[2021-12-01 12:11] LABS: Glucose,Whole Blood 310 mg/dL (70-110)
[2021-12-01 17:22] LABS: Glucose,Whole Blood 225 mg/dL (70-110)
[2021-12-01] MEDS: LATANOPROST 0.005% OPHTH DROPS 2.5 ML BTL BOTH EYES SCH (20:55)
[2021-12-01] MEDS: ATORVASTATIN 20 MG TAB PO SCH (20:55)
[2021-12-01 21:41] LABS: Glucose,Whole Blood 250 mg/dL (70-110)
[2021-12-02] MEDS: LACTATED RINGERS 1,000 ML IV SCH (05:43)
[2021-12-02 06:01] LABS: Glucose,Whole Blood 354 mg/dL (70-110)
[2021-12-02] MEDS: INSULIN DETEMIR (LEVEMIR) 100 UNIT/ML SYR SQ SCH (06:23)
[2021-12-02] MEDS: INSULIN ASPART (NovoLOG) 100 UNIT/ML VIAL SQ SCH ×4 (06:23→20:58)
[2021-12-02] MEDS: PANTOPRAZOLE 40 MG TABLET PO SCH (06:23)
[2021-12-02] MEDS: prednisoLONE ACETATE 1% OPHTH DROPS 5 ML BTL LEFT EYE SCH ×2 (08:34→20:59)
[2021-12-02] MEDS: KETOROLAC 0.5% OPHTH DROPS 5 ML BTL LEFT EYE SCH ×2 (08:34→20:59)
[2021-12-02] MEDS: NON FORMULARY DRUG (Phenytoin Sodium Extended [Dilantin] 30 MG Capsule) PO SCH ×2 (08:35→20:59)
[2021-12-02] MEDS: MULTIVITAMINS, THERA 1 EACH TAB PO SCH (08:35)
[2021-12-02] MEDS: PHENYTOIN SODIUM EXTENDED 100 MG CAP PO SCH ×2 (08:35→20:58)
[2021-12-02 09:09] LABS: Anisocytosis Slight; Basophils % (A) 0 %; Eosinophils % (A) 0 %; HGB 7.5 gm/dL (13.0-17.5); Hypochromasia Marked; Lymphocytes # (A) 1.1 k/uL (1.0-4.8); Lymphocytes % (A) 11 %; MCH 20.1 pg (25.0-35.0); MCHC 28.7 g/dL (31.0-37.0); MCV 69.9 fL (80.0-100.0); Mean Platelet Volume 6.5; Microcytosis Marked; Monocytes # (A) 0.6 k/uL (0-1.0); Monocytes % (A) 6 %; Neutrophils # (A) 7.9 k/uL (1.3-7.7); Neutrophils % (A) 81 %; Platelet Count 608 k/uL (150-450); RBC 3.72 m/uL (4.30-5.90); RDW 16.6 % (11.5-15.5); WBC 9.8 k/uL (3.8-10.6)
--- NOTE | 2021-12-02 09:35 | P.PN ---
Subjective Patient is seen in follow-up for hyponatremia. Sodium level improved. Morning labs pending. Oral intake has been fair. No vomiting or diarrhea. Hemodynamically stable. No active complaints. Vital signs are stable. General: Awake. No acute distress. HEENT: Head exam is unremarkable. LUNGS: Breath sounds decreased. HEART: Rate and Rhythm are regular. ABDOMEN: Soft, no distention. EXTREMITITES: No edema. Objective - Vital Signs Vital signs: Vital Signs Temp 99.4 F 12/02/21 08:30 Pulse 98 12/02/21 08:30 Resp 18 12/02/21 08:30 BP 124/64 12/02/21 08:30 Pulse Ox 94 L 12/02/21 08:30 FiO2 99 11/25/21 01:41 Intake & Output 12/01/21 12/02/21 12/02/21 18:59 06:59 18:59 Intake Total 354 Output Total 500 Balance 354 -500 Intake: Oral 354 Output: Stool 500 Other: Voiding Method Toilet Toilet # Voids 1 # Bowel Movements 1 - Labs CBC & Chem 7: 12/02/21 08:16 12/01/21 07:44 Labs: Abnormal Lab Results - Last 24 Hours (Table) 12/01/21 12/01/21 12/01/21 Range/Units 11:47 17:00 21:40 RBC (4.30-5.90) m/uL Hgb (13.0-17.5) gm/dL Hct (39.0-53.0) % MCV (80.0-100.0) fL MCH (25.0-35.0) pg MCHC (31.0-37.0) g/dL RDW (11.5-15.5) % Plt Count (150-450) k/uL Neutrophils # (1.3-7.7) k/uL POC Glucose (mg/dL) 310 H 225 H 250 H (70-110) mg/dL 12/02/21 12/02/21 Range/Units 06:00 08:16 RBC 3.72 L (4.30-5.90) m/uL Hgb 7.5 L (13.0-17.5) gm/dL Hct 26.0 L (39.0-53.0) % MCV 69.9 L (80.0-100.0) fL MCH 20.1 L (25.0-35.0) pg MCHC 28.7 L (31.0-37.0) g/dL RDW 16.6 H (11.5-15.5) % Plt Count 608 H (150-450) k/uL Neutrophils # 7.9 H (1.3-7.7) k/uL POC Glucose (mg/dL) 354 H (70-110) mg/dL Assessment and Plan Plan: Assessment: 1. Hyponatremia secondary to SIADH. Also component of hypertonicity secondary to hyperglycemia. Sodium level 133 yesterday. Urine sodium 85 and urine osmolality 640. TSH normal. 2. Benign hypertension. Stable. 3. Anemia. Iron deficiency noted. Status post IV iron. 4. GI bleed status post EGD which showed antral gastritis. Hemoglobin 7.5 today. No active bleeding. 5. Diabetes mellitus. Plan: Encourage oral intake. 1200 mL fluid restriction. Blood sugar control. Follow-up morning labs.
[2021-12-02 09:46] LABS: African American GFR (CKD) >90 (>60 ml/min/1.73 sqM); Anion Gap 10 mmol/L; Blood Urea Nitrogen 13 mg/dL (9-20); Calcium 8.2 mg/dL (8.4-10.2); Carbon Dioxide 25 mmol/L (22-30); Chloride 97 mmol/L (98-107); Glucose 300 mg/dL (74-99); Non-African American GFR(CKD) >90 (>60 ml/min/1.73 sqM); Potassium 4.2 mmol/L (3.5-5.1); Sodium 132 mmol/L (137-145)
[2021-12-02] MEDS: SODIUM FERRIC GLUCONAT-SUCROSE 125 MG in SODIUM CHLORIDE 0.9% 100 ML IVPB SCH (10:44)
--- NOTE | 2021-12-02 11:01 | P.PN ---
Subjective Progress Note Date: 12/02/21 CHIEF COMPLAINT: Anemia HISTORY OF PRESENT ILLNESS: Patient is lying in bed comfortably. He denies abdominal pain. Denies any nausea vomiting. He is tolerating diet. He is status post EGD which revealed antral gastritis and small hiatal hernia with no evidence of upper GI bleed. Colonoscopy was not completed due to poor bowel prep. But there was evidence of diverticulosis in the sigmoid colon. Patient did have a temp of 101 yesterday. Had mild tachycardic. Patient reports that he is feeling better today. WBC 9.8 hemoglobin 7.5 sodium is 132 potassium is 4.2 creatinine 0.63 glucose 300 magnesium 1.6 C. diff negative. Medicine service has consulted hematology in regards to patient's anemia. Infectious disease following regards to patient's multiple wounds.. Patient seen and examined with Dr. Gonzalez PHYSICAL EXAM: VITAL SIGNS: Reviewed. GENERAL: Well-developed in no acute distress. HEENT: No sclera icterus. Extraocular movements grossly intact. Moist buccal mucosa. Head is atraumatic, normocephalic. ABDOMEN: Soft. Nondistended. Nontender. NEUROLOGIC: Alert and oriented. Cranial nerves II through XII grossly intact. ASSESSMENT: 1. Microcytic anemia with no active bleeding status post EGD with antral gastritis and small hiatal hernia. Colonoscopy showed diverticulosis with poor bowel prep 2. Iron deficiency 3. Shortness of breath 4. Hypomagnesemia PLAN: -Continue regular diet -continue Protonix -Patient receiving magnesium supplement Physician [employer] note has been reviewed by physician. Signing provider agrees with the documented findings, assessment, and plan of care. Objective - Vital Signs Vital signs: Vital Signs Temp 99.4 F 12/02/21 08:30 Pulse 98 12/02/21 10:27 Resp 18 12/02/21 10:27 BP 124/64 12/02/21 08:30 Pulse Ox 94 L 12/02/21 08:30 FiO2 99 11/25/21 01:41 Intake & Output 12/01/21 12/02/21 12/02/21 18:59 06:59 18:59 Intake Total 354 180 Output Total 500 500 Balance 354 -500 -320 Weight 43.091 kg Intake: Oral 354 180 Output: Stool 500 500 Other: Voiding Method Toilet Toilet Toilet # Voids 1 # Bowel Movements 1 - Labs CBC & Chem 7: 12/02/21 08:16 12/02/21 08:16 Labs: Abnormal Lab Results - Last 24 Hours (Table) 12/01/21 12/01/21 12/01/21 Range/Units 11:47 17:00 21:40 RBC (4.30-5.90) m/uL Hgb (13.0-17.5) gm/dL Hct (39.0-53.0) % MCV (80.0-100.0) fL MCH (25.0-35.0) pg MCHC (31.0-37.0) g/dL RDW (11.5-15.5) % Plt Count (150-450) k/uL Neutrophils # (1.3-7.7) k/uL Sodium (137-145) mmol/L Chloride (98-107) mmol/L Creatinine (0.66-1.25) mg/dL Glucose (74-99) mg/dL POC Glucose (mg/dL) 310 H 225 H 250 H (70-110) mg/dL Calcium (8.4-10.2) mg/dL 12/02/21 12/02/21 12/02/21 Range/Units 06:00 08:16 08:16 RBC 3.72 L (4.30-5.90) m/uL Hgb 7.5 L (13.0-17.5) gm/dL Hct 26.0 L (39.0-53.0) % MCV 69.9 L (80.0-100.0) fL MCH 20.1 L (25.0-35.0) pg MCHC 28.7 L (31.0-37.0) g/dL RDW 16.6 H (11.5-15.5) % Plt Count 608 H (150-450) k/uL Neutrophils # 7.9 H (1.3-7.7) k/uL Sodium 132 L (137-145) mmol/L Chloride 97 L (98-107) mmol/L Creatinine 0.63 L (0.66-1.25) mg/dL Glucose 300 H (74-99) mg/dL POC Glucose (mg/dL) 354 H (70-110) mg/dL Calcium 8.2 L (8.4-10.2) mg/dL Microbiology - Last 24 Hours (Table) 12/02/21 05:00 Urine Culture - Preliminary Urine,Voided
[2021-12-02] MEDS: MAGNESIUM SULFATE-D5W PMX 1 GM in DEXTROSE/WATER 1 100ML.BAG IVPB SCH ×2 (11:39→15:01)
[2021-12-02 11:46] LABS: Glucose,Whole Blood 280 mg/dL (70-110)
[2021-12-02 16:25] LABS: Glucose,Whole Blood 309 mg/dL (70-110)
--- NOTE | 2021-12-02 17:22 | P.PN ---
Subjective Progress Note Date: 12/02/21 Pietro Ryder, is a 61 year old male who presented to [facility] emergency room with a chief complaint of chest discomfort and shortness of breath that he developed over the last 3 days He was evaluated in the emergency room vital examination on presentation revealed a temperature of 98.2 pulse 70 respiration 20 blood pressure 88/53 pulse ox 99% on room air Laboratory data revealed a white blood count of 8.9 hemoglobin 8.5 platelet count 732 sodium 126 potassium 4.9 chloride 83 BUN 18 creatinine 0.93 glucose level 616 Testing in the emergency room revealed chest x-ray done in the emergency room did not reveal any acute abnormality, EKG revealed sinus rhythm with early repolarization Patient was admitted to medical floor for further evaluation and treatment On 11/26/2021 patient was seen and examined on the medical floor he is alert and oriented 3 in no apparent distress there is no fever or chills no headache or dizziness no chest pain no shortness of breath no cough no nausea or vomiting no abdominal pain no diarrhea no blood in stools no burning with urination no fr equency or urgency and no hematuria. Patient had episodes of hypoglycemia last night, at this time will decrease Levemir to 25 units daily, will continue with sliding scale, will monitor for 24 more hours On 11/27/2021 patient is alert and oriented 3. Dr. Moran been consulted for wound care to bilateral lower extremities patient does following wound care clinic. Plans for EGD and colonoscopy tomorrow per surgical services. Hemoglobin today 8.1. This time patient denies chest pain or shortness of breath. Patient denies nausea vomiting or diarrhea. Patient denies any urinary burning or frequency On 920 04/28/2019 patient was seen and examined on the medical floor he is alert and oriented 3 in no apparent distress hemoglobin is down to 7.9 he was started on IV iron, results of EGD and colonoscopy were reviewed, clinically patient denies any complaints there is no fever or chills no headache or dizziness no chest pain or shortness of breath no cough no nausea or vomiting no abdominal pain no diarrhea and no urinary symptoms On 11/29/2021 patient is alert and oriented 3. Hemoglobin improving to 8.1. Sodium low at 128. Patient remains on normal saline at 75. At this time patient denies chest pain or shortness of breath. Patient denies nausea vomiting or diarrhea. Patient denies any urinary burning or frequency. On 11/30/2021 patient was seen and examined on the medical floor he is alert and oriented 3 in no apparent distress hemoglobin is down to 7.8 he is maintained on IV iron, clinically patient denies any complaints there is no fever or chills no headache or dizziness no chest pain or shortness of breath no cough no nausea or vomiting no abdominal pain no diarrhea and no urinary symptoms, He has evidence of hyponatremia, input from nephrology reviewed On 12/01/2021 patient is alert and oriented 3. sodium improving to 133. Patient denies chest pain or shortness of breath. Patient denies nausea vomiting or diarrhea. Patient denies any urinary burning or frequency. On 12/02/2021 patient was seen and examined on the medical floor he is alert and oriented 3 in no apparent distress there is no fever or chills no headache or dizziness no chest pain no shortness of breath no cough no nausea or vomiting no abdominal pain no diarrhea and no urinary symptoms, glucose level is well- controlled on that and regimen, patient is still having significant anemia with hemoglobin down to 7.5 despite daily dose of IV iron at this time will consult hematology for further management Objective - Vital Signs Vital signs: Vital Signs Temp 99.5 F 12/02/21 16:31 Pulse 96 12/02/21 16:31 Resp 18 12/02/21 16:31 BP 124/66 12/02/21 16:31 Pulse Ox 96 12/02/21 16:31 FiO2 99 11/25/21 01:41 Intake & Output 12/01/21 12/02/21 12/02/21 18:59 06:59 18:59 Intake Total 354 360 Output Total 500 1000 Balance 354 -500 -640 Weight 43.091 kg Intake: Oral 354 360 Output: Stool 500 1000 Other: Voiding Method Toilet Toilet Toilet # Voids 1 # Bowel Movements 1 - Exam In general patient is alert and oriented x 3 in no distress HEENT head normocephalic and atraumatic Neck is supple no JVD no goiter no lymphadenopathy no carotid bruit Chest examination is clear to auscultation no crackles no wheezing Cardiac exam reveals regular heart sounds S1 and S2 no gallops no murmurs Abdomen is soft nontender no organomegaly with normal bowel sounds Extremity exam reveals no edema no cyanosis or clubbing Neurological examination reveals no gross focal deficits - Labs CBC & Chem 7: 12/02/21 08:16 12/02/21 08:16 Labs: Abnormal Lab Results - Last 24 Hours (Table) 12/01/21 12/01/21 12/02/21 Range/Units 17:00 21:40 06:00 RBC (4.30-5.90) m/uL Hgb (13.0-17.5) gm/dL Hct (39.0-53.0) % MCV (80.0-100.0) fL MCH (25.0-35.0) pg MCHC (31.0-37.0) g/dL RDW (11.5-15.5) % Plt Count (150-450) k/uL Neutrophils # (1.3-7.7) k/uL Sodium (137-145) mmol/L Chloride (98-107) mmol/L Creatinine (0.66-1.25) mg/dL Glucose (74-99) mg/dL POC Glucose (mg/dL) 225 H 250 H 354 H (70-110) mg/dL Calcium (8.4-10.2) mg/dL 12/02/21 12/02/21 12/02/21 Range/Units 08:16 08:16 11:45 RBC 3.72 L (4.30-5.90) m/uL Hgb 7.5 L (13.0-17.5) gm/dL Hct 26.0 L (39.0-53.0) % MCV 69.9 L (80.0-100.0) fL MCH 20.1 L (25.0-35.0) pg MCHC 28.7 L (31.0-37.0) g/dL RDW 16.6 H (11.5-15.5) % Plt Count 608 H (150-450) k/uL Neutrophils # 7.9 H (1.3-7.7) k/uL Sodium 132 L (137-145) mmol/L Chloride 97 L (98-107) mmol/L Creatinine 0.63 L (0.66-1.25) mg/dL Glucose 300 H (74-99) mg/dL POC Glucose (mg/dL) 280 H (70-110) mg/dL Calcium 8.2 L (8.4-10.2) mg/dL 12/02/21 Range/Units 16:24 RBC (4.30-5.90) m/uL Hgb (13.0-17.5) gm/dL Hct (39.0-53.0) % MCV (80.0-100.0) fL MCH (25.0-35.0) pg MCHC (31.0-37.0) g/dL RDW (11.5-15.5) % Plt Count (150-450) k/uL Neutrophils # (1.3-7.7) k/uL Sodium (137-145) mmol/L Chloride (98-107) mmol/L Creatinine (0.66-1.25) mg/dL Glucose (74-99) mg/dL POC Glucose (mg/dL) 309 H (70-110) mg/dL Calcium (8.4-10.2) mg/dL Microbiology - Last 24 Hours (Table) 12/02/21 05:00 Urine Culture - Preliminary Urine,Voided Assessment and Plan Plan: Episodes of chest pain and shortness of breath over the last 3 days. Per cardiology atypical chest pain troponins negative 3 no further inpatient workup Anemia with hemoglobin at 8.5 on presentation, this is microcytic anemia with MCV of 69.7 Hyponatremia on presentation. Improving Extreme hyperglycemia was a glucose at 616 Underlying history of insulin-dependent diabetes mellitus Underlying history of chronic lower extremity infection was open ulcers followed at the wound care clinic Underlying history of seizure disorder maintained on Dilantin Underlying history of hyperlipidemia Hyponatremia. Nephrology services following At this time patient is admitted to telemetry floor He was started on IV fluids and on insulin Home medications reviewed and reordered Cardiology consultation requested in regard to chest pain Infectious disease service is consulted s/p post EGD and colonoscopy on 11/28/2021 Patient counseled in length in regards to taking medications as instructed, he was recently given insulin samples from the office as he stated that he could not afford his medications Workup for anemia initiated
[2021-12-02 20:24] LABS: Glucose,Whole Blood 302 mg/dL (70-110)
[2021-12-02] MEDS: ATORVASTATIN 20 MG TAB PO SCH (20:58)
[2021-12-02] MEDS: LATANOPROST 0.005% OPHTH DROPS 2.5 ML BTL BOTH EYES SCH (20:58)
[2021-12-02] MEDS: DIPHENOX-ATROP 2.5-0.025 MG 1 EACH TAB PO PRN (21:56)
--- NOTE | 2021-12-02 22:24 | P.PN ---
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 on today's evaluation that is 12/01/2021, the patient continues to be afebrile, the patient is breathing comfortably on room air, the patient denies any chest pain or shortness of breath or cough, the patient denies abdominal pain and no diarrhea denies pain to the lower extremity wound Objective - Vital Signs Vital signs: Vital Signs Temp 98.3 F 12/01/21 08:00 Pulse 91 12/01/21 12:00 Resp 18 12/01/21 12:00 BP 129/72 12/01/21 12:00 Pulse Ox 96 12/01/21 12:00 FiO2 99 11/25/21 01:41 Intake & Output 11/30/21 12/01/21 12/01/21 18:59 06:59 18:59 Intake Total 1200 236 Balance 1200 236 Intake: Oral 1200 236 Other: Voiding Method Toilet Toilet Toilet # Voids 1 1 # Bowel Movements 1 - Exam GENERAL DESCRIPTION: A middle-age male lying in bed in no distress RESPIRATORY SYSTEM: Unlabored breathing , decreased breath sounds at bases HEART: S1 S2 regular rate and rhythm , ABDOMEN: Soft , no tenderness EXTREMITIES: Right foot and left posterior leg wound is currently dressed - Labs CBC & Chem 7: 12/02/21 08:16 12/02/21 08:16 Labs: Abnormal Lab Results - Last 24 Hours (Table) 11/30/21 12/01/21 12/01/21 Range/Units 20:32 06:27 07:44 Sodium 133 L (137-145) mmol/L Chloride 97 L (98-107) mmol/L Glucose 365 H (74-99) mg/dL POC Glucose (mg/dL) 208 H 376 H (70-110) mg/dL 12/01/21 12/01/21 Range/Units 11:47 17:00 Sodium (137-145) mmol/L Chloride (98-107) mmol/L Glucose (74-99) mg/dL POC Glucose (mg/dL) 310 H 225 H (70-110) mg/dL Microbiology - Last 24 Hours (Table) 11/25/21 01:40 Blood Culture - Final Blood No Growth after 144 hours 11/24/21 23:56 Blood Culture - Final Blood No Growth after 144 hours Assessment and Plan (1) Diabetic ulcer of right foot Current Visit: No Status: Acute Code(s): E11.621 - TYPE 2 DIABETES MELLITUS WITH FOOT ULCER; L97.519 - NON-PRS CHRONIC ULCER OTH PRT RIGHT FOOT W UNSP SEVERITY SNOMED Code(s): 067963473 (2) Ulcer of left lower leg Current Visit: No Status: Acute Code(s): L97.929 - NON-PRS CHRONIC ULC UNSP PRT OF L LOW LEG W UNSP SEVERITY SNOMED Code(s): 852397303 Plan: 1patient with right diabetic foot wounds with no cellulitis 2- patient with left posterior leg wound no cellulitis 3local wound care to continue Aquacel silver dressing change every 48 hour and does not need for systemic antibiotics therapy. Time with Patient: Less than 30
--- NOTE | 2021-12-02 22:24 | P.PN ---
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 on today's evaluation that is 12/02/2021, the patient remains to be afebrile, t he patient is breathing comfortably on room air, the patient denies any chest pain or shortness of breath or cough, the patient denies abdominal pain and no diarrhea , the patient denies pain to the lower extremity wound area Objective - Vital Signs Vital signs: Vital Signs Temp 99.4 F 12/02/21 08:30 Pulse 98 12/02/21 10:27 Resp 18 12/02/21 11:37 BP 123/69 12/02/21 11:37 Pulse Ox 95 12/02/21 11:37 FiO2 99 11/25/21 01:41 Intake & Output 12/01/21 12/02/21 12/02/21 18:59 06:59 18:59 Intake Total 354 180 Output Total 500 500 Balance 354 -500 -320 Weight 43.091 kg Intake: Oral 354 180 Output: Stool 500 500 Other: Voiding Method Toilet Toilet Toilet # Voids 1 # Bowel Movements 1 - Exam GENERAL DESCRIPTION: A middle-age male lying in bed in no distress RESPIRATORY SYSTEM: Unlabored breathing , decreased breath sounds at bases HEART: S1 S2 regular rate and rhythm , ABDOMEN: Soft , no tenderness EXTREMITIES: Right foot and left posterior leg wound is currently dressed - Labs CBC & Chem 7: 12/02/21 08:16 12/02/21 08:16 Labs: Abnormal Lab Results - Last 24 Hours (Table) 12/01/21 12/01/21 12/02/21 Range/Units 17:00 21:40 06:00 RBC (4.30-5.90) m/uL Hgb (13.0-17.5) gm/dL Hct (39.0-53.0) % MCV (80.0-100.0) fL MCH (25.0-35.0) pg MCHC (31.0-37.0) g/dL RDW (11.5-15.5) % Plt Count (150-450) k/uL Neutrophils # (1.3-7.7) k/uL Sodium (137-145) mmol/L Chloride (98-107) mmol/L Creatinine (0.66-1.25) mg/dL Glucose (74-99) mg/dL POC Glucose (mg/dL) 225 H 250 H 354 H (70-110) mg/dL Calcium (8.4-10.2) mg/dL 12/02/21 12/02/21 12/02/21 Range/Units 08:16 08:16 11:45 RBC 3.72 L (4.30-5.90) m/uL Hgb 7.5 L (13.0-17.5) gm/dL Hct 26.0 L (39.0-53.0) % MCV 69.9 L (80.0-100.0) fL MCH 20.1 L (25.0-35.0) pg MCHC 28.7 L (31.0-37.0) g/dL RDW 16.6 H (11.5-15.5) % Plt Count 608 H (150-450) k/uL Neutrophils # 7.9 H (1.3-7.7) k/uL Sodium 132 L (137-145) mmol/L Chloride 97 L (98-107) mmol/L Creatinine 0.63 L (0.66-1.25) mg/dL Glucose 300 H (74-99) mg/dL POC Glucose (mg/dL) 280 H (70-110) mg/dL Calcium 8.2 L (8.4-10.2) mg/dL Microbiology - Last 24 Hours (Table) 12/02/21 05:00 Urine Culture - Preliminary Urine,Voided Assessment and Plan (1) Diabetic ulcer of right foot Current Visit: No Status: Acute Code(s): E11.621 - TYPE 2 DIABETES MELLITUS WITH FOOT ULCER; L97.519 - NON-PRS CHRONIC ULCER OTH PRT RIGHT FOOT W UNSP SEVERITY SNOMED Code(s): 757963011 (2) Ulcer of left lower leg Current Visit: No Status: Acute Code(s): L97.929 - NON-PRS CHRONIC ULC UNSP PRT OF L LOW LEG W UNSP SEVERITY SNOMED Code(s): 793539572 Plan: 1patient with right diabetic foot wounds with no cellulitis 2- patient with left posterior leg wound no cellulitis 3local wound care to continue Aquacel silver dressing change every 48 hour and will monitor patient closely off antibiotics Time with Patient: Less than 30
[2021-12-03] MEDS: DIPHENOX-ATROP 2.5-0.025 MG 1 EACH TAB PO PRN (05:36)
[2021-12-03] MEDS: PANTOPRAZOLE 40 MG TABLET PO SCH (05:36)
[2021-12-03 06:14] LABS: Glucose,Whole Blood 368 mg/dL (70-110)
[2021-12-03] MEDS: INSULIN DETEMIR (LEVEMIR) 100 UNIT/ML SYR SQ SCH (06:55)
[2021-12-03] MEDS: INSULIN ASPART (NovoLOG) 100 UNIT/ML VIAL SQ SCH ×4 (06:55→20:59)
[2021-12-03] MEDS: LACTATED RINGERS 1,000 ML IV SCH (07:05)
[2021-12-03] MEDS: MULTIVITAMINS, THERA 1 EACH TAB PO SCH (08:43)
[2021-12-03] MEDS: prednisoLONE ACETATE 1% OPHTH DROPS 5 ML BTL LEFT EYE SCH ×2 (08:43→20:59)
[2021-12-03] MEDS: PHENYTOIN SODIUM EXTENDED 100 MG CAP PO SCH ×2 (08:43→20:59)
[2021-12-03] MEDS: KETOROLAC 0.5% OPHTH DROPS 5 ML BTL LEFT EYE SCH ×2 (08:44→21:00)
[2021-12-03] MEDS: NON FORMULARY DRUG (Phenytoin Sodium Extended [Dilantin] 30 MG Capsule) PO SCH (08:53)
--- NOTE | 2021-12-03 09:50 | P.PN ---
Subjective Patient is seen in follow-up for hyponatremia. Sodium level 132 yesterday. Oral intake has been fair. No vomiting or diarrhea. Hemodynamically stable. No active complaints. Blood sugars have been high. Blood glucose 368 this morning. Vital signs are stable. General: Awake. No acute distress. HEENT: Head exam is unremarkable. LUNGS: Breath sounds decreased. HEART: Rate and Rhythm are regular. ABDOMEN: Soft, no distention. EXTREMITITES: No edema. Objective - Vital Signs Vital signs: Vital Signs Temp 98.5 F 12/03/21 08:00 Pulse 106 H 12/03/21 08:00 Resp 16 12/03/21 08:00 BP 124/69 12/03/21 08:00 Pulse Ox 91 L 12/03/21 08:00 FiO2 99 11/25/21 01:41 Intake & Output 12/02/21 12/03/21 12/03/21 18:59 06:59 18:59 Intake Total 740 480 Output Total 1000 500 Balance -260 -500 480 Weight 43.091 kg Intake: Intake, IV Titration 200 Amount Magnesium Sulfate-D5w Pmx 200 1 gm In Dextrose/Water 1 100ml.bag @ 100 mls/hr IVPB Q1H ERIN Rx#: [id number] Oral 540 480 Output: Stool 1000 500 Other: Voiding Method Toilet Toilet Toilet # Voids 1 # Bowel Movements 1 - Labs CBC & Chem 7: 12/02/21 08:16 12/02/21 08:16 Labs: Abnormal Lab Results - Last 24 Hours (Table) 12/02/21 12/02/21 12/02/21 Range/Units 11:45 16:24 20:23 POC Glucose (mg/dL) 280 H 309 H 302 H (70-110) mg/dL 12/03/21 Range/Units 06:12 POC Glucose (mg/dL) 368 H (70-110) mg/dL Microbiology - Last 24 Hours (Table) 12/02/21 05:00 Urine Culture - Preliminary Urine,Voided Presumptive Staph aureus 12/01/21 23:29 Blood Culture - Preliminary Blood No Growth after 24 hours Assessment and Plan Plan: Assessment: 1. Hyponatremia secondary to SIADH. Also component of hypertonicity secondary to hyperglycemia. Sodium level 132 yesterday. Urine sodium 85 and urine osmolality 640. TSH normal. 2. Benign hypertension. Stable. 3. Anemia. Iron deficiency noted. Status post IV iron. 4. GI bleed status post EGD which showed antral gastritis. Hemoglobin 7.5 yesterday. No active bleeding. 5. Diabetes mellitus. Plan: Encourage oral intake. 1200 mL fluid restriction. Blood sugar control. Repeat labs in the morning.
[2021-12-03 12:03] LABS: Glucose,Whole Blood 189 mg/dL (70-110)
--- NOTE | 2021-12-03 14:08 | P.PN ---
Subjective Progress Note Date: 12/03/21 CHIEF COMPLAINT: Anemia HISTORY OF PRESENT ILLNESS: Patient is lying in bed comfortably. He denies abdominal pain. Denies any nausea vomiting. He is tolerating diet. He is status post EGD which revealed antral gastritis and small hiatal hernia with no evidence of upper GI bleed. Colonoscopy was not completed due to poor bowel prep. But there was evidence of diverticulosis in the sigmoid colon. Patient has been afebrile. His last hemoglobin 7.5 Patient seen and examined with Dr. Gonzalez PHYSICAL EXAM: VITAL SIGNS: Reviewed. GENERAL: Well-developed in no acute distress. HEENT: No sclera icterus. Extraocular movements grossly intact. Moist buccal mucosa. Head is atraumatic, normocephalic. ABDOMEN: Soft. Nondistended. Nontender. NEUROLOGIC: Alert and oriented. Cranial nerves II through XII grossly intact. ASSESSMENT: 1. Microcytic anemia with no active bleeding status post EGD with antral gastritis and small hiatal hernia. Colonoscopy showed diverticulosis with poor bowel prep 2. Iron deficiency 3. Severe protein calorie malnutrition PLAN: -Continue regular diet -continue Protonix -Add Ensure drinks to increase protein intake Physician Keyboard Teacher note has been reviewed by physician. Signing provider agrees with the documented findings, assessment, and plan of care. Objective - Vital Signs Vital signs: Vital Signs Temp 98.2 F 12/03/21 13:30 Pulse 84 12/03/21 13:30 Resp 16 12/03/21 13:30 BP 125/71 12/03/21 13:30 Pulse Ox 95 12/03/21 13:30 FiO2 99 11/25/21 01:41 Intake & Output 12/02/21 12/03/21 12/03/21 18:59 06:59 18:59 Intake Total 740 480 Output Total 1000 500 Balance -260 -500 480 Weight 43.091 kg Intake: Intake, IV Titration 200 Amount Magnesium Sulfate-D5w Pmx 200 1 gm In Dextrose/Water 1 100ml.bag @ 100 mls/hr IVPB Q1H ERIN Rx#: [id number] Oral 540 480 Output: Stool 1000 500 Other: Voiding Method Toilet Toilet Toilet # Voids 1 # Bowel Movements 1 - Labs CBC & Chem 7: 12/02/21 08:16 12/02/21 08:16 Labs: Abnormal Lab Results - Last 24 Hours (Table) 12/02/21 12/02/21 12/03/21 Range/Units 16:24 20:23 06:12 POC Glucose (mg/dL) 309 H 302 H 368 H (70-110) mg/dL 12/03/21 Range/Units 11:59 POC Glucose (mg/dL) 189 H (70-110) mg/dL Microbiology - Last 24 Hours (Table) 12/02/21 05:00 Urine Culture - Preliminary Urine,Voided Presumptive Staph aureus 12/01/21 23:29 Blood Culture - Preliminary Blood No Growth after 24 hours
--- NOTE | 2021-12-03 16:04 | P.CONS ---
History of Present Illness - Reason for Consult Consult date: 12/03/21 anemia Requesting physician: Helen Chen - Chief Complaint SOB - History of Present Illness We have been asked to see Mr. Ryder because of anemia. He has a past medical h istory of type 2 diabetes mellitus, lower extremity chronic wounds and he is on seizure medication.Patient was admitted 8 days ago with complaints of shortness of breath. Patient denies any history of anemia, never taken iron before, denies history of bleeding. He reports consuming a normal diet, no unintentional weight loss. Patient was a little irritated with my questions, he denied any difficulty swallowing, nausea, vomiting, abdominal pain, changes in his stool consistency or color, bowel habits. Patient was scheduled for EGD/colonoscopy but it was not a good prep. Iron saturation was 2.7, iron was 10, no ferritin drawn, B12 low normal methylmalonic acid ordered. After extensive chart review I see that the patient has 20 ER visits this year for GI complaints. He has had multiple endoscopy for anemia- EGD in 2013, screening colonoscopy in 2016, poor prep colonoscopy 2019, EGD and poor prep colonoscopy February 2021, EGD and poor prep colonoscopy 11/28. Labs show anemia in early 2019, microcytic and hypochromic late 2019, platelets also increased in late 2019. Pt has also been receiving wound care to the bilateral lower extremities. Review of Systems 10 point review of systems is negative except as stated in HPI Past Medical History Past Medical History: Diabetes Mellitus, Diabetes Mellitus, GERD/Reflux, Hyperlipidemia, Osteoarthritis (OA), Seizure Disorder Additional Past Medical History / Comment(s): IDDM type 1 per pt, bilateral feet neuropathy, pt states current wounds to bilateral feet/goes to [facility]/seen by Dr. Major (client services manager), past L lower extremity cellulitis with sepsis, L wrist cancerous tumor removed, past seizure about a year ago, arthritis L knee, vertig o, occasional diarrhea. History of Any Multi-Drug Resistant Organisms: MRSA Year Discovered:: 12/29/19 MDRO Source:: Left Leg Past Surgical History: Orthopedic Surgery, Tonsillectomy Additional Past Surgical History / Comment(s): 01/23/20 angiogram L leg, 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, colonoscopy, L eye surgery for strabismus. Past Anesthesia/Blood Transfusion Reactions: No Reported Reaction Past Psychological History: Depression Smoking Status: Never smoker Past Alcohol Use History: None Reported Past Drug Use History: None Reported - Past Family History Father Family Medical History: Myocardial Infarction ([place]) Additional Family Medical History / Comment(s): Father of a [place] at the age of 57yrs. Mother Family Medical History: Cancer Additional Family Medical History / Comment(s): Mother from cancer at the age of 61 or 62 . Pt cannot recall type of cancer. Sister(s) Family Medical History: Diabetes Mellitus Additional Family Medical History / Comment(s): Sister had DM type 1. She is . Medications and Allergies Home Medications Medication Instructions Recorded Confirmed Type Omeprazole 20 mg PO AC-BID 06/13/17 11/25/21 History Pioglitazone HCl [Actos] 15 mg PO DAILY 10/03/18 11/25/21 History Diphenox-Atrop 2.5-0.025 mg 1 tab PO BID PRN 11/17/19 11/25/21 History [Lomotil] Rosuvastatin [Crestor] 10 mg PO HS 05/15/20 11/25/21 History Latanoprost/Pf [Latanoprost 0.005% 1 drop BOTH EYES HS 06/15/21 11/25/21 History Eye Drop] Phenytoin Sodium Extended 60 mg PO BID 07/14/21 11/25/21 History [Dilantin] Acetaminophen Tab [Tylenol] 325 mg PO Q6HR PRN 07/17/21 11/25/21 History Acetaminophen-Codeine 300-30mg 1 tab PO TID PRN 07/17/21 11/25/21 History [Tylenol w/codeine #3] Ondansetron Odt [Zofran ODT] 4 mg PO Q8HR PRN #12 tab 07/29/21 11/25/21 Rx Ketorolac 0.5% Ophth Soln [Acular 1 drops LEFT EYE BID 08/30/21 11/25/21 History 0.5%] Mupirocin 2% Oint [Bactroban 2% 1 applic TOPICAL DAILY PRN 09/23/21 11/25/21 History Oint] Insulin Glargine [Lantus Vial] 50 unit SQ DAILY 11/25/21 11/25/21 History Insulin Lispro [Admelog] See Protocol SQ AC-TID 11/25/21 11/25/21 History Triamcinolone 0.5% Cream [Kenalog 1 applic TOPICAL DAILY PRN 11/25/21 11/25/21 History 0.5% Cream] Allergies Allergy/AdvReac Type Severity Reaction Status Date / Time No Known Allergies Allergy Verified 11/25/21 06:21 Physical Exam Vitals: Vital Signs Temp Pulse Pulse Resp BP Pulse Ox 12/03/21 13:30 98.2 F 84 16 125/71 95 12/03/21 08:00 98.5 F 106 H 16 124/69 91 L 12/03/21 04:00 98.5 F 98 16 138/65 98 12/03/21 02:00 18 12/03/21 00:00 98.6 F 94 18 138/67 97 12/02/21 22:47 98.9 F 18 143/65 99 12/02/21 20:00 18 12/02/21 16:31 99.5 F 96 18 124/66 96 12/02/21 15:41 98 18 Intake and Output 12/03/21 12/03/21 12/03/21 06:59 14:59 22:59 Intake Total 480 Balance 480 Intake: Oral 480 Other: Voiding Method Toilet Toilet # Voids 1 # Bowel Movements 1 - Constitutional petite, pale, looks older than stated age General appearance: no acute distress, thin - EENT Eyes: anicteric sclerae, EOMI ENT: hearing grossly normal, normal oropharynx - Neck Neck: no lymphadenopathy - Respiratory Respiratory: bilateral: CTA - Cardiovascular Rhythm: regular Heart sounds: normal: S1, S2 Abnormal Heart Sounds: no systolic murmur, no diastolic murmur, no rub, no S3 Gallop, no S4 Gallop, no click, no other - Gastrointestinal General gastrointestinal: no absent bowel sounds, no decreased bowel sounds, no distended, no hepatomegaly, no hyperactive bowel sounds, normal bowel sounds, no organomegaly, no rigid, no scaphoid, soft, no splenomegaly, no tenderness, no umbilical hernia, no ventral hernia - Integumentary Integumentary: pale - Musculoskeletal Musculoskeletal: generalized weakness - Psychiatric Psychiatric: A&O x's 3 Results CBC & Chem 7: 12/02/21 08:16 12/02/21 08:16 Labs: Abnormal Lab Results - Last 24 Hours (Table) 12/02/21 12/02/21 12/03/21 Range/Units 16:24 20:23 06:12 POC Glucose (mg/dL) 309 H 302 H 368 H (70-110) mg/dL 12/03/21 Range/Units 11:59 POC Glucose (mg/dL) 189 H (70-110) mg/dL Microbiology - Last 24 Hours (Table) 12/02/21 05:00 Urine Culture - Preliminary Urine,Voided Presumptive Staph aureus 12/01/21 23:29 Blood Culture - Preliminary Blood No Growth after 24 hours Assessment and Plan (1) Microcytic hypochromic anemia Current Visit: Yes Status: Chronic Priority: Medium Code(s): D50.9 - IRON DEFICIENCY ANEMIA, UNSPECIFIED SNOMED Code(s): 66352429 Plan: There is a clear delineation in the chart when patient became anemic. Microcytosis and hypochromasia followed about 9 months after anemia became apparent. Platelet levels elevated about 9 months after the anemia. Patient h as had multiple endoscopies, mostly poor prep for the colonoscopies. His labs do show iron deficiency. Will check a ferritin level, I think iron was given to him know so, this lab may be skewed. Also, ordered methylmalonic acid for the low normal B12. Would prefer to have patient appropriately supplemented for his iron deficiency before pursuing more invasive procedures such as bone marrow bio psy but, I will review the case in detail detail with Rawhide Trimmer. Additional labs as needed, additional recommendations as results are available. Transfuse for hemoglobin less than 7 Time with Patient: Greater than 30
[2021-12-03 16:54] LABS: Glucose,Whole Blood 100 mg/dL (70-110)
--- NOTE | 2021-12-03 17:41 | P.PN ---
Subjective Progress Note Date: 12/02/21 Pietro Ryder, is a 61 year old male who presented to [facility] emergency room with a chief complaint of chest discomfort and shortness of breath that he developed over the last 3 days He was evaluated in the emergency room vital examination on presentation revealed a temperature of 98.2 pulse 70 respiration 20 blood pressure 88/53 pulse ox 99% on room air Laboratory data revealed a white blood count of 8.9 hemoglobin 8.5 platelet count 732 sodium 126 potassium 4.9 chloride 83 BUN 18 creatinine 0.93 glucose level 616 Testing in the emergency room revealed chest x-ray done in the emergency room did not reveal any acute abnormality, EKG revealed sinus rhythm with early repolarization Patient was admitted to medical floor for further evaluation and treatment On 11/26/2021 patient was seen and examined on the medical floor he is alert and oriented 3 in no apparent distress there is no fever or chills no headache or dizziness no chest pain no shortness of breath no cough no nausea or vomiting no abdominal pain no diarrhea no blood in stools no burning with urination no fr equency or urgency and no hematuria. Patient had episodes of hypoglycemia last night, at this time will decrease Levemir to 25 units daily, will continue with sliding scale, will monitor for 24 more hours On 11/27/2021 patient is alert and oriented 3. Dr. Moran been consulted for wound care to bilateral lower extremities patient does following wound care clinic. Plans for EGD and colonoscopy tomorrow per surgical services. Hemoglobin today 8.1. This time patient denies chest pain or shortness of breath. Patient denies nausea vomiting or diarrhea. Patient denies any urinary burning or frequency On 920 04/28/2019 patient was seen and examined on the medical floor he is alert and oriented 3 in no apparent distress hemoglobin is down to 7.9 he was started on IV iron, results of EGD and colonoscopy were reviewed, clinically patient denies any complaints there is no fever or chills no headache or dizziness no chest pain or shortness of breath no cough no nausea or vomiting no abdominal pain no diarrhea and no urinary symptoms On 11/29/2021 patient is alert and oriented 3. Hemoglobin improving to 8.1. Sodium low at 128. Patient remains on normal saline at 75. At this time patient denies chest pain or shortness of breath. Patient denies nausea vomiting or diarrhea. Patient denies any urinary burning or frequency. On 12/01/2019 patient was seen and examined on the medical floor he is alert and oriented 3 in no apparent distress hemoglobin is down to 7.8 he is maintained on IV iron, clinically patient denies any complaints there is no fever or chills no headache or dizziness no chest pain or shortness of breath no cough no nausea or vomiting no abdominal pain no diarrhea and no urinary symptoms, He has evidence of hyponatremia, input from nephrology reviewed On 12/01/2021 patient is alert and oriented 3. sodium improving to 133. Patient denies chest pain or shortness of breath. Patient denies nausea vomiting or diarrhea. Patient denies any urinary burning or frequency On 12/02/2021 patient was seen and examined on the medical floor he is alert and oriented 3 in no apparent distress his hemoglobin continues to be low at 7.5, he has received multiple doses of IV iron, at this time will continue with same Will consult hematology in regard to anemia. Objective - Vital Signs Vital signs: Vital Signs Temp 99.4 F 12/02/21 08:30 Pulse 98 12/02/21 10:27 Resp 18 12/02/21 10:27 BP 124/64 12/02/21 08:30 Pulse Ox 94 L 12/02/21 08:30 FiO2 99 11/25/21 01:41 Intake & Output 12/01/21 12/02/21 12/02/21 18:59 06:59 18:59 Intake Total 354 Output Total 500 500 Balance 354 -500 -500 Intake: Oral 354 Output: Stool 500 500 Other: Voiding Method Toilet Toilet Toilet # Voids 1 # Bowel Movements 1 - Exam In general patient is alert and oriented x 3 in no distress HEENT head normocephalic and atraumatic Neck is supple no JVD no goiter no lymphadenopathy no carotid bruit Chest examination is clear to auscultation no crackles no wheezing Cardiac exam reveals regular heart sounds S1 and S2 no gallops no murmurs Abdomen is soft nontender no organomegaly with normal bowel sounds Extremity exam reveals no edema no cyanosis or clubbing Neurological examination reveals no gross focal deficits - Labs CBC & Chem 7: 12/02/21 08:16 12/02/21 08:16 Labs: Abnormal Lab Results - Last 24 Hours (Table) 12/01/21 12/01/21 12/01/21 Range/Units 11:47 17:00 21:40 RBC (4.30-5.90) m/uL Hgb (13.0-17.5) gm/dL Hct (39.0-53.0) % MCV (80.0-100.0) fL MCH (25.0-35.0) pg MCHC (31.0-37.0) g/dL RDW (11.5-15.5) % Plt Count (150-450) k/uL Neutrophils # (1.3-7.7) k/uL Sodium (137-145) mmol/L Chloride (98-107) mmol/L Creatinine (0.66-1.25) mg/dL Glucose (74-99) mg/dL POC Glucose (mg/dL) 310 H 225 H 250 H (70-110) mg/dL Calcium (8.4-10.2) mg/dL 12/02/21 12/02/21 12/02/21 Range/Units 06:00 08:16 08:16 RBC 3.72 L (4.30-5.90) m/uL Hgb 7.5 L (13.0-17.5) gm/dL Hct 26.0 L (39.0-53.0) % MCV 69.9 L (80.0-100.0) fL MCH 20.1 L (25.0-35.0) pg MCHC 28.7 L (31.0-37.0) g/dL RDW 16.6 H (11.5-15.5) % Plt Count 608 H (150-450) k/uL Neutrophils # 7.9 H (1.3-7.7) k/uL Sodium 132 L (137-145) mmol/L Chloride 97 L (98-107) mmol/L Creatinine 0.63 L (0.66-1.25) mg/dL Glucose 300 H (74-99) mg/dL POC Glucose (mg/dL) 354 H (70-110) mg/dL Calcium 8.2 L (8.4-10.2) mg/dL Microbiology - Last 24 Hours (Table) 12/02/21 05:00 Urine Culture - Preliminary Urine,Voided Assessment and Plan Plan: Episodes of chest pain and shortness of breath over the last 3 days. Per cardiology atypical chest pain troponins negative 3 no further inpatient workup Anemia with hemoglobin at 8.5 on presentation, this is microcytic anemia with MCV of 69.7 Hyponatremia on presentation. Improving Extreme hyperglycemia was a glucose at 616 Underlying history of insulin-dependent diabetes mellitus Underlying history of chronic lower extremity infection was open ulcers followed at the wound care clinic Underlying history of seizure disorder maintained on Dilantin Underlying history of hyperlipidemia Hyponatremia. Nephrology services following At this time patient is admitted to telemetry floor He was started on IV fluids and on insulin Home medications reviewed and reordered Cardiology consultation requested in regard to chest pain Infectious disease service is consulted s/p post EGD and colonoscopy on 11/28/2021 Patient counseled in length in regards to taking medications as instructed, he was recently given insulin samples from the office as he stated that he could not afford his medications Workup for anemia initiated
--- NOTE | 2021-12-03 17:42 | P.PN ---
Subjective Progress Note Date: 12/03/21 Pietro Ryder, is a 61 year old male who presented to [facility] emergency room with a chief complaint of chest discomfort and shortness of breath that he developed over the last 3 days He was evaluated in the emergency room vital examination on presentation revealed a temperature of 98.2 pulse 70 respiration 20 blood pressure 88/53 pulse ox 99% on room air Laboratory data revealed a white blood count of 8.9 hemoglobin 8.5 platelet count 732 sodium 126 potassium 4.9 chloride 83 BUN 18 creatinine 0.93 glucose level 616 Testing in the emergency room revealed chest x-ray done in the emergency room did not reveal any acute abnormality, EKG revealed sinus rhythm with early repolarization Patient was admitted to medical floor for further evaluation and treatment On 11/26/2021 patient was seen and examined on the medical floor he is alert and oriented 3 in no apparent distress there is no fever or chills no headache or dizziness no chest pain no shortness of breath no cough no nausea or vomiting no abdominal pain no diarrhea no blood in stools no burning with urination no fr equency or urgency and no hematuria. Patient had episodes of hypoglycemia last night, at this time will decrease Levemir to 25 units daily, will continue with sliding scale, will monitor for 24 more hours On 11/27/2021 patient is alert and oriented 3. Dr. Moran been consulted for wound care to bilateral lower extremities patient does following wound care clinic. Plans for EGD and colonoscopy tomorrow per surgical services. Hemoglobin today 8.1. This time patient denies chest pain or shortness of breath. Patient denies nausea vomiting or diarrhea. Patient denies any urinary burning or frequency On 920 04/28/2019 patient was seen and examined on the medical floor he is alert and oriented 3 in no apparent distress hemoglobin is down to 7.9 he was started on IV iron, results of EGD and colonoscopy were reviewed, clinically patient denies any complaints there is no fever or chills no headache or dizziness no chest pain or shortness of breath no cough no nausea or vomiting no abdominal pain no diarrhea and no urinary symptoms On 11/29/2021 patient is alert and oriented 3. Hemoglobin improving to 8.1. Sodium low at 128. Patient remains on normal saline at 75. At this time patient denies chest pain or shortness of breath. Patient denies nausea vomiting or diarrhea. Patient denies any urinary burning or frequency. On 11/30/2021 patient was seen and examined on the medical floor he is alert and oriented 3 in no apparent distress hemoglobin is down to 7.8 he is maintained on IV iron, clinically patient denies any complaints there is no fever or chills no headache or dizziness no chest pain or shortness of breath no cough no nausea or vomiting no abdominal pain no diarrhea and no urinary symptoms, He has evidence of hyponatremia, input from nephrology reviewed On 12/01/2021 patient is alert and oriented 3. sodium improving to 133. Patient denies chest pain or shortness of breath. Patient denies nausea vomiting or diarrhea. Patient denies any urinary burning or frequency. On 12/02/2021 patient was seen and examined on the medical floor he is alert and oriented 3 in no apparent distress there is no fever or chills no headache or dizziness no chest pain no shortness of breath no cough no nausea or vomiting no abdominal pain no diarrhea and no urinary symptoms, glucose level is well- controlled on that and regimen, patient is still having significant anemia with hemoglobin down to 7.5 despite daily dose of IV iron at this time will consult hematology for further management On 12/03/2021 patient was seen and examined on the medical floor he is alert and oriented 3 in no apparent distress there is no fever or chills no headache or dizziness no chest pain no shortness of breath no cough no nausea or vomiting no abdominal pain no diarrhea and no urinary symptoms at this time will continue was current management awaiting further recommendation by nephrology and hematology in that regard to anemia Objective - Vital Signs Vital signs: Vital Signs Temp 98.2 F 12/03/21 13:30 Pulse 84 12/03/21 13:30 Resp 16 12/03/21 13:30 BP 125/71 12/03/21 13:30 Pulse Ox 95 12/03/21 13:30 FiO2 99 11/25/21 01:41 Intake & Output 12/02/21 12/03/21 12/03/21 18:59 06:59 18:59 Intake Total 740 480 Output Total 1000 500 Balance -260 -500 480 Weight 43.091 kg Intake: Intake, IV Titration 200 Amount Magnesium Sulfate-D5w Pmx 200 1 gm In Dextrose/Water 1 100ml.bag @ 100 mls/hr IVPB Q1H [facility] Rx#: [id number] Oral 540 480 Output: Stool 1000 500 Other: Voiding Method Toilet Toilet Toilet # Voids 1 # Bowel Movements 1 - Exam In general patient is alert and oriented x 3 in no distress HEENT head normocephalic and atraumatic Neck is supple no JVD no goiter no lymphadenopathy no carotid bruit Chest examination is clear to auscultation no crackles no wheezing Cardiac exam reveals regular heart sounds S1 and S2 no gallops no murmurs Abdomen is soft nontender no organomegaly with normal bowel sounds Extremity exam reveals no edema no cyanosis or clubbing Neurological examination reveals no gross focal deficits - Labs CBC & Chem 7: 12/02/21 08:16 12/02/21 08:16 Labs: Abnormal Lab Results - Last 24 Hours (Table) 12/02/21 12/03/21 12/03/21 Range/Units 20:23 06:12 11:59 POC Glucose (mg/dL) 302 H 368 H 189 H (70-110) mg/dL Microbiology - Last 24 Hours (Table) 12/02/21 05:00 Urine Culture - Preliminary Urine,Voided Presumptive Staph aureus 12/01/21 23:29 Blood Culture - Preliminary Blood No Growth after 24 hours Assessment and Plan Plan: Episodes of chest pain and shortness of breath over the last 3 days. Per cardiology atypical chest pain troponins negative 3 no further inpatient workup Anemia with hemoglobin at 8.5 on presentation, this is microcytic anemia with MCV of 69.7 Hyponatremia on presentation. Improving Extreme hyperglycemia was a glucose at 616 Underlying history of insulin-dependent diabetes mellitus Underlying history of chronic lower extremity infection was open ulcers followed at the wound care clinic Underlying history of seizure disorder maintained on Dilantin Underlying history of hyperlipidemia Hyponatremia. Nephrology services following At this time patient is admitted to telemetry floor He was started on IV fluids and on insulin Home medications reviewed and reordered Cardiology consultation requested in regard to chest pain Infectious disease service is consulted s/p post EGD and colonoscopy on 11/28/2021 Patient counseled in length in regards to taking medications as instructed, he was recently given insulin samples from the office as he stated that he could not afford his medications Workup for anemia initiated
[2021-12-03 19:17] LABS: Glucose,Whole Blood 354 mg/dL (70-110)
[2021-12-03] MEDS: ATORVASTATIN 20 MG TAB PO SCH (20:59)
[2021-12-03] MEDS: LATANOPROST 0.005% OPHTH DROPS 2.5 ML BTL BOTH EYES SCH (21:00)
[2021-12-04 05:57] LABS: Glucose,Whole Blood 343 mg/dL (70-110)
[2021-12-04] MEDS: LACTATED RINGERS 1,000 ML IV SCH (06:25)
[2021-12-04] MEDS: INSULIN ASPART (NovoLOG) 100 UNIT/ML VIAL SQ SCH ×4 (06:27→20:53)
[2021-12-04] MEDS: INSULIN DETEMIR (LEVEMIR) 100 UNIT/ML SYR SQ SCH (06:27)
[2021-12-04] MEDS: PANTOPRAZOLE 40 MG TABLET PO SCH (06:28)
[2021-12-04 07:40] LABS: Anisocytosis Slight; Basophils # (A) 0.1 k/uL (0-0.2); Basophils % (A) 0 %; Eosinophils # (A) 0.1 k/uL (0-0.7); Eosinophils % (A) 1 %; HCT 25.2 % (39.0-53.0); HGB 7.1 gm/dL (13.0-17.5); Hypochromasia Marked; Lymphocytes # (A) 1.5 k/uL (1.0-4.8); Lymphocytes % (A) 12 %; MCH 20.1 pg (25.0-35.0); MCHC 28.3 g/dL (31.0-37.0); MCV 71.1 fL (80.0-100.0); Mean Platelet Volume 6.9; Microcytosis Marked; Monocytes # (A) 0.4 k/uL (0-1.0); Monocytes % (A) 4 %; Neutrophils # (A) 9.8 k/uL (1.3-7.7); Neutrophils % (A) 81 %; Platelet Count 578 k/uL (150-450); RBC 3.55 m/uL (4.30-5.90); RDW 19.7 % (11.5-15.5); WBC 12.1 k/uL (3.8-10.6)
[2021-12-04 07:53] LABS: ALT 18 U/L (4-49); AST 32 U/L (17-59); African American GFR (CKD) >90 (>60 ml/min/1.73 sqM); Albumin 2.9 g/dL (3.5-5.0); Alkaline Phosphatase 168 U/L (38-126); Anion Gap 10 mmol/L; Blood Urea Nitrogen 14 mg/dL (9-20); Calcium 8.3 mg/dL (8.4-10.2); Carbon Dioxide 27 mmol/L (22-30); Chloride 96 mmol/L (98-107); Glucose 316 mg/dL (74-99); Magnesium 1.7 mg/dL (1.6-2.3); Non-African American GFR(CKD) >90 (>60 ml/min/1.73 sqM); Potassium 4.2 mmol/L (3.5-5.1); Sodium 133 mmol/L (137-145); Total Bilirubin 0.2 mg/dL (0.2-1.3)
[2021-12-04] MEDS: KETOROLAC 0.5% OPHTH DROPS 5 ML BTL LEFT EYE SCH ×2 (10:18→20:56)
[2021-12-04] MEDS: MULTIVITAMINS, THERA 1 EACH TAB PO SCH (10:19)
[2021-12-04] MEDS: PHENYTOIN SODIUM EXTENDED 100 MG CAP PO SCH ×2 (10:19→20:53)
[2021-12-04] MEDS: prednisoLONE ACETATE 1% OPHTH DROPS 5 ML BTL LEFT EYE SCH ×2 (10:19→20:57)
--- NOTE | 2021-12-04 10:19 | P.PN ---
Subjective Progress Note Date: 12/04/21 Pietro Ryder, is a 61 year old male who presented to [facility] emergency room with a chief complaint of chest discomfort and shortness of breath that he developed over the last 3 days He was evaluated in the emergency room vital examination on presentation revealed a temperature of 98.2 pulse 70 respiration 20 blood pressure 88/53 pulse ox 99% on room air Laboratory data revealed a white blood count of 8.9 hemoglobin 8.5 platelet count 732 sodium 126 potassium 4.9 chloride 83 BUN 18 creatinine 0.93 glucose level 616 Testing in the emergency room revealed chest x-ray done in the emergency room did not reveal any acute abnormality, EKG revealed sinus rhythm with early repolarization Patient was admitted to medical floor for further evaluation and treatment On 11/26/2021 patient was seen and examined on the medical floor he is alert and oriented 3 in no apparent distress there is no fever or chills no headache or dizziness no chest pain no shortness of breath no cough no nausea or vomiting no abdominal pain no diarrhea no blood in stools no burning with urination no fr equency or urgency and no hematuria. Patient had episodes of hypoglycemia last night, at this time will decrease Levemir to 25 units daily, will continue with sliding scale, will monitor for 24 more hours On 11/27/2021 patient is alert and oriented 3. Dr. Moran been consulted for wound care to bilateral lower extremities patient does following wound care clinic. Plans for EGD and colonoscopy tomorrow per surgical services. Hemoglobin today 8.1. This time patient denies chest pain or shortness of breath. Patient denies nausea vomiting or diarrhea. Patient denies any urinary burning or frequency On 920 04/28/2019 patient was seen and examined on the medical floor he is alert and oriented 3 in no apparent distress hemoglobin is down to 7.9 he was started on IV iron, results of EGD and colonoscopy were reviewed, clinically patient denies any complaints there is no fever or chills no headache or dizziness no chest pain or shortness of breath no cough no nausea or vomiting no abdominal pain no diarrhea and no urinary symptoms On 11/29/2021 patient is alert and oriented 3. Hemoglobin improving to 8.1. Sodium low at 128. Patient remains on normal saline at 75. At this time patient denies chest pain or shortness of breath. Patient denies nausea vomiting or diarrhea. Patient denies any urinary burning or frequency. On 11/30/2021 patient was seen and examined on the medical floor he is alert and oriented 3 in no apparent distress hemoglobin is down to 7.8 he is maintained on IV iron, clinically patient denies any complaints there is no fever or chills no headache or dizziness no chest pain or shortness of breath no cough no nausea or vomiting no abdominal pain no diarrhea and no urinary symptoms, He has evidence of hyponatremia, input from nephrology reviewed On 12/01/2021 patient is alert and oriented 3. sodium improving to 133. Patient denies chest pain or shortness of breath. Patient denies nausea vomiting or diarrhea. Patient denies any urinary burning or frequency. On 12/02/2021 patient was seen and examined on the medical floor he is alert and oriented 3 in no apparent distress there is no fever or chills no headache or dizziness no chest pain no shortness of breath no cough no nausea or vomiting no abdominal pain no diarrhea and no urinary symptoms, glucose level is well- controlled on that and regimen, patient is still having significant anemia with hemoglobin down to 7.5 despite daily dose of IV iron at this time will consult hematology for further management On 12/03/2021 patient was seen and examined on the medical floor he is alert and oriented 3 in no apparent distress there is no fever or chills no headache or dizziness no chest pain no shortness of breath no cough no nausea or vomiting no abdominal pain no diarrhea and no urinary symptoms at this time will continue was current management awaiting further recommendation by nephrology and hematology in that regard to anemia 12/04/2021 patient is alert and oriented 3. Hematology service is following for anemia. Hemoglobin today 7.1. Patient denies any chest pain or shortness breath. Patient denies nausea vomiting or diarrhea. Patient denies any urinary burning or frequency Objective - Vital Signs Vital signs: Vital Signs Temp 98.5 F 12/04/21 08:00 Pulse 103 H 12/04/21 08:00 Resp 18 12/04/21 08:00 BP 132/66 12/04/21 08:00 Pulse Ox 94 L 12/04/21 08:00 FiO2 99 11/25/21 01:41 Intake & Output 12/03/21 12/04/21 12/04/21 18:59 06:59 18:59 Intake Total 720 10 480 Output Total 240 Balance 480 10 480 Intake: IV 10 Invasive Line 4 10 Oral 720 480 Output: Urine 240 Other: Voiding Method Toilet Toilet # Voids 1 - Exam In general patient is alert and oriented x 3 in no distress HEENT head normocephalic and atraumatic Neck is supple no JVD no goiter no lymphadenopathy no carotid bruit Chest examination is clear to auscultation no crackles no wheezing Cardiac exam reveals regular heart sounds S1 and S2 no gallops no murmurs Abdomen is soft nontender no organomegaly with normal bowel sounds Extremity exam reveals no edema no cyanosis or clubbing Neurological examination reveals no gross focal deficits - Labs CBC & Chem 7: 12/04/21 07:06 12/04/21 07:06 Labs: Abnormal Lab Results - Last 24 Hours (Table) 12/02/21 12/03/21 12/03/21 Range/Units 08:16 11:59 19:15 WBC (3.8-10.6) k/uL RBC (4.30-5.90) m/uL Hgb (13.0-17.5) gm/dL Hct (39.0-53.0) % MCV (80.0-100.0) fL MCH (25.0-35.0) pg MCHC (31.0-37.0) g/dL RDW (11.5-15.5) % Plt Count (150-450) k/uL Neutrophils # (1.3-7.7) k/uL Sodium (137-145) mmol/L Chloride (98-107) mmol/L Creatinine (0.66-1.25) mg/dL Glucose (74-99) mg/dL POC Glucose (mg/dL) 189 H 354 H (70-110) mg/dL Calcium (8.4-10.2) mg/dL Ferritin 537.0 H (22.0-322.0) ng/mL Alkaline Phosphatase (38-126) U/L Total Protein (6.3-8.2) g/dL Albumin (3.5-5.0) g/dL 12/04/21 12/04/21 12/04/21 Range/Units 05:56 07:06 07:06 WBC 12.1 H (3.8-10.6) k/uL RBC 3.55 L (4.30-5.90) m/uL Hgb 7.1 L (13.0-17.5) gm/dL Hct 25.2 L (39.0-53.0) % MCV 71.1 L (80.0-100.0) fL MCH 20.1 L (25.0-35.0) pg MCHC 28.3 L (31.0-37.0) g/dL RDW 19.7 H (11.5-15.5) % Plt Count 578 H (150-450) k/uL Neutrophils # 9.8 H (1.3-7.7) k/uL Sodium 133 L (137-145) mmol/L Chloride 96 L (98-107) mmol/L Creatinine 0.64 L (0.66-1.25) mg/dL Glucose 316 H (74-99) mg/dL POC Glucose (mg/dL) 343 H (70-110) mg/dL Calcium 8.3 L (8.4-10.2) mg/dL Ferritin (22.0-322.0) ng/mL Alkaline Phosphatase 168 H (38-126) U/L Total Protein 6.0 L (6.3-8.2) g/dL Albumin 2.9 L (3.5-5.0) g/dL Microbiology - Last 24 Hours (Table) 12/01/21 23:29 Blood Culture - Preliminary Blood No Growth after 48 hours 12/02/21 05:00 Urine Culture - Preliminary Urine,Voided Presumptive Staph aureus Assessment and Plan Plan: Episodes of chest pain and shortness of breath over the last 3 days. Per cardiology atypical chest pain troponins negative 3 no further inpatient workup Anemia with hemoglobin at 8.5 on presentation, this is microcytic anemia with MCV of 69.7. Hematology service is consulted Hyponatremia on presentation. Improving Extreme hyperglycemia was a glucose at 616 Underlying history of insulin-dependent diabetes mellitus Underlying history of chronic lower extremity infection was open ulcers followed at the wound care clinic Underlying history of seizure disorder maintained on Dilantin Underlying history of hyperlipidemia Hyponatremia. Nephrology services following At this time patient is admitted to telemetry floor He was started on IV fluids and on insulin Home medications reviewed and reordered Cardiology consultation requested in regard to chest pain Infectious disease service is consulted s/p post EGD and colonoscopy on 11/28/2021 Patient counseled in length in regards to taking medications as instructed, he was recently given insulin samples from the office as he stated that he could not afford his medications Workup for anemia initiated
--- NOTE | 2021-12-04 10:27 | P.PN ---
Subjective Patient is seen in follow-up for hyponatremia. Sodium level stable. Oral intake has been fair. No vomiting or diarrhea. Hemodynamically stable. No active complaints. Blood sugars better controlled. Blood glucose 316 today. Vital signs are stable. General: Awake. No acute distress. HEENT: Head exam is unremarkable. LUNGS: Breath sounds decreased. HEART: Rate and Rhythm are regular. ABDOMEN: Soft, no distention. EXTREMITITES: No edema. Objective - Vital Signs Vital signs: Vital Signs Temp 98.5 F 12/04/21 08:00 Pulse 103 H 12/04/21 08:00 Resp 18 12/04/21 08:00 BP 132/66 12/04/21 08:00 Pulse Ox 94 L 12/04/21 08:00 FiO2 99 11/25/21 01:41 Intake & Output 12/03/21 12/04/21 12/04/21 18:59 06:59 18:59 Intake Total 720 10 480 Output Total 240 Balance 480 10 480 Intake: IV 10 Invasive Line 4 10 Oral 720 480 Output: Urine 240 Other: Voiding Method Toilet Toilet # Voids 1 - Labs CBC & Chem 7: 12/04/21 07:06 12/04/21 07:06 Labs: Abnormal Lab Results - Last 24 Hours (Table) 12/02/21 12/03/21 12/03/21 Range/Units 08:16 11:59 19:15 WBC (3.8-10.6) k/uL RBC (4.30-5.90) m/uL Hgb (13.0-17.5) gm/dL Hct (39.0-53.0) % MCV (80.0-100.0) fL MCH (25.0-35.0) pg MCHC (31.0-37.0) g/dL RDW (11.5-15.5) % Plt Count (150-450) k/uL Neutrophils # (1.3-7.7) k/uL Sodium (137-145) mmol/L Chloride (98-107) mmol/L Creatinine (0.66-1.25) mg/dL Glucose (74-99) mg/dL POC Glucose (mg/dL) 189 H 354 H (70-110) mg/dL Calcium (8.4-10.2) mg/dL Ferritin 537.0 H (22.0-322.0) ng/mL Alkaline Phosphatase (38-126) U/L Total Protein (6.3-8.2) g/dL Albumin (3.5-5.0) g/dL 12/04/21 12/04/21 12/04/21 Range/Units 05:56 07:06 07:06 WBC 12.1 H (3.8-10.6) k/uL RBC 3.55 L (4.30-5.90) m/uL Hgb 7.1 L (13.0-17.5) gm/dL Hct 25.2 L (39.0-53.0) % MCV 71.1 L (80.0-100.0) fL MCH 20.1 L (25.0-35.0) pg MCHC 28.3 L (31.0-37.0) g/dL RDW 19.7 H (11.5-15.5) % Plt Count 578 H (150-450) k/uL Neutrophils # 9.8 H (1.3-7.7) k/uL Sodium 133 L (137-145) mmol/L Chloride 96 L (98-107) mmol/L Creatinine 0.64 L (0.66-1.25) mg/dL Glucose 316 H (74-99) mg/dL POC Glucose (mg/dL) 343 H (70-110) mg/dL Calcium 8.3 L (8.4-10.2) mg/dL Ferritin (22.0-322.0) ng/mL Alkaline Phosphatase 168 H (38-126) U/L Total Protein 6.0 L (6.3-8.2) g/dL Albumin 2.9 L (3.5-5.0) g/dL Microbiology - Last 24 Hours (Table) 12/01/21 23:29 Blood Culture - Preliminary Blood No Growth after 48 hours 12/02/21 05:00 Urine Culture - Preliminary Urine,Voided Presumptive Staph aureus Assessment and Plan Plan: Assessment: 1. Hyponatremia secondary to SIADH. Also component of hypertonicity secondary to hyperglycemia. Sodium level stable. Urine sodium 85 and urine osmolality 640. TSH normal. 2. Benign hypertension. Stable. 3. Anemia. Iron deficiency noted. Status post IV iron. 4. GI bleed status post EGD which showed antral gastritis. Hemoglobin 7.1 today. No active bleeding. Defer transfusion to primary team and surgery. 5. Diabetes mellitus. Plan: Encourage oral intake. 1200 mL fluid restriction. Blood sugar control. Repeat labs in the morning.
--- NOTE | 2021-12-04 10:53 | P.PN ---
Subjective Progress Note Date: 12/04/21 CHIEF COMPLAINT: Anemia HISTORY OF PRESENT ILLNESS: Patient is lying in bed comfortably. He denies abdominal pain. Denies any nausea vomiting. He is tolerating diet. He is status post EGD which revealed antral gastritis and small hiatal hernia with no evidence of upper GI bleed. Colonoscopy was not completed due to poor bowel prep. But there was evidence of diverticulosis in the sigmoid colon. Afebrile. WBC 12.1 HGB 7.5 down to 7.1 patient is followed by hematology for his anemia Patient seen and examined with Dr. Gonzalez PHYSICAL EXAM: VITAL SIGNS: Reviewed. GENERAL: Well-developed in no acute distress. HEENT: No sclera icterus. Extraocular movements grossly intact. Moist buccal mucosa. Head is atraumatic, normocephalic. ABDOMEN: Soft. Nondistended. Nontender. NEUROLOGIC: Alert and oriented. Cranial nerves II through XII grossly intact. ASSESSMENT: 1. Microcytic anemia with no active bleeding status post EGD with antral gastritis and small hiatal hernia. Colonoscopy showed diverticulosis with poor bowel prep 2. Iron deficiency 3. Severe protein calorie malnutrition PLAN: -Continue anemia workup per hematology -Continue regular diet -continue Protonix -Continue Ensure drinks to increase protein intake Physician Sheet Metal Worker note has been reviewed by physician. Signing provider agrees with the documented findings, assessment, and plan of care. Objective - Vital Signs Vital signs: Vital Signs Temp 98.5 F 12/04/21 08:00 Pulse 103 H 12/04/21 08:00 Resp 18 12/04/21 08:00 BP 132/66 12/04/21 08:00 Pulse Ox 94 L 12/04/21 08:00 FiO2 99 11/25/21 01:41 Intake & Output 12/03/21 12/04/21 12/04/21 18:59 06:59 18:59 Intake Total 720 10 480 Output Total 240 Balance 480 10 480 Intake: IV 10 Invasive Line 4 10 Oral 720 480 Output: Urine 240 Other: Voiding Method Toilet Toilet # Voids 1 - Labs CBC & Chem 7: 12/04/21 07:06 12/04/21 07:06 Labs: Abnormal Lab Results - Last 24 Hours (Table) 12/02/21 12/03/21 12/03/21 Range/Units 08:16 11:59 19:15 WBC (3.8-10.6) k/uL RBC (4.30-5.90) m/uL Hgb (13.0-17.5) gm/dL Hct (39.0-53.0) % MCV (80.0-100.0) fL MCH (25.0-35.0) pg MCHC (31.0-37.0) g/dL RDW (11.5-15.5) % Plt Count (150-450) k/uL Neutrophils # (1.3-7.7) k/uL Sodium (137-145) mmol/L Chloride (98-107) mmol/L Creatinine (0.66-1.25) mg/dL Glucose (74-99) mg/dL POC Glucose (mg/dL) 189 H 354 H (70-110) mg/dL Calcium (8.4-10.2) mg/dL Ferritin 537.0 H (22.0-322.0) ng/mL Alkaline Phosphatase (38-126) U/L Total Protein (6.3-8.2) g/dL Albumin (3.5-5.0) g/dL 12/04/21 12/04/21 12/04/21 Range/Units 05:56 07:06 07:06 WBC 12.1 H (3.8-10.6) k/uL RBC 3.55 L (4.30-5.90) m/uL Hgb 7.1 L (13.0-17.5) gm/dL Hct 25.2 L (39.0-53.0) % MCV 71.1 L (80.0-100.0) fL MCH 20.1 L (25.0-35.0) pg MCHC 28.3 L (31.0-37.0) g/dL RDW 19.7 H (11.5-15.5) % Plt Count 578 H (150-450) k/uL Neutrophils # 9.8 H (1.3-7.7) k/uL Sodium 133 L (137-145) mmol/L Chloride 96 L (98-107) mmol/L Creatinine 0.64 L (0.66-1.25) mg/dL Glucose 316 H (74-99) mg/dL POC Glucose (mg/dL) 343 H (70-110) mg/dL Calcium 8.3 L (8.4-10.2) mg/dL Ferritin (22.0-322.0) ng/mL Alkaline Phosphatase 168 H (38-126) U/L Total Protein 6.0 L (6.3-8.2) g/dL Albumin 2.9 L (3.5-5.0) g/dL Microbiology - Last 24 Hours (Table) 12/01/21 23:29 Blood Culture - Preliminary Blood No Growth after 48 hours 12/02/21 05:00 Urine Culture - Preliminary Urine,Voided Presumptive Staph aureus
[2021-12-04 11:40] LABS: Glucose,Whole Blood 316 mg/dL (70-110)
[2021-12-04] MEDS: DIPHENOX-ATROP 2.5-0.025 MG 1 EACH TAB PO PRN ×2 (12:45→23:56)
[2021-12-04] MEDS: SODIUM FERRIC GLUCONAT-SUCROSE 125 MG in SODIUM CHLORIDE 0.9% 100 ML IVPB SCH (14:03)
--- NOTE | 2021-12-04 14:14 | P.PN ---
Subjective Progress Note Date: 12/04/21 Principal diagnosis: iron deficient anemia In follow-up today patient is up and around the room, denies any bleeding, denies any side effects related to IV iron. Objective - Vital Signs Vital signs: Vital Signs Temp 98.0 F 12/04/21 11:32 Pulse 95 12/04/21 11:32 Resp 19 12/04/21 11:32 BP 149/75 12/04/21 11:32 Pulse Ox 95 12/04/21 11:32 FiO2 99 11/25/21 01:41 Intake & Output 12/03/21 12/04/21 12/04/21 18:59 06:59 18:59 Intake Total 720 10 480 Output Total 240 Balance 480 10 480 Intake: IV 10 Invasive Line 4 10 Oral 720 480 Output: Urine 240 Other: Voiding Method Toilet Toilet Toilet # Voids 1 1 - Exam well-developed, thin, petite, slightly pale, no acute distress, alert, oriented to self, place, time. - Labs CBC & Chem 7: 12/04/21 07:06 12/04/21 07:06 Labs: Abnormal Lab Results - Last 24 Hours (Table) 12/02/21 12/03/21 12/04/21 Range/Units 08:16 19:15 05:56 WBC (3.8-10.6) k/uL RBC (4.30-5.90) m/uL Hgb (13.0-17.5) gm/dL Hct (39.0-53.0) % MCV (80.0-100.0) fL MCH (25.0-35.0) pg MCHC (31.0-37.0) g/dL RDW (11.5-15.5) % Plt Count (150-450) k/uL Neutrophils # (1.3-7.7) k/uL Sodium (137-145) mmol/L Chloride (98-107) mmol/L Creatinine (0.66-1.25) mg/dL Glucose (74-99) mg/dL POC Glucose (mg/dL) 354 H 343 H (70-110) mg/dL Calcium (8.4-10.2) mg/dL Ferritin 537.0 H (22.0-322.0) ng/mL Alkaline Phosphatase (38-126) U/L Total Protein (6.3-8.2) g/dL Albumin (3.5-5.0) g/dL 12/04/21 12/04/21 12/04/21 Range/Units 07:06 07:06 11:39 WBC 12.1 H (3.8-10.6) k/uL RBC 3.55 L (4.30-5.90) m/uL Hgb 7.1 L (13.0-17.5) gm/dL Hct 25.2 L (39.0-53.0) % MCV 71.1 L (80.0-100.0) fL MCH 20.1 L (25.0-35.0) pg MCHC 28.3 L (31.0-37.0) g/dL RDW 19.7 H (11.5-15.5) % Plt Count 578 H (150-450) k/uL Neutrophils # 9.8 H (1.3-7.7) k/uL Sodium 133 L (137-145) mmol/L Chloride 96 L (98-107) mmol/L Creatinine 0.64 L (0.66-1.25) mg/dL Glucose 316 H (74-99) mg/dL POC Glucose (mg/dL) 316 H (70-110) mg/dL Calcium 8.3 L (8.4-10.2) mg/dL Ferritin (22.0-322.0) ng/mL Alkaline Phosphatase 168 H (38-126) U/L Total Protein 6.0 L (6.3-8.2) g/dL Albumin 2.9 L (3.5-5.0) g/dL Microbiology - Last 24 Hours (Table) 12/01/21 23:29 Blood Culture - Preliminary Blood No Growth after 48 hours Assessment and Plan (1) Microcytic hypochromic anemia Current Visit: Yes Status: Chronic Priority: Medium Code(s): D50.9 - IRON DEFICIENCY ANEMIA, UNSPECIFIED SNOMED Code(s): 87753115 Plan: There is a clear delineation in the chart when patient became anemic. Microcytosis and hypochromasia followed about 9 months after anemia became apparent. Platelet levels elevated about 9 months after the anemia. Patient has had multiple endoscopies, mostly poor prep for the colonoscopies. His labs do show iron deficiency. Ferritin level is elevated but this was anticipated as patient received parenteral iron. Additional doses of parenteral iron daily well inpatient ordered. Methylmalonic acid for low normal B12, still pending. Supplement for iron deficiency, follow-up with [facility] in 6 weeks, appointment in the discharge plan.
[2021-12-04 16:40] LABS: Glucose,Whole Blood 195 mg/dL (70-110)
[2021-12-04 20:47] LABS: Glucose,Whole Blood 358 mg/dL (70-110)
[2021-12-04] MEDS: ATORVASTATIN 20 MG TAB PO SCH (20:53)
[2021-12-04] MEDS: LATANOPROST 0.005% OPHTH DROPS 2.5 ML BTL BOTH EYES SCH (20:56)
[2021-12-04] MEDS ORDERED: PHENYTOIN SODIUM EXTENDED 100 MG CAP PO STA (23:35)
[2021-12-05 06:13] LABS: Glucose,Whole Blood 332 mg/dL (70-110)
[2021-12-05] MEDS: LACTATED RINGERS 1,000 ML IV SCH (06:21)
[2021-12-05] MEDS: PANTOPRAZOLE 40 MG TABLET PO SCH (06:29)
[2021-12-05] MEDS: INSULIN ASPART (NovoLOG) 100 UNIT/ML VIAL SQ SCH ×2 (06:30→12:06)
[2021-12-05] MEDS: INSULIN DETEMIR (LEVEMIR) 100 UNIT/ML SYR SQ SCH (06:30)
[2021-12-05 08:24] LABS: Anisocytosis Slight; Basophils # (A) 0.1 k/uL (0-0.2); Basophils % (A) 0 %; Eosinophils # (A) 0.2 k/uL (0-0.7); Eosinophils % (A) 2 %; HCT 27.9 % (39.0-53.0); HGB 7.8 gm/dL (13.0-17.5); Hypochromasia Marked; Lymphocytes # (A) 2.2 k/uL (1.0-4.8); Lymphocytes % (A) 18 %; MCH 20.4 pg (25.0-35.0); MCV 72.7 fL (80.0-100.0); Microcytosis Moderate; Monocytes # (A) 0.5 k/uL (0-1.0); Monocytes % (A) 5 %; Neutrophils # (A) 8.6 k/uL (1.3-7.7); Neutrophils % (A) 73 %; Platelet Count 616 k/uL (150-450); RBC 3.83 m/uL (4.30-5.90); RDW 19.9 % (11.5-15.5); WBC 11.8 k/uL (3.8-10.6)
[2021-12-05 08:44] LABS: ALT 18 U/L (4-49); AST 27 U/L (17-59); African American GFR (CKD) >90 (>60 ml/min/1.73 sqM); Albumin 3.2 g/dL (3.5-5.0); Alkaline Phosphatase 169 U/L (38-126); Anion Gap 9 mmol/L; Blood Urea Nitrogen 14 mg/dL (9-20); Calcium 8.5 mg/dL (8.4-10.2); Carbon Dioxide 27 mmol/L (22-30); Chloride 98 mmol/L (98-107); Glucose 291 mg/dL (74-99); Non-African American GFR(CKD) >90 (>60 ml/min/1.73 sqM); Potassium 4.3 mmol/L (3.5-5.1); Sodium 134 mmol/L (137-145); Total Bilirubin 0.3 mg/dL (0.2-1.3); Total Protein 6.8 g/dL (6.3-8.2)
[2021-12-05] MEDS: MULTIVITAMINS, THERA 1 EACH TAB PO SCH (09:30)
[2021-12-05] MEDS: SODIUM FERRIC GLUCONAT-SUCROSE 125 MG in SODIUM CHLORIDE 0.9% 100 ML IVPB SCH (09:30)
[2021-12-05] MEDS: PHENYTOIN SODIUM EXTENDED 100 MG CAP PO SCH (09:31)
[2021-12-05] MEDS: prednisoLONE ACETATE 1% OPHTH DROPS 5 ML BTL LEFT EYE SCH (09:32)
[2021-12-05] MEDS: KETOROLAC 0.5% OPHTH DROPS 5 ML BTL LEFT EYE SCH (09:32)
--- NOTE | 2021-12-05 11:15 | P.PN ---
Subjective Patient is seen in follow-up for hyponatremia. Sodium level stable. Oral intake has been fair. No vomiting or diarrhea. Hemodynamically stable. No active complaints. Blood sugars near 300. Vital signs are stable. General: Awake. No acute distress. HEENT: Head exam is unremarkable. LUNGS: Breath sounds decreased. HEART: Rate and Rhythm are regular. ABDOMEN: Soft, no distention. EXTREMITITES: No edema. Objective - Vital Signs Vital signs: Vital Signs Temp 98.1 F 12/05/21 08:00 Pulse 95 12/05/21 08:00 Resp 16 12/05/21 08:14 BP 130/70 12/05/21 08:00 Pulse Ox 94 L 12/05/21 08:00 FiO2 99 11/25/21 01:41 Intake & Output 12/04/21 12/05/21 12/05/21 18:59 06:59 18:59 Intake Total 480 236 Output Total 1000 Balance -520 236 Intake: Oral 480 236 Output: Urine 1000 Other: Voiding Method Toilet Toilet Toilet # Voids 1 2 - Labs CBC & Chem 7: 12/05/21 07:52 12/05/21 07:52 Labs: Abnormal Lab Results - Last 24 Hours (Table) 12/04/21 12/04/21 12/04/21 Range/Units 11:39 16:39 20:38 WBC (3.8-10.6) k/uL RBC (4.30-5.90) m/uL Hgb (13.0-17.5) gm/dL Hct (39.0-53.0) % MCV (80.0-100.0) fL MCH (25.0-35.0) pg MCHC (31.0-37.0) g/dL RDW (11.5-15.5) % Plt Count (150-450) k/uL Neutrophils # (1.3-7.7) k/uL Sodium (137-145) mmol/L Creatinine (0.66-1.25) mg/dL Glucose (74-99) mg/dL POC Glucose (mg/dL) 316 H 195 H 358 H (70-110) mg/dL Alkaline Phosphatase (38-126) U/L Albumin (3.5-5.0) g/dL 12/05/21 12/05/21 12/05/21 Range/Units 06:12 07:52 07:52 WBC 11.8 H (3.8-10.6) k/uL RBC 3.83 L (4.30-5.90) m/uL Hgb 7.8 L (13.0-17.5) gm/dL Hct 27.9 L (39.0-53.0) % MCV 72.7 L (80.0-100.0) fL MCH 20.4 L (25.0-35.0) pg MCHC 28.0 L (31.0-37.0) g/dL RDW 19.9 H (11.5-15.5) % Plt Count 616 H (150-450) k/uL Neutrophils # 8.6 H (1.3-7.7) k/uL Sodium 134 L (137-145) mmol/L Creatinine 0.58 L (0.66-1.25) mg/dL Glucose 291 H (74-99) mg/dL POC Glucose (mg/dL) 332 H (70-110) mg/dL Alkaline Phosphatase 169 H (38-126) U/L Albumin 3.2 L (3.5-5.0) g/dL Microbiology - Last 24 Hours (Table) 12/01/21 23:29 Blood Culture - Preliminary Blood No Growth after 72 hours 12/02/21 05:00 Urine Culture - Final Urine,Voided Staphylococcus aureus Assessment and Plan Plan: Assessment: 1. Hyponatremia secondary to SIADH, poor solute intake. Also component of hypertonicity secondary to hyperglycemia. Sodium level stable. Urine sodium 85 and urine osmolality 640. TSH normal. 2. Benign hypertension. Stable. 3. Anemia. Iron deficiency noted. Status post IV iron. 4. GI bleed status post EGD which showed antral gastritis. Hemoglobin 7.8 today. No active bleeding. Defer transfusion to primary team and surgery. 5. Diabetes mellitus. Plan: Encourage oral intake. 1200 mL fluid restriction. Blood sugar control. Repeat labs in the morning.
[2021-12-05 11:43] LABS: Glucose,Whole Blood 271 mg/dL (70-110)
[2021-12-05] MEDS: DIPHENOX-ATROP 2.5-0.025 MG 1 EACH TAB PO PRN (12:03)
[2021-12-05 12:05] VITALS: BP 146/74; PULSE 87; RESP 17; TEMP 98.4
--- NOTE | 2021-12-05 13:19 | P.PN ---
Subjective Progress Note Date: 12/05/21 CHIEF COMPLAINT: Anemia HISTORY OF PRESENT ILLNESS: Patient is lying in bed comfortably. He denies abdominal pain. Denies any nausea vomiting. He is tolerating diet. Patient reports having bowel movements. He denies any blood in his stools. Hemoglobin was down to 7.1 yesterday and patient was seen by hematology and restarted on IV iron. Hemoglobin today is 7.8. He is status post EGD which revealed antral gastritis and small hiatal hernia with no evidence of upper GI bleed. Colonoscopy was not completed due to poor bowel prep. But there was evidence of diverticulosis in the sigmoid colon. Patient seen and examined with Dr. Gonzalez PHYSICAL EXAM: VITAL SIGNS: Reviewed. GENERAL: Well-developed in no acute distress. HEENT: No sclera icterus. Extraocular movements grossly intact. Moist buccal mucosa. Head is atraumatic, normocephalic. ABDOMEN: Soft. Nondistended. Nontender. NEUROLOGIC: Alert and oriented. Cranial nerves II through XII grossly intact. ASSESSMENT: 1. Microcytic anemia with no active bleeding status post EGD with antral gastritis and small hiatal hernia. Colonoscopy showed diverticulosis with poor bowel prep 2. Iron deficiency 3. Severe protein calorie malnutrition PLAN: -Anemia workup per hematology -Continue regular diet -continue Protonix -Continue Ensure drinks to increase protein intake Physician Corporate Development Analyst note has been reviewed by physician. Signing provider agrees with the documented findings, assessment, and plan of care. Objective - Vital Signs Vital signs: Vital Signs Temp 98.4 F 12/05/21 12:00 Pulse 87 12/05/21 12:00 Resp 17 12/05/21 12:00 BP 146/74 12/05/21 12:00 Pulse Ox 97 12/05/21 12:00 FiO2 99 11/25/21 01:41 Intake & Output 12/04/21 12/05/21 12/05/21 18:59 06:59 18:59 Intake Total 480 236 Output Total 1000 Balance -520 236 Intake: Oral 480 236 Output: Urine 1000 Other: Voiding Method Toilet Toilet Toilet # Voids 1 2 - Labs CBC & Chem 7: 12/05/21 07:52 12/05/21 07:52 Labs: Abnormal Lab Results - Last 24 Hours (Table) 12/04/21 12/04/21 12/05/21 Range/Units 16:39 20:38 06:12 WBC (3.8-10.6) k/uL RBC (4.30-5.90) m/uL Hgb (13.0-17.5) gm/dL Hct (39.0-53.0) % MCV (80.0-100.0) fL MCH (25.0-35.0) pg MCHC (31.0-37.0) g/dL RDW (11.5-15.5) % Plt Count (150-450) k/uL Neutrophils # (1.3-7.7) k/uL Sodium (137-145) mmol/L Creatinine (0.66-1.25) mg/dL Glucose (74-99) mg/dL POC Glucose (mg/dL) 195 H 358 H 332 H (70-110) mg/dL Alkaline Phosphatase (38-126) U/L Albumin (3.5-5.0) g/dL 12/05/21 12/05/21 12/05/21 Range/Units 07:52 07:52 11:28 WBC 11.8 H (3.8-10.6) k/uL RBC 3.83 L (4.30-5.90) m/uL Hgb 7.8 L (13.0-17.5) gm/dL Hct 27.9 L (39.0-53.0) % MCV 72.7 L (80.0-100.0) fL MCH 20.4 L (25.0-35.0) pg MCHC 28.0 L (31.0-37.0) g/dL RDW 19.9 H (11.5-15.5) % Plt Count 616 H (150-450) k/uL Neutrophils # 8.6 H (1.3-7.7) k/uL Sodium 134 L (137-145) mmol/L Creatinine 0.58 L (0.66-1.25) mg/dL Glucose 291 H (74-99) mg/dL POC Glucose (mg/dL) 271 H (70-110) mg/dL Alkaline Phosphatase 169 H (38-126) U/L Albumin 3.2 L (3.5-5.0) g/dL Microbiology - Last 24 Hours (Table) 09/25/22 23:29 Blood Culture - Preliminary Blood No Growth after 72 hours 12/02/21 05:00 Urine Culture - Final Urine,Voided Staphylococcus aureus
== END 2021-12-05 16:37 | disposition home or self-care (01) | DRG 811 ==
LOC: EC 21:09 → 3SCARD 11-25 05:05
PROVIDERS: ADMIT Internal Medicine; ATTEND Internal Medicine
PROC: 0DB78ZX Excision of Stomach, Pylorus, Via Natural or Artificial Opening Endoscopic, Diagnostic (ICD-10-PCS; principal; 2021-11-28 08:25)
PROC: 0DJD8ZZ Inspection of Lower Intestinal Tract, Via Natural or Artificial Opening Endoscopic (ICD-10-PCS; 2021-11-28 08:25)
DX: D50.9 Iron deficiency anemia, unspecified (principal); E43 Unspecified severe protein-calorie malnutrition; K29.51 Unspecified chronic gastritis with bleeding; K57.31 Diverticulosis of large intestine without perforation or abscess with bleeding; E22.2 Syndrome of inappropriate secretion of antidiuretic hormone; L97.929 Non-pressure chronic ulcer of unspecified part of left lower leg with unspecified severity; Z68.1 Body mass index [BMI] 19.9 or less, adult; E11.649 Type 2 diabetes mellitus with hypoglycemia without coma; E11.42 Type 2 diabetes mellitus with diabetic polyneuropathy; I10 Essential (primary) hypertension; G40.909 Epilepsy, unspecified, not intractable, without status epilepticus; E11.65 Type 2 diabetes mellitus with hyperglycemia; L97.519 Non-pressure chronic ulcer of other part of right foot with unspecified severity; I95.9 Hypotension, unspecified; K44.9 Diaphragmatic hernia without obstruction or gangrene; R50.9 Fever, unspecified; M17.12 Unilateral primary osteoarthritis, left knee; R00.0 Tachycardia, unspecified; E83.42 Hypomagnesemia; R07.89 Other chest pain; E78.5 Hyperlipidemia, unspecified; Z20.822 Contact with and (suspected) exposure to COVID-19; Z86.14 Personal history of Methicillin resistant Staphylococcus aureus infection; Z79.84 Long term (current) use of oral hypoglycemic drugs; Z79.4 Long term (current) use of insulin; Z79.899 Other long term (current) drug therapy; Z89.412 Acquired absence of left great toe
CPT/HCPCS: 36415; 43239; 45378; 71045; 80048; 80053; 80185; 81003; 82009; 82272; 82607; 82728; 82746; 82803; 83036; 83540; 83550; 83605; 83735; 83880; 83921; 83935; 84100; 84295; 84300; 84443; 84484; 85025; 85379; 85610; 85730; 87040; 87077; 87086; 87186; 87324; 87636; 88305; 93005; 94760; 96365; 96375; 99285

== ENCOUNTER 2022-01-27 08:05 | Emergency (ER) | payer OTHER ==
[2022-01-27] MEDS ORDERED: ONDANSETRON 4 MG/2 ML VIAL IVP STA (08:30)
--- NOTE | 2022-01-27 08:41 | ED ---
SOB HPI - General Chief Complaint: Shortness of Breath Stated Complaint: SOB Time Seen by Provider: 01/27/22 08:17 Source: patient, RN notes reviewed Mode of arrival: ambulatory Limitations: no limitations - History of Present Illness Initial Comments: Patient is a 61 year old male with a past medical history significant for T1DM, hyperlipidemia and seizure disorder. Patient states he "doesn't feel well". He has felt short of breath for about 4 days worsening last night. He endorses shaking and a dry cough but denies any fevers or nightsweats. Patient admits to vomiting and nausea. He has taken anything for his symptoms. Patient states his last seizure was about a year and a half ago and he is currently on seizure medication. Patient denies headaches, chest pain/palpitations, abdominal pain, diarrhea, constipation or peripheral edema. - Related Data Home Medications Medication Instructions Recorded Confirmed Omeprazole 20 mg PO AC-BID 06/13/17 01/27/22 Diphenox-Atrop 2.5-0.025 mg 1 tab PO BID PRN 11/17/19 01/27/22 [Lomotil] Rosuvastatin [Crestor] 10 mg PO HS 05/15/20 01/27/22 Latanoprost/Pf [Latanoprost 0.005% 1 drop BOTH EYES HS 06/15/21 01/27/22 Eye Drop] Acetaminophen Tab [Tylenol] 325 mg PO Q6HR PRN 07/17/21 01/27/22 Ketorolac 0.5% Ophth Soln [Acular 1 drops LEFT EYE BID 08/30/21 01/27/22 0.5%] Mupirocin 2% Oint [Bactroban 2% 1 applic TOPICAL DAILY PRN 09/23/21 01/27/22 Oint] Insulin Lispro [Admelog] See Protocol SQ AC-TID 11/25/21 01/27/22 Triamcinolone 0.5% Cream [Kenalog 1 applic TOPICAL DAILY PRN 11/25/21 01/27/22 0.5% Cream] Insulin Glargine,Hum.rec.anlog 50 units SQ DAILY 01/27/22 01/27/22 [Lantus Solostar Pen] Previous Rx's Medication Instructions Recorded Ondansetron Odt [Zofran ODT] 4 mg PO Q8HR PRN #12 tab 07/29/21 Ferrous Sulfate [Feosol] 325 mg PO DAILY 30 Days #30 tab 12/05/21 Multivitamins, Thera [Multivitamin 1 each PO DAILY tab 12/05/21 (formulary)] Phenytoin Sodium Extended 100 mg PO BID cap 12/05/21 [Dilantin] Allergies Allergy/AdvReac Type Severity Reaction Status Date / Time No Known Allergies Allergy Verified 01/27/22 10:56 Review of Systems ROS Statement: Those systems with pertinent positive or pertinent negative responses have been documented in the HPI. ROS Other: All systems not noted in ROS Statement are negative. Past Medical History Past Medical History: Diabetes Mellitus, Diabetes Mellitus, GERD/Reflux, H yperlipidemia, Osteoarthritis (OA), Seizure Disorder Additional Past Medical History / Comment(s): IDDM type 1 per pt, bilateral feet neuropathy, pt states current wounds to bilateral feet/goes to 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 History of Any Multi-Drug Resistant Organisms: MRSA Date of last positivie culture/infection: 12/29/19 MDRO Source:: Left Leg Past Surgical History: Orthopedic Surgery, Tonsillectomy Additional Past Surgical History / Comment(s): 01/23/20 angiogram L leg, c ancerous tumor removed from left wrist, colonoscopy, L eye surgery for strabismus. Past Anesthesia/Blood Transfusion Reactions: No Reported Reaction Past Psychological History: Depression Smoking Status: Never smoker Past Alcohol Use History: None Reported Past Drug Use History: None Reported - Past Family History Father Family Medical History: Myocardial Infarction (NH) Additional Family Medical History / Comment(s): Father of a NH at the age of 57yrs. Mother Family Medical History: Cancer Additional Family Medical History / Comment(s): Mother from cancer at the age of 61 or 62 . Pt cannot recall type of cancer. Sister(s) Family Medical History: Diabetes Mellitus Additional Family Medical History / Comment(s): Sister had DM type 1. She is . General Exam Limitations: no limitations General appearance: alert, in no apparent distress Head exam: Present: atraumatic, normocephalic, normal inspection Eye exam: Present: normal appearance, PERRL, EOMI. Absent: scleral icterus, conjunctival injection, periorbital swelling ENT exam: Present: normal exam, mucous membranes moist Neck exam: Present: normal inspection. Absent: tenderness, meningismus, lymphadenopathy Respiratory exam: Present: normal lung sounds bilaterally Cardiovascular Exam: Present: tachycardia, normal heart sounds GI/Abdominal exam: Present: soft, normal bowel sounds. Absent: distended, tenderness, guarding, rebound, rigid Extremities exam: Present: normal inspection, full ROM, normal capillary refill. Absent: tenderness, pedal edema, joint swelling, calf tenderness Back exam: Present: normal inspection Neurological exam: Present: alert, oriented X3, CN II-XII intact Psychiatric exam: Present: normal affect, normal mood Skin exam: Present: warm, other (multiple skin abrasions noted on bilateral shoulders and lower extremities ) Course Vital Signs 01/27/22 01/27/22 01/27/22 08:14 09:16 09:21 Temperature 98.9 F Pulse Rate 135 H 122 H 125 H Respiratory 20 18 17 Rate Blood Pressure 153/78 165/89 165/89 O2 Sat by Pulse 99 96 96 Oximetry 01/27/22 01/27/22 10:00 11:00 Temperature Pulse Rate 118 H 120 H Respiratory 19 18 Rate Blood Pressure 152/80 165/45 O2 Sat by Pulse 95 95 Oximetry Medical Decision Making - Medical Decision Making 61-year-old presented for complaints of not feeling well. Patient for workup patient was initially tachycardic but is improved after IV fluids. He was hyperglycemic though not safely acidotic. Patient was given fluid bolus does feel improved. Patient's CT of the chest was read and does not show evidence of PE. Patient we discharged with follow-up with PCP return parameters were discussed. - Lab Data Result diagrams: 01/27/22 08:33 01/27/22 08:33 Lab Results 01/27/22 01/27/22 01/27/22 Range/Units 08:33 08:33 08:33 WBC 16.9 H (3.8-10.6) k/uL RBC 4.63 (4.30-5.90) m/uL Hgb 11.1 L D (13.0-17.5) gm/dL Hct 35.4 L (39.0-53.0) % MCV 76.4 L (80.0-100.0) fL MCH 23.9 L (25.0-35.0) pg MCHC 31.3 (31.0-37.0) g/dL RDW 20.0 H (11.5-15.5) % Plt Count 528 H (150-450) k/uL MPV 7.6 Neutrophils % 95 % Lymphocytes % 2 % Monocytes % 2 % Eosinophils % 0 % Basophils % 0 % Neutrophils # 16.0 H (1.3-7.7) k/uL Lymphocytes # 0.4 L (1.0-4.8) k/uL Monocytes # 0.4 (0-1.0) k/uL Eosinophils # 0.1 (0-0.7) k/uL Basophils # 0.0 (0-0.2) k/uL Hypochromasia Moderate Anisocytosis Slight Microcytosis Moderate PT 9.6 (9.0-12.0) sec INR 0.9 (<1.2) APTT 26.9 (22.0-30.0) sec D-Dimer 2.35 H (<0.60) mg/L FEU Sodium 132 L (137-145) mmol/L Potassium 4.5 (3.5-5.1) mmol/L Chloride 92 L (98-107) mmol/L Carbon Dioxide 30 (22-30) mmol/L Anion Gap 10 mmol/L BUN 15 (9-20) mg/dL Creatinine 0.91 (0.66-1.25) mg/dL Est GFR (CKD-EPI)AfAm >90 (>60 ml/min/1.73 sqM) Est GFR (CKD-EPI)NonAf >90 (>60 ml/min/1.73 sqM) Glucose 447 H (74-99) mg/dL POC Glucose (mg/dL) (70-110) mg/dL POC Glu Expeller Worker ID Plasma Lactic Acid Michael (0.7-2.0) mmol/L Calcium 8.7 (8.4-10.2) mg/dL Magnesium 2.0 (1.6-2.3) mg/dL Total Bilirubin 0.4 (0.2-1.3) mg/dL AST 15 L (17-59) U/L ALT 12 (4-49) U/L Alkaline Phosphatase 133 H (38-126) U/L Troponin I (0.000-0.034) ng/mL NT-Pro-B Natriuret Pep pg/mL Total Protein 7.5 (6.3-8.2) g/dL Albumin 3.7 (3.5-5.0) g/dL Influenza Type A (PCR) (Not Detectd) Influenza Type B (PCR) (Not Detectd) RSV (PCR) (Not Detectd) SARS-CoV-2 (PCR) (Not Detectd) 01/27/22 01/27/22 01/27/22 Range/Units 08:33 08:33 08:33 WBC (3.8-10.6) k/uL RBC (4.30-5.90) m/uL Hgb (13.0-17.5) gm/dL Hct (39.0-53.0) % MCV (80.0-100.0) fL MCH (25.0-35.0) pg MCHC (31.0-37.0) g/dL RDW (11.5-15.5) % Plt Count (150-450) k/uL MPV Neutrophils % % Lymphocytes % % Monocytes % % Eosinophils % % Basophils % % Neutrophils # (1.3-7.7) k/uL Lymphocytes # (1.0-4.8) k/uL Monocytes # (0-1.0) k/uL Eosinophils # (0-0.7) k/uL Basophils # (0-0.2) k/uL Hypochromasia Anisocytosis Microcytosis PT (9.0-12.0) sec INR (<1.2) APTT (22.0-30.0) sec D-Dimer (<0.60) mg/L FEU Sodium (137-145) mmol/L Potassium (3.5-5.1) mmol/L Chloride (98-107) mmol/L Carbon Dioxide (22-30) mmol/L Anion Gap mmol/L BUN (9-20) mg/dL Creatinine (0.66-1.25) mg/dL Est GFR (CKD-EPI)AfAm (>60 ml/min/1.73 sqM) Est GFR (CKD-EPI)NonAf (>60 ml/min/1.73 sqM) Glucose (74-99) mg/dL POC Glucose (mg/dL) (70-110) mg/dL POC Glu Expeller Worker ID Plasma Lactic Acid Michael 1.5 (0.7-2.0) mmol/L Calcium (8.4-10.2) mg/dL Magnesium (1.6-2.3) mg/dL Total Bilirubin (0.2-1.3) mg/dL AST (17-59) U/L ALT (4-49) U/L Alkaline Phosphatase (38-126) U/L Troponin I <0.012 (0.000-0.034) ng/mL NT-Pro-B Natriuret Pep 271 pg/mL Total Protein (6.3-8.2) g/dL Albumin (3.5-5.0) g/dL Influenza Type A (PCR) (Not Detectd) Influenza Type B (PCR) (Not Detectd) RSV (PCR) (Not Detectd) SARS-CoV-2 (PCR) (Not Detectd) 01/27/22 01/27/22 Range/Units 08:33 11:45 WBC (3.8-10.6) k/uL RBC (4.30-5.90) m/uL Hgb (13.0-17.5) gm/dL Hct (39.0-53.0) % MCV (80.0-100.0) fL MCH (25.0-35.0) pg MCHC (31.0-37.0) g/dL RDW (11.5-15.5) % Plt Count (150-450) k/uL MPV Neutrophils % % Lymphocytes % % Monocytes % % Eosinophils % % Basophils % % Neutrophils # (1.3-7.7) k/uL Lymphocytes # (1.0-4.8) k/uL Monocytes # (0-1.0) k/uL Eosinophils # (0-0.7) k/uL Basophils # (0-0.2) k/uL Hypochromasia Anisocytosis Microcytosis PT (9.0-12.0) sec INR (<1.2) APTT (22.0-30.0) sec D-Dimer (<0.60) mg/L FEU Sodium (137-145) mmol/L Potassium (3.5-5.1) mmol/L Chloride (98-107) mmol/L Carbon Dioxide (22-30) mmol/L Anion Gap mmol/L BUN (9-20) mg/dL Creatinine (0.66-1.25) mg/dL Est GFR (CKD-EPI)AfAm (>60 ml/min/1.73 sqM) Est GFR (CKD-EPI)NonAf (>60 ml/min/1.73 sqM) Glucose (74-99) mg/dL POC Glucose (mg/dL) 373 H (70-110) mg/dL POC Glu Expeller Worker ID Paty Escobar Plasma Lactic Acid Michael (0.7-2.0) mmol/L Calcium (8.4-10.2) mg/dL Magnesium (1.6-2.3) mg/dL Total Bilirubin (0.2-1.3) mg/dL AST (17-59) U/L ALT (4-49) U/L Alkaline Phosphatase (38-126) U/L Troponin I (0.000-0.034) ng/mL NT-Pro-B Natriuret Pep pg/mL Total Protein (6.3-8.2) g/dL Albumin (3.5-5.0) g/dL Influenza Type A (PCR) Not Detected (Not Detectd) Influenza Type B (PCR) Not Detected (Not Detectd) RSV (PCR) Not Detected (Not Detectd) SARS-CoV-2 (PCR) Not Detected (Not Detectd) Disposition Clinical Impression: Dehydration, Hyperglycemia, Uncontrolled diabetes mellitus Disposition: HOME SELF-CARE Condition: Stable Instructions (If sedation given, give patient instructions): Diabetic Hyperglycemia (ED) Additional Instructions: Please return to the Emergency Department if symptoms worsen or any other concerns. Is patient prescribed a controlled substance at d/c from ED?: No Referrals: Helen Chen MD [Primary Care Provider] - 1-2 days Time of Disposition: 11:57
[2022-01-27] MEDS ORDERED: SODIUM CHLORIDE 0.9% 1,000 ML IV ONE (08:42)
[2022-01-27 09:01] LABS: Anisocytosis Slight; Basophils % (A) 0 %; Eosinophils # (A) 0.1 k/uL (0-0.7); Eosinophils % (A) 0 %; HCT 35.4 % (39.0-53.0); Hypochromasia Moderate; Lymphocytes # (A) 0.4 k/uL (1.0-4.8); Lymphocytes % (A) 2 %; MCH 23.9 pg (25.0-35.0); MCHC 31.3 g/dL (31.0-37.0); MCV 76.4 fL (80.0-100.0); Mean Platelet Volume 7.6; Microcytosis Moderate; Monocytes # (A) 0.4 k/uL (0-1.0); Monocytes % (A) 2 %; Neutrophils % (A) 95 %; Platelet Count 528 k/uL (150-450); RBC 4.63 m/uL (4.30-5.90); WBC 16.9 k/uL (3.8-10.6)
[2022-01-27 09:02] LABS: HGB 11.1 gm/dL (13.0-17.5)
[2022-01-27 09:08] LABS: INR 0.9 (<1.2); Partial Thromboplastin Time 26.9 sec (22.0-30.0); Prothrombin Time 9.6 sec (9.0-12.0)
--- NOTE | 2022-01-27 09:10 | XR ---
EXAMINATION TYPE: XR chest 2V DATE OF EXAM: 01/27/2022 COMPARISON: 11/24/21 HISTORY: Shortness of breath TECHNIQUE: Frontal and lateral views of the chest are obtained. FINDINGS: Scattered senescent parenchymal changes noted. No evidence for infiltrate. No evidence for atelectasis. Heart size is stable. Mediastinal structures are stable and grossly unremarkable. No evidence for hilar prominence. Degenerative changes dorsal spine. IMPRESSION: 1. No evidence for acute pulmonary disease.
[2022-01-27 10:05] LABS: ALT 12 U/L (4-49); AST 15 U/L (17-59); African American GFR (CKD) >90 (>60 ml/min/1.73 sqM); Albumin 3.7 g/dL (3.5-5.0); Alkaline Phosphatase 133 U/L (38-126); Anion Gap 10 mmol/L; Blood Urea Nitrogen 15 mg/dL (9-20); Calcium 8.7 mg/dL (8.4-10.2); Carbon Dioxide 30 mmol/L (22-30); Chloride 92 mmol/L (98-107); Glucose 447 mg/dL (74-99); Non-African American GFR(CKD) >90 (>60 ml/min/1.73 sqM); Potassium 4.5 mmol/L (3.5-5.1); Sodium 132 mmol/L (137-145); Total Bilirubin 0.4 mg/dL (0.2-1.3); Total Protein 7.5 g/dL (6.3-8.2)
--- NOTE | 2022-01-27 10:38 | CT ---
EXAMINATION TYPE: CT chest angio for PE CT DLP: 165.3 mGycm, Automated exposure control for dose reduction was used. DATE OF EXAM: 01/27/2022 10:30 AM COMPARISON: Chest radiograph from same day. Multiple CTs of the chest with most recent on 08/30/2021. CLINICAL INDICATION:Male, 61 years old with history of sob; elevated d-dimer, SOB TECHNIQUE/CONTRAST: CTA scan of the thorax is performed with IV Contrast, patient injected with 100 mL of Isovue 370, pul monary embolism protocol. MIP images are created and reviewed. FINDINGS: Pulmonary Artery: There is no evidence for a filling defect within the pulmonary vasculature to sugge st acute pulmonary embolism. The pulmonary artery is of normal size. Lungs/Pleura: No evidence of focal consolidation, pleural effusion or pneumothorax. Airway: Large airways are patent. Heart: Heart is within normal limits for size.. Vasculature: No evidence of aortic aneurysm. Mediastinum: No gross evidence of adenopathy. Musculoskeletal: No acute osseous abnormalities, multilevel disc degeneration changes of the spine ar e mild. Soft Tissues: Unremarkable. Lower neck: No significant findings. Upper Abdomen: No significant findings. IMPRESSION: No evidence of pulmonary embolism.
[2022-01-27] MEDS ORDERED: SODIUM CHLORIDE 0.9% 500 ML 500 ML IV ONE (10:50)
[2022-01-27 11:19] VITALS: RESP 18
[2022-01-27 11:47] LABS: Glucose,Whole Blood 373 mg/dL (70-110)
[2022-01-27 12:21] VITALS: BP 142/77; PULSE 110; TEMP 97.8
== END 2022-01-27 12:20 | disposition home or self-care (01) ==
LOC: EC 08:05
DX: E10.65 Type 1 diabetes mellitus with hyperglycemia (principal); E86.0 Dehydration; E78.5 Hyperlipidemia, unspecified; K21.9 Gastro-esophageal reflux disease without esophagitis; F32.A Depression, unspecified; Z79.899 Other long term (current) drug therapy; Z20.822 Contact with and (suspected) exposure to COVID-19
CPT/HCPCS: 99285; 96374; 96361; 36415; 93005; 85379; 83880; 80053; 83605; 83735; 84484; 85025; 85610; 85730; 87636; 71046; 71275; J2405; Q9967

== ENCOUNTER 2022-02-13 16:23 | Inpatient (IN) | payer OTHER ==
[2022-02-13] MEDS ORDERED: AMPICILLIN-SULBACTAM 3 GM in SODIUM CHLORIDE 0.9% 100 ML IVPB STA (22:31)
[2022-02-13] MEDS ORDERED: SODIUM CHLORIDE 0.9% 1,000 ML IV ONE (22:32)
--- NOTE | 2022-02-13 22:33 | XR ---
EXAMINATION TYPE: XR foot complete RT DATE OF EXAM: 02/13/2022 COMPARISON: 05/10/2021 HISTORY: Foot infection TECHNIQUE: 3 views FINDINGS: There is extensive destructive change involving the tuft of the distal phalanx of the big t oe. There is also destructive changes in the head of the first metatarsal. There is soft tissue swell ing. There is mild vascular calcification. There is soft tissue swelling the forefoot. IMPRESSION: Destructive changes in the big toe and the first metatarsal head consistent with osteomye litis and appears new compared to old exam.
[2022-02-13] MEDS ORDERED: VANCOMYCIN IV PER PHARMACY 1 EACH MISC MISCELLANE PRN (22:36)
[2022-02-13] MEDS ORDERED: cefTRIAXone IN SWFI 1,000 MG/10 ML SYRINGE IVP STA (22:36)
--- NOTE | 2022-02-13 22:51 | ED ---
Extremity Problem HPI - General Chief complaint: Extremity Problem,Nontraumatic Stated complaint: rt foot wound Time Seen by Provider: 02/13/22 21:59 Source: patient Mode of arrival: wheelchair Limitations: no limitations - History of Present Illness Initial comments: Patient is a 61-year-old male with history of diabetes presenting with chief complaint of wound to the right foot. Patient follows with low pressure firer Dr. Major, states that over the last 2 weeks the wound to the plantar side just inferior to the greater toe has been worsening. There is increased drainage. Patient saw his low pressure firer today who sent him here for treatment. No fever or c hills. No nausea or vomiting. Patient has pre-existing bilateral neuropathy. No chest pain, difficulty breathing, abdominal pain. - Related Data Home Medications Medication Instructions Recorded Confirmed Omeprazole 20 mg PO AC-BID 06/13/17 02/14/22 Diphenox-Atrop 2.5-0.025 mg 1 tab PO BID PRN 11/17/19 02/14/22 [Lomotil] Rosuvastatin [Crestor] 10 mg PO DAILY 05/15/20 02/14/22 Latanoprost/Pf [Latanoprost 0.005% 1 drop BOTH EYES HS 06/15/21 02/14/22 Eye Drop] Acetaminophen Tab [Tylenol] 325 mg PO Q6HR PRN 07/17/21 02/14/22 Insulin Lispro [Admelog] See Protocol SQ AC-TID 11/25/21 02/14/22 Triamcinolone 0.5% Cream [Kenalog 1 applic TOPICAL DAILY PRN 11/25/21 02/14/22 0.5% Cream] Insulin Glargine,Hum.rec.anlog 50 units SQ DAILY 01/27/22 02/14/22 [Lantus Solostar Pen] Phenytoin Sodium Extended 200 mg PO BID 02/14/22 02/14/22 [Dilantin] Pioglitazone [Actos] 15 mg PO DAILY 02/14/22 02/14/22 Previous Rx's Medication Instructions Recorded Ondansetron Odt [Zofran ODT] 4 mg PO Q8HR PRN #12 tab 07/29/21 Allergies Allergy/AdvReac Type Severity Reaction Status Date / Time No Known Allergies Allergy Verified 02/14/22 07:05 Review of Systems ROS Statement: Those systems with pertinent positive or pertinent negative responses have been documented in the HPI. ROS Other: All systems not noted in ROS Statement are negative. 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 History of Any Multi-Drug Resistant Organisms: MRSA Date of last positivie culture/infection: 12/29/19 MDRO Source:: Left Leg Past Surgical History: Orthopedic Surgery, Tonsillectomy Additional Past Surgical History / Comment(s): 01/23/20 angiogram L leg, 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, colonoscopy, L eye surgery for strabismus. Past Anesthesia/Blood Transfusion Reactions: No Reported Reaction Past Psychological History: Depression Smoking Status: Never smoker Past Alcohol Use History: None Reported Past Drug Use History: None Reported - Past Family History Father Family Medical History: Myocardial Infarction (MT) Additional Family Medical History / Comment(s): Father of a MT at the age of 57yrs. Mother Family Medical History: Cancer Additional Family Medical History / Comment(s): Mother from cancer at the age of 61 or 62 . Pt cannot recall type of cancer. Sister(s) Family Medical History: Diabetes Mellitus Additional Family Medical History / Comment(s): Sister had DM type 1. She is . General Exam Limitations: no limitations General appearance: alert, in no apparent distress Head exam: Present: atraumatic, normocephalic, normal inspection Eye exam: Present: normal appearance Neck exam: Present: normal inspection Respiratory exam: Present: normal lung sounds bilaterally. Absent: respiratory distress, wheezes, rales, rhonchi, stridor Cardiovascular Exam: Present: regular rate, normal rhythm, normal heart sounds. Absent: systolic murmur, diastolic murmur, rubs, gallop, clicks Neurological exam: Present: alert, oriented X3, CN II-XII intact Psychiatric exam: Present: normal affect, normal mood Skin exam: Present: other (open ulcerated wound on the plantar surface of the R foot) Course Vital Signs 02/13/22 02/14/22 02/14/22 16:43 06:04 11:36 Temperature 98.3 F 98.4 F Pulse Rate 100 71 89 Respiratory 20 15 18 Rate Blood Pressure 168/76 146/74 143/81 O2 Sat by Pulse 97 100 96 Oximetry 02/14/22 15:15 Temperature Pulse Rate 87 Respiratory 18 Rate Blood Pressure 147/89 O2 Sat by Pulse 96 Oximetry Medical Decision Making - Medical Decision Making patient is a 61-year-old male presenting with chief complaint of wound to the right foot. He was seen by his low pressure firer today who advised him to report to the ER for IV antibiotics. On examination there is a large ulcerated open wound on the plantar surface near the great toe. X-ray shows evidence of osteomyelitis. Blood cultures as well as vancomycin and Rocephin are ordered. Wound culture is obtained. Labs are pending at this time. I spoke with Dr. Chen who accepted admission. Patient is agreeable with this plan. I discussed this case with my attending Dr. Kidd. - Lab Data Result diagrams: 02/14/22 00:18 02/14/22 00:18 Lab Results 02/14/22 02/14/22 02/14/22 Range/Units 00:18 00:18 00:18 WBC 5.8 (3.8-10.6) k/uL RBC 3.60 L (4.30-5.90) m/uL Hgb 8.4 L D (13.0-17.5) gm/dL Hct 28.1 L (39.0-53.0) % MCV 78.1 L (80.0-100.0) fL MCH 23.3 L (25.0-35.0) pg MCHC 29.8 L (31.0-37.0) g/dL RDW 19.9 H (11.5-15.5) % Plt Count 535 H (150-450) k/uL MPV 7.2 Neutrophils % 71 % Lymphocytes % 19 % Monocytes % 4 % Eosinophils % 3 % Basophils % 1 % Neutrophils # 4.1 (1.3-7.7) k/uL Lymphocytes # 1.1 (1.0-4.8) k/uL Monocytes # 0.2 (0-1.0) k/uL Eosinophils # 0.2 (0-0.7) k/uL Basophils # 0.1 (0-0.2) k/uL Hypochromasia Marked Anisocytosis Slight Microcytosis Moderate Sodium 136 L (137-145) mmol/L Potassium 4.0 (3.5-5.1) mmol/L Chloride 103 (98-107) mmol/L Carbon Dioxide 31 H (22-30) mmol/L Anion Gap 2 mmol/L BUN 10 (9-20) mg/dL Creatinine 0.69 (0.66-1.25) mg/dL Est GFR (CKD-EPI)AfAm >90 (>60 ml/min/1.73 sqM) Est GFR (CKD-EPI)NonAf >90 (>60 ml/min/1.73 sqM) Glucose 315 H (74-99) mg/dL Estimated Ave Glu mg/dL Hemoglobin A1c (0.0-6.0) % Plasma Lactic Acid Michael 0.8 (0.7-2.0) mmol/L Calcium 8.1 L (8.4-10.2) mg/dL Total Bilirubin 0.2 (0.2-1.3) mg/dL AST 12 L (17-59) U/L ALT 12 (4-49) U/L Alkaline Phosphatase 133 H (38-126) U/L Total Protein 6.3 (6.3-8.2) g/dL Albumin 2.9 L (3.5-5.0) g/dL 02/14/22 Range/Units 00:18 WBC (3.8-10.6) k/uL RBC (4.30-5.90) m/uL Hgb (13.0-17.5) gm/dL Hct (39.0-53.0) % MCV (80.0-100.0) fL MCH (25.0-35.0) pg MCHC (31.0-37.0) g/dL RDW (11.5-15.5) % Plt Count (150-450) k/uL MPV Neutrophils % % Lymphocytes % % Monocytes % % Eosinophils % % Basophils % % Neutrophils # (1.3-7.7) k/uL Lymphocytes # (1.0-4.8) k/uL Monocytes # (0-1.0) k/uL Eosinophils # (0-0.7) k/uL Basophils # (0-0.2) k/uL Hypochromasia Anisocytosis Microcytosis Sodium (137-145) mmol/L Potassium (3.5-5.1) mmol/L Chloride (98-107) mmol/L Carbon Dioxide (22-30) mmol/L Anion Gap mmol/L BUN (9-20) mg/dL Creatinine (0.66-1.25) mg/dL Est GFR (CKD-EPI)AfAm (>60 ml/min/1.73 sqM) Est GFR (CKD-EPI)NonAf (>60 ml/min/1.73 sqM) Glucose (74-99) mg/dL Estimated Ave Glu mg/dL 306 Hemoglobin A1c 12.3 H (0.0-6.0) % Plasma Lactic Acid Michael (0.7-2.0) mmol/L Calcium (8.4-10.2) mg/dL Total Bilirubin (0.2-1.3) mg/dL AST (17-59) U/L ALT (4-49) U/L Alkaline Phosphatase (38-126) U/L Total Protein (6.3-8.2) g/dL Albumin (3.5-5.0) g/dL Disposition Clinical Impression: Osteomyelitis Disposition: ADMITTED IP TO THIS [facility] Condition: Fair Time of Disposition: 00:44 Decision to Admit Reason: Admit from EC Decision Date: 02/14/22 Decision Time: 00:44
[2022-02-13] MEDS ORDERED: VANCOMYCIN 1,000 MG in SODIUM CHLORIDE 0.9% 250 ML IVPB ONE (23:30)
[2022-02-13] MEDS: SODIUM CHLORIDE 0.9% 1,000 ML IV SCH (23:45)
[2022-02-14] MEDS ORDERED: NALOXONE 0.4 MG/ML 1 ML VIAL IV PRN (00:46)
[2022-02-14] MEDS ORDERED: DIPHENOX-ATROP 2.5-0.025 MG 1 EACH TAB PO PRN (09:09)
[2022-02-14] MEDS ORDERED: ACETAMINOPHEN TAB 325 MG TAB PO PRN (09:09)
[2022-02-14] MEDS ORDERED: TRIAMCINOLONE ACET 0.5% CREAM 15 GM TUBE TOPICAL PRN (09:09)
[2022-02-14] MEDS ORDERED: ONDANSETRON ODT 4 MG TAB PO PRN (09:09)
[2022-02-14] MEDS ORDERED: DEXTROSE 50% SYRINGE 50 ML IVP PRN ×2 (09:10)
[2022-02-14 09:22] LABS: ALT 12 U/L (4-49); AST 12 U/L (17-59); African American GFR (CKD) >90 (>60 ml/min/1.73 sqM); Albumin 2.9 g/dL (3.5-5.0); Alkaline Phosphatase 133 U/L (38-126); Anion Gap 2 mmol/L; Blood Urea Nitrogen 10 mg/dL (9-20); Calcium 8.1 mg/dL (8.4-10.2); Carbon Dioxide 31 mmol/L (22-30); Chloride 103 mmol/L (98-107); Glucose 315 mg/dL (74-99); Non-African American GFR(CKD) >90 (>60 ml/min/1.73 sqM); Sodium 136 mmol/L (137-145); Total Bilirubin 0.2 mg/dL (0.2-1.3); Total Protein 6.3 g/dL (6.3-8.2)
[2022-02-14 09:28] LABS: Anisocytosis Slight; Basophils # (A) 0.1 k/uL (0-0.2); Basophils % (A) 1 %; Eosinophils # (A) 0.2 k/uL (0-0.7); Eosinophils % (A) 3 %; HCT 28.1 % (39.0-53.0); Hypochromasia Marked; Lymphocytes # (A) 1.1 k/uL (1.0-4.8); Lymphocytes % (A) 19 %; MCH 23.3 pg (25.0-35.0); MCHC 29.8 g/dL (31.0-37.0); MCV 78.1 fL (80.0-100.0); Mean Platelet Volume 7.2; Microcytosis Moderate; Monocytes # (A) 0.2 k/uL (0-1.0); Monocytes % (A) 4 %; Neutrophils # (A) 4.1 k/uL (1.3-7.7); Neutrophils % (A) 71 %; Platelet Count 535 k/uL (150-450); RDW 19.9 % (11.5-15.5); WBC 5.8 k/uL (3.8-10.6)
[2022-02-14 09:32] LABS: HGB 8.4 gm/dL (13.0-17.5)
--- NOTE | 2022-02-14 10:52 | P.HPIM ---
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 Patient was recently treated at [facility] with IV antibiotics. At that time basilar surgery was recommending amputation of foot but patient declined. Patient reports he has been receiving his IV antibiotic infusion. Additional medical history includes diabetes mellitus type 2 with poor control, chronic lower extremity infection, seizure disorder, hyperlipidemia and anemia. Foot x-ray completed showing the structure changes in the big toe and the first metatarsal head consistent with osteomyelitis and appears new compared to old exam. Patient was started on IV vancomycin. Infectious disease service is consulted. We'll also consult vascular surgeon per patient's choice. Blood culture and repeat labs ordered. Repeat labs temp 90.3, heart rate 100, respiratory rate 20, blood pressure 146/74 with possible some 100% on room air Review of Systems Please refer to HPI otherwise unremarkable Past Medical History Past Medical History: Diabetes Mellitus, Diabetes Mellitus, GERD/Reflux, Hyperlipidemia, Osteoarthritis (OA), Seizure Disorder Additional Past Medical History / Comment(s): IDDM type 1 per pt, bilateral feet neuropathy, pt states current wounds to bilateral feet/goes to [facility]/seen by Dr. Major (clerical assigner), past L lower extremity cellulitis with sepsis, L wrist cancerous tumor removed, past seizure about a year ago, arthritis L knee, vertigo, occasional diarrhea. History of Any Multi-Drug Resistant Organisms: MRSA Date of last positivie culture/infection: 12/29/19 MDRO Source:: Left Leg Past Surgical History: Orthopedic Surgery, Tonsillectomy Additional Past Surgical History / Comment(s): 01/23/20 angiogram L leg, 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, colonoscopy, L eye surgery for strabismus. Past Anesthesia/Blood Transfusion Reactions: No Reported Reaction Past Psychological History: Depression Smoking Status: Never smoker Past Alcohol Use History: None Reported Past Drug Use History: None Reported - Past Family History Father Family Medical History: Myocardial Infarction ([place]) Additional Family Medical History / Comment(s): Father of a [place] at the age of 57yrs. Mother Family Medical History: Cancer Additional Family Medical History / Comment(s): Mother from cancer at the age of 61 or 62 . Pt cannot recall type of cancer. Sister(s) Family Medical History: Diabetes Mellitus Additional Family Medical History / Comment(s): Sister had DM type 1. She is . Medications and Allergies Home Medications Medication Instructions Recorded Confirmed Type Omeprazole 20 mg PO AC-BID 06/13/17 02/14/22 History Diphenox-Atrop 2.5-0.025 mg 1 tab PO BID PRN 11/17/19 02/14/22 History [Lomotil] Rosuvastatin [Crestor] 10 mg PO DAILY 05/15/20 02/14/22 History Latanoprost/Pf [Latanoprost 0.005% 1 drop BOTH EYES HS 06/15/21 02/14/22 History Eye Drop] Acetaminophen Tab [Tylenol] 325 mg PO Q6HR PRN 07/17/21 02/14/22 History Ondansetron Odt [Zofran ODT] 4 mg PO Q8HR PRN #12 tab 07/29/21 02/14/22 Rx Insulin Lispro [Admelog] See Protocol SQ AC-TID 11/25/21 02/14/22 History Triamcinolone 0.5% Cream [Kenalog 1 applic TOPICAL DAILY PRN 11/25/21 02/14/22 History 0.5% Cream] Insulin Glargine,Hum.rec.anlog 50 units SQ DAILY 01/27/22 02/14/22 History [Lantus Solostar Pen] Phenytoin Sodium Extended 200 mg PO BID 02/14/22 02/14/22 History [Dilantin] Pioglitazone [Actos] 15 mg PO DAILY 02/14/22 02/14/22 History Allergies Allergy/AdvReac Type Severity Reaction Status Date / Time No Known Allergies Allergy Verified 02/14/22 07:05 Physical Exam Vitals: Vital Signs Temp Pulse Resp BP Pulse Ox 02/14/22 06:04 71 15 146/74 100 02/13/22 16:43 98.3 F 100 20 168/76 97 Intake and Output 02/13/22 02/14/22 02/14/22 22:59 06:59 14:59 Other: Weight 47.627 kg Head normocephalic Neck supple Lungs clear to auscultation bilaterally no wheezing or crackles Heart regular rate and rhythm S1-S2, no rub or gallop Abdomen is soft nontender nondistended positive bowel sounds no hepatosplenomegaly Extremities no edema. Open ulcer noted to plantar surface of the right foot Neuro alert and orientated to 3 Results CBC & Chem 7: 02/14/22 00:18 02/14/22 00:18 Labs: Abnormal Lab Results - Last 24 Hours (Table) 02/14/22 02/14/22 Range/Units 00:18 00:18 RBC 3.60 L (4.30-5.90) m/uL Hgb 8.4 L D (13.0-17.5) gm/dL Hct 28.1 L (39.0-53.0) % MCV 78.1 L (80.0-100.0) fL MCH 23.3 L (25.0-35.0) pg MCHC 29.8 L (31.0-37.0) g/dL RDW 19.9 H (11.5-15.5) % Plt Count 535 H (150-450) k/uL Sodium 136 L (137-145) mmol/L Carbon Dioxide 31 H (22-30) mmol/L Glucose 315 H (74-99) mg/dL Calcium 8.1 L (8.4-10.2) mg/dL AST 12 L (17-59) U/L Alkaline Phosphatase 133 H (38-126) U/L Albumin 2.9 L (3.5-5.0) g/dL Microbiology - Last 24 Hours (Table) 02/14/22 00:15 Wound Culture - Preliminary Foot - Right Assessment and Plan Assessment: Right foot wound with concerns of osteomyelitis Underlying history of insulin-dependent diabetes mellitus Underlying history of chronic lower extremity infection was open ulcers followed at the wound care clinic Underlying history of seizure disorder maintained on Dilantin Underlying history of hyperlipidemia Anemia GI prophylaxis Lovenox. GI prophylaxis Protonix Infectious disease and vascular surgery consulted Continue with IV vancomycin Blood culture and repeat labs ordered Time with Patient: Greater than 30 (Greater than 60% of the total time spent in counseling and coordination of care)
[2022-02-14] MEDS: VANCOMYCIN 750 MG in SODIUM CHLORIDE 0.9% 250 ML IVPB SCH ×2 (11:31→21:55)
[2022-02-14 12:47] LABS: Glucose,Whole Blood 463 mg/dL (70-110)
[2022-02-14] MEDS: INSULIN ASPART (NovoLOG) 100 UNIT/ML VIAL SQ SCH ×3 (13:16→21:55)
[2022-02-14 15:17] LABS: Glucose,Whole Blood 274 mg/dL (70-110)
[2022-02-14 16:57] LABS: Glucose,Whole Blood 158 mg/dL (70-110)
[2022-02-14] MEDS: PANTOPRAZOLE 40 MG TABLET PO SCH (18:26)
--- NOTE | 2022-02-14 18:34 | P.GSCN ---
History of Present Illness History of present illness: 61-year-old diabetic male well known to me from the past patient has been coming to the wound clinic he had a tendocalcaneus injury of the left leg which we have treated debridement and local wound care patient has a infected callus on the plantar aspect of the right foot down to the metatarsal bone with some devitalized tissue x-ray shows destructive changes of the metatarsal and osteomy elitis of the right big toe. Patient also has a superficial wound on the right lower extremity Chest is clear good entry both lungs first and second sound present Abdomen is soft nontender Vascular 1+ bilateral PTDP not palpable right foot has a large infected callus down to the metatarsal bone with different less tissue we have discussed the options patient just want wound be debrided no amputation we will arrange for that prognosis is guarded Past Medical History Past Medical History: Diabetes Mellitus, Diabetes Mellitus, GERD/Reflux, Hyperlipidemia, Osteoarthritis (OA), Seizure Disorder Additional Past Medical History / Comment(s): IDDM type 1 per pt, bilateral feet neuropathy, pt states current wounds to bilateral feet/goes to [facility]/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 History of Any Multi-Drug Resistant Organisms: MRSA Year Discovered:: 12/29/19 MDRO Source:: Left Leg Past Surgical History: Orthopedic Surgery, Tonsillectomy Additional Past Surgical History / Comment(s): 01/23/20 angiogram L leg, 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, colonoscopy, L eye surgery for strabismus. Past Anesthesia/Blood Transfusion Reactions: No Reported Reaction Past Psychological History: Depression Additional Psychological History / Comment(s): Pt resides with friends. He has a glucometer. He does not drive, he usually uses bus system. He is otherwise, independent. Smoking Status: Never smoker Past Alcohol Use History: None Reported Past Drug Use History: None Reported - Past Family History Father Family Medical History: Myocardial Infarction ([place]) Additional Family Medical History / Comment(s): Father of a [place] at the age of 57yrs. Mother Family Medical History: Cancer Additional Family Medical History / Comment(s): Mother from cancer at the age of 61 or 62 . Pt cannot recall type of cancer. Sister(s) Family Medical History: Diabetes Mellitus Additional Family Medical History / Comment(s): Sister had DM type 1. She is . Medications and Allergies Home Medications Medication Instructions Recorded Confirmed Type Omeprazole 20 mg PO AC-BID 06/13/17 02/14/22 History Diphenox-Atrop 2.5-0.025 mg 1 tab PO BID PRN 11/17/19 02/14/22 History [Lomotil] Rosuvastatin [Crestor] 10 mg PO DAILY 05/15/20 02/14/22 History Latanoprost/Pf [Latanoprost 0.005% 1 drop BOTH EYES HS 06/15/21 02/14/22 History Eye Drop] Acetaminophen Tab [Tylenol] 325 mg PO Q6HR PRN 07/17/21 02/14/22 History Ondansetron Odt [Zofran ODT] 4 mg PO Q8HR PRN #12 tab 07/29/21 02/14/22 Rx Insulin Lispro [Admelog] See Protocol SQ AC-TID 11/25/21 02/14/22 History Triamcinolone 0.5% Cream [Kenalog 1 applic TOPICAL DAILY PRN 11/25/21 02/14/22 History 0.5% Cream] Insulin Glargine,Hum.rec.anlog 50 units SQ DAILY 01/27/22 02/14/22 History [Lantus Solostar Pen] Phenytoin Sodium Extended 200 mg PO BID 02/14/22 02/14/22 History [Dilantin] Pioglitazone [Actos] 15 mg PO DAILY 02/14/22 02/14/22 History Allergies Allergy/AdvReac Type Severity Reaction Status Date / Time No Known Allergies Allergy Verified 02/14/22 07:05 Surgical - Exam Vital Signs Temp Pulse Resp BP Pulse Ox 98.3 F 100 20 168/76 97 02/13/22 16:43 02/13/22 16:43 02/13/22 16:43 02/13/22 16:43 02/13/22 16:43 Results - Labs 02/14/22 00:18 02/14/22 00:18 Abnormal Lab Results - Last 24 Hours (Table) 02/14/22 02/14/22 02/14/22 Range/Units 00:18 00:18 00:18 RBC 3.60 L (4.30-5.90) m/uL Hgb 8.4 L D (13.0-17.5) gm/dL Hct 28.1 L (39.0-53.0) % MCV 78.1 L (80.0-100.0) fL MCH 23.3 L (25.0-35.0) pg MCHC 29.8 L (31.0-37.0) g/dL RDW 19.9 H (11.5-15.5) % Plt Count 535 H (150-450) k/uL Sodium 136 L (137-145) mmol/L Carbon Dioxide 31 H (22-30) mmol/L Glucose 315 H (74-99) mg/dL POC Glucose (mg/dL) (70-110) mg/dL Hemoglobin A1c 12.3 H (0.0-6.0) % Calcium 8.1 L (8.4-10.2) mg/dL AST 12 L (17-59) U/L Alkaline Phosphatase 133 H (38-126) U/L Albumin 2.9 L (3.5-5.0) g/dL 02/14/22 02/14/22 02/14/22 Range/Units 12:45 15:11 16:55 RBC (4.30-5.90) m/uL Hgb (13.0-17.5) gm/dL Hct (39.0-53.0) % MCV (80.0-100.0) fL MCH (25.0-35.0) pg MCHC (31.0-37.0) g/dL RDW (11.5-15.5) % Plt Count (150-450) k/uL Sodium (137-145) mmol/L Carbon Dioxide (22-30) mmol/L Glucose (74-99) mg/dL POC Glucose (mg/dL) 463 H 274 H 158 H (70-110) mg/dL Hemoglobin A1c (0.0-6.0) % Calcium (8.4-10.2) mg/dL AST (17-59) U/L Alkaline Phosphatase (38-126) U/L Albumin (3.5-5.0) g/dL Microbiology - Last 24 Hours (Table) 02/14/22 00:15 Wound Culture - Preliminary Foot - Right Diabetes panel 02/14/22 02/14/22 Range/Units 00:18 00:18 Sodium 136 L (137-145) mmol/L Potassium 4.0 (3.5-5.1) mmol/L Chloride 103 (98-107) mmol/L Carbon Dioxide 31 H (22-30) mmol/L BUN 10 (9-20) mg/dL Creatinine 0.69 (0.66-1.25) mg/dL Glucose 315 H (74-99) mg/dL Hemoglobin A1c 12.3 H (0.0-6.0) % Calcium 8.1 L (8.4-10.2) mg/dL AST 12 L (17-59) U/L ALT 12 (4-49) U/L Alkaline Phosphatase 133 H (38-126) U/L Total Protein 6.3 (6.3-8.2) g/dL Albumin 2.9 L (3.5-5.0) g/dL Calcium panel 02/14/22 Range/Units 00:18 Calcium 8.1 L (8.4-10.2) mg/dL Albumin 2.9 L (3.5-5.0) g/dL Pituitary panel 02/14/22 Range/Units 00:18 Sodium 136 L (137-145) mmol/L Potassium 4.0 (3.5-5.1) mmol/L Chloride 103 (98-107) mmol/L Carbon Dioxide 31 H (22-30) mmol/L BUN 10 (9-20) mg/dL Creatinine 0.69 (0.66-1.25) mg/dL Glucose 315 H (74-99) mg/dL Calcium 8.1 L (8.4-10.2) mg/dL Adrenal panel 02/14/22 Range/Units 00:18 Sodium 136 L (137-145) mmol/L Potassium 4.0 (3.5-5.1) mmol/L Chloride 103 (98-107) mmol/L Carbon Dioxide 31 H (22-30) mmol/L BUN 10 (9-20) mg/dL Creatinine 0.69 (0.66-1.25) mg/dL Glucose 315 H (74-99) mg/dL Calcium 8.1 L (8.4-10.2) mg/dL Total Bilirubin 0.2 (0.2-1.3) mg/dL AST 12 L (17-59) U/L ALT 12 (4-49) U/L Alkaline Phosphatase 133 H (38-126) U/L Total Protein 6.3 (6.3-8.2) g/dL Albumin 2.9 L (3.5-5.0) g/dL
[2022-02-14] MEDS: LATANOPROST 0.005% OPHTH DROPS 2.5 ML BTL BOTH EYES SCH (20:39)
[2022-02-14] MEDS: PHENYTOIN SODIUM EXTENDED 100 MG CAP PO SCH (20:39)
[2022-02-14] MEDS: SODIUM CHLORIDE 0.9% 1,000 ML IV SCH ×2 (20:40→21:55)
[2022-02-14 21:00] LABS: Glucose,Whole Blood 367 mg/dL (70-110)
--- NOTE | 2022-02-14 23:55 | P.CONS ---
History of Present Illness - Reason for Consult Consult date: 02/14/22 Wound osteomyelitis Requesting physician: Helen Chen - Chief Complaint Right foot nonhealing wound x weeks - History of Present Illness Patient is a 61-year-old male with a past medical history significant for diabetes mellitus in this patient who did have a diabetic foot infection was recently admitted at [facility] in this patient was noticed to have a wound on the plantar aspect of his right foot concerning for osteomyelitis patient was evaluated by vascular surgery recommending amputation of the right big toe with the patient refused patient subsequently got a PICC line and was advised Rocephin 2 g daily and oral Flagyl patient apparently did have a follow-up with 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 Major who after evaluation of the patient will the patient to go to the ER concerning for the worsening of his wound on presentation to the hospital the patient is afebrile and no fever has been recorded subsequently patient did have a normal white count kidney function has been normal liver enzymes are normal patient did have x-ray of the foot whic h showed destructive changes in the big toe and first metatarsal head consistent with osteomyelitis patient was started on vancomycin has been admitted to hospital infectious disease was consulted for further management of antibiotic therapy Review of Systems Positive point has been mentioned in the HPI rest of the systems are negative Past Medical History Past Medical History: Diabetes Mellitus, Diabetes Mellitus, GERD/Reflux, Hyperlipidemia, Osteoarthritis (OA), Seizure Disorder Additional Past Medical History / Comment(s): IDDM type 1 per pt, bilateral feet neuropathy, pt states current wounds to bilateral feet/goes to [facility]/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 History of Any Multi-Drug Resistant Organisms: MRSA Year Discovered:: 12/29/19 MDRO Source:: Left Leg Past Surgical History: Orthopedic Surgery, Tonsillectomy Additional Past Surgical History / Comment(s): 01/23/20 angiogram L leg, 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, colonoscopy, L eye surgery for strabismus. Past Anesthesia/Blood Transfusion Reactions: No Reported Reaction Past Psychological History: Depression Smoking Status: Never smoker Past Alcohol Use History: None Reported Past Drug Use History: None Reported - Past Family History Father Family Medical History: Myocardial Infarction ([place]) Additional Family Medical History / Comment(s): Father of a [place] at the age of 57yrs. Mother Family Medical History: Cancer Additional Family Medical History / Comment(s): Mother from cancer at the age of 61 or 62 . Pt cannot recall type of cancer. Sister(s) Family Medical History: Diabetes Mellitus Additional Family Medical History / Comment(s): Sister had DM type 1. She is . Medications and Allergies Home Medications Medication Instructions Recorded Confirmed Type Omeprazole 20 mg PO AC-BID 06/13/17 02/14/22 History Diphenox-Atrop 2.5-0.025 mg 1 tab PO BID PRN 11/17/19 02/14/22 History [Lomotil] Rosuvastatin [Crestor] 10 mg PO DAILY 05/15/20 02/14/22 History Latanoprost/Pf [Latanoprost 0.005% 1 drop BOTH EYES HS 06/15/21 02/14/22 History Eye Drop] Acetaminophen Tab [Tylenol] 325 mg PO Q6HR PRN 07/17/21 02/14/22 History Ondansetron Odt [Zofran ODT] 4 mg PO Q8HR PRN #12 tab 07/29/21 02/14/22 Rx Insulin Lispro [Admelog] See Protocol SQ AC-TID 11/25/21 02/14/22 History Triamcinolone 0.5% Cream [Kenalog 1 applic TOPICAL DAILY PRN 11/25/21 02/14/22 History 0.5% Cream] Insulin Glargine,Hum.rec.anlog 50 units SQ DAILY 01/27/22 02/14/22 History [Lantus Solostar Pen] Phenytoin Sodium Extended 200 mg PO BID 02/14/22 02/14/22 History [Dilantin] Pioglitazone [Actos] 15 mg PO DAILY 02/14/22 02/14/22 History Allergies Allergy/AdvReac Type Severity Reaction Status Date / Time No Known Allergies Allergy Verified 02/14/22 07:05 Physical Exam Vitals: Vital Signs Temp Pulse Resp BP Pulse Ox 02/14/22 11:36 98.4 F 89 18 143/81 96 02/14/22 06:04 71 15 146/74 100 02/13/22 16:43 98.3 F 100 20 168/76 97 Intake and Output 02/13/22 02/14/22 02/14/22 22:59 06:59 14:59 Other: Weight 47.627 kg GENERAL DESCRIPTION: Middle-aged male lying in bed, no distress. No tachypnea or accessory muscle of respiration use. HEENT: Shows Pallor , no scleral icterus. Oral mucous membrane is dry. No pharyngeal erythema or thrush NECK: Trachea central, no thyromegaly. LUNGS: Unlabored breathing. Clear to auscultation anteriorly. No wheeze or crackle. HEART: S1, S2, regular rate and rhythm. No loud murmur ABDOMEN: Soft, no tenderness , guarding or rigidity, no organomegaly EXTREMITIES: Right foot plantar wound base of the soft tissue no significant surrounding swelling redness or any foul-smelling drainage SKIN: No rash, no masses palpable. NEUROLOGICAL: The patient is awake, alert, oriented x3, mood and affect normal. Results CBC & Chem 7: 02/16/22 06:09 02/16/22 06:09 Labs: Abnormal Lab Results - Last 24 Hours (Table) 02/14/22 02/14/22 02/14/22 Range/Units 00:18 00:18 12:45 RBC 3.60 L (4.30-5.90) m/uL Hgb 8.4 L D (13.0-17.5) gm/dL Hct 28.1 L (39.0-53.0) % MCV 78.1 L (80.0-100.0) fL MCH 23.3 L (25.0-35.0) pg MCHC 29.8 L (31.0-37.0) g/dL RDW 19.9 H (11.5-15.5) % Plt Count 535 H (150-450) k/uL Sodium 136 L (137-145) mmol/L Carbon Dioxide 31 H (22-30) mmol/L Glucose 315 H (74-99) mg/dL POC Glucose (mg/dL) 463 H (70-110) mg/dL Calcium 8.1 L (8.4-10.2) mg/dL AST 12 L (17-59) U/L Alkaline Phosphatase 133 H (38-126) U/L Albumin 2.9 L (3.5-5.0) g/dL Microbiology - Last 24 Hours (Table) 02/14/22 00:15 Wound Culture - Preliminary Foot - Right Assessment and Plan (1) Osteomyelitis Current Visit: Yes Status: Acute Code(s): M86.9 - OSTEOMYELITIS, UNSPECIFIED SNOMED Code(s): 38798757 Plan: 1patient with a right diabetic foot infection with a nonhealing wound on the plantar aspect of the right foot and concern for underlying osteomyelitis patient did have a streptococcal bacteremia and culture positive from right foot with the same pathogen and the patient has been receiving outpatient Rocephin and oral Flagyl clinically the wound looks better to me compared to his last visit and the patient seem to be refusing amputation at this point. 2we will discontinue the vancomycin. 3start the patient on Unasyn 3 g every 6 hours however will recommend transi tion the patient back to outpatient IV Rocephin and oral Flagyl and the patient can follow-up with me in the wound care center for continued local wound care. We will follow on clinical condition and cultures to further adjust medication if needed Thank you for this consultation will follow this patient along with you Time with Patient: Greater than 30
[2022-02-15] MEDS: AMPICILLIN-SULBACTAM 3 GM in SODIUM CHLORIDE 0.9% 100 ML IVPB SCH ×5 (00:55→22:18)
[2022-02-15 03:08] LABS: Glucose,Whole Blood 291 mg/dL (70-110)
[2022-02-15 06:24] LABS: Glucose,Whole Blood 364 mg/dL (70-110)
[2022-02-15] MEDS: PANTOPRAZOLE 40 MG TABLET PO SCH ×2 (06:26→17:58)
[2022-02-15] MEDS: INSULIN ASPART (NovoLOG) 100 UNIT/ML VIAL SQ SCH ×4 (06:33→20:56)
[2022-02-15] MEDS: INSULIN DETEMIR (LEVEMIR) 100 UNIT/ML SYR SQ SCH (08:47)
[2022-02-15] MEDS: PIOGLITAZONE 15 MG TAB PO SCH (08:48)
[2022-02-15] MEDS: ATORVASTATIN 20 MG TAB PO SCH (08:48)
[2022-02-15] MEDS: PHENYTOIN SODIUM EXTENDED 100 MG CAP PO SCH ×2 (08:48→22:17)
[2022-02-15] MEDS: ENOXAPARIN 40 MG/0.4 ML SYRINGE SQ SCH (08:48)
--- NOTE | 2022-02-15 10:39 | P.PN ---
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 Patient was recently treated at [facility] with IV antibiotics. At that time basilar surgery was recommending amputation of foot but patient declined. Patient reports he has been receiving his IV antibiotic infusion. Additional medical history includes diabetes mellitus type 2 with poor control, chronic lower extremity infection, seizure disorder, hyperlipidemia and anemia. Foot x-ray completed showing the structure changes in the big toe and the first metatarsal head consistent with osteomyelitis and appears new compared to old exam. Patient was started on IV vancomycin. Infectious disease service is consulted. We'll also consult vascular surgeon per patient's choice. Blood culture and repeat labs ordered. Repeat labs temp 90.3, heart rate 100, respiratory rate 20, blood pressure 146/74 with possible some 100% on room air On 02/15/2022 Patient was seen and examined on the medical floor he is alert and oriented 3 in no apparent distress there is no fever or chills no headache or dizziness no chest pain no shortness of breath no cough no nausea or vomiting no abdominal pain no diarrhea and no urinary symptoms, patient is complaining of discomfort in his right foot but no severe pain. Objective - Vital Signs Vital signs: Vital Signs Temp 98.1 F 02/15/22 03:07 Pulse 85 02/15/22 03:07 Resp 17 02/15/22 03:07 BP 148/82 02/15/22 03:07 Pulse Ox 97 02/15/22 03:07 FiO2 Intake & Output 02/14/22 02/15/22 02/15/22 18:59 06:59 18:59 Weight 47.627 kg Other: # Voids 1 - Exam In general patient is alert and oriented x 3 in no distress HEENT head normocephalic and atraumatic Neck is supple no JVD no goiter no lymphadenopathy no carotid bruit Chest examination is clear to auscultation no crackles no wheezing Cardiac exam reveals regular heart sounds S1 and S2 no gallops no murmurs Abdomen is soft nontender no organomegaly with normal bowel sounds Extremity exam no edema. Open ulcer noted to plantar surface of the right foot Neurological examination reveals no gross focal deficits - Labs CBC & Chem 7: 02/14/22 00:18 02/14/22 00:18 Labs: Abnormal Lab Results - Last 24 Hours (Table) 02/14/22 02/14/22 02/14/22 Range/Units 00:18 00:18 00:18 RBC 3.60 L (4.30-5.90) m/uL Hgb 8.4 L D (13.0-17.5) gm/dL Hct 28.1 L (39.0-53.0) % MCV 78.1 L (80.0-100.0) fL MCH 23.3 L (25.0-35.0) pg MCHC 29.8 L (31.0-37.0) g/dL RDW 19.9 H (11.5-15.5) % Plt Count 535 H (150-450) k/uL Sodium 136 L (137-145) mmol/L Carbon Dioxide 31 H (22-30) mmol/L Glucose 315 H (74-99) mg/dL POC Glucose (mg/dL) (70-110) mg/dL Hemoglobin A1c 12.3 H (0.0-6.0) % Calcium 8.1 L (8.4-10.2) mg/dL AST 12 L (17-59) U/L Alkaline Phosphatase 133 H (38-126) U/L Albumin 2.9 L (3.5-5.0) g/dL 02/14/22 02/14/22 02/14/22 Range/Units 12:45 15:11 16:55 RBC (4.30-5.90) m/uL Hgb (13.0-17.5) gm/dL Hct (39.0-53.0) % MCV (80.0-100.0) fL MCH (25.0-35.0) pg MCHC (31.0-37.0) g/dL RDW (11.5-15.5) % Plt Count (150-450) k/uL Sodium (137-145) mmol/L Carbon Dioxide (22-30) mmol/L Glucose (74-99) mg/dL POC Glucose (mg/dL) 463 H 274 H 158 H (70-110) mg/dL Hemoglobin A1c (0.0-6.0) % Calcium (8.4-10.2) mg/dL AST (17-59) U/L Alkaline Phosphatase (38-126) U/L Albumin (3.5-5.0) g/dL 02/14/22 02/15/22 02/15/22 Range/Units 20:59 03:06 06:22 RBC (4.30-5.90) m/uL Hgb (13.0-17.5) gm/dL Hct (39.0-53.0) % MCV (80.0-100.0) fL MCH (25.0-35.0) pg MCHC (31.0-37.0) g/dL RDW (11.5-15.5) % Plt Count (150-450) k/uL Sodium (137-145) mmol/L Carbon Dioxide (22-30) mmol/L Glucose (74-99) mg/dL POC Glucose (mg/dL) 367 H 291 H 364 H (70-110) mg/dL Hemoglobin A1c (0.0-6.0) % Calcium (8.4-10.2) mg/dL AST (17-59) U/L Alkaline Phosphatase (38-126) U/L Albumin (3.5-5.0) g/dL Microbiology - Last 24 Hours (Table) 02/14/22 00:15 Blood Culture - Preliminary Blood No Growth after 24 hours 02/14/22 00:01 Blood Culture - Preliminary Blood No Growth after 24 hours 02/14/22 00:15 Gram Stain - Preliminary Foot - Right Wound Culture - Preliminary Assessment and Plan Assessment: Right foot wound with concerns of osteomyelitis Underlying history of insulin-dependent diabetes mellitus Underlying history of chronic lower extremity infection was open ulcers followed at the wound care clinic Underlying history of seizure disorder maintained on Dilantin Underlying history of hyperlipidemia Anemia, will check iron level and vitamin B12 and folate level GI prophylaxis Lovenox. GI prophylaxis Protonix Infectious disease and vascular surgery consulted Continue with IV vancomycin Blood culture and repeat labs ordered
[2022-02-15 11:35] LABS: Basophils # (A) 0.08 X 10*3/uL (0.00-0.10); Basophils % (A) 0.9 %; Eosinophils # (A) 0.24 X 10*3/uL (0.04-0.35); Eosinophils % (A) 2.6 %; HCT 28.9 % (39.6-50.0); HGB 8.6 g/dL (13.0-17.0); Immature Grans, Automated 0.2 %; MCH 23.2 pg (27.0-32.0); MCHC 29.8 g/dL (32.0-37.0); MCV 77.9 fL (80.0-97.0); Mean Platelet Volume 8.8 fL (9.5-12.2); Monocytes % (A) 5.3 %; NRBC Per 100 WBC 0 /100 WBCS (0.0-0.0); Neutrophils # (A) 7.06 X 10*3/uL (1.80-7.70); Platelet Count 486 X 10*3/uL (140-440); RBC 3.71 X 10*6/uL (4.40-5.60); RDW 21.5 % (11.5-14.5)
[2022-02-15 11:54] LABS: ALT 10 U/L (10-49); AST 11 U/L (14-35); African American GFR (CKD) 111.2 (60.0-200.0); Albumin 3.1 g/dL (3.8-4.9); Albumin/Globulin Ratio 0.94 (1.60-3.17); Alkaline Phosphatase 125 U/L (41-126); BUN/Creat Ratio 20.27 Ratio (12.00-20.00); Blood Urea Nitrogen 16.4 mg/dL (9.0-27.0); Calcium 8.9 mg/dL (8.7-10.3); Carbon Dioxide 26.3 mmol/L (20.0-27.5); Chloride 99 mmol/L (96-109); Globulin 3.3 g/dL (1.6-3.3); Glucose 366 mg/dL (70-110); Potassium 4.6 mmol/L (3.5-5.5); Sodium 137 mmol/L (135-145); Total Bilirubin <0.15 mg/dL (0.30-1.20); Total Protein 6.5 g/dL (6.2-8.2)
[2022-02-15 12:58] LABS: Glucose,Whole Blood 370 mg/dL (70-110)
[2022-02-15 13:07] VITALS: BMI 19.8
[2022-02-15 14:13] LABS: % Iron Saturation 5.26 (15.00-50.00)
[2022-02-15 17:23] LABS: Glucose,Whole Blood 91 mg/dL (70-110)
[2022-02-15 20:43] LABS: Glucose,Whole Blood 107 mg/dL (70-110)
[2022-02-15] MEDS: LATANOPROST 0.005% OPHTH DROPS 2.5 ML BTL BOTH EYES SCH (22:17)
[2022-02-16] MEDS: AMPICILLIN-SULBACTAM 3 GM in SODIUM CHLORIDE 0.9% 100 ML IVPB SCH ×3 (05:54→17:40)
[2022-02-16] MEDS: PANTOPRAZOLE 40 MG TABLET PO SCH ×2 (05:55→17:40)
[2022-02-16 05:58] LABS: Glucose,Whole Blood 103 mg/dL (70-110)
[2022-02-16] MEDS: INSULIN ASPART (NovoLOG) 100 UNIT/ML VIAL SQ SCH ×4 (05:58→21:15)
--- NOTE | 2022-02-16 08:20 | P.PN ---
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 Patient was recently treated at [facility] with IV antibiotics. At that time basilar surgery was recommending amputation of foot but patient declined. Patient reports he has been receiving his IV antibiotic infusion. Additional medical history includes diabetes mellitus type 2 with poor control, chronic lower extremity infection, seizure disorder, hyperlipidemia and anemia. Foot x-ray completed showing the structure changes in the big toe and the first metatarsal head consistent with osteomyelitis and appears new compared to old exam. Patient was started on IV vancomycin. Infectious disease service is consulted. We'll also consult vascular surgeon per patient's choice. Blood culture and repeat labs ordered. Repeat labs temp 90.3, heart rate 100, respiratory rate 20, blood pressure 146/74 with possible some 100% on room air On 02/15/2022 Patient was seen and examined on the medical floor he is alert and oriented 3 in no apparent distress there is no fever or chills no headache or dizziness no chest pain no shortness of breath no cough no nausea or vomiting no abdominal pain no diarrhea and no urinary symptoms, patient is complaining of discomfort in his right foot but no severe pain. On 02/16/2022 patient was seen and examined on the medical floor he is alert and oriented 3 in no apparent distress, he is complaining of some discomfort in his foot otherwise he denies any complaints there is no fever or chills no headache or dizziness no chest pain no shortness of breath no cough, there is no nausea or vomiting no abdominal pain no diarrhea no blood in the stools no burning with urination no frequency or urgency and no hematuria Objective - Vital Signs Vital signs: Vital Signs Temp 98.0 F 02/16/22 02:33 Pulse 79 02/16/22 02:33 Resp 16 02/16/22 02:33 BP 163/84 02/16/22 02:33 Pulse Ox 99 02/16/22 02:33 FiO2 Intake & Output 02/15/22 02/16/22 02/16/22 18:59 06:59 18:59 Intake Total 236 Balance 236 Weight 47.627 kg Intake: Oral 236 Other: # Voids 1 1 - Exam In general patient is alert and oriented x 3 in no distress HEENT head normocephalic and atraumatic Neck is supple no JVD no goiter no lymphadenopathy no carotid bruit Chest examination is clear to auscultation no crackles no wheezing Cardiac exam reveals regular heart sounds S1 and S2 no gallops no murmurs Abdomen is soft nontender no organomegaly with normal bowel sounds Extremity exam no edema. Open ulcer noted to plantar surface of the right foot Neurological examination reveals no gross focal deficits - Labs CBC & Chem 7: 02/15/22 06:21 02/15/22 06:21 Labs: Abnormal Lab Results - Last 24 Hours (Table) 02/15/22 02/15/22 02/15/22 Range/Units 06:21 06:21 06:21 RBC 3.71 L (4.40-5.60) X 10*6/uL Hgb 8.6 L (13.0-17.0) g/dL Hct 28.9 L (39.6-50.0) % MCV 77.9 L (80.0-97.0) fL MCH 23.2 L (27.0-32.0) pg MCHC 29.8 L (32.0-37.0) g/dL RDW 21.5 H (11.5-14.5) % Plt Count 486 H (140-440) X 10*3/uL MPV 8.8 L (9.5-12.2) fL BUN/Creatinine Ratio 20.27 H (12.00-20.00) Ratio Glucose 366 H (70-110) mg/dL POC Glucose (mg/dL) (70-110) mg/dL Iron (65-175) ug/dL % Saturation (15.00-50.00) Total Bilirubin <0.15 L (0.30-1.20) mg/dL AST 11 L (14-35) U/L Albumin 3.1 L (3.8-4.9) g/dL Albumin/Globulin Ratio 0.94 L (1.60-3.17) g/dL Folate 4.20 L (4.40-31.00) ng/mL 02/15/22 02/15/22 Range/Units 06:21 12:56 RBC (4.40-5.60) X 10*6/uL Hgb (13.0-17.0) g/dL Hct (39.6-50.0) % MCV (80.0-97.0) fL MCH (27.0-32.0) pg MCHC (32.0-37.0) g/dL RDW (11.5-14.5) % Plt Count (140-440) X 10*3/uL MPV (9.5-12.2) fL BUN/Creatinine Ratio (12.00-20.00) Ratio Glucose (70-110) mg/dL POC Glucose (mg/dL) 370 H (70-110) mg/dL Iron 16 L (65-175) ug/dL % Saturation 5.26 L (15.00-50.00) Total Bilirubin (0.30-1.20) mg/dL AST (14-35) U/L Albumin (3.8-4.9) g/dL Albumin/Globulin Ratio (1.60-3.17) g/dL Folate (4.40-31.00) ng/mL Microbiology - Last 24 Hours (Table) 02/14/22 00:15 Blood Culture - Preliminary Blood No Growth after 48 hours 02/14/22 00:01 Blood Culture - Preliminary Blood No Growth after 48 hours Assessment and Plan Assessment: Right foot wound with concerns of osteomyelitis Underlying history of insulin-dependent diabetes mellitus Underlying history of chronic lower extremity infection was open ulcers followed at the wound care clinic Underlying history of seizure disorder maintained on Dilantin Underlying history of hyperlipidemia Anemia, will check iron level and vitamin B12 and folate level GI prophylaxis Lovenox. GI prophylaxis Protonix Infectious disease and vascular surgery consulted Continue with IV vancomycin Blood culture and repeat labs ordered
[2022-02-16] MEDS: PHENYTOIN SODIUM EXTENDED 100 MG CAP PO SCH ×2 (08:28→21:15)
[2022-02-16] MEDS: INSULIN DETEMIR (LEVEMIR) 100 UNIT/ML SYR SQ SCH (08:28)
[2022-02-16] MEDS: ENOXAPARIN 40 MG/0.4 ML SYRINGE SQ SCH (08:28)
[2022-02-16] MEDS: ATORVASTATIN 20 MG TAB PO SCH (08:28)
[2022-02-16] MEDS: PIOGLITAZONE 15 MG TAB PO SCH (08:29)
[2022-02-16 09:57] LABS: ALT 9 U/L (10-49); AST 12 U/L (14-35); African American GFR (CKD) 110.1 (60.0-200.0); Albumin/Globulin Ratio 0.96 (1.60-3.17); Alkaline Phosphatase 110 U/L (41-126); BUN/Creat Ratio 15.54 Ratio (12.00-20.00); Basophils # (A) 0.06 X 10*3/uL (0.00-0.10); Basophils % (A) 0.8 %; Blood Urea Nitrogen 12.9 mg/dL (9.0-27.0); Calcium 8.9 mg/dL (8.7-10.3); Carbon Dioxide 31.3 mmol/L (20.0-27.5); Chloride 100 mmol/L (96-109); Eosinophils # (A) 0.31 X 10*3/uL (0.04-0.35); Globulin 3.1 g/dL (1.6-3.3); Glucose 93 mg/dL (70-110); HCT 28.3 % (39.6-50.0); HGB 8.5 g/dL (13.0-17.0); Immature Grans, Automated 0.4 %; Lymphocytes # (A) 1.49 X 10*3/uL (0.90-5.00); Lymphocytes % (A) 19.2 %; MCH 23.7 pg (27.0-32.0); MCV 79.1 fL (80.0-97.0); Mean Platelet Volume 9.1 fL (9.5-12.2); Monocytes # (A) 0.49 X 10*3/uL (0.20-1.00); Monocytes % (A) 6.3 %; NRBC Per 100 WBC 0 /100 WBCS (0.0-0.0); Neutrophils # (A) 5.38 X 10*3/uL (1.80-7.70); Neutrophils % (A) 69.3 %; Platelet Count 438 X 10*3/uL (140-440); Potassium 4.1 mmol/L (3.5-5.5); RBC 3.58 X 10*6/uL (4.40-5.60); RDW 21.5 % (11.5-14.5); Sodium 139 mmol/L (135-145); Total Bilirubin <0.15 mg/dL (0.30-1.20); Total Protein 6.1 g/dL (6.2-8.2); WBC 7.76 X 10*3/uL (4.50-10.00)
[2022-02-16 12:04] LABS: Glucose,Whole Blood 64 mg/dL (70-110)
[2022-02-16 12:38] LABS: Glucose,Whole Blood 129 mg/dL (70-110)
[2022-02-16] MEDS: SODIUM CHLORIDE 0.9% 1,000 ML IV SCH (13:04)
[2022-02-16] MEDS ORDERED: ONDANSETRON 4 MG/2 ML VIAL IVP ONE (15:00)
[2022-02-16] MEDS ORDERED: DEXTROSE 50% SYRINGE 50 ML IVP ONE (15:02)
[2022-02-16 15:08] LABS: Glucose,Whole Blood 44 mg/dL (70-110)
[2022-02-16 15:08] LABS: Glucose,Whole Blood 46 mg/dL (70-110)
[2022-02-16 15:17] LABS: Glucose,Whole Blood 120 mg/dL (70-110)
[2022-02-16] MEDS ORDERED: PROPOFOL 10 MG/ML 20 ML VIAL IV ONE (15:44)
[2022-02-16] MEDS ORDERED: LIDOCAINE 1% INJ 10MG/ML (30 ML VIAL-PF) SQ ONE (15:45)
[2022-02-16] MEDS ORDERED: SODIUM CHLORIDE 0.9% 1,000 ML IV ONE (15:45)
[2022-02-16] MEDS ORDERED: LACTATED RINGERS 1,000 ML IV ONE (16:02)
[2022-02-16 16:12] LABS: Glucose,Whole Blood 73 mg/dL (70-110)
[2022-02-16 17:00] LABS: Glucose,Whole Blood 56 mg/dL (70-110)
[2022-02-16 17:18] LABS: Glucose,Whole Blood 61 mg/dL (70-110)
[2022-02-16 17:37] LABS: Glucose,Whole Blood 153 mg/dL (70-110)
--- NOTE | 2022-02-16 17:37 | P.PN ---
Subjective Progress Note Date: 02/15/22 Principal diagnosis: Right foot osteomyelitis Patient is a 61-year-old male with a past medical history significant for diabetes mellitus recent admission at [facility] patient did have streptococcal bacteremia and evidence of right foot infected callus and concerning for underlying osteomyelitis patient refused surgery at that point and was discharged on IV Rocephin and Flagyl subsequently admitted back to the hospital per advice of his hris specialist, with the x-ray completed did shows destructive changes to the big toe and first metatarsal head consistent with osteomyelitis. On today's evaluation that is 02/15/2022, the patient is afebrile patient is currently breathing comfortably on room air denies any chest pain shortness of breath or cough no nausea no vomiting no abdominal pain or any worsening pain to the right foot area Objective - Vital Signs Vital signs: Vital Signs Temp 97.9 F 02/15/22 14:00 Pulse 88 02/15/22 14:00 Resp 16 02/15/22 14:00 BP 150/88 02/15/22 14:00 Pulse Ox 97 02/15/22 14:00 FiO2 Intake & Output 02/14/22 02/15/22 02/15/22 18:59 06:59 18:59 Weight 47.627 kg 47.627 kg Other: # Voids 1 - Exam GENERAL DESCRIPTION: Middle-aged male lying in bed in no distress RESPIRATORY SYSTEM: Unlabored breathing , decreased breath sounds at bases HEART: S1 S2 regular rate and rhythm , ABDOMEN: Soft , no tenderness EXTREMITIES: Right foot is currently dressed minimal drainage on the dressing - Labs CBC & Chem 7: 02/16/22 06:09 02/16/22 06:09 Labs: Abnormal Lab Results - Last 24 Hours (Table) 02/14/22 02/15/22 02/15/22 Range/Units 20:59 03:06 06:21 RBC (4.40-5.60) X 10*6/uL Hgb (13.0-17.0) g/dL Hct (39.6-50.0) % MCV (80.0-97.0) fL MCH (27.0-32.0) pg MCHC (32.0-37.0) g/dL RDW (11.5-14.5) % Plt Count (140-440) X 10*3/uL MPV (9.5-12.2) fL BUN/Creatinine Ratio 20.27 H (12.00-20.00) Ratio Glucose 366 H (70-110) mg/dL POC Glucose (mg/dL) 367 H 291 H (70-110) mg/dL Iron (65-175) ug/dL % Saturation (15.00-50.00) Total Bilirubin <0.15 L (0.30-1.20) mg/dL AST 11 L (14-35) U/L Albumin 3.1 L (3.8-4.9) g/dL Albumin/Globulin Ratio 0.94 L (1.60-3.17) g/dL Folate (4.40-31.00) ng/mL 02/15/22 02/15/22 02/15/22 Range/Units 06:21 06:21 06:21 RBC 3.71 L (4.40-5.60) X 10*6/uL Hgb 8.6 L (13.0-17.0) g/dL Hct 28.9 L (39.6-50.0) % MCV 77.9 L (80.0-97.0) fL MCH 23.2 L (27.0-32.0) pg MCHC 29.8 L (32.0-37.0) g/dL RDW 21.5 H (11.5-14.5) % Plt Count 486 H (140-440) X 10*3/uL MPV 8.8 L (9.5-12.2) fL BUN/Creatinine Ratio (12.00-20.00) Ratio Glucose (70-110) mg/dL POC Glucose (mg/dL) (70-110) mg/dL Iron 16 L (65-175) ug/dL % Saturation 5.26 L (15.00-50.00) Total Bilirubin (0.30-1.20) mg/dL AST (14-35) U/L Albumin (3.8-4.9) g/dL Albumin/Globulin Ratio (1.60-3.17) g/dL Folate 4.20 L (4.40-31.00) ng/mL 02/15/22 02/15/22 Range/Units 06:22 12:56 RBC (4.40-5.60) X 10*6/uL Hgb (13.0-17.0) g/dL Hct (39.6-50.0) % MCV (80.0-97.0) fL MCH (27.0-32.0) pg MCHC (32.0-37.0) g/dL RDW (11.5-14.5) % Plt Count (140-440) X 10*3/uL MPV (9.5-12.2) fL BUN/Creatinine Ratio (12.00-20.00) Ratio Glucose (70-110) mg/dL POC Glucose (mg/dL) 364 H 370 H (70-110) mg/dL Iron (65-175) ug/dL % Saturation (15.00-50.00) Total Bilirubin (0.30-1.20) mg/dL AST (14-35) U/L Albumin (3.8-4.9) g/dL Albumin/Globulin Ratio (1.60-3.17) g/dL Folate (4.40-31.00) ng/mL Microbiology - Last 24 Hours (Table) 02/14/22 00:15 Blood Culture - Preliminary Blood No Growth after 24 hours 02/14/22 00:01 Blood Culture - Preliminary Blood No Growth after 24 hours 02/14/22 00:15 Gram Stain - Preliminary Foot - Right Wound Culture - Preliminary Assessment and Plan (1) Osteomyelitis Current Visit: Yes Status: Acute Code(s): M86.9 - OSTEOMYELITIS, UNSPECIFIED SNOMED Code(s): 93475888 (2) Cellulitis Current Visit: No Status: Acute Code(s): L03.90 - CELLULITIS, UNSPECIFIED SNOMED Code(s): 454104943 Plan: 1patient with a right diabetic foot infection with a nonhealing wound on the plantar aspect of the right foot and concern for underlying osteomyelitis patient did have a streptococcal bacteremia and culture positive from right foot with the same pathogen and the patient has been receiving outpatient Rocephin and oral Flagyl 2 the patient to continue with Unasyn 3 g every 6 hours and await reevaluation by vascular surgery Time with Patient: Less than 30
--- NOTE | 2022-02-16 17:38 | P.PN ---
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 Patient has been reevaluated by vascular surgery and apparently the patient has agreed for surgical debridement of his right foot wound scheduled for today On today's evaluation that is 02/16/2022, the patient remains to be afebrile patient is breathing comfortably on room air, the patient denies any chest pain shortness of breath or cough no nausea no vomiting no abdominal pain or any worsening pain to the right foot area Objective - Vital Signs Vital signs: Vital Signs Temp 98.0 F 02/16/22 14:00 Pulse 81 02/16/22 16:30 Resp 16 02/16/22 16:30 BP 137/77 02/16/22 16:30 Pulse Ox 98 02/16/22 16:30 FiO2 Intake & Output 02/15/22 02/16/22 02/16/22 18:59 06:59 18:59 Intake Total 236 200 Output Total 5 Balance 236 195 Weight 47.627 kg 47.627 kg Intake: IV 200 Oral 236 Output: Estimated Blood Loss 5 Other: # Voids 1 1 - Exam GENERAL DESCRIPTION: Middle-aged male lying in bed in no distress RESPIRATORY SYSTEM: Unlabored breathing , decreased breath sounds at bases HEART: S1 S2 regular rate and rhythm , ABDOMEN: Soft , no tenderness EXTREMITIES: Right foot is currently dressed minimal drainage on the dressing - Labs CBC & Chem 7: 02/16/22 06:09 02/16/22 06:09 Labs: Abnormal Lab Results - Last 24 Hours (Table) 02/16/22 02/16/22 02/16/22 Range/Units 06:09 06:09 12:03 RBC 3.58 L (4.40-5.60) X 10*6/uL Hgb 8.5 L (13.0-17.0) g/dL Hct 28.3 L (39.6-50.0) % MCV 79.1 L (80.0-97.0) fL MCH 23.7 L (27.0-32.0) pg MCHC 30.0 L (32.0-37.0) g/dL RDW 21.5 H (11.5-14.5) % MPV 9.1 L (9.5-12.2) fL Carbon Dioxide 31.3 H (20.0-27.5) mmol/L Anion Gap 7.70 L (10.00-18.00) mmol/L POC Glucose (mg/dL) 64 L (70-110) mg/dL Total Bilirubin <0.15 L (0.30-1.20) mg/dL AST 12 L (14-35) U/L ALT 9 L (10-49) U/L Total Protein 6.1 L (6.2-8.2) g/dL Albumin 3.0 L (3.8-4.9) g/dL Albumin/Globulin Ratio 0.96 L (1.60-3.17) g/dL 02/16/22 02/16/22 02/16/22 Range/Units 12:37 15:01 15:02 RBC (4.40-5.60) X 10*6/uL Hgb (13.0-17.0) g/dL Hct (39.6-50.0) % MCV (80.0-97.0) fL MCH (27.0-32.0) pg MCHC (32.0-37.0) g/dL RDW (11.5-14.5) % MPV (9.5-12.2) fL Carbon Dioxide (20.0-27.5) mmol/L Anion Gap (10.00-18.00) mmol/L POC Glucose (mg/dL) 129 H 46 L 44 L (70-110) mg/dL Total Bilirubin (0.30-1.20) mg/dL AST (14-35) U/L ALT (10-49) U/L Total Protein (6.2-8.2) g/dL Albumin (3.8-4.9) g/dL Albumin/Globulin Ratio (1.60-3.17) g/dL 02/16/22 02/16/22 02/16/22 Range/Units 15:15 16:59 17:17 RBC (4.40-5.60) X 10*6/uL Hgb (13.0-17.0) g/dL Hct (39.6-50.0) % MCV (80.0-97.0) fL MCH (27.0-32.0) pg MCHC (32.0-37.0) g/dL RDW (11.5-14.5) % MPV (9.5-12.2) fL Carbon Dioxide (20.0-27.5) mmol/L Anion Gap (10.00-18.00) mmol/L POC Glucose (mg/dL) 120 H 56 L 61 L (70-110) mg/dL Total Bilirubin (0.30-1.20) mg/dL AST (14-35) U/L ALT (10-49) U/L Total Protein (6.2-8.2) g/dL Albumin (3.8-4.9) g/dL Albumin/Globulin Ratio (1.60-3.17) g/dL 02/16/22 Range/Units 17:36 RBC (4.40-5.60) X 10*6/uL Hgb (13.0-17.0) g/dL Hct (39.6-50.0) % MCV (80.0-97.0) fL MCH (27.0-32.0) pg MCHC (32.0-37.0) g/dL RDW (11.5-14.5) % MPV (9.5-12.2) fL Carbon Dioxide (20.0-27.5) mmol/L Anion Gap (10.00-18.00) mmol/L POC Glucose (mg/dL) 153 H (70-110) mg/dL Total Bilirubin (0.30-1.20) mg/dL AST (14-35) U/L ALT (10-49) U/L Total Protein (6.2-8.2) g/dL Albumin (3.8-4.9) g/dL Albumin/Globulin Ratio (1.60-3.17) g/dL Microbiology - Last 24 Hours (Table) 02/14/22 00:15 Gram Stain - Final Foot - Right Wound Culture - Final 02/14/22 00:15 Blood Culture - Preliminary Blood No Growth after 48 hours 02/14/22 00:01 Blood Culture - Preliminary Blood No Growth after 48 hours Assessment and Plan (1) Osteomyelitis Current Visit: Yes Status: Acute Code(s): M86.9 - OSTEOMYELITIS, UNSPECIFIED SNOMED Code(s): 27438202 (2) Cellulitis Current Visit: No Status: Acute Code(s): L03.90 - CELLULITIS, UNSPECIFIED SNOMED Code(s): 704683368 Plan: 1patient with a right diabetic foot infection with a nonhealing wound on the plantar aspect of the right foot and concern for underlying osteomyelitis patient did have a streptococcal bacteremia and culture positive from right foot with the same pathogen and the patient has been receiving outpatient Rocephin and oral Flagyl 2 the patient is scheduled for surgical debridement and possible deep culture this afternoon 3-patient to continue with Unasyn while waiting for repeat cultures to be finalize Time with Patient: Less than 30
[2022-02-16 20:52] LABS: Glucose,Whole Blood 385 mg/dL (70-110)
[2022-02-16] MEDS: LATANOPROST 0.005% OPHTH DROPS 2.5 ML BTL BOTH EYES SCH (21:15)
--- NOTE | 2022-02-16 22:37 | OP ---
OPERATIVE REPORT PREOPERATIVE DIAGNOSIS: Right foot infected callus on the plantar aspect, measurement is 2 x 1 cm. POSTOPERATIVE DIAGNOSIS: Right foot infected callus on the plantar aspect, measurement is 2 x 1 x 1 cm. OPERATION: ESTIMATED BLOOD LOSS: SPECIMEN TAKEN: NARRATIVE: This patient was brought to the operating room. Right foot was prepped and draped in the usual sterile manner. This patient has an infected callus on the plantar aspect of the right foot. 1% lidocaine was infiltrated. Using sharp knife, we excised the infected callus, deepened through skin, fat and fascia. The metatarsal bone was exposed. Infected callus and devitalized tissue was removed. Tissue was sent for deep culture. The patient was offered to have a right foot big toe removed, but the patient is refusing, so we excised the infected callus and blood loss was minimum. Aquacel was applied to the wound. Dressing applied. The patient tolerated the procedure well. Prognosis is guarded. He may need right big toe amputation. Dressing applied. The patient tolerated the procedure well. MMODL / IJN: [id number] /
[2022-02-17] MEDS: AMPICILLIN-SULBACTAM 3 GM in SODIUM CHLORIDE 0.9% 100 ML IVPB SCH ×4 (00:54→17:37)
[2022-02-17 02:48] LABS: Glucose,Whole Blood 69 mg/dL (70-110)
[2022-02-17 03:13] LABS: Glucose,Whole Blood 140 mg/dL (70-110)
[2022-02-17 06:24] LABS: Glucose,Whole Blood 264 mg/dL (70-110)
[2022-02-17] MEDS: INSULIN ASPART (NovoLOG) 100 UNIT/ML VIAL SQ SCH ×4 (06:34→21:11)
[2022-02-17] MEDS: PANTOPRAZOLE 40 MG TABLET PO SCH ×2 (06:34→17:36)
[2022-02-17] MEDS: SODIUM CHLORIDE 0.9% 1,000 ML IV SCH (06:35)
[2022-02-17 08:58] LABS: ALT 9 U/L (10-49); AST 11 U/L (14-35); African American GFR (CKD) 111.7 (60.0-200.0); Albumin 2.9 g/dL (3.8-4.9); Albumin/Globulin Ratio 0.97 (1.60-3.17); Alkaline Phosphatase 110 U/L (41-126); BUN/Creat Ratio 16.63 Ratio (12.00-20.00); Blood Urea Nitrogen 13.3 mg/dL (9.0-27.0); Calcium 8.3 mg/dL (8.7-10.3); Carbon Dioxide 27.3 mmol/L (20.0-27.5); Chloride 100 mmol/L (96-109); Glucose 238 mg/dL (70-110); Non-African American GFR(CKD) 96.4 (60.0-200.0); Potassium 4.1 mmol/L (3.5-5.5); Sodium 137 mmol/L (135-145); Total Bilirubin <0.15 mg/dL (0.30-1.20); Total Protein 5.9 g/dL (6.2-8.2)
[2022-02-17] MEDS: ENOXAPARIN 40 MG/0.4 ML SYRINGE SQ SCH (09:08)
[2022-02-17] MEDS: INSULIN DETEMIR (LEVEMIR) 100 UNIT/ML SYR SQ SCH (09:09)
[2022-02-17] MEDS: PIOGLITAZONE 15 MG TAB PO SCH (09:09)
[2022-02-17] MEDS: PHENYTOIN SODIUM EXTENDED 100 MG CAP PO SCH ×2 (09:09→21:11)
[2022-02-17] MEDS: ATORVASTATIN 20 MG TAB PO SCH (09:09)
[2022-02-17 09:20] LABS: Basophils # (A) 0.04 X 10*3/uL (0.00-0.10); Basophils % (A) 0.4 %; Eosinophils # (A) 0.28 X 10*3/uL (0.04-0.35); Eosinophils % (A) 2.7 %; HCT 26.9 % (39.6-50.0); HGB 7.9 g/dL (13.0-17.0); Immature Grans, Automated 0.4 %; Lymphocytes # (A) 1.06 X 10*3/uL (0.90-5.00); Lymphocytes % (A) 10.4 %; MCH 23.5 pg (27.0-32.0); MCHC 29.4 g/dL (32.0-37.0); MCV 80.1 fL (80.0-97.0); Mean Platelet Volume 9.1 fL (9.5-12.2); Monocytes # (A) 0.55 X 10*3/uL (0.20-1.00); Monocytes % (A) 5.4 %; NRBC Per 100 WBC 0 /100 WBCS (0.0-0.0); Neutrophils # (A) 8.22 X 10*3/uL (1.80-7.70); Neutrophils % (A) 80.7 %; Platelet Count 409 X 10*3/uL (140-440); RBC 3.36 X 10*6/uL (4.40-5.60); RDW 21.4 % (11.5-14.5); WBC 10.19 X 10*3/uL (4.50-10.00)
--- NOTE | 2022-02-17 09:43 | P.PN ---
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 Patient was recently treated at [facility] with IV antibiotics. At that time basilar surgery was recommending amputation of foot but patient declined. Patient reports he has been receiving his IV antibiotic infusion. Additional medical history includes diabetes mellitus type 2 with poor control, chronic lower extremity infection, seizure disorder, hyperlipidemia and anemia. Foot x-ray completed showing the structure changes in the big toe and the first metatarsal head consistent with osteomyelitis and appears new compared to old exam. Patient was started on IV vancomycin. Infectious disease service is consulted. We'll also consult vascular surgeon per patient's choice. Blood culture and repeat labs ordered. Repeat labs temp 90.3, heart rate 100, respiratory rate 20, blood pressure 146/74 with possible some 100% on room air On 02/15/2022 Patient was seen and examined on the medical floor he is alert and oriented 3 in no apparent distress there is no fever or chills no headache or dizziness no chest pain no shortness of breath no cough no nausea or vomiting no abdominal pain no diarrhea and no urinary symptoms, patient is complaining of discomfort in his right foot but no severe pain. On 02/16/2022 patient was seen and examined on the medical floor he is alert and oriented 3 in no apparent distress, he is complaining of some discomfort in his foot otherwise he denies any complaints there is no fever or chills no headache or dizziness no chest pain no shortness of breath no cough, there is no nausea or vomiting no abdominal pain no diarrhea no blood in the stools no burning with urination no frequency or urgency and no hematuria On 02/17/2022 patient was seen and examined on the medical floor he is alert and oriented 3 in no apparent distress there is no fever or chills no headache or dizziness no chest pain no shortness of breath no cough no nausea or vomiting no abdominal pain no diarrhea and no urinary symptoms, he is still complaining of some pain in the right foot otherwise he denies any complaints, he underwent right foot wound debridement with callus excision yesterday, he was advised to have right big toe amputation however he refused. He is maintained on IV antibiotics Unasyn, he is followed by infectious disease, we are awaiting further recommendation for antibiotic management. Objective - Vital Signs Vital signs: Vital Signs Temp 98.3 F 02/17/22 07:35 Pulse 99 02/17/22 07:35 Resp 16 02/17/22 07:35 BP 139/80 02/17/22 07:35 Pulse Ox 95 02/17/22 07:35 FiO2 Intake & Output 02/16/22 02/17/22 02/17/22 18:59 06:59 18:59 Intake Total 558 Output Total 5 Balance 553 Weight 47.627 kg Intake: IV 200 Oral 358 Output: Estimated Blood Loss 5 Other: Voiding Method Toilet # Voids 2 2 - Exam In general patient is alert and oriented x 3 in no distress HEENT head normocephalic and atraumatic Neck is supple no JVD no goiter no lymphadenopathy no carotid bruit Chest examination is clear to auscultation no crackles no wheezing Cardiac exam reveals regular heart sounds S1 and S2 no gallops no murmurs Abdomen is soft nontender no organomegaly with normal bowel sounds Extremity exam no edema. Open ulcer noted to plantar surface of the right foot Neurological examination reveals no gross focal deficits - Labs CBC & Chem 7: 02/17/22 04:50 02/17/22 04:50 Labs: Abnormal Lab Results - Last 24 Hours (Table) 02/16/22 02/16/22 02/16/22 Range/Units 06:09 06:09 12:03 RBC 3.58 L (4.40-5.60) X 10*6/uL Hgb 8.5 L (13.0-17.0) g/dL Hct 28.3 L (39.6-50.0) % MCV 79.1 L (80.0-97.0) fL MCH 23.7 L (27.0-32.0) pg MCHC 30.0 L (32.0-37.0) g/dL RDW 21.5 H (11.5-14.5) % MPV 9.1 L (9.5-12.2) fL Carbon Dioxide 31.3 H (20.0-27.5) mmol/L Anion Gap 7.70 L (10.00-18.00) mmol/L Glucose (70-110) mg/dL POC Glucose (mg/dL) 64 L (70-110) mg/dL Calcium (8.7-10.3) mg/dL Total Bilirubin <0.15 L (0.30-1.20) mg/dL AST 12 L (14-35) U/L ALT 9 L (10-49) U/L Total Protein 6.1 L (6.2-8.2) g/dL Albumin 3.0 L (3.8-4.9) g/dL Albumin/Globulin Ratio 0.96 L (1.60-3.17) g/dL 02/16/22 02/16/22 02/16/22 Range/Units 12:37 15:01 15:02 RBC (4.40-5.60) X 10*6/uL Hgb (13.0-17.0) g/dL Hct (39.6-50.0) % MCV (80.0-97.0) fL MCH (27.0-32.0) pg MCHC (32.0-37.0) g/dL RDW (11.5-14.5) % MPV (9.5-12.2) fL Carbon Dioxide (20.0-27.5) mmol/L Anion Gap (10.00-18.00) mmol/L Glucose (70-110) mg/dL POC Glucose (mg/dL) 129 H 46 L 44 L (70-110) mg/dL Calcium (8.7-10.3) mg/dL Total Bilirubin (0.30-1.20) mg/dL AST (14-35) U/L ALT (10-49) U/L Total Protein (6.2-8.2) g/dL Albumin (3.8-4.9) g/dL Albumin/Globulin Ratio (1.60-3.17) g/dL 02/16/22 02/16/22 02/16/22 Range/Units 15:15 16:59 17:17 RBC (4.40-5.60) X 10*6/uL Hgb (13.0-17.0) g/dL Hct (39.6-50.0) % MCV (80.0-97.0) fL MCH (27.0-32.0) pg MCHC (32.0-37.0) g/dL RDW (11.5-14.5) % MPV (9.5-12.2) fL Carbon Dioxide (20.0-27.5) mmol/L Anion Gap (10.00-18.00) mmol/L Glucose (70-110) mg/dL POC Glucose (mg/dL) 120 H 56 L 61 L (70-110) mg/dL Calcium (8.7-10.3) mg/dL Total Bilirubin (0.30-1.20) mg/dL AST (14-35) U/L ALT (10-49) U/L Total Protein (6.2-8.2) g/dL Albumin (3.8-4.9) g/dL Albumin/Globulin Ratio (1.60-3.17) g/dL 02/16/22 02/16/22 02/17/22 Range/Units 17:36 20:48 02:45 RBC (4.40-5.60) X 10*6/uL Hgb (13.0-17.0) g/dL Hct (39.6-50.0) % MCV (80.0-97.0) fL MCH (27.0-32.0) pg MCHC (32.0-37.0) g/dL RDW (11.5-14.5) % MPV (9.5-12.2) fL Carbon Dioxide (20.0-27.5) mmol/L Anion Gap (10.00-18.00) mmol/L Glucose (70-110) mg/dL POC Glucose (mg/dL) 153 H 385 H 69 L (70-110) mg/dL Calcium (8.7-10.3) mg/dL Total Bilirubin (0.30-1.20) mg/dL AST (14-35) U/L ALT (10-49) U/L Total Protein (6.2-8.2) g/dL Albumin (3.8-4.9) g/dL Albumin/Globulin Ratio (1.60-3.17) g/dL 02/17/22 02/17/22 02/17/22 Range/Units 03:12 04:50 06:22 RBC (4.40-5.60) X 10*6/uL Hgb (13.0-17.0) g/dL Hct (39.6-50.0) % MCV (80.0-97.0) fL MCH (27.0-32.0) pg MCHC (32.0-37.0) g/dL RDW (11.5-14.5) % MPV (9.5-12.2) fL Carbon Dioxide (20.0-27.5) mmol/L Anion Gap 9.70 L (10.00-18.00) mmol/L Glucose 238 H (70-110) mg/dL POC Glucose (mg/dL) 140 H 264 H (70-110) mg/dL Calcium 8.3 L (8.7-10.3) mg/dL Total Bilirubin <0.15 L (0.30-1.20) mg/dL AST 11 L (14-35) U/L ALT 9 L (10-49) U/L Total Protein 5.9 L (6.2-8.2) g/dL Albumin 2.9 L (3.8-4.9) g/dL Albumin/Globulin Ratio 0.97 L (1.60-3.17) g/dL Microbiology - Last 24 Hours (Table) 02/14/22 00:01 Blood Culture - Preliminary Blood No Growth after 72 hours 02/14/22 00:15 Blood Culture Gram Stain - Preliminary Blood 02/14/22 00:15 Blood Culture - Final Blood 02/14/22 00:15 Gram Stain - Final Foot - Right Wound Culture - Final Assessment and Plan Assessment: Right foot wound with concerns of osteomyelitis Underlying history of insulin-dependent diabetes mellitus Underlying history of chronic lower extremity infection was open ulcers followed at the wound care clinic Underlying history of seizure disorder maintained on Dilantin Underlying history of hyperlipidemia Anemia, will check iron level and vitamin B12 and folate level GI prophylaxis Lovenox. GI prophylaxis Protonix Infectious disease and vascular surgery consulted Continue with IV vancomycin Blood culture and repeat labs ordered
[2022-02-17 12:27] LABS: Glucose,Whole Blood 256 mg/dL (70-110)
[2022-02-17 15:39] LABS: Glucose,Whole Blood 48 mg/dL (70-110)
[2022-02-17 15:56] LABS: Glucose,Whole Blood 66 mg/dL (70-110)
[2022-02-17 16:12] LABS: Glucose,Whole Blood 76 mg/dL (70-110)
[2022-02-17 17:13] LABS: Glucose,Whole Blood 237 mg/dL (70-110)
[2022-02-17 20:55] LABS: Glucose,Whole Blood 302 mg/dL (70-110)
[2022-02-17] MEDS: LATANOPROST 0.005% OPHTH DROPS 2.5 ML BTL BOTH EYES SCH (21:11)
[2022-02-18] MEDS: AMPICILLIN-SULBACTAM 3 GM in SODIUM CHLORIDE 0.9% 100 ML IVPB SCH ×5 (00:03→23:08)
[2022-02-18] MEDS: SODIUM CHLORIDE 0.9% 1,000 ML IV SCH ×2 (00:04→23:08)
[2022-02-18 02:19] LABS: Glucose,Whole Blood 66 mg/dL (70-110)
[2022-02-18 02:44] LABS: Glucose,Whole Blood 104 mg/dL (70-110)
[2022-02-18 05:56] LABS: Glucose,Whole Blood 189 mg/dL (70-110)
[2022-02-18] MEDS: PANTOPRAZOLE 40 MG TABLET PO SCH ×2 (06:27→17:42)
[2022-02-18] MEDS: INSULIN ASPART (NovoLOG) 100 UNIT/ML VIAL SQ SCH ×4 (06:28→20:47)
[2022-02-18] MEDS: PHENYTOIN SODIUM EXTENDED 100 MG CAP PO SCH ×2 (07:49→20:09)
[2022-02-18] MEDS: ATORVASTATIN 20 MG TAB PO SCH (07:49)
[2022-02-18] MEDS: INSULIN DETEMIR (LEVEMIR) 100 UNIT/ML SYR SQ SCH (07:49)
[2022-02-18] MEDS: PIOGLITAZONE 15 MG TAB PO SCH (07:49)
[2022-02-18] MEDS: ENOXAPARIN 40 MG/0.4 ML SYRINGE SQ SCH (07:49)
[2022-02-18 09:00] LABS: Basophils # (A) 0.05 X 10*3/uL (0.00-0.10); Basophils % (A) 0.6 %; Eosinophils # (A) 0.32 X 10*3/uL (0.04-0.35); Eosinophils % (A) 3.6 %; HCT 26.8 % (39.6-50.0); Immature Grans, Automated 0.3 %; Lymphocytes # (A) 1.59 X 10*3/uL (0.90-5.00); Lymphocytes % (A) 17.7 %; MCH 23.8 pg (27.0-32.0); MCHC 29.9 g/dL (32.0-37.0); MCV 79.8 fL (80.0-97.0); Mean Platelet Volume 9.2 fL (9.5-12.2); Monocytes # (A) 0.59 X 10*3/uL (0.20-1.00); Monocytes % (A) 6.6 %; NRBC Per 100 WBC 0 /100 WBCS (0.0-0.0); Neutrophils # (A) 6.41 X 10*3/uL (1.80-7.70); Neutrophils % (A) 71.2 %; Platelet Count 383 X 10*3/uL (140-440); RBC 3.36 X 10*6/uL (4.40-5.60); RDW 21.2 % (11.5-14.5); WBC 8.99 X 10*3/uL (4.50-10.00)
[2022-02-18 09:22] LABS: ALT 6 U/L (10-49); AST 11 U/L (14-35); African American GFR (CKD) 111.7 (60.0-200.0); Albumin 2.9 g/dL (3.8-4.9); Albumin/Globulin Ratio 0.97 (1.60-3.17); Alkaline Phosphatase 109 U/L (41-126); BUN/Creat Ratio 16.38 Ratio (12.00-20.00); Blood Urea Nitrogen 13.1 mg/dL (9.0-27.0); Calcium 8.2 mg/dL (8.7-10.3); Carbon Dioxide 28.3 mmol/L (20.0-27.5); Chloride 100 mmol/L (96-109); Glucose 161 mg/dL (70-110); Non-African American GFR(CKD) 96.4 (60.0-200.0); Potassium 4.3 mmol/L (3.5-5.5); Sodium 137 mmol/L (135-145); Total Bilirubin <0.15 mg/dL (0.30-1.20); Total Protein 5.9 g/dL (6.2-8.2)
--- NOTE | 2022-02-18 09:54 | P.PN ---
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 Patient was recently treated at [facility] with IV antibiotics. At that time basilar surgery was recommending amputation of foot but patient declined. Patient reports he has been receiving his IV antibiotic infusion. Additional medical history includes diabetes mellitus type 2 with poor control, chronic lower extremity infection, seizure disorder, hyperlipidemia and anemia. Foot x-ray completed showing the structure changes in the big toe and the first metatarsal head consistent with osteomyelitis and appears new compared to old exam. Patient was started on IV vancomycin. Infectious disease service is consulted. We'll also consult vascular surgeon per patient's choice. Blood culture and repeat labs ordered. Repeat labs temp 90.3, heart rate 100, respiratory rate 20, blood pressure 146/74 with possible some 100% on room air On 02/15/2022 Patient was seen and examined on the medical floor he is alert and oriented 3 in no apparent distress there is no fever or chills no headache or dizziness no chest pain no shortness of breath no cough no nausea or vomiting no abdominal pain no diarrhea and no urinary symptoms, patient is complaining of discomfort in his right foot but no severe pain. On 02/16/2022 patient was seen and examined on the medical floor he is alert and oriented 3 in no apparent distress, he is complaining of some discomfort in his foot otherwise he denies any complaints there is no fever or chills no headache or dizziness no chest pain no shortness of breath no cough, there is no nausea or vomiting no abdominal pain no diarrhea no blood in the stools no burning with urination no frequency or urgency and no hematuria On 02/17/2022 patient was seen and examined on the medical floor he is alert and oriented 3 in no apparent distress there is no fever or chills no headache or dizziness no chest pain no shortness of breath no cough no nausea or vomiting no abdominal pain no diarrhea and no urinary symptoms, he is still complaining of some pain in the right foot otherwise he denies any complaints, he underwent right foot wound debridement with callus excision yesterday, he was advised to have right big toe amputation however he refused. He is maintained on IV antibiotics Unasyn, he is followed by infectious disease, we are awaiting further recommendation for antibiotic management. On 02/18/2022 patient was seen and examined on the medical floor he is alert and oriented in no apparent distress he is complaining of pain in his foot otherwise he denies any complaints at this time patient is followed by infectious disease we are awaiting for culture results to decide on antibiotic management possible discharge in the next 1-2 days, patient may need to go to a fpc if IV antibiotics are recommended. Objective - Vital Signs Vital signs: Vital Signs Temp 98.3 F 02/18/22 06:47 Pulse 100 02/18/22 06:47 Resp 16 02/18/22 02:42 BP 139/77 02/18/22 06:47 Pulse Ox 95 02/18/22 06:47 FiO2 Intake & Output 02/17/22 02/18/22 02/18/22 18:59 06:59 18:59 Intake Total 718 Balance 718 Intake: Oral 718 Other: Voiding Method Toilet # Voids 3 2 # Bowel Movements 1 - Exam In general patient is alert and oriented x 3 in no distress HEENT head normocephalic and atraumatic Neck is supple no JVD no goiter no lymphadenopathy no carotid bruit Chest examination is clear to auscultation no crackles no wheezing Cardiac exam reveals regular heart sounds S1 and S2 no gallops no murmurs Abdomen is soft nontender no organomegaly with normal bowel sounds Extremity exam no edema. Open ulcer noted to plantar surface of the right foot Neurological examination reveals no gross focal deficits - Labs CBC & Chem 7: 02/18/22 05:04 02/18/22 05:04 Labs: Abnormal Lab Results - Last 24 Hours (Table) 02/17/22 02/17/22 02/17/22 Range/Units 04:50 04:50 12:25 WBC 10.19 H (4.50-10.00) X 10*3/uL RBC 3.36 L (4.40-5.60) X 10*6/uL Hgb 7.9 L (13.0-17.0) g/dL Hct 26.9 L (39.6-50.0) % MCH 23.5 L (27.0-32.0) pg MCHC 29.4 L (32.0-37.0) g/dL RDW 21.4 H (11.5-14.5) % MPV 9.1 L (9.5-12.2) fL Neutrophils # 8.22 H (1.80-7.70) X 10*3/uL Anion Gap 9.70 L (10.00-18.00) mmol/L Glucose 238 H (70-110) mg/dL POC Glucose (mg/dL) 256 H (70-110) mg/dL Calcium 8.3 L (8.7-10.3) mg/dL Total Bilirubin <0.15 L (0.30-1.20) mg/dL AST 11 L (14-35) U/L ALT 9 L (10-49) U/L Total Protein 5.9 L (6.2-8.2) g/dL Albumin 2.9 L (3.8-4.9) g/dL Albumin/Globulin Ratio 0.97 L (1.60-3.17) g/dL 02/17/22 02/17/22 02/17/22 Range/Units 15:37 15:55 17:12 WBC (4.50-10.00) X 10*3/uL RBC (4.40-5.60) X 10*6/uL Hgb (13.0-17.0) g/dL Hct (39.6-50.0) % MCH (27.0-32.0) pg MCHC (32.0-37.0) g/dL RDW (11.5-14.5) % MPV (9.5-12.2) fL Neutrophils # (1.80-7.70) X 10*3/uL Anion Gap (10.00-18.00) mmol/L Glucose (70-110) mg/dL POC Glucose (mg/dL) 48 L 66 L 237 H (70-110) mg/dL Calcium (8.7-10.3) mg/dL Total Bilirubin (0.30-1.20) mg/dL AST (14-35) U/L ALT (10-49) U/L Total Protein (6.2-8.2) g/dL Albumin (3.8-4.9) g/dL Albumin/Globulin Ratio (1.60-3.17) g/dL 02/17/22 02/18/22 02/18/22 Range/Units 20:33 02:18 05:54 WBC (4.50-10.00) X 10*3/uL RBC (4.40-5.60) X 10*6/uL Hgb (13.0-17.0) g/dL Hct (39.6-50.0) % MCH (27.0-32.0) pg MCHC (32.0-37.0) g/dL RDW (11.5-14.5) % MPV (9.5-12.2) fL Neutrophils # (1.80-7.70) X 10*3/uL Anion Gap (10.00-18.00) mmol/L Glucose (70-110) mg/dL POC Glucose (mg/dL) 302 H 66 L 189 H (70-110) mg/dL Calcium (8.7-10.3) mg/dL Total Bilirubin (0.30-1.20) mg/dL AST (14-35) U/L ALT (10-49) U/L Total Protein (6.2-8.2) g/dL Albumin (3.8-4.9) g/dL Albumin/Globulin Ratio (1.60-3.17) g/dL Microbiology - Last 24 Hours (Table) 02/14/22 00:01 Blood Culture - Preliminary Blood No Growth after 96 hours 02/16/22 15:50 Gram Stain - Preliminary Foot - Right Wound Culture - Preliminary 02/16/22 15:50 Anaerobic Culture - Preliminary Foot - Right Assessment and Plan Assessment: Right foot wound with concerns of osteomyelitis Underlying history of insulin-dependent diabetes mellitus Underlying history of chronic lower extremity infection was open ulcers followed at the wound care clinic Underlying history of seizure disorder maintained on Dilantin Underlying history of hyperlipidemia Anemia, will check iron level and vitamin B12 and folate level GI prophylaxis Lovenox. GI prophylaxis Protonix Infectious disease and vascular surgery consulted Continue with IV vancomycin Blood culture and repeat labs ordered
[2022-02-18 12:22] LABS: Glucose,Whole Blood 151 mg/dL (70-110)
[2022-02-18 14:53] LABS: African American GFR (CKD) 106.5 (60.0-200.0); Anion Gap 8.9 mmol/L (10.00-18.00); BUN/Creat Ratio 13.78 Ratio (12.00-20.00); Blood Urea Nitrogen 12.4 mg/dL (9.0-27.0); Calcium 8.4 mg/dL (8.7-10.3); Carbon Dioxide 27.1 mmol/L (20.0-27.5); Non-African American GFR(CKD) 91.9 (60.0-200.0); Potassium 4.5 mmol/L (3.5-5.5)
[2022-02-18 17:35] LABS: Glucose,Whole Blood 112 mg/dL (70-110)
[2022-02-18] MEDS: LATANOPROST 0.005% OPHTH DROPS 2.5 ML BTL BOTH EYES SCH (20:09)
[2022-02-18 20:43] LABS: Glucose,Whole Blood 142 mg/dL (70-110)
--- NOTE | 2022-02-18 23:02 | P.PN ---
Subjective Progress Note Date: 02/17/22 Principal diagnosis: Right foot osteomyelitis Patient is a 61-year-old male with a past medical history significant for diabetes mellitus recent admission at [facility] patient did have streptococcal bacteremia and evidence of right foot infected callus and concerning for underlying osteomyelitis patient refused surgery at that point and was discharged on IV Rocephin and Flagyl subsequently admitted back to the hospital per advice of his optometric technologist, with the x-ray completed did shows destructive changes to the big toe and first metatarsal head consistent with osteomyelitis. Patient has been reevaluated by vascular surgery and apparently the patient has agreed for surgical debridement of his right foot wound completed on 02/16/2022 On today's evaluation that is 02/17/2022, the patient continues to be afebrile patient is breathing comfortably on room air, the patient denies any chest pain shortness of breath or cough no nausea no vomiting no abdominal pain and the patient denies any worsening pain to the right foot area wound area Objective - Vital Signs Vital signs: Vital Signs Temp 98.3 F 02/17/22 07:35 Pulse 99 02/17/22 07:35 Resp 16 02/17/22 07:35 BP 139/80 02/17/22 07:35 Pulse Ox 95 02/17/22 07:35 FiO2 Intake & Output 02/16/22 02/17/22 02/17/22 18:59 06:59 18:59 Intake Total 558 358 Output Total 5 Balance 553 358 Weight 47.627 kg Intake: IV 200 Oral 358 358 Output: Estimated Blood Loss 5 Other: Voiding Method Toilet # Voids 2 2 - Exam GENERAL DESCRIPTION: Middle-aged male lying in bed in no distress RESPIRATORY SYSTEM: Unlabored breathing , decreased breath sounds at bases HEART: S1 S2 regular rate and rhythm , ABDOMEN: Soft , no tenderness EXTREMITIES: Right foot is currently dressed minimal drainage on the dressing - Labs CBC & Chem 7: 02/18/22 05:04 02/18/22 10:46 Labs: Abnormal Lab Results - Last 24 Hours (Table) 02/16/22 02/16/22 02/16/22 Range/Units 15:01 15:02 15:15 WBC (4.50-10.00) X 10*3/uL RBC (4.40-5.60) X 10*6/uL Hgb (13.0-17.0) g/dL Hct (39.6-50.0) % MCH (27.0-32.0) pg MCHC (32.0-37.0) g/dL RDW (11.5-14.5) % MPV (9.5-12.2) fL Neutrophils # (1.80-7.70) X 10*3/uL Anion Gap (10.00-18.00) mmol/L Glucose (70-110) mg/dL POC Glucose (mg/dL) 46 L 44 L 120 H (70-110) mg/dL Calcium (8.7-10.3) mg/dL Total Bilirubin (0.30-1.20) mg/dL AST (14-35) U/L ALT (10-49) U/L Total Protein (6.2-8.2) g/dL Albumin (3.8-4.9) g/dL Albumin/Globulin Ratio (1.60-3.17) g/dL 02/16/22 02/16/22 02/16/22 Range/Units 16:59 17:17 17:36 WBC (4.50-10.00) X 10*3/uL RBC (4.40-5.60) X 10*6/uL Hgb (13.0-17.0) g/dL Hct (39.6-50.0) % MCH (27.0-32.0) pg MCHC (32.0-37.0) g/dL RDW (11.5-14.5) % MPV (9.5-12.2) fL Neutrophils # (1.80-7.70) X 10*3/uL Anion Gap (10.00-18.00) mmol/L Glucose (70-110) mg/dL POC Glucose (mg/dL) 56 L 61 L 153 H (70-110) mg/dL Calcium (8.7-10.3) mg/dL Total Bilirubin (0.30-1.20) mg/dL AST (14-35) U/L ALT (10-49) U/L Total Protein (6.2-8.2) g/dL Albumin (3.8-4.9) g/dL Albumin/Globulin Ratio (1.60-3.17) g/dL 02/16/22 02/17/22 02/17/22 Range/Units 20:48 02:45 03:12 WBC (4.50-10.00) X 10*3/uL RBC (4.40-5.60) X 10*6/uL Hgb (13.0-17.0) g/dL Hct (39.6-50.0) % MCH (27.0-32.0) pg MCHC (32.0-37.0) g/dL RDW (11.5-14.5) % MPV (9.5-12.2) fL Neutrophils # (1.80-7.70) X 10*3/uL Anion Gap (10.00-18.00) mmol/L Glucose (70-110) mg/dL POC Glucose (mg/dL) 385 H 69 L 140 H (70-110) mg/dL Calcium (8.7-10.3) mg/dL Total Bilirubin (0.30-1.20) mg/dL AST (14-35) U/L ALT (10-49) U/L Total Protein (6.2-8.2) g/dL Albumin (3.8-4.9) g/dL Albumin/Globulin Ratio (1.60-3.17) g/dL 02/17/22 02/17/22 02/17/22 Range/Units 04:50 04:50 06:22 WBC 10.19 H (4.50-10.00) X 10*3/uL RBC 3.36 L (4.40-5.60) X 10*6/uL Hgb 7.9 L (13.0-17.0) g/dL Hct 26.9 L (39.6-50.0) % MCH 23.5 L (27.0-32.0) pg MCHC 29.4 L (32.0-37.0) g/dL RDW 21.4 H (11.5-14.5) % MPV 9.1 L (9.5-12.2) fL Neutrophils # 8.22 H (1.80-7.70) X 10*3/uL Anion Gap 9.70 L (10.00-18.00) mmol/L Glucose 238 H (70-110) mg/dL POC Glucose (mg/dL) 264 H (70-110) mg/dL Calcium 8.3 L (8.7-10.3) mg/dL Total Bilirubin <0.15 L (0.30-1.20) mg/dL AST 11 L (14-35) U/L ALT 9 L (10-49) U/L Total Protein 5.9 L (6.2-8.2) g/dL Albumin 2.9 L (3.8-4.9) g/dL Albumin/Globulin Ratio 0.97 L (1.60-3.17) g/dL 02/17/22 Range/Units 12:25 WBC (4.50-10.00) X 10*3/uL RBC (4.40-5.60) X 10*6/uL Hgb (13.0-17.0) g/dL Hct (39.6-50.0) % MCH (27.0-32.0) pg MCHC (32.0-37.0) g/dL RDW (11.5-14.5) % MPV (9.5-12.2) fL Neutrophils # (1.80-7.70) X 10*3/uL Anion Gap (10.00-18.00) mmol/L Glucose (70-110) mg/dL POC Glucose (mg/dL) 256 H (70-110) mg/dL Calcium (8.7-10.3) mg/dL Total Bilirubin (0.30-1.20) mg/dL AST (14-35) U/L ALT (10-49) U/L Total Protein (6.2-8.2) g/dL Albumin (3.8-4.9) g/dL Albumin/Globulin Ratio (1.60-3.17) g/dL Microbiology - Last 24 Hours (Table) 02/16/22 15:50 Gram Stain - Preliminary Foot - Right Wound Culture - Preliminary 02/16/22 15:50 Anaerobic Culture - Preliminary Foot - Right 02/14/22 00:01 Blood Culture - Preliminary Blood No Growth after 72 hours 02/14/22 00:15 Blood Culture Gram Stain - Preliminary Blood 02/14/22 00:15 Blood Culture - Final Blood 02/14/22 00:15 Gram Stain - Final Foot - Right Wound Culture - Final Assessment and Plan (1) Osteomyelitis Current Visit: Yes Status: Acute Code(s): M86.9 - OSTEOMYELITIS, UNSPECIFIED SNOMED Code(s): 61818556 Plan: 1patient with a right diabetic foot infection with a nonhealing wound on the plantar aspect of the right foot and concern for underlying osteomyelitis patient did have a streptococcal bacteremia and culture positive from right foot with the same pathogen and the patient has been receiving outpatient Rocephin and oral Flagyl 2 the patient is scheduled for surgical debridement and deep culture completed on 02/16/2022 with a culture is currently pending 3-patient to continue with Unasyn while waiting for repeat cultures to be finalize to determine his discharge antibiotics Time with Patient: Less than 30
--- NOTE | 2022-02-18 23:03 | P.PN ---
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 Patient has been reevaluated by vascular surgery and apparently the patient has agreed for surgical debridement of his right foot wound completed on 02/16/2022 On today's evaluation that is 02/18/2022, the patient denies any fever or chills, patient is breathing comfortably on room air, the patient denies any chest pain shortness of breath or cough no nausea no vomiting no abdominal pain and no worsening pain to the right foot Objective - Vital Signs Vital signs: Vital Signs Temp 97.8 F 02/18/22 07:48 Pulse 95 02/18/22 07:48 Resp 16 02/18/22 07:48 BP 144/71 02/18/22 07:48 Pulse Ox 95 02/18/22 07:48 FiO2 Intake & Output 02/17/22 02/18/22 02/18/22 18:59 06:59 18:59 Intake Total 718 240 Balance 718 240 Intake: Oral 718 240 Other: Voiding Method Toilet # Voids 3 2 # Bowel Movements 1 - Exam GENERAL DESCRIPTION: Middle-aged male lying in bed in no distress RESPIRATORY SYSTEM: Unlabored breathing , decreased breath sounds at bases HEART: S1 S2 regular rate and rhythm , ABDOMEN: Soft , no tenderness EXTREMITIES: Right foot is currently dressed minimal drainage on the dressing - Labs CBC & Chem 7: 02/18/22 05:04 02/18/22 10:46 Labs: Abnormal Lab Results - Last 24 Hours (Table) 02/17/22 02/17/22 02/17/22 Range/Units 15:37 15:55 17:12 RBC (4.40-5.60) X 10*6/uL Hgb (13.0-17.0) g/dL Hct (39.6-50.0) % MCV (80.0-97.0) fL MCH (27.0-32.0) pg MCHC (32.0-37.0) g/dL RDW (11.5-14.5) % MPV (9.5-12.2) fL Carbon Dioxide (20.0-27.5) mmol/L Anion Gap (10.00-18.00) mmol/L Glucose (70-110) mg/dL POC Glucose (mg/dL) 48 L 66 L 237 H (70-110) mg/dL Calcium (8.7-10.3) mg/dL Total Bilirubin (0.30-1.20) mg/dL AST (14-35) U/L ALT (10-49) U/L Total Protein (6.2-8.2) g/dL Albumin (3.8-4.9) g/dL Albumin/Globulin Ratio (1.60-3.17) g/dL 02/17/22 02/18/22 02/18/22 Range/Units 20:33 02:18 05:04 RBC 3.36 L (4.40-5.60) X 10*6/uL Hgb 8.0 L (13.0-17.0) g/dL Hct 26.8 L (39.6-50.0) % MCV 79.8 L (80.0-97.0) fL MCH 23.8 L (27.0-32.0) pg MCHC 29.9 L (32.0-37.0) g/dL RDW 21.2 H (11.5-14.5) % MPV 9.2 L (9.5-12.2) fL Carbon Dioxide (20.0-27.5) mmol/L Anion Gap (10.00-18.00) mmol/L Glucose (70-110) mg/dL POC Glucose (mg/dL) 302 H 66 L (70-110) mg/dL Calcium (8.7-10.3) mg/dL Total Bilirubin (0.30-1.20) mg/dL AST (14-35) U/L ALT (10-49) U/L Total Protein (6.2-8.2) g/dL Albumin (3.8-4.9) g/dL Albumin/Globulin Ratio (1.60-3.17) g/dL 02/18/22 02/18/22 02/18/22 Range/Units 05:04 05:54 10:46 RBC (4.40-5.60) X 10*6/uL Hgb (13.0-17.0) g/dL Hct (39.6-50.0) % MCV (80.0-97.0) fL MCH (27.0-32.0) pg MCHC (32.0-37.0) g/dL RDW (11.5-14.5) % MPV (9.5-12.2) fL Carbon Dioxide 28.3 H (20.0-27.5) mmol/L Anion Gap 8.70 L 8.90 L (10.00-18.00) mmol/L Glucose 161 H 193 H (70-110) mg/dL POC Glucose (mg/dL) 189 H (70-110) mg/dL Calcium 8.2 L 8.4 L (8.7-10.3) mg/dL Total Bilirubin <0.15 L (0.30-1.20) mg/dL AST 11 L (14-35) U/L ALT 6 L (10-49) U/L Total Protein 5.9 L (6.2-8.2) g/dL Albumin 2.9 L (3.8-4.9) g/dL Albumin/Globulin Ratio 0.97 L (1.60-3.17) g/dL 02/18/22 Range/Units 12:20 RBC (4.40-5.60) X 10*6/uL Hgb (13.0-17.0) g/dL Hct (39.6-50.0) % MCV (80.0-97.0) fL MCH (27.0-32.0) pg MCHC (32.0-37.0) g/dL RDW (11.5-14.5) % MPV (9.5-12.2) fL Carbon Dioxide (20.0-27.5) mmol/L Anion Gap (10.00-18.00) mmol/L Glucose (70-110) mg/dL POC Glucose (mg/dL) 151 H (70-110) mg/dL Calcium (8.7-10.3) mg/dL Total Bilirubin (0.30-1.20) mg/dL AST (14-35) U/L ALT (10-49) U/L Total Protein (6.2-8.2) g/dL Albumin (3.8-4.9) g/dL Albumin/Globulin Ratio (1.60-3.17) g/dL Microbiology - Last 24 Hours (Table) 02/14/22 00:15 Blood Culture Gram Stain - Final Blood Blood Culture - Final Bacillus species Not Anthracis 02/16/22 15:50 Gram Stain - Preliminary Foot - Right Wound Culture - Preliminary Group D Enterococcus 02/14/22 00:01 Blood Culture - Preliminary Blood No Growth after 96 hours 02/16/22 15:50 Anaerobic Culture - Preliminary Foot - Right Assessment and Plan (1) Osteomyelitis Current Visit: Yes Status: Acute Code(s): M86.9 - OSTEOMYELITIS, UNSPECIFIED SNOMED Code(s): 11556168 Plan: 1patient with a right diabetic foot infection with a nonhealing wound on the plantar aspect of the right foot and concern for underlying osteomyelitis patient did have a streptococcal bacteremia and culture positive from right foot with the same pathogen and the patient has been receiving outpatient Rocephin and oral Flagyl 2 the patient is scheduled for surgical debridement and deep culture completed on 02/16/2022 with a culture is currently growing enterococcus with sensitivities pending 3-patient to continue with Unasyn while waiting for deep cultures to be finalize to determine his discharge antibiotics, discussed with the admitting team Time with Patient: Less than 30
[2022-02-19] MEDS: PANTOPRAZOLE 40 MG TABLET PO SCH ×2 (05:04→18:15)
[2022-02-19] MEDS: AMPICILLIN-SULBACTAM 3 GM in SODIUM CHLORIDE 0.9% 100 ML IVPB SCH ×3 (05:04→18:14)
[2022-02-19 05:09] LABS: Glucose,Whole Blood 292 mg/dL (70-110)
[2022-02-19] MEDS: INSULIN ASPART (NovoLOG) 100 UNIT/ML VIAL SQ SCH ×4 (06:11→21:32)
[2022-02-19] MEDS: ENOXAPARIN 40 MG/0.4 ML SYRINGE SQ SCH (08:31)
[2022-02-19] MEDS: ATORVASTATIN 20 MG TAB PO SCH (08:32)
[2022-02-19] MEDS: PHENYTOIN SODIUM EXTENDED 100 MG CAP PO SCH ×2 (08:32→21:31)
[2022-02-19] MEDS: INSULIN DETEMIR (LEVEMIR) 100 UNIT/ML SYR SQ SCH (08:32)
[2022-02-19] MEDS: PIOGLITAZONE 15 MG TAB PO SCH (08:32)
[2022-02-19 12:08] LABS: Glucose,Whole Blood 66 mg/dL (70-110)
[2022-02-19 12:24] LABS: Glucose,Whole Blood 71 mg/dL (70-110)
--- NOTE | 2022-02-19 12:44 | P.PN ---
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 Patient was recently treated at [facility] with IV antibiotics. At that time basilar surgery was recommending amputation of foot but patient declined. Patient reports he has been receiving his IV antibiotic infusion. Additional medical history includes diabetes mellitus type 2 with poor control, chronic lower extremity infection, seizure disorder, hyperlipidemia and anemia. Foot x-ray completed showing the structure changes in the big toe and the first metatarsal head consistent with osteomyelitis and appears new compared to old exam. Patient was started on IV vancomycin. Infectious disease service is consulted. We'll also consult vascular surgeon per patient's choice. Blood culture and repeat labs ordered. Repeat labs temp 90.3, heart rate 100, respiratory rate 20, blood pressure 146/74 with possible some 100% on room air On 02/15/2022 Patient was seen and examined on the medical floor he is alert and oriented 3 in no apparent distress there is no fever or chills no headache or dizziness no chest pain no shortness of breath no cough no nausea or vomiting no abdominal pain no diarrhea and no urinary symptoms, patient is complaining of discomfort in his right foot but no severe pain. On 02/16/2022 patient was seen and examined on the medical floor he is alert and oriented 3 in no apparent distress, he is complaining of some discomfort in his foot otherwise he denies any complaints there is no fever or chills no headache or dizziness no chest pain no shortness of breath no cough, there is no nausea or vomiting no abdominal pain no diarrhea no blood in the stools no burning with urination no frequency or urgency and no hematuria On 02/17/2022 patient was seen and examined on the medical floor he is alert and oriented 3 in no apparent distress there is no fever or chills no headache or dizziness no chest pain no shortness of breath no cough no nausea or vomiting no abdominal pain no diarrhea and no urinary symptoms, he is still complaining of some pain in the right foot otherwise he denies any complaints, he underwent right foot wound debridement with callus excision yesterday, he was advised to have right big toe amputation however he refused. He is maintained on IV antibiotics Unasyn, he is followed by infectious disease, we are awaiting further recommendation for antibiotic management. On 02/18/2022 patient was seen and examined on the medical floor he is alert and oriented in no apparent distress he is complaining of pain in his foot otherwise he denies any complaints at this time patient is followed by infectious disease we are awaiting for culture results to decide on antibiotic management possible discharge in the next 1-2 days, patient may need to go to a halfway if IV antibiotics are recommended. On 02/19/2022 patient is alert and oriented 3.. Awaiting final wound culture per microbiology results should be finalized by tomorrow on on IV antibiotics at this time. Patient denies chest pain or shortness breath. Patient denies nausea vomiting or diarrhea. Patient denies any urinary burning or frequency Objective - Vital Signs Vital signs: Vital Signs Temp 98.7 F 02/19/22 07:25 Pulse 102 H 02/19/22 08:00 Resp 16 02/19/22 08:00 BP 156/84 02/19/22 07:25 Pulse Ox 96 02/19/22 07:25 FiO2 Intake & Output 02/18/22 02/19/22 02/19/22 18:59 06:59 18:59 Intake Total 720 Balance 720 Intake: Oral 720 Other: Voiding Method Toilet Toilet # Voids 4 2 # Bowel Movements 1 - Exam In general patient is alert and oriented x 3 in no distress HEENT head normocephalic and atraumatic Neck is supple no JVD no goiter no lymphadenopathy no carotid bruit Chest examination is clear to auscultation no crackles no wheezing Cardiac exam reveals regular heart sounds S1 and S2 no gallops no murmurs Abdomen is soft nontender no organomegaly with normal bowel sounds Extremity exam no edema. Open ulcer noted to plantar surface of the right foot Neurological examination reveals no gross focal deficits - Labs CBC & Chem 7: 02/18/22 05:04 02/18/22 10:46 Labs: Abnormal Lab Results - Last 24 Hours (Table) 02/18/22 02/18/22 02/18/22 Range/Units 10:46 17:34 20:42 Anion Gap 8.90 L (10.00-18.00) mmol/L Glucose 193 H (70-110) mg/dL POC Glucose (mg/dL) 112 H 142 H (70-110) mg/dL Calcium 8.4 L (8.7-10.3) mg/dL 02/19/22 02/19/22 Range/Units 05:07 12:07 Anion Gap (10.00-18.00) mmol/L Glucose (70-110) mg/dL POC Glucose (mg/dL) 292 H 66 L (70-110) mg/dL Calcium (8.7-10.3) mg/dL Microbiology - Last 24 Hours (Table) 02/16/22 15:50 Gram Stain - Preliminary Foot - Right Wound Culture - Preliminary Group D Enterococcus 02/14/22 00:01 Blood Culture - Preliminary Blood No Growth after 120 hours 02/14/22 00:15 Blood Culture Gram Stain - Final Blood Blood Culture - Final Bacillus species Not Anthracis Assessment and Plan Assessment: Right foot wound with concerns of osteomyelitis Underlying history of insulin-dependent diabetes mellitus Underlying history of chronic lower extremity infection was open ulcers followed at the wound care clinic Underlying history of seizure disorder maintained on Dilantin Underlying history of hyperlipidemia Anemia, will check iron level and vitamin B12 and folate level GI prophylaxis Lovenox. GI prophylaxis Protonix Infectious disease and vascular surgery consulted Continue with IV vancomycin Blood culture and repeat labs ordered
--- NOTE | 2022-02-19 15:18 | CDI ---
Documentation Clarification Form Date: 02/19/2022 03:05:33 PM From: Kelly Dudley CCS, CCDS Admit Date: 02/14/2022 02:52:00 AM Patient Name: Pietro Ryder Visit Number: [id number] Discharge Date: ATTENTION: The Clinical Documentation Specialists (CDI) and [facility] Coding Staff appreciate your assistance in clarifying documentation. Please respond to the clarification below the line at the bottom and electronically sign. The CDI & [facility] Coding staff will review the response and follow-up if needed. Please note: Queries are made part of the Legal Health Record. If you have any questions, please contact the author of this message via ITS. Dr. Helen hCen: Unspecified Anemia is documented in the 02/14 History & Physical under the Assessment and also in subsequent Progress Notes throughout the record. Per the 02/16 Attending Progress Note: Anemia, will check iron level and Vit B12 and Folate level. Additional specificity regarding the Type & Acuity of Anemia is requested. History/Risk Factors per the 02/14 H/P: IDDM I with poor control, Bilateral Neuropathy, Chronic lower extremity infections, Seizure Disorder, Hyperlipidemia, Anemia, GERD, Osteoarthritis, MRSA left leg 12/2019. Clinical indicators: Presented to the ED on 02/13 with Diabetic right foot wound and increased drainage, sent by Junior Sales Assistant. Admit with Osteomyelitis nos. 02/13 VS: T 98.3, P 100, R 20, BP 168/76, PO 97 RA, BMI 19.8. Hemoglobin 02/14: 8.4. 02/15: 8.6. 02/16: 8.6. 02/17: 7.9. 02/18: 8.0. Hematocrit 02/14: 28.1. 02/15: 28.9. 02/16: 28.3. 02/17: 26.9. 02/18: 26.8. 02/15 Iron Studies: Iron 16, TIBC 308, % Saturation 5.26, Transferrin 220.0. Folate 4.20. Vit B12 272.0. Treatment 02/13: Hypoglycemia Protocol, Consults to Infectious Disease and Vascular Surgery, Blood cultures, IV Na Chl 1,000 mls @ 999 mls/hr q1H, IV Rocephin 2,000 mg x1, IV Na Chl 1,000 mls @ 50 mls/hr q20H, IV Vancomycin 250 mls @ 125 mls/hr x1 02/14: IV Dextrose 25 ml per protocol/prn - 50 ml Please clarify the type and acuity of Anemia: [ ] Chronic blood loss anemia [ ] Iron deficiency anemia [ ] Hemolytic anemia [ ] Drug induced anemia [ ] Nutritional anemia [ xxx ] Anemia of chronic disease [ ] Unable to determine [ ] Other, please specify (Template Last Revised: April 2020) MTDD
[2022-02-19 17:17] LABS: Glucose,Whole Blood 114 mg/dL (70-110)
[2022-02-19] MEDS: SODIUM CHLORIDE 0.9% 1,000 ML IV SCH (18:15)
[2022-02-19 20:37] LABS: Glucose,Whole Blood 173 mg/dL (70-110)
[2022-02-19] MEDS: LATANOPROST 0.005% OPHTH DROPS 2.5 ML BTL BOTH EYES SCH (21:32)
[2022-02-20] MEDS: AMPICILLIN-SULBACTAM 3 GM in SODIUM CHLORIDE 0.9% 100 ML IVPB SCH ×4 (00:13→17:28)
--- NOTE | 2022-02-20 05:12 | PN ---
PROGRESS NOTE The patient has an infected callus of right foot, plantar aspect. We did the debridement of the callus and excision of the callus with debridement of the devitalized tissue. The patient is on IV antibiotic. Today, we have changed the dressing. We will continue with using excess silver and also, the patient has a left ankle wound, which is granulating. We will use excess silver on the left ankle too. The dressing should be changed every other day. MMODL / IJN: [id number] /
[2022-02-20] MEDS: PANTOPRAZOLE 40 MG TABLET PO SCH ×2 (05:23→17:27)
[2022-02-20 06:35] LABS: Glucose,Whole Blood 373 mg/dL (70-110)
[2022-02-20] MEDS: INSULIN ASPART (NovoLOG) 100 UNIT/ML VIAL SQ SCH ×5 (06:38→21:39)
[2022-02-20] MEDS: ATORVASTATIN 20 MG TAB PO SCH (08:39)
[2022-02-20] MEDS: PIOGLITAZONE 15 MG TAB PO SCH (08:39)
[2022-02-20] MEDS: ENOXAPARIN 40 MG/0.4 ML SYRINGE SQ SCH (08:39)
[2022-02-20] MEDS: PHENYTOIN SODIUM EXTENDED 100 MG CAP PO SCH ×2 (08:39→20:55)
[2022-02-20] MEDS: INSULIN DETEMIR (LEVEMIR) 100 UNIT/ML SYR SQ SCH (08:39)
[2022-02-20 12:07] LABS: Glucose,Whole Blood 240 mg/dL (70-110)
--- NOTE | 2022-02-20 12:43 | P.PN ---
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 Patient was recently treated at [facility] with IV antibiotics. At that time basilar surgery was recommending amputation of foot but patient declined. Patient reports he has been receiving his IV antibiotic infusion. Additional medical history includes diabetes mellitus type 2 with poor control, chronic lower extremity infection, seizure disorder, hyperlipidemia and anemia. Foot x-ray completed showing the structure changes in the big toe and the first metatarsal head consistent with osteomyelitis and appears new compared to old exam. Patient was started on IV vancomycin. Infectious disease service is consulted. We'll also consult vascular surgeon per patient's choice. Blood culture and repeat labs ordered. Repeat labs temp 90.3, heart rate 100, respiratory rate 20, blood pressure 146/74 with possible some 100% on room air On 02/15/2022 Patient was seen and examined on the medical floor he is alert and oriented 3 in no apparent distress there is no fever or chills no headache or dizziness no chest pain no shortness of breath no cough no nausea or vomiting no abdominal pain no diarrhea and no urinary symptoms, patient is complaining of discomfort in his right foot but no severe pain. On 02/16/2022 patient was seen and examined on the medical floor he is alert and oriented 3 in no apparent distress, he is complaining of some discomfort in his foot otherwise he denies any complaints there is no fever or chills no headache or dizziness no chest pain no shortness of breath no cough, there is no nausea or vomiting no abdominal pain no diarrhea no blood in the stools no burning with urination no frequency or urgency and no hematuria On 02/17/2022 patient was seen and examined on the medical floor he is alert and oriented 3 in no apparent distress there is no fever or chills no headache or dizziness no chest pain no shortness of breath no cough no nausea or vomiting no abdominal pain no diarrhea and no urinary symptoms, he is still complaining of some pain in the right foot otherwise he denies any complaints, he underwent right foot wound debridement with callus excision yesterday, he was advised to have right big toe amputation however he refused. He is maintained on IV antibiotics Unasyn, he is followed by infectious disease, we are awaiting further recommendation for antibiotic management. On 02/18/2022 patient was seen and examined on the medical floor he is alert and oriented in no apparent distress he is complaining of pain in his foot otherwise he denies any complaints at this time patient is followed by infectious disease we are awaiting for culture results to decide on antibiotic management possible discharge in the next 1-2 days, patient may need to go to a [facility] if IV antibiotics are recommended. On 02/19/2022 patient is alert and oriented 3.. Awaiting final wound culture per microbiology results should be finalized by tomorrow on on IV antibiotics at this time. Patient denies chest pain or shortness breath. Patient denies nausea vomiting or diarrhea. Patient denies any urinary burning or frequency On 02/20/2022 patient was seen and examined on the medical floor he is alert and oriented 3 in no apparent distress he denies any complaints at this time there is no fever or chills no headache or dizziness no chest pain no shortness of breath no cough no nausea or vomiting no abdominal pain no diarrhea and no urinary symptoms. Patient is still complaining of mild pain in his foot, we are at this time awaiting final culture results and recommendation oral antibiotics on discharge by infectious disease. Objective - Vital Signs Vital signs: Vital Signs Temp 97.9 F 02/20/22 08:00 Pulse 95 02/20/22 08:00 Resp 16 02/20/22 08:00 BP 155/78 02/20/22 08:00 Pulse Ox 94 L 02/20/22 08:00 FiO2 Intake & Output 02/19/22 02/20/22 02/20/22 18:59 06:59 18:59 Intake Total 480 240 Balance 480 240 Intake: Oral 480 240 Other: Voiding Method Toilet Toilet Toilet # Voids 4 1 0 # Bowel Movements 2 - Exam In general patient is alert and oriented x 3 in no distress HEENT head normocephalic and atraumatic Neck is supple no JVD no goiter no lymphadenopathy no carotid bruit Chest examination is clear to auscultation no crackles no wheezing Cardiac exam reveals regular heart sounds S1 and S2 no gallops no murmurs Abdomen is soft nontender no organomegaly with normal bowel sounds Extremity exam no edema. Open ulcer noted to plantar surface of the right foot Neurological examination reveals no gross focal deficits - Labs CBC & Chem 7: 02/18/22 05:04 02/18/22 10:46 Labs: Abnormal Lab Results - Last 24 Hours (Table) 02/19/22 02/19/22 02/20/22 Range/Units 17:15 20:35 06:34 POC Glucose (mg/dL) 114 H 173 H 373 H (70-110) mg/dL 02/20/22 Range/Units 11:48 POC Glucose (mg/dL) 240 H (70-110) mg/dL Microbiology - Last 24 Hours (Table) 02/14/22 00:01 Blood Culture - Final Blood No Growth after 144 hours 02/16/22 15:50 Anaerobic Culture - Preliminary Foot - Right 02/16/22 15:50 Gram Stain - Preliminary Foot - Right Wound Culture - Preliminary Group D Enterococcus Assessment and Plan Assessment: Right foot wound with concerns of osteomyelitis Underlying history of insulin-dependent diabetes mellitus Underlying history of chronic lower extremity infection was open ulcers followed at the wound care clinic Underlying history of seizure disorder maintained on Dilantin Underlying history of hyperlipidemia Anemia, will check iron level and vitamin B12 and folate level GI prophylaxis Lovenox. GI prophylaxis Protonix Infectious disease and vascular surgery consulted Continue with IV vancomycin Blood culture and repeat labs ordered
[2022-02-20] MEDS: SODIUM CHLORIDE 0.9% 1,000 ML IV SCH (16:40)
--- NOTE | 2022-02-20 16:58 | P.PN ---
Subjective Progress Note Date: 02/19/22 Principal diagnosis: Right foot osteomyelitis Patient is a 61-year-old male with a past medical history significant for diabetes mellitus recent admission at [facility] patient did have streptococcal bacteremia and evidence of right foot infected callus and concerning for underlying osteomyelitis patient refused surgery at that point and was discharged on IV Rocephin and Flagyl subsequently admitted back to the hospital per advice of his tool rental technician, with the x-ray completed did shows destructive changes to the big toe and first metatarsal head consistent with osteomyelitis. Patient has been reevaluated by vascular surgery and apparently the patient has agreed for surgical debridement of his right foot wound completed on 02/16/2022 On today's evaluation that is 02/19/2022, the patient remains to be afebrile, patient is breathing comfortably on room air, the patient denies any chest pain shortness of breath or cough no nausea no vomiting no abdominal pain and pain to the right foot has decreased in intensity Objective - Vital Signs Vital signs: Vital Signs Temp 98.7 F 02/19/22 07:25 Pulse 102 H 02/19/22 08:00 Resp 16 02/19/22 08:00 BP 156/84 02/19/22 07:25 Pulse Ox 96 02/19/22 07:25 FiO2 Intake & Output 02/18/22 02/19/22 02/19/22 18:59 06:59 18:59 Intake Total 720 Balance 720 Intake: Oral 720 Other: Voiding Method Toilet Toilet # Voids 4 2 # Bowel Movements 1 - Exam GENERAL DESCRIPTION: Middle-aged male lying in bed in no distress RESPIRATORY SYSTEM: Unlabored breathing , decreased breath sounds at bases HEART: S1 S2 regular rate and rhythm , ABDOMEN: Soft , no tenderness EXTREMITIES: Right foot is currently dressed minimal drainage on the dressing - Labs CBC & Chem 7: 02/18/22 05:04 02/18/22 10:46 Labs: Abnormal Lab Results - Last 24 Hours (Table) 02/18/22 02/18/22 02/18/22 Range/Units 10:46 17:34 20:42 Anion Gap 8.90 L (10.00-18.00) mmol/L Glucose 193 H (70-110) mg/dL POC Glucose (mg/dL) 112 H 142 H (70-110) mg/dL Calcium 8.4 L (8.7-10.3) mg/dL 02/19/22 02/19/22 Range/Units 05:07 12:07 Anion Gap (10.00-18.00) mmol/L Glucose (70-110) mg/dL POC Glucose (mg/dL) 292 H 66 L (70-110) mg/dL Calcium (8.7-10.3) mg/dL Microbiology - Last 24 Hours (Table) 02/16/22 15:50 Gram Stain - Preliminary Foot - Right Wound Culture - Preliminary Group D Enterococcus 02/14/22 00:01 Blood Culture - Preliminary Blood No Growth after 120 hours 02/14/22 00:15 Blood Culture Gram Stain - Final Blood Blood Culture - Final Bacillus species Not Anthracis Assessment and Plan (1) Osteomyelitis Current Visit: Yes Status: Acute Code(s): M86.9 - OSTEOMYELITIS, UNSPECIFIED SNOMED Code(s): 51228813 Plan: 1patient with a right diabetic foot infection with a nonhealing wound on the plantar aspect of the right foot and concern for underlying osteomyelitis patient did have a streptococcal bacteremia and culture positive from right foot with the same pathogen and the patient has been receiving outpatient Rocephin and oral Flagyl 2 the patient is scheduled for surgical debridement and deep culture completed on 02/16/2022 with a culture is currently growing enterococcus with sensitivities pending 3-patient seemed to have her clinical improvement and was continue with Unasyn while waiting for deep cultures to be finalize to determine his discharge antibiotics, Time with Patient: Less than 30
--- NOTE | 2022-02-20 16:59 | P.PN ---
Subjective Progress Note Date: 02/20/22 Principal diagnosis: Right foot osteomyelitis Patient is a 61-year-old male with a past medical history significant for diabetes mellitus recent admission at [facility] patient did have streptococcal bacteremia and evidence of right foot infected callus and concerning for underlying osteomyelitis patient refused surgery at that point and was discharged on IV Rocephin and Flagyl subsequently admitted back to the hospital per advice of his web editor, with the x-ray completed did shows destructive changes to the big toe and first metatarsal head consistent with osteomyelitis. Patient has been reevaluated by vascular surgery and apparently the patient has agreed for surgical debridement of his right foot wound completed on 02/16/2022 On today's evaluation that is 02/20/2022, the patient denies any fever or any chills, patient is breathing comfortably on room air, the patient denies any chest pain shortness of breath or cough no nausea no vomiting no abdominal pain and pain to the right foot has decreased in intensity, overall feeling better Objective - Vital Signs Vital signs: Vital Signs Temp 97.9 F 02/20/22 13:52 Pulse 84 02/20/22 13:52 Resp 18 02/20/22 13:52 BP 165/72 02/20/22 13:52 Pulse Ox 96 02/20/22 13:52 FiO2 Intake & Output 02/19/22 02/20/22 02/20/22 18:59 06:59 18:59 Intake Total 480 480 Balance 480 480 Intake: Oral 480 480 Other: Voiding Method Toilet Toilet Toilet # Voids 4 1 0 # Bowel Movements 2 - Exam GENERAL DESCRIPTION: Middle-aged male lying in bed in no distress RESPIRATORY SYSTEM: Unlabored breathing , decreased breath sounds at bases HEART: S1 S2 regular rate and rhythm , ABDOMEN: Soft , no tenderness EXTREMITIES: Right foot is currently dressed minimal drainage on the dressing - Labs CBC & Chem 7: 02/18/22 05:04 02/18/22 10:46 Labs: Abnormal Lab Results - Last 24 Hours (Table) 02/19/22 02/19/22 02/20/22 Range/Units 17:15 20:35 06:34 POC Glucose (mg/dL) 114 H 173 H 373 H (70-110) mg/dL 02/20/22 Range/Units 11:48 POC Glucose (mg/dL) 240 H (70-110) mg/dL Microbiology - Last 24 Hours (Table) 02/16/22 15:50 Gram Stain - Final Foot - Right Wound Culture - Final Enterococcus faecalis 02/14/22 00:01 Blood Culture - Final Blood No Growth after 144 hours 02/16/22 15:50 Anaerobic Culture - Preliminary Foot - Right Assessment and Plan (1) Osteomyelitis Current Visit: Yes Status: Acute Code(s): M86.9 - OSTEOMYELITIS, UNSPECIFIED SNOMED Code(s): 61079192 Plan: 1patient with a right diabetic foot infection with a nonhealing wound on the plantar aspect of the right foot and concern for underlying osteomyelitis patient did have a streptococcal bacteremia and culture positive from right foot with the same pathogen and the patient has been receiving outpatient Rocephin and oral Flagyl 2 the patient is scheduled for surgical debridement and deep culture completed on 02/16/2022 with a culture is currently growing enterococcus sensitivities has been finalized and it is penicillin sensitive 3-patient seemed to have her clinical improvement , we will continue Unasyn however will finish therapy with Invanz 1 g daily to finish a 6 week course of therapy and a close outpatient follow-up Time with Patient: Less than 30
[2022-02-20 17:28] LABS: Glucose,Whole Blood 54 mg/dL (70-110)
[2022-02-20 17:42] LABS: Glucose,Whole Blood 59 mg/dL (70-110)
[2022-02-20 17:42] LABS: Glucose,Whole Blood 62 mg/dL (70-110)
[2022-02-20 17:44] LABS: Glucose,Whole Blood 71 mg/dL (70-110)
[2022-02-20 21:01] LABS: Glucose,Whole Blood 177 mg/dL (70-110)
[2022-02-20] MEDS: LATANOPROST 0.005% OPHTH DROPS 2.5 ML BTL BOTH EYES SCH (21:42)
[2022-02-21] MEDS: AMPICILLIN-SULBACTAM 3 GM in SODIUM CHLORIDE 0.9% 100 ML IVPB SCH ×3 (00:58→11:50)
[2022-02-21 02:32] LABS: Glucose,Whole Blood 205 mg/dL (70-110)
[2022-02-21] MEDS: PANTOPRAZOLE 40 MG TABLET PO SCH (05:34)
[2022-02-21 07:47] LABS: Glucose,Whole Blood 342 mg/dL (70-110)
[2022-02-21] MEDS: INSULIN ASPART (NovoLOG) 100 UNIT/ML VIAL SQ SCH ×2 (08:33→13:21)
[2022-02-21] MEDS: INSULIN DETEMIR (LEVEMIR) 100 UNIT/ML SYR SQ SCH (08:34)
[2022-02-21] MEDS: ENOXAPARIN 40 MG/0.4 ML SYRINGE SQ SCH (08:34)
[2022-02-21] MEDS: ATORVASTATIN 20 MG TAB PO SCH (08:34)
[2022-02-21] MEDS: PIOGLITAZONE 15 MG TAB PO SCH (09:00)
[2022-02-21] MEDS: PHENYTOIN SODIUM EXTENDED 100 MG CAP PO SCH (09:00)
[2022-02-21 09:04] VITALS: RESP 16
--- NOTE | 2022-02-21 10:47 | P.DS ---
Providers Date of admission: 02/14/22 02:52 Expected date of discharge: 02/21/22 Attending physician: Helen Chen Consults: 02/14/22 09:11 Consult Physician Routine Consulting Provider: Tess Moran Consult Reason/Comments: wound, osteomyletis Do you want consulting provider notified?: Yes 02/14/22 10:52 Consult Physician Routine Consulting Provider: Bladimir Guerrier Consult Reason/Comments: Vascular surgery consult established patient Do you want consulting provider notified?: Yes Primary care physician: Helen Chen [facility] Course: Discharge diagnosis Right foot wound with concerns of osteomyelitis Underlying history of insulin-dependent diabetes mellitus Underlying history of chronic lower extremity infection was open ulcers followed at the wound care clinic Underlying history of seizure disorder maintained on Dilantin Underlying history of hyperlipidemia Anemia, will check iron level and vitamin B12 and folate level Hospital course Pietro Ryder, is a 61-year-old male patient well known to [facility] who 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 Patient was recently treated at [facility] with IV antibiotics. At that time basilar surgery was recommending amputation of foot but patient declined. Patient reports he has been receiving his IV antibiotic infusion. Additional medical history includes diabetes mellitus type 2 with poor control, chronic lower extremity infection, seizure disorder, hyperlipidemia and anemia. Foot x-ray completed showing the structure changes in the big toe and the first metatarsal head consistent with osteomyelitis and appears new compared to old exam. Patient was started on IV vancomycin. Infectious disease service is consulted. We'll also consult vascular surgeon per patient's choice. Blood culture and repeat labs ordered. Repeat labs temp 90.3, heart rate 100, respiratory rate 20, blood pressure 146/74 with possible some 100% on room air On 02/15/2022 Patient was seen and examined on the medical floor he is alert and oriented 3 in no apparent distress there is no fever or chills no headache or dizziness no chest pain no shortness of breath no cough no nausea or vomiting no abdominal pain no diarrhea and no urinary symptoms, patient is complaining of discomfort in his right foot but no severe pain. On 02/16/2022 patient was seen and examined on the medical floor he is alert and oriented 3 in no apparent distress, he is complaining of some discomfort in his foot otherwise he denies any complaints there is no fever or chills no headache or dizziness no chest pain no shortness of breath no cough, there is no nausea or vomiting no abdominal pain no diarrhea no blood in the stools no burning with urination no frequency or urgency and no hematuria On 02/17/2022 patient was seen and examined on the medical floor he is alert and oriented 3 in no apparent distress there is no fever or chills no headache or dizziness no chest pain no shortness of breath no cough no nausea or vomiting no abdominal pain no diarrhea and no urinary symptoms, he is still complaining of some pain in the right foot otherwise he denies any complaints, he underwent right foot wound debridement with callus excision yesterday, he was advised to have right big toe amputation however he refused. He is maintained on IV antibiotics Unasyn, he is followed by infectious disease, we are awaiting further recommendation for antibiotic management. On 02/18/2022 patient was seen and examined on the medical floor he is alert and oriented in no apparent distress he is complaining of pain in his foot otherwise he denies any complaints at this time patient is followed by infectious disease we are awaiting for culture results to decide on antibiotic management possible discharge in the next 1-2 days, patient may need to go to a retirement if IV antibiotics are recommended. On 02/19/2022 patient is alert and oriented 3.. Awaiting final wound culture per microbiology results should be finalized by tomorrow on on IV antibiotics at this time. Patient denies chest pain or shortness breath. Patient denies nausea vomiting or diarrhea. Patient denies any urinary burning or frequency On 02/20/2022 patient was seen and examined on the medical floor he is alert and oriented 3 in no apparent distress he denies any complaints at this time there is no fever or chills no headache or dizziness no chest pain no shortness of breath no cough no nausea or vomiting no abdominal pain no diarrhea and no urinary symptoms. Patient is still complaining of mild pain in his foot, we are at this time awaiting final culture results and recommendation oral antibiotics on discharge by infectious disease. On 02/20/2022 patient is alert and oriented 3. Patient is agreeable to subacute rehab at this time discussed case with infectious disease service is patient to be DC'd on Unasyn for 6 weeks. Case management and social work services aware. Patient denies chest pain. Patient denies nausea vomiting or diarrhea. Patient denies any urinary burning or urgency Patient Condition at Discharge: Stable Plan - Discharge Summary New Discharge Prescriptions: New Ampicillin-Sulbactam [Unasyn] 3 gm IVPB Q6HR 42 Days #42 each INSULIN ASPART (NovoLOG) [NovoLOG (formulary)] 0 unit SQ ACHS each Continue Omeprazole 20 mg PO AC-BID Diphenox-Atrop 2.5-0.025 mg [Lomotil] 1 tab PO BID PRN PRN Reason: Loose Stool Rosuvastatin [Crestor] 10 mg PO DAILY Latanoprost/Pf [Latanoprost 0.005% Eye Drop] 1 drop BOTH EYES HS Acetaminophen Tab [Tylenol] 325 mg PO Q6HR PRN PRN Reason: Mild Pain Or Fever > 100.5 Phenytoin Sodium Extended [Dilantin] 200 mg PO BID Ondansetron Odt [Zofran ODT] 4 mg PO Q8HR PRN #12 tab PRN Reason: Nausea Triamcinolone 0.5% Cream [Kenalog 0.5% Cream] 1 applic TOPICAL DAILY PRN PRN Reason: Rash Insulin Glargine,Hum.rec.anlog [Lantus Solostar Pen] 50 units SQ DAILY Pioglitazone [Actos] 15 mg PO DAILY Discontinued Insulin Lispro [Admelog] See Protocol SQ AC-TID Discharge Medication List Omeprazole 20 mg PO AC-BID 06/13/17 [History] Diphenox-Atrop 2.5-0.025 mg [Lomotil] 1 tab PO BID PRN 11/17/19 [History] Rosuvastatin [Crestor] 10 mg PO DAILY 05/15/20 [History] Latanoprost/Pf [Latanoprost 0.005% Eye Drop] 1 drop BOTH EYES HS 06/15/21 [History] Acetaminophen Tab [Tylenol] 325 mg PO Q6HR PRN 07/17/21 [History] Ondansetron Odt [Zofran ODT] 4 mg PO Q8HR PRN #12 tab 07/29/21 [Rx] Triamcinolone 0.5% Cream [Kenalog 0.5% Cream] 1 applic TOPICAL DAILY PRN 11/25/21 [History] Insulin Glargine,Hum.rec.anlog [Lantus Solostar Pen] 50 units SQ DAILY 01/27/22 [History] Phenytoin Sodium Extended [Dilantin] 200 mg PO BID 02/14/22 [History] Pioglitazone [Actos] 15 mg PO DAILY 02/14/22 [History] Ampicillin-Sulbactam [Unasyn] 3 gm IVPB Q6HR 42 Days #42 each 02/21/22 [Rx] INSULIN ASPART (NovoLOG) [NovoLOG (formulary)] 0 unit SQ ACHS each 02/21/22 [Rx] Follow up Appointment(s)/Referral(s): Helen Chen MD [Primary Care Provider] - 1-2 days Activity/Diet/Wound Care/Special Instructions: Activity as tolerated Diet heart healthy Discharge Disposition: TRANSFER TO SNF/ECF
--- NOTE | 2022-02-21 11:45 | P.PN ---
Subjective Progress Note Date: 02/21/22 Principal diagnosis: Right foot osteomyelitis Patient is a 61-year-old male with a past medical history significant for diabetes mellitus recent admission at [facility] patient did have streptococcal bacteremia and evidence of right foot infected callus and concerning for underlying osteomyelitis patient refused surgery at that point and was discharged on IV Rocephin and Flagyl subsequently admitted back to the hospital per advice of his feather trimmer, with the x-ray completed did shows destructive changes to the big toe and first metatarsal head consistent with osteomyelitis. Patient has been reevaluated by vascular surgery and apparently the patient has agreed for surgical debridement of his right foot wound completed on 02/16/2022 On today's evaluation that is 02/21/2022, the patient continues to be afebrile, patient is breathing comfortably on room air, the patient denies any chest pain shortness of breath or cough, the patient denies nausea no vomiting no abdominal pain and pain to the right foot has improved Objective - Vital Signs Vital signs: Vital Signs Temp 98.4 F 02/21/22 08:00 Pulse 106 H 02/21/22 08:00 Resp 16 02/21/22 08:00 BP 148/77 02/21/22 08:00 Pulse Ox 96 02/21/22 03:00 FiO2 Intake & Output 02/20/22 02/21/22 02/21/22 18:59 06:59 18:59 Intake Total 720 538 Balance 720 538 Intake: Oral 720 538 Other: Voiding Method Toilet Toilet # Voids 1 3 - Exam GENERAL DESCRIPTION: Middle-aged male lying in bed in no distress RESPIRATORY SYSTEM: Unlabored breathing , decreased breath sounds at bases HEART: S1 S2 regular rate and rhythm , ABDOMEN: Soft , no tenderness EXTREMITIES: Right foot is currently dressed minimal drainage on the dressing - Labs CBC & Chem 7: 02/18/22 05:04 02/18/22 10:46 Labs: Abnormal Lab Results - Last 24 Hours (Table) 02/20/22 02/20/22 02/20/22 Range/Units 11:48 17:13 17:22 POC Glucose (mg/dL) 240 H 62 L 59 L (70-110) mg/dL 02/20/22 02/20/22 02/21/22 Range/Units 17:25 20:59 02:30 POC Glucose (mg/dL) 54 L 177 H 205 H (70-110) mg/dL 02/21/22 Range/Units 07:46 POC Glucose (mg/dL) 342 H (70-110) mg/dL Microbiology - Last 24 Hours (Table) 02/16/22 15:50 Gram Stain - Final Foot - Right Wound Culture - Final Enterococcus faecalis Assessment and Plan (1) Osteomyelitis Current Visit: Yes Status: Acute Code(s): M86.9 - OSTEOMYELITIS, UNSPECIFIED SNOMED Code(s): 83849309 Plan: 1patient with a right diabetic foot infection with a nonhealing wound on the plantar aspect of the right foot and concern for underlying osteomyelitis patient did have a streptococcal bacteremia and culture positive from right foot with the same pathogen and the patient has been receiving outpatient Rocephin and oral Flagyl 2 the patient is scheduled for surgical debridement and deep culture completed on 02/16/2022 with a culture is currently growing enterococcus sensitivities has been finalized and it is penicillin sensitive 3-patient has shown her clinical improvement , the patient will continue Unasyn to finish a 6 week course of therapy and close outpatient follow-up as the patient is going to the long-term, plan of care was discussed with the admitting team Time with Patient: Less than 30
[2022-02-21] MEDS: SODIUM CHLORIDE 0.9% 1,000 ML IV SCH (11:53)
[2022-02-21 12:29] LABS: Glucose,Whole Blood 209 mg/dL (70-110)
[2022-02-21 15:36] VITALS: BP 151/87; PULSE 99; TEMP 97.4
[2022-02-21 15:54] LABS: Glucose,Whole Blood 58 mg/dL (70-110)
[2022-02-21 16:12] LABS: Glucose,Whole Blood 122 mg/dL (70-110)
[2022-02-21 17:28] LABS: Glucose,Whole Blood 101 mg/dL (70-110)
== END 2022-02-21 17:55 | DRG 623 ==
LOC: EC 16:23 → 5NMEDONC 02-14 02:52 → 6NMEDSUR 02-14 16:20
PROVIDERS: ADMIT Internal Medicine; ATTEND Internal Medicine
PROC: 0JBQ0ZZ Excision of Right Foot Subcutaneous Tissue and Fascia, Open Approach (ICD-10-PCS; principal; 2022-02-16 07:31)
DX: E11.69 Type 2 diabetes mellitus with other specified complication (principal); L03.115 Cellulitis of right lower limb; M86.171 Other acute osteomyelitis, right ankle and foot; E78.5 Hyperlipidemia, unspecified; D63.8 Anemia in other chronic diseases classified elsewhere; F32.A Depression, unspecified; G40.909 Epilepsy, unspecified, not intractable, without status epilepticus; Z79.4 Long term (current) use of insulin; I77.6 Arteritis, unspecified; M17.12 Unilateral primary osteoarthritis, left knee; Z79.84 Long term (current) use of oral hypoglycemic drugs; Z79.899 Other long term (current) drug therapy; Z83.3 Family history of diabetes mellitus; E11.42 Type 2 diabetes mellitus with diabetic polyneuropathy; E11.628 Type 2 diabetes mellitus with other skin complications; B95.2 Enterococcus as the cause of diseases classified elsewhere; Z53.29 Procedure and treatment not carried out because of patient's decision for other reasons; E11.621 Type 2 diabetes mellitus with foot ulcer; L97.519 Non-pressure chronic ulcer of other part of right foot with unspecified severity; Z71.3 Dietary counseling and surveillance; L84 Corns and callosities; Z86.14 Personal history of Methicillin resistant Staphylococcus aureus infection
CPT/HCPCS: 36415; 80048; 80053; 82607; 82746; 83036; 83540; 83550; 83605; 85025; 87040; 87070; 87075; 87077; 87186; 87205; 96365; 96366; 96375; 99285

== ENCOUNTER 2022-03-01 12:28 | Inpatient (IN) | payer OTHER ==
[2022-03-01] MEDS ORDERED: IPRATROPIUM-ALBUTEROL 3 ML NEB INHALATION STA (12:39)
[2022-03-01] MEDS ORDERED: methylPREDNISolone SOD SUCCI 125 MG/2 ML VIAL IV STA (12:39)
--- NOTE | 2022-03-01 12:41 | ED ---
General Adult HPI - General Chief complaint: Shortness of Breath Stated complaint: SOB Time Seen by Provider: 03/01/22 12:29 Source: patient, EMS, RN notes reviewed Mode of arrival: EMS Limitations: no limitations - History of Present Illness Initial comments: Patient is a pleasant [age]-year-old male presenting to the emergency department with concerns with difficulty in breathing. Symptoms have progressed over the past several days. Patient has occasional nonproductive cough. No congestion. No fever. No history of similar symptoms previously. No leg pain or leg swelling. No tobacco history. Patient does have PICC line secondary to right leg ulcer. Patient states this has been healing. - Related Data Home Medications Medication Instructions Recorded Confirmed Omeprazole 20 mg PO AC-BID 06/13/17 02/14/22 Diphenox-Atrop 2.5-0.025 mg 1 tab PO BID PRN 11/17/19 02/14/22 [Lomotil] Rosuvastatin [Crestor] 10 mg PO DAILY 05/15/20 02/14/22 Latanoprost/Pf [Latanoprost 0.005% 1 drop BOTH EYES HS 06/15/21 02/14/22 Eye Drop] Acetaminophen Tab [Tylenol] 325 mg PO Q6HR PRN 07/17/21 02/14/22 Triamcinolone 0.5% Cream [Kenalog 1 applic TOPICAL DAILY PRN 11/25/21 02/14/22 0.5% Cream] Insulin Glargine,Hum.rec.anlog 50 units SQ DAILY 01/27/22 02/14/22 [Lantus Solostar Pen] Phenytoin Sodium Extended 200 mg PO BID 02/14/22 02/14/22 [Dilantin] Pioglitazone [Actos] 15 mg PO DAILY 02/14/22 02/14/22 Previous Rx's Medication Instructions Recorded Ondansetron Odt [Zofran ODT] 4 mg PO Q8HR PRN #12 tab 07/29/21 Ampicillin-Sulbactam [Unasyn] 3 gm IVPB Q6HR 42 Days #42 each 02/21/22 INSULIN ASPART (NovoLOG) [NovoLOG 0 unit SQ ACHS each 02/21/22 (formulary)] Allergies Allergy/AdvReac Type Severity Reaction Status Date / Time No Known Allergies Allergy Verified 12/09/22 07:05 Review of Systems ROS Statement: Those systems with pertinent positive or pertinent negative responses have been documented in the HPI. ROS Other: All systems not noted in ROS Statement are negative. Constitutional: Denies: fever Eyes: Denies: eye pain ENT: Denies: ear pain, congestion Respiratory: Reports: as per HPI, cough, dyspnea Cardiovascular: Denies: chest pain Endocrine: Reports: fatigue Gastrointestinal: Denies: abdominal pain Genitourinary: Denies: dysuria Musculoskeletal: Denies: back pain Skin: Reports: as per HPI Neurological: Denies: weakness Past Medical History Past Medical History: Diabetes Mellitus, Diabetes Mellitus, GERD/Reflux, Hyperlipidemia, Osteoarthritis (OA), Seizure Disorder Additional Past Medical History / Comment(s): IDDM type 1 per pt, bilateral feet neuropathy, pt states current wounds to bilateral feet/goes to [facility]/seen by Dr. Major (vamp wetter), past L lower extremity cellulitis with sepsis, L wrist cancerous tumor removed, past seizure about a year ago, arthritis L knee, vertigo, occasional diarrhea. History of Any Multi-Drug Resistant Organisms: MRSA Date of last positivie culture/infection: 12/29/19 MDRO Source:: Left Leg Past Surgical History: Orthopedic Surgery, Tonsillectomy Additional Past Surgical History / Comment(s): 01/23/20 angiogram L leg, 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, colonoscopy, L eye surgery for strabis mus. Past Anesthesia/Blood Transfusion Reactions: No Reported Reaction Past Psychological History: Depression Smoking Status: Never smoker Past Alcohol Use History: None Reported Past Drug Use History: None Reported - Past Family History Father Family Medical History: Myocardial Infarction (MA) Additional Family Medical History / Comment(s): Father of a MA at the age of 57yrs. Mother Family Medical History: Cancer Additional Family Medical History / Comment(s): Mother from cancer at the age of 61 or 62 . Pt cannot recall type of cancer. Sister(s) Family Medical History: Diabetes Mellitus Additional Family Medical History / Comment(s): Sister had DM type 1. She is . General Exam Limitations: no limitations General appearance: alert, in no apparent distress Head exam: Present: normocephalic Eye exam: Present: normal appearance Neck exam: Present: normal inspection Respiratory exam: Present: wheezes Cardiovascular Exam: Present: tachycardia GI/Abdominal exam: Present: soft. Absent: tenderness Extremities exam: Absent: pedal edema, calf tenderness Neurological exam: Present: alert Psychiatric exam: Present: normal affect, normal mood Skin exam: Present: other (Right lower leg anterior/lateral ulcer approximately 1 x 2 cm, stage II without surrounding erythema.) Course Vital Signs 03/01/22 03/01/22 03/01/22 12:31 12:35 13:48 Temperature 98.7 F Pulse Rate 119 H 120 H Respiratory 18 20 Rate Blood Pressure 190/101 O2 Sat by Pulse 95 Oximetry 03/01/22 03/01/22 13:57 14:14 Temperature Pulse Rate 125 H 117 H Respiratory 20 Rate Blood Pressure 189/105 O2 Sat by Pulse 98 Oximetry - Reevaluation(s) Reevaluation #1: 03/01/22 14:05 Case was discussed with Dr. Cunningham who did evaluate patient in the emergency department and will consider thoracentesis. 03/01/22 14:36 There is concern for sepsis diagnosed at 1400. Blood culture and lactic acid and IV antibiotics have all been ordered. EKG Findings - EKG Results: EKG: interpreted by ERMD, sinus rhythm, normal axis, normal QRS, normal ST/T EKG shows: tachycardia Medical Decision Making - Medical Decision Making Patient reevaluated and updated. Dr. Ca has been paged for admission, covering for Dr. Chen. Case was discussed with Dr. Alfaro, who will admit. - Lab Data Result diagrams: 03/01/22 12:49 03/01/22 12:49 Lab Results 03/01/22 03/01/22 03/01/22 Range/Units 12:30 12:49 12:49 WBC 13.3 H (3.8-10.6) k/uL RBC 3.90 L (4.30-5.90) m/uL Hgb 9.6 L (13.0-17.5) gm/dL Hct 31.3 L (39.0-53.0) % MCV 80.2 (80.0-100.0) fL MCH 24.5 L (25.0-35.0) pg MCHC 30.6 L (31.0-37.0) g/dL RDW 18.5 H (11.5-15.5) % Plt Count 505 H (150-450) k/uL MPV 7.8 Neutrophils % 90 % Lymphocytes % 4 % Monocytes % 4 % Eosinophils % 1 % Basophils % 0 % Neutrophils # 12.0 H (1.3-7.7) k/uL Lymphocytes # 0.6 L (1.0-4.8) k/uL Monocytes # 0.5 (0-1.0) k/uL Eosinophils # 0.1 (0-0.7) k/uL Basophils # 0.1 (0-0.2) k/uL Hypochromasia Marked Anisocytosis Slight Microcytosis Slight PT 9.5 (9.0-12.0) sec INR 0.9 (<1.2) APTT 27.6 (22.0-30.0) sec D-Dimer 1.15 H (<0.60) mg/L FEU Sodium (137-145) mmol/L Potassium (3.5-5.1) mmol/L Chloride (98-107) mmol/L Carbon Dioxide (22-30) mmol/L Anion Gap mmol/L BUN (9-20) mg/dL Creatinine (0.66-1.25) mg/dL Est GFR (CKD-EPI)AfAm (>60 ml/min/1.73 sqM) Est GFR (CKD-EPI)NonAf (>60 ml/min/1.73 sqM) Glucose (74-99) mg/dL Plasma Lactic Acid Michael (0.7-2.0) mmol/L Calcium (8.4-10.2) mg/dL Total Bilirubin (0.2-1.3) mg/dL AST (17-59) U/L ALT (4-49) U/L Alkaline Phosphatase (38-126) U/L Troponin I (0.000-0.034) ng/mL NT-Pro-B Natriuret Pep pg/mL Total Protein (6.3-8.2) g/dL Albumin (3.5-5.0) g/dL Influenza Type A (PCR) Not Detected (Not Detectd) Influenza Type B (PCR) Not Detected (Not Detectd) RSV (PCR) Not Detected (Not Detectd) SARS-CoV-2 (PCR) Not Detected (Not Detectd) 03/01/22 03/01/22 03/01/22 Range/Units 12:49 12:49 12:49 WBC (3.8-10.6) k/uL RBC (4.30-5.90) m/uL Hgb (13.0-17.5) gm/dL Hct (39.0-53.0) % MCV (80.0-100.0) fL MCH (25.0-35.0) pg MCHC (31.0-37.0) g/dL RDW (11.5-15.5) % Plt Count (150-450) k/uL MPV Neutrophils % % Lymphocytes % % Monocytes % % Eosinophils % % Basophils % % Neutrophils # (1.3-7.7) k/uL Lymphocytes # (1.0-4.8) k/uL Monocytes # (0-1.0) k/uL Eosinophils # (0-0.7) k/uL Basophils # (0-0.2) k/uL Hypochromasia Anisocytosis Microcytosis PT (9.0-12.0) sec INR (<1.2) APTT (22.0-30.0) sec D-Dimer (<0.60) mg/L FEU Sodium 134 L (137-145) mmol/L Potassium 4.5 (3.5-5.1) mmol/L Chloride 101 (98-107) mmol/L Carbon Dioxide 27 (22-30) mmol/L Anion Gap 6 mmol/L BUN 18 (9-20) mg/dL Creatinine 0.66 (0.66-1.25) mg/dL Est GFR (CKD-EPI)AfAm >90 (>60 ml/min/1.73 sqM) Est GFR (CKD-EPI)NonAf >90 (>60 ml/min/1.73 sqM) Glucose 312 H (74-99) mg/dL Plasma Lactic Acid Michael 1.2 (0.7-2.0) mmol/L Calcium 8.2 L (8.4-10.2) mg/dL Total Bilirubin <0.1 L (0.2-1.3) mg/dL AST 22 (17-59) U/L ALT 23 (4-49) U/L Alkaline Phosphatase 209 H (38-126) U/L Troponin I <0.012 (0.000-0.034) ng/mL NT-Pro-B Natriuret Pep pg/mL Total Protein 6.7 (6.3-8.2) g/dL Albumin 3.3 L (3.5-5.0) g/dL Influenza Type A (PCR) (Not Detectd) Influenza Type B (PCR) (Not Detectd) RSV (PCR) (Not Detectd) SARS-CoV-2 (PCR) (Not Detectd) 03/01/22 Range/Units 12:49 WBC (3.8-10.6) k/uL RBC (4.30-5.90) m/uL Hgb (13.0-17.5) gm/dL Hct (39.0-53.0) % MCV (80.0-100.0) fL MCH (25.0-35.0) pg MCHC (31.0-37.0) g/dL RDW (11.5-15.5) % Plt Count (150-450) k/uL MPV Neutrophils % % Lymphocytes % % Monocytes % % Eosinophils % % Basophils % % Neutrophils # (1.3-7.7) k/uL Lymphocytes # (1.0-4.8) k/uL Monocytes # (0-1.0) k/uL Eosinophils # (0-0.7) k/uL Basophils # (0-0.2) k/uL Hypochromasia Anisocytosis Microcytosis PT (9.0-12.0) sec INR (<1.2) APTT (22.0-30.0) sec D-Dimer (<0.60) mg/L FEU Sodium (137-145) mmol/L Potassium (3.5-5.1) mmol/L Chloride (98-107) mmol/L Carbon Dioxide (22-30) mmol/L Anion Gap mmol/L BUN (9-20) mg/dL Creatinine (0.66-1.25) mg/dL Est GFR (CKD-EPI)AfAm (>60 ml/min/1.73 sqM) Est GFR (CKD-EPI)NonAf (>60 ml/min/1.73 sqM) Glucose (74-99) mg/dL Plasma Lactic Acid Michael (0.7-2.0) mmol/L Calcium (8.4-10.2) mg/dL Total Bilirubin (0.2-1.3) mg/dL AST (17-59) U/L ALT (4-49) U/L Alkaline Phosphatase (38-126) U/L Troponin I (0.000-0.034) ng/mL NT-Pro-B Natriuret Pep 476 pg/mL Total Protein (6.3-8.2) g/dL Albumin (3.5-5.0) g/dL Influenza Type A (PCR) (Not Detectd) Influenza Type B (PCR) (Not Detectd) RSV (PCR) (Not Detectd) SARS-CoV-2 (PCR) (Not Detectd) - Radiology Data Interpreted by me: Chest x-ray shows diffuse interstitial changes, more so on the right side Computed tomography scan chest negative for pulmonary embolism. There is effusions and airspace disease as well as lymph nodes. Critical Care Time Critical Care Time: Yes Total Critical Care Time: 33 Disposition Clinical Impression: Congestive heart failure, Pneumonia, Sepsis Disposition: ADMITTED IP TO THIS HOSP Is patient prescribed a controlled substance at d/c from ED?: No Time of Disposition: 14:09
[2022-03-01 12:58] LABS: Anisocytosis Slight; Basophils # (A) 0.1 k/uL (0-0.2); Basophils % (A) 0 %; Eosinophils # (A) 0.1 k/uL (0-0.7); Eosinophils % (A) 1 %; HCT 31.3 % (39.0-53.0); HGB 9.6 gm/dL (13.0-17.5); Hypochromasia Marked; Lymphocytes # (A) 0.6 k/uL (1.0-4.8); Lymphocytes % (A) 4 %; MCH 24.5 pg (25.0-35.0); MCHC 30.6 g/dL (31.0-37.0); MCV 80.2 fL (80.0-100.0); Mean Platelet Volume 7.8; Microcytosis Slight; Monocytes # (A) 0.5 k/uL (0-1.0); Monocytes % (A) 4 %; Neutrophils % (A) 90 %; Platelet Count 505 k/uL (150-450); RDW 18.5 % (11.5-15.5); WBC 13.3 k/uL (3.8-10.6)
[2022-03-01 13:17] LABS: ALT 23 U/L (4-49); AST 22 U/L (17-59); African American GFR (CKD) >90 (>60 ml/min/1.73 sqM); Albumin 3.3 g/dL (3.5-5.0); Alkaline Phosphatase 209 U/L (38-126); Anion Gap 6 mmol/L; Blood Urea Nitrogen 18 mg/dL (9-20); Calcium 8.2 mg/dL (8.4-10.2); Carbon Dioxide 27 mmol/L (22-30); Chloride 101 mmol/L (98-107); Glucose 312 mg/dL (74-99); Non-African American GFR(CKD) >90 (>60 ml/min/1.73 sqM); Potassium 4.5 mmol/L (3.5-5.1); Sodium 134 mmol/L (137-145); Total Bilirubin <0.1 mg/dL (0.2-1.3); Total Protein 6.7 g/dL (6.3-8.2)
[2022-03-01 13:18] LABS: INR 0.9 (<1.2); Partial Thromboplastin Time 27.6 sec (22.0-30.0); Prothrombin Time 9.5 sec (9.0-12.0)
--- NOTE | 2022-03-01 13:59 | XR ---
EXAMINATION TYPE: XR chest 2V DATE OF EXAM: 03/01/2022 COMPARISON: 01/27/2022 HISTORY: 61 year-old male shortness of breath, difficulty breathing TECHNIQUE: AP and lateral views FINDINGS: The heart size appears larger. New diffuse interstitial density, small to moderate right and small le ft pleural effusions. Perihilar and developing mid and lower lung airspace opacities. Right PICC tip seen to the lower SVC level. IMPRESSION: Correlate for the interval development of CHF with patchy pulmonary edema. Moderate right greater anita n left pleural effusions.
[2022-03-01] MEDS ORDERED: LORazepam 2 MG/ML INJ IV STA (14:04)
[2022-03-01] MEDS ORDERED: IPRATROPIUM-ALBUTEROL 3 ML NEB INHALATION PRN (14:11)
[2022-03-01] MEDS ORDERED: PIPERACILLIN-TAZOBACTAM 3.375 GM in SODIUM CHLORIDE 0.9% 100 ML IVPB STA (14:11)
[2022-03-01] MEDS ORDERED: LIDOCAINE 1% INJ 10MG/ML (30 ML VIAL-PF) SQ ONE (14:11)
[2022-03-01] MEDS ORDERED: PNEUMONIA PROTOCOL UTILIZED 1 EACH MISC PO PRN (14:11)
[2022-03-01] MEDS ORDERED: ASPIRIN 325 MG TAB PO STA (14:11)
--- NOTE | 2022-03-01 14:12 | CT ---
EXAMINATION TYPE: CT angio chest DATE OF EXAM: 03/01/2022 COMPARISON: 01/27/2022 HISTORY: 61-year-old male SOB TECHNIQUE: Contiguous axial scanning of the chest performed with IV Contrast, patient injected with 5 1 mL of Isovue 370. Coronal/sagittal MIP reconstructions performed. CT DLP: 246.7 mGycm Automated exposure control for dose reduction was used. FINDINGS: Compared to the recent 01/27/2022, progression to bilateral axillary and mediastinal lymphadenopathy. AP window node measures up to 2.2 cm versus 1.7 cm, previously. Axillary nodes measure up to 1.6 cm now versus 1.2 cm, previously. Subcarinal node is 2.3 cm and right hilar node 2.3 cm. Given the rapid change, these are likely reactive. Generalized anasarca changes also developed. Heart normal size without pericardial effusion. Aorta normal caliber with conventional arch vessel branching anatomy. Satisfactory opacification the pulmonary artery system. No pulmonary embolus is seen. Moderate right greater than left pleural effusions with corresponding adjacent atelectasis. Correspon ding basilar airspace disease, scattered septal lines, consolidation along the dependent portion of t he right upper lobe and additional surrounding multifocal patchy groundglass changes, right greater t herndon left upper lobes. Segmental collapse medial right middle lobe. Liver appears large. Correlate to exclude hepatitis. Bones: No osseous destructive process. IMPRESSION: 1. NO EVIDENCE FOR PULMONARY EMBOLUS. 2. HOWEVER, THERE HAS BEEN DRAMATIC CHANGE COMPARED TO THE RECENT 01/27/2022 CT. THERE IS NOW MEDIAST INAL, AXILLARY, AND HILAR LYMPHADENOPATHY. GIVEN THE RAPID CHANGE, A REACTIVE OR INFECTIOUS ETIOLOGY IS SUGGESTED. 3. ADDITIONAL CONSTELLATION OF FINDINGS OF MODERATE EFFUSIONS, SEPTAL LINES, PATCHY AND CONFLUENT CHRISTIANO UNDGLASS, AND GENERALIZED ANASARCA CHANGE. CORRELATE FOR FLUID OVERLOAD OR CARDIAC DECOMPENSATION WIT H PULMONARY EDEMA. 4. MORE CONFLUENT AIRSPACE DISEASE BASILAR RIGHT LOWER LOBE AND DEPENDENT RIGHT UPPER LOBE. THIS COUL D REPRESENT PULMONARY EDEMA OR PNEUMONIA. CLINICALLY CORRELATE. 5. THE LIVER APPEARS LARGE NOW. CORRELATE TO EXCLUDE HEPATITIS.
[2022-03-01] MEDS ORDERED: FUROSEMIDE 10 MG/ML 4 ML VIAL IV SCH (14:15)
[2022-03-01] MEDS: NITROGLYCERIN OINT 1 INCH/GM PACKET TOPICAL SCH ×3 (14:34→20:38)
--- NOTE | 2022-03-01 14:56 | XR ---
EXAMINATION TYPE: XR chest 1V portable DATE OF EXAM: 03/01/2022 COMPARISON: Today HISTORY: Right thoracentesis TECHNIQUE: Single view FINDINGS: There is bilateral pulmonary edema. There is slight blunting of the left costophrenic angle . No pneumothorax. There are chest leads. IMPRESSION: There is pulmonary edema and pleural fluid that could relate to heart failure or RDS. The re is decrease in the right pleural fluid compared to exam earlier today. No pneumothorax.
--- NOTE | 2022-03-01 14:57 | P.CNPUL ---
History of Present Illness Consult date: 03/01/22 Requesting physician: Parrish Ca Reason for consult: dyspnea, cough, pleural effusion Chief complaint: shortness of breath and dry cough. History of present illness: this is a 61-year-old white male with history of chronic right foot diabetic foot ulcers, history of peripheral vessel occlusive disease,diabetes, patient is at the [facility] receiving IV antibiotics via PICC line for his right foot diabetic ulcer. Patient presented to the ER today with 1 week history of shortness of breath and cough.describes the cough as nonproductive cough mostly dry cough, denies any fever or chills, denies any chest pain, no hemoptysis, no nausea, no vomiting, no abdominal pain.chest x-ray in the ER showed evidence of bilateral interstitial type of edema, pleural effusions, right more than left pleural effusions noted,perihilar opacities noted especially in the right lungpatient was noted to have a bit of a leukocytosis with WBC count of 13.3 hemoglobin 9.6.d-dimer 1.15BNP level normal. Screening for influenza A, influenza B, RSV, and COVID-19 were all negative. I happened to be in the ER at the time, I evaluated the patient, and I went ahead and performed a right sided thoracentesis with ultrasound guidance, and I was able to get 950 mL of light. Make looking fluid which was sent for different diagnostic studiesin the meantime the patient will be admitted, he'll be placed on antibiotics/Zosyn empirically, and he'll be placed on updrafts. Review of Systems constitutional: Weakness no fever no chills no weight loss. HEENT: Negative Pulmonary: As noted in HPI Hematologic: No clotting bleeding or bruising Psychiatric: No symptoms of depression Endocrine history of diabetes and chronic diabetic foot ulcers Cardiac: Negative GI: Negative genitourinary: Negative Musculoskeletal: Negative skin: Chronic foot ulcers, patient had a PICC line and he is receiving IV antibiotics for his nonhealing diabetic foot ulcer right foot Past Medical History Past Medical History: Diabetes Mellitus, Diabetes Mellitus, GERD/Reflux, Hyperlipidemia, Osteoarthritis (OA), Seizure Disorder Additional Past Medical History / Comment(s): IDDM type 1 per pt, bilateral feet neuropathy, pt states current wounds to bilateral feet/goes to [facility]/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 History of Any Multi-Drug Resistant Organisms: MRSA Date of last positivie culture/infection: 12/29/19 MDRO Source:: Left Leg Past Surgical History: Orthopedic Surgery, Tonsillectomy Additional Past Surgical History / Comment(s): 01/23/20 angiogram L leg, 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, colonoscopy, L eye surgery for strabismus. Past Anesthesia/Blood Transfusion Reactions: No Reported Reaction Past Psychological History: Depression Smoking Status: Never smoker Past Alcohol Use History: None Reported Past Drug Use History: None Reported - Past Family History Father Family Medical History: Myocardial Infarction ([place]) Additional Family Medical History / Comment(s): Father of a [place] at the age of 57yrs. Mother Family Medical History: Cancer Additional Family Medical History / Comment(s): Mother from cancer at the age of 61 or 62 . Pt cannot recall type of cancer. Sister(s) Family Medical History: Diabetes Mellitus Additional Family Medical History / Comment(s): Sister had DM type 1. She is . Medications and Allergies Home Medications Medication Instructions Recorded Confirmed Type Omeprazole 20 mg PO BID@0600,2100 06/13/17 03/01/22 History Diphenox-Atrop 2.5-0.025 mg 1 tab PO BID PRN 11/17/19 03/01/22 History [Lomotil] Latanoprost/Pf [Latanoprost 0.005% 1 drop BOTH EYES HS 06/15/21 03/01/22 History Eye Drop] Acetaminophen Tab [Tylenol] 650 mg PO Q6H PRN 07/17/21 03/01/22 History Insulin Glargine,Hum.rec.anlog 50 units SQ HS 01/27/22 03/01/22 History [Lantus Solostar Pen] Phenytoin Sodium Extended 200 mg PO BID 02/14/22 03/01/22 History [Dilantin] Pioglitazone [Actos] 15 mg PO DAILY 02/14/22 03/01/22 History Ampicillin-Sulbactam [Unasyn] 3 gm IVPB Q6H 03/01/22 03/01/22 History Atorvastatin [Lipitor] 20 mg PO HS 03/01/22 03/01/22 History Glucerna Shake 240 ml PO BID 03/01/22 03/01/22 History Insulin Lispro [humaLOG Kwikpen] See Protocol SQ ACHS 03/01/22 03/01/22 History Ondansetron [Zofran] 4 mg PO Q8H PRN 03/01/22 03/01/22 History Allergies Allergy/AdvReac Type Severity Reaction Status Date / Time No Known Allergies Allergy Verified 02/14/22 07:05 Physical Exam Vitals: Vital Signs Temp Pulse Resp BP Pulse Ox 03/01/22 14:14 117 H 20 189/105 98 03/01/22 13:57 125 H 03/01/22 13:48 120 H 03/01/22 12:35 20 03/01/22 12:31 98.7 F 119 H 18 190/101 95 Intake and Output 02/28/22 03/01/22 03/01/22 22:59 06:59 14:59 Other: Weight 49.895 kg Physical Exam: Revealed 61-year-old white male in no distress onroom air, O2 sats is 98%.patient looks pale and chronically ill. Head: Atraumatic, normocephalic. HEENT:[Neck is supple.] [No neck masses.] [No thyromegaly.] [No JVD.] Chest: [diminished breath sounds and dullness at the bases bilaterally right more so than left, no crackles or rhonchi or wheezes Cardiac Exam: [Normal S1 and S2, no S3 gallop, no murmur.] Abdomen: [Soft, nontender, no megaly, no rebound, no guarding, normal bowel sounds.] Extremities: [No clubbing, no edema, no cyanosis.]right foot is wrapped with sterile dressing, could not visualize the ulcers Neurological Exam: [No focal neurologic deficit.]alert oriented 3. psychiatric: Normal mood, affect and normal mental status examination. Skin ulcers on right foot which could not be examined because of being wrapped with sterile dry Results - Laboratory Findings CBC and BMP: 03/01/22 12:49 03/01/22 12:49 PT/INR, D-dimer PT 9.5 sec (9.0-12.0) 03/01/22 12:49 INR 0.9 (<1.2) 03/01/22 12:49 D-Dimer 1.15 mg/L FEU (<0.60) H 03/01/22 12:49 Abnormal lab findings: Abnormal Labs 03/01/22 03/01/22 03/01/22 12:49 12:49 12:49 WBC 13.3 H RBC 3.90 L Hgb 9.6 L Hct 31.3 L MCH 24.5 L MCHC 30.6 L RDW 18.5 H Plt Count 505 H Neutrophils # 12.0 H Lymphocytes # 0.6 L D-Dimer 1.15 H Sodium 134 L Glucose 312 H Calcium 8.2 L Total Bilirubin <0.1 L Alkaline Phosphatase 209 H Albumin 3.3 L - Diagnostic Findings CT scan - chest: image reviewed (CT of the chest showed evidence of mediastinal adenopathy, and axillary lymphadenopathy, right hilar adenopathy however the sizes of the notes are not significant, the subcarinal lymph nodes and the right hilar lymph nodes are 2.3 cm, likely reactive in nature), other (there is also evidence of moderate pleural effusions, septal lines, groundglass confluent opacities noted bilaterally,and generalized anasarca.liver appeared large) Assessment and Plan Assessment: impression: Shortness of breath with abnormal CT of the chest and chest x-ray showing bilateral opacities and pleural effusions, status post right sided thoracentesis, and the pleural effusion seems to be suspicious for chylothorax. Nonspecific mediastinal and axillary adenopathy, will need to be further evaluated, underlying malignancy to be considered. right foot cellulitis and skin ulcers/diabetic foot ulcers patient is on Unasyn on outpatient basis via PICC line. insulin-dependent diabetes. History of seizure disorder possibleOsteomyelitis right foot. Recommendation: Patient underwent right-sided diagnostic thoracentesis, labs are pending. Continue antibiotics Check cultures blood urine and sputum if possible Admit and consult infectious disease Continue Unasyn/Zosyn for now. Will follow. Time with Patient: Greater than 30
[2022-03-01] MEDS: IPRATROPIUM-ALBUTEROL 3 ML NEB INHALATION SCH ×2 (16:09→19:49)
[2022-03-01 17:11] LABS: Glucose,Whole Blood 414 mg/dL (70-110)
[2022-03-01] MEDS: INSULIN ASPART (NovoLOG) 100 UNIT/ML VIAL SQ SCH ×2 (17:34→20:38)
[2022-03-01 20:31] LABS: Glucose,Whole Blood 334 mg/dL (70-110)
[2022-03-01] MEDS: INSULIN DETEMIR (LEVEMIR) 100 UNIT/ML SYR SQ SCH (20:38)
[2022-03-01] MEDS: HEPARIN SODIUM,PORCINE/PF 5,000 UNIT/0.5 ML SYRINGE SQ SCH (20:38)
[2022-03-01] MEDS: ATORVASTATIN 20 MG TAB PO SCH (20:38)
[2022-03-01] MEDS: PHENYTOIN SODIUM EXTENDED 100 MG CAP PO SCH (20:38)
--- NOTE | 2022-03-01 20:46 | P.CONS ---
History of Present Illness - Reason for Consult Consult date: 03/01/22 Questionable chylothorax Requesting physician: Kalyani Coker - Chief Complaint Increasing shortness of breath x one day - History of Present Illness Patient is a 61-year-old male with multiple comorbidities including diabetes mellitus the patient did have right diabetic foot infection with a nonhealing wound on the plantar aspect of the right foot and underlying o steomyelitis in this patient who is status post debridement of the wound local culture positive for Enterococcus faecalis patient did get a PICC line and was advised six-week course of IV Unasyn with the patient was currently [facility] patient apparently has been sent to the ER for evaluation of increasing shortness of breath apparently has been getting worse for the last few days patient denies having any chest pain he did have a cough [id number] intensity not bringing up any sputum patient denies having any nausea no vomiting no choking on food abdominal pain or any diarrhea patient denies pain to his right foot plantar wound area or any foul-smelling drainage and no problem with a PICC line, patient of presentation to the hospital was afebrile he did have a white count of 13,000 chest x-ray did shows evidence of right-sided effusion patient is status post thoracocentesis completed by pulmonary and they drained pleural fluid which has been sent for analysis and concern for possible chylothorax patient also have a CT angiogram of the chest that was negative for PE did show significant lymphadenopathy as well as right- sided effusion and right lower lobe consolidation patient was empirically started on Zosyn and infectious disease was consulted for further management of antibiotic therapy Review of Systems Positive point has been mentioned in the HPI rest of the systems are negative Past Medical History Past Medical History: Diabetes Mellitus, Diabetes Mellitus, GERD/Reflux, Hyperlipidemia, Osteoarthritis (OA), Seizure Disorder Additional Past Medical History / Comment(s): IDDM type 1 per pt, bilateral feet neuropathy, pt states current wounds to bilateral feet/goes to [facility]/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 History of Any Multi-Drug Resistant Organisms: MRSA Year Discovered:: 12/29/19 MDRO Source:: Left Leg Past Surgical History: Orthopedic Surgery, Tonsillectomy Additional Past Surgical History / Comment(s): 01/23/20 angiogram L leg, 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, colonoscopy, L eye surgery for strabismus. Past Anesthesia/Blood Transfusion Reactions: No Reported Reaction Past Psychological History: Depression Additional Psychological History / Comment(s): Pt resides with friends. He has a glucometer. He does not drive, he usually uses bus system. He is otherwise, independent. Smoking Status: Never smoker Past Alcohol Use History: None Reported Past Drug Use History: None Reported - Past Family History Father Family Medical History: Myocardial Infarction ([place]) Additional Family Medical History / Comment(s): Father of a [place] at the age of 57yrs. Mother Family Medical History: Cancer Additional Family Medical History / Comment(s): Mother from cancer at the age of 61 or 62 . Pt cannot recall type of cancer. Sister(s) Family Medical History: Diabetes Mellitus Additional Family Medical History / Comment(s): Sister had DM type 1. She is . Medications and Allergies Home Medications Medication Instructions Recorded Confirmed Type Omeprazole 20 mg PO BID@0600,2100 06/13/17 03/01/22 History Diphenox-Atrop 2.5-0.025 mg 1 tab PO BID PRN 11/17/19 03/01/22 History [Lomotil] Latanoprost/Pf [Latanoprost 0.005% 1 drop BOTH EYES HS 06/15/21 03/01/22 History Eye Drop] Acetaminophen Tab [Tylenol] 650 mg PO Q6H PRN 07/17/21 03/01/22 History Insulin Glargine,Hum.rec.anlog 50 units SQ HS 01/27/22 03/01/22 History [Lantus Solostar Pen] Phenytoin Sodium Extended 200 mg PO BID 02/14/22 03/01/22 History [Dilantin] Pioglitazone [Actos] 15 mg PO DAILY 02/14/22 03/01/22 History Ampicillin-Sulbactam [Unasyn] 3 gm IVPB Q6H 03/01/22 03/01/22 History Atorvastatin [Lipitor] 20 mg PO HS 03/01/22 03/01/22 History Glucerna Shake 240 ml PO BID 03/01/22 03/01/22 History Insulin Lispro [humaLOG Kwikpen] See Protocol SQ ACHS 03/01/22 03/01/22 History Ondansetron [Zofran] 4 mg PO Q8H PRN 03/01/22 03/01/22 History Allergies Allergy/AdvReac Type Severity Reaction Status Date / Time No Known Allergies Allergy Verified 03/01/22 14:40 Physical Exam Vitals: Vital Signs Temp Pulse Pulse Resp BP BP Pulse Ox 03/01/22 15:50 99.0 F 116 H 15 166/95 96 03/01/22 15:49 99.0 F 116 H 15 166/95 97 03/01/22 15:44 113 H 20 158/84 93 L 03/01/22 14:14 117 H 20 189/105 98 03/01/22 13:57 125 H 03/01/22 13:48 120 H 03/01/22 12:35 20 03/01/22 12:31 98.7 F 119 H 18 190/101 95 Intake and Output 03/01/22 03/01/22 03/01/22 06:59 14:59 22:59 Other: Weight 49.895 kg 51.81 kg GENERAL DESCRIPTION: Middle-aged male lying in bed, no distress. No tachypnea or accessory muscle of respiration use. HEENT: Shows Pallor , no scleral icterus. Oral mucous membrane is dry. No pharyngeal erythema or thrush NECK: Trachea central, no thyromegaly. LUNGS: Unlabored breathing. Coarse breath sounds bilaterally HEART: S1, S2, regular rate and rhythm. No loud murmur ABDOMEN: Soft, no tenderness , guarding or rigidity, no organomegaly EXTREMITIES: Right foot plantar wound base is no significant slough tissue surrounding redness or drainage SKIN: No rash, no masses palpable. NEUROLOGICAL: The patient is awake, alert, oriented x3, mood and affect normal. Results CBC & Chem 7: 03/07/22 07:10 03/07/22 07:10 Labs: Abnormal Lab Results - Last 24 Hours (Table) 03/01/22 03/01/22 03/01/22 Range/Units 12:49 12:49 12:49 WBC 13.3 H (3.8-10.6) k/uL RBC 3.90 L (4.30-5.90) m/uL Hgb 9.6 L (13.0-17.5) gm/dL Hct 31.3 L (39.0-53.0) % MCH 24.5 L (25.0-35.0) pg MCHC 30.6 L (31.0-37.0) g/dL RDW 18.5 H (11.5-15.5) % Plt Count 505 H (150-450) k/uL Neutrophils # 12.0 H (1.3-7.7) k/uL Lymphocytes # 0.6 L (1.0-4.8) k/uL D-Dimer 1.15 H (<0.60) mg/L FEU Sodium 134 L (137-145) mmol/L Glucose 312 H (74-99) mg/dL Calcium 8.2 L (8.4-10.2) mg/dL Total Bilirubin <0.1 L (0.2-1.3) mg/dL Alkaline Phosphatase 209 H (38-126) U/L Albumin 3.3 L (3.5-5.0) g/dL Assessment and Plan (1) Pneumonia Current Visit: Yes Status: Acute Code(s): J18.9 - PNEUMONIA, UNSPECIFIED ORGANISM SNOMED Code(s): 265211717 (2) Infected wound Current Visit: No Status: Acute Code(s): T14.8XXA - OTHER INJURY OF UNSPECIFIED BODY REGION, INITIAL ENCOUNTER; L08.9 - LOCAL INFECTION OF THE SKIN AND SUBCUTANEOUS TISSUE, UNSP SNOMED Code(s): 33959235 Plan: 1patient with right diabetic foot infection with underlying ostial myelitis secondary to Enterococcus faecalis for the patient was currently getting Unasyn and local prison patient right foot plantar wound seems to be healing well without evidence of any surrounding redness or any foul-smelling drainage. 2patient no with right-sided effusion and concern for possible right lobe pneumonia and significant lymphadenopathy possible gram-negative pneumonia status post thoracocentesis and concern for possible chylothorax waiting for the pleural fluid analysis at this point. 3patient to continue with the Zosyn 3.375 g every 8 hours while waiting for the culture finalized. 4local wound care to the right foot plantar wound with Aquacel silver dressing changed every 48 hour. We will follow on clinical condition and cultures to further adjust medication if needed Thank you for this consultation will follow this patient with you Time with Patient: Greater than 30
--- NOTE | 2022-03-01 22:14 | OP ---
OPERATIVE REPORT PROCEDURE: Right-sided thoracentesis. PREOPERATIVE DIAGNOSIS: Right pleural effusion. POSTOPERATIVE DIAGNOSIS: Right pleural effusion. ANESTHESIA USED: 4 mL of 1% lidocaine. DESCRIPTION OF PROCEDURE: The patient was placed in a sitting upright position, the area below the right scapula was evaluated, and ultrasound was done, the area of the fluid was marked and correlated to the 8th intercostal space and tip of the scapula. Verbal consent was obtained from the patient for the procedure and he agreed to proceed with the thoracentesis. The area below the right scapula was prepared in a sterile fashion and drapes were applied, and the area at the 8th intercostal space and tip of the scapula was locally anesthetized with lidocaine. Then, a 26-gauge needle was inserted until the fluid was obtained from the pleural space and it was localized. Then, a small tiny incision was made, a standard thoracentesis 9-Belgian catheter and needle used advanced at the same site into the pleural space until fluid was obtained and as soon as the fluid was obtained, the catheter was advanced over the needle and the needle was pulled out of the pleural space. Freely flowing fluid was removed, roughly 950 mL of lipemic-looking fluid removed from the right pleural space. The procedure was well tolerated, no immediate complications, chest x-ray was ordered postoperatively. MMODL / IJN: [id number] /
[2022-03-01 23:15] LABS: Glucose,Whole Blood 308 mg/dL (70-110)
[2022-03-01] MEDS: PIPERACILLIN-TAZOBACTAM 3.375 GM in SODIUM CHLORIDE 0.9% 100 ML IVPB SCH (23:22)
[2022-03-01 23:54] LABS: Amylase, Fluid Source Pleural Fluid; Amylase,Body Fluid 18 U/L; Cholesterol,BF Source Pleural Fluid; Cholesterol,Body Fluid 37 mg/dL; Glucose, BF Source Pleural Fluid; Glucose, Body Fluid 269 mg/dL; LDH, Body Fluid Source Pleural Fluid; T. Protein, Body Fluid Source Pleural Fluid; Total Protein, Body Fluid 2420 mg/dL
[2022-03-02 00:06] LABS: Appearance,BF Cloudy
--- NOTE | 2022-03-02 00:41 | P.HPIM ---
History of Present Illness H&P Date: 03/01/22 Chief Complaint: Shortness of breath Patient is a 61-year-old male with a known history of chronic diabetic foot ulcer with cultures growing Enterococcus faecalis and is currently on Unasyn at [facility], hypertension, hyperlipidemia, diabetes type 2, osteoarthritis, seizure disorder, bilateral peripheral neuropathy, depression and other medical problems was sent to ER with complaints of shortness of breath which is worsening for the past 1 week along with cough which is mainly nonproductive. No fever or chills. No complains of chest pain. No nausea vomiting abdominal pain or diarrhea. Chest x-ray on admission showed correlate for interval development of CHF with patchy pulmonary edema. Moderate right greater than left pleural effusion. Laboratory data cerebrospinal 0.3 hemoglobin 9.6 and platelets 505 Sodium 134, potassium 4.5 chloride 104 bicarb is 27 BUN 18 and creatinine 0.6 and blood sugar is 312 admission. Albumin 3.3 proBNP 476 D-dimer is 1.15 patient underwent thoracentesis by pulmonary in the ER. Patient is being covered on broad-spectrum antibiotics. Review of Systems Constitutional: Patient denies any fever or chills . Patient does have generalized weakness and fatigue.. Abdomen: Patient denied nausea vomiting and diarrhea and abdominal pain. Cardiovascular: Patient denies any chest pain. Patient does have worsening short of breath no palpitations. Respiratory: Patient does have cough without sputum production. Positive for shortness of breath Neurologic: Patient denied any numbness or tingling headache. Patient is a poor historian and review of systems could not be done completely. Past Medical History Past Medical History: Diabetes Mellitus, Diabetes Mellitus, GERD/Reflux, Hyperlipidemia, Osteoarthritis (OA), Seizure Disorder Additional Past Medical History / Comment(s): IDDM type 1 per pt, bilateral feet neuropathy, pt states current wounds to bilateral feet/goes to [facility]/seen by Dr. Anabel basurto (esthetician/skin therapist), past L lower extremity cellulitis with sepsis, L wrist cancerous tumor removed, past seizure about a year ago, arthritis L knee, vertigo, occasional diarrhea. History of Any Multi-Drug Resistant Organisms: MRSA Date of last positivie culture/infection: 12/29/19 MDRO Source:: Left Leg Past Surgical History: Orthopedic Surgery, Tonsillectomy Additional Past Surgical History / Comment(s): 01/23/20 angiogram L leg, 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, colonoscopy, L eye surgery for strabismus. Past Anesthesia/Blood Transfusion Reactions: No Reported Reaction Past Psychological History: Depression Additional Psychological History / Comment(s): Pt resides with friends. He has a glucometer. He does not drive, he usually uses bus system. He is otherwise, independent. Smoking Status: Never smoker Past Alcohol Use History: None Reported Past Drug Use History: None Reported - Past Family History Father Family Medical History: Myocardial Infarction ([place]) Additional Family Medical History / Comment(s): Father of a [place] at the age of 57yrs. Mother Family Medical History: Cancer Additional Family Medical History / Comment(s): Mother from cancer at the age of 61 or 62 . Pt cannot recall type of cancer. Sister(s) Family Medical History: Diabetes Mellitus Additional Family Medical History / Comment(s): Sister had DM type 1. She is . Medications and Allergies Home Medications Medication Instructions Recorded Confirmed Type Omeprazole 20 mg PO BID@0600,2100 06/13/17 03/01/22 History Diphenox-Atrop 2.5-0.025 mg 1 tab PO BID PRN 11/17/19 03/01/22 History [Lomotil] Latanoprost/Pf [Latanoprost 0.005% 1 drop BOTH EYES HS 06/15/21 03/01/22 History Eye Drop] Acetaminophen Tab [Tylenol] 650 mg PO Q6H PRN 07/17/21 03/01/22 History Insulin Glargine,Hum.rec.anlog 50 units SQ HS 01/27/22 03/01/22 History [Lantus Solostar Pen] Phenytoin Sodium Extended 200 mg PO BID 02/14/22 03/01/22 History [Dilantin] Pioglitazone [Actos] 15 mg PO DAILY 02/14/22 03/01/22 History Ampicillin-Sulbactam [Unasyn] 3 gm IVPB Q6H 03/01/22 03/01/22 History Atorvastatin [Lipitor] 20 mg PO HS 03/01/22 03/01/22 History Glucerna Shake 240 ml PO BID 03/01/22 03/01/22 History Insulin Lispro [humaLOG Kwikpen] See Protocol SQ ACHS 03/01/22 03/01/22 History Ondansetron [Zofran] 4 mg PO Q8H PRN 03/01/22 03/01/22 History Allergies Allergy/AdvReac Type Severity Reaction Status Date / Time No Known Allergies Allergy Verified 03/01/22 14:40 Physical Exam Vitals: Vital Signs Temp Pulse Pulse Resp BP BP Pulse Ox 03/01/22 19:59 96 03/01/22 19:52 106 H 03/01/22 16:19 100 03/01/22 16:14 115 H 15 03/01/22 16:09 100 03/01/22 15:50 99.0 F 116 H 15 166/95 96 03/01/22 15:49 99.0 F 116 H 15 166/95 97 03/01/22 15:44 113 H 20 158/84 93 L 03/01/22 14:14 117 H 20 189/105 98 03/01/22 13:57 125 H 03/01/22 13:48 120 H 03/01/22 12:35 20 03/01/22 12:31 98.7 F 119 H 18 190/101 95 Intake and Output 03/01/22 03/01/22 03/01/22 06:59 14:59 22:59 Other: Voiding Method Urinal Weight 49.895 kg 51.81 kg PHYSICAL EXAMINATION: Patient is lying in the bed comfortably, no acute distress, awake alert but lethargic and weak. HEENT: Normocephalic. Neck is supple. Pupils reactive. Nostrils clear. Oral cavity is moist. Neck reveals no JVD, carotid bruits, or thyromegaly. CHEST EXAMINATION: Trachea is central. Symmetrical expansion. Bibasilar diminished sounds and right basilar dullness percussion. No wheezing... CARDIAC: Normal S1, S2 with no gallops. No murmurs ABDOMEN: Soft. Bowel sounds normal. No organomegaly. No abdominal bruits. Extremities: reveal no edema. No clubbing or cyanosis Neurologically awake, alert, oriented 2-3 with well-coordinated movements. No focal deficits noted Skin: No rash. Patient does have right foot ulcer which is wrapped. Psychiatric: Coperative. Nonsuicidal Musculoskeletal: No joint swelling or deformity. Normal range of motion. Results CBC & Chem 7: 03/02/22 07:04 03/02/22 07:04 Labs: Abnormal Lab Results - Last 24 Hours (Table) 03/01/22 03/01/22 03/01/22 Range/Units 12:49 12:49 12:49 WBC 13.3 H (3.8-10.6) k/uL RBC 3.90 L (4.30-5.90) m/uL Hgb 9.6 L (13.0-17.5) gm/dL Hct 31.3 L (39.0-53.0) % MCH 24.5 L (25.0-35.0) pg MCHC 30.6 L (31.0-37.0) g/dL RDW 18.5 H (11.5-15.5) % Plt Count 505 H (150-450) k/uL Neutrophils # 12.0 H (1.3-7.7) k/uL Lymphocytes # 0.6 L (1.0-4.8) k/uL D-Dimer 1.15 H (<0.60) mg/L FEU Sodium 134 L (137-145) mmol/L Glucose 312 H (74-99) mg/dL POC Glucose (mg/dL) (70-110) mg/dL Calcium 8.2 L (8.4-10.2) mg/dL Total Bilirubin <0.1 L (0.2-1.3) mg/dL Alkaline Phosphatase 209 H (38-126) U/L Albumin 3.3 L (3.5-5.0) g/dL 03/01/22 Range/Units 16:48 WBC (3.8-10.6) k/uL RBC (4.30-5.90) m/uL Hgb (13.0-17.5) gm/dL Hct (39.0-53.0) % MCH (25.0-35.0) pg MCHC (31.0-37.0) g/dL RDW (11.5-15.5) % Plt Count (150-450) k/uL Neutrophils # (1.3-7.7) k/uL Lymphocytes # (1.0-4.8) k/uL D-Dimer (<0.60) mg/L FEU Sodium (137-145) mmol/L Glucose (74-99) mg/dL POC Glucose (mg/dL) 414 H (70-110) mg/dL Calcium (8.4-10.2) mg/dL Total Bilirubin (0.2-1.3) mg/dL Alkaline Phosphatase (38-126) U/L Albumin (3.5-5.0) g/dL Thrombosis Risk Factor Assmnt - DVT/VTE Prophylaxis DVT/VTE Prophylaxis: Pharmacologic Prophylaxis ordered - Choose All That Apply Any of the Below Risk Factors Present?: Yes Each Risk Factor Represents 2 Points: Age 61-74 years Other congenital or acquired thrombophilia - If yes, enter type in comment: No Thrombosis Risk Factor Assessment Total Risk Factor Score: 2 Thrombosis Risk Factor Assessment Level: Low Risk Assessment and Plan Assessment: Worsening shortness of breath due to bilateral pleural effusions right greater than left. Suspicious for chylothorax. Status post right thoracentesis. Mediastinal and axillary lymphadenopathy. Possible underlying malignancy cannot be excluded. Right diabetic foot ulcer with recent wound cultures growing Enterococcus faecalis was maintained on Unasyn with PICC line. Hyperglycemia with uncontrolled diabetes type 2. Insulin-dependent Seizure disorder Hyperlipidemia Diabetic peripheral neuropathy Depression DVT prophylaxis with heparin subcu Plan: Patient will be continued on oxygen supplementation. Status post right thoracentesis. Continue with IV Lasix 20 mg twice daily. Continue with broad-spectrum antibiotics in the form of Zosyn and follow-up wound cultures and blood cultures. Patient will be started back on insulin regimen and sliding scale. Titrate insulin dose as needed. Pulmonary and ID is on board. Follow up closely. Time with Patient: Greater than 30
[2022-03-02] MEDS ORDERED: ACETAMINOPHEN TAB 325 MG TAB PO PRN (00:42)
[2022-03-02 01:40] LABS: Glucose,Whole Blood 276 mg/dL (70-110)
[2022-03-02] MEDS: PANTOPRAZOLE 40 MG TABLET PO SCH ×2 (06:26→21:24)
[2022-03-02] MEDS: LATANOPROST 0.005% OPHTH DROPS 2.5 ML BTL BOTH EYES SCH (06:26)
[2022-03-02 06:27] LABS: Glucose,Whole Blood 98 mg/dL (70-110)
[2022-03-02] MEDS: INSULIN ASPART (NovoLOG) 100 UNIT/ML VIAL SQ SCH ×4 (06:29→21:17)
[2022-03-02 07:48] LABS: Anisocytosis Slight; Basophils # (A) 0.1 k/uL (0-0.2); Basophils % (A) 1 %; Eosinophils # (A) 0.1 k/uL (0-0.7); Eosinophils % (A) 1 %; HCT 27.3 % (39.0-53.0); HGB 8.2 gm/dL (13.0-17.5); Hypochromasia Marked; Lymphocytes # (A) 1.2 k/uL (1.0-4.8); Lymphocytes % (A) 15 %; MCH 23.8 pg (25.0-35.0); MCV 79.4 fL (80.0-100.0); Mean Platelet Volume 7.6; Microcytosis Slight; Monocytes # (A) 0.5 k/uL (0-1.0); Monocytes % (A) 6 %; Neutrophils # (A) 5.8 k/uL (1.3-7.7); Neutrophils % (A) 74 %; Platelet Count 481 k/uL (150-450); RBC 3.44 m/uL (4.30-5.90); RDW 18.7 % (11.5-15.5); WBC 7.8 k/uL (3.8-10.6)
[2022-03-02 08:11] LABS: African American GFR (CKD) >90 (>60 ml/min/1.73 sqM); Anion Gap 4 mmol/L; Blood Urea Nitrogen 21 mg/dL (9-20); Calcium 8.4 mg/dL (8.4-10.2); Carbon Dioxide 31 mmol/L (22-30); Chloride 102 mmol/L (98-107); Glucose 58 mg/dL (74-99); LDH 445 U/L (313-618); Non-African American GFR(CKD) 85 (>60 ml/min/1.73 sqM); Potassium 4.4 mmol/L (3.5-5.1); Sodium 137 mmol/L (137-145)
[2022-03-02 09:02] LABS: Glucose,Whole Blood 59 mg/dL (70-110)
[2022-03-02] MEDS: IPRATROPIUM-ALBUTEROL 3 ML NEB INHALATION SCH ×4 (09:16→20:39)
[2022-03-02 09:23] LABS: Glucose,Whole Blood 66 mg/dL (70-110)
[2022-03-02] MEDS: FUROSEMIDE 10 MG/ML 2 ML VIAL IV SCH ×2 (09:30→21:23)
[2022-03-02] MEDS: ASPIRIN 325 MG TAB PO SCH (09:30)
[2022-03-02] MEDS: NITROGLYCERIN OINT 1 INCH/GM PACKET TOPICAL SCH ×4 (09:30→21:24)
[2022-03-02] MEDS: HEPARIN SODIUM,PORCINE/PF 5,000 UNIT/0.5 ML SYRINGE SQ SCH ×2 (09:30→21:22)
[2022-03-02] MEDS: PIOGLITAZONE 15 MG TAB PO SCH ×2 (09:30→12:56)
[2022-03-02] MEDS: PHENYTOIN SODIUM EXTENDED 100 MG CAP PO SCH ×2 (09:30→21:24)
[2022-03-02] MEDS: PIPERACILLIN-TAZOBACTAM 3.375 GM in SODIUM CHLORIDE 0.9% 100 ML IVPB SCH (09:31)
[2022-03-02 09:34] LABS: Protein, Total 6.3 g/dL (6.2-8.2)
[2022-03-02 09:52] LABS: Glucose,Whole Blood 94 mg/dL (70-110)
--- NOTE | 2022-03-02 10:01 | XR ---
EXAMINATION TYPE: XR chest 2V DATE OF EXAM: 03/02/2022 COMPARISON: 03/01/2022 HISTORY: 61-year-old male follow-up pneumonia TECHNIQUE: AP and lateral views FINDINGS: Right PICC tip at the mid SVC level. Heart normal size. Hyperinflation. Continued small left pleural effusion. Airspace opacity left lower lung and right upper lobe persist. Slight worsening aeration me dial right base and patchy densities left upper lobe. IMPRESSION: Changes of COPD, small left pleural effusion, and ongoing multifocal pneumonia. Possible additional d eveloping infiltrates medial right base and left upper lobe now.
[2022-03-02 11:35] LABS: Glucose,Whole Blood 91 mg/dL (70-110)
--- NOTE | 2022-03-02 11:45 | P.CRDCN ---
History of Present Illness Consult date: 03/02/22 History of present illness: HISTORY OF PRESENT ILLNESS This is a 61-year-old male with past medical history of diabetes mellitus type 2 insulin requiring, hyperlipidemia, gastroesophageal reflux disease, osteomyelitis and chronic wounds to the lower extremity with previous amputation of the left great toe. We've been asked to see the patient regarding heart failure. Patient came to the emergency center due to increasing shortness of breath and cough is nonproductive. He denies having any cardiac history, not seen by door repairman, no previous heart catheterization or stress testing. Patient denies any lower extremity edema. Patient is on oxygen at 4 L nasal cannula does not have home O2. He underwent a thoracentesis on the right side on 03/01. Heart rate is 100, but pressure 138/78, pulse ox 90% on 4 L. EKG sinus tachycardia at 117 bpm WBC 13.3, troponin negative 3, BNP 476, creatinine 0.97. CTA was negative for pulmonary embolism but did show lymphadenopathy, + right lower lobe consolidation Repeat chest x-ray today reveals COPD, small left pleural effusion, ongoing multifocal pneumonia. Possible additional developing infiltrates medial right base and left lower lobe. REVIEW OF SYSTEMS Constitutional: No fever, no chills. No weakness, fatigue or lethargy. EENT: No headache. No dizziness. Lungs: Reports shortness of breath, reports cough, no sputum production. No wheezing. Cardiovascular: No chest pain, no lower extremity edema. No palpitations. No paroxysmal nocturnal dyspnea. No orthopnea. No lightheadedness or dizziness. No syncopal episodes. Abdominal: No abdominal pain. No nausea, vomiting. No diarrhea. No consti pation. No bloody or tarry stools. No loss of appetite. Genitourinary: No dysuria.. No urinary retention. Musculoskeletal: No myalgias. No muscle weakness, no gait dysfunction, no frequent falls. No back pain. No neck pain. Integumentary: Chronic lower extremity wounds with osteomyelitis, no lesions. No rash or pruritus. No unusual bruising. Neurologic: No aphasia. No facial droop. No change in mentation. No head injury. No headache. No paralysis. No paresthesia. Psychiatric: No depression. No anxiety. Endocrine: No abnormal blood sugars. PHYSICAL EXAMINATION Gen: This is a 61-year-old frail-appearing male. He is resting bed appears to be in no acute distress. VS: reviewed HEENT: Head is atraumatic, normocephalic. Pupils equal, round. Sclerae is anicteric. NECK: Supple. No JVD. No lymphadenopathy. LUNGS: Diminished bilateral lower lobes. No wheezes or rhonchi. No intercostal retractions. HEART: Regular rate and rhythm. No murmur. ABDOMEN: Soft. Bowel sounds are present. No masses. No tenderness. EXTREMITIES: Left great toe amputation, left lower extremity dressing in place and right foot as well. NEUROLOGICAL: Patient is awake, alert and oriented x3. Cranial nerves 2 through 12 are grossly intact. ASSESSMENT Shortness of breath secondary to pleural effusions, status post right-sided thoracentesis Mediastinal and axillary adenopathy Osteomyelitis right foot Diabetes mellitus insulin requiring PLAN Continue patient on Lasix 20 mg IV every 12 hours Obtain 2-D echocardiogram and Doppler study to assess cardiac structure and function Further recommendations to follow based upon clinical course Thank you kindly for this consultation. Nurse practitioner note has been reviewed, I agree with documented findings and plan of care. Patient was seen and examined. Past Medical History Past Medical History: Diabetes Mellitus, Diabetes Mellitus, GERD/Reflux, Hyperlipidemia, Osteoarthritis (OA), Seizure Disorder Additional Past Medical History / Comment(s): IDDM type 1 per pt, bilateral feet neuropathy, pt states current wounds to bilateral feet/goes to [facility]/seen by Dr. Major (service loss control consultant), past L lower extremity cellulitis with sepsis, L wrist cancerous tumor removed, past seizure about a year ago, arthritis L knee, vertigo, occasional diarrhea. History of Any Multi-Drug Resistant Organisms: MRSA Date of last positivie culture/infection: 12/29/19 MDRO Source:: Left Leg Past Surgical History: Orthopedic Surgery, Tonsillectomy Additional Past Surgical History / Comment(s): 01/23/20 angiogram L leg, 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, colonoscopy, L eye surgery for strabismus. Past Anesthesia/Blood Transfusion Reactions: No Reported Reaction Past Psychological History: Depression Additional Psychological History / Comment(s): Pt resides with friends. He has a glucometer. He does not drive, he usually uses bus system. He is otherwise, independent. Smoking Status: Never smoker Past Alcohol Use History: None Reported Past Drug Use History: None Reported - Past Family History Father Family Medical History: Myocardial Infarction (WA) Additional Family Medical History / Comment(s): Father of a WA at the age of 57yrs. Mother Family Medical History: Cancer Additional Family Medical History / Comment(s): Mother from cancer at the age of 61 or 62 . Pt cannot recall type of cancer. Sister(s) Family Medical History: Diabetes Mellitus Additional Family Medical History / Comment(s): Sister had DM type 1. She is . Medications and Allergies Home Medications Medication Instructions Recorded Confirmed Type Omeprazole 20 mg PO BID@0600,2100 06/13/17 03/01/22 History Diphenox-Atrop 2.5-0.025 mg 1 tab PO BID PRN 11/17/19 03/01/22 History [Lomotil] Latanoprost/Pf [Latanoprost 0.005% 1 drop BOTH EYES HS 06/15/21 03/01/22 History Eye Drop] Acetaminophen Tab [Tylenol] 650 mg PO Q6H PRN 07/17/21 03/01/22 History Insulin Glargine,Hum.rec.anlog 50 units SQ HS 01/27/22 03/01/22 History [Lantus Solostar Pen] Phenytoin Sodium Extended 200 mg PO BID 02/14/22 03/01/22 History [Dilantin] Pioglitazone [Actos] 15 mg PO DAILY 02/14/22 03/01/22 History Ampicillin-Sulbactam [Unasyn] 3 gm IVPB Q6H 03/01/22 03/01/22 History Atorvastatin [Lipitor] 20 mg PO HS 03/01/22 03/01/22 History Glucerna Shake 240 ml PO BID 03/01/22 03/01/22 History Insulin Lispro [humaLOG Kwikpen] See Protocol SQ ACHS 03/01/22 03/01/22 History Ondansetron [Zofran] 4 mg PO Q8H PRN 03/01/22 03/01/22 History Allergies Allergy/AdvReac Type Severity Reaction Status Date / Time No Known Allergies Allergy Verified 03/01/22 14:40 Physical Exam Vitals: Vital Signs Temp Pulse Pulse Resp BP BP Pulse Ox 03/02/22 04:00 100 18 152/91 98 03/01/22 23:22 98.0 F 109 H 19 134/65 99 03/01/22 20:00 98.6 F 113 H 19 131/67 99 03/01/22 19:59 96 03/01/22 19:52 106 H 03/01/22 16:19 100 03/01/22 16:14 115 H 15 03/01/22 16:09 100 03/01/22 15:50 99.0 F 116 H 15 166/95 96 03/01/22 15:49 99.0 F 116 H 15 166/95 97 03/01/22 15:44 113 H 20 158/84 93 L 03/01/22 14:14 117 H 20 189/105 98 03/01/22 13:57 125 H 03/01/22 13:48 120 H 03/01/22 12:35 20 03/01/22 12:31 98.7 F 119 H 18 190/101 95 Intake and Output 03/01/22 03/02/22 03/02/22 22:59 06:59 14:59 Other: Voiding Method Urinal Urinal # Voids 2 2 Weight 51.81 kg 51.6 kg Results 03/02/22 07:04 03/02/22 07:04 Cardiac Enzymes 03/01/22 03/01/22 03/01/22 Range/Units 12:30 12:49 12:49 WBC 13.3 H (3.8-10.6) k/uL RBC 3.90 L (4.30-5.90) m/uL Hgb 9.6 L (13.0-17.5) gm/dL Hct 31.3 L (39.0-53.0) % MCV 80.2 (80.0-100.0) fL MCH 24.5 L (25.0-35.0) pg MCHC 30.6 L (31.0-37.0) g/dL RDW 18.5 H (11.5-15.5) % Plt Count 505 H (150-450) k/uL MPV 7.8 Neutrophils % 90 % Lymphocytes % 4 % Monocytes % 4 % Eosinophils % 1 % Basophils % 0 % Neutrophils # 12.0 H (1.3-7.7) k/uL Lymphocytes # 0.6 L (1.0-4.8) k/uL Monocytes # 0.5 (0-1.0) k/uL Eosinophils # 0.1 (0-0.7) k/uL Basophils # 0.1 (0-0.2) k/uL Hypochromasia Marked Anisocytosis Slight Microcytosis Slight PT 9.5 (9.0-12.0) sec INR 0.9 (<1.2) APTT 27.6 (22.0-30.0) sec D-Dimer 1.15 H (<0.60) mg/L FEU Sodium (137-145) mmol/L Potassium (3.5-5.1) mmol/L Chloride (98-107) mmol/L Carbon Dioxide (22-30) mmol/L Anion Gap mmol/L BUN (9-20) mg/dL Creatinine (0.66-1.25) mg/dL Est GFR (CKD-EPI)AfAm (>60 ml/min/1.73 sqM) Est GFR (CKD-EPI)NonAf (>60 ml/min/1.73 sqM) Glucose (74-99) mg/dL POC Glucose (mg/dL) (70-110) mg/dL POC Glu Machine Milker ID Plasma Lactic Acid Imchael (0.7-2.0) mmol/L Calcium (8.4-10.2) mg/dL Total Bilirubin (0.2-1.3) mg/dL AST (17-59) U/L ALT (4-49) U/L Alkaline Phosphatase (38-126) U/L Lactate Dehydrogenase (313-618) U/L Troponin I (0.000-0.034) ng/mL NT-Pro-B Natriuret Pep pg/mL Total Protein (6.3-8.2) g/dL Albumin (3.5-5.0) g/dL Procalcitonin (0.02-0.09) ng/mL Fluid Source Fluid Volume Fluid Appearance Fluid WBC Fluid RBC (Auto) Fld Polynuclear WBCs % % Fluid Lymphocytes % % Fluid Monocytes % % Fluid Eosinophils % % Fluid Basophils % % Fld Mesothelial Cell % % Fluid Other Cells % Body Fluid Glucose Source Fluid Glucose mg/dL Body Fluid Protein Source Fluid Total Protein mg/dL Body Fluid LDH Source Fluid LDH U/L Body Fluid Amylase Source Fluid Amylase U/L Fluid Cholesterol mg/dL Fl Cholesterol Source Influenza Type A (PCR) Not Detected (Not Detectd) Influenza Type B (PCR) Not Detected (Not Detectd) RSV (PCR) Not Detected (Not Detectd) SARS-CoV-2 (PCR) Not Detected (Not Detectd) 03/01/22 03/01/22 03/01/22 Range/Units 12:49 12:49 12:49 WBC (3.8-10.6) k/uL RBC (4.30-5.90) m/uL Hgb (13.0-17.5) gm/dL Hct (39.0-53.0) % MCV (80.0-100.0) fL MCH (25.0-35.0) pg MCHC (31.0-37.0) g/dL RDW (11.5-15.5) % Plt Count (150-450) k/uL MPV Neutrophils % % Lymphocytes % % Monocytes % % Eosinophils % % Basophils % % Neutrophils # (1.3-7.7) k/uL Lymphocytes # (1.0-4.8) k/uL Monocytes # (0-1.0) k/uL Eosinophils # (0-0.7) k/uL Basophils # (0-0.2) k/uL Hypochromasia Anisocytosis Microcytosis PT (9.0-12.0) sec INR (<1.2) APTT (22.0-30.0) sec D-Dimer (<0.60) mg/L FEU Sodium 134 L (137-145) mmol/L Potassium 4.5 (3.5-5.1) mmol/L Chloride 101 (98-107) mmol/L Carbon Dioxide 27 (22-30) mmol/L Anion Gap 6 mmol/L BUN 18 (9-20) mg/dL Creatinine 0.66 (0.66-1.25) mg/dL Est GFR (CKD-EPI)AfAm >90 (>60 ml/min/1.73 sqM) Est GFR (CKD-EPI)NonAf >90 (>60 ml/min/1.73 sqM) Glucose 312 H (74-99) mg/dL POC Glucose (mg/dL) (70-110) mg/dL POC Glu Machine Milker ID Plasma Lactic Acid Michael 1.2 (0.7-2.0) mmol/L Calcium 8.2 L (8.4-10.2) mg/dL Total Bilirubin <0.1 L (0.2-1.3) mg/dL AST 22 (17-59) U/L ALT 23 (4-49) U/L Alkaline Phosphatase 209 H (38-126) U/L Lactate Dehydrogenase (313-618) U/L Troponin I <0.012 (0.000-0.034) ng/mL NT-Pro-B Natriuret Pep pg/mL Total Protein 6.7 (6.3-8.2) g/dL Albumin 3.3 L (3.5-5.0) g/dL Procalcitonin (0.02-0.09) ng/mL Fluid Source Fluid Volume Fluid Appearance Fluid WBC Fluid RBC (Auto) Fld Polynuclear WBCs % % Fluid Lymphocytes % % Fluid Monocytes % % Fluid Eosinophils % % Fluid Basophils % % Fld Mesothelial Cell % % Fluid Other Cells % Body Fluid Glucose Source Fluid Glucose mg/dL Body Fluid Protein Source Fluid Total Protein mg/dL Body Fluid LDH Source Fluid LDH U/L Body Fluid Amylase Source Fluid Amylase U/L Fluid Cholesterol mg/dL Fl Cholesterol Source Influenza Type A (PCR) (Not Detectd) Influenza Type B (PCR) (Not Detectd) RSV (PCR) (Not Detectd) SARS-CoV-2 (PCR) (Not Detectd) 03/01/22 03/01/22 03/01/22 Range/Units 12:49 14:15 14:15 WBC (3.8-10.6) k/uL RBC (4.30-5.90) m/uL Hgb (13.0-17.5) gm/dL Hct (39.0-53.0) % MCV (80.0-100.0) fL MCH (25.0-35.0) pg MCHC (31.0-37.0) g/dL RDW (11.5-15.5) % Plt Count (150-450) k/uL MPV Neutrophils % % Lymphocytes % % Monocytes % % Eosinophils % % Basophils % % Neutrophils # (1.3-7.7) k/uL Lymphocytes # (1.0-4.8) k/uL Monocytes # (0-1.0) k/uL Eosinophils # (0-0.7) k/uL Basophils # (0-0.2) k/uL Hypochromasia Anisocytosis Microcytosis PT (9.0-12.0) sec INR (<1.2) APTT (22.0-30.0) sec D-Dimer (<0.60) mg/L FEU Sodium (137-145) mmol/L Potassium (3.5-5.1) mmol/L Chloride (98-107) mmol/L Carbon Dioxide (22-30) mmol/L Anion Gap mmol/L BUN (9-20) mg/dL Creatinine (0.66-1.25) mg/dL Est GFR (CKD-EPI)AfAm (>60 ml/min/1.73 sqM) Est GFR (CKD-EPI)NonAf (>60 ml/min/1.73 sqM) Glucose (74-99) mg/dL POC Glucose (mg/dL) (70-110) mg/dL POC Glu Machine Milker ID Plasma Lactic Acid Michael (0.7-2.0) mmol/L Calcium (8.4-10.2) mg/dL Total Bilirubin (0.2-1.3) mg/dL AST (17-59) U/L ALT (4-49) U/L Alkaline Phosphatase (38-126) U/L Lactate Dehydrogenase (313-618) U/L Troponin I (0.000-0.034) ng/mL NT-Pro-B Natriuret Pep 476 pg/mL Total Protein (6.3-8.2) g/dL Albumin (3.5-5.0) g/dL Procalcitonin (0.02-0.09) ng/mL Fluid Source Pleural Fluid Fluid Volume 6 Fluid Appearance Cloudy Fluid WBC 75 Fluid RBC (Auto) <2000 Fld Polynuclear WBCs % 22 % Fluid Lymphocytes % 36 % Fluid Monocytes % 35 % Fluid Eosinophils % 0 % Fluid Basophils % 0 % Fld Mesothelial Cell % 7 % Fluid Other Cells % 0 Body Fluid Glucose Source Pleural Fluid Fluid Glucose 269 mg/dL Body Fluid Protein Source Pleural Fluid Fluid Total Protein 2420 mg/dL Body Fluid LDH Source Pleural Fluid Fluid LDH 83 U/L Body Fluid Amylase Source Pleural Fluid Fluid Amylase 18 U/L Fluid Cholesterol 37 mg/dL Fl Cholesterol Source Pleural Fluid Influenza Type A (PCR) (Not Detectd) Influenza Type B (PCR) (Not Detectd) RSV (PCR) (Not Detectd) SARS-CoV-2 (PCR) (Not Detectd) 03/01/22 03/01/22 03/01/22 Range/Units 15:09 15:09 15:09 WBC (3.8-10.6) k/uL RBC (4.30-5.90) m/uL Hgb (13.0-17.5) gm/dL Hct (39.0-53.0) % MCV (80.0-100.0) fL MCH (25.0-35.0) pg MCHC (31.0-37.0) g/dL RDW (11.5-15.5) % Plt Count (150-450) k/uL MPV Neutrophils % % Lymphocytes % % Monocytes % % Eosinophils % % Basophils % % Neutrophils # (1.3-7.7) k/uL Lymphocytes # (1.0-4.8) k/uL Monocytes # (0-1.0) k/uL Eosinophils # (0-0.7) k/uL Basophils # (0-0.2) k/uL Hypochromasia Anisocytosis Microcytosis PT (9.0-12.0) sec INR (<1.2) APTT (22.0-30.0) sec D-Dimer (<0.60) mg/L FEU Sodium (137-145) mmol/L Potassium (3.5-5.1) mmol/L Chloride (98-107) mmol/L Carbon Dioxide (22-30) mmol/L Anion Gap mmol/L BUN (9-20) mg/dL Creatinine (0.66-1.25) mg/dL Est GFR (CKD-EPI)AfAm (>60 ml/min/1.73 sqM) Est GFR (CKD-EPI)NonAf (>60 ml/min/1.73 sqM) Glucose (74-99) mg/dL POC Glucose (mg/dL) (70-110) mg/dL POC Glu Machine Milker ID Plasma Lactic Acid Michael (0.7-2.0) mmol/L Calcium (8.4-10.2) mg/dL Total Bilirubin (0.2-1.3) mg/dL AST (17-59) U/L ALT (4-49) U/L Alkaline Phosphatase (38-126) U/L Lactate Dehydrogenase 522 (313-618) U/L Troponin I <0.012 (0.000-0.034) ng/mL NT-Pro-B Natriuret Pep pg/mL Total Protein 7.0 (6.3-8.2) g/dL Albumin (3.5-5.0) g/dL Procalcitonin 0.07 (0.02-0.09) ng/mL Fluid Source Fluid Volume Fluid Appearance Fluid WBC Fluid RBC (Auto) Fld Polynuclear WBCs % % Fluid Lymphocytes % % Fluid Monocytes % % Fluid Eosinophils % % Fluid Basophils % % Fld Mesothelial Cell % % Fluid Other Cells % Body Fluid Glucose Source Fluid Glucose mg/dL Body Fluid Protein Source Fluid Total Protein mg/dL Body Fluid LDH Source Fluid LDH U/L Body Fluid Amylase Source Fluid Amylase U/L Fluid Cholesterol mg/dL Fl Cholesterol Source Influenza Type A (PCR) (Not Detectd) Influenza Type B (PCR) (Not Detectd) RSV (PCR) (Not Detectd) SARS-CoV-2 (PCR) (Not Detectd) 03/01/22 03/01/22 03/01/22 Range/Units 16:48 18:32 20:30 WBC (3.8-10.6) k/uL RBC (4.30-5.90) m/uL Hgb (13.0-17.5) gm/dL Hct (39.0-53.0) % MCV (80.0-100.0) fL MCH (25.0-35.0) pg MCHC (31.0-37.0) g/dL RDW (11.5-15.5) % Plt Count (150-450) k/uL MPV Neutrophils % % Lymphocytes % % Monocytes % % Eosinophils % % Basophils % % Neutrophils # (1.3-7.7) k/uL Lymphocytes # (1.0-4.8) k/uL Monocytes # (0-1.0) k/uL Eosinophils # (0-0.7) k/uL Basophils # (0-0.2) k/uL Hypochromasia Anisocytosis Microcytosis PT (9.0-12.0) sec INR (<1.2) APTT (22.0-30.0) sec D-Dimer (<0.60) mg/L FEU Sodium (137-145) mmol/L Potassium (3.5-5.1) mmol/L Chloride (98-107) mmol/L Carbon Dioxide (22-30) mmol/L Anion Gap mmol/L BUN (9-20) mg/dL Creatinine (0.66-1.25) mg/dL Est GFR (CKD-EPI)AfAm (>60 ml/min/1.73 sqM) Est GFR (CKD-EPI)NonAf (>60 ml/min/1.73 sqM) Glucose (74-99) mg/dL POC Glucose (mg/dL) 414 H 334 H (70-110) mg/dL POC Glu Machine Milker ID Mercedez Iglesias Jenna Plasma Lactic Acid Michael (0.7-2.0) mmol/L Calcium (8.4-10.2) mg/dL Total Bilirubin (0.2-1.3) mg/dL AST (17-59) U/L ALT (4-49) U/L Alkaline Phosphatase (38-126) U/L Lactate Dehydrogenase (313-618) U/L Troponin I <0.012 (0.000-0.034) ng/mL NT-Pro-B Natriuret Pep pg/mL Total Protein (6.3-8.2) g/dL Albumin (3.5-5.0) g/dL Procalcitonin (0.02-0.09) ng/mL Fluid Source Fluid Volume Fluid Appearance Fluid WBC Fluid RBC (Auto) Fld Polynuclear WBCs % % Fluid Lymphocytes % % Fluid Monocytes % % Fluid Eosinophils % % Fluid Basophils % % Fld Mesothelial Cell % % Fluid Other Cells % Body Fluid Glucose Source Fluid Glucose mg/dL Body Fluid Protein Source Fluid Total Protein mg/dL Body Fluid LDH Source Fluid LDH U/L Body Fluid Amylase Source Fluid Amylase U/L Fluid Cholesterol mg/dL Fl Cholesterol Source Influenza Type A (PCR) (Not Detectd) Influenza Type B (PCR) (Not Detectd) RSV (PCR) (Not Detectd) SARS-CoV-2 (PCR) (Not Detectd) 03/01/22 03/02/22 03/02/22 Range/Units 23:13 01:38 06:26 WBC (3.8-10.6) k/uL RBC (4.30-5.90) m/uL Hgb (13.0-17.5) gm/dL Hct (39.0-53.0) % MCV (80.0-100.0) fL MCH (25.0-35.0) pg MCHC (31.0-37.0) g/dL RDW (11.5-15.5) % Plt Count (150-450) k/uL MPV Neutrophils % % Lymphocytes % % Monocytes % % Eosinophils % % Basophils % % Neutrophils # (1.3-7.7) k/uL Lymphocytes # (1.0-4.8) k/uL Monocytes # (0-1.0) k/uL Eosinophils # (0-0.7) k/uL Basophils # (0-0.2) k/uL Hypochromasia Anisocytosis Microcytosis PT (9.0-12.0) sec INR (<1.2) APTT (22.0-30.0) sec D-Dimer (<0.60) mg/L FEU Sodium (137-145) mmol/L Potassium (3.5-5.1) mmol/L Chloride (98-107) mmol/L Carbon Dioxide (22-30) mmol/L Anion Gap mmol/L BUN (9-20) mg/dL Creatinine (0.66-1.25) mg/dL Est GFR (CKD-EPI)AfAm (>60 ml/min/1.73 sqM) Est GFR (CKD-EPI)NonAf (>60 ml/min/1.73 sqM) Glucose (74-99) mg/dL POC Glucose (mg/dL) 308 H 276 H 98 (70-110) mg/dL POC Glu Machine Milker Nishi Hernandez Jenna McMillin, Julia Plasma Lactic Acid Michael (0.7-2.0) mmol/L Calcium (8.4-10.2) mg/dL Total Bilirubin (0.2-1.3) mg/dL AST (17-59) U/L ALT (4-49) U/L Alkaline Phosphatase (38-126) U/L Lactate Dehydrogenase (313-618) U/L Troponin I (0.000-0.034) ng/mL NT-Pro-B Natriuret Pep pg/mL Total Protein (6.3-8.2) g/dL Albumin (3.5-5.0) g/dL Procalcitonin (0.02-0.09) ng/mL Fluid Source Fluid Volume Fluid Appearance Fluid WBC Fluid RBC (Auto) Fld Polynuclear WBCs % % Fluid Lymphocytes % % Fluid Monocytes % % Fluid Eosinophils % % Fluid Basophils % % Fld Mesothelial Cell % % Fluid Other Cells % Body Fluid Glucose Source Fluid Glucose mg/dL Body Fluid Protein Source Fluid Total Protein mg/dL Body Fluid LDH Source Fluid LDH U/L Body Fluid Amylase Source Fluid Amylase U/L Fluid Cholesterol mg/dL Fl Cholesterol Source Influenza Type A (PCR) (Not Detectd) Influenza Type B (PCR) (Not Detectd) RSV (PCR) (Not Detectd) SARS-CoV-2 (PCR) (Not Detectd) 03/02/22 03/02/22 Range/Units 07:04 07:04 WBC 7.8 (3.8-10.6) k/uL RBC 3.44 L (4.30-5.90) m/uL Hgb 8.2 L (13.0-17.5) gm/dL Hct 27.3 L (39.0-53.0) % MCV 79.4 L (80.0-100.0) fL MCH 23.8 L (25.0-35.0) pg MCHC 30.0 L (31.0-37.0) g/dL RDW 18.7 H (11.5-15.5) % Plt Count 481 H (150-450) k/uL MPV 7.6 Neutrophils % 74 % Lymphocytes % 15 % Monocytes % 6 % Eosinophils % 1 % Basophils % 1 % Neutrophils # 5.8 (1.3-7.7) k/uL Lymphocytes # 1.2 (1.0-4.8) k/uL Monocytes # 0.5 (0-1.0) k/uL Eosinophils # 0.1 (0-0.7) k/uL Basophils # 0.1 (0-0.2) k/uL Hypochromasia Marked Anisocytosis Slight Microcytosis Slight PT (9.0-12.0) sec INR (<1.2) APTT (22.0-30.0) sec D-Dimer (<0.60) mg/L FEU Sodium 137 (137-145) mmol/L Potassium 4.4 (3.5-5.1) mmol/L Chloride 102 (98-107) mmol/L Carbon Dioxide 31 H (22-30) mmol/L Anion Gap 4 mmol/L BUN 21 H (9-20) mg/dL Creatinine 0.97 (0.66-1.25) mg/dL Est GFR (CKD-EPI)AfAm >90 (>60 ml/min/1.73 sqM) Est GFR (CKD-EPI)NonAf 85 (>60 ml/min/1.73 sqM) Glucose 58 L (74-99) mg/dL POC Glucose (mg/dL) (70-110) mg/dL POC Glu Machine Milker ID Plasma Lactic Acid Michael (0.7-2.0) mmol/L Calcium 8.4 (8.4-10.2) mg/dL Total Bilirubin (0.2-1.3) mg/dL AST (17-59) U/L ALT (4-49) U/L Alkaline Phosphatase (38-126) U/L Lactate Dehydrogenase 445 (313-618) U/L Troponin I (0.000-0.034) ng/mL NT-Pro-B Natriuret Pep pg/mL Total Protein (6.3-8.2) g/dL Albumin (3.5-5.0) g/dL Procalcitonin (0.02-0.09) ng/mL Fluid Source Fluid Volume Fluid Appearance Fluid WBC Fluid RBC (Auto) Fld Polynuclear WBCs % % Fluid Lymphocytes % % Fluid Monocytes % % Fluid Eosinophils % % Fluid Basophils % % Fld Mesothelial Cell % % Fluid Other Cells % Body Fluid Glucose Source Fluid Glucose mg/dL Body Fluid Protein Source Fluid Total Protein mg/dL Body Fluid LDH Source Fluid LDH U/L Body Fluid Amylase Source Fluid Amylase U/L Fluid Cholesterol mg/dL Fl Cholesterol Source Influenza Type A (PCR) (Not Detectd) Influenza Type B (PCR) (Not Detectd) RSV (PCR) (Not Detectd) SARS-CoV-2 (PCR) (Not Detectd) Coagulation 03/01/22 Range/Units 12:49 PT 9.5 (9.0-12.0) sec APTT 27.6 (22.0-30.0) sec CBC 03/01/22 03/02/22 Range/Units 12:49 07:04 WBC 13.3 H 7.8 (3.8-10.6) k/uL RBC 3.90 L 3.44 L (4.30-5.90) m/uL Hgb 9.6 L 8.2 L (13.0-17.5) gm/dL Hct 31.3 L 27.3 L (39.0-53.0) % Plt Count 505 H 481 H (150-450) k/uL Comprehensive Metabolic Panel 03/01/22 03/01/22 03/02/22 Range/Units 12:49 15:09 07:04 Sodium 134 L 137 (137-145) mmol/L Potassium 4.5 4.4 (3.5-5.1) mmol/L Chloride 101 102 (98-107) mmol/L Carbon Dioxide 27 31 H (22-30) mmol/L BUN 18 21 H (9-20) mg/dL Creatinine 0.66 0.97 (0.66-1.25) mg/dL Glucose 312 H 58 L (74-99) mg/dL Calcium 8.2 L 8.4 (8.4-10.2) mg/dL AST 22 (17-59) U/L ALT 23 (4-49) U/L Alkaline Phosphatase 209 H (38-126) U/L Total Protein 6.7 7.0 (6.3-8.2) g/dL Albumin 3.3 L (3.5-5.0) g/dL Current Medications Generic Name Dose Route Start Last Admin Trade Name Freq PRN Reason Stop Dose Admin Acetaminophen 650 mg 03/02/22 00:42 Acetaminophen Tab 325 Mg Tab PO Q6H PRN Pain Albuterol/Ipratropium 3 ml 03/01/22 16:00 03/01/22 19:49 Ipratropium-Albuterol 3 Ml Neb INHALATION 3 ml RT-QID ERIN Administration Albuterol/Ipratropium 3 ml 03/01/22 14:11 Ipratropium-Albuterol 3 Ml Neb INHALATION RT-Q4H PRN shortness of breath Aspirin 325 mg 03/02/22 09:00 Aspirin 325 Mg Tab PO DAILY ERIN Atorvastatin Calcium 20 mg 03/01/22 21:00 03/01/22 20:38 Atorvastatin 20 Mg Tab PO 20 mg HS ERIN Administration Furosemide 20 mg 03/02/22 09:00 Furosemide 10 Mg/Ml 2 Ml Vial IV Q12HR ERIN Heparin Sodium (Porcine) 5,000 unit 03/01/22 21:00 03/01/22 20:38 Heparin Sodium,Porcine/Pf 5,000 Unit/0.5 Ml Syringe SQ 5,000 unit Q12HR ERIN Administration Piperacillin Sod/Tazobactam 100 mls @ 25 mls/hr 03/02/22 00:00 03/01/22 23:22 Sod 3.375 gm/ Sodium Chloride IVPB 03/06/22 16:01 25 mls/hr Q8HR ERIN Administration Protocol Insulin Aspart 0 unit 03/01/22 17:30 03/02/22 06:29 Insulin Aspart (Novolog) 100 Unit/Ml Vial SQ Not Given ACHS ERIN Protocol Insulin Detemir 50 unit 03/01/22 21:00 03/01/22 20:38 Insulin Detemir (Levemir) 100 Unit/Ml Syr SQ 50 unit HS ERIN Administration Latanoprost 1 drops 03/02/22 01:00 03/02/22 06:26 Latanoprost 0.005% Ophth Drops 2.5 Ml Btl BOTH EYES Not Given HS ERIN Miscellaneous Information 1 each 03/01/22 14:11 Pneumonia Protocol Utilized 1 Each Misc PO ONCE PRN Per Protocol Nitroglycerin 1 inch 03/01/22 14:15 03/01/22 20:38 Nitroglycerin Oint 1 Inch/Gm Packet TOPICAL 1 inch QID ERIN Administration Ondansetron HCl 4 mg 03/01/22 17:08 Ondansetron 4 Mg Tab PO Q8H PRN Nausea Pantoprazole Sodium 40 mg 03/02/22 06:00 03/02/22 06:26 Pantoprazole 40 Mg Tablet PO 40 mg BID@0600,2100 ERIN Administration Phenytoin Sodium 200 mg 03/01/22 21:00 03/01/22 20:38 Phenytoin Sodium Extended 100 Mg Cap PO 200 mg BID ERIN Administration Pioglitazone HCl 15 mg 03/02/22 09:00 Pioglitazone 15 Mg Tab PO DAILY ERIN Intake and Output 03/01/22 03/02/22 03/02/22 22:59 06:59 14:59 Other: Voiding Method Urinal Urinal # Voids 2 2 Weight 51.81 kg 51.6 kg 03/02/22 07:04 03/02/22 07:04
--- NOTE | 2022-03-02 12:13 | P.PN ---
Subjective Progress Note Date: 03/02/22 Principal diagnosis: Bilateral pleural effusions this is a 61-year-old white male with history of chronic right foot diabetic foot ulcers, history of peripheral vessel occlusive disease,diabetes, patient is at the [facility] receiving IV antibiotics via PICC line for his right foot diabetic ulcer. Patient presented to the ER today with 1 week history of shortness of breath and cough.describes the cough as nonproductive cough mostly dry cough, denies any fever or chills, denies any chest pain, no hemoptysis, no nausea, no vomiting, no abdominal pain.chest x-ray in the ER showed evidence of bilateral interstitial type of edema, pleural effusions, right more than left pleural effusions noted,perihilar opacities noted especially in the right lungpatient was noted to have a bit of a leukocytosis with WBC count of 13.3 hemoglobin 9.6.d-dimer 1.15BNP level normal. Screening for influenza A, influenza B, RSV, and COVID-19 were all negative. I happened to be in the ER at the time, I evaluated the patient, and I went ahead and performed a right sided thoracentesis with ultrasound guidance, and I was able to get 950 mL of light. Make looking fluid which was sent for different diagnostic studiesin the meantime the patient will be admitted, he'll be placed on antibiotics/Zosyn empirically, and he'll be placed on updrafts. Patient was reevaluated today on 03/02/22, patient underwent uneventful right sided thoracentesis yesterday, the fluid came back transudate of in nature, cholesterol level is low, triglyceride level is pending, the fluid looked like be anemic, hence I was concerned about the possibility of chylothorax. So far the triglyceride level is pending, if more than 110, this will imply chylothorax, and the differential diagnoses will completely point towards possible malignancy. However if the fluid does not seem to be chylothorax, then I believe the fluid is most likely cardiac in nature. Looking back at the patient few months ago, he had a similar presentation with bilateral pleural effusions treated mostly with diuretics. And the fluids have completely resolved. Hence I'm recommending that we start the patient on a low dose of Lasix today, and keep an eye on his chest x-ray in the next couple of days. Clinically the patient is doing well, triglycerides on the pleural effusion are pending. Patient is mostly on antibiotics for his foot cellulitis, and not for his lungs. Pro calcitonin level came back normal. WBC count is 7.8 hemoglobin 8.2 electrolytes are normal renal profile is normal, initial report on the fluid came back mostly transudate of in nature. Objective - Vital Signs Vital signs: Vital Signs Temp 98.0 F 03/02/22 08:00 Pulse 100 03/02/22 09:30 Resp 18 03/02/22 08:00 BP 138/78 03/02/22 08:00 Pulse Ox 98 03/02/22 09:19 FiO2 Intake & Output 03/01/22 03/02/22 03/02/22 18:59 06:59 18:59 Intake Total 180 Balance 180 Weight 51.81 kg 51.6 kg Intake: Oral 180 Other: Voiding Method Urinal Urinal Urinal # Voids 2 - Exam Physical Exam: Revealed 61-year-old white male in no distress , on 4 L nasal cannula cut down to 2 L and maintaining good O2 saturation Head: Atraumatic, normocephalic. HEENT:[Neck is supple.] [No neck masses.] [No thyromegaly.] [No JVD.] Chest: Clear bilaterally no rhonchi and no wheezes Cardiac Exam: [Normal S1 and S2, no S3 gallop, no murmur.] Abdomen: [Soft, nontender, no megaly, no rebound, no guarding, normal bowel sounds.] Extremities: [No clubbing, no edema, no cyanosis.]right foot is wrapped with sterile dressing, could not visualize the ulcers Neurological Exam: [No focal neurologic deficit.]alert oriented 3. psychiatric: Normal mood, affect and normal mental status examination. Skin ulcers on right foot which could not be examined because of being wrapped with sterile dry - Labs CBC & Chem 7: 03/02/22 07:04 03/02/22 07:04 Labs: Abnormal Lab Results - Last 24 Hours (Table) 03/01/22 03/01/22 03/01/22 Range/Units 12:49 12:49 12:49 WBC 13.3 H (3.8-10.6) k/uL RBC 3.90 L (4.30-5.90) m/uL Hgb 9.6 L (13.0-17.5) gm/dL Hct 31.3 L (39.0-53.0) % MCV (80.0-100.0) fL MCH 24.5 L (25.0-35.0) pg MCHC 30.6 L (31.0-37.0) g/dL RDW 18.5 H (11.5-15.5) % Plt Count 505 H (150-450) k/uL Neutrophils # 12.0 H (1.3-7.7) k/uL Lymphocytes # 0.6 L (1.0-4.8) k/uL D-Dimer 1.15 H (<0.60) mg/L FEU Sodium 134 L (137-145) mmol/L Carbon Dioxide (22-30) mmol/L BUN (9-20) mg/dL Glucose 312 H (74-99) mg/dL POC Glucose (mg/dL) (70-110) mg/dL Calcium 8.2 L (8.4-10.2) mg/dL Total Bilirubin <0.1 L (0.2-1.3) mg/dL Alkaline Phosphatase 209 H (38-126) U/L Albumin 3.3 L (3.5-5.0) g/dL 03/01/22 03/01/22 03/01/22 Range/Units 16:48 20:30 23:13 WBC (3.8-10.6) k/uL RBC (4.30-5.90) m/uL Hgb (13.0-17.5) gm/dL Hct (39.0-53.0) % MCV (80.0-100.0) fL MCH (25.0-35.0) pg MCHC (31.0-37.0) g/dL RDW (11.5-15.5) % Plt Count (150-450) k/uL Neutrophils # (1.3-7.7) k/uL Lymphocytes # (1.0-4.8) k/uL D-Dimer (<0.60) mg/L FEU Sodium (137-145) mmol/L Carbon Dioxide (22-30) mmol/L BUN (9-20) mg/dL Glucose (74-99) mg/dL POC Glucose (mg/dL) 414 H 334 H 308 H (70-110) mg/dL Calcium (8.4-10.2) mg/dL Total Bilirubin (0.2-1.3) mg/dL Alkaline Phosphatase (38-126) U/L Albumin (3.5-5.0) g/dL 03/02/22 03/02/22 03/02/22 Range/Units 01:38 07:04 07:04 WBC (3.8-10.6) k/uL RBC 3.44 L (4.30-5.90) m/uL Hgb 8.2 L (13.0-17.5) gm/dL Hct 27.3 L (39.0-53.0) % MCV 79.4 L (80.0-100.0) fL MCH 23.8 L (25.0-35.0) pg MCHC 30.0 L (31.0-37.0) g/dL RDW 18.7 H (11.5-15.5) % Plt Count 481 H (150-450) k/uL Neutrophils # (1.3-7.7) k/uL Lymphocytes # (1.0-4.8) k/uL D-Dimer (<0.60) mg/L FEU Sodium (137-145) mmol/L Carbon Dioxide 31 H (22-30) mmol/L BUN 21 H (9-20) mg/dL Glucose 58 L (74-99) mg/dL POC Glucose (mg/dL) 276 H (70-110) mg/dL Calcium (8.4-10.2) mg/dL Total Bilirubin (0.2-1.3) mg/dL Alkaline Phosphatase (38-126) U/L Albumin (3.5-5.0) g/dL 03/02/22 03/02/22 Range/Units 08:59 09:22 WBC (3.8-10.6) k/uL RBC (4.30-5.90) m/uL Hgb (13.0-17.5) gm/dL Hct (39.0-53.0) % MCV (80.0-100.0) fL MCH (25.0-35.0) pg MCHC (31.0-37.0) g/dL RDW (11.5-15.5) % Plt Count (150-450) k/uL Neutrophils # (1.3-7.7) k/uL Lymphocytes # (1.0-4.8) k/uL D-Dimer (<0.60) mg/L FEU Sodium (137-145) mmol/L Carbon Dioxide (22-30) mmol/L BUN (9-20) mg/dL Glucose (74-99) mg/dL POC Glucose (mg/dL) 59 L 66 L (70-110) mg/dL Calcium (8.4-10.2) mg/dL Total Bilirubin (0.2-1.3) mg/dL Alkaline Phosphatase (38-126) U/L Albumin (3.5-5.0) g/dL Assessment and Plan Assessment: impression: Shortness of breath with abnormal CT of the chest and chest x-ray showing bilateral opacities and pleural effusions, status post right sided thoracentesis, and the pleural effusion seems to be suspicious for chylothorax. However triglyceride level is pending. Nonspecific mediastinal and axillary adenopathy, will need to be further evaluated, underlying malignancy to be considered. If the fluid is truly chylothorax, this may imply that we may be dealing with lymphoma and the workup should proceed that way to rule out lymphoma. However considering the fluid was present a few months ago very similar presentation and resolved with diuretics, I will restart the patient back on diuretics low dose. In the meantime I'm waiting for the triglycerides level to come back on the fluid. right foot cellulitis and skin ulcers/diabetic foot ulcers patient is on Unasyn on outpatient basis via PICC line. insulin-dependent diabetes. History of seizure disorder possibleOsteomyelitis right foot. Recommendation: Low dose Lasix 20 mg twice a day Continue antibiotics, this is mostly for his cellulitis and foot ulcers Continue Unasyn/Zosyn for now. Will follow. Time with Patient: Less than 30
--- NOTE | 2022-03-02 14:30 | P.PN ---
Subjective Progress Note Date: 03/02/22 Principal diagnosis: Right foot osteomyelitis and question of pneumonia Patient is a 61-year-old male with multiple comorbidities including diabetes mellitus the patient did have right diabetic foot infection with a nonhealing wound on the plantar aspect of the right foot and underlying osteomyelitis in this patient who is status post debridement of the wound local culture positive for Enterococcus faecalis patient did get a PICC line and was advised six-week course of IV Unasyn with the patient was currently [facility] patient apparently has been sent to the ER for evaluation of increasing shortness of breath, patient noticed to have a right-sided effusion status post thoracocentesis and there is concern for possible chylothorax throat is mostly transudate and the patient did have normal pro- calcitonin. On today's evaluation her that is 03/02/2022, the patient denies having any fever or any chills, the patient is breathing comfortably on nasal cannula oxygen patient denies having any chest pain or worsening cough or sputum produ ction no nausea no vomiting no abdominal pain or any worsening pain to the right foot ulcer Objective - Vital Signs Vital signs: Vital Signs Temp 98.0 F 03/02/22 08:00 Pulse 100 03/02/22 12:32 Resp 18 03/02/22 08:00 BP 138/78 03/02/22 08:00 Pulse Ox 98 03/02/22 09:19 FiO2 Intake & Output 03/01/22 03/02/22 03/02/22 18:59 06:59 18:59 Intake Total 360 Balance 360 Weight 51.81 kg 51.6 kg Intake: Oral 360 Other: Voiding Method Urinal Urinal Urinal # Voids 2 - Exam GENERAL DESCRIPTION: Middle-aged male lying in bed in no distress RESPIRATORY SYSTEM: Unlabored breathing , decreased breath sounds at bases HEART: S1 S2 regular rate and rhythm , ABDOMEN: Soft , no tenderness EXTREMITIES: Right foot wound is currently dressed no drainage on the dressing - Labs CBC & Chem 7: 03/02/22 07:04 03/02/22 07:04 Labs: Abnormal Lab Results - Last 24 Hours (Table) 03/01/22 03/01/22 03/01/22 Range/Units 16:48 20:30 23:13 RBC (4.30-5.90) m/uL Hgb (13.0-17.5) gm/dL Hct (39.0-53.0) % MCV (80.0-100.0) fL MCH (25.0-35.0) pg MCHC (31.0-37.0) g/dL RDW (11.5-15.5) % Plt Count (150-450) k/uL Carbon Dioxide (22-30) mmol/L BUN (9-20) mg/dL Glucose (74-99) mg/dL POC Glucose (mg/dL) 414 H 334 H 308 H (70-110) mg/dL 03/02/22 03/02/22 03/02/22 Range/Units 01:38 07:04 07:04 RBC 3.44 L (4.30-5.90) m/uL Hgb 8.2 L (13.0-17.5) gm/dL Hct 27.3 L (39.0-53.0) % MCV 79.4 L (80.0-100.0) fL MCH 23.8 L (25.0-35.0) pg MCHC 30.0 L (31.0-37.0) g/dL RDW 18.7 H (11.5-15.5) % Plt Count 481 H (150-450) k/uL Carbon Dioxide 31 H (22-30) mmol/L BUN 21 H (9-20) mg/dL Glucose 58 L (74-99) mg/dL POC Glucose (mg/dL) 276 H (70-110) mg/dL 03/02/22 03/02/22 Range/Units 08:59 09:22 RBC (4.30-5.90) m/uL Hgb (13.0-17.5) gm/dL Hct (39.0-53.0) % MCV (80.0-100.0) fL MCH (25.0-35.0) pg MCHC (31.0-37.0) g/dL RDW (11.5-15.5) % Plt Count (150-450) k/uL Carbon Dioxide (22-30) mmol/L BUN (9-20) mg/dL Glucose (74-99) mg/dL POC Glucose (mg/dL) 59 L 66 L (70-110) mg/dL Assessment and Plan (1) Diabetic foot ulcer Current Visit: No Status: Acute Code(s): E11.621 - TYPE 2 DIABETES MELLITUS WITH FOOT ULCER; L97.509 - NON-PRESSURE CHRONIC ULCER OTH PRT UNSP FOOT W UNSP SEVERITY SNOMED Code(s): 422415481 (2) Infected wound Current Visit: No Status: Acute Code(s): T14.8XXA - OTHER INJURY OF UN SPECIFIED BODY REGION, INITIAL ENCOUNTER; L08.9 - LOCAL INFECTION OF THE SKIN AND SUBCUTANEOUS TISSUE, UNSP SNOMED Code(s): 74454311 Plan: 1patient with right diabetic foot infection with underlying ostial myelitis secondary to Enterococcus faecalis for the patient was currently getting Unasyn and local [facility] patient right foot plantar wound seems to be healing well without evidence of any surrounding redness or any foul-smelling drainage. 2patient no with right-sided effusion possibly related to cardiac etiology currently waiting for the triglyceride to rule out chylothorax with a normal pro-calcitonin will make pneumonia less likely 3 local wound care to the right foot plantar wound with Aquacel silver dressing changed every 48 hour. 4we will switch her antibiotic therapy to Unasyn to cover for his right foot osteo-myelitis as clinically suspicious low for pneumonia Time with Patient: Less than 30
[2022-03-02 16:39] LABS: Glucose,Whole Blood 130 mg/dL (70-110)
[2022-03-02] MEDS: AMPICILLIN-SULBACTAM 3 GM in SODIUM CHLORIDE 0.9% 100 ML IVPB SCH (18:05)
[2022-03-02 20:00] LABS: Glucose,Whole Blood 157 mg/dL (70-110)
[2022-03-02] MEDS: ATORVASTATIN 20 MG TAB PO SCH (21:23)
[2022-03-03] MEDS: AMPICILLIN-SULBACTAM 3 GM in SODIUM CHLORIDE 0.9% 100 ML IVPB SCH ×5 (00:42→23:38)
[2022-03-03] MEDS: LATANOPROST 0.005% OPHTH DROPS 2.5 ML BTL BOTH EYES SCH ×2 (00:43→21:04)
[2022-03-03 02:27] LABS: Glucose,Whole Blood 223 mg/dL (70-110)
[2022-03-03 06:03] LABS: Glucose,Whole Blood 237 mg/dL (70-110)
[2022-03-03] MEDS: INSULIN DETEMIR (LEVEMIR) 100 UNIT/ML SYR SQ SCH ×2 (06:56→21:04)
[2022-03-03] MEDS: INSULIN ASPART (NovoLOG) 100 UNIT/ML VIAL SQ SCH ×4 (06:56→21:04)
[2022-03-03] MEDS: PANTOPRAZOLE 40 MG TABLET PO SCH ×2 (06:56→21:03)
[2022-03-03] MEDS: IPRATROPIUM-ALBUTEROL 3 ML NEB INHALATION SCH ×4 (07:23→19:57)
[2022-03-03] MEDS: HEPARIN SODIUM,PORCINE/PF 5,000 UNIT/0.5 ML SYRINGE SQ SCH ×2 (08:20→21:03)
[2022-03-03] MEDS: FUROSEMIDE 10 MG/ML 2 ML VIAL IV SCH ×2 (08:21→21:03)
[2022-03-03] MEDS: PHENYTOIN SODIUM EXTENDED 100 MG CAP PO SCH ×2 (08:21→21:03)
[2022-03-03] MEDS: ASPIRIN 325 MG TAB PO SCH (08:21)
[2022-03-03] MEDS: PIOGLITAZONE 15 MG TAB PO SCH (08:21)
[2022-03-03] MEDS: NITROGLYCERIN OINT 1 INCH/GM PACKET TOPICAL SCH ×4 (08:21→21:04)
--- NOTE | 2022-03-03 08:23 | XR ---
EXAMINATION TYPE: XR chest 1V portable DATE OF EXAM: 03/03/2022 8:17 AM COMPARISON: Chest radiograph from one day prior. TECHNIQUE: XR chest 1V portable Portable AP radiograph of the chest. CLINICAL INDICATION:Male, 61 years old with history of pleural effusion; FINDINGS: Lungs/Pleura: There is no evidence of or pneumothorax. Small left pleural effusion. Scattered airspa ce opacities in the right lung. Pulmonary vascularity: Unremarkable. Heart/mediastinum: Cardiomediastinal silhouette is unremarkable. Musculoskeletal: No acute osseous pathology. Lines/Tubes: Right-sided PICC line with distal tip at the cavoatrial junction. IMPRESSION: 1. Persistent right airspace opacities which have increased from prior. 2. Right PICC distal tip in appropriate position. 3. Small left pleural effusion.
[2022-03-03 08:44] LABS: Anisocytosis Slight; Basophils # (A) 0.1 k/uL (0-0.2); Basophils % (A) 1 %; Eosinophils # (A) 0.2 k/uL (0-0.7); Eosinophils % (A) 2 %; HCT 29.4 % (39.0-53.0); HGB 8.9 gm/dL (13.0-17.5); Hypochromasia Marked; Lymphocytes # (A) 1.4 k/uL (1.0-4.8); Lymphocytes % (A) 15 %; MCH 24.7 pg (25.0-35.0); MCHC 30.2 g/dL (31.0-37.0); MCV 81.7 fL (80.0-100.0); Mean Platelet Volume 7.1; Microcytosis Slight; Monocytes # (A) 0.6 k/uL (0-1.0); Monocytes % (A) 6 %; Neutrophils # (A) 6.7 k/uL (1.3-7.7); Neutrophils % (A) 74 %; Platelet Count 523 k/uL (150-450); RBC 3.59 m/uL (4.30-5.90); RDW 18.4 % (11.5-15.5); WBC 9.1 k/uL (3.8-10.6)
[2022-03-03 08:56] LABS: African American GFR (CKD) >90 (>60 ml/min/1.73 sqM); Anion Gap 6 mmol/L; Blood Urea Nitrogen 25 mg/dL (9-20); Calcium 8.4 mg/dL (8.4-10.2); Carbon Dioxide 30 mmol/L (22-30); Chloride 99 mmol/L (98-107); Glucose 279 mg/dL (74-99); Non-African American GFR(CKD) 85 (>60 ml/min/1.73 sqM); Sodium 135 mmol/L (137-145)
--- NOTE | 2022-03-03 12:07 | CA ---
Transthoracic Echo Report Name: Pietro Ryder Age: 61 Gender: M : 1960 Exam Date: 03/03/2022 09:20 Exam Location: [facility] Ht (in): 65 Wt (lb): 111 Ordering Physician: Liza Singh Attending/Referring Phys: [id number], [employer] Karrie Sexton, RDCS Procedure CPT: Indications: LVF Cardiac Hx: Technical Quality: Contrast 1: Total Dose (mL): Contrast 2: Total Dose (mL): MEASUREMENTS (Male / Female) Normal Values 2D ECHO LV Diastolic Diameter PLAX 4.2 cm 4.2 - 5.9 / 3.9 - 5.3 cm LV Systolic Diameter PLAX 3.5 cm IVS Diastolic Thickness 0.8 cm 0.6 - 1.0 / 0.6 - 0.9 cm LVPW Diastolic Thickness 1.1 cm 0.6 - 1.0 / 0.6 - 0.9 cm LV Relative Wall Thickness 0.5 RV Internal Dim ED PLAX 2.9 cm LA Systolic Diameter LX 3.0 cm 3.0 - 4.0 / 2.7 - 3.8 cm LV Diastolic Volume MOD 4C 49.0 cm??? LV Systolic Volume MOD 4C 33.1 cm??? LV Ejection Fraction MOD 4C 32.4 % LV Diastolic Length 4C 7.2 cm LV Systolic Length 4C 6.6 cm M-MODE Aortic Root Diameter MM 2.8 cm LA Systolic Diameter MM 2.6 cm LA Ao Ratio MM 0.9 MV E Point Septal Separation 1.3 cm AV Cusp Separation MM 1.6 cm DOPPLER MV E' Velocity 6.9 cm/s TR Peak Velocity 215.5 cm/s TR Peak Gradient 18.6 mmHg Right Ventricular Systolic Press 23.6 mmHg FINDINGS Left Ventricle Normal left ventricular size, wall thickness, systolic function with no obvious regional wall motion abnormalities. Left ventricular ejection fraction is estimated at 55 %. Right Ventricle The right ventricle is normal in size and function. Right ventricular systolic pressure within normal limits. Right Atrium The right atrium is normal in size. Left Atrium The left atrium is normal in size. Mitral Valve Structurally normal mitral valve without significant stenosis or prolapse. There is mild mitral regurgitation. Aortic Valve Structurally normal aortic valve without significant sclerosis or stenosis. There is no aortic regurgitation. Tricuspid Valve Structurally normal tricuspid valve without significant stenosis. Pulmonary artery systolic pressure is normal. Pulmonic Valve Structurally normal pulmonic valve without significant stenosis. There is no pulmonic regurgitation. Pericardium Normal pericardium without effusion. Pleural Effusion. Aorta Normal aortic root dimension. CONCLUSIONS Normal LV systolic function Previewed by: Dr. John Vivar MD (Electronically Signed) Final Date: 03 March 2022 12:06
[2022-03-03 12:09] LABS: Glucose,Whole Blood 153 mg/dL (70-110)
[2022-03-03 12:10] VITALS: BMI 18.4
--- NOTE | 2022-03-03 12:47 | P.PN ---
Subjective Progress Note Date: 03/03/22 HISTORY OF PRESENT ILLNESS This is a 61-year-old male with past medical history of diabetes mellitus type 2 insulin requiring, hyperlipidemia, gastroesophageal reflux disease, osteomyelitis and chronic wounds to the lower extremity with previous amputation of the left great toe. We've been asked to see the patient regarding heart failure. Patient came to the emergency center due to increasing shortness of breath and cough is nonproductive. He denies having any cardiac history, not seen by radiological equipment specialist, no previous heart catheterization or stress testing. Patient denies any lower extremity edema. Patient is on oxygen at 4 L nasal cannula does not have home O2. He underwent a thoracentesis on the right side on 03/01. Heart rate is 100, but pressure 138/78, pulse ox 90% on 4 L. EKG sinus tachycardia at 117 bpm WBC 13.3, troponin negative 3, BNP 476, creatinine 0.97. CTA was negative for pulmonary embolism but did show lymphadenopathy, + right lower lobe consolidation Repeat chest x-ray today reveals COPD, small left pleural effusion, ongoing multifocal pneumonia. Possible additional developing infiltrates medial right base and left lower lobe. 03/03 Heart rate has been running 100 114. Blood pressure 155/78 pulse ox 95% on 2 L. Hemoglobin 8.9, BUN 25 creatinine 0.97 and potassium 5. Patient states he is not feeling well today. Repeat chest x-ray reveals persistent right airspace opacities which have increased from prior. Right PICC line. Small left pleural effusion. Echocardiogram reveals normal LV systolic function. PHYSICAL EXAMINATION Gen: This is a 61-year-old frail-appearing male. He is resting bed appears to be in no acute distress. VS: reviewed HEENT: Head is atraumatic, normocephalic. Pupils equal, round. Sclerae is anicteric. NECK: Supple. No JVD. No lymphadenopathy. LUNGS: Diminished bilateral lower lobes. No wheezes or rhonchi. No intercostal retractions. HEART: Regular rate and rhythm. No murmur. ABDOMEN: Soft. Bowel sounds are present. No masses. No tenderness. EXTREMITIES: Left great toe amputation, left lower extremity dressing in place and right foot as well. NEUROLOGICAL: Patient is awake, alert and oriented x3. Cranial nerves 2 through 12 are grossly intact. ASSESSMENT Shortness of breath secondary to pleural effusions, status post right-sided thoracentesis Worsening opacities Mediastinal and axillary adenopathy Osteomyelitis right foot Diabetes mellitus insulin requiring PLAN Continue patient on Lasix 20 mg IV every 12 hours Further recommendations to follow based upon clinical course Nurse practitioner note has been reviewed, I agree with documented findings and plan of care. Patient was seen and examined. Objective - Vital Signs Vital signs: Vital Signs Temp 98.5 F 03/03/22 08:00 Pulse 109 H 03/03/22 08:00 Resp 16 03/03/22 08:00 BP 155/78 03/03/22 08:00 Pulse Ox 95 03/03/22 08:00 FiO2 Intake & Output 03/02/22 03/03/22 03/03/22 18:59 06:59 18:59 Intake Total 540 180 Output Total 450 Balance 540 -270 Weight 50.4 kg Intake: Oral 540 180 Output: Urine 450 Other: Voiding Method Urinal Urinal # Voids 2 # Bowel Movements 1 - Labs CBC & Chem 7: 03/03/22 08:02 03/03/22 08:02 Labs: Abnormal Lab Results - Last 24 Hours (Table) 03/02/22 03/02/22 03/03/22 Range/Units 16:38 19:58 02:25 RBC (4.30-5.90) m/uL Hgb (13.0-17.5) gm/dL Hct (39.0-53.0) % MCH (25.0-35.0) pg MCHC (31.0-37.0) g/dL RDW (11.5-15.5) % Plt Count (150-450) k/uL Sodium (137-145) mmol/L BUN (9-20) mg/dL Glucose (74-99) mg/dL POC Glucose (mg/dL) 130 H 157 H 223 H (70-110) mg/dL 03/03/22 03/03/22 03/03/22 Range/Units 06:02 08:02 08:02 RBC 3.59 L (4.30-5.90) m/uL Hgb 8.9 L (13.0-17.5) gm/dL Hct 29.4 L (39.0-53.0) % MCH 24.7 L (25.0-35.0) pg MCHC 30.2 L (31.0-37.0) g/dL RDW 18.4 H (11.5-15.5) % Plt Count 523 H (150-450) k/uL Sodium 135 L (137-145) mmol/L BUN 25 H (9-20) mg/dL Glucose 279 H (74-99) mg/dL POC Glucose (mg/dL) 237 H (70-110) mg/dL Microbiology - Last 24 Hours (Table) 03/01/22 14:40 Blood Culture - Preliminary Blood No Growth after 24 hours 03/01/22 14:25 Blood Culture - Preliminary Blood No Growth after 24 hours
--- NOTE | 2022-03-03 13:00 | P.PN ---
Subjective Progress Note Date: 03/03/22 this is a 61-year-old white male with history of chronic right foot diabetic foot ulcers, history of peripheral vessel occlusive disease,diabetes, patient is at the [facility] receiving IV antibiotics via PICC line for his right foot diabetic ulcer. Patient presented to the ER today with 1 week history of s hortness of breath and cough.describes the cough as nonproductive cough mostly dry cough, denies any fever or chills, denies any chest pain, no hemoptysis, no nausea, no vomiting, no abdominal pain.chest x-ray in the ER showed evidence of bilateral interstitial type of edema, pleural effusions, right more than left pleural effusions noted,perihilar opacities noted especially in the right lungpatient was noted to have a bit of a leukocytosis with WBC count of 13.3 hemoglobin 9.6.d-dimer 1.15BNP level normal. Screening for influenza A, influenza B, RSV, and COVID-19 were all negative. I happened to be in the ER at the time, I evaluated the patient, and I went ahead and performed a right sided thoracentesis with ultrasound guidance, and I was able to get 950 mL of light. Make looking fluid which was sent for different diagnostic studiesin the meantime the patient will be admitted, he'll be placed on antibiotics/Zosyn empirically, and he'll be placed on updrafts. Patient was reevaluated today on 03/02/22, patient underwent uneventful right sided thoracentesis yesterday, the fluid came back transudate of in nature, cholesterol level is low, triglyceride level is pending, the fluid looked like be anemic, hence I was concerned about the possibility of chylothorax. So far the triglyceride level is pending, if more than 110, this will imply chylothorax, and the differential diagnoses will completely point towards possible malignancy. However if the fluid does not seem to be chylothorax, then I believe the fluid is most likely cardiac in nature. Looking back at the patient few months ago, he had a similar presentation with bilateral pleural effusions treated mostly with diuretics. And the fluids have completely resolved. Hence I'm recommending that we start the patient on a low dose of Lasix today, and keep an eye on his chest x-ray in the next couple of days. Clinically the patient is doing well, triglycerides on the pleural effusion are pending. Patient is mostly on antibiotics for his foot cellulitis, and not for his lungs. Pro calcitonin level came back normal. WBC count is 7.8 hemoglobin 8.2 electrolytes are normal renal profile is normal, initial report on the fluid came back mostly transudate of in nature. The patient is seen today 03/03/2022 in follow-up on the selective care unit. He is currently resting fairly comfortably in bed. Awake and alert in no acute distress. He is maintaining O2 saturations in the mid 90s on room air. He's afebrile. Hemodynamically stable. Follow-up chest x-ray reveals persistent right airspace opacities. Right-sided PICC line in place. Small left pleural effusion. Echocardiogram reveals preserved left ventricle systolic function with ejection fraction 55%. No significant valvular abnormalities. White count 9.1. Hemoglobin 8.9. Platelets 523. Sodium 135. Potassium 5.0. BUN 25. Creatinine 0.97. Glucose 279. He remains on Unasyn for his cellulitis. Continued on bronchodilators. Heparin for DVT prophylaxis. Continued on Lasix 20 mg IV every 12 hours. No accurate I&O. Triglyceride levels from the pleural fluid are still pending. Lab was contacted this morning. Awaiting results. Objective - Vital Signs Vital signs: Vital Signs Temp 98.5 F 03/03/22 08:00 Pulse 107 H 03/03/22 12:00 Resp 16 03/03/22 12:00 BP 142/75 03/03/22 12:00 Pulse Ox 95 03/03/22 12:00 FiO2 Intake & Output 03/02/22 03/03/22 03/03/22 18:59 06:59 18:59 Intake Total 540 180 Output Total 450 Balance 540 -270 Weight 50.4 kg 50.4 kg Intake: Oral 540 180 Output: Urine 450 Other: Voiding Method Urinal Urinal Urinal # Voids 2 # Bowel Movements 1 - Exam GENERAL EXAM: Alert, pleasant 61-year-old male, on room air, comfortable in no apparent distress. HEAD: Normocephalic. EYES: Normal reaction of pupils, equal size. NOSE: Clear with pink turbinates. THROAT: No erythema or exudates. NECK: No masses, no JVD. CHEST: No chest wall deformity. LUNGS: Equal air entry with crackles in the right lung base. CVS: S1 and S2 normal with no audible murmur, regular rhythm. ABDOMEN: No hepatosplenomegaly, normal bowel sounds, no guarding or rigidity. SPINE: No scoliosis or deformity SKIN: No rashes CENTRAL NERVOUS SYSTEM: No focal deficits, tone is normal in all 4 extremities. EXTREMITIES: Dressing to the right foot dry and intact. There is no peripheral edema. No clubbing, no cyanosis. Peripheral pulses are intact. - Labs CBC & Chem 7: 03/03/22 08:02 03/03/22 08:02 Labs: Abnormal Lab Results - Last 24 Hours (Table) 03/02/22 03/02/22 03/03/22 Range/Units 16:38 19:58 02:25 RBC (4.30-5.90) m/uL Hgb (13.0-17.5) gm/dL Hct (39.0-53.0) % MCH (25.0-35.0) pg MCHC (31.0-37.0) g/dL RDW (11.5-15.5) % Plt Count (150-450) k/uL Sodium (137-145) mmol/L BUN (9-20) mg/dL Glucose (74-99) mg/dL POC Glucose (mg/dL) 130 H 157 H 223 H (70-110) mg/dL 03/03/22 03/03/22 03/03/22 Range/Units 06:02 08:02 08:02 RBC 3.59 L (4.30-5.90) m/uL Hgb 8.9 L (13.0-17.5) gm/dL Hct 29.4 L (39.0-53.0) % MCH 24.7 L (25.0-35.0) pg MCHC 30.2 L (31.0-37.0) g/dL RDW 18.4 H (11.5-15.5) % Plt Count 523 H (150-450) k/uL Sodium 135 L (137-145) mmol/L BUN 25 H (9-20) mg/dL Glucose 279 H (74-99) mg/dL POC Glucose (mg/dL) 237 H (70-110) mg/dL 03/03/22 Range/Units 12:07 RBC (4.30-5.90) m/uL Hgb (13.0-17.5) gm/dL Hct (39.0-53.0) % MCH (25.0-35.0) pg MCHC (31.0-37.0) g/dL RDW (11.5-15.5) % Plt Count (150-450) k/uL Sodium (137-145) mmol/L BUN (9-20) mg/dL Glucose (74-99) mg/dL POC Glucose (mg/dL) 153 H (70-110) mg/dL Microbiology - Last 24 Hours (Table) 03/01/22 14:40 Blood Culture - Preliminary Blood No Growth after 24 hours 03/01/22 14:25 Blood Culture - Preliminary Blood No Growth after 24 hours Assessment and Plan Assessment: Shortness of breath with abnormal CT of the chest and chest x-ray showing bilateral opacities and pleural effusions, status post right sided thoracentesis, and the pleural effusion seems to be suspicious for chylothorax. However triglyceride level is pending. Lab was contacted today and results are pending. Nonspecific mediastinal and axillary adenopathy, will need to be further evaluated, underlying malignancy to be considered. If the fluid is truly chylothorax, this may imply that we may be dealing with lymphoma and the workup should proceed that way to rule out lymphoma. However considering the fluid was present a few months ago very similar presentation and resolved with diuretics, restarted the patient back on diuretics low dose. In the meantime waiting for the triglycerides level to come back on the fluid. Right foot cellulitis and skin ulcers/diabetic foot ulcers patient is on Unasyn on outpatient basis via PICC line. Insulin-dependent diabetes. History of seizure disorder Possible osteomyelitis right foot. Plan: The patient was seen and evaluated Chest x-ray, labs and medications reviewed Still awaiting triglyceride levels on pleural fluid Remains on diuretics Remains on Unasyn for cellulitis Continued on bronchodilators We will continue to follow I have personally seen and examined the patient, performed the documentation and the assessment and plan as written. Number of minutes spent on the visit: 10.
--- NOTE | 2022-03-03 14:12 | P.PN ---
Subjective Progress Note Date: 03/03/22 Principal diagnosis: Right foot osteomyelitis and question of pneumonia Patient is a 61-year-old male with multiple comorbidities including diabetes mellitus the patient did have right diabetic foot infection with a nonhealing wound on the plantar aspect of the right foot and underlying osteomyelitis in this patient who is status post debridement of the wound local culture positive for Enterococcus faecalis patient did get a PICC line and was advised six-week course of IV Unasyn with the [facility] was [facility] patient apparently has been sent to the ER for evaluation of increasing shortness of breath, patient noticed to have a right-sided effusion status post thoracocentesis and there is concern for possible chylothorax throat is mostly transudate and the patient did have normal pro- calcitonin. On today's evaluation her that is 03/03/2022, the patient remains to be afebrile, the patient is breathing comfortably on room air, patient denies having any chest pain or cough and no sputum production no nausea no vomiting no abdominal pain or any worsening pain to the right foot ulcer Objective - Vital Signs Vital signs: Vital Signs Temp 98.5 F 03/03/22 08:00 Pulse 107 H 03/03/22 12:00 Resp 16 03/03/22 12:00 BP 142/75 03/03/22 12:00 Pulse Ox 95 03/03/22 12:00 FiO2 Intake & Output 03/02/22 03/03/22 03/03/22 18:59 06:59 18:59 Intake Total 540 180 Output Total 450 Balance 540 -270 Weight 50.4 kg 50.4 kg Intake: Oral 540 180 Output: Urine 450 Other: Voiding Method Urinal Urinal Urinal # Voids 2 # Bowel Movements 1 - Exam GENERAL DESCRIPTION: Middle-aged male lying in bed in no distress RESPIRATORY SYSTEM: Unlabored breathing , decreased breath sounds at bases HEART: S1 S2 regular rate and rhythm , ABDOMEN: Soft , no tenderness EXTREMITIES: Right foot wound is currently dressed no drainage on the dressing - Labs CBC & Chem 7: 03/03/22 08:02 03/03/22 08:02 Labs: Abnormal Lab Results - Last 24 Hours (Table) 03/02/22 03/02/22 03/03/22 Range/Units 16:38 19:58 02:25 RBC (4.30-5.90) m/uL Hgb (13.0-17.5) gm/dL Hct (39.0-53.0) % MCH (25.0-35.0) pg MCHC (31.0-37.0) g/dL RDW (11.5-15.5) % Plt Count (150-450) k/uL Sodium (137-145) mmol/L BUN (9-20) mg/dL Glucose (74-99) mg/dL POC Glucose (mg/dL) 130 H 157 H 223 H (70-110) mg/dL 03/03/22 03/03/22 03/03/22 Range/Units 06:02 08:02 08:02 RBC 3.59 L (4.30-5.90) m/uL Hgb 8.9 L (13.0-17.5) gm/dL Hct 29.4 L (39.0-53.0) % MCH 24.7 L (25.0-35.0) pg MCHC 30.2 L (31.0-37.0) g/dL RDW 18.4 H (11.5-15.5) % Plt Count 523 H (150-450) k/uL Sodium 135 L (137-145) mmol/L BUN 25 H (9-20) mg/dL Glucose 279 H (74-99) mg/dL POC Glucose (mg/dL) 237 H (70-110) mg/dL 03/03/22 Range/Units 12:07 RBC (4.30-5.90) m/uL Hgb (13.0-17.5) gm/dL Hct (39.0-53.0) % MCH (25.0-35.0) pg MCHC (31.0-37.0) g/dL RDW (11.5-15.5) % Plt Count (150-450) k/uL Sodium (137-145) mmol/L BUN (9-20) mg/dL Glucose (74-99) mg/dL POC Glucose (mg/dL) 153 H (70-110) mg/dL Microbiology - Last 24 Hours (Table) 03/01/22 14:40 Blood Culture - Preliminary Blood No Growth after 24 hours 03/01/22 14:25 Blood Culture - Preliminary Blood No Growth after 24 hours Assessment and Plan (1) Diabetic foot ulcer Current Visit: No Status: Acute Code(s): E11.621 - TYPE 2 DIABETES MELLITUS WITH FOOT ULCER; L97.509 - NON-PRESSURE CHRONIC ULCER OTH PRT UNSP FOOT W UNSP SEVERITY SNOMED Code(s): 575831581 (2) Infected wound Current Visit: No Status: Acute Code(s): T14.8XXA - OTHER INJURY OF UNSPECIFIED BODY REGION, INITIAL ENCOUNTER; L08.9 - LOCAL INFECTION OF THE SKIN AND SUBCUTANEOUS TISSUE, UNSP SNOMED Code(s): 80038873 Plan: 1patient with right diabetic foot infection with underlying ostial myelitis secondary to Enterococcus faecalis for the patient was currently getting Unasyn and local prison patient right foot plantar wound seems to be healing well without evidence of any surrounding redness or any foul-smelling drainage. 2patient no with right-sided effusion possibly related to cardiac etiology currently waiting for the triglyceride to rule out chylothorax with a normal pro-calcitonin will make pneumonia less likely 3 local wound care to the right foot plantar wound with Aquacel silver dressing changed every 48 hour. 4patient to continue with Unasyn to cover for his right foot osteo-myelitis and monitor clinical course closely Time with Patient: Less than 30
[2022-03-03 16:29] LABS: Glucose,Whole Blood 134 mg/dL (70-110)
[2022-03-03 20:25] LABS: Glucose,Whole Blood 206 mg/dL (70-110)
[2022-03-03] MEDS: ATORVASTATIN 20 MG TAB PO SCH (21:03)
[2022-03-04 02:01] LABS: Glucose,Whole Blood 98 mg/dL (70-110)
[2022-03-04 03:14] LABS: Glucose,Whole Blood 44 mg/dL (70-110)
[2022-03-04 03:34] LABS: Glucose,Whole Blood 33 mg/dL (70-110)
[2022-03-04] MEDS ORDERED: DEXTROSE 50% SYRINGE 50 ML IVP ONE ×3 (03:35→07:43)
[2022-03-04 03:49] LABS: Glucose,Whole Blood 230 mg/dL (70-110)
[2022-03-04] MEDS: AMPICILLIN-SULBACTAM 3 GM in SODIUM CHLORIDE 0.9% 100 ML IVPB SCH ×3 (05:40→17:33)
[2022-03-04] MEDS: PANTOPRAZOLE 40 MG TABLET PO SCH ×2 (05:40→21:48)
[2022-03-04 06:10] LABS: Glucose,Whole Blood 195 mg/dL (70-110)
[2022-03-04] MEDS: INSULIN ASPART (NovoLOG) 100 UNIT/ML VIAL SQ SCH ×4 (06:18→21:49)
[2022-03-04 07:43] LABS: Glucose,Whole Blood 33 mg/dL (70-110)
[2022-03-04] MEDS: IPRATROPIUM-ALBUTEROL 3 ML NEB INHALATION SCH ×4 (07:50→20:16)
[2022-03-04 08:01] LABS: Glucose,Whole Blood 199 mg/dL (70-110)
[2022-03-04] MEDS ORDERED: DEXTROSE 5%-0.45% NACL 1,000 ML IV SCH (08:15)
[2022-03-04 08:38] LABS: Anisocytosis Slight; Basophils # (A) 0.1 k/uL (0-0.2); Basophils % (A) 1 %; Eosinophils # (A) 0.3 k/uL (0-0.7); Eosinophils % (A) 4 %; HCT 30.2 % (39.0-53.0); HGB 9.1 gm/dL (13.0-17.5); Hypochromasia Marked; Lymphocytes # (A) 1.4 k/uL (1.0-4.8); Lymphocytes % (A) 16 %; MCH 24.1 pg (25.0-35.0); MCHC 30.1 g/dL (31.0-37.0); MCV 80.1 fL (80.0-100.0); Microcytosis Slight; Monocytes # (A) 0.5 k/uL (0-1.0); Monocytes % (A) 6 %; Neutrophils % (A) 71 %; Platelet Count 567 k/uL (150-450); RBC 3.77 m/uL (4.30-5.90); RDW 18.3 % (11.5-15.5); WBC 8.5 k/uL (3.8-10.6)
[2022-03-04 08:55] LABS: African American GFR (CKD) >90 (>60 ml/min/1.73 sqM); Anion Gap 7 mmol/L; Blood Urea Nitrogen 22 mg/dL (9-20); Calcium 8.5 mg/dL (8.4-10.2); Carbon Dioxide 31 mmol/L (22-30); Chloride 100 mmol/L (98-107); Glucose 157 mg/dL (74-99); Non-African American GFR(CKD) >90 (>60 ml/min/1.73 sqM); Potassium 4.3 mmol/L (3.5-5.1); Sodium 138 mmol/L (137-145)
[2022-03-04 09:07] LABS: Glucose,Whole Blood 163 mg/dL (70-110)
[2022-03-04] MEDS: ASPIRIN 325 MG TAB PO SCH (10:02)
[2022-03-04] MEDS: HEPARIN SODIUM,PORCINE/PF 5,000 UNIT/0.5 ML SYRINGE SQ SCH ×2 (10:02→21:48)
[2022-03-04] MEDS: PIOGLITAZONE 15 MG TAB PO SCH (10:02)
[2022-03-04] MEDS: FUROSEMIDE 10 MG/ML 2 ML VIAL IV SCH (10:02)
[2022-03-04] MEDS: PHENYTOIN SODIUM EXTENDED 100 MG CAP PO SCH ×2 (10:02→21:48)
[2022-03-04 11:12] LABS: Glucose,Whole Blood 162 mg/dL (70-110)
[2022-03-04] MEDS: NITROGLYCERIN OINT 1 INCH/GM PACKET TOPICAL SCH ×4 (12:42→21:49)
--- NOTE | 2022-03-04 14:22 | P.PN ---
Subjective Progress Note Date: 03/04/22 this is a 61-year-old white male with history of chronic right foot diabetic foot ulcers, history of peripheral vessel occlusive disease,diabetes, patient is at the [facility] receiving IV antibiotics via PICC line for his right foot diabetic ulcer. Patient presented to the ER today with 1 week history of s hortness of breath and cough.describes the cough as nonproductive cough mostly dry cough, denies any fever or chills, denies any chest pain, no hemoptysis, no nausea, no vomiting, no abdominal pain.chest x-ray in the ER showed evidence of bilateral interstitial type of edema, pleural effusions, right more than left pleural effusions noted,perihilar opacities noted especially in the right lungpatient was noted to have a bit of a leukocytosis with WBC count of 13.3 hemoglobin 9.6.d-dimer 1.15BNP level normal. Screening for influenza A, influenza B, RSV, and COVID-19 were all negative. I happened to be in the ER at the time, I evaluated the patient, and I went ahead and performed a right sided thoracentesis with ultrasound guidance, and I was able to get 950 mL of light. Make looking fluid which was sent for different diagnostic studiesin the meantime the patient will be admitted, he'll be placed on antibiotics/Zosyn empirically, and he'll be placed on updrafts. Patient was reevaluated today on 03/02/22, patient underwent uneventful right sided thoracentesis yesterday, the fluid came back transudate of in nature, cholesterol level is low, triglyceride level is pending, the fluid looked like be anemic, hence I was concerned about the possibility of chylothorax. So far the triglyceride level is pending, if more than 110, this will imply chylothorax, and the differential diagnoses will completely point towards possible malignancy. However if the fluid does not seem to be chylothorax, then I believe the fluid is most likely cardiac in nature. Looking back at the patient few months ago, he had a similar presentation with bilateral pleural effusions treated mostly with diuretics. And the fluids have completely resolved. Hence I'm recommending that we start the patient on a low dose of Lasix today, and keep an eye on his chest x-ray in the next couple of days. Clinically the patient is doing well, triglycerides on the pleural effusion are pending. Patient is mostly on antibiotics for his foot cellulitis, and not for his lungs. Pro calcitonin level came back normal. WBC count is 7.8 hemoglobin 8.2 electrolytes are normal renal profile is normal, initial report on the fluid came back mostly transudate of in nature. The patient is seen today 03/03/2022 in follow-up on the selective care unit. He is currently resting fairly comfortably in bed. Awake and alert in no acute distress. He is maintaining O2 saturations in the mid 90s on room air. He's afebrile. Hemodynamically stable. Follow-up chest x-ray reveals persistent right airspace opacities. Right-sided PICC line in place. Small left pleural effusion. Echocardiogram reveals preserved left ventricle systolic function with ejection fraction 55%. No significant valvular abnormalities. White count 9.1. Hemoglobin 8.9. Platelets 523. Sodium 135. Potassium 5.0. BUN 25. Creatinine 0.97. Glucose 279. He remains on Unasyn for his cellulitis. Continued on bronchodilators. Heparin for DVT prophylaxis. Continued on Lasix 20 mg IV every 12 hours. No accurate I&O. Triglyceride levels from the pleural fluid are still pending. Lab was contacted this morning. Awaiting results. The patient is seen today 03/04/2022 in follow-up on the selective care unit. He is resting comfortably in bed. Awake and alert in no acute distress. Maintaining O2 saturations in the 90s on 2 L/m per nasal cannula. Denies any worsening shortness of breath, cough or congestion. Blood cultures revealed no growth. Pleural fluid was transudate in nature with a total protein of 2.4 and LDH of 83. White count 8.5. He will be 9.1. Platelets 567. Sodium 138. Potassium 4.3. BUN 22. Creatinine 0.9. Blood sugar 157. He remains on DuoNeb inhalations. Continued on IV diuretics. No accurate I&O. Remains on antibiotics in the form of Unasyn. Heparin for DVT prophylaxis. Objective - Vital Signs Vital signs: Vital Signs Temp 98.2 F 03/04/22 08:00 Pulse 110 H 03/04/22 11:38 Resp 16 03/04/22 08:00 BP 165/91 03/04/22 08:00 Pulse Ox 95 03/04/22 08:00 FiO2 Intake & Output 03/03/22 03/04/22 03/04/22 18:59 06:59 18:59 Intake Total 540 540 Output Total 450 600 Balance 90 -600 540 Weight 50.4 kg 49.5 kg Intake: Oral 540 540 Output: Urine 450 600 Other: Voiding Method Urinal Urinal Urinal - Exam GENERAL EXAM: Alert, 61-year-old male, on 2 L/m per nasal cannula, comfortable in no apparent distress. HEAD: Normocephalic. EYES: Normal reaction of pupils, equal size. NOSE: Clear with pink turbinates. THROAT: No erythema or exudates. NECK: No masses, no JVD. CHEST: No chest wall deformity. LUNGS: Equal air entry with crackles in the right lung base. CVS: S1 and S2 normal with no audible murmur, regular rhythm. ABDOMEN: No hepatosplenomegaly, normal bowel sounds, no guarding or rigidity. SPINE: No scoliosis or deformity SKIN: No rashes CENTRAL NERVOUS SYSTEM: No focal deficits, tone is normal in all 4 extremities. EXTREMITIES: Dressing to the right foot dry and intact. There is no peripheral edema. No clubbing, no cyanosis. Peripheral pulses are intact. - Labs CBC & Chem 7: 03/04/22 07:56 03/04/22 07:56 Labs: Abnormal Lab Results - Last 24 Hours (Table) 03/03/22 03/03/22 03/04/22 Range/Units 16:28 20:24 03:12 RBC (4.30-5.90) m/uL Hgb (13.0-17.5) gm/dL Hct (39.0-53.0) % MCH (25.0-35.0) pg MCHC (31.0-37.0) g/dL RDW (11.5-15.5) % Plt Count (150-450) k/uL Carbon Dioxide (22-30) mmol/L BUN (9-20) mg/dL Glucose (74-99) mg/dL POC Glucose (mg/dL) 134 H 206 H 44 L (70-110) mg/dL 03/04/22 03/04/22 03/04/22 Range/Units 03:31 03:48 06:08 RBC (4.30-5.90) m/uL Hgb (13.0-17.5) gm/dL Hct (39.0-53.0) % MCH (25.0-35.0) pg MCHC (31.0-37.0) g/dL RDW (11.5-15.5) % Plt Count (150-450) k/uL Carbon Dioxide (22-30) mmol/L BUN (9-20) mg/dL Glucose (74-99) mg/dL POC Glucose (mg/dL) 33 L 230 H 195 H (70-110) mg/dL 03/04/22 03/04/22 03/04/22 Range/Units 07:41 07:56 07:56 RBC 3.77 L (4.30-5.90) m/uL Hgb 9.1 L (13.0-17.5) gm/dL Hct 30.2 L (39.0-53.0) % MCH 24.1 L (25.0-35.0) pg MCHC 30.1 L (31.0-37.0) g/dL RDW 18.3 H (11.5-15.5) % Plt Count 567 H (150-450) k/uL Carbon Dioxide 31 H (22-30) mmol/L BUN 22 H (9-20) mg/dL Glucose 157 H (74-99) mg/dL POC Glucose (mg/dL) 33 L (70-110) mg/dL 03/04/22 03/04/22 03/04/22 Range/Units 08:00 09:05 11:10 RBC (4.30-5.90) m/uL Hgb (13.0-17.5) gm/dL Hct (39.0-53.0) % MCH (25.0-35.0) pg MCHC (31.0-37.0) g/dL RDW (11.5-15.5) % Plt Count (150-450) k/uL Carbon Dioxide (22-30) mmol/L BUN (9-20) mg/dL Glucose (74-99) mg/dL POC Glucose (mg/dL) 199 H 163 H 162 H (70-110) mg/dL Microbiology - Last 24 Hours (Table) 03/01/22 14:40 Blood Culture - Preliminary Blood No Growth after 48 hours 12/24/22 14:25 Blood Culture - Preliminary Blood No Growth after 48 hours Assessment and Plan Assessment: Shortness of breath with abnormal CT of the chest and chest x-ray showing mohini ateral opacities and pleural effusions, status post right sided thoracentesis, and the pleural effusion seems to be suspicious for chylothorax. However triglyceride level is pending. Lab was contacted today and results are pending. Otherwise, most likely transudate with a total protein of 2.4 and an LDH of 83. Nonspecific mediastinal and axillary adenopathy, will need to be further evaluated, underlying malignancy to be considered. If the fluid is truly chylothorax, this may imply that we may be dealing with lymphoma and the workup should proceed that way to rule out lymphoma. However considering the fluid was present a few months ago very similar presentation and resolved with diuretics, restarted the patient back on diuretics low dose. Right foot cellulitis and skin ulcers/diabetic foot ulcers patient is on Unasyn on outpatient basis via PICC line. Insulin-dependent diabetes. History of seizure disorder Possible osteomyelitis right foot. Plan: The patient was seen and evaluated Labs and medications reviewed Remains on diuretics Remains on Unasyn for cellulitis Continued on bronchodilators Titrate down the FiO2 as tolerated Follow-up chest x-ray in a.m. We will continue to follow I have personally seen and examined the patient, performed the documentation and the assessment and plan as written. Number of minutes spent on the visit: 10.
[2022-03-04 15:29] LABS: T4, Free (Free Thyroxine) 1.53 ng/dL (0.78-2.19)
[2022-03-04 16:15] LABS: Glucose,Whole Blood 243 mg/dL (70-110)
[2022-03-04] MEDS: SODIUM CHLORIDE 0.9% 1,000 ML IV SCH (16:28)
[2022-03-04] MEDS: METOPROLOL TARTRATE 25 MG TAB PO SCH ×2 (17:33→21:49)
[2022-03-04 20:35] LABS: Glucose,Whole Blood 348 mg/dL (70-110)
[2022-03-04] MEDS: ATORVASTATIN 20 MG TAB PO SCH (21:48)
[2022-03-04] MEDS: LATANOPROST 0.005% OPHTH DROPS 2.5 ML BTL BOTH EYES SCH (21:49)
--- NOTE | 2022-03-04 22:32 | P.PN ---
Subjective Progress Note Date: 03/04/22 Principal diagnosis: Right foot osteomyelitis and question of pneumonia Patient is a 61-year-old male with multiple comorbidities including diabetes mellitus the patient did have right diabetic foot infection with a nonhealing wound on the plantar aspect of the right foot and underlying osteomyelitis in this patient who is status post debridement of the wound local culture positive for Enterococcus faecalis patient did get a PICC line and was advised six-week course of IV Unasyn with the patient was currently [facility] patient apparently has been sent to the ER for evaluation of increasing shortness of breath, patient noticed to have a right-sided effusion status post thoracocentesis and there is concern for possible chylothorax throat is mostly transudate and the patient did have normal pro- calcitonin. On today's evaluation her that is 03/04/2022, the patient continues to be afebrile, the patient is breathing comfortably on room air, patient denies chest pain or cough and no sputum production no nausea no vomiting no abdominal pain and denies pain to the right foot ulcer Objective - Vital Signs Vital signs: Vital Signs Temp 98.2 F 03/04/22 08:00 Pulse 110 H 03/04/22 11:38 Resp 16 03/04/22 08:00 BP 165/91 03/04/22 08:00 Pulse Ox 95 03/04/22 08:00 FiO2 Intake & Output 03/03/22 03/04/22 03/04/22 18:59 06:59 18:59 Intake Total 540 540 Output Total 450 600 Balance 90 -600 540 Weight 50.4 kg 49.5 kg Intake: Oral 540 540 Output: Urine 450 600 Other: Voiding Method Urinal Urinal Urinal - Exam GENERAL DESCRIPTION: Middle-aged male lying in bed in no distress RESPIRATORY SYSTEM: Unlabored breathing , decreased breath sounds at bases HEART: S1 S2 regular rate and rhythm , ABDOMEN: Soft , no tenderness EXTREMITIES: Right foot wound is currently dressed no drainage on the dressing - Labs CBC & Chem 7: 03/04/22 07:56 03/04/22 07:56 Labs: Abnormal Lab Results - Last 24 Hours (Table) 03/03/22 03/03/22 03/04/22 Range/Units 16:28 20:24 03:12 RBC (4.30-5.90) m/uL Hgb (13.0-17.5) gm/dL Hct (39.0-53.0) % MCH (25.0-35.0) pg MCHC (31.0-37.0) g/dL RDW (11.5-15.5) % Plt Count (150-450) k/uL Carbon Dioxide (22-30) mmol/L BUN (9-20) mg/dL Glucose (74-99) mg/dL POC Glucose (mg/dL) 134 H 206 H 44 L (70-110) mg/dL 03/04/22 03/04/22 03/04/22 Range/Units 03:31 03:48 06:08 RBC (4.30-5.90) m/uL Hgb (13.0-17.5) gm/dL Hct (39.0-53.0) % MCH (25.0-35.0) pg MCHC (31.0-37.0) g/dL RDW (11.5-15.5) % Plt Count (150-450) k/uL Carbon Dioxide (22-30) mmol/L BUN (9-20) mg/dL Glucose (74-99) mg/dL POC Glucose (mg/dL) 33 L 230 H 195 H (70-110) mg/dL 03/04/22 03/04/22 03/04/22 Range/Units 07:41 07:56 07:56 RBC 3.77 L (4.30-5.90) m/uL Hgb 9.1 L (13.0-17.5) gm/dL Hct 30.2 L (39.0-53.0) % MCH 24.1 L (25.0-35.0) pg MCHC 30.1 L (31.0-37.0) g/dL RDW 18.3 H (11.5-15.5) % Plt Count 567 H (150-450) k/uL Carbon Dioxide 31 H (22-30) mmol/L BUN 22 H (9-20) mg/dL Glucose 157 H (74-99) mg/dL POC Glucose (mg/dL) 33 L (70-110) mg/dL 03/04/22 03/04/22 03/04/22 Range/Units 08:00 09:05 11:10 RBC (4.30-5.90) m/uL Hgb (13.0-17.5) gm/dL Hct (39.0-53.0) % MCH (25.0-35.0) pg MCHC (31.0-37.0) g/dL RDW (11.5-15.5) % Plt Count (150-450) k/uL Carbon Dioxide (22-30) mmol/L BUN (9-20) mg/dL Glucose (74-99) mg/dL POC Glucose (mg/dL) 199 H 163 H 162 H (70-110) mg/dL Microbiology - Last 24 Hours (Table) 03/01/22 14:40 Blood Culture - Preliminary Blood No Growth after 48 hours 03/01/22 14:25 Blood Culture - Preliminary Blood No Growth after 48 hours Assessment and Plan (1) Diabetic foot ulcer Current Visit: No Status: Acute Code(s): E11.621 - TYPE 2 DIABETES MELLITUS WITH FOOT ULCER; L97.509 - NON-PRESSURE CHRONIC ULCER OTH PRT UNSP FOOT W UNSP SEVERITY SNOMED Code(s): 318812505 (2) Infected wound Current Visit: No Status: Acute Code(s): T14.8XXA - OTHER INJURY OF UNSPECIFIED BODY REGION, INITIAL ENCOUNTER; L08.9 - LOCAL INFECTION OF THE SKIN AND SUBCUTANEOUS TISSUE, UNSP SNOMED Code(s): 56661132 Plan: 1patient with right diabetic foot infection with underlying ostial myelitis secondary to Enterococcus faecalis for the patient was currently getting Unasyn and local prison patient right foot plantar wound seems to be healing well without evidence of any surrounding redness or any foul-smelling drainage. 2patient no with right-sided effusion possibly related to cardiac etiology currently waiting for the triglyceride to rule out chylothorax with a normal pro-calcitonin will make pneumonia less likely 3 local wound care to the right foot plantar wound with Aquacel silver dressing changed every 48 hour. 4patient has shown some clinical improvement and will continue with Unasyn to cover for his right foot osteo-myelitis and monitor clinical course closely Time with Patient: Less than 30
[2022-03-05] MEDS: AMPICILLIN-SULBACTAM 3 GM in SODIUM CHLORIDE 0.9% 100 ML IVPB SCH ×4 (00:09→17:15)
[2022-03-05 02:26] LABS: Glucose,Whole Blood 343 mg/dL (70-110)
[2022-03-05] MEDS: INSULIN DETEMIR (LEVEMIR) 100 UNIT/ML SYR SQ SCH (04:52)
[2022-03-05 06:04] LABS: Glucose,Whole Blood 345 mg/dL (70-110)
[2022-03-05] MEDS: INSULIN ASPART (NovoLOG) 100 UNIT/ML VIAL SQ SCH ×6 (06:35→23:54)
[2022-03-05] MEDS: PANTOPRAZOLE 40 MG TABLET PO SCH ×2 (06:37→21:36)
[2022-03-05] MEDS: SODIUM CHLORIDE 0.9% 1,000 ML IV SCH ×2 (06:38→17:03)
[2022-03-05] MEDS: IPRATROPIUM-ALBUTEROL 3 ML NEB INHALATION SCH ×4 (08:29→19:49)
--- NOTE | 2022-03-05 08:33 | PN ---
PROGRESS NOTE Mr. Ryder has been admitted with pneumonia. He is showing improvement clinically. Denies any chest pain. His shortness of breath has improved. I am recommending that we switch his Lasix from IV to oral 40 mg every morning. There is no evidence of heart failure. I will also place him on a small dose of metoprolol tartrate 25 mg t.i.d. He has sinus tachycardia. Thoracentesis performed. I will also hydrate him, clinically appears to be dehydrated. There is no evidence to suggest any heart failure for this patient. Based on clinical course, we will make further recommendations as needed, but we are not dealing with any evidence of overt heart failure. I am recommending that we will obtain a free T4 and TSH as well. Because of his sinus tachycardia and hydrate him cautiously, LV systolic function is well preserved. He will be on 75 mL for normal saline. Continue metoprolol. We will check thyroid function tests. Based on his clinical condition, I will make further recommendations. MMROBERTL / MICHEALN: [id number] /
[2022-03-05] MEDS ORDERED: DEXTROSE 50% SYRINGE 50 ML IVP PRN ×2 (09:42)
[2022-03-05] MEDS: FUROSEMIDE 40 MG TAB PO SCH (09:51)
[2022-03-05] MEDS: HEPARIN SODIUM,PORCINE/PF 5,000 UNIT/0.5 ML SYRINGE SQ SCH ×2 (09:51→21:36)
[2022-03-05] MEDS: PHENYTOIN SODIUM EXTENDED 100 MG CAP PO SCH ×2 (09:52→21:36)
[2022-03-05] MEDS: NITROGLYCERIN OINT 1 INCH/GM PACKET TOPICAL SCH ×4 (09:52→21:37)
[2022-03-05] MEDS: ASPIRIN 325 MG TAB PO SCH (09:52)
[2022-03-05] MEDS: METOPROLOL TARTRATE 25 MG TAB PO SCH ×3 (09:52→21:36)
[2022-03-05] MEDS: PIOGLITAZONE 15 MG TAB PO SCH (09:53)
--- NOTE | 2022-03-05 10:41 | XR ---
EXAMINATION TYPE: XR chest 1V portable DATE OF EXAM: 03/05/2022 6:31 AM COMPARISON: Chest radiographs from 03/03/2022 TECHNIQUE: XR chest 1V portable Portable AP radiograph of the chest. CLINICAL INDICATION:Male, 61 years old with history of Pleural effusion; FINDINGS: Lungs/Pleura: Improved aeration of lungs on today's exam with persistent airspace opacities scattered throughout the lungs. No evidence of pneumothorax. Small bilateral pleural fusions are suspected. Pu lmonary vascularity: Unremarkable. Heart/mediastinum: Cardiomediastinal silhouette is unremarkable. Musculoskeletal: No acute osseous pathology. Lines/Tubes: Right-sided PICC line with distal tip at the superior vena cava. IMPRESSION: 1. Small bilateral pleural effusions. 2. Improved aeration of the lungs with persistent multifocal airspace opacities.
--- NOTE | 2022-03-05 11:32 | P.PN ---
Subjective Progress Note Date: 03/02/22 Patient is a 61-year-old male with a known history of chronic diabetic foot ulcer with cultures growing Enterococcus faecalis and is currently on Unasyn at [facility], hypertension, hyperlipidemia, diabetes type 2, osteoarthritis, seizure disorder, bilateral peripheral neuropathy, depression and other medical problems was sent to ER with complaints of shortness of breath which is worsening for the past 1 week along with cough which is mainly nonproductive. No fever or chills. No complains of chest pain. No nausea vomiting abdominal pain or diarrhea. Chest x-ray on admission showed correlate for interval development of CHF with patchy pulmonary edema. Moderate right greater than left pleural effusion. Laboratory data cerebrospinal 0.3 hemoglobin 9.6 and platelets 505 Sodium 134, potassium 4.5 chloride 104 bicarb is 27 BUN 18 and creatinine 0.6 and blood sugar is 312 admission. Albumin 3.3 proBNP 476 D-dimer is 1.15 patient underwent thoracentesis by pulmonary in the ER. Patient is being covered on broad-spectrum antibiotics. 03/02/22 Patient is currently lying in bed. Awake alert and oriented. Breathing status is better today. Status post thoracentesis yesterday. Possible chylothorax is being considered. triglyceride level is pending. Patient is being continued on Lasix IV. Chest x-ray showed possible additional P infiltrates medial right base and left upper lobe. Patient is on antibiotics, Zosyn changed to Unasyn as per ID recommendations. Pulmonary is on board. Laboratory data showed WBC 7.8 hemoglobin 8.2 and platelets 481 Sodium 137 potassium 4.4 BUN 21 and creatinine 0.97 and pressure was 58. Current medications reviewed. Objective - Vital Signs Vital signs: Vital Signs Temp 98.0 F 03/02/22 08:00 Pulse 100 03/02/22 09:30 Resp 18 03/02/22 08:00 BP 138/78 03/02/22 08:00 Pulse Ox 98 03/02/22 09:19 FiO2 Intake & Output 03/01/22 03/02/22 03/02/22 18:59 06:59 18:59 Intake Total 180 Balance 180 Weight 51.81 kg 51.6 kg Intake: Oral 180 Other: Voiding Method Urinal Urinal Urinal # Voids 2 - Exam PHYSICAL EXAMINATION: Patient is lying in the bed comfortably, no acute distress, awake alert but lethargic and weak. HEENT: Normocephalic. Neck is supple. Pupils reactive. Nostrils clear. Oral cavity is moist. Neck reveals no JVD, carotid bruits, or thyromegaly. CHEST EXAMINATION: Trachea is central. Symmetrical expansion. Right basilar crackles. Diminished basilar sounds.. No wheezing... CARDIAC: Normal S1, S2 with no gallops. No murmurs ABDOMEN: Soft. Bowel sounds normal. No organomegaly. No abdominal bruits. Extremities: reveal no edema. No clubbing or cyanosis Neurologically awake, alert, oriented 3 with well-coordinated movements. No focal deficits noted Skin: No rash. Patient does have right foot ulcer which is wrapped. Psychiatric: Coperative. Nonsuicidal Musculoskeletal: No joint swelling or deformity. Normal range of motion. - Labs CBC & Chem 7: 03/04/22 07:56 03/04/22 07:56 Labs: Abnormal Lab Results - Last 24 Hours (Table) 03/01/22 03/01/22 03/01/22 Range/Units 12:49 12:49 12:49 WBC 13.3 H (3.8-10.6) k/uL RBC 3.90 L (4.30-5.90) m/uL Hgb 9.6 L (13.0-17.5) gm/dL Hct 31.3 L (39.0-53.0) % MCV (80.0-100.0) fL MCH 24.5 L (25.0-35.0) pg MCHC 30.6 L (31.0-37.0) g/dL RDW 18.5 H (11.5-15.5) % Plt Count 505 H (150-450) k/uL Neutrophils # 12.0 H (1.3-7.7) k/uL Lymphocytes # 0.6 L (1.0-4.8) k/uL D-Dimer 1.15 H (<0.60) mg/L FEU Sodium 134 L (137-145) mmol/L Carbon Dioxide (22-30) mmol/L BUN (9-20) mg/dL Glucose 312 H (74-99) mg/dL POC Glucose (mg/dL) (70-110) mg/dL Calcium 8.2 L (8.4-10.2) mg/dL Total Bilirubin <0.1 L (0.2-1.3) mg/dL Alkaline Phosphatase 209 H (38-126) U/L Albumin 3.3 L (3.5-5.0) g/dL 03/01/22 03/01/22 03/01/22 Range/Units 16:48 20:30 23:13 WBC (3.8-10.6) k/uL RBC (4.30-5.90) m/uL Hgb (13.0-17.5) gm/dL Hct (39.0-53.0) % MCV (80.0-100.0) fL MCH (25.0-35.0) pg MCHC (31.0-37.0) g/dL RDW (11.5-15.5) % Plt Count (150-450) k/uL Neutrophils # (1.3-7.7) k/uL Lymphocytes # (1.0-4.8) k/uL D-Dimer (<0.60) mg/L FEU Sodium (137-145) mmol/L Carbon Dioxide (22-30) mmol/L BUN (9-20) mg/dL Glucose (74-99) mg/dL POC Glucose (mg/dL) 414 H 334 H 308 H (70-110) mg/dL Calcium (8.4-10.2) mg/dL Total Bilirubin (0.2-1.3) mg/dL Alkaline Phosphatase (38-126) U/L Albumin (3.5-5.0) g/dL 03/02/22 03/02/22 03/02/22 Range/Units 01:38 07:04 07:04 WBC (3.8-10.6) k/uL RBC 3.44 L (4.30-5.90) m/uL Hgb 8.2 L (13.0-17.5) gm/dL Hct 27.3 L (39.0-53.0) % MCV 79.4 L (80.0-100.0) fL MCH 23.8 L (25.0-35.0) pg MCHC 30.0 L (31.0-37.0) g/dL RDW 18.7 H (11.5-15.5) % Plt Count 481 H (150-450) k/uL Neutrophils # (1.3-7.7) k/uL Lymphocytes # (1.0-4.8) k/uL D-Dimer (<0.60) mg/L FEU Sodium (137-145) mmol/L Carbon Dioxide 31 H (22-30) mmol/L BUN 21 H (9-20) mg/dL Glucose 58 L (74-99) mg/dL POC Glucose (mg/dL) 276 H (70-110) mg/dL Calcium (8.4-10.2) mg/dL Total Bilirubin (0.2-1.3) mg/dL Alkaline Phosphatase (38-126) U/L Albumin (3.5-5.0) g/dL 03/02/22 03/02/22 Range/Units 08:59 09:22 WBC (3.8-10.6) k/uL RBC (4.30-5.90) m/uL Hgb (13.0-17.5) gm/dL Hct (39.0-53.0) % MCV (80.0-100.0) fL MCH (25.0-35.0) pg MCHC (31.0-37.0) g/dL RDW (11.5-15.5) % Plt Count (150-450) k/uL Neutrophils # (1.3-7.7) k/uL Lymphocytes # (1.0-4.8) k/uL D-Dimer (<0.60) mg/L FEU Sodium (137-145) mmol/L Carbon Dioxide (22-30) mmol/L BUN (9-20) mg/dL Glucose (74-99) mg/dL POC Glucose (mg/dL) 59 L 66 L (70-110) mg/dL Calcium (8.4-10.2) mg/dL Total Bilirubin (0.2-1.3) mg/dL Alkaline Phosphatase (38-126) U/L Albumin (3.5-5.0) g/dL Assessment and Plan Assessment: Worsening shortness of breath due to bilateral pleural effusions right greater than left. Suspicious for chylothorax. Status post right thoracentesis. Awaiting triglyceride level. Mediastinal and axillary lymphadenopathy. Possible underlying malignancy cannot be excluded. Right diabetic foot ulcer with recent wound cultures growing Enterococcus faecalis was maintained on Unasyn with PICC line. Hyperglycemia with uncontrolled diabetes type 2. Insulin-dependent Seizure disorder Hyperlipidemia Diabetic peripheral neuropathy Depression DVT prophylaxis with heparin subcu Plan: Patient will be continued on oxygen supplementation. Status post right thoracentesis. Continue with IV Lasix 20 mg twice daily. Continue with broad-spectrum antibiotics in the form of Zosyn and follow-up w ound cultures and blood cultures. Antibiotic changed to Unasyn. Patient will be started back on insulin regimen and sliding scale. Titrate insulin dose as needed. Pulmonary and ID is on board. Follow up closely. Time with Patient: Greater than 30
--- NOTE | 2022-03-05 11:35 | P.PN ---
Subjective Progress Note Date: 03/04/22 Patient is a 61-year-old male with a known history of chronic diabetic foot ulcer with cultures growing Enterococcus faecalis and is currently on Unasyn at [facility], hypertension, hyperlipidemia, diabetes type 2, osteoarthritis, seizure disorder, bilateral peripheral neuropathy, depression and other medical problems was sent to ER with complaints of shortness of breath which is worsening for the past 1 week along with cough which is mainly nonproductive. No fever or chills. No complains of chest pain. No nausea vomiting abdominal pain or diarrhea. Chest x-ray on admission showed correlate for interval development of CHF with patchy pulmonary edema. Moderate right greater than left pleural effusion. Laboratory data cerebrospinal 0.3 hemoglobin 9.6 and platelets 505 Sodium 134, potassium 4.5 chloride 104 bicarb is 27 BUN 18 and creatinine 0.6 and blood sugar is 312 admission. Albumin 3.3 proBNP 476 D-dimer is 1.15 patient underwent thoracentesis by pulmonary in the ER. Patient is being covered on broad-spectrum antibiotics. 03/02/22 Patient is currently lying in bed. Awake alert and oriented. Breathing status is better today. Status post thoracentesis yesterday. Possible chylothorax is being considered. triglyceride level is pending. Patient is being continued on Lasix IV. Chest x-ray showed possible additional P infiltrates medial right base and left upper lobe. Patient is on antibiotics, Zosyn changed to Unasyn as per ID recommendations. Pulmonary is on board. Laboratory data showed WBC 7.8 hemoglobin 8.2 and platelets 481 Sodium 137 potassium 4.4 BUN 21 and creatinine 0.97 and pressure was 58. 03/03/22 Patient is seen resting in the bed. Awake alert and oriented 3. No complaints of chest pain or worsening shortness of breath. Currently titrated down to room air. Afebrile. No nausea vomiting abdominal pain or diarrhea. Repeat chest x-ray today showed persistent right 8 passes which have increased from prior. [place] peak distal tip in appropriate position. Small left pleural effusion. Patient remains on antibiotics the form Unasyn. Also being continued on Lasix. 2-D echocardiogram for normal ejection fraction. No significant wall motion abnormalities noted. laboratory data reviewed. 03/04/22 Patient is currently in the [facility]. Lying in bed. Awake alert and oriented 3. No complaints of fever or chills. Right foot pain is better and is being continued on being continued on Unasyn. Blood Cultures have been neg ative. Also on Lasix. Repeat chest x-ray today and tomorrow. He was hypoglycemic. Insulin dose was reduced. Was taking 50 units daily changed to 35 units along with sliding scale. WBC 8.5 hemoglobin 9.1 and platelets 567, bicarb is 31 BUN 22 and creatinine 0.9 and blood sugar is 33 this morning. Current medications reviewed. Objective - Vital Signs Vital signs: Vital Signs Temp 98.2 F 03/05/22 08:00 Pulse 91 03/05/22 08:46 Resp 16 03/05/22 08:00 BP 155/88 03/05/22 08:00 Pulse Ox 94 L 03/05/22 08:33 FiO2 Intake & Output 03/04/22 03/05/22 03/05/22 18:59 06:59 18:59 Intake Total 900 358 Output Total 200 Balance 700 358 Weight 48.6 kg Intake: Oral 900 358 Output: Urine 200 Other: Voiding Method Urinal Toilet Urinal # Voids 2 - Exam PHYSICAL EXAMINATION: Patient is lying in the bed comfortably, no acute distress, awake alert but lethargic and weak. HEENT: Normocephalic. Neck is supple. Pupils reactive. Nostrils clear. Oral cavity is moist. Neck reveals no JVD, carotid bruits, or thyromegaly. CHEST EXAMINATION: Trachea is central. Symmetrical expansion. Right basilar crackles. Diminished basilar sounds.. No wheezing... CARDIAC: Normal S1, S2 with no gallops. No murmurs ABDOMEN: Soft. Bowel sounds normal. No organomegaly. No abdominal bruits. Extremities: reveal no edema. No clubbing or cyanosis Neurologically awake, alert, oriented 3 with well-coordinated movements. No focal deficits noted Skin: No rash. Patient does have right foot ulcer which is wrapped. Psychiatric: Coperative. Nonsuicidal Musculoskeletal: No joint swelling or deformity. Normal range of motion. - Labs CBC & Chem 7: 03/04/22 07:56 03/04/22 07:56 Labs: Abnormal Lab Results - Last 24 Hours (Table) 03/04/22 03/04/22 03/05/22 Range/Units 16:13 20:34 02:24 POC Glucose (mg/dL) 243 H 348 H 343 H (70-110) mg/dL 03/05/22 Range/Units 06:03 POC Glucose (mg/dL) 345 H (70-110) mg/dL Microbiology - Last 24 Hours (Table) 03/01/22 14:40 Blood Culture - Preliminary Blood No Growth after 72 hours 03/01/22 14:25 Blood Culture - Preliminary Blood No Growth after 72 hours Assessment and Plan Assessment: Worsening shortness of breath due to bilateral pleural effusions right greater than left. Suspicious for chylothorax. Status post right thoracentesis. Awaiting triglyceride level. Mediastinal and axillary lymphadenopathy. Possible underlying malignancy cannot be excluded. Right diabetic foot ulcer with recent wound cultures growing Enterococcus faecalis was maintained on Unasyn with PICC line. Hyperglycemia with uncontrolled diabetes type 2. Insulin-dependent. Patient had hypoglycemic episodes. Seizure disorder Hyperlipidemia Diabetic peripheral neuropathy Depression DVT prophylaxis with heparin subcu Plan: Patient will be continued on oxygen supplementation. Status post right thoracentesis. Continue with IV Lasix 20 mg twice daily. Changed to by mouth. Continue with broad-spectrum antibiotics in the form of Zosyn and follow-up wound cultures and blood cultures. Antibiotic changed to Unasyn. Continue the wound care. Patient will be started back on insulin regimen and sliding scale. Titrate insulin dose as needed. Pulmonary and ID is on board. Follow up closely. Time with Patient: Greater than 30
--- NOTE | 2022-03-05 11:35 | P.PN ---
Subjective Progress Note Date: 03/03/22 Patient is a 61-year-old male with a known history of chronic diabetic foot ulcer with cultures growing Enterococcus faecalis and is currently on Unasyn at [place], hypertension, hyperlipidemia, diabetes type 2, osteoarthritis, seizure disorder, bilateral peripheral neuropathy, depression and other medical problems was sent to ER with complaints of shortness of breath which is worsening for the past 1 week along with cough which is mainly nonproductive. No fever or chills. No complains of chest pain. No nausea vomiting abdominal pain or diarrhea. Chest x-ray on admission showed correlate for interval development of CHF with patchy pulmonary edema. Moderate right greater than left pleural effusion. Laboratory data cerebrospinal 0.3 hemoglobin 9.6 and platelets 505 Sodium 134, potassium 4.5 chloride 104 bicarb is 27 BUN 18 and creatinine 0.6 and blood sugar is 312 admission. Albumin 3.3 proBNP 476 D-dimer is 1.15 patient underwent thoracentesis by pulmonary in the ER. Patient is being covered on broad-spectrum antibiotics. 03/02/22 Patient is currently lying in bed. Awake alert and oriented. Breathing status is better today. Status post thoracentesis yesterday. Possible chylothorax is being considered. triglyceride level is pending. Patient is being continued on Lasix IV. Chest x-ray showed possible additional P infiltrates medial right base and left upper lobe. Patient is on antibiotics, Zosyn changed to Unasyn as per ID recommendations. Pulmonary is on board. Laboratory data showed WBC 7.8 hemoglobin 8.2 and platelets 481 Sodium 137 potassium 4.4 BUN 21 and creatinine 0.97 and pressure was 58. 03/03/22 Patient is seen resting in the bed. Awake alert and oriented 3. No complaints of chest pain or worsening shortness of breath. Currently titrated down to room air. Afebrile. No nausea vomiting abdominal pain or diarrhea. Repeat chest x-ray today showed persistent right 8 passes which have increased from prior. Wade peak distal tip in appropriate position. Small left pleural effusion. Patient remains on antibiotics the form Unasyn. Also being continued on Lasix. 2-D echocardiogram for normal ejection fraction. No significant wall motion abnormalities noted. laboratory data reviewed. Current medications reviewed. Objective - Vital Signs Vital signs: Vital Signs Temp 98.3 F 03/03/22 20:00 Pulse 104 H 03/03/22 20:10 Resp 18 03/03/22 20:00 BP 161/81 03/03/22 20:00 Pulse Ox 93 L 03/03/22 20:00 FiO2 Intake & Output 03/03/22 03/03/22 03/04/22 06:59 18:59 06:59 Intake Total 540 Output Total 450 Balance 90 Weight 50.4 kg 50.4 kg Intake: Oral 540 Output: Urine 450 Other: Voiding Method Urinal Urinal Urinal # Voids 2 # Bowel Movements 1 - Exam PHYSICAL EXAMINATION: Patient is lying in the bed comfortably, no acute distress, awake alert but lethargic and weak. HEENT: Normocephalic. Neck is supple. Pupils reactive. Nostrils clear. Oral cavity is moist. Neck reveals no JVD, carotid bruits, or thyromegaly. CHEST EXAMINATION: Trachea is central. Symmetrical expansion. Right basilar crackles. Diminished basilar sounds.. No wheezing... CARDIAC: Normal S1, S2 with no gallops. No murmurs ABDOMEN: Soft. Bowel sounds normal. No organomegaly. No abdominal bruits. Extremities: reveal no edema. No clubbing or cyanosis Neurologically awake, alert, oriented 3 with well-coordinated movements. No focal deficits noted Skin: No rash. Patient does have right foot ulcer which is wrapped. Psychiatric: Coperative. Nonsuicidal Musculoskeletal: No joint swelling or deformity. Normal range of motion. - Labs CBC & Chem 7: 03/04/22 07:56 03/04/22 07:56 Labs: Abnormal Lab Results - Last 24 Hours (Table) 03/03/22 03/03/22 03/03/22 Range/Units 02:25 06:02 08:02 RBC 3.59 L (4.30-5.90) m/uL Hgb 8.9 L (13.0-17.5) gm/dL Hct 29.4 L (39.0-53.0) % MCH 24.7 L (25.0-35.0) pg MCHC 30.2 L (31.0-37.0) g/dL RDW 18.4 H (11.5-15.5) % Plt Count 523 H (150-450) k/uL Sodium (137-145) mmol/L BUN (9-20) mg/dL Glucose (74-99) mg/dL POC Glucose (mg/dL) 223 H 237 H (70-110) mg/dL 03/03/22 03/03/22 03/03/22 Range/Units 08:02 12:07 16:28 RBC (4.30-5.90) m/uL Hgb (13.0-17.5) gm/dL Hct (39.0-53.0) % MCH (25.0-35.0) pg MCHC (31.0-37.0) g/dL RDW (11.5-15.5) % Plt Count (150-450) k/uL Sodium 135 L (137-145) mmol/L BUN 25 H (9-20) mg/dL Glucose 279 H (74-99) mg/dL POC Glucose (mg/dL) 153 H 134 H (70-110) mg/dL 03/03/22 Range/Units 20:24 RBC (4.30-5.90) m/uL Hgb (13.0-17.5) gm/dL Hct (39.0-53.0) % MCH (25.0-35.0) pg MCHC (31.0-37.0) g/dL RDW (11.5-15.5) % Plt Count (150-450) k/uL Sodium (137-145) mmol/L BUN (9-20) mg/dL Glucose (74-99) mg/dL POC Glucose (mg/dL) 206 H (70-110) mg/dL Microbiology - Last 24 Hours (Table) 03/01/22 14:40 Blood Culture - Preliminary Blood No Growth after 48 hours 03/01/22 14:25 Blood Culture - Preliminary Blood No Growth after 48 hours Assessment and Plan Assessment: Worsening shortness of breath due to bilateral pleural effusions right greater than left. Suspicious for chylothorax. Status post right thoracentesis. Awaiting triglyceride level. Mediastinal and axillary lymphadenopathy. Possible underlying malignancy cannot be excluded. Right diabetic foot ulcer with recent wound cultures growing Enterococcus faecalis was maintained on Unasyn with PICC line. Hyperglycemia with uncontrolled diabetes type 2. Insulin-dependent Seizure disorder Hyperlipidemia Diabetic peripheral neuropathy Depression DVT prophylaxis with heparin subcu Plan: Patient will be continued on oxygen supplementation. Status post right thoracentesis. Continue with IV Lasix 20 mg twice daily. Changed to by mouth. Continue with broad-spectrum antibiotics in the form of Zosyn and follow-up wound cultures and blood cultures. Antibiotic changed to Unasyn. Patient will be started back on insulin regimen and sliding scale. Titrate insulin dose as needed. Pulmonary and ID is on board. Follow up closely. Time with Patient: Greater than 30
[2022-03-05 11:37] LABS: Glucose,Whole Blood 222 mg/dL (70-110)
[2022-03-05] MEDS: BENZONATATE 100 MG CAP PO PRN ×2 (13:15→21:36)
--- NOTE | 2022-03-05 14:07 | CDI ---
Documentation Clarification Form Date: 03/05/2022 01:57:16 PM From: Kelly Dudley [facility], CCDS Admit Date: 03/01/2022 02:14:00 PM Patient Name: Pietro Ryder Visit Number: [id number] Discharge Date: ATTENTION: The Clinical Documentation Specialists (CDI) and [facility] Coding Staff appreciate your assistance in clarifying documentation. Please respond to the clarification below the line at the bottom and electronically sign. The CDI & [facility] Coding staff will review the response and follow-up if needed. Please note: Queries are made part of the Legal Health Record. If you have any questions, please contact the author of this message via ITS. Dr. Luda Alfaro: The patient presented with the following clinical indicators. Additional clarification regarding the etiology/cause of the clinical indicators is requested. History/Risk Factors: IDDM II with neuropathy, wounds to bilateral feet: goes to wound care center, past LLE cellulitis with sepsis, Lt wrist cancerous tumor removed, Seizure about a year ago, OA, Vertigo, Occasional diarrhea. Clinical Indicators: Presented to the ED with SOB via EMS. Occasional nonproductive cough. Has PICC line for right leg ulcer. Admit with CHF, Pneumonia, Sepsis 03/01 VS: T 98.7, P 119 - 125; R 18 - 20 (sob), BP 190/101, PO 95 6Lnc, BMI: 17.8. 03/01 LAB: WBC 13.3, RBC 3.90, Hgb 9.6, Hct 31.3, Plt Ct 505, Neutrophils 12.0, Lymphocytes 0.6; D Dimer 1.15; Na 134, Glucose 312, Calcium 8.2, T Bili <0.1, Alk Phos 209, Albumin 3.3 Influenza A/B: neg. COVID: neg. RSV: neg 03/01 Blood cultures x2: Pending final: no growth @ 72 hours. 03/01 CXR: Correlate for the interval development of CHF with patchy pulmonary edema. Moderate right greater than left pleural effusions. Treatment: 03/01 Thoracentesis: fluid analysis pending, Pulmonary, Cardiology and Infectious Disease consults, Olson catheter, Telemetry, CHF Protocol, O2 6Lnc, INH Duoneb x1 - q4H/prn, IV Solumedrol 125 mg x1, IV Ativan 1 mg x1, Pneumonia protocol, IV Zosyn 100 mls @ 200 mls/hr x1, IV Lasix 40 mg q8H, Nitro paste, Insulin sq, Heparin sq In your professional opinion, please clarify if these findings signify one of the following conditions: [ ] Sepsis POA, please specify the cause: [ ] Sepsis, Not POA, please specify the cause: [ x ] Sepsis ruled out [ ] Severe Sepsis with organ failure [ ] Other, please specify: [ ] Unable to determine (Template Last Reviewed: April 2020) MARKD
--- NOTE | 2022-03-05 14:33 | P.PN ---
Subjective Progress Note Date: 03/05/22 Principal diagnosis: Right foot osteomyelitis and question of pneumonia Patient is a 61-year-old male with multiple comorbidities including diabetes mellitus the patient did have right diabetic foot infection with a nonhealing wound on the plantar aspect of the right foot and underlying osteomyelitis in this patient who is status post debridement of the wound local culture positive for Enterococcus faecalis patient did get a PICC line and was advised six-week course of IV Unasyn with the patient was currently receiving at the local long-term patient apparently has been sent to the ER for evaluation of increasing shortness of breath, patient noticed to have a right-sided effusion status post thoracocentesis and there is concern for possible chylothorax throat is mostly transudate and the patient did have normal pro- calcitonin. On today's evaluation her that is 03/05/2022, the patient remains to be afebrile, the patient is breathing comfortably on 2 L nasal cannula, patient denies chest pain however the patient complaining of more cough which is dry in nature, no nausea no vomiting no abdominal pain and denies pain to the right foot ulcer Objective - Vital Signs Vital signs: Vital Signs Temp 97.9 F 03/05/22 11:39 Pulse 90 03/05/22 11:53 Resp 16 03/05/22 11:39 BP 161/88 03/05/22 11:39 Pulse Ox 96 03/05/22 11:39 FiO2 Intake & Output 03/04/22 03/05/22 03/05/22 18:59 06:59 18:59 Intake Total 900 358 Output Total 200 Balance 700 358 Weight 48.6 kg Intake: Oral 900 358 Output: Urine 200 Other: Voiding Method Urinal Toilet Urinal # Voids 2 - Exam GENERAL DESCRIPTION: Middle-aged male lying in bed in no distress RESPIRATORY SYSTEM: Unlabored breathing , decreased breath sounds at bases HEART: S1 S2 regular rate and rhythm , ABDOMEN: Soft , no tenderness EXTREMITIES: Right foot wound is currently dressed no drainage on the dressing - Labs CBC & Chem 7: 03/04/22 07:56 03/04/22 07:56 Labs: Abnormal Lab Results - Last 24 Hours (Table) 03/04/22 03/04/22 03/05/22 Range/Units 16:13 20:34 02:24 POC Glucose (mg/dL) 243 H 348 H 343 H (70-110) mg/dL 03/05/22 03/05/22 Range/Units 06:03 11:34 POC Glucose (mg/dL) 345 H 222 H (70-110) mg/dL Microbiology - Last 24 Hours (Table) 03/01/22 14:40 Blood Culture - Preliminary Blood No Growth after 72 hours 03/01/22 14:25 Blood Culture - Preliminary Blood No Growth after 72 hours Assessment and Plan (1) Diabetic foot ulcer Current Visit: No Status: Acute Code(s): E11.621 - TYPE 2 DIABETES MELLITUS WITH FOOT ULCER; L97.509 - NON-PRESSURE CHRONIC ULCER OTH PRT UNSP FOOT W UNSP SEVERITY SNOMED Code(s): 408415257 (2) Infected wound Current Visit: No Status: Acute Code(s): T14.8XXA - OTHER INJURY OF UNSPECIFIED BODY REGION, INITIAL ENCOUNTER; L08.9 - LOCAL INFECTION OF THE SKIN AND SUBCUTANEOUS TISSUE, UNSP SNOMED Code(s): 46381873 Plan: 1patient with right diabetic foot infection with underlying ostial myelitis secondary to Enterococcus faecalis for the patient was currently getting Unasyn and local long-term patient right foot plantar wound seems to be healing well without evidence of any surrounding redness or any foul-smelling drainage. 2patient no with right-sided effusion possibly related to cardiac etiology currently waiting for the triglyceride to rule out chylothorax with a normal pro-calcitonin will make pneumonia less likely 3 local wound care to the right foot plantar wound with Aquacel silver dressing changed every 48 hour. 4patient to continue with Unasyn and monitor clinical course closely Time with Patient: Less than 30
--- NOTE | 2022-03-05 14:42 | P.PN ---
Subjective Progress Note Date: 03/05/22 this is a 61-year-old white male with history of chronic right foot diabetic foot ulcers, history of peripheral vessel occlusive disease,diabetes, patient is at the [facility] receiving IV antibiotics via PICC line for his right foot diabetic ulcer. Patient presented to the ER today with 1 week history of s hortness of breath and cough.describes the cough as nonproductive cough mostly dry cough, denies any fever or chills, denies any chest pain, no hemoptysis, no nausea, no vomiting, no abdominal pain.chest x-ray in the ER showed evidence of bilateral interstitial type of edema, pleural effusions, right more than left pleural effusions noted,perihilar opacities noted especially in the right lungpatient was noted to have a bit of a leukocytosis with WBC count of 13.3 hemoglobin 9.6.d-dimer 1.15BNP level normal. Screening for influenza A, influenza B, RSV, and COVID-19 were all negative. I happened to be in the ER at the time, I evaluated the patient, and I went ahead and performed a right sided thoracentesis with ultrasound guidance, and I was able to get 950 mL of light. Make looking fluid which was sent for different diagnostic studiesin the meantime the patient will be admitted, he'll be placed on antibiotics/Zosyn empirically, and he'll be placed on updrafts. Patient was reevaluated today on 03/02/22, patient underwent uneventful right sided thoracentesis yesterday, the fluid came back transudate of in nature, cholesterol level is low, triglyceride level is pending, the fluid looked like be anemic, hence I was concerned about the possibility of chylothorax. So far the triglyceride level is pending, if more than 110, this will imply chylothorax, and the differential diagnoses will completely point towards possible malignancy. However if the fluid does not seem to be chylothorax, then I believe the fluid is most likely cardiac in nature. Looking back at the patient few months ago, he had a similar presentation with bilateral pleural effusions treated mostly with diuretics. And the fluids have completely resolved. Hence I'm recommending that we start the patient on a low dose of Lasix today, and keep an eye on his chest x-ray in the next couple of days. Clinically the patient is doing well, triglycerides on the pleural effusion are pending. Patient is mostly on antibiotics for his foot cellulitis, and not for his lungs. Pro calcitonin level came back normal. WBC count is 7.8 hemoglobin 8.2 electrolytes are normal renal profile is normal, initial report on the fluid came back mostly transudate of in nature. The patient is seen today 03/03/2022 in follow-up on the selective care unit. He is currently resting fairly comfortably in bed. Awake and alert in no acute distress. He is maintaining O2 saturations in the mid 90s on room air. He's afebrile. Hemodynamically stable. Follow-up chest x-ray reveals persistent right airspace opacities. Right-sided PICC line in place. Small left pleural effusion. Echocardiogram reveals preserved left ventricle systolic function with ejection fraction 55%. No significant valvular abnormalities. White count 9.1. Hemoglobin 8.9. Platelets 523. Sodium 135. Potassium 5.0. BUN 25. Creatinine 0.97. Glucose 279. He remains on Unasyn for his cellulitis. Continued on bronchodilators. Heparin for DVT prophylaxis. Continued on Lasix 20 mg IV every 12 hours. No accurate I&O. Triglyceride levels from the pleural fluid are still pending. Lab was contacted this morning. Awaiting results. The patient is seen today 03/04/2022 in follow-up on the selective care unit. He is resting comfortably in bed. Awake and alert in no acute distress. Maintaining O2 saturations in the 90s on 2 L/m per nasal cannula. Denies any worsening shortness of breath, cough or congestion. Blood cultures revealed no growth. Pleural fluid was transudate in nature with a total protein of 2.4 and LDH of 83. White count 8.5. He will be 9.1. Platelets 567. Sodium 138. Potassium 4.3. BUN 22. Creatinine 0.9. Blood sugar 157. He remains on DuoNeb inhalations. Continued on IV diuretics. No accurate I&O. Remains on antibiotics in the form of Unasyn. Heparin for DVT prophylaxis. The patient is seen today 03/05/2022 in follow-up on [facility] care unit. Sitting up in bed. Awake and alert in no acute distress. His main complaint today is that of cough that kept him up most of the night. He remains on DuoNeb inhalations. Continued on oral diuretics. Maintaining good O2 saturations in the mid 90s on 2 L/m per nasal cannula. Afebrile. Blood cultures revealed no growth. Blood sugar 222. ID is service is following regarding the diabetic wound and foot ulcer. Plan is for PICC line placement today. Continued on Unasyn. Follow up chest x-ray reveals small bilateral effusions. Improved aeration of the lungs with persistent multifocal airspace opacities Objective - Vital Signs Vital signs: Vital Signs Temp 97.9 F 03/05/22 11:39 Pulse 90 03/05/22 11:53 Resp 16 03/05/22 11:39 BP 161/88 03/05/22 11:39 Pulse Ox 96 03/05/22 11:39 FiO2 Intake & Output 03/04/22 03/05/22 03/05/22 18:59 06:59 18:59 Intake Total 900 476 Output Total 200 Balance 700 476 Weight 48.6 kg Intake: Oral 900 476 Output: Urine 200 Other: Voiding Method Urinal Toilet Urinal # Voids 2 - Exam GENERAL EXAM: Alert, 61-year-old male, resting comfortably in bed, on 2 L/m per nasal cannula, comfortable in no apparent distress. HEAD: Normocephalic. EYES: Normal reaction of pupils, equal size. NOSE: Clear with pink turbinates. THROAT: No erythema or exudates. NECK: No masses, no JVD. CHEST: No chest wall deformity. LUNGS: Equal air entry with crackles in the right lung base. CVS: S1 and S2 normal with no audible murmur, regular rhythm. ABDOMEN: No hepatosplenomegaly, normal bowel sounds, no guarding or rigidity. SPINE: No scoliosis or deformity SKIN: No rashes CENTRAL NERVOUS SYSTEM: No focal deficits, tone is normal in all 4 extremities. EXTREMITIES: Dressing to the right foot dry and intact. There is no peripheral edema. No clubbing, no cyanosis. Peripheral pulses are intact. - Labs CBC & Chem 7: 03/04/22 07:56 03/04/22 07:56 Labs: Abnormal Lab Results - Last 24 Hours (Table) 03/04/22 03/04/22 03/05/22 Range/Units 16:13 20:34 02:24 POC Glucose (mg/dL) 243 H 348 H 343 H (70-110) mg/dL 03/05/22 03/05/22 Range/Units 06:03 11:34 POC Glucose (mg/dL) 345 H 222 H (70-110) mg/dL Microbiology - Last 24 Hours (Table) 03/01/22 14:40 Blood Culture - Preliminary Blood No Growth after 72 hours 03/01/22 14:25 Blood Culture - Preliminary Blood No Growth after 72 hours Assessment and Plan Assessment: Shortness of breath with abnormal CT of the chest and chest x-ray showing bilateral opacities and pleural effusions, status post right sided thoracentesis, and the pleural effusion seems to be suspicious for chylothorax. However triglyceride level is pending. Lab was contacted today and results are pending. Otherwise, most likely transudate with a total protein of 2.4 and an LDH of 83. Nonspecific mediastinal and axillary adenopathy, will need to be further evaluated, underlying malignancy to be considered. If the fluid is truly chylothorax, this may imply that we may be dealing with lymphoma and the workup should proceed that way to rule out lymphoma. However considering the fluid was present a few months ago very similar presentation and resolved with diuretics, restarted the patient back on diuretics low dose. Right foot cellulitis and skin ulcers/diabetic foot ulcers positive for enterococcus faecalis, patient is on Unasyn on outpatient basis via PICC line. Insulin-dependent diabetes. History of seizure disorder Possible osteomyelitis right foot. Currently on Unasyn. PICC line being placed. Plan: The patient was seen and evaluated Chest x-ray, labs and medications reviewed Improved aeration of the lungs, small bilateral effusions Initiated on Tessalon Perles Remains on diuretics Remains on Unasyn for diabetic ulcer of the foot Continued on bronchodilators Titrate down the FiO2 as tolerated We will continue to follow I have personally seen and examined the patient, performed the documentation and the assessment and plan as written. Number of minutes spent on the visit: 10.
[2022-03-05 15:29] LABS: Glucose,Whole Blood 50 mg/dL (70-110)
[2022-03-05 15:46] LABS: Glucose,Whole Blood 152 mg/dL (70-110)
[2022-03-05 16:36] LABS: Glucose,Whole Blood 86 mg/dL (70-110)
[2022-03-05 16:43] LABS: Glucose,Whole Blood 71 mg/dL (70-110)
[2022-03-05 19:50] LABS: Glucose,Whole Blood 170 mg/dL (70-110)
[2022-03-05] MEDS: ATORVASTATIN 20 MG TAB PO SCH (21:35)
[2022-03-05] MEDS: LATANOPROST 0.005% OPHTH DROPS 2.5 ML BTL BOTH EYES SCH (21:37)
[2022-03-05] MEDS: ONDANSETRON 4 MG TAB PO PRN (22:21)
[2022-03-06] MEDS: AMPICILLIN-SULBACTAM 3 GM in SODIUM CHLORIDE 0.9% 100 ML IVPB SCH ×5 (01:03→23:57)
[2022-03-06 01:18] LABS: Glucose,Whole Blood 206 mg/dL (70-110)
[2022-03-06 02:42] LABS: Glucose,Whole Blood 206 mg/dL (70-110)
[2022-03-06] MEDS: SODIUM CHLORIDE 0.9% 1,000 ML IV SCH ×2 (06:00→21:56)
[2022-03-06 06:08] LABS: Glucose,Whole Blood 178 mg/dL (70-110)
[2022-03-06] MEDS: PANTOPRAZOLE 40 MG TABLET PO SCH ×2 (07:00→20:29)
[2022-03-06] MEDS: INSULIN ASPART (NovoLOG) 100 UNIT/ML VIAL SQ SCH ×7 (07:00→21:51)
[2022-03-06] MEDS: INSULIN DETEMIR (LEVEMIR) 100 UNIT/ML SYR SQ SCH (07:02)
[2022-03-06] MEDS: IPRATROPIUM-ALBUTEROL 3 ML NEB INHALATION SCH ×4 (08:15→19:11)
[2022-03-06] MEDS: HEPARIN SODIUM,PORCINE/PF 5,000 UNIT/0.5 ML SYRINGE SQ SCH ×2 (08:28→20:29)
[2022-03-06] MEDS: ASPIRIN 325 MG TAB PO SCH (08:28)
[2022-03-06] MEDS: NITROGLYCERIN OINT 1 INCH/GM PACKET TOPICAL SCH ×4 (08:29→20:29)
[2022-03-06] MEDS: PHENYTOIN SODIUM EXTENDED 100 MG CAP PO SCH ×2 (08:29→20:28)
[2022-03-06] MEDS: METOPROLOL TARTRATE 25 MG TAB PO SCH ×3 (08:29→20:29)
[2022-03-06] MEDS: FUROSEMIDE 40 MG TAB PO SCH (08:29)
[2022-03-06] MEDS: BENZONATATE 100 MG CAP PO PRN ×3 (08:29→21:56)
[2022-03-06] MEDS: PIOGLITAZONE 15 MG TAB PO SCH (08:37)
[2022-03-06 09:47] LABS: Anisocytosis Slight; Basophils # (A) 0.1 k/uL (0-0.2); Basophils % (A) 1 %; Eosinophils # (A) 0.4 k/uL (0-0.7); Eosinophils % (A) 5 %; HCT 28.9 % (39.0-53.0); HGB 8.7 gm/dL (13.0-17.5); Hypochromasia Marked; Lymphocytes # (A) 1.4 k/uL (1.0-4.8); Lymphocytes % (A) 16 %; MCH 23.8 pg (25.0-35.0); MCHC 29.9 g/dL (31.0-37.0); MCV 79.5 fL (80.0-100.0); Mean Platelet Volume 7.5; Microcytosis Slight; Monocytes # (A) 0.5 k/uL (0-1.0); Monocytes % (A) 6 %; Neutrophils # (A) 5.8 k/uL (1.3-7.7); Neutrophils % (A) 70 %; Platelet Count 536 k/uL (150-450); RBC 3.64 m/uL (4.30-5.90); RDW 17.9 % (11.5-15.5); WBC 8.3 k/uL (3.8-10.6)
[2022-03-06 10:09] LABS: Calcium 8.2 mg/dL (8.4-10.2); Potassium 4.3 mmol/L (3.5-5.1)
--- NOTE | 2022-03-06 10:10 | IR ---
PICC LINE CHECK: HISTORY: Unable to aspirate or flush catheter PROCEDURE: Fluoroscopic evaluation of the right arm PICC DEPUTY JAILER: Dr. Jay COMPLICATIONS: None ANESTHESIA: None FINDINGS/TECHNIQUE: The procedure was explained to the patient. The risks, complications, benefits and alternatives were discussed and any questions were answered. Informed consent was obtained. The PICC was unable to be aspirated or flushed, but upon removal of the dressing, the PICC was kinked. Af ter straightening the catheter, the PICC aspirated and flushed freely. A new sterile dressing was debi aisha. Fluoroscopy demonstrates the PICC terminating within the distal SVC. The patient was stable thro ughout the procedure and remained stable upon discharge from the Department of Radiology. FLUOROSCOPY TIME: 0.1 minutes IMPRESSION: Existing PICC was kinked, accounting for the inability to aspirate or flush. This was straightened an d a new dressing placed. The PICC now functions appropriately. Fluoroscopy confirms appropriate posit ioning within the distal SVC.
[2022-03-06 11:35] LABS: Glucose,Whole Blood 104 mg/dL (70-110)
--- NOTE | 2022-03-06 14:56 | P.PN ---
Subjective Progress Note Date: 03/06/22 Principal diagnosis: Right foot osteomyelitis and question of pneumonia Patient is a 61-year-old male with multiple comorbidities including diabetes mellitus the patient did have right diabetic foot infection with a nonhealing wound on the plantar aspect of the right foot and underlying osteomyelitis in this patient who is status post debridement of the wound local culture positive for Enterococcus faecalis patient did get a PICC line and was advised six-week course of IV Unasyn with the patient was currently receiving at the local skilled nursing patient apparently has been sent to the ER for evaluation of increasing shortness of breath, patient noticed to have a right-sided effusion status post thoracocentesis and there is concern for possible chylothorax throat is mostly transudate and the patient did have normal pro- calcitonin. On today's evaluation her that is 03/06/2022, the patient denies any fever or chills, the patient is breathing comfortably on 2 L nasal cannula, patient denies chest pain, the patient continue to complain of cough and bring up some sputum or hemoptysis, no nausea no vomiting no abdominal pain or pain to the right foot wound area Objective - Vital Signs Vital signs: Vital Signs Temp 98 F 03/06/22 08:00 Pulse 90 03/06/22 11:08 Resp 16 03/06/22 08:00 BP 149/81 03/06/22 08:00 Pulse Ox 96 03/06/22 08:16 FiO2 Intake & Output 03/05/22 03/06/22 03/06/22 18:59 06:59 18:59 Intake Total 1394 476 Balance 1394 476 Weight 50.7 kg Intake: Intake, IV Titration 800 Amount Ampicillin-Sulbactam 3 gm 200 In Sodium Chloride 0.9% 100 ml @ 200 mls/hr IVPB Q6HR ERIN Rx#:[id number] Sodium Chloride 0.9% 1, 600 000 ml @ 75 mls/hr IV . [id number] ERIN Rx#:[id number] Oral 594 476 Other: Voiding Method Toilet Urinal Urinal # Voids 3 1 # Bowel Movements 0 - Exam GENERAL DESCRIPTION: Middle-aged male lying in bed in no distress RESPIRATORY SYSTEM: Unlabored breathing , decreased breath sounds at bases HEART: S1 S2 regular rate and rhythm , ABDOMEN: Soft , no tenderness EXTREMITIES: Right foot wound is currently dressed no drainage on the dressing - Labs CBC & Chem 7: 03/06/22 09:08 03/06/22 09:08 Labs: Abnormal Lab Results - Last 24 Hours (Table) 03/05/22 03/05/22 03/05/22 Range/Units 15:24 15:44 19:49 RBC (4.30-5.90) m/uL Hgb (13.0-17.5) gm/dL Hct (39.0-53.0) % MCV (80.0-100.0) fL MCH (25.0-35.0) pg MCHC (31.0-37.0) g/dL RDW (11.5-15.5) % Plt Count (150-450) k/uL Sodium (137-145) mmol/L BUN (9-20) mg/dL Glucose (74-99) mg/dL POC Glucose (mg/dL) 50 L 152 H 170 H (70-110) mg/dL Calcium (8.4-10.2) mg/dL 03/06/22 03/06/22 03/06/22 Range/Units 01:17 02:40 06:06 RBC (4.30-5.90) m/uL Hgb (13.0-17.5) gm/dL Hct (39.0-53.0) % MCV (80.0-100.0) fL MCH (25.0-35.0) pg MCHC (31.0-37.0) g/dL RDW (11.5-15.5) % Plt Count (150-450) k/uL Sodium (137-145) mmol/L BUN (9-20) mg/dL Glucose (74-99) mg/dL POC Glucose (mg/dL) 206 H 206 H 178 H (70-110) mg/dL Calcium (8.4-10.2) mg/dL 03/06/22 03/06/22 Range/Units 09:08 09:08 RBC 3.64 L (4.30-5.90) m/uL Hgb 8.7 L (13.0-17.5) gm/dL Hct 28.9 L (39.0-53.0) % MCV 79.5 L (80.0-100.0) fL MCH 23.8 L (25.0-35.0) pg MCHC 29.9 L (31.0-37.0) g/dL RDW 17.9 H (11.5-15.5) % Plt Count 536 H (150-450) k/uL Sodium 135 L (137-145) mmol/L BUN 22 H (9-20) mg/dL Glucose 162 H (74-99) mg/dL POC Glucose (mg/dL) (70-110) mg/dL Calcium 8.2 L (8.4-10.2) mg/dL Microbiology - Last 24 Hours (Table) 03/01/22 14:40 Blood Culture - Preliminary Blood No Growth after 96 hours 03/01/22 14:25 Blood Culture - Preliminary Blood No Growth after 96 hours Assessment and Plan (1) Diabetic foot ulcer Current Visit: No Status: Acute Code(s): E11.621 - TYPE 2 DIABETES MELLITUS WITH FOOT ULCER; L97.509 - NON-PRESSURE CHRONIC ULCER OTH PRT UNSP FOOT W UNSP SEVERITY SNOMED Code(s): 801852508 (2) Infected wound Current Visit: No Status: Acute Code(s): T14.8XXA - OTHER INJURY OF UNSPECIFIED BODY REGION, INITIAL ENCOUNTER; L08.9 - LOCAL INFECTION OF THE SKIN AND SUBCUTANEOUS TISSUE, UNSP SNOMED Code(s): 08227925 Plan: 1patient with right diabetic foot infection with underlying ostial myelitis secondary to Enterococcus faecalis for the patient was currently getting Unasyn and local skilled nursing patient right foot plantar wound seems to be healing well without evidence of any surrounding redness or any foul-smelling drainage. 2patient no with right-sided effusion possibly related to cardiac etiology currently waiting for the triglyceride to rule out chylothorax with a normal pro-calcitonin will make pneumonia less likely 3 local wound care to the right foot plantar wound with Aquacel silver dressing changed every 48 hour. 4patient to continue with Unasyn to finish a 6 week course of therapy and continue supportive care Time with Patient: Less than 30
--- NOTE | 2022-03-06 16:07 | P.PN ---
Subjective Progress Note Date: 03/06/22 this is a 61-year-old white male with history of chronic right foot diabetic foot ulcers, history of peripheral vessel occlusive disease,diabetes, patient is at the [facility] receiving IV antibiotics via PICC line for his right foot diabetic ulcer. Patient presented to the ER today with 1 week history of s hortness of breath and cough.describes the cough as nonproductive cough mostly dry cough, denies any fever or chills, denies any chest pain, no hemoptysis, no nausea, no vomiting, no abdominal pain.chest x-ray in the ER showed evidence of bilateral interstitial type of edema, pleural effusions, right more than left pleural effusions noted,perihilar opacities noted especially in the right lungpatient was noted to have a bit of a leukocytosis with WBC count of 13.3 hemoglobin 9.6.d-dimer 1.15BNP level normal. Screening for influenza A, influenza B, RSV, and COVID-19 were all negative. I happened to be in the ER at the time, I evaluated the patient, and I went ahead and performed a right sided thoracentesis with ultrasound guidance, and I was able to get 950 mL of light. Make looking fluid which was sent for different diagnostic studiesin the meantime the patient will be admitted, he'll be placed on antibiotics/Zosyn empirically, and he'll be placed on updrafts. Patient was reevaluated today on 03/02/22, patient underwent uneventful right sided thoracentesis yesterday, the fluid came back transudate of in nature, cholesterol level is low, triglyceride level is pending, the fluid looked like be anemic, hence I was concerned about the possibility of chylothorax. So far the triglyceride level is pending, if more than 110, this will imply chylothorax, and the differential diagnoses will completely point towards possible malignancy. However if the fluid does not seem to be chylothorax, then I believe the fluid is most likely cardiac in nature. Looking back at the patient few months ago, he had a similar presentation with bilateral pleural effusions treated mostly with diuretics. And the fluids have completely resolved. Hence I'm recommending that we start the patient on a low dose of Lasix today, and keep an eye on his chest x-ray in the next couple of days. Clinically the patient is doing well, triglycerides on the pleural effusion are pending. Patient is mostly on antibiotics for his foot cellulitis, and not for his lungs. Pro calcitonin level came back normal. WBC count is 7.8 hemoglobin 8.2 electrolytes are normal renal profile is normal, initial report on the fluid came back mostly transudate of in nature. The patient is seen today 03/03/2022 in follow-up on the selective care unit. He is currently resting fairly comfortably in bed. Awake and alert in no acute distress. He is maintaining O2 saturations in the mid 90s on room air. He's afebrile. Hemodynamically stable. Follow-up chest x-ray reveals persistent right airspace opacities. Right-sided PICC line in place. Small left pleural effusion. Echocardiogram reveals preserved left ventricle systolic function with ejection fraction 55%. No significant valvular abnormalities. White count 9.1. Hemoglobin 8.9. Platelets 523. Sodium 135. Potassium 5.0. BUN 25. Creatinine 0.97. Glucose 279. He remains on Unasyn for his cellulitis. Continued on bronchodilators. Heparin for DVT prophylaxis. Continued on Lasix 20 mg IV every 12 hours. No accurate I&O. Triglyceride levels from the pleural fluid are still pending. Lab was contacted this morning. Awaiting results. The patient is seen today 03/04/2022 in follow-up on the selective care unit. He is resting comfortably in bed. Awake and alert in no acute distress. Maintaining O2 saturations in the 90s on 2 L/m per nasal cannula. Denies any worsening shortness of breath, cough or congestion. Blood cultures revealed no growth. Pleural fluid was transudate in nature with a total protein of 2.4 and LDH of 83. White count 8.5. He will be 9.1. Platelets 567. Sodium 138. Potassium 4.3. BUN 22. Creatinine 0.9. Blood sugar 157. He remains on DuoNeb inhalations. Continued on IV diuretics. No accurate I&O. Remains on antibiotics in the form of Unasyn. Heparin for DVT prophylaxis. The patient is seen today 03/05/2022 in follow-up on [facility] care unit. Sitting up in bed. Awake and alert in no acute distress. His main complaint today is that of cough that kept him up most of the night. He remains on DuoNeb inhalations. Continued on oral diuretics. Maintaining good O2 saturations in the mid 90s on 2 L/m per nasal cannula. Afebrile. Blood cultures revealed no growth. Blood sugar 222. ID is service is following regarding the diabetic wound and foot ulcer. Plan is for PICC line placement today. Continued on Unasyn. Follow up chest x-ray reveals small bilateral effusions. Improved aeration of the lungs with persistent multifocal airspace opacities The patient is seen today 03/06/2022 in follow-up on the selective care unit. He is resting comfortably in bed. Awake and alert in no acute distress. Last cough and congestion. Maintaining O2 saturations in the 90s on 2 L/m per nasal cannula. Normal saline at 75 ML's per hour. Lead cultures revealed no growth. White count 8.3. Hemoglobin 8.7. Sodium 135. Potassium 4.3. BUN 22. Creatinine 1.08. Glucose 162. He remains on DuoNeb inhalations. Unasyn for cellulitis. Heparin for DVT prophylaxis. Oral diuretics. Continued on Tessalon Perles Objective - Vital Signs Vital signs: Vital Signs Temp 98 F 03/06/22 08:00 Pulse 90 03/06/22 15:41 Resp 16 03/06/22 08:00 BP 149/81 03/06/22 08:00 Pulse Ox 96 03/06/22 08:16 FiO2 Intake & Output 03/05/22 03/06/22 03/06/22 18:59 06:59 18:59 Intake Total 1394 476 Balance 1394 476 Weight 50.7 kg Intake: Intake, IV Titration 800 Amount Ampicillin-Sulbactam 3 gm 200 In Sodium Chloride 0.9% 100 ml @ 200 mls/hr IVPB Q6HR ERIN Rx#:[id number] Sodium Chloride 0.9% 1, 600 000 ml @ 75 mls/hr IV . [id number] ERIN Rx#:[id number] Oral 594 476 Other: Voiding Method Toilet Urinal Urinal # Voids 3 1 # Bowel Movements 0 - Exam GENERAL EXAM: Alert, 61-year-old male, on 2 L/m per nasal cannula, comfortable in no apparent distress. HEAD: Normocephalic. EYES: Normal reaction of pupils, equal size. NOSE: Clear with pink turbinates. THROAT: No erythema or exudates. NECK: No masses, no JVD. CHEST: No chest wall deformity. LUNGS: Equal air entry with crackles in the right lung base. CVS: S1 and S2 normal with no audible murmur, regular rhythm. ABDOMEN: No hepatosplenomegaly, normal bowel sounds, no guarding or rigidity. SPINE: No scoliosis or deformity SKIN: No rashes CENTRAL NERVOUS SYSTEM: No focal deficits, tone is normal in all 4 extremities. EXTREMITIES: Dressing to the right foot dry and intact. There is no peripheral edema. No clubbing, no cyanosis. Peripheral pulses are intact. - Labs CBC & Chem 7: 03/06/22 09:08 03/06/22 09:08 Labs: Abnormal Lab Results - Last 24 Hours (Table) 03/05/22 03/06/22 03/06/22 Range/Units 19:49 01:17 02:40 RBC (4.30-5.90) m/uL Hgb (13.0-17.5) gm/dL Hct (39.0-53.0) % MCV (80.0-100.0) fL MCH (25.0-35.0) pg MCHC (31.0-37.0) g/dL RDW (11.5-15.5) % Plt Count (150-450) k/uL Sodium (137-145) mmol/L BUN (9-20) mg/dL Glucose (74-99) mg/dL POC Glucose (mg/dL) 170 H 206 H 206 H (70-110) mg/dL Calcium (8.4-10.2) mg/dL 03/06/22 03/06/22 03/06/22 Range/Units 06:06 09:08 09:08 RBC 3.64 L (4.30-5.90) m/uL Hgb 8.7 L (13.0-17.5) gm/dL Hct 28.9 L (39.0-53.0) % MCV 79.5 L (80.0-100.0) fL MCH 23.8 L (25.0-35.0) pg MCHC 29.9 L (31.0-37.0) g/dL RDW 17.9 H (11.5-15.5) % Plt Count 536 H (150-450) k/uL Sodium 135 L (137-145) mmol/L BUN 22 H (9-20) mg/dL Glucose 162 H (74-99) mg/dL POC Glucose (mg/dL) 178 H (70-110) mg/dL Calcium 8.2 L (8.4-10.2) mg/dL Microbiology - Last 24 Hours (Table) 03/01/22 14:40 Blood Culture - Preliminary Blood No Growth after 96 hours 03/01/22 14:25 Blood Culture - Preliminary Blood No Growth after 96 hours Assessment and Plan Assessment: Shortness of breath with abnormal CT of the chest and chest x-ray showing bilateral opacities and pleural effusions, status post right sided thoracentesis, and the pleural effusion seems to be suspicious for chylothorax. However triglyceride level is pending. Lab was contacted today and results are pending. Otherwise, most likely transudate with a total protein of 2.4 and an LDH of 83. Nonspecific mediastinal and axillary adenopathy, will need to be further evaluated, underlying malignancy to be considered. If the fluid is truly chylothorax, this may imply that we may be dealing with lymphoma and the workup should proceed that way to rule out lymphoma. However considering the fluid was present a few months ago very similar presentation and resolved with diuretics, restarted the patient back on diuretics low dose. Right foot cellulitis and skin ulcers/diabetic foot ulcers positive for enterococcus faecalis, patient is on Unasyn on outpatient basis via PICC line. Insulin-dependent diabetes. History of seizure disorder Possible osteomyelitis right foot. Currently on Unasyn. PICC line being placed. Plan: The patient was seen and evaluated Labs and medications reviewed Continue the current treatment plan Titrate down the FiO2 as tolerated Plan is for subacute rehabilitation post discharge We will continue to follow I have personally seen and examined the patient, performed the documentation and the assessment and plan as written. Number of minutes spent on the visit: 10.
[2022-03-06 16:15] LABS: Glucose,Whole Blood 133 mg/dL (70-110)
--- NOTE | 2022-03-06 16:34 | XR ---
EXAMINATION TYPE: XR chest 1V portable DATE OF EXAM: 03/06/2022 3:32 PM COMPARISON: Chest radiographs from 02/25/2022. TECHNIQUE: XR chest 1V portable Portable AP radiograph of the chest. CLINICAL INDICATION:Male, 61 years old with history of sob; FINDINGS: Lungs/Pleura: Similar multifocal airspace opacities. No evidence of pneumothorax or pleural effusion. Pulmonary vascularity: Unremarkable. Heart/mediastinum: Cardiomediastinal silhouette is unremarkable. Musculoskeletal: No acute osseous pathology. Other findings: None Lines/Tubes: Stable right PICC. IMPRESSION: Similar multifocal airspace opacities.
[2022-03-06 16:48] LABS: Glucose,Whole Blood 127 mg/dL (70-110)
[2022-03-06 20:09] LABS: Glucose,Whole Blood 169 mg/dL (70-110)
[2022-03-06] MEDS: LATANOPROST 0.005% OPHTH DROPS 2.5 ML BTL BOTH EYES SCH (20:29)
[2022-03-06] MEDS: ATORVASTATIN 20 MG TAB PO SCH (20:29)
--- NOTE | 2022-03-07 00:29 | P.PN ---
Subjective Progress Note Date: 03/05/22 Patient is a 61-year-old male with a known history of chronic diabetic foot ulcer with cultures growing Enterococcus faecalis and is currently on Unasyn at [facility], hypertension, hyperlipidemia, diabetes type 2, osteoarthritis, seizure disorder, bilateral peripheral neuropathy, depression and other medical problems was sent to ER with complaints of shortness of breath which is worsening for the past 1 week along with cough which is mainly nonproductive. No fever or chills. No complains of chest pain. No nausea vomiting abdominal pain or diarrhea. Chest x-ray on admission showed correlate for interval development of CHF with patchy pulmonary edema. Moderate right greater than left pleural effusion. Laboratory data cerebrospinal 0.3 hemoglobin 9.6 and platelets 505 Sodium 134, potassium 4.5 chloride 104 bicarb is 27 BUN 18 and creatinine 0.6 and blood sugar is 312 admission. Albumin 3.3 proBNP 476 D-dimer is 1.15 patient underwent thoracentesis by pulmonary in the ER. Patient is being covered on broad-spectrum antibiotics. 03/02/22 Patient is currently lying in bed. Awake alert and oriented. Breathing status is better today. Status post thoracentesis yesterday. Possible chylothorax is being considered. triglyceride level is pending. Patient is being continued on Lasix IV. Chest x-ray showed possible additional P infiltrates medial right base and left upper lobe. Patient is on antibiotics, Zosyn changed to Unasyn as per ID recommendations. Pulmonary is on board. Laboratory data showed WBC 7.8 hemoglobin 8.2 and platelets 481 Sodium 137 potassium 4.4 BUN 21 and creatinine 0.97 and pressure was 58. 03/03/22 Patient is seen resting in the bed. Awake alert and oriented 3. No complaints of chest pain or worsening shortness of breath. Currently titrated down to room air. Afebrile. No nausea vomiting abdominal pain or diarrhea. Repeat chest x-ray today showed persistent right 8 passes which have increased from prior. Wade peak distal tip in appropriate position. Small left pleural effusion. Patient remains on antibiotics the form Unasyn. Also being continued on Lasix. 2-D echocardiogram for normal ejection fraction. No significant wall motion abnormalities noted. laboratory data reviewed. 03/04/22 Patient is currently in [facility]. Lying in bed. Awake alert and oriented 3. No complaints of fever or chills. Right foot pain is better and is being continued on being continued on Unasyn. Blood Cultures have been neg ative. Also on Lasix. Repeat chest x-ray today and tomorrow. He was hypoglycemic. Insulin dose was reduced. Was taking 50 units daily changed to 35 units along with sliding scale. WBC 8.5 hemoglobin 9.1 and platelets 567, bicarb is 31 BUN 22 and creatinine 0.9 and blood sugar is 33 this morning. 03/05/2022 Patient is currently lying in the bed. Awake alert and oriented x3. On oxygen at 2 L via nasal cannula. Denies any complaints of chest pain or worsening shortness of breath. Continued on IV antibiotics, Unasyn. IV Lasix changed to 40 mg p.o. daily. Patient's blood sugar was down to 50 today afternoon. Lantus dose decreased to 35 units and preprandial insulin was added. Patient is scheduled for PICC line placement today. Current medications reviewed. Objective - Vital Signs Vital signs: Vital Signs Temp 97.3 F L 03/05/22 16:00 Pulse 84 03/05/22 20:00 Resp 15 03/05/22 16:00 BP 153/81 03/05/22 16:00 Pulse Ox 93 L 03/05/22 18:56 FiO2 Intake & Output 03/05/22 03/05/22 03/06/22 06:59 18:59 06:59 Intake Total 1394 Balance 1394 Weight 48.6 kg Intake: Intake, IV Titration 800 Amount Ampicillin-Sulbactam 3 gm 200 In Sodium Chloride 0.9% 100 ml @ 200 mls/hr IVPB Q6HR ERIN Rx#:[id number] Sodium Chloride 0.9% 1, 600 000 ml @ 75 mls/hr IV . [id number] [facility] Rx#:[id number] Oral 594 Other: Voiding Method Toilet Toilet Urinal Urinal # Voids 2 3 - Exam PHYSICAL EXAMINATION: Patient is lying in the bed comfortably, no acute distress, awake alert but lethargic and weak. HEENT: Normocephalic. Neck is supple. Pupils reactive. Nostrils clear. Oral cavity is moist. Neck reveals no JVD, carotid bruits, or thyromegaly. CHEST EXAMINATION: Trachea is central. Symmetrical expansion. Right basilar crackles. Diminished basilar sounds.. No wheezing... CARDIAC: Normal S1, S2 with no gallops. No murmurs ABDOMEN: Soft. Bowel sounds normal. No organomegaly. No abdominal bruits. Extremities: reveal no edema. No clubbing or cyanosis Neurologically awake, alert, oriented 3 with well-coordinated movements. No focal deficits noted Skin: No rash. Patient does have right foot ulcer which is wrapped. Psychiatric: Coperative. Nonsuicidal Musculoskeletal: No joint swelling or deformity. Normal range of motion. - Labs CBC & Chem 7: 03/06/22 09:08 03/06/22 09:08 Labs: Abnormal Lab Results - Last 24 Hours (Table) 03/05/22 03/05/22 03/05/22 Range/Units 02:24 06:03 11:34 POC Glucose (mg/dL) 343 H 345 H 222 H (70-110) mg/dL 03/05/22 03/05/22 03/05/22 Range/Units 15:24 15:44 19:49 POC Glucose (mg/dL) 50 L 152 H 170 H (70-110) mg/dL Microbiology - Last 24 Hours (Table) 03/01/22 14:40 Blood Culture - Preliminary Blood No Growth after 96 hours 03/01/22 14:25 Blood Culture - Preliminary Blood No Growth after 96 hours Assessment and Plan Assessment: Worsening shortness of breath due to bilateral pleural effusions right greater than left. Suspicious for chylothorax. Status post right thoracentesis. Pleural fluid is transudative. Awaiting triglyceride level. Mediastinal and axillary lymphadenopathy. Possible underlying malignancy cannot be excluded. Right diabetic foot ulcer with recent wound cultures growing Enterococcus faecalis was maintained on Unasyn with PICC line. Hyperglycemia with uncontrolled diabetes type 2. Insulin-dependent. Patient had hypoglycemic episodes. Seizure disorder Hyperlipidemia Diabetic peripheral neuropathy Depression DVT prophylaxis with heparin subcu Plan: Patient will be continued on oxygen supplementation. Status post right thoracentesis. was on IV Lasix 20 mg twice daily. Changed to 40mg by mouth. Continue with broad-spectrum antibiotics in the form of Zosyn and follow-up wound cultures and blood cultures. Antibiotic changed to Unasyn. Continue the wound care. Patient will be started back on insulin regimen and sliding scale. Titrate insulin dose as needed. Pulmonary and ID is on board. Follow up closely. Time with Patient: Greater than 30
--- NOTE | 2022-03-07 00:32 | P.PN ---
Subjective Progress Note Date: 03/06/22 Patient is a 61-year-old male with a known history of chronic diabetic foot ulcer with cultures growing Enterococcus faecalis and is currently on Unasyn at [facility], hypertension, hyperlipidemia, diabetes type 2, osteoarthritis, seizure disorder, bilateral peripheral neuropathy, depression and other medical problems was sent to ER with complaints of shortness of breath which is worsening for the past 1 week along with cough which is mainly nonproductive. No fever or chills. No complains of chest pain. No nausea vomiting abdominal pain or diarrhea. Chest x-ray on admission showed correlate for interval development of CHF with patchy pulmonary edema. Moderate right greater than left pleural effusion. Laboratory data cerebrospinal 0.3 hemoglobin 9.6 and platelets 505 Sodium 134, potassium 4.5 chloride 104 bicarb is 27 BUN 18 and creatinine 0.6 and blood sugar is 312 admission. Albumin 3.3 proBNP 476 D-dimer is 1.15 patient underwent thoracentesis by pulmonary in the ER. Patient is being covered on broad-spectrum antibiotics. 03/02/22 Patient is currently lying in bed. Awake alert and oriented. Breathing status is better today. Status post thoracentesis yesterday. Possible chylothorax is being considered. triglyceride level is pending. Patient is being continued on Lasix IV. Chest x-ray showed possible additional P infiltrates medial right base and left upper lobe. Patient is on antibiotics, Zosyn changed to Unasyn as per ID recommendations. Pulmonary is on board. Laboratory data showed WBC 7.8 hemoglobin 8.2 and platelets 481 Sodium 137 potassium 4.4 BUN 21 and creatinine 0.97 and pressure was 58. 03/03/22 Patient is seen resting in the bed. Awake alert and oriented 3. No complaints of chest pain or worsening shortness of breath. Currently titrated down to room air. Afebrile. No nausea vomiting abdominal pain or diarrhea. Repeat chest x-ray today showed persistent right 8 passes which have increased from prior. Wade peak distal tip in appropriate position. Small left pleural effusion. Patient remains on antibiotics the form Unasyn. Also being continued on Lasix. 2-D echocardiogram for normal ejection fraction. No significant wall motion abnormalities noted. laboratory data reviewed. 03/04/22 Patient is currently in [facility]. Lying in bed. Awake alert and oriented 3. No complaints of fever or chills. Right foot pain is better and is being continued on being continued on Unasyn. Blood Cultures have been neg ative. Also on Lasix. Repeat chest x-ray today and tomorrow. He was hypoglycemic. Insulin dose was reduced. Was taking 50 units daily changed to 35 units along with sliding scale. WBC 8.5 hemoglobin 9.1 and platelets 567, bicarb is 31 BUN 22 and creatinine 0.9 and blood sugar is 33 this morning. 03/05/2022 Patient is currently lying in the bed. Awake alert and oriented x3. On oxygen at 2 L via nasal cannula. Denies any complaints of chest pain or worsening shortness of breath. Continued on IV antibiotics, Unasyn. IV Lasix changed to 40 mg p.o. daily. Patient's blood sugar was down to 50 today afternoon. Lantus dose decreased to 35 units and preprandial insulin was added. Patient is scheduled for PICC line placement today. 03/06/2022 Patient is resting in the bed. Awake alert and oriented x3. No complaints of chest pain or shortness of breath. No nausea vomiting or abdominal pain or diarrhea. No cough or sputum production. Patient is currently 2 L oxygen via nasal cannula. Status post PICC line placement. Continue Zosyn currently. Also on Lasix 40 mg daily. Denied any complaints of fever or chills. Right foot dressing change was done. ID and pulmonary is on board. Laboratory data showed WBC 8.3 hemoglobin 8.7 and platelets 536 Blood sugar is better controlled now. Current medications reviewed. Objective - Vital Signs Vital signs: Vital Signs Temp 97.6 F 03/06/22 19:42 Pulse 90 03/06/22 19:42 Resp 20 03/06/22 19:42 BP 156/77 03/06/22 19:42 Pulse Ox 94 L 03/06/22 19:42 FiO2 Intake & Output 03/06/22 03/06/22 03/07/22 06:59 18:59 06:59 Intake Total 594 Balance 594 Weight 50.7 kg Intake: Oral 594 Other: Voiding Method Urinal Urinal # Voids 1 # Bowel Movements 0 - Exam PHYSICAL EXAMINATION: Patient is lying in the bed comfortably, no acute distress, awake alert but leth argic and weak. HEENT: Normocephalic. Neck is supple. Pupils reactive. Nostrils clear. Oral cavity is moist. Neck reveals no JVD, carotid bruits, or thyromegaly. CHEST EXAMINATION: Trachea is central. Symmetrical expansion. Right basilar crackles. No wheezing... CARDIAC: Normal S1, S2 with no gallops. No murmurs ABDOMEN: Soft. Bowel sounds normal. No organomegaly. No abdominal bruits. Extremities: reveal no edema. No clubbing or cyanosis Neurologically awake, alert, oriented 3 with well-coordinated movements. No focal deficits noted Skin: No rash. Patient does have right foot ulcer which is wrapped. Psychiatric: Coperative. Nonsuicidal Musculoskeletal: No joint swelling or deformity. Normal range of motion. - Labs CBC & Chem 7: 03/06/22 09:08 03/06/22 09:08 Labs: Abnormal Lab Results - Last 24 Hours (Table) 03/06/22 03/06/22 03/06/22 Range/Units 01:17 02:40 06:06 RBC (4.30-5.90) m/uL Hgb (13.0-17.5) gm/dL Hct (39.0-53.0) % MCV (80.0-100.0) fL MCH (25.0-35.0) pg MCHC (31.0-37.0) g/dL RDW (11.5-15.5) % Plt Count (150-450) k/uL Sodium (137-145) mmol/L BUN (9-20) mg/dL Glucose (74-99) mg/dL POC Glucose (mg/dL) 206 H 206 H 178 H (70-110) mg/dL Calcium (8.4-10.2) mg/dL 03/06/22 03/06/22 03/06/22 Range/Units 09:08 09:08 16:13 RBC 3.64 L (4.30-5.90) m/uL Hgb 8.7 L (13.0-17.5) gm/dL Hct 28.9 L (39.0-53.0) % MCV 79.5 L (80.0-100.0) fL MCH 23.8 L (25.0-35.0) pg MCHC 29.9 L (31.0-37.0) g/dL RDW 17.9 H (11.5-15.5) % Plt Count 536 H (150-450) k/uL Sodium 135 L (137-145) mmol/L BUN 22 H (9-20) mg/dL Glucose 162 H (74-99) mg/dL POC Glucose (mg/dL) 133 H (70-110) mg/dL Calcium 8.2 L (8.4-10.2) mg/dL 03/06/22 03/06/22 Range/Units 16:46 20:06 RBC (4.30-5.90) m/uL Hgb (13.0-17.5) gm/dL Hct (39.0-53.0) % MCV (80.0-100.0) fL MCH (25.0-35.0) pg MCHC (31.0-37.0) g/dL RDW (11.5-15.5) % Plt Count (150-450) k/uL Sodium (137-145) mmol/L BUN (9-20) mg/dL Glucose (74-99) mg/dL POC Glucose (mg/dL) 127 H 169 H (70-110) mg/dL Calcium (8.4-10.2) mg/dL Microbiology - Last 24 Hours (Table) 03/01/22 14:25 Blood Culture - Preliminary Blood No Growth after 120 hours 03/01/22 14:40 Blood Culture - Preliminary Blood No Growth after 120 hours Assessment and Plan Assessment: Worsening shortness of breath due to bilateral pleural effusions right greater than left. Suspicious for chylothorax. Status post right thoracentesis. Pleural fluid is transudative. Awaiting triglyceride level. Mediastinal and axillary lymphadenopathy. Possible underlying malignancy cannot be excluded. Right diabetic foot ulcer with recent wound cultures growing Enterococcus faecalis was maintained on Unasyn with PICC line. Hyperglycemia with uncontrolled diabetes type 2. Insulin-dependent. Patient had hypoglycemic episodes. Seizure disorder Hyperlipidemia Diabetic peripheral neuropathy Depression Iron deficiency anemia. DVT prophylaxis with heparin subcu Plan: Patient will be continued on oxygen supplementation. Status post right thoracentesis. was on IV Lasix 20 mg twice daily. Changed to 40mg by mouth. Continued with broad-spectrum antibiotics in the form of Zosyn and follow-up wound cultures and blood cultures. Antibiotic changed to Unasyn. Continue the wound care. Patient was started back on insulin regimen and sliding scale. Titrate insulin dose as needed. Pulmonary and ID is on board. Follow up closely. Time with Patient: Greater than 30
[2022-03-07 01:56] LABS: Glucose,Whole Blood 137 mg/dL (70-110)
[2022-03-07 03:53] LABS: Glucose,Whole Blood 119 mg/dL (70-110)
[2022-03-07] MEDS: AMPICILLIN-SULBACTAM 3 GM in SODIUM CHLORIDE 0.9% 100 ML IVPB SCH ×3 (05:59→17:56)
[2022-03-07] MEDS: PANTOPRAZOLE 40 MG TABLET PO SCH ×2 (05:59→21:03)
[2022-03-07] MEDS: BENZONATATE 100 MG CAP PO PRN ×2 (06:02→21:03)
[2022-03-07] MEDS: IPRATROPIUM-ALBUTEROL 3 ML NEB INHALATION SCH ×4 (07:20→18:24)
[2022-03-07 07:30] LABS: Glucose,Whole Blood 271 mg/dL (70-110)
[2022-03-07] MEDS: PIOGLITAZONE 15 MG TAB PO SCH (08:42)
[2022-03-07] MEDS: FUROSEMIDE 40 MG TAB PO SCH (08:42)
[2022-03-07] MEDS: PHENYTOIN SODIUM EXTENDED 100 MG CAP PO SCH ×2 (08:42→21:27)
[2022-03-07] MEDS: INSULIN DETEMIR (LEVEMIR) 100 UNIT/ML SYR SQ SCH (08:43)
[2022-03-07] MEDS: METOPROLOL TARTRATE 25 MG TAB PO SCH ×3 (08:43→21:03)
[2022-03-07] MEDS: HEPARIN SODIUM,PORCINE/PF 5,000 UNIT/0.5 ML SYRINGE SQ SCH ×2 (08:43→21:05)
[2022-03-07] MEDS: INSULIN ASPART (NovoLOG) 100 UNIT/ML VIAL SQ SCH ×7 (08:43→21:06)
[2022-03-07] MEDS: ASPIRIN 325 MG TAB PO SCH (08:43)
[2022-03-07] MEDS: NITROGLYCERIN OINT 1 INCH/GM PACKET TOPICAL SCH ×4 (08:43→21:03)
[2022-03-07 09:28] LABS: Albumin 2.67 g/dL (3.80-4.90); Gamma Globulin 1.23 g/dL (0.70-1.50)
[2022-03-07 10:52] LABS: Basophils # (A) 0.08 X 10*3/uL (0.00-0.10); Basophils % (A) 0.9 %; Eosinophils # (A) 0.36 X 10*3/uL (0.04-0.35); HGB 7.9 g/dL (13.0-17.0); Immature Grans, Automated 0.4 %; Lymphocytes # (A) 1.26 X 10*3/uL (0.90-5.00); Lymphocytes % (A) 13.9 %; MCH 23.2 pg (27.0-32.0); MCHC 30.4 g/dL (32.0-37.0); MCV 76.5 fL (80.0-97.0); Mean Platelet Volume 8.5 fL (9.5-12.2); Monocytes # (A) 0.72 X 10*3/uL (0.20-1.00); Monocytes % (A) 7.9 %; NRBC Per 100 WBC 0 /100 WBCS (0.0-0.0); Neutrophils # (A) 6.61 X 10*3/uL (1.80-7.70); Neutrophils % (A) 72.9 %; Platelet Count 483 X 10*3/uL (140-440); RDW 18.4 % (11.5-14.5); WBC 9.07 X 10*3/uL (4.50-10.00)
[2022-03-07 11:01] LABS: African American GFR (CKD) 75.2 (60.0-200.0); Anion Gap 9.1 mmol/L (10.00-18.00); BUN/Creat Ratio 20.17 Ratio (12.00-20.00); Blood Urea Nitrogen 24.2 mg/dL (9.0-27.0); Calcium 8.6 mg/dL (8.7-10.3); Carbon Dioxide 26.9 mmol/L (20.0-27.5); Non-African American GFR(CKD) 64.9 (60.0-200.0); Potassium 4.2 mmol/L (3.5-5.5)
[2022-03-07 11:11] LABS: Glucose,Whole Blood 112 mg/dL (70-110)
[2022-03-07] MEDS: FERROUS SULFATE 325 MG TAB PO SCH (12:12)
--- NOTE | 2022-03-07 14:00 | XR ---
EXAMINATION TYPE: XR chest 1V DATE OF EXAM: 03/07/2022 COMPARISON: 03/06/2022 HISTORY: Shortness of breath TECHNIQUE: Single frontal view of the chest is obtained. FINDINGS: There are multifocal airspace opacities throughout the right lung and in the left base. Th e left hemidiaphragm is completely obscured and the right hemidiaphragm partially obscured. The heart is not enlarged and there is no pulmonary vascular congestion. A right arm PICC tip terminates in th e distal SVC. There is a large amount of stool within the visualized portion of the splenic flexure c olon. IMPRESSION: Slight interval worsening of multifocal airspace opacities.
--- NOTE | 2022-03-07 15:24 | P.PN ---
Subjective Progress Note Date: 03/07/22 Principal diagnosis: CHF, pneumonia this is a 61-year-old white male with history of chronic right foot diabetic foot ulcers, history of peripheral vessel occlusive disease,diabetes, patient is at the [facility] receiving IV antibiotics via PICC line for his right foot diabetic ulcer. Patient presented to the ER today with 1 week history of shortness of breath and cough.describes the cough as nonproductive cough mostly dry cough, denies any fever or chills, denies any chest pain, no hemoptysis, no nausea, no vomiting, no abdominal pain.chest x-ray in the ER showed evidence of bilateral interstitial type of edema, pleural effusions, right more than left pleural effusions noted,perihilar opacities noted especially in the right lungpatient was noted to have a bit of a leukocytosis with WBC count of 13.3 hemoglobin 9.6.d-dimer 1.15BNP level normal. Screening for influenza A, influenza B, RSV, and COVID-19 were all negative. I happened to be in the ER at the time, I evaluated the patient, and I went ahead and performed a right sided thoracentesis with ultrasound guidance, and I was able to get 950 mL of light. Make looking fluid which was sent for different diagnostic studiesin the meantime the patient will be admitted, he'll be placed on antibiotics/Zosyn empirically, and he'll be placed on updrafts. Patient was reevaluated today on 03/02/22, patient underwent uneventful right sided thoracentesis yesterday, the fluid came back transudate of in nature, cholesterol level is low, triglyceride level is pending, the fluid looked like be anemic, hence I was concerned about the possibility of chylothorax. So far the triglyceride level is pending, if more than 110, this will imply chylothorax, and the differential diagnoses will completely point towards poss ible malignancy. However if the fluid does not seem to be chylothorax, then I believe the fluid is most likely cardiac in nature. Looking back at the patient few months ago, he had a similar presentation with bilateral pleural effusions treated mostly with diuretics. And the fluids have completely resolved. Hence I'm recommending that we start the patient on a low dose of Lasix today, and keep an eye on his chest x-ray in the next couple of days. Clinically the patient is doing well, triglycerides on the pleural effusion are pending. Patient is mostly on antibiotics for his foot cellulitis, and not for his lungs. Pro calcitonin level came back normal. WBC count is 7.8 hemoglobin 8.2 electrolytes are normal renal profile is normal, initial report on the fluid came back mostly transudate of in nature. The patient is seen today 03/03/2022 in follow-up on the selective care unit. Oscar mackey is currently resting fairly comfortably in bed. Awake and alert in no acute distress. He is maintaining O2 saturations in the mid 90s on room air. He's afebrile. Hemodynamically stable. Follow-up chest x-ray reveals persistent right airspace opacities. Right-sided PICC line in place. Small left pleural effusion. Echocardiogram reveals preserved left ventricle systolic function with ejection fraction 55%. No significant valvular abnormalities. White count 9.1. Hemoglobin 8.9. Platelets 523. Sodium 135. Potassium 5.0. BUN 25. Creatinine 0.97. Glucose 279. He remains on Unasyn for his cellulitis. Continued on bronchodilators. Heparin for DVT prophylaxis. Continued on Lasix 20 mg IV every 12 hours. No accurate I&O. Triglyceride levels from the pleural fluid are still pending. Lab was contacted this morning. Awaiting results. The patient is seen today 03/04/2022 in follow-up on the selective care unit. He is resting comfortably in bed. Awake and alert in no acute distress. Maintaining O2 saturations in the 90s on 2 L/m per nasal cannula. Denies any worsening shortness of breath, cough or congestion. Blood cultures revealed no growth. Pleural fluid was transudate in nature with a total protein of 2.4 and LDH of 83. White count 8.5. He will be 9.1. Platelets 567. Sodium 138. Potassium 4.3. BUN 22. Creatinine 0.9. Blood sugar 157. He remains on DuoNeb inhalations. Continued on IV diuretics. No accurate I&O. Remains on antibiotics in the form of Unasyn. Heparin for DVT prophylaxis. The patient is seen today 03/05/2022 in follow-up on the [facility] care unit. Sitting up in bed. Awake and alert in no acute distress. His main complaint t sowmya is that of cough that kept him up most of the night. He remains on DuoNeb inhalations. Continued on oral diuretics. Maintaining good O2 saturations in the mid 90s on 2 L/m per nasal cannula. Afebrile. Blood cultures revealed no growth. Blood sugar 222. ID is service is following regarding the diabetic wound and foot ulcer. Plan is for PICC line placement today. Continued on Unasyn. Follow up chest x-ray reveals small bilateral effusions. Improved aeration of the lungs with persistent multifocal airspace opacities The patient is seen today 03/06/2022 in follow-up on the selective care unit. He is resting comfortably in bed. Awake and alert in no acute distress. Last cough and congestion. Maintaining O2 saturations in the 90s on 2 L/m per nasal cannula. Normal saline at 75 ML's per hour. Lead cultures revealed no growth. White count 8.3. Hemoglobin 8.7. Sodium 135. Potassium 4.3. BUN 22. Creatinine 1.08. Glucose 162. He remains on DuoNeb inhalations. Unasyn for cellulitis. Heparin for DVT prophylaxis. Oral diuretics. Continued on Tessalon Perles I'm reevaluating this patient today on 03/07/2022 on a general medical floor. He is resting comfortably in bed, on 2 L nasal cannula. He denies any shortness of breath, cough, chest pain, fever. Patient is telling me that he is ready for discharge back to [facility]. He has no IV fluids infusing. Patient's vital signs remain stable. Patient's chest x-ray from today showed slightly interval worsening of the multifocal airspace bases. Patient remains afebrile. CBC from today is stable with a WBC count 9, hemoglobin 7.9, hematocrit 26, platelets 493,000. BMP from today also stable with a sodium 135, potassium 4.2, chloride 99, serum CO2 2724.2, creatinine 1.2, glucose 234. Patient's pain maintained on DuoNeb inhalation, Tessalon Perles persistent nonproductive cough, daily Lasix, and empiric Unasyn. Patient has been receiving heparin for DVT prophylaxis. Objective - Vital Signs Vital signs: Vital Signs Temp 97.6 F 03/07/22 13:15 Pulse 92 03/07/22 15:09 Resp 16 03/07/22 13:15 BP 143/77 03/07/22 13:15 Pulse Ox 94 L 03/07/22 13:15 FiO2 Intake & Output 03/06/22 03/07/22 03/07/22 18:59 06:59 18:59 Intake Total 594 1050 Balance 594 1050 Weight 52 kg Intake: Intake, IV Titration 400 Amount Ampicillin-Sulbactam 3 gm 200 In Sodium Chloride 0.9% 100 ml @ 200 mls/hr IVPB Q6HR ERIN Rx#:[id number] Sodium Chloride 0.9% 1, 200 000 ml @ 20 mls/hr IV . Q24H ERIN Rx#:[id number] Oral 594 650 Other: Voiding Method Urinal # Voids 2 # Bowel Movements 0 2 - Exam GENERAL EXAM: Alert, 61-year-old male, on 2 L/m per nasal cannula, comfortable in no apparent distress. HEAD: Normocephalic. EYES: Normal reaction of pupils, equal size. NOSE: Clear with pink turbinates. THROAT: No erythema or exudates. NECK: No masses, no JVD. CHEST: No chest wall deformity. LUNGS: Equal air entry auscultation. No wheezes, crackles, or rhonchi CVS: S1 and S2 normal with no audible murmur, regular rhythm. ABDOMEN: No hepatosplenomegaly, normal bowel sounds, no guarding or rigidity. SPINE: No scoliosis or deformity SKIN: No rashes CENTRAL NERVOUS SYSTEM: No focal deficits, tone is normal in all 4 extremities. EXTREMITIES: Dressing to the right foot dry and intact. There is no peripheral edema. No clubbing, no cyanosis. Peripheral pulses are intact. - Labs CBC & Chem 7: 03/07/22 07:10 03/07/22 07:10 Labs: Abnormal Lab Results - Last 24 Hours (Table) 03/01/22 03/06/22 03/06/22 Range/Units 21:05 16:13 16:46 RBC (4.40-5.60) X 10*6/uL Hgb (13.0-17.0) g/dL Hct (39.6-50.0) % MCV (80.0-97.0) fL MCH (27.0-32.0) pg MCHC (32.0-37.0) g/dL RDW (11.5-14.5) % Plt Count (140-440) X 10*3/uL MPV (9.5-12.2) fL Eosinophils # (0.04-0.35) X 10*3/uL Anion Gap (10.00-18.00) mmol/L BUN/Creatinine Ratio (12.00-20.00) Ratio Glucose (70-110) mg/dL POC Glucose (mg/dL) 133 H 127 H (70-110) mg/dL Calcium (8.7-10.3) mg/dL Albumin (PEP) 2.67 L (3.80-4.90) g/dL Szbwp-[id number] 0.43 H (0.10-0.40) g/dL 03/06/22 03/07/22 03/07/22 Range/Units 20:06 01:50 03:50 RBC (4.40-5.60) X 10*6/uL Hgb (13.0-17.0) g/dL Hct (39.6-50.0) % MCV (80.0-97.0) fL MCH (27.0-32.0) pg MCHC (32.0-37.0) g/dL RDW (11.5-14.5) % Plt Count (140-440) X 10*3/uL MPV (9.5-12.2) fL Eosinophils # (0.04-0.35) X 10*3/uL Anion Gap (10.00-18.00) mmol/L BUN/Creatinine Ratio (12.00-20.00) Ratio Glucose (70-110) mg/dL POC Glucose (mg/dL) 169 H 137 H 119 H (70-110) mg/dL Calcium (8.7-10.3) mg/dL Albumin (PEP) (3.80-4.90) g/dL Qsupe-9-[id number] (0.10-0.40) g/dL 03/07/22 03/07/22 03/07/22 Range/Units 07:10 07:10 07:28 RBC 3.40 L (4.40-5.60) X 10*6/uL Hgb 7.9 L (13.0-17.0) g/dL Hct 26.0 L (39.6-50.0) % MCV 76.5 L (80.0-97.0) fL MCH 23.2 L (27.0-32.0) pg MCHC 30.4 L (32.0-37.0) g/dL RDW 18.4 H (11.5-14.5) % Plt Count 483 H (140-440) X 10*3/uL MPV 8.5 L (9.5-12.2) fL Eosinophils # 0.36 H (0.04-0.35) X 10*3/uL Anion Gap 9.10 L (10.00-18.00) mmol/L BUN/Creatinine Ratio 20.17 H (12.00-20.00) Ratio Glucose 234 H (70-110) mg/dL POC Glucose (mg/dL) 271 H (70-110) mg/dL Calcium 8.6 L (8.7-10.3) mg/dL Albumin (PEP) (3.80-4.90) g/dL [place]kega-7-Rlulfypwx (0.10-0.40) g/dL 03/07/22 Range/Units 11:10 RBC (4.40-5.60) X 10*6/uL Hgb (13.0-17.0) g/dL Hct (39.6-50.0) % MCV (80.0-97.0) fL MCH (27.0-32.0) pg MCHC (32.0-37.0) g/dL RDW (11.5-14.5) % Plt Count (140-440) X 10*3/uL MPV (9.5-12.2) fL Eosinophils # (0.04-0.35) X 10*3/uL Anion Gap (10.00-18.00) mmol/L BUN/Creatinine Ratio (12.00-20.00) Ratio Glucose (70-110) mg/dL POC Glucose (mg/dL) 112 H (70-110) mg/dL Calcium (8.7-10.3) mg/dL Albumin (PEP) (3.80-4.90) g/dL Upluy-4-Svqnwbwhz (0.10-0.40) g/dL Microbiology - Last 24 Hours (Table) 03/01/22 14:25 Blood Culture - Preliminary Blood No Growth after 120 hours 03/01/22 14:40 Blood Culture - Preliminary Blood No Growth after 120 hours Assessment and Plan Assessment: Shortness of breath with abnormal CT of the chest and chest x-ray showing bilateral opacities and pleural effusions, status post right sided thoracentesis, and the pleural effusion seems to be suspicious for chylothorax. However triglyceride level is pending. Lab was contacted today and results are pending. Otherwise, most likely transudate with a total protein of 2.4 and an LDH of 83. Nonspecific mediastinal and axillary adenopathy, will need to be further evaluated, underlying malignancy to be considered. If the fluid is truly chylothorax, this may imply that we may be dealing with lymphoma and the workup should proceed that way to rule out lymphoma. However considering the fluid was present a few months ago very similar presentation and resolved with diuretics, restarted the patient back on diuretics low dose. Right foot cellulitis and skin ulcers/diabetic foot ulcers positive for e nterococcus faecalis, patient is on Unasyn on outpatient basis via PICC line. Insulin-dependent diabetes. History of seizure disorder Possible osteomyelitis right foot. Currently on Unasyn. PICC line being placed to continue treatment outpatient. Plan: The patient was seen and evaluated Patient's medications, labs, chest x-ray reviewed. Titrate down the FiO2 as tolerated She will continue IV antibiotics outpatient through PICC line. Plan is for discharge to [facility] after authorization is obtained. From a pulmonary standpoint patient is cleared for discharge. We will continue to follow I have personally seen and examined the patient, performed the documentation and the assessment and plan as written. Number of minutes spent on the visit: 10.
--- NOTE | 2022-03-07 15:54 | P.PN ---
Subjective Progress Note Date: 03/07/22 Principal diagnosis: Right foot osteomyelitis and question of pneumonia Patient is a 61-year-old male with multiple comorbidities including diabetes mellitus the patient did have right diabetic foot infection with a nonhealing wound on the plantar aspect of the right foot and underlying osteomyelitis in this patient who is status post debridement of the wound local culture positive for Enterococcus faecalis patient did get a PICC line and was advised six-week course of IV Unasyn with the patient was currently receiving at the local senior care patient apparently has been sent to the ER for evaluation of increasing shortness of breath, patient noticed to have a right-sided effusion status post thoracocentesis and there is concern for possible chylothorax throat is mostly transudate and the patient did have normal pro- calcitonin. On today's evaluation her that is 03/07/2022, the patient remains to be afebrile, the patient is breathing comfortably on 2 L nasal cannula, patient denies chest pain, the patient continue to complain of some cough with occasiona l sputum no hemoptysis is no chest pain no abdominal pain no diarrhea or pain to the right foot area Objective - Vital Signs Vital signs: Vital Signs Temp 98.4 F 03/07/22 07:30 Pulse 88 03/07/22 11:34 Resp 15 03/07/22 07:30 BP 162/85 03/07/22 07:30 Pulse Ox 99 03/07/22 07:30 FiO2 Intake & Output 03/06/22 03/07/22 03/07/22 18:59 06:59 18:59 Intake Total 594 1050 Balance 594 1050 Weight 52 kg Intake: Intake, IV Titration 400 Amount Ampicillin-Sulbactam 3 gm 200 In Sodium Chloride 0.9% 100 ml @ 200 mls/hr IVPB Q6HR ERIN Rx#:[id number] Sodium Chloride 0.9% 1, 200 000 ml @ 20 mls/hr IV . Q24H ERIN Rx#:[id number] Oral 594 650 Other: Voiding Method Urinal # Voids 2 # Bowel Movements 0 2 - Exam GENERAL DESCRIPTION: Middle-aged male lying in bed in no distress RESPIRATORY SYSTEM: Unlabored breathing , decreased breath sounds at bases HEART: S1 S2 regular rate and rhythm , ABDOMEN: Soft , no tenderness EXTREMITIES: Right foot wound is currently dressed no drainage on the dressing - Labs CBC & Chem 7: 03/07/22 07:10 03/07/22 07:10 Labs: Abnormal Lab Results - Last 24 Hours (Table) 03/01/22 03/06/22 03/06/22 Range/Units 21:05 16:13 16:46 RBC (4.40-5.60) X 10*6/uL Hgb (13.0-17.0) g/dL Hct (39.6-50.0) % MCV (80.0-97.0) fL MCH (27.0-32.0) pg MCHC (32.0-37.0) g/dL RDW (11.5-14.5) % Plt Count (140-440) X 10*3/uL MPV (9.5-12.2) fL Eosinophils # (0.04-0.35) X 10*3/uL Anion Gap (10.00-18.00) mmol/L BUN/Creatinine Ratio (12.00-20.00) Ratio Glucose (70-110) mg/dL POC Glucose (mg/dL) 133 H 127 H (70-110) mg/dL Calcium (8.7-10.3) mg/dL Albumin (PEP) 2.67 L (3.80-4.90) g/dL Hcrxz-0-Fmcqvwkgb 0.43 H (0.10-0.40) g/dL 03/06/22 03/07/22 03/07/22 Range/Units 20:06 01:50 03:50 RBC (4.40-5.60) X 10*6/uL Hgb (13.0-17.0) g/dL Hct (39.6-50.0) % MCV (80.0-97.0) fL MCH (27.0-32.0) pg MCHC (32.0-37.0) g/dL RDW (11.5-14.5) % Plt Count (140-440) X 10*3/uL MPV (9.5-12.2) fL Eosinophils # (0.04-0.35) X 10*3/uL Anion Gap (10.00-18.00) mmol/L BUN/Creatinine Ratio (12.00-20.00) Ratio Glucose (70-110) mg/dL POC Glucose (mg/dL) 169 H 137 H 119 H (70-110) mg/dL Calcium (8.7-10.3) mg/dL Albumin (PEP) (3.80-4.90) g/dL Pqpox-0-Pbgaauitr (0.10-0.40) g/dL 03/07/22 03/07/22 03/07/22 Range/Units 07:10 07:10 07:28 RBC 3.40 L (4.40-5.60) X 10*6/uL Hgb 7.9 L (13.0-17.0) g/dL Hct 26.0 L (39.6-50.0) % MCV 76.5 L (80.0-97.0) fL MCH 23.2 L (27.0-32.0) pg MCHC 30.4 L (32.0-37.0) g/dL RDW 18.4 H (11.5-14.5) % Plt Count 483 H (140-440) X 10*3/uL MPV 8.5 L (9.5-12.2) fL Eosinophils # 0.36 H (0.04-0.35) X 10*3/uL Anion Gap 9.10 L (10.00-18.00) mmol/L BUN/Creatinine Ratio 20.17 H (12.00-20.00) Ratio Glucose 234 H (70-110) mg/dL POC Glucose (mg/dL) 271 H (70-110) mg/dL Calcium 8.6 L (8.7-10.3) mg/dL Albumin (PEP) (3.80-4.90) g/dL Jjgyg-6-Jjcrifmqx (0.10-0.40) g/dL 03/07/22 Range/Units 11:10 RBC (4.40-5.60) X 10*6/uL Hgb (13.0-17.0) g/dL Hct (39.6-50.0) % MCV (80.0-97.0) fL MCH (27.0-32.0) pg MCHC (32.0-37.0) g/dL RDW (11.5-14.5) % Plt Count (140-440) X 10*3/uL MPV (9.5-12.2) fL Eosinophils # (0.04-0.35) X 10*3/uL Anion Gap (10.00-18.00) mmol/L BUN/Creatinine Ratio (12.00-20.00) Ratio Glucose (70-110) mg/dL POC Glucose (mg/dL) 112 H (70-110) mg/dL Calcium (8.7-10.3) mg/dL Albumin (PEP) (3.80-4.90) g/dL Ttccm-4-Soahuxogr (0.10-0.40) g/dL Microbiology - Last 24 Hours (Table) 03/01/22 14:25 Blood Culture - Preliminary Blood No Growth after 120 hours 03/01/22 14:40 Blood Culture - Preliminary Blood No Growth after 120 hours Assessment and Plan (1) Diabetic foot ulcer Current Visit: No Status: Acute Code(s): E11.621 - TYPE 2 DIABETES MELLITUS WITH FOOT ULCER; L97.509 - NON-PRESSURE CHRONIC ULCER OTH PRT UNSP FOOT W UNSP SEVERITY SNOMED Code(s): 222758445 (2) Infected wound Current Visit: No Status: Acute Code(s): T14.8XXA - OTHER INJURY OF UNSPECIFIED BODY REGION, INITIAL ENCOUNTER; L08.9 - LOCAL INFECTION OF THE SKIN AND SUBCUTANEOUS TISSUE, UNSP SNOMED Code(s): 57866826 Plan: 1patient with right diabetic foot infection with underlying ostial myelitis secondary to Enterococcus faecalis for the patient was currently getting Unasyn and local senior care patient right foot plantar wound seems to be healing well without evidence of any surrounding redness or any foul-smelling drainage. 2patient no with right-sided effusion possibly related to cardiac etiology currently waiting for the triglyceride to rule out chylothorax with a normal pro-calcitonin , chest x-ray however did shows slight worsening pulmonary is following the patient closely 3 local wound care to the right foot plantar wound with Aquacel silver dressing changed every 48 hour. 4patient currently being treated with Unasyn for his right diabetic foot ulcer and osteomyelitis and monitor clinical course closely Time with Patient: Less than 30
[2022-03-07 17:17] LABS: Glucose,Whole Blood 88 mg/dL (70-110)
[2022-03-07] MEDS: SODIUM CHLORIDE 0.9% 1,000 ML IV SCH (21:03)
[2022-03-07] MEDS: ATORVASTATIN 20 MG TAB PO SCH (21:03)
[2022-03-07] MEDS: LATANOPROST 0.005% OPHTH DROPS 2.5 ML BTL BOTH EYES SCH (21:06)
[2022-03-07 21:07] LABS: Glucose,Whole Blood 122 mg/dL (70-110)
[2022-03-07] MEDS: ONDANSETRON 4 MG TAB PO PRN (21:27)
[2022-03-07 23:15] LABS: Glucose,Whole Blood 83 mg/dL (70-110)
[2022-03-08] MEDS: AMPICILLIN-SULBACTAM 3 GM in SODIUM CHLORIDE 0.9% 100 ML IVPB SCH ×5 (00:05→23:18)
[2022-03-08 02:35] LABS: Glucose,Whole Blood 98 mg/dL (70-110)
[2022-03-08] MEDS: BENZONATATE 100 MG CAP PO PRN (05:38)
[2022-03-08] MEDS: PANTOPRAZOLE 40 MG TABLET PO SCH ×2 (05:38→20:48)
[2022-03-08] MEDS: IPRATROPIUM-ALBUTEROL 3 ML NEB INHALATION SCH ×4 (07:21→19:40)
[2022-03-08 07:23] LABS: Glucose,Whole Blood 121 mg/dL (70-110)
[2022-03-08] MEDS: INSULIN ASPART (NovoLOG) 100 UNIT/ML VIAL SQ SCH ×7 (07:27→20:44)
[2022-03-08 08:56] LABS: Basophils # (A) 0.07 X 10*3/uL (0.00-0.10); Basophils % (A) 0.9 %; Eosinophils # (A) 0.32 X 10*3/uL (0.04-0.35); HCT 27.3 % (39.6-50.0); HGB 8.3 g/dL (13.0-17.0); Immature Grans, Automated 0.3 %; Lymphocytes # (A) 1.68 X 10*3/uL (0.90-5.00); Lymphocytes % (A) 21.2 %; MCH 24.1 pg (27.0-32.0); MCHC 30.4 g/dL (32.0-37.0); MCV 79.4 fL (80.0-97.0); Mean Platelet Volume 8.8 fL (9.5-12.2); Monocytes # (A) 0.76 X 10*3/uL (0.20-1.00); Monocytes % (A) 9.6 %; NRBC Per 100 WBC 0 /100 WBCS (0.0-0.0); Neutrophils # (A) 5.07 X 10*3/uL (1.80-7.70); Platelet Count 494 X 10*3/uL (140-440); RBC 3.44 X 10*6/uL (4.40-5.60); WBC 7.92 X 10*3/uL (4.50-10.00)
[2022-03-08] MEDS: INSULIN DETEMIR (LEVEMIR) 100 UNIT/ML SYR SQ SCH (09:06)
[2022-03-08] MEDS: FUROSEMIDE 40 MG TAB PO SCH (09:07)
[2022-03-08] MEDS: PIOGLITAZONE 15 MG TAB PO SCH (09:07)
[2022-03-08] MEDS: METOPROLOL TARTRATE 25 MG TAB PO SCH ×3 (09:07→23:18)
[2022-03-08] MEDS: PHENYTOIN SODIUM EXTENDED 100 MG CAP PO SCH ×2 (09:07→20:49)
[2022-03-08] MEDS: NITROGLYCERIN OINT 1 INCH/GM PACKET TOPICAL SCH ×4 (09:07→23:19)
[2022-03-08] MEDS: FERROUS SULFATE 325 MG TAB PO SCH (09:07)
[2022-03-08] MEDS: HEPARIN SODIUM,PORCINE/PF 5,000 UNIT/0.5 ML SYRINGE SQ SCH ×2 (09:07→20:48)
[2022-03-08] MEDS: ASPIRIN 325 MG TAB PO SCH (09:07)
[2022-03-08 10:43] LABS: ALT 16 U/L (10-49); AST 27 U/L (14-35); African American GFR (CKD) 98.2 (60.0-200.0); Albumin 3.2 g/dL (3.8-4.9); Albumin/Globulin Ratio 1.05 (1.60-3.17); Alkaline Phosphatase 196 U/L (41-126); BUN/Creat Ratio 24.01 Ratio (12.00-20.00); Blood Urea Nitrogen 23.1 mg/dL (9.0-27.0); Calcium 8.9 mg/dL (8.7-10.3); Chloride 99 mmol/L (96-109); Globulin 3.1 g/dL (1.6-3.3); Glucose 116 mg/dL (70-110); Non-African American GFR(CKD) 84.8 (60.0-200.0); Potassium 4.3 mmol/L (3.5-5.5); Sodium 136 mmol/L (135-145); Total Bilirubin <0.15 mg/dL (0.30-1.20); Total Protein 6.3 g/dL (6.2-8.2)
[2022-03-08 11:11] LABS: Glucose,Whole Blood 150 mg/dL (70-110)
--- NOTE | 2022-03-08 12:13 | P.PN ---
Subjective Progress Note Date: 03/08/22 Principal diagnosis: Cough/shortness of breath. The patient is seen today 03/05/2022 in follow-up on selective care unit. Sitting up in bed. Awake and alert in no acute distress. His main complaint today is that of cough that kept him up most of the night. He remains on DuoNeb inhalations. Continued on oral diuretics. Maintaining good O2 saturations in the mid 90s on 2 L/m per nasal cannula. Afebrile. Blood cultures revealed no growth. Blood sugar 222. ID is service is following regarding the diabetic wound and foot ulcer. Plan is for PICC line placement today. Continued on Unasyn. Follow up chest x-ray reveals small bilateral effusions. Improved aeration of the lungs with persistent multifocal airspace opacities The patient is seen today 03/06/2022 in follow-up on the selective care unit. He is resting comfortably in bed. Awake and alert in no acute distress. Last cough and congestion. Maintaining O2 saturations in the 90s on 2 L/m per nasal cannula. Normal saline at 75 ML's per hour. Lead cultures revealed no growth. White count 8.3. Hemoglobin 8.7. Sodium 135. Potassium 4.3. BUN 22. Creatinine 1.08. Glucose 162. He remains on DuoNeb inhalations. Unasyn for cellulitis. Heparin for DVT prophylaxis. Oral diuretics. Continued on Tessalon Perles I'm reevaluating this patient today on 03/07/2022 on a general medical floor. He is resting comfortably in bed, on 2 L nasal cannula. He denies any shortness of breath, cough, chest pain, fever. Patient is telling me that he is ready for discharge back to [facility]. He has no IV fluids infusing. Patient's vital signs remain stable. Patient's chest x-ray from today showed slightly interval worsening of the multifocal airspace bases. Patient remains afebrile. CBC from today is stable with a WBC count 9, hemoglobin 7.9, hematocrit 26, platelets 493,000. BMP from today also stable with a sodium 135, potassium 4.2, chloride 99, serum CO2 2724.2, creatinine 1.2, glucose 234. Patient's pain maintained on DuoNeb inhalation, Tessalon Perles persistent nonproductive cough, daily Lasix, and empiric Unasyn. Patient has been receiving heparin for DVT prophylaxis. Progress note dated 03/08/2022. 61-year-old male, seen today in room 521. The patient remains on saline at 20 mL an hour, and 2 L of oxygen. Nurse mentioned that he may be discharged to a local retirement later today. Clinically, the patient is stable. He denies any worsening symptoms of shortness of breath, cough, wheezing, or phlegm production. He also denies any chest pain or pressure. White count 7.9, hemoglobin 8.3, hematocrit 27.3, and platelet count 494,000. Electrolytes look normal to me, including sodium, potassium, chloride, CO2, BUN, and creatinine. The patient C-reactive protein was 6.90. Pro-calcitonin level is normal at 0.09. Previous x-rays are reviewed. Objective - Vital Signs Vital signs: Vital Signs Temp 98.4 F 03/08/22 07:20 Pulse 84 03/08/22 11:12 Resp 16 03/08/22 07:20 BP 157/81 03/08/22 07:20 Pulse Ox 93 L 03/08/22 07:20 FiO2 Intake & Output 03/07/22 03/08/22 03/08/22 18:59 06:59 18:59 Intake Total 1040 Output Total 650 Balance 1040 -650 Weight 52.5 kg Intake: Intake, IV Titration 440 Amount Ampicillin-Sulbactam 3 gm 200 In Sodium Chloride 0.9% 100 ml @ 200 mls/hr IVPB Q6HR ERIN Rx#:[id number] Sodium Chloride 0.9% 1, 240 000 ml @ 20 mls/hr IV . Q24H ERIN Rx#:[id number] Oral 600 Output: Urine 650 Other: Voiding Method Bedside Commode Urinal # Voids 1 3 1 # Bowel Movements 1 1 - Exam No acute distress, oriented 3. No respiratory distress. Currently on 2 L of oxygen. HEENT examination is grossly unremarkable. Neck supple. Full range of motion. No adenopathy thyromegaly or neck vein distention. Cardiovascular examination reveals regular rhythm rate. S1-S2 normal. No S3 or S4. No discernible murmur noted. Heart rate 84 bpm. Lungs reveal scattered bilateral rhonchi. No wheezes or crackles. Breath sounds equal bilaterally. Saturations are 96% on 2 L. Abdomen soft bowel sounds are heard. No masses or tenderness. Extremities are intact. No cyanosis clubbing or edema. Skin is without rash or lesion. Neurologic examination is brief but nonfocal. - Labs CBC & Chem 7: 03/08/22 06:18 03/08/22 06:18 Labs: Abnormal Lab Results - Last 24 Hours (Table) 03/07/22 03/08/22 03/08/22 Range/Units 21:06 06:18 06:18 RBC 3.44 L (4.40-5.60) X 10*6/uL Hgb 8.3 L (13.0-17.0) g/dL Hct 27.3 L (39.6-50.0) % MCV 79.4 L (80.0-97.0) fL MCH 24.1 L (27.0-32.0) pg MCHC 30.4 L (32.0-37.0) g/dL RDW 18.0 H (11.5-14.5) % Plt Count 494 H (140-440) X 10*3/uL MPV 8.8 L (9.5-12.2) fL BUN/Creatinine Ratio 24.01 H (12.00-20.00) Ratio Glucose 116 H (70-110) mg/dL POC Glucose (mg/dL) 122 H (70-110) mg/dL Total Bilirubin <0.15 L (0.30-1.20) mg/dL Alkaline Phosphatase 196 H (41-126) U/L C-Reactive Protein 6.90 H (0.00-0.80) mg/dL Albumin 3.2 L (3.8-4.9) g/dL Albumin/Globulin Ratio 1.05 L (1.60-3.17) g/dL 03/08/22 03/08/22 Range/Units 07:22 11:10 RBC (4.40-5.60) X 10*6/uL Hgb (13.0-17.0) g/dL Hct (39.6-50.0) % MCV (80.0-97.0) fL MCH (27.0-32.0) pg MCHC (32.0-37.0) g/dL RDW (11.5-14.5) % Plt Count (140-440) X 10*3/uL MPV (9.5-12.2) fL BUN/Creatinine Ratio (12.00-20.00) Ratio Glucose (70-110) mg/dL POC Glucose (mg/dL) 121 H 150 H (70-110) mg/dL Total Bilirubin (0.30-1.20) mg/dL Alkaline Phosphatase (41-126) U/L C-Reactive Protein (0.00-0.80) mg/dL Albumin (3.8-4.9) g/dL Albumin/Globulin Ratio (1.60-3.17) g/dL Microbiology - Last 24 Hours (Table) 03/01/22 14:40 Blood Culture - Final Blood No Growth after 144 hours 03/01/22 14:25 Blood Culture - Final Blood No Growth after 144 hours Assessment and Plan Assessment: Shortness of breath with abnormal CT of the chest and chest x-ray showing bilateral opacities and pleural effusions, status post right sided thoracentesis, and the pleural effusion seems to be suspicious for chylothorax. However triglyceride level is pending. Lab was contacted today and results are pending. Otherwise, most likely transudate with a total protein of 2.4 and an LDH of 83. Nonspecific mediastinal and axillary adenopathy, will need to be further evaluated, underlying malignancy to be considered. If the fluid is truly chylothorax, this may imply that we may be dealing with lymphoma and the workup should proceed that way to rule out lymphoma. However considering the fluid was present a few months ago very similar presentation and resolved with diuretics, restarted the patient back on diuretics low dose. Right foot cellulitis and skin ulcers/diabetic foot ulcers positive for enterococcus faecalis, patient is on Unasyn on outpatient basis via PICC line. Insulin-dependent diabetes. History of seizure disorder. Possible osteomyelitis right foot. Currently on Unasyn. PICC line being placed to continue treatment outpatient. Plan: Plan dated 03/08/2022. The patient is stable. From our perspective, the patient could be transferred to the retirement. The patient remains on 2 L. He is not manifesting any signs or symptoms of respiratory difficulty or distress. Labs, x-rays, and medications are reviewed. He continues on IV antibiotics. Prognosis is guarded. Time with Patient: Less than 30
--- NOTE | 2022-03-08 13:22 | P.PN ---
Subjective Progress Note Date: 03/07/22 Patient is a 61-year-old male with a known history of chronic diabetic foot ulcer with cultures growing Enterococcus faecalis and is currently on Unasyn at [facility], hypertension, hyperlipidemia, diabetes type 2, osteoarthritis, seizure disorder, bilateral peripheral neuropathy, depression and other medical problems was sent to ER with complaints of shortness of breath which is worsening for the past 1 week along with cough which is mainly nonproductive. No fever or chills. No complains of chest pain. No nausea vomiting abdominal pain or diarrhea. Chest x-ray on admission showed correlate for interval development of CHF with patchy pulmonary edema. Moderate right greater than left pleural effusion. Laboratory data cerebrospinal 0.3 hemoglobin 9.6 and platelets 505 Sodium 134, potassium 4.5 chloride 104 bicarb is 27 BUN 18 and creatinine 0.6 and blood sugar is 312 admission. Albumin 3.3 proBNP 476 D-dimer is 1.15 patient underwent thoracentesis by pulmonary in the ER. Patient is being covered on broad-spectrum antibiotics. 03/02/22 Patient is currently lying in bed. Awake alert and oriented. Breathing status is better today. Status post thoracentesis yesterday. Possible chylothorax is being considered. triglyceride level is pending. Patient is being continued on Lasix IV. Chest x-ray showed possible additional P infiltrates medial right base and left upper lobe. Patient is on antibiotics, Zosyn changed to Unasyn as per ID recommendations. Pulmonary is on board. Laboratory data showed WBC 7.8 hemoglobin 8.2 and platelets 481 Sodium 137 potassium 4.4 BUN 21 and creatinine 0.97 and pressure was 58. 03/03/22 Patient is seen resting in the bed. Awake alert and oriented 3. No complaints of chest pain or worsening shortness of breath. Currently titrated down to room air. Afebrile. No nausea vomiting abdominal pain or diarrhea. Repeat chest x-ray today showed persistent right 8 passes which have increased from prior. Wade peak distal tip in appropriate position. Small left pleural effusion. Patient remains on antibiotics the form Unasyn. Also being continued on Lasix. 2-D echocardiogram for normal ejection fraction. No significant wall motion abnormalities noted. laboratory data reviewed. 03/04/22 Patient is currently in the [facility] unit. Lying in bed. Awake alert and oriented 3. No complaints of fever or chills. Right foot pain is better and is being continued on being continued on Unasyn. Blood Cultures have been neg ative. Also on Lasix. Repeat chest x-ray today and tomorrow. He was hypoglycemic. Insulin dose was reduced. Was taking 50 units daily changed to 35 units along with sliding scale. WBC 8.5 hemoglobin 9.1 and platelets 567, bicarb is 31 BUN 22 and creatinine 0.9 and blood sugar is 33 this morning. 03/05/2022 Patient is currently lying in the bed. Awake alert and oriented x3. On oxygen at 2 L via nasal cannula. Denies any complaints of chest pain or worsening shortness of breath. Continued on IV antibiotics, Unasyn. IV Lasix changed to 40 mg p.o. daily. Patient's blood sugar was down to 50 today afternoon. Lantus dose decreased to 35 units and preprandial insulin was added. Patient is scheduled for PICC line placement today. 03/06/2022 Patient is resting in the bed. Awake alert and oriented x3. No complaints of chest pain or shortness of breath. No nausea vomiting or abdominal pain or diarrhea. No cough or sputum production. Patient is currently 2 L oxygen via nasal cannula. Status post PICC line placement. Continue Zosyn currently. Also on Lasix 40 mg daily. Denied any complaints of fever or chills. Right foot dressing change was done. ID and pulmonary is on board. Laboratory data showed WBC 8.3 hemoglobin 8.7 and platelets 536 Blood sugar is better controlled now. 03/07/2022 Patient is resting in bed. Awake alert and oriented x3. No complaints of chest pain. Patient states that his breathing status is worse today. Repeat chest x- ray was ordered. IV fluids will be on hold and patient is tolerating oral diet. No complaints of nausea or vomiting or abdominal pain. Patient is on antibiotics in the form of Unasyn. ID is on board and continued on wound care for right lower extremity diabetic foot ulcer. Laboratory data showed WBC 9.0, hemoglobin 7.8 and platelets 483 Sodium 134 potassium 4.2 chloride 99 bicarb is 26.9 BUN 24.1 creatinine 1.2. Blood sugar is 234. Calcium 8.6. ID and pulmonary is on board. Current medications reviewed. Objective - Vital Signs Vital signs: Vital Signs Temp 98.3 F 03/07/22 20:00 Pulse 84 03/07/22 20:00 Resp 16 03/07/22 20:00 BP 137/75 03/07/22 20:00 Pulse Ox 95 03/07/22 20:00 FiO2 Intake & Output 03/07/22 03/07/22 03/08/22 06:59 18:59 06:59 Intake Total 1050 Balance 1050 Weight 52 kg Intake: Intake, IV Titration 400 Amount Ampicillin-Sulbactam 3 gm 200 In Sodium Chloride 0.9% 100 ml @ 200 mls/hr IVPB Q6HR ERIN Rx#:[id number] Sodium Chloride 0.9% 1, 200 000 ml @ 20 mls/hr IV . Q24H ERIN Rx#:[id number] Oral 650 Other: Voiding Method Urinal # Voids 2 1 # Bowel Movements 2 1 - Exam PHYSICAL EXAMINATION: Patient is lying in the bed comfortably, no acute distress, awake alert but lethargic and weak. HEENT: Normocephalic. Neck is supple. Pupils reactive. Nostrils clear. Oral cavity is moist. Neck reveals no JVD, carotid bruits, or thyromegaly. CHEST EXAMINATION: Trachea is central. Symmetrical expansion. Right basilar crackles. No wheezing... CARDIAC: Normal S1, S2 with no gallops. No murmurs ABDOMEN: Soft. Bowel sounds normal. No organomegaly. No abdominal bruits. Extremities: reveal no edema. No clubbing or cyanosis Neurologically awake, alert, oriented 3 with well-coordinated movements. No focal deficits noted Skin: No rash. Patient does have right foot ulcer which is wrapped. Psychiatric: Coperative. Nonsuicidal Musculoskeletal: No joint swelling or deformity. Normal range of motion. - Labs CBC & Chem 7: 03/08/22 06:18 03/08/22 06:18 Labs: Abnormal Lab Results - Last 24 Hours (Table) 03/01/22 03/07/22 03/07/22 Range/Units 21:05 01:50 03:50 RBC (4.40-5.60) X 10*6/uL Hgb (13.0-17.0) g/dL Hct (39.6-50.0) % MCV (80.0-97.0) fL MCH (27.0-32.0) pg MCHC (32.0-37.0) g/dL RDW (11.5-14.5) % Plt Count (140-440) X 10*3/uL MPV (9.5-12.2) fL Eosinophils # (0.04-0.35) X 10*3/uL Anion Gap (10.00-18.00) mmol/L BUN/Creatinine Ratio (12.00-20.00) Ratio Glucose (70-110) mg/dL POC Glucose (mg/dL) 137 H 119 H (70-110) mg/dL Calcium (8.7-10.3) mg/dL Albumin (PEP) 2.67 L (3.80-4.90) g/dL Grlbn-2-Kwlxwissa 0.43 H (0.10-0.40) g/dL 03/07/22 03/07/22 03/07/22 Range/Units 07:10 07:10 07:28 RBC 3.40 L (4.40-5.60) X 10*6/uL Hgb 7.9 L (13.0-17.0) g/dL Hct 26.0 L (39.6-50.0) % MCV 76.5 L (80.0-97.0) fL MCH 23.2 L (27.0-32.0) pg MCHC 30.4 L (32.0-37.0) g/dL RDW 18.4 H (11.5-14.5) % Plt Count 483 H (140-440) X 10*3/uL MPV 8.5 L (9.5-12.2) fL Eosinophils # 0.36 H (0.04-0.35) X 10*3/uL Anion Gap 9.10 L (10.00-18.00) mmol/L BUN/Creatinine Ratio 20.17 H (12.00-20.00) Ratio Glucose 234 H (70-110) mg/dL POC Glucose (mg/dL) 271 H (70-110) mg/dL Calcium 8.6 L (8.7-10.3) mg/dL Albumin (PEP) (3.80-4.90) g/dL Pcyay-4-Lhyaiyane (0.10-0.40) g/dL 03/07/22 03/07/22 Range/Units 11:10 21:06 RBC (4.40-5.60) X 10*6/uL Hgb (13.0-17.0) g/dL Hct (39.6-50.0) % MCV (80.0-97.0) fL MCH (27.0-32.0) pg MCHC (32.0-37.0) g/dL RDW (11.5-14.5) % Plt Count (140-440) X 10*3/uL MPV (9.5-12.2) fL Eosinophils # (0.04-0.35) X 10*3/uL Anion Gap (10.00-18.00) mmol/L BUN/Creatinine Ratio (12.00-20.00) Ratio Glucose (70-110) mg/dL POC Glucose (mg/dL) 112 H 122 H (70-110) mg/dL Calcium (8.7-10.3) mg/dL Albumin (PEP) (3.80-4.90) g/dL Pouus-4-Rrmpwznzm (0.10-0.40) g/dL Microbiology - Last 24 Hours (Table) 03/01/22 14:40 Blood Culture - Final Blood No Growth after 144 hours 03/01/22 14:25 Blood Culture - Final Blood No Growth after 144 hours Assessment and Plan Assessment: Worsening shortness of breath due to bilateral pleural effusions right greater than left. Suspicious for chylothorax. Status post right thoracentesis. Pleural fluid is transudative. Awaiting triglyceride level. Mediastinal and axillary lymphadenopathy. Possible underlying malignancy cannot be excluded. Right diabetic foot ulcer with recent wound cultures growing Enterococcus faecalis was maintained on Unasyn with PICC line. Hyperglycemia with uncontrolled diabetes type 2. Insulin-dependent. Patient had hypoglycemic episodes. Seizure disorder Hyperlipidemia Diabetic peripheral neuropathy Depression Iron deficiency anemia. DVT prophylaxis with heparin subcu Plan: Repeat chest x-ray was ordered due to worsening shortness of breath today. Patient will be continued on oxygen supplementation. Status post right thoracentesis. was on IV Lasix 20 mg twice daily. Changed to 40mg daily by mouth. Continued with broad-spectrum antibiotics in the form of Zosyn and follow-up wound cultures and blood cultures. Antibiotic changed to Unasyn. Continue the wound care. Patient was started back on insulin regimen and sliding scale. Titrate insulin dose as needed. Pulmonary and ID is on board. Follow up closely. Time with Patient: Greater than 30
--- NOTE | 2022-03-08 13:36 | P.PN ---
Subjective Progress Note Date: 03/08/22 Principal diagnosis: Right foot osteomyelitis and question of pneumonia Patient is a 61-year-old male with multiple comorbidities including diabetes mellitus the patient did have right diabetic foot infection with a nonhealing wound on the plantar aspect of the right foot and underlying osteomyelitis in this patient who is status post debridement of the wound local culture positive for Enterococcus faecalis patient did get a PICC line and was advised six-week course of IV Unasyn with the patient was currently receiving at the local snf patient apparently has been sent to the ER for evaluation of increasing shortness of breath, patient noticed to have a right-sided effusion status post thoracocentesis and there is concern for possible chylothorax throat is mostly transudate and the patient did have normal pro- calcitonin. On today's evaluation her that is 03/08/2022, the patient continues to be afebrile, the patient is breathing comfortably on 2 L nasal cannula, patient denies chest pain, the patient did have a cough with occasional sputum no hemo ptysis no nausea no vomiting no abdominal pain or pain to the right foot Objective - Vital Signs Vital signs: Vital Signs Temp 98.4 F 03/08/22 12:34 Pulse 86 03/08/22 12:34 Resp 16 03/08/22 12:34 BP 148/76 03/08/22 12:34 Pulse Ox 96 03/08/22 12:34 FiO2 Intake & Output 03/07/22 03/08/22 03/08/22 18:59 06:59 18:59 Intake Total 1040 Output Total 650 Balance 1040 -650 Weight 52.5 kg Intake: Intake, IV Titration 440 Amount Ampicillin-Sulbactam 3 gm 200 In Sodium Chloride 0.9% 100 ml @ 200 mls/hr IVPB Q6HR ERIN Rx#:[id number] Sodium Chloride 0.9% 1, 240 000 ml @ 20 mls/hr IV . Q24H ERIN Rx#:[id number] Oral 600 Output: Urine 650 Other: Voiding Method Bedside Commode Urinal # Voids 1 3 1 # Bowel Movements 1 1 - Exam GENERAL DESCRIPTION: Middle-aged male lying in bed in no distress RESPIRATORY SYSTEM: Unlabored breathing , decreased breath sounds at bases HEART: S1 S2 regular rate and rhythm , ABDOMEN: Soft , no tenderness EXTREMITIES: Right foot wound is currently dressed no drainage on the dressing - Labs CBC & Chem 7: 03/08/22 06:18 03/08/22 06:18 Labs: Abnormal Lab Results - Last 24 Hours (Table) 03/07/22 03/08/22 03/08/22 Range/Units 21:06 06:18 06:18 RBC 3.44 L (4.40-5.60) X 10*6/uL Hgb 8.3 L (13.0-17.0) g/dL Hct 27.3 L (39.6-50.0) % MCV 79.4 L (80.0-97.0) fL MCH 24.1 L (27.0-32.0) pg MCHC 30.4 L (32.0-37.0) g/dL RDW 18.0 H (11.5-14.5) % Plt Count 494 H (140-440) X 10*3/uL MPV 8.8 L (9.5-12.2) fL BUN/Creatinine Ratio 24.01 H (12.00-20.00) Ratio Glucose 116 H (70-110) mg/dL POC Glucose (mg/dL) 122 H (70-110) mg/dL Total Bilirubin <0.15 L (0.30-1.20) mg/dL Alkaline Phosphatase 196 H (41-126) U/L C-Reactive Protein 6.90 H (0.00-0.80) mg/dL Albumin 3.2 L (3.8-4.9) g/dL Albumin/Globulin Ratio 1.05 L (1.60-3.17) g/dL 03/08/22 03/08/22 Range/Units 07:22 11:10 RBC (4.40-5.60) X 10*6/uL Hgb (13.0-17.0) g/dL Hct (39.6-50.0) % MCV (80.0-97.0) fL MCH (27.0-32.0) pg MCHC (32.0-37.0) g/dL RDW (11.5-14.5) % Plt Count (140-440) X 10*3/uL MPV (9.5-12.2) fL BUN/Creatinine Ratio (12.00-20.00) Ratio Glucose (70-110) mg/dL POC Glucose (mg/dL) 121 H 150 H (70-110) mg/dL Total Bilirubin (0.30-1.20) mg/dL Alkaline Phosphatase (41-126) U/L C-Reactive Protein (0.00-0.80) mg/dL Albumin (3.8-4.9) g/dL Albumin/Globulin Ratio (1.60-3.17) g/dL Microbiology - Last 24 Hours (Table) 03/01/22 14:40 Blood Culture - Final Blood No Growth after 144 hours 03/01/22 14:25 Blood Culture - Final Blood No Growth after 144 hours Assessment and Plan (1) Pneumonia Current Visit: Yes Status: Acute Code(s): J18.9 - PNEUMONIA, UNSPECIFIED ORGANISM SNOMED Code(s): 575306966 (2) Infected wound Current Visit: No Status: Acute Code(s): T14.8XXA - OTHER INJURY OF UNSPECIFIED BODY REGION, INITIAL ENCOUNTER; L08.9 - LOCAL INFECTION OF THE SKIN AND SUBCUTANEOUS TISSUE, UNSP SNOMED Code(s): 93851261 Plan: 1patient with right diabetic foot infection with underlying ostial myelitis secondary to Enterococcus faecalis for the patient was currently getting Unasyn and local snf patient right foot plantar wound seems to be healing well without evidence of any surrounding redness or any foul-smelling drainage. 2patient no with right-sided effusion possibly related to cardiac etiology currently waiting for the triglyceride to rule out chylothorax with a normal pro-calcitonin 2 with a repeat this morning was 0.09, chest x-ray however did shows slight worsening pulmonary is following the patient closely 3 local wound care to the right foot plantar wound with Aquacel silver dressing changed every 48 hour. 4patient to continue Unasyn for his right diabetic foot ulcer and osteom yelitis and continue supportive care Time with Patient: Less than 30
[2022-03-08 14:23] LABS: Erythrocyte Sedimentation Rate 97 mm/Hr (0-20)
[2022-03-08 15:52] LABS: Glucose,Whole Blood 46 mg/dL (70-110)
[2022-03-08 16:19] LABS: Glucose,Whole Blood 124 mg/dL (70-110)
[2022-03-08 17:14] LABS: Glucose,Whole Blood 68 mg/dL (70-110)
[2022-03-08 20:36] LABS: Glucose,Whole Blood 94 mg/dL (70-110)
[2022-03-08] MEDS: ATORVASTATIN 20 MG TAB PO SCH (20:48)
[2022-03-08] MEDS: LATANOPROST 0.005% OPHTH DROPS 2.5 ML BTL BOTH EYES SCH (20:49)
[2022-03-08] MEDS: SODIUM CHLORIDE 0.9% 1,000 ML IV SCH (20:50)
[2022-03-09 02:04] LABS: Glucose,Whole Blood 146 mg/dL (70-110)
--- NOTE | 2022-03-09 04:58 | P.PN ---
Subjective Progress Note Date: 03/08/22 Patient is a 61-year-old male with a known history of chronic diabetic foot ulcer with cultures growing Enterococcus faecalis and is currently on Unasyn at [facility], hypertension, hyperlipidemia, diabetes type 2, osteoarthritis, seizure disorder, bilateral peripheral neuropathy, depression a nd other medical problems was sent to ER with complaints of shortness of breath which is worsening for the past 1 week along with cough which is mainly nonproductive. No fever or chills. No complains of chest pain. No nausea vomiting abdominal pain or diarrhea. Chest x-ray on admission showed correlate for interval development of CHF with patchy pulmonary edema. Moderate right greater than left pleural effusion. Laboratory data cerebrospinal 0.3 hemoglobin 9.6 and platelets 505 Sodium 134, potassium 4.5 chloride 104 bicarb is 27 BUN 18 and creatinine 0.6 and blood sugar is 312 admission. Albumin 3.3 proBNP 476 D-dimer is 1.15 patient underwent thoracentesis by pulmonary in the ER. Patient is being covered on broad-spectrum antibiotics. 03/02/22 Patient is currently lying in bed. Awake alert and oriented. Breathing status is better today. Status post thoracentesis yesterday. Possible chylothorax is being considered. triglyceride level is pending. Patient is being continued on Lasix IV. Chest x-ray showed possible additional P infiltrates medial right base and left upper lobe. Patient is on antibiotics, Zosyn changed to Unasyn as per ID recommendations. Pulmonary is on board. Laboratory data showed WBC 7.8 hemoglobin 8.2 and platelets 481 Sodium 137 potassium 4.4 BUN 21 and creatinine 0.97 and pressure was 58. 03/03/22 Patient is seen resting in the bed. Awake alert and oriented 3. No complaints of chest pain or worsening shortness of breath. Currently titrated down to room air. Afebrile. No nausea vomiting abdominal pain or diarrhea. Repeat chest x-ray today showed persistent right 8 passes which have increased from prior. Wade peak distal tip in appropriate position. Small left pleural effusion. Patient remains on antibiotics the form Unasyn. Also being continued on Lasix. 2-D echocardiogram for normal ejection fraction. No significant wall motion abnormalities noted. laboratory data reviewed. 03/04/22 Patient is currently in the [facility]. Lying in bed. Awake alert and oriented 3. No complaints of fever or chills. Right foot pain is better and is being continued on being continued on Unasyn. Blood Cultures have been n egative. Also on Lasix. Repeat chest x-ray today and tomorrow. He was hypoglycemic. Insulin dose was reduced. Was taking 50 units daily changed to 35 units along with sliding scale. WBC 8.5 hemoglobin 9.1 and platelets 567, bicarb is 31 BUN 22 and creatinine 0.9 and blood sugar is 33 this morning. 03/05/2022 Patient is currently lying in the bed. Awake alert and oriented x3. On oxygen at 2 L via nasal cannula. Denies any complaints of chest pain or worsening shortness of breath. Continued on IV antibiotics, Unasyn. IV Lasix changed to 40 mg p.o. daily. Patient's blood sugar was down to 50 today afternoon. Lantus dose decreased to 35 units and preprandial insulin was added. Patient is scheduled for PICC line placement today. 03/06/2022 Patient is resting in the bed. Awake alert and oriented x3. No complaints of chest pain or shortness of breath. No nausea vomiting or abdominal pain or diarrhea. No cough or sputum production. Patient is currently 2 L oxygen via nasal cannula. Status post PICC line placement. Continue Zosyn currently. Also on Lasix 40 mg daily. Denied any complaints of fever or chills. Right foot dressing change was done. ID and pulmonary is on board. Laboratory data showed WBC 8.3 hemoglobin 8.7 and platelets 536 Blood sugar is better controlled now. 03/07/2022 Patient is resting in bed. Awake alert and oriented x3. No complaints of chest pain. Patient states that his breathing status is worse today. Repeat chest x- ray was ordered. IV fluids will be on hold and patient is tolerating oral diet. No complaints of nausea or vomiting or abdominal pain. Patient is on antibiotics in the form of Unasyn. ID is on board and continued on wound care for right lower extremity diabetic foot ulcer. Laboratory data showed WBC 9.0, hemoglobin 7.8 and platelets 483 Sodium 134 potassium 4.2 chloride 99 bicarb is 26.9 BUN 24.1 creatinine 1.2. B lood sugar is 234. Calcium 8.6. ID and pulmonary is on board. 03/08/2022 Patient is seen and evaluated and follow-up being followed by infectious disease and pulmonary. Patient has been cleared for transfer to [facility] all awaiting insurance authorization. Patient continues on 4 L via nasal cannula recommend wean FiO2 as tolerated. Infectious disease following the patient is maintained on IV antibiotics and continued wound care of the right lower extremity. Patient is currently afebrile denies chest pain or worsening shortness of breath. Patient reporting generalized weakness and recommend PT/OT therapy daily. Encouraged oral intake. Review of systems: Constitutional: No reports of fatigue, fever, or chills Cardiovascular: No reports of chest pain or palpitations Respiratory: No reports of shortness of breath or cough GI: No reports of nausea, vomiting, or diarrhea : No reports of dysuria or retention Neurovascular: reports of generalized weakness All medications have been reviewed PHYSICAL EXAMINATION: Patient is sitting up in the bed comfortably, no acute distress, awake alert, thin built, cachectic, elderly-appearing male HEENT: Normocephalic. Neck is supple. Pupils reactive. Nostrils clear. Oral cavity is moist. Neck reveals no JVD, carotid bruits, or thyromegaly. CHEST EXAMINATION: Trachea is central. Symmetrical expansion. Right basilar crackles. No wheezing... CARDIAC: Normal S1, S2 with no gallops. No murmurs ABDOMEN: Soft. Bowel sounds normal. No organomegaly. No abdominal bruits. Extremities: reveal no edema. No clubbing or cyanosis Neurologically awake, alert, oriented 3 with well-coordinated movements. No focal deficits noted, diffusely weak Skin: No rash. Patient does have right foot ulcer which is wrapped. Psychiatric: Cooperative. Non-suicidal Musculoskeletal: No joint swelling or deformity. Normal range of motion. Assessment: Worsening shortness of breath due to bilateral pleural effusions right greater than left. Suspicious for chylothorax. Status post right thoracentesis. Pleural fluid is transudative. Elevated triglyceride level. Mediastinal and axillary lymphadenopathy. Possible underlying malignancy cannot be excluded. Right diabetic foot ulcer with recent wound cultures growing Enterococcus faecalis was maintained on Unasyn with PICC line. Hyperglycemia with uncontrolled diabetes type 2. Insulin-dependent. Patient had hypoglycemic episodes. Seizure disorder Hyperlipidemia Diabetic peripheral neuropathy Depression Iron deficiency anemia. DVT prophylaxis with heparin subcu Plan: Patient will be continued on oxygen supplementation. Status post right thoracentesis. Continued on Lasix 40mg daily by mouth. Wean FiO2 as tolerated, currently on 4 L via nasal Continued with broad-spectrum antibiotics in the form of Unasyn blood cultures remain negative. Infectious disease following patient does have a PICC line Continue the wound care. Patient was started back on insulin regimen and sliding scale. Titrate insulin dose as needed. Case management following working in [facility] and will require insurance authorization which is currently pending. Recommend PT/OT therapy daily Due to multiple complex medical issues, prognosis is guarded The impression and plan of care has been dictated by Kourtney Orr, Nurse Practitioner as directed. Dr. Milvia MD I have performed a history and examination and MDM of this patient, discussed the same with the dictator, and agree with the dictator's assessment and plan as written ,documented as a scribe. Based on total visit time, I have performed more than 50% of the visit. Objective - Vital Signs Vital signs: Vital Signs Temp 98.4 F 03/08/22 07:20 Pulse 88 03/08/22 07:34 Resp 16 03/08/22 07:20 BP 157/81 03/08/22 07:20 Pulse Ox 93 L 03/08/22 07:20 FiO2 Intake & Output 03/07/22 03/08/22 03/08/22 18:59 06:59 18:59 Intake Total 1040 Output Total 350 Balance 1040 -350 Weight 52.5 kg Intake: Intake, IV Titration 440 Amount Ampicillin-Sulbactam 3 gm 200 In Sodium Chloride 0.9% 100 ml @ 200 mls/hr IVPB Q6HR ERIN Rx#:[id number] Sodium Chloride 0.9% 1, 240 000 ml @ 20 mls/hr IV . Q24H ERIN Rx#:[id number] Oral 600 Output: Urine 350 Other: Voiding Method Bedside Commode Urinal # Voids 1 3 1 # Bowel Movements 1 1 - Labs CBC & Chem 7: 03/08/22 06:18 03/08/22 06:18 Labs: Abnormal Lab Results - Last 24 Hours (Table) 03/07/22 03/07/22 03/07/22 Range/Units 07:10 07:10 11:10 RBC 3.40 L (4.40-5.60) X 10*6/uL Hgb 7.9 L (13.0-17.0) g/dL Hct 26.0 L (39.6-50.0) % MCV 76.5 L (80.0-97.0) fL MCH 23.2 L (27.0-32.0) pg MCHC 30.4 L (32.0-37.0) g/dL RDW 18.4 H (11.5-14.5) % Plt Count 483 H (140-440) X 10*3/uL MPV 8.5 L (9.5-12.2) fL Eosinophils # 0.36 H (0.04-0.35) X 10*3/uL Anion Gap 9.10 L (10.00-18.00) mmol/L BUN/Creatinine Ratio 20.17 H (12.00-20.00) Ratio Glucose 234 H (70-110) mg/dL POC Glucose (mg/dL) 112 H (70-110) mg/dL Calcium 8.6 L (8.7-10.3) mg/dL 03/07/22 03/08/22 03/08/22 Range/Units 21:06 06:18 07:22 RBC 3.44 L (4.40-5.60) X 10*6/uL Hgb 8.3 L (13.0-17.0) g/dL Hct 27.3 L (39.6-50.0) % MCV 79.4 L (80.0-97.0) fL MCH 24.1 L (27.0-32.0) pg MCHC 30.4 L (32.0-37.0) g/dL RDW 18.0 H (11.5-14.5) % Plt Count 494 H (140-440) X 10*3/uL MPV 8.8 L (9.5-12.2) fL Eosinophils # (0.04-0.35) X 10*3/uL Anion Gap (10.00-18.00) mmol/L BUN/Creatinine Ratio (12.00-20.00) Ratio Glucose (70-110) mg/dL POC Glucose (mg/dL) 122 H 121 H (70-110) mg/dL Calcium (8.7-10.3) mg/dL Microbiology - Last 24 Hours (Table) 03/01/22 14:40 Blood Culture - Final Blood No Growth after 144 hours 03/01/22 14:25 Blood Culture - Final Blood No Growth after 144 hours
[2022-03-09] MEDS: PANTOPRAZOLE 40 MG TABLET PO SCH ×2 (05:32→20:41)
[2022-03-09] MEDS: AMPICILLIN-SULBACTAM 3 GM in SODIUM CHLORIDE 0.9% 100 ML IVPB SCH ×4 (05:32→23:11)
[2022-03-09 07:18] LABS: Glucose,Whole Blood 198 mg/dL (70-110)
[2022-03-09] MEDS: IPRATROPIUM-ALBUTEROL 3 ML NEB INHALATION SCH ×4 (07:19→19:03)
[2022-03-09] MEDS: INSULIN ASPART (NovoLOG) 100 UNIT/ML VIAL SQ SCH ×4 (09:15→20:39)
[2022-03-09] MEDS: INSULIN DETEMIR (LEVEMIR) 100 UNIT/ML SYR SQ SCH (09:15)
[2022-03-09] MEDS: ASPIRIN 325 MG TAB PO SCH (09:16)
[2022-03-09] MEDS: PHENYTOIN SODIUM EXTENDED 100 MG CAP PO SCH ×2 (09:16→22:47)
[2022-03-09] MEDS: PIOGLITAZONE 15 MG TAB PO SCH (09:17)
[2022-03-09] MEDS: METOPROLOL TARTRATE 25 MG TAB PO SCH ×3 (09:17→20:41)
[2022-03-09] MEDS: NITROGLYCERIN OINT 1 INCH/GM PACKET TOPICAL SCH ×4 (09:17→20:41)
[2022-03-09] MEDS: HEPARIN SODIUM,PORCINE/PF 5,000 UNIT/0.5 ML SYRINGE SQ SCH ×2 (09:17→20:41)
[2022-03-09] MEDS: FUROSEMIDE 40 MG TAB PO SCH (09:17)
--- NOTE | 2022-03-09 11:02 | P.PN ---
Subjective Progress Note Date: 03/09/22 Principal diagnosis: Cough/shortness of breath. The patient is seen today 03/05/2022 in follow-up on selective care unit. Sitting up in bed. Awake and alert in no acute distress. His main complaint today is that of cough that kept him up most of the night. He remains on DuoNeb inhalations. Continued on oral diuretics. Maintaining good O2 saturations in the mid 90s on 2 L/m per nasal cannula. Afebrile. Blood cultures revealed no growth. Blood sugar 222. ID is service is following regarding the diabetic wound and foot ulcer. Plan is for PICC line placement today. Continued on Unasyn. Follow up chest x-ray reveals small bilateral effusions. Improved aeration of the lungs with persistent multifocal airspace opacities The patient is seen today 03/06/2022 in follow-up on the selective care unit. He is resting comfortably in bed. Awake and alert in no acute distress. Last cough and congestion. Maintaining O2 saturations in the 90s on 2 L/m per nasal cannula. Normal saline at 75 ML's per hour. Lead cultures revealed no growth. White count 8.3. Hemoglobin 8.7. Sodium 135. Potassium 4.3. BUN 22. Creatinine 1.08. Glucose 162. He remains on DuoNeb inhalations. Unasyn for cellulitis. Heparin for DVT prophylaxis. Oral diuretics. Continued on Tessalon Perles I'm reevaluating this patient today on 03/07/2022 on a general medical floor. He is resting comfortably in bed, on 2 L nasal cannula. He denies any shortness of breath, cough, chest pain, fever. Patient is telling me that he is ready for discharge back to [facility]. He has no IV fluids infusing. Patient's vital signs remain stable. Patient's chest x-ray from today showed slightly interval worsening of the multifocal airspace bases. Patient remains afebrile. CBC from today is stable with a WBC count 9, hemoglobin 7.9, hematocrit 26, platelets 493,000. BMP from today also stable with a sodium 135, potassium 4.2, chloride 99, serum CO2 2724.2, creatinine 1.2, glucose 234. Patient's pain maintained on DuoNeb inhalation, Tessalon Perles persistent nonproductive cough, daily Lasix, and empiric Unasyn. Patient has been receiving heparin for DVT prophylaxis. Progress note dated 03/08/2022. 61-year-old male, seen today in room 521. The patient remains on saline at 20 mL an hour, and 2 L of oxygen. Nurse mentioned that he may be discharged to a local residential later today. Clinically, the patient is stable. He denies any worsening symptoms of shortness of breath, cough, wheezing, or phlegm production. He also denies any chest pain or pressure. White count 7.9, hemoglobin 8.3, hematocrit 27.3, and platelet count 494,000. Electrolytes look normal to me, including sodium, potassium, chloride, CO2, BUN, and creatinine. The patient C-reactive protein was 6.90. Pro-calcitonin level is normal at 0.09. Previous x-rays are reviewed. Progress note dated 03/09/2022. 61-year-old male seen again in room 521. He remains on oxygen at 2 L. Saturations are 96%. He is getting saline IV, at 20 mL an hour. He has no complaints today. Lab work today includes only a sugar of 198. Blood cultures are negative. Apparently, the patient is being placed in a local residential, but that has not occurred. Pro-calcitonin level when last checked was 0.09. Objective - Vital Signs Vital signs: Vital Signs Temp 98.3 F 03/09/22 07:18 Pulse 86 03/09/22 07:41 Resp 16 03/09/22 07:18 BP 146/81 03/09/22 07:18 Pulse Ox 96 03/09/22 07:23 FiO2 Intake & Output 03/08/22 03/09/22 03/09/22 18:59 06:59 18:59 Intake Total 180 Output Total 650 Balance -650 180 Weight 52.4 kg Intake: Oral 180 Output: Urine 650 Other: Voiding Method Bedside Commode Urinal # Voids 1 1 # Bowel Movements 1 - Exam No acute distress, oriented 3. No respiratory distress. Currently on 2 L of oxygen. HEENT examination is grossly unremarkable. Neck supple. Full range of motion. No adenopathy thyromegaly or neck vein distention. Cardiovascular examination reveals regular rhythm rate. S1-S2 normal. No S3 or S4. No discernible murmur noted. Heart rate 82 bpm. Lungs reveal scattered bilateral rhonchi. No wheezes or crackles. Breath sounds equal bilaterally. Saturations are 96% on 2 L. Abdomen soft bowel sounds are heard. No masses or tenderness. Extremities are intact. No cyanosis clubbing or edema. Skin is without rash or lesion. Neurologic examination is brief but nonfocal. - Labs CBC & Chem 7: 03/08/22 06:18 03/08/22 06:18 Labs: Abnormal Lab Results - Last 24 Hours (Table) 03/08/22 03/08/22 03/08/22 Range/Units 06:18 11:10 15:49 ESR 97 H (0-20) mm/Hr POC Glucose (mg/dL) 150 H 46 L (70-110) mg/dL 03/08/22 03/08/22 03/09/22 Range/Units 16:15 17:12 02:01 ESR (0-20) mm/Hr POC Glucose (mg/dL) 124 H 68 L 146 H (70-110) mg/dL 03/09/22 Range/Units 07:16 ESR (0-20) mm/Hr POC Glucose (mg/dL) 198 H (70-110) mg/dL Assessment and Plan Assessment: Shortness of breath with abnormal CT of the chest and chest x-ray showing bila teral opacities and pleural effusions, status post right sided thoracentesis, and the pleural effusion seems to be suspicious for chylothorax. However triglyceride level is pending. Lab was contacted today and results are pending. Otherwise, most likely transudate with a total protein of 2.4 and an LDH of 83. Nonspecific mediastinal and axillary adenopathy, will need to be further evaluated, underlying malignancy to be considered. If the fluid is truly chylothorax, this may imply that we may be dealing with lymphoma and the workup should proceed that way to rule out lymphoma. However considering the fluid was present a few months ago very similar presentation and resolved with diuretics, restarted the patient back on diuretics low dose. Right foot cellulitis and skin ulcers/diabetic foot ulcers positive for enterococcus faecalis, patient is on Unasyn on outpatient basis via PICC line. Insulin-dependent diabetes. History of seizure disorder. Possible osteomyelitis right foot. Currently on Unasyn. PICC line being placed to continue treatment outpatient. Plan: Plan dated 03/08/2022. The patient is stable. From our perspective, the patient could be transferred to the residential. The patient remains on 2 L. He is not manifesting any signs or symptoms of respiratory difficulty or distress. Labs, x-rays, and medications are reviewed. He continues on IV antibiotics. Prognosis is guarded. Plan dated 03/09/2022. The patient is ready for transfer to the residential, from the pulmonary standpoint. The patient's respiratory status is stable. He denies any shortness of breath, wheezing, cough, phlegm production, chest tightness, or hemoptysis. He remains on 2 L of oxygen. He is getting saline at 20 mL an hour. Labs, x-rays, and medications are reviewed. Prognosis is certainly guarded. Time with Patient: Less than 30
[2022-03-09 11:13] LABS: Glucose,Whole Blood 215 mg/dL (70-110)
[2022-03-09] MEDS: FERROUS SULFATE 325 MG TAB PO SCH (12:10)
--- NOTE | 2022-03-09 13:13 | P.PN ---
Subjective Progress Note Date: 03/09/22 Principal diagnosis: Right foot osteomyelitis and question of pneumonia Patient is a 61-year-old male with multiple comorbidities including diabetes mellitus the patient did have right diabetic foot infection with a nonhealing wound on the plantar aspect of the right foot and underlying osteomyelitis in this patient who is status post debridement of the wound local culture positive for Enterococcus faecalis patient did get a PICC line and was advised six-week course of IV Unasyn with the patient was currently receiving at the local [place] [facility] patient apparently has been sent to the ER for evaluation of increasing shortness of breath, patient noticed to have a right-sided effusion status post thoracocentesis and there is concern for possible chylothorax throat is mostly transudate and the patient did have normal pro- calcitonin. On today's evaluation her that is 03/09/2022, the patient remains to be afebrile, the patient is breathing comfortably on 2 L nasal cannula, patient denies chest pain, the patient denies any worsening cough or sputum production n o nausea no vomiting and pain to the right foot is controlled Objective - Vital Signs Vital signs: Vital Signs Temp 98.3 F 03/09/22 07:18 Pulse 81 03/09/22 11:18 Resp 16 03/09/22 07:18 BP 146/81 03/09/22 07:18 Pulse Ox 96 03/09/22 07:23 FiO2 Intake & Output 03/08/22 03/09/22 03/09/22 18:59 06:59 18:59 Intake Total 180 Output Total 650 Balance -650 180 Weight 52.4 kg Intake: Oral 180 Output: Urine 650 Other: Voiding Method Bedside Commode Urinal # Voids 1 1 # Bowel Movements 1 - Exam GENERAL DESCRIPTION: Middle-aged male lying in bed in no distress RESPIRATORY SYSTEM: Unlabored breathing , decreased breath sounds at bases HEART: S1 S2 regular rate and rhythm , ABDOMEN: Soft , no tenderness EXTREMITIES: Right foot plantar wound did have some purulent drainage at the time of dressing changes however no surrounding redness - Labs CBC & Chem 7: 03/08/22 06:18 03/08/22 06:18 Labs: Abnormal Lab Results - Last 24 Hours (Table) 03/08/22 03/08/22 03/08/22 Range/Units 06:18 15:49 16:15 ESR 97 H (0-20) mm/Hr POC Glucose (mg/dL) 46 L 124 H (70-110) mg/dL 03/08/22 03/09/22 03/09/22 Range/Units 17:12 02:01 07:16 ESR (0-20) mm/Hr POC Glucose (mg/dL) 68 L 146 H 198 H (70-110) mg/dL 03/09/22 Range/Units 11:11 ESR (0-20) mm/Hr POC Glucose (mg/dL) 215 H (70-110) mg/dL Assessment and Plan (1) Pneumonia Current Visit: Yes Status: Acute Code(s): J18.9 - PNEUMONIA, UNSPECIFIED ORGANISM SNOMED Code(s): 200525323 (2) Infected wound Current Visit: No Status: Acute Code(s): T14.8XXA - OTHER INJURY OF UNSPECIFIED BODY REGION, INITIAL ENCOUNTER; L08.9 - LOCAL INFECTION OF THE SKIN AND SUBCUTANEOUS TISSUE, UNSP SNOMED Code(s): 45465123 Plan: 1patient with right diabetic foot infection with underlying ostial myelitis secondary to Enterococcus faecalis for the patient was currently getting Unasyn and [place] [facility] patient right foot plantar wound seems to be healing well without evidence of any surrounding redness or any foul-smelling drainage. 2patient no with right-sided effusion possibly related to cardiac etiology currently waiting for the triglyceride to rule out chylothorax with a normal pro-calcitonin 2 with a repeat this morning was 0.09, chest x-ray however did shows slight worsening pulmonary is following the patient closely 3 local wound care to the right foot plantar wound with Aquacel silver dressing changed every 48 hour. 4patient currently waiting for placement he will continue with Unasyn for his right foot osteo-myelitis and monitor clinical course closely Time with Patient: Less than 30
[2022-03-09 17:19] LABS: Glucose,Whole Blood 134 mg/dL (70-110)
[2022-03-09 20:27] LABS: Glucose,Whole Blood 98 mg/dL (70-110)
[2022-03-09] MEDS: ATORVASTATIN 20 MG TAB PO SCH (20:41)
[2022-03-09] MEDS: SODIUM CHLORIDE 0.9% 1,000 ML IV SCH (20:42)
[2022-03-09] MEDS: LATANOPROST 0.005% OPHTH DROPS 2.5 ML BTL BOTH EYES SCH (20:44)
[2022-03-10 01:04] LABS: Glucose,Whole Blood 116 mg/dL (70-110)
--- NOTE | 2022-03-10 02:17 | P.PN ---
Subjective Progress Note Date: 03/09/22 Patient is a 61-year-old male with a known history of chronic diabetic foot ulcer with cultures growing Enterococcus faecalis and is currently on Unasyn at [facility], hypertension, hyperlipidemia, diabetes type 2, osteoarthritis, seizure disorder, bilateral peripheral neuropathy, depression a nd other medical problems was sent to ER with complaints of shortness of breath which is worsening for the past 1 week along with cough which is mainly nonproductive. No fever or chills. No complains of chest pain. No nausea vomiting abdominal pain or diarrhea. Chest x-ray on admission showed correlate for interval development of CHF with patchy pulmonary edema. Moderate right greater than left pleural effusion. Laboratory data cerebrospinal 0.3 hemoglobin 9.6 and platelets 505 Sodium 134, potassium 4.5 chloride 104 bicarb is 27 BUN 18 and creatinine 0.6 and blood sugar is 312 admission. Albumin 3.3 proBNP 476 D-dimer is 1.15 patient underwent thoracentesis by pulmonary in the ER. Patient is being covered on broad-spectrum antibiotics. 03/02/22 Patient is currently lying in bed. Awake alert and oriented. Breathing status is better today. Status post thoracentesis yesterday. Possible chylothorax is being considered. triglyceride level is pending. Patient is being continued on Lasix IV. Chest x-ray showed possible additional P infiltrates medial right base and left upper lobe. Patient is on antibiotics, Zosyn changed to Unasyn as per ID recommendations. Pulmonary is on board. Laboratory data showed WBC 7.8 hemoglobin 8.2 and platelets 481 Sodium 137 potassium 4.4 BUN 21 and creatinine 0.97 and pressure was 58. 03/03/22 Patient is seen resting in the bed. Awake alert and oriented 3. No complaints of chest pain or worsening shortness of breath. Currently titrated down to room air. Afebrile. No nausea vomiting abdominal pain or diarrhea. Repeat chest x-ray today showed persistent right 8 passes which have increased from prior. Wade peak distal tip in appropriate position. Small left pleural effusion. Patient remains on antibiotics the form Unasyn. Also being continued on Lasix. 2-D echocardiogram for normal ejection fraction. No significant wall motion abnormalities noted. laboratory data reviewed. 03/04/22 Patient is currently in [facility]. Lying in bed. Awake alert and oriented 3. No complaints of fever or chills. Right foot pain is better and is being continued on being continued on Unasyn. Blood Cultures have been n egative. Also on Lasix. Repeat chest x-ray today and tomorrow. He was hypoglycemic. Insulin dose was reduced. Was taking 50 units daily changed to 35 units along with sliding scale. WBC 8.5 hemoglobin 9.1 and platelets 567, bicarb is 31 BUN 22 and creatinine 0.9 and blood sugar is 33 this morning. 03/05/2022 Patient is currently lying in the bed. Awake alert and oriented x3. On oxygen at 2 L via nasal cannula. Denies any complaints of chest pain or worsening shortness of breath. Continued on IV antibiotics, Unasyn. IV Lasix changed to 40 mg p.o. daily. Patient's blood sugar was down to 50 today afternoon. Lantus dose decreased to 35 units and preprandial insulin was added. Patient is scheduled for PICC line placement today. 03/06/2022 Patient is resting in the bed. Awake alert and oriented x3. No complaints of chest pain or shortness of breath. No nausea vomiting or abdominal pain or diarrhea. No cough or sputum production. Patient is currently 2 L oxygen via nasal cannula. Status post PICC line placement. Continue Zosyn currently. Also on Lasix 40 mg daily. Denied any complaints of fever or chills. Right foot dressing change was done. ID and pulmonary is on board. Laboratory data showed WBC 8.3 hemoglobin 8.7 and platelets 536 Blood sugar is better controlled now. 03/07/2022 Patient is resting in bed. Awake alert and oriented x3. No complaints of chest pain. Patient states that his breathing status is worse today. Repeat chest x- ray was ordered. IV fluids will be on hold and patient is tolerating oral diet. No complaints of nausea or vomiting or abdominal pain. Patient is on antibiotics in the form of Unasyn. ID is on board and continued on wound care for right lower extremity diabetic foot ulcer. Laboratory data showed WBC 9.0, hemoglobin 7.8 and platelets 483 Sodium 134 potassium 4.2 chloride 99 bicarb is 26.9 BUN 24.1 creatinine 1.2. B lood sugar is 234. Calcium 8.6. ID and pulmonary is on board. 03/08/2022 Patient is seen and evaluated and follow-up being followed by infectious disease and pulmonary. Patient has been cleared for transfer to ECF all awaiting insurance authorization. Patient continues on 4 L via nasal cannula recommend wean FiO2 as tolerated. Infectious disease following the patient is maintained on IV antibiotics and continued wound care of the right lower extremity. Patient is currently afebrile denies chest pain or worsening shortness of breath. Patient reporting generalized weakness and recommend PT/OT therapy daily. Encouraged oral intake. 03/09/2022 Patient is seen in follow-up this morning with no acute overnight issues noted. Patient is on 2 L via nasal cannula maintaining oxygen saturations of 96%. Patient is continued on ampicillin along with DuoNeb treatments and oral Lasix. Adjustments to insulins made as patient was having hypoglycemic events and will continue with sliding scale and 30 units subcu daily of Levemir. Patient with significant weakness and antibiotics via PICC line will likely be going to ECF once insurance authorization is obtained. Patient is currently afebrile denies worsening shortness of breath or chest pain. Tolerating diet and needs encouragement for oral intake. Recommend PT/OT therapy daily Review of systems: Constitutional: No reports of fatigue, fever, or chills Cardiovascular: No reports of chest pain or palpitations Respiratory: No reports of shortness of breath or cough GI: No reports of nausea, vomiting, or diarrhea : No reports of dysuria or retention Neurovascular: reports of generalized weakness All medications have been reviewed PHYSICAL EXAMINATION: Patient is sitting up in the bed comfortably, no acute distress, awake alert, thin built, cachectic, elderly-appearing male HEENT: Normocephalic. Neck is supple. Pupils reactive. Nostrils clear. Oral cavity is moist. Neck reveals no JVD, carotid bruits, or thyromegaly. CHEST EXAMINATION: Trachea is central. Symmetrical expansion. Right basilar crackles. No wheezing... CARDIAC: Normal S1, S2 with no gallops. No murmurs ABDOMEN: Soft. Bowel sounds normal. No organomegaly. No abdominal bruits. Extremities: reveal no edema. No clubbing or cyanosis Neurologically awake, alert, oriented 3 with well-coordinated movements. No focal deficits noted, diffusely weak Skin: No rash. Patient does have right foot ulcer which is wrapped. Psychiatric: Cooperative. Non-suicidal Musculoskeletal: No joint swelling or deformity. Normal range of motion. Assessment: Worsening shortness of breath due to bilateral pleural effusions right greater than left. Suspicious for chylothorax. Status post right thoracentesis. Pleural fluid is transudative. Acute hypoxic respiratory failure secondary to above Elevated triglyceride level. Mediastinal and axillary lymphadenopathy. Possible underlying malignancy cannot be excluded. Right diabetic foot ulcer with recent wound cultures growing Enterococcus faecalis was maintained on Unasyn with PICC line. Hyperglycemia with uncontrolled diabetes type 2. Insulin-dependent. Patient had hypoglycemic episodes. Seizure disorder Hyperlipidemia Diabetic peripheral neuropathy Depression Iron deficiency anemia. DVT prophylaxis with heparin subcu Plan: Patient will be continued on oxygen supplementation. Status post right thoracentesis. Continued on Lasix 40mg daily by mouth. Wean FiO2 as tolerated, currently on 2 L via nasal cannula Continued with broad-spectrum antibiotics in the form of Unasyn blood cultures remain negative. Infectious disease following patient does have a PICC line as patient had been receiving IV antibiotics outpatient at the [facility] for lower extremity wounds. Continue with wound care. Patient was started back on insulin regimen and sliding scale. Titrate insulin dose as needed. Recommend monitor Accu-Cheks closely as patient has been having both hypo-and hyperglycemia. Encouraged oral intake. Case management following working in [facility] and will require insurance authorization which is currently pending. Recommend PT/OT therapy daily Due to multiple complex medical issues, prognosis is guarded Possible discharge in 24-48 hours The impression and plan of care has been dictated by Kourtney Orr, Nurse Practitioner as directed. Dr. Milvia MD I have performed a history and examination and MDM of this patient, discussed the same with the dictator, and agree with the dictator's assessment and plan as written ,documented as a scribe. Based on total visit time, I have performed more than 50% of the visit. Objective - Vital Signs Vital signs: Vital Signs Temp 98.3 F 03/09/22 07:18 Pulse 86 03/09/22 07:41 Resp 16 03/09/22 07:18 BP 146/81 03/09/22 07:18 Pulse Ox 96 03/09/22 07:23 FiO2 Intake & Output 03/08/22 03/09/22 03/09/22 18:59 06:59 18:59 Intake Total 180 Output Total 650 Balance -650 180 Weight 52.4 kg Intake: Oral 180 Output: Urine 650 Other: Voiding Method Bedside Commode Urinal # Voids 1 1 # Bowel Movements 1 - Labs CBC & Chem 7: 03/08/22 06:18 03/08/22 06:18 Labs: Abnormal Lab Results - Last 24 Hours (Table) 03/08/22 03/08/22 03/08/22 Range/Units 06:18 06:18 11:10 ESR 97 H (0-20) mm/Hr BUN/Creatinine Ratio 24.01 H (12.00-20.00) Ratio Glucose 116 H (70-110) mg/dL POC Glucose (mg/dL) 150 H (70-110) mg/dL Total Bilirubin <0.15 L (0.30-1.20) mg/dL Alkaline Phosphatase 196 H (41-126) U/L C-Reactive Protein 6.90 H (0.00-0.80) mg/dL Albumin 3.2 L (3.8-4.9) g/dL Albumin/Globulin Ratio 1.05 L (1.60-3.17) g/dL 03/08/22 03/08/22 03/08/22 Range/Units 15:49 16:15 17:12 ESR (0-20) mm/Hr BUN/Creatinine Ratio (12.00-20.00) Ratio Glucose (70-110) mg/dL POC Glucose (mg/dL) 46 L 124 H 68 L (70-110) mg/dL Total Bilirubin (0.30-1.20) mg/dL Alkaline Phosphatase (41-126) U/L C-Reactive Protein (0.00-0.80) mg/dL Albumin (3.8-4.9) g/dL Albumin/Globulin Ratio (1.60-3.17) g/dL 03/09/22 03/09/22 Range/Units 02:01 07:16 ESR (0-20) mm/Hr BUN/Creatinine Ratio (12.00-20.00) Ratio Glucose (70-110) mg/dL POC Glucose (mg/dL) 146 H 198 H (70-110) mg/dL Total Bilirubin (0.30-1.20) mg/dL Alkaline Phosphatase (41-126) U/L C-Reactive Protein (0.00-0.80) mg/dL Albumin (3.8-4.9) g/dL Albumin/Globulin Ratio (1.60-3.17) g/dL
[2022-03-10] MEDS: AMPICILLIN-SULBACTAM 3 GM in SODIUM CHLORIDE 0.9% 100 ML IVPB SCH ×4 (05:50→23:42)
[2022-03-10] MEDS: PANTOPRAZOLE 40 MG TABLET PO SCH ×2 (05:51→22:28)
[2022-03-10 05:59] LABS: Glucose,Whole Blood 124 mg/dL (70-110)
[2022-03-10] MEDS: IPRATROPIUM-ALBUTEROL 3 ML NEB INHALATION SCH ×4 (07:17→20:36)
[2022-03-10 07:19] LABS: Glucose,Whole Blood 160 mg/dL (70-110)
[2022-03-10] MEDS: FERROUS SULFATE 325 MG TAB PO SCH (08:07)
[2022-03-10] MEDS: INSULIN ASPART (NovoLOG) 100 UNIT/ML VIAL SQ SCH ×4 (08:07→22:28)
[2022-03-10] MEDS: HEPARIN SODIUM,PORCINE/PF 5,000 UNIT/0.5 ML SYRINGE SQ SCH ×2 (08:07→22:28)
[2022-03-10] MEDS: INSULIN DETEMIR (LEVEMIR) 100 UNIT/ML SYR SQ SCH (08:07)
[2022-03-10] MEDS: PHENYTOIN SODIUM EXTENDED 100 MG CAP PO SCH ×2 (08:08→22:29)
[2022-03-10] MEDS: PIOGLITAZONE 15 MG TAB PO SCH (08:08)
[2022-03-10] MEDS: METOPROLOL TARTRATE 25 MG TAB PO SCH ×3 (08:08→22:29)
[2022-03-10] MEDS: ASPIRIN 325 MG TAB PO SCH (08:08)
[2022-03-10] MEDS: NITROGLYCERIN OINT 1 INCH/GM PACKET TOPICAL SCH ×4 (08:08→22:29)
[2022-03-10] MEDS: FUROSEMIDE 40 MG TAB PO SCH (08:08)
[2022-03-10 09:36] LABS: African American GFR (CKD) 84.5 (60.0-200.0); Anion Gap 9.8 mmol/L (10.00-18.00); BUN/Creat Ratio 17.25 Ratio (12.00-20.00); Blood Urea Nitrogen 18.8 mg/dL (9.0-27.0); Calcium 8.9 mg/dL (8.7-10.3); Carbon Dioxide 30.9 mmol/L (20.0-27.5); Non-African American GFR(CKD) 72.9 (60.0-200.0); Potassium 3.9 mmol/L (3.5-5.5)
[2022-03-10 11:23] LABS: Glucose,Whole Blood 126 mg/dL (70-110)
--- NOTE | 2022-03-10 13:29 | P.PN ---
Subjective Progress Note Date: 03/10/22 Principal diagnosis: CHF, pneumonia this is a 61-year-old white male with history of chronic right foot diabetic foot ulcers, history of peripheral vessel occlusive disease,diabetes, patient is at the [facility] receiving IV antibiotics via PICC line for his right foot diabetic ulcer. Patient presented to the ER today with 1 week history of shortness of breath and cough.describes the cough as nonproductive cough mostly dry cough, denies any fever or chills, denies any chest pain, no hemoptysis, no nausea, no vomiting, no abdominal pain.chest x-ray in the ER showed evidence of bilateral interstitial type of edema, pleural effusions, right more than left pleural effusions noted,perihilar opacities noted especially in the right lungpatient was noted to have a bit of a leukocytosis with WBC count of 13.3 hemoglobin 9.6.d-dimer 1.15BNP level normal. Screening for influenza A, influenza B, RSV, and COVID-19 were all negative. I happened to be in the ER at the time, I evaluated the patient, and I went ahead and performed a right sided thoracentesis with ultrasound guidance, and I was able to get 950 mL of light. Make looking fluid which was sent for different diagnostic studiesin the meantime the patient will be admitted, he'll be placed on antibiotics/Zosyn empirically, and he'll be placed on updrafts. Patient was reevaluated today on 03/02/22, patient underwent uneventful right sided thoracentesis yesterday, the fluid came back transudate of in nature, cholesterol level is low, triglyceride level is pending, the fluid looked like be anemic, hence I was concerned about the possibility of chylothorax. So far the triglyceride level is pending, if more than 110, this will imply chylothorax, and the differential diagnoses will completely point towards poss ible malignancy. However if the fluid does not seem to be chylothorax, then I believe the fluid is most likely cardiac in nature. Looking back at the patient few months ago, he had a similar presentation with bilateral pleural effusions treated mostly with diuretics. And the fluids have completely resolved. Hence I'm recommending that we start the patient on a low dose of Lasix today, and keep an eye on his chest x-ray in the next couple of days. Clinically the patient is doing well, triglycerides on the pleural effusion are pending. Patient is mostly on antibiotics for his foot cellulitis, and not for his lungs. Pro calcitonin level came back normal. WBC count is 7.8 hemoglobin 8.2 electrolytes are normal renal profile is normal, initial report on the fluid came back mostly transudate of in nature. The patient is seen today 03/03/2022 in follow-up on the selective care unit. Oscar mackey is currently resting fairly comfortably in bed. Awake and alert in no acute distress. He is maintaining O2 saturations in the mid 90s on room air. He's afebrile. Hemodynamically stable. Follow-up chest x-ray reveals persistent right airspace opacities. Right-sided PICC line in place. Small left pleural effusion. Echocardiogram reveals preserved left ventricle systolic function with ejection fraction 55%. No significant valvular abnormalities. White count 9.1. Hemoglobin 8.9. Platelets 523. Sodium 135. Potassium 5.0. BUN 25. Creatinine 0.97. Glucose 279. He remains on Unasyn for his cellulitis. Continued on bronchodilators. Heparin for DVT prophylaxis. Continued on Lasix 20 mg IV every 12 hours. No accurate I&O. Triglyceride levels from the pleural fluid are still pending. Lab was contacted this morning. Awaiting results. The patient is seen today 03/04/2022 in follow-up on the selective care unit. He is resting comfortably in bed. Awake and alert in no acute distress. Maintaining O2 saturations in the 90s on 2 L/m per nasal cannula. Denies any worsening shortness of breath, cough or congestion. Blood cultures revealed no growth. Pleural fluid was transudate in nature with a total protein of 2.4 and LDH of 83. White count 8.5. He will be 9.1. Platelets 567. Sodium 138. Potassium 4.3. BUN 22. Creatinine 0.9. Blood sugar 157. He remains on DuoNeb inhalations. Continued on IV diuretics. No accurate I&O. Remains on antibiotics in the form of Unasyn. Heparin for DVT prophylaxis. The patient is seen today 03/05/2022 in follow-up on [facility] care unit. Sitting up in bed. Awake and alert in no acute distress. His main complaint t sowmya is that of cough that kept him up most of the night. He remains on DuoNeb inhalations. Continued on oral diuretics. Maintaining good O2 saturations in the mid 90s on 2 L/m per nasal cannula. Afebrile. Blood cultures revealed no growth. Blood sugar 222. ID is service is following regarding the diabetic wound and foot ulcer. Plan is for PICC line placement today. Continued on Unasyn. Follow up chest x-ray reveals small bilateral effusions. Improved aeration of the lungs with persistent multifocal airspace opacities The patient is seen today 03/06/2022 in follow-up on the selective care unit. He is resting comfortably in bed. Awake and alert in no acute distress. Last cough and congestion. Maintaining O2 saturations in the 90s on 2 L/m per nasal cannula. Normal saline at 75 ML's per hour. Lead cultures revealed no growth. White count 8.3. Hemoglobin 8.7. Sodium 135. Potassium 4.3. BUN 22. Creatinine 1.08. Glucose 162. He remains on DuoNeb inhalations. Unasyn for cellulitis. Heparin for DVT prophylaxis. Oral diuretics. Continued on Tessalon Perles I'm reevaluating this patient today on 03/07/2022 on a general medical floor. He is resting comfortably in bed, on 2 L nasal cannula. He denies any shortness of breath, cough, chest pain, fever. Patient is telling me that he is ready for discharge back to [facility]. He has no IV fluids infusing. Patient's vital signs remain stable. Patient's chest x-ray from today showed slightly interval worsening of the multifocal airspace bases. Patient remains afebrile. CBC from today is stable with a WBC count 9, hemoglobin 7.9, hematocrit 26, platelets 493,000. BMP from today also stable with a sodium 135, potassium 4.2, chloride 99, serum CO2 2724.2, creatinine 1.2, glucose 234. Patient's pain maintained on DuoNeb inhalation, Tessalon Perles persistent nonproductive cough, daily Lasix, and empiric Unasyn. Patient has been receiving heparin for DVT prophylaxis. Progress note dated 03/08/2022. 61-year-old male, seen today in room 521. The patient remains on saline at 20 mL an hour, and 2 L of oxygen. Nurse mentioned that he may be discharged to a local detention later today. Clinically, the patient is stable. He denies any worsening symptoms of shortness of breath, cough, wheezing, or phlegm production. He also denies any chest pain or pressure. White count 7.9, hemoglobin 8.3, hematocrit 27.3, and platelet count 494,000. Electrolytes look normal to me, including sodium, potassium, chloride, CO2, BUN, and creatinine. The patient C-reactive protein was 6.90. Pro-calcitonin level is normal at 0.09. Previous x-rays are reviewed. Progress note dated 03/09/2022. 61-year-old male seen again in room 521. He remains on oxygen at 2 L. Saturations are 96%. He is getting saline IV, at 20 mL an hour. He has no complaints today. Lab work today includes only a sugar of 198. Blood cultures are negative. Apparently, the patient is being placed in a local detention, but that has not occurred. Pro-calcitonin level when last checked was 0.09. I'm reevaluating this patient today on 03/10/2022 on a general medical floor.he is sitting up in bed on 2 L nasal cannula. He appears fairly comfortable. denies shortness of breath, cough, chest pain, fever. The plan is for discharge back to [facility]. He is receiving normal saline at [facility]. no new CBC to review today. BMP from today shows a sodium of 140, potassium 3.9, chloride 99, serum CO2 31, BUN 18.8, creatinine 1.1, glucose 117. patient has remained afebrile, and his vital signs remain stable. he has continued to receive IV Unasyn for a right foot cellulitis/diabetic ulcer that was previously positive for enterococcus faecalis. He continues to receive DuoNeb inhalations, Protonix for GI prophylaxis, heparin for DVT prophylaxis, and diuresis in the form of daily Lasix. Objective - Vital Signs Vital signs: Vital Signs Temp 98.1 F 03/10/22 07:47 Pulse 76 03/10/22 11:47 Resp 16 03/10/22 07:47 BP 167/87 03/10/22 07:47 Pulse Ox 97 03/10/22 07:47 FiO2 Intake & Output 03/09/22 03/10/22 03/10/22 18:59 06:59 18:59 Intake Total 590 Balance 590 Weight 51.908 kg Intake: Oral 590 Other: Voiding Method Bedside Commode Urinal # Voids 2 3 1 - Exam GENERAL EXAM: Alert, 61-year-old male, on 2 L/m per nasal cannula, comfortable in no apparent distress. HEAD: Normocephalic. EYES: Normal reaction of pupils, equal size. NOSE: Clear with pink turbinates. THROAT: No erythema or exudates. NECK: No masses, no JVD. CHEST: No chest wall deformity. LUNGS: Equal air entry auscultation. No wheezes, crackles, or rhonchi CVS: S1 and S2 normal with no audible murmur, regular rhythm. ABDOMEN: No hepatosplenomegaly, normal bowel sounds, no guarding or rigidity. SPINE: No scoliosis or deformity SKIN: No rashes CENTRAL NERVOUS SYSTEM: No focal deficits, tone is normal in all 4 extremities. EXTREMITIES: Dressing to the right foot dry and intact. There is no peripheral edema. No clubbing, no cyanosis. Peripheral pulses are intact. - Labs CBC & Chem 7: 03/08/22 06:18 03/10/22 06:03 Labs: Abnormal Lab Results - Last 24 Hours (Table) 03/09/22 03/10/22 03/10/22 Range/Units 17:18 01:02 05:57 Carbon Dioxide (20.0-27.5) mmol/L Anion Gap (10.00-18.00) mmol/L Glucose (70-110) mg/dL POC Glucose (mg/dL) 134 H 116 H 124 H (70-110) mg/dL 03/10/22 03/10/22 03/10/22 Range/Units 06:03 07:17 11:21 Carbon Dioxide 30.9 H (20.0-27.5) mmol/L Anion Gap 9.80 L (10.00-18.00) mmol/L Glucose 117 H (70-110) mg/dL POC Glucose (mg/dL) 160 H 126 H (70-110) mg/dL Assessment and Plan Assessment: Shortness of breath with abnormal CT of the chest and chest x-ray showing bilateral opacities and pleural effusions, status post right sided thoracentesis, and the pleural effusion seems to be suspicious for chylothorax. However triglyceride level is pending. Lab was contacted today and results are pending. Otherwise, most likely transudate with a total protein of 2.4 and an LDH of 83. Nonspecific mediastinal and axillary adenopathy, will need to be further evaluated, underlying malignancy to be considered. If the fluid is truly chylothorax, this may imply that we may be dealing with lymphoma and the workup should proceed that way to rule out lymphoma. However considering the fluid was present a few months ago very similar presentation and resolved with diuretics, restarted the patient back on diuretics low dose. Right foot cellulitis and skin ulcers/diabetic foot ulcers positive for enterococcus faecalis, patient is on Unasyn on outpatient basis via PICC line. Insulin-dependent diabetes. History of seizure disorder Possible osteomyelitis right foot. Currently on Unasyn. PICC line being placed to continue treatment outpatient. Plan: The patient was seen and evaluated Patient's medications, labs reviewed. Titrate down the FiO2 as tolerated he will continue IV antibiotics outpatient through PICC line. Plan is for discharge to [facility] after authorization is obtained. From a pulmonary standpoint patient is cleared for discharge. We will continue to follow as neededas needed I have personally seen and examined the patient, performed the documentation and the assessment and plan as written. Number of minutes spent on the visit: 10. Time with Patient: Less than 30
--- NOTE | 2022-03-10 14:55 | P.PN ---
Subjective Progress Note Date: 03/10/22 Principal diagnosis: Right foot osteomyelitis and question of pneumonia Patient is a 61-year-old male with multiple comorbidities including diabetes mellitus the patient did have right diabetic foot infection with a nonhealing wound on the plantar aspect of the right foot and underlying osteomyelitis in this patient who is status post debridement of the wound local culture positive for Enterococcus faecalis patient did get a PICC line and was advised six-week course of IV Unasyn with the patient was currently receiving at the local [place] [facility] patient apparently has been sent to the ER for evaluation of increasing shortness of breath, patient noticed to have a right-sided effusion status post thoracocentesis and there is concern for possible chylothorax throat is mostly transudate and the patient did have normal pro- calcitonin. On today's evaluation her that is 03/10/2022, the patient continues to be afebrile, the patient is breathing comfortably on 2 L nasal cannula, patient denies chest pain, the patient cough has decreased in intensity occasional spu isra or hemoptysis no abdominal pain or pain to the right foot wound area Objective - Vital Signs Vital signs: Vital Signs Temp 98.1 F 03/10/22 13:30 Pulse 80 03/10/22 13:30 Resp 18 03/10/22 13:30 BP 145/75 03/10/22 13:30 Pulse Ox 97 03/10/22 13:30 FiO2 Intake & Output 03/09/22 03/10/22 03/10/22 18:59 06:59 18:59 Intake Total 590 Balance 590 Weight 51.908 kg Intake: Oral 590 Other: Voiding Method Bedside Commode Urinal # Voids 2 3 1 - Exam GENERAL DESCRIPTION: Middle-aged male lying in bed in no distress RESPIRATORY SYSTEM: Unlabored breathing , decreased breath sounds at bases HEART: S1 S2 regular rate and rhythm , ABDOMEN: Soft , no tenderness EXTREMITIES: Right foot plantar wound did have some purulent drainage at the time of dressing changes however no surrounding redness - Labs CBC & Chem 7: 03/08/22 06:18 03/10/22 06:03 Labs: Abnormal Lab Results - Last 24 Hours (Table) 03/09/22 03/10/22 03/10/22 Range/Units 17:18 01:02 05:57 Carbon Dioxide (20.0-27.5) mmol/L Anion Gap (10.00-18.00) mmol/L Glucose (70-110) mg/dL POC Glucose (mg/dL) 134 H 116 H 124 H (70-110) mg/dL 03/10/22 03/10/22 03/10/22 Range/Units 06:03 07:17 11:21 Carbon Dioxide 30.9 H (20.0-27.5) mmol/L Anion Gap 9.80 L (10.00-18.00) mmol/L Glucose 117 H (70-110) mg/dL POC Glucose (mg/dL) 160 H 126 H (70-110) mg/dL Assessment and Plan (1) Pneumonia Current Visit: Yes Status: Acute Code(s): J18.9 - PNEUMONIA, UNSPECIFIED ORGANISM SNOMED Code(s): 040689931 (2) Infected wound Current Visit: No Status: Acute Code(s): T14.8XXA - OTHER INJURY OF UNSPEC IFIED BODY REGION, INITIAL ENCOUNTER; L08.9 - LOCAL INFECTION OF THE SKIN AND SUBCUTANEOUS TISSUE, UNSP SNOMED Code(s): 50309013 Plan: 1patient with right diabetic foot infection with underlying ostial myelitis secondary to Enterococcus faecalis for the patient was currently getting Unasyn and local [place] [facility] patient right foot plantar wound seems to be healing well without evidence of any surrounding redness or any foul-smelling drainage. 2patient no with right-sided effusion possibly related to cardiac etiology currently waiting for the triglyceride to rule out chylothorax with a normal pro-calcitonin 2 with a repeat this morning was 0.09, chest x-ray however did shows slight worsening pulmonary is following the patient closely 3 local wound care to the right foot plantar wound with Aquacel silver dressing changed every 48 hour. 4patient seems to be clinically improving as well as the right diabetic foot infection and will continue with Unasyn, currently waiting for placement Time with Patient: Less than 30
[2022-03-10 17:14] LABS: Glucose,Whole Blood 143 mg/dL (70-110)
[2022-03-10 20:21] LABS: Glucose,Whole Blood 252 mg/dL (70-110)
[2022-03-10] MEDS: ATORVASTATIN 20 MG TAB PO SCH (22:28)
[2022-03-10] MEDS: SODIUM CHLORIDE 0.9% 1,000 ML IV SCH (22:28)
[2022-03-10] MEDS: LATANOPROST 0.005% OPHTH DROPS 2.5 ML BTL BOTH EYES SCH (22:29)
[2022-03-11 01:59] LABS: Glucose,Whole Blood 249 mg/dL (70-110)
--- NOTE | 2022-03-11 05:55 | P.PN ---
Subjective Progress Note Date: 03/10/22 Patient is a 61-year-old male with a known history of chronic diabetic foot ulcer with cultures growing Enterococcus faecalis and is currently on Unasyn at [facility], hypertension, hyperlipidemia, diabetes type 2, osteoarthritis, seizure disorder, bilateral peripheral neuropathy, depression a nd other medical problems was sent to ER with complaints of shortness of breath which is worsening for the past 1 week along with cough which is mainly nonproductive. No fever or chills. No complains of chest pain. No nausea vomiting abdominal pain or diarrhea. Chest x-ray on admission showed correlate for interval development of CHF with patchy pulmonary edema. Moderate right greater than left pleural effusion. Laboratory data cerebrospinal 0.3 hemoglobin 9.6 and platelets 505 Sodium 134, potassium 4.5 chloride 104 bicarb is 27 BUN 18 and creatinine 0.6 and blood sugar is 312 admission. Albumin 3.3 proBNP 476 D-dimer is 1.15 patient underwent thoracentesis by pulmonary in the ER. Patient is being covered on broad-spectrum antibiotics. 03/02/22 Patient is currently lying in bed. Awake alert and oriented. Breathing status is better today. Status post thoracentesis yesterday. Possible chylothorax is being considered. triglyceride level is pending. Patient is being continued on Lasix IV. Chest x-ray showed possible additional P infiltrates medial right base and left upper lobe. Patient is on antibiotics, Zosyn changed to Unasyn as per ID recommendations. Pulmonary is on board. Laboratory data showed WBC 7.8 hemoglobin 8.2 and platelets 481 Sodium 137 potassium 4.4 BUN 21 and creatinine 0.97 and pressure was 58. 03/03/22 Patient is seen resting in the bed. Awake alert and oriented 3. No complaints of chest pain or worsening shortness of breath. Currently titrated down to room air. Afebrile. No nausea vomiting abdominal pain or diarrhea. Repeat chest x-ray today showed persistent right 8 passes which have increased from prior. Wade peak distal tip in appropriate position. Small left pleural effusion. Patient remains on antibiotics the form Unasyn. Also being continued on Lasix. 2-D echocardiogram for normal ejection fraction. No significant wall motion abnormalities noted. laboratory data reviewed. 03/04/22 Patient is currently in [facility]. Lying in bed. Awake alert and oriented 3. No complaints of fever or chills. Right foot pain is better and is being continued on being continued on Unasyn. Blood Cultures have been n egative. Also on Lasix. Repeat chest x-ray today and tomorrow. He was hypoglycemic. Insulin dose was reduced. Was taking 50 units daily changed to 35 units along with sliding scale. WBC 8.5 hemoglobin 9.1 and platelets 567, bicarb is 31 BUN 22 and creatinine 0.9 and blood sugar is 33 this morning. 03/05/2022 Patient is currently lying in the bed. Awake alert and oriented x3. On oxygen at 2 L via nasal cannula. Denies any complaints of chest pain or worsening shortness of breath. Continued on IV antibiotics, Unasyn. IV Lasix changed to 40 mg p.o. daily. Patient's blood sugar was down to 50 today afternoon. Lantus dose decreased to 35 units and preprandial insulin was added. Patient is scheduled for PICC line placement today. 03/06/2022 Patient is resting in the bed. Awake alert and oriented x3. No complaints of chest pain or shortness of breath. No nausea vomiting or abdominal pain or diarrhea. No cough or sputum production. Patient is currently 2 L oxygen via nasal cannula. Status post PICC line placement. Continue Zosyn currently. Also on Lasix 40 mg daily. Denied any complaints of fever or chills. Right foot dressing change was done. ID and pulmonary is on board. Laboratory data showed WBC 8.3 hemoglobin 8.7 and platelets 536 Blood sugar is better controlled now. 03/07/2022 Patient is resting in bed. Awake alert and oriented x3. No complaints of chest pain. Patient states that his breathing status is worse today. Repeat chest x- ray was ordered. IV fluids will be on hold and patient is tolerating oral diet. No complaints of nausea or vomiting or abdominal pain. Patient is on antibiotics in the form of Unasyn. ID is on board and continued on wound care for right lower extremity diabetic foot ulcer. Laboratory data showed WBC 9.0, hemoglobin 7.8 and platelets 483 Sodium 134 potassium 4.2 chloride 99 bicarb is 26.9 BUN 24.1 creatinine 1.2. B lood sugar is 234. Calcium 8.6. ID and pulmonary is on board. 03/08/2022 Patient is seen and evaluated and follow-up being followed by infectious disease and pulmonary. Patient has been cleared for transfer to ECF all awaiting insurance authorization. Patient continues on 4 L via nasal cannula recommend wean FiO2 as tolerated. Infectious disease following the patient is maintained on IV antibiotics and continued wound care of the right lower extremity. Patient is currently afebrile denies chest pain or worsening shortness of breath. Patient reporting generalized weakness and recommend PT/OT therapy daily. Encouraged oral intake. 03/09/2022 Patient is seen in follow-up this morning with no acute overnight issues noted. Patient is on 2 L via nasal cannula maintaining oxygen saturations of 96%. Patient is continued on ampicillin along with DuoNeb treatments and oral Lasix. Adjustments to insulins made as patient was having hypoglycemic events and will continue with sliding scale and 30 units subcu daily of Levemir. Patient with significant weakness and antibiotics via PICC line will likely be going to ECF once insurance authorization is obtained. Patient is currently afebrile denies worsening shortness of breath or chest pain. Tolerating diet and needs encouragement for oral intake. Recommend PT/OT therapy daily 03/10/2022 Patient is seen and evaluated in follow-up today currently maintained on 2 L with pulmonary and infectious disease following. Patient is continued on Unasyn does have a PICC line and will be continuing to complete course of therapy. [facility] scheduled for ECF although awaiting insurance authorization and given the dermatology will follow up with case management in the a.m. Patient is scheduled to go to [facility] [place]. Patient is currently afebrile denies chest pain or shortness of breath. Recommend continuing to monitor Accu-Cheks before meals and at bedtime and titrate insulin sliding scale accordingly. Encouraged oral intake and increased activity as tolerated. Review of systems: Constitutional: No reports of fatigue, fever, or chills Cardiovascular: No reports of chest pain or palpitations Respiratory: No reports of worsening shortness of breath or cough GI: No reports of nausea, vomiting, or diarrhea : No reports of dysuria or retention Neurovascular: reports of generalized weakness All medications have been reviewed PHYSICAL EXAMINATION: Patient is sitting up in the bed comfortably, no acute distress, awake alert, thin built, cachectic, elderly-appearing male HEENT: Normocephalic. Neck is supple. Pupils reactive. Nostrils clear. Oral cavity is moist. Neck reveals no JVD, carotid bruits, or thyromegaly. CHEST EXAMINATION: Trachea is central. Symmetrical expansion. Scattered rhonchi No wheezing... CARDIAC: Normal S1, S2 with no gallops. No murmurs ABDOMEN: Soft. Bowel sounds normal. No organomegaly. No abdominal bruits. Extremities: reveal no edema. No clubbing or cyanosis Neurologically awake, alert, oriented 3 with well-coordinated movements. No focal deficits noted, diffusely weak Skin: No rash. Patient does have right foot ulcer which is wrapped. Psychiatric: Cooperative. Non-suicidal Musculoskeletal: No joint swelling or deformity. Normal range of motion. Assessment: Worsening shortness of breath due to bilateral pleural effusions right greater than left. Suspicious for chylothorax. Status post right thoracentesis. Pleural fluid is transudative. Acute hypoxic respiratory failure secondary to above Elevated triglyceride level. Mediastinal and axillary lymphadenopathy. Possible underlying malignancy cannot be excluded. Right diabetic foot ulcer with recent wound cultures growing Enterococcus faecalis was maintained on Unasyn with PICC line. Hyperglycemia with uncontrolled diabetes type 2. Insulin-dependent. Patient had hypoglycemic episodes. Seizure disorder Hyperlipidemia Diabetic peripheral neuropathy Depression Iron deficiency anemia. DVT prophylaxis with heparin subcu Plan: Patient will be continued on oxygen supplementation. Status post right thoracentesis. Continued on Lasix 40mg daily by mouth. Wean FiO2 as tolerated, currently on 2 L via nasal cannula Continued with broad-spectrum antibiotics in the form of Unasyn blood cultures remain negative. Infectious disease following patient does have a PICC line as patient had been receiving IV antibiotics outpatient at the [facility] for lower extremity wounds. Showing clinical improvement and will continue at [facility] to complete the course Continue with wound care. Patient continued on insulin regimen and sliding scale. Titrate insulin dose as needed. Recommend monitor Accu-Cheks closely as patient has been having both hypo-and hyperglycemia. Encouraged oral intake. Case management following working in [facility] and will require insurance authorization due to the observed holiday most likely will not occur today. Will follow up with case management in the a.m along with liaison for [facility] [place]. Recommend PT/OT therapy daily Due to multiple complex medical issues, prognosis is guarded Possible discharge in 24-48 hours The impression and plan of care has been dictated by Kourtney Orr, Nurse Practitioner as directed. Dr. Roby MD I have performed a history and examination and MDM of this patient, discussed the same with the dictator, and agree with the dictator's assessment and plan as written ,documented as a scribe. Based on total visit time, I have performed more than 50% of the visit. Objective - Vital Signs Vital signs: Vital Signs Temp 98.1 F 03/10/22 13:30 Pulse 80 03/10/22 13:30 Resp 18 03/10/22 13:30 BP 145/75 03/10/22 13:30 Pulse Ox 97 03/10/22 13:30 FiO2 Intake & Output 03/09/22 03/10/22 03/10/22 18:59 06:59 18:59 Intake Total 590 Balance 590 Weight 51.908 kg Intake: Oral 590 Other: Voiding Method Bedside Commode Urinal # Voids 2 3 1 - Labs CBC & Chem 7: 03/08/22 06:18 03/10/22 06:03 Labs: Abnormal Lab Results - Last 24 Hours (Table) 03/09/22 03/10/22 03/10/22 Range/Units 17:18 01:02 05:57 Carbon Dioxide (20.0-27.5) mmol/L Anion Gap (10.00-18.00) mmol/L Glucose (70-110) mg/dL POC Glucose (mg/dL) 134 H 116 H 124 H (70-110) mg/dL 03/10/22 03/10/22 03/10/22 Range/Units 06:03 07:17 11:21 Carbon Dioxide 30.9 H (20.0-27.5) mmol/L Anion Gap 9.80 L (10.00-18.00) mmol/L Glucose 117 H (70-110) mg/dL POC Glucose (mg/dL) 160 H 126 H (70-110) mg/dL
[2022-03-11] MEDS: PANTOPRAZOLE 40 MG TABLET PO SCH (05:56)
[2022-03-11] MEDS: AMPICILLIN-SULBACTAM 3 GM in SODIUM CHLORIDE 0.9% 100 ML IVPB SCH ×3 (05:56→17:16)
[2022-03-11 07:17] LABS: Glucose,Whole Blood 267 mg/dL (70-110)
[2022-03-11] MEDS: IPRATROPIUM-ALBUTEROL 3 ML NEB INHALATION SCH ×3 (07:25→15:24)
[2022-03-11 08:20] VITALS: RESP 16
[2022-03-11] MEDS: ASPIRIN 325 MG TAB PO SCH (08:45)
[2022-03-11] MEDS: HEPARIN SODIUM,PORCINE/PF 5,000 UNIT/0.5 ML SYRINGE SQ SCH (08:45)
[2022-03-11] MEDS: INSULIN ASPART (NovoLOG) 100 UNIT/ML VIAL SQ SCH ×3 (08:45→17:15)
[2022-03-11] MEDS: INSULIN DETEMIR (LEVEMIR) 100 UNIT/ML SYR SQ SCH (08:45)
[2022-03-11] MEDS: FUROSEMIDE 40 MG TAB PO SCH (08:45)
[2022-03-11] MEDS: PHENYTOIN SODIUM EXTENDED 100 MG CAP PO SCH (08:45)
[2022-03-11] MEDS: PIOGLITAZONE 15 MG TAB PO SCH (08:46)
[2022-03-11] MEDS: FERROUS SULFATE 325 MG TAB PO SCH (08:46)
[2022-03-11] MEDS: METOPROLOL TARTRATE 25 MG TAB PO SCH ×2 (08:46→16:09)
[2022-03-11] MEDS: NITROGLYCERIN OINT 1 INCH/GM PACKET TOPICAL SCH ×3 (08:46→17:17)
--- NOTE | 2022-03-11 08:52 | P.PN ---
Subjective Progress Note Date: 03/11/22 this is a 61-year-old white male with history of chronic right foot diabetic foot ulcers, history of peripheral vessel occlusive disease,diabetes, patient is at the [facility] receiving IV antibiotics via PICC line for his right foot diabetic ulcer. Patient presented to the ER today with 1 week history of s hortness of breath and cough.describes the cough as nonproductive cough mostly dry cough, denies any fever or chills, denies any chest pain, no hemoptysis, no nausea, no vomiting, no abdominal pain.chest x-ray in the ER showed evidence of bilateral interstitial type of edema, pleural effusions, right more than left pleural effusions noted,perihilar opacities noted especially in the right lungpatient was noted to have a bit of a leukocytosis with WBC count of 13.3 hemoglobin 9.6.d-dimer 1.15BNP level normal. Screening for influenza A, influenza B, RSV, and COVID-19 were all negative. I happened to be in the ER at the time, I evaluated the patient, and I went ahead and performed a right sided thoracentesis with ultrasound guidance, and I was able to get 950 mL of light. Make looking fluid which was sent for different diagnostic studiesin the meantime the patient will be admitted, he'll be placed on antibiotics/Zosyn empirically, and he'll be placed on updrafts. Patient was reevaluated today on 03/02/22, patient underwent uneventful right sided thoracentesis yesterday, the fluid came back transudate of in nature, cholesterol level is low, triglyceride level is pending, the fluid looked like be anemic, hence I was concerned about the possibility of chylothorax. So far the triglyceride level is pending, if more than 110, this will imply chylothorax, and the differential diagnoses will completely point towards possible malignancy. However if the fluid does not seem to be chylothorax, then I believe the fluid is most likely cardiac in nature. Looking back at the patient few months ago, he had a similar presentation with bilateral pleural effusions treated mostly with diuretics. And the fluids have completely resolved. Hence I'm recommending that we start the patient on a low dose of Lasix today, and keep an eye on his chest x-ray in the next couple of days. Clinically the patient is doing well, triglycerides on the pleural effusion are pending. Patient is mostly on antibiotics for his foot cellulitis, and not for his lungs. Pro calcitonin level came back normal. WBC count is 7.8 hemoglobin 8.2 electrolytes are normal renal profile is normal, initial report on the fluid came back mostly transudate of in nature. The patient is seen today 03/03/2022 in follow-up on the selective care unit. He is currently resting fairly comfortably in bed. Awake and alert in no acute distress. He is maintaining O2 saturations in the mid 90s on room air. He's afebrile. Hemodynamically stable. Follow-up chest x-ray reveals persistent right airspace opacities. Right-sided PICC line in place. Small left pleural effusion. Echocardiogram reveals preserved left ventricle systolic function with ejection fraction 55%. No significant valvular abnormalities. White count 9.1. Hemoglobin 8.9. Platelets 523. Sodium 135. Potassium 5.0. BUN 25. Creatinine 0.97. Glucose 279. He remains on Unasyn for his cellulitis. Continued on bronchodilators. Heparin for DVT prophylaxis. Continued on Lasix 20 mg IV every 12 hours. No accurate I&O. Triglyceride levels from the pleural fluid are still pending. Lab was contacted this morning. Awaiting results. The patient is seen today 03/04/2022 in follow-up on the selective care unit. He is resting comfortably in bed. Awake and alert in no acute distress. Maintaining O2 saturations in the 90s on 2 L/m per nasal cannula. Denies any worsening shortness of breath, cough or congestion. Blood cultures revealed no growth. Pleural fluid was transudate in nature with a total protein of 2.4 and LDH of 83. White count 8.5. He will be 9.1. Platelets 567. Sodium 138. Potassium 4.3. BUN 22. Creatinine 0.9. Blood sugar 157. He remains on DuoNeb inhalations. Continued on IV diuretics. No accurate I&O. Remains on antibiotics in the form of Unasyn. Heparin for DVT prophylaxis. The patient is seen today 03/05/2022 in follow-up on [facility] care unit. Sitting up in bed. Awake and alert in no acute distress. His main complaint today is that of cough that kept him up most of the night. He remains on DuoNeb inhalations. Continued on oral diuretics. Maintaining good O2 saturations in the mid 90s on 2 L/m per nasal cannula. Afebrile. Blood cultures revealed no growth. Blood sugar 222. ID is service is following regarding the diabetic wound and foot ulcer. Plan is for PICC line placement today. Continued on Unasyn. Follow up chest x-ray reveals small bilateral effusions. Improved aeration of the lungs with persistent multifocal airspace opacities The patient is seen today 03/06/2022 in follow-up on the selective care unit. He is resting comfortably in bed. Awake and alert in no acute distress. Last cough and congestion. Maintaining O2 saturations in the 90s on 2 L/m per nasal cannula. Normal saline at 75 ML's per hour. Lead cultures revealed no growth. White count 8.3. Hemoglobin 8.7. Sodium 135. Potassium 4.3. BUN 22. Creatinine 1.08. Glucose 162. He remains on DuoNeb inhalations. Unasyn for cellulitis. Heparin for DVT prophylaxis. Oral diuretics. Continued on Tessalon Perles The patient is seen today 03/11/2022 in follow-up on the regular medical floor. He is sitting up in bed. Awake and alert in no acute distress. He is maintaining good O2 saturations in the 90s on 2 L/m per nasal cannula. He's been afebrile. Hemodynamically stable. Blood sugar 249. Continue DuoNeb inhalations. Oral diuretics. Heparin for DVT prophylaxis. Remains on Unasyn for cellulitis. Awaiting transfer to [facility]. Objective - Vital Signs Vital signs: Vital Signs Temp 98.1 F 03/11/22 07:18 Pulse 80 03/11/22 07:38 Resp 16 03/11/22 07:18 BP 177/84 03/11/22 07:18 Pulse Ox 96 03/11/22 07:18 FiO2 Intake & Output 03/10/22 03/11/22 03/11/22 18:59 06:59 18:59 Intake Total 500 Balance 500 Weight 45 kg Intake: Oral 500 Other: Voiding Method Bedside Commode Urinal # Voids 2 4 - Exam GENERAL EXAM: Alert, 61-year-old male, sitting up in bed, on 2 L/m per nasal cannula, comfortable in no apparent distress. HEAD: Normocephalic. EYES: Normal reaction of pupils, equal size. NOSE: Clear with pink turbinates. THROAT: No erythema or exudates. NECK: No masses, no JVD. CHEST: No chest wall deformity. LUNGS: Equal air entry with crackles in the right lung base. CVS: S1 and S2 normal with no audible murmur, regular rhythm. ABDOMEN: No hepatosplenomegaly, normal bowel sounds, no guarding or rigidity. SPINE: No scoliosis or deformity SKIN: No rashes CENTRAL NERVOUS SYSTEM: No focal deficits, tone is normal in all 4 extremities. EXTREMITIES: Dressing to the right foot dry and intact. There is no peripheral edema. No clubbing, no cyanosis. Peripheral pulses are intact. - Labs CBC & Chem 7: 03/08/22 06:18 03/10/22 06:03 Labs: Abnormal Lab Results - Last 24 Hours (Table) 03/10/22 03/10/22 03/10/22 Range/Units 06:03 11:21 17:12 Carbon Dioxide 30.9 H (20.0-27.5) mmol/L Anion Gap 9.80 L (10.00-18.00) mmol/L Glucose 117 H (70-110) mg/dL POC Glucose (mg/dL) 126 H 143 H (70-110) mg/dL 03/10/22 03/11/22 03/11/22 Range/Units 20:16 01:52 07:16 Carbon Dioxide (20.0-27.5) mmol/L Anion Gap (10.00-18.00) mmol/L Glucose (70-110) mg/dL POC Glucose (mg/dL) 252 H 249 H 267 H (70-110) mg/dL Assessment and Plan Assessment: Shortness of breath with abnormal CT of the chest and chest x-ray showing bilateral opacities and pleural effusions, status post right sided thoracentesis, and the pleural effusion seems to be suspicious for chylothorax. However triglyceride level is pending. Lab was contacted today and results are pending. Otherwise, most likely transudate with a total protein of 2.4 and an LDH of 83. Nonspecific mediastinal and axillary adenopathy, will need to be further evaluated, underlying malignancy to be considered. If the fluid is truly chylothorax, this may imply that we may be dealing with lymphoma and the workup should proceed that way to rule out lymphoma. However considering the fluid was present a few months ago very similar presentation and resolved with diuretics, restarted the patient back on diuretics low dose. Right foot cellulitis and skin ulcers/diabetic foot ulcers positive for enterococcus faecalis, patient is on Unasyn on outpatient basis via PICC line. Insulin-dependent diabetes. History of seizure disorder Possible osteomyelitis right foot. Currently on Unasyn. PICC line being placed. Plan: The patient was seen and evaluated Medications reviewed Continue the current treatment plan Titrate down the FiO2 as tolerated Plan is for subacute rehabilitation post discharge Cleared for discharge from the pulmonary standpoint I have personally seen and examined the patient, performed the documentation and the assessment and plan as written. Number of minutes spent on the visit: 10.
[2022-03-11 11:15] LABS: Glucose,Whole Blood 252 mg/dL (70-110)
[2022-03-11 13:31] VITALS: TEMP 97.8
--- NOTE | 2022-03-11 15:25 | P.DS ---
Providers Date of admission: 03/01/22 14:14 Expected date of discharge: 03/11/22 Attending physician: Helen Chen Consults: 03/01/22 14:11 Consult Physician Routine Consulting Provider: Junie Cunningham Consult Reason/Comments: dyspnea Do you want consulting provider notified?: Already Contacted Consult Physician Routine Consulting Provider: Cameron Martin Consult Reason/Comments: chf Do you want consulting provider notified?: Yes 03/01/22 14:55 Consult Physician Routine Consulting Provider: Tess Moran Consult Reason/Comments: ? Chylothorax Do you want consulting provider notified?: Yes Primary care physician: Helen Chen [facility] Course: Final diagnosis Worsening shortness of breath due to bilateral pleural effusions right greater than left. Suspicious for chylothorax. Status post right thoracentesis. Pleural fluid is transudative. Acute hypoxic respiratory failure secondary to above Elevated triglyceride level. Mediastinal and axillary lymphadenopathy. Possible underlying malignancy cannot be excluded. Right diabetic foot ulcer with recent wound cultures growing Enterococcus faecalis was maintained on Unasyn with PICC line. Hyperglycemia with uncontrolled diabetes type 2. Insulin-dependent. Patient had hypoglycemic episodes. Seizure disorder Hyperlipidemia Diabetic peripheral neuropathy Depression Iron deficiency anemia.DVT prophylaxis with heparin subcu Discharge disposition Patient is being discharged in a stable condition with guarded prognosis to [facility]. Patient will follow-up with Dr. Chen in the outpatient setting upon discharge. Patient is to follow-up at the wound care center with infectious disease Dr. Moran in 1-2 weeks. Patient to continue with local wound care and also IV antibiotics in the form of Unasyn and patient has received a PICC line. Total time taken is greater than 35 minutes. Hospital course This is a 61-year-old male who was recently admitted with increasing shortness of breath that have been ongoing over the past week and progressively getting worse. Patient also with chronic wounds for diabetic foot ulcers growing enterococcus and patient has had prolonged hospitalization. Patient also in CHF exacerbation with concerns for chylothorax. Infectious disease following patient was maintained on diuretics and cardiology following and adjustments have been made. Patient is continued on Unasyn per ID recommendations and has received a PICC line and will continue. Recommend close outpatient follow-up at his wound care center in 1-2 weeks. Recommend repeat labs of CBC and BMP in the outpatient setting. Patient also diabetic with uncontrolled blood sugars recommend continue sliding scale and long-acting along with Accu-Cheks before meals and at bedtime. Continue with heart healthy diabetic diet. We were awaiting insurance authorization which has been obtained and patient will be discharged to [facility] today. Please refer to other consultation notes for further HPI. Currently no reports of chest pain, shortness of breath, or palpitations. Patient is afebrile. No reports of nausea or vomiting and patient is tolerating diet. Patient will be going to [facility] today. Physical exam: Gen: This is a 61-year-old male who is awake, alert and oriented 3, thin built, cachectic, appears older than stated age HEENT: Head is atraumatic, normocephalic. Pupils equal, round. Sclerae is anicteric. NECK: Supple. No JVD. No lymphadenopathy. No thyromegaly. LUNGS: Diminished breath sounds bilaterally with some scattered rhonchi noted.. No intercostal retractions. HEART: S1, S2 are muffled ABDOMEN: Soft. Bowel sounds are present. No masses. No tenderness. EXTREMITIES: No pedal edema. No calf tenderness. NEUROLOGICAL: Patient is awake, alert and oriented x3. Cranial nerves 2 through 12 are grossly intact. Diffusely weak Please refer to medication reconciliation sheet for a list of medications. The impression and plan of care has been dictated by Kourtney Orr, Nurse Practitioner as directed. Dr. Roby MD I have performed a history and examination and MDM of this patient, discussed the same with the dictator, and agree with the dictator's assessment and plan as written ,documented as a scribe. Based on total visit time, I have performed more than 50% of the visit. Patient Condition at Discharge: Stable Plan - Discharge Summary New Discharge Prescriptions: New Ipratropium-Albuterol Nebulize [Duoneb 0.5 mg-3 mg/3 ml Soln] 3 ml INHALATION RT-QID each Ipratropium-Albuterol Nebulize [Duoneb 0.5 mg-3 mg/3 ml Soln] 3 ml INHALATION RT-Q4H PRN each PRN Reason: shortness of breath Furosemide [Lasix] 40 mg PO DAILY tab Metoprolol Tartrate [Lopressor] 25 mg PO TID tab INSULIN ASPART (NovoLOG) [NovoLOG (formulary)] 0 unit SQ ACHS each Benzonatate [Tessalon Perles] 200 mg PO TID PRN cap PRN Reason: Cough Aspirin 325 mg PO DAILY tab Heparin Sodium,Porcine [Heparin Sodium] 5,000 unit SQ Q12HR 30 Days #60 each Ferrous Sulfate [Iron (65 MG Elemental)] 325 mg PO W/LUNCH tab Insulin Detemir (Levemir) [Levemir] 30 unit SQ DAILY@0700 each Nitroglycerin Oint [Nitro-Bid Oint] 1 inch TOPICAL QID packet Continue Omeprazole 20 mg PO BID@0600,2100 Latanoprost/Pf [Latanoprost 0.005% Eye Drop] 1 drop BOTH EYES HS Acetaminophen Tab [Tylenol] 650 mg PO Q6H PRN PRN Reason: Pain Phenytoin Sodium Extended [Dilantin] 200 mg PO BID Ondansetron [Zofran] 4 mg PO Q8H PRN PRN Reason: Nausea Ampicillin-Sulbactam [Unasyn] 3 gm IVPB Q6H Atorvastatin [Lipitor] 20 mg PO HS Pioglitazone [Actos] 15 mg PO DAILY Glucerna Shake 240 ml PO BID Diphenox-Atrop 2.5-0.025 mg [Lomotil] 1 tab PO BID PRN #4 tab PRN Reason: Loose Stool Discontinued Insulin Lispro [humaLOG Kwikpen] See Protocol SQ ACHS Insulin Glargine,Hum.rec.anlog [Lantus Solostar Pen] 50 units SQ HS Discharge Medication List Omeprazole 20 mg PO BID@0600,2100 06/13/17 [History] Latanoprost/Pf [Latanoprost 0.005% Eye Drop] 1 drop BOTH EYES HS 06/15/21 [History] Acetaminophen Tab [Tylenol] 650 mg PO Q6H PRN 07/17/21 [History] Phenytoin Sodium Extended [Dilantin] 200 mg PO BID 02/14/22 [History] Pioglitazone [Actos] 15 mg PO DAILY 02/14/22 [History] Ampicillin-Sulbactam [Unasyn] 3 gm IVPB Q6H 03/01/22 [History] Atorvastatin [Lipitor] 20 mg PO HS 03/01/22 [History] Glucerna Shake 240 ml PO BID 03/01/22 [History] Ondansetron [Zofran] 4 mg PO Q8H PRN 03/01/22 [History] Aspirin 325 mg PO DAILY tab 03/11/22 [Rx] Benzonatate [Tessalon Perles] 200 mg PO TID PRN cap 03/11/22 [Rx] Diphenox-Atrop 2.5-0.025 mg [Lomotil] 1 tab PO BID PRN #4 tab 03/11/22 [Rx] Ferrous Sulfate [Iron (65 MG Elemental)] 325 mg PO W/LUNCH tab 03/11/22 [Rx] Furosemide [Lasix] 40 mg PO DAILY tab 03/11/22 [Rx] Heparin Sodium,Porcine [Heparin Sodium] 5,000 unit SQ Q12HR 30 Days #60 each 03/11/22 [Rx] INSULIN ASPART (NovoLOG) [NovoLOG (formulary)] 0 unit SQ ACHS each 03/11/22 [Rx] Insulin Detemir (Levemir) [Levemir] 30 unit SQ DAILY@0700 each 03/11/22 [Rx] Ipratropium-Albuterol Nebulize [Duoneb 0.5 mg-3 mg/3 ml Soln] 3 ml INHALATION RT-Q4H PRN each 03/11/22 [Rx] Ipratropium-Albuterol Nebulize [Duoneb 0.5 mg-3 mg/3 ml Soln] 3 ml INHALATION RT-QID each 03/11/22 [Rx] Metoprolol Tartrate [Lopressor] 25 mg PO TID tab 03/11/22 [Rx] Nitroglycerin Oint [Nitro-Bid Oint] 1 inch TOPICAL QID packet 03/11/22 [Rx] Follow up Appointment(s)/Referral(s): Helen Chen MD [Primary Care Provider] - 1-2 days Activity/Diet/Wound Care/Special Instructions: Patient is going to [facility] on the [facility] activity as tolerated continue diabetic diet Continue with antibiotics with PICC line per infectious disease recommendations Recommend to continue monitoring Accu-Cheks before meals and at bedtime and use sliding scale along with long-acting NovoLog sliding scale 0-150 equals 0 units 151-200 equals 2 units 201-250 equals 4 units 251-300 equals 6 units 301-350 equals 8 units 351-400 equals 10 units Please notify provider if blood sugar is 400 or above Continue local wound care Recommend follow-up with primary care provider Recommend follow-up with infectious disease Dr. Moran at the clinic Discharge Disposition: TRANSFER TO SNF/ECF
[2022-03-11 16:11] VITALS: BP 156/82; PULSE 82
[2022-03-11 17:11] LABS: Glucose,Whole Blood 94 mg/dL (70-110)
--- NOTE | 2022-03-14 22:33 | P.PN ---
Subjective Progress Note Date: 03/11/22 Principal diagnosis: Right foot osteomyelitis and question of pneumonia Patient is a 61-year-old male with multiple comorbidities including diabetes mellitus the patient did have right diabetic foot infection with a nonhealing wound on the plantar aspect of the right foot and underlying osteomyelitis in this patient who is status post debridement of the wound local culture positive for Enterococcus faecalis patient did get a PICC line and was advised six-week course of IV Unasyn with the patient was currently receiving at the local care home patient apparently has been sent to the ER for evaluation of increasing shortness of breath, patient noticed to have a right-sided effusion status post thoracocentesis and there is concern for possible chylothorax throat is mostly transudate and the patient did have normal pro- calcitonin. On today's evaluation her that is 03/11/2022, the patient denies any fever or chills, the patient is breathing comfortably, patient denies chest pain, the patient cough has decreased in intensity with occasional sputum denies hem optysis no abdominal pain or pain to the right foot wound area Objective - Vital Signs Vital signs: Vital Signs Temp 98.1 F 03/11/22 07:18 Pulse 72 03/11/22 11:05 Resp 16 03/11/22 07:18 BP 177/84 03/11/22 07:18 Pulse Ox 96 03/11/22 07:18 FiO2 Intake & Output 03/10/22 03/11/22 03/11/22 18:59 06:59 18:59 Intake Total 500 Balance 500 Weight 45 kg Intake: Oral 500 Other: Voiding Method Bedside Commode Urinal # Voids 2 4 - Exam GENERAL DESCRIPTION: Middle-aged male lying in bed in no distress RESPIRATORY SYSTEM: Unlabored breathing , decreased breath sounds at bases HEART: S1 S2 regular rate and rhythm , ABDOMEN: Soft , no tenderness EXTREMITIES: Right foot plantar wound is currently dressed no drainage on the dressing - Labs CBC & Chem 7: 03/08/22 06:18 03/10/22 06:03 Labs: Abnormal Lab Results - Last 24 Hours (Table) 03/10/22 03/10/22 03/10/22 Range/Units 11:21 17:12 20:16 POC Glucose (mg/dL) 126 H 143 H 252 H (70-110) mg/dL 03/11/22 03/11/22 03/11/22 Range/Units 01:52 07:16 11:14 POC Glucose (mg/dL) 249 H 267 H 252 H (70-110) mg/dL Assessment and Plan (1) Pneumonia Status: Acute Code(s): J18.9 - PNEUMONIA, UNSPECIFIED ORGANISM SNOMED Code(s): 307469155 (2) Infected wound Status: Acute Code(s): T14.8XXA - OTHER INJURY OF UNSPECIFIED BODY REGION, INITIAL ENCOUNTER; L08.9 - LOCAL INFECTION OF THE SKIN AND SUBCUTANEOUS TISSUE, UNSP SNOMED Code(s): 67112647 Plan: 1patient with right diabetic foot infection with underlying ostial myelitis secondary to Enterococcus faecalis for the patient was currently getting Unasyn and local care home patient right foot plantar wound seems to be healing well without evidence of any surrounding redness or any foul-smelling drainage. 2patient no with right-sided effusion possibly related to cardiac etiology currently waiting for the triglyceride to rule out chylothorax with a normal pro-calcitonin 2 with a repeat this morning was 0.09, chest x-ray however did shows slight worsening pulmonary is following the patient closely 3 local wound care to the right foot plantar wound with Aquacel silver dressing changed every 48 hour. 4patient to continue with Unasyn to finish a 6 week course of therapy for und erlying Osteomyelitis and a close outpatient follow-up Time with Patient: Less than 30
== END 2022-03-11 19:02 | DRG 186 ==
LOC: EC 12:28 → 3SCARD 14:14 → 5NMEDONC 03-06 21:40
PROVIDERS: ADMIT Internal Medicine; ATTEND Internal Medicine
PROC: 0W993ZX Drainage of Right Pleural Cavity, Percutaneous Approach, Diagnostic (ICD-10-PCS; principal; 2022-03-02)
PROC: 02HV33Z Insertion of Infusion Device into Superior Vena Cava, Percutaneous Approach (ICD-10-PCS; 2022-03-05)
DX: J94.0 Chylous effusion (principal); J18.9 Pneumonia, unspecified organism; J96.01 Acute respiratory failure with hypoxia; J44.0 Chronic obstructive pulmonary disease with (acute) lower respiratory infection; L03.115 Cellulitis of right lower limb; M86.171 Other acute osteomyelitis, right ankle and foot; E11.69 Type 2 diabetes mellitus with other specified complication; E11.628 Type 2 diabetes mellitus with other skin complications; E11.65 Type 2 diabetes mellitus with hyperglycemia; E11.649 Type 2 diabetes mellitus with hypoglycemia without coma; E11.621 Type 2 diabetes mellitus with foot ulcer; E11.42 Type 2 diabetes mellitus with diabetic polyneuropathy; D50.9 Iron deficiency anemia, unspecified; E78.5 Hyperlipidemia, unspecified; F32.A Depression, unspecified; I11.0 Hypertensive heart disease with heart failure; I50.9 Heart failure, unspecified; B95.2 Enterococcus as the cause of diseases classified elsewhere; G40.909 Epilepsy, unspecified, not intractable, without status epilepticus; Z20.822 Contact with and (suspected) exposure to COVID-19; L97.519 Non-pressure chronic ulcer of other part of right foot with unspecified severity; R59.1 Generalized enlarged lymph nodes; E78.1 Pure hyperglyceridemia; R42 Dizziness and giddiness; M17.12 Unilateral primary osteoarthritis, left knee; Z79.4 Long term (current) use of insulin; Z79.84 Long term (current) use of oral hypoglycemic drugs; Z79.899 Other long term (current) drug therapy; Z83.3 Family history of diabetes mellitus; Z89.412 Acquired absence of left great toe; Z85.89 Personal history of malignant neoplasm of other organs and systems; Z80.9 Family history of malignant neoplasm, unspecified
CPT/HCPCS: 36415; 71045; 71046; 71275; 80048; 80053; 82150; 82465; 82945; 83605; 83615; 83880; 84145; 84155; 84157; 84165; 84439; 84443; 84478; 84484; 85025; 85379; 85610; 85652; 85730; 86140; 86480; 87040; 87636; 88108; 88305; 89050; 93005; 93306; 94640; 94760; 96365; 96375; 99285; 99291